=== PATIENT | male | born 1965 | race Caucasian/White ===

== ENCOUNTER 2018-08-24 02:14 | Emergency (ER) | payer OTHER ==
[~2018-08-24] VITALS: Ht 170.2 cm; Wt 102.1 kg
[~2018-08-24 02:14] MED LIST: NAPR-682 PO; ORPH100T PO
[2018-08-24] MEDS ORDERED: IV NORMAL SALINE 1000ML BAG 1,000 ML IV ONE (03:15)
[2018-08-24] MEDS ORDERED: KETOROLAC 15 MG/ML VIAL. IV ONE (03:30)
--- NOTE | 2018-08-24 03:50 | PHYS DOC ---
Past Medical History Past Medical History: Hypertension, Other Additional Past Medical Histor: SLEEP APNEA Past Surgical History: Other Additional Past Surgical Histo: WISDOM TEETH Alcohol Use: Occasionally Drug Use: None Adult General Chief Complaint Chief Complaint: FEVER HPI HPI Patient is a 52 year old male who presents with myalgias, arthralgias, fatigue and intermittent daily fever for 4 days. Patient reports fever 104 prior to ED arrival. Tylenol taken with improvement of symptoms. Patient was evaluated by his PCP on Monday and diagnosed with flulike illness. He was reevaluated 2 days ago at an urgent care and was diagnosed with an upper respiratory tract infe ction was placed on prednisone. Patient denies neck pain, stiffness, rash, sore throat, shortness of breath, abdominal pain, urinary frequency urgency dysuria, or insect bite. No other acute symptoms or complaints. Review of Systems Review of Systems Review symptoms as per history of present illness. All other systems were reviewed and found to be within normal limits, except as documented in this note. Current Medications Current Medications Current Medications Medications (Trade) Dose Ordered Sig/Noemi Start Time Stop Time Status Last Admin Dose Admin Ketorolac Tromethamine (Toradol 15mg Vial) 15 mg 1X ONCE 08/24/18 03:30 08/24/18 03:31 DC 08/24/18 03:53 15 MG Potassium Chloride (Klor-Con) 40 meq 1X ONCE 08/24/18 05:30 08/24/18 05:31 DC 08/24/18 05:34 40 MEQ Sodium Chloride 1,000 ml @ 1,000 mls/hr 1X ONCE 08/24/18 03:15 08/24/18 04:14 DC 08/24/18 03:54 1,000 MLS/HR Allergies Allergies Allergies Coded Allergies Type Severity Reaction Last Updated Verified aspirin Allergy Intermediate 02/03/16 Yes pentazocine Allergy Intermediate 02/03/16 Yes Physical Exam Physical Exam Constitutional: Well developed, well nourished, no acute distress, non-toxic appearance. [] HENT: Normocephalic, no sinus tenderness, bilateral external ears normal, oropharynx moist, nose normal. [] Eyes: PERRLA, EOMI, conjunctiva normal, no discharge. [] Neck: Normal range of motion, no tenderness, supple, no stridor. [] Cardiovascular:Heart rate regular rhythm, no murmur [] Lungs & Thorax: Bilateral breath sounds clear to auscultation [] Abdomen: Bowel sounds normal, soft, no tenderness. [] Skin: Warm, dry, no erythema, no rash. [] Back: No tenderness, no CVA tenderness. [] Extremities: No tenderness, no edema. [] Neurologic: Alert and oriented, normal motor function, normal sensory function, no focal deficits noted. [] Psychologic: Affect normal, judgement normal, mood normal. [] Current Patient Data Vital Signs Vital Signs Date Time Temp Pulse Resp B/P (MAP) Pulse Ox O2 Delivery O2 Flow Rate FiO2 08/24/18 04:57 80 117/63 (81) 94 Room Air 08/24/18 04:00 99.8 99.8 08/24/18 02:45 17 Lab Values Laboratory Tests Test 08/24/18 03:45 08/24/18 04:35 White Blood Count 7.3 x10^3/uL (4.0-11.0) Red Blood Count 5.06 x10^6/uL (4.30-5.70) Hemoglobin 14.4 g/dL (13.0-17.5) Hematocrit 42.8 % (39.0-53.0) Mean Corpuscular Volume 85 fL (79-100) Mean Corpuscular Hemoglobin 29 pg (25-35) Mean Corpuscular Hemoglobin Concent 34 g/dL (31-37) Red Cell Distribution Width 15.5 % (11.5-14.5) H Platelet Count 56 x10^3/uL (140-400) L Neutrophils (%) (Auto) 82 % (31-73) H Lymphocytes (%) (Auto) 13 % (24-48) L Monocytes (%) (Auto) 5 % (0-9) Eosinophils (%) (Auto) 0 % (0-3) Basophils (%) (Auto) 1 % (0-3) Neutrophils # (Auto) 6.0 x10^3uL (1.8-7.7) Lymphocytes # (Auto) 0.9 x10^3/uL (1.0-4.8) L Monocytes # (Auto) 0.4 x10^3/uL (0.0-1.1) Eosinophils # (Auto) 0.0 x10^3/uL (0.0-0.7) Basophils # (Auto) 0.0 x10^3/uL (0.0-0.2) Sodium Level 129 mmol/L (136-145) L Potassium Level 2.9 mmol/L (3.5-5.1) *L Chloride Level 92 mmol/L (98-107) L Carbon Dioxide Level 23 mmol/L (21-32) Anion Gap 14 (6-14) Blood Urea Nitrogen 23 mg/dL (8-26) Creatinine 1.7 mg/dL (0.7-1.3) H Estimated GFR (Cockcroft-Gault) 42.4 BUN/Creatinine Ratio 14 (6-20) Glucose Level 129 mg/dL (70-99) H Calcium Level 8.2 mg/dL (8.5-10.1) L Total Bilirubin 3.7 mg/dL (0.2-1.0) H Aspartate Amino Transferase (AST) 121 U/L (15-37) H Alanine Aminotransferase (ALT) 139 U/L (16-63) H Alkaline Phosphatase 245 U/L (46-116) H C-Reactive Protein, Quantitative 104.3 mg/L (0-3.3) H Total Protein 6.1 g/dL (6.4-8.2) L Albumin 3.1 g/dL (3.4-5.0) L Albumin/Globulin Ratio 1.0 (1.0-1.7) Heterophil Agglutinins Negative (NEGATIVE) Urine Collection Type Unknown Urine Color [place] Urine Clarity Cloudy Urine pH 6.0 Urine Specific [place] 1.020 Urine Protein 30 mg/dL (NEG-TRACE) Urine Glucose (UA) Negative mg/dL (NEG) Urine Ketones (Stick) Trace mg/dL (NEG) Urine Blood Negative (NEG) Urine Nitrite Negative (NEG) Urine Bilirubin Moderate (NEG) Urine Urobilinogen Dipstick 2.0 mg/dL (0.2 mg/dL) Urine Leukocyte Esterase Trace (NEG) Urine RBC 0 /HPF (0-2) Urine WBC 1-4 /HPF (0-4) Urine Squamous Epithelial Cells Occ /LPF Urine Transitional Epithelial Cells Occ /LPF Urine Amorphous Sediment Present /HPF Urine Bacteria 0 /HPF (0-FEW) Urine Hyaline Casts Few /HPF Urine Granular Casts Few /HPF Urine Mucus Slight /LPF Laboratory Tests 08/24/18 03:45 Laboratory Tests 08/24/18 03:45 EKG EKG [] Radiology/Procedures Radiology/Procedures [CT head: No acute findings per radiology report Chest x-ray: No acute findings per radiology report CT abdomen pelvis: No acute abnormalities per radiology report] Course & Med Decision Making Course & Med Decision Making Pertinent Labs and Imaging studies reviewed. (See chart for details) [Patient with multiple nonspecific symptoms and intermittent fever 5 days. Review of initial labs and imaging show elevation of LTs and bilirubin without evidence of discrete source of infection. Hepatitis panel ordered and will not bd run in lab for several hours.. Patient will be discharged home and results called to this morning. Instructions are to follow-up with PCP later today or Monday for reevaluation..] Dragon Disclaimer Dragon Disclaimer This electronic medical record was generated, in whole or in part, using a voice recognition dictation system. Departure Departure Impression: Primary Impression: Fever Additional Impressions: Myalgia Elevated bilirubin Hypokalemia Disposition: HOME, SELF-CARE Condition: STABLE Referrals: UNKNOWN PCP NAME (PCP) Patient Instructions: Fever, Adult, [id number], Hypokalemia-Brief Additional Instructions: Please go home and rest, increase fluids continue ibuprofen for treatment of fever and body aches. Take potassium daily for the next 3 days and follow-up with your PCP later today or Monday to review ED labs and studies and for reevaluation. Return to the ED if he develop new or worsening symptoms. Scripts Potassium Chloride (POTASSIUM CHLORIDE) 20 Meq Tablet.er 20 MEQ PO DAILY, #4 TAB.SR Prov: MICKEY MANCUSO DO 08/24/18 Problem Qualifiers MICKEY MANCUSO DO August 24, 2018 03:50
[2018-08-24 03:57] LABS: BASO % 1 % (0-3); EOS % 0 % (0-3); HEMATOCRIT 42.8 % (39.0-53.0); HEMOGLOBIN 14.4 g/dL (13.0-17.5); LYMPH # 0.9 x10^3/uL (1.0-4.8); LYMPH % 13 % (24-48); MEAN CORPUSCULAR HEMOGLOBIN 29 pg (25-35); MEAN CORPUSCULAR HGB CONC 34 g/dL (31-37); MEAN CORPUSCULAR VOLUME 85 fL (79-100); MONO # 0.4 x10^3/uL (0.0-1.1); MONO % 5 % (0-9); NEUT % 82 % (31-73); PLATELET COUNT 56 x10^3/uL (140-400); RED BLOOD COUNT 5.06 x10^6/uL (4.30-5.70); RED CELL DISTRIBUTION WIDTH 15.5 % (11.5-14.5); WHITE BLOOD COUNT 7.3 x10^3/uL (4.0-11.0)
--- NOTE | 2018-08-24 03:58 | RAD ---
RS Compliance Statement: One or more of the following individualized dose reduction techniques were utilized for this examination: 1. Automated exposure control 2. Adjustment of the mA and/or kV according to patient size 3. Use of iterative reconstruction technique CT HEAD WITHOUT CONTRAST History: Fever. Comparison: None. Procedure: Axial images are obtained of the head from the skull base through the vertex without IV contrast. Findings: The ventricles and sulci are normal for the patient's age. No mass-effect, midline shift, hemorrhage, extra-axial fluid collection, or obvious acute infarction is identified. Basilar cisterns are patent. Bone windows demonstrate no acute calvarial abnormality. The visualized paranasal sinuses are clear. Mastoid air cells are well aerated. IMPRESSION: No acute intracranial abnormality. Electronically signed by: Shan Linares MD (08/24/2018 3:55 AM) [facility]
--- NOTE | 2018-08-24 04:04 | RAD ---
CHEST AP ONLY Clinical Indication: Fever Comparison: None. Findings: The cardiomediastinal silhouette is normal. Lungs are clear. There is no pneumothorax. No pleural effusion is appreciated. No acute bone abnormality. IMPRESSION: No acute cardiopulmonary process. Electronically signed by: Shan Linares MD (08/24/2018 4:01 AM) [facility]
[2018-08-24 04:43] LABS: BILIRUBIN,URINE MODERATE (NEG); CLARITY,URINE CLOUDY; COLOR,URINE ORANGE; NITRITE,URINE NEGATIVE (NEG); PROTEIN,URINE 30 mg/dL (NEG-TRACE)
[2018-08-24 04:48] LABS: ALBUMIN 3.1 g/dL (3.4-5.0); C-REACTIVE PROTEIN 104.3 mg/L (0-3.3); CALCIUM 8.2 mg/dL (8.5-10.1); CREATININE 1.7 mg/dL (0.7-1.3); GFR 42.4; TOTAL BILIRUBIN 3.7 mg/dL (0.2-1.0); TOTAL PROTEIN 6.1 g/dL (6.4-8.2)
[2018-08-24 04:49] LABS: POTASSIUM 2.9 mmol/L (3.5-5.1)
[2018-08-24 04:54] LABS: BACTERIA,URINE 0 /HPF (0-FEW); RBC,URINE 0 /HPF (0-2); SQUAMOUS EPITHELIAL CELL,UR OCC /LPF
[2018-08-24 04:55] LABS: AMORPHOUS SEDIMENT,UR PRESENT /HPF; GRANULAR CASTS,URINE FEW /HPF; HYALINE CASTS, URINE FEW /HPF
[2018-08-24 05:22] LABS: MONONUCLEOSIS PATIENT NEGATIVE (NEGATIVE)
[2018-08-24] MEDS ORDERED: POTASSIUM CHLORIDE 20 MEQ TABLET.ER. PO ONE (05:30)
--- NOTE | 2018-08-24 05:43 | RAD ---
PQRS Compliance Statement: One or more of the following individualized dose reduction techniques were utilized for this examination: 1. Automated exposure control 2. Adjustment of the mA and/or kV according to patient size 3. Use of iterative reconstruction technique CT ABDOMEN PELVIS WO CONTRAST Clinical Indication: Abdominal pain, fever. Comparison: None. Technique: Helical CT imaging of the abdomen and pelvis is performed without IV or oral contrast. Findings: Evaluation of solid organs and bowel is limited without oral and IV contrast, decreasing sensitivity for detection of pathology. Mild atelectasis in the bilateral lower lobes. Small bulla are seen in the lung bases. Calcified granuloma left lower lobe. Cardiac size normal. Calcified granulomas in the liver and spleen. Minimal fatty infiltration of the liver. Gallbladder is contracted. Pancreas, adrenal glands, and abdominal aorta caliber are normal. There are multiple subcentimeter retroperitoneal lymph nodes. No renal or ureteral calculus. No hydronephrosis. Stomach unremarkable. No dilated small bowel. No colon wall thickening. The appendix is normal. No abdominal adenopathy or free fluid. Bilateral inguinal lymph nodes may be reactive. Urinary bladder is normal. Prostate and seminal vesicles are normal. No pelvic free fluid. Vacuum disc phenomenon L4/L5. Left osteitis pubis. IMPRESSION: 1. No acute abdominal or pelvic abnormality. 2. Minimal fatty infiltration of the liver. 3. Mild atelectasis in the bilateral lower lobes. Electronically signed by: Shan Linares MD (08/24/2018 5:40 AM) [facility]
[2018-08-24 06:02] VITALS: BP 123/56
[2018-08-24] MEDS ORDERED: POTA20TA82 PO (06:07)
== END 2018-08-24 06:15 | disposition home or self-care (01) ==
LOC: ER 02:14
DX: M79.10 Myalgia, unspecified site (principal); R53.83 Other fatigue; R50.9 Fever, unspecified; E80.7 Disorder of bilirubin metabolism, unspecified; E87.6 Hypokalemia; I10 Essential (primary) hypertension; J98.11 Atelectasis; Z88.6 Allergy status to analgesic agent
CPT/HCPCS: 36415; 70450; 71045; 74176; 80053; 81001; 85025; 86140; 86308; 86705; 86709; 86803; 87086; 87340; 96374; 99285; J1885; J7030

== ENCOUNTER 2018-08-25 18:42 | Inpatient (IN) | payer OTHER ==
[~2018-08-25] VITALS: Ht 172.7 cm; Wt 107.2 kg
[~2018-08-25 18:42] MED LIST changes: +POTA20TA82 PO
[2018-08-25] MEDS ORDERED: IV NORMAL SALINE 1000ML BAG 1,000 ML IV ONE ×4 (19:15→21:15)
[2018-08-25] MEDS ORDERED: IBUPROFEN 200 MG TABLET. PO ONE (19:45)
[2018-08-25 20:05] LABS: BASO % 0 % (0-3); EOS % 0 % (0-3); HEMATOCRIT 40.8 % (39.0-53.0); LYMPH # 0.1 x10^3/uL (1.0-4.8); LYMPH % 1 % (24-48); MEAN CORPUSCULAR HEMOGLOBIN 30 pg (25-35); MEAN CORPUSCULAR HGB CONC 34 g/dL (31-37); MEAN CORPUSCULAR VOLUME 86 fL (79-100); MONO # 0.1 x10^3/uL (0.0-1.1); MONO % 2 % (0-9); NEUT # 6.1 x10^3uL (1.8-7.7); NEUT % 97 % (31-73); RED BLOOD COUNT 4.74 x10^6/uL (4.30-5.70); RED CELL DISTRIBUTION WIDTH 15.7 % (11.5-14.5); WHITE BLOOD COUNT 6.2 x10^3/uL (4.0-11.0)
[2018-08-25 20:13] LABS: PROTHROMBIN TIME PATIENT 13.4 SEC (11.7-14.0)
[2018-08-25 20:22] LABS: PLATELET COUNT 17 x10^3/uL (140-400)
[2018-08-25 20:26] LABS: % BANDS 24 % (0-9); % LYMPHS 5 % (24-48); % METAS 3 % (0-0); % SEGS 68 % (35-66); PLT ESTIMATE DECREASED (ADEQUATE)
[2018-08-25 20:27] LABS: CALCIUM 7.6 mg/dL (8.5-10.1); CREATININE 3.9 mg/dL (0.7-1.3); GFR 16.3; POTASSIUM 3.7 mmol/L (3.5-5.1)
[2018-08-25 20:29] LABS: TOXIC GRANULATION SLIGHT; TOXIC VACUOLATION MOD
[2018-08-25 20:30] LABS: MONONUCLEOSIS PATIENT NEGATIVE (NEGATIVE)
[2018-08-25] MEDS ORDERED: cefTRIAXone IV Push 1 GM VIAL. IVP ONE (20:30)
[2018-08-25 20:31] LABS: ALBUMIN 2.5 g/dL (3.4-5.0); ALBUMIN/GLOBULIN RATIO 0.7 (1.0-1.7); MAGNESIUM 1.3 mg/dL (1.8-2.4); TOTAL BILIRUBIN 4.7 mg/dL (0.2-1.0)
[2018-08-25 20:55] LABS: INFLUENZA A PATIENT NEGATIVE (NEGATIVE); INFLUENZA B PATIENT NEGATIVE (NEGATIVE)
[2018-08-25] MEDS ORDERED: AZTREONAM IV Push 2 GM VIAL. IVP ONE (21:15)
[2018-08-25] MEDS ORDERED: ACETAMINOPHEN 325 MG TABLET. PO PRN (21:15)
[2018-08-25] MEDS ORDERED: ONDANSETRON PF 4 MG/2 ML VIAL. IV PRN (21:15)
[2018-08-25] MEDS ORDERED: MAGNESIUM SULFATE 2GM 50 ML IV ONE (21:15)
[2018-08-25] MEDS ORDERED: PIPERACILLIN/TAZOBACTAM 4.5 GM in IV NORMAL SALINE 100ML 100 ML IV ONE (21:15)
[2018-08-25] MEDS ORDERED: VANCOMYCIN 2 GM in IV NORMAL SALINE 500ML BAG 500 ML IV ONE (21:30)
[2018-08-25] MEDS ORDERED: MEROPENEM 500 MG in IV NORMAL SALINE 50ML 50 ML IV ONE (22:00)
--- NOTE | 2018-08-25 22:19 | PHYS DOC ---
Past Medical History Past Medical History: Hypertension, Other Additional Past Medical Histor: SLEEP APNEA, DDD, Hemochromatosis Past Surgical History: Other Additional Past Surgical Histo: WISDOM TEETH Additional Information: Nonsmoker Alcohol Use: Occasionally Drug Use: None Adult General Chief Complaint Chief Complaint: MULTIPLE COMPLAINTS HPI HPI Patient is a 52 year old male who presents with fever and diarrhea and confusion for the past 48 hours. In addition, the patient has had ongoing fever and cough for the past 2 weeks. Patient was prescribed prednisone at urgent care on Monday and diagnosed with a upper respiratory tract infection. Patient presented to [facility] emergency department on 08/24/18 for continued fever, myalgias, and arthralgias. Head and pelvis CT along with chest x-ray without acute process at that time. Patient was hypokalemic and given potassium supplementation which he subsequently vomited after leaving the emergency department. Patient's reports increased confusion today evidenced by inappropriate responses to many of her questions. Patient is in mild lower abdominal pain at this time. Review of systems is positive for shortness of breath, dry cough and oliguria with dark urine which the patient states has gotten worse over the last 24 hours. Patient admits to a tick bite 2-3 weeks ago. In addition, patient admits to a systemic rash s/p exposure to poison [place] that occurred 2 weeks ago for which patient was seen at [facility]. Patient also report recent treatment with Bactrim. Denies known sick contacts. Review of Systems Review of Systems Constitutional: Reports fever and chills on going for 2-3 weeks.] Eyes: Denies change in visual acuity, redness, or eye pain [] HENT: Mild sore throat and congestion.[] Respiratory: Endorses dry cough and shortness of breath [] Cardiovascular: Denies any chest pain or palpitations. GI: Endorses diarrhea for 1 week. 1 episode of non-bloody vomitus. : Denies dysuria or hematuria [] Musculoskeletal: Denies back pain or joint pain [] Integument: Denies any current rash or skin lesions [] Neurologic: Denies headache, focal weakness or sensory changes [] Complete systems were reviewed and found to be within normal limits, except as documented in this note. Current Medications Current Medications Current Medications Medications (Trade) Dose Ordered Sig/Noemi Start Time Stop Time Status Last Admin Dose Admin Ceftriaxone Sodium (Rocephin) 1 gm 1X ONCE 08/25/18 20:30 08/25/18 20:31 DC 08/25/18 20:36 1 GM Ibuprofen (Motrin) 600 mg 1X ONCE 08/25/18 19:45 08/25/18 19:49 DC 08/25/18 20:38 600 MG Sodium Chloride 1,000 ml @ 1,000 mls/hr 1X ONCE 08/25/18 21:00 08/25/18 21:59 DC 08/25/18 23:51 1,000 MLS/HR Allergies Allergies Allergies Coded Allergies Type Severity Reaction Last Updated Verified aspirin Allergy Intermediate 02/03/16 Yes pentazocine Allergy Intermediate 02/03/16 Yes Physical Exam Physical Exam Constitutional: 52 yo male appears uncomfortable and ill, HENT: Normocephalic, atraumatic, bilateral TMs normal, oropharynx moist, no oral exudates, nose normal. [] Eyes: EOMI, conjunctiva normal, no discharge. [] Neck: Full ROM, no meningeal signs Cardiovascular: Tachypnea. Heart rate regular rhythm, no murmur [] Lungs & Thorax: Bilateral breath sounds clear to auscultation [] Abdomen: Soft, no tenderness, no masses, no pulsatile masses. [] Skin: Warm, clammy. no erythema, no rash. [] Extremities: No tenderness, ROM intact, no edema. [] Neurologic: Alert and oriented X 3, normal motor function, normal sensory function, no focal deficits noted. [] Psychologic: Affect normal, judgement normal, mood normal. [] Current Patient Data Vital Signs Vital Signs Date Time Temp Pulse Resp B/P (MAP) Pulse Ox O2 Delivery O2 Flow Rate FiO2 08/25/18 19:01 100.3 84 28 123/56 (78) 94 Room Air 100.3 Lab Values Laboratory Tests Test 08/25/18 19:45 08/25/18 20:28 08/25/18 20:30 White Blood Count 6.2 x10^3/uL (4.0-11.0) Red Blood Count 4.74 x10^6/uL (4.30-5.70) Hemoglobin 14.0 g/dL (13.0-17.5) Hematocrit 40.8 % (39.0-53.0) Mean Corpuscular Volume 86 fL (79-100) Mean Corpuscular Hemoglobin 30 pg (25-35) Mean Corpuscular Hemoglobin Concent 34 g/dL (31-37) Red Cell Distribution Width 15.7 % (11.5-14.5) H Platelet Count 17 x10^3/uL (140-400) *L Neutrophils (%) (Auto) 97 % (31-73) H Lymphocytes (%) (Auto) 1 % (24-48) L Monocytes (%) (Auto) 2 % (0-9) Eosinophils (%) (Auto) 0 % (0-3) Basophils (%) (Auto) 0 % (0-3) Neutrophils # (Auto) 6.1 x10^3uL (1.8-7.7) Lymphocytes # (Auto) 0.1 x10^3/uL (1.0-4.8) L Monocytes # (Auto) 0.1 x10^3/uL (0.0-1.1) Eosinophils # (Auto) 0.0 x10^3/uL (0.0-0.7) Basophils # (Auto) 0.0 x10^3/uL (0.0-0.2) Segmented Neutrophils % 68 % (35-66) H Band Neutrophils % 24 % (0-9) H Lymphocytes % 5 % (24-48) L Metamyelocytes % 3 % (0-0) H Toxic Granulation Slight Toxic Vacuolation Mod Platelet Estimate Decreased (ADEQUATE) Erythrocyte Sedimentation Rate 11 (0-15) Prothrombin Time 13.4 SEC (11.7-14.0) Prothrombin Time INR 1.1 (0.8-1.1) PTT 38 SEC (24-38) Sodium Level 128 mmol/L (136-145) L Potassium Level 3.7 mmol/L (3.5-5.1) Chloride Level 91 mmol/L (98-107) L Carbon Dioxide Level 20 mmol/L (21-32) L Anion Gap 17 (6-14) H Blood Urea Nitrogen 45 mg/dL (8-26) H Creatinine 3.9 mg/dL (0.7-1.3) H Estimated GFR (Cockcroft-Gault) 16.3 BUN/Creatinine Ratio 12 (6-20) Glucose Level 94 mg/dL (70-99) Lactic Acid Level 5.3 mmol/L (0.4-2.0) *H Calcium Level 7.6 mg/dL (8.5-10.1) L Magnesium Level 1.3 mg/dL (1.8-2.4) L Total Bilirubin 4.7 mg/dL (0.2-1.0) H Aspartate Amino Transferase (AST) 233 U/L (15-37) H Alanine Aminotransferase (ALT) 127 U/L (16-63) H Alkaline Phosphatase 215 U/L (46-116) H Ammonia < 10 mcmol/L (11-34) L Lactate Dehydrogenase 1240 U/L (85-227) H Creatine Kinase 284 U/L (39-308) Creatine Kinase MB (Mass) 1.7 ng/mL (0.0-3.6) Creatine Kinase MB Relative Index 0.6 % (0-4) Troponin I Quantitative 0.111 ng/mL (0.000-0.055) C-Reactive Protein, Quantitative 242.9 mg/L (0-3.3) H Total Protein 6.0 g/dL (6.4-8.2) L Albumin 2.5 g/dL (3.4-5.0) L Albumin/Globulin Ratio 0.7 (1.0-1.7) L Lipase 425 U/L (73-393) H Ethyl Alcohol Level < 10 mg/dL (0-10) Heterophil Agglutinins Negative (NEGATIVE) Influenza Type A Antigen Negative (NEGATIVE) Influenza Type B Antigen Negative (NEGATIVE) Group A Streptococcus Rapid Negative (NEGATIVE) Laboratory Tests 08/25/18 19:45 Laboratory Tests 08/25/18 19:45 EKG EKG 08/25/2018 @19:22 showed sinus rhythm at 85bpm. No St elevations or other abnormalities. Radiology/Procedures Radiology/Procedures 2 view chest x ray ordered. (preliminary reading by ED physician shows bibasilar atelectasis. No consolidations or effusions appreciated.) Course & Med Decision Making Course & Med Decision Making Mr. Kirk is a 52 yo male who presents with 2 weeks of on going fever, confusion, and other intermittent flu-like symptoms. Patient appeared dehydrated and short of breath on presentation. Patient recently seen for same in early AM on 08/24/18. Previous workup reviewed. Labs demonstrated with bandemia, se sav thrombocytopenia, worsening renal function, elevated LFTs/bilirubin, and elevated LDH. Upon further questioning, patient admitted to tick bite 2-3 weeks ago and a systemic rash 2 weeks that was originally attributed to poison [place] exposure. SIRS criteria met. Lactic acid >4. No definitive source of infection but given worsening condition now with multiple organ systems affected. Empiric antibiotic given with Rocephin, Vanco, and Aztreonam. Patient met criteria for septic shock criteria. BP stable. Patient requiring ICU admission for further evaluation and treatment. Discussed with Dr. Laboy (hospitalist) who is in agreement with admission. Discussed case with Dr. Lujan (ID) who requests Daptomycin, Doxycycline, and Meropenem. Ehrlichia panel requested and ordered. Discussed case with Dr. Flaherty (hematology) who requested repeat labs and will look at peripheral smear. Discussed findings and plan with patient and family, who acknowledge understanding and agreement. Dragon Disclaimer Dragon Disclaimer This electronic medical record was generated, in whole or in part, using a voice recognition dictation system. Departure Departure Impression: Primary Impression: Septic shock Additional Impressions: Thrombocytopenia Hypomagnesemia Elevated LFTs Acute renal failure Disposition: 09 ADMITTED INPATIENT Admitting Physician: Jose Rice Condition: GUARDED Referrals: UNKNOWN PCP NAME (PCP) Date and Time of Reassessment Date: August 25, 2018 Time: 22:15 Fluid Challenge Is the fluid challenge complet: No Vital Signs Vital Signs: Vital Signs Date Time Temp Pulse Resp B/P (MAP) Pulse Ox O2 Delivery O2 Flow Rate FiO2 08/25/18 19:01 100.3 84 28 123/56 (78) 94 Room Air 100.3 Temperature Source: Axillary Respirations Respiratory Effort: Shortness of breath Respiratory Pattern: Hyperpnea Cardiovascular Pulse Rhythm: Regular Heart: Nml rate, reg. rhythm Lung Sounds Breath Sounds: Clear Capillary Refil Capillary Refill: Lt Hand > 3 seconds Peripheral Pulse Pulse Location: Radial Pulse Strength: Normal (2+) Pulse Assessment Method: Monitor Integumentary Skin: Warm Skin Moisture: Clammy Skin Turgor: Normal Skin Color: warm, dry, moist Fingernail Color: WNL Critical Care Time Critical care time was 45 minutes which includes time at bedside, spent in discussion of patient's care with specialists and/or family members, with interpretation of laboratory and/or radiological studies and is exclusive of procedures. Problem Qualifiers Additional Impressions: Acute renal failure Acute renal failure type: unspecified Qualified Codes: N17.9 - Acute ki dney failure, unspecified KAVYA CARPENTER DO August 25, 2018 22:19
[2018-08-25 22:31] LABS: BILIRUBIN,URINE MODERATE (NEG); CLARITY,URINE CLOUDY; COLOR,URINE AMBER; NITRITE,URINE NEGATIVE (NEG); PH,URINE 5.5; PROTEIN,URINE 100 mg/dL (NEG-TRACE)
[2018-08-25 22:36] LABS: BARBITURATES NEG (NEG); BENZODIAZEPINES NEG (NEG); CANNABINOIDS NEG (NEG); COCAINE NEG (NEG); METHADONE NEG (NEG); OPIATES NEG (NEG); PHENCYCLIDINE NEG (NEG)
[2018-08-25 22:38] LABS: AMPHETAMINE/METHAMPHETAMINE NEG (NEG)
[2018-08-25 22:39] LABS: AMORPHOUS SEDIMENT,UR PRESENT /HPF; BACTERIA,URINE 0 /HPF (0-FEW); RBC,URINE OCC /HPF (0-2); SQUAMOUS EPITHELIAL CELL,UR OCC /LPF; WBC,URINE OCC /HPF (0-4)
[2018-08-25 22:45] VITALS: BP 136/62
--- NOTE | 2018-08-25 22:45 | NUR ---
pt admitted to room 110 from ED at this time, accompanied by . pt has moments of confusion and mumbling sentences that don't make sense, which is new this admission. with help of , able to complete admission requirements without difficulty. VSS, on room air. 3rd liter of NS and IV Mag given upon admission to ICU, not given in ED. pt and oriented to room, call light, unit routines, diet, medications and plan of care; both voice understanding. since pt's new onset confusion, is opting to stay overnight. will pass on in report, will continue to closely monitor.
[2018-08-26] VITALS (23 sets, daily range): BP systolic 89–142; BP diastolic 46–72
[2018-08-26] MEDS ORDERED: FEXO180T81 PO (03:19)
[2018-08-26] MEDS ORDERED: PRED20TA PO (03:19)
[2018-08-26] MEDS ORDERED: HYDR12.58 PO (03:19)
[2018-08-26 03:40] LABS: BASO % 0 % (0-3); EOS % 0 % (0-3); HEMATOCRIT 39.3 % (39.0-53.0); HEMOGLOBIN 13.3 g/dL (13.0-17.5); LYMPH # 0.1 x10^3/uL (1.0-4.8); LYMPH % 2 % (24-48); MEAN CORPUSCULAR HEMOGLOBIN 29 pg (25-35); MEAN CORPUSCULAR HGB CONC 34 g/dL (31-37); MEAN CORPUSCULAR VOLUME 86 fL (79-100); MONO % 1 % (0-9); NEUT # 6.4 x10^3uL (1.8-7.7); NEUT % 98 % (31-73); RED BLOOD COUNT 4.57 x10^6/uL (4.30-5.70); RED CELL DISTRIBUTION WIDTH 15.9 % (11.5-14.5); WHITE BLOOD COUNT 6.5 x10^3/uL (4.0-11.0)
[2018-08-26 03:48] LABS: PLATELET COUNT 17 x10^3/uL (140-400)
[2018-08-26 03:49] LABS: PROTHROMBIN TIME PATIENT 14.2 SEC (11.7-14.0)
[2018-08-26 03:57] LABS: ALBUMIN 2.1 g/dL (3.4-5.0); ALBUMIN/GLOBULIN RATIO 0.7 (1.0-1.7); CALCIUM 6.8 mg/dL (8.5-10.1); CREATININE 4.7 mg/dL (0.7-1.3); DIRECT BILIRUBIN 4.2 mg/dL (0.0-0.2); GFR 13.1; POTASSIUM 3.5 mmol/L (3.5-5.1); TOTAL BILIRUBIN 4.7 mg/dL (0.2-1.0); TOTAL PROTEIN 5.3 g/dL (6.4-8.2)
--- NOTE | 2018-08-26 05:10 | PDOC2 ---
CONSULT Date of Consult Date of Consult DATE: 08/26/18 TIME: 04:37 Reason for Consult Reason for Consult: Thrombocytopenia/Renal failure and elevated LFT's Referring Physician Referring Physician: Dr. Lantigua Source Source: Caregiver, Chart review, Patient History of Present Illness Reason for Visit: 52 yo male with pmh sig of hemochromatosis, KIKI, and HTN presented to the hospital with fevers for about 1 week. He states taht about 1 week ago he was more tired and fatigue. On 's Day he had a fever of 101. Monday afternoon, he saw his primary and was tested for the flu that was negative, but did not have anyother blood drawn. He was instructed to take Ibuprofen alternating with Tylenol for the fever. He did that and Monday did not have a fever. On Monday he states that he had a severe headache and states in hindsight the entire few days prior it was apparent but seemed worse on . He went to Urgent care in [place] and was given prednisone 20mg X5 days at that time. He states that bloodwork was performed but does not know of any of the results. , he went to work with a mild headache and was tired and fatigued, but shortly after diner he went to bed. night, he was found to have a fever of 104 and took ibuprofen with it improving in an hour to 103. Monday he presented to the ED at [facility] and was evaluated. He had a cbc that showed a wbc of 7.3, hgb 14/4 and plt count of 56. His potassium was low at 2.9 and adminstered potassium. Also on labs his bilirubin was 3.7 with AST 121, ALT 139, ALK phos 245. Hepatitis b and c were tested and negative. [place] and Flue were tested and negative as well. CT Abd/pelvis without contrast was performed and there were no acute findings with minimal fatty liver and a contracted gallbladder. He was discharged and returned on Monday (08/25) a repeat cbc was performed that showed his wbc of 6.2, hgb 14 and plt count 17, coags were normal with elevated LFT's. His bili w as 4.7, AST 233, ALT 127, ALK phos 215 with lipase 425. He was started on broad spectrum abx and admitted. With the low plt count, I was called to evaluate. At the time I spoke with Dr. Lantigua and asked an LDH be ordered which was elevated at 1240 and I came into evaluate him. I asked Dr. Lantigua to repeat his cbc, cmp, coags, direct bilirubin as I was coming in. The patient also stated that on Monday, he had several loose stools and denies any blood in the stool. He states that about 3 weeks ago he developed a rash on his Left lower extremity that he thinks was poison Lexie. He states that the rash spread across his body and was given Bactrim for treatment. He denies any previous exposure to Bactrim and any other new medications except the prednisone, frequent ibuprofen and tylenol recently. For the hemochromatosis, he follows with Dr. Iverson at [facility] and has been undergoing phlebotomy. His last phlebotomy was in late June. Past Medical History Past Medical History KIKI Hemochromatosis HTN Cardiovascular: HTN Pulmonary: No pertinent hx GI: No pertinent hx Heme/Onc: Hemochromatosis Hepatobiliary: No pertinent hx Family History Family History Dad with hemochromatosis, of inoperable brain tumor Social History Social History Lives at home with and three sons. 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 He denies any etoh, drugs and smoking Current Medications Current Medications Current Medications Sodium Chloride 1,000 ml @ 1,000 mls/hr 1X ONCE IV Last administered on 08/25/18 20:38; Start 08/25/18 at 19:15; Stop 08/25/18 at 20:14; Status DC Ibuprofen (Motrin) 600 mg 1X ONCE PO Last administered on 08/25/18 20:38; Start 08/25/18 at 19:45; Stop 08/25/18 at 19:49; Status DC Sodium Chloride 1,000 ml @ 1,000 mls/hr 1X ONCE IV Last administered on 08/25/18 20:30; Start 08/25/18 at 20:30; Stop 08/25/18 at 21:29; Status DC Ceftriaxone Sodium (Rocephin) 1 gm 1X ONCE IVP Last administered on 08/25/18at 20:36; Start 08/25/18 at 20:30; Stop 08/25/18 at 20:31; Status DC Vancomycin HCl 2 gm/Sodium Chloride 500 ml @ 250 mls/hr 1X ONCE IV Last administered on 08/25/18at 23:10; Start 08/25/18 at 21:30; Stop 08/25/18 at 23:29; Status DC Sodium Chloride 1,000 ml @ 1,000 mls/hr 1X ONCE IV Last administered on 08/25/18at 23:51; Start 08/25/18 at 21:00; Stop 08/25/18 at 21:59; Status DC Piperacillin Sod/ Tazobactam Sod 4.5 gm/Sodium Chloride 100 ml @ 200 mls/hr 1X ONCE IV ; Start 08/25/18 at 21:15; Stop 08/25/18 at 21:44; Status DC Aztreonam (Azactam) 2 gm 1X ONCE IVP Last administered on 08/25/18at 21:15; Start 08/25/18 at 21:15; Stop 08/25/18 at 21:16; Status DC Magnesium Sulfate 50 ml @ 25 mls/hr 1X ONCE IV Last administered on 08/25/18at 23:51; Start 08/25/18 at 21:15; Stop 08/25/18 at 23:14; Status DC Ondansetron HCl (Zofran) 4 mg PRN Q8HRS PRN IV NAUSEA/VOMITING; Start 08/25/18 at 21:15; Stop 08/26/18 at 21:14 Acetaminophen (Tylenol) 650 mg PRN Q4HRS PRN PO FEVER; Start 08/25/18 at 21:15; Stop 08/26/18 at 21:14 Sodium Chloride 1,000 ml @ 125 mls/hr 1X ONCE IV Last administered on 08/25/18at 23:09; Start 08/25/18 at 21:15; Stop 08/26/18 at 05:14 Daptomycin 610 mg/ Sodium Chloride 50 ml @ 100 mls/hr QODAY IV ; Start 08/27/18 at 09:00 Meropenem 500 mg/ Sodium Chloride 50 ml @ 100 mls/hr 1X ONCE IV Last administered on 08/25/18at 22:12; Start 08/25/18 at 22:00; Stop 08/25/18 at 22:29; Status DC Doxycycline Hyclate 100 mg/ Dextrose 100 ml @ 50 mls/hr Q12HR IV ; Start 08/26/18 at 09:00 Active Scripts Active Potassium Chloride 20 Meq Tablet.er 20 Meq PO DAILY Orphenadrine Citrate 100 Mg Tablet.er 100 Mg PO Q12HR Anaprox Ds (Naproxen Sodium) 550 Mg Tablet 550 Mg PO Q12HR Reported Prednisone 20 Mg Tablet 1 Tab PO DAILY Hydrochlorothiazide Tablet (Hydrochlorothiazide) 12.5 Mg Tablet 12.5 Mg PO DAILY Shilpi Allergy (Fexofenadine Hcl) 180 Mg Tablet 1 Tab PO DAILY Allergies Allergies: Coded Allergies: aspirin (Verified Allergy, Intermediate, 02/03/16) pentazocine (Verified Allergy, Intermediate, 02/03/16) ROS General: YES: Chills, Fatigue, Malaise PSYCHOLOGICAL ROS: No: Anxiety, Behavioral Disorder, Concentration difficultie, Decreased libido, Depression, Disorientation, Hallucinations, Hostility, Irritablity, Memory difficulties, Mood Swings, Obsessive thoughts, Physical abuse, Sexual abuse, Sleep disturbances, Suicidal ideation, Other Eyes: No Blurry vision, No Decreased vision, No Double vision, No Dry eyes, No Excessive tearing, No Eye Pain, No Itchy Eyes, No Loss of vision, No Photophobia, No Scotomata, No Uses contacts, No Uses glasses, No Other HEENT: YES: Shannan ALLERGY AND IMMUNOLOGY: No: Hives, Insect Bite Sensitivity, Itchy/Watery Eyes, Nasal Congestion, Post Nasal Drip, Seasonal Allergies, Other Hematological and Lymphatic: YES: Brusing Respiratory: No: Cough, Hemoptysis, Orthopnea, Pleuritic Pain, Shortness of breath, SOB with excertion, Sputum Changes, Stridor, Tachypnea, Wheezing, Other Cardiovascular: No Chest Pain, No Palpitations, No Orthopnea, No Paroxysmal Noc. Dyspnea, No Edema, No Lt Headedness, No Other Gastrointestinal: Yes Diarrhea Genitourinary: No Dysuria, No Frequency, No Incontinence, No Hematuria, No Retention, No Discharge, No Urgency, No Pain, No Flank Pain, No Other, No , No , No , No , No , No , No Musculoskeletal: No Gait Disturbance, No Joint Pain, No Joint Stiffness, No Joint Swelling, No Muscle Pain, No Muscular Weakness, No Pain In:, No Swelling In:, No Other Neurological: No Behavorial Changes, No Bowel/Bladder ControlChng, No Confusion, No Dizziness, No Gait Disturbance, No Headaches, No Impaired Coord/balance, No Memory Loss, No Numbness/Tingling, No Seizures, No Speech Problems, No Tremors, No Visual Changes, No Weakness, No Other Skin: No Dry Skin, No Eczema, No Hair Changes, No Lumps, No Mole Changes, No Mottling, No Nail Changes, No Pruritus, No Rash, No Skin Lesion Changes, No Other, No Acne Physical Exam General: Alert, Oriented X3, Cooperative HEENT: PERRLA, Other (Mucos membranes are extremely dry, no obvious petechiae in mouth) Lungs: Clear to auscultation Heart: Regular rate, Normal S1, Normal S2 Abdomen: Normal bowel sounds, Soft, No tenderness Skin: Other (healing rash and excoriations on Left lower extremity. No obvious petechiae) Psych/Mental Status: Mental status NL Vitals VITALS Vital Signs Date Time Temp Pulse Resp B/P (MAP) Pulse Ox O2 Delivery O2 Flow Rate FiO2 08/26/18 04:00 99.0 85 27 114/67 (83) 93 Room Air 99.0 Labs Labs Laboratory Tests Test 08/25/18 19:45 08/25/18 20:28 08/25/18 22:22 08/26/18 00:15 White Blood Count 6.2 x10^3/uL (4.0-11.0) Red Blood Count 4.74 x10^6/uL (4.30-5.70) Hemoglobin 14.0 g/dL (13.0-17.5) Hematocrit 40.8 % (39.0-53.0) Mean Corpuscular Volume 86 fL (79-100) Mean Corpuscular Hemoglobin 30 pg (25-35) Mean Corpuscular Hemoglobin Concent 34 g/dL (31-37) Red Cell Distribution Width 15.7 % (11.5-14.5) Platelet Count 17 x10^3/uL (140-400) Neutrophils (%) (Auto) 97 % (31-73) Lymphocytes (%) (Auto) 1 % (24-48) Monocytes (%) (Auto) 2 % (0-9) Eosinophils (%) (Auto) 0 % (0-3) Basophils (%) (Auto) 0 % (0-3) Neutrophils # (Auto) 6.1 x10^3uL (1.8-7.7) Lymphocytes # (Auto) 0.1 x10^3/uL (1.0-4.8) Monocytes # (Auto) 0.1 x10^3/uL (0.0-1.1) Eosinophils # (Auto) 0.0 x10^3/uL (0.0-0.7) Basophils # (Auto) 0.0 x10^3/uL (0.0-0.2) Segmented Neutrophils % 68 % (35-66) Band Neutrophils % 24 % (0-9) Lymphocytes % 5 % (24-48) Metamyelocytes % 3 % (0-0) Toxic Granulation Slight Toxic Vacuolation Mod Platelet Estimate Decreased (ADEQUATE) Erythrocyte Sedimentation Rate 11 (0-15) Prothrombin Time 13.4 SEC (11.7-14.0) Prothromb Time International Ratio 1.1 (0.8-1.1) Activated Partial Thromboplast Time 38 SEC (24-38) Sodium Level 128 mmol/L (136-145) Potassium Level 3.7 mmol/L (3.5-5.1) Chloride Level 91 mmol/L (98-107) Carbon Dioxide Level 20 mmol/L (21-32) Anion Gap 17 (6-14) Blood Urea Nitrogen 45 mg/dL (8-26) Creatinine 3.9 mg/dL (0.7-1.3) Estimated GFR (Cockcroft-Gault) 16.3 BUN/Creatinine Ratio 12 (6-20) Glucose Level 94 mg/dL (70-99) Lactic Acid Level 5.3 mmol/L (0.4-2.0) 5.1 mmol/L (0.4-2.0) Calcium Level 7.6 mg/dL (8.5-10.1) Magnesium Level 1.3 mg/dL (1.8-2.4) Total Bilirubin 4.7 mg/dL (0.2-1.0) Aspartate Amino Transf (AST/SGOT) 233 U/L (15-37) Alanine Aminotransferase (ALT/SGPT) 127 U/L (16-63) Alkaline Phosphatase 215 U/L (46-116) Ammonia < 10 mcmol/L (11-34) Lactate Dehydrogenase 1240 U/L (85-227) Creatine Kinase 284 U/L (39-308) Creatine Kinase MB (Mass) 1.7 ng/mL (0.0-3.6) Creatine Kinase MB Relative Index 0.6 % (0-4) Troponin I Quantitative 0.111 ng/mL (0.000-0.055) 0.160 ng/mL (0.000-0.055) C-Reactive Protein, Quantitative 242.9 mg/L (0-3.3) Total Protein 6.0 g/dL (6.4-8.2) Albumin 2.5 g/dL (3.4-5.0) Albumin/Globulin Ratio 0.7 (1.0-1.7) Lipase 425 U/L (73-393) Ethyl Alcohol Level < 10 mg/dL (0-10) Heterophil Agglutinins Negative (NEGATIVE) Influenza Type A Antigen Negative (NEGATIVE) Influenza Type B Antigen Negative (NEGATIVE) Urine Collection Type Unknown Urine Color Patrizia Urine Clarity Cloudy Urine pH 5.5 Urine Specific [place] 1.020 Urine Protein 100 mg/dL (NEG-TRACE) Urine Glucose (UA) Negative mg/dL (NEG) Urine Ketones (Stick) Negative mg/dL (NEG) Urine Blood Small (NEG) Urine Nitrite Negative (NEG) Urine Bilirubin Moderate (NEG) Urine Urobilinogen Dipstick 1.0 mg/dL (0.2 mg/dL) Urine Leukocyte Esterase Negative (NEG) Urine RBC Occ /HPF (0-2) Urine WBC Occ /HPF (0-4) Urine Squamous Epithelial Cells Occ /LPF Urine Transitional Epithelial Cells Occ /LPF Urine Amorphous Sediment Present /HPF Urine Bacteria 0 /HPF (0-FEW) Urine Opiates Screen Neg (NEG) Urine Methadone Screen Neg (NEG) Urine Barbiturates Neg (NEG) Urine Phencyclidine Screen Neg (NEG) Urine Amphetamine/Methamphetamine Neg (NEG) Urine Benzodiazepines Screen Neg (NEG) Urine Cocaine Screen Neg (NEG) Urine Cannabinoids Screen Neg (NEG) Urine Ethyl Alcohol Neg (NEG) Test 08/26/18 03:15 White Blood Count 6.5 x10^3/uL (4.0-11.0) Red Blood Count 4.54 x10^6/uL (4.30-5.70) Hemoglobin 13.3 g/dL (13.0-17.5) Hematocrit 39.3 % (39.0-53.0) Mean Corpuscular Volume 86 fL (79-100) Mean Corpuscular Hemoglobin 29 pg (25-35) Mean Corpuscular Hemoglobin Concent 34 g/dL (31-37) Red Cell Distribution Width 15.9 % (11.5-14.5) Platelet Count 17 x10^3/uL (140-400) Neutrophils (%) (Auto) 98 % (31-73) Lymphocytes (%) (Auto) 2 % (24-48) Monocytes (%) (Auto) 1 % (0-9) Eosinophils (%) (Auto) 0 % (0-3) Basophils (%) (Auto) 0 % (0-3) Neutrophils # (Auto) 6.4 x10^3uL (1.8-7.7) Lymphocytes # (Auto) 0.1 x10^3/uL (1.0-4.8) Monocytes # (Auto) 0.0 x10^3/uL (0.0-1.1) Eosinophils # (Auto) 0.0 x10^3/uL (0.0-0.7) Basophils # (Auto) 0.0 x10^3/uL (0.0-0.2) Absolute Reticulocyte Count 0.030 x10^6/uL (0.020-0.120) Percent Reticulocyte Count 0.7 % (0.5-2.3) Immature Reticulocyte Fraction 0.35 (0.20-0.60) Prothrombin Time 14.2 SEC (11.7-14.0) Prothromb Time International Ratio 1.1 (0.8-1.1) Activated Partial Thromboplast Time 44 SEC (24-38) Fibrinogen 319 mg/dL (200-440) D-Dimer ([place]) 12.89 ug/mlFEU (0.00-0.50) Sodium Level 129 mmol/L (136-145) Potassium Level 3.5 mmol/L (3.5-5.1) Chloride Level 94 mmol/L (98-107) Carbon Dioxide Level 16 mmol/L (21-32) Anion Gap 19 (6-14) Blood Urea Nitrogen 53 mg/dL (8-26) Creatinine 4.7 mg/dL (0.7-1.3) Estimated GFR (Cockcroft-Gault) 13.1 BUN/Creatinine Ratio 11 (6-20) Glucose Level 80 mg/dL (70-99) Lactic Acid Level 4.9 mmol/L (0.4-2.0) Calcium Level 6.8 mg/dL (8.5-10.1) Total Bilirubin 4.7 mg/dL (0.2-1.0) Direct Bilirubin 4.2 mg/dL (0.0-0.2) Aspartate Amino Transf (AST/SGOT) 288 U/L (15-37) Alanine Aminotransferase (ALT/SGPT) 127 U/L (16-63) Alkaline Phosphatase 200 U/L (46-116) Troponin I Quantitative 0.165 ng/mL (0.000-0.055) Total Protein 5.3 g/dL (6.4-8.2) Albumin 2.1 g/dL (3.4-5.0) Albumin/Globulin Ratio 0.7 (1.0-1.7) Laboratory Tests Test 08/25/18 19:45 08/25/18 20:28 08/25/18 22:22 08/26/18 00:15 White Blood Count 6.2 x10^3/uL (4.0-11.0) Red Blood Count 4.74 x10^6/uL (4.30-5.70) Hemoglobin 14.0 g/dL (13.0-17.5) Hematocrit 40.8 % (39.0-53.0) Mean Corpuscular Volume 86 fL (79-100) Mean Corpuscular Hemoglobin 30 pg (25-35) Mean Corpuscular Hemoglobin Concent 34 g/dL (31-37) Red Cell Distribution Width 15.7 % (11.5-14.5) Platelet Count 17 x10^3/uL (140-400) Neutrophils (%) (Auto) 97 % (31-73) Lymphocytes (%) (Auto) 1 % (24-48) Monocytes (%) (Auto) 2 % (0-9) Eosinophils (%) (Auto) 0 % (0-3) Basophils (%) (Auto) 0 % (0-3) Neutrophils # (Auto) 6.1 x10^3uL (1.8-7.7) Lymphocytes # (Auto) 0.1 x10^3/uL (1.0-4.8) Monocytes # (Auto) 0.1 x10^3/uL (0.0-1.1) Eosinophils # (Auto) 0.0 x10^3/uL (0.0-0.7) Basophils # (Auto) 0.0 x10^3/uL (0.0-0.2) Segmented Neutrophils % 68 % (35-66) Band Neutrophils % 24 % (0-9) Lymphocytes % 5 % (24-48) Metamyelocytes % 3 % (0-0) Toxic Granulation Slight Toxic Vacuolation Mod Platelet Estimate Decreased (ADEQUATE) Erythrocyte Sedimentation Rate 11 (0-15) Prothrombin Time 13.4 SEC (11.7-14.0) Prothromb Time International Ratio 1.1 (0.8-1.1) Activated Partial Thromboplast Time 38 SEC (24-38) Sodium Level 128 mmol/L (136-145) Potassium Level 3.7 mmol/L (3.5-5.1) Chloride Level 91 mmol/L (98-107) Carbon Dioxide Level 20 mmol/L (21-32) Anion Gap 17 (6-14) Blood Urea Nitrogen 45 mg/dL (8-26) Creatinine 3.9 mg/dL (0.7-1.3) Estimated GFR (Cockcroft-Gault) 16.3 BUN/Creatinine Ratio 12 (6-20) Glucose Level 94 mg/dL (70-99) Lactic Acid Level 5.3 mmol/L (0.4-2.0) 5.1 mmol/L (0.4-2.0) Calcium Level 7.6 mg/dL (8.5-10.1) Magnesium Level 1.3 mg/dL (1.8-2.4) Total Bilirubin 4.7 mg/dL (0.2-1.0) Aspartate Amino Transf (AST/SGOT) 233 U/L (15-37) Alanine Aminotransferase (ALT/SGPT) 127 U/L (16-63) Alkaline Phosphatase 215 U/L (46-116) Ammonia < 10 mcmol/L (11-34) Lactate Dehydrogenase 1240 U/L (85-227) Creatine Kinase 284 U/L (39-308) Creatine Kinase MB (Mass) 1.7 ng/mL (0.0-3.6) Creatine Kinase MB Relative Index 0.6 % (0-4) Troponin I Quantitative 0.111 ng/mL (0.000-0.055) 0.160 ng/mL (0.000-0.055) C-Reactive Protein, Quantitative 242.9 mg/L (0-3.3) Total Protein 6.0 g/dL (6.4-8.2) Albumin 2.5 g/dL (3.4-5.0) Albumin/Globulin Ratio 0.7 (1.0-1.7) Lipase 425 U/L (73-393) Ethyl Alcohol Level < 10 mg/dL (0-10) Heterophil Agglutinins Negative (NEGATIVE) Influenza Type A Antigen Negative (NEGATIVE) Influenza Type B Antigen Negative (NEGATIVE) Urine Collection Type Unknown Urine Color Patrizia Urine Clarity Cloudy Urine pH 5.5 Urine Specific [place] 1.020 Urine Protein 100 mg/dL (NEG-TRACE) Urine Glucose (UA) Negative mg/dL (NEG) Urine Ketones (Stick) Negative mg/dL (NEG) Urine Blood Small (NEG) Urine Nitrite Negative (NEG) Urine Bilirubin Moderate (NEG) Urine Urobilinogen Dipstick 1.0 mg/dL (0.2 mg/dL) Urine Leukocyte Esterase Negative (NEG) Urine RBC Occ /HPF (0-2) Urine WBC Occ /HPF (0-4) Urine Squamous Epithelial Cells Occ /LPF Urine Transitional Epithelial Cells Occ /LPF Urine Amorphous Sediment Present /HPF Urine Bacteria 0 /HPF (0-FEW) Urine Opiates Screen Neg (NEG) Urine Methadone Screen Neg (NEG) Urine Barbiturates Neg (NEG) Urine Phencyclidine Screen Neg (NEG) Urine Amphetamine/Methamphetamine Neg (NEG) Urine Benzodiazepines Screen Neg (NEG) Urine Cocaine Screen Neg (NEG) Urine Cannabinoids Screen Neg (NEG) Urine Ethyl Alcohol Neg (NEG) Test 08/26/18 03:15 White Blood Count 6.5 x10^3/uL (4.0-11.0) Red Blood Count 4.54 x10^6/uL (4.30-5.70) Hemoglobin 13.3 g/dL (13.0-17.5) Hematocrit 39.3 % (39.0-53.0) Mean Corpuscular Volume 86 fL (79-100) Mean Corpuscular Hemoglobin 29 pg (25-35) Mean Corpuscular Hemoglobin Concent 34 g/dL (31-37) Red Cell Distribution Width 15.9 % (11.5-14.5) Platelet Count 17 x10^3/uL (140-400) Neutrophils (%) (Auto) 98 % (31-73) Lymphocytes (%) (Auto) 2 % (24-48) Monocytes (%) (Auto) 1 % (0-9) Eosinophils (%) (Auto) 0 % (0-3) Basophils (%) (Auto) 0 % (0-3) Neutrophils # (Auto) 6.4 x10^3uL (1.8-7.7) Lymphocytes # (Auto) 0.1 x10^3/uL (1.0-4.8) Monocytes # (Auto) 0.0 x10^3/uL (0.0-1.1) Eosinophils # (Auto) 0.0 x10^3/uL (0.0-0.7) Basophils # (Auto) 0.0 x10^3/uL (0.0-0.2) Absolute Reticulocyte Count 0.030 x10^6/uL (0.020-0.120) Percent Reticulocyte Count 0.7 % (0.5-2.3) Immature Reticulocyte Fraction 0.35 (0.20-0.60) Prothrombin Time 14.2 SEC (11.7-14.0) Prothromb Time International Ratio 1.1 (0.8-1.1) Activated Partial Thromboplast Time 44 SEC (24-38) Fibrinogen 319 mg/dL (200-440) D-Dimer ([place]) 12.89 ug/mlFEU (0.00-0.50) Sodium Level 129 mmol/L (136-145) Potassium Level 3.5 mmol/L (3.5-5.1) Chloride Level 94 mmol/L (98-107) Carbon Dioxide Level 16 mmol/L (21-32) Anion Gap 19 (6-14) Blood Urea Nitrogen 53 mg/dL (8-26) Creatinine 4.7 mg/dL (0.7-1.3) Estimated GFR (Cockcroft-Gault) 13.1 BUN/Creatinine Ratio 11 (6-20) Glucose Level 80 mg/dL (70-99) Lactic Acid Level 4.9 mmol/L (0.4-2.0) Calcium Level 6.8 mg/dL (8.5-10.1) Total Bilirubin 4.7 mg/dL (0.2-1.0) Direct Bilirubin 4.2 mg/dL (0.0-0.2) Aspartate Amino Transf (AST/SGOT) 288 U/L (15-37) Alanine Aminotransferase (ALT/SGPT) 127 U/L (16-63) Alkaline Phosphatase 200 U/L (46-116) Troponin I Quantitative 0.165 ng/mL (0.000-0.055) Total Protein 5.3 g/dL (6.4-8.2) Albumin 2.1 g/dL (3.4-5.0) Albumin/Globulin Ratio 0.7 (1.0-1.7) PERIPHERAL SMEAR 08/25 RBC:Normochromic normocytic, acanthocytes seen. No schistocytes. PLTS: decreased in number. Small clumps of 2-3 plts but overall decreased in number. WBC: Neutrophils with toxic granulation and vaculation. No obvious immature cells seen PERIPHERAL SMEAR 08/26 RBC: Caleb cells seen. Normal chromic normocytic, No schistocytes. PLTS: decreased in number. No obvious clumps. WBC: no immature forms Assessment/Plan Assessment/Plan 52 yo male presents with week long history of fever and found to have thrombocytopenia, ARF, elevated LFTs 1. Fever 2. Dehydration 3. Acute renal failure 4. Elevated LFTs 5. Thrombocytopenia Given the history and constellation of symptoms, TTP is in the differential of what is going on. I reviewed his peripheral smear, both from 08/25 and 08/26 and there is no real evidence of schistocytes on either of the smears. With the bilirubin being almost all direct, and his hgb remaining stable, I do not believe that this is ttp. I agree with broad spectrum abx and continued workup for an infectious source. This certainly could also be a viral illness, or tick borne illness given a ? tick bite 3 weeks ago. I have ordered a RUQ us to further evaluate his liver and focus on his gallbladder with the elevated transaminases and hyperbilirubinemia. His cbc and coags should continue to be monitored. He should be transfused plts if his plt count <10 or he develops active bleeding. MERT GALEAS MD August 26, 2018 05:10
--- NOTE | 2018-08-26 05:38 | RAD ---
PA and lateral chest. HISTORY: Fever PA and lateral views were taken of the chest. Lungs are free of infiltrates. Heart is normal in size. There is a possible nodule or nipple shadow on the right follow-up film with nipple marker could be of benefit. There is blunting of the posterior costophrenic angles possibly small effusions. Heart is normal in size without heart failure. IMPRESSION: 1. Possible small effusions. 2. Small nodule versus nipple shadow on the right. 3. No acute infiltrates. Electronically signed by: Leonidas Westfall MD (08/26/2018 5:36 AM) [id number]
--- NOTE | 2018-08-26 08:38 | PDOC1 ---
History and Physical Date of Admission Date of Admission DATE: 08/26/18 TIME: 08:37 Identification/Chief Complaint Chief Complaint seen in er last PM WITH WORSENING SYMPTOMS Patient presented to [facility] emergency department on 08/24/18 for continued fever, myalgias, and arthralgias. Head and pelvis CT along with chest x-ray without acute process at that time. Patient was hypokalemic and given potassium supplementation which he subsequently vomited after leaving the emergency department. Patient's reports increased confusion 08/25 evidenced by inappropriate responses to many of her questions. Patient is in mild lower abdominal pain at this time. Review of systems is positive for shortness of breath, dry cough and oliguria rash last week left leg . was prescribed prednisone at urgent care on Monday and diagnosed with a upper respiratory tract infection. noted rash after tick bite, was felt to be poison [place] by [place] doctors Past Medical History Past Medical History Past Medical History Past Medical History: Hypertension, Other Additional Past Medical Histor: SLEEP APNEA, DDD, Hemochromatosis Past Surgical History: Other Additional Past Surgical Histo: WISDOM TEETH Additional Information: Nonsmoker Alcohol Use: Occasionally Drug Use: None family hx obesity Cardiovascular: HTN Pulmonary: No pertinent hx GI: No pertinent hx Heme/Onc: Hemochromatosis Hepatobiliary: No pertinent hx Family History Family History: Hypertension Social History Smoke: No ALCOHOL: occassional Drugs: None, 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, 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) Current Problem List Problem List Problems Medical Problems: (1) Acute renal failure Status: Acute Current Medications Current Medications Current Medications Sodium Chloride 1,000 ml @ 1,000 mls/hr 1X ONCE IV Last administered on 08/25/18at 20:38; Start 08/25/18 at 19:15; Stop 08/25/18 at 20:14; Status DC Ibuprofen (Motrin) 600 mg 1X ONCE PO Last administered on 08/25/18 20:38; Start 08/25/18 at 19:45; Stop 08/25/18 at 19:49; Status DC Sodium Chloride 1,000 ml @ 1,000 mls/hr 1X ONCE IV Last administered on 08/25/18at 20:30; Start 08/25/18 at 20:30; Stop 08/25/18 at 21:29; Status DC Ceftriaxone Sodium (Rocephin) 1 gm 1X ONCE IVP Last administered on 08/25/18at 20:36; Start 08/25/18 at 20:30; Stop 08/25/18 at 20:31; Status DC Vancomycin HCl 2 gm/Sodium Chloride 500 ml @ 250 mls/hr 1X ONCE IV Last administered on 08/25/18at 23:10; Start 08/25/18 at 21:30; Stop 08/25/18 at 23:29; Status DC Sodium Chloride 1,000 ml @ 1,000 mls/hr 1X ONCE IV Last administered on 08/25/18at 23:51; Start 08/25/18 at 21:00; Stop 08/25/18 at 21:59; Status DC Piperacillin Sod/ Tazobactam Sod 4.5 gm/Sodium Chloride 100 ml @ 200 mls/hr 1X ONCE IV ; Start 08/25/18 at 21:15; Stop 08/25/18 at 21:44; Status DC Aztreonam (Azactam) 2 gm 1X ONCE IVP Last administered on 08/25/18at 21:15; Start 08/25/18 at 21:15; Stop 08/25/18 at 21:16; Status DC Magnesium Sulfate 50 ml @ 25 mls/hr 1X ONCE IV Last administered on 08/25/18at 23:51; Start 08/25/18 at 21:15; Stop 08/25/18 at 23:14; Status DC Ondansetron HCl (Zofran) 4 mg PRN Q8HRS PRN IV NAUSEA/VOMITING; Start 08/25/18 at 21:15; Stop 08/26/18 at 21:14 Acetaminophen (Tylenol) 650 mg PRN Q4HRS PRN PO FEVER; Start 08/25/18 at 21:15; Stop 08/26/18 at 21:14 Sodium Chloride 1,000 ml @ 125 mls/hr 1X ONCE IV Last administered on 08/25/18at 23:09; Start 08/25/18 at 21:15; Stop 08/26/18 at 05:14; Status DC Daptomycin 610 mg/ Sodium Chloride 50 ml @ 100 mls/hr QODAY IV ; Start 08/27/18 at 09:00 Meropenem 500 mg/ Sodium Chloride 50 ml @ 100 mls/hr 1X ONCE IV Last administered on 08/25/18at 22:12; Start 08/25/18 at 22:00; Stop 08/25/18 at 22:29; Status DC Doxycycline Hyclate 100 mg/ Dextrose 100 ml @ 50 mls/hr Q12HR IV ; Start 08/26/18 at 09:00 Meropenem 500 mg/ Sodium Chloride 50 ml @ 100 mls/hr DAILY IV ; Start 08/26/18 at 09:00 Active Scripts Active Potassium Chloride 20 Meq Tablet.er 20 Meq PO DAILY Orphenadrine Citrate 100 Mg Tablet.er 100 Mg PO Q12HR Anaprox Ds (Naproxen Sodium) 550 Mg Tablet 550 Mg PO Q12HR Reported Prednisone 20 Mg Tablet 1 Tab PO DAILY Hydrochlorothiazide Tablet (Hydrochlorothiazide) 12.5 Mg Tablet 12.5 Mg PO DAILY Shilpi Allergy (Fexofenadine Hcl) 180 Mg Tablet 1 Tab PO DAILY Allergies Allergies: Coded Allergies: aspirin (Verified Allergy, Intermediate, 02/03/16) pentazocine (Verified Allergy, Intermediate, 02/03/16) ROS Review of System Review of Systems Review of Systems Constitutional: Reports fever and chills on going for 2-3 weeks.] Eyes: Denies change in visual acuity, redness, or eye pain [] HENT: Mild sore throat and congestion.[] Respiratory: Endorses dry cough and shortness of breath [] Cardiovascular: Denies any chest pain or palpitations. GI: Endorses diarrhea for 1 week. 1 episode of non-bloody vomitus. : Denies dysuria or hematuria [] Musculoskeletal: Denies back pain or joint pain [] Integument: Denies any current rash or skin lesions [] Neurologic: Denies headache, focal weakness or sensory changes [] 14 pt systems were reviewed and found to be within normal limits, except as documented General: YES: Chills, Fatigue, Malaise HEENT: YES: Heacaches Skin: Yes Rash Physical Exam Physical Exam Physical Exam Physical Exam Constitutional: 52 yo male appears uncomfortable and ill, HENT: Normocephalic, atraumatic, bilateral TMs normal, oropharynx moist, no oral exudates, nose normal. [] Eyes: EOMI, conjunctiva normal, no discharge. [] Neck: Full ROM, no meningeal signs Cardiovascular: Tachypnea. Heart rate regular rhythm, no murmur [] Lungs & Thorax: Bilateral breath sounds clear to auscultation [] Abdomen: Soft, no tenderness, no masses, no pulsatile masses. [] Skin: Warm, clammy. no erythema, no rash. [] Extremities: No tenderness, ROM intact, no edema. [] Neurologic: Alert and oriented X 3, normal motor function, normal sensory function, no focal deficits noted. [] Psychologic: Affect normal, judgement normal, mood normal. [] General: mild distress Heart: RRR Abdomen: Soft Rectal Exam: not examined Neuro: Normal speech, Cranial nerves 3-12 NL Psych/Mental Status: Mood NL Vitals Vitals Vital Signs Date Time Temp Pulse Resp B/P (MAP) Pulse Ox O2 Delivery O2 Flow Rate FiO2 08/26/18 07:00 85 17 122/70 (87) 94 Room Air 08/26/18 04:00 99.0 99.0 Labs Labs Laboratory Tests Test 08/25/18 19:45 08/25/18 20:28 08/25/18 20:30 08/25/18 22:22 White Blood Count 6.2 x10^3/uL (4.0-11.0) Red Blood Count 4.74 x10^6/uL (4.30-5.70) Hemoglobin 14.0 g/dL (13.0-17.5) Hematocrit 40.8 % (39.0-53.0) Mean Corpuscular Volume 86 fL (79-100) Mean Corpuscular Hemoglobin 30 pg (25-35) Mean Corpuscular Hemoglobin Concent 34 g/dL (31-37) Red Cell Distribution Width 15.7 % (11.5-14.5) Platelet Count 17 x10^3/uL (140-400) Neutrophils (%) (Auto) 97 % (31-73) Lymphocytes (%) (Auto) 1 % (24-48) Monocytes (%) (Auto) 2 % (0-9) Eosinophils (%) (Auto) 0 % (0-3) Basophils (%) (Auto) 0 % (0-3) Neutrophils # (Auto) 6.1 x10^3uL (1.8-7.7) Lymphocytes # (Auto) 0.1 x10^3/uL (1.0-4.8) Monocytes # (Auto) 0.1 x10^3/uL (0.0-1.1) Eosinophils # (Auto) 0.0 x10^3/uL (0.0-0.7) Basophils # (Auto) 0.0 x10^3/uL (0.0-0.2) Segmented Neutrophils % 68 % (35-66) Band Neutrophils % 24 % (0-9) Lymphocytes % 5 % (24-48) Metamyelocytes % 3 % (0-0) Toxic Granulation Slight Toxic Vacuolation Mod Platelet Estimate Decreased (ADEQUATE) Erythrocyte Sedimentation Rate 11 (0-15) Prothrombin Time 13.4 SEC (11.7-14.0) Prothromb Time International Ratio 1.1 (0.8-1.1) Activated Partial Thromboplast Time 38 SEC (24-38) Sodium Level 128 mmol/L (136-145) Potassium Level 3.7 mmol/L (3.5-5.1) Chloride Level 91 mmol/L (98-107) Carbon Dioxide Level 20 mmol/L (21-32) Anion Gap 17 (6-14) Blood Urea Nitrogen 45 mg/dL (8-26) Creatinine 3.9 mg/dL (0.7-1.3) Estimated GFR (Cockcroft-Gault) 16.3 BUN/Creatinine Ratio 12 (6-20) Glucose Level 94 mg/dL (70-99) Lactic Acid Level 5.3 mmol/L (0.4-2.0) Calcium Level 7.6 mg/dL (8.5-10.1) Magnesium Level 1.3 mg/dL (1.8-2.4) Total Bilirubin 4.7 mg/dL (0.2-1.0) Aspartate Amino Transf (AST/SGOT) 233 U/L (15-37) Alanine Aminotransferase (ALT/SGPT) 127 U/L (16-63) Alkaline Phosphatase 215 U/L (46-116) Ammonia < 10 mcmol/L (11-34) Lactate Dehydrogenase 1240 U/L (85-227) Creatine Kinase 284 U/L (39-308) Creatine Kinase MB (Mass) 1.7 ng/mL (0.0-3.6) Creatine Kinase MB Relative Index 0.6 % (0-4) Troponin I Quantitative 0.111 ng/mL (0.000-0.055) C-Reactive Protein, Quantitative 242.9 mg/L (0-3.3) Total Protein 6.0 g/dL (6.4-8.2) Albumin 2.5 g/dL (3.4-5.0) Albumin/Globulin Ratio 0.7 (1.0-1.7) Lipase 425 U/L (73-393) Ethyl Alcohol Level < 10 mg/dL (0-10) Heterophil Agglutinins Negative (NEGATIVE) Influenza Type A Antigen Negative (NEGATIVE) Influenza Type B Antigen Negative (NEGATIVE) Group A Streptococcus Rapid Negative (NEGATIVE) Urine Collection Type Unknown Urine Color Patrizia Urine Clarity Cloudy Urine pH 5.5 Urine Specific Rio 1.020 Urine Protein 100 mg/dL (NEG-TRACE) Urine Glucose (UA) Negative mg/dL (NEG) Urine Ketones (Stick) Negative mg/dL (NEG) Urine Blood Small (NEG) Urine Nitrite Negative (NEG) Urine Bilirubin Moderate (NEG) Urine Urobilinogen Dipstick 1.0 mg/dL (0.2 mg/dL) Urine Leukocyte Esterase Negative (NEG) Urine RBC Occ /HPF (0-2) Urine WBC Occ /HPF (0-4) Urine Squamous Epithelial Cells Occ /LPF Urine Transitional Epithelial Cells Occ /LPF Urine Amorphous Sediment Present /HPF Urine Bacteria 0 /HPF (0-FEW) Urine Opiates Screen Neg (NEG) Urine Methadone Screen Neg (NEG) Urine Barbiturates Neg (NEG) Urine Phencyclidine Screen Neg (NEG) Urine Amphetamine/Methamphetamine Neg (NEG) Urine Benzodiazepines Screen Neg (NEG) Urine Cocaine Screen Neg (NEG) Urine Cannabinoids Screen Neg (NEG) Urine Ethyl Alcohol Neg (NEG) Test 08/26/18 00:15 08/26/18 03:15 Lactic Acid Level 5.1 mmol/L (0.4-2.0) 4.9 mmol/L (0.4-2.0) Troponin I Quantitative 0.160 ng/mL (0.000-0.055) 0.165 ng/mL (0.000-0.055) White Blood Count 6.5 x10^3/uL (4.0-11.0) Red Blood Count 4.54 x10^6/uL (4.30-5.70) Hemoglobin 13.3 g/dL (13.0-17.5) Hematocrit 39.3 % (39.0-53.0) Mean Corpuscular Volume 86 fL (79-100) Mean Corpuscular Hemoglobin 29 pg (25-35) Mean Corpuscular Hemoglobin Concent 34 g/dL (31-37) Red Cell Distribution Width 15.9 % (11.5-14.5) Platelet Count 17 x10^3/uL (140-400) Neutrophils (%) (Auto) 98 % (31-73) Lymphocytes (%) (Auto) 2 % (24-48) Monocytes (%) (Auto) 1 % (0-9) Eosinophils (%) (Auto) 0 % (0-3) Basophils (%) (Auto) 0 % (0-3) Neutrophils # (Auto) 6.4 x10^3uL (1.8-7.7) Lymphocytes # (Auto) 0.1 x10^3/uL (1.0-4.8) Monocytes # (Auto) 0.0 x10^3/uL (0.0-1.1) Eosinophils # (Auto) 0.0 x10^3/uL (0.0-0.7) Basophils # (Auto) 0.0 x10^3/uL (0.0-0.2) Absolute Reticulocyte Count 0.030 x10^6/uL (0.020-0.120) Percent Reticulocyte Count 0.7 % (0.5-2.3) Immature Reticulocyte Fraction 0.35 (0.20-0.60) Prothrombin Time 14.2 SEC (11.7-14.0) Prothromb Time International Ratio 1.1 (0.8-1.1) Activated Partial Thromboplast Time 44 SEC (24-38) Fibrinogen 319 mg/dL (200-440) D-Dimer ([place]) 12.89 ug/mlFEU (0.00-0.50) Sodium Level 129 mmol/L (136-145) Potassium Level 3.5 mmol/L (3.5-5.1) Chloride Level 94 mmol/L (98-107) Carbon Dioxide Level 16 mmol/L (21-32) Anion Gap 19 (6-14) Blood Urea Nitrogen 53 mg/dL (8-26) Creatinine 4.7 mg/dL (0.7-1.3) Estimated GFR (Cockcroft-Gault) 13.1 BUN/Creatinine Ratio 11 (6-20) Glucose Level 80 mg/dL (70-99) Calcium Level 6.8 mg/dL (8.5-10.1) Total Bilirubin 4.7 mg/dL (0.2-1.0) Direct Bilirubin 4.2 mg/dL (0.0-0.2) Aspartate Amino Transf (AST/SGOT) 288 U/L (15-37) Alanine Aminotransferase (ALT/SGPT) 127 U/L (16-63) Alkaline Phosphatase 200 U/L (46-116) Total Protein 5.3 g/dL (6.4-8.2) Albumin 2.1 g/dL (3.4-5.0) Albumin/Globulin Ratio 0.7 (1.0-1.7) Laboratory Tests Test 08/25/18 19:45 08/25/18 20:28 08/25/18 20:30 08/25/18 22:22 White Blood Count 6.2 x10^3/uL (4.0-11.0) Red Blood Count 4.74 x10^6/uL (4.30-5.70) Hemoglobin 14.0 g/dL (13.0-17.5) Hematocrit 40.8 % (39.0-53.0) Mean Corpuscular Volume 86 fL (79-100) Mean Corpuscular Hemoglobin 30 pg (25-35) Mean Corpuscular Hemoglobin Concent 34 g/dL (31-37) Red Cell Distribution Width 15.7 % (11.5-14.5) Platelet Count 17 x10^3/uL (140-400) Neutrophils (%) (Auto) 97 % (31-73) Lymphocytes (%) (Auto) 1 % (24-48) Monocytes (%) (Auto) 2 % (0-9) Eosinophils (%) (Auto) 0 % (0-3) Basophils (%) (Auto) 0 % (0-3) Neutrophils # (Auto) 6.1 x10^3uL (1.8-7.7) Lymphocytes # (Auto) 0.1 x10^3/uL (1.0-4.8) Monocytes # (Auto) 0.1 x10^3/uL (0.0-1.1) Eosinophils # (Auto) 0.0 x10^3/uL (0.0-0.7) Basophils # (Auto) 0.0 x10^3/uL (0.0-0.2) Segmented Neutrophils % 68 % (35-66) Band Neutrophils % 24 % (0-9) Lymphocytes % 5 % (24-48) Metamyelocytes % 3 % (0-0) Toxic Granulation Slight Toxic Vacuolation Mod Platelet Estimate Decreased (ADEQUATE) Erythrocyte Sedimentation Rate 11 (0-15) Prothrombin Time 13.4 SEC (11.7-14.0) Prothromb Time International Ratio 1.1 (0.8-1.1) Activated Partial Thromboplast Time 38 SEC (24-38) Sodium Level 128 mmol/L (136-145) Potassium Level 3.7 mmol/L (3.5-5.1) Chloride Level 91 mmol/L (98-107) Carbon Dioxide Level 20 mmol/L (21-32) Anion Gap 17 (6-14) Blood Urea Nitrogen 45 mg/dL (8-26) Creatinine 3.9 mg/dL (0.7-1.3) Estimated GFR (Cockcroft-Gault) 16.3 BUN/Creatinine Ratio 12 (6-20) Glucose Level 94 mg/dL (70-99) Lactic Acid Level 5.3 mmol/L (0.4-2.0) Calcium Level 7.6 mg/dL (8.5-10.1) Magnesium Level 1.3 mg/dL (1.8-2.4) Total Bilirubin 4.7 mg/dL (0.2-1.0) Aspartate Amino Transf (AST/SGOT) 233 U/L (15-37) Alanine Aminotransferase (ALT/SGPT) 127 U/L (16-63) Alkaline Phosphatase 215 U/L (46-116) Ammonia < 10 mcmol/L (11-34) Lactate Dehydrogenase 1240 U/L (85-227) Creatine Kinase 284 U/L (39-308) Creatine Kinase MB (Mass) 1.7 ng/mL (0.0-3.6) Creatine Kinase MB Relative Index 0.6 % (0-4) Troponin I Quantitative 0.111 ng/mL (0.000-0.055) C-Reactive Protein, Quantitative 242.9 mg/L (0-3.3) Total Protein 6.0 g/dL (6.4-8.2) Albumin 2.5 g/dL (3.4-5.0) Albumin/Globulin Ratio 0.7 (1.0-1.7) Lipase 425 U/L (73-393) Ethyl Alcohol Level < 10 mg/dL (0-10) Heterophil Agglutinins Negative (NEGATIVE) Influenza Type A Antigen Negative (NEGATIVE) Influenza Type B Antigen Negative (NEGATIVE) Group A Streptococcus Rapid Negative (NEGATIVE) Urine Collection Type Unknown Urine Color Patrizia Urine Clarity Cloudy Urine pH 5.5 Urine Specific [place] 1.020 Urine Protein 100 mg/dL (NEG-TRACE) Urine Glucose (UA) Negative mg/dL (NEG) Urine Ketones (Stick) Negative mg/dL (NEG) Urine Blood Small (NEG) Urine Nitrite Negative (NEG) Urine Bilirubin Moderate (NEG) Urine Urobilinogen Dipstick 1.0 mg/dL (0.2 mg/dL) Urine Leukocyte Esterase Negative (NEG) Urine RBC Occ /HPF (0-2) Urine WBC Occ /HPF (0-4) Urine Squamous Epithelial Cells Occ /LPF Urine Transitional Epithelial Cells Occ /LPF Urine Amorphous Sediment Present /HPF Urine Bacteria 0 /HPF (0-FEW) Urine Opiates Screen Neg (NEG) Urine Methadone Screen Neg (NEG) Urine Barbiturates Neg (NEG) Urine Phencyclidine Screen Neg (NEG) Urine Amphetamine/Methamphetamine Neg (NEG) Urine Benzodiazepines Screen Neg (NEG) Urine Cocaine Screen Neg (NEG) Urine Cannabinoids Screen Neg (NEG) Urine Ethyl Alcohol Neg (NEG) Test 08/26/18 00:15 08/26/18 03:15 Lactic Acid Level 5.1 mmol/L (0.4-2.0) 4.9 mmol/L (0.4-2.0) Troponin I Quantitative 0.160 ng/mL (0.000-0.055) 0.165 ng/mL (0.000-0.055) White Blood Count 6.5 x10^3/uL (4.0-11.0) Red Blood Count 4.54 x10^6/uL (4.30-5.70) Hemoglobin 13.3 g/dL (13.0-17.5) Hematocrit 39.3 % (39.0-53.0) Mean Corpuscular Volume 86 fL (79-100) Mean Corpuscular Hemoglobin 29 pg (25-35) Mean Corpuscular Hemoglobin Concent 34 g/dL (31-37) Red Cell Distribution Width 15.9 % (11.5-14.5) Platelet Count 17 x10^3/uL (140-400) Neutrophils (%) (Auto) 98 % (31-73) Lymphocytes (%) (Auto) 2 % (24-48) Monocytes (%) (Auto) 1 % (0-9) Eosinophils (%) (Auto) 0 % (0-3) Basophils (%) (Auto) 0 % (0-3) Neutrophils # (Auto) 6.4 x10^3uL (1.8-7.7) Lymphocytes # (Auto) 0.1 x10^3/uL (1.0-4.8) Monocytes # (Auto) 0.0 x10^3/uL (0.0-1.1) Eosinophils # (Auto) 0.0 x10^3/uL (0.0-0.7) Basophils # (Auto) 0.0 x10^3/uL (0.0-0.2) Absolute Reticulocyte Count 0.030 x10^6/uL (0.020-0.120) Percent Reticulocyte Count 0.7 % (0.5-2.3) Immature Reticulocyte Fraction 0.35 (0.20-0.60) Prothrombin Time 14.2 SEC (11.7-14.0) Prothromb Time International Ratio 1.1 (0.8-1.1) Activated Partial Thromboplast Time 44 SEC (24-38) Fibrinogen 319 mg/dL (200-440) D-Dimer ([place]) 12.89 ug/mlFEU (0.00-0.50) Sodium Level 129 mmol/L (136-145) Potassium Level 3.5 mmol/L (3.5-5.1) Chloride Level 94 mmol/L (98-107) Carbon Dioxide Level 16 mmol/L (21-32) Anion Gap 19 (6-14) Blood Urea Nitrogen 53 mg/dL (8-26) Creatinine 4.7 mg/dL (0.7-1.3) Estimated GFR (Cockcroft-Gault) 13.1 BUN/Creatinine Ratio 11 (6-20) Glucose Level 80 mg/dL (70-99) Calcium Level 6.8 mg/dL (8.5-10.1) Total Bilirubin 4.7 mg/dL (0.2-1.0) Direct Bilirubin 4.2 mg/dL (0.0-0.2) Aspartate Amino Transf (AST/SGOT) 288 U/L (15-37) Alanine Aminotransferase (ALT/SGPT) 127 U/L (16-63) Alkaline Phosphatase 200 U/L (46-116) Total Protein 5.3 g/dL (6.4-8.2) Albumin 2.1 g/dL (3.4-5.0) Albumin/Globulin Ratio 0.7 (1.0-1.7) Images Images STATUS: REG ER ORD. PHYSICIAN: MICKEY MANCUSO DO REASON: FEVER PROCEDURE: CT HEAD WO CONTRAST PQRS Compliance Statement: One or more of the following individualized dose reduction techniques were utilized for this examination: 1. Automated exposure control 2. Adjustment of the mA and/or kV according to patient size 3. Use of iterative reconstruction technique CT HEAD WITHOUT CONTRAST History: Fever. Comparison: None. Procedure: Axial images are obtained of the head from the skull base through the vertex without IV contrast. Findings: The ventricles and sulci are normal for the patient's age. No mass-effect, midline shift, hemorrhage, extra-axial fluid collection, or obvious acute infarction is identified. Basilar cisterns are patent. Bone windows demonstrate no acute calvarial abnormality. The visualized paranasal sinuses are clear. Mastoid air cells are well aerated. IMPRESSION: No acute intracranial abnormality. Electronically signed by: Sheba Linares MD (08/24/2018 3:55 AM) [facility] STATUS: REG ER ORD. PHYSICIAN: MICKEY MANCUSO DO REASON: abdominal pain, fever PROCEDURE: CT ABDOMEN PELVIS WO CONTRAST PQRS Compliance Statement: One or more of the following individualized dose reduction techniques were utilized for this examination: 1. Automated exposure control 2. Adjustment of the mA and/or kV according to patient size 3. Use of iterative reconstruction technique CT ABDOMEN PELVIS WO CONTRAST Clinical Indication: Abdominal pain, fever. Comparison: None. Technique: Helical CT imaging of the abdomen and pelvis is performed without IV or oral contrast. Findings: Evaluation of solid organs and bowel is limited without oral and IV contrast, decreasing sensitivity for detection of pathology. Mild atelectasis in the bilateral lower lobes. Small bulla are seen in the lung bases. Calcified granuloma left lower lobe. Cardiac size normal. Calcified granulomas in the liver and spleen. Minimal fatty infiltration of the liver. Gallbladder is contracted. Pancreas, adrenal glands, and abdominal aorta caliber are normal. There are multiple subcentimeter retroperitoneal lymph nodes. No renal or ureteral calculus. No hydronephrosis. Stomach unremarkable. No dilated small bowel. No colon wall thickening. The appendix is normal. No abdominal adenopathy or free fluid. Bilateral inguinal lymph nodes may be reactive. Urinary bladder is normal. Prostate and seminal vesicles are normal. No pelvic free fluid. Vacuum disc phenomenon L4/L5. Left osteitis pubis. IMPRESSION: 1. No acute abdominal or pelvic abnormality. 2. Minimal fatty infiltration of the liver. 3. Mild atelectasis in the bilateral lower lobes. Electronically signed by: Sheba Linares MD (08/24/2018 5:40 AM) [facility] DICTATED and SIGNED BY: SHEBA LINARES MD DATE: 08/24/18 0540 PA and lateral chest. HISTORY: Fever PA and lateral views were taken of the chest. Lungs are free of infiltrates. Heart is normal in size. There is a possible nodule or nipple shadow on the right follow-up film with nipple marker could be of benefit. There is blunting of the posterior costophrenic angles possibly small effusions. Heart is normal in size without heart failure. IMPRESSION: 1. Possible small effusions. 2. Small nodule versus nipple shadow on the right. 3. No acute infiltrates. Electronically signed by: Leonidas Westfall MD (08/26/2018 5:36 AM) [facility] [place] DICTATED and SIGNED BY: LEONIDAS WESTFALL MD DATE: 08/26/18 0575 VTE Prophylaxis Ordered VTE Prophylaxis Devices: No VTE Pharmacological Prophylaxi: No Assessment/Plan Assessment/Plan IMPRESSION: 1. 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 severe thrombocytopenia 3. severe sepsis 4. recent tick bite 5. Altered mental status, encephalopathy, acute 6. morbid obesity 7. No acute abdominal or pelvic abnormality.BY CT 8. Minimal fatty infiltration of the liver. 9. Mild atelectasis in the bilateral lower lobes. 10. Acute renal failure 11. Mild elevation troponin i, 12. transaminitis 13. diarrhea 14. lactic acidosis 15. hx mild hypertension plan blood cult iv antibiotics, emperic including doxycycline ID CONSULT nephrology consult neurology consult HEME CONSULT ICU BED PRN IV PRESSORS Ehrlichiosis antibody serology iv fluid support cardiology consult ECHO ANANDA today GI CONSULT ABD SONO TODAY Acute hepatitis panel stool enteric pathogens sepsis protocol lyme serology d/w in detail in room 105 min cc time consider the following reference Human Monocytic Ehrlichiosis (HME) is a rare infectious disease belonging to a group of diseases known as the Human Ehrlichioses. These diseases are caused by bacteria belonging to the "Ehrlichia" family. Several forms of Human Ehrlichioses have been identified, including Human Monocytic Ehrlichiosis, Sennetsu Fever, and Human Granulocytic Ehrlichiosis. Though caused by different strains of Ehrlichia bacteria, the disorders are characterized by similar symptoms. The symptoms of Human Monocytic Ehrlichiosis may include a sudden high fever, headache, muscle aches (myalgia), chills, and a general feeling of weakness and fatigue (malaise) within a few weeks after initial infection. In addition, in many cases, laboratory findings may indicate an abnormally low number of circulating blood platelets (thrombocytopenia), a decrease in white blood cells (leukopenia), and an abnormal increase in the level of certain liver enzymes (hepatic transaminases). In some individuals, symptoms may progress to include nausea, vomiting, diarrhea, weight loss, and/or confusion. If HME is left untreated, life-threatening symptoms, such as kidney failure and respiratory insufficiency, may develop in some cases. Human Monocytic Ehrlichiosis is caused by the bacteria Ehrlichia chaffeensis (or E. chaffeensis). E. chaffeensis is carried and transmitted by certain ticks (vectors), such as the Moro tick (Amblyomma americanum) and the Belgian dog tick (Dermacentor variabilis). Signs & Symptoms Human Monocytic Ehrlichiosis (HME) was the first form of Human Ehrlichial infection recognized in the [place]. The onset of symptoms usually occurs about three weeks after an individual has been bitten by a tick carrying the bacterium Ehrlichia chaffeensis. Symptoms may initially include fever, chills, headaches, muscle pain (myalgia), and a general feeling of weakness and fatigue (malaise). In some cases, a rash may appear on the skin. Symptoms may then progress to include nausea, vomiting, loss of appetite (anorexia), and/or weight loss. Some affected individuals may also experience coughing, diarrhea, sore throat (pharyngitis), and pain in the abdominal area. In most cases of HME, there is also an abnormal decrease in white blood cells (leukopenia), a low number of circulating blood platelets (thrombocytopenia), and/or an abnormal increase in the level of certain liver enzymes (hepatic transaminases). Some affected individuals may also experience inflammation of the liver (hepatitis). In some severe cases of Human Monocytic Ehrlichiosis, if appropriate treatment is not received, symptoms may include shortness of breath (dyspnea); abnormalities in the bloods ability to clot properly (coagulopathy), potentially resulting in gastrointestinal bleeding; and/or neurologic abnormalities due to involvement of the brain and the spinal cord (central nervous system [LYE BATH OPERATOR]). Affected individuals with LYE BATH OPERATOR involvement may develop abnormal tissue changes (lesions) in the brain, experience inflammation of the p rotective membranes covering the brain and spinal cord (meningitis), and/or have abnormalities in the fluid surrounding the brain and spinal cord (cerebrospinal fluid). Neurologic symptoms and findings may include confusion, abnormal sensitivity to light (photophobia), stiffness of the neck, episodes of uncontrolled electrical disturbances in the brain (seizures), and/or coma. Byron tional neurologic abnormalities may include exaggerated reflex responses (hyperreflexia), impaired coordination of voluntary movements (ataxia), and/or loss of some motor function in the facial area due to impairment of one or more of the 12 nerve pairs arising from the brain (cranial nerve palsy). In severe cases, if HME is left untreated, life-threatening complications may result, such as kidney (renal) and/or respiratory failure. Some affected individuals may have a milder form of Human Monocytic Ehrlic hiosis, experiencing only some of the symptoms typically associated with the disorder. Such symptoms may include muscle aches (myalgia), joint pain (arthralgia), headache, and/or loss of appetite (anorexia). In addition, it is believed that some individuals affected with HME may demonstrate no obvious symptoms (asymptomatic). Causes The Human Ehrlichioses, including Human Monocytic Ehrlichiosis (HME), are caused by bacteria belonging to the Ehrlichia family. They are considered gram- negative bacteria. Bacteria may be considered gram negative or gram positive, depending upon the results of Grams stain, a testing method in which bacteria are stained with various solutions to help identify and classify the bacteria. Such staining may be essential in identifying a specific bacterium responsible for an infectious disorder and determining appropriate, effective treatments. In most cases, it is believed that Human Ehrlichial infection results from tick bites. Certain types of ticks serve as vectors, carrying and then transmitting the Ehrlichia bacteria to humans. A vector is any organism that is infected with a particular disease agent (e.g., bacterium or virus), carries it, and later transmits it to another organism, which may then become infected by the disease agent in question. Human Monocytic Ehrlichiosis is caused by a bacterium named Ehrlichia chaffeensis (or E. chaffeensis). E. chaffeensis is transmitted by tick vectors, such as the Moro tick (Amblyomma americanum) and the Belgian dog tick (Dermacentor variabilis). The genetic composition of E. chaffeensis is closely related to that of two other types of Ehrlichia bacteria, i.e., Ehrlichia canis and Ehrlichia ewingii. Both of these Ehrlichial bacteria are known to cause Ehrlichiosis in dogs. In addition, the E. ewingii bacterium has been found to cause a newly recognized form of Human Ehrlichiosis. (For more information, please see the Related Disorders section below.) In Human Monocytic Ehrlichiosis, the Ehrlichial bacterium (E. chaffeensis) spreads through blood and lymphatic vessels. Lymph, a body fluid, carries cells that help fight infection. E. chaffeensis then invades certain cells (monocytes and macrophages) that play an essential role in the bodys immune system by engulfing and digesting microorganisms (phagocytosis), such as bacteria and other foreign materials. The invading Ehrlichial bacteria grow within membrane- bound cavities (vacuoles) in monocytes and macrophages in the blood and certain body tissues (e.g., bone marrow, lymph nodes, liver, spleen, kidneys, lungs, and the fluid that surrounds the brain and spinal cord [cerebrospinal fluid]). 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 At that time, a male who was approximately 49 years of age was bitten by a tick in [place]. He experienced the symptoms of Ehrlichial infection approximately two weeks after tick exposure. Studies were later conducted by the Centers for Disease Control (CDC) and state public health officials, demonstrating that many individuals in the [facility] who had originally been diagnosed with Rochelle Spotted Fever or a related disorder may have actually experienced Human Ehrlichial infection. In 1990, when a soldier stationed at an army base in [place] experienced similar symptoms, the bacterium responsible for the infection was isolated. The bacterium, named Ehrlichia chaffeensis after the army base where the soldier was stationed ([place], [place]), is the cause of Human Monocytic Ehrlichiosis (HME). From 1985 to 1996, 742 cases of HME were reported to the CDC. Most cases have occurred in the [place] and [facility] in the [facility], although some have been reported from other states, including [facility], and [place], as well as other continents, including [place] and [place]. However, because some individuals with HME may demonstrate no obvious symptoms (asymptomatic), it may be difficult to determine the true frequency of this form of Human Ehrlichiosis in the general population. HME infection most commonly occurs in rural areas in the months of August, [place], and October. In theory, this disease affects males and females in equal numbers. However, in observed cases, approximately 80 percent of affected individuals are male, while about 20 percent are female. Infection tends to occur when individuals participate in recreational or occupational activities that expose them to tick vectors. Researchers believe that the distinct geographic distributions of the Human Ehrlichioses may result from differences in the distribution of the various vectors (e.g., raw fish, Moro tick, Belgian dog tick, deer tick) carrying and transmitting the different Ehrlichia bacterial strains. EVGENY PARKER MD August 26, 2018 08:38
[2018-08-26] MEDS ORDERED: NOREPINEPHRIN 8MG/250ML PREMIX 250 ML IV PRN (09:15)
[2018-08-26] MEDS ORDERED: 0.9 % SODIUM CHLORIDE 10 ML DISP.SYRIN. IV PRN ×3 (09:15→12:00)
--- NOTE | 2018-08-26 10:34 | PDOC ---
Infectious Disease Note Vital Sign Vital Signs Vital Signs Date Time Temp Pulse Resp B/P (MAP) Pulse Ox O2 Delivery O2 Flow Rate FiO2 08/26/18 08:00 99.0 86 18 125/68 (87) 94 Room Air 99.0 Labs Lab Laboratory Tests Test 08/25/18 19:45 08/25/18 20:28 08/25/18 20:30 08/25/18 22:22 White Blood Count 6.2 x10^3/uL (4.0-11.0) Red Blood Count 4.74 x10^6/uL (4.30-5.70) Hemoglobin 14.0 g/dL (13.0-17.5) Hematocrit 40.8 % (39.0-53.0) Mean Corpuscular Volume 86 fL (79-100) Mean Corpuscular Hemoglobin 30 pg (25-35) Mean Corpuscular Hemoglobin Concent 34 g/dL (31-37) Red Cell Distribution Width 15.7 % (11.5-14.5) Platelet Count 17 x10^3/uL (140-400) Neutrophils (%) (Auto) 97 % (31-73) Lymphocytes (%) (Auto) 1 % (24-48) Monocytes (%) (Auto) 2 % (0-9) Eosinophils (%) (Auto) 0 % (0-3) Basophils (%) (Auto) 0 % (0-3) Neutrophils # (Auto) 6.1 x10^3uL (1.8-7.7) Lymphocytes # (Auto) 0.1 x10^3/uL (1.0-4.8) Monocytes # (Auto) 0.1 x10^3/uL (0.0-1.1) Eosinophils # (Auto) 0.0 x10^3/uL (0.0-0.7) Basophils # (Auto) 0.0 x10^3/uL (0.0-0.2) Segmented Neutrophils % 68 % (35-66) Band Neutrophils % 24 % (0-9) Lymphocytes % 5 % (24-48) Metamyelocytes % 3 % (0-0) Toxic Granulation Slight Toxic Vacuolation Mod Platelet Estimate Decreased (ADEQUATE) Erythrocyte Sedimentation Rate 11 (0-15) Prothrombin Time 13.4 SEC (11.7-14.0) Prothromb Time International Ratio 1.1 (0.8-1.1) Activated Partial Thromboplast Time 38 SEC (24-38) Sodium Level 128 mmol/L (136-145) Potassium Level 3.7 mmol/L (3.5-5.1) Chloride Level 91 mmol/L (98-107) Carbon Dioxide Level 20 mmol/L (21-32) Anion Gap 17 (6-14) Blood Urea Nitrogen 45 mg/dL (8-26) Creatinine 3.9 mg/dL (0.7-1.3) Estimated GFR (Cockcroft-Gault) 16.3 BUN/Creatinine Ratio 12 (6-20) Glucose Level 94 mg/dL (70-99) Lactic Acid Level 5.3 mmol/L (0.4-2.0) Calcium Level 7.6 mg/dL (8.5-10.1) Magnesium Level 1.3 mg/dL (1.8-2.4) Total Bilirubin 4.7 mg/dL (0.2-1.0) Aspartate Amino Transf (AST/SGOT) 233 U/L (15-37) Alanine Aminotransferase (ALT/SGPT) 127 U/L (16-63) Alkaline Phosphatase 215 U/L (46-116) Ammonia < 10 mcmol/L (11-34) Lactate Dehydrogenase 1240 U/L (85-227) Creatine Kinase 284 U/L (39-308) Creatine Kinase MB (Mass) 1.7 ng/mL (0.0-3.6) Creatine Kinase MB Relative Index 0.6 % (0-4) Troponin I Quantitative 0.111 ng/mL (0.000-0.055) C-Reactive Protein, Quantitative 242.9 mg/L (0-3.3) Total Protein 6.0 g/dL (6.4-8.2) Albumin 2.5 g/dL (3.4-5.0) Albumin/Globulin Ratio 0.7 (1.0-1.7) Lipase 425 U/L (73-393) Ethyl Alcohol Level < 10 mg/dL (0-10) Heterophil Agglutinins Negative (NEGATIVE) Influenza Type A Antigen Negative (NEGATIVE) Influenza Type B Antigen Negative (NEGATIVE) Group A Streptococcus Rapid Negative (NEGATIVE) Urine Collection Type Unknown Urine Color Patrizia Urine Clarity Cloudy Urine pH 5.5 Urine Specific [place] 1.020 Urine Protein 100 mg/dL (NEG-TRACE) Urine Glucose (UA) Negative mg/dL (NEG) Urine Ketones (Stick) Negative mg/dL (NEG) Urine Blood Small (NEG) Urine Nitrite Negative (NEG) Urine Bilirubin Moderate (NEG) Urine Urobilinogen Dipstick 1.0 mg/dL (0.2 mg/dL) Urine Leukocyte Esterase Negative (NEG) Urine RBC Occ /HPF (0-2) Urine WBC Occ /HPF (0-4) Urine Squamous Epithelial Cells Occ /LPF Urine Transitional Epithelial Cells Occ /LPF Urine Amorphous Sediment Present /HPF Urine Bacteria 0 /HPF (0-FEW) Urine Opiates Screen Neg (NEG) Urine Methadone Screen Neg (NEG) Urine Barbiturates Neg (NEG) Urine Phencyclidine Screen Neg (NEG) Urine Amphetamine/Methamphetamine Neg (NEG) Urine Benzodiazepines Screen Neg (NEG) Urine Cocaine Screen Neg (NEG) Urine Cannabinoids Screen Neg (NEG) Urine Ethyl Alcohol Neg (NEG) Test 08/26/18 00:15 08/26/18 03:15 08/26/18 09:45 Lactic Acid Level 5.1 mmol/L (0.4-2.0) 4.9 mmol/L (0.4-2.0) Troponin I Quantitative 0.160 ng/mL (0.000-0.055) 0.165 ng/mL (0.000-0.055) White Blood Count 6.5 x10^3/uL (4.0-11.0) Red Blood Count 4.54 x10^6/uL (4.30-5.70) Hemoglobin 13.3 g/dL (13.0-17.5) Hematocrit 39.3 % (39.0-53.0) Mean Corpuscular Volume 86 fL (79-100) Mean Corpuscular Hemoglobin 29 pg (25-35) Mean Corpuscular Hemoglobin Concent 34 g/dL (31-37) Red Cell Distribution Width 15.9 % (11.5-14.5) Platelet Count 17 x10^3/uL (140-400) Neutrophils (%) (Auto) 98 % (31-73) Lymphocytes (%) (Auto) 2 % (24-48) Monocytes (%) (Auto) 1 % (0-9) Eosinophils (%) (Auto) 0 % (0-3) Basophils (%) (Auto) 0 % (0-3) Neutrophils # (Auto) 6.4 x10^3uL (1.8-7.7) Lymphocytes # (Auto) 0.1 x10^3/uL (1.0-4.8) Monocytes # (Auto) 0.0 x10^3/uL (0.0-1.1) Eosinophils # (Auto) 0.0 x10^3/uL (0.0-0.7) Basophils # (Auto) 0.0 x10^3/uL (0.0-0.2) Absolute Reticulocyte Count 0.030 x10^6/uL (0.020-0.120) Percent Reticulocyte Count 0.7 % (0.5-2.3) Immature Reticulocyte Fraction 0.35 (0.20-0.60) Prothrombin Time 14.2 SEC (11.7-14.0) Prothromb Time International Ratio 1.1 (0.8-1.1) Activated Partial Thromboplast Time 44 SEC (24-38) Fibrinogen 319 mg/dL (200-440) D-Dimer ([place]) 12.89 ug/mlFEU (0.00-0.50) Sodium Level 129 mmol/L (136-145) Potassium Level 3.5 mmol/L (3.5-5.1) Chloride Level 94 mmol/L (98-107) Carbon Dioxide Level 16 mmol/L (21-32) Anion Gap 19 (6-14) Blood Urea Nitrogen 53 mg/dL (8-26) Creatinine 4.7 mg/dL (0.7-1.3) Estimated GFR (Cockcroft-Gault) 13.1 BUN/Creatinine Ratio 11 (6-20) Glucose Level 80 mg/dL (70-99) Calcium Level 6.8 mg/dL (8.5-10.1) Total Bilirubin 4.7 mg/dL (0.2-1.0) Direct Bilirubin 4.2 mg/dL (0.0-0.2) Aspartate Amino Transf (AST/SGOT) 288 U/L (15-37) Alanine Aminotransferase (ALT/SGPT) 127 U/L (16-63) Alkaline Phosphatase 200 U/L (46-116) Total Protein 5.3 g/dL (6.4-8.2) Albumin 2.1 g/dL (3.4-5.0) Albumin/Globulin Ratio 0.7 (1.0-1.7) Lipase 516 U/L (73-393) Ionized Calcium 0.85 mmol/L (1.13-1.32) Ammonia 13 mcmol/L (11-34) Objective Assessment Tick-born illness suspected Lactic acidosis Fever resolving Bandemia Acute hepatic injury RADHA (Recent Bactrim/ibuprofen) Thrombocytopenia Hemochromatosis, followed by [facility] Diarrhea, resolved Dermatitis RLE improving Plan Plan of Care Continue dapto and doxycycline. Restart meropenem, renal dosing. Ehrlichiae Ab pending F/u BC Monitor lab values and for abx toxicities Abd US pending Monitor I & Os Consult nephrology RMSF serologies D/w D/w nursing D/w Dr. Ernie Parker Thank you [phone] Patient seen, examined, ED discussed this pt with me last PM I had started pt on above regimen pt feels much better today I agree with above A/P coformulated with FOUNTAIN SUPERVISOR KISHA OLIVAS APRN August 26, 2018 10:34 JEFF PARKER MD August 26, 2018 14:33
[2018-08-26] MEDS: DOXYCYCLINE HYCLATE 100 MG in IV DEXTROSE 5% 100ML 100 ML IV SCH ×2 (10:57→21:03)
--- NOTE | 2018-08-26 11:07 | EKG ---
[facility] [address] [place] [address] Test Date: 2018-08-25 Test Time: 19:22:48 Pat Name: STACIE ALEGRIA Department: Room: 110 1 Gender: M Unarmed Security Officer: : 1965 Requested By: KAVYA CARPENTER Order Number: [id number] Reading MD: Gordon Meehan Measurements Intervals [place] Rate: 85 P: 34 MO: 126 QRS: 61 QRSD: 76 T: 37 QT: 338 QTc: 407 Interpretive Statements SINUS RHYTHM NORMAL ECG No previous ECG available for comparison Electronically Signed On 09-14-2018 12:43:47 CDT by Gordon Meehan
[2018-08-26 11:13] LABS: BASO % 0 % (0-3); EOS % 0 % (0-3); HEMATOCRIT 37.9 % (39.0-53.0); HEMOGLOBIN 12.7 g/dL (13.0-17.5); LYMPH # 0.2 x10^3/uL (1.0-4.8); LYMPH % 2 % (24-48); MEAN CORPUSCULAR HEMOGLOBIN 29 pg (25-35); MEAN CORPUSCULAR HGB CONC 33 g/dL (31-37); MEAN CORPUSCULAR VOLUME 86 fL (79-100); MONO % 1 % (0-9); NEUT # 7.2 x10^3uL (1.8-7.7); NEUT % 97 % (31-73); RED BLOOD COUNT 4.39 x10^6/uL (4.30-5.70); RED CELL DISTRIBUTION WIDTH 16.4 % (11.5-14.5); WHITE BLOOD COUNT 7.5 x10^3/uL (4.0-11.0)
--- NOTE | 2018-08-26 11:17 | RAD ---
Examination: Ultrasound abdomen complete HISTORY: History of elevated liver enzymes COMPARISON: None available FINDINGS: Visualized pancreas grossly appears unremarkable. The liver length measures 17.3 cm. The common bile duct could not be visualized. The gallbladder wall thickness measures 5.4 mm. The gallbladder appears contracted. No evidence of ultrasonographic evidence of Whitfield's sign. The right kidney measures 11.6 cm in length. Left kidney measures 12.1 cm in length. The pancreas is poorly visualized. The spleen measures 11.4 cm in length. Examination limited due to patient body habitus. There is increased echogenicity identified in the liver. IMPRESSION: 1. Hepatomegaly with hepatic steatosis. 2. No evidence of gallstones however the gallbladder wall appears mildly thickened probably due to contracted appearance of the gallbladder. 3. Mild splenomegaly. Electronically signed by: Peter Champion MD (08/26/2018 11:14 AM) [facility]
--- NOTE | 2018-08-26 11:18 | PDOC2 ---
CONSULT Date of Consult Date of Consult DATE: 08/26/18 TIME: 11:18 Reason for Consult Reason for Consult: Slightly elevated troponin level Referring Physician Referring Physician: Dr. Laboy Identification/Chief Complaint Chief Complaint Fever, muscle aches Source Source: Chart review, Patient History of Present Illness Reason for Visit: 52-year-old male presented with generalized fatigue, fever, chills, joint and muscle pains. He also complained of loss of appetite and feeling lethargic. According to his family he was intermittently confused as well. He apparently had a recent tick bite when he was at a [employer] [place] followed by development of rash. He denied any chest pain as such. He also denied any orthopnea/PND, palpitations or syncope. 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) Current Problem List Problem List Problems Medical Problems: (1) Acute renal failure Status: Acute Current Medications Current Medications Current Medications Sodium Chloride 1,000 ml @ 1,000 mls/hr 1X ONCE IV Last administered on 08/25/18at 20:38; Start 08/25/18 at 19:15; Stop 08/25/18 at 20:14; Status DC Ibuprofen (Motrin) 600 mg 1X ONCE PO Last administered on 08/25/18at 20:38; Start 08/25/18 at 19:45; Stop 08/25/18 at 19:49; Status DC Sodium Chloride 1,000 ml @ 1,000 mls/hr 1X ONCE IV Last administered on 08/25/18at 20:30; Start 08/25/18 at 20:30; Stop 08/25/18 at 21:29; Status DC Ceftriaxone Sodium (Rocephin) 1 gm 1X ONCE IVP Last administered on 08/25/18at 20:36; Start 08/25/18 at 20:30; Stop 08/25/18 at 20:31; Status DC Vancomycin HCl 2 gm/Sodium Chloride 500 ml @ 250 mls/hr 1X ONCE IV Last administered on 08/25/18at 23:10; Start 08/25/18 at 21:30; Stop 08/25/18 at 23:29; Status DC Sodium Chloride 1,000 ml @ 1,000 mls/hr 1X ONCE IV Last administered on 08/25/18at 23:51; Start 08/25/18 at 21:00; Stop 08/25/18 at 21:59; Status DC Piperacillin Sod/ Tazobactam Sod 4.5 gm/Sodium Chloride 100 ml @ 200 mls/hr 1X ONCE IV ; Start 08/25/18 at 21:15; Stop 08/25/18 at 21:44; Status DC Aztreonam (Azactam) 2 gm 1X ONCE IVP Last administered on 08/25/18at 21:15; Start 08/25/18 at 21:15; Stop 08/25/18 at 21:16; Status DC Magnesium Sulfate 50 ml @ 25 mls/hr 1X ONCE IV Last administered on 08/25/18at 23:51; Start 08/25/18 at 21:15; Stop 08/25/18 at 23:14; Status DC Ondansetron HCl (Zofran) 4 mg PRN Q8HRS PRN IV NAUSEA/VOMITING; Start 08/25/18 at 21:15; Stop 08/26/18 at 21:14 Acetaminophen (Tylenol) 650 mg PRN Q4HRS PRN PO FEVER; Start 08/25/18 at 21:15; Stop 08/26/18 at 21:14 Sodium Chloride 1,000 ml @ 125 mls/hr 1X ONCE IV Last administered on 08/25/18at 23:09; Start 08/25/18 at 21:15; Stop 08/26/18 at 05:14; Status DC Daptomycin 610 mg/ Sodium Chloride 50 ml @ 100 mls/hr QODAY IV ; Start 08/27/18 at 09:00 Meropenem 500 mg/ Sodium Chloride 50 ml @ 100 mls/hr 1X ONCE IV Last administered on 08/25/18at 22:12; Start 08/25/18 at 22:00; Stop 08/25/18 at 22:29; Status DC Doxycycline Hyclate 100 mg/ Dextrose 100 ml @ 50 mls/hr Q12HR IV Last administered on 08/26/18at 10:57; Start 08/26/18 at 09:00 Meropenem 500 mg/ Sodium Chloride 50 ml @ 100 mls/hr DAILY IV ; Start 08/26/18 at 09:00 Sodium Chloride (Normal Saline Flush) 10 ml QSHIFT PRN IV AFTER MEDS AND BLOOD DRAWS; Start 08/26/18 at 09:15 Norepinephrine Bitartrate 250 ml @ 0 mls/hr CONT PRN IV PER PROTOCOL; Start 08/26/18 at 09:15 Active Scripts Active Potassium Chloride 20 Meq Tablet.er 20 Meq PO DAILY Orphenadrine Citrate 100 Mg Tablet.er 100 Mg PO Q12HR Anaprox Ds (Naproxen Sodium) 550 Mg Tablet 550 Mg PO Q12HR Reported Prednisone 20 Mg Tablet 1 Tab PO DAILY Hydrochlorothiazide Tablet (Hydrochlorothiazide) 12.5 Mg Tablet 12.5 Mg PO DAILY Shilpi Allergy (Fexofenadine Hcl) 180 Mg Tablet 1 Tab PO DAILY Allergies Allergies: Coded Allergies: aspirin (Verified Allergy, Intermediate, 02/03/16) pentazocine (Verified Allergy, Intermediate, 02/03/16) ROS General: YES: Chills, Fatigue, Malaise, Appetite (loss of) PSYCHOLOGICAL ROS: YES: Disorientation; No: Hallucinations Eyes: No Loss of vision HEENT: No: Epistaxis Respiratory: No: Shortness of breath Cardiovascular: No Chest Pain, No Palpitations Gastrointestinal: No Vomiting, No Diarrhea Genitourinary: No Hematuria Neurological: No Seizures Skin: Yes Rash Physical Exam General: Alert, No acute distress HEENT: Atraumatic, PERRLA Lungs: Clear to auscultation Heart: Regular rate Abdomen: Soft Extremities: No edema Psych/Mental Status: Mood NL Vitals VITALS Vital Signs Date Time Temp Pulse Resp B/P (MAP) Pulse Ox O2 Delivery O2 Flow Rate FiO2 08/26/18 10:00 95 17 116/69 (85) 95 Room Air 08/26/18 08:00 99.0 99.0 Labs Labs Laboratory Tests Test 08/25/18 19:45 08/25/18 20:28 08/25/18 20:30 08/25/18 22:22 White Blood Count 6.2 x10^3/uL (4.0-11.0) Red Blood Count 4.74 x10^6/uL (4.30-5.70) Hemoglobin 14.0 g/dL (13.0-17.5) Hematocrit 40.8 % (39.0-53.0) Mean Corpuscular Volume 86 fL (79-100) Mean Corpuscular Hemoglobin 30 pg (25-35) Mean Corpuscular Hemoglobin Concent 34 g/dL (31-37) Red Cell Distribution Width 15.7 % (11.5-14.5) Platelet Count 17 x10^3/uL (140-400) Neutrophils (%) (Auto) 97 % (31-73) Lymphocytes (%) (Auto) 1 % (24-48) Monocytes (%) (Auto) 2 % (0-9) Eosinophils (%) (Auto) 0 % (0-3) Basophils (%) (Auto) 0 % (0-3) Neutrophils # (Auto) 6.1 x10^3uL (1.8-7.7) Lymphocytes # (Auto) 0.1 x10^3/uL (1.0-4.8) Monocytes # (Auto) 0.1 x10^3/uL (0.0-1.1) Eosinophils # (Auto) 0.0 x10^3/uL (0.0-0.7) Basophils # (Auto) 0.0 x10^3/uL (0.0-0.2) Segmented Neutrophils % 68 % (35-66) Band Neutrophils % 24 % (0-9) Lymphocytes % 5 % (24-48) Metamyelocytes % 3 % (0-0) Toxic Granulation Slight Toxic Vacuolation Mod Platelet Estimate Decreased (ADEQUATE) Erythrocyte Sedimentation Rate 11 (0-15) Prothrombin Time 13.4 SEC (11.7-14.0) Prothromb Time International Ratio 1.1 (0.8-1.1) Activated Partial Thromboplast Time 38 SEC (24-38) Sodium Level 128 mmol/L (136-145) Potassium Level 3.7 mmol/L (3.5-5.1) Chloride Level 91 mmol/L (98-107) Carbon Dioxide Level 20 mmol/L (21-32) Anion Gap 17 (6-14) Blood Urea Nitrogen 45 mg/dL (8-26) Creatinine 3.9 mg/dL (0.7-1.3) Estimated GFR (Cockcroft-Gault) 16.3 BUN/Creatinine Ratio 12 (6-20) Glucose Level 94 mg/dL (70-99) Lactic Acid Level 5.3 mmol/L (0.4-2.0) Calcium Level 7.6 mg/dL (8.5-10.1) Magnesium Level 1.3 mg/dL (1.8-2.4) Total Bilirubin 4.7 mg/dL (0.2-1.0) Aspartate Amino Transf (AST/SGOT) 233 U/L (15-37) Alanine Aminotransferase (ALT/SGPT) 127 U/L (16-63) Alkaline Phosphatase 215 U/L (46-116) Ammonia < 10 mcmol/L (11-34) Lactate Dehydrogenase 1240 U/L (85-227) Creatine Kinase 284 U/L (39-308) Creatine Kinase MB (Mass) 1.7 ng/mL (0.0-3.6) Creatine Kinase MB Relative Index 0.6 % (0-4) Troponin I Quantitative 0.111 ng/mL (0.000-0.055) C-Reactive Protein, Quantitative 242.9 mg/L (0-3.3) Total Protein 6.0 g/dL (6.4-8.2) Albumin 2.5 g/dL (3.4-5.0) Albumin/Globulin Ratio 0.7 (1.0-1.7) Lipase 425 U/L (73-393) Ethyl Alcohol Level < 10 mg/dL (0-10) Heterophil Agglutinins Negative (NEGATIVE) Influenza Type A Antigen Negative (NEGATIVE) Influenza Type B Antigen Negative (NEGATIVE) Group A Streptococcus Rapid Negative (NEGATIVE) Urine Collection Type Unknown Urine Color Patrizia Urine Clarity Cloudy Urine pH 5.5 Urine Specific [place] 1.020 Urine Protein 100 mg/dL (NEG-TRACE) Urine Glucose (UA) Negative mg/dL (NEG) Urine Ketones (Stick) Negative mg/dL (NEG) Urine Blood Small (NEG) Urine Nitrite Negative (NEG) Urine Bilirubin Moderate (NEG) Urine Urobilinogen Dipstick 1.0 mg/dL (0.2 mg/dL) Urine Leukocyte Esterase Negative (NEG) Urine RBC Occ /HPF (0-2) Urine WBC Occ /HPF (0-4) Urine Squamous Epithelial Cells Occ /LPF Urine Transitional Epithelial Cells Occ /LPF Urine Amorphous Sediment Present /HPF Urine Bacteria 0 /HPF (0-FEW) Urine Opiates Screen Neg (NEG) Urine Methadone Screen Neg (NEG) Urine Barbiturates Neg (NEG) Urine Phencyclidine Screen Neg (NEG) Urine Amphetamine/Methamphetamine Neg (NEG) Urine Benzodiazepines Screen Neg (NEG) Urine Cocaine Screen Neg (NEG) Urine Cannabinoids Screen Neg (NEG) Urine Ethyl Alcohol Neg (NEG) Test 08/26/18 00:15 08/26/18 03:15 08/26/18 09:45 Lactic Acid Level 5.1 mmol/L (0.4-2.0) 4.9 mmol/L (0.4-2.0) 4.5 mmol/L (0.4-2.0) Troponin I Quantitative 0.160 ng/mL (0.000-0.055) 0.165 ng/mL (0.000-0.055) White Blood Count 6.5 x10^3/uL (4.0-11.0) Red Blood Count 4.54 x10^6/uL (4.30-5.70) Hemoglobin 13.3 g/dL (13.0-17.5) Hematocrit 39.3 % (39.0-53.0) Mean Corpuscular Volume 86 fL (79-100) Mean Corpuscular Hemoglobin 29 pg (25-35) Mean Corpuscular Hemoglobin Concent 34 g/dL (31-37) Red Cell Distribution Width 15.9 % (11.5-14.5) Platelet Count 17 x10^3/uL (140-400) Neutrophils (%) (Auto) 98 % (31-73) Lymphocytes (%) (Auto) 2 % (24-48) Monocytes (%) (Auto) 1 % (0-9) Eosinophils (%) (Auto) 0 % (0-3) Basophils (%) (Auto) 0 % (0-3) Neutrophils # (Auto) 6.4 x10^3uL (1.8-7.7) Lymphocytes # (Auto) 0.1 x10^3/uL (1.0-4.8) Monocytes # (Auto) 0.0 x10^3/uL (0.0-1.1) Eosinophils # (Auto) 0.0 x10^3/uL (0.0-0.7) Basophils # (Auto) 0.0 x10^3/uL (0.0-0.2) Absolute Reticulocyte Count 0.030 x10^6/uL (0.020-0.120) Percent Reticulocyte Count 0.7 % (0.5-2.3) Immature Reticulocyte Fraction 0.35 (0.20-0.60) Prothrombin Time 14.2 SEC (11.7-14.0) Prothromb Time International Ratio 1.1 (0.8-1.1) Activated Partial Thromboplast Time 44 SEC (24-38) Fibrinogen 319 mg/dL (200-440) D-Dimer ([place]) 12.89 ug/mlFEU (0.00-0.50) Sodium Level 129 mmol/L (136-145) Potassium Level 3.5 mmol/L (3.5-5.1) Chloride Level 94 mmol/L (98-107) Carbon Dioxide Level 16 mmol/L (21-32) Anion Gap 19 (6-14) Blood Urea Nitrogen 53 mg/dL (8-26) Creatinine 4.7 mg/dL (0.7-1.3) Estimated GFR (Cockcroft-Gault) 13.1 BUN/Creatinine Ratio 11 (6-20) Glucose Level 80 mg/dL (70-99) Calcium Level 6.8 mg/dL (8.5-10.1) Total Bilirubin 4.7 mg/dL (0.2-1.0) Direct Bilirubin 4.2 mg/dL (0.0-0.2) Aspartate Amino Transf (AST/SGOT) 288 U/L (15-37) Alanine Aminotransferase (ALT/SGPT) 127 U/L (16-63) Alkaline Phosphatase 200 U/L (46-116) Total Protein 5.3 g/dL (6.4-8.2) Albumin 2.1 g/dL (3.4-5.0) Albumin/Globulin Ratio 0.7 (1.0-1.7) Lipase 516 U/L (73-393) Procalcitonin 19.50 ng/mL (0.00-0.10) Ionized Calcium 0.85 mmol/L (1.13-1.32) Ammonia 13 mcmol/L (11-34) Laboratory Tests Test 08/25/18 19:45 08/25/18 20:28 08/25/18 20:30 08/25/18 22:22 White Blood Count 6.2 x10^3/uL (4.0-11.0) Red Blood Count 4.74 x10^6/uL (4.30-5.70) Hemoglobin 14.0 g/dL (13.0-17.5) Hematocrit 40.8 % (39.0-53.0) Mean Corpuscular Volume 86 fL (79-100) Mean Corpuscular Hemoglobin 30 pg (25-35) Mean Corpuscular Hemoglobin Concent 34 g/dL (31-37) Red Cell Distribution Width 15.7 % (11.5-14.5) Platelet Count 17 x10^3/uL (140-400) Neutrophils (%) (Auto) 97 % (31-73) Lymphocytes (%) (Auto) 1 % (24-48) Monocytes (%) (Auto) 2 % (0-9) Eosinophils (%) (Auto) 0 % (0-3) Basophils (%) (Auto) 0 % (0-3) Neutrophils # (Auto) 6.1 x10^3uL (1.8-7.7) Lymphocytes # (Auto) 0.1 x10^3/uL (1.0-4.8) Monocytes # (Auto) 0.1 x10^3/uL (0.0-1.1) Eosinophils # (Auto) 0.0 x10^3/uL (0.0-0.7) Basophils # (Auto) 0.0 x10^3/uL (0.0-0.2) Segmented Neutrophils % 68 % (35-66) Band Neutrophils % 24 % (0-9) Lymphocytes % 5 % (24-48) Metamyelocytes % 3 % (0-0) Toxic Granulation Slight Toxic Vacuolation Mod Platelet Estimate Decreased (ADEQUATE) Erythrocyte Sedimentation Rate 11 (0-15) Prothrombin Time 13.4 SEC (11.7-14.0) Prothromb Time International Ratio 1.1 (0.8-1.1) Activated Partial Thromboplast Time 38 SEC (24-38) Sodium Level 128 mmol/L (136-145) Potassium Level 3.7 mmol/L (3.5-5.1) Chloride Level 91 mmol/L (98-107) Carbon Dioxide Level 20 mmol/L (21-32) Anion Gap 17 (6-14) Blood Urea Nitrogen 45 mg/dL (8-26) Creatinine 3.9 mg/dL (0.7-1.3) Estimated GFR (Cockcroft-Gault) 16.3 BUN/Creatinine Ratio 12 (6-20) Glucose Level 94 mg/dL (70-99) Lactic Acid Level 5.3 mmol/L (0.4-2.0) Calcium Level 7.6 mg/dL (8.5-10.1) Magnesium Level 1.3 mg/dL (1.8-2.4) Total Bilirubin 4.7 mg/dL (0.2-1.0) Aspartate Amino Transf (AST/SGOT) 233 U/L (15-37) Alanine Aminotransferase (ALT/SGPT) 127 U/L (16-63) Alkaline Phosphatase 215 U/L (46-116) Ammonia < 10 mcmol/L (11-34) Lactate Dehydrogenase 1240 U/L (85-227) Creatine Kinase 284 U/L (39-308) Creatine Kinase MB (Mass) 1.7 ng/mL (0.0-3.6) Creatine Kinase MB Relative Index 0.6 % (0-4) Troponin I Quantitative 0.111 ng/mL (0.000-0.055) C-Reactive Protein, Quantitative 242.9 mg/L (0-3.3) Total Protein 6.0 g/dL (6.4-8.2) Albumin 2.5 g/dL (3.4-5.0) Albumin/Globulin Ratio 0.7 (1.0-1.7) Lipase 425 U/L (73-393) Ethyl Alcohol Level < 10 mg/dL (0-10) Heterophil Agglutinins Negative (NEGATIVE) Influenza Type A Antigen Negative (NEGATIVE) Influenza Type B Antigen Negative (NEGATIVE) Group A Streptococcus Rapid Negative (NEGATIVE) Urine Collection Type Unknown Urine Color Patrizia Urine Clarity Cloudy Urine pH 5.5 Urine Specific [place] 1.020 Urine Protein 100 mg/dL (NEG-TRACE) Urine Glucose (UA) Negative mg/dL (NEG) Urine Ketones (Stick) Negative mg/dL (NEG) Urine Blood Small (NEG) Urine Nitrite Negative (NEG) Urine Bilirubin Moderate (NEG) Urine Urobilinogen Dipstick 1.0 mg/dL (0.2 mg/dL) Urine Leukocyte Esterase Negative (NEG) Urine RBC Occ /HPF (0-2) Urine WBC Occ /HPF (0-4) Urine Squamous Epithelial Cells Occ /LPF Urine Transitional Epithelial Cells Occ /LPF Urine Amorphous Sediment Present /HPF Urine Bacteria 0 /HPF (0-FEW) Urine Opiates Screen Neg (NEG) Urine Methadone Screen Neg (NEG) Urine Barbiturates Neg (NEG) Urine Phencyclidine Screen Neg (NEG) Urine Amphetamine/Methamphetamine Neg (NEG) Urine Benzodiazepines Screen Neg (NEG) Urine Cocaine Screen Neg (NEG) Urine Cannabinoids Screen Neg (NEG) Urine Ethyl Alcohol Neg (NEG) Test 08/26/18 00:15 08/26/18 03:15 08/26/18 09:45 Lactic Acid Level 5.1 mmol/L (0.4-2.0) 4.9 mmol/L (0.4-2.0) 4.5 mmol/L (0.4-2.0) Troponin I Quantitative 0.160 ng/mL (0.000-0.055) 0.165 ng/mL (0.000-0.055) White Blood Count 6.5 x10^3/uL (4.0-11.0) Red Blood Count 4.54 x10^6/uL (4.30-5.70) Hemoglobin 13.3 g/dL (13.0-17.5) Hematocrit 39.3 % (39.0-53.0) Mean Corpuscular Volume 86 fL (79-100) Mean Corpuscular Hemoglobin 29 pg (25-35) Mean Corpuscular Hemoglobin Concent 34 g/dL (31-37) Red Cell Distribution Width 15.9 % (11.5-14.5) Platelet Count 17 x10^3/uL (140-400) Neutrophils (%) (Auto) 98 % (31-73) Lymphocytes (%) (Auto) 2 % (24-48) Monocytes (%) (Auto) 1 % (0-9) Eosinophils (%) (Auto) 0 % (0-3) Basophils (%) (Auto) 0 % (0-3) Neutrophils # (Auto) 6.4 x10^3uL (1.8-7.7) Lymphocytes # (Auto) 0.1 x10^3/uL (1.0-4.8) Monocytes # (Auto) 0.0 x10^3/uL (0.0-1.1) Eosinophils # (Auto) 0.0 x10^3/uL (0.0-0.7) Basophils # (Auto) 0.0 x10^3/uL (0.0-0.2) Absolute Reticulocyte Count 0.030 x10^6/uL (0.020-0.120) Percent Reticulocyte Count 0.7 % (0.5-2.3) Immature Reticulocyte Fraction 0.35 (0.20-0.60) Prothrombin Time 14.2 SEC (11.7-14.0) Prothromb Time International Ratio 1.1 (0.8-1.1) Activated Partial Thromboplast Time 44 SEC (24-38) Fibrinogen 319 mg/dL (200-440) D-Dimer ([place]) 12.89 ug/mlFEU (0.00-0.50) Sodium Level 129 mmol/L (136-145) Potassium Level 3.5 mmol/L (3.5-5.1) Chloride Level 94 mmol/L (98-107) Carbon Dioxide Level 16 mmol/L (21-32) Anion Gap 19 (6-14) Blood Urea Nitrogen 53 mg/dL (8-26) Creatinine 4.7 mg/dL (0.7-1.3) Estimated GFR (Cockcroft-Gault) 13.1 BUN/Creatinine Ratio 11 (6-20) Glucose Level 80 mg/dL (70-99) Calcium Level 6.8 mg/dL (8.5-10.1) Total Bilirubin 4.7 mg/dL (0.2-1.0) Direct Bilirubin 4.2 mg/dL (0.0-0.2) Aspartate Amino Transf (AST/SGOT) 288 U/L (15-37) Alanine Aminotransferase (ALT/SGPT) 127 U/L (16-63) Alkaline Phosphatase 200 U/L (46-116) Total Protein 5.3 g/dL (6.4-8.2) Albumin 2.1 g/dL (3.4-5.0) Albumin/Globulin Ratio 0.7 (1.0-1.7) Lipase 516 U/L (73-393) Procalcitonin 19.50 ng/mL (0.00-0.10) Ionized Calcium 0.85 mmol/L (1.13-1.32) Ammonia 13 mcmol/L (11-34) Assessment/Plan Assessment/Plan 1. Tickborne illness. Continue current workup and treatment per ID team. 2. Acute renal and hepatic insufficiency probably related to #1. Nephrology and gastroenterology teams following. 3. Slightly elevated troponin level most probably demand ischemia. Check 2-D echo to assess LV function and rule out wall motion abnormalities. Ischemic workup could be considered as an outpatient. 4. Mental status changes most probably metabolic encephalopathy, presently improving. 5. Hemochromatosis Thank you for your consultation KRISSY HOPE MD August 26, 2018 11:18
[2018-08-26 11:23] LABS: PROTHROMBIN TIME PATIENT 14.3 SEC (11.7-14.0)
[2018-08-26 11:32] LABS: PLATELET COUNT 15 x10^3/uL (140-400)
[2018-08-26 11:45] LABS: ALBUMIN 2.2 g/dL (3.4-5.0); ALBUMIN/GLOBULIN RATIO 0.7 (1.0-1.7); CALCIUM 7.2 mg/dL (8.5-10.1); CREATININE 4.7 mg/dL (0.7-1.3); GFR 13.1; POTASSIUM 3.6 mmol/L (3.5-5.1); TOTAL BILIRUBIN 4.6 mg/dL (0.2-1.0); TOTAL PROTEIN 5.3 g/dL (6.4-8.2)
--- NOTE | 2018-08-26 11:46 | PDOC2 ---
GI CONSULT Reason For Consult: Abnormal LFT's HPI: HPI: 52 y/o male with one week history of febrile illness with general fatigue/achiness. H/o prior tick bite at [employer] camp. No real GI symptoms other than occasional N and V, but on evaluation here, elevated LFT's. H/o hemochromatosis, but no other liver history. Follows at with phlebotomies ~q 3 months. Extensive liver w/u there and historically no viral issues. H/o heartburn, more prominent past 6 weeks. No dysphagia. No prior EGD. Denies PUD, GB, pancreatic history. No tobacco use. Occasional alcohol, NSAID use. Typically w/o diarrhea or constipation. Denies overt GI bleeding. Wt/appetite usually OK. Negative screening colonoscopy 2 years ago. GIFH positive for hemochromatosis in father, otherwise unremarkable. 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) ROS: GEN: + fevers, chills, sweats HEENT: Denies blurred vision, sore throat CV: Denies chest pain RESP: Denies shortness of air, cough GI: Per HPI : Denies hematuria, dysuria ENDO: Denies weight changes NEURO: Denies confusion, dizziness MSK: Denies weakness, joint pain/swelling SKIN: Denies jaundice, pruritus Vitals: Vitals: Vital Signs Date Time Temp Pulse Resp B/P (MAP) Pulse Ox O2 Delivery O2 Flow Rate FiO2 08/26/18 11:00 87 21 116/72 (87) 93 Room Air 08/26/18 08:00 99.0 99.0 Labs: Labs: Laboratory Tests Test 08/25/18 19:45 08/25/18 20:28 08/25/18 20:30 08/25/18 22:22 White Blood Count 6.2 x10^3/uL (4.0-11.0) Red Blood Count 4.74 x10^6/uL (4.30-5.70) Hemoglobin 14.0 g/dL (13.0-17.5) Hematocrit 40.8 % (39.0-53.0) Mean Corpuscular Volume 86 fL (79-100) Mean Corpuscular Hemoglobin 30 pg (25-35) Mean Corpuscular Hemoglobin Concent 34 g/dL (31-37) Red Cell Distribution Width 15.7 % (11.5-14.5) Platelet Count 17 x10^3/uL (140-400) Neutrophils (%) (Auto) 97 % (31-73) Lymphocytes (%) (Auto) 1 % (24-48) Monocytes (%) (Auto) 2 % (0-9) Eosinophils (%) (Auto) 0 % (0-3) Basophils (%) (Auto) 0 % (0-3) Neutrophils # (Auto) 6.1 x10^3uL (1.8-7.7) Lymphocytes # (Auto) 0.1 x10^3/uL (1.0-4.8) Monocytes # (Auto) 0.1 x10^3/uL (0.0-1.1) Eosinophils # (Auto) 0.0 x10^3/uL (0.0-0.7) Basophils # (Auto) 0.0 x10^3/uL (0.0-0.2) Segmented Neutrophils % 68 % (35-66) Band Neutrophils % 24 % (0-9) Lymphocytes % 5 % (24-48) Metamyelocytes % 3 % (0-0) Toxic Granulation Slight Toxic Vacuolation Mod Platelet Estimate Decreased (ADEQUATE) Erythrocyte Sedimentation Rate 11 (0-15) Prothrombin Time 13.4 SEC (11.7-14.0) Prothromb Time International Ratio 1.1 (0.8-1.1) Activated Partial Thromboplast Time 38 SEC (24-38) Sodium Level 128 mmol/L (136-145) Potassium Level 3.7 mmol/L (3.5-5.1) Chloride Level 91 mmol/L (98-107) Carbon Dioxide Level 20 mmol/L (21-32) Anion Gap 17 (6-14) Blood Urea Nitrogen 45 mg/dL (8-26) Creatinine 3.9 mg/dL (0.7-1.3) Estimated GFR (Cockcroft-Gault) 16.3 BUN/Creatinine Ratio 12 (6-20) Glucose Level 94 mg/dL (70-99) Lactic Acid Level 5.3 mmol/L (0.4-2.0) Calcium Level 7.6 mg/dL (8.5-10.1) Magnesium Level 1.3 mg/dL (1.8-2.4) Total Bilirubin 4.7 mg/dL (0.2-1.0) Aspartate Amino Transf (AST/SGOT) 233 U/L (15-37) Alanine Aminotransferase (ALT/SGPT) 127 U/L (16-63) Alkaline Phosphatase 215 U/L (46-116) Ammonia < 10 mcmol/L (11-34) Lactate Dehydrogenase 1240 U/L (85-227) Creatine Kinase 284 U/L (39-308) Creatine Kinase MB (Mass) 1.7 ng/mL (0.0-3.6) Creatine Kinase MB Relative Index 0.6 % (0-4) Troponin I Quantitative 0.111 ng/mL (0.000-0.055) C-Reactive Protein, Quantitative 242.9 mg/L (0-3.3) Total Protein 6.0 g/dL (6.4-8.2) Albumin 2.5 g/dL (3.4-5.0) Albumin/Globulin Ratio 0.7 (1.0-1.7) Lipase 425 U/L (73-393) Ethyl Alcohol Level < 10 mg/dL (0-10) Heterophil Agglutinins Negative (NEGATIVE) Influenza Type A Antigen Negative (NEGATIVE) Influenza Type B Antigen Negative (NEGATIVE) Group A Streptococcus Rapid Negative (NEGATIVE) Urine Collection Type Unknown Urine Color Patrizia Urine Clarity Cloudy Urine pH 5.5 Urine Specific [place] 1.020 Urine Protein 100 mg/dL (NEG-TRACE) Urine Glucose (UA) Negative mg/dL (NEG) Urine Ketones (Stick) Negative mg/dL (NEG) Urine Blood Small (NEG) Urine Nitrite Negative (NEG) Urine Bilirubin Moderate (NEG) Urine Urobilinogen Dipstick 1.0 mg/dL (0.2 mg/dL) Urine Leukocyte Esterase Negative (NEG) Urine RBC Occ /HPF (0-2) Urine WBC Occ /HPF (0-4) Urine Squamous Epithelial Cells Occ /LPF Urine Transitional Epithelial Cells Occ /LPF Urine Amorphous Sediment Present /HPF Urine Bacteria 0 /HPF (0-FEW) Urine Opiates Screen Neg (NEG) Urine Methadone Screen Neg (NEG) Urine Barbiturates Neg (NEG) Urine Phencyclidine Screen Neg (NEG) Urine Amphetamine/Methamphetamine Neg (NEG) Urine Benzodiazepines Screen Neg (NEG) Urine Cocaine Screen Neg (NEG) Urine Cannabinoids Screen Neg (NEG) Urine Ethyl Alcohol Neg (NEG) Test 08/26/18 00:15 08/26/18 03:15 08/26/18 09:45 Lactic Acid Level 5.1 mmol/L (0.4-2.0) 4.9 mmol/L (0.4-2.0) 4.5 mmol/L (0.4-2.0) Troponin I Quantitative 0.160 ng/mL (0.000-0.055) 0.165 ng/mL (0.000-0.055) White Blood Count 6.5 x10^3/uL (4.0-11.0) Red Blood Count 4.54 x10^6/uL (4.30-5.70) Hemoglobin 13.3 g/dL (13.0-17.5) Hematocrit 39.3 % (39.0-53.0) Mean Corpuscular Volume 86 fL (79-100) Mean Corpuscular Hemoglobin 29 pg (25-35) Mean Corpuscular Hemoglobin Concent 34 g/dL (31-37) Red Cell Distribution Width 15.9 % (11.5-14.5) Platelet Count 17 x10^3/uL (140-400) Neutrophils (%) (Auto) 98 % (31-73) Lymphocytes (%) (Auto) 2 % (24-48) Monocytes (%) (Auto) 1 % (0-9) Eosinophils (%) (Auto) 0 % (0-3) Basophils (%) (Auto) 0 % (0-3) Neutrophils # (Auto) 6.4 x10^3uL (1.8-7.7) Lymphocytes # (Auto) 0.1 x10^3/uL (1.0-4.8) Monocytes # (Auto) 0.0 x10^3/uL (0.0-1.1) Eosinophils # (Auto) 0.0 x10^3/uL (0.0-0.7) Basophils # (Auto) 0.0 x10^3/uL (0.0-0.2) Absolute Reticulocyte Count 0.030 x10^6/uL (0.020-0.120) Percent Reticulocyte Count 0.7 % (0.5-2.3) Immature Reticulocyte Fraction 0.35 (0.20-0.60) Prothrombin Time 14.2 SEC (11.7-14.0) Prothromb Time International Ratio 1.1 (0.8-1.1) Activated Partial Thromboplast Time 44 SEC (24-38) Fibrinogen 319 mg/dL (200-440) D-Dimer ([place]) 12.89 ug/mlFEU (0.00-0.50) Sodium Level 129 mmol/L (136-145) Potassium Level 3.5 mmol/L (3.5-5.1) Chloride Level 94 mmol/L (98-107) Carbon Dioxide Level 16 mmol/L (21-32) Anion Gap 19 (6-14) Blood Urea Nitrogen 53 mg/dL (8-26) Creatinine 4.7 mg/dL (0.7-1.3) Estimated GFR (Cockcroft-Gault) 13.1 BUN/Creatinine Ratio 11 (6-20) Glucose Level 80 mg/dL (70-99) Calcium Level 6.8 mg/dL (8.5-10.1) Total Bilirubin 4.7 mg/dL (0.2-1.0) Direct Bilirubin 4.2 mg/dL (0.0-0.2) Aspartate Amino Transf (AST/SGOT) 288 U/L (15-37) Alanine Aminotransferase (ALT/SGPT) 127 U/L (16-63) Alkaline Phosphatase 200 U/L (46-116) Total Protein 5.3 g/dL (6.4-8.2) Albumin 2.1 g/dL (3.4-5.0) Albumin/Globulin Ratio 0.7 (1.0-1.7) Lipase 516 U/L (73-393) Procalcitonin 19.50 ng/mL (0.00-0.10) Ionized Calcium 0.85 mmol/L (1.13-1.32) Ammonia 13 mcmol/L (11-34) Allergies: Coded Allergies: aspirin (Verified Allergy, Intermediate, 02/03/16) pentazocine (Verified Allergy, Intermediate, 02/03/16) Medications: Current Medications Medications (Trade) Dose Ordered Sig/Noemi Route PRN Reason Start Time Stop Time Status Last Admin Dose Admin Sodium Chloride 1,000 ml @ 1,000 mls/hr 1X ONCE IV 08/25/18 19:15 08/25/18 20:14 DC 08/25/18 20:38 Ibuprofen (Motrin) 600 mg 1X ONCE PO 08/25/18 19:45 08/25/18 19:49 DC 08/25/18 20:38 Sodium Chloride 1,000 ml @ 1,000 mls/hr 1X ONCE IV 08/25/18 20:30 08/25/18 21:29 DC 08/25/18 20:30 Ceftriaxone Sodium (Rocephin) 1 gm 1X ONCE IVP 08/25/18 20:30 08/25/18 20:31 DC 08/25/18 20:36 Vancomycin HCl 2 gm/Sodium Chloride 500 ml @ 250 mls/hr 1X ONCE IV 08/25/18 21:30 08/25/18 23:29 DC 08/25/18 23:10 Sodium Chloride 1,000 ml @ 1,000 mls/hr 1X ONCE IV 08/25/18 21:00 08/25/18 21:59 DC 08/25/18 23:51 Aztreonam (Azactam) 2 gm 1X ONCE IVP 08/25/18 21:15 08/25/18 21:16 DC 08/25/18 21:15 Magnesium Sulfate 50 ml @ 25 mls/hr 1X ONCE IV 08/25/18 21:15 08/25/18 23:14 DC 08/25/18 23:51 Sodium Chloride 1,000 ml @ 125 mls/hr 1X ONCE IV 08/25/18 21:15 08/26/18 05:14 DC 08/25/18 23:09 Meropenem 500 mg/ Sodium Chloride 50 ml @ 100 mls/hr 1X ONCE IV 08/25/18 22:00 08/25/18 22:29 DC 08/25/18 22:12 Doxycycline Hyclate 100 mg/ Dextrose 100 ml @ 50 mls/hr Q12HR IV 08/26/18 09:00 08/26/18 10:57 Imaging: Imaging: Formal report of sono pending, but tech sheet mentions mild hepatosplenomegaly. PE: GEN: NAD HEENT: Atraumatic, PERRLA LUNGS: CTAB HEART: RRR, no murmurs ABD: NABS, S/ND/NT, no masses EXTREMITY: No edema SKIN: No rashes, Mild jaundice NEURO/PSYCH: A & O 3 A/P: A/P: IMP: Febrile illness with abnormal LFT's, thrombocytopenia, high d-dimer, but not too bad INR. Suspect tick-borne illness (Ehrlichia, rickettsial). LFT"s probably secondary to this. Hemochromatosis. Dyspeptic Up to date on CRC screening. REC: General support. ID workup. No platelet transfusions unless bleeding. Continue antibiotics per ID. Anti-secretory if not already on. Will follow. Thank you for allowing me to assist in the care of this patient. Please call if questions. KAVYA LEDESMA MD August 26, 2018 11:45
[2018-08-26] MEDS ORDERED: IV NORMAL SALINE 1000ML BAG 1,000 ML IV PRN ×2 (11:51)
[2018-08-26 11:52] LABS: D-DIMER 0.85 ug/mlFEU (0.00-0.50)
[2018-08-26] MEDS: FAMOTIDINE 20 MG TABLET. PO SCH (12:00)
[2018-08-26] MEDS ORDERED: DIALYSIS PATIENT. MC PRN ×2 (12:00)
--- NOTE | 2018-08-26 12:13 | CONS ---
DATE OF CONSULTATION: 08/26/2018 Delta Luong, nurse practitioner, dictating for Dr. Shayy Lujan. REFERRING PHYSICIAN: Dr. Lantigua. REASON FOR CONSULTATION: Septic shock. HISTORY OF PRESENT ILLNESS: This patient is a 52-year-old male with a past medical history of hemochromatosis who is pretty healthy otherwise and very active. About 3 weeks ago, he was at [facility] [employer] [place] and found a tick embedded on the back of his right thigh. He pulled it out and thought nothing of it. The next day, he was cleaning up a yard with a few other persons from [email or web address]. He recalls kneeling down on his left knee pulling wheat. A few days later, he developed an itchy red blistering rash on his left knee that improved with [id number] ivory rest. He then developed a different type of rash that was itchy, splotchy and red on the inner aspect of both arms. He was seen by his doctor and prescribed Bactrim for infection. 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 About a week later, on Friday 08/18, he went to a men's breakfast and a [employer] meeting. Afterwards, he felt unusually tired. Over the following 24 hours, he did not feel well. He developed fever, chills, joint pains and muscle aches. He alternated taking ibuprofen and Tylenol without relief. He was seen at urgent care center and prescribed prednisone for upper respiratory infection. Unfortunately, he felt worse. He lost his appetite and was not drinking much and was urinating less. His said he was sleeping more, moaned, seemed lethargic and confused, prompting the ER visit. On arrival to the ER, he had a temperature of 100.3, respiratory rate 28. Laboratory values returned abnormal with a WBC count 6.2, segs 68%, bands 24%, platelets 17,000. Lactic acid was 5.1. Sed rate 11. He had elevated LFTs and acute kidney injury. Cultures were ordered. He was dosed with vancomycin, ceftriaxone and aztreonam in the ER. Dr. Shayy Lujan was notified and adjusted his antibiotics to daptomycin, meropenem and doxycycline. The patient is currently in the Intensive Care Unit. He says he is feeling nearly 100% better and is hungry. He had some diarrhea earlier that has since subsided. He denies nausea, vomiting or abdominal pain. He denies headache, nasal/sinus congestion or sore throat. Denies cough, shortness of air or chest discomfort. He says the rash has since resolved. PAST MEDICAL HISTORY: Hemochromatosis. He is followed by Dr. Iverson at [facility] and is undergoing phlebotomy which was last done in 06/2018. Obstructive sleep apnea, hypertension. PAST SURGICAL HISTORY: [place] teeth extraction. FAMILY HISTORY: Positive for obesity, hypertension. SOCIAL HISTORY: The patient is and lives at home. He is a nonsmoker. He is employed as a dispatcher for [employer]. He is active in [employer]. ALLERGIES: ASPIRIN, PENTAZOCINE. MEDICATIONS: Daptomycin and doxycycline, one-time dose of meropenem, one-time dose of vancomycin, one-time dose of ceftriaxone, one-time dose of azithromycin, one-time dose of ibuprofen. Other medications are available and have been reviewed on the JUN. HOME MEDICATIONS: Include recent prescription Bactrim. REVIEW OF SYSTEMS: As per HPI, otherwise all other review of systems are negative. PHYSICAL EXAMINATION: VITAL SIGNS: Temperature is 99.0, blood pressure 125/68, heart rate 86, respiratory rate 18, pulse oximetry 94% on room air. BMI 35. GENERAL: The patient is slightly propped up in bed, alert, in no apparent distress. HEENT: Pupils equally round, reactive. Normal conjunctivae. Oral cavity: Pharynx pink, dry. NECK: Supple. LUNGS: Clear to auscultation. HEART: S1 and S2. ABDOMEN: Obese, soft, nontender with bowel sounds present. EXTREMITIES: No gross edema or cyanosis. SKIN: Warm without rash. Left knee has several scabs/scarring. NEUROLOGIC: Alert and oriented x 3. LABORATORY DATA: Today's WBC 6.5, hemoglobin 13.3, platelet count 17,000. Lactic acid 4.9, from 5.1. Troponin 0.165. CRP 242.9. Sed rate 11. Total bilirubin 4.7. AST 288, ALT 127. Lipase 516, from 425. Sodium 129, potassium 3.5, creatinine 4.7, BUN 53. glucose 80. Urine toxicology negative. D-dimer 12.89, fibrinogen 319. INR 1.1, PT 14.2, APTT 44. Urinalysis showed occasional wbc's, moderate bilirubin, no bacteria. Blood cultures pending. Hepatitis panel negative. Influenza screen negative. Group A strep rapid negative. Heterophil agglutinins negative. Abdominal ultrasound pending. Chest x-ray showed possible small effusions; small nodule versus nipple shadow on the right; no acute infiltrates. Abdominal/pelvis CT from 08/24 showed no acute abdominal or pelvic abnormality; minimal fatty infiltration of the liver; mild atelectasis in the bilateral lower lobes. Head CT from 08/24 showed no acute intracranial abnormality. IMPRESSION: 1. Tick-borne illness, suspected. with h/o tick bite 3 weeks ago at [place] 2. Lactic acidosis. 3. Fever. 4. Bandemia. 5. Acute hepatic injury. 6. Acute kidney injury. 7. Thrombocytopenia. 8. Hemochromatosis. 9. LLE dermatitis improving, ? poison [place],resolving with local treatment PLAN: Continue the daptomycin and doxycycline. Restart meropenem. renal dosing. Ehrlichia antibody,RMSF serologies has been ordered. We will follow up on blood culture results. Continue to monitor lab values and for antibiotic toxicities. Consult Nephrology for acute kidney injury. Pt has HDC placement. Awaiting HD. Monitor I's and O's. Discussed with the patient's at bedside and nursing. Thank you, Dr. Lantigua, for asking us to participate in this patient's care. Should you have further questions or concerns, please call. SHAYY LUJAN MD DR: DANIA/haleigh JOB#: [id number] / [id number] ISELA
[2018-08-26] MEDS ORDERED: LIDOCAINE WITH 8.4% SOD BICARB 3 ML DISP.SYRIN. INJ ONE (12:45)
[2018-08-26] MEDS ORDERED: HEPARIN for IV BOLUS 10,000 UNIT/10 ML VIAL. ONE (12:49)
[2018-08-26] MEDS ORDERED: LIDOCAINE WITH 8.4% SOD BICARB 3 ML DISP.SYRIN. ONE (12:49)
--- NOTE | 2018-08-26 13:39 | RAD ---
Procedures: Ultrasound guided non-tunneled central line placement. The procedure, risk and complications to include bleeding, infection, pneumothorax, air embolism and arrhythmia, were discussed at length with the patient and they understood and wished to proceed. All questions were answered. Consent form signed. The procedure was done portably in the ICU due to unstable patient status. The neck was prepped and draped using maximal sterile technique and a 1% Xylocaine was used for local anesthesia. Ultrasound-guided access: The right neck was prepped and draped in the usual manner and a 1% Xylocaine was used for local anesthesia. The neck was scanned by ultrasound in the jugular vein is patent and compressible. Under ultrasound guidance, a single wall puncture was made into the vein followed by wire placement with subsequent tract dilation. Ultrasound imaging revealed a patent vein. An ultrasound image was saved and sent to PACS. Next a 14 [place] by 15 centimeter length Schon XL temporary hemodialysis catheter was advanced. The lumens were flushed with 1000 U/cc Heparin. Fluoroscopic Spot Image of the Chest: Fluoroscopy not available at this time. Chest x-ray pending. Complication: none Contrast: none Sedation: none Conclusion: Successful right internal jugular non-tunneled portable central venous hemodialysis catheter placement.
--- NOTE | 2018-08-26 13:51 | RAD ---
EXAM: CHEST 1 VIEW History: Emergent dialysis catheter placement COMPARISON: 08/25/2018 TECHNIQUE: Single portable radiograph of the chest FINDINGS: Low lung volumes and technique accentuates heart size and pulmonary vascular. Right-sided internal jugular dialysis catheter is identified in place. No evidence of pneumothorax. The lungs are clear bilaterally. IMPRESSION: 1. Right-sided internal jugular dialysis catheter in place. No pneumothorax. Electronically signed by: Peter Champion MD (08/26/2018 1:48 PM) [facility]
[2018-08-26] MEDS: MEROPENEM 500 MG in IV NORMAL SALINE 50ML 50 ML IV SCH (13:52)
--- NOTE | 2018-08-26 15:22 | PDOC2 ---
NEUROLOGY CONSULT Date of Admission Date of Admission DATE: 08/26/18 TIME: 15:08 Reason for Consult Reason for Consult: IMPRESSION: Metabolic encephalopathy. Confusion. Fever. Cough. Septic shock. Lactic acidosis. Renal failure. Thrombocytopenia. Hepatomegaly. Tick bite, Hx. Diarrhea. Elevated lipase. HTN. KIKI. Hemochromatosis Obesity. RECOMMENDATIONS/PLAN: EEG. Treat medical diseases. Lab: see orders. OT/PT. HISTORY OF THE PRESENT ILLNESS: 52-y-old male patient with hemochromatosis, KIKI, and HTN presented to the hospital with fevers for about 1 week. He states he was more tired and fatigue. On Mother's Day he had a fever of 101. Next day, he saw his primary care physician and was tested for flu that was negative. He was instructed to take Ibuprofen alternating with Tylenol for the fever. He did that and Monday did not have a fever. On Monday he had a severe headache. He went to Urgent care in [place] and was given prednisone 20mg X 5 days at that time. He states that blood work was performed but does not know results. , he went to work with a mild headache and was tired and fatigued. night, he was found to have a fever of 104 and took ibuprofen. Monday he presented to the ED at [facility] and was evaluated. He stated that about 3 weeks ago he developed rash on his left lower extremity that he thought was poison Lexie. For the hemochromatosis, he follows with Dr. Iverson at [facility] and has been undergoing phlebotomy. His last phlebotomy was in late June of 2018. He h ad increased MS changes and confusion on 08/25, so Neurology was requested consultation on 08/26. Past Medical History KIKI Hemochromatosis HTN Cardiovascular: HTN Pulmonary: No pertinent hx GI: No pertinent hx Heme/Onc: Hemochromatosis Hepatobiliary: No pertinent hx Family History His father had with hemochromatosis, of inoperable brain tumor Social History Lives at home with and three sons. 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 He denies any etoh, drugs and smoking Allergies Coded Allergies: aspirin (Verified Allergy, Intermediate, 02/03/16) pentazocine (Verified Allergy, Intermediate, 02/03/16) MEDICATIONS: Refer to [facility] REVIEW OF SYSTEMS: Constitutional: Obese. Head: No traumatic brain or head injury. Skin: No edema, or rash. Ear: No infection. Eyes: No vision loss or color blindness. Nose: No bleeding or purulent discharges. Hearing: No hearing decrease. Neck: No injury. Cardiac: HTN. Pulmonary: No COPD. GI: No GI ulcer, GI bleeding. Urinary/genital: No dysuria, incontinence, urinary retention. Endocrinologic: No cousin face, craniofacial dysmorphism, polydactyly. Skeletomuscular: Generalized weakness. Neurological: see HP. Psychiatric: Denies drug use/abuse. Otherwise, not [id number] review of systems. PHYSICAL EXAMINATION: General appearance is in subacute distress. HEENT: Normocephalic and nontraumatic. Eyes, nose, ears, and throat are unremarkable. Neck is supple. No lymphadenopathy. No crepitus. Cardiovascular: S1, S2, regular rate and rhythm. Pulmonary: Clear to auscultation bilaterally. Abdomen: Bowel sounds are positive. Extremities: No rash, lesions, or edema. No restriction of range of motion NEUROLOGICAL EXAMINATION: Awake. Oriented to time, place and person. PERRL. EOMI. CN: no focal findings. Muscle tone: within normal. Muscle strength: 4+ DTR: 2- Plantar reflex: Flexor response bilaterally Gait: not examined in bed. Sensory exam: no abnormal findings. No cerebellar signs elicited. F-T-N test accurate. Current Medications Current Medications Current Medications Sodium Chloride 1,000 ml @ 1,000 mls/hr 1X ONCE IV Last administered on 08/25/18 20:38; Start 08/25/18 at 19:15; Stop 08/25/18 at 20:14; Status DC Ibuprofen (Motrin) 600 mg 1X ONCE PO Last administered on 08/25/18 20:38; Start 08/25/18 at 19:45; Stop 08/25/18 at 19:49; Status DC Sodium Chloride 1,000 ml @ 1,000 mls/hr 1X ONCE IV Last administered on 08/25/18 20:30; Start 08/25/18 at 20:30; Stop 08/25/18 at 21:29; Status DC Ceftriaxone Sodium (Rocephin) 1 gm 1X ONCE IVP Last administered on 08/25/18 20:36; Start 08/25/18 at 20:30; Stop 08/25/18 at 20:31; Status DC Vancomycin HCl 2 gm/Sodium Chloride 500 ml @ 250 mls/hr 1X ONCE IV Last administered on 08/25/18at 23:10; Start 08/25/18 at 21:30; Stop 08/25/18 at 23 :29; Status DC Sodium Chloride 1,000 ml @ 1,000 mls/hr 1X ONCE IV Last administered on 08/25/18at 23:51; Start 08/25/18 at 21:00; Stop 08/25/18 at 21:59; Status DC Piperacillin Sod/ Tazobactam Sod 4.5 gm/Sodium Chloride 100 ml @ 200 mls/hr 1X ONCE IV ; Start 08/25/18 at 21:15; Stop 08/25/18 at 21:44; Status DC Aztreonam (Azactam) 2 gm 1X ONCE IVP Last administered on 08/25/18at 21:15; Start 08/25/18 at 21:15; Stop 08/25/18 at 21:16; Status DC Magnesium Sulfate 50 ml @ 25 mls/hr 1X ONCE IV Last administered on 08/25/18at 23:51; Start 08/25/18 at 21:15; Stop 08/25/18 at 23:14; Status DC Ondansetron HCl (Zofran) 4 mg PRN Q8HRS PRN IV NAUSEA/VOMITING; Start 08/25/18 at 21:15; Stop 08/26/18 at 21:14 Acetaminophen (Tylenol) 650 mg PRN Q4HRS PRN PO FEVER; Start 08/25/18 at 21:15; Stop 08/26/18 at 21:14 Sodium Chloride 1,000 ml @ 125 mls/hr 1X ONCE IV Last administered on 08/08 11/26at 23:09; Start 08/25/18 at 21:15; Stop 08/26/18 at 05:14; Status DC Daptomycin 610 mg/ Sodium Chloride 50 ml @ 100 mls/hr QODAY IV ; Start 08/27/18 at 09:00 Meropenem 500 mg/ Sodium Chloride 50 ml @ 100 mls/hr 1X ONCE IV Last administered on 08/25/18at 22:12; Start 08/25/18 at 22:00; Stop 08/25/18 at 22:29; Status DC Doxycycline Hyclate 100 mg/ Dextrose 100 ml @ 50 mls/hr Q12HR IV Last administered on 08/26/18 10:57; Start 08/26/18 at 09:00 Meropenem 500 mg/ Sodium Chloride 50 ml @ 100 mls/hr DAILY IV Last administered on 08/26/18at 13:52; Start 08/26/18 at 09:00 Sodium Chloride (Normal Saline Flush) 10 ml QSHIFT PRN IV AFTER MEDS AND BLOOD DRAWS; Start 08/26/18 at 09:15 Norepinephrine Bitartrate 250 ml @ 0 mls/hr CONT PRN IV PER PROTOCOL; Start 08/26/18 at 09:15 Famotidine (Pepcid) 20 mg DAILY PO Last administered on 08/26/18at 12:00; Start 08/26/18 at 12:00 Sodium Chloride 1,000 ml @ 1,000 mls/hr Q1H PRN IV hypotension; Start 08/26/18 at 11:51; Stop 08/26/18 at 17:50 Sodium Chloride (Normal Saline Flush) 10 ml 1X PRN PRN IV AP catheter pack; Start 08/26/18 at 12:00; Stop 08/27/18 at 11:59 Sodium Chloride (Normal Saline Flush) 10 ml 1X PRN PRN IV ENVIRONMENTAL SERVICE AIDE catheter pack; Start 08/26/18 at 12:00; Stop 08/27/18 at 11:59 Sodium Chloride 1,000 ml @ 400 mls/hr Q2H30M PRN IV PATENCY; Start 08/26/18 at 11:51; Stop 08/26/18 at 23:50 Info (PHARMACY MONITORING -- do not chart) 1 each PRN DAILY PRN MC SEE COMMENTS; Start 08/26/18 at 12:00; Status UNV Info (PHARMACY MONITORING -- do not chart) 1 each PRN DAILY PRN MC SEE COMMENTS; Start 08/26/18 at 12:00 Lidocaine/Sodium Bicarbonate (Buffered Lidocaine 1%) 4 ml 1X ONCE INJ Last a dministered on 08/26/18at 12:45; Start 08/26/18 at 12:45; Stop 08/26/18 at 12:48; Status DC Heparin Sodium (Porcine) (Heparin Sodium) 2,500 unit 1X ONCE INT CAT Last administered on 08/26/18at 12:45; Start 08/26/18 at 12:45; Stop 08/26/18 at 12:48; Status DC Lidocaine/Sodium Bicarbonate (Buffered Lidocaine 1%) 3 ml STK-MED ONCE .ROUTE ; Start 08/26/18 at 12:49; Stop 08/26/18 at 12:50; Status DC Heparin Sodium (Porcine) (Heparin Sodium) 10,000 unit STK-MED ONCE .ROUTE ; Start 08/26/18 at 12:49; Stop 08/26/18 at 12:50; Status DC Active Scripts Active Potassium Chloride 20 Meq Tablet.er 20 Meq PO DAILY Orphenadrine Citrate 100 Mg Tablet.er 100 Mg PO Q12HR Anaprox Ds (Naproxen Sodium) 550 Mg Tablet 550 Mg PO Q12HR Reported Prednisone 20 Mg Tablet 1 Tab PO DAILY Hydrochlorothiazide Tablet (Hydrochlorothiazide) 12.5 Mg Tablet 12.5 Mg PO DAILY Shilpi Allergy (Fexofenadine Hcl) 180 Mg Tablet 1 Tab PO DAILY Allergies Allergies: Allergies Coded Allergies Type Severity Reaction Last Updated Verified aspirin Allergy Intermediate 02/03/16 Yes pentazocine Allergy Intermediate 02/03/16 Yes ROS Review of System The patient denies any associated fevers, chills, headache, ear pain, rhinorrhea, sore throat, stiff neck, productive cough, chest pain, shortness of breath, back or flank pain, abdominal pain, nausea, vomiting, diarrhea, constipation, dysuria, rash, numbness, weakness, tingling, incontinence, difficulty ambulating, or diaphoresis. Physical Exam Physical Exam General: Well developed, well nourished, no acute distress, well appearing HEENT: Pupils equally round and reactive to light, EOMI, no discharge, normal conjunctiva Neck: Supple, no nuchal rigidity, no JVD, trachea midline, no tenderness Cardiac: RRR, no murmurs, no gallops, no rubs Chest/Lungs: CTAB, no wheeze, no rhonchi, no crackles Abdomen: soft, non-distended, no guarding, no peritoneal signs, non-tender Back: No tenderness Extremities: no edema, pulses intact, non-tender,capillary refill <3 sec bilateral upper and lower extremities, Neuro: Alert and oriented x 4, no focal deficits, normal speech Vitals Vitals: Vital Signs Date Time Temp Pulse Resp B/P (MAP) Pulse Ox O2 Delivery O2 Flow Rate FiO2 08/26/18 14:00 93 25 113/48 (69) 96 Room Air 08/26/18 12:00 98.2 98.2 Labs Labs Laboratory Tests Test 08/25/18 19:45 08/25/18 20:28 08/25/18 20:30 08/25/18 22:22 White Blood Count 6.2 x10^3/uL (4.0-11.0) Red Blood Count 4.74 x10^6/uL (4.30-5.70) Hemoglobin 14.0 g/dL (13.0-17.5) Hematocrit 40.8 % (39.0-53.0) Mean Corpuscular Volume 86 fL (79-100) Mean Corpuscular Hemoglobin 30 pg (25-35) Mean Corpuscular Hemoglobin Concent 34 g/dL (31-37) Red Cell Distribution Width 15.7 % (11.5-14.5) Platelet Count 17 x10^3/uL (140-400) Neutrophils (%) (Auto) 97 % (31-73) Lymphocytes (%) (Auto) 1 % (24-48) Monocytes (%) (Auto) 2 % (0-9) Eosinophils (%) (Auto) 0 % (0-3) Basophils (%) (Auto) 0 % (0-3) Neutrophils # (Auto) 6.1 x10^3uL (1.8-7.7) Lymphocytes # (Auto) 0.1 x10^3/uL (1.0-4.8) Monocytes # (Auto) 0.1 x10^3/uL (0.0-1.1) Eosinophils # (Auto) 0.0 x10^3/uL (0.0-0.7) Basophils # (Auto) 0.0 x10^3/uL (0.0-0.2) Segmented Neutrophils % 68 % (35-66) Band Neutrophils % 24 % (0-9) Lymphocytes % 5 % (24-48) Metamyelocytes % 3 % (0-0) Toxic Granulation Slight Toxic Vacuolation Mod Platelet Estimate Decreased (ADEQUATE) Erythrocyte Sedimentation Rate 11 (0-15) Prothrombin Time 13.4 SEC (11.7-14.0) Prothromb Time International Ratio 1.1 (0.8-1.1) Activated Partial Thromboplast Time 38 SEC (24-38) Sodium Level 128 mmol/L (136-145) Potassium Level 3.7 mmol/L (3.5-5.1) Chloride Level 91 mmol/L (98-107) Carbon Dioxide Level 20 mmol/L (21-32) Anion Gap 17 (6-14) Blood Urea Nitrogen 45 mg/dL (8-26) Creatinine 3.9 mg/dL (0.7-1.3) Estimated GFR (Cockcroft-Gault) 16.3 BUN/Creatinine Ratio 12 (6-20) Glucose Level 94 mg/dL (70-99) Lactic Acid Level 5.3 mmol/L (0.4-2.0) Calcium Level 7.6 mg/dL (8.5-10.1) Magnesium Level 1.3 mg/dL (1.8-2.4) Total Bilirubin 4.7 mg/dL (0.2-1.0) Aspartate Amino Transf (AST/SGOT) 233 U/L (15-37) Alanine Aminotransferase (ALT/SGPT) 127 U/L (16-63) Alkaline Phosphatase 215 U/L (46-116) Ammonia < 10 mcmol/L (11-34) Lactate Dehydrogenase 1240 U/L (85-227) Creatine Kinase 284 U/L (39-308) Creatine Kinase MB (Mass) 1.7 ng/mL (0.0-3.6) Creatine Kinase MB Relative Index 0.6 % (0-4) Troponin I Quantitative 0.111 ng/mL (0.000-0.055) C-Reactive Protein, Quantitative 242.9 mg/L (0-3.3) Total Protein 6.0 g/dL (6.4-8.2) Albumin 2.5 g/dL (3.4-5.0) Albumin/Globulin Ratio 0.7 (1.0-1.7) Lipase 425 U/L (73-393) Ethyl Alcohol Level < 10 mg/dL (0-10) Heterophil Agglutinins Negative (NEGATIVE) Influenza Type A Antigen Negative (NEGATIVE) Influenza Type B Antigen Negative (NEGATIVE) Group A Streptococcus Rapid Negative (NEGATIVE) Urine Collection Type Unknown Urine Color Patrizia Urine Clarity Cloudy Urine pH 5.5 Urine Specific [place] 1.020 Urine Protein 100 mg/dL (NEG-TRACE) Urine Glucose (UA) Negative mg/dL (NEG) Urine Ketones (Stick) Negative mg/dL (NEG) Urine Blood Small (NEG) Urine Nitrite Negative (NEG) Urine Bilirubin Moderate (NEG) Urine Urobilinogen Dipstick 1.0 mg/dL (0.2 mg/dL) Urine Leukocyte Esterase Negative (NEG) Urine RBC Occ /HPF (0-2) Urine WBC Occ /HPF (0-4) Urine Squamous Epithelial Cells Occ /LPF Urine Transitional Epithelial Cells Occ /LPF Urine Amorphous Sediment Present /HPF Urine Bacteria 0 /HPF (0-FEW) Urine Opiates Screen Neg (NEG) Urine Methadone Screen Neg (NEG) Urine Barbiturates Neg (NEG) Urine Phencyclidine Screen Neg (NEG) Urine Amphetamine/Methamphetamine Neg (NEG) Urine Benzodiazepines Screen Neg (NEG) Urine Cocaine Screen Neg (NEG) Urine Cannabinoids Screen Neg (NEG) Urine Ethyl Alcohol Neg (NEG) Test 08/26/18 00:15 08/26/18 03:15 08/26/18 09:45 08/26/18 12:15 Lactic Acid Level 5.1 mmol/L (0.4-2.0) 4.9 mmol/L (0.4-2.0) 4.5 mmol/L (0.4-2.0) 5.0 mmol/L (0.4-2.0) Troponin I Quantitative 0.160 ng/mL (0.000-0.055) 0.165 ng/mL (0.000-0.055) White Blood Count 6.5 x10^3/uL (4.0-11.0) 7.5 x10^3/uL (4.0-11.0) Red Blood Count 4.54 x10^6/uL (4.30-5.70) 4.39 x10^6/uL (4.30-5.70) Hemoglobin 13.3 g/dL (13.0-17.5) 12.7 g/dL (13.0-17.5) Hematocrit 39.3 % (39.0-53.0) 37.9 % (39.0-53.0) Mean Corpuscular Volume 86 fL (79-100) 86 fL (79-100) Mean Corpuscular Hemoglobin 29 pg (25-35) 29 pg (25-35) Mean Corpuscular Hemoglobin Concent 34 g/dL (31-37) 33 g/dL (31-37) Red Cell Distribution Width 15.9 % (11.5-14.5) 16.4 % (11.5-14.5) Platelet Count 17 x10^3/uL (140-400) 15 x10^3/uL (140-400) Neutrophils (%) (Auto) 98 % (31-73) 97 % (31-73) Lymphocytes (%) (Auto) 2 % (24-48) 2 % (24-48) Monocytes (%) (Auto) 1 % (0-9) 1 % (0-9) Eosinophils (%) (Auto) 0 % (0-3) 0 % (0-3) Basophils (%) (Auto) 0 % (0-3) 0 % (0-3) Neutrophils # (Auto) 6.4 x10^3uL (1.8-7.7) 7.2 x10^3uL (1.8-7.7) Lymphocytes # (Auto) 0.1 x10^3/uL (1.0-4.8) 0.2 x10^3/uL (1.0-4.8) Monocytes # (Auto) 0.0 x10^3/uL (0.0-1.1) 0.0 x10^3/uL (0.0-1.1) Eosinophils # (Auto) 0.0 x10^3/uL (0.0-0.7) 0.0 x10^3/uL (0.0-0.7) Basophils # (Auto) 0.0 x10^3/uL (0.0-0.2) 0.0 x10^3/uL (0.0-0.2) Absolute Reticulocyte Count 0.030 x10^6/uL (0.020-0.120) Percent Reticulocyte Count 0.7 % (0.5-2.3) Immature Reticulocyte Fraction 0.35 (0.20-0.60) Haptoglobin 94 mg/dL (34-200) Prothrombin Time 14.2 SEC (11.7-14.0) 14.3 SEC (11.7-14.0) Prothromb Time International Ratio 1.1 (0.8-1.1) 1.1 (0.8-1.1) Activated Partial Thromboplast Time 44 SEC (24-38) 47 SEC (24-38) Fibrinogen 319 mg/dL (200-440) 340 mg/dL (200-440) D-Dimer ([place]) 12.89 ug/mlFEU (0.00-0.50) 0.85 ug/mlFEU (0.00-0.50) Sodium Level 129 mmol/L (136-145) 130 mmol/L (136-145) Potassium Level 3.5 mmol/L (3.5-5.1) 3.6 mmol/L (3.5-5.1) Chloride Level 94 mmol/L (98-107) 94 mmol/L (98-107) Carbon Dioxide Level 16 mmol/L (21-32) 16 mmol/L (21-32) Anion Gap 19 (6-14) 20 (6-14) Blood Urea Nitrogen 53 mg/dL (8-26) 54 mg/dL (8-26) Creatinine 4.7 mg/dL (0.7-1.3) 4.7 mg/dL (0.7-1.3) Estimated GFR (Cockcroft-Gault) 13.1 13.1 BUN/Creatinine Ratio 11 (6-20) 11 (6-20) Glucose Level 80 mg/dL (70-99) 77 mg/dL (70-99) Calcium Level 6.8 mg/dL (8.5-10.1) 7.2 mg/dL (8.5-10.1) Total Bilirubin 4.7 mg/dL (0.2-1.0) 4.6 mg/dL (0.2-1.0) Direct Bilirubin 4.2 mg/dL (0.0-0.2) Aspartate Amino Transf (AST/SGOT) 288 U/L (15-37) 313 U/L (15-37) Alanine Aminotransferase (ALT/SGPT) 127 U/L (16-63) 135 U/L (16-63) Alkaline Phosphatase 200 U/L (46-116) 197 U/L (46-116) Total Protein 5.3 g/dL (6.4-8.2) 5.3 g/dL (6.4-8.2) Albumin 2.1 g/dL (3.4-5.0) 2.2 g/dL (3.4-5.0) Albumin/Globulin Ratio 0.7 (1.0-1.7) 0.7 (1.0-1.7) Lipase 516 U/L (73-393) Procalcitonin 19.50 ng/mL (0.00-0.10) Hepatitis B Surface Antigen Nonreactive (Nonreactive) Hepatitis B Surface Antibody Reactive Ionized Calcium 0.85 mmol/L (1.13-1.32) Ammonia 13 mcmol/L (11-34) Laboratory Tests Test 08/25/18 19:45 08/25/18 20:28 08/25/18 20:30 08/25/18 22:22 White Blood Count 6.2 x10^3/uL (4.0-11.0) Red Blood Count 4.74 x10^6/uL (4.30-5.70) Hemoglobin 14.0 g/dL (13.0-17.5) Hematocrit 40.8 % (39.0-53.0) Mean Corpuscular Volume 86 fL (79-100) Mean Corpuscular Hemoglobin 30 pg (25-35) Mean Corpuscular Hemoglobin Concent 34 g/dL (31-37) Red Cell Distribution Width 15.7 % (11.5-14.5) Platelet Count 17 x10^3/uL (140-400) Neutrophils (%) (Auto) 97 % (31-73) Lymphocytes (%) (Auto) 1 % (24-48) Monocytes (%) (Auto) 2 % (0-9) Eosinophils (%) (Auto) 0 % (0-3) Basophils (%) (Auto) 0 % (0-3) Neutrophils # (Auto) 6.1 x10^3uL (1.8-7.7) Lymphocytes # (Auto) 0.1 x10^3/uL (1.0-4.8) Monocytes # (Auto) 0.1 x10^3/uL (0.0-1.1) Eosinophils # (Auto) 0.0 x10^3/uL (0.0-0.7) Basophils # (Auto) 0.0 x10^3/uL (0.0-0.2) Segmented Neutrophils % 68 % (35-66) Band Neutrophils % 24 % (0-9) Lymphocytes % 5 % (24-48) Metamyelocytes % 3 % (0-0) Toxic Granulation Slight Toxic Vacuolation Mod Platelet Estimate Decreased (ADEQUATE) Erythrocyte Sedimentation Rate 11 (0-15) Prothrombin Time 13.4 SEC (11.7-14.0) Prothromb Time International Ratio 1.1 (0.8-1.1) Activated Partial Thromboplast Time 38 SEC (24-38) Sodium Level 128 mmol/L (136-145) Potassium Level 3.7 mmol/L (3.5-5.1) Chloride Level 91 mmol/L (98-107) Carbon Dioxide Level 20 mmol/L (21-32) Anion Gap 17 (6-14) Blood Urea Nitrogen 45 mg/dL (8-26) Creatinine 3.9 mg/dL (0.7-1.3) Estimated GFR (Cockcroft-Gault) 16.3 BUN/Creatinine Ratio 12 (6-20) Glucose Level 94 mg/dL (70-99) Lactic Acid Level 5.3 mmol/L (0.4-2.0) Calcium Level 7.6 mg/dL (8.5-10.1) Magnesium Level 1.3 mg/dL (1.8-2.4) Total Bilirubin 4.7 mg/dL (0.2-1.0) Aspartate Amino Transf (AST/SGOT) 233 U/L (15-37) Alanine Aminotransferase (ALT/SGPT) 127 U/L (16-63) Alkaline Phosphatase 215 U/L (46-116) Ammonia < 10 mcmol/L (11-34) Lactate Dehydrogenase 1240 U/L (85-227) Creatine Kinase 284 U/L (39-308) Creatine Kinase MB (Mass) 1.7 ng/mL (0.0-3.6) Creatine Kinase MB Relative Index 0.6 % (0-4) Troponin I Quantitative 0.111 ng/mL (0.000-0.055) C-Reactive Protein, Quantitative 242.9 mg/L (0-3.3) Total Protein 6.0 g/dL (6.4-8.2) Albumin 2.5 g/dL (3.4-5.0) Albumin/Globulin Ratio 0.7 (1.0-1.7) Lipase 425 U/L (73-393) Ethyl Alcohol Level < 10 mg/dL (0-10) Heterophil Agglutinins Negative (NEGATIVE) Influenza Type A Antigen Negative (NEGATIVE) Influenza Type B Antigen Negative (NEGATIVE) Group A Streptococcus Rapid Negative (NEGATIVE) Urine Collection Type Unknown Urine Color Patrizia Urine Clarity Cloudy Urine pH 5.5 Urine Specific [place] 1.020 Urine Protein 100 mg/dL (NEG-TRACE) Urine Glucose (UA) Negative mg/dL (NEG) Urine Ketones (Stick) Negative mg/dL (NEG) Urine Blood Small (NEG) Urine Nitrite Negative (NEG) Urine Bilirubin Moderate (NEG) Urine Urobilinogen Dipstick 1.0 mg/dL (0.2 mg/dL) Urine Leukocyte Esterase Negative (NEG) Urine RBC Occ /HPF (0-2) Urine WBC Occ /HPF (0-4) Urine Squamous Epithelial Cells Occ /LPF Urine Transitional Epithelial Cells Occ /LPF Urine Amorphous Sediment Present /HPF Urine Bacteria 0 /HPF (0-FEW) Urine Opiates Screen Neg (NEG) Urine Methadone Screen Neg (NEG) Urine Barbiturates Neg (NEG) Urine Phencyclidine Screen Neg (NEG) Urine Amphetamine/Methamphetamine Neg (NEG) Urine Benzodiazepines Screen Neg (NEG) Urine Cocaine Screen Neg (NEG) Urine Cannabinoids Screen Neg (NEG) Urine Ethyl Alcohol Neg (NEG) Test 08/26/18 00:15 08/26/18 03:15 08/26/18 09:45 08/26/18 12:15 Lactic Acid Level 5.1 mmol/L (0.4-2.0) 4.9 mmol/L (0.4-2.0) 4.5 mmol/L (0.4-2.0) 5.0 mmol/L (0.4-2.0) Troponin I Quantitative 0.160 ng/mL (0.000-0.055) 0.165 ng/mL (0.000-0.055) White Blood Count 6.5 x10^3/uL (4.0-11.0) 7.5 x10^3/uL (4.0-11.0) Red Blood Count 4.54 x10^6/uL (4.30-5.70) 4.39 x10^6/uL (4.30-5.70) Hemoglobin 13.3 g/dL (13.0-17.5) 12.7 g/dL (13.0-17.5) Hematocrit 39.3 % (39.0-53.0) 37.9 % (39.0-53.0) Mean Corpuscular Volume 86 fL (79-100) 86 fL (79-100) Mean Corpuscular Hemoglobin 29 pg (25-35) 29 pg (25-35) Mean Corpuscular Hemoglobin Concent 34 g/dL (31-37) 33 g/dL (31-37) Red Cell Distribution Width 15.9 % (11.5-14.5) 16.4 % (11.5-14.5) Platelet Count 17 x10^3/uL (140-400) 15 x10^3/uL (140-400) Neutrophils (%) (Auto) 98 % (31-73) 97 % (31-73) Lymphocytes (%) (Auto) 2 % (24-48) 2 % (24-48) Monocytes (%) (Auto) 1 % (0-9) 1 % (0-9) Eosinophils (%) (Auto) 0 % (0-3) 0 % (0-3) Basophils (%) (Auto) 0 % (0-3) 0 % (0-3) Neutrophils # (Auto) 6.4 x10^3uL (1.8-7.7) 7.2 x10^3uL (1.8-7.7) Lymphocytes # (Auto) 0.1 x10^3/uL (1.0-4.8) 0.2 x10^3/uL (1.0-4.8) Monocytes # (Auto) 0.0 x10^3/uL (0.0-1.1) 0.0 x10^3/uL (0.0-1.1) Eosinophils # (Auto) 0.0 x10^3/uL (0.0-0.7) 0.0 x10^3/uL (0.0-0.7) Basophils # (Auto) 0.0 x10^3/uL (0.0-0.2) 0.0 x10^3/uL (0.0-0.2) Absolute Reticulocyte Count 0.030 x10^6/uL (0.020-0.120) Percent Reticulocyte Count 0.7 % (0.5-2.3) Immature Reticulocyte Fraction 0.35 (0.20-0.60) Haptoglobin 94 mg/dL (34-200) Prothrombin Time 14.2 SEC (11.7-14.0) 14.3 SEC (11.7-14.0) Prothromb Time International Ratio 1.1 (0.8-1.1) 1.1 (0.8-1.1) Activated Partial Thromboplast Time 44 SEC (24-38) 47 SEC (24-38) Fibrinogen 319 mg/dL (200-440) 340 mg/dL (200-440) D-Dimer ([place]) 12.89 ug/mlFEU (0.00-0.50) 0.85 ug/mlFEU (0.00-0.50) Sodium Level 129 mmol/L (136-145) 130 mmol/L (136-145) Potassium Level 3.5 mmol/L (3.5-5.1) 3.6 mmol/L (3.5-5.1) Chloride Level 94 mmol/L (98-107) 94 mmol/L (98-107) Carbon Dioxide Level 16 mmol/L (21-32) 16 mmol/L (21-32) Anion Gap 19 (6-14) 20 (6-14) Blood Urea Nitrogen 53 mg/dL (8-26) 54 mg/dL (8-26) Creatinine 4.7 mg/dL (0.7-1.3) 4.7 mg/dL (0.7-1.3) Estimated GFR (Cockcroft-Gault) 13.1 13.1 BUN/Creatinine Ratio 11 (6-20) 11 (6-20) Glucose Level 80 mg/dL (70-99) 77 mg/dL (70-99) Calcium Level 6.8 mg/dL (8.5-10.1) 7.2 mg/dL (8.5-10.1) Total Bilirubin 4.7 mg/dL (0.2-1.0) 4.6 mg/dL (0.2-1.0) Direct Bilirubin 4.2 mg/dL (0.0-0.2) Aspartate Amino Transf (AST/SGOT) 288 U/L (15-37) 313 U/L (15-37) Alanine Aminotransferase (ALT/SGPT) 127 U/L (16-63) 135 U/L (16-63) Alkaline Phosphatase 200 U/L (46-116) 197 U/L (46-116) Total Protein 5.3 g/dL (6.4-8.2) 5.3 g/dL (6.4-8.2) Albumin 2.1 g/dL (3.4-5.0) 2.2 g/dL (3.4-5.0) Albumin/Globulin Ratio 0.7 (1.0-1.7) 0.7 (1.0-1.7) Lipase 516 U/L (73-393) Procalcitonin 19.50 ng/mL (0.00-0.10) Hepatitis B Surface Antigen Nonreactive (Nonreactive) Hepatitis B Surface Antibody Reactive Ionized Calcium 0.85 mmol/L (1.13-1.32) Ammonia 13 mcmol/L (11-34) SOFIA ROBERSON MD August 26, 2018 15:22
[2018-08-26 19:13] LABS: ALBUMIN/GLOBULIN RATIO 0.7 (1.0-1.7); CALCIUM 6.6 mg/dL (8.5-10.1); CREATININE 5.8 mg/dL (0.7-1.3); GFR 10.3; POTASSIUM 3.7 mmol/L (3.5-5.1); TOTAL BILIRUBIN 5.2 mg/dL (0.2-1.0); TOTAL PROTEIN 4.9 g/dL (6.4-8.2)
[2018-08-26] MEDS: LACTOBACILLUS RHAMNOSUS GG 1 CAPSULE. PO SCH (21:03)
--- NOTE | 2018-08-26 23:53 | CONS ---
DATE OF CONSULTATION: REASON FOR CONSULTATION: Renal failure. HISTORY OF PRESENT ILLNESS: This is a 52-year-old gentleman with history of hypertension, obstructive sleep apnea and hemochromatosis. The patient stated that he had poison shelby, developed cellulitis. He was treated at [facility] with Bactrim, which he took for 10 days. His last Bactrim was 7 days prior to his admission. Over the last week, he has an increase in fatigue, lethargy, reduced appetite, poor oral intake. He had fever to as high as 101. He was seen by his primary physician and testing was negative for influenza. He was given Tylenol alternating with ibuprofen for fever. He subsequently developed severe headache. He was seen in urgent care in [place], was given prednisone 20 mg for 5 days. He subsequently developed fever to 104. Ultimately, [facility], was admitted with hypokalemia and increased hepatobiliary enzymes. CT abdomen and pelvis without contrast revealed no acute findings. Hepatitis B and C testing was unremarkable. He was discharged and then returned and subsequently admitted. Denies difficulty urination, nephrolithiasis, gross hematuria, renal disease or diabetes mellitus. No history of nephrolithiasis. PAST MEDICAL HISTORY: Hemochromatosis followed at [facility], treated with phlebotomy; hypertension; obstructive sleep apnea and obesity. ALLERGIES: ASPIRIN and ZOSYN. MEDICATIONS: As per med list and at home have included Bactrim, ibuprofen and "broad-spectrum antibiotic." FAMILY HISTORY: Noncontributory. SOCIAL HISTORY: He is , resides with his and 3 sons. 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 No alcohol use, drug use or tobacco use. REVIEW OF SYSTEMS: He has had headache. No nausea or vomiting. No chest pain, shortness of breath, PND, orthopnea or dyspnea on exertion. No abdominal pain, although he has had abdominal distention. Has had some nausea. No vomiting or diarrhea. Has had poor oral intake. No edema, seizures or malignancies. PHYSICAL EXAMINATION: GENERAL APPEARANCE: The patient awake, conversant. HEENT: Clear. NECK: No increased JVD. No thyromegaly, mass or adenopathy. LUNGS: Clear. CARDIAC: Without S3 or rub. ABDOMEN: Taut and nontender. EXTREMITIES: Without edema. NEUROLOGICAL: Nonfocal, localizing. PSYCHIATRIC: Good attention to detail, appropriate affect. LABORATORY DATA: Sodium 129, potassium 3.5, chloride 94, CO2 is 16, BUN is 53, creatinine 4.7 and GFR is 13. Lactic acid on presentation was 5.1 and now 4.9, total bilirubin 4.7, direct bilirubin 4.2, AST 288, ALT 127, alkaline phosphatase 200, total protein 5.3 and albumin 2.1. Hemoglobin 13.3, hematocrit 39%, white count 6.5 and platelets are 17. Urinalysis, specific gravity 1.020, 100 mg percent protein. INR 1.1 and PTT is 38. Alcohol less than 10. Urine drug screen negative. IMPRESSION: 1. Renal failure, acute, likely in part prerenal but also likely acute tubular necrosis. 2. Hyponatremia due to the above. 3. Metabolic acidosis with increased lactate production. 4. Increasing hepatopedal hepatobiliary enzymes. 5. Thrombocytopenia. 6. Febrile illness. DISCUSSIONS AND RECOMMENDATIONS: 1. As per Dr. Garcia's note with Hematology/Oncology, a peripheral smear does not reveal schistocytes. Thrombotic thrombocytopenic purpura is not felt to be the issue. With increased level of azotemia and acidosis, we will proceed with dialysis for solute clearance and fluid balance. 2. Abdominal ultrasound reveals right kidney 11.6 cm, left 12.1 cm. No hydronephrosis or hydroureter. There is hepatomegaly noted with hepatic steatosis. We will follow. KAVYA MCKEON MD DR: HAIR/haleigh JOB#: [id number] / [id number]
[2018-08-27] VITALS (24 sets, daily range): BP systolic 68–135; BP diastolic 43–82
[2018-08-27] MEDS ORDERED: ACETAMINOPHEN 325 MG TABLET. PO ONE (00:43)
[2018-08-27 05:30] LABS: BASO % 0 % (0-3); EOS % 0 % (0-3); HEMATOCRIT 38.6 % (39.0-53.0); HEMOGLOBIN 13.2 g/dL (13.0-17.5); LYMPH # 0.2 x10^3/uL (1.0-4.8); LYMPH % 1 % (24-48); MEAN CORPUSCULAR HEMOGLOBIN 29 pg (25-35); MEAN CORPUSCULAR HGB CONC 34 g/dL (31-37); MEAN CORPUSCULAR VOLUME 85 fL (79-100); MONO # 0.5 x10^3/uL (0.0-1.1); MONO % 5 % (0-9); NEUT # 10.4 x10^3uL (1.8-7.7); NEUT % 94 % (31-73); PLATELET COUNT 30 x10^3/uL (140-400); RED BLOOD COUNT 4.55 x10^6/uL (4.30-5.70); RED CELL DISTRIBUTION WIDTH 16.2 % (11.5-14.5); WHITE BLOOD COUNT 11.1 x10^3/uL (4.0-11.0)
[2018-08-27 05:47] LABS: ALBUMIN 1.7 g/dL (3.4-5.0); ALBUMIN/GLOBULIN RATIO 0.5 (1.0-1.7); CREATININE 5.5 mg/dL (0.7-1.3); GFR 10.9; TOTAL BILIRUBIN 5.3 mg/dL (0.2-1.0); TOTAL PROTEIN 4.9 g/dL (6.4-8.2)
[2018-08-27] MEDS: MEROPENEM 500 MG in IV NORMAL SALINE 50ML 50 ML IV SCH (08:13)
[2018-08-27] MEDS: DOXYCYCLINE HYCLATE 100 MG in IV DEXTROSE 5% 100ML 100 ML IV SCH ×2 (08:13→21:26)
[2018-08-27] MEDS: FAMOTIDINE 20 MG TABLET. PO SCH (08:14)
[2018-08-27] MEDS: LACTOBACILLUS RHAMNOSUS GG 1 CAPSULE. PO SCH ×2 (08:14→21:25)
--- NOTE | 2018-08-27 08:23 | CARD ---
MR#: [id number] Date of Study: 08/26/2018 Ordering Physician: EVGENY PARKER, Referring Physician: EVGENY PARKER Tech: Mary Lindo RDCS APPROVED REPORT EXAM: Two-dimensional and M-mode echocardiogram with Doppler and color Doppler. Other Information Quality : FairHR: 84bpm Rhythm : NSR INDICATION Elevated troponin level 2D DIMENSIONS Left Atrium(2D)3.9 (1.6-4.0cm)IVSd0.9 (0.7-1.1cm) Aortic Root(2D)2.7 (2.0-3.7cm)LVDd4.4 (3.9-5.9cm) LVOT Diameter2.2 (1.8-2.4cm)PWd0.9 (0.7-1.1cm) LA Phwnfm37 (18-58mL)LVDs3.3 (2.5-4.0cm) LVEF(%)50.0 (>50%) Aortic Valve AoV Peak Reynaldo.150.7cm/sAoV VTI27.7cm AO Peak GR.9.1mmHgLVOT Peak Reynaldo.115.6cm/s AO Mean GR.6mmHgAVA (VMAX)3.01cm2 SANTANA (VTI)3.00cm2 Mitral Valve MV E Xbqfqpsk88.3cm/sMV DECEL [id number] MV A Mooxsbql94.8cm/sE/A Ratio1.0 MV A Qddkyjia13fs TDI Lateral E' P. V14.00cm/sMedial E' P. V8.00cm/s E/Lateral E'4.9E/Medial E'8.7 Tricuspid Valve TR P. Duknnsis078jj/sRAP [id number] TR Peak Gr.93yjKdNASI77euEv Pulmonary Vein S1 Xboskyoy07.6cm/sD2 Oevtfjgz46.1cm/s LEFT VENTRICLE The left ventricle is normal size. There is normal left ventricular wall thickness. The left ventricu lar systolic function is normal. The ejection fraction is estimated at 55-60%. There is normal LV seg mental wall motion. No left ventricle thrombus noted on this study. There is no ventricular septal de fect visualized. There is no left ventricular aneurysm. There is no mass noted in the left ventricle. RIGHT VENTRICLE The right ventricle is normal size. There is normal right ventricular wall thickness. The right ventr icular systolic function is normal. ATRIA The left atrium size is normal. The right atrium size is normal. The interatrial septum is intact wit h no evidence for an atrial septal defect or patent foramen ovale as noted on 2-D or Doppler imaging. AORTIC VALVE The aortic valve is normal in structure and function. Doppler and Color Flow revealed no significant aortic regurgitation. There is no significant aortic valvular stenosis. There is no aortic valvular v egetation. MITRAL VALVE The mitral valve is normal in structure and function. There is no evidence of mitral valve prolapse. There is no mitral valve stenosis. Doppler and Color-flow revealed trace mitral regurgitation. TRICUSPID VALVE The tricuspid valve is normal in structure and function. Doppler and Color Flow revealed trace tricus pid regurgitation. There is no tricuspid valve prolapse or vegetation. There is no tricuspid valve st enosis. PULMONIC VALVE The pulmonary valve is normal in structure and function. Doppler and Color Flow revealed no pulmonic valvular regurgitation. There is no pulmonic valvular stenosis. GREAT VESSELS The aortic root is normal in size. The ascending aorta is normal in size. The IVC is normal in size a nd collapses >50% with inspiration. PERICARDIAL EFFUSION There is no pleural effusion. There is no evidence of significant pericardial effusion. Critical Notification Critical Value: No <Conclusion> The left ventricular systolic function is normal. The ejection fraction is estimated at 55-60%. There is normal LV segmental wall motion. Trace mitral regurgitation. Trace tricuspid regurgitation. There is no evidence of significant pericardial effusion. Signed by : Gordon Meehan, Electronically Approved : 08/27/2018 08:22:29
--- NOTE | 2018-08-27 08:24 | PDOC ---
Infectious Disease Note Subjective Subjective pt is awake, feeling much better says ROS ROS no headache, no n/v/d/sob/ Vital Sign Vital Signs Vital Signs Date Time Temp Pulse Resp B/P (MAP) Pulse Ox O2 Delivery O2 Flow Rate FiO2 08/27/18 06:00 98 42 117/62 (80) Nasal Cannula 3.0 08/27/18 04:00 97.9 93 97.9 Physical Exam PHYSICAL EXAM GENERAL: The patient is slightly propped up in bed, alert, in no apparent distress. HEENT: Pupils equally round, reactive. Normal conjunctivae. Oral cavity: Pharynx pink, dry. NECK: Supple. LUNGS: Clear to auscultation. HEART: S1 and S2. ABDOMEN: Obese, soft, nontender with bowel sounds present. EXTREMITIES: No gross edema or cyanosis. SKIN: Warm without rash. Left knee has several scabs/scarring. NEUROLOGIC: Alert and oriented x 3. Labs Lab Laboratory Tests Test 08/26/18 09:45 08/26/18 12:15 08/27/18 04:05 08/27/18 04:25 White Blood Count 7.5 x10^3/uL (4.0-11.0) 11.1 x10^3/uL (4.0-11.0) Red Blood Count 4.39 x10^6/uL (4.30-5.70) 4.55 x10^6/uL (4.30-5.70) Hemoglobin 12.7 g/dL (13.0-17.5) 13.2 g/dL (13.0-17.5) Hematocrit 37.9 % (39.0-53.0) 38.6 % (39.0-53.0) Mean Corpuscular Volume 86 fL (79-100) 85 fL (79-100) Mean Corpuscular Hemoglobin 29 pg (25-35) 29 pg (25-35) Mean Corpuscular Hemoglobin Concent 33 g/dL (31-37) 34 g/dL (31-37) Red Cell Distribution Width 16.4 % (11.5-14.5) 16.2 % (11.5-14.5) Platelet Count 15 x10^3/uL (140-400) 30 x10^3/uL (140-400) Neutrophils (%) (Auto) 97 % (31-73) 94 % (31-73) Lymphocytes (%) (Auto) 2 % (24-48) 1 % (24-48) Monocytes (%) (Auto) 1 % (0-9) 5 % (0-9) Eosinophils (%) (Auto) 0 % (0-3) 0 % (0-3) Basophils (%) (Auto) 0 % (0-3) 0 % (0-3) Neutrophils # (Auto) 7.2 x10^3uL (1.8-7.7) 10.4 x10^3uL (1.8-7.7) Lymphocytes # (Auto) 0.2 x10^3/uL (1.0-4.8) 0.2 x10^3/uL (1.0-4.8) Monocytes # (Auto) 0.0 x10^3/uL (0.0-1.1) 0.5 x10^3/uL (0.0-1.1) Eosinophils # (Auto) 0.0 x10^3/uL (0.0-0.7) 0.0 x10^3/uL (0.0-0.7) Basophils # (Auto) 0.0 x10^3/uL (0.0-0.2) 0.0 x10^3/uL (0.0-0.2) Prothrombin Time 14.3 SEC (11.7-14.0) Prothromb Time International Ratio 1.1 (0.8-1.1) Activated Partial Thromboplast Time 47 SEC (24-38) Fibrinogen 340 mg/dL (200-440) D-Dimer ([place]) 0.85 ug/mlFEU (0.00-0.50) Sodium Level 130 mmol/L (136-145) 129 mmol/L (136-145) 132 mmol/L (136-145) Potassium Level 3.6 mmol/L (3.5-5.1) 3.7 mmol/L (3.5-5.1) 4.0 mmol/L (3.5-5.1) Chloride Level 94 mmol/L (98-107) 94 mmol/L (98-107) 94 mmol/L (98-107) Carbon Dioxide Level 16 mmol/L (21-32) 13 mmol/L (21-32) 18 mmol/L (21-32) Anion Gap 20 (6-14) 22 (6-14) 20 (6-14) Blood Urea Nitrogen 54 mg/dL (8-26) 64 mg/dL (8-26) 59 mg/dL (8-26) Creatinine 4.7 mg/dL (0.7-1.3) 5.8 mg/dL (0.7-1.3) 5.5 mg/dL (0.7-1.3) Estimated GFR (Cockcroft-Gault) 13.1 10.3 10.9 BUN/Creatinine Ratio 11 (6-20) 11 (6-20) 11 (6-20) Glucose Level 77 mg/dL (70-99) 84 mg/dL (70-99) 93 mg/dL (70-99) Lactic Acid Level 4.5 mmol/L (0.4-2.0) 5.0 mmol/L (0.4-2.0) Calcium Level 7.2 mg/dL (8.5-10.1) 6.6 mg/dL (8.5-10.1) 7.0 mg/dL (8.5-10.1) Ionized Calcium 0.85 mmol/L (1.13-1.32) Total Bilirubin 4.6 mg/dL (0.2-1.0) 5.2 mg/dL (0.2-1.0) 5.3 mg/dL (0.2-1.0) Aspartate Amino Transf (AST/SGOT) 313 U/L (15-37) 381 U/L (15-37) 545 U/L (15-37) Alanine Aminotransferase (ALT/SGPT) 135 U/L (16-63) 140 U/L (16-63) 152 U/L (16-63) Alkaline Phosphatase 197 U/L (46-116) 219 U/L (46-116) 227 U/L (46-116) Ammonia 13 mcmol/L (11-34) Total Protein 5.3 g/dL (6.4-8.2) 4.9 g/dL (6.4-8.2) 4.9 g/dL (6.4-8.2) Albumin 2.2 g/dL (3.4-5.0) 2.0 g/dL (3.4-5.0) 1.7 g/dL (3.4-5.0) Albumin/Globulin Ratio 0.7 (1.0-1.7) 0.7 (1.0-1.7) 0.5 (1.0-1.7) Creatine Kinase 326 U/L (39-308) Thyroid Stimulating Hormone (TSH) 1.364 uIU/mL (0.358-3.74) Micro Microbiology 08/26/18 Blood Culture - Preliminary, Resulted NO GROWTH AFTER 1 DAY Objective Assessment 1. Tick-borne illness, suspected. with h/o tick bite 3 weeks ago at [place] 2. Lactic acidosis. 3. Fever. 4. Bandemia. 5. Acute hepatic injury. 6. Acute kidney injury. 7. Thrombocytopenia. 8. Hemochromatosis. 9. LLE dermatitis improving, ? poison shelby,resolving with local treatment Plan Plan of Care Continue dapto and doxycycline. Restart meropenem, renal dosing. Ehrlichiae Ab pending F/u BC Monitor lab values and for abx toxicities Abd US pending Monitor I & Os RMSF serologies D/w D/w nursing pt's mental status has improved significantly LP is option discussed but plt are very low, and MS is improving KELBY PARKER MD August 27, 2018 08:24
--- NOTE | 2018-08-27 08:27 | PDOC ---
PROGRESS NOTES Subjective Subjective HPI - f/u of Thrombocytopenia ROS - had fever Objective Objective Vital Signs Date Time Temp Pulse Resp B/P (MAP) Pulse Ox O2 Delivery O2 Flow Rate FiO2 08/27/18 06:00 98 42 117/62 (80) Nasal Cannula 3.0 08/27/18 04:00 97.9 93 97.9 Intake and Output 08/27/18 06:59 Intake Total 2580 ml Output Total 50 ml Balance 2530 ml Intake Oral 2330 ml IV Total 250 ml Output Urine Total 50 ml Physical Exam Heart: Regular rate General: Alert, No acute distress Neck: No JVD Assessment Assessment Problems Medical Problems: (1) Acute renal failure Status: Acute Assessment/Plan 52 yo male presents with week long history of fever and found to have thrombocytopenia, ARF, elevated LFTs 1. Septic shock - Fever - Tick borne illness suspected. I d/w Dr Lujan. 2. Dehydration 3. Acute renal failure 4. Elevated LFTs 5. Thrombocytopenia due to sepsis, no clinical evidence of TTP, no evidence of schistocytes, normal retic and haptoglobin and Hb. He should be transfused plts if his plt count <10 or he develops active bleeding. Plt better at 30 on 08/27/18. Monitor cbc. Comment Review of Relevant I have reviewed the following items gera (where applicable) has been applied. Labs Laboratory Tests Test 08/25/18 19:45 08/25/18 20:28 08/25/18 20:30 08/25/18 22:22 White Blood Count 6.2 x10^3/uL (4.0-11.0) Red Blood Count 4.74 x10^6/uL (4.30-5.70) Hemoglobin 14.0 g/dL (13.0-17.5) Hematocrit 40.8 % (39.0-53.0) Mean Corpuscular Volume 86 fL (79-100) Mean Corpuscular Hemoglobin 30 pg (25-35) Mean Corpuscular Hemoglobin Concent 34 g/dL (31-37) Red Cell Distribution Width 15.7 % (11.5-14.5) Platelet Count 17 x10^3/uL (140-400) Neutrophils (%) (Auto) 97 % (31-73) Lymphocytes (%) (Auto) 1 % (24-48) Monocytes (%) (Auto) 2 % (0-9) Eosinophils (%) (Auto) 0 % (0-3) Basophils (%) (Auto) 0 % (0-3) Neutrophils # (Auto) 6.1 x10^3uL (1.8-7.7) Lymphocytes # (Auto) 0.1 x10^3/uL (1.0-4.8) Monocytes # (Auto) 0.1 x10^3/uL (0.0-1.1) Eosinophils # (Auto) 0.0 x10^3/uL (0.0-0.7) Basophils # (Auto) 0.0 x10^3/uL (0.0-0.2) Segmented Neutrophils % 68 % (35-66) Band Neutrophils % 24 % (0-9) Lymphocytes % 5 % (24-48) Metamyelocytes % 3 % (0-0) Toxic Granulation Slight Toxic Vacuolation Mod Platelet Estimate Decreased (ADEQUATE) Erythrocyte Sedimentation Rate 11 (0-15) Prothrombin Time 13.4 SEC (11.7-14.0) Prothromb Time International Ratio 1.1 (0.8-1.1) Activated Partial Thromboplast Time 38 SEC (24-38) Sodium Level 128 mmol/L (136-145) Potassium Level 3.7 mmol/L (3.5-5.1) Chloride Level 91 mmol/L (98-107) Carbon Dioxide Level 20 mmol/L (21-32) Anion Gap 17 (6-14) Blood Urea Nitrogen 45 mg/dL (8-26) Creatinine 3.9 mg/dL (0.7-1.3) Estimated GFR (Cockcroft-Gault) 16.3 BUN/Creatinine Ratio 12 (6-20) Glucose Level 94 mg/dL (70-99) Lactic Acid Level 5.3 mmol/L (0.4-2.0) Calcium Level 7.6 mg/dL (8.5-10.1) Magnesium Level 1.3 mg/dL (1.8-2.4) Total Bilirubin 4.7 mg/dL (0.2-1.0) Aspartate Amino Transf (AST/SGOT) 233 U/L (15-37) Alanine Aminotransferase (ALT/SGPT) 127 U/L (16-63) Alkaline Phosphatase 215 U/L (46-116) Ammonia < 10 mcmol/L (11-34) Lactate Dehydrogenase 1240 U/L (85-227) Creatine Kinase 284 U/L (39-308) Creatine Kinase MB (Mass) 1.7 ng/mL (0.0-3.6) Creatine Kinase MB Relative Index 0.6 % (0-4) Troponin I Quantitative 0.111 ng/mL (0.000-0.055) C-Reactive Protein, Quantitative 242.9 mg/L (0-3.3) Total Protein 6.0 g/dL (6.4-8.2) Albumin 2.5 g/dL (3.4-5.0) Albumin/Globulin Ratio 0.7 (1.0-1.7) Lipase 425 U/L (73-393) Ethyl Alcohol Level < 10 mg/dL (0-10) Heterophil Agglutinins Negative (NEGATIVE) Influenza Type A Antigen Negative (NEGATIVE) Influenza Type B Antigen Negative (NEGATIVE) Group A Streptococcus Rapid Negative (NEGATIVE) Urine Collection Type Unknown Urine Color Patrizia Urine Clarity Cloudy Urine pH 5.5 Urine Specific [place] 1.020 Urine Protein 100 mg/dL (NEG-TRACE) Urine Glucose (UA) Negative mg/dL (NEG) Urine Ketones (Stick) Negative mg/dL (NEG) Urine Blood Small (NEG) Urine Nitrite Negative (NEG) Urine Bilirubin Moderate (NEG) Urine Urobilinogen Dipstick 1.0 mg/dL (0.2 mg/dL) Urine Leukocyte Esterase Negative (NEG) Urine RBC Occ /HPF (0-2) Urine WBC Occ /HPF (0-4) Urine Squamous Epithelial Cells Occ /LPF Urine Transitional Epithelial Cells Occ /LPF Urine Amorphous Sediment Present /HPF Urine Bacteria 0 /HPF (0-FEW) Urine Opiates Screen Neg (NEG) Urine Methadone Screen Neg (NEG) Urine Barbiturates Neg (NEG) Urine Phencyclidine Screen Neg (NEG) Urine Amphetamine/Methamphetamine Neg (NEG) Urine Benzodiazepines Screen Neg (NEG) Urine Cocaine Screen Neg (NEG) Urine Cannabinoids Screen Neg (NEG) Urine Ethyl Alcohol Neg (NEG) Test 08/26/18 00:15 08/26/18 03:15 08/26/18 09:45 08/26/18 12:15 Lactic Acid Level 5.1 mmol/L (0.4-2.0) 4.9 mmol/L (0.4-2.0) 4.5 mmol/L (0.4-2.0) 5.0 mmol/L (0.4-2.0) Troponin I Quantitative 0.160 ng/mL (0.000-0.055) 0.165 ng/mL (0.000-0.055) White Blood Count 6.5 x10^3/uL (4.0-11.0) 7.5 x10^3/uL (4.0-11.0) Red Blood Count 4.54 x10^6/uL (4.30-5.70) 4.39 x10^6/uL (4.30-5.70) Hemoglobin 13.3 g/dL (13.0-17.5) 12.7 g/dL (13.0-17.5) Hematocrit 39.3 % (39.0-53.0) 37.9 % (39.0-53.0) Mean Corpuscular Volume 86 fL (79-100) 86 fL (79-100) Mean Corpuscular Hemoglobin 29 pg (25-35) 29 pg (25-35) Mean Corpuscular Hemoglobin Concent 34 g/dL (31-37) 33 g/dL (31-37) Red Cell Distribution Width 15.9 % (11.5-14.5) 16.4 % (11.5-14.5) Platelet Count 17 x10^3/uL (140-400) 15 x10^3/uL (140-400) Neutrophils (%) (Auto) 98 % (31-73) 97 % (31-73) Lymphocytes (%) (Auto) 2 % (24-48) 2 % (24-48) Monocytes (%) (Auto) 1 % (0-9) 1 % (0-9) Eosinophils (%) (Auto) 0 % (0-3) 0 % (0-3) Basophils (%) (Auto) 0 % (0-3) 0 % (0-3) Neutrophils # (Auto) 6.4 x10^3uL (1.8-7.7) 7.2 x10^3uL (1.8-7.7) Lymphocytes # (Auto) 0.1 x10^3/uL (1.0-4.8) 0.2 x10^3/uL (1.0-4.8) Monocytes # (Auto) 0.0 x10^3/uL (0.0-1.1) 0.0 x10^3/uL (0.0-1.1) Eosinophils # (Auto) 0.0 x10^3/uL (0.0-0.7) 0.0 x10^3/uL (0.0-0.7) Basophils # (Auto) 0.0 x10^3/uL (0.0-0.2) 0.0 x10^3/uL (0.0-0.2) Absolute Reticulocyte Count 0.030 x10^6/uL (0.020-0.120) Percent Reticulocyte Count 0.7 % (0.5-2.3) Immature Reticulocyte Fraction 0.35 (0.20-0.60) Haptoglobin 94 mg/dL (34-200) Prothrombin Time 14.2 SEC (11.7-14.0) 14.3 SEC (11.7-14.0) Prothromb Time International Ratio 1.1 (0.8-1.1) 1.1 (0.8-1.1) Activated Partial Thromboplast Time 44 SEC (24-38) 47 SEC (24-38) Fibrinogen 319 mg/dL (200-440) 340 mg/dL (200-440) D-Dimer ([place]) 12.89 ug/mlFEU (0.00-0.50) 0.85 ug/mlFEU (0.00-0.50) Sodium Level 129 mmol/L (136-145) 130 mmol/L (136-145) 129 mmol/L (136-145) Potassium Level 3.5 mmol/L (3.5-5.1) 3.6 mmol/L (3.5-5.1) 3.7 mmol/L (3.5-5.1) Chloride Level 94 mmol/L (98-107) 94 mmol/L (98-107) 94 mmol/L (98-107) Carbon Dioxide Level 16 mmol/L (21-32) 16 mmol/L (21-32) 13 mmol/L (21-32) Anion Gap 19 (6-14) 20 (6-14) 22 (6-14) Blood Urea Nitrogen 53 mg/dL (8-26) 54 mg/dL (8-26) 64 mg/dL (8-26) Creatinine 4.7 mg/dL (0.7-1.3) 4.7 mg/dL (0.7-1.3) 5.8 mg/dL (0.7-1.3) Estimated GFR (Cockcroft-Gault) 13.1 13.1 10.3 BUN/Creatinine Ratio 11 (6-20) 11 (6-20) 11 (6-20) Glucose Level 80 mg/dL (70-99) 77 mg/dL (70-99) 84 mg/dL (70-99) Calcium Level 6.8 mg/dL (8.5-10.1) 7.2 mg/dL (8.5-10.1) 6.6 mg/dL (8.5-10.1) Total Bilirubin 4.7 mg/dL (0.2-1.0) 4.6 mg/dL (0.2-1.0) 5.2 mg/dL (0.2-1.0) Direct Bilirubin 4.2 mg/dL (0.0-0.2) Aspartate Amino Transf (AST/SGOT) 288 U/L (15-37) 313 U/L (15-37) 381 U/L (15-37) Alanine Aminotransferase (ALT/SGPT) 127 U/L (16-63) 135 U/L (16-63) 140 U/L (16-63) Alkaline Phosphatase 200 U/L (46-116) 197 U/L (46-116) 219 U/L (46-116) Total Protein 5.3 g/dL (6.4-8.2) 5.3 g/dL (6.4-8.2) 4.9 g/dL (6.4-8.2) Albumin 2.1 g/dL (3.4-5.0) 2.2 g/dL (3.4-5.0) 2.0 g/dL (3.4-5.0) Albumin/Globulin Ratio 0.7 (1.0-1.7) 0.7 (1.0-1.7) 0.7 (1.0-1.7) Lipase 516 U/L (73-393) Procalcitonin 19.50 ng/mL (0.00-0.10) Hepatitis B Surface Antigen Nonreactive (Nonreactive) Hepatitis B Surface Antibody Reactive Ionized Calcium 0.85 mmol/L (1.13-1.32) Ammonia 13 mcmol/L (11-34) Creatine Kinase 326 U/L (39-308) Thyroid Stimulating Hormone (TSH) 1.364 uIU/mL (0.358-3.74) Test 08/27/18 04:05 08/27/18 04:25 White Blood Count 11.1 x10^3/uL (4.0-11.0) Red Blood Count 4.55 x10^6/uL (4.30-5.70) Hemoglobin 13.2 g/dL (13.0-17.5) Hematocrit 38.6 % (39.0-53.0) Mean Corpuscular Volume 85 fL (79-100) Mean Corpuscular Hemoglobin 29 pg (25-35) Mean Corpuscular Hemoglobin Concent 34 g/dL (31-37) Red Cell Distribution Width 16.2 % (11.5-14.5) Platelet Count 30 x10^3/uL (140-400) Neutrophils (%) (Auto) 94 % (31-73) Lymphocytes (%) (Auto) 1 % (24-48) Monocytes (%) (Auto) 5 % (0-9) Eosinophils (%) (Auto) 0 % (0-3) Basophils (%) (Auto) 0 % (0-3) Neutrophils # (Auto) 10.4 x10^3uL (1.8-7.7) Lymphocytes # (Auto) 0.2 x10^3/uL (1.0-4.8) Monocytes # (Auto) 0.5 x10^3/uL (0.0-1.1) Eosinophils # (Auto) 0.0 x10^3/uL (0.0-0.7) Basophils # (Auto) 0.0 x10^3/uL (0.0-0.2) Sodium Level 132 mmol/L (136-145) Potassium Level 4.0 mmol/L (3.5-5.1) Chloride Level 94 mmol/L (98-107) Carbon Dioxide Level 18 mmol/L (21-32) Anion Gap 20 (6-14) Blood Urea Nitrogen 59 mg/dL (8-26) Creatinine 5.5 mg/dL (0.7-1.3) Estimated GFR (Cockcroft-Gault) 10.9 BUN/Creatinine Ratio 11 (6-20) Glucose Level 93 mg/dL (70-99) Calcium Level 7.0 mg/dL (8.5-10.1) Total Bilirubin 5.3 mg/dL (0.2-1.0) Aspartate Amino Transf (AST/SGOT) 545 U/L (15-37) Alanine Aminotransferase (ALT/SGPT) 152 U/L (16-63) Alkaline Phosphatase 227 U/L (46-116) Total Protein 4.9 g/dL (6.4-8.2) Albumin 1.7 g/dL (3.4-5.0) Albumin/Globulin Ratio 0.5 (1.0-1.7) Laboratory Tests Test 08/26/18 09:45 08/26/18 12:15 08/27/18 04:05 08/27/18 04:25 White Blood Count 7.5 x10^3/uL (4.0-11.0) 11.1 x10^3/uL (4.0-11.0) Red Blood Count 4.39 x10^6/uL (4.30-5.70) 4.55 x10^6/uL (4.30-5.70) Hemoglobin 12.7 g/dL (13.0-17.5) 13.2 g/dL (13.0-17.5) Hematocrit 37.9 % (39.0-53.0) 38.6 % (39.0-53.0) Mean Corpuscular Volume 86 fL (79-100) 85 fL (79-100) Mean Corpuscular Hemoglobin 29 pg (25-35) 29 pg (25-35) Mean Corpuscular Hemoglobin Concent 33 g/dL (31-37) 34 g/dL (31-37) Red Cell Distribution Width 16.4 % (11.5-14.5) 16.2 % (11.5-14.5) Platelet Count 15 x10^3/uL (140-400) 30 x10^3/uL (140-400) Neutrophils (%) (Auto) 97 % (31-73) 94 % (31-73) Lymphocytes (%) (Auto) 2 % (24-48) 1 % (24-48) Monocytes (%) (Auto) 1 % (0-9) 5 % (0-9) Eosinophils (%) (Auto) 0 % (0-3) 0 % (0-3) Basophils (%) (Auto) 0 % (0-3) 0 % (0-3) Neutrophils # (Auto) 7.2 x10^3uL (1.8-7.7) 10.4 x10^3uL (1.8-7.7) Lymphocytes # (Auto) 0.2 x10^3/uL (1.0-4.8) 0.2 x10^3/uL (1.0-4.8) Monocytes # (Auto) 0.0 x10^3/uL (0.0-1.1) 0.5 x10^3/uL (0.0-1.1) Eosinophils # (Auto) 0.0 x10^3/uL (0.0-0.7) 0.0 x10^3/uL (0.0-0.7) Basophils # (Auto) 0.0 x10^3/uL (0.0-0.2) 0.0 x10^3/uL (0.0-0.2) Prothrombin Time 14.3 SEC (11.7-14.0) Prothromb Time International Ratio 1.1 (0.8-1.1) Activated Partial Thromboplast Time 47 SEC (24-38) Fibrinogen 340 mg/dL (200-440) D-Dimer ([place]) 0.85 ug/mlFEU (0.00-0.50) Sodium Level 130 mmol/L (136-145) 129 mmol/L (136-145) 132 mmol/L (136-145) Potassium Level 3.6 mmol/L (3.5-5.1) 3.7 mmol/L (3.5-5.1) 4.0 mmol/L (3.5-5.1) Chloride Level 94 mmol/L (98-107) 94 mmol/L (98-107) 94 mmol/L (98-107) Carbon Dioxide Level 16 mmol/L (21-32) 13 mmol/L (21-32) 18 mmol/L (21-32) Anion Gap 20 (6-14) 22 (6-14) 20 (6-14) Blood Urea Nitrogen 54 mg/dL (8-26) 64 mg/dL (8-26) 59 mg/dL (8-26) Creatinine 4.7 mg/dL (0.7-1.3) 5.8 mg/dL (0.7-1.3) 5.5 mg/dL (0.7-1.3) Estimated GFR (Cockcroft-Gault) 13.1 10.3 10.9 BUN/Creatinine Ratio 11 (6-20) 11 (6-20) 11 (6-20) Glucose Level 77 mg/dL (70-99) 84 mg/dL (70-99) 93 mg/dL (70-99) Lactic Acid Level 4.5 mmol/L (0.4-2.0) 5.0 mmol/L (0.4-2.0) Calcium Level 7.2 mg/dL (8.5-10.1) 6.6 mg/dL (8.5-10.1) 7.0 mg/dL (8.5-10.1) Ionized Calcium 0.85 mmol/L (1.13-1.32) Total Bilirubin 4.6 mg/dL (0.2-1.0) 5.2 mg/dL (0.2-1.0) 5.3 mg/dL (0.2-1.0) Aspartate Amino Transf (AST/SGOT) 313 U/L (15-37) 381 U/L (15-37) 545 U/L (15-37) Alanine Aminotransferase (ALT/SGPT) 135 U/L (16-63) 140 U/L (16-63) 152 U/L (16-63) Alkaline Phosphatase 197 U/L (46-116) 219 U/L (46-116) 227 U/L (46-116) Ammonia 13 mcmol/L (11-34) Total Protein 5.3 g/dL (6.4-8.2) 4.9 g/dL (6.4-8.2) 4.9 g/dL (6.4-8.2) Albumin 2.2 g/dL (3.4-5.0) 2.0 g/dL (3.4-5.0) 1.7 g/dL (3.4-5.0) Albumin/Globulin Ratio 0.7 (1.0-1.7) 0.7 (1.0-1.7) 0.5 (1.0-1.7) Creatine Kinase 326 U/L (39-308) Thyroid Stimulating Hormone (TSH) 1.364 uIU/mL (0.358-3.74) Microbiology 08/26/18 Blood Culture - Preliminary, Resulted NO GROWTH AFTER 1 DAY Medications Current Medications Sodium Chloride 1,000 ml @ 1,000 mls/hr 1X ONCE IV Last administered on 08/25/18 20:38; Start 08/25/18 at 19:15; Stop 08/25/18 at 20:14; Status DC Ibuprofen (Motrin) 600 mg 1X ONCE PO Last administered on 08/25/18 20:38; Start 08/25/18 at 19:45; Stop 08/25/18 at 19:49; Status DC Sodium Chloride 1,000 ml @ 1,000 mls/hr 1X ONCE IV Last administered on 08/25/18at 20:30; Start 08/25/18 at 20:30; Stop 08/25/18 at 21:29; Status DC Ceftriaxone Sodium (Rocephin) 1 gm 1X ONCE IVP Last administered on 08/25/18at 20:36; Start 08/25/18 at 20:30; Stop 08/25/18 at 20:31; Status DC Vancomycin HCl 2 gm/Sodium Chloride 500 ml @ 250 mls/hr 1X ONCE IV Last administered on 08/25/18at 23:10; Start 08/25/18 at 21:30; Stop 08/25/18 at 23:29; Status DC Sodium Chloride 1,000 ml @ 1,000 mls/hr 1X ONCE IV Last administered on 08/25/18at 23:51; Start 08/25/18 at 21:00; Stop 08/25/18 at 21:59; Status DC Piperacillin Sod/ Tazobactam Sod 4.5 gm/Sodium Chloride 100 ml @ 200 mls/hr 1X ONCE IV ; Start 08/25/18 at 21:15; Stop 08/25/18 at 21:44; Status DC Aztreonam (Azactam) 2 gm 1X ONCE IVP Last administered on 08/25/18at 21:15; Start 08/25/18 at 21:15; Stop 08/25/18 at 21:16; Status DC Magnesium Sulfate 50 ml @ 25 mls/hr 1X ONCE IV Last administered on 08/25/18at 23:51; Start 08/25/18 at 21:15; Stop 08/25/18 at 23:14; Status DC Ondansetron HCl (Zofran) 4 mg PRN Q8HRS PRN IV NAUSEA/VOMITING; Start 08/25/18 at 21:15; Stop 08/26/18 at 21:14; Status DC Acetaminophen (Tylenol) 650 mg PRN Q4HRS PRN PO FEVER; Start 08/25/18 at 21:15; Stop 08/26/18 at 21:14; Status DC Sodium Chloride 1,000 ml @ 125 mls/hr 1X ONCE IV Last administered on 08/25/18at 23:09; Start 08/25/18 at 21:15; Stop 08/26/18 at 05:14; Status DC Daptomycin 610 mg/ Sodium Chloride 50 ml @ 100 mls/hr QODAY IV ; Start 08/27/18 at 09:00 Meropenem 500 mg/ Sodium Chloride 50 ml @ 100 mls/hr 1X ONCE IV Last administered on 08/25/18at 22:12; Start 08/25/18 at 22:00; Stop 08/25/18 at 22:29; Status DC Doxycycline Hyclate 100 mg/ Dextrose 100 ml @ 50 mls/hr Q12HR IV Last administered on 08/27/18at 08:13; Start 08/26/18 at 09:00 Meropenem 500 mg/ Sodium Chloride 50 ml @ 100 mls/hr DAILY IV Last administered on 08/27/18at 08:13; Start 08/26/18 at 09:00 Sodium Chloride (Normal Saline Flush) 10 ml QSHIFT PRN IV AFTER MEDS AND BLOOD DRAWS; Start 08/26/18 at 09:15 Norepinephrine Bitartrate 250 ml @ 0 mls/hr CONT PRN IV PER PROTOCOL; Start 08/26/18 at 09:15 Famotidine (Pepcid) 20 mg DAILY PO Last administered on 08/27/18at 08:14; Start 08/26/18 at 12:00 Sodium Chloride 1,000 ml @ 1,000 mls/hr Q1H PRN IV hypotension; Start 08/26/18 at 11:51; Stop 08/26/18 at 17:50; Status DC Sodium Chloride (Normal Saline Flush) 10 ml 1X PRN PRN IV AP catheter pack; Start 08/26/18 at 12:00; Stop 08/27/18 at 11:59 Sodium Chloride (Normal Saline Flush) 10 ml 1X PRN PRN IV [employer] catheter pack; Start 08/26/18 at 12:00; Stop 08/27/18 at 11:59 Sodium Chloride 1,000 ml @ 400 mls/hr Q2H30M PRN IV PATENCY; Start 08/26/18 at 11:51; Stop 08/26/18 at 23:50; Status DC Info (PHARMACY MONITORING -- do not chart) 1 each PRN DAILY PRN MC SEE COMMENTS; Start 08/26/18 at 12:00; Status UNV Info (PHARMACY MONITORING -- do not chart) 1 each PRN DAILY PRN MC SEE COMMENTS; Start 08/26/18 at 12:00 Lidocaine/Sodium Bicarbonate (Buffered Lidocaine 1%) 4 ml 1X ONCE INJ Last administered on 08/26/18at 12:45; Start 08/26/18 at 12:45; Stop 08/26/18 at 12:48; Status DC Heparin Sodium (Porcine) (Heparin Sodium) 2,500 unit 1X ONCE INT CAT Last administered on 08/26/18at 12:45; Start 08/26/18 at 12:45; Stop 08/26/18 at 12:48; Status DC Lidocaine/Sodium Bicarbonate (Buffered Lidocaine 1%) 3 ml STK-MED ONCE .ROUTE ; Start 08/26/18 at 12:49; Stop 08/26/18 at 12:50; Status DC Heparin Sodium (Porcine) (Heparin Sodium) 10,000 unit STK-MED ONCE .ROUTE ; Start 08/26/18 at 12:49; Stop 08/26/18 at 12:50; Status DC Lactobacillus Rhamnosus (Culturelle) 1 cap BID PO Last administered on 08/27/18at 08:14; Start 08/26/18 at 21:00 Acetaminophen (Tylenol) 325 mg STK-MED ONCE PO ; Start 08/27/18 at 00:43; Stop 08/27/18 at 00:44; Status DC Active Scripts Active Potassium Chloride 20 Meq Tablet.er 20 Meq PO DAILY Orphenadrine Citrate 100 Mg Tablet.er 100 Mg PO Q12HR Anaprox Ds (Naproxen Sodium) 550 Mg Tablet 550 Mg PO Q12HR Reported Prednisone 20 Mg Tablet 1 Tab PO DAILY Hydrochlorothiazide Tablet (Hydrochlorothiazide) 12.5 Mg Tablet 12.5 Mg PO DAILY Shilpi Allergy (Fexofenadine Hcl) 180 Mg Tablet 1 Tab PO DAILY Vitals/I & O Vital Sign - Last 24 Hours 08/26/18 08/26/18 08/26/18 08/26/18 09:00 10:00 11:00 12:00 Temp 98.2 98.2 Pulse 84 95 87 92 Resp 17 17 21 25 B/P (MAP) 131/70 (90) 116/69 (85) 116/72 (87) 131/70 (90) Pulse Ox 94 95 93 96 O2 Delivery Room Air Room Air Room Air Room Air 08/26/18 08/26/18 08/26/18 08/26/18 13:00 14:00 15:00 16:00 Pulse 90 93 100 Resp 23 25 25 B/P (MAP) 113/48 (69) 89/54 (66) Pulse Ox 96 96 96 O2 Delivery Room Air Room Air Room Air Nasal Cannula O2 Flow Rate 2.0 08/26/18 08/26/18 08/26/18 08/26/18 16:00 17:00 18:00 19:00 Temp 97.9 97.9 Pulse 101 110 112 116 Resp 27 28 30 42 B/P (MAP) 114/59 (77) 107/52 (70) 117/58 (77) 95/55 (68) Pulse Ox 98 97 99 96 O2 Delivery Room Air Room Air Room Air Nasal Cannula O2 Flow Rate 3.0 08/26/18 08/26/18 08/26/18 08/26/18 19:13 20:00 20:00 21:00 Temp 98.3 98.3 Pulse 107 111 Resp 36 37 B/P (MAP) 115/60 (78) 121/47 (71) Pulse Ox 96 93 95 O2 Delivery BiPAP/CPAP Nasal Cannula Nasal Cannula Nasal Cannula O2 Flow Rate 3.0 3.0 3.0 08/26/18 08/26/18 08/27/18 08/27/18 22:00 23:00 00:00 00:00 Temp 100.5 100.5 Pulse 110 102 110 Resp 39 34 47 B/P (MAP) 113/55 (74) 105/46 (65) 85/46 (59) Pulse Ox 95 91 94 O2 Delivery Room Air Room Air Bi-pap BiPAP/CPAP 08/27/18 08/27/18 08/27/18 08/27/18 01:00 02:00 03:00 04:00 Temp 103.4 100.7 97.9 103.4 100.7 97.9 Pulse 106 103 100 99 Resp 45 44 24 32 B/P (MAP) 112/50 (70) 93/43 (60) 121/62 (81) 109/68 (82) Pulse Ox 92 90 94 93 O2 Delivery Nasal Cannula Room Air Nasal Cannula Nasal Cannula O2 Flow Rate 3.0 3.0 3.0 08/27/18 08/27/18 08/27/18 04:00 05:00 06:00 Pulse 96 98 Resp 29 42 B/P (MAP) 108/53 (71) 117/62 (80) O2 Delivery Nasal Cannula Nasal Cannula Nasal Cannula O2 Flow Rate 3.0 3.0 3.0 Intake and Output 08/26/18 08/26/18 08/27/18 14:59 22:59 06:59 Intake Total 700 ml 300 ml 1580 ml Output Total 0 ml 50 ml Balance 700 ml 250 ml 1580 ml JAVON COSME MD August 27, 2018 08:27
[2018-08-27] MEDS ORDERED: DAPTOMYCIN IV SCH (09:00)
[2018-08-27] MEDS ORDERED: NORMAL SALINE IV SCH (09:00)
--- NOTE | 2018-08-27 09:47 | PDOC ---
PROGRESS NOTES History of Present Illness History of Present Illness VTE Prophylaxis Ordered VTE Prophylaxis Devices: No VTE Pharmacological Prophylaxi: No Assessment/Plan Assessment/Plan IMPRESSION: 1. 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 severe thrombocytopenia 3. severe sepsis 4. recent tick bite 5. Altered mental status, encephalopathy, acute 6. morbid obesity 7. No acute abdominal or pelvic abnormality.BY CT 8. Minimal fatty infiltration of the liver. 9. Mild atelectasis in the bilateral lower lobes. 10. Acute renal failure 11. Mild elevation troponin i, 12. transaminitis 13. diarrhea 14. lactic acidosis 15. hx mild hypertension plan blood cult iv antibiotics, emperic including doxycycline ID CONSULT nephrology consult neurology consult HEME CONSULT ICU BED PRN IV PRESSORS Ehrlichiosis antibody serology iv fluid support cardiology consult ECHO GI CONSULT ABD SONO TODAY Acute hepatitis panel stool enteric pathogens sepsis protocol lyme serology right internal jugular triple-lumen central venous catheter placed IJ 08/27 d/w in detail in room 38 min cc time Vitals Vitals Vital Signs Date Time Temp Pulse Resp B/P (MAP) Pulse Ox O2 Delivery O2 Flow Rate FiO2 08/27/18 06:00 98 42 117/62 (80) Nasal Cannula 3.0 08/27/18 04:00 97.9 93 97.9 Physical Exam Physical Exam GENERAL: The patient is slightly propped up in bed, alert, in no apparent distress. HEENT: Pupils equally round, reactive. Normal conjunctivae. Oral cavity: Pharynx pink, dry. NECK: Supple. LUNGS: Clear to auscultation. HEART: S1 and S2. ABDOMEN: Obese, soft, nontender with bowel sounds present. EXTREMITIES: No gross edema or cyanosis. SKIN: Warm without rash. Left knee has several scabs/scarring. NEUROLOGIC: Alert and oriented x 3. General: Alert, Oriented X3, Cooperative, No acute distress Heart: Regular rate, No murmurs Lungs: Clear Abdomen: Soft Extremities: No clubbing, No cyanosis, No edema Skin: No significant lesion, Other (healing rash and excoriations on Left lower extremity. No obvious petechiae) Labs LABS Procedure: Ultrasound-guided placement of right internal jugular central venous catheter08/27/2018 10:30 AM Clinical Indication: Need for central venous access. Patient critically ill in the intensive care unit. Multiple effusions. Discussion: The risks and benefits of the procedure were discussed the patient and/or their traffic representative. Informed consent was obtained. A timeout procedure was performed. All elements of maximal sterile barrier technique including the use of a cap, mask, sterile gown, sterile gloves, large sterile sheet, appropriate hand hygiene, and 2% chlorhexidine for cutaneous antisepsis (or acceptable alternative antiseptic per current guidelines) were followed for this procedure. The patient was prepped and draped in the usual sterile fashion. Ultrasound interrogation of the right neck revealed patency and compressibility of the right internal jugular vein. A 21-gauge micropuncture was then used to gain access to this vein under ultrasound guidance. A hard copy ultrasound image was recorded. A guidewire was advanced centrally. 5 Faro[place] sheath was placed. Over a wire following dilatation, a triple-lumen central venous catheter was advanced centrally. Catheter was found to flush and aspirate normally. Follow-up chest radiograph demonstrates tip at the cavoatrial junction. Catheter secured in place and a sterile dressing was applied. No immediate complications were identified. Impression: Successful ultrasound-guided placement of right internal jugular triple-lumen central venous catheter RIGHT VENTRICLE The right ventricle is normal size. There is normal right ventricular wall thickness. The right ventricular systolic function is normal. ATRIA The left atrium size is normal. The right atrium size is normal. The interatrial septum is intact with no evidence for an atrial septal defect or patent foramen ovale as noted on 2-D or Doppler imaging. AORTIC VALVE The aortic valve is normal in structure and function. Doppler and Color Flow revealed no significant aortic regurgitation. There is no significant aortic valvular stenosis. There is no aortic valvular vegetation. MITRAL VALVE The mitral valve is normal in structure and function. There is no evidence of mitral valve prolapse. There is no mitral valve stenosis. Doppler and Color-flow revealed trace mitral regurgitation. TRICUSPID VALVE The tricuspid valve is normal in structure and function. Doppler and Color Flow revealed trace tricuspid regurgitation. There is no tricuspid valve prolapse or vegetation. There is no tricuspid valve stenosis. PULMONIC VALVE The pulmonary valve is normal in structure and function. Doppler and Color Flow revealed no pulmonic valvular regurgitation. There is no pulmonic valvular stenosis. GREAT VESSELS The aortic root is normal in size. The ascending aorta is normal in size. The IVC is normal in size and collapses >50% with inspiration. PERICARDIAL EFFUSION There is no pleural effusion. There is no evidence of significant pericardial effusion. Critical Notification Critical Value: No <Conclusion> The left ventricular systolic function is normal. The ejection fraction is estimated at 55-60%. There is normal LV segmental wall motion. Trace mitral regurgitation. Trace tricuspid regurgitation. There is no evidence of significant pericardial effusion. Signed by : Gordon Meehan, Electronically Approved : 08/27/2018 08:22:29 Laboratory Tests Test 08/26/18 12:15 08/27/18 04:05 08/27/18 04:25 Sodium Level 129 mmol/L (136-145) 132 mmol/L (136-145) Potassium Level 3.7 mmol/L (3.5-5.1) 4.0 mmol/L (3.5-5.1) Chloride Level 94 mmol/L (98-107) 94 mmol/L (98-107) Carbon Dioxide Level 13 mmol/L (21-32) 18 mmol/L (21-32) Anion Gap 22 (6-14) 20 (6-14) Blood Urea Nitrogen 64 mg/dL (8-26) 59 mg/dL (8-26) Creatinine 5.8 mg/dL (0.7-1.3) 5.5 mg/dL (0.7-1.3) Estimated GFR (Cockcroft-Gault) 10.3 10.9 BUN/Creatinine Ratio 11 (6-20) 11 (6-20) Glucose Level 84 mg/dL (70-99) 93 mg/dL (70-99) Lactic Acid Level 5.0 mmol/L (0.4-2.0) Calcium Level 6.6 mg/dL (8.5-10.1) 7.0 mg/dL (8.5-10.1) Total Bilirubin 5.2 mg/dL (0.2-1.0) 5.3 mg/dL (0.2-1.0) Aspartate Amino Transf (AST/SGOT) 381 U/L (15-37) 545 U/L (15-37) Alanine Aminotransferase (ALT/SGPT) 140 U/L (16-63) 152 U/L (16-63) Alkaline Phosphatase 219 U/L (46-116) 227 U/L (46-116) Creatine Kinase 326 U/L (39-308) Total Protein 4.9 g/dL (6.4-8.2) 4.9 g/dL (6.4-8.2) Albumin 2.0 g/dL (3.4-5.0) 1.7 g/dL (3.4-5.0) Albumin/Globulin Ratio 0.7 (1.0-1.7) 0.5 (1.0-1.7) Thyroid Stimulating Hormone (TSH) 1.364 uIU/mL (0.358-3.74) White Blood Count 11.1 x10^3/uL (4.0-11.0) Red Blood Count 4.55 x10^6/uL (4.30-5.70) Hemoglobin 13.2 g/dL (13.0-17.5) Hematocrit 38.6 % (39.0-53.0) Mean Corpuscular Volume 85 fL (79-100) Mean Corpuscular Hemoglobin 29 pg (25-35) Mean Corpuscular Hemoglobin Concent 34 g/dL (31-37) Red Cell Distribution Width 16.2 % (11.5-14.5) Platelet Count 30 x10^3/uL (140-400) Neutrophils (%) (Auto) 94 % (31-73) Lymphocytes (%) (Auto) 1 % (24-48) Monocytes (%) (Auto) 5 % (0-9) Eosinophils (%) (Auto) 0 % (0-3) Basophils (%) (Auto) 0 % (0-3) Neutrophils # (Auto) 10.4 x10^3uL (1.8-7.7) Lymphocytes # (Auto) 0.2 x10^3/uL (1.0-4.8) Monocytes # (Auto) 0.5 x10^3/uL (0.0-1.1) Eosinophils # (Auto) 0.0 x10^3/uL (0.0-0.7) Basophils # (Auto) 0.0 x10^3/uL (0.0-0.2) Magnesium Level 1.9 mg/dL (1.8-2.4) Assessment and Plan Assessmemt and Plan Problems Medical Problems: (1) Acute renal failure Status: Acute Comment Review of Relevant I have reviewed the following items gera (where applicable) has been applied. Labs Laboratory Tests Test 08/25/18 19:45 08/25/18 20:28 08/25/18 20:30 08/25/18 22:22 White Blood Count 6.2 x10^3/uL (4.0-11.0) Red Blood Count 4.74 x10^6/uL (4.30-5.70) Hemoglobin 14.0 g/dL (13.0-17.5) Hematocrit 40.8 % (39.0-53.0) Mean Corpuscular Volume 86 fL (79-100) Mean Corpuscular Hemoglobin 30 pg (25-35) Mean Corpuscular Hemoglobin Concent 34 g/dL (31-37) Red Cell Distribution Width 15.7 % (11.5-14.5) Platelet Count 17 x10^3/uL (140-400) Neutrophils (%) (Auto) 97 % (31-73) Lymphocytes (%) (Auto) 1 % (24-48) Monocytes (%) (Auto) 2 % (0-9) Eosinophils (%) (Auto) 0 % (0-3) Basophils (%) (Auto) 0 % (0-3) Neutrophils # (Auto) 6.1 x10^3uL (1.8-7.7) Lymphocytes # (Auto) 0.1 x10^3/uL (1.0-4.8) Monocytes # (Auto) 0.1 x10^3/uL (0.0-1.1) Eosinophils # (Auto) 0.0 x10^3/uL (0.0-0.7) Basophils # (Auto) 0.0 x10^3/uL (0.0-0.2) Segmented Neutrophils % 68 % (35-66) Band Neutrophils % 24 % (0-9) Lymphocytes % 5 % (24-48) Metamyelocytes % 3 % (0-0) Toxic Granulation Slight Toxic Vacuolation Mod Platelet Estimate Decreased (ADEQUATE) Erythrocyte Sedimentation Rate 11 (0-15) Prothrombin Time 13.4 SEC (11.7-14.0) Prothromb Time International Ratio 1.1 (0.8-1.1) Activated Partial Thromboplast Time 38 SEC (24-38) Sodium Level 128 mmol/L (136-145) Potassium Level 3.7 mmol/L (3.5-5.1) Chloride Level 91 mmol/L (98-107) Carbon Dioxide Level 20 mmol/L (21-32) Anion Gap 17 (6-14) Blood Urea Nitrogen 45 mg/dL (8-26) Creatinine 3.9 mg/dL (0.7-1.3) Estimated GFR (Cockcroft-Gault) 16.3 BUN/Creatinine Ratio 12 (6-20) Glucose Level 94 mg/dL (70-99) Lactic Acid Level 5.3 mmol/L (0.4-2.0) Calcium Level 7.6 mg/dL (8.5-10.1) Magnesium Level 1.3 mg/dL (1.8-2.4) Total Bilirubin 4.7 mg/dL (0.2-1.0) Aspartate Amino Transf (AST/SGOT) 233 U/L (15-37) Alanine Aminotransferase (ALT/SGPT) 127 U/L (16-63) Alkaline Phosphatase 215 U/L (46-116) Ammonia < 10 mcmol/L (11-34) Lactate Dehydrogenase 1240 U/L (85-227) Creatine Kinase 284 U/L (39-308) Creatine Kinase MB (Mass) 1.7 ng/mL (0.0-3.6) Creatine Kinase MB Relative Index 0.6 % (0-4) Troponin I Quantitative 0.111 ng/mL (0.000-0.055) C-Reactive Protein, Quantitative 242.9 mg/L (0-3.3) Total Protein 6.0 g/dL (6.4-8.2) Albumin 2.5 g/dL (3.4-5.0) Albumin/Globulin Ratio 0.7 (1.0-1.7) Lipase 425 U/L (73-393) Ethyl Alcohol Level < 10 mg/dL (0-10) Heterophil Agglutinins Negative (NEGATIVE) Influenza Type A Antigen Negative (NEGATIVE) Influenza Type B Antigen Negative (NEGATIVE) Group A Streptococcus Rapid Negative (NEGATIVE) Urine Collection Type Unknown Urine Color Patrizia Urine Clarity Cloudy Urine pH 5.5 Urine Specific [place] 1.020 Urine Protein 100 mg/dL (NEG-TRACE) Urine Glucose (UA) Negative mg/dL (NEG) Urine Ketones (Stick) Negative mg/dL (NEG) Urine Blood Small (NEG) Urine Nitrite Negative (NEG) Urine Bilirubin Moderate (NEG) Urine Urobilinogen Dipstick 1.0 mg/dL (0.2 mg/dL) Urine Leukocyte Esterase Negative (NEG) Urine RBC Occ /HPF (0-2) Urine WBC Occ /HPF (0-4) Urine Squamous Epithelial Cells Occ /LPF Urine Transitional Epithelial Cells Occ /LPF Urine Amorphous Sediment Present /HPF Urine Bacteria 0 /HPF (0-FEW) Urine Opiates Screen Neg (NEG) Urine Methadone Screen Neg (NEG) Urine Barbiturates Neg (NEG) Urine Phencyclidine Screen Neg (NEG) Urine Amphetamine/Methamphetamine Neg (NEG) Urine Benzodiazepines Screen Neg (NEG) Urine Cocaine Screen Neg (NEG) Urine Cannabinoids Screen Neg (NEG) Urine Ethyl Alcohol Neg (NEG) Test 08/26/18 00:15 08/26/18 03:15 08/26/18 09:45 08/26/18 12:15 Lactic Acid Level 5.1 mmol/L (0.4-2.0) 4.9 mmol/L (0.4-2.0) 4.5 mmol/L (0.4-2.0) 5.0 mmol/L (0.4-2.0) Troponin I Quantitative 0.160 ng/mL (0.000-0.055) 0.165 ng/mL (0.000-0.055) White Blood Count 6.5 x10^3/uL (4.0-11.0) 7.5 x10^3/uL (4.0-11.0) Red Blood Count 4.54 x10^6/uL (4.30-5.70) 4.39 x10^6/uL (4.30-5.70) Hemoglobin 13.3 g/dL (13.0-17.5) 12.7 g/dL (13.0-17.5) Hematocrit 39.3 % (39.0-53.0) 37.9 % (39.0-53.0) Mean Corpuscular Volume 86 fL (79-100) 86 fL (79-100) Mean Corpuscular Hemoglobin 29 pg (25-35) 29 pg (25-35) Mean Corpuscular Hemoglobin Concent 34 g/dL (31-37) 33 g/dL (31-37) Red Cell Distribution Width 15.9 % (11.5-14.5) 16.4 % (11.5-14.5) Platelet Count 17 x10^3/uL (140-400) 15 x10^3/uL (140-400) Neutrophils (%) (Auto) 98 % (31-73) 97 % (31-73) Lymphocytes (%) (Auto) 2 % (24-48) 2 % (24-48) Monocytes (%) (Auto) 1 % (0-9) 1 % (0-9) Eosinophils (%) (Auto) 0 % (0-3) 0 % (0-3) Basophils (%) (Auto) 0 % (0-3) 0 % (0-3) Neutrophils # (Auto) 6.4 x10^3uL (1.8-7.7) 7.2 x10^3uL (1.8-7.7) Lymphocytes # (Auto) 0.1 x10^3/uL (1.0-4.8) 0.2 x10^3/uL (1.0-4.8) Monocytes # (Auto) 0.0 x10^3/uL (0.0-1.1) 0.0 x10^3/uL (0.0-1.1) Eosinophils # (Auto) 0.0 x10^3/uL (0.0-0.7) 0.0 x10^3/uL (0.0-0.7) Basophils # (Auto) 0.0 x10^3/uL (0.0-0.2) 0.0 x10^3/uL (0.0-0.2) Absolute Reticulocyte Count 0.030 x10^6/uL (0.020-0.120) Percent Reticulocyte Count 0.7 % (0.5-2.3) Immature Reticulocyte Fraction 0.35 (0.20-0.60) Haptoglobin 94 mg/dL (34-200) Prothrombin Time 14.2 SEC (11.7-14.0) 14.3 SEC (11.7-14.0) Prothromb Time International Ratio 1.1 (0.8-1.1) 1.1 (0.8-1.1) Activated Partial Thromboplast Time 44 SEC (24-38) 47 SEC (24-38) Fibrinogen 319 mg/dL (200-440) 340 mg/dL (200-440) D-Dimer ([place]) 12.89 ug/mlFEU (0.00-0.50) 0.85 ug/mlFEU (0.00-0.50) Sodium Level 129 mmol/L (136-145) 130 mmol/L (136-145) 129 mmol/L (136-145) Potassium Level 3.5 mmol/L (3.5-5.1) 3.6 mmol/L (3.5-5.1) 3.7 mmol/L (3.5-5.1) Chloride Level 94 mmol/L (98-107) 94 mmol/L (98-107) 94 mmol/L (98-107) Carbon Dioxide Level 16 mmol/L (21-32) 16 mmol/L (21-32) 13 mmol/L (21-32) Anion Gap 19 (6-14) 20 (6-14) 22 (6-14) Blood Urea Nitrogen 53 mg/dL (8-26) 54 mg/dL (8-26) 64 mg/dL (8-26) Creatinine 4.7 mg/dL (0.7-1.3) 4.7 mg/dL (0.7-1.3) 5.8 mg/dL (0.7-1.3) Estimated GFR (Cockcroft-Gault) 13.1 13.1 10.3 BUN/Creatinine Ratio 11 (6-20) 11 (6-20) 11 (6-20) Glucose Level 80 mg/dL (70-99) 77 mg/dL (70-99) 84 mg/dL (70-99) Calcium Level 6.8 mg/dL (8.5-10.1) 7.2 mg/dL (8.5-10.1) 6.6 mg/dL (8.5-10.1) Total Bilirubin 4.7 mg/dL (0.2-1.0) 4.6 mg/dL (0.2-1.0) 5.2 mg/dL (0.2-1.0) Direct Bilirubin 4.2 mg/dL (0.0-0.2) Aspartate Amino Transf (AST/SGOT) 288 U/L (15-37) 313 U/L (15-37) 381 U/L (15-37) Alanine Aminotransferase (ALT/SGPT) 127 U/L (16-63) 135 U/L (16-63) 140 U/L (16-63) Alkaline Phosphatase 200 U/L (46-116) 197 U/L (46-116) 219 U/L (46-116) Total Protein 5.3 g/dL (6.4-8.2) 5.3 g/dL (6.4-8.2) 4.9 g/dL (6.4-8.2) Albumin 2.1 g/dL (3.4-5.0) 2.2 g/dL (3.4-5.0) 2.0 g/dL (3.4-5.0) Albumin/Globulin Ratio 0.7 (1.0-1.7) 0.7 (1.0-1.7) 0.7 (1.0-1.7) Lipase 516 U/L (73-393) Procalcitonin 19.50 ng/mL (0.00-0.10) Hepatitis B Surface Antigen Nonreactive (Nonreactive) Hepatitis B Surface Antibody Reactive Ionized Calcium 0.85 mmol/L (1.13-1.32) Ammonia 13 mcmol/L (11-34) Creatine Kinase 326 U/L (39-308) Thyroid Stimulating Hormone (TSH) 1.364 uIU/mL (0.358-3.74) Test 08/27/18 04:05 08/27/18 04:25 White Blood Count 11.1 x10^3/uL (4.0-11.0) Red Blood Count 4.55 x10^6/uL (4.30-5.70) Hemoglobin 13.2 g/dL (13.0-17.5) Hematocrit 38.6 % (39.0-53.0) Mean Corpuscular Volume 85 fL (79-100) Mean Corpuscular Hemoglobin 29 pg (25-35) Mean Corpuscular Hemoglobin Concent 34 g/dL (31-37) Red Cell Distribution Width 16.2 % (11.5-14.5) Platelet Count 30 x10^3/uL (140-400) Neutrophils (%) (Auto) 94 % (31-73) Lymphocytes (%) (Auto) 1 % (24-48) Monocytes (%) (Auto) 5 % (0-9) Eosinophils (%) (Auto) 0 % (0-3) Basophils (%) (Auto) 0 % (0-3) Neutrophils # (Auto) 10.4 x10^3uL (1.8-7.7) Lymphocytes # (Auto) 0.2 x10^3/uL (1.0-4.8) Monocytes # (Auto) 0.5 x10^3/uL (0.0-1.1) Eosinophils # (Auto) 0.0 x10^3/uL (0.0-0.7) Basophils # (Auto) 0.0 x10^3/uL (0.0-0.2) Sodium Level 132 mmol/L (136-145) Potassium Level 4.0 mmol/L (3.5-5.1) Chloride Level 94 mmol/L (98-107) Carbon Dioxide Level 18 mmol/L (21-32) Anion Gap 20 (6-14) Blood Urea Nitrogen 59 mg/dL (8-26) Creatinine 5.5 mg/dL (0.7-1.3) Estimated GFR (Cockcroft-Gault) 10.9 BUN/Creatinine Ratio 11 (6-20) Glucose Level 93 mg/dL (70-99) Calcium Level 7.0 mg/dL (8.5-10.1) Magnesium Level 1.9 mg/dL (1.8-2.4) Total Bilirubin 5.3 mg/dL (0.2-1.0) Aspartate Amino Transf (AST/SGOT) 545 U/L (15-37) Alanine Aminotransferase (ALT/SGPT) 152 U/L (16-63) Alkaline Phosphatase 227 U/L (46-116) Total Protein 4.9 g/dL (6.4-8.2) Albumin 1.7 g/dL (3.4-5.0) Albumin/Globulin Ratio 0.5 (1.0-1.7) Laboratory Tests Test 08/26/18 12:15 08/27/18 04:05 08/27/18 04:25 Sodium Level 129 mmol/L (136-145) 132 mmol/L (136-145) Potassium Level 3.7 mmol/L (3.5-5.1) 4.0 mmol/L (3.5-5.1) Chloride Level 94 mmol/L (98-107) 94 mmol/L (98-107) Carbon Dioxide Level 13 mmol/L (21-32) 18 mmol/L (21-32) Anion Gap 22 (6-14) 20 (6-14) Blood Urea Nitrogen 64 mg/dL (8-26) 59 mg/dL (8-26) Creatinine 5.8 mg/dL (0.7-1.3) 5.5 mg/dL (0.7-1.3) Estimated GFR (Cockcroft-Gault) 10.3 10.9 BUN/Creatinine Ratio 11 (6-20) 11 (6-20) Glucose Level 84 mg/dL (70-99) 93 mg/dL (70-99) Lactic Acid Level 5.0 mmol/L (0.4-2.0) Calcium Level 6.6 mg/dL (8.5-10.1) 7.0 mg/dL (8.5-10.1) Total Bilirubin 5.2 mg/dL (0.2-1.0) 5.3 mg/dL (0.2-1.0) Aspartate Amino Transf (AST/SGOT) 381 U/L (15-37) 545 U/L (15-37) Alanine Aminotransferase (ALT/SGPT) 140 U/L (16-63) 152 U/L (16-63) Alkaline Phosphatase 219 U/L (46-116) 227 U/L (46-116) Creatine Kinase 326 U/L (39-308) Total Protein 4.9 g/dL (6.4-8.2) 4.9 g/dL (6.4-8.2) Albumin 2.0 g/dL (3.4-5.0) 1.7 g/dL (3.4-5.0) Albumin/Globulin Ratio 0.7 (1.0-1.7) 0.5 (1.0-1.7) Thyroid Stimulating Hormone (TSH) 1.364 uIU/mL (0.358-3.74) White Blood Count 11.1 x10^3/uL (4.0-11.0) Red Blood Count 4.55 x10^6/uL (4.30-5.70) Hemoglobin 13.2 g/dL (13.0-17.5) Hematocrit 38.6 % (39.0-53.0) Mean Corpuscular Volume 85 fL (79-100) Mean Corpuscular Hemoglobin 29 pg (25-35) Mean Corpuscular Hemoglobin Concent 34 g/dL (31-37) Red Cell Distribution Width 16.2 % (11.5-14.5) Platelet Count 30 x10^3/uL (140-400) Neutrophils (%) (Auto) 94 % (31-73) Lymphocytes (%) (Auto) 1 % (24-48) Monocytes (%) (Auto) 5 % (0-9) Eosinophils (%) (Auto) 0 % (0-3) Basophils (%) (Auto) 0 % (0-3) Neutrophils # (Auto) 10.4 x10^3uL (1.8-7.7) Lymphocytes # (Auto) 0.2 x10^3/uL (1.0-4.8) Monocytes # (Auto) 0.5 x10^3/uL (0.0-1.1) Eosinophils # (Auto) 0.0 x10^3/uL (0.0-0.7) Basophils # (Auto) 0.0 x10^3/uL (0.0-0.2) Magnesium Level 1.9 mg/dL (1.8-2.4) Microbiology 08/26/18 Blood Culture - Preliminary, Resulted NO GROWTH AFTER 1 DAY Medications Current Medications Sodium Chloride 1,000 ml @ 1,000 mls/hr 1X ONCE IV Last administered on 08/25/18 20:38; Start 08/25/18 at 19:15; Stop 08/25/18 at 20:14; Status DC Ibuprofen (Motrin) 600 mg 1X ONCE PO Last administered on 08/25/18 20:38; Start 08/25/18 at 19:45; Stop 08/25/18 at 19:49; Status DC Sodium Chloride 1,000 ml @ 1,000 mls/hr 1X ONCE IV Last administered on 08/25/18at 20:30; Start 08/25/18 at 20:30; Stop 08/25/18 at 21:29; Status DC Ceftriaxone Sodium (Rocephin) 1 gm 1X ONCE IVP Last administered on 08/25/18at 20:36; Start 08/25/18 at 20:30; Stop 08/25/18 at 20:31; Status DC Vancomycin HCl 2 gm/Sodium Chloride 500 ml @ 250 mls/hr 1X ONCE IV Last administered on 08/25/18at 23:10; Start 08/25/18 at 21:30; Stop 08/25/18 at 23:29; Status DC Sodium Chloride 1,000 ml @ 1,000 mls/hr 1X ONCE IV Last administered on 08/25/18at 23:51; Start 08/25/18 at 21:00; Stop 08/25/18 at 21:59; Status DC Piperacillin Sod/ Tazobactam Sod 4.5 gm/Sodium Chloride 100 ml @ 200 mls/hr 1X ONCE IV ; Start 08/25/18 at 21:15; Stop 08/25/18 at 21:44; Status DC Aztreonam (Azactam) 2 gm 1X ONCE IVP Last administered on 08/25/18at 21:15; S tart 08/25/18 at 21:15; Stop 08/25/18 at 21:16; Status DC Magnesium Sulfate 50 ml @ 25 mls/hr 1X ONCE IV Last administered on 08/25/18at 23:51; Start 08/25/18 at 21:15; Stop 08/25/18 at 23:14; Status DC Ondansetron HCl (Zofran) 4 mg PRN Q8HRS PRN IV NAUSEA/VOMITING; Start 08/25/18 at 21:15; Stop 08/26/18 at 21:14; Status DC Acetaminophen (Tylenol) 650 mg PRN Q4HRS PRN PO FEVER; Start 08/25/18 at 21:15; Stop 08/26/18 at 21:14; Status DC Sodium Chloride 1,000 ml @ 125 mls/hr 1X ONCE IV Last administered on 08/25/18at 23:09; Start 08/25/18 at 21:15; Stop 08/26/18 at 05:14; Status DC Daptomycin 610 mg/ Sodium Chloride 50 ml @ 100 mls/hr QODAY IV Last administered on 08/27/18at 08:59; Start 08/27/18 at 09:00 Meropenem 500 mg/ Sodium Chloride 50 ml @ 100 mls/hr 1X ONCE IV Last administered on 08/25/18at 22:12; Start 08/25/18 at 22:00; Stop 08/25/18 at 22:29; Status DC Doxycycline Hyclate 100 mg/ Dextrose 100 ml @ 50 mls/hr Q12HR IV Last administered on 08/27/18at 08:13; Start 08/26/18 at 09:00 Meropenem 500 mg/ Sodium Chloride 50 ml @ 100 mls/hr DAILY IV Last administered on 08/27/18at 08:13; Start 08/26/18 at 09:00 Sodium Chloride (Normal Saline Flush) 10 ml QSHIFT PRN IV AFTER MEDS AND BLOOD DRAWS; Start 08/26/18 at 09:15 Norepinephrine Bitartrate 250 ml @ 0 mls/hr CONT PRN IV PER PROTOCOL; Start 08/26/18 at 09:15 Famotidine (Pepcid) 20 mg DAILY PO Last administered on 08/27/18at 08:14; Start 08/26/18 at 12:00 Sodium Chloride 1,000 ml @ 1,000 mls/hr Q1H PRN IV hypotension; Start 08/26/18 at 11:51; Stop 08/26/18 at 17:50; Status DC Sodium Chloride (Normal Saline Flush) 10 ml 1X PRN PRN IV AP catheter pack; Start 08/26/18 at 12:00; Stop 08/27/18 at 11:59 Sodium Chloride (Normal Saline Flush) 10 ml 1X PRN PRN IV [employer] catheter pack; Start 08/26/18 at 12:00; Stop 08/27/18 at 11:59 Sodium Chloride 1,000 ml @ 400 mls/hr Q2H30M PRN IV PATENCY; Start 08/26/18 at 11:51; Stop 08/26/18 at 23:50; Status DC Info (PHARMACY MONITORING -- do not chart) 1 each PRN DAILY PRN MC SEE COMMENTS; Start 08/26/18 at 12:00; Status UNV Info (PHARMACY MONITORING -- do not chart) 1 each PRN DAILY PRN MC SEE COMMENTS; Start 08/26/18 at 12:00 Lidocaine/Sodium Bicarbonate (Buffered Lidocaine 1%) 4 ml 1X ONCE INJ Last administered on 08/26/18at 12:45; Start 08/26/18 at 12:45; Stop 08/26/18 at 12:48; Status DC Heparin Sodium (Porcine) (Heparin Sodium) 2,500 unit 1X ONCE INT CAT Last administered on 08/26/18at 12:45; Start 08/26/18 at 12:45; Stop 08/26/18 at 12:48; Status DC Lidocaine/Sodium Bicarbonate (Buffered Lidocaine 1%) 3 ml STK-MED ONCE .ROUTE ; Start 08/26/18 at 12:49; Stop 08/26/18 at 12:50; Status DC Heparin Sodium (Porcine) (Heparin Sodium) 10,000 unit STK-MED ONCE .ROUTE ; Start 08/26/18 at 12:49; Stop 08/26/18 at 12:50; Status DC Lactobacillus Rhamnosus (Culturelle) 1 cap BID PO Last administered on 08/27/18at 08:14; Start 08/26/18 at 21:00 Acetaminophen (Tylenol) 325 mg STK-MED ONCE PO ; Start 08/27/18 at 00:43; Stop 08/27/18 at 00:44; Status DC Active Scripts Active Potassium Chloride 20 Meq Tablet.er 20 Meq PO DAILY Orphenadrine Citrate 100 Mg Tablet.er 100 Mg PO Q12HR Anaprox Ds (Naproxen Sodium) 550 Mg Tablet 550 Mg PO Q12HR Reported Prednisone 20 Mg Tablet 1 Tab PO DAILY Hydrochlorothiazide Tablet (Hydrochlorothiazide) 12.5 Mg Tablet 12.5 Mg PO DAILY Shilpi Allergy (Fexofenadine Hcl) 180 Mg Tablet 1 Tab PO DAILY Vitals/I & O Vital Sign - Last 24 Hours 08/26/18 08/26/18 08/26/18 08/26/18 10:00 11:00 12:00 13:00 Temp 98.2 98.2 Pulse 95 87 92 90 Resp 23 B/P (MAP) 116/69 (85) 116/72 (87) 131/70 (90) Pulse Ox 95 93 96 96 O2 Delivery Room Air Room Air Room Air Room Air 08/26/18 08/26/18 08/26/18 08/26/18 14:00 15:00 16:00 16:00 Temp 97.9 97.9 Pulse 93 100 101 Resp 25 27 B/P (MAP) 113/48 (69) 89/54 (66) 114/59 (77) Pulse Ox 96 96 98 O2 Delivery Room Air Room Air Nasal Cannula Room Air O2 Flow Rate 2.0 08/26/18 08/26/18 08/26/18 08/26/18 17:00 18:00 19:00 19:13 Pulse 110 112 116 Resp 28 30 42 B/P (MAP) 107/52 (70) 117/58 (77) 95/55 (68) Pulse Ox 97 99 96 96 O2 Delivery Room Air Room Air Nasal Cannula BiPAP/CPAP O2 Flow Rate 3.0 08/26/18 08/26/18 08/26/18 08/26/18 20:00 20:00 21:00 22:00 Temp 98.3 98.3 Pulse 107 111 110 Resp 36 37 39 B/P (MAP) 115/60 (78) 121/47 (71) 113/55 (74) Pulse Ox 93 95 95 O2 Delivery Nasal Cannula Nasal Cannula Nasal Cannula Room Air O2 Flow Rate 3.0 3.0 3.0 08/26/18 08/27/18 08/27/18 08/27/18 23:00 00:00 00:00 01:00 Temp 100.5 103.4 100.5 103.4 Pulse 102 110 106 Resp 34 47 45 B/P (MAP) 105/46 (65) 85/46 (59) 112/50 (70) Pulse Ox 91 94 92 O2 Delivery Room Air Bi-pap BiPAP/CPAP Nasal Cannula O2 Flow Rate 3.0 08/27/18 08/27/18 08/27/18 08/27/18 02:00 03:00 04:00 04:00 Temp 100.7 97.9 100.7 97.9 Pulse 103 100 99 Resp 44 24 32 B/P (MAP) 93/43 (60) 121/62 (81) 109/68 (82) Pulse Ox 90 94 93 O2 Delivery Room Air Nasal Cannula Nasal Cannula Nasal Cannula O2 Flow Rate 3.0 3.0 3.0 08/27/18 08/27/18 05:00 06:00 Pulse 96 98 Resp 29 42 B/P (MAP) 108/53 (71) 117/62 (80) O2 Delivery Nasal Cannula Nasal Cannula O2 Flow Rate 3.0 3.0 Intake and Output 08/26/18 08/26/18 08/27/18 15:00 23:00 07:00 Intake Total 700 ml 300 ml 1580 ml Output Total 0 ml 50 ml Balance 700 ml 250 ml 1580 ml EVGENY PARKER MD August 27, 2018 09:47
[2018-08-27 09:48] LABS: BASE EXCESS ABG -10 mmol/L (-3-3); HCO3 ABG 14 mmol/L (21-28); PCO2 ABG 24 mmHg (35-46); PO2 ABG 71 mmHg (75-108); SAT O2 ABG 92 % (92-99)
[2018-08-27 09:49] LABS: FIO2 ABG 36
[2018-08-27 10:14] LABS: FECAL OB PT POSITIVE (NEG)
[2018-08-27] MEDS ORDERED: IV NORMAL SALINE 1000ML BAG 1,000 ML IV ONE (10:30)
--- NOTE | 2018-08-27 10:30 | RAD ---
Portable chest, 08/27/2018: HISTORY: Check central line placement Comparison is made to yesterday's study. A new right jugular central venous catheter has been inserted extending down to the level of the atriocaval junction. The right jugular dialysis type catheter is unchanged in position. The heart size and pulmonary vascularity are normal. No pulmonary infiltrate is seen. There is no evidence of pleural fluid or pneumothorax. IMPRESSION: 1. A right jugular central venous catheter has been inserted extending to the level of the atriocaval junction. 2. No other significant change since yesterday's exam. Electronically signed by: Jose Hudson MD (08/27/2018 10:27 AM) [facility]
--- NOTE | 2018-08-27 10:34 | RAD ---
Procedure: Ultrasound-guided placement of right internal jugular central venous catheter08/27/2018 10:30 AM Clinical Indication: Need for central venous access. Patient critically ill in the intensive care unit. Multiple effusions. Discussion: The risks and benefits of the procedure were discussed the patient and/or their manufacturer's service representative. Informed consent was obtained. A timeout procedure was performed. All elements of maximal sterile barrier technique including the use of a cap, mask, sterile gown, sterile gloves, large sterile sheet, appropriate hand hygiene, and 2% chlorhexidine for cutaneous antisepsis (or acceptable alternative antiseptic per current guidelines) were followed for this procedure. The patient was prepped and draped in the usual sterile fashion. Ultrasound interrogation of the right neck revealed patency and compressibility of the right internal jugular vein. A 21-gauge micropuncture was then used to gain access to this vein under ultrasound guidance. A hard copy ultrasound image was recorded. A guidewire was advanced centrally. 5 Amharic sheath was placed. Over a wire following dilatation, a triple-lumen central venous catheter was advanced centrally. Catheter was found to flush and aspirate normally. Follow-up chest radiograph demonstrates tip at the cavoatrial junction. Catheter secured in place and a sterile dressing was applied. No immediate complications were identified. Impression: Successful ultrasound-guided placement of right internal jugular triple-lumen central venous catheter
--- NOTE | 2018-08-27 10:44 | PDOC ---
SUBJECTIVE ROS Stable, Mildly confused as per RN No concerns voiced by Pt and Seen on HD OBJECTIVE Vital Signs Vital Signs Date Time Temp Pulse Resp B/P (MAP) Pulse Ox O2 Delivery O2 Flow Rate FiO2 08/27/18 06:00 98 42 117/62 (80) Nasal Cannula 3.0 08/27/18 04:00 97.9 93 97.9 I & 0 Intake and Output 08/27/18 06:59 Intake Total 2580 ml Output Total 50 ml Balance 2530 ml Intake Oral 2330 ml IV Total 250 ml Output Urine Total 50 ml PHYSICAL EXAM Physical Exam GENERAL: NAD HEENT: OM moist NECK: Supple. LUNGS: Clear to auscultation. HEART: S1 and S2. ABDOMEN: Obese, soft, nontender with bowel sounds present. EXTREMITIES: No gross edema or cyanosis. SKIN: Warm without rash. Left knee has several scabs/scarring. NEUROLOGIC: Alert and oriented x 3 - No rose DIAGNOSIS/ASSESSMENT Assessment & Plan RADHA - acute tubular necrosis Initiated on HD 08/26 due to Azotemia and Fluid Abdominal ultrasound Rt Kidney and UA unremarkable Strict I/O ( doesn't have Rose) - Bladder scan prn 2nd treatment today , seen on HD, tolerating well Continue as ordered Hyponatremia due to the above Stable Metabolic acidosis Improving , HD today Increased LFT's Thrombocytopenia. As per Hematology/Oncology, a peripheral smear does not reveal schistocy ernesto. Discussed with RN COMMENT/RELEVANT DATA Meds Current Medications Medications (Trade) Dose Ordered Sig/Noemi Start Time Stop Time Status Last Admin Dose Admin Acetaminophen (Tylenol) 325 mg STK-MED ONCE 08/27/18 00:43 08/27/18 00:44 DC Aztreonam (Azactam) 2 gm 1X ONCE 08/25/18 21:15 08/25/18 21:16 DC 08/25/18 21:15 2 GM Ceftriaxone Sodium (Rocephin) 1 gm 1X ONCE 08/25/18 20:30 08/25/18 20:31 DC 08/25/18 20:36 1 GM Daptomycin 610 mg/ Sodium Chloride 50 ml @ 100 mls/hr QODAY 08/27/18 09:00 08/27/18 08:59 100 MLS/HR Doxycycline Hyclate 100 mg/ Dextrose 100 ml @ 50 mls/hr Q12HR 08/26/18 09:00 08/27/18 08:13 50 MLS/HR Famotidine (Pepcid) 20 mg DAILY 08/26/18 12:00 08/27/18 08:14 20 MG Heparin Sodium (Porcine) (Heparin Sodium) 10,000 unit STK-MED ONCE 08/26/18 12:49 08/26/18 12:50 DC Ibuprofen (Motrin) 600 mg 1X ONCE 08/25/18 19:45 08/25/18 19:49 DC 08/25/18 20:38 600 MG Info (PHARMACY MONITORING -- do not chart) 1 each PRN DAILY PRN 08/26/18 12:00 Lactobacillus Rhamnosus (Culturelle) 1 cap BID 08/26/18 21:00 08/27/18 08:14 1 CAP Lidocaine/Sodium Bicarbonate (Buffered Lidocaine 1%) 3 ml STK-MED ONCE 08/26/18 12:49 08/26/18 12:50 DC Magnesium Sulfate 50 ml @ 25 mls/hr 1X ONCE 08/25/18 21:15 08/25/18 23:14 DC 08/25/18 23:51 25 MLS/HR Meropenem 500 mg/ Sodium Chloride 50 ml @ 100 mls/hr DAILY 08/26/18 09:00 08/27/18 08:13 100 MLS/HR Norepinephrine Bitartrate 250 ml @ 0 mls/hr CONT PRN 08/26/18 09:15 08/27/18 10:21 1.88 MLS/HR Ondansetron HCl (Zofran) 4 mg PRN Q8HRS PRN 08/25/18 21:15 08/26/18 21:14 DC Piperacillin Sod/ Tazobactam Sod 4.5 gm/Sodium Chloride 100 ml @ 200 mls/hr 1X ONCE 08/25/18 21:15 08/25/18 21:44 DC Sodium Chloride 1,000 ml @ 1,000 mls/hr 1X ONCE 08/27/18 10:30 08/27/18 11:29 Sodium Chloride (Normal Saline Flush) 10 ml 1X PRN PRN 08/26/18 12:00 08/27/18 11:59 Vancomycin HCl 2 gm/Sodium Chloride 500 ml @ 250 mls/hr 1X ONCE 08/25/18 21:30 08/25/18 23:29 DC 08/25/18 23:10 250 MLS/HR Lab Laboratory Tests Test 08/26/18 12:15 08/27/18 04:05 08/27/18 04:25 08/27/18 09:20 Sodium Level 129 mmol/L (136-145) 132 mmol/L (136-145) Potassium Level 3.7 mmol/L (3.5-5.1) 4.0 mmol/L (3.5-5.1) Chloride Level 94 mmol/L (98-107) 94 mmol/L (98-107) Carbon Dioxide Level 13 mmol/L (21-32) 18 mmol/L (21-32) Anion Gap 22 (6-14) 20 (6-14) Blood Urea Nitrogen 64 mg/dL (8-26) 59 mg/dL (8-26) Creatinine 5.8 mg/dL (0.7-1.3) 5.5 mg/dL (0.7-1.3) Estimated GFR (Cockcroft-Gault) 10.3 10.9 BUN/Creatinine Ratio 11 (6-20) 11 (6-20) Glucose Level 84 mg/dL (70-99) 93 mg/dL (70-99) Lactic Acid Level 5.0 mmol/L (0.4-2.0) Calcium Level 6.6 mg/dL (8.5-10.1) 7.0 mg/dL (8.5-10.1) Total Bilirubin 5.2 mg/dL (0.2-1.0) 5.3 mg/dL (0.2-1.0) Aspartate Amino Transf (AST/SGOT) 381 U/L (15-37) 545 U/L (15-37) Alanine Aminotransferase (ALT/SGPT) 140 U/L (16-63) 152 U/L (16-63) Alkaline Phosphatase 219 U/L (46-116) 227 U/L (46-116) Creatine Kinase 326 U/L (39-308) Total Protein 4.9 g/dL (6.4-8.2) 4.9 g/dL (6.4-8.2) Albumin 2.0 g/dL (3.4-5.0) 1.7 g/dL (3.4-5.0) Albumin/Globulin Ratio 0.7 (1.0-1.7) 0.5 (1.0-1.7) Thyroid Stimulating Hormone (TSH) 1.364 uIU/mL (0.358-3.74) White Blood Count 11.1 x10^3/uL (4.0-11.0) Red Blood Count 4.55 x10^6/uL (4.30-5.70) Hemoglobin 13.2 g/dL (13.0-17.5) Hematocrit 38.6 % (39.0-53.0) Mean Corpuscular Volume 85 fL (79-100) Mean Corpuscular Hemoglobin 29 pg (25-35) Mean Corpuscular Hemoglobin Concent 34 g/dL (31-37) Red Cell Distribution Width 16.2 % (11.5-14.5) Platelet Count 30 x10^3/uL (140-400) Neutrophils (%) (Auto) 94 % (31-73) Lymphocytes (%) (Auto) 1 % (24-48) Monocytes (%) (Auto) 5 % (0-9) Eosinophils (%) (Auto) 0 % (0-3) Basophils (%) (Auto) 0 % (0-3) Neutrophils # (Auto) 10.4 x10^3uL (1.8-7.7) Lymphocytes # (Auto) 0.2 x10^3/uL (1.0-4.8) Monocytes # (Auto) 0.5 x10^3/uL (0.0-1.1) Eosinophils # (Auto) 0.0 x10^3/uL (0.0-0.7) Basophils # (Auto) 0.0 x10^3/uL (0.0-0.2) Magnesium Level 1.9 mg/dL (1.8-2.4) Stool Occult Blood Positive (NEG) Test 08/27/18 09:22 O2 Saturation 92 % (92-99) Arterial Blood pH 7.37 (7.35-7.45) Arterial Blood pCO2 at Patient Temp 24 mmHg (35-46) Arterial Blood pO2 at Patient Temp 71 mmHg (75-108) Arterial Blood HCO3 14 mmol/L (21-28) Arterial Blood Base Excess -10 mmol/L (-3-3) FiO2 36 Results All relevant outside records, renal labs, imaging studies, telemetry/EKG's were reviewed. OG CHAVES MD August 27, 2018 10:44
[2018-08-27] MEDS ORDERED: IV NORMAL SALINE 1000ML BAG 1,000 ML IV PRN ×2 (11:28)
[2018-08-27] MEDS ORDERED: 0.9 % SODIUM CHLORIDE 10 ML DISP.SYRIN. IV PRN ×2 (11:30)
[2018-08-27] MEDS ORDERED: DIALYSIS PATIENT. MC PRN ×2 (11:30)
[2018-08-27] MEDS ORDERED: ALBUMIN HUMAN 25% 200 ML IV PRN (11:30)
--- NOTE | 2018-08-27 11:31 | PDOC ---
PULMONARY PROGRESS NOTES Vitals Vital Signs Date Time Temp Pulse Resp B/P (MAP) Pulse Ox O2 Delivery O2 Flow Rate FiO2 08/27/18 08:00 Nasal Cannula 3.0 08/27/18 06:00 98 42 117/62 (80) 08/27/18 04:00 97.9 93 97.9 Skin: Warm Labs Laboratory Tests Test 08/25/18 19:45 08/25/18 20:28 08/25/18 20:30 08/25/18 22:22 White Blood Count 6.2 x10^3/uL (4.0-11.0) Red Blood Count 4.74 x10^6/uL (4.30-5.70) Hemoglobin 14.0 g/dL (13.0-17.5) Hematocrit 40.8 % (39.0-53.0) Mean Corpuscular Volume 86 fL (79-100) Mean Corpuscular Hemoglobin 30 pg (25-35) Mean Corpuscular Hemoglobin Concent 34 g/dL (31-37) Red Cell Distribution Width 15.7 % (11.5-14.5) Platelet Count 17 x10^3/uL (140-400) Neutrophils (%) (Auto) 97 % (31-73) Lymphocytes (%) (Auto) 1 % (24-48) Monocytes (%) (Auto) 2 % (0-9) Eosinophils (%) (Auto) 0 % (0-3) Basophils (%) (Auto) 0 % (0-3) Neutrophils # (Auto) 6.1 x10^3uL (1.8-7.7) Lymphocytes # (Auto) 0.1 x10^3/uL (1.0-4.8) Monocytes # (Auto) 0.1 x10^3/uL (0.0-1.1) Eosinophils # (Auto) 0.0 x10^3/uL (0.0-0.7) Basophils # (Auto) 0.0 x10^3/uL (0.0-0.2) Segmented Neutrophils % 68 % (35-66) Band Neutrophils % 24 % (0-9) Lymphocytes % 5 % (24-48) Metamyelocytes % 3 % (0-0) Toxic Granulation Slight Toxic Vacuolation Mod Platelet Estimate Decreased (ADEQUATE) Erythrocyte Sedimentation Rate 11 (0-15) Prothrombin Time 13.4 SEC (11.7-14.0) Prothromb Time International Ratio 1.1 (0.8-1.1) Activated Partial Thromboplast Time 38 SEC (24-38) Sodium Level 128 mmol/L (136-145) Potassium Level 3.7 mmol/L (3.5-5.1) Chloride Level 91 mmol/L (98-107) Carbon Dioxide Level 20 mmol/L (21-32) Anion Gap 17 (6-14) Blood Urea Nitrogen 45 mg/dL (8-26) Creatinine 3.9 mg/dL (0.7-1.3) Estimated GFR (Cockcroft-Gault) 16.3 BUN/Creatinine Ratio 12 (6-20) Glucose Level 94 mg/dL (70-99) Lactic Acid Level 5.3 mmol/L (0.4-2.0) Calcium Level 7.6 mg/dL (8.5-10.1) Magnesium Level 1.3 mg/dL (1.8-2.4) Total Bilirubin 4.7 mg/dL (0.2-1.0) Aspartate Amino Transf (AST/SGOT) 233 U/L (15-37) Alanine Aminotransferase (ALT/SGPT) 127 U/L (16-63) Alkaline Phosphatase 215 U/L (46-116) Ammonia < 10 mcmol/L (11-34) Lactate Dehydrogenase 1240 U/L (85-227) Creatine Kinase 284 U/L (39-308) Creatine Kinase MB (Mass) 1.7 ng/mL (0.0-3.6) Creatine Kinase MB Relative Index 0.6 % (0-4) Troponin I Quantitative 0.111 ng/mL (0.000-0.055) C-Reactive Protein, Quantitative 242.9 mg/L (0-3.3) Total Protein 6.0 g/dL (6.4-8.2) Albumin 2.5 g/dL (3.4-5.0) Albumin/Globulin Ratio 0.7 (1.0-1.7) Lipase 425 U/L (73-393) Ethyl Alcohol Level < 10 mg/dL (0-10) Heterophil Agglutinins Negative (NEGATIVE) Influenza Type A Antigen Negative (NEGATIVE) Influenza Type B Antigen Negative (NEGATIVE) Group A Streptococcus Rapid Negative (NEGATIVE) Urine Collection Type Unknown Urine Color Patrizia Urine Clarity Cloudy Urine pH 5.5 Urine Specific [place] 1.020 Urine Protein 100 mg/dL (NEG-TRACE) Urine Glucose (UA) Negative mg/dL (NEG) Urine Ketones (Stick) Negative mg/dL (NEG) Urine Blood Small (NEG) Urine Nitrite Negative (NEG) Urine Bilirubin Moderate (NEG) Urine Urobilinogen Dipstick 1.0 mg/dL (0.2 mg/dL) Urine Leukocyte Esterase Negative (NEG) Urine RBC Occ /HPF (0-2) Urine WBC Occ /HPF (0-4) Urine Squamous Epithelial Cells Occ /LPF Urine Transitional Epithelial Cells Occ /LPF Urine Amorphous Sediment Present /HPF Urine Bacteria 0 /HPF (0-FEW) Urine Opiates Screen Neg (NEG) Urine Methadone Screen Neg (NEG) Urine Barbiturates Neg (NEG) Urine Phencyclidine Screen Neg (NEG) Urine Amphetamine/Methamphetamine Neg (NEG) Urine Benzodiazepines Screen Neg (NEG) Urine Cocaine Screen Neg (NEG) Urine Cannabinoids Screen Neg (NEG) Urine Ethyl Alcohol Neg (NEG) Test 08/26/18 00:15 08/26/18 03:15 08/26/18 09:45 08/26/18 12:15 Lactic Acid Level 5.1 mmol/L (0.4-2.0) 4.9 mmol/L (0.4-2.0) 4.5 mmol/L (0.4-2.0) 5.0 mmol/L (0.4-2.0) Troponin I Quantitative 0.160 ng/mL (0.000-0.055) 0.165 ng/mL (0.000-0.055) White Blood Count 6.5 x10^3/uL (4.0-11.0) 7.5 x10^3/uL (4.0-11.0) Red Blood Count 4.54 x10^6/uL (4.30-5.70) 4.39 x10^6/uL (4.30-5.70) Hemoglobin 13.3 g/dL (13.0-17.5) 12.7 g/dL (13.0-17.5) Hematocrit 39.3 % (39.0-53.0) 37.9 % (39.0-53.0) Mean Corpuscular Volume 86 fL (79-100) 86 fL (79-100) Mean Corpuscular Hemoglobin 29 pg (25-35) 29 pg (25-35) Mean Corpuscular Hemoglobin Concent 34 g/dL (31-37) 33 g/dL (31-37) Red Cell Distribution Width 15.9 % (11.5-14.5) 16.4 % (11.5-14.5) Platelet Count 17 x10^3/uL (140-400) 15 x10^3/uL (140-400) Neutrophils (%) (Auto) 98 % (31-73) 97 % (31-73) Lymphocytes (%) (Auto) 2 % (24-48) 2 % (24-48) Monocytes (%) (Auto) 1 % (0-9) 1 % (0-9) Eosinophils (%) (Auto) 0 % (0-3) 0 % (0-3) Basophils (%) (Auto) 0 % (0-3) 0 % (0-3) Neutrophils # (Auto) 6.4 x10^3uL (1.8-7.7) 7.2 x10^3uL (1.8-7.7) Lymphocytes # (Auto) 0.1 x10^3/uL (1.0-4.8) 0.2 x10^3/uL (1.0-4.8) Monocytes # (Auto) 0.0 x10^3/uL (0.0-1.1) 0.0 x10^3/uL (0.0-1.1) Eosinophils # (Auto) 0.0 x10^3/uL (0.0-0.7) 0.0 x10^3/uL (0.0-0.7) Basophils # (Auto) 0.0 x10^3/uL (0.0-0.2) 0.0 x10^3/uL (0.0-0.2) Absolute Reticulocyte Count 0.030 x10^6/uL (0.020-0.120) Percent Reticulocyte Count 0.7 % (0.5-2.3) Immature Reticulocyte Fraction 0.35 (0.20-0.60) Haptoglobin 94 mg/dL (34-200) Prothrombin Time 14.2 SEC (11.7-14.0) 14.3 SEC (11.7-14.0) Prothromb Time International Ratio 1.1 (0.8-1.1) 1.1 (0.8-1.1) Activated Partial Thromboplast Time 44 SEC (24-38) 47 SEC (24-38) Fibrinogen 319 mg/dL (200-440) 340 mg/dL (200-440) D-Dimer ([place]) 12.89 ug/mlFEU (0.00-0.50) 0.85 ug/mlFEU (0.00-0.50) Sodium Level 129 mmol/L (136-145) 130 mmol/L (136-145) 129 mmol/L (136-145) Potassium Level 3.5 mmol/L (3.5-5.1) 3.6 mmol/L (3.5-5.1) 3.7 mmol/L (3.5-5.1) Chloride Level 94 mmol/L (98-107) 94 mmol/L (98-107) 94 mmol/L (98-107) Carbon Dioxide Level 16 mmol/L (21-32) 16 mmol/L (21-32) 13 mmol/L (21-32) Anion Gap 19 (6-14) 20 (6-14) 22 (6-14) Blood Urea Nitrogen 53 mg/dL (8-26) 54 mg/dL (8-26) 64 mg/dL (8-26) Creatinine 4.7 mg/dL (0.7-1.3) 4.7 mg/dL (0.7-1.3) 5.8 mg/dL (0.7-1.3) Estimated GFR (Cockcroft-Gault) 13.1 13.1 10.3 BUN/Creatinine Ratio 11 (6-20) 11 (6-20) 11 (6-20) Glucose Level 80 mg/dL (70-99) 77 mg/dL (70-99) 84 mg/dL (70-99) Calcium Level 6.8 mg/dL (8.5-10.1) 7.2 mg/dL (8.5-10.1) 6.6 mg/dL (8.5-10.1) Total Bilirubin 4.7 mg/dL (0.2-1.0) 4.6 mg/dL (0.2-1.0) 5.2 mg/dL (0.2-1.0) Direct Bilirubin 4.2 mg/dL (0.0-0.2) Aspartate Amino Transf (AST/SGOT) 288 U/L (15-37) 313 U/L (15-37) 381 U/L (15-37) Alanine Aminotransferase (ALT/SGPT) 127 U/L (16-63) 135 U/L (16-63) 140 U/L (16-63) Alkaline Phosphatase 200 U/L (46-116) 197 U/L (46-116) 219 U/L (46-116) Total Protein 5.3 g/dL (6.4-8.2) 5.3 g/dL (6.4-8.2) 4.9 g/dL (6.4-8.2) Albumin 2.1 g/dL (3.4-5.0) 2.2 g/dL (3.4-5.0) 2.0 g/dL (3.4-5.0) Albumin/Globulin Ratio 0.7 (1.0-1.7) 0.7 (1.0-1.7) 0.7 (1.0-1.7) Lipase 516 U/L (73-393) Procalcitonin 19.50 ng/mL (0.00-0.10) Hepatitis A IgM Antibody Nonreactive (Nonreactive) Hepatitis B Surface Antigen Nonreactive (Nonreactive) Hepatitis B Surface Antibody Reactive Hepatitis B Core IgM Antibody Nonreactive (Nonreactive) Hepatitis C IgG Antibody Nonreactive (Nonreactive) Ionized Calcium 0.85 mmol/L (1.13-1.32) Ammonia 13 mcmol/L (11-34) Creatine Kinase 326 U/L (39-308) Thyroid Stimulating Hormone (TSH) 1.364 uIU/mL (0.358-3.74) Test 08/27/18 04:05 08/27/18 04:25 08/27/18 09:20 08/27/18 09:22 White Blood Count 11.1 x10^3/uL (4.0-11.0) Red Blood Count 4.55 x10^6/uL (4.30-5.70) Hemoglobin 13.2 g/dL (13.0-17.5) Hematocrit 38.6 % (39.0-53.0) Mean Corpuscular Volume 85 fL (79-100) Mean Corpuscular Hemoglobin 29 pg (25-35) Mean Corpuscular Hemoglobin Concent 34 g/dL (31-37) Red Cell Distribution Width 16.2 % (11.5-14.5) Platelet Count 30 x10^3/uL (140-400) Neutrophils (%) (Auto) 94 % (31-73) Lymphocytes (%) (Auto) 1 % (24-48) Monocytes (%) (Auto) 5 % (0-9) Eosinophils (%) (Auto) 0 % (0-3) Basophils (%) (Auto) 0 % (0-3) Neutrophils # (Auto) 10.4 x10^3uL (1.8-7.7) Lymphocytes # (Auto) 0.2 x10^3/uL (1.0-4.8) Monocytes # (Auto) 0.5 x10^3/uL (0.0-1.1) Eosinophils # (Auto) 0.0 x10^3/uL (0.0-0.7) Basophils # (Auto) 0.0 x10^3/uL (0.0-0.2) Sodium Level 132 mmol/L (136-145) Potassium Level 4.0 mmol/L (3.5-5.1) Chloride Level 94 mmol/L (98-107) Carbon Dioxide Level 18 mmol/L (21-32) Anion Gap 20 (6-14) Blood Urea Nitrogen 59 mg/dL (8-26) Creatinine 5.5 mg/dL (0.7-1.3) Estimated GFR (Cockcroft-Gault) 10.9 BUN/Creatinine Ratio 11 (6-20) Glucose Level 93 mg/dL (70-99) Calcium Level 7.0 mg/dL (8.5-10.1) Magnesium Level 1.9 mg/dL (1.8-2.4) Total Bilirubin 5.3 mg/dL (0.2-1.0) Aspartate Amino Transf (AST/SGOT) 545 U/L (15-37) Alanine Aminotransferase (ALT/SGPT) 152 U/L (16-63) Alkaline Phosphatase 227 U/L (46-116) Total Protein 4.9 g/dL (6.4-8.2) Albumin 1.7 g/dL (3.4-5.0) Albumin/Globulin Ratio 0.5 (1.0-1.7) Stool Occult Blood Positive (NEG) O2 Saturation 92 % (92-99) Arterial Blood pH 7.37 (7.35-7.45) Arterial Blood pCO2 at Patient Temp 24 mmHg (35-46) Arterial Blood pO2 at Patient Temp 71 mmHg (75-108) Arterial Blood HCO3 14 mmol/L (21-28) Arterial Blood Base Excess -10 mmol/L (-3-3) FiO2 36 Laboratory Tests Test 08/26/18 12:15 08/27/18 04:05 08/27/18 04:25 08/27/18 09:20 Sodium Level 129 mmol/L (136-145) 132 mmol/L (136-145) Potassium Level 3.7 mmol/L (3.5-5.1) 4.0 mmol/L (3.5-5.1) Chloride Level 94 mmol/L (98-107) 94 mmol/L (98-107) Carbon Dioxide Level 13 mmol/L (21-32) 18 mmol/L (21-32) Anion Gap 22 (6-14) 20 (6-14) Blood Urea Nitrogen 64 mg/dL (8-26) 59 mg/dL (8-26) Creatinine 5.8 mg/dL (0.7-1.3) 5.5 mg/dL (0.7-1.3) Estimated GFR (Cockcroft-Gault) 10.3 10.9 BUN/Creatinine Ratio 11 (6-20) 11 (6-20) Glucose Level 84 mg/dL (70-99) 93 mg/dL (70-99) Lactic Acid Level 5.0 mmol/L (0.4-2.0) Calcium Level 6.6 mg/dL (8.5-10.1) 7.0 mg/dL (8.5-10.1) Total Bilirubin 5.2 mg/dL (0.2-1.0) 5.3 mg/dL (0.2-1.0) Aspartate Amino Transf (AST/SGOT) 381 U/L (15-37) 545 U/L (15-37) Alanine Aminotransferase (ALT/SGPT) 140 U/L (16-63) 152 U/L (16-63) Alkaline Phosphatase 219 U/L (46-116) 227 U/L (46-116) Creatine Kinase 326 U/L (39-308) Total Protein 4.9 g/dL (6.4-8.2) 4.9 g/dL (6.4-8.2) Albumin 2.0 g/dL (3.4-5.0) 1.7 g/dL (3.4-5.0) Albumin/Globulin Ratio 0.7 (1.0-1.7) 0.5 (1.0-1.7) Thyroid Stimulating Hormone (TSH) 1.364 uIU/mL (0.358-3.74) White Blood Count 11.1 x10^3/uL (4.0-11.0) Red Blood Count 4.55 x10^6/uL (4.30-5.70) Hemoglobin 13.2 g/dL (13.0-17.5) Hematocrit 38.6 % (39.0-53.0) Mean Corpuscular Volume 85 fL (79-100) Mean Corpuscular Hemoglobin 29 pg (25-35) Mean Corpuscular Hemoglobin Concent 34 g/dL (31-37) Red Cell Distribution Width 16.2 % (11.5-14.5) Platelet Count 30 x10^3/uL (140-400) Neutrophils (%) (Auto) 94 % (31-73) Lymphocytes (%) (Auto) 1 % (24-48) Monocytes (%) (Auto) 5 % (0-9) Eosinophils (%) (Auto) 0 % (0-3) Basophils (%) (Auto) 0 % (0-3) Neutrophils # (Auto) 10.4 x10^3uL (1.8-7.7) Lymphocytes # (Auto) 0.2 x10^3/uL (1.0-4.8) Monocytes # (Auto) 0.5 x10^3/uL (0.0-1.1) Eosinophils # (Auto) 0.0 x10^3/uL (0.0-0.7) Basophils # (Auto) 0.0 x10^3/uL (0.0-0.2) Magnesium Level 1.9 mg/dL (1.8-2.4) Stool Occult Blood Positive (NEG) Test 08/27/18 09:22 O2 Saturation 92 % (92-99) Arterial Blood pH 7.37 (7.35-7.45) Arterial Blood pCO2 at Patient Temp 24 mmHg (35-46) Arterial Blood pO2 at Patient Temp 71 mmHg (75-108) Arterial Blood HCO3 14 mmol/L (21-28) Arterial Blood Base Excess -10 mmol/L (-3-3) FiO2 36 Medications Active Scripts Medications Dose Route/Sig Max Daily Dose Days Date Category Prednisone 20 Mg Tablet 1 Tab PO DAILY 08/26/18 Reported Hydrochlorothiazide Tablet (Hydrochlorothiazide) 12.5 Mg Tablet 12.5 Mg PO DAILY 08/26/18 Reported Shilpi Allergy (Fexofenadine Hcl) 180 Mg Tablet 1 Tab PO DAILY 08/26/18 Reported Potassium Chloride 20 Meq Tablet.er 20 Meq PO DAILY 08/24/18 Rx Orphenadrine Citrate 100 Mg Tablet.er 100 Mg PO Q12HR 02/03/16 Rx Anaprox Ds (Naproxen Sodium) 550 Mg Tablet 550 Mg PO Q12HR 02/03/16 Rx Impression . FULL NOTE DICTATED AGREE WITH CURRENT RX PRN BIPAP 02 SPOKE WITH ANISH DENNIS MD August 27, 2018 11:31
--- NOTE | 2018-08-27 12:55 | PDOC ---
G I PROGRESS NOTE Subjective Feeling better in general. Objective Staff report loose stool, but not really diarrhea. Physical Exam Lungs clear anteriorly. RRR Abdomen soft, protuberant, not tender. Review of Relevant I have reviewed the following items gera (where applicable) has been applied. Labs Laboratory Tests Test 08/25/18 19:45 08/25/18 20:28 08/25/18 20:30 08/25/18 22:22 White Blood Count 6.2 x10^3/uL (4.0-11.0) Red Blood Count 4.74 x10^6/uL (4.30-5.70) Hemoglobin 14.0 g/dL (13.0-17.5) Hematocrit 40.8 % (39.0-53.0) Mean Corpuscular Volume 86 fL (79-100) Mean Corpuscular Hemoglobin 30 pg (25-35) Mean Corpuscular Hemoglobin Concent 34 g/dL (31-37) Red Cell Distribution Width 15.7 % (11.5-14.5) Platelet Count 17 x10^3/uL (140-400) Neutrophils (%) (Auto) 97 % (31-73) Lymphocytes (%) (Auto) 1 % (24-48) Monocytes (%) (Auto) 2 % (0-9) Eosinophils (%) (Auto) 0 % (0-3) Basophils (%) (Auto) 0 % (0-3) Neutrophils # (Auto) 6.1 x10^3uL (1.8-7.7) Lymphocytes # (Auto) 0.1 x10^3/uL (1.0-4.8) Monocytes # (Auto) 0.1 x10^3/uL (0.0-1.1) Eosinophils # (Auto) 0.0 x10^3/uL (0.0-0.7) Basophils # (Auto) 0.0 x10^3/uL (0.0-0.2) Segmented Neutrophils % 68 % (35-66) Band Neutrophils % 24 % (0-9) Lymphocytes % 5 % (24-48) Metamyelocytes % 3 % (0-0) Toxic Granulation Slight Toxic Vacuolation Mod Platelet Estimate Decreased (ADEQUATE) Erythrocyte Sedimentation Rate 11 (0-15) Prothrombin Time 13.4 SEC (11.7-14.0) Prothromb Time International Ratio 1.1 (0.8-1.1) Activated Partial Thromboplast Time 38 SEC (24-38) Sodium Level 128 mmol/L (136-145) Potassium Level 3.7 mmol/L (3.5-5.1) Chloride Level 91 mmol/L (98-107) Carbon Dioxide Level 20 mmol/L (21-32) Anion Gap 17 (6-14) Blood Urea Nitrogen 45 mg/dL (8-26) Creatinine 3.9 mg/dL (0.7-1.3) Estimated GFR (Cockcroft-Gault) 16.3 BUN/Creatinine Ratio 12 (6-20) Glucose Level 94 mg/dL (70-99) Lactic Acid Level 5.3 mmol/L (0.4-2.0) Calcium Level 7.6 mg/dL (8.5-10.1) Magnesium Level 1.3 mg/dL (1.8-2.4) Total Bilirubin 4.7 mg/dL (0.2-1.0) Aspartate Amino Transf (AST/SGOT) 233 U/L (15-37) Alanine Aminotransferase (ALT/SGPT) 127 U/L (16-63) Alkaline Phosphatase 215 U/L (46-116) Ammonia < 10 mcmol/L (11-34) Lactate Dehydrogenase 1240 U/L (85-227) Creatine Kinase 284 U/L (39-308) Creatine Kinase MB (Mass) 1.7 ng/mL (0.0-3.6) Creatine Kinase MB Relative Index 0.6 % (0-4) Troponin I Quantitative 0.111 ng/mL (0.000-0.055) C-Reactive Protein, Quantitative 242.9 mg/L (0-3.3) Total Protein 6.0 g/dL (6.4-8.2) Albumin 2.5 g/dL (3.4-5.0) Albumin/Globulin Ratio 0.7 (1.0-1.7) Lipase 425 U/L (73-393) Ethyl Alcohol Level < 10 mg/dL (0-10) Heterophil Agglutinins Negative (NEGATIVE) Influenza Type A Antigen Negative (NEGATIVE) Influenza Type B Antigen Negative (NEGATIVE) Group A Streptococcus Rapid Negative (NEGATIVE) Urine Collection Type Unknown Urine Color Patrizia Urine Clarity Cloudy Urine pH 5.5 Urine Specific Wendel 1.020 Urine Protein 100 mg/dL (NEG-TRACE) Urine Glucose (UA) Negative mg/dL (NEG) Urine Ketones (Stick) Negative mg/dL (NEG) Urine Blood Small (NEG) Urine Nitrite Negative (NEG) Urine Bilirubin Moderate (NEG) Urine Urobilinogen Dipstick 1.0 mg/dL (0.2 mg/dL) Urine Leukocyte Esterase Negative (NEG) Urine RBC Occ /HPF (0-2) Urine WBC Occ /HPF (0-4) Urine Squamous Epithelial Cells Occ /LPF Urine Transitional Epithelial Cells Occ /LPF Urine Amorphous Sediment Present /HPF Urine Bacteria 0 /HPF (0-FEW) Urine Opiates Screen Neg (NEG) Urine Methadone Screen Neg (NEG) Urine Barbiturates Neg (NEG) Urine Phencyclidine Screen Neg (NEG) Urine Amphetamine/Methamphetamine Neg (NEG) Urine Benzodiazepines Screen Neg (NEG) Urine Cocaine Screen Neg (NEG) Urine Cannabinoids Screen Neg (NEG) Urine Ethyl Alcohol Neg (NEG) Test 08/26/18 00:15 08/26/18 03:15 08/26/18 09:45 08/26/18 12:15 Lactic Acid Level 5.1 mmol/L (0.4-2.0) 4.9 mmol/L (0.4-2.0) 4.5 mmol/L (0.4-2.0) 5.0 mmol/L (0.4-2.0) Troponin I Quantitative 0.160 ng/mL (0.000-0.055) 0.165 ng/mL (0.000-0.055) White Blood Count 6.5 x10^3/uL (4.0-11.0) 7.5 x10^3/uL (4.0-11.0) Red Blood Count 4.54 x10^6/uL (4.30-5.70) 4.39 x10^6/uL (4.30-5.70) Hemoglobin 13.3 g/dL (13.0-17.5) 12.7 g/dL (13.0-17.5) Hematocrit 39.3 % (39.0-53.0) 37.9 % (39.0-53.0) Mean Corpuscular Volume 86 fL (79-100) 86 fL (79-100) Mean Corpuscular Hemoglobin 29 pg (25-35) 29 pg (25-35) Mean Corpuscular Hemoglobin Concent 34 g/dL (31-37) 33 g/dL (31-37) Red Cell Distribution Width 15.9 % (11.5-14.5) 16.4 % (11.5-14.5) Platelet Count 17 x10^3/uL (140-400) 15 x10^3/uL (140-400) Neutrophils (%) (Auto) 98 % (31-73) 97 % (31-73) Lymphocytes (%) (Auto) 2 % (24-48) 2 % (24-48) Monocytes (%) (Auto) 1 % (0-9) 1 % (0-9) Eosinophils (%) (Auto) 0 % (0-3) 0 % (0-3) Basophils (%) (Auto) 0 % (0-3) 0 % (0-3) Neutrophils # (Auto) 6.4 x10^3uL (1.8-7.7) 7.2 x10^3uL (1.8-7.7) Lymphocytes # (Auto) 0.1 x10^3/uL (1.0-4.8) 0.2 x10^3/uL (1.0-4.8) Monocytes # (Auto) 0.0 x10^3/uL (0.0-1.1) 0.0 x10^3/uL (0.0-1.1) Eosinophils # (Auto) 0.0 x10^3/uL (0.0-0.7) 0.0 x10^3/uL (0.0-0.7) Basophils # (Auto) 0.0 x10^3/uL (0.0-0.2) 0.0 x10^3/uL (0.0-0.2) Absolute Reticulocyte Count 0.030 x10^6/uL (0.020-0.120) Percent Reticulocyte Count 0.7 % (0.5-2.3) Immature Reticulocyte Fraction 0.35 (0.20-0.60) Haptoglobin 94 mg/dL (34-200) Prothrombin Time 14.2 SEC (11.7-14.0) 14.3 SEC (11.7-14.0) Prothromb Time International Ratio 1.1 (0.8-1.1) 1.1 (0.8-1.1) Activated Partial Thromboplast Time 44 SEC (24-38) 47 SEC (24-38) Fibrinogen 319 mg/dL (200-440) 340 mg/dL (200-440) D-Dimer ([place]) 12.89 ug/mlFEU (0.00-0.50) 0.85 ug/mlFEU (0.00-0.50) Sodium Level 129 mmol/L (136-145) 130 mmol/L (136-145) 129 mmol/L (136-145) Potassium Level 3.5 mmol/L (3.5-5.1) 3.6 mmol/L (3.5-5.1) 3.7 mmol/L (3.5-5.1) Chloride Level 94 mmol/L (98-107) 94 mmol/L (98-107) 94 mmol/L (98-107) Carbon Dioxide Level 16 mmol/L (21-32) 16 mmol/L (21-32) 13 mmol/L (21-32) Anion Gap 19 (6-14) 20 (6-14) 22 (6-14) Blood Urea Nitrogen 53 mg/dL (8-26) 54 mg/dL (8-26) 64 mg/dL (8-26) Creatinine 4.7 mg/dL (0.7-1.3) 4.7 mg/dL (0.7-1.3) 5.8 mg/dL (0.7-1.3) Estimated GFR (Cockcroft-Gault) 13.1 13.1 10.3 BUN/Creatinine Ratio 11 (6-20) 11 (6-20) 11 (6-20) Glucose Level 80 mg/dL (70-99) 77 mg/dL (70-99) 84 mg/dL (70-99) Calcium Level 6.8 mg/dL (8.5-10.1) 7.2 mg/dL (8.5-10.1) 6.6 mg/dL (8.5-10.1) Total Bilirubin 4.7 mg/dL (0.2-1.0) 4.6 mg/dL (0.2-1.0) 5.2 mg/dL (0.2-1.0) Direct Bilirubin 4.2 mg/dL (0.0-0.2) Aspartate Amino Transf (AST/SGOT) 288 U/L (15-37) 313 U/L (15-37) 381 U/L (15-37) Alanine Aminotransferase (ALT/SGPT) 127 U/L (16-63) 135 U/L (16-63) 140 U/L (16-63) Alkaline Phosphatase 200 U/L (46-116) 197 U/L (46-116) 219 U/L (46-116) Total Protein 5.3 g/dL (6.4-8.2) 5.3 g/dL (6.4-8.2) 4.9 g/dL (6.4-8.2) Albumin 2.1 g/dL (3.4-5.0) 2.2 g/dL (3.4-5.0) 2.0 g/dL (3.4-5.0) Albumin/Globulin Ratio 0.7 (1.0-1.7) 0.7 (1.0-1.7) 0.7 (1.0-1.7) Lipase 516 U/L (73-393) Procalcitonin 19.50 ng/mL (0.00-0.10) Hepatitis A IgM Antibody Nonreactive (Nonreactive) Hepatitis B Surface Antigen Nonreactive (Nonreactive) Hepatitis B Surface Antibody Reactive Hepatitis B Core IgM Antibody Nonreactive (Nonreactive) Hepatitis C IgG Antibody Nonreactive (Nonreactive) Ionized Calcium 0.85 mmol/L (1.13-1.32) Ammonia 13 mcmol/L (11-34) Creatine Kinase 326 U/L (39-308) Thyroid Stimulating Hormone (TSH) 1.364 uIU/mL (0.358-3.74) Test 08/27/18 04:05 08/27/18 04:25 08/27/18 09:20 08/27/18 09:22 White Blood Count 11.1 x10^3/uL (4.0-11.0) Red Blood Count 4.55 x10^6/uL (4.30-5.70) Hemoglobin 13.2 g/dL (13.0-17.5) Hematocrit 38.6 % (39.0-53.0) Mean Corpuscular Volume 85 fL (79-100) Mean Corpuscular Hemoglobin 29 pg (25-35) Mean Corpuscular Hemoglobin Concent 34 g/dL (31-37) Red Cell Distribution Width 16.2 % (11.5-14.5) Platelet Count 30 x10^3/uL (140-400) Neutrophils (%) (Auto) 94 % (31-73) Lymphocytes (%) (Auto) 1 % (24-48) Monocytes (%) (Auto) 5 % (0-9) Eosinophils (%) (Auto) 0 % (0-3) Basophils (%) (Auto) 0 % (0-3) Neutrophils # (Auto) 10.4 x10^3uL (1.8-7.7) Lymphocytes # (Auto) 0.2 x10^3/uL (1.0-4.8) Monocytes # (Auto) 0.5 x10^3/uL (0.0-1.1) Eosinophils # (Auto) 0.0 x10^3/uL (0.0-0.7) Basophils # (Auto) 0.0 x10^3/uL (0.0-0.2) Sodium Level 132 mmol/L (136-145) Potassium Level 4.0 mmol/L (3.5-5.1) Chloride Level 94 mmol/L (98-107) Carbon Dioxide Level 18 mmol/L (21-32) Anion Gap 20 (6-14) Blood Urea Nitrogen 59 mg/dL (8-26) Creatinine 5.5 mg/dL (0.7-1.3) Estimated GFR (Cockcroft-Gault) 10.9 BUN/Creatinine Ratio 11 (6-20) Glucose Level 93 mg/dL (70-99) Calcium Level 7.0 mg/dL (8.5-10.1) Magnesium Level 1.9 mg/dL (1.8-2.4) Total Bilirubin 5.3 mg/dL (0.2-1.0) Aspartate Amino Transf (AST/SGOT) 545 U/L (15-37) Alanine Aminotransferase (ALT/SGPT) 152 U/L (16-63) Alkaline Phosphatase 227 U/L (46-116) Total Protein 4.9 g/dL (6.4-8.2) Albumin 1.7 g/dL (3.4-5.0) Albumin/Globulin Ratio 0.5 (1.0-1.7) Stool Occult Blood Positive (NEG) O2 Saturation 92 % (92-99) Arterial Blood pH 7.37 (7.35-7.45) Arterial Blood pCO2 at Patient Temp 24 mmHg (35-46) Arterial Blood pO2 at Patient Temp 71 mmHg (75-108) Arterial Blood HCO3 14 mmol/L (21-28) Arterial Blood Base Excess -10 mmol/L (-3-3) FiO2 36 Laboratory Tests Test 08/27/18 04:05 08/27/18 04:25 08/27/18 09:20 08/27/18 09:22 White Blood Count 11.1 x10^3/uL (4.0-11.0) Red Blood Count 4.55 x10^6/uL (4.30-5.70) Hemoglobin 13.2 g/dL (13.0-17.5) Hematocrit 38.6 % (39.0-53.0) Mean Corpuscular Volume 85 fL (79-100) Mean Corpuscular Hemoglobin 29 pg (25-35) Mean Corpuscular Hemoglobin Concent 34 g/dL (31-37) Red Cell Distribution Width 16.2 % (11.5-14.5) Platelet Count 30 x10^3/uL (140-400) Neutrophils (%) (Auto) 94 % (31-73) Lymphocytes (%) (Auto) 1 % (24-48) Monocytes (%) (Auto) 5 % (0-9) Eosinophils (%) (Auto) 0 % (0-3) Basophils (%) (Auto) 0 % (0-3) Neutrophils # (Auto) 10.4 x10^3uL (1.8-7.7) Lymphocytes # (Auto) 0.2 x10^3/uL (1.0-4.8) Monocytes # (Auto) 0.5 x10^3/uL (0.0-1.1) Eosinophils # (Auto) 0.0 x10^3/uL (0.0-0.7) Basophils # (Auto) 0.0 x10^3/uL (0.0-0.2) Sodium Level 132 mmol/L (136-145) Potassium Level 4.0 mmol/L (3.5-5.1) Chloride Level 94 mmol/L (98-107) Carbon Dioxide Level 18 mmol/L (21-32) Anion Gap 20 (6-14) Blood Urea Nitrogen 59 mg/dL (8-26) Creatinine 5.5 mg/dL (0.7-1.3) Estimated GFR (Cockcroft-Gault) 10.9 BUN/Creatinine Ratio 11 (6-20) Glucose Level 93 mg/dL (70-99) Calcium Level 7.0 mg/dL (8.5-10.1) Magnesium Level 1.9 mg/dL (1.8-2.4) Total Bilirubin 5.3 mg/dL (0.2-1.0) Aspartate Amino Transf (AST/SGOT) 545 U/L (15-37) Alanine Aminotransferase (ALT/SGPT) 152 U/L (16-63) Alkaline Phosphatase 227 U/L (46-116) Total Protein 4.9 g/dL (6.4-8.2) Albumin 1.7 g/dL (3.4-5.0) Albumin/Globulin Ratio 0.5 (1.0-1.7) Stool Occult Blood Positive (NEG) O2 Saturation 92 % (92-99) Arterial Blood pH 7.37 (7.35-7.45) Arterial Blood pCO2 at Patient Temp 24 mmHg (35-46) Arterial Blood pO2 at Patient Temp 71 mmHg (75-108) Arterial Blood HCO3 14 mmol/L (21-28) Arterial Blood Base Excess -10 mmol/L (-3-3) FiO2 36 Microbiology 08/26/18 Blood Culture - Preliminary, Resulted NO GROWTH AFTER 1 DAY Heme positive stool noted. Vitals/I & O Vital Sign - Last 24 Hours 08/26/18 08/26/18 08/26/18 08/26/18 13:00 14:00 15:00 16:00 Pulse 90 93 100 Resp 23 25 25 B/P (MAP) 113/48 (69) 89/54 (66) Pulse Ox 96 96 96 O2 Delivery Room Air Room Air Room Air Nasal Cannula O2 Flow Rate 2.0 08/26/18 08/26/18 08/26/18 08/26/18 16:00 17:00 18:00 19:00 Temp 97.9 97.9 Pulse 101 110 112 116 Resp 27 28 30 42 B/P (MAP) 114/59 (77) 107/52 (70) 117/58 (77) 95/55 (68) Pulse Ox 98 97 99 96 O2 Delivery Room Air Room Air Room Air Nasal Cannula O2 Flow Rate 3.0 08/26/18 08/26/18 08/26/18 08/26/18 19:13 20:00 20:00 21:00 Temp 98.3 98.3 Pulse 107 111 Resp 36 37 B/P (MAP) 115/60 (78) 121/47 (71) Pulse Ox 96 93 95 O2 Delivery BiPAP/CPAP Nasal Cannula Nasal Cannula Nasal Cannula O2 Flow Rate 3.0 3.0 3.0 08/26/18 08/26/18 08/27/18 08/27/18 22:00 23:00 00:00 00:00 Temp 100.5 100.5 Pulse 110 102 110 Resp 39 34 47 B/P (MAP) 113/55 (74) 105/46 (65) 85/46 (59) Pulse Ox 95 91 94 O2 Delivery Room Air Room Air Bi-pap BiPAP/CPAP 08/27/18 08/27/18 08/27/18 08/27/18 01:00 02:00 03:00 04:00 Temp 103.4 100.7 97.9 103.4 100.7 97.9 Pulse 106 103 100 99 Resp 45 44 24 32 B/P (MAP) 112/50 (70) 93/43 (60) 121/62 (81) 109/68 (82) Pulse Ox 92 90 94 93 O2 Delivery Nasal Cannula Room Air Nasal Cannula Nasal Cannula O2 Flow Rate 3.0 3.0 3.0 08/27/18 08/27/18 08/27/18 08/27/18 04:00 05:00 06:00 07:00 Pulse 96 98 Resp 29 42 42 B/P (MAP) 108/53 (71) 117/62 (80) O2 Delivery Nasal Cannula Nasal Cannula Nasal Cannula Nasal Cannula O2 Flow Rate 3.0 3.0 3.0 3.0 08/27/18 08/27/18 08/27/18 08/27/18 08:00 08:00 09:00 10:00 Temp 97.9 97.9 Pulse 92 92 94 Resp 36 36 33 B/P (MAP) 68/48 (55) 106/74 (85) O2 Delivery Nasal Cannula Nasal Cannula Nasal Cannula Nasal Cannula O2 Flow Rate 3.0 3.0 3.0 3.0 08/27/18 11:00 Pulse 88 Resp 36 B/P (MAP) 121/80 (94) O2 Delivery Nasal Cannula O2 Flow Rate 3.0 Intake and Output 08/26/18 08/26/18 08/27/18 14:59 22:59 06:59 Intake Total 700 ml 300 ml 1580 ml Output Total 0 ml 50 ml Balance 700 ml 250 ml 1580 ml Problem List Problems Medical Problems: (1) Acute renal failure Status: Acute Assessment Tick-borne illness suspected. Platelets better. LFT's about the same, but no worse. Significance of occult blood in stool unclear in this setting. Plan of Care Note Continue as now. Follow labs, etc. Await pending serologies. KAVYA LEDESMA MD August 27, 2018 12:55
--- NOTE | 2018-08-27 14:48 | NUR ---
SS following for discharge planning. SS reviewed pt chart. Pt is from home and is currently requiring oxygen. No discharge needs noted at this time. SS will continue to follow for discharge planning.
--- NOTE | 2018-08-27 15:43 | NUR ---
1530: bladder scanned patient. 125 mL in bladder.
--- NOTE | 2018-08-27 17:01 | PDOC ---
PROGRESS NOTES Assessment Assessment Metabolic encephalopathy. Confusion. Fever. Cough. Septic shock. Lactic acidosis. Renal failure on dialysis. Thrombocytopenia. Hepatomegaly. Tick bite, Hx. Diarrhea. Elevated lipase. HTN. KIKI. Hemochromatosis Obesity. RECOMMENDATIONS/PLAN: Treat medical diseases. Neuroimaging study if has focalized sensory or motor deficits. OT/PT. EEG on 08/27/18: Encephalopathy. No seizure activity. HISTORY OF THE PRESENT ILLNESS: 52-y-old male patient with hemochromatosis, KIKI, and HTN presented to the hospital with fevers for about 1 week. He states he was more tired and fatigue. On Mother's Day he had a fever of 101. Next day, he saw his primary care physician and was tested for flu that was negative. He was instructed to take Ibuprofen alternating with Tylenol for the fever. He did that and Monday did not have a fever. On Monday he had a severe headache. He went to Urgent care in [place] and was given prednisone 20mg X 5 days at that time. He states that blood work was performed but does not know results. , he went to work with a mild headache and was tired and fatigued. night, he was found to have a fever of 104 and took ibuprofen. [facility]. He stated that about 3 weeks ago he developed rash on his left lower extremity that he thought was poison Lexie. For the hemochromatosis, he follows with Dr. Iverson at [facility] and has been undergoing phlebotomy. His last phlebotomy was in late June of 2018. He had increased MS changes and confusion on 08/25, so Neurology was requested for consultation on 08/26. Past Medical History KIKI Hemochromatosis HTN Cardiovascular: HTN Pulmonary: No pertinent hx GI: No pertinent hx Heme/Onc: Hemochromatosis Hepatobiliary: No pertinent hx Family History His father had with hemochromatosis, of inoperable brain tumor Social History Lives at home with and three sons. 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 He denies any etoh, drugs and smoking Allergies Coded Allergies: aspirin (Verified Allergy, Intermediate, 02/03/16) pentazocine (Verified Allergy, Intermediate, 02/03/16) MEDICATIONS: Refer to [facility] REVIEW OF SYSTEMS: Constitutional: Obese. Head: No traumatic brain or head injury. Skin: No edema, or rash. Ear: No infection. Eyes: No vision loss or color blindness. Nose: No bleeding or purulent discharges. Hearing: No hearing decrease. Neck: No injury. Cardiac: HTN. Pulmonary: No COPD. GI: No GI ulcer, GI bleeding. Urinary/genital: No dysuria, incontinence, urinary retention. Endocrinologic: No cousin face, craniofacial dysmorphism, polydactyly. Skeletomuscular: Generalized weakness. Neurological: see HP. Psychiatric: Denies drug use/abuse. Otherwise, not [id number] review of systems. PHYSICAL EXAMINATION: General appearance is in subacute distress. HEENT: Normocephalic and nontraumatic. Eyes, nose, ears, and throat are unremarkable. Neck is supple. No lymphadenopathy. No crepitus. Cardiovascular: S1, S2, regular rate and rhythm. Pulmonary: Clear to auscultation bilaterally. Abdomen: Bowel sounds are positive. Extremities: No rash, lesions, or edema. No restriction of range of motion NEUROLOGICAL EXAMINATION: Drowsiness. Not fully oriented to time, place and person. PERRL. EOMI. CN: no focal findings. Muscle tone: within normal. Muscle strength: 4+ DTR: 2 UE, 1-2 at knee. Plantar reflex: Flexor response bilaterally Gait: not examined in bed. Sensory exam: no abnormal findings. No cerebellar signs elicited. F-T-N test not performed due to drowsiness.. Objective Objective Vital Signs Date Time Temp Pulse Resp B/P (MAP) Pulse Ox O2 Delivery O2 Flow Rate FiO2 08/27/18 15:00 106 20 135/82 (99) 98 Nasal Cannula 3.0 08/27/18 13:00 98.5 98.5 Intake and Output 08/27/18 07:00 Intake Total 2830 ml Output Total 100 ml Balance 2730 ml Intake Oral 2580 ml IV Total 250 ml Output Urine Total 100 ml Vitals Signs Vitals VS - Last 72 Hours, by Label Date Time Temp Pulse Resp B/P (MAP) Pulse Ox O2 Delivery O2 Flow Rate FiO2 08/27/18 15:00 106 20 135/82 (99) 98 Nasal Cannula 3.0 08/27/18 14:00 102 28 132/78 (96) 99 Nasal Cannula 3.0 08/27/18 13:00 98.5 96 36 123/64 (83) 96 Nasal Cannula 3.0 98.5 08/27/18 12:00 84 36 123/64 (83) Nasal Cannula 3.0 08/27/18 12:00 Nasal Cannula 3.0 08/27/18 11:00 88 36 121/80 (94) 96 Nasal Cannula 3.0 08/27/18 10:00 94 33 97 Nasal Cannula 3.0 08/27/18 09:00 92 36 106/74 (85) 91 Nasal Cannula 3.0 08/27/18 08:00 Nasal Cannula 3.0 08/27/18 08:00 97.9 92 36 68/48 (55) Nasal Cannula 3.0 97.9 08/27/18 07:00 42 Nasal Cannula 3.0 08/27/18 06:00 98 42 117/62 (80) Nasal Cannula 3.0 08/27/18 05:00 96 29 108/53 (71) Nasal Cannula 3.0 08/27/18 04:00 Nasal Cannula 3.0 08/27/18 04:00 97.9 99 32 109/68 (82) 93 Nasal Cannula 3.0 97.9 08/27/18 03:00 100 24 121/62 (81) 94 Nasal Cannula 3.0 08/27/18 02:00 100.7 103 44 93/43 (60) 90 Room Air 100.7 08/27/18 01:00 103.4 106 45 112/50 (70) 92 Nasal Cannula 3.0 103.4 08/27/18 00:00 100.5 110 47 85/46 (59) 94 BiPAP/CPAP 100.5 08/27/18 00:00 Bi-pap 08/26/18 23:00 102 34 105/46 (65) 91 Room Air 08/26/18 22:00 110 39 113/55 (74) 95 Room Air 08/26/18 21:00 111 37 121/47 (71) 95 Nasal Cannula 3.0 08/26/18 20:00 98.3 107 36 115/60 (78) 93 Nasal Cannula 3.0 98.3 08/26/18 20:00 Nasal Cannula 3.0 08/26/18 19:13 96 BiPAP/CPAP 08/26/18 19:00 116 42 95/55 (68) 96 Nasal Cannula 3.0 08/26/18 18:00 112 30 117/58 (77) 99 Room Air 08/26/18 17:00 110 28 107/52 (70) 97 Room Air 08/26/18 16:00 97.9 101 27 114/59 (77) 98 Room Air 97.9 08/26/18 16:00 Nasal Cannula 2.0 08/26/18 15:00 100 25 89/54 (66) 96 Room Air 08/26/18 14:00 93 25 113/48 (69) 96 Room Air 08/26/18 13:00 90 23 96 Room Air 08/26/18 12:00 98.2 92 25 131/70 (90) 96 Room Air 98.2 08/26/18 11:00 87 21 116/72 (87) 93 Room Air 08/26/18 10:00 95 17 116/69 (85) 95 Room Air 08/26/18 09:00 84 17 131/70 (90) 94 Room Air 08/26/18 08:00 99.0 86 18 125/68 (87) 94 Room Air 99.0 08/26/18 07:00 85 17 122/70 (87) 94 Room Air Laboratory Laboratory Laboratory Tests Test 08/27/18 04:05 08/27/18 04:25 08/27/18 09:20 08/27/18 09:22 White Blood Count 11.1 x10^3/uL (4.0-11.0) Red Blood Count 4.55 x10^6/uL (4.30-5.70) Hemoglobin 13.2 g/dL (13.0-17.5) Hematocrit 38.6 % (39.0-53.0) Mean Corpuscular Volume 85 fL (79-100) Mean Corpuscular Hemoglobin 29 pg (25-35) Mean Corpuscular Hemoglobin Concent 34 g/dL (31-37) Red Cell Distribution Width 16.2 % (11.5-14.5) Platelet Count 30 x10^3/uL (140-400) Neutrophils (%) (Auto) 94 % (31-73) Lymphocytes (%) (Auto) 1 % (24-48) Monocytes (%) (Auto) 5 % (0-9) Eosinophils (%) (Auto) 0 % (0-3) Basophils (%) (Auto) 0 % (0-3) Neutrophils # (Auto) 10.4 x10^3uL (1.8-7.7) Lymphocytes # (Auto) 0.2 x10^3/uL (1.0-4.8) Monocytes # (Auto) 0.5 x10^3/uL (0.0-1.1) Eosinophils # (Auto) 0.0 x10^3/uL (0.0-0.7) Basophils # (Auto) 0.0 x10^3/uL (0.0-0.2) Sodium Level 132 mmol/L (136-145) Potassium Level 4.0 mmol/L (3.5-5.1) Chloride Level 94 mmol/L (98-107) Carbon Dioxide Level 18 mmol/L (21-32) Anion Gap 20 (6-14) Blood Urea Nitrogen 59 mg/dL (8-26) Creatinine 5.5 mg/dL (0.7-1.3) Estimated GFR (Cockcroft-Gault) 10.9 BUN/Creatinine Ratio 11 (6-20) Glucose Level 93 mg/dL (70-99) Calcium Level 7.0 mg/dL (8.5-10.1) Magnesium Level 1.9 mg/dL (1.8-2.4) Total Bilirubin 5.3 mg/dL (0.2-1.0) Aspartate Amino Transf (AST/SGOT) 545 U/L (15-37) Alanine Aminotransferase (ALT/SGPT) 152 U/L (16-63) Alkaline Phosphatase 227 U/L (46-116) Total Protein 4.9 g/dL (6.4-8.2) Albumin 1.7 g/dL (3.4-5.0) Albumin/Globulin Ratio 0.5 (1.0-1.7) Stool Occult Blood Positive (NEG) O2 Saturation 92 % (92-99) Arterial Blood pH 7.37 (7.35-7.45) Arterial Blood pCO2 at Patient Temp 24 mmHg (35-46) Arterial Blood pO2 at Patient Temp 71 mmHg (75-108) Arterial Blood HCO3 14 mmol/L (21-28) Arterial Blood Base Excess -10 mmol/L (-3-3) FiO2 36 Microbiology 5/19/19 Blood Culture - Preliminary, Resulted NO GROWTH AFTER 1 DAY Medication Medications Current Medications Acetaminophen (Tylenol) 325 mg STK-MED ONCE PO ; Start 08/27/18 at 00:43; Stop 08/27/18 at 00:44; Status DC Albumin Human 200 ml @ 200 mls/hr 1X PRN PRN IV Hypotension; Start 08/27/18 at 11:30; Stop 08/27/18 at 17:29 Daptomycin 610 mg/ Sodium Chloride 50 ml @ 100 mls/hr QODAY IV Last administered on 08/27/18at 08:59; Start 08/27/18 at 09:00 Famotidine (Pepcid) 20 mg Q48H PO ; Start 08/29/18 at 09:00 Info (PHARMACY MONITORING -- do not chart) 1 each PRN DAILY PRN MC SEE COMMENTS; Start 08/27/18 at 11:30; Status UNV Info (PHARMACY MONITORING -- do not chart) 1 each PRN DAILY PRN MC SEE COMMENTS; Start 08/27/18 at 11:30; Status UNV Lactobacillus Rhamnosus (Culturelle) 1 cap BID PO Last administered on at 08:14; Start 08/26/18 at 21:00 Sodium Chloride 1,000 ml @ 400 mls/hr Q2H30M PRN IV PATENCY; Start 08/27/18 at 11:28; Stop 08/27/18 at 23:27 Sodium Chloride 1,000 ml @ 1,000 mls/hr 1X ONCE IV Last administered on 08/27/18at 11:05; Start 08/27/18 at 10:30; Stop 08/27/18 at 11:29; Status DC Sodium Chloride 1,000 ml @ 1,000 mls/hr Q1H PRN IV hypotension; Start 08/27/18 at 11:28; Stop 08/27/18 at 17:27 Sodium Chloride (Normal Saline Flush) 10 ml 1X PRN PRN IV AP catheter pack; Start 08/27/18 at 11:30; Stop 08/28/18 at 11:29 Sodium Chloride (Normal Saline Flush) 10 ml 1X PRN PRN IV STEEL PLATE CAULKER catheter pack; Start 08/27/18 at 11:30; Stop 08/28/18 at 11:29 Comment Review of Relevant I have reviewed the following items gera (where applicable) has been applied. SOFIA ROBERSON MD August 27, 2018 17:01
--- NOTE | 2018-08-27 21:10 | NUR ---
Patient's temp 102.0 F axillary and he continues to trigger + Severe Sepsis; Dr Criselda Lujan paged. Dr Lujan retuned page, notified of temp, no Tylenol order, + Sepsis, last Lactic, reviewed antibiotics, and discussed IVF. Orders received for Tylenol 650MG PO or Rectal Supp [id number], do not repeat Lactic, and discuss IVF with Nephrology. See orders.
[2018-08-27] MEDS ORDERED: ACETAMINOPHEN 325 MG TABLET. PO PRN (21:15)
--- NOTE | 2018-08-27 21:20 | NUR ---
Patient has not voided since 0700 this morning, bladder scan done and only showed ~100CC of urine in patient's bladder. Will notify Dr Cespedes.
--- NOTE | 2018-08-27 21:20 | NUR ---
Paged Dr Cespedes, returned page, notified of minimal PO intake and no UO since 0700 this am, bladder scan done which showed only ~100CC of urine in patient's bladder, and patient now off Levophed/revuewed BPs. Per Dr Cespedes no new orders at this time, ok to bolus with NS if needed (already ordered).
[2018-08-27] MEDS: ACETAMINOPHEN 650 MG SUPP.RECT. PR PRN (21:25)
[2018-08-28] VITALS (23 sets, daily range): BP systolic 86–156; BP diastolic 50–84
[2018-08-28 06:06] LABS: BASO % 0 % (0-3); EOS % 0 % (0-3); HEMATOCRIT 30.2 % (39.0-53.0); HEMOGLOBIN 10.5 g/dL (13.0-17.5); LYMPH # 0.9 x10^3/uL (1.0-4.8); LYMPH % 7 % (24-48); MEAN CORPUSCULAR HEMOGLOBIN 29 pg (25-35); MEAN CORPUSCULAR HGB CONC 35 g/dL (31-37); MEAN CORPUSCULAR VOLUME 84 fL (79-100); MONO # 2.7 x10^3/uL (0.0-1.1); MONO % 20 % (0-9); NEUT # 9.9 x10^3uL (1.8-7.7); NEUT % 73 % (31-73); PLATELET COUNT 47 x10^3/uL (140-400); RED BLOOD COUNT 3.59 x10^6/uL (4.30-5.70); RED CELL DISTRIBUTION WIDTH 16.1 % (11.5-14.5); WHITE BLOOD COUNT 13.7 x10^3/uL (4.0-11.0)
[2018-08-28 06:21] LABS: CALCIUM 6.6 mg/dL (8.5-10.1); CREATININE 5.3 mg/dL (0.7-1.3); GFR 11.4; POTASSIUM 3.6 mmol/L (3.5-5.1)
--- NOTE | 2018-08-28 07:50 | PDOC ---
Infectious Disease Note Subjective Subjective pt is awake, on bipap ROS ROS no n/v/d/ cont fever Vital Sign Vital Signs Vital Signs Date Time Temp Pulse Resp B/P (MAP) Pulse Ox O2 Delivery O2 Flow Rate FiO2 08/28/18 06:00 96 44 116/60 (78) 96 BiPAP/CPAP 08/28/18 04:00 99.1 99.1 08/27/18 23:00 5.0 Physical Exam PHYSICAL EXAM GENERAL: awake on bipap HEENT: Pupils equally round, reactive. Normal conjunctivae. Oral cavity: Pharynx pink, dry. NECK: Supple. LUNGS: Clear to auscultation. HEART: S1 and S2. ABDOMEN: Obese, soft, nontender with bowel sounds present. EXTREMITIES: No gross edema or cyanosis. SKIN: Warm without rash. Left knee has several scabs/scarring. NEUROLOGIC: Alert and oriented, fluctuating MS Labs Lab Laboratory Tests Test 08/27/18 09:20 08/27/18 09:22 08/28/18 05:45 Stool Occult Blood Positive (NEG) O2 Saturation 92 % (92-99) Arterial Blood pH 7.37 (7.35-7.45) Arterial Blood pCO2 at Patient Temp 24 mmHg (35-46) Arterial Blood pO2 at Patient Temp 71 mmHg (75-108) Arterial Blood HCO3 14 mmol/L (21-28) Arterial Blood Base Excess -10 mmol/L (-3-3) FiO2 36 White Blood Count 13.7 x10^3/uL (4.0-11.0) Red Blood Count 3.59 x10^6/uL (4.30-5.70) Hemoglobin 10.5 g/dL (13.0-17.5) Hematocrit 30.2 % (39.0-53.0) Mean Corpuscular Volume 84 fL (79-100) Mean Corpuscular Hemoglobin 29 pg (25-35) Mean Corpuscular Hemoglobin Concent 35 g/dL (31-37) Red Cell Distribution Width 16.1 % (11.5-14.5) Platelet Count 47 x10^3/uL (140-400) Neutrophils (%) (Auto) 73 % (31-73) Lymphocytes (%) (Auto) 7 % (24-48) Monocytes (%) (Auto) 20 % (0-9) Eosinophils (%) (Auto) 0 % (0-3) Basophils (%) (Auto) 0 % (0-3) Neutrophils # (Auto) 9.9 x10^3uL (1.8-7.7) Lymphocytes # (Auto) 0.9 x10^3/uL (1.0-4.8) Monocytes # (Auto) 2.7 x10^3/uL (0.0-1.1) Eosinophils # (Auto) 0.0 x10^3/uL (0.0-0.7) Basophils # (Auto) 0.0 x10^3/uL (0.0-0.2) Sodium Level 132 mmol/L (136-145) Potassium Level 3.6 mmol/L (3.5-5.1) Chloride Level 94 mmol/L (98-107) Carbon Dioxide Level 25 mmol/L (21-32) Anion Gap 13 (6-14) Blood Urea Nitrogen 65 mg/dL (8-26) Creatinine 5.3 mg/dL (0.7-1.3) Estimated GFR (Cockcroft-Gault) 11.4 Glucose Level 135 mg/dL (70-99) Calcium Level 6.6 mg/dL (8.5-10.1) Phosphorus Level 5.0 mg/dL (2.6-4.7) Magnesium Level 2.0 mg/dL (1.8-2.4) Micro Microbiology 08/26/18 Blood Culture - Preliminary, Resulted NO GROWTH AFTER 1 DAY Objective Assessment 1. Tick-borne illness, suspected. with h/o tick bite 3 weeks ago at [place] 2. Lactic acidosis. 3. Fever. 4. Bandemia. 5. Acute hepatic injury. 6. Acute kidney injury. 7. Thrombocytopenia. 8. Hemochromatosis. 9. LLE dermatitis improving, ? poison [place],resolving with local treatment Plan Plan of Care Continue dapto and doxycycline. meropenem, renal dosing. Ehrlichiae Ab pending F/u BC Monitor lab values and for abx toxicities Monitor I & Os RMSF serologies D/w D/w nursing LP is option discussed but plt are very low, though improving ct chest, abd and pelvis KELBY PARKER MD August 28, 2018 07:50
[2018-08-28] MEDS: DOXYCYCLINE HYCLATE 100 MG in IV DEXTROSE 5% 100ML 100 ML IV SCH ×2 (08:01→21:34)
[2018-08-28] MEDS: LACTOBACILLUS RHAMNOSUS GG 1 CAPSULE. PO SCH ×2 (08:01→21:00)
[2018-08-28] MEDS: MEROPENEM 500 MG in IV NORMAL SALINE 50ML 50 ML IV SCH (08:01)
--- NOTE | 2018-08-28 08:29 | NUR ---
Patient's ABD is distended, complaining of ABD pain. No pain medication ordered. CT scan scheduled for 0900. Dr. Laboy paged for orders. Awaiting call back.
[2018-08-28 08:35] LABS: BASE EXCESS ABG 1 mmol/L (-3-3); HCO3 ABG 25 mmol/L (21-28); PCO2 ABG 37 mmHg (35-46); PO2 ABG 84 mmHg (75-108); SAT O2 ABG 95 % (92-99)
[2018-08-28] MEDS ORDERED: fentaNYL PF VIAL 100 MCG/2 ML VIAL IV ONE (08:45)
[2018-08-28 08:50] LABS: ALBUMIN 1.5 g/dL (3.4-5.0); DIRECT BILIRUBIN 5.9 mg/dL (0.0-0.2); TOTAL BILIRUBIN 6.2 mg/dL (0.2-1.0); TOTAL PROTEIN 4.5 g/dL (6.4-8.2)
--- NOTE | 2018-08-28 08:50 | NUR ---
Dr. Laboy returned page. Orders given for 25 mcg Fentanyl IV x 1 for pain, consult general surgery, collect UA. IR team at bedside to check central line site due to oozing. Addendum: 08/28/18 at 0852 by DAVIDE VALADEZ RN Dr. Avendano's office consulted due to increasing ABD pain, tenderness, and firmness.
--- NOTE | 2018-08-28 09:04 | PDOC ---
PULMONARY PROGRESS NOTES Subjective PT MORE CONFUSED TODAY OFF BIPAP FOR NOW AT BEDSIDE PT DID NOT SLEEP LAST POOJA Vitals Vital Signs Date Time Temp Pulse Resp B/P (MAP) Pulse Ox O2 Delivery O2 Flow Rate FiO2 08/28/18 08:02 95 BiPAP/CPAP 08/28/18 06:00 96 44 116/60 (78) 08/28/18 04:00 99.1 99.1 08/27/18 23:00 5.0 Comments UNABLE TO ROS PT CONFUSED General: Alert, Confused, Lethargic Lungs: Crackles Cardiovascular: S1, S2 Abdomen: Soft Extremities: No Edema Skin: Warm Labs Laboratory Tests Test 08/26/18 09:45 08/26/18 12:15 08/27/18 04:05 08/27/18 04:25 White Blood Count 7.5 x10^3/uL (4.0-11.0) 11.1 x10^3/uL (4.0-11.0) Red Blood Count 4.39 x10^6/uL (4.30-5.70) 4.55 x10^6/uL (4.30-5.70) Hemoglobin 12.7 g/dL (13.0-17.5) 13.2 g/dL (13.0-17.5) Hematocrit 37.9 % (39.0-53.0) 38.6 % (39.0-53.0) Mean Corpuscular Volume 86 fL (79-100) 85 fL (79-100) Mean Corpuscular Hemoglobin 29 pg (25-35) 29 pg (25-35) Mean Corpuscular Hemoglobin Concent 33 g/dL (31-37) 34 g/dL (31-37) Red Cell Distribution Width 16.4 % (11.5-14.5) 16.2 % (11.5-14.5) Platelet Count 15 x10^3/uL (140-400) 30 x10^3/uL (140-400) Neutrophils (%) (Auto) 97 % (31-73) 94 % (31-73) Lymphocytes (%) (Auto) 2 % (24-48) 1 % (24-48) Monocytes (%) (Auto) 1 % (0-9) 5 % (0-9) Eosinophils (%) (Auto) 0 % (0-3) 0 % (0-3) Basophils (%) (Auto) 0 % (0-3) 0 % (0-3) Neutrophils # (Auto) 7.2 x10^3uL (1.8-7.7) 10.4 x10^3uL (1.8-7.7) Lymphocytes # (Auto) 0.2 x10^3/uL (1.0-4.8) 0.2 x10^3/uL (1.0-4.8) Monocytes # (Auto) 0.0 x10^3/uL (0.0-1.1) 0.5 x10^3/uL (0.0-1.1) Eosinophils # (Auto) 0.0 x10^3/uL (0.0-0.7) 0.0 x10^3/uL (0.0-0.7) Basophils # (Auto) 0.0 x10^3/uL (0.0-0.2) 0.0 x10^3/uL (0.0-0.2) Prothrombin Time 14.3 SEC (11.7-14.0) Prothromb Time International Ratio 1.1 (0.8-1.1) Activated Partial Thromboplast Time 47 SEC (24-38) Fibrinogen 340 mg/dL (200-440) D-Dimer ([place]) 0.85 ug/mlFEU (0.00-0.50) Sodium Level 130 mmol/L (136-145) 129 mmol/L (136-145) 132 mmol/L (136-145) Potassium Level 3.6 mmol/L (3.5-5.1) 3.7 mmol/L (3.5-5.1) 4.0 mmol/L (3.5-5.1) Chloride Level 94 mmol/L (98-107) 94 mmol/L (98-107) 94 mmol/L (98-107) Carbon Dioxide Level 16 mmol/L (21-32) 13 mmol/L (21-32) 18 mmol/L (21-32) Anion Gap 20 (6-14) 22 (6-14) 20 (6-14) Blood Urea Nitrogen 54 mg/dL (8-26) 64 mg/dL (8-26) 59 mg/dL (8-26) Creatinine 4.7 mg/dL (0.7-1.3) 5.8 mg/dL (0.7-1.3) 5.5 mg/dL (0.7-1.3) Estimated GFR (Cockcroft-Gault) 13.1 10.3 10.9 BUN/Creatinine Ratio 11 (6-20) 11 (6-20) 11 (6-20) Glucose Level 77 mg/dL (70-99) 84 mg/dL (70-99) 93 mg/dL (70-99) Lactic Acid Level 4.5 mmol/L (0.4-2.0) 5.0 mmol/L (0.4-2.0) Calcium Level 7.2 mg/dL (8.5-10.1) 6.6 mg/dL (8.5-10.1) 7.0 mg/dL (8.5-10.1) Ionized Calcium 0.85 mmol/L (1.13-1.32) Total Bilirubin 4.6 mg/dL (0.2-1.0) 5.2 mg/dL (0.2-1.0) 5.3 mg/dL (0.2-1.0) Aspartate Amino Transf (AST/SGOT) 313 U/L (15-37) 381 U/L (15-37) 545 U/L (15-37) Alanine Aminotransferase (ALT/SGPT) 135 U/L (16-63) 140 U/L (16-63) 152 U/L (16-63) Alkaline Phosphatase 197 U/L (46-116) 219 U/L (46-116) 227 U/L (46-116) Ammonia 13 mcmol/L (11-34) Total Protein 5.3 g/dL (6.4-8.2) 4.9 g/dL (6.4-8.2) 4.9 g/dL (6.4-8.2) Albumin 2.2 g/dL (3.4-5.0) 2.0 g/dL (3.4-5.0) 1.7 g/dL (3.4-5.0) Albumin/Globulin Ratio 0.7 (1.0-1.7) 0.7 (1.0-1.7) 0.5 (1.0-1.7) Creatine Kinase 326 U/L (39-308) Thyroid Stimulating Hormone (TSH) 1.364 uIU/mL (0.358-3.74) Lyme Disease IgG/IgM Antibodies <0.91 ISR (0.00-0.90) Magnesium Level 1.9 mg/dL (1.8-2.4) Test 08/27/18 09:20 08/27/18 09:22 08/28/18 05:45 Stool Occult Blood Positive (NEG) O2 Saturation 92 % (92-99) Arterial Blood pH 7.37 (7.35-7.45) Arterial Blood pCO2 at Patient Temp 24 mmHg (35-46) Arterial Blood pO2 at Patient Temp 71 mmHg (75-108) Arterial Blood HCO3 14 mmol/L (21-28) Arterial Blood Base Excess -10 mmol/L (-3-3) FiO2 36 White Blood Count 13.7 x10^3/uL (4.0-11.0) Red Blood Count 3.59 x10^6/uL (4.30-5.70) Hemoglobin 10.5 g/dL (13.0-17.5) Hematocrit 30.2 % (39.0-53.0) Mean Corpuscular Volume 84 fL (79-100) Mean Corpuscular Hemoglobin 29 pg (25-35) Mean Corpuscular Hemoglobin Concent 35 g/dL (31-37) Red Cell Distribution Width 16.1 % (11.5-14.5) Platelet Count 47 x10^3/uL (140-400) Neutrophils (%) (Auto) 73 % (31-73) Lymphocytes (%) (Auto) 7 % (24-48) Monocytes (%) (Auto) 20 % (0-9) Eosinophils (%) (Auto) 0 % (0-3) Basophils (%) (Auto) 0 % (0-3) Neutrophils # (Auto) 9.9 x10^3uL (1.8-7.7) Lymphocytes # (Auto) 0.9 x10^3/uL (1.0-4.8) Monocytes # (Auto) 2.7 x10^3/uL (0.0-1.1) Eosinophils # (Auto) 0.0 x10^3/uL (0.0-0.7) Basophils # (Auto) 0.0 x10^3/uL (0.0-0.2) Sodium Level 132 mmol/L (136-145) Potassium Level 3.6 mmol/L (3.5-5.1) Chloride Level 94 mmol/L (98-107) Carbon Dioxide Level 25 mmol/L (21-32) Anion Gap 13 (6-14) Blood Urea Nitrogen 65 mg/dL (8-26) Creatinine 5.3 mg/dL (0.7-1.3) Estimated GFR (Cockcroft-Gault) 11.4 Glucose Level 135 mg/dL (70-99) Calcium Level 6.6 mg/dL (8.5-10.1) Phosphorus Level 5.0 mg/dL (2.6-4.7) Magnesium Level 2.0 mg/dL (1.8-2.4) Total Bilirubin 6.2 mg/dL (0.2-1.0) Direct Bilirubin 5.9 mg/dL (0.0-0.2) Aspartate Amino Transf (AST/SGOT) 574 U/L (15-37) Alanine Aminotransferase (ALT/SGPT) 133 U/L (16-63) Alkaline Phosphatase 271 U/L (46-116) Total Protein 4.5 g/dL (6.4-8.2) Albumin 1.5 g/dL (3.4-5.0) Laboratory Tests Test 08/27/18 09:20 08/27/18 09:22 08/28/18 05:45 Stool Occult Blood Positive (NEG) O2 Saturation 92 % (92-99) Arterial Blood pH 7.37 (7.35-7.45) Arterial Blood pCO2 at Patient Temp 24 mmHg (35-46) Arterial Blood pO2 at Patient Temp 71 mmHg (75-108) Arterial Blood HCO3 14 mmol/L (21-28) Arterial Blood Base Excess -10 mmol/L (-3-3) FiO2 36 White Blood Count 13.7 x10^3/uL (4.0-11.0) Red Blood Count 3.59 x10^6/uL (4.30-5.70) Hemoglobin 10.5 g/dL (13.0-17.5) Hematocrit 30.2 % (39.0-53.0) Mean Corpuscular Volume 84 fL (79-100) Mean Corpuscular Hemoglobin 29 pg (25-35) Mean Corpuscular Hemoglobin Concent 35 g/dL (31-37) Red Cell Distribution Width 16.1 % (11.5-14.5) Platelet Count 47 x10^3/uL (140-400) Neutrophils (%) (Auto) 73 % (31-73) Lymphocytes (%) (Auto) 7 % (24-48) Monocytes (%) (Auto) 20 % (0-9) Eosinophils (%) (Auto) 0 % (0-3) Basophils (%) (Auto) 0 % (0-3) Neutrophils # (Auto) 9.9 x10^3uL (1.8-7.7) Lymphocytes # (Auto) 0.9 x10^3/uL (1.0-4.8) Monocytes # (Auto) 2.7 x10^3/uL (0.0-1.1) Eosinophils # (Auto) 0.0 x10^3/uL (0.0-0.7) Basophils # (Auto) 0.0 x10^3/uL (0.0-0.2) Sodium Level 132 mmol/L (136-145) Potassium Level 3.6 mmol/L (3.5-5.1) Chloride Level 94 mmol/L (98-107) Carbon Dioxide Level 25 mmol/L (21-32) Anion Gap 13 (6-14) Blood Urea Nitrogen 65 mg/dL (8-26) Creatinine 5.3 mg/dL (0.7-1.3) Estimated GFR (Cockcroft-Gault) 11.4 Glucose Level 135 mg/dL (70-99) Calcium Level 6.6 mg/dL (8.5-10.1) Phosphorus Level 5.0 mg/dL (2.6-4.7) Magnesium Level 2.0 mg/dL (1.8-2.4) Total Bilirubin 6.2 mg/dL (0.2-1.0) Direct Bilirubin 5.9 mg/dL (0.0-0.2) Aspartate Amino Transf (AST/SGOT) 574 U/L (15-37) Alanine Aminotransferase (ALT/SGPT) 133 U/L (16-63) Alkaline Phosphatase 271 U/L (46-116) Total Protein 4.5 g/dL (6.4-8.2) Albumin 1.5 g/dL (3.4-5.0) Medications Active Scripts Medications Dose Route/Sig Max Daily Dose Days Date Category Prednisone 20 Mg Tablet 1 Tab PO DAILY 08/26/18 Reported Hydrochlorothiazide Tablet (Hydrochlorothiazide) 12.5 Mg Tablet 12.5 Mg PO DAILY 08/26/18 Reported Shilpi Allergy (Fexofenadine Hcl) 180 Mg Tablet 1 Tab PO DAILY 08/26/18 Reported Potassium Chloride 20 Meq Tablet.er 20 Meq PO DAILY 08/24/18 Rx Orphenadrine Citrate 100 Mg Tablet.er 100 Mg PO Q12HR 02/03/16 Rx Anaprox Ds (Naproxen Sodium) 550 Mg Tablet 550 Mg PO Q12HR 02/03/16 Rx Impression . IMPRESSION: 1. Acute hypoxemic respiratory failure, multifactorial, suspect acute lung injury from recent infection. 2. Suspect tick-borne illness. 3. Fever. 4. Lactic acidosis. 5. Acute renal failure. 6. Acute hepatic injury. 7. Thrombocytopenia. 8. Hemochromatosis. 9. ACUTE TOXIC MET ENCEPH POA Plan . D/W AND DR PARKER POSSIBLE LP ONCE PLATELETS RISE HALDOL PRN D/W RN PRN BIPAP TUBE FEEDING IF NOT EATING ANTI BX PER ID ABG AND LABS NOTED SEROLOGY PENDING CCT 25 MIN ANISH DENNIS MD August 28, 2018 09:04
--- NOTE | 2018-08-28 09:18 | PDOC ---
PROGRESS NOTES History of Present Illness History of Present Illness VTE Prophylaxis Ordered VTE Prophylaxis Devices: No VTE Pharmacological Prophylaxi: No Assessment/Plan Assessment/Plan IMPRESSION: 1. 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 severe thrombocytopenia 3. severe sepsis 4. recent tick bite 5. Altered mental status, encephalopathy, acute 6. morbid obesity 7. No acute abdominal or pelvic abnormality.BY CT 8. Minimal fatty infiltration of the liver. 9. Mild atelectasis in the bilateral lower lobes. 10. Acute renal failure 11. Mild elevation troponin i, 12. transaminitis 13. diarrhea 14. lactic acidosis 15. hx mild hypertension 16 Moderate atelectasis/consolidation posteriorly in both lower lobes. 17.Gastric distention. 18. Mild nonspecific streaky inflammation in the lower retroperitoneum and pelvis. plan blood cult iv antibiotics, emperic including doxycycline ID CONSULT nephrology consult neurology consult HEME CONSULT ICU BED PRN IV PRESSORS Ehrlichiosis antibody serology iv fluid support cardiology consult ECHO GI CONSULT ABD SONO reviewed Acute hepatitis panel stool enteric pathogens sepsis protocol lyme serology right internal jugular triple-lumen central venous catheter placed IJ 08/27 ct abd/ chest/ pelvis today reviewed 43 min cc time Vitals Vitals Vital Signs Date Time Temp Pulse Resp B/P (MAP) Pulse Ox O2 Delivery O2 Flow Rate FiO2 08/28/18 08:02 95 BiPAP/CPAP 08/28/18 06:00 96 44 116/60 (78) 08/28/18 04:00 99.1 99.1 08/27/18 23:00 5.0 Physical Exam Physical Exam GENERAL: awake on bipap HEENT: Pupils equally round, reactive. Normal conjunctivae. Oral cavity: Pharynx pink, dry. NECK: Supple. LUNGS: Clear to auscultation. HEART: S1 and S2. ABDOMEN: Obese, soft, nontender with bowel sounds present. EXTREMITIES: No gross edema or cyanosis. SKIN: Warm without rash. Left knee has several scabs/scarring. NEUROLOGIC: Alert and oriented, fluctuating MS General: Alert, Oriented X3, Cooperative, No acute distress, mild distress Heart: Regular rate, No murmurs Lungs: Crackles Abdomen: Soft Extremities: No clubbing, No cyanosis, No edema Skin: No significant lesion, Other (healing rash and excoriations on Left lower extremity. No obvious petechiae) Labs LABS SPEC #: [id number] ADRIANNE: 08/26/18 STATUS: RES REQ #: [id number] RECD: 08/26/[address]: KAVYA CARPENTER DO SOURCE: BLOOD ENTR: 08/25/[address]: UNKNOWN PCP NAME [facility]: ORDERED: BCULT ----- Procedure Result BLOOD CULTURE Preliminary NO GROWTH AFTER 2 DAYS SPEC #: [id number] ADRIANNE: 08/25/18 STATUS: COMP REQ #: [id number] RECD: 08/25/[address]: KAVYA CARPENTER DO SOURCE: THROAT ENTR: 08/26/[address]: UNKNOWN PCP NAME [facility]: ORDERED: THROAT CULTURE Procedure Result THROAT CULTURE Final Final report THROAT CULT RESULT 1 Final Comment Routine respiratory lizz Performed at: DA - [facility] [address], [place], [place] [id number] Project Buyer: CANDIDA Ramírez MD, Phone: [phone] REASON: fever PROCEDURE: CT CHEST ABDOMEN PELVIS WO CT of the chest, abdomen and pelvis without contrast, 08/28/2018: HISTORY: Abdominal pain and fever Multidetector CT imaging was performed. No IV or oral contrast was administered as requested. The study is compromised by the lack of contrast enhancement, patient motion and artifacts arising from the patient's arms. Right jugular central venous catheters extend into the superior vena cava near the atrial caval junction. The thoracic aorta is of normal caliber. The heart size is normal. No mediastinal adenopathy is seen. There is moderate atelectasis/consolidation posteriorly in both lower lobes. There is a suggestion of a small amount of pleural fluid in the posterior gutters. No large pleural effusion is seen. The unopacified liver is unremarkable. The gallbladder is not visualized and is apparently contracted. The pancreas is unremarkable. The spleen is of normal size. The unopacified kidneys show no abnormality. The abdominal aorta is of normal caliber. Multiple small retroperitoneal lymph nodes are seen without evidence of pathologic enlargement. The stomach is distended with fluid and gas. Gas is present in large and small bowel in a nonspecific pattern. No free air is present in the abdomen or pelvis. There is mild streaky increased density in the lower retroperitoneal and paracolic fat in the pelvis compatible with nonspecific inflammation. No significant volume of free fluid is evident in the abdomen. Right inguinal ring is dilated and contains a small amount of fluid. No bowel herniation is evident. IMPRESSION: 1. Moderate atelectasis/consolidation posteriorly in both lower lobes. 2. Gastric distention. 3. Mild nonspecific streaky inflammation in the lower retroperitoneum and pelvis. PQRS Compliance Statement: One or more of the following individualized dose reduction techniques were utilized for this examination: 1. Automated exposure control 2. Adjustment of the mA and/or kV according to patient size 3. Use of iterative reconstruction technique Electronically signed by: Jose Hudson MD (08/28/2018 10:21 AM) [facility] Laboratory Tests Test 08/27/18 09:20 08/27/18 09:22 08/28/18 05:45 Stool Occult Blood Positive (NEG) O2 Saturation 92 % (92-99) Arterial Blood pH 7.37 (7.35-7.45) Arterial Blood pCO2 at Patient Temp 24 mmHg (35-46) Arterial Blood pO2 at Patient Temp 71 mmHg (75-108) Arterial Blood HCO3 14 mmol/L (21-28) Arterial Blood Base Excess -10 mmol/L (-3-3) FiO2 36 White Blood Count 13.7 x10^3/uL (4.0-11.0) Red Blood Count 3.59 x10^6/uL (4.30-5.70) Hemoglobin 10.5 g/dL (13.0-17.5) Hematocrit 30.2 % (39.0-53.0) Mean Corpuscular Volume 84 fL (79-100) Mean Corpuscular Hemoglobin 29 pg (25-35) Mean Corpuscular Hemoglobin Concent 35 g/dL (31-37) Red Cell Distribution Width 16.1 % (11.5-14.5) Platelet Count 47 x10^3/uL (140-400) Neutrophils (%) (Auto) 73 % (31-73) Lymphocytes (%) (Auto) 7 % (24-48) Monocytes (%) (Auto) 20 % (0-9) Eosinophils (%) (Auto) 0 % (0-3) Basophils (%) (Auto) 0 % (0-3) Neutrophils # (Auto) 9.9 x10^3uL (1.8-7.7) Lymphocytes # (Auto) 0.9 x10^3/uL (1.0-4.8) Monocytes # (Auto) 2.7 x10^3/uL (0.0-1.1) Eosinophils # (Auto) 0.0 x10^3/uL (0.0-0.7) Basophils # (Auto) 0.0 x10^3/uL (0.0-0.2) Sodium Level 132 mmol/L (136-145) Potassium Level 3.6 mmol/L (3.5-5.1) Chloride Level 94 mmol/L (98-107) Carbon Dioxide Level 25 mmol/L (21-32) Anion Gap 13 (6-14) Blood Urea Nitrogen 65 mg/dL (8-26) Creatinine 5.3 mg/dL (0.7-1.3) Estimated GFR (Cockcroft-Gault) 11.4 Glucose Level 135 mg/dL (70-99) Calcium Level 6.6 mg/dL (8.5-10.1) Phosphorus Level 5.0 mg/dL (2.6-4.7) Magnesium Level 2.0 mg/dL (1.8-2.4) Total Bilirubin 6.2 mg/dL (0.2-1.0) Direct Bilirubin 5.9 mg/dL (0.0-0.2) Aspartate Amino Transf (AST/SGOT) 574 U/L (15-37) Alanine Aminotransferase (ALT/SGPT) 133 U/L (16-63) Alkaline Phosphatase 271 U/L (46-116) Total Protein 4.5 g/dL (6.4-8.2) Albumin 1.5 g/dL (3.4-5.0) Assessment and Plan Assessmemt and Plan Problems Medical Problems: (1) Acute renal failure Status: Acute Comment Review of Relevant I have reviewed the following items gera (where applicable) has been applied. Labs Laboratory Tests Test 08/26/18 09:45 08/26/18 12:15 08/27/18 04:05 08/27/18 04:25 White Blood Count 7.5 x10^3/uL (4.0-11.0) 11.1 x10^3/uL (4.0-11.0) Red Blood Count 4.39 x10^6/uL (4.30-5.70) 4.55 x10^6/uL (4.30-5.70) Hemoglobin 12.7 g/dL (13.0-17.5) 13.2 g/dL (13.0-17.5) Hematocrit 37.9 % (39.0-53.0) 38.6 % (39.0-53.0) Mean Corpuscular Volume 86 fL (79-100) 85 fL (79-100) Mean Corpuscular Hemoglobin 29 pg (25-35) 29 pg (25-35) Mean Corpuscular Hemoglobin Concent 33 g/dL (31-37) 34 g/dL (31-37) Red Cell Distribution Width 16.4 % (11.5-14.5) 16.2 % (11.5-14.5) Platelet Count 15 x10^3/uL (140-400) 30 x10^3/uL (140-400) Neutrophils (%) (Auto) 97 % (31-73) 94 % (31-73) Lymphocytes (%) (Auto) 2 % (24-48) 1 % (24-48) Monocytes (%) (Auto) 1 % (0-9) 5 % (0-9) Eosinophils (%) (Auto) 0 % (0-3) 0 % (0-3) Basophils (%) (Auto) 0 % (0-3) 0 % (0-3) Neutrophils # (Auto) 7.2 x10^3uL (1.8-7.7) 10.4 x10^3uL (1.8-7.7) Lymphocytes # (Auto) 0.2 x10^3/uL (1.0-4.8) 0.2 x10^3/uL (1.0-4.8) Monocytes # (Auto) 0.0 x10^3/uL (0.0-1.1) 0.5 x10^3/uL (0.0-1.1) Eosinophils # (Auto) 0.0 x10^3/uL (0.0-0.7) 0.0 x10^3/uL (0.0-0.7) Basophils # (Auto) 0.0 x10^3/uL (0.0-0.2) 0.0 x10^3/uL (0.0-0.2) Prothrombin Time 14.3 SEC (11.7-14.0) Prothromb Time International Ratio 1.1 (0.8-1.1) Activated Partial Thromboplast Time 47 SEC (24-38) Fibrinogen 340 mg/dL (200-440) D-Dimer ([place]) 0.85 ug/mlFEU (0.00-0.50) Sodium Level 130 mmol/L (136-145) 129 mmol/L (136-145) 132 mmol/L (136-145) Potassium Level 3.6 mmol/L (3.5-5.1) 3.7 mmol/L (3.5-5.1) 4.0 mmol/L (3.5-5.1) Chloride Level 94 mmol/L (98-107) 94 mmol/L (98-107) 94 mmol/L (98-107) Carbon Dioxide Level 16 mmol/L (21-32) 13 mmol/L (21-32) 18 mmol/L (21-32) Anion Gap 20 (6-14) 22 (6-14) 20 (6-14) Blood Urea Nitrogen 54 mg/dL (8-26) 64 mg/dL (8-26) 59 mg/dL (8-26) Creatinine 4.7 mg/dL (0.7-1.3) 5.8 mg/dL (0.7-1.3) 5.5 mg/dL (0.7-1.3) Estimated GFR (Cockcroft-Gault) 13.1 10.3 10.9 BUN/Creatinine Ratio 11 (6-20) 11 (6-20) 11 (6-20) Glucose Level 77 mg/dL (70-99) 84 mg/dL (70-99) 93 mg/dL (70-99) Lactic Acid Level 4.5 mmol/L (0.4-2.0) 5.0 mmol/L (0.4-2.0) Calcium Level 7.2 mg/dL (8.5-10.1) 6.6 mg/dL (8.5-10.1) 7.0 mg/dL (8.5-10.1) Ionized Calcium 0.85 mmol/L (1.13-1.32) Total Bilirubin 4.6 mg/dL (0.2-1.0) 5.2 mg/dL (0.2-1.0) 5.3 mg/dL (0.2-1.0) Aspartate Amino Transf (AST/SGOT) 313 U/L (15-37) 381 U/L (15-37) 545 U/L (15-37) Alanine Aminotransferase (ALT/SGPT) 135 U/L (16-63) 140 U/L (16-63) 152 U/L (16-63) Alkaline Phosphatase 197 U/L (46-116) 219 U/L (46-116) 227 U/L (46-116) Ammonia 13 mcmol/L (11-34) Total Protein 5.3 g/dL (6.4-8.2) 4.9 g/dL (6.4-8.2) 4.9 g/dL (6.4-8.2) Albumin 2.2 g/dL (3.4-5.0) 2.0 g/dL (3.4-5.0) 1.7 g/dL (3.4-5.0) Albumin/Globulin Ratio 0.7 (1.0-1.7) 0.7 (1.0-1.7) 0.5 (1.0-1.7) Creatine Kinase 326 U/L (39-308) Thyroid Stimulating Hormone (TSH) 1.364 uIU/mL (0.358-3.74) Lyme Disease IgG/IgM Antibodies <0.91 ISR (0.00-0.90) Magnesium Level 1.9 mg/dL (1.8-2.4) Test 08/27/18 09:20 08/27/18 09:22 08/28/18 05:45 Stool Occult Blood Positive (NEG) O2 Saturation 92 % (92-99) Arterial Blood pH 7.37 (7.35-7.45) Arterial Blood pCO2 at Patient Temp 24 mmHg (35-46) Arterial Blood pO2 at Patient Temp 71 mmHg (75-108) Arterial Blood HCO3 14 mmol/L (21-28) Arterial Blood Base Excess -10 mmol/L (-3-3) FiO2 36 White Blood Count 13.7 x10^3/uL (4.0-11.0) Red Blood Count 3.59 x10^6/uL (4.30-5.70) Hemoglobin 10.5 g/dL (13.0-17.5) Hematocrit 30.2 % (39.0-53.0) Mean Corpuscular Volume 84 fL (79-100) Mean Corpuscular Hemoglobin 29 pg (25-35) Mean Corpuscular Hemoglobin Concent 35 g/dL (31-37) Red Cell Distribution Width 16.1 % (11.5-14.5) Platelet Count 47 x10^3/uL (140-400) Neutrophils (%) (Auto) 73 % (31-73) Lymphocytes (%) (Auto) 7 % (24-48) Monocytes (%) (Auto) 20 % (0-9) Eosinophils (%) (Auto) 0 % (0-3) Basophils (%) (Auto) 0 % (0-3) Neutrophils # (Auto) 9.9 x10^3uL (1.8-7.7) Lymphocytes # (Auto) 0.9 x10^3/uL (1.0-4.8) Monocytes # (Auto) 2.7 x10^3/uL (0.0-1.1) Eosinophils # (Auto) 0.0 x10^3/uL (0.0-0.7) Basophils # (Auto) 0.0 x10^3/uL (0.0-0.2) Sodium Level 132 mmol/L (136-145) Potassium Level 3.6 mmol/L (3.5-5.1) Chloride Level 94 mmol/L (98-107) Carbon Dioxide Level 25 mmol/L (21-32) Anion Gap 13 (6-14) Blood Urea Nitrogen 65 mg/dL (8-26) Creatinine 5.3 mg/dL (0.7-1.3) Estimated GFR (Cockcroft-Gault) 11.4 Glucose Level 135 mg/dL (70-99) Calcium Level 6.6 mg/dL (8.5-10.1) Phosphorus Level 5.0 mg/dL (2.6-4.7) Magnesium Level 2.0 mg/dL (1.8-2.4) Total Bilirubin 6.2 mg/dL (0.2-1.0) Direct Bilirubin 5.9 mg/dL (0.0-0.2) Aspartate Amino Transf (AST/SGOT) 574 U/L (15-37) Alanine Aminotransferase (ALT/SGPT) 133 U/L (16-63) Alkaline Phosphatase 271 U/L (46-116) Total Protein 4.5 g/dL (6.4-8.2) Albumin 1.5 g/dL (3.4-5.0) Laboratory Tests Test 08/27/18 09:20 08/27/18 09:22 08/28/18 05:45 Stool Occult Blood Positive (NEG) O2 Saturation 92 % (92-99) Arterial Blood pH 7.37 (7.35-7.45) Arterial Blood pCO2 at Patient Temp 24 mmHg (35-46) Arterial Blood pO2 at Patient Temp 71 mmHg (75-108) Arterial Blood HCO3 14 mmol/L (21-28) Arterial Blood Base Excess -10 mmol/L (-3-3) FiO2 36 White Blood Count 13.7 x10^3/uL (4.0-11.0) Red Blood Count 3.59 x10^6/uL (4.30-5.70) Hemoglobin 10.5 g/dL (13.0-17.5) Hematocrit 30.2 % (39.0-53.0) Mean Corpuscular Volume 84 fL (79-100) Mean Corpuscular Hemoglobin 29 pg (25-35) Mean Corpuscular Hemoglobin Concent 35 g/dL (31-37) Red Cell Distribution Width 16.1 % (11.5-14.5) Platelet Count 47 x10^3/uL (140-400) Neutrophils (%) (Auto) 73 % (31-73) Lymphocytes (%) (Auto) 7 % (24-48) Monocytes (%) (Auto) 20 % (0-9) Eosinophils (%) (Auto) 0 % (0-3) Basophils (%) (Auto) 0 % (0-3) Neutrophils # (Auto) 9.9 x10^3uL (1.8-7.7) Lymphocytes # (Auto) 0.9 x10^3/uL (1.0-4.8) Monocytes # (Auto) 2.7 x10^3/uL (0.0-1.1) Eosinophils # (Auto) 0.0 x10^3/uL (0.0-0.7) Basophils # (Auto) 0.0 x10^3/uL (0.0-0.2) Sodium Level 132 mmol/L (136-145) Potassium Level 3.6 mmol/L (3.5-5.1) Chloride Level 94 mmol/L (98-107) Carbon Dioxide Level 25 mmol/L (21-32) Anion Gap 13 (6-14) Blood Urea Nitrogen 65 mg/dL (8-26) Creatinine 5.3 mg/dL (0.7-1.3) Estimated GFR (Cockcroft-Gault) 11.4 Glucose Level 135 mg/dL (70-99) Calcium Level 6.6 mg/dL (8.5-10.1) Phosphorus Level 5.0 mg/dL (2.6-4.7) Magnesium Level 2.0 mg/dL (1.8-2.4) Total Bilirubin 6.2 mg/dL (0.2-1.0) Direct Bilirubin 5.9 mg/dL (0.0-0.2) Aspartate Amino Transf (AST/SGOT) 574 U/L (15-37) Alanine Aminotransferase (ALT/SGPT) 133 U/L (16-63) Alkaline Phosphatase 271 U/L (46-116) Total Protein 4.5 g/dL (6.4-8.2) Albumin 1.5 g/dL (3.4-5.0) Microbiology 08/26/18 Blood Culture - Preliminary, Resulted NO GROWTH AFTER 1 DAY Medications Current Medications Sodium Chloride 1,000 ml @ 1,000 mls/hr 1X ONCE IV Last administered on 08/25/18at 20:38; Start 08/25/18 at 19:15; Stop 08/25/18 at 20:14; Status DC Ibuprofen (Motrin) 600 mg 1X ONCE PO Last administered on 08/25/18at 20:38; Start 08/25/18 at 19:45; Stop 08/25/18 at 19:49; Status DC Sodium Chloride 1,000 ml @ 1,000 mls/hr 1X ONCE IV Last administered on 08/25/18at 20:30; Start 08/25/18 at 20:30; Stop 08/25/18 at 21:29; Status DC Ceftriaxone Sodium (Rocephin) 1 gm 1X ONCE IVP Last administered on 08/25/18at 20:36; Start 08/25/18 at 20:30; Stop 08/25/18 at 20:31; Status DC Vancomycin HCl 2 gm/Sodium Chloride 500 ml @ 250 mls/hr 1X ONCE IV Last administered on 08/25/18at 23:10; Start 08/25/18 at 21:30; Stop 08/25/18 at 23:29; Status DC Sodium Chloride 1,000 ml @ 1,000 mls/hr 1X ONCE IV Last administered on 08/25/18at 23:51; Start 08/25/18 at 21:00; Stop 08/25/18 at 21:59; Status DC Piperacillin Sod/ Tazobactam Sod 4.5 gm/Sodium Chloride 100 ml @ 200 mls/hr 1X ONCE IV ; Start 08/25/18 at 21:15; Stop 08/25/18 at 21:44; Status DC Aztreonam (Azactam) 2 gm 1X ONCE IVP Last administered on 08/25/18at 21:15; Start 08/25/18 at 21:15; Stop 08/25/18 at 21:16; Status DC Magnesium Sulfate 50 ml @ 25 mls/hr 1X ONCE IV Last administered on 08/25/18at 23:51; Start 08/25/18 at 21:15; Stop 08/25/18 at 23:14; Status DC Ondansetron HCl (Zofran) 4 mg PRN Q8HRS PRN IV NAUSEA/VOMITING; Start 08/25/18 at 21:15; Stop 08/26/18 at 21:14; Status DC Acetaminophen (Tylenol) 650 mg PRN Q4HRS PRN PO FEVER; Start 08/25/18 at 21:15; Stop 08/26/18 at 21:14; Status DC Sodium Chloride 1,000 ml @ 125 mls/hr 1X ONCE IV Last administered on 08/25/18at 23:09; Start 08/25/18 at 21:15; Stop 08/26/18 at 05:14; Status DC Daptomycin 610 mg/ Sodium Chloride 50 ml @ 100 mls/hr QODAY IV Last administer ed on 08/27/18at 08:59; Start 08/27/18 at 09:00 Meropenem 500 mg/ Sodium Chloride 50 ml @ 100 mls/hr 1X ONCE IV Last administered on 08/25/18at 22:12; Start 08/25/18 at 22:00; Stop 08/25/18 at 22:29; Status DC Doxycycline Hyclate 100 mg/ Dextrose 100 ml @ 50 mls/hr Q12HR IV Last administered on 08/28/18at 08:01; Start 08/26/18 at 09:00 Meropenem 500 mg/ Sodium Chloride 50 ml @ 100 mls/hr DAILY IV Last administered on 08/28/18at 08:01; Start 08/26/18 at 09:00 Sodium Chloride (Normal Saline Flush) 10 ml QSHIFT PRN IV AFTER MEDS AND BLOOD DRAWS; Start 08/26/18 at 09:15 Norepinephrine Bitartrate 250 ml @ 0 mls/hr CONT PRN IV PER PROTOCOL Last administered on 08/27/18at 10:21; Start 08/26/18 at 09:15 Famotidine (Pepcid) 20 mg DAILY PO Last administered on 08/27/18at 08:14; Start 08/26/18 at 12:00; Stop 08/27/18 at 14:36; Status DC Sodium Chloride 1,000 ml @ 1,000 mls/hr Q1H PRN IV hypotension; Start 08/26/18 at 11:51; Stop 08/26/18 at 17:50; Status DC Sodium Chloride (Normal Saline Flush) 10 ml 1X PRN PRN IV AP catheter pack; Start 08/26/18 at 12:00; Stop 08/27/18 at 11:59; Status DC Sodium Chloride (Normal Saline Flush) 10 ml 1X PRN PRN IV CUTTING TABLE 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; Start 08/26/18 at 12:00; Stop 08/27/18 at 11:59; Status DC Sodium Chloride 1,000 ml @ 400 mls/hr Q2H30M PRN IV PATENCY; Start 08/26/18 at 11:51; Stop 08/26/18 at 23:50; Status DC Info (PHARMACY MONITORING -- do not chart) 1 each PRN DAILY PRN MC SEE COMMENTS; Start 08/26/18 at 12:00; Status UNV Info (PHARMACY MONITORING -- do not chart) 1 each PRN DAILY PRN MC SEE COMMENTS; Start 08/26/18 at 12:00 Lidocaine/Sodium Bicarbonate (Buffered Lidocaine 1%) 4 ml 1X ONCE INJ Last administered on 08/26/18at 12:45; Start 08/26/18 at 12:45; Stop 08/26/18 at 12:48; Status DC Heparin Sodium (Porcine) (Heparin Sodium) 2,500 unit 1X ONCE INT CAT Last administered on 08/26/18at 12:45; Start 08/26/18 at 12:45; Stop 08/26/18 at 12:48; Status DC Lidocaine/Sodium Bicarbonate (Buffered Lidocaine 1%) 3 ml STK-MED ONCE .ROUTE ; Start 08/26/18 at 12:49; Stop 08/26/18 at 12:50; Status DC Heparin Sodium (Porcine) (Heparin Sodium) 10,000 unit STK-MED ONCE .ROUTE ; Start 08/26/18 at 12:49; Stop 08/26/18 at 12:50; Status DC Lactobacillus Rhamnosus (Culturelle) 1 cap BID PO Last administered on 08/28/18at 08:01; Start 08/26/18 at 21:00 Acetaminophen (Tylenol) 325 mg STK-MED ONCE PO ; Start 08/27/18 at 00:43; Stop 08/27/18 at 00:44; Status DC Sodium Chloride 1,000 ml @ 1,000 mls/hr 1X ONCE IV Last administered on 08/27/18at 11:05; Start 08/27/18 at 10:30; Stop 08/27/18 at 11:29; Status DC Sodium Chloride 1,000 ml @ 1,000 mls/hr Q1H PRN IV hypotension; Start 08/27/18 at 11:28; Stop 08/27/18 at 17:27; Status DC Albumin Human 200 ml @ 200 mls/hr 1X PRN PRN IV Hypotension; Start 08/27/18 at 11:30; Stop 08/27/18 at 17:29; Status DC Sodium Chloride (Normal Saline Flush) 10 ml 1X PRN PRN IV AP catheter pack; Start 08/27/18 at 11:30; Stop 08/28/18 at 11:29 Sodium Chloride (Normal Saline Flush) 10 ml 1X PRN PRN IV CUTTING TABLE 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; Start 08/27/18 at 11:30; Stop 08/28/18 at 11:29 Sodium Chloride 1,000 ml @ 400 mls/hr Q2H30M PRN IV PATENCY; Start 08/27/18 at 11:28; Stop 08/27/18 at 23:27; Status DC Info (PHARMACY MONITORING -- do not chart) 1 each PRN DAILY PRN MC SEE COMMENTS; Start 08/27/18 at 11:30; Status UNV Info (PHARMACY MONITORING -- do not chart) 1 each PRN DAILY PRN MC SEE COMMENTS; Start 08/27/18 at 11:30; Status UNV Famotidine (Pepcid) 20 mg Q48H PO ; Start 08/29/18 at 09:00 Acetaminophen (Tylenol) 650 mg PRN Q6HRS PRN PO pain/fever; Start 08/27/18 at 21:15 Acetaminophen (Tylenol Supp) 650 mg PRN Q6HRS PRN ID MILD PAIN / TEMP Last administered on 08/27/18at 21:25; Start 08/27/18 at 21:15 Fentanyl Citrate (Fentanyl 2ml Vial) 25 mcg 1X ONCE IV Last administered on 08/28/18at 08:54; Start 08/28/18 at 08:45; Stop 08/28/18 at 08:47; Status DC Active Scripts Active Potassium Chloride 20 Meq Tablet.er 20 Meq PO DAILY Orphenadrine Citrate 100 Mg Tablet.er 100 Mg PO Q12HR Anaprox Ds (Naproxen Sodium) 550 Mg Tablet 550 Mg PO Q12HR Reported Prednisone 20 Mg Tablet 1 Tab PO DAILY Hydrochlorothiazide Tablet (Hydrochlorothiazide) 12.5 Mg Tablet 12.5 Mg PO DAILY Shilpi Allergy (Fexofenadine Hcl) 180 Mg Tablet 1 Tab PO DAILY Vitals/I & O Vital Sign - Last 24 Hours 08/27/18 08/27/18 08/27/18 08/27/18 10:00 11:00 12:00 12:00 Pulse 94 88 84 Resp 33 36 36 B/P (MAP) 121/80 (94) 123/64 (83) Pulse Ox 97 96 O2 Delivery Nasal Cannula Nasal Cannula Nasal Cannula Nasal Cannula O2 Flow Rate 3.0 3.0 3.0 3.0 08/27/18 08/27/18 08/27/18 08/27/18 13:00 14:00 15:00 16:00 Temp 98.5 98.5 Pulse 96 102 106 Resp 36 28 20 B/P (MAP) 123/64 (83) 132/78 (96) 135/82 (99) Pulse Ox 96 99 98 O2 Delivery Nasal Cannula Nasal Cannula Nasal Cannula Nasal Cannula O2 Flow Rate 3.0 3.0 3.0 3.0 08/27/18 08/27/18 08/27/18 08/27/18 16:00 17:00 18:00 19:00 Temp 100.5 100.5 Pulse 110 112 74 110 Resp 26 32 20 32 B/P (MAP) 110/58 (75) 101/57 (72) 134/71 (92) 135/77 (96) Pulse Ox 96 O2 Delivery Nasal Cannula Nasal Cannula Nasal Cannula Nasal Cannula O2 Flow Rate 3.0 3.0 3.0 5.0 08/27/18 08/27/18 08/27/18 08/27/18 19:15 19:30 20:00 20:00 Temp 102.0 102.0 Pulse 110 110 110 Resp 36 36 40 B/P (MAP) 135/71 (92) 135/71 (92) 113/81 (92) Pulse Ox 93 O2 Delivery Nasal Cannula Nasal Cannula Nasal Cannula Nasal Cannula O2 Flow Rate 5.0 5.0 5.0 5.0 08/27/18 08/27/18 08/27/18 08/27/18 21:00 21:59 22:00 23:00 Temp 100.2 100.2 Pulse 108 118 100 Resp 40 48 30 B/P (MAP) 119/62 (81) 120/69 (86) 109/58 (75) Pulse Ox 92 97 97 94 O2 Delivery Nasal Cannula BiPAP/CPAP BiPAP/CPAP Nasal Cannula O2 Flow Rate 5.0 5.0 08/27/18 08/28/18 08/28/18 08/28/18 23:36 00:00 00:00 01:00 Temp 100.5 100.5 Pulse 104 96 Resp 31 30 B/P (MAP) 94/67 (76) 109/64 (79) Pulse Ox 97 97 98 O2 Delivery BiPAP/CPAP Bi-pap BiPAP/CPAP BiPAP/CPAP 08/28/18 08/28/18 08/28/18 08/28/18 02:00 03:00 04:00 04:00 Temp 99.1 99.1 Pulse 96 100 106 Resp 30 27 31 B/P (MAP) 126/70 (88) 156/78 (104) 116/73 (87) Pulse Ox 92 94 93 O2 Delivery BiPAP/CPAP BiPAP/CPAP BiPAP/CPAP Bi-pap 08/28/18 08/28/18 08/28/18 08/28/18 04:05 05:00 05:49 06:00 Pulse 108 96 Resp 44 44 B/P (MAP) 122/69 (86) 116/60 (78) Pulse Ox 92 96 92 96 O2 Delivery BiPAP/CPAP BiPAP/CPAP BiPAP/CPAP BiPAP/CPAP 08/28/18 08:02 Pulse Ox 95 O2 Delivery BiPAP/CPAP Intake and Output 08/27/18 08/27/18 08/28/18 14:59 22:59 06:59 Intake Total 2450 ml 200 ml 720 ml Output Total 50 ml 0 ml 100 ml Balance 2400 ml 200 ml 620 ml EVGENY PARKER MD August 28, 2018 09:18
--- NOTE | 2018-08-28 09:37 | PDOC ---
Subjective: Subjective: reports abdomen feels different but does not look distended. She says he c/o epigastric discomfort. Objective: Objective: Reviewed w/ RN - black stool yesterday, abdomen is more firm today and he c/o abd pain. ID ordered CT. Vital Signs: Vital Signs Date Time Temp Pulse Resp B/P (MAP) Pulse Ox O2 Delivery O2 Flow Rate FiO2 08/28/18 08:02 95 BiPAP/CPAP 08/28/18 06:00 96 44 116/60 (78) 08/28/18 04:00 99.1 99.1 08/27/18 23:00 5.0 Labs: Laboratory Tests Test 08/28/18 05:45 White Blood Count 13.7 x10^3/uL Red Blood Count 3.59 x10^6/uL Hemoglobin 10.5 g/dL Hematocrit 30.2 % Mean Corpuscular Volume 84 fL Mean Corpuscular Hemoglobin 29 pg Mean Corpuscular Hemoglobin Concent 35 g/dL Red Cell Distribution Width 16.1 % Platelet Count 47 x10^3/uL Neutrophils (%) (Auto) 73 % Lymphocytes (%) (Auto) 7 % Monocytes (%) (Auto) 20 % Eosinophils (%) (Auto) 0 % Basophils (%) (Auto) 0 % Neutrophils # (Auto) 9.9 x10^3uL Lymphocytes # (Auto) 0.9 x10^3/uL Monocytes # (Auto) 2.7 x10^3/uL Eosinophils # (Auto) 0.0 x10^3/uL Basophils # (Auto) 0.0 x10^3/uL Sodium Level 132 mmol/L Potassium Level 3.6 mmol/L Chloride Level 94 mmol/L Carbon Dioxide Level 25 mmol/L Anion Gap 13 Blood Urea Nitrogen 65 mg/dL Creatinine 5.3 mg/dL Estimated GFR (Cockcroft-Gault) 11.4 Glucose Level 135 mg/dL Calcium Level 6.6 mg/dL Phosphorus Level 5.0 mg/dL Magnesium Level 2.0 mg/dL Total Bilirubin 6.2 mg/dL Direct Bilirubin 5.9 mg/dL Aspartate Amino Transf (AST/SGOT) 574 U/L Alanine Aminotransferase (ALT/SGPT) 133 U/L Alkaline Phosphatase 271 U/L Total Protein 4.5 g/dL Albumin 1.5 g/dL Imaging: C/A/P CT 08/28 pending PE: GEN: uncomfortable, RIJ oozing LUNGS: BiPAP HEART: tachycardic ABD: quiet - difficult exam w/ BiPAP, round, does not seem tender, somewhat firm NEURO/PSYCH: awake, attempts a few words A/P: Suspected tick-borne illness Resp failure, RADHA, anemia, thrombocytopenia (better), elevated LFTs (worse), +fecal occult Abd pain, black stool - on H2 ankit @48hrs per pharmacy Hemochromatosis, hepatic steatosis, mild splenomegaly -- Await CT. ELVIA NOE August 28, 2018 09:37
--- NOTE | 2018-08-28 09:46 | EEG ---
DATE OF SERVICE: 08/27/2018 ELECTROENCEPHALOGRAM NUMBER: [id number]. OBJECTIVE: This is a 52-year-old male patient with history of prolonged mental status changes. EEG was requested to evaluate cerebral activity and help rule out subclinical seizures. METHODS: Twenty electrodes were applied according to the international 10-20 electrode placement system. EKG monitoring, hyperventilation, intermittent photic stimulation, monopolar and bipolar montages are routinely utilized. The record was obtained on a digital system with video monitoring. FINDINGS: 1. Background: The patient was recorded in the awake, drowsy, and sleep states. The overall background amplitude is 10-20 microvolts. A posterior dominant rhythm of 7-8 Hz is observed with superimposed slowing in the theta and delta frequencies, but mainly in the theta frequency throughout the entire recording. 2. Abnormalities: No specific epileptiform discharge or electrographic seizure is seen. Diffuse slowing mainly in the theta frequency throughout the entire recording. 3. Activation: Hyperventilation was not performed because the patient was unable to perform the technique. Intermittent photic stimulation was performed with photic driving. IMPRESSION: This electroencephalogram is an abnormal study for the awake, drowsy, and sleep states. The posterior dominant rhythm of 7-8 Hz is slow for age. There is superimposed slowing mainly in the theta frequency throughout the entire recording. No focal, lateralizing, specific epileptiform discharge, or electrographic seizure is seen. This pattern of electroencephalogram may suggest encephalopathy. SOFIA ROBERSON MD DR: ANA LILIA/haleigh JOB#: [id number] / [id number] ISELA
--- NOTE | 2018-08-28 09:48 | CONS ---
DATE OF CONSULTATION: 08/27/2018 ATTENDING PHYSICIAN: Dr. Laboy. REASON FOR CONSULTATION: The patient seen in pulmonary consultation at the request of Dr. Laboy for increasing oxygen needs. HISTORY OF PRESENT ILLNESS: The patient is a 52-year-old that presented after having a tick bite approximately 3 weeks ago. He developed initially a blistering rash on his left knee, improved with [id number]-zuz-[id number] medication. He then started to feel extremely tired on 08/18/2018. He developed fever, chills, joint pain and muscle aches. He was taken to the urgent care center and prescribed some prednisone for upper respiratory tract infection. He then progressively got worse and was having some trouble with urinating. He could not sleep. He was confused. He presented to the Emergency Room, had a fever of 100.3. He had a white count of 6.2. He has been seen by the Infectious Disease service. He was started on daptomycin and doxycycline. He was restarted on meropenem. 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 Over the last 24 hours, the patient has progressed requiring increasing oxygen needs. He himself is not that significantly short of breath. He has developed renal failure and is currently on hemodialysis. When he came in, his BUN was 45, creatinine 3.9. Lactic acid level was 5.3. His x-ray I personally reviewed reveals no significant infiltrates. PAST MEDICAL HISTORY: 1. Nonsmoker. 2. Hemochromatosis. 3. Obstructive sleep apnea. 4. Hypertension. PAST SURGICAL HISTORY: He has had some wisdom teeth extracted. FAMILY HISTORY: Positive for obesity, hypertension. No lung disorders. SOCIAL HISTORY: He is , lived at home, actively involved with the [employer]. 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 ASPIRIN: LISTED TO ASPIRIN AND PENTAZOCINE. MEDICATION: List was reviewed. Home medication list included Bactrim. Current medication list was reviewed. REVIEW OF SYSTEMS: CONSTITUTIONAL: Fever. EYES: No change in visual acuity. HEENT: No nasal congestion or sore throat. PULMONARY: As indicated above. CARDIOVASCULAR: No chest pain. No pressure. GASTROINTESTINAL: Some nausea and emesis at times. GENITOURINARY: No dysuria or frequency. MUSCULOSKELETAL: As indicated above, diffuse myalgias. NEUROLOGIC: He had some confusion. PHYSICAL EXAMINATION: GENERAL: The patient was doing better than 2-3 days ago. His states that his encephalopathy is improved. VITAL SIGNS: Temperature yesterday was 103.4. HEENT: Eyes, the sclerae were nonicteric. NECK: Jugular venous distention could not be assessed secondary to body habitus. CHEST: Full expansion. LUNGS: Coarse breath sounds, no wheezes. CARDIOVASCULAR: Regular rate and rhythm with S1, S2, no S3. ABDOMEN: Soft, nontender, nondistended. EXTREMITIES: No clubbing, cyanosis or edema. NEUROLOGIC: The patient was awake, alert, following commands. A detailed neuro exam was not performed. LABORATORY DATA: Lactic acid level came down. This morning, it was 5.0. Electrolytes have deranged. BUN and creatinine deranged. Calcium is low. Magnesium is 1.9. LFTs are rising. Procalcitonin level was elevated. Lipase is elevated. Albumin is low. Serology for hepatitis B is negative. Group A strep was negative. Influenza was negative. Cold agglutinins negative. Toxicology screen was likewise negative. UA was noted. Arterial blood gas; pH of 7.37, paCO2 of 24, paO2 of 71. IMPRESSION: 1. Acute hypoxemic respiratory failure, multifactorial, suspect acute lung injury from recent infection. 2. Suspect tick-borne illness. 3. Fever. 4. Lactic acidosis. 5. Acute renal failure. 6. Acute hepatic injury. 7. Thrombocytopenia. 8. Hemochromatosis. PLAN: 1. We will continue current oxygen supplementation. 2. P.r.n. BiPAP. 3. If the patient is intolerant to BiPAP, we will attempt utilizing home CPAP. 4. Continue empiric antibiotics per ID. 5. Follow Nephrology input. 6. Advance diet. 7. DVT and GI prophylaxis. Dr. Laboy, I do appreciate the privilege in sharing this patient's care. Total cumulative critical care time of 35 minutes. ANISH DENNIS MD DR: JULIETTE/haleigh JOB#: [id number] / [id number]
--- NOTE | 2018-08-28 09:51 | NUR ---
Spoke with Dr. Avendano via phone, he has seen patient's preliminary CT results. Orders given to insert NGT to [facility], he will be coming to ICU to see patient.
[2018-08-28] MEDS ORDERED: LIDOCAINE WITH 8.4% SOD BICARB 3 ML DISP.SYRIN. ONE (09:55)
[2018-08-28] MEDS ORDERED: BENZOCAINE ONE 20% MUCOSAL SPRAY. MM STA (10:16)
[2018-08-28] MEDS ORDERED: LIDOCAINE 2% JELLY 6ML IN APPLICATOR. MM STA (10:16)
--- NOTE | 2018-08-28 10:24 | RAD ---
CT of the chest, abdomen and pelvis without contrast, 08/28/2018: HISTORY: Abdominal pain and fever Multidetector CT imaging was performed. No IV or oral contrast was administered as requested. The study is compromised by the lack of contrast enhancement, patient motion and artifacts arising from the patient's arms. Right jugular central venous catheters extend into the superior vena cava near the atrial caval junction. The thoracic aorta is of normal caliber. The heart size is normal. No mediastinal adenopathy is seen. There is moderate atelectasis/consolidation posteriorly in both lower lobes. There is a suggestion of a small amount of pleural fluid in the posterior gutters. No large pleural effusion is seen. The unopacified liver is unremarkable. The gallbladder is not visualized and is apparently contracted. The pancreas is unremarkable. The spleen is of normal size. The unopacified kidneys show no abnormality. The abdominal aorta is of normal caliber. Multiple small retroperitoneal lymph nodes are seen without evidence of pathologic enlargement. The stomach is distended with fluid and gas. Gas is present in large and small bowel in a nonspecific pattern. No free air is present in the abdomen or pelvis. There is mild streaky increased density in the lower retroperitoneal and paracolic fat in the pelvis compatible with nonspecific inflammation. No significant volume of free fluid is evident in the abdomen. Right inguinal ring is dilated and contains a small amount of fluid. No bowel herniation is evident. IMPRESSION: 1. Moderate atelectasis/consolidation posteriorly in both lower lobes. 2. Gastric distention. 3. Mild nonspecific streaky inflammation in the lower retroperitoneum and pelvis. PQRS Compliance Statement: One or more of the following individualized dose reduction techniques were utilized for this examination: 1. Automated exposure control 2. Adjustment of the mA and/or kV according to patient size 3. Use of iterative reconstruction technique Electronically signed by: Jose Hudson MD (08/28/2018 10:21 AM) [facility]
[2018-08-28 10:27] LABS: FIO2 ABG 40
[2018-08-28] MEDS ORDERED: LIDOCAINE WITH 8.4% SOD BICARB 3 ML DISP.SYRIN. INJ ONE (10:30)
--- NOTE | 2018-08-28 10:36 | PDOC2 ---
CONSULT Date of Consult Date of Consult DATE: 08/28/18 TIME: 10:30 Reason for Consult Reason for Consult: abdominal pain, distention Referring Physician Referring Physician: Dr Laboy Identification/Chief Complaint Chief Complaint abdominal pain Source Source: Chart review History of Present Illness Reason for Visit: Zhang is a 52 yo gentleman admitted with fever, thrombocytopenia, acute renal failure, sepsis and mental status changes. Reportedly had a recent tick bite. We are asked to see him because of his abdominal complaints. 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) Current Problem List Problem List Problems Medical Problems: (1) Acute renal failure Status: Acute Current Medications Current Medications Current Medications Sodium Chloride 1,000 ml @ 1,000 mls/hr 1X ONCE IV Last administered on 08/25/18at 20:38; Start 08/25/18 at 19:15; Stop 08/25/18 at 20:14; Status DC Ibuprofen (Motrin) 600 mg 1X ONCE PO Last administered on 08/25/18at 20:38; Start 08/25/18 at 19:45; Stop 08/25/18 at 19:49; Status DC Sodium Chloride 1,000 ml @ 1,000 mls/hr 1X ONCE IV Last administered on 08/25/18at 20:30; Start 08/25/18 at 20:30; Stop 08/25/18 at 21:29; Status DC Ceftriaxone Sodium (Rocephin) 1 gm 1X ONCE IVP Last administered on 08/25/18at 20:36; Start 08/25/18 at 20:30; Stop 08/25/18 at 20:31; Status DC Vancomycin HCl 2 gm/Sodium Chloride 500 ml @ 250 mls/hr 1X ONCE IV Last administered on 08/25/18at 23:10; Start 08/25/18 at 21:30; Stop 08/25/18 at 23:29; Status DC Sodium Chloride 1,000 ml @ 1,000 mls/hr 1X ONCE IV Last administered on 08/25/18at 23:51; Start 08/25/18 at 21:00; Stop 08/25/18 at 21:59; Status DC Piperacillin Sod/ Tazobactam Sod 4.5 gm/Sodium Chloride 100 ml @ 200 mls/hr 1X ONCE IV ; Start 08/25/18 at 21:15; Stop 08/25/18 at 21:44; Status DC Aztreonam (Azactam) 2 gm 1X ONCE IVP Last administered on 08/25/18at 21:15; Start 08/25/18 at 21:15; Stop 08/25/18 at 21:16; Status DC Magnesium Sulfate 50 ml @ 25 mls/hr 1X ONCE IV Last administered on 08/25/18at 23:51; Start 08/25/18 at 21:15; Stop 08/25/18 at 23:14; Status DC Ondansetron HCl (Zofran) 4 mg PRN Q8HRS PRN IV NAUSEA/VOMITING; Start 08/25/18 at 21:15; Stop 08/26/18 at 21:14; Status DC Acetaminophen (Tylenol) 650 mg PRN Q4HRS PRN PO FEVER; Start 08/25/18 at 21:15; Stop 08/26/18 at 21:14; Status DC Sodium Chloride 1,000 ml @ 125 mls/hr 1X ONCE IV Last administered on 08/25/18at 23:09; Start 08/25/18 at 21:15; Stop 08/26/18 at 05:14; Status DC Daptomycin 610 mg/ Sodium Chloride 50 ml @ 100 mls/hr QODAY IV Last administered on 08/27/18at 08:59; Start 08/27/18 at 09:00 Meropenem 500 mg/ Sodium Chloride 50 ml @ 100 mls/hr 1X ONCE IV Last administered on 08/25/18at 22:12; Start 08/25/18 at 22:00; Stop 08/25/18 at 22:29; Status DC Doxycycline Hyclate 100 mg/ Dextrose 100 ml @ 50 mls/hr Q12HR IV Last administered on 08/28/18at 08:01; Start 08/26/18 at 09:00 Meropenem 500 mg/ Sodium Chloride 50 ml @ 100 mls/hr DAILY IV Last administered on 08/28/18at 08:01; Start 08/26/18 at 09:00 Sodium Chloride (Normal Saline Flush) 10 ml QSHIFT PRN IV AFTER MEDS AND BLOOD DRAWS; Start 08/26/18 at 09:15 Norepinephrine Bitartrate 250 ml @ 0 mls/hr CONT PRN IV PER PROTOCOL Last administered on 08/27/18at 10:21; Start 08/26/18 at 09:15 Famotidine (Pepcid) 20 mg DAILY PO Last administered on 08/27/18at 08:14; Start 08/26/18 at 12:00; Stop 08/27/18 at 14:36; Status DC Sodium Chloride 1,000 ml @ 1,000 mls/hr Q1H PRN IV hypotension; Start 08/26/18 at 11:51; Stop 08/26/18 at 17:50; Status DC Sodium Chloride (Normal Saline Flush) 10 ml 1X PRN PRN IV AP catheter pack; Start 08/26/18 at 12:00; Stop 08/27/18 at 11:59; Status DC Sodium Chloride (Normal Saline Flush) 10 ml 1X PRN PRN IV VALIDATION SCIENTIST catheter pack; Start 08/26/18 at 12:00; Stop 08/27/18 at 11:59; Status DC Sodium Chloride 1,000 ml @ 400 mls/hr Q2H30M PRN IV PATENCY; Start 08/26/18 at 11:51; Stop 08/26/18 at 23:50; Status DC Info (PHARMACY MONITORING -- do not chart) 1 each PRN DAILY PRN MC SEE COMMENTS; Start 08/26/18 at 12:00; Status UNV Info (PHARMACY MONITORING -- do not chart) 1 each PRN DAILY PRN MC SEE COMMENTS; Start 08/26/18 at 12:00 Lidocaine/Sodium Bicarbonate (Buffered Lidocaine 1%) 4 ml 1X ONCE INJ Last administered on 08/26/18at 12:45; Start 08/26/18 at 12:45; Stop 08/26/18 at 12:48; Status DC Heparin Sodium (Porcine) (Heparin Sodium) 2,500 unit 1X ONCE INT CAT Last administered on 08/26/18at 12:45; Start 08/26/18 at 12:45; Stop 08/26/18 at 12:48; Status DC Lidocaine/Sodium Bicarbonate (Buffered Lidocaine 1%) 3 ml STK-MED ONCE .ROUTE ; Start 08/26/18 at 12:49; Stop 08/26/18 at 12:50; Status DC Heparin Sodium (Porcine) (Heparin Sodium) 10,000 unit STK-MED ONCE .ROUTE ; Start 08/26/18 at 12:49; Stop 08/26/18 at 12:50; Status DC Lactobacillus Rhamnosus (Culturelle) 1 cap BID PO Last administered on 08/28/18at 08:01; Start 08/26/18 at 21:00 Acetaminophen (Tylenol) 325 mg STK-MED ONCE PO ; Start 08/27/18 at 00:43; Stop 08/27/18 at 00:44; Status DC Sodium Chloride 1,000 ml @ 1,000 mls/hr 1X ONCE IV Last administered on 08/09 0at 11:05; Start 08/27/18 at 10:30; Stop 08/27/18 at 11:29; Status DC Sodium Chloride 1,000 ml @ 1,000 mls/hr Q1H PRN IV hypotension; Start 08/27/18 at 11:28; Stop 08/27/18 at 17:27; Status DC Albumin Human 200 ml @ 200 mls/hr 1X PRN PRN IV Hypotension; Start 08/27/18 at 11:30; Stop 08/27/18 at 17:29; Status DC Sodium Chloride (Normal Saline Flush) 10 ml 1X PRN PRN IV AP catheter pack; Start 08/27/18 at 11:30; Stop 08/28/18 at 11:29 Sodium Chloride (Normal Saline Flush) 10 ml 1X PRN PRN IV VALIDATION SCIENTIST catheter pack; Start 08/27/18 at 11:30; Stop 08/28/18 at 11:29 Sodium Chloride 1,000 ml @ 400 mls/hr Q2H30M PRN IV PATENCY; Start 08/27/18 at 11:28; Stop 08/27/18 at 23:27; Status DC Info (PHARMACY MONITORING -- do not chart) 1 each PRN DAILY PRN MC SEE CO MMENTS; Start 08/27/18 at 11:30; Status UNV Info (PHARMACY MONITORING -- do not chart) 1 each PRN DAILY PRN MC SEE COMMENTS; Start 08/27/18 at 11:30; Status UNV Famotidine (Pepcid) 20 mg Q48H PO ; Start 08/29/18 at 09:00 Acetaminophen (Tylenol) 650 mg PRN Q6HRS PRN PO pain/fever; Start 08/27/18 at 21:15 Acetaminophen (Tylenol Supp) 650 mg PRN Q6HRS PRN AR MILD PAIN / TEMP Last administered on 08/27/18at 21:25; Start 08/27/18 at 21:15 Fentanyl Citrate (Fentanyl 2ml Vial) 25 mcg 1X ONCE IV Last administered on 08/28/18at 08:54; Start 08/28/18 at 08:45; Stop 08/28/18 at 08:47; Status DC Lidocaine/Sodium Bicarbonate (Buffered Lidocaine 1%) 3 ml STK-MED ONCE .ROUTE ; Start 08/28/18 at 09:55; Stop 08/28/18 at 09:56; Status DC Lidocaine HCl (Glydo (Lidocaine) Jelly) 1 meng 1X STAT MM ; Start 08/28/18 at 10:16; Stop 08/28/18 at 10:19; Status DC Benzocaine (Hurricaine One) 1 spray 1X STAT MM ; Start 08/28/18 at 10:16; Stop 08/28/18 at 10:19; Status DC Lidocaine/Sodium Bicarbonate (Buffered Lidocaine 1%) 3 ml 1X ONCE INJ ; Start 08/28/18 at 10:30; Stop 08/28/18 at 10:31 Active Scripts Active Potassium Chloride 20 Meq Tablet.er 20 Meq PO DAILY Orphenadrine Citrate 100 Mg Tablet.er 100 Mg PO Q12HR Anaprox Ds (Naproxen Sodium) 550 Mg Tablet 550 Mg PO Q12HR Reported Prednisone 20 Mg Tablet 1 Tab PO DAILY Hydrochlorothiazide Tablet (Hydrochlorothiazide) 12.5 Mg Tablet 12.5 Mg PO DAILY Shilpi Allergy (Fexofenadine Hcl) 180 Mg Tablet 1 Tab PO DAILY Allergies Allergies: Coded Allergies: aspirin (Verified Allergy, Intermediate, 02/03/16) pentazocine (Verified Allergy, Intermediate, 02/03/16) ROS Review of System unable to obtain 2/2 pts mental status Physical Exam HEENT: Atraumatic, Other (scleral icterus) Lungs: Other (BIPAP on ) Heart: Other (increased rate) Abdomen: Other (distended, tympanitic) Neuro: Other (anxious) Vitals VITALS Vital Signs Date Time Temp Pulse Resp B/P (MAP) Pulse Ox O2 Delivery O2 Flow Rate FiO2 08/28/18 08:02 95 BiPAP/CPAP 08/28/18 08:00 5.0 08/28/18 06:00 96 44 116/60 (78) 08/28/18 04:00 99.1 99.1 Labs Labs Laboratory Tests Test 08/26/18 12:15 08/27/18 04:05 08/27/18 04:25 08/27/18 09:20 Sodium Level 129 mmol/L (136-145) 132 mmol/L (136-145) Potassium Level 3.7 mmol/L (3.5-5.1) 4.0 mmol/L (3.5-5.1) Chloride Level 94 mmol/L (98-107) 94 mmol/L (98-107) Carbon Dioxide Level 13 mmol/L (21-32) 18 mmol/L (21-32) Anion Gap 22 (6-14) 20 (6-14) Blood Urea Nitrogen 64 mg/dL (8-26) 59 mg/dL (8-26) Creatinine 5.8 mg/dL (0.7-1.3) 5.5 mg/dL (0.7-1.3) Estimated GFR (Cockcroft-Gault) 10.3 10.9 BUN/Creatinine Ratio 11 (6-20) 11 (6-20) Glucose Level 84 mg/dL (70-99) 93 mg/dL (70-99) Lactic Acid Level 5.0 mmol/L (0.4-2.0) Calcium Level 6.6 mg/dL (8.5-10.1) 7.0 mg/dL (8.5-10.1) Total Bilirubin 5.2 mg/dL (0.2-1.0) 5.3 mg/dL (0.2-1.0) Aspartate Amino Transf (AST/SGOT) 381 U/L (15-37) 545 U/L (15-37) Alanine Aminotransferase (ALT/SGPT) 140 U/L (16-63) 152 U/L (16-63) Alkaline Phosphatase 219 U/L (46-116) 227 U/L (46-116) Creatine Kinase 326 U/L (39-308) Total Protein 4.9 g/dL (6.4-8.2) 4.9 g/dL (6.4-8.2) Albumin 2.0 g/dL (3.4-5.0) 1.7 g/dL (3.4-5.0) Albumin/Globulin Ratio 0.7 (1.0-1.7) 0.5 (1.0-1.7) Thyroid Stimulating Hormone (TSH) 1.364 uIU/mL (0.358-3.74) Lyme Disease IgG/IgM Antibodies <0.91 ISR (0.00-0.90) White Blood Count 11.1 x10^3/uL (4.0-11.0) Red Blood Count 4.55 x10^6/uL (4.30-5.70) Hemoglobin 13.2 g/dL (13.0-17.5) Hematocrit 38.6 % (39.0-53.0) Mean Corpuscular Volume 85 fL (79-100) Mean Corpuscular Hemoglobin 29 pg (25-35) Mean Corpuscular Hemoglobin Concent 34 g/dL (31-37) Red Cell Distribution Width 16.2 % (11.5-14.5) Platelet Count 30 x10^3/uL (140-400) Neutrophils (%) (Auto) 94 % (31-73) Lymphocytes (%) (Auto) 1 % (24-48) Monocytes (%) (Auto) 5 % (0-9) Eosinophils (%) (Auto) 0 % (0-3) Basophils (%) (Auto) 0 % (0-3) Neutrophils # (Auto) 10.4 x10^3uL (1.8-7.7) Lymphocytes # (Auto) 0.2 x10^3/uL (1.0-4.8) Monocytes # (Auto) 0.5 x10^3/uL (0.0-1.1) Eosinophils # (Auto) 0.0 x10^3/uL (0.0-0.7) Basophils # (Auto) 0.0 x10^3/uL (0.0-0.2) Magnesium Level 1.9 mg/dL (1.8-2.4) Stool Occult Blood Positive (NEG) Test 08/27/18 09:22 08/28/18 05:45 08/28/18 08:35 O2 Saturation 92 % (92-99) 95 % (92-99) Arterial Blood pH 7.37 (7.35-7.45) 7.44 (7.35-7.45) Arterial Blood pCO2 at Patient Temp 24 mmHg (35-46) 37 mmHg (35-46) Arterial Blood pO2 at Patient Temp 71 mmHg (75-108) 84 mmHg (75-108) Arterial Blood HCO3 14 mmol/L (21-28) 25 mmol/L (21-28) Arterial Blood Base Excess -10 mmol/L (-3-3) 1 mmol/L (-3-3) FiO2 36 40 White Blood Count 13.7 x10^3/uL (4.0-11.0) Red Blood Count 3.59 x10^6/uL (4.30-5.70) Hemoglobin 10.5 g/dL (13.0-17.5) Hematocrit 30.2 % (39.0-53.0) Mean Corpuscular Volume 84 fL (79-100) Mean Corpuscular Hemoglobin 29 pg (25-35) Mean Corpuscular Hemoglobin Concent 35 g/dL (31-37) Red Cell Distribution Width 16.1 % (11.5-14.5) Platelet Count 47 x10^3/uL (140-400) Neutrophils (%) (Auto) 73 % (31-73) Lymphocytes (%) (Auto) 7 % (24-48) Monocytes (%) (Auto) 20 % (0-9) Eosinophils (%) (Auto) 0 % (0-3) Basophils (%) (Auto) 0 % (0-3) Neutrophils # (Auto) 9.9 x10^3uL (1.8-7.7) Lymphocytes # (Auto) 0.9 x10^3/uL (1.0-4.8) Monocytes # (Auto) 2.7 x10^3/uL (0.0-1.1) Eosinophils # (Auto) 0.0 x10^3/uL (0.0-0.7) Basophils # (Auto) 0.0 x10^3/uL (0.0-0.2) Sodium Level 132 mmol/L (136-145) Potassium Level 3.6 mmol/L (3.5-5.1) Chloride Level 94 mmol/L (98-107) Carbon Dioxide Level 25 mmol/L (21-32) Anion Gap 13 (6-14) Blood Urea Nitrogen 65 mg/dL (8-26) Creatinine 5.3 mg/dL (0.7-1.3) Estimated GFR (Cockcroft-Gault) 11.4 Glucose Level 135 mg/dL (70-99) Calcium Level 6.6 mg/dL (8.5-10.1) Phosphorus Level 5.0 mg/dL (2.6-4.7) Magnesium Level 2.0 mg/dL (1.8-2.4) Total Bilirubin 6.2 mg/dL (0.2-1.0) Direct Bilirubin 5.9 mg/dL (0.0-0.2) Aspartate Amino Transf (AST/SGOT) 574 U/L (15-37) Alanine Aminotransferase (ALT/SGPT) 133 U/L (16-63) Alkaline Phosphatase 271 U/L (46-116) Total Protein 4.5 g/dL (6.4-8.2) Albumin 1.5 g/dL (3.4-5.0) Laboratory Tests Test 08/28/18 05:45 08/28/18 08:35 White Blood Count 13.7 x10^3/uL (4.0-11.0) Red Blood Count 3.59 x10^6/uL (4.30-5.70) Hemoglobin 10.5 g/dL (13.0-17.5) Hematocrit 30.2 % (39.0-53.0) Mean Corpuscular Volume 84 fL (79-100) Mean Corpuscular Hemoglobin 29 pg (25-35) Mean Corpuscular Hemoglobin Concent 35 g/dL (31-37) Red Cell Distribution Width 16.1 % (11.5-14.5) Platelet Count 47 x10^3/uL (140-400) Neutrophils (%) (Auto) 73 % (31-73) Lymphocytes (%) (Auto) 7 % (24-48) Monocytes (%) (Auto) 20 % (0-9) Eosinophils (%) (Auto) 0 % (0-3) Basophils (%) (Auto) 0 % (0-3) Neutrophils # (Auto) 9.9 x10^3uL (1.8-7.7) Lymphocytes # (Auto) 0.9 x10^3/uL (1.0-4.8) Monocytes # (Auto) 2.7 x10^3/uL (0.0-1.1) Eosinophils # (Auto) 0.0 x10^3/uL (0.0-0.7) Basophils # (Auto) 0.0 x10^3/uL (0.0-0.2) Sodium Level 132 mmol/L (136-145) Potassium Level 3.6 mmol/L (3.5-5.1) Chloride Level 94 mmol/L (98-107) Carbon Dioxide Level 25 mmol/L (21-32) Anion Gap 13 (6-14) Blood Urea Nitrogen 65 mg/dL (8-26) Creatinine 5.3 mg/dL (0.7-1.3) Estimated GFR (Cockcroft-Gault) 11.4 Glucose Level 135 mg/dL (70-99) Calcium Level 6.6 mg/dL (8.5-10.1) Phosphorus Level 5.0 mg/dL (2.6-4.7) Magnesium Level 2.0 mg/dL (1.8-2.4) Total Bilirubin 6.2 mg/dL (0.2-1.0) Direct Bilirubin 5.9 mg/dL (0.0-0.2) Aspartate Amino Transf (AST/SGOT) 574 U/L (15-37) Alanine Aminotransferase (ALT/SGPT) 133 U/L (16-63) Alkaline Phosphatase 271 U/L (46-116) Total Protein 4.5 g/dL (6.4-8.2) Albumin 1.5 g/dL (3.4-5.0) O2 Saturation 95 % (92-99) Arterial Blood pH 7.44 (7.35-7.45) Arterial Blood pCO2 at Patient Temp 37 mmHg (35-46) Arterial Blood pO2 at Patient Temp 84 mmHg (75-108) Arterial Blood HCO3 25 mmol/L (21-28) Arterial Blood Base Excess 1 mmol/L (-3-3) FiO2 [address] done earlier is reviewed Assessment/Plan Assessment/Plan sepsis thrombocytopenia ARF mental status changes hypoxia abdominal distention Needs an NG tube to decompress his stomach while on BIPAP no acute surgical recs will follow Thanks for consult TR AMBROSE MD August 28, 2018 10:36
--- NOTE | 2018-08-28 11:02 | PDOC ---
SUBJECTIVE ROS Abdominal pain, distention this am NG tube inserted OBJECTIVE Vital Signs Vital Signs Date Time Temp Pulse Resp B/P (MAP) Pulse Ox O2 Delivery O2 Flow Rate FiO2 08/28/18 08:02 95 BiPAP/CPAP 08/28/18 08:00 5.0 08/28/18 06:00 96 44 116/60 (78) 08/28/18 04:00 99.1 99.1 I & 0 Intake and Output 08/28/18 06:59 Intake Total 3370 ml Output Total 150 ml Balance 3220 ml Intake Oral 2050 ml IV Total 1320 ml Output Urine Total 150 ml # Bowel Movements 1 PHYSICAL EXAM Physical Exam GENERAL: NAD HEENT: OM moist NECK: Supple. LUNGS: Clear to auscultation. HEART: S1 and S2. ABDOMEN: Obese, soft, nontender with bowel sounds present. EXTREMITIES: No gross edema or cyanosis. SKIN: Warm without rash. Left knee has several scabs/scarring. NEUROLOGIC: Alert and oriented x 3 - No rose DIAGNOSIS/ASSESSMENT Assessment & Plan RADHA - acute tubular necrosis, Oligo-anuric Initiated on HD 08/26 due to Azotemia and Fluid Abdominal ultrasound Rt Kidney and UA unremarkable CT scan today- Unremarkable Kidneys , gastric distension Strict I/O ( doesn't have Rose) - Bladder scan prn - No significant uop 3 rd treatment today , seen on HD, tolerating well, UF 1-2 lts if tolerated Continue as ordered Hyponatremia due to the above Stable Metabolic acidosis Resolved , HD today Corrected Ca Normal Increased LFT's , Alb very low Anemia- Drop in Hgb Coffee ground residual from NG tube Abdominal Pain /Distension- GS consult Thrombocytopenia. As per Hematology/Oncology, a peripheral smear does not reveal schistocytes. Discussed with RN and at bedside COMMENT/RELEVANT DATA Meds Current Medications Medications (Trade) Dose Ordered Sig/Noemi Start Time Stop Time Status Last Admin Dose Admin Acetaminophen (Tylenol Supp) 650 mg PRN Q6HRS PRN 08/27/18 21:15 08/27/18 21:25 650 MG Acetaminophen (Tylenol) 650 mg PRN Q6HRS PRN 08/27/18 21:15 Albumin Human 200 ml @ 200 mls/hr 1X PRN PRN 08/27/18 11:30 08/27/18 17:29 DC Aztreonam (Azactam) 2 gm 1X ONCE 08/25/18 21:15 08/25/18 21:16 DC 08/25/18 21:15 2 GM Benzocaine (Hurricaine One) 1 spray 1X STAT 08/28/18 10:16 08/28/18 10:19 DC Ceftriaxone Sodium (Rocephin) 1 gm 1X ONCE 08/25/18 20:30 08/25/18 20:31 DC 08/25/18 20:36 1 GM Daptomycin 610 mg/ Sodium Chloride 50 ml @ 100 mls/hr QODAY 08/27/18 09:00 08/27/18 08:59 100 MLS/HR Doxycycline Hyclate 100 mg/ Dextrose 100 ml @ 50 mls/hr Q12HR 08/26/18 09:00 08/28/18 08:01 50 MLS/HR Famotidine (Pepcid) 20 mg Q48H 08/29/18 09:00 Fentanyl Citrate (Fentanyl 2ml Vial) 25 mcg 1X ONCE 08/28/18 08:45 08/28/18 08:47 DC 08/28/18 08:54 25 MCG Heparin Sodium (Porcine) (Heparin Sodium) 10,000 unit STK-MED ONCE 08/26/18 12:49 08/26/18 12:50 DC Ibuprofen (Motrin) 600 mg 1X ONCE 08/25/18 19:45 08/25/18 19:49 DC 08/25/18 20:38 600 MG Info (PHARMACY MONITORING -- do not chart) 1 each PRN DAILY PRN 08/27/18 11:30 UNV Lactobacillus Rhamnosus (Culturelle) 1 cap BID 08/26/18 21:00 08/28/18 08:01 1 CAP Lidocaine HCl (Glydo (Lidocaine) Jelly) 1 meng 1X STAT 08/28/18 10:16 08/28/18 10:19 DC Lidocaine/Sodium Bicarbonate (Buffered Lidocaine 1%) 3 ml 1X ONCE 08/28/18 10:30 08/28/18 10:31 DC Magnesium Sulfate 50 ml @ 25 mls/hr 1X ONCE 08/25/18 21:15 08/25/18 23:14 DC 08/25/18 23:51 25 MLS/HR Meropenem 500 mg/ Sodium Chloride 50 ml @ 100 mls/hr DAILY 08/26/18 09:00 08/28/18 08:01 100 MLS/HR Norepinephrine Bitartrate 250 ml @ 0 mls/hr CONT PRN 08/26/18 09:15 08/27/18 10:21 1.88 MLS/HR Ondansetron HCl (Zofran) 4 mg PRN Q8HRS PRN 08/25/18 21:15 08/26/18 21:14 DC Piperacillin Sod/ Tazobactam Sod 4.5 gm/Sodium Chloride 100 ml @ 200 mls/hr 1X ONCE 08/25/18 21:15 08/25/18 21:44 DC Sodium Chloride 1,000 ml @ 400 mls/hr Q2H30M PRN 08/27/18 11:28 08/27/18 23:27 DC Sodium Chloride (Normal Saline Flush) 10 ml 1X PRN PRN 08/27/18 11:30 08/28/18 11:29 Vancomycin HCl 2 gm/Sodium Chloride 500 ml @ 250 mls/hr 1X ONCE 08/25/18 21:30 08/25/18 23:29 DC 08/25/18 23:10 250 MLS/HR Lab Laboratory Tests Test 08/28/18 05:45 08/28/18 08:35 White Blood Count 13.7 x10^3/uL (4.0-11.0) Red Blood Count 3.59 x10^6/uL (4.30-5.70) Hemoglobin 10.5 g/dL (13.0-17.5) Hematocrit 30.2 % (39.0-53.0) Mean Corpuscular Volume 84 fL (79-100) Mean Corpuscular Hemoglobin 29 pg (25-35) Mean Corpuscular Hemoglobin Concent 35 g/dL (31-37) Red Cell Distribution Width 16.1 % (11.5-14.5) Platelet Count 47 x10^3/uL (140-400) Neutrophils (%) (Auto) 73 % (31-73) Lymphocytes (%) (Auto) 7 % (24-48) Monocytes (%) (Auto) 20 % (0-9) Eosinophils (%) (Auto) 0 % (0-3) Basophils (%) (Auto) 0 % (0-3) Neutrophils # (Auto) 9.9 x10^3uL (1.8-7.7) Lymphocytes # (Auto) 0.9 x10^3/uL (1.0-4.8) Monocytes # (Auto) 2.7 x10^3/uL (0.0-1.1) Eosinophils # (Auto) 0.0 x10^3/uL (0.0-0.7) Basophils # (Auto) 0.0 x10^3/uL (0.0-0.2) Sodium Level 132 mmol/L (136-145) Potassium Level 3.6 mmol/L (3.5-5.1) Chloride Level 94 mmol/L (98-107) Carbon Dioxide Level 25 mmol/L (21-32) Anion Gap 13 (6-14) Blood Urea Nitrogen 65 mg/dL (8-26) Creatinine 5.3 mg/dL (0.7-1.3) Estimated GFR (Cockcroft-Gault) 11.4 Glucose Level 135 mg/dL (70-99) Calcium Level 6.6 mg/dL (8.5-10.1) Phosphorus Level 5.0 mg/dL (2.6-4.7) Magnesium Level 2.0 mg/dL (1.8-2.4) Total Bilirubin 6.2 mg/dL (0.2-1.0) Direct Bilirubin 5.9 mg/dL (0.0-0.2) Aspartate Amino Transf (AST/SGOT) 574 U/L (15-37) Alanine Aminotransferase (ALT/SGPT) 133 U/L (16-63) Alkaline Phosphatase 271 U/L (46-116) Total Protein 4.5 g/dL (6.4-8.2) Albumin 1.5 g/dL (3.4-5.0) O2 Saturation 95 % (92-99) Arterial Blood pH 7.44 (7.35-7.45) Arterial Blood pCO2 at Patient Temp 37 mmHg (35-46) Arterial Blood pO2 at Patient Temp 84 mmHg (75-108) Arterial Blood HCO3 25 mmol/L (21-28) Arterial Blood Base Excess 1 mmol/L (-3-3) FiO2 40 Results All relevant outside records, renal labs, imaging studies, telemetry/EKG's were reviewed. OG CHAVES MD August 28, 2018 11:02
[2018-08-28] MEDS: HALOPERIDOL LACTATE 5 MG/ML VIAL. IVP PRN ×2 (12:04→17:13)
--- NOTE | 2018-08-28 12:10 | NUR ---
NGT inserted using hurricane spray and lidocaine jelly per Dr. Avendano's orders. Meds did not scan.
--- NOTE | 2018-08-28 13:45 | PDOC ---
PROGRESS NOTES Assessment Assessment Metabolic encephalopathy. Confusion. Fever. Cough. Septic shock. Lactic acidosis. Renal failure on dialysis. Thrombocytopenia. Hepatomegaly. Tick bite, Hx. Diarrhea. Elevated lipase. HTN. KIKI. Hemochromatosis Obesity. RECOMMENDATIONS/PLAN: Treat medical diseases. HCT. Discussed with his at bedside in ICU on 08/28/18. OT/PT. EEG on 08/27/18: Encephalopathy. No seizure activity. HISTORY OF THE PRESENT ILLNESS: 52-y-old male patient with hemochromatosis, KIKI, and HTN presented to the hospital with fevers for about 1 week. He states he was more tired and fatigue. On Mother's Day he had a fever of 101. Next day, he saw his primary care physician and was tested for flu that was negative. He was instructed to take Ibuprofen alternating with Tylenol for the fever. He did that and Monday did not have a fever. On Monday he had a severe headache. He went to Urgent care in [place] and was given prednisone 20mg X 5 days at that time. He states that blood work was performed but does not know results. , he went to work with a mild headache and was tired and fatigued. night, he was found to have a fever of 104 and took ibuprofen. Monday he presented to the ED at [facility] and was evaluated. He stated that about 3 weeks ago he developed rash on his left lower extremity that he thought was poison Lexie. For the hemochromatosis, he follows with Dr. Iverson at [facility] and has been undergoing phlebotomy. His last phlebotomy was in late June of 2018. He had increased MS changes and confusion on 08/25, so Neurology was requested for consultation on 08/26. Past Medical History KIKI Hemochromatosis HTN Cardiovascular: HTN Pulmonary: No pertinent hx GI: No pertinent hx Heme/Onc: Hemochromatosis Hepatobiliary: No pertinent hx Family History His father had with hemochromatosis, of inoperable brain tumor Social History Lives at home with and three sons. 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 He denies any etoh, drugs and smoking Allergies Coded Allergies: aspirin (Verified Allergy, Intermediate, 02/03/16) pentazocine (Verified Allergy, Intermediate, 02/03/16) MEDICATIONS: Refer to [facility] REVIEW OF SYSTEMS: Constitutional: Obese. Head: No traumatic brain or head injury. Skin: No edema, or rash. Ear: No infection. Eyes: No vision loss or color blindness. Nose: No bleeding or purulent discharges. Hearing: No hearing decrease. Neck: No injury. Cardiac: HTN. Pulmonary: No COPD. GI: No GI ulcer, GI bleeding. Urinary/genital: No dysuria, incontinence, urinary retention. Endocrinologic: No cousin face, craniofacial dysmorphism, polydactyly. Skeletomuscular: Generalized weakness. Neurological: see HP. Psychiatric: Denies drug use/abuse. Otherwise, not [id number] review of systems. PHYSICAL EXAMINATION: General appearance is in subacute distress. HEENT: Normocephalic and nontraumatic. Eyes, nose, ears, and throat are unremarkable. Neck is supple. No lymphadenopathy. No crepitus. Cardiovascular: S1, S2, regular rate and rhythm. Pulmonary: Clear to auscultation bilaterally. Abdomen: Bowel sounds are positive. Extremities: No rash, lesions, or edema. No restriction of range of motion NEUROLOGICAL EXAMINATION: Awake. Not fully oriented to time, but knew in the hospital and knew his . PERRL. EOMI. CN: no focal findings. Muscle tone: within normal. Muscle strength: 4+ DTR: 2 UE, 1-2 at knee. Plantar reflex: Flexor response bilaterally Gait: not examined in bed. Sensory exam: no abnormal findings. No cerebellar signs elicited. F-T-N test not performed due to drowsiness.. Objective Objective Vital Signs Date Time Temp Pulse Resp B/P (MAP) Pulse Ox O2 Delivery O2 Flow Rate FiO2 08/28/18 12:15 98 NonRebreather Mask 08/28/18 12:00 5.0 08/28/18 12:00 94 39 106/59 (75) 08/28/18 08:00 98.9 98.9 Intake and Output 08/28/18 07:00 Intake Total 3120 ml Output Total 100 ml Balance 3020 ml Intake Oral 1800 ml IV Total 1320 ml Output Urine Total 100 ml # Bowel Movements 1 Vitals Signs Vitals VS - Last 72 Hours, by Label Date Time Temp Pulse Resp B/P (MAP) Pulse Ox O2 Delivery O2 Flow Rate FiO2 08/28/18 12:15 98 NonRebreather Mask 08/28/18 12:00 Bi-pap 5.0 08/28/18 12:00 94 39 106/59 (75) 96 NonRebreather Mask 08/28/18 11:00 98 40 129/68 (88) 93 NonRebreather Mask 08/28/18 10:00 100 44 135/76 (95) 96 BiPAP/CPAP 08/28/18 09:00 93 BiPAP/CPAP 08/28/18 09:00 94 49 96 BiPAP/CPAP 08/28/18 08:45 BiPAP/CPAP 08/28/18 08:02 95 BiPAP/CPAP 08/28/18 08:00 98.9 92 42 104/50 (68) 96 BiPAP/CPAP 98.9 08/28/18 08:00 Bi-pap 5.0 08/28/18 07:00 94 49 103/68 (80) 96 BiPAP/CPAP 08/28/18 06:00 96 44 116/60 (78) 96 BiPAP/CPAP 08/28/18 05:49 92 BiPAP/CPAP 08/28/18 05:00 108 44 122/69 (86) 96 BiPAP/CPAP 08/28/18 04:05 92 BiPAP/CPAP 08/28/18 04:00 Bi-pap 08/28/18 04:00 99.1 106 31 116/73 (87) 93 BiPAP/CPAP 99.1 08/28/18 03:00 100 27 156/78 (104) 94 BiPAP/CPAP 08/28/18 02:00 96 30 126/70 (88) 92 BiPAP/CPAP 08/28/18 01:00 96 30 109/64 (79) 98 BiPAP/CPAP 08/28/18 00:00 100.5 104 31 94/67 (76) 97 BiPAP/CPAP 100.5 08/28/18 00:00 Bi-pap 08/27/18 23:36 97 BiPAP/CPAP 08/27/18 23:00 100 30 109/58 (75) 94 Nasal Cannula 5.0 08/27/18 22:00 100.2 118 48 120/69 (86) 97 BiPAP/CPAP 100.2 08/27/18 21:59 97 BiPAP/CPAP 08/27/18 21:00 108 40 119/62 (81) 92 Nasal Cannula 5.0 08/27/18 20:00 Nasal Cannula 5.0 08/27/18 20:00 110 40 113/81 (92) 93 Nasal Cannula 5.0 08/27/18 19:30 110 36 135/71 (92) Nasal Cannula 5.0 08/27/18 19:15 102.0 110 36 135/71 (92) Nasal Cannula 5.0 102.0 08/27/18 19:00 110 32 135/77 (96) Nasal Cannula 5.0 08/27/18 18:00 74 20 134/71 (92) Nasal Cannula 3.0 08/27/18 17:00 112 32 101/57 (72) Nasal Cannula 3.0 08/27/18 16:00 100.5 110 26 110/58 (75) 96 Nasal Cannula 3.0 100.5 08/27/18 16:00 Nasal Cannula 3.0 08/27/18 15:00 106 20 135/82 (99) 98 Nasal Cannula 3.0 08/27/18 14:00 102 28 132/78 (96) 99 Nasal Cannula 3.0 08/27/18 13:00 98.5 96 36 123/64 (83) 96 Nasal Cannula 3.0 98.5 08/27/18 12:00 84 36 123/64 (83) Nasal Cannula 3.0 08/27/18 12:00 Nasal Cannula 3.0 08/27/18 11:00 88 36 121/80 (94) 96 Nasal Cannula 3.0 08/27/18 10:00 94 33 97 Nasal Cannula 3.0 08/27/18 09:00 92 36 106/74 (85) 91 Nasal Cannula 3.0 08/27/18 08:00 Nasal Cannula 3.0 08/27/18 08:00 97.9 92 36 68/48 (55) Nasal Cannula 3.0 97.9 08/27/18 07:00 42 Nasal Cannula 3.0 Laboratory Laboratory Laboratory Tests Test 08/28/18 05:45 08/28/18 08:35 White Blood Count 13.7 x10^3/uL (4.0-11.0) Red Blood Count 3.59 x10^6/uL (4.30-5.70) Hemoglobin 10.5 g/dL (13.0-17.5) Hematocrit 30.2 % (39.0-53.0) Mean Corpuscular Volume 84 fL (79-100) Mean Corpuscular Hemoglobin 29 pg (25-35) Mean Corpuscular Hemoglobin Concent 35 g/dL (31-37) Red Cell Distribution Width 16.1 % (11.5-14.5) Platelet Count 47 x10^3/uL (140-400) Neutrophils (%) (Auto) 73 % (31-73) Lymphocytes (%) (Auto) 7 % (24-48) Monocytes (%) (Auto) 20 % (0-9) Eosinophils (%) (Auto) 0 % (0-3) Basophils (%) (Auto) 0 % (0-3) Neutrophils # (Auto) 9.9 x10^3uL (1.8-7.7) Lymphocytes # (Auto) 0.9 x10^3/uL (1.0-4.8) Monocytes # (Auto) 2.7 x10^3/uL (0.0-1.1) Eosinophils # (Auto) 0.0 x10^3/uL (0.0-0.7) Basophils # (Auto) 0.0 x10^3/uL (0.0-0.2) Sodium Level 132 mmol/L (136-145) Potassium Level 3.6 mmol/L (3.5-5.1) Chloride Level 94 mmol/L (98-107) Carbon Dioxide Level 25 mmol/L (21-32) Anion Gap 13 (6-14) Blood Urea Nitrogen 65 mg/dL (8-26) Creatinine 5.3 mg/dL (0.7-1.3) Estimated GFR (Cockcroft-Gault) 11.4 Glucose Level 135 mg/dL (70-99) Calcium Level 6.6 mg/dL (8.5-10.1) Phosphorus Level 5.0 mg/dL (2.6-4.7) Magnesium Level 2.0 mg/dL (1.8-2.4) Total Bilirubin 6.2 mg/dL (0.2-1.0) Direct Bilirubin 5.9 mg/dL (0.0-0.2) Aspartate Amino Transf (AST/SGOT) 574 U/L (15-37) Alanine Aminotransferase (ALT/SGPT) 133 U/L (16-63) Alkaline Phosphatase 271 U/L (46-116) Total Protein 4.5 g/dL (6.4-8.2) Albumin 1.5 g/dL (3.4-5.0) O2 Saturation 95 % (92-99) Arterial Blood pH 7.44 (7.35-7.45) Arterial Blood pCO2 at Patient Temp 37 mmHg (35-46) Arterial Blood pO2 at Patient Temp 84 mmHg (75-108) Arterial Blood HCO3 25 mmol/L (21-28) Arterial Blood Base Excess 1 mmol/L (-3-3) FiO2 40 Microbiology 08/26/18 Blood Culture - Preliminary, Resulted NO GROWTH AFTER 2 DAYS 08/25/18 Throat Culture - Final, Complete 08/25/18 - Final, Complete Medication Medications Current Medications Acetaminophen (Tylenol Supp) 650 mg PRN Q6HRS PRN IA MILD PAIN / TEMP Last administered on 08/27/18at 21:25; Start 08/27/18 at 21:15 Acetaminophen (Tylenol) 650 mg PRN Q6HRS PRN PO pain/fever; Start 08/27/18 at 21:15 Benzocaine (Hurricaine One) 1 spray 1X STAT MM Last administered on 08/28/18at 10:16; Start 08/28/18 at 10:16; Stop 08/28/18 at 10:19; Status DC Famotidine (Pepcid) 20 mg Q48H PO ; Start 08/29/18 at 09:00 Fentanyl Citrate (Fentanyl 2ml Vial) 25 mcg 1X ONCE IV Last administered on 08/28/18at 08:54; Start 08/28/18 at 08:45; Stop 08/28/18 at 08:47; Status DC Haloperidol Lactate (Haldol Inj) 5 mg PRN Q6HRS PRN IVP AGITATION Last administered on 08/28/18at 12:04; Start 08/28/18 at 12:00 Lidocaine HCl (Glydo (Lidocaine) Jelly) 1 meng 1X STAT MM Last administered on 08/28/18at 10:16; Start 08/28/18 at 10:16; Stop 08/28/18 at 10:19; Status DC Lidocaine/Sodium Bicarbonate (Buffered Lidocaine 1%) 3 ml 1X ONCE INJ ; Start 08/28/18 at 10:30; Stop 08/28/18 at 10:31; Status DC Lidocaine/Sodium Bicarbonate (Buffered Lidocaine 1%) 3 ml STK-MED ONCE .ROUTE ; Start 08/28/18 at 09:55; Stop 08/28/18 at 09:56; Status DC Comment Review of Relevant I have reviewed the following items gera (where applicable) has been applied. SOFIA ROBERSON MD August 28, 2018 13:45
[2018-08-28] MEDS ORDERED: ALBUMIN HUMAN 25% 200 ML IV PRN (14:00)
[2018-08-28] MEDS ORDERED: IV NORMAL SALINE 1000ML BAG 1,000 ML IV PRN ×2 (14:00)
--- NOTE | 2018-08-28 15:25 | NUR ---
Patient is continuing to complain of severe stomach pain. Discussed with Dr. Calle, he defers to Dr. Avendano due to concerns about patient's gut motility. Dr. Avendano paged, orders given for 50 mcg of Fentanyl IV PRN q4h for pain control.
[2018-08-28] MEDS ORDERED: DIALYSIS PATIENT. MC PRN ×2 (15:30)
[2018-08-28] MEDS: fentaNYL PF VIAL 100 MCG/2 ML VIAL IV PRN ×2 (15:35→21:44)
--- NOTE | 2018-08-28 17:03 | PDOC ---
PROGRESS NOTES Subjective Subjective HPI -f/u of thrombocytopenia ROS - no bleeding Objective Objective Vital Signs Date Time Temp Pulse Resp B/P (MAP) Pulse Ox O2 Delivery O2 Flow Rate FiO2 08/28/18 16:00 99.4 102 44 124/74 (91) 99 NonRebreather Mask 99.4 08/28/18 16:00 5.0 Intake and Output 08/28/18 06:59 Intake Total 3370 ml Output Total 150 ml Balance 3220 ml Intake Oral 2050 ml IV Total 1320 ml Output Urine Total 150 ml # Bowel Movements 1 Physical Exam Heart: Regular rate General: Alert Neck: No JVD Assessment Assessment Problems Medical Problems: (1) Acute renal failure Status: Acute Assessment/Plan 52 yo male presents with week long history of fever and found to have thrombocytopenia, ARF, elevated LFTs 1. Septic shock - Fever - Tick borne illness suspected. I d/w Dr Lujan. 2. Dehydration 3. Acute renal failure 4. Elevated LFTs 5. Thrombocytopenia due to sepsis, no clinical evidence of TTP, no evidence of schistocytes, normal retic and haptoglobin and Hb. He should be transfused plts if his plt count <10 or he develops active bleeding. Plt better at 30 on 08/27/18. Plt better at 47 on 08/28/18, Monitor cbc. Comment Review of Relevant I have reviewed the following items gera (where applicable) has been applied. Labs Laboratory Tests Test 08/27/18 04:05 08/27/18 04:25 08/27/18 09:20 08/27/18 09:22 White Blood Count 11.1 x10^3/uL (4.0-11.0) Red Blood Count 4.55 x10^6/uL (4.30-5.70) Hemoglobin 13.2 g/dL (13.0-17.5) Hematocrit 38.6 % (39.0-53.0) Mean Corpuscular Volume 85 fL (79-100) Mean Corpuscular Hemoglobin 29 pg (25-35) Mean Corpuscular Hemoglobin Concent 34 g/dL (31-37) Red Cell Distribution Width 16.2 % (11.5-14.5) Platelet Count 30 x10^3/uL (140-400) Neutrophils (%) (Auto) 94 % (31-73) Lymphocytes (%) (Auto) 1 % (24-48) Monocytes (%) (Auto) 5 % (0-9) Eosinophils (%) (Auto) 0 % (0-3) Basophils (%) (Auto) 0 % (0-3) Neutrophils # (Auto) 10.4 x10^3uL (1.8-7.7) Lymphocytes # (Auto) 0.2 x10^3/uL (1.0-4.8) Monocytes # (Auto) 0.5 x10^3/uL (0.0-1.1) Eosinophils # (Auto) 0.0 x10^3/uL (0.0-0.7) Basophils # (Auto) 0.0 x10^3/uL (0.0-0.2) Sodium Level 132 mmol/L (136-145) Potassium Level 4.0 mmol/L (3.5-5.1) Chloride Level 94 mmol/L (98-107) Carbon Dioxide Level 18 mmol/L (21-32) Anion Gap 20 (6-14) Blood Urea Nitrogen 59 mg/dL (8-26) Creatinine 5.5 mg/dL (0.7-1.3) Estimated GFR (Cockcroft-Gault) 10.9 BUN/Creatinine Ratio 11 (6-20) Glucose Level 93 mg/dL (70-99) Calcium Level 7.0 mg/dL (8.5-10.1) Magnesium Level 1.9 mg/dL (1.8-2.4) Total Bilirubin 5.3 mg/dL (0.2-1.0) Aspartate Amino Transf (AST/SGOT) 545 U/L (15-37) Alanine Aminotransferase (ALT/SGPT) 152 U/L (16-63) Alkaline Phosphatase 227 U/L (46-116) Total Protein 4.9 g/dL (6.4-8.2) Albumin 1.7 g/dL (3.4-5.0) Albumin/Globulin Ratio 0.5 (1.0-1.7) Stool Occult Blood Positive (NEG) O2 Saturation 92 % (92-99) Arterial Blood pH 7.37 (7.35-7.45) Arterial Blood pCO2 at Patient Temp 24 mmHg (35-46) Arterial Blood pO2 at Patient Temp 71 mmHg (75-108) Arterial Blood HCO3 14 mmol/L (21-28) Arterial Blood Base Excess -10 mmol/L (-3-3) FiO2 36 Test 08/28/18 05:45 08/28/18 08:35 White Blood Count 13.7 x10^3/uL (4.0-11.0) Red Blood Count 3.59 x10^6/uL (4.30-5.70) Hemoglobin 10.5 g/dL (13.0-17.5) Hematocrit 30.2 % (39.0-53.0) Mean Corpuscular Volume 84 fL (79-100) Mean Corpuscular Hemoglobin 29 pg (25-35) Mean Corpuscular Hemoglobin Concent 35 g/dL (31-37) Red Cell Distribution Width 16.1 % (11.5-14.5) Platelet Count 47 x10^3/uL (140-400) Neutrophils (%) (Auto) 73 % (31-73) Lymphocytes (%) (Auto) 7 % (24-48) Monocytes (%) (Auto) 20 % (0-9) Eosinophils (%) (Auto) 0 % (0-3) Basophils (%) (Auto) 0 % (0-3) Neutrophils # (Auto) 9.9 x10^3uL (1.8-7.7) Lymphocytes # (Auto) 0.9 x10^3/uL (1.0-4.8) Monocytes # (Auto) 2.7 x10^3/uL (0.0-1.1) Eosinophils # (Auto) 0.0 x10^3/uL (0.0-0.7) Basophils # (Auto) 0.0 x10^3/uL (0.0-0.2) Sodium Level 132 mmol/L (136-145) Potassium Level 3.6 mmol/L (3.5-5.1) Chloride Level 94 mmol/L (98-107) Carbon Dioxide Level 25 mmol/L (21-32) Anion Gap 13 (6-14) Blood Urea Nitrogen 65 mg/dL (8-26) Creatinine 5.3 mg/dL (0.7-1.3) Estimated GFR (Cockcroft-Gault) 11.4 Glucose Level 135 mg/dL (70-99) Calcium Level 6.6 mg/dL (8.5-10.1) Phosphorus Level 5.0 mg/dL (2.6-4.7) Magnesium Level 2.0 mg/dL (1.8-2.4) Total Bilirubin 6.2 mg/dL (0.2-1.0) Direct Bilirubin 5.9 mg/dL (0.0-0.2) Aspartate Amino Transf (AST/SGOT) 574 U/L (15-37) Alanine Aminotransferase (ALT/SGPT) 133 U/L (16-63) Alkaline Phosphatase 271 U/L (46-116) Total Protein 4.5 g/dL (6.4-8.2) Albumin 1.5 g/dL (3.4-5.0) O2 Saturation 95 % (92-99) Arterial Blood pH 7.44 (7.35-7.45) Arterial Blood pCO2 at Patient Temp 37 mmHg (35-46) Arterial Blood pO2 at Patient Temp 84 mmHg (75-108) Arterial Blood HCO3 25 mmol/L (21-28) Arterial Blood Base Excess 1 mmol/L (-3-3) FiO2 40 Laboratory Tests Test 08/28/18 05:45 08/28/18 08:35 White Blood Count 13.7 x10^3/uL (4.0-11.0) Red Blood Count 3.59 x10^6/uL (4.30-5.70) Hemoglobin 10.5 g/dL (13.0-17.5) Hematocrit 30.2 % (39.0-53.0) Mean Corpuscular Volume 84 fL (79-100) Mean Corpuscular Hemoglobin 29 pg (25-35) Mean Corpuscular Hemoglobin Concent 35 g/dL (31-37) Red Cell Distribution Width 16.1 % (11.5-14.5) Platelet Count 47 x10^3/uL (140-400) Neutrophils (%) (Auto) 73 % (31-73) Lymphocytes (%) (Auto) 7 % (24-48) Monocytes (%) (Auto) 20 % (0-9) Eosinophils (%) (Auto) 0 % (0-3) Basophils (%) (Auto) 0 % (0-3) Neutrophils # (Auto) 9.9 x10^3uL (1.8-7.7) Lymphocytes # (Auto) 0.9 x10^3/uL (1.0-4.8) Monocytes # (Auto) 2.7 x10^3/uL (0.0-1.1) Eosinophils # (Auto) 0.0 x10^3/uL (0.0-0.7) Basophils # (Auto) 0.0 x10^3/uL (0.0-0.2) Sodium Level 132 mmol/L (136-145) Potassium Level 3.6 mmol/L (3.5-5.1) Chloride Level 94 mmol/L (98-107) Carbon Dioxide Level 25 mmol/L (21-32) Anion Gap 13 (6-14) Blood Urea Nitrogen 65 mg/dL (8-26) Creatinine 5.3 mg/dL (0.7-1.3) Estimated GFR (Cockcroft-Gault) 11.4 Glucose Level 135 mg/dL (70-99) Calcium Level 6.6 mg/dL (8.5-10.1) Phosphorus Level 5.0 mg/dL (2.6-4.7) Magnesium Level 2.0 mg/dL (1.8-2.4) Total Bilirubin 6.2 mg/dL (0.2-1.0) Direct Bilirubin 5.9 mg/dL (0.0-0.2) Aspartate Amino Transf (AST/SGOT) 574 U/L (15-37) Alanine Aminotransferase (ALT/SGPT) 133 U/L (16-63) Alkaline Phosphatase 271 U/L (46-116) Total Protein 4.5 g/dL (6.4-8.2) Albumin 1.5 g/dL (3.4-5.0) O2 Saturation 95 % (92-99) Arterial Blood pH 7.44 (7.35-7.45) Arterial Blood pCO2 at Patient Temp 37 mmHg (35-46) Arterial Blood pO2 at Patient Temp 84 mmHg (75-108) Arterial Blood HCO3 25 mmol/L (21-28) Arterial Blood Base Excess 1 mmol/L (-3-3) FiO2 40 Microbiology 08/26/18 Blood Culture - Preliminary, Resulted NO GROWTH AFTER 2 DAYS 08/25/18 Throat Culture - Final, Complete 08/25/18 - Final, Complete Medications Current Medications Sodium Chloride 1,000 ml @ 1,000 mls/hr 1X ONCE IV Last administered on 08/25/18at 20:38; Start 08/25/18 at 19:15; Stop 08/25/18 at 20:14; Status DC Ibuprofen (Motrin) 600 mg 1X ONCE PO Last administered on 08/25/18at 20:38; Start 08/25/18 at 19:45; Stop 08/25/18 at 19:49; Status DC Sodium Chloride 1,000 ml @ 1,000 mls/hr 1X ONCE IV Last administered on 08/25/18at 20:30; Start 08/25/18 at 20:30; Stop 08/25/18 at 21:29; Status DC Ceftriaxone Sodium (Rocephin) 1 gm 1X ONCE IVP Last administered on 08/25/18at 20:36; Start 08/25/18 at 20:30; Stop 08/25/18 at 20:31; Status DC Vancomycin HCl 2 gm/Sodium Chloride 500 ml @ 250 mls/hr 1X ONCE IV Last administered on 08/25/18at 23:10; Start 08/25/18 at 21:30; Stop 08/25/18 at 23:29; Status DC Sodium Chloride 1,000 ml @ 1,000 mls/hr 1X ONCE IV Last administered on at 23:51; Start 08/25/18 at 21:00; Stop 08/25/18 at 21:59; Status DC Piperacillin Sod/ Tazobactam Sod 4.5 gm/Sodium Chloride 100 ml @ 200 mls/hr 1X ONCE IV ; Start 08/25/18 at 21:15; Stop 08/25/18 at 21:44; Status DC Aztreonam (Azactam) 2 gm 1X ONCE IVP Last administered on 08/25/18at 21:15; Start 08/25/18 at 21:15; Stop 08/25/18 at 21:16; Status DC Magnesium Sulfate 50 ml @ 25 mls/hr 1X ONCE IV Last administered on 08/25/18at 23:51; Start 08/25/18 at 21:15; Stop 08/25/18 at 23:14; Status DC Ondansetron HCl (Zofran) 4 mg PRN Q8HRS PRN IV NAUSEA/VOMITING; Start 08/25/18 at 21:15; Stop 08/26/18 at 21:14; Status DC Acetaminophen (Tylenol) 650 mg PRN Q4HRS PRN PO FEVER; Start 08/25/18 at 21:15; Stop 08/26/18 at 21:14; Status DC Sodium Chloride 1,000 ml @ 125 mls/hr 1X ONCE IV Last administered on 08/25/18at 23:09; Start 08/25/18 at 21:15; Stop 08/26/18 at 05:14; Status DC Daptomycin 610 mg/ Sodium Chloride 50 ml @ 100 mls/hr QODAY IV Last administered on 08/27/18at 08:59; Start 08/27/18 at 09:00; Stop 08/28/18 at 15:40; Status DC Meropenem 500 mg/ Sodium Chloride 50 ml @ 100 mls/hr 1X ONCE IV Last administered on 08/25/18at 22:12; Start 08/25/18 at 22:00; Stop 08/25/18 at 22:29; Status DC Doxycycline Hyclate 100 mg/ Dextrose 100 ml @ 50 mls/hr Q12HR IV Last administered on 08/28/18at 08:01; Start 08/26/18 at 09:00 Meropenem 500 mg/ Sodium Chloride 50 ml @ 100 mls/hr DAILY IV Last administered on 08/28/18at 08:01; Start 08/26/18 at 09:00 Sodium Chloride (Normal Saline Flush) 10 ml QSHIFT PRN IV AFTER MEDS AND BLOOD DRAWS; Start 08/26/18 at 09:15 Norepinephrine Bitartrate 250 ml @ 0 mls/hr CONT PRN IV PER PROTOCOL Last administered on 08/27/18at 10:21; Start 08/26/18 at 09:15 Famotidine (Pepcid) 20 mg DAILY PO Last administered on 08/27/18at 08:14; Start 08/26/18 at 12:00; Stop 08/27/18 at 14:36; Status DC Sodium Chloride 1,000 ml @ 1,000 mls/hr Q1H PRN IV hypotension; Start 08/26/18 at 11:51; Stop 08/26/18 at 17:50; Status DC Sodium Chloride (Normal Saline Flush) 10 ml 1X PRN PRN IV AP catheter pack; Start 08/26/18 at 12:00; Stop 08/27/18 at 11:59; Status DC Sodium Chloride (Normal Saline Flush) 10 ml 1X PRN PRN IV [employer] catheter pack; Start 08/26/18 at 12:00; Stop 08/27/18 at 11:59; Status DC Sodium Chloride 1,000 ml @ 400 mls/hr Q2H30M PRN IV PATENCY; Start 08/26/18 at 11:51; Stop 08/26/18 at 23:50; Status DC Info (PHARMACY MONITORING -- do not chart) 1 each PRN DAILY PRN MC SEE COMMENTS; Start 08/26/18 at 12:00; Status UNV Info (PHARMACY MONITORING -- do not chart) 1 each PRN DAILY PRN MC SEE COMMENTS; Start 08/26/18 at 12:00 Lidocaine/Sodium Bicarbonate (Buffered Lidocaine 1%) 4 ml 1X ONCE INJ Last administered on 08/26/18at 12:45; Start 08/26/18 at 12:45; Stop 08/26/18 at 12:48; Status DC Heparin Sodium (Porcine) (Heparin Sodium) 2,500 unit 1X ONCE INT CAT Last administered on 08/26/18at 12:45; Start 08/26/18 at 12:45; Stop 08/26/18 at 12:48; Status DC Lidocaine/Sodium Bicarbonate (Buffered Lidocaine 1%) 3 ml STK-MED ONCE .ROUTE ; Start 08/26/18 at 12:49; Stop 08/26/18 at 12:50; Status DC Heparin Sodium (Porcine) (Heparin Sodium) 10,000 unit STK-MED ONCE .ROUTE ; Start 08/26/18 at 12:49; Stop 08/26/18 at 12:50; Status DC Lactobacillus Rhamnosus (Culturelle) 1 cap BID PO Last administered on 08/28/18at 08:01; Start 08/26/18 at 21:00 Acetaminophen (Tylenol) 325 mg STK-MED ONCE PO ; Start 08/27/18 at 00:43; Stop 08/27/18 at 00:44; Status DC Sodium Chloride 1,000 ml @ 1,000 mls/hr 1X ONCE IV Last administered on 08/27/18at 11:05; Start 08/27/18 at 10:30; Stop 08/27/18 at 11:29; Status DC Sodium Chloride 1,000 ml @ 1,000 mls/hr Q1H PRN IV hypotension; Start 08/27/18 at 11:28; Stop 08/27/18 at 17:27; Status DC Albumin Human 200 ml @ 200 mls/hr 1X PRN PRN IV Hypotension; Start 08/27/18 at 11:30; Stop 08/27/18 at 17:29; Status DC Sodium Chloride (Normal Saline Flush) 10 ml 1X PRN PRN IV AP catheter pack; Start 08/27/18 at 11:30; Stop 08/28/18 at 11:29; Status DC Sodium Chloride (Normal Saline Flush) 10 ml 1X PRN PRN IV [employer] catheter pack; Start 08/27/18 at 11:30; Stop 08/28/18 at 11:29; Status DC Sodium Chloride 1,000 ml @ 400 mls/hr Q2H30M PRN IV PATENCY; Start 08/27/18 at 11:28; Stop 08/27/18 at 23:27; Status DC Info (PHARMACY MONITORING -- do not chart) 1 each PRN DAILY PRN MC SEE COMMENTS; Start 08/27/18 at 11:30; Status UNV Info (PHARMACY MONITORING -- do not chart) 1 each PRN DAILY PRN MC SEE COMMENTS; Start 08/27/18 at 11:30; Status UNV Famotidine (Pepcid) 20 mg Q48H PO ; Start 08/29/18 at 09:00 Acetaminophen (Tylenol) 650 mg PRN Q6HRS PRN PO pain/fever; Start 08/27/18 at 21:15 Acetaminophen (Tylenol Supp) 650 mg PRN Q6HRS PRN AK MILD PAIN / TEMP Last administered on 08/27/18at 21:25; Start 08/27/18 at 21:15 Fentanyl Citrate (Fentanyl 2ml Vial) 25 mcg 1X ONCE IV Last administered on 08/28/18at 08:54; Start 08/28/18 at 08:45; Stop 08/28/18 at 08:47; Status DC Lidocaine/Sodium Bicarbonate (Buffered Lidocaine 1%) 3 ml STK-MED ONCE .ROUTE ; Start 08/28/18 at 09:55; Stop 08/28/18 at 09:56; Status DC Lidocaine HCl (Glydo (Lidocaine) Jelly) 1 meng 1X STAT MM Last administered on 08/28/18at 10:16; Start 08/28/18 at 10:16; Stop 08/28/18 at 10:19; Status DC Benzocaine (Hurricaine One) 1 spray 1X STAT MM Last administered on 08/28/18at 10:16; Start 08/28/18 at 10:16; Stop 08/28/18 at 10:19; Status DC Lidocaine/Sodium Bicarbonate (Buffered Lidocaine 1%) 3 ml 1X ONCE INJ ; Start 08/28/18 at 10:30; Stop 08/28/18 at 10:31; Status DC Haloperidol Lactate (Haldol Inj) 5 mg PRN Q6HRS PRN IVP AGITATION Last administered on 08/28/18at 12:04; Start 08/28/18 at 12:00 Fentanyl Citrate (Fentanyl 2ml Vial) 50 mcg PRN Q4HRS PRN IV PAIN Last administered on 08/28/18at 15:35; Start 08/28/18 at 15:30 Sodium Chloride 1,000 ml @ 1,000 mls/hr Q1H PRN IV hypotension; Start 08/28/18 at 14:00; Stop 08/28/18 at 19:59 Albumin Human 200 ml @ 200 mls/hr 1X PRN PRN IV Hypotension Last administered on 08/28/18at 14:50; Start 08/28/18 at 14:00 Sodium Chloride 1,000 ml @ 400 mls/hr Q2H30M PRN IV PATENCY; Start 08/28/18 at 14:00; Stop 08/29/18 at 01:59 Info (PHARMACY MONITORING -- do not chart) 1 each PRN DAILY PRN MC SEE COMMENTS; Start 08/28/18 at 15:30; Status UNV Info (PHARMACY MONITORING -- do not chart) 1 each PRN DAILY PRN MC SEE COMMENTS; Start 08/28/18 at 15:30; Status UNV Daptomycin 610 mg/ Sodium Chloride 50 ml @ 100 mls/hr Q48H IV ; Start 08/30/18 at 16:00 Active Scripts Active Potassium Chloride 20 Meq Tablet.er 20 Meq PO DAILY Orphenadrine Citrate 100 Mg Tablet.er 100 Mg PO Q12HR Anaprox Ds (Naproxen Sodium) 550 Mg Tablet 550 Mg PO Q12HR Reported Prednisone 20 Mg Tablet 1 Tab PO DAILY Hydrochlorothiazide Tablet (Hydrochlorothiazide) 12.5 Mg Tablet 12.5 Mg PO DAILY Shilpi Allergy (Fexofenadine Hcl) 180 Mg Tablet 1 Tab PO DAILY Vitals/I & O Vital Sign - Last 24 Hours 08/27/18 08/27/18 08/27/18 08/27/18 18:00 19:00 19:15 19:30 Temp 102.0 102.0 Pulse 74 110 110 110 Resp 20 32 36 36 B/P (MAP) 134/71 (92) 135/77 (96) 135/71 (92) 135/71 (92) O2 Delivery Nasal Cannula Nasal Cannula Nasal Cannula Nasal Cannula O2 Flow Rate 3.0 5.0 5.0 5.0 08/27/18 08/27/18 08/27/18 08/27/18 20:00 20:00 21:00 21:59 Pulse 110 108 Resp 40 40 B/P (MAP) 113/81 (92) 119/62 (81) Pulse Ox 93 92 97 O2 Delivery Nasal Cannula Nasal Cannula Nasal Cannula BiPAP/CPAP O2 Flow Rate 5.0 5.0 5.0 08/27/18 08/27/18 08/27/18 08/28/18 22:00 23:00 23:36 00:00 Temp 100.2 100.2 Pulse 118 100 Resp 48 30 B/P (MAP) 120/69 (86) 109/58 (75) Pulse Ox 97 94 97 O2 Delivery BiPAP/CPAP Nasal Cannula BiPAP/CPAP Bi-pap O2 Flow Rate 5.0 08/28/18 08/28/18 08/28/18 08/28/18 00:00 01:00 02:00 03:00 Temp 100.5 100.5 Pulse 104 96 96 100 Resp 31 30 30 27 B/P (MAP) 94/67 (76) 109/64 (79) 126/70 (88) 156/78 (104) Pulse Ox 97 98 92 94 O2 Delivery BiPAP/CPAP BiPAP/CPAP BiPAP/CPAP BiPAP/CPAP 08/28/18 08/28/18 08/28/18 08/28/18 04:00 04:00 04:05 05:00 Temp 99.1 99.1 Pulse 106 108 Resp 31 44 B/P (MAP) 116/73 (87) 122/69 (86) Pulse Ox 93 92 96 O2 Delivery BiPAP/CPAP Bi-pap BiPAP/CPAP BiPAP/CPAP 08/28/18 08/28/18 08/28/18 08/28/18 05:49 06:00 07:00 08:00 Pulse 96 94 Resp 44 49 B/P (MAP) 116/60 (78) 103/68 (80) Pulse Ox 92 96 96 O2 Delivery BiPAP/CPAP BiPAP/CPAP BiPAP/CPAP Bi-pap O2 Flow Rate 5.0 08/28/18 08/28/18 08/28/18 08/28/18 08:00 08:02 08:45 09:00 Temp 98.9 98.9 Pulse 92 94 Resp 42 49 B/P (MAP) 104/50 (68) Pulse Ox 96 95 96 O2 Delivery BiPAP/CPAP BiPAP/CPAP BiPAP/CPAP BiPAP/CPAP 08/28/18 08/28/18 08/28/18 08/28/18 09:00 10:00 11:00 12:00 Pulse 100 98 94 Resp 44 40 39 B/P (MAP) 135/76 (95) 129/68 (88) 106/59 (75) Pulse Ox 93 96 93 96 O2 Delivery BiPAP/CPAP BiPAP/CPAP NonRebreather Mask NonRebreather Mask 08/28/18 08/28/18 08/28/18 08/28/18 12:00 12:15 13:00 14:00 Temp 97.9 97.9 Pulse 66 96 Resp 22 B/P (MAP) 104/54 (71) 86/58 (67) Pulse Ox 98 97 98 O2 Delivery Bi-pap NonRebreather Mask NonRebreather Mask NonRebreather Mask O2 Flow Rate 5.0 08/28/18 08/28/18 08/28/18 15:00 16:00 16:00 Temp 99.4 99.4 Pulse 92 102 Resp 48 44 B/P (MAP) 110/60 (77) 124/74 (91) Pulse Ox 99 99 O2 Delivery NonRebreather Mask Non-Rebreather NonRebreather Mask O2 Flow Rate 5.0 Intake and Output 08/27/18 08/27/18 08/28/18 14:59 22:59 06:59 Intake Total 2450 ml 200 ml 720 ml Output Total 50 ml 0 ml 100 ml Balance 2400 ml 200 ml 620 ml JAVON COSME MD August 28, 2018 17:03
--- NOTE | 2018-08-28 17:05 | NUR ---
Tried to do q2 hour turns with patient. When patient is on turned he wiggles back to his side.
[2018-08-29] VITALS (23 sets, daily range): BP systolic 100–139; BP diastolic 52–79
[2018-08-29 02:10] LABS: ROCK MTN SF IGG Negative (Negative); ROCKY MTN SF IGM 0.62 index (0.00-0.89)
[2018-08-29 04:02] LABS: BASO # 0.3 x10^3/uL (0.0-0.2); BASO % 2 % (0-3); EOS % 0 % (0-3); HEMOGLOBIN 8.2 g/dL (13.0-17.5); LYMPH # 2.6 x10^3/uL (1.0-4.8); LYMPH % 23 % (24-48); MEAN CORPUSCULAR HEMOGLOBIN 29 pg (25-35); MEAN CORPUSCULAR HGB CONC 34 g/dL (31-37); MEAN CORPUSCULAR VOLUME 84 fL (79-100); MONO # 1.3 x10^3/uL (0.0-1.1); MONO % 12 % (0-9); NEUT # 7.1 x10^3uL (1.8-7.7); NEUT % 63 % (31-73); PLATELET COUNT 58 x10^3/uL (140-400); RED BLOOD COUNT 2.86 x10^6/uL (4.30-5.70); RED CELL DISTRIBUTION WIDTH 15.9 % (11.5-14.5); WHITE BLOOD COUNT 11.3 x10^3/uL (4.0-11.0)
[2018-08-29 04:13] LABS: ALBUMIN 2.2 g/dL (3.4-5.0); ALBUMIN/GLOBULIN RATIO 0.8 (1.0-1.7); CALCIUM 7.1 mg/dL (8.5-10.1); CREATININE 5.2 mg/dL (0.7-1.3); GFR 11.7; POTASSIUM 3.5 mmol/L (3.5-5.1); TOTAL BILIRUBIN 6.5 mg/dL (0.2-1.0); TOTAL PROTEIN 5.1 g/dL (6.4-8.2)
--- NOTE | 2018-08-29 05:27 | PDOC ---
Infectious Disease Note Subjective Subjective pt is awake, on bipap ROS ROS no n/v/d/sob still confused Vital Sign Vital Signs Vital Signs Date Time Temp Pulse Resp B/P (MAP) Pulse Ox O2 Delivery O2 Flow Rate FiO2 08/29/18 04:00 Non-Rebreather 15.0 08/28/18 23:00 92 37 107/62 (77) 92 08/28/18 20:00 99.9 99.9 Physical Exam PHYSICAL EXAM GENERAL: awake on bipap HEENT: Pupils equally round, reactive. Normal conjunctivae. Oral cavity: Pharynx pink, dry. NECK: Supple. LUNGS: Clear to auscultation. HEART: S1 and S2. ABDOMEN: Obese, soft, nontender with bowel sounds present. EXTREMITIES: No gross edema or cyanosis. SKIN: Warm without rash. Left knee has several scabs/scarring. NEUROLOGIC: Alert and oriented, fluctuating MS Labs Lab Laboratory Tests Test 08/28/18 05:45 08/28/18 08:35 08/29/18 03:50 White Blood Count 13.7 x10^3/uL (4.0-11.0) 11.3 x10^3/uL (4.0-11.0) Red Blood Count 3.59 x10^6/uL (4.30-5.70) 2.86 x10^6/uL (4.30-5.70) Hemoglobin 10.5 g/dL (13.0-17.5) 8.2 g/dL (13.0-17.5) Hematocrit 30.2 % (39.0-53.0) 24.0 % (39.0-53.0) Mean Corpuscular Volume 84 fL (79-100) 84 fL (79-100) Mean Corpuscular Hemoglobin 29 pg (25-35) 29 pg (25-35) Mean Corpuscular Hemoglobin Concent 35 g/dL (31-37) 34 g/dL (31-37) Red Cell Distribution Width 16.1 % (11.5-14.5) 15.9 % (11.5-14.5) Platelet Count 47 x10^3/uL (140-400) 58 x10^3/uL (140-400) Neutrophils (%) (Auto) 73 % (31-73) 63 % (31-73) Lymphocytes (%) (Auto) 7 % (24-48) 23 % (24-48) Monocytes (%) (Auto) 20 % (0-9) 12 % (0-9) Eosinophils (%) (Auto) 0 % (0-3) 0 % (0-3) Basophils (%) (Auto) 0 % (0-3) 2 % (0-3) Neutrophils # (Auto) 9.9 x10^3uL (1.8-7.7) 7.1 x10^3uL (1.8-7.7) Lymphocytes # (Auto) 0.9 x10^3/uL (1.0-4.8) 2.6 x10^3/uL (1.0-4.8) Monocytes # (Auto) 2.7 x10^3/uL (0.0-1.1) 1.3 x10^3/uL (0.0-1.1) Eosinophils # (Auto) 0.0 x10^3/uL (0.0-0.7) 0.0 x10^3/uL (0.0-0.7) Basophils # (Auto) 0.0 x10^3/uL (0.0-0.2) 0.3 x10^3/uL (0.0-0.2) Sodium Level 132 mmol/L (136-145) 136 mmol/L (136-145) Potassium Level 3.6 mmol/L (3.5-5.1) 3.5 mmol/L (3.5-5.1) Chloride Level 94 mmol/L (98-107) 96 mmol/L (98-107) Carbon Dioxide Level 25 mmol/L (21-32) 32 mmol/L (21-32) Anion Gap 13 (6-14) 8 (6-14) Blood Urea Nitrogen 65 mg/dL (8-26) 55 mg/dL (8-26) Creatinine 5.3 mg/dL (0.7-1.3) 5.2 mg/dL (0.7-1.3) Estimated GFR (Cockcroft-Gault) 11.4 11.7 Glucose Level 135 mg/dL (70-99) 111 mg/dL (70-99) Calcium Level 6.6 mg/dL (8.5-10.1) 7.1 mg/dL (8.5-10.1) Phosphorus Level 5.0 mg/dL (2.6-4.7) Magnesium Level 2.0 mg/dL (1.8-2.4) Total Bilirubin 6.2 mg/dL (0.2-1.0) 6.5 mg/dL (0.2-1.0) Direct Bilirubin 5.9 mg/dL (0.0-0.2) Aspartate Amino Transf (AST/SGOT) 574 U/L (15-37) 459 U/L (15-37) Alanine Aminotransferase (ALT/SGPT) 133 U/L (16-63) 110 U/L (16-63) Alkaline Phosphatase 271 U/L (46-116) 289 U/L (46-116) Total Protein 4.5 g/dL (6.4-8.2) 5.1 g/dL (6.4-8.2) Albumin 1.5 g/dL (3.4-5.0) 2.2 g/dL (3.4-5.0) O2 Saturation 95 % (92-99) Arterial Blood pH 7.44 (7.35-7.45) Arterial Blood pCO2 at Patient Temp 37 mmHg (35-46) Arterial Blood pO2 at Patient Temp 84 mmHg (75-108) Arterial Blood HCO3 25 mmol/L (21-28) Arterial Blood Base Excess 1 mmol/L (-3-3) FiO2 40 BUN/Creatinine Ratio 11 (6-20) Albumin/Globulin Ratio 0.8 (1.0-1.7) Micro Microbiology 08/26/18 Blood Culture - Preliminary, Resulted NO GROWTH AFTER 1 DAY Objective Assessment 1. Tick-borne illness, suspected. with h/o tick bite 3 weeks ago at [place] 2. Lactic acidosis. 3. Fever. 4. Bandemia. 5. Acute hepatic injury. 6. Acute kidney injury. 7. Thrombocytopenia. 8. Hemochromatosis. 9. LLE dermatitis improving, ? poison [place],resolving with local treatment Plan Plan of Care Continue dapto and doxycycline. meropenem, renal dosing. Ehrlichiae Ab pending F/u BC Monitor lab values and for abx toxicities Monitor I & Os RMSF serologies D/w D/w nursing LP will order KELBY PARKER MD August 29, 2018 05:27
[2018-08-29] MEDS: LACTOBACILLUS RHAMNOSUS GG 1 CAPSULE. PO SCH ×2 (07:28→21:00)
--- NOTE | 2018-08-29 07:42 | RAD ---
Portable chest, 08/29/2018: HISTORY: Pneumonia Comparison is made to a study done from 08/27/2018. An NG tube has been inserted extending into the stomach. 2 right jugular venous catheters are unchanged in positions. The heart appears to be within normal limits in size. Mild perihilar infiltrates have developed with loss of vascular margination. Findings suggest parahilar-perivascular pulmonary edema. No pleural fluid is seen. IMPRESSION: Mild bilateral perihilar infiltrates have developed suggesting pulmonary edema. Electronically signed by: Jose Hudosn MD (08/29/2018 7:38 AM) [facility]
[2018-08-29] MEDS: HALOPERIDOL LACTATE 5 MG/ML VIAL. IVP PRN ×2 (07:45→20:31)
[2018-08-29] MEDS: DOXYCYCLINE HYCLATE 100 MG in IV DEXTROSE 5% 100ML 100 ML IV SCH ×2 (07:45→20:31)
--- NOTE | 2018-08-29 08:55 | PDOC ---
PROGRESS NOTES Subjective Subjective HPI - f/u of thrombocytopenia ROS - no fever Objective Objective Vital Signs Date Time Temp Pulse Resp B/P (MAP) Pulse Ox O2 Delivery O2 Flow Rate FiO2 08/29/18 08:00 Non-Rebreather 15.0 08/29/18 08:00 97.8 82 25 110/61 (77) 100 97.8 Intake and Output 08/29/18 06:59 Intake Total 400 ml Output Total 3900 ml Balance -3500 ml Intake Oral 0 ml IV Total 150 ml Other 250 ml Output Urine Total 0 ml Gastric Drainage Total 900 ml Other 3000 ml Physical Exam Heart: Regular rate, Normal S1, Normal S2 General: Alert, No acute distress Lungs: Clear to auscultation Assessment Assessment Problems Medical Problems: (1) Acute renal failure Status: Acute Assessment/Plan 52 yo male presents with week long history of fever and found to have thrombocytopenia, ARF, elevated LFTs 1. Septic shock - Fever - Tick borne illness suspected. I d/w Dr Lujan. Improving. 2. Dehydration 3. Acute renal failure 4. Elevated LFTs 5. Thrombocytopenia due to sepsis, no clinical evidence of TTP, no evidence of schistocytes, normal retic and haptoglobin and Hb. He should be transfused plts if his plt count <10 or he develops active bleeding. Plt better at 30 on 08/27/18. Plt better at 47 on 08/28/18, Plt better at 57 on 08/29/18 Monitor cbc. Comment Review of Relevant I have reviewed the following items gera (where applicable) has been applied. Labs Laboratory Tests Test 08/27/18 09:20 08/27/18 09:22 08/28/18 05:45 08/28/18 08:35 Stool Occult Blood Positive (NEG) O2 Saturation 92 % (92-99) 95 % (92-99) Arterial Blood pH 7.37 (7.35-7.45) 7.44 (7.35-7.45) Arterial Blood pCO2 at Patient Temp 24 mmHg (35-46) 37 mmHg (35-46) Arterial Blood pO2 at Patient Temp 71 mmHg (75-108) 84 mmHg (75-108) Arterial Blood HCO3 14 mmol/L (21-28) 25 mmol/L (21-28) Arterial Blood Base Excess -10 mmol/L (-3-3) 1 mmol/L (-3-3) FiO2 36 40 White Blood Count 13.7 x10^3/uL (4.0-11.0) Red Blood Count 3.59 x10^6/uL (4.30-5.70) Hemoglobin 10.5 g/dL (13.0-17.5) Hematocrit 30.2 % (39.0-53.0) Mean Corpuscular Volume 84 fL (79-100) Mean Corpuscular Hemoglobin 29 pg (25-35) Mean Corpuscular Hemoglobin Concent 35 g/dL (31-37) Red Cell Distribution Width 16.1 % (11.5-14.5) Platelet Count 47 x10^3/uL (140-400) Neutrophils (%) (Auto) 73 % (31-73) Lymphocytes (%) (Auto) 7 % (24-48) Monocytes (%) (Auto) 20 % (0-9) Eosinophils (%) (Auto) 0 % (0-3) Basophils (%) (Auto) 0 % (0-3) Neutrophils # (Auto) 9.9 x10^3uL (1.8-7.7) Lymphocytes # (Auto) 0.9 x10^3/uL (1.0-4.8) Monocytes # (Auto) 2.7 x10^3/uL (0.0-1.1) Eosinophils # (Auto) 0.0 x10^3/uL (0.0-0.7) Basophils # (Auto) 0.0 x10^3/uL (0.0-0.2) Sodium Level 132 mmol/L (136-145) Potassium Level 3.6 mmol/L (3.5-5.1) Chloride Level 94 mmol/L (98-107) Carbon Dioxide Level 25 mmol/L (21-32) Anion Gap 13 (6-14) Blood Urea Nitrogen 65 mg/dL (8-26) Creatinine 5.3 mg/dL (0.7-1.3) Estimated GFR (Cockcroft-Gault) 11.4 Glucose Level 135 mg/dL (70-99) Calcium Level 6.6 mg/dL (8.5-10.1) Phosphorus Level 5.0 mg/dL (2.6-4.7) Magnesium Level 2.0 mg/dL (1.8-2.4) Total Bilirubin 6.2 mg/dL (0.2-1.0) Direct Bilirubin 5.9 mg/dL (0.0-0.2) Aspartate Amino Transf (AST/SGOT) 574 U/L (15-37) Alanine Aminotransferase (ALT/SGPT) 133 U/L (16-63) Alkaline Phosphatase 271 U/L (46-116) Total Protein 4.5 g/dL (6.4-8.2) Albumin 1.5 g/dL (3.4-5.0) Test 08/29/18 03:50 White Blood Count 11.3 x10^3/uL (4.0-11.0) Red Blood Count 2.86 x10^6/uL (4.30-5.70) Hemoglobin 8.2 g/dL (13.0-17.5) Hematocrit 24.0 % (39.0-53.0) Mean Corpuscular Volume 84 fL (79-100) Mean Corpuscular Hemoglobin 29 pg (25-35) Mean Corpuscular Hemoglobin Concent 34 g/dL (31-37) Red Cell Distribution Width 15.9 % (11.5-14.5) Platelet Count 58 x10^3/uL (140-400) Neutrophils (%) (Auto) 63 % (31-73) Lymphocytes (%) (Auto) 23 % (24-48) Monocytes (%) (Auto) 12 % (0-9) Eosinophils (%) (Auto) 0 % (0-3) Basophils (%) (Auto) 2 % (0-3) Neutrophils # (Auto) 7.1 x10^3uL (1.8-7.7) Lymphocytes # (Auto) 2.6 x10^3/uL (1.0-4.8) Monocytes # (Auto) 1.3 x10^3/uL (0.0-1.1) Eosinophils # (Auto) 0.0 x10^3/uL (0.0-0.7) Basophils # (Auto) 0.3 x10^3/uL (0.0-0.2) Sodium Level 136 mmol/L (136-145) Potassium Level 3.5 mmol/L (3.5-5.1) Chloride Level 96 mmol/L (98-107) Carbon Dioxide Level 32 mmol/L (21-32) Anion Gap 8 (6-14) Blood Urea Nitrogen 55 mg/dL (8-26) Creatinine 5.2 mg/dL (0.7-1.3) Estimated GFR (Cockcroft-Gault) 11.7 BUN/Creatinine Ratio 11 (6-20) Glucose Level 111 mg/dL (70-99) Calcium Level 7.1 mg/dL (8.5-10.1) Total Bilirubin 6.5 mg/dL (0.2-1.0) Aspartate Amino Transf (AST/SGOT) 459 U/L (15-37) Alanine Aminotransferase (ALT/SGPT) 110 U/L (16-63) Alkaline Phosphatase 289 U/L (46-116) Total Protein 5.1 g/dL (6.4-8.2) Albumin 2.2 g/dL (3.4-5.0) Albumin/Globulin Ratio 0.8 (1.0-1.7) Laboratory Tests Test 08/29/18 03:50 White Blood Count 11.3 x10^3/uL (4.0-11.0) Red Blood Count 2.86 x10^6/uL (4.30-5.70) Hemoglobin 8.2 g/dL (13.0-17.5) Hematocrit 24.0 % (39.0-53.0) Mean Corpuscular Volume 84 fL (79-100) Mean Corpuscular Hemoglobin 29 pg (25-35) Mean Corpuscular Hemoglobin Concent 34 g/dL (31-37) Red Cell Distribution Width 15.9 % (11.5-14.5) Platelet Count 58 x10^3/uL (140-400) Neutrophils (%) (Auto) 63 % (31-73) Lymphocytes (%) (Auto) 23 % (24-48) Monocytes (%) (Auto) 12 % (0-9) Eosinophils (%) (Auto) 0 % (0-3) Basophils (%) (Auto) 2 % (0-3) Neutrophils # (Auto) 7.1 x10^3uL (1.8-7.7) Lymphocytes # (Auto) 2.6 x10^3/uL (1.0-4.8) Monocytes # (Auto) 1.3 x10^3/uL (0.0-1.1) Eosinophils # (Auto) 0.0 x10^3/uL (0.0-0.7) Basophils # (Auto) 0.3 x10^3/uL (0.0-0.2) Sodium Level 136 mmol/L (136-145) Potassium Level 3.5 mmol/L (3.5-5.1) Chloride Level 96 mmol/L (98-107) Carbon Dioxide Level 32 mmol/L (21-32) Anion Gap 8 (6-14) Blood Urea Nitrogen 55 mg/dL (8-26) Creatinine 5.2 mg/dL (0.7-1.3) Estimated GFR (Cockcroft-Gault) 11.7 BUN/Creatinine Ratio 11 (6-20) Glucose Level 111 mg/dL (70-99) Calcium Level 7.1 mg/dL (8.5-10.1) Total Bilirubin 6.5 mg/dL (0.2-1.0) Aspartate Amino Transf (AST/SGOT) 459 U/L (15-37) Alanine Aminotransferase (ALT/SGPT) 110 U/L (16-63) Alkaline Phosphatase 289 U/L (46-116) Total Protein 5.1 g/dL (6.4-8.2) Albumin 2.2 g/dL (3.4-5.0) Albumin/Globulin Ratio 0.8 (1.0-1.7) Microbiology 08/26/18 Blood Culture - Preliminary, Resulted NO GROWTH AFTER 2 DAYS 08/25/18 Throat Culture - Final, Complete 08/25/18 - Final, Complete Medications Current Medications Sodium Chloride 1,000 ml @ 1,000 mls/hr 1X ONCE IV Last administered on 08/25/18at 20:38; Start 08/25/18 at 19:15; Stop 08/25/18 at 20:14; Status DC Ibuprofen (Motrin) 600 mg 1X ONCE PO Last administered on 08/25/18at 20:38; Start 08/25/18 at 19:45; Stop 08/25/18 at 19:49; Status DC Sodium Chloride 1,000 ml @ 1,000 mls/hr 1X ONCE IV Last administered on 08/25/18at 20:30; Start 08/25/18 at 20:30; Stop 08/25/18 at 21:29; Status DC Ceftriaxone Sodium (Rocephin) 1 gm 1X ONCE IVP Last administered on 08/25/18at 20:36; Start 08/25/18 at 20:30; Stop 08/25/18 at 20:31; Status DC Vancomycin HCl 2 gm/Sodium Chloride 500 ml @ 250 mls/hr 1X ONCE IV Last administered on 08/25/18at 23:10; Start 08/25/18 at 21:30; Stop 08/25/18 at 23:29; Status DC Sodium Chloride 1,000 ml @ 1,000 mls/hr 1X ONCE IV Last administered on 08/25/18at 23:51; Start 08/25/18 at 21:00; Stop 08/25/18 at 21:59; Status DC Piperacillin Sod/ Tazobactam Sod 4.5 gm/Sodium Chloride 100 ml @ 200 mls/hr 1X ONCE IV ; Start 08/25/18 at 21:15; Stop 08/25/18 at 21:44; Status DC Aztreonam (Azactam) 2 gm 1X ONCE IVP Last administered on 08/25/18at 21:15; Start 08/25/18 at 21:15; Stop 08/25/18 at 21:16; Status DC Magnesium Sulfate 50 ml @ 25 mls/hr 1X ONCE IV Last administered on 08/25/18at 23:51; Start 08/25/18 at 21:15; Stop 08/25/18 at 23:14; Status DC Ondansetron HCl (Zofran) 4 mg PRN Q8HRS PRN IV NAUSEA/VOMITING; Start 08/25/18 at 21:15; Stop 08/26/18 at 21:14; Status DC Acetaminophen (Tylenol) 650 mg PRN Q4HRS PRN PO FEVER; Start 08/25/18 at 21:15; Stop 08/26/18 at 21:14; Status DC Sodium Chloride 1,000 ml @ 125 mls/hr 1X ONCE IV Last administered on 08/25/18at 23:09; Start 08/25/18 at 21:15; Stop 08/26/18 at 05:14; Status DC Daptomycin 610 mg/ Sodium Chloride 50 ml @ 100 mls/hr QODAY IV Last administered on 08/27/18at 08:59; Start 08/27/18 at 09:00; Stop 08/28/18 at 15:40; Status DC Meropenem 500 mg/ Sodium Chloride 50 ml @ 100 mls/hr 1X ONCE IV Last administered on 08/25/18at 22:12; Start 08/25/18 at 22:00; Stop 08/25/18 at 22:29; Status DC Doxycycline Hyclate 100 mg/ Dextrose 100 ml @ 50 mls/hr Q12HR IV Last administered on 08/29/18at 07:45; Start 08/26/18 at 09:00 Meropenem 500 mg/ Sodium Chloride 50 ml @ 100 mls/hr DAILY IV Last administered on 08/28/18at 08:01; Start 08/26/18 at 09:00 Sodium Chloride (Normal Saline Flush) 10 ml QSHIFT PRN IV AFTER MEDS AND BLOOD DRAWS; Start 08/26/18 at 09:15 Norepinephrine Bitartrate 250 ml @ 0 mls/hr CONT PRN IV PER PROTOCOL Last administered on 08/27/18at 10:21; Start 08/26/18 at 09:15 Famotidine (Pepcid) 20 mg DAILY PO Last administered on 08/27/18at 08:14; Start 08/26/18 at 12:00; Stop 08/27/18 at 14:36; Status DC Sodium Chloride 1,000 ml @ 1,000 mls/hr Q1H PRN IV hypotension; Start 08/26/18 at 11:51; Stop 08/26/18 at 17:50; Status DC Sodium Chloride (Normal Saline Flush) 10 ml 1X PRN PRN IV AP catheter pack; Start 08/26/18 at 12:00; Stop 08/27/18 at 11:59; Status DC Sodium Chloride (Normal Saline Flush) 10 ml 1X PRN PRN IV [employer] catheter pack; Start 08/26/18 at 12:00; Stop 08/27/18 at 11:59; Status DC Sodium Chloride 1,000 ml @ 400 mls/hr Q2H30M PRN IV PATENCY; Start 08/26/18 at 11:51; Stop 08/26/18 at 23:50; Status DC Info (PHARMACY MONITORING -- do not chart) 1 each PRN DAILY PRN MC SEE COMMENTS; Start 08/26/18 at 12:00; Status UNV Info (PHARMACY MONITORING -- do not chart) 1 each PRN DAILY PRN MC SEE COMMENTS; Start 08/26/18 at 12:00 Lidocaine/Sodium Bicarbonate (Buffered Lidocaine 1%) 4 ml 1X ONCE INJ Last administered on 08/26/18at 12:45; Start 08/26/18 at 12:45; Stop 08/26/18 at 12:48; Status DC Heparin Sodium (Porcine) (Heparin Sodium) 2,500 unit 1X ONCE INT CAT Last administered on 08/26/18at 12:45; Start 08/26/18 at 12:45; Stop 08/26/18 at 12:48; Status DC Lidocaine/Sodium Bicarbonate (Buffered Lidocaine 1%) 3 ml STK-MED ONCE .ROUTE ; Start 08/26/18 at 12:49; Stop 08/26/18 at 12:50; Status DC Heparin Sodium (Porcine) (Heparin Sodium) 10,000 unit STK-MED ONCE .ROUTE ; Start 08/26/18 at 12:49; Stop 08/26/18 at 12:50; Status DC Lactobacillus Rhamnosus (Culturelle) 1 cap BID PO Last administered on 08/28/18at 08:01; Start 08/26/18 at 21:00 Acetaminophen (Tylenol) 325 mg STK-MED ONCE PO ; Start 08/27/18 at 00:43; Stop 08/27/18 at 00:44; Status DC Sodium Chloride 1,000 ml @ 1,000 mls/hr 1X ONCE IV Last administered on 08/27/18at 11:05; Start 08/27/18 at 10:30; Stop 08/27/18 at 11:29; Status DC Sodium Chloride 1,000 ml @ 1,000 mls/hr Q1H PRN IV hypotension; Start 08/27/18 at 11:28; Stop 08/27/18 at 17:27; Status DC Albumin Human 200 ml @ 200 mls/hr 1X PRN PRN IV Hypotension; Start 08/27/18 at 11:30; Stop 08/27/18 at 17:29; Status DC Sodium Chloride (Normal Saline Flush) 10 ml 1X PRN PRN IV AP catheter pack; Start 08/27/18 at 11:30; Stop 08/28/18 at 11:29; Status DC Sodium Chloride (Normal Saline Flush) 10 ml 1X PRN PRN IV S[employer] DES[employer]ER catheter pack; Start 08/27/18 at 11:30; Stop 08/28/18 at 11:29; Status DC Sodium Chloride 1,000 ml @ 400 mls/hr Q2H30M PRN IV PATENCY; Start 08/27/18 at 11:28; Stop 08/27/18 at 23:27; Status DC Info (PHARMACY MONITORING -- do not chart) 1 each PRN DAILY PRN MC SEE COMMENTS; Start 08/27/18 at 11:30; Status UNV Info (PHARMACY MONITORING -- do not chart) 1 each PRN DAILY PRN MC SEE COMMENTS; Start 08/27/18 at 11:30; Status UNV Famotidine (Pepcid) 20 mg Q48H PO ; Start 08/29/18 at 09:00 Acetaminophen (Tylenol) 650 mg PRN Q6HRS PRN PO pain/fever; Start 08/27/18 at 21:15 Acetaminophen (Tylenol Supp) 650 mg PRN Q6HRS PRN MO MILD PAIN / TEMP Last administered on 08/27/18at 21:25; Start 08/27/18 at 21:15 Fentanyl Citrate (Fentanyl 2ml Vial) 25 mcg 1X ONCE IV Last administered on 08/28/18at 08:54; Start 08/28/18 at 08:45; Stop 08/28/18 at 08:47; Status DC Lidocaine/Sodium Bicarbonate (Buffered Lidocaine 1%) 3 ml STK-MED ONCE .ROUTE ; Start 08/28/18 at 09:55; Stop 08/28/18 at 09:56; Status DC Lidocaine HCl (Glydo (Lidocaine) Jelly) 1 meng 1X STAT MM Last administered on 08/28/18at 10:16; Start 08/28/18 at 10:16; Stop 08/28/18 at 10:19; Status DC Benzocaine (Hurricaine One) 1 spray 1X STAT MM Last administered on 08/28/18at 10:16; Start 08/28/18 at 10:16; Stop 08/28/18 at 10:19; Status DC Lidocaine/Sodium Bicarbonate (Buffered Lidocaine 1%) 3 ml 1X ONCE INJ ; Start 08/28/18 at 10:30; Stop 08/28/18 at 10:31; Status DC Haloperidol Lactate (Haldol Inj) 5 mg PRN Q6HRS PRN IVP AGITATION Last administered on 08/29/18at 07:45; Start 08/28/18 at 12:00 Fentanyl Citrate (Fentanyl 2ml Vial) 50 mcg PRN Q4HRS PRN IV PAIN Last administered on 08/28/18at 21:44; Start 08/28/18 at 15:30 Sodium Chloride 1,000 ml @ 1,000 mls/hr Q1H PRN IV hypotension; Start 08/28/18 at 14:00; Stop 08/28/18 at 19:59; Status DC Albumin Human 200 ml @ 200 mls/hr 1X PRN PRN IV Hypotension Last administered on 08/28/18at 14:50; Start 08/28/18 at 14:00 Sodium Chloride 1,000 ml @ 400 mls/hr Q2H30M PRN IV PATENCY; Start 08/28/18 at 14:00; Stop 08/29/18 at 01:59; Status DC Info (PHARMACY MONITORING -- do not chart) 1 each PRN DAILY PRN MC SEE COMMENTS ; Start 08/28/18 at 15:30; Status UNV Info (PHARMACY MONITORING -- do not chart) 1 each PRN DAILY PRN MC SEE COMMENTS; Start 08/28/18 at 15:30; Status UNV Daptomycin 610 mg/ Sodium Chloride 50 ml @ 100 mls/hr Q48H IV ; Start 08/30/18 at 16:00 Active Scripts Active Potassium Chloride 20 Meq Tablet.er 20 Meq PO DAILY Orphenadrine Citrate 100 Mg Tablet.er 100 Mg PO Q12HR Anaprox Ds (Naproxen Sodium) 550 Mg Tablet 550 Mg PO Q12HR Reported Prednisone 20 Mg Tablet 1 Tab PO DAILY Hydrochlorothiazide Tablet (Hydrochlorothiazide) 12.5 Mg Tablet 12.5 Mg PO DAILY Shilpi Allergy (Fexofenadine Hcl) 180 Mg Tablet 1 Tab PO DAILY Vitals/I & O Vital Sign - Last 24 Hours 08/28/18 08/28/18 08/28/18 08/28/18 09:00 09:00 10:00 11:00 Pulse 94 100 98 Resp 49 44 40 B/P (MAP) 135/76 (95) 129/68 (88) Pulse Ox 96 93 96 93 O2 Delivery BiPAP/CPAP BiPAP/CPAP BiPAP/CPAP NonRebreather Mask 08/28/18 08/28/18 08/28/18 08/28/18 12:00 12:00 12:15 13:00 Temp 97.9 97.9 Pulse 94 66 Resp 39 22 B/P (MAP) 106/59 (75) 104/54 (71) Pulse Ox 96 98 97 O2 Delivery NonRebreather Mask Bi-pap NonRebreather Mask NonRebreather Mask O2 Flow Rate 5.0 08/28/18 08/28/18 08/28/18 08/28/18 14:00 15:00 16:00 16:00 Temp 99.4 99.4 Pulse 96 92 102 Resp 48 44 B/P (MAP) 86/58 (67) 110/60 (77) 124/74 (91) Pulse Ox 98 99 99 O2 Delivery NonRebreather Mask NonRebreather Mask Non-Rebreather NonRebreather Mask O2 Flow Rate 5.0 08/28/18 08/28/18 08/28/18 08/28/18 17:00 18:00 19:00 20:00 Pulse 68 92 92 Resp 23 27 27 B/P (MAP) 122/67 (85) 120/84 (96) 134/78 (96) Pulse Ox 96 100 99 O2 Delivery NonRebreather Mask NonRebreather Mask NonRebreather Mask Non- Rebreather O2 Flow Rate 15.0 08/28/18 08/28/18 08/28/18 08/28/18 20:00 21:00 21:44 22:00 Temp 99.9 99.9 Pulse 90 98 94 Resp 27 37 12 38 B/P (MAP) 138/75 (96) 128/64 (85) 132/70 (90) Pulse Ox 99 99 100 94 O2 Delivery NonRebreather Mask NonRebreather Mask NonRebreather Mask NonRebreather Mask O2 Flow Rate 15.0 08/28/18 08/28/18 08/29/18 08/29/18 22:14 23:00 00:01 00:01 Temp 97.7 97.7 Pulse 92 88 Resp 23 37 34 B/P (MAP) 107/62 (77) 130/68 (88) Pulse Ox 92 92 100 O2 Delivery NonRebreather Mask NonRebreather Mask NonRebreather Mask Non- Rebreather O2 Flow Rate 15.0 15.0 15.0 08/29/18 08/29/18 08/29/18 08/29/18 01:00 02:00 03:00 04:00 Temp 98.5 98.5 Pulse 91 90 86 90 Resp 32 32 44 B/P (MAP) 113/54 (73) 122/59 (80) 111/58 (75) 124/61 (82) Pulse Ox 99 99 96 96 O2 Delivery NonRebreather Mask NonRebreather Mask NonRebreather Mask NonRebreather Mask O2 Flow Rate 15.0 15.0 15.0 15.0 08/29/18 08/29/18 08/29/18 08/29/18 04:00 05:00 06:00 07:00 Pulse 88 90 85 Resp 39 37 27 B/P (MAP) 104/52 (69) 119/64 (82) 117/59 (78) Pulse Ox 99 97 96 O2 Delivery Non-Rebreather NonRebreather Mask NonRebreather Mask NonRebreather Mask O2 Flow Rate 15.0 15.0 15.0 15.0 08/29/18 08/29/18 08:00 08:00 Temp 97.8 97.8 Pulse 82 Resp 25 B/P (MAP) 110/61 (77) Pulse Ox 100 O2 Delivery NonRebreather Mask Non-Rebreather O2 Flow Rate 15.0 15.0 Intake and Output 08/28/18 08/28/18 08/29/18 14:59 22:59 06:59 Intake Total 150 ml 250 ml Output Total 100 ml 3800 ml 0 ml Balance 50 ml -3800 ml 250 ml JAVON COSME MD August 29, 2018 08:55
--- NOTE | 2018-08-29 08:59 | PDOC ---
PULMONARY PROGRESS NOTES Subjective PT OFF BIPAP HAD LP EARLIER TODAY Vitals Vital Signs Date Time Temp Pulse Resp B/P (MAP) Pulse Ox O2 Delivery O2 Flow Rate FiO2 08/29/18 08:00 Non-Rebreather 15.0 08/29/18 08:00 97.8 82 25 110/61 (77) 100 97.8 General: Alert, Confused, Lethargic Lungs: Crackles Cardiovascular: S1, S2 Abdomen: Soft Extremities: No Edema Skin: Warm Labs Laboratory Tests Test 08/27/18 09:20 08/27/18 09:22 08/28/18 05:45 08/28/18 08:35 Stool Occult Blood Positive (NEG) O2 Saturation 92 % (92-99) 95 % (92-99) Arterial Blood pH 7.37 (7.35-7.45) 7.44 (7.35-7.45) Arterial Blood pCO2 at Patient Temp 24 mmHg (35-46) 37 mmHg (35-46) Arterial Blood pO2 at Patient Temp 71 mmHg (75-108) 84 mmHg (75-108) Arterial Blood HCO3 14 mmol/L (21-28) 25 mmol/L (21-28) Arterial Blood Base Excess -10 mmol/L (-3-3) 1 mmol/L (-3-3) FiO2 36 40 White Blood Count 13.7 x10^3/uL (4.0-11.0) Red Blood Count 3.59 x10^6/uL (4.30-5.70) Hemoglobin 10.5 g/dL (13.0-17.5) Hematocrit 30.2 % (39.0-53.0) Mean Corpuscular Volume 84 fL (79-100) Mean Corpuscular Hemoglobin 29 pg (25-35) Mean Corpuscular Hemoglobin Concent 35 g/dL (31-37) Red Cell Distribution Width 16.1 % (11.5-14.5) Platelet Count 47 x10^3/uL (140-400) Neutrophils (%) (Auto) 73 % (31-73) Lymphocytes (%) (Auto) 7 % (24-48) Monocytes (%) (Auto) 20 % (0-9) Eosinophils (%) (Auto) 0 % (0-3) Basophils (%) (Auto) 0 % (0-3) Neutrophils # (Auto) 9.9 x10^3uL (1.8-7.7) Lymphocytes # (Auto) 0.9 x10^3/uL (1.0-4.8) Monocytes # (Auto) 2.7 x10^3/uL (0.0-1.1) Eosinophils # (Auto) 0.0 x10^3/uL (0.0-0.7) Basophils # (Auto) 0.0 x10^3/uL (0.0-0.2) Sodium Level 132 mmol/L (136-145) Potassium Level 3.6 mmol/L (3.5-5.1) Chloride Level 94 mmol/L (98-107) Carbon Dioxide Level 25 mmol/L (21-32) Anion Gap 13 (6-14) Blood Urea Nitrogen 65 mg/dL (8-26) Creatinine 5.3 mg/dL (0.7-1.3) Estimated GFR (Cockcroft-Gault) 11.4 Glucose Level 135 mg/dL (70-99) Calcium Level 6.6 mg/dL (8.5-10.1) Phosphorus Level 5.0 mg/dL (2.6-4.7) Magnesium Level 2.0 mg/dL (1.8-2.4) Total Bilirubin 6.2 mg/dL (0.2-1.0) Direct Bilirubin 5.9 mg/dL (0.0-0.2) Aspartate Amino Transf (AST/SGOT) 574 U/L (15-37) Alanine Aminotransferase (ALT/SGPT) 133 U/L (16-63) Alkaline Phosphatase 271 U/L (46-116) Total Protein 4.5 g/dL (6.4-8.2) Albumin 1.5 g/dL (3.4-5.0) Test 08/29/18 03:50 White Blood Count 11.3 x10^3/uL (4.0-11.0) Red Blood Count 2.86 x10^6/uL (4.30-5.70) Hemoglobin 8.2 g/dL (13.0-17.5) Hematocrit 24.0 % (39.0-53.0) Mean Corpuscular Volume 84 fL (79-100) Mean Corpuscular Hemoglobin 29 pg (25-35) Mean Corpuscular Hemoglobin Concent 34 g/dL (31-37) Red Cell Distribution Width 15.9 % (11.5-14.5) Platelet Count 58 x10^3/uL (140-400) Neutrophils (%) (Auto) 63 % (31-73) Lymphocytes (%) (Auto) 23 % (24-48) Monocytes (%) (Auto) 12 % (0-9) Eosinophils (%) (Auto) 0 % (0-3) Basophils (%) (Auto) 2 % (0-3) Neutrophils # (Auto) 7.1 x10^3uL (1.8-7.7) Lymphocytes # (Auto) 2.6 x10^3/uL (1.0-4.8) Monocytes # (Auto) 1.3 x10^3/uL (0.0-1.1) Eosinophils # (Auto) 0.0 x10^3/uL (0.0-0.7) Basophils # (Auto) 0.3 x10^3/uL (0.0-0.2) Sodium Level 136 mmol/L (136-145) Potassium Level 3.5 mmol/L (3.5-5.1) Chloride Level 96 mmol/L (98-107) Carbon Dioxide Level 32 mmol/L (21-32) Anion Gap 8 (6-14) Blood Urea Nitrogen 55 mg/dL (8-26) Creatinine 5.2 mg/dL (0.7-1.3) Estimated GFR (Cockcroft-Gault) 11.7 BUN/Creatinine Ratio 11 (6-20) Glucose Level 111 mg/dL (70-99) Calcium Level 7.1 mg/dL (8.5-10.1) Total Bilirubin 6.5 mg/dL (0.2-1.0) Aspartate Amino Transf (AST/SGOT) 459 U/L (15-37) Alanine Aminotransferase (ALT/SGPT) 110 U/L (16-63) Alkaline Phosphatase 289 U/L (46-116) Total Protein 5.1 g/dL (6.4-8.2) Albumin 2.2 g/dL (3.4-5.0) Albumin/Globulin Ratio 0.8 (1.0-1.7) Laboratory Tests Test 08/29/18 03:50 White Blood Count 11.3 x10^3/uL (4.0-11.0) Red Blood Count 2.86 x10^6/uL (4.30-5.70) Hemoglobin 8.2 g/dL (13.0-17.5) Hematocrit 24.0 % (39.0-53.0) Mean Corpuscular Volume 84 fL (79-100) Mean Corpuscular Hemoglobin 29 pg (25-35) Mean Corpuscular Hemoglobin Concent 34 g/dL (31-37) Red Cell Distribution Width 15.9 % (11.5-14.5) Platelet Count 58 x10^3/uL (140-400) Neutrophils (%) (Auto) 63 % (31-73) Lymphocytes (%) (Auto) 23 % (24-48) Monocytes (%) (Auto) 12 % (0-9) Eosinophils (%) (Auto) 0 % (0-3) Basophils (%) (Auto) 2 % (0-3) Neutrophils # (Auto) 7.1 x10^3uL (1.8-7.7) Lymphocytes # (Auto) 2.6 x10^3/uL (1.0-4.8) Monocytes # (Auto) 1.3 x10^3/uL (0.0-1.1) Eosinophils # (Auto) 0.0 x10^3/uL (0.0-0.7) Basophils # (Auto) 0.3 x10^3/uL (0.0-0.2) Sodium Level 136 mmol/L (136-145) Potassium Level 3.5 mmol/L (3.5-5.1) Chloride Level 96 mmol/L (98-107) Carbon Dioxide Level 32 mmol/L (21-32) Anion Gap 8 (6-14) Blood Urea Nitrogen 55 mg/dL (8-26) Creatinine 5.2 mg/dL (0.7-1.3) Estimated GFR (Cockcroft-Gault) 11.7 BUN/Creatinine Ratio 11 (6-20) Glucose Level 111 mg/dL (70-99) Calcium Level 7.1 mg/dL (8.5-10.1) Total Bilirubin 6.5 mg/dL (0.2-1.0) Aspartate Amino Transf (AST/SGOT) 459 U/L (15-37) Alanine Aminotransferase (ALT/SGPT) 110 U/L (16-63) Alkaline Phosphatase 289 U/L (46-116) Total Protein 5.1 g/dL (6.4-8.2) Albumin 2.2 g/dL (3.4-5.0) Albumin/Globulin Ratio 0.8 (1.0-1.7) Medications Active Scripts Medications Dose Route/Sig Max Daily Dose Days Date Category Prednisone 20 Mg Tablet 1 Tab PO DAILY 08/26/18 Reported Hydrochlorothiazide Tablet (Hydrochlorothiazide) 12.5 Mg Tablet 12.5 Mg PO DAILY 08/26/18 Reported Shilpi Allergy (Fexofenadine Hcl) 180 Mg Tablet 1 Tab PO DAILY 08/26/18 Reported Potassium Chloride 20 Meq Tablet.er 20 Meq PO DAILY 08/24/18 Rx Orphenadrine Citrate 100 Mg Tablet.er 100 Mg PO Q12HR 02/03/16 Rx Anaprox Ds (Naproxen Sodium) 550 Mg Tablet 550 Mg PO Q12HR 02/03/16 Rx Impression . IMPRESSION: 1. Acute hypoxemic respiratory failure, multifactorial, suspect acute lung injury from recent infection. 2. Suspect tick-borne illness. 3. Fever. 4. Lactic acidosis. 5. Acute renal failure. 6. Acute hepatic injury. 7. Thrombocytopenia. 8. Hemochromatosis. 9. ACUTE TOXIC MET ENCEPH POA Plan . LP TODAY CONTINUE SUPPORT HALDOL PRN D/W RN PRN BIPAP TUBE FEEDING IF NOT EATING ANTI BX PER ID ABG AND LABS NOTED SEROLOGY PENDING CCT 25 MIN ANISH DENNIS MD August 29, 2018 08:59
[2018-08-29] MEDS ORDERED: FAMOTIDINE 20 MG TABLET. PO SCH (09:00)
--- NOTE | 2018-08-29 09:27 | RAD ---
EXAM: Head CT without contrast. HISTORY: Mental status changes. TECHNIQUE: Computed tomographic images of the head were obtained without contrast. *One or more of the following individualized dose reduction techniques were utilized for this examination: 1. Automated exposure control. 2. Adjustment of the mA and/or kV according to patient size. 3. Use of iterative reconstruction technique. COMPARISON: 08/24/2018. FINDINGS: The exam is limited due to motion. There is no convincing acute or subacute hemorrhage. There is no mass effect or midline shift. There is no hydrocephalus. There are areas of decreased attenuation within the cerebral white matter, nonspecific and likely related to chronic small vessel disease. There is ethmoid sinus mucosal thickening. The mastoid air cells are clear. There is no suspicious calvarial lesion. IMPRESSION: 1. Limited exam due to motion. There is no convincing acute intracranial finding. Note is made that MRI is more sensitive for acute infarction. 2. Decreased attenuation within the cerebral white matter, likely due to chronic small vessel disease. This appears to be advanced for patient age. Electronically signed by: Gilma Barahona MD (08/29/2018 9:24 AM) [id number]
--- NOTE | 2018-08-29 09:40 | PDOC ---
SUBJECTIVE ROS Mental status somewhat improved per RN No UOP, On non -rebreather OBJECTIVE Vital Signs Vital Signs Date Time Temp Pulse Resp B/P (MAP) Pulse Ox O2 Delivery O2 Flow Rate FiO2 08/29/18 08:00 Non-Rebreather 15.0 08/29/18 08:00 97.8 82 25 110/61 (77) 100 97.8 I & 0 Intake and Output 08/29/18 06:59 Intake Total 400 ml Output Total 3900 ml Balance -3500 ml Intake Oral 0 ml IV Total 150 ml Other 250 ml Output Urine Total 0 ml Gastric Drainage Total 900 ml Other 3000 ml PHYSICAL EXAM Physical Exam GENERAL: Sleeping, arousable HEENT: OM moist , Non re-breather NECK: Supple. LUNGS: Clear to auscultation. HEART: S1 and S2. ABDOMEN: Obese, soft, nontender with bowel sounds present. EXTREMITIES: No gross edema or cyanosis. SKIN: Warm without rash. Left knee has several scabs/scarring. NEUROLOGIC: Alert and oriented x 3 - No rose DIAGNOSIS/ASSESSMENT Assessment & Plan RADHA - acute tubular necrosis, anuric Abdominal ultrasound Rt Kidney and UA unremarkable CT scan- Unremarkable Kidneys , gastric distension Initiated on HD 08/26 due to Azotemia and Fluid - HD x3 Strict I/O ( doesn't have Rose) -anuric E-Lytes and acid base stable, Monitor Hyponatremia due to the above Normal Metabolic acidosis Resolved Corrected Ca Normal Increased LFT's , Alb low Anemia- drop on hgb Hem following Abdominal Pain /Distension- Has NGT , 1200 + Residual Thrombocytopenia. As per Hematology/Oncology, a peripheral smear does not reveal schistocytes. Discussed with RN and at bedside COMMENT/RELEVANT DATA Meds Current Medications Medications (Trade) Dose Ordered Sig/Noemi Start Time Stop Time Status Last Admin Dose Admin Acetaminophen (Tylenol Supp) 650 mg PRN Q6HRS PRN 08/27/18 21:15 08/27/18 21:25 650 MG Acetaminophen (Tylenol) 650 mg PRN Q6HRS PRN 08/27/18 21:15 Albumin Human 200 ml @ 200 mls/hr 1X PRN PRN 08/28/18 14:00 08/28/18 14:50 200 MLS/HR Aztreonam (Azactam) 2 gm 1X ONCE 08/25/18 21:15 08/25/18 21:16 DC 5/18/19 21:15 2 GM Benzocaine (Hurricaine One) 1 spray 1X STAT 08/28/18 10:16 08/28/18 10:19 DC 08/28/18 10:16 1 SPRAY Ceftriaxone Sodium (Rocephin) 1 gm 1X ONCE 08/25/18 20:30 08/25/18 20:31 DC 08/25/18 20:36 1 GM Daptomycin 610 mg/ Sodium Chloride 50 ml @ 100 mls/hr Q48H 08/30/18 16:00 Doxycycline Hyclate 100 mg/ Dextrose 100 ml @ 50 mls/hr Q12HR 08/26/18 09:00 08/29/18 07:45 50 MLS/HR Famotidine (Pepcid) 20 mg Q48H 08/29/18 09:00 Fentanyl Citrate (Fentanyl 2ml Vial) 50 mcg PRN Q4HRS PRN 08/28/18 15:30 08/28/18 21:44 50 MCG Haloperidol Lactate (Haldol Inj) 5 mg PRN Q6HRS PRN 08/28/18 12:00 08/29/18 07:45 5 MG Heparin Sodium (Porcine) (Heparin Sodium) 10,000 unit STK-MED ONCE 08/26/18 12:49 08/26/18 12:50 DC Ibuprofen (Motrin) 600 mg 1X ONCE 08/25/18 19:45 08/25/18 19:49 DC 08/25/18 20:38 600 MG Info (PHARMACY MONITORING -- do not chart) 1 each PRN DAILY PRN 08/28/18 15:30 UNV Lactobacillus Rhamnosus (Culturelle) 1 cap BID 08/26/18 21:00 08/28/18 08:01 1 CAP Lidocaine HCl (Glydo (Lidocaine) Jelly) 1 meng 1X STAT 08/28/18 10:16 08/28/18 10:19 DC 08/28/18 10:16 1 MENG Lidocaine/Sodium Bicarbonate (Buffered Lidocaine 1%) 3 ml 1X ONCE 08/28/18 10:30 08/28/18 10:31 DC Magnesium Sulfate 50 ml @ 25 mls/hr 1X ONCE 08/25/18 21:15 08/25/18 23:14 DC 08/25/18 23:51 25 MLS/HR Meropenem 500 mg/ Sodium Chloride 50 ml @ 100 mls/hr DAILY 08/26/18 09:00 08/28/18 08:01 100 MLS/HR Norepinephrine Bitartrate 250 ml @ 0 mls/hr CONT PRN 08/26/18 09:15 08/27/18 10:21 1.88 MLS/HR Ondansetron HCl (Zofran) 4 mg PRN Q8HRS PRN 08/25/18 21:15 08/26/18 21:14 DC Piperacillin Sod/ Tazobactam Sod 4.5 gm/Sodium Chloride 100 ml @ 200 mls/hr 1X ONCE 08/25/18 21:15 08/25/18 21:44 DC Sodium Chloride 1,000 ml @ 400 mls/hr Q2H30M PRN 08/28/18 14:00 08/29/18 01:59 DC Sodium Chloride (Normal Saline Flush) 10 ml 1X PRN PRN 08/27/18 11:30 08/28/18 11:29 DC Vancomycin HCl 2 gm/Sodium Chloride 500 ml @ 250 mls/hr 1X ONCE 08/25/18 21:30 08/25/18 23:29 DC 08/25/18 23:10 250 MLS/HR Lab Laboratory Tests Test 08/29/18 03:50 White Blood Count 11.3 x10^3/uL (4.0-11.0) Red Blood Count 2.86 x10^6/uL (4.30-5.70) Hemoglobin 8.2 g/dL (13.0-17.5) Hematocrit 24.0 % (39.0-53.0) Mean Corpuscular Volume 84 fL (79-100) Mean Corpuscular Hemoglobin 29 pg (25-35) Mean Corpuscular Hemoglobin Concent 34 g/dL (31-37) Red Cell Distribution Width 15.9 % (11.5-14.5) Platelet Count 58 x10^3/uL (140-400) Neutrophils (%) (Auto) 63 % (31-73) Lymphocytes (%) (Auto) 23 % (24-48) Monocytes (%) (Auto) 12 % (0-9) Eosinophils (%) (Auto) 0 % (0-3) Basophils (%) (Auto) 2 % (0-3) Neutrophils # (Auto) 7.1 x10^3uL (1.8-7.7) Lymphocytes # (Auto) 2.6 x10^3/uL (1.0-4.8) Monocytes # (Auto) 1.3 x10^3/uL (0.0-1.1) Eosinophils # (Auto) 0.0 x10^3/uL (0.0-0.7) Basophils # (Auto) 0.3 x10^3/uL (0.0-0.2) Sodium Level 136 mmol/L (136-145) Potassium Level 3.5 mmol/L (3.5-5.1) Chloride Level 96 mmol/L (98-107) Carbon Dioxide Level 32 mmol/L (21-32) Anion Gap 8 (6-14) Blood Urea Nitrogen 55 mg/dL (8-26) Creatinine 5.2 mg/dL (0.7-1.3) Estimated GFR (Cockcroft-Gault) 11.7 BUN/Creatinine Ratio 11 (6-20) Glucose Level 111 mg/dL (70-99) Calcium Level 7.1 mg/dL (8.5-10.1) Total Bilirubin 6.5 mg/dL (0.2-1.0) Aspartate Amino Transf (AST/SGOT) 459 U/L (15-37) Alanine Aminotransferase (ALT/SGPT) 110 U/L (16-63) Alkaline Phosphatase 289 U/L (46-116) Total Protein 5.1 g/dL (6.4-8.2) Albumin 2.2 g/dL (3.4-5.0) Albumin/Globulin Ratio 0.8 (1.0-1.7) Results All relevant outside records, renal labs, imaging studies, telemetry/EKG's were reviewed. OG CHAVES MD August 29, 2018 09:40
[2018-08-29] MEDS: MEROPENEM 500 MG in IV NORMAL SALINE 50ML 50 ML IV SCH (10:13)
--- NOTE | 2018-08-29 10:47 | NUR ---
Dr. Cespedes here to see patient. Notified her of no urine output overnight. She is aware, does not want any interventions at this time. She will hold dialysis today and re-evaluate tomorrow.
--- NOTE | 2018-08-29 11:32 | PDOC ---
Subjective: Subjective: A little better today. No flatus/stool. Objective: Objective: Reviewed w/ RN - 1500cc out from last night, ~400 so far today - all bilious/brown. Vital Signs: Vital Signs Date Time Temp Pulse Resp B/P (MAP) Pulse Ox O2 Delivery O2 Flow Rate FiO2 08/29/18 11:00 78 30 138/78 (98) 94 Venturi Mask 08/29/18 09:00 15.0 08/29/18 08:00 97.8 97.8 Labs: Laboratory Tests Test 08/29/18 03:50 White Blood Count 11.3 x10^3/uL Red Blood Count 2.86 x10^6/uL Hemoglobin 8.2 g/dL Hematocrit 24.0 % Mean Corpuscular Volume 84 fL Mean Corpuscular Hemoglobin 29 pg Mean Corpuscular Hemoglobin Concent 34 g/dL Red Cell Distribution Width 15.9 % Platelet Count 58 x10^3/uL Neutrophils (%) (Auto) 63 % Lymphocytes (%) (Auto) 23 % Monocytes (%) (Auto) 12 % Eosinophils (%) (Auto) 0 % Basophils (%) (Auto) 2 % Neutrophils # (Auto) 7.1 x10^3uL Lymphocytes # (Auto) 2.6 x10^3/uL Monocytes # (Auto) 1.3 x10^3/uL Eosinophils # (Auto) 0.0 x10^3/uL Basophils # (Auto) 0.3 x10^3/uL Sodium Level 136 mmol/L Potassium Level 3.5 mmol/L Chloride Level 96 mmol/L Carbon Dioxide Level 32 mmol/L Anion Gap 8 Blood Urea Nitrogen 55 mg/dL Creatinine 5.2 mg/dL Estimated GFR (Cockcroft-Gault) 11.7 BUN/Creatinine Ratio 11 Glucose Level 111 mg/dL Calcium Level 7.1 mg/dL Total Bilirubin 6.5 mg/dL Aspartate Amino Transf (AST/SGOT) 459 U/L Alanine Aminotransferase (ALT/SGPT) 110 U/L Alkaline Phosphatase 289 U/L Total Protein 5.1 g/dL Albumin 2.2 g/dL Albumin/Globulin Ratio 0.8 BLOOD CULTURE Preliminary NO GROWTH AFTER 3 DAYS Imaging: C/A/P CT IMPRESSION: 1. Moderate atelectasis/consolidation posteriorly in both lower lobes. 2. Gastric distention. 3. Mild nonspecific streaky inflammation in the lower retroperitoneum and pelvis. Head CT IMPRESSION: 1. Limited exam due to motion. There is no convincing acute intracranial finding. Note is made that MRI is more sensitive for acute infarction. 2. Decreased attenuation within the cerebral white matter, likely due to chronic small vessel disease. This appears to be advanced for patient age. CXR IMPRESSION: Mild bilateral perihilar infiltrates have developed suggesting pulmonary edema. PE: GEN: NAD LUNGS: CTAB HEART: RRR ABD: NABS, S/ND/NT NEURO/PSYCH: A & O 3 A/P: Suspected tick-borne illness Resp failure, RADHA, anemia (+fecal occult), thrombocytopenia, elevated LFTs Abd pain - better Gastric distention, hepatic steatosis, mild splenomegaly -- Change to IV acid-electric switch tester for now. ELVIA NOE August 29, 2018 11:32
--- NOTE | 2018-08-29 13:00 | PDOC ---
[facility] PROGRESS NOTE Chief Complaint Chief Complaint Mental status change and sepsis tick bite History of Present Illness History of Present Illness Patient seen and examined in ICU Discussed with the nurse and his He is currently on Ventimask Doesn't wake up and talk any On IV meropenem daptomycin and doxycycline We are dialyzing periodically He has 8 consultants on the case We certainly appreciate their help Vitals Vitals Vital Signs Date Time Temp Pulse Resp B/P (MAP) Pulse Ox O2 Delivery O2 Flow Rate FiO2 08/29/18 12:00 Non-Rebreather 15.0 08/29/18 12:00 98.0 53 30 117/72 (87) 93 98.0 Physical Exam Physical Exam GENERAL: Sleeping doesn't wake up HEENT: Pupils equally round, reactive. Normal conjunctivae. Oral cavity: Pharynx pink, dry. NECK: Supple. LUNGS: Clear to auscultation. HEART: S1 and S2. ABDOMEN: Obese, soft, nontender with bowel sounds present. EXTREMITIES: No gross edema or cyanosis. SKIN: Warm without rash. Left knee has several scabs/scarring. NEUROLOGIC: Alert and oriented, fluctuating MS General: Alert, No acute distress Heart: Regular rate, Normal S1, Normal S2 Lungs: Crackles Abdomen: Other (distended, tympanitic) Extremities: No clubbing, No cyanosis, No edema Skin: No significant lesion, Other (healing rash and excoriations on Left lower extremity. No obvious petechiae) Labs Labs: Laboratory Tests Test 08/29/18 03:50 White Blood Count 11.3 x10^3/uL (4.0-11.0) Red Blood Count 2.86 x10^6/uL (4.30-5.70) Hemoglobin 8.2 g/dL (13.0-17.5) Hematocrit 24.0 % (39.0-53.0) Mean Corpuscular Volume 84 fL (79-100) Mean Corpuscular Hemoglobin 29 pg (25-35) Mean Corpuscular Hemoglobin Concent 34 g/dL (31-37) Red Cell Distribution Width 15.9 % (11.5-14.5) Platelet Count 58 x10^3/uL (140-400) Neutrophils (%) (Auto) 63 % (31-73) Lymphocytes (%) (Auto) 23 % (24-48) Monocytes (%) (Auto) 12 % (0-9) Eosinophils (%) (Auto) 0 % (0-3) Basophils (%) (Auto) 2 % (0-3) Neutrophils # (Auto) 7.1 x10^3uL (1.8-7.7) Lymphocytes # (Auto) 2.6 x10^3/uL (1.0-4.8) Monocytes # (Auto) 1.3 x10^3/uL (0.0-1.1) Eosinophils # (Auto) 0.0 x10^3/uL (0.0-0.7) Basophils # (Auto) 0.3 x10^3/uL (0.0-0.2) Sodium Level 136 mmol/L (136-145) Potassium Level 3.5 mmol/L (3.5-5.1) Chloride Level 96 mmol/L (98-107) Carbon Dioxide Level 32 mmol/L (21-32) Anion Gap 8 (6-14) Blood Urea Nitrogen 55 mg/dL (8-26) Creatinine 5.2 mg/dL (0.7-1.3) Estimated GFR (Cockcroft-Gault) 11.7 BUN/Creatinine Ratio 11 (6-20) Glucose Level 111 mg/dL (70-99) Calcium Level 7.1 mg/dL (8.5-10.1) Total Bilirubin 6.5 mg/dL (0.2-1.0) Aspartate Amino Transf (AST/SGOT) 459 U/L (15-37) Alanine Aminotransferase (ALT/SGPT) 110 U/L (16-63) Alkaline Phosphatase 289 U/L (46-116) Total Protein 5.1 g/dL (6.4-8.2) Albumin 2.2 g/dL (3.4-5.0) Albumin/Globulin Ratio 0.8 (1.0-1.7) Review of Systems Review of Systems Unable to obtain patient will wake up Assessment and Plan Assessmemt and Plan Problems Medical Problems: (1) Acute renal failure Status: Acute 1. 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 severe thrombocytopenia 3. severe sepsis 4. recent tick bite 5. Altered mental status, encephalopathy, acute 6. morbid obesity 7. No acute abdominal or pelvic abnormality.BY CT 8. Minimal fatty infiltration of the liver. 9. Mild atelectasis in the bilateral lower lobes. 10. Acute renal failure 11. Mild elevation troponin i, 12. transaminitis 13. diarrhea 14. lactic acidosis 15. hx mild hypertension 16 Moderate atelectasis/consolidation posteriorly in both lower lobes. 17.Gastric distention. 18. Mild nonspecific streaky inflammation in the lower retroperitoneum and pelvis. plan blood cult iv antibiotics, emperic including doxycycline ID CONSULT nephrology consult neurology consult HEME CONSULT ICU BED PRN IV PRESSORS Ehrlichiosis antibody serology iv fluid support cardiology consult ECHO GI CONSULT ABD SONO reviewed Acute hepatitis panel stool enteric pathogens sepsis protocol lyme serology right internal jugular triple-lumen central venous catheter placed IJ 08/27 ct abd/ chest/ pelvis today reviewed Physical critically ill patient 33 min cc time Comment Review of Relevant I have reviewed the following items gera (where applicable) has been applied. Labs Laboratory Tests Test 08/28/18 05:45 08/28/18 08:35 08/29/18 03:50 White Blood Count 13.7 x10^3/uL (4.0-11.0) 11.3 x10^3/uL (4.0-11.0) Red Blood Count 3.59 x10^6/uL (4.30-5.70) 2.86 x10^6/uL (4.30-5.70) Hemoglobin 10.5 g/dL (13.0-17.5) 8.2 g/dL (13.0-17.5) Hematocrit 30.2 % (39.0-53.0) 24.0 % (39.0-53.0) Mean Corpuscular Volume 84 fL (79-100) 84 fL (79-100) Mean Corpuscular Hemoglobin 29 pg (25-35) 29 pg (25-35) Mean Corpuscular Hemoglobin Concent 35 g/dL (31-37) 34 g/dL (31-37) Red Cell Distribution Width 16.1 % (11.5-14.5) 15.9 % (11.5-14.5) Platelet Count 47 x10^3/uL (140-400) 58 x10^3/uL (140-400) Neutrophils (%) (Auto) 73 % (31-73) 63 % (31-73) Lymphocytes (%) (Auto) 7 % (24-48) 23 % (24-48) Monocytes (%) (Auto) 20 % (0-9) 12 % (0-9) Eosinophils (%) (Auto) 0 % (0-3) 0 % (0-3) Basophils (%) (Auto) 0 % (0-3) 2 % (0-3) Neutrophils # (Auto) 9.9 x10^3uL (1.8-7.7) 7.1 x10^3uL (1.8-7.7) Lymphocytes # (Auto) 0.9 x10^3/uL (1.0-4.8) 2.6 x10^3/uL (1.0-4.8) Monocytes # (Auto) 2.7 x10^3/uL (0.0-1.1) 1.3 x10^3/uL (0.0-1.1) Eosinophils # (Auto) 0.0 x10^3/uL (0.0-0.7) 0.0 x10^3/uL (0.0-0.7) Basophils # (Auto) 0.0 x10^3/uL (0.0-0.2) 0.3 x10^3/uL (0.0-0.2) Sodium Level 132 mmol/L (136-145) 136 mmol/L (136-145) Potassium Level 3.6 mmol/L (3.5-5.1) 3.5 mmol/L (3.5-5.1) Chloride Level 94 mmol/L (98-107) 96 mmol/L (98-107) Carbon Dioxide Level 25 mmol/L (21-32) 32 mmol/L (21-32) Anion Gap 13 (6-14) 8 (6-14) Blood Urea Nitrogen 65 mg/dL (8-26) 55 mg/dL (8-26) Creatinine 5.3 mg/dL (0.7-1.3) 5.2 mg/dL (0.7-1.3) Estimated GFR (Cockcroft-Gault) 11.4 11.7 Glucose Level 135 mg/dL (70-99) 111 mg/dL (70-99) Calcium Level 6.6 mg/dL (8.5-10.1) 7.1 mg/dL (8.5-10.1) Phosphorus Level 5.0 mg/dL (2.6-4.7) Magnesium Level 2.0 mg/dL (1.8-2.4) Total Bilirubin 6.2 mg/dL (0.2-1.0) 6.5 mg/dL (0.2-1.0) Direct Bilirubin 5.9 mg/dL (0.0-0.2) Aspartate Amino Transf (AST/SGOT) 574 U/L (15-37) 459 U/L (15-37) Alanine Aminotransferase (ALT/SGPT) 133 U/L (16-63) 110 U/L (16-63) Alkaline Phosphatase 271 U/L (46-116) 289 U/L (46-116) Total Protein 4.5 g/dL (6.4-8.2) 5.1 g/dL (6.4-8.2) Albumin 1.5 g/dL (3.4-5.0) 2.2 g/dL (3.4-5.0) O2 Saturation 95 % (92-99) Arterial Blood pH 7.44 (7.35-7.45) Arterial Blood pCO2 at Patient Temp 37 mmHg (35-46) Arterial Blood pO2 at Patient Temp 84 mmHg (75-108) Arterial Blood HCO3 25 mmol/L (21-28) Arterial Blood Base Excess 1 mmol/L (-3-3) FiO2 40 BUN/Creatinine Ratio 11 (6-20) Albumin/Globulin Ratio 0.8 (1.0-1.7) Laboratory Tests Test 08/29/18 03:50 White Blood Count 11.3 x10^3/uL (4.0-11.0) Red Blood Count 2.86 x10^6/uL (4.30-5.70) Hemoglobin 8.2 g/dL (13.0-17.5) Hematocrit 24.0 % (39.0-53.0) Mean Corpuscular Volume 84 fL (79-100) Mean Corpuscular Hemoglobin 29 pg (25-35) Mean Corpuscular Hemoglobin Concent 34 g/dL (31-37) Red Cell Distribution Width 15.9 % (11.5-14.5) Platelet Count 58 x10^3/uL (140-400) Neutrophils (%) (Auto) 63 % (31-73) Lymphocytes (%) (Auto) 23 % (24-48) Monocytes (%) (Auto) 12 % (0-9) Eosinophils (%) (Auto) 0 % (0-3) Basophils (%) (Auto) 2 % (0-3) Neutrophils # (Auto) 7.1 x10^3uL (1.8-7.7) Lymphocytes # (Auto) 2.6 x10^3/uL (1.0-4.8) Monocytes # (Auto) 1.3 x10^3/uL (0.0-1.1) Eosinophils # (Auto) 0.0 x10^3/uL (0.0-0.7) Basophils # (Auto) 0.3 x10^3/uL (0.0-0.2) Sodium Level 136 mmol/L (136-145) Potassium Level 3.5 mmol/L (3.5-5.1) Chloride Level 96 mmol/L (98-107) Carbon Dioxide Level 32 mmol/L (21-32) Anion Gap 8 (6-14) Blood Urea Nitrogen 55 mg/dL (8-26) Creatinine 5.2 mg/dL (0.7-1.3) Estimated GFR (Cockcroft-Gault) 11.7 BUN/Creatinine Ratio 11 (6-20) Glucose Level 111 mg/dL (70-99) Calcium Level 7.1 mg/dL (8.5-10.1) Total Bilirubin 6.5 mg/dL (0.2-1.0) Aspartate Amino Transf (AST/SGOT) 459 U/L (15-37) Alanine Aminotransferase (ALT/SGPT) 110 U/L (16-63) Alkaline Phosphatase 289 U/L (46-116) Total Protein 5.1 g/dL (6.4-8.2) Albumin 2.2 g/dL (3.4-5.0) Albumin/Globulin Ratio 0.8 (1.0-1.7) Microbiology 08/26/18 Blood Culture - Preliminary, Resulted NO GROWTH AFTER 3 DAYS 08/25/18 Throat Culture - Final, Complete 08/25/18 - Final, Complete Medications Current Medications Sodium Chloride 1,000 ml @ 1,000 mls/hr 1X ONCE IV Last administered on 08/25/18 20:38; Start 08/25/18 at 19:15; Stop 08/25/18 at 20:14; Status DC Ibuprofen (Motrin) 600 mg 1X ONCE PO Last administered on 08/25/18at 20:38; Start 08/25/18 at 19:45; Stop 08/25/18 at 19:49; Status DC Sodium Chloride 1,000 ml @ 1,000 mls/hr 1X ONCE IV Last administered on 08/25/18at 20:30; Start 08/25/18 at 20:30; Stop 08/25/18 at 21:29; Status DC Ceftriaxone Sodium (Rocephin) 1 gm 1X ONCE IVP Last administered on 08/25/18at 20:36; Start 08/25/18 at 20:30; Stop 08/25/18 at 20:31; Status DC Vancomycin HCl 2 gm/Sodium Chloride 500 ml @ 250 mls/hr 1X ONCE IV Last administered on 08/25/18at 23:10; Start 08/25/18 at 21:30; Stop 08/25/18 at 23:29; Status DC Sodium Chloride 1,000 ml @ 1,000 mls/hr 1X ONCE IV Last administered on 08/25/18at 23:51; Start 08/25/18 at 21:00; Stop 08/25/18 at 21:59; Status DC Piperacillin Sod/ Tazobactam Sod 4.5 gm/Sodium Chloride 100 ml @ 200 mls/hr 1X ONCE IV ; Start 08/25/18 at 21:15; Stop 08/25/18 at 21:44; Status DC Aztreonam (Azactam) 2 gm 1X ONCE IVP Last administered on 08/25/18at 21:15; Start 08/25/18 at 21:15; Stop 08/25/18 at 21:16; Status DC Magnesium Sulfate 50 ml @ 25 mls/hr 1X ONCE IV Last administered on 08/25/18at 23:51; Start 08/25/18 at 21:15; Stop 08/25/18 at 23:14; Status DC Ondansetron HCl (Zofran) 4 mg PRN Q8HRS PRN IV NAUSEA/VOMITING; Start 08/25/18 at 21:15; Stop 08/26/18 at 21:14; Status DC Acetaminophen (Tylenol) 650 mg PRN Q4HRS PRN PO FEVER; Start 08/25/18 at 21:15; Stop 08/26/18 at 21:14; Status DC Sodium Chloride 1,000 ml @ 125 mls/hr 1X ONCE IV Last administered on 08/25/18at 23:09; Start 08/25/18 at 21:15; Stop 08/26/18 at 05:14; Status DC Daptomycin 610 mg/ Sodium Chloride 50 ml @ 100 mls/hr QODAY IV Last administered on 08/27/18at 08:59; Start 08/27/18 at 09:00; Stop 08/28/18 at 15:40; Status DC Meropenem 500 mg/ Sodium Chloride 50 ml @ 100 mls/hr 1X ONCE IV Last adminis tered on 08/25/18at 22:12; Start 08/25/18 at 22:00; Stop 08/25/18 at 22:29; Status DC Doxycycline Hyclate 100 mg/ Dextrose 100 ml @ 50 mls/hr Q12HR IV Last administered on 08/29/18at 07:45; Start 08/26/18 at 09:00 Meropenem 500 mg/ Sodium Chloride 50 ml @ 100 mls/hr DAILY IV Last administered on 08/29/18at 10:13; Start 08/26/18 at 09:00 Sodium Chloride (Normal Saline Flush) 10 ml QSHIFT PRN IV AFTER MEDS AND BLOOD DRAWS; Start 08/26/18 at 09:15 Norepinephrine Bitartrate 250 ml @ 0 mls/hr CONT PRN IV PER PROTOCOL Last administered on 08/27/18at 10:21; Start 08/26/18 at 09:15 Famotidine (Pepcid) 20 mg DAILY PO Last administered on 08/27/18at 08:14; Start 08/26/18 at 12:00; Stop 08/27/18 at 14:36; Status DC Sodium Chloride 1,000 ml @ 1,000 mls/hr Q1H PRN IV hypotension; Start 08/26/18 at 11:51; Stop 08/26/18 at 17:50; Status DC Sodium Chloride (Normal Saline Flush) 10 ml 1X PRN PRN IV AP catheter pack; Start 08/26/18 at 12:00; Stop 08/27/18 at 11:59; Status DC Sodium Chloride (Normal Saline Flush) 10 ml 1X PRN PRN IV CASHIER GENERAL catheter pack; Start 08/26/18 at 12:00; Stop 08/27/18 at 11:59; Status DC Sodium Chloride 1,000 ml @ 400 mls/hr Q2H30M PRN IV PATENCY; Start 08/26/18 at 11:51; Stop 08/26/18 at 23:50; Status DC Info (PHARMACY MONITORING -- do not chart) 1 each PRN DAILY PRN MC SEE COMMENTS; Start 08/26/18 at 12:00; Status UNV Info (PHARMACY MONITORING -- do not chart) 1 each PRN DAILY PRN MC SEE COMMENTS; Start 08/26/18 at 12:00 Lidocaine/Sodium Bicarbonate (Buffered Lidocaine 1%) 4 ml 1X ONCE INJ Last administered on 08/26/18at 12:45; Start 08/26/18 at 12:45; Stop 08/26/18 at 12:48; Status DC Heparin Sodium (Porcine) (Heparin Sodium) 2,500 unit 1X ONCE INT CAT Last administered on 08/26/18at 12:45; Start 08/26/18 at 12:45; Stop 08/26/18 at 12:48; Status DC Lidocaine/Sodium Bicarbonate (Buffered Lidocaine 1%) 3 ml STK-MED ONCE .ROUTE ; Start 08/26/18 at 12:49; Stop 08/26/18 at 12:50; Status DC Heparin Sodium (Porcine) (Heparin Sodium) 10,000 unit STK-MED ONCE .ROUTE ; Start 08/26/18 at 12:49; Stop 08/26/18 at 12:50; Status DC Lactobacillus Rhamnosus (Culturelle) 1 cap BID PO Last administered on 08/28/18at 08:01; Start 08/26/18 at 21:00 Acetaminophen (Tylenol) 325 mg STK-MED ONCE PO ; Start 08/27/18 at 00:43; Stop 08/27/18 at 00:44; Status DC Sodium Chloride 1,000 ml @ 1,000 mls/hr 1X ONCE IV Last administered on 08/27/18at 11:05; Start 08/27/18 at 10:30; Stop 08/27/18 at 11:29; Status DC Sodium Chloride 1,000 ml @ 1,000 mls/hr Q1H PRN IV hypotension; Start 08/27/18 at 11:28; Stop 08/27/18 at 17:27; Status DC Albumin Human 200 ml @ 200 mls/hr 1X PRN PRN IV Hypotension; Start 08/27/18 at 11:30; Stop 08/27/18 at 17:29; Status DC Sodium Chloride (Normal Saline Flush) 10 ml 1X PRN PRN IV AP catheter pack; Start 08/27/18 at 11:30; Stop 08/28/18 at 11:29; Status DC Sodium Chloride (Normal Saline Flush) 10 ml 1X PRN PRN IV CASHIER GENERAL catheter pack; Start 08/27/18 at 11:30; Stop 08/28/18 at 11:29; Status DC Sodium Chloride 1,000 ml @ 400 mls/hr Q2H30M PRN IV PATENCY; Start 08/27/18 at 11:28; Stop 08/27/18 at 23:27; Status DC Info (PHARMACY MONITORING -- do not chart) 1 each PRN DAILY PRN MC SEE COMMENTS; Start 08/27/18 at 11:30; Status UNV Info (PHARMACY MONITORING -- do not chart) 1 each PRN DAILY PRN MC SEE COMMENTS; Start 08/27/18 at 11:30; Status UNV Famotidine (Pepcid) 20 mg Q48H PO ; Start 08/29/18 at 09:00; Stop 08/29/18 at 11:29; Status DC Acetaminophen (Tylenol) 650 mg PRN Q6HRS PRN PO pain/fever; Start 08/27/18 at 21:15 Acetaminophen (Tylenol Supp) 650 mg PRN Q6HRS PRN FL MILD PAIN / TEMP Last administered on 08/27/18at 21:25; Start 08/27/18 at 21:15 Fentanyl Citrate (Fentanyl 2ml Vial) 25 mcg 1X ONCE IV Last administered on 08/28/18at 08:54; Start 08/28/18 at 08:45; Stop 08/28/18 at 08:47; Status DC Lidocaine/Sodium Bicarbonate (Buffered Lidocaine 1%) 3 ml STK-MED ONCE .ROUTE ; Start 08/28/18 at 09:55; Stop 08/28/18 at 09:56; Status DC Lidocaine HCl (Glydo (Lidocaine) Jelly) 1 meng 1X STAT MM Last administered on 08/28/18at 10:16; Start 08/28/18 at 10:16; Stop 08/28/18 at 10:19; Status DC Benzocaine (Hurricaine One) 1 spray 1X STAT MM Last administered on 08/28/18at 10:16; Start 08/28/18 at 10:16; Stop 08/28/18 at 10:19; Status DC Lidocaine/Sodium Bicarbonate (Buffered Lidocaine 1%) 3 ml 1X ONCE INJ ; Start 08/28/18 at 10:30; Stop 08/28/18 at 10:31; Status DC Haloperidol Lactate (Haldol Inj) 5 mg PRN Q6HRS PRN IVP AGITATION Last administered on 08/29/18at 07:45; Start 08/28/18 at 12:00 Fentanyl Citrate (Fentanyl 2ml Vial) 50 mcg PRN Q4HRS PRN IV PAIN Last administered on 08/28/18at 21:44; Start 08/28/18 at 15:30 Sodium Chloride 1,000 ml @ 1,000 mls/hr Q1H PRN IV hypotension; Start 08/28/18 at 14:00; Stop 08/28/18 at 19:59; Status DC Albumin Human 200 ml @ 200 mls/hr 1X PRN PRN IV Hypotension Last administered on 08/28/18at 14:50; Start 08/28/18 at 14:00 Sodium Chloride 1,000 ml @ 400 mls/hr Q2H30M PRN IV PATENCY; Start 08/28/18 at 14:00; Stop 08/29/18 at 01:59; Status DC Info (PHARMACY MONITORING -- do not chart) 1 each PRN DAILY PRN MC SEE COMMENTS; Start 08/28/18 at 15:30; Status UNV Info (PHARMACY MONITORING -- do not chart) 1 each PRN DAILY PRN MC SEE COMMENTS; Start 08/28/18 at 15:30; Status UNV Daptomycin 610 mg/ Sodium Chloride 50 ml @ 100 mls/hr Q48H IV ; Start 08/30/18 at 16:00 Famotidine (Pepcid Vial) 20 mg QHS IVP ; Start 08/29/18 at 21:00 Active Scripts Active Potassium Chloride 20 Meq Tablet.er 20 Meq PO DAILY Orphenadrine Citrate 100 Mg Tablet.er 100 Mg PO Q12HR Anaprox Ds (Naproxen Sodium) 550 Mg Tablet 550 Mg PO Q12HR Reported Prednisone 20 Mg Tablet 1 Tab PO DAILY Hydrochlorothiazide Tablet (Hydrochlorothiazide) 12.5 Mg Tablet 12.5 Mg PO DAILY Shilpi Allergy (Fexofenadine Hcl) 180 Mg Tablet 1 Tab PO DAILY Vitals/I & O Vital Sign - Last 24 Hours 08/28/18 08/28/18 08/28/18 08/28/18 13:00 14:00 15:00 16:00 Temp 97.9 97.9 Pulse 66 96 92 Resp 22 48 B/P (MAP) 104/54 (71) 86/58 (67) 110/60 (77) Pulse Ox 97 98 99 O2 Delivery NonRebreather Mask NonRebreather Mask NonRebreather Mask Non- Rebreather O2 Flow Rate 5.0 08/28/18 08/28/18 08/28/18 08/28/18 16:00 17:00 18:00 19:00 Temp 99.4 99.4 Pulse 102 68 92 92 Resp 44 23 27 27 B/P (MAP) 124/74 (91) 122/67 (85) 120/84 (96) 134/78 (96) Pulse Ox 99 96 100 99 O2 Delivery NonRebreather Mask NonRebreather Mask NonRebreather Mask NonRebreather Mask 08/28/18 08/28/18 08/28/18 08/28/18 20:00 20:00 21:00 21:44 Temp 99.9 99.9 Pulse 90 98 Resp 27 37 12 B/P (MAP) 138/75 (96) 128/64 (85) Pulse Ox 99 99 100 O2 Delivery Non-Rebreather NonRebreather Mask NonRebreather Mask NonRebreather Mask O2 Flow Rate 15.0 15.0 08/28/18 08/28/18 08/28/18 08/29/18 22:00 22:14 23:00 00:01 Temp 97.7 97.7 Pulse 94 92 88 Resp 38 23 37 34 B/P (MAP) 132/70 (90) 107/62 (77) 130/68 (88) Pulse Ox 94 92 92 100 O2 Delivery NonRebreather Mask NonRebreather Mask NonRebreather Mask NonRebreather Mask O2 Flow Rate 15.0 15.0 08/29/18 08/29/18 08/29/1822/19 00:01 01:00 02:00 03:00 Pulse 91 90 86 Resp 32 32 B/P (MAP) 113/54 (73) 122/59 (80) 111/58 (75) Pulse Ox 99 99 96 O2 Delivery Non-Rebreather NonRebreather Mask NonRebreather Mask NonRebreather Mask O2 Flow Rate 15.0 15.0 15.0 15.0 08/29/18 08/29/18 08/29/18 08/29/18 04:00 04:00 05:00 06:00 Temp 98.5 98.5 Pulse 90 88 90 Resp 44 39 37 B/P (MAP) 124/61 (82) 104/52 (69) 119/64 (82) Pulse Ox 96 99 97 O2 Delivery NonRebreather Mask Non-Rebreather NonRebreather Mask NonRebreather Mask O2 Flow Rate 15.0 15.0 15.0 15.0 08/29/18 08/29/18 08/29/18 08/29/18 07:00 08:00 08:00 09:00 Temp 97.8 97.8 Pulse 85 82 79 Resp 27 25 32 B/P (MAP) 117/59 (78) 110/61 (77) 128/63 (84) Pulse Ox 96 100 100 O2 Delivery NonRebreather Mask NonRebreather Mask Non-Rebreather NonRebreather Mask O2 Flow Rate 15.0 15.0 15.0 15.0 08/29/18 08/29/18 08/29/18 08/29/18 10:00 11:00 12:00 12:00 Temp 98.0 98.0 Pulse 83 78 53 Resp 32 30 30 B/P (MAP) 139/64 (89) 138/78 (98) 117/72 (87) Pulse Ox 96 94 93 O2 Delivery Venturi Mask Venturi Mask Venturi Mask Non-Rebreather O2 Flow Rate 15.0 Intake and Output 08/28/18 08/28/18 08/29/18 15:00 23:00 07:00 Intake Total 150 ml 250 ml Output Total 100 ml 3800 ml 1000 ml Balance 50 ml -3800 ml -750 ml CASTLE,NIAL K III DO August 29, 2018 13:00
--- NOTE | 2018-08-29 13:28 | PDOC ---
Provider Note Provider Note The fluoro guided LP was performed with a 25g Ferguson needle without difficulty. 11 cc of yellow tinged CSF was removed and sent to the lab. The patient left the department in stable condition. MATT DIAZ MD August 29, 2018 13:28
--- NOTE | 2018-08-29 13:38 | PDOC ---
PROGRESS NOTES Assessment Assessment Metabolic encephalopathy. Confusion. Fever. Cough. Septic shock. Lactic acidosis. Renal failure on dialysis. Thrombocytopenia. Hepatomegaly. Tick bite 3 weeks ago.. Diarrhea. Elevated lipase. HTN. KIKI. Hemochromatosis Obesity. RECOMMENDATIONS/PLAN: Treat medical diseases. LP per ID. Discussed with his at bedside in ICU on 08/28/18. OT/PT. EEG on 08/27/18: Encephalopathy. No seizure activity. HCT on 08/28/18: negative. HISTORY OF THE PRESENT ILLNESS: 52-y-old male patient with hemochromatosis, KIKI, and HTN presented to the hospital with fevers for about 1 week. He states he was more tired and fatigue. On Mother's Day he had a fever of 101. Next day, he saw his primary care physician and was tested for flu that was negative. He was instructed to take Ibuprofen alternating with Tylenol for the fever. He did that and Monday did not have a fever. On Monday he had a severe headache. He went to Urgent care in [place] and was given prednisone 20mg X 5 days at that time. He states that blood work was performed but does not know results. , he went to work with a mild headache and was tired and fatigued. night, he was found to have a fever of 104 and took ibuprofen. Monday he presented to the ED at [facility] and was evaluated. He stated that about 3 weeks ago he developed rash on his left lower extremity that he thought was poison Lexie. For the hemochromatosis, he follows with Dr. Iverson at [facility] and has been undergoing phlebotomy. His last phlebotomy was in late June of 2018. He had increased MS changes and confusion on 08/25, so Neurology was requested for consultation on 08/26. Past Medical History KIKI Hemochromatosis HTN Cardiovascular: HTN Pulmonary: No pertinent hx GI: No pertinent hx Heme/Onc: Hemochromatosis Hepatobiliary: No pertinent hx Family History His father had with hemochromatosis, of inoperable brain tumor Social History Lives at home with and three sons. 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 He denies any etoh, drugs and smoking Allergies Coded Allergies: aspirin (Verified Allergy, Intermediate, 02/03/16) pentazocine (Verified Allergy, Intermediate, 02/03/16) MEDICATIONS: Refer to [facility] REVIEW OF SYSTEMS: Constitutional: Obese. Head: No traumatic brain or head injury. Skin: No edema, or rash. Ear: No infection. Eyes: No vision loss or color blindness. Nose: No bleeding or purulent discharges. Hearing: No hearing decrease. Neck: No injury. Cardiac: HTN. Pulmonary: No COPD. GI: No GI ulcer, GI bleeding. Urinary/genital: No dysuria, incontinence, urinary retention. Endocrinologic: No cousin face, craniofacial dysmorphism, polydactyly. Skeletomuscular: Generalized weakness. Neurological: see HP. Psychiatric: Denies drug use/abuse. Otherwise, not [id number] review of systems. PHYSICAL EXAMINATION: General appearance is in subacute distress. HEENT: Normocephalic and nontraumatic. Eyes, nose, ears, and throat are unremarkable. Neck is supple. No lymphadenopathy. No crepitus. Cardiovascular: S1, S2, regular rate and rhythm. Pulmonary: Clear to auscultation bilaterally. Abdomen: Bowel sounds are positive. Extremities: No rash, lesions, or edema. No restriction of range of motion NEUROLOGICAL EXAMINATION: Drowsiness. Not oriented to time, but knew in the hospital and knew his . PERRL. EOMI. CN: no focal findings. Muscle tone: within normal. Muscle strength: 4+ DTR: 2 UE, 1-2 at knee. Plantar reflex: Flexor response bilaterally Gait: not examined in bed. Sensory exam: no abnormal findings. No acute cerebellar signs elicited. F-T-N test not performed due to drowsiness.. Objective Objective Vital Signs Date Time Temp Pulse Resp B/P (MAP) Pulse Ox O2 Delivery O2 Flow Rate FiO2 08/29/18 12:00 Non-Rebreather 15.0 08/29/18 12:00 98.0 53 30 117/72 (87) 93 98.0 Intake and Output 08/29/18 07:00 Intake Total 400 ml Output Total 4900 ml Balance -4500 ml Intake Oral 0 ml IV Total 150 ml Other 250 ml Output Urine Total 0 ml Gastric Drainage Total 1900 ml Other 3000 ml Vitals Signs Vitals VS - Last 72 Hours, by Label Date Time Temp Pulse Resp B/P (MAP) Pulse Ox O2 Delivery O2 Flow Rate FiO2 08/29/18 12:00 Non-Rebreather 15.0 08/29/18 12:00 98.0 53 30 117/72 (87) 93 Venturi Mask 98.0 08/29/18 11:00 78 30 138/78 (98) 94 Venturi Mask 08/29/18 10:00 83 32 139/64 (89) 96 Venturi Mask 08/29/18 09:00 79 32 128/63 (84) 100 NonRebreather Mask 15.0 08/29/18 08:00 Non-Rebreather 15.0 08/29/18 08:00 97.8 82 25 110/61 (77) 100 NonRebreather Mask 15.0 97.8 08/29/18 07:00 85 27 117/59 (78) 96 NonRebreather Mask 15.0 08/29/18 06:00 90 37 119/64 (82) 97 NonRebreather Mask 15.0 08/29/18 05:00 88 39 104/52 (69) 99 NonRebreather Mask 15.0 08/29/18 04:00 Non-Rebreather 15.0 08/29/18 04:00 98.5 90 44 124/61 (82) 96 NonRebreather Mask 15.0 98.5 08/29/18 03:00 86 32 111/58 (75) 96 NonRebreather Mask 15.0 08/29/18 02:00 90 32 122/59 (80) 99 NonRebreather Mask 15.0 08/29/18 01:00 91 113/54 (73) 99 NonRebreather Mask 15.0 08/29/18 00:01 Non-Rebreather 15.0 08/29/18 00:01 97.7 88 34 130/68 (88) 100 NonRebreather Mask 15.0 97.7 08/28/18 23:00 92 37 107/62 (77) 92 NonRebreather Mask 08/28/18 22:14 23 92 NonRebreather Mask 15.0 08/28/18 22:00 94 38 132/70 (90) 94 NonRebreather Mask 08/28/18 21:44 12 100 NonRebreather Mask 15.0 08/28/18 21:00 98 37 128/64 (85) 99 NonRebreather Mask 08/28/18 20:00 99.9 90 27 138/75 (96) 99 NonRebreather Mask 99.9 08/28/18 20:00 Non-Rebreather 15.0 08/28/18 19:00 92 27 134/78 (96) 99 NonRebreather Mask 08/28/18 18:00 92 27 120/84 (96) 100 NonRebreather Mask 08/28/18 17:00 68 23 122/67 (85) 96 NonRebreather Mask 08/28/18 16:00 99.4 102 44 124/74 (91) 99 NonRebreather Mask 99.4 08/28/18 16:00 Non-Rebreather 5.0 08/28/18 15:00 92 48 110/60 (77) 99 NonRebreather Mask 08/28/18 14:00 96 86/58 (67) 98 NonRebreather Mask 08/28/18 13:00 97.9 66 22 104/54 (71) 97 NonRebreather Mask 97.9 08/28/18 12:15 98 NonRebreather Mask 08/28/18 12:00 Bi-pap 5.0 08/28/18 12:00 94 39 106/59 (75) 96 NonRebreather Mask 08/28/18 11:00 98 40 129/68 (88) 93 NonRebreather Mask 08/28/18 10:00 100 44 135/76 (95) 96 BiPAP/CPAP 08/28/18 09:00 93 BiPAP/CPAP 08/28/18 09:00 94 49 96 BiPAP/CPAP 08/28/18 08:45 BiPAP/CPAP 08/28/18 08:02 95 BiPAP/CPAP 08/28/18 08:00 98.9 92 42 104/50 (68) 96 BiPAP/CPAP 98.9 08/28/18 08:00 Bi-pap 5.0 08/28/18 07:00 94 49 103/68 (80) 96 BiPAP/CPAP Laboratory Laboratory Laboratory Tests Test 08/29/18 03:50 White Blood Count 11.3 x10^3/uL (4.0-11.0) Red Blood Count 2.86 x10^6/uL (4.30-5.70) Hemoglobin 8.2 g/dL (13.0-17.5) Hematocrit 24.0 % (39.0-53.0) Mean Corpuscular Volume 84 fL (79-100) Mean Corpuscular Hemoglobin 29 pg (25-35) Mean Corpuscular Hemoglobin Concent 34 g/dL (31-37) Red Cell Distribution Width 15.9 % (11.5-14.5) Platelet Count 58 x10^3/uL (140-400) Neutrophils (%) (Auto) 63 % (31-73) Lymphocytes (%) (Auto) 23 % (24-48) Monocytes (%) (Auto) 12 % (0-9) Eosinophils (%) (Auto) 0 % (0-3) Basophils (%) (Auto) 2 % (0-3) Neutrophils # (Auto) 7.1 x10^3uL (1.8-7.7) Lymphocytes # (Auto) 2.6 x10^3/uL (1.0-4.8) Monocytes # (Auto) 1.3 x10^3/uL (0.0-1.1) Eosinophils # (Auto) 0.0 x10^3/uL (0.0-0.7) Basophils # (Auto) 0.3 x10^3/uL (0.0-0.2) Sodium Level 136 mmol/L (136-145) Potassium Level 3.5 mmol/L (3.5-5.1) Chloride Level 96 mmol/L (98-107) Carbon Dioxide Level 32 mmol/L (21-32) Anion Gap 8 (6-14) Blood Urea Nitrogen 55 mg/dL (8-26) Creatinine 5.2 mg/dL (0.7-1.3) Estimated GFR (Cockcroft-Gault) 11.7 BUN/Creatinine Ratio 11 (6-20) Glucose Level 111 mg/dL (70-99) Calcium Level 7.1 mg/dL (8.5-10.1) Total Bilirubin 6.5 mg/dL (0.2-1.0) Aspartate Amino Transf (AST/SGOT) 459 U/L (15-37) Alanine Aminotransferase (ALT/SGPT) 110 U/L (16-63) Alkaline Phosphatase 289 U/L (46-116) Total Protein 5.1 g/dL (6.4-8.2) Albumin 2.2 g/dL (3.4-5.0) Albumin/Globulin Ratio 0.8 (1.0-1.7) Microbiology 08/26/18 Blood Culture - Preliminary, Resulted NO GROWTH AFTER 3 DAYS 08/25/18 Throat Culture - Final, Complete 08/25/18 - Final, Complete Medication Medications Current Medications Albumin Human 200 ml @ 200 mls/hr 1X PRN PRN IV Hypotension Last administered on 08/28/18at 14:50; Start 08/28/18 at 14:00 Daptomycin 610 mg/ Sodium Chloride 50 ml @ 100 mls/hr Q48H IV ; Start 08/30/18 at 16:00 Famotidine (Pepcid Vial) 20 mg QHS IVP ; Start 08/29/18 at 21:00 Famotidine (Pepcid) 20 mg Q48H PO ; Start 08/29/18 at 09:00; Stop 08/29/18 at 11:29; Status DC Fentanyl Citrate (Fentanyl 2ml Vial) 50 mcg PRN Q4HRS PRN IV PAIN Last administered on 08/28/18at 21:44; Start 08/28/18 at 15:30 Info (PHARMACY MONITORING -- do not chart) 1 each PRN DAILY PRN MC SEE COMMENTS; Start 08/28/18 at 15:30; Status UNV Info (PHARMACY MONITORING -- do not chart) 1 each PRN DAILY PRN MC SEE COMMENTS; Start 08/28/18 at 15:30; Status UNV Sodium Chloride 1,000 ml @ 400 mls/hr Q2H30M PRN IV PATENCY; Start 08/28/18 at 14:00; Stop 08/29/18 at 01:59; Status DC Sodium Chloride 1,000 ml @ 1,000 mls/hr Q1H PRN IV hypotension; Start 08/28/18 at 14:00; Stop 08/28/18 at 19:59; Status DC Comment Review of Relevant I have reviewed the following items gera (where applicable) has been applied. SOFIA ROBERSON MD August 29, 2018 13:38
--- NOTE | 2018-08-29 13:45 | PDOC ---
SURGICAL PROGRESS NOTE Subjective sleeping at bedside face shield O2 delivery Vital Signs Vital Signs Date Time Temp Pulse Resp B/P (MAP) Pulse Ox O2 Delivery O2 Flow Rate FiO2 08/29/18 12:00 Non-Rebreather 15.0 08/29/18 12:00 98.0 53 30 117/72 (87) 93 98.0 I&O Intake and Output 08/29/18 07:00 Intake Total 400 ml Output Total 4900 ml Balance -4500 ml Intake Oral 0 ml IV Total 150 ml Other 250 ml Output Urine Total 0 ml Gastric Drainage Total 1900 ml Other 3000 ml Abdomen: Other (mildly distended, tympanitic) Labs Laboratory Tests Test 08/28/18 05:45 08/28/18 08:35 08/29/18 03:50 White Blood Count 13.7 x10^3/uL (4.0-11.0) 11.3 x10^3/uL (4.0-11.0) Red Blood Count 3.59 x10^6/uL (4.30-5.70) 2.86 x10^6/uL (4.30-5.70) Hemoglobin 10.5 g/dL (13.0-17.5) 8.2 g/dL (13.0-17.5) Hematocrit 30.2 % (39.0-53.0) 24.0 % (39.0-53.0) Mean Corpuscular Volume 84 fL (79-100) 84 fL (79-100) Mean Corpuscular Hemoglobin 29 pg (25-35) 29 pg (25-35) Mean Corpuscular Hemoglobin Concent 35 g/dL (31-37) 34 g/dL (31-37) Red Cell Distribution Width 16.1 % (11.5-14.5) 15.9 % (11.5-14.5) Platelet Count 47 x10^3/uL (140-400) 58 x10^3/uL (140-400) Neutrophils (%) (Auto) 73 % (31-73) 63 % (31-73) Lymphocytes (%) (Auto) 7 % (24-48) 23 % (24-48) Monocytes (%) (Auto) 20 % (0-9) 12 % (0-9) Eosinophils (%) (Auto) 0 % (0-3) 0 % (0-3) Basophils (%) (Auto) 0 % (0-3) 2 % (0-3) Neutrophils # (Auto) 9.9 x10^3uL (1.8-7.7) 7.1 x10^3uL (1.8-7.7) Lymphocytes # (Auto) 0.9 x10^3/uL (1.0-4.8) 2.6 x10^3/uL (1.0-4.8) Monocytes # (Auto) 2.7 x10^3/uL (0.0-1.1) 1.3 x10^3/uL (0.0-1.1) Eosinophils # (Auto) 0.0 x10^3/uL (0.0-0.7) 0.0 x10^3/uL (0.0-0.7) Basophils # (Auto) 0.0 x10^3/uL (0.0-0.2) 0.3 x10^3/uL (0.0-0.2) Sodium Level 132 mmol/L (136-145) 136 mmol/L (136-145) Potassium Level 3.6 mmol/L (3.5-5.1) 3.5 mmol/L (3.5-5.1) Chloride Level 94 mmol/L (98-107) 96 mmol/L (98-107) Carbon Dioxide Level 25 mmol/L (21-32) 32 mmol/L (21-32) Anion Gap 13 (6-14) 8 (6-14) Blood Urea Nitrogen 65 mg/dL (8-26) 55 mg/dL (8-26) Creatinine 5.3 mg/dL (0.7-1.3) 5.2 mg/dL (0.7-1.3) Estimated GFR (Cockcroft-Gault) 11.4 11.7 Glucose Level 135 mg/dL (70-99) 111 mg/dL (70-99) Calcium Level 6.6 mg/dL (8.5-10.1) 7.1 mg/dL (8.5-10.1) Phosphorus Level 5.0 mg/dL (2.6-4.7) Magnesium Level 2.0 mg/dL (1.8-2.4) Total Bilirubin 6.2 mg/dL (0.2-1.0) 6.5 mg/dL (0.2-1.0) Direct Bilirubin 5.9 mg/dL (0.0-0.2) Aspartate Amino Transf (AST/SGOT) 574 U/L (15-37) 459 U/L (15-37) Alanine Aminotransferase (ALT/SGPT) 133 U/L (16-63) 110 U/L (16-63) Alkaline Phosphatase 271 U/L (46-116) 289 U/L (46-116) Total Protein 4.5 g/dL (6.4-8.2) 5.1 g/dL (6.4-8.2) Albumin 1.5 g/dL (3.4-5.0) 2.2 g/dL (3.4-5.0) O2 Saturation 95 % (92-99) Arterial Blood pH 7.44 (7.35-7.45) Arterial Blood pCO2 at Patient Temp 37 mmHg (35-46) Arterial Blood pO2 at Patient Temp 84 mmHg (75-108) Arterial Blood HCO3 25 mmol/L (21-28) Arterial Blood Base Excess 1 mmol/L (-3-3) FiO2 40 BUN/Creatinine Ratio 11 (6-20) Albumin/Globulin Ratio 0.8 (1.0-1.7) Laboratory Tests Test 08/29/18 03:50 White Blood Count 11.3 x10^3/uL (4.0-11.0) Red Blood Count 2.86 x10^6/uL (4.30-5.70) Hemoglobin 8.2 g/dL (13.0-17.5) Hematocrit 24.0 % (39.0-53.0) Mean Corpuscular Volume 84 fL (79-100) Mean Corpuscular Hemoglobin 29 pg (25-35) Mean Corpuscular Hemoglobin Concent 34 g/dL (31-37) Red Cell Distribution Width 15.9 % (11.5-14.5) Platelet Count 58 x10^3/uL (140-400) Neutrophils (%) (Auto) 63 % (31-73) Lymphocytes (%) (Auto) 23 % (24-48) Monocytes (%) (Auto) 12 % (0-9) Eosinophils (%) (Auto) 0 % (0-3) Basophils (%) (Auto) 2 % (0-3) Neutrophils # (Auto) 7.1 x10^3uL (1.8-7.7) Lymphocytes # (Auto) 2.6 x10^3/uL (1.0-4.8) Monocytes # (Auto) 1.3 x10^3/uL (0.0-1.1) Eosinophils # (Auto) 0.0 x10^3/uL (0.0-0.7) Basophils # (Auto) 0.3 x10^3/uL (0.0-0.2) Sodium Level 136 mmol/L (136-145) Potassium Level 3.5 mmol/L (3.5-5.1) Chloride Level 96 mmol/L (98-107) Carbon Dioxide Level 32 mmol/L (21-32) Anion Gap 8 (6-14) Blood Urea Nitrogen 55 mg/dL (8-26) Creatinine 5.2 mg/dL (0.7-1.3) Estimated GFR (Cockcroft-Gault) 11.7 BUN/Creatinine Ratio 11 (6-20) Glucose Level 111 mg/dL (70-99) Calcium Level 7.1 mg/dL (8.5-10.1) Total Bilirubin 6.5 mg/dL (0.2-1.0) Aspartate Amino Transf (AST/SGOT) 459 U/L (15-37) Alanine Aminotransferase (ALT/SGPT) 110 U/L (16-63) Alkaline Phosphatase 289 U/L (46-116) Total Protein 5.1 g/dL (6.4-8.2) Albumin 2.2 g/dL (3.4-5.0) Albumin/Globulin Ratio 0.8 (1.0-1.7) Problem List Problems Medical Problems: (1) Acute renal failure Status: Acute Assessment/Plan febrile illness no acute surgical recs d/w his TR AMBROSE MD August 29, 2018 13:45
[2018-08-29 14:06] LABS: CSF PROTEIN 160.2 mg/dL (15.0-45.0)
--- NOTE | 2018-08-29 14:09 | RAD ---
Fluoroscopically guided lumbar puncture, 08/29/2018: History: Altered mental status, tic bite Under local anesthesia, aseptic conditions and fluoroscopic guidance a lumbar puncture was performed at the L2-3 level utilizing a 25-gauge Maureen spinal needle. Yellow-tinged CSF was obtained. A total of 11 cc of CSF was removed and sent to the lab for appropriate studies. The spinal needle was then removed and hemostasis obtained. 0.6 minutes of fluoroscopy time was utilized. One fluoroscopic spot image was recorded. The patient tolerated the procedure well and was returned to the floor in stable condition.
--- NOTE | 2018-08-29 14:33 | NUR ---
SS following up with discharge planning. Pt oxygen needs increased. SS will continue to follow for discharge planning.
--- NOTE | 2018-08-29 15:50 | NUR ---
Dr. Criselda Lujan notified of patients preliminary CSF Results - CSF was light yellow, protein is 160.2, glucose 52. No new orders at this time, would like to "wait and see" for the rest of the results. He does not want the patient isolated at this time.
[2018-08-29 18:52] LABS: CSF CLARITY CLEAR; CSF COLOR YELLOW; CSF RBC COUNT 11 /cmm (Not Established); CSF WBC COUNT 112 /cmm (Not Established)
[2018-08-29 18:53] LABS: CSF PMN % 11 %
[2018-08-29] MEDS: FAMOTIDINE 20 MG/2 ML VIAL IVP SCH (20:31)
[2018-08-30] VITALS (20 sets, daily range): BP systolic 100–158; BP diastolic 55–86
[2018-08-30 05:41] LABS: BASO # 0.1 x10^3/uL (0.0-0.2); BASO % 1 % (0-3); EOS # 0.1 x10^3/uL (0.0-0.7); EOS % 1 % (0-3); HEMATOCRIT 24.7 % (39.0-53.0); HEMOGLOBIN 8.4 g/dL (13.0-17.5); LYMPH # 3.8 x10^3/uL (1.0-4.8); LYMPH % 29 % (24-48); MEAN CORPUSCULAR HEMOGLOBIN 29 pg (25-35); MEAN CORPUSCULAR HGB CONC 34 g/dL (31-37); MEAN CORPUSCULAR VOLUME 84 fL (79-100); MONO # 1.9 x10^3/uL (0.0-1.1); MONO % 14 % (0-9); NEUT # 7.1 x10^3uL (1.8-7.7); NEUT % 54 % (31-73); PLATELET COUNT 67 x10^3/uL (140-400); RED BLOOD COUNT 2.92 x10^6/uL (4.30-5.70); RED CELL DISTRIBUTION WIDTH 16.5 % (11.5-14.5)
[2018-08-30] MEDS: LACTOBACILLUS RHAMNOSUS GG 1 CAPSULE. PO SCH ×2 (07:44→21:00)
--- NOTE | 2018-08-30 08:15 | PDOC ---
Infectious Disease Note Subjective Subjective pt is awake, on bipap ROS ROS no n/v/d/ no fever Vital Sign Vital Signs Vital Signs Date Time Temp Pulse Resp B/P (MAP) Pulse Ox O2 Delivery O2 Flow Rate FiO2 08/30/18 07:00 98.0 72 31 145/69 (94) 95 Venturi Mask 98.0 08/30/18 04:00 15.0 Physical Exam PHYSICAL EXAM GENERAL: awake on bipap HEENT: Pupils equally round, reactive. Normal conjunctivae. Oral cavity: Pharynx pink, dry. NECK: Supple. LUNGS: Clear to auscultation. HEART: S1 and S2. ABDOMEN: Obese, soft, nontender with bowel sounds present. EXTREMITIES: No gross edema or cyanosis. SKIN: Warm without rash. Left knee has several scabs/scarring. NEUROLOGIC: Alert and oriented, fluctuating MS Labs Lab Laboratory Tests Test 08/29/18 13:30 08/30/18 05:30 CSF Tube Number 4 CSF Color Yellow CSF Clarity Clear CSF WBC 112 /cmm (Not Established) CSF RBC 11 /cmm (Not Established) CSF Mononuclear WBCs % 89 % CSF Polynuclear WBCs (%) 11 % CSF Glucose 52 mg/dL (37-70) CSF Total Protein 160.2 mg/dL (15.0-45.0) White Blood Count 13.0 x10^3/uL (4.0-11.0) Red Blood Count 2.92 x10^6/uL (4.30-5.70) Hemoglobin 8.4 g/dL (13.0-17.5) Hematocrit 24.7 % (39.0-53.0) Mean Corpuscular Volume 84 fL (79-100) Mean Corpuscular Hemoglobin 29 pg (25-35) Mean Corpuscular Hemoglobin Concent 34 g/dL (31-37) Red Cell Distribution Width 16.5 % (11.5-14.5) Platelet Count 67 x10^3/uL (140-400) Neutrophils (%) (Auto) 54 % (31-73) Lymphocytes (%) (Auto) 29 % (24-48) Monocytes (%) (Auto) 14 % (0-9) Eosinophils (%) (Auto) 1 % (0-3) Basophils (%) (Auto) 1 % (0-3) Neutrophils # (Auto) 7.1 x10^3uL (1.8-7.7) Lymphocytes # (Auto) 3.8 x10^3/uL (1.0-4.8) Monocytes # (Auto) 1.9 x10^3/uL (0.0-1.1) Eosinophils # (Auto) 0.1 x10^3/uL (0.0-0.7) Basophils # (Auto) 0.1 x10^3/uL (0.0-0.2) Micro Microbiology 08/26/18 Blood Culture - Preliminary, Resulted NO GROWTH AFTER 1 DAY CSF wbc 112 Objective Assessment 1. Tick-borne illness, suspected. with h/o tick bite 3 weeks ago at [place] 2. Lactic acidosis. 3. Fever. 4. Bandemia. 5. Acute hepatic injury. 6. Acute kidney injury. 7. Thrombocytopenia. 8. Hemochromatosis. 9. LLE dermatitis improving, ? poison [place],resolving with local treatment 10 Encephalitis Plan Plan of Care d/c dapto and cont doxycycline. d/c meropenem, add acyclovir Ehrlichiae Ab or pcr not available at this hospital RMSF neg, though need convalescent serology [place] pending HSV PCR pending,,, though csf finding not favoring D/w D/w nursing will get MRI KELBY PARKER MD August 30, 2018 08:15
[2018-08-30] MEDS: DOXYCYCLINE HYCLATE 100 MG in IV DEXTROSE 5% 100ML 100 ML IV SCH ×2 (08:24→21:40)
--- NOTE | 2018-08-30 08:37 | PDOC ---
PROGRESS NOTES Subjective Subjective HPI - f/u of Thrombocytopenia ROS - no fever Objective Objective Vital Signs Date Time Temp Pulse Resp B/P (MAP) Pulse Ox O2 Delivery O2 Flow Rate FiO2 08/30/18 08:16 73 37 132/62 (85) 95 Venturi Mask 08/30/18 07:56 15.0 08/30/18 07:00 98.0 98.0 Intake and Output 08/30/18 07:00 Intake Total 100 ml Output Total 1500 ml Balance -1400 ml Intake Oral 0 ml IV Total 100 ml Output Urine Total 0 ml Gastric Drainage Total 1500 ml Physical Exam Heart: Regular rate, Normal S1, Normal S2 General: Alert, No acute distress Lungs: Clear to auscultation Assessment Assessment Problems Medical Problems: (1) Acute renal failure Status: Acute Assessment/Plan 52 yo male presents with week long history of fever and found to have thrombocytopenia, ARF, elevated LFTs 1. Septic shock - Fever - Tick borne illness suspected. I d/w Dr Lujan. Improving. Per ID: d/c dapto and cont doxycycline. d/c meropenem, add acyclovir 2. Dehydration 3. Acute renal failure 4. Elevated LFTs 5. Thrombocytopenia due to sepsis, no clinical evidence of TTP, no evidence of schistocytes, normal retic and haptoglobin and Hb. He should be transfused plts if his plt count <10 or he develops active bleeding. Plt better at 30 on 08/27/18. Plt better at 47 on 08/28/18, Plt better at 58 on 08/29/18 Plt better at 67 on 08/30/18.Monitor cbc. Comment Review of Relevant I have reviewed the following items grea (where applicable) has been applied. Labs Laboratory Tests Test 08/29/18 03:50 08/29/18 13:30 08/30/18 05:30 White Blood Count 11.3 x10^3/uL (4.0-11.0) 13.0 x10^3/uL (4.0-11.0) Red Blood Count 2.86 x10^6/uL (4.30-5.70) 2.92 x10^6/uL (4.30-5.70) Hemoglobin 8.2 g/dL (13.0-17.5) 8.4 g/dL (13.0-17.5) Hematocrit 24.0 % (39.0-53.0) 24.7 % (39.0-53.0) Mean Corpuscular Volume 84 fL (79-100) 84 fL (79-100) Mean Corpuscular Hemoglobin 29 pg (25-35) 29 pg (25-35) Mean Corpuscular Hemoglobin Concent 34 g/dL (31-37) 34 g/dL (31-37) Red Cell Distribution Width 15.9 % (11.5-14.5) 16.5 % (11.5-14.5) Platelet Count 58 x10^3/uL (140-400) 67 x10^3/uL (140-400) Neutrophils (%) (Auto) 63 % (31-73) 54 % (31-73) Lymphocytes (%) (Auto) 23 % (24-48) 29 % (24-48) Monocytes (%) (Auto) 12 % (0-9) 14 % (0-9) Eosinophils (%) (Auto) 0 % (0-3) 1 % (0-3) Basophils (%) (Auto) 2 % (0-3) 1 % (0-3) Neutrophils # (Auto) 7.1 x10^3uL (1.8-7.7) 7.1 x10^3uL (1.8-7.7) Lymphocytes # (Auto) 2.6 x10^3/uL (1.0-4.8) 3.8 x10^3/uL (1.0-4.8) Monocytes # (Auto) 1.3 x10^3/uL (0.0-1.1) 1.9 x10^3/uL (0.0-1.1) Eosinophils # (Auto) 0.0 x10^3/uL (0.0-0.7) 0.1 x10^3/uL (0.0-0.7) Basophils # (Auto) 0.3 x10^3/uL (0.0-0.2) 0.1 x10^3/uL (0.0-0.2) Sodium Level 136 mmol/L (136-145) Potassium Level 3.5 mmol/L (3.5-5.1) Chloride Level 96 mmol/L (98-107) Carbon Dioxide Level 32 mmol/L (21-32) Anion Gap 8 (6-14) Blood Urea Nitrogen 55 mg/dL (8-26) Creatinine 5.2 mg/dL (0.7-1.3) Estimated GFR (Cockcroft-Gault) 11.7 BUN/Creatinine Ratio 11 (6-20) Glucose Level 111 mg/dL (70-99) Calcium Level 7.1 mg/dL (8.5-10.1) Total Bilirubin 6.5 mg/dL (0.2-1.0) Aspartate Amino Transf (AST/SGOT) 459 U/L (15-37) Alanine Aminotransferase (ALT/SGPT) 110 U/L (16-63) Alkaline Phosphatase 289 U/L (46-116) Total Protein 5.1 g/dL (6.4-8.2) Albumin 2.2 g/dL (3.4-5.0) Albumin/Globulin Ratio 0.8 (1.0-1.7) CSF Tube Number 4 CSF Color Yellow CSF Clarity Clear CSF WBC 112 /cmm (Not Established) CSF RBC 11 /cmm (Not Established) CSF Mononuclear WBCs % 89 % CSF Polynuclear WBCs (%) 11 % CSF Glucose 52 mg/dL (37-70) CSF Total Protein 160.2 mg/dL (15.0-45.0) Laboratory Tests Test 08/29/18 13:30 08/30/18 05:30 CSF Tube Number 4 CSF Color Yellow CSF Clarity Clear CSF WBC 112 /cmm (Not Established) CSF RBC 11 /cmm (Not Established) CSF Mononuclear WBCs % 89 % CSF Polynuclear WBCs (%) 11 % CSF Glucose 52 mg/dL (37-70) CSF Total Protein 160.2 mg/dL (15.0-45.0) White Blood Count 13.0 x10^3/uL (4.0-11.0) Red Blood Count 2.92 x10^6/uL (4.30-5.70) Hemoglobin 8.4 g/dL (13.0-17.5) Hematocrit 24.7 % (39.0-53.0) Mean Corpuscular Volume 84 fL (79-100) Mean Corpuscular Hemoglobin 29 pg (25-35) Mean Corpuscular Hemoglobin Concent 34 g/dL (31-37) Red Cell Distribution Width 16.5 % (11.5-14.5) Platelet Count 67 x10^3/uL (140-400) Neutrophils (%) (Auto) 54 % (31-73) Lymphocytes (%) (Auto) 29 % (24-48) Monocytes (%) (Auto) 14 % (0-9) Eosinophils (%) (Auto) 1 % (0-3) Basophils (%) (Auto) 1 % (0-3) Neutrophils # (Auto) 7.1 x10^3uL (1.8-7.7) Lymphocytes # (Auto) 3.8 x10^3/uL (1.0-4.8) Monocytes # (Auto) 1.9 x10^3/uL (0.0-1.1) Eosinophils # (Auto) 0.1 x10^3/uL (0.0-0.7) Basophils # (Auto) 0.1 x10^3/uL (0.0-0.2) Microbiology 08/26/18 Blood Culture - Preliminary, Resulted NO GROWTH AFTER 3 DAYS 08/29/18 CSF Gram Stain - Final, Complete 08/25/18 Throat Culture - Final, Complete 08/25/18 - Final, Complete Medications Current Medications Sodium Chloride 1,000 ml @ 1,000 mls/hr 1X ONCE IV Last administered on 08/25/18at 20:38; Start 08/25/18 at 19:15; Stop 08/25/18 at 20:14; Status DC Ibuprofen (Motrin) 600 mg 1X ONCE PO Last administered on 08/25/18at 20:38; Start 08/25/18 at 19:45; Stop 08/25/18 at 19:49; Status DC Sodium Chloride 1,000 ml @ 1,000 mls/hr 1X ONCE IV Last administered on 08/25/18at 20:30; Start 08/25/18 at 20:30; Stop 08/25/18 at 21:29; Status DC Ceftriaxone Sodium (Rocephin) 1 gm 1X ONCE IVP Last administered on 08/25/18at 20:36; Start 08/25/18 at 20:30; Stop 08/25/18 at 20:31; Status DC Vancomycin HCl 2 gm/Sodium Chloride 500 ml @ 250 mls/hr 1X ONCE IV Last administered on 08/25/18at 23:10; Start 08/25/18 at 21:30; Stop 08/25/18 at 23:29; Status DC Sodium Chloride 1,000 ml @ 1,000 mls/hr 1X ONCE IV Last administered on 08/25/18at 23:51; Start 08/25/18 at 21:00; Stop 08/25/18 at 21:59; Status DC Piperacillin Sod/ Tazobactam Sod 4.5 gm/Sodium Chloride 100 ml @ 200 mls/hr 1X ONCE IV ; Start 08/25/18 at 21:15; Stop 08/25/18 at 21:44; Status DC Aztreonam (Azactam) 2 gm 1X ONCE IVP Last administered on 08/25/18at 21:15; Start 08/25/18 at 21:15; Stop 08/25/18 at 21:16; Status DC Magnesium Sulfate 50 ml @ 25 mls/hr 1X ONCE IV Last administered on 08/25/18at 23:51; Start 08/25/18 at 21:15; Stop 08/25/18 at 23:14; Status DC Ondansetron HCl (Zofran) 4 mg PRN Q8HRS PRN IV NAUSEA/VOMITING; Start 08/25/18 at 21:15; Stop 08/26/18 at 21:14; Status DC Acetaminophen (Tylenol) 650 mg PRN Q4HRS PRN PO FEVER; Start 08/25/18 at 21:15; Stop 08/26/18 at 21:14; Status DC Sodium Chloride 1,000 ml @ 125 mls/hr 1X ONCE IV Last administered on 08/25/18at 23:09; Start 08/25/18 at 21:15; Stop 08/26/18 at 05:14; Status DC Daptomycin 610 mg/ Sodium Chloride 50 ml @ 100 mls/hr QODAY IV Last administered on 08/27/18at 08:59; Start 08/27/18 at 09:00; Stop 08/28/18 at 15:40; Status DC Meropenem 500 mg/ Sodium Chloride 50 ml @ 100 mls/hr 1X ONCE IV Last admi nistered on 08/25/18at 22:12; Start 08/25/18 at 22:00; Stop 08/25/18 at 22:29; Status DC Doxycycline Hyclate 100 mg/ Dextrose 100 ml @ 50 mls/hr Q12HR IV Last administered on 08/30/18at 08:24; Start 08/26/18 at 09:00 Meropenem 500 mg/ Sodium Chloride 50 ml @ 100 mls/hr DAILY IV Last administered on 08/29/18at 10:13; Start 08/26/18 at 09:00; Stop 08/30/18 at 08:17; Status DC Sodium Chloride (Normal Saline Flush) 10 ml QSHIFT PRN IV AFTER MEDS AND BLOOD DRAWS; Start 08/26/18 at 09:15 Norepinephrine Bitartrate 250 ml @ 0 mls/hr CONT PRN IV PER PROTOCOL Last administered on 08/27/18at 10:21; Start 08/26/18 at 09:15 Famotidine (Pepcid) 20 mg DAILY PO Last administered on 08/27/18at 08:14; Start 08/26/18 at 12:00; Stop 08/27/18 at 14:36; Status DC Sodium Chloride 1,000 ml @ 1,000 mls/hr Q1H PRN IV hypotension; Start 08/26/18 at 11:51; Stop 08/26/18 at 17:50; Status DC Sodium Chloride (Normal Saline Flush) 10 ml 1X PRN PRN IV AP catheter pack; Start 08/26/18 at 12:00; Stop 08/27/18 at 11:59; Status DC Sodium Chloride (Normal Saline Flush) 10 ml 1X PRN PRN IV 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; Start 08/26/18 at 12:00; Stop 08/27/18 at 11:59; Status DC Sodium Chloride 1,000 ml @ 400 mls/hr Q2H30M PRN IV PATENCY; Start 08/26/18 at 11:51; Stop 08/26/18 at 23:50; Status DC Info (PHARMACY MONITORING -- do not chart) 1 each PRN DAILY PRN MC SEE COMMENTS; Start 08/26/18 at 12:00; Status UNV Info (PHARMACY MONITORING -- do not chart) 1 each PRN DAILY PRN MC SEE COMMENTS; Start 08/26/18 at 12:00 Lidocaine/Sodium Bicarbonate (Buffered Lidocaine 1%) 4 ml 1X ONCE INJ Last administered on 08/26/18at 12:45; Start 08/26/18 at 12:45; Stop 08/26/18 at 12:48; Status DC Heparin Sodium (Porcine) (Heparin Sodium) 2,500 unit 1X ONCE INT CAT Last administered on 08/26/18at 12:45; Start 08/26/18 at 12:45; Stop 08/26/18 at 12:48; Status DC Lidocaine/Sodium Bicarbonate (Buffered Lidocaine 1%) 3 ml STK-MED ONCE .ROUTE ; Start 08/26/18 at 12:49; Stop 08/26/18 at 12:50; Status DC Heparin Sodium (Porcine) (Heparin Sodium) 10,000 unit STK-MED ONCE .ROUTE ; Start 08/26/18 at 12:49; Stop 08/26/18 at 12:50; Status DC Lactobacillus Rhamnosus (Culturelle) 1 cap BID PO Last administered on 08/28/18at 08:01; Start 08/26/18 at 21:00 Acetaminophen (Tylenol) 325 mg STK-MED ONCE PO ; Start 08/27/18 at 00:43; Stop 08/27/18 at 00:44; Status DC Sodium Chloride 1,000 ml @ 1,000 mls/hr 1X ONCE IV Last administered on 08/27/18at 11:05; Start 08/27/18 at 10:30; Stop 08/27/18 at 11:29; Status DC Sodium Chloride 1,000 ml @ 1,000 mls/hr Q1H PRN IV hypotension; Start 08/27/18 at 11:28; Stop 08/27/18 at 17:27; Status DC Albumin Human 200 ml @ 200 mls/hr 1X PRN PRN IV Hypotension; Start 08/27/18 at 11:30; Stop 08/27/18 at 17:29; Status DC Sodium Chloride (Normal Saline Flush) 10 ml 1X PRN PRN IV AP catheter pack; Start 08/27/18 at 11:30; Stop 08/28/18 at 11:29; Status DC Sodium Chloride (Normal Saline Flush) 10 ml 1X PRN PRN IV [employer]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; Start 08/27/18 at 11:30; Stop 08/28/18 at 11:29; Status DC Sodium Chloride 1,000 ml @ 400 mls/hr Q2H30M PRN IV PATENCY; Start 08/27/18 at 11:28; Stop 08/27/18 at 23:27; Status DC Info (PHARMACY MONITORING -- do not chart) 1 each PRN DAILY PRN MC SEE COMMENTS; Start 08/27/18 at 11:30; Status UNV Info (PHARMACY MONITORING -- do not chart) 1 each PRN DAILY PRN MC SEE C OMMENTS; Start 08/27/18 at 11:30; Status UNV Famotidine (Pepcid) 20 mg Q48H PO ; Start 08/29/18 at 09:00; Stop 08/29/18 at 11:29; Status DC Acetaminophen (Tylenol) 650 mg PRN Q6HRS PRN PO pain/fever; Start 08/27/18 at 21:15 Acetaminophen (Tylenol Supp) 650 mg PRN Q6HRS PRN AL MILD PAIN / TEMP Last administered on 08/27/18at 21:25; Start 08/27/18 at 21:15 Fentanyl Citrate (Fentanyl 2ml Vial) 25 mcg 1X ONCE IV Last administered on 08/28/18at 08:54; Start 08/28/18 at 08:45; Stop 08/28/18 at 08:47; Status DC Lidocaine/Sodium Bicarbonate (Buffered Lidocaine 1%) 3 ml STK-MED ONCE .ROUTE ; Start 08/28/18 at 09:55; Stop 08/28/18 at 09:56; Status DC Lidocaine HCl (Glydo (Lidocaine) Jelly) 1 meng 1X STAT MM Last administered on 08/28/18at 10:16; Start 08/28/18 at 10:16; Stop 08/28/18 at 10:19; Status DC Benzocaine (Hurricaine One) 1 spray 1X STAT MM Last administered on 08/28/18at 10:16; Start 08/28/18 at 10:16; Stop 08/28/18 at 10:19; Status DC Lidocaine/Sodium Bicarbonate (Buffered Lidocaine 1%) 3 ml 1X ONCE INJ ; Start 08/28/18 at 10:30; Stop 08/28/18 at 10:31; Status DC Haloperidol Lactate (Haldol Inj) 5 mg PRN Q6HRS PRN IVP AGITATION Last administered on 08/29/18at 20:31; Start 08/28/18 at 12:00 Fentanyl Citrate (Fentanyl 2ml Vial) 50 mcg PRN Q4HRS PRN IV PAIN Last administered on 08/28/18at 21:44; Start 08/28/18 at 15:30 Sodium Chloride 1,000 ml @ 1,000 mls/hr Q1H PRN IV hypotension; Start 08/28/18 at 14:00; Stop 08/28/18 at 19:59; Status DC Albumin Human 200 ml @ 200 mls/hr 1X PRN PRN IV Hypotension Last administered on 08/28/18at 14:50; Start 08/28/18 at 14:00 Sodium Chloride 1,000 ml @ 400 mls/hr Q2H30M PRN IV PATENCY; Start 08/28/18 at 14:00; Stop 08/29/18 at 01:59; Status DC Info (PHARMACY MONITORING -- do not chart) 1 each PRN DAILY PRN MC SEE COMMENTS; Start 08/28/18 at 15:30; Status UNV Info (PHARMACY MONITORING -- do not chart) 1 each PRN DAILY PRN MC SEE COMMENTS ; Start 08/28/18 at 15:30; Status UNV Daptomycin 610 mg/ Sodium Chloride 50 ml @ 100 mls/hr Q48H IV ; Start 08/30/18 at 16:00; Stop 08/30/18 at 16:00; Status DC Famotidine (Pepcid Vial) 20 mg QHS IVP Last administered on 08/29/18at 20:31; Start 08/29/18 at 21:00 Acyclovir Sodium 340 mg/Dextrose 106.8 ml @ 106.8 mls/ hr Q12HR IV ; Start 08/30/18 at 09:00 Active Scripts Active Potassium Chloride 20 Meq Tablet.er 20 Meq PO DAILY Orphenadrine Citrate 100 Mg Tablet.er 100 Mg PO Q12HR Anaprox Ds (Naproxen Sodium) 550 Mg Tablet 550 Mg PO Q12HR Reported Prednisone 20 Mg Tablet 1 Tab PO DAILY Hydrochlorothiazide Tablet (Hydrochlorothiazide) 12.5 Mg Tablet 12.5 Mg PO DAILY Shilpi Allergy (Fexofenadine Hcl) 180 Mg Tablet 1 Tab PO DAILY Vitals/I & O Vital Sign - Last 24 Hours 08/29/18 08/29/18 08/29/18 08/29/18 09:00 10:00 11:00 12:00 Temp 98.0 98.0 Pulse 79 83 78 53 Resp 32 32 30 30 B/P (MAP) 128/63 (84) 139/64 (89) 138/78 (98) 117/72 (87) Pulse Ox 100 96 94 93 O2 Delivery NonRebreather Mask Venturi Mask Venturi Mask Venturi Mask O2 Flow Rate 15.0 08/29/18 08/29/18 08/29/18 08/29/18 12:00 13:00 15:00 16:00 Pulse 78 78 76 Resp 32 28 30 B/P (MAP) 124/79 (94) 121/63 (82) 100/54 (69) Pulse Ox 93 92 92 O2 Delivery Non-Rebreather Venturi Mask Venturi Mask Venturi Mask O2 Flow Rate 15.0 08/29/18 08/29/18 08/29/18 08/29/18 16:00 17:00 18:00 19:00 Pulse 77 76 78 Resp 30 30 32 B/P (MAP) 121/57 (78) 111/62 (78) 118/62 (80) Pulse Ox 92 95 95 O2 Delivery Non-Rebreather Venturi Mask Venturi Mask Venturi Mask O2 Flow Rate 15.0 08/29/18 08/29/18 08/29/18 08/29/18 20:00 20:00 21:00 22:00 Temp 98.2 98.2 Pulse 76 78 75 Resp 22 31 30 B/P (MAP) 125/61 (82) 133/68 (89) 134/68 (90) Pulse Ox 96 96 95 O2 Delivery Venturi Mask Venturi Mask Venturi Mask Venturi Mask O2 Flow Rate 15.0 08/29/18 08/29/18 08/30/18 08/30/18 23:00 23:59 00:00 01:00 Temp 98.5 98.5 Pulse 77 77 75 Resp 22 30 40 B/P (MAP) 127/59 (81) 135/67 (89) 158/74 (102) Pulse Ox 96 97 95 O2 Delivery Venturi Mask Venturi Mask Venturi Mask Venturi Mask O2 Flow Rate 15.0 08/30/18 08/30/18 08/30/18 08/30/18 02:00 03:00 04:00 04:00 Temp 98.3 98.3 Pulse 72 73 73 Resp 26 24 26 B/P (MAP) 144/55 (84) 128/70 (89) 148/75 (99) Pulse Ox 95 96 95 O2 Delivery Venturi Mask Venturi Mask Venturi Mask Venturi Mask O2 Flow Rate 15.0 08/30/18 08/30/18 08/30/18 08/30/18 05:00 06:00 07:00 07:56 Temp 98.0 98.0 Pulse 73 73 72 Resp 33 33 31 B/P (MAP) 121/67 (85) 139/65 (89) 145/69 (94) Pulse Ox 96 94 95 O2 Delivery Venturi Mask Venturi Mask Venturi Mask Venturi Mask O2 Flow Rate 15.0 08/30/18 08:16 Pulse 73 Resp 37 B/P (MAP) 132/62 (85) Pulse Ox 95 O2 Delivery Venturi Mask Intake and Output 08/29/18 08/29/18 08/30/18 15:00 23:00 07:00 Intake Total 0 ml 0 ml 100 ml Output Total 500 ml 600 ml 400 ml Balance -500 ml -600 ml -300 ml JAVON COSME MD August 30, 2018 08:37
[2018-08-30 09:31] LABS: ALBUMIN 2.2 g/dL (3.4-5.0); CALCIUM 7.1 mg/dL (8.5-10.1); CREATININE 7.9 mg/dL (0.7-1.3); GFR 7.2; POTASSIUM 3.7 mmol/L (3.5-5.1)
--- NOTE | 2018-08-30 10:08 | PDOC ---
PULMONARY PROGRESS NOTES Subjective PT OFF BIPAP HAD LP EARLIER TODAY Vitals Vital Signs Date Time Temp Pulse Resp B/P (MAP) Pulse Ox O2 Delivery O2 Flow Rate FiO2 08/30/18 10:00 72 30 154/77 (102) 93 Venturi Mask 08/30/18 07:56 15.0 08/30/18 07:00 98.0 98.0 General: Alert, Confused, Lethargic Lungs: Crackles Cardiovascular: S1, S2 Abdomen: Soft Extremities: No Edema Skin: Warm Labs Laboratory Tests Test 08/29/18 03:50 08/29/18 13:30 08/30/18 05:30 White Blood Count 11.3 x10^3/uL (4.0-11.0) 13.0 x10^3/uL (4.0-11.0) Red Blood Count 2.86 x10^6/uL (4.30-5.70) 2.92 x10^6/uL (4.30-5.70) Hemoglobin 8.2 g/dL (13.0-17.5) 8.4 g/dL (13.0-17.5) Hematocrit 24.0 % (39.0-53.0) 24.7 % (39.0-53.0) Mean Corpuscular Volume 84 fL (79-100) 84 fL (79-100) Mean Corpuscular Hemoglobin 29 pg (25-35) 29 pg (25-35) Mean Corpuscular Hemoglobin Concent 34 g/dL (31-37) 34 g/dL (31-37) Red Cell Distribution Width 15.9 % (11.5-14.5) 16.5 % (11.5-14.5) Platelet Count 58 x10^3/uL (140-400) 67 x10^3/uL (140-400) Neutrophils (%) (Auto) 63 % (31-73) 54 % (31-73) Lymphocytes (%) (Auto) 23 % (24-48) 29 % (24-48) Monocytes (%) (Auto) 12 % (0-9) 14 % (0-9) Eosinophils (%) (Auto) 0 % (0-3) 1 % (0-3) Basophils (%) (Auto) 2 % (0-3) 1 % (0-3) Neutrophils # (Auto) 7.1 x10^3uL (1.8-7.7) 7.1 x10^3uL (1.8-7.7) Lymphocytes # (Auto) 2.6 x10^3/uL (1.0-4.8) 3.8 x10^3/uL (1.0-4.8) Monocytes # (Auto) 1.3 x10^3/uL (0.0-1.1) 1.9 x10^3/uL (0.0-1.1) Eosinophils # (Auto) 0.0 x10^3/uL (0.0-0.7) 0.1 x10^3/uL (0.0-0.7) Basophils # (Auto) 0.3 x10^3/uL (0.0-0.2) 0.1 x10^3/uL (0.0-0.2) Sodium Level 136 mmol/L (136-145) 140 mmol/L (136-145) Potassium Level 3.5 mmol/L (3.5-5.1) 3.7 mmol/L (3.5-5.1) Chloride Level 96 mmol/L (98-107) 95 mmol/L (98-107) Carbon Dioxide Level 32 mmol/L (21-32) 31 mmol/L (21-32) Anion Gap 8 (6-14) 14 (6-14) Blood Urea Nitrogen 55 mg/dL (8-26) 88 mg/dL (8-26) Creatinine 5.2 mg/dL (0.7-1.3) 7.9 mg/dL (0.7-1.3) Estimated GFR (Cockcroft-Gault) 11.7 7.2 BUN/Creatinine Ratio 11 (6-20) Glucose Level 111 mg/dL (70-99) 110 mg/dL (70-99) Calcium Level 7.1 mg/dL (8.5-10.1) 7.1 mg/dL (8.5-10.1) Total Bilirubin 6.5 mg/dL (0.2-1.0) Aspartate Amino Transf (AST/SGOT) 459 U/L (15-37) Alanine Aminotransferase (ALT/SGPT) 110 U/L (16-63) Alkaline Phosphatase 289 U/L (46-116) Total Protein 5.1 g/dL (6.4-8.2) Albumin 2.2 g/dL (3.4-5.0) 2.2 g/dL (3.4-5.0) Albumin/Globulin Ratio 0.8 (1.0-1.7) CSF Tube Number 4 CSF Color Yellow CSF Clarity Clear CSF WBC 112 /cmm (Not Established) CSF RBC 11 /cmm (Not Established) CSF Mononuclear WBCs % 89 % CSF Polynuclear WBCs (%) 11 % CSF Glucose 52 mg/dL (37-70) CSF Total Protein 160.2 mg/dL (15.0-45.0) Phosphorus Level 5.0 mg/dL (2.6-4.7) Laboratory Tests Test 08/29/18 13:30 08/30/18 05:30 CSF Tube Number 4 CSF Color Yellow CSF Clarity Clear CSF WBC 112 /cmm (Not Established) CSF RBC 11 /cmm (Not Established) CSF Mononuclear WBCs % 89 % CSF Polynuclear WBCs (%) 11 % CSF Glucose 52 mg/dL (37-70) CSF Total Protein 160.2 mg/dL (15.0-45.0) White Blood Count 13.0 x10^3/uL (4.0-11.0) Red Blood Count 2.92 x10^6/uL (4.30-5.70) Hemoglobin 8.4 g/dL (13.0-17.5) Hematocrit 24.7 % (39.0-53.0) Mean Corpuscular Volume 84 fL (79-100) Mean Corpuscular Hemoglobin 29 pg (25-35) Mean Corpuscular Hemoglobin Concent 34 g/dL (31-37) Red Cell Distribution Width 16.5 % (11.5-14.5) Platelet Count 67 x10^3/uL (140-400) Neutrophils (%) (Auto) 54 % (31-73) Lymphocytes (%) (Auto) 29 % (24-48) Monocytes (%) (Auto) 14 % (0-9) Eosinophils (%) (Auto) 1 % (0-3) Basophils (%) (Auto) 1 % (0-3) Neutrophils # (Auto) 7.1 x10^3uL (1.8-7.7) Lymphocytes # (Auto) 3.8 x10^3/uL (1.0-4.8) Monocytes # (Auto) 1.9 x10^3/uL (0.0-1.1) Eosinophils # (Auto) 0.1 x10^3/uL (0.0-0.7) Basophils # (Auto) 0.1 x10^3/uL (0.0-0.2) Sodium Level 140 mmol/L (136-145) Potassium Level 3.7 mmol/L (3.5-5.1) Chloride Level 95 mmol/L (98-107) Carbon Dioxide Level 31 mmol/L (21-32) Anion Gap 14 (6-14) Blood Urea Nitrogen 88 mg/dL (8-26) Creatinine 7.9 mg/dL (0.7-1.3) Estimated GFR (Cockcroft-Gault) 7.2 Glucose Level 110 mg/dL (70-99) Calcium Level 7.1 mg/dL (8.5-10.1) Phosphorus Level 5.0 mg/dL (2.6-4.7) Albumin 2.2 g/dL (3.4-5.0) Medications Active Scripts Medications Dose Route/Sig Max Daily Dose Days Date Category Prednisone 20 Mg Tablet 1 Tab PO DAILY 08/26/18 Reported Hydrochlorothiazide Tablet (Hydrochlorothiazide) 12.5 Mg Tablet 12.5 Mg PO DAILY 08/26/18 Reported Shilpi Allergy (Fexofenadine Hcl) 180 Mg Tablet 1 Tab PO DAILY 08/26/18 Reported Potassium Chloride 20 Meq Tablet.er 20 Meq PO DAILY 08/24/18 Rx Orphenadrine Citrate 100 Mg Tablet.er 100 Mg PO Q12HR 02/03/16 Rx Anaprox Ds (Naproxen Sodium) 550 Mg Tablet 550 Mg PO Q12HR 02/03/16 Rx Impression . IMPRESSION: 1. Acute hypoxemic respiratory failure, multifactorial, suspect acute lung injury from recent infection. 2. Suspect tick-borne illness. 3. Fever. 4. Lactic acidosis. 5. Acute renal failure. 6. Acute hepatic injury. 7. Thrombocytopenia. 8. Hemochromatosis. 9. ACUTE TOXIC MET ENCEPH POA 10 DYPHAGIA 11.ENCEPHALITIS POSSIBLE Plan . PER ID CHANGES ON COVERAGE START TUBE FEEDING PRN BIPAP CONTINUE SUPPORT HALDOL PRN D/W RN ABG AND LABS NOTED SEROLOGY PENDING CCT 25 MIN ANISH DENNIS MD August 30, 2018 10:08
--- NOTE | 2018-08-30 10:13 | PDOC ---
SUBJECTIVE ROS Awake, on Bipap, anuric OBJECTIVE Vital Signs Vital Signs Date Time Temp Pulse Resp B/P (MAP) Pulse Ox O2 Delivery O2 Flow Rate FiO2 08/30/18 09:19 94 Venturi Mask 08/30/18 09:07 69 32 132/62 (85) 08/30/18 07:56 15.0 08/30/18 07:00 98.0 98.0 I & 0 Intake and Output 08/30/18 07:00 Intake Total 100 ml Output Total 1500 ml Balance -1400 ml Intake Oral 0 ml IV Total 100 ml Output Urine Total 0 ml Gastric Drainage Total 1500 ml PHYSICAL EXAM Physical Exam GENERAL: awake on bipap HEENT:OM moist , On Bipap NECK: Supple. LUNGS: Clear to auscultation. HEART: S1 and S2. ABDOMEN: Obese, soft, nontender EXTREMITIES: No gross edema SKIN: Warm without rash. Left knee has several scabs/scarring. NEUROLOGIC: fluctuating MS No Waters DIAGNOSIS/ASSESSMENT Assessment & Plan RADHA - acute tubular necrosis, Abdominal ultrasound Rt Kidney and UA unremarkable CT scan- Unremarkable Kidneys Initiated on HD 08/26 due to Azotemia and Fluid - HD x3 Held HD yesterday, worsening renal function,Dialyis today Seen during the treatment ,Increased Duration to 4 hrs , Tolerating well Strict I/O ( doesn't have Waters) Bladder scan -anuric Hyponatremia due to the above Normal Metabolic acidosis Resolved Corrected Ca Normal Increased LFT's , Alb low Anemia- Hgb dropped, Now stable Hem following Abdominal Pain /Distension- Has NGT , 1200 + Residual Thrombocytopenia. As per Hematology/Oncology, a peripheral smear does not reveal schistocytes. Discussed with RN and at bedside COMMENT/RELEVANT DATA Meds Current Medications Medications (Trade) Dose Ordered Sig/Noemi Start Time Stop Time Status Last Admin Dose Admin Acetaminophen (Tylenol Supp) 650 mg PRN Q6HRS PRN 08/27/18 21:15 08/27/18 21:25 650 MG Acetaminophen (Tylenol) 650 mg PRN Q6HRS PRN 08/27/18 21:15 Acyclovir Sodium 340 mg/Dextrose 106.8 ml @ 106.8 mls/ hr Q12HR 08/30/18 09:00 Albumin Human 200 ml @ 200 mls/hr 1X PRN PRN 08/28/18 14:00 08/28/18 14:50 200 MLS/HR Aztreonam (Azactam) 2 gm 1X ONCE 08/25/18 21:15 08/25/18 21:16 DC 08/25/18 21:15 2 GM Benzocaine (Hurricaine One) 1 spray 1X STAT 08/28/18 10:16 08/28/18 10:19 DC 08/28/18 10:16 1 SPRAY Ceftriaxone Sodium (Rocephin) 1 gm 1X ONCE 08/25/18 20:30 08/25/18 20:31 DC 08/25/18 20:36 1 GM Daptomycin 610 mg/ Sodium Chloride 50 ml @ 100 mls/hr Q48H 08/30/18 16:00 08/30/18 16:00 DC Doxycycline Hyclate 100 mg/ Dextrose 100 ml @ 50 mls/hr Q12HR 08/26/18 09:00 08/30/18 08:24 50 MLS/HR Famotidine (Pepcid Vial) 20 mg QHS 08/29/18 21:00 08/29/18 20:31 20 MG Famotidine (Pepcid) 20 mg Q48H 08/29/18 09:00 08/29/18 11:29 DC Fentanyl Citrate (Fentanyl 2ml Vial) 50 mcg PRN Q4HRS PRN 08/28/18 15:30 08/28/18 21:44 50 MCG Haloperidol Lactate (Haldol Inj) 5 mg PRN Q6HRS PRN 08/28/18 12:00 08/29/18 20:31 5 MG Heparin Sodium (Porcine) (Heparin Sodium) 10,000 unit STK-MED ONCE 08/26/18 12:49 08/26/18 12:50 DC Ibuprofen (Motrin) 600 mg 1X ONCE 08/25/18 19:45 08/25/18 19:49 DC 08/25/18 20:38 600 MG Info (PHARMACY MONITORING -- do not chart) 1 each PRN DAILY PRN 08/28/18 15:30 UNV Lactobacillus Rhamnosus (Culturelle) 1 cap BID 08/26/18 21:00 08/28/18 08:01 1 CAP Lidocaine HCl (Glydo (Lidocaine) Jelly) 1 meng 1X STAT 08/28/18 10:16 08/28/18 10:19 DC 08/28/18 10:16 1 MENG Lidocaine/Sodium Bicarbonate (Buffered Lidocaine 1%) 3 ml 1X ONCE 08/28/18 10:30 08/28/18 10:31 DC Magnesium Sulfate 50 ml @ 25 mls/hr 1X ONCE 08/25/18 21:15 08/25/18 23:14 DC 08/25/18 23:51 25 MLS/HR Meropenem 500 mg/ Sodium Chloride 50 ml @ 100 mls/hr DAILY 08/26/18 09:00 08/30/18 08:17 DC 08/29/18 10:13 100 MLS/HR Norepinephrine Bitartrate 250 ml @ 0 mls/hr CONT PRN 08/26/18 09:15 08/27/18 10:21 1.88 MLS/HR Ondansetron HCl (Zofran) 4 mg PRN Q8HRS PRN 08/25/18 21:15 08/26/18 21:14 DC Piperacillin Sod/ Tazobactam Sod 4.5 gm/Sodium Chloride 100 ml @ 200 mls/hr 1X ONCE 08/25/18 21:15 08/25/18 21:44 DC Sodium Chloride 1,000 ml @ 400 mls/hr Q2H30M PRN 08/28/18 14:00 08/29/18 01:59 DC Sodium Chloride (Normal Saline Flush) 10 ml 1X PRN PRN 08/27/18 11:30 08/28/18 11:29 DC Vancomycin HCl 2 gm/Sodium Chloride 500 ml @ 250 mls/hr 1X ONCE 08/25/18 21:30 08/25/18 23:29 DC 08/25/18 23:10 250 MLS/HR Lab Laboratory Tests Test 08/29/18 13:30 08/30/18 05:30 CSF Tube Number 4 CSF Color Yellow CSF Clarity Clear CSF WBC 112 /cmm (Not Established) CSF RBC 11 /cmm (Not Established) CSF Mononuclear WBCs % 89 % CSF Polynuclear WBCs (%) 11 % CSF Glucose 52 mg/dL (37-70) CSF Total Protein 160.2 mg/dL (15.0-45.0) White Blood Count 13.0 x10^3/uL (4.0-11.0) Red Blood Count 2.92 x10^6/uL (4.30-5.70) Hemoglobin 8.4 g/dL (13.0-17.5) Hematocrit 24.7 % (39.0-53.0) Mean Corpuscular Volume 84 fL (79-100) Mean Corpuscular Hemoglobin 29 pg (25-35) Mean Corpuscular Hemoglobin Concent 34 g/dL (31-37) Red Cell Distribution Width 16.5 % (11.5-14.5) Platelet Count 67 x10^3/uL (140-400) Neutrophils (%) (Auto) 54 % (31-73) Lymphocytes (%) (Auto) 29 % (24-48) Monocytes (%) (Auto) 14 % (0-9) Eosinophils (%) (Auto) 1 % (0-3) Basophils (%) (Auto) 1 % (0-3) Neutrophils # (Auto) 7.1 x10^3uL (1.8-7.7) Lymphocytes # (Auto) 3.8 x10^3/uL (1.0-4.8) Monocytes # (Auto) 1.9 x10^3/uL (0.0-1.1) Eosinophils # (Auto) 0.1 x10^3/uL (0.0-0.7) Basophils # (Auto) 0.1 x10^3/uL (0.0-0.2) Sodium Level 140 mmol/L (136-145) Potassium Level 3.7 mmol/L (3.5-5.1) Chloride Level 95 mmol/L (98-107) Carbon Dioxide Level 31 mmol/L (21-32) Anion Gap 14 (6-14) Blood Urea Nitrogen 88 mg/dL (8-26) Creatinine 7.9 mg/dL (0.7-1.3) Estimated GFR (Cockcroft-Gault) 7.2 Glucose Level 110 mg/dL (70-99) Calcium Level 7.1 mg/dL (8.5-10.1) Phosphorus Level 5.0 mg/dL (2.6-4.7) Albumin 2.2 g/dL (3.4-5.0) Results All relevant outside records, renal labs, imaging studies, telemetry/EKG's were reviewed. Other CxR-- IMPRESSION: Mild bilateral perihilar infiltrates have developed suggesting pulmonary edema. OG CHAVES MD August 30, 2018 10:13
--- NOTE | 2018-08-30 10:26 | NUR ---
Doxycycline infused over 2 hours per order, unable to give acyclvir at this time as patient to have dialysis now. Will give after dialysis completed. Patient and verb. understanding POC. Continue cares and monitor.
[2018-08-30 10:28] LABS: CSF MON % 89 %
--- NOTE | 2018-08-30 10:48 | PDOC ---
SURGICAL PROGRESS NOTE Subjective says he feels better denies abdominal pain Vital Signs Vital Signs Date Time Temp Pulse Resp B/P (MAP) Pulse Ox O2 Delivery O2 Flow Rate FiO2 08/30/18 10:00 72 30 154/77 (102) 93 Venturi Mask 08/30/18 07:56 15.0 08/30/18 07:00 98.0 98.0 I&O Intake and Output 08/30/18 07:00 Intake Total 100 ml Output Total 1500 ml Balance -1400 ml Intake Oral 0 ml IV Total 100 ml Output Urine Total 0 ml Gastric Drainage Total 1500 ml General: Alert Abdomen: Soft, Other (slightly distended) Labs Laboratory Tests Test 08/29/18 03:50 08/29/18 13:30 08/30/18 05:30 White Blood Count 11.3 x10^3/uL (4.0-11.0) 13.0 x10^3/uL (4.0-11.0) Red Blood Count 2.86 x10^6/uL (4.30-5.70) 2.92 x10^6/uL (4.30-5.70) Hemoglobin 8.2 g/dL (13.0-17.5) 8.4 g/dL (13.0-17.5) Hematocrit 24.0 % (39.0-53.0) 24.7 % (39.0-53.0) Mean Corpuscular Volume 84 fL (79-100) 84 fL (79-100) Mean Corpuscular Hemoglobin 29 pg (25-35) 29 pg (25-35) Mean Corpuscular Hemoglobin Concent 34 g/dL (31-37) 34 g/dL (31-37) Red Cell Distribution Width 15.9 % (11.5-14.5) 16.5 % (11.5-14.5) Platelet Count 58 x10^3/uL (140-400) 67 x10^3/uL (140-400) Neutrophils (%) (Auto) 63 % (31-73) 54 % (31-73) Lymphocytes (%) (Auto) 23 % (24-48) 29 % (24-48) Monocytes (%) (Auto) 12 % (0-9) 14 % (0-9) Eosinophils (%) (Auto) 0 % (0-3) 1 % (0-3) Basophils (%) (Auto) 2 % (0-3) 1 % (0-3) Neutrophils # (Auto) 7.1 x10^3uL (1.8-7.7) 7.1 x10^3uL (1.8-7.7) Lymphocytes # (Auto) 2.6 x10^3/uL (1.0-4.8) 3.8 x10^3/uL (1.0-4.8) Monocytes # (Auto) 1.3 x10^3/uL (0.0-1.1) 1.9 x10^3/uL (0.0-1.1) Eosinophils # (Auto) 0.0 x10^3/uL (0.0-0.7) 0.1 x10^3/uL (0.0-0.7) Basophils # (Auto) 0.3 x10^3/uL (0.0-0.2) 0.1 x10^3/uL (0.0-0.2) Sodium Level 136 mmol/L (136-145) 140 mmol/L (136-145) Potassium Level 3.5 mmol/L (3.5-5.1) 3.7 mmol/L (3.5-5.1) Chloride Level 96 mmol/L (98-107) 95 mmol/L (98-107) Carbon Dioxide Level 32 mmol/L (21-32) 31 mmol/L (21-32) Anion Gap 8 (6-14) 14 (6-14) Blood Urea Nitrogen 55 mg/dL (8-26) 88 mg/dL (8-26) Creatinine 5.2 mg/dL (0.7-1.3) 7.9 mg/dL (0.7-1.3) Estimated GFR (Cockcroft-Gault) 11.7 7.2 BUN/Creatinine Ratio 11 (6-20) Glucose Level 111 mg/dL (70-99) 110 mg/dL (70-99) Calcium Level 7.1 mg/dL (8.5-10.1) 7.1 mg/dL (8.5-10.1) Total Bilirubin 6.5 mg/dL (0.2-1.0) Aspartate Amino Transf (AST/SGOT) 459 U/L (15-37) Alanine Aminotransferase (ALT/SGPT) 110 U/L (16-63) Alkaline Phosphatase 289 U/L (46-116) Total Protein 5.1 g/dL (6.4-8.2) Albumin 2.2 g/dL (3.4-5.0) 2.2 g/dL (3.4-5.0) Albumin/Globulin Ratio 0.8 (1.0-1.7) CSF Tube Number 4 CSF Color Yellow CSF Clarity Clear CSF WBC 112 /cmm (Not Established) CSF RBC 11 /cmm (Not Established) CSF Mononuclear WBCs % 89 % CSF Polynuclear WBCs (%) 11 % CSF Glucose 52 mg/dL (37-70) CSF Total Protein 160.2 mg/dL (15.0-45.0) Phosphorus Level 5.0 mg/dL (2.6-4.7) Laboratory Tests Test 08/29/18 13:30 08/30/18 05:30 CSF Tube Number 4 CSF Color Yellow CSF Clarity Clear CSF WBC 112 /cmm (Not Established) CSF RBC 11 /cmm (Not Established) CSF Mononuclear WBCs % 89 % CSF Polynuclear WBCs (%) 11 % CSF Glucose 52 mg/dL (37-70) CSF Total Protein 160.2 mg/dL (15.0-45.0) White Blood Count 13.0 x10^3/uL (4.0-11.0) Red Blood Count 2.92 x10^6/uL (4.30-5.70) Hemoglobin 8.4 g/dL (13.0-17.5) Hematocrit 24.7 % (39.0-53.0) Mean Corpuscular Volume 84 fL (79-100) Mean Corpuscular Hemoglobin 29 pg (25-35) Mean Corpuscular Hemoglobin Concent 34 g/dL (31-37) Red Cell Distribution Width 16.5 % (11.5-14.5) Platelet Count 67 x10^3/uL (140-400) Neutrophils (%) (Auto) 54 % (31-73) Lymphocytes (%) (Auto) 29 % (24-48) Monocytes (%) (Auto) 14 % (0-9) Eosinophils (%) (Auto) 1 % (0-3) Basophils (%) (Auto) 1 % (0-3) Neutrophils # (Auto) 7.1 x10^3uL (1.8-7.7) Lymphocytes # (Auto) 3.8 x10^3/uL (1.0-4.8) Monocytes # (Auto) 1.9 x10^3/uL (0.0-1.1) Eosinophils # (Auto) 0.1 x10^3/uL (0.0-0.7) Basophils # (Auto) 0.1 x10^3/uL (0.0-0.2) Sodium Level 140 mmol/L (136-145) Potassium Level 3.7 mmol/L (3.5-5.1) Chloride Level 95 mmol/L (98-107) Carbon Dioxide Level 31 mmol/L (21-32) Anion Gap 14 (6-14) Blood Urea Nitrogen 88 mg/dL (8-26) Creatinine 7.9 mg/dL (0.7-1.3) Estimated GFR (Cockcroft-Gault) 7.2 Glucose Level 110 mg/dL (70-99) Calcium Level 7.1 mg/dL (8.5-10.1) Phosphorus Level 5.0 mg/dL (2.6-4.7) Albumin 2.2 g/dL (3.4-5.0) Problem List Problems Medical Problems: (1) Acute renal failure Status: Acute Assessment/Plan sepsis renal failure respiratory compromise continue supportive care no acute surgical needs TR AMBROSE MD August 30, 2018 10:48
[2018-08-30] MEDS ORDERED: IV NORMAL SALINE 1000ML BAG 1,000 ML IV PRN ×2 (11:02)
[2018-08-30] MEDS ORDERED: DIALYSIS PATIENT. MC PRN ×2 (11:15)
--- NOTE | 2018-08-30 11:25 | PDOC ---
Subjective: Subjective: I saw him earlier this morning. No abd pain, no flatus. Objective: Objective: 2500mL charted from . Reviewed ID note - Ehrlichiae Ab/PCR not available here? Vital Signs: Vital Signs Date Time Temp Pulse Resp B/P (MAP) Pulse Ox O2 Delivery O2 Flow Rate FiO2 08/30/18 11:00 73 37 145/74 (97) 96 Venturi Mask 08/30/18 07:56 15.0 08/30/18 07:00 98.0 98.0 Labs: Laboratory Tests Test 08/29/18 13:30 08/30/18 05:30 CSF Tube Number 4 CSF Color Yellow CSF Clarity Clear CSF WBC 112 /cmm CSF RBC 11 /cmm CSF Mononuclear WBCs % 89 % CSF Polynuclear WBCs (%) 11 % CSF Glucose 52 mg/dL CSF Total Protein 160.2 mg/dL White Blood Count 13.0 x10^3/uL Red Blood Count 2.92 x10^6/uL Hemoglobin 8.4 g/dL Hematocrit 24.7 % Mean Corpuscular Volume 84 fL Mean Corpuscular Hemoglobin 29 pg Mean Corpuscular Hemoglobin Concent 34 g/dL Red Cell Distribution Width 16.5 % Platelet Count 67 x10^3/uL Neutrophils (%) (Auto) 54 % Lymphocytes (%) (Auto) 29 % Monocytes (%) (Auto) 14 % Eosinophils (%) (Auto) 1 % Basophils (%) (Auto) 1 % Neutrophils # (Auto) 7.1 x10^3uL Lymphocytes # (Auto) 3.8 x10^3/uL Monocytes # (Auto) 1.9 x10^3/uL Eosinophils # (Auto) 0.1 x10^3/uL Basophils # (Auto) 0.1 x10^3/uL Sodium Level 140 mmol/L Potassium Level 3.7 mmol/L Chloride Level 95 mmol/L Carbon Dioxide Level 31 mmol/L Anion Gap 14 Blood Urea Nitrogen 88 mg/dL Creatinine 7.9 mg/dL Estimated GFR (Cockcroft-Gault) 7.2 Glucose Level 110 mg/dL Calcium Level 7.1 mg/dL Phosphorus Level 5.0 mg/dL Albumin 2.2 g/dL BLOOD CULTURE Preliminary NO GROWTH AFTER 4 DAYS PE: GEN: NAD LUNGS: breathing mask HEART: RRR ABD: quiet, softer, non-tender NEURO/PSYCH: A & O 3 A/P: Suspected tick-borne illness Resp failure, RADHA, anemia, thrombocytopenia, elevated LFTs Gastric distention, hepatic steatosis, mild splenomegaly -- Recheck LFTs, continue NG. Other per Dr. Rizo. ELVIA NOE August 30, 2018 11:25
--- NOTE | 2018-08-30 12:00 | PDOC ---
[employer] PROGRESS NOTE Chief Complaint Chief Complaint Mental status change and sepsis tick bite History of Present Illness History of Present Illness Patient seen and examined in ICU He is currently on Ventimask Does not wake up and talk LP results reveal- Protein of 160.2 and Glucose of 52 On IV Doxycycline and Acyclovir HD periodically 8 consultants Discussed with Nephro, Nurse and Vitals Vitals Vital Signs Date Time Temp Pulse Resp B/P (MAP) Pulse Ox O2 Delivery O2 Flow Rate FiO2 08/30/18 11:00 73 37 145/74 (97) 96 Venturi Mask 08/30/18 07:56 15.0 08/30/18 07:00 98.0 98.0 Physical Exam Physical Exam GENERAL: awake on bipap HEENT: Pupils equally round, reactive. Normal conjunctivae. Oral cavity: Pharynx pink, dry. NECK: Supple. LUNGS: Clear to auscultation. HEART: S1 and S2. ABDOMEN: Obese, soft, nontender with bowel sounds present. EXTREMITIES: No gross edema or cyanosis. SKIN: Warm without rash. Left knee has several scabs/scarring. NEUROLOGIC: Alert and oriented, fluctuating MS General: Alert Heart: Regular rate, Normal S1, Normal S2 Lungs: Crackles Abdomen: Soft, Other (slightly distended) Extremities: No clubbing, No cyanosis, No edema Skin: No significant lesion, Other (healing rash and excoriations on Left lower extremity. No obvious petechiae) Labs Labs: Laboratory Tests Test 08/29/18 13:30 08/30/18 05:30 CSF Tube Number 4 CSF Color Yellow CSF Clarity Clear CSF WBC 112 /cmm (Not Established) CSF RBC 11 /cmm (Not Established) CSF Mononuclear WBCs % 89 % CSF Polynuclear WBCs (%) 11 % CSF Glucose 52 mg/dL (37-70) CSF Total Protein 160.2 mg/dL (15.0-45.0) White Blood Count 13.0 x10^3/uL (4.0-11.0) Red Blood Count 2.92 x10^6/uL (4.30-5.70) Hemoglobin 8.4 g/dL (13.0-17.5) Hematocrit 24.7 % (39.0-53.0) Mean Corpuscular Volume 84 fL (79-100) Mean Corpuscular Hemoglobin 29 pg (25-35) Mean Corpuscular Hemoglobin Concent 34 g/dL (31-37) Red Cell Distribution Width 16.5 % (11.5-14.5) Platelet Count 67 x10^3/uL (140-400) Neutrophils (%) (Auto) 54 % (31-73) Lymphocytes (%) (Auto) 29 % (24-48) Monocytes (%) (Auto) 14 % (0-9) Eosinophils (%) (Auto) 1 % (0-3) Basophils (%) (Auto) 1 % (0-3) Neutrophils # (Auto) 7.1 x10^3uL (1.8-7.7) Lymphocytes # (Auto) 3.8 x10^3/uL (1.0-4.8) Monocytes # (Auto) 1.9 x10^3/uL (0.0-1.1) Eosinophils # (Auto) 0.1 x10^3/uL (0.0-0.7) Basophils # (Auto) 0.1 x10^3/uL (0.0-0.2) Sodium Level 140 mmol/L (136-145) Potassium Level 3.7 mmol/L (3.5-5.1) Chloride Level 95 mmol/L (98-107) Carbon Dioxide Level 31 mmol/L (21-32) Anion Gap 14 (6-14) Blood Urea Nitrogen 88 mg/dL (8-26) Creatinine 7.9 mg/dL (0.7-1.3) Estimated GFR (Cockcroft-Gault) 7.2 Glucose Level 110 mg/dL (70-99) Calcium Level 7.1 mg/dL (8.5-10.1) Phosphorus Level 5.0 mg/dL (2.6-4.7) Albumin 2.2 g/dL (3.4-5.0) Review of Systems Review of Systems Unable to obtain Assessment and Plan Assessmemt and Plan Problems Medical Problems: (1) Acute renal failure Status: Acute Assessment: 1. 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 severe thrombocytopenia 3. severe sepsis 4. recent tick bite 5. Altered mental status, encephalopathy, acute 6. morbid obesity 7. No acute abdominal or pelvic abnormality.BY CT 8. Minimal fatty infiltration of the liver. 9. Mild atelectasis in the bilateral lower lobes. 10. Acute renal failure 11. Mild elevation troponin i, 12. transaminitis 13. diarrhea 14. lactic acidosis 15. hx mild hypertension 16 Moderate atelectasis/consolidation posteriorly in both lower lobes. 17.Gastric distention. 18. Mild nonspecific streaky inflammation in the lower retroperitoneum and pelvis. Plan: Start TPN IV antibiotics, emperic including Doxycycline IV antiviral- emperic including Acyclovir ICU BED PRN IV PRESSORS Ehrlichiosis antibody serology- Unobtainable here? IV fluid support Acute hepatitis panel stool enteric pathogens sepsis protocol right internal jugular triple-lumen central venous catheter placed IJ 08/27 ID consult Nephrology consult Neurology consult HEME consult Cardiology consult GI consult Appreciate subspecialists input Code status: Full CXR and LP results today reviewed Physical critically ill patient Total time 32 minutes Comment Review of Relevant I have reviewed the following items gera (where applicable) has been applied. Labs Laboratory Tests Test 08/29/18 03:50 08/29/18 13:30 08/30/18 05:30 White Blood Count 11.3 x10^3/uL (4.0-11.0) 13.0 x10^3/uL (4.0-11.0) Red Blood Count 2.86 x10^6/uL (4.30-5.70) 2.92 x10^6/uL (4.30-5.70) Hemoglobin 8.2 g/dL (13.0-17.5) 8.4 g/dL (13.0-17.5) Hematocrit 24.0 % (39.0-53.0) 24.7 % (39.0-53.0) Mean Corpuscular Volume 84 fL (79-100) 84 fL (79-100) Mean Corpuscular Hemoglobin 29 pg (25-35) 29 pg (25-35) Mean Corpuscular Hemoglobin Concent 34 g/dL (31-37) 34 g/dL (31-37) Red Cell Distribution Width 15.9 % (11.5-14.5) 16.5 % (11.5-14.5) Platelet Count 58 x10^3/uL (140-400) 67 x10^3/uL (140-400) Neutrophils (%) (Auto) 63 % (31-73) 54 % (31-73) Lymphocytes (%) (Auto) 23 % (24-48) 29 % (24-48) Monocytes (%) (Auto) 12 % (0-9) 14 % (0-9) Eosinophils (%) (Auto) 0 % (0-3) 1 % (0-3) Basophils (%) (Auto) 2 % (0-3) 1 % (0-3) Neutrophils # (Auto) 7.1 x10^3uL (1.8-7.7) 7.1 x10^3uL (1.8-7.7) Lymphocytes # (Auto) 2.6 x10^3/uL (1.0-4.8) 3.8 x10^3/uL (1.0-4.8) Monocytes # (Auto) 1.3 x10^3/uL (0.0-1.1) 1.9 x10^3/uL (0.0-1.1) Eosinophils # (Auto) 0.0 x10^3/uL (0.0-0.7) 0.1 x10^3/uL (0.0-0.7) Basophils # (Auto) 0.3 x10^3/uL (0.0-0.2) 0.1 x10^3/uL (0.0-0.2) Sodium Level 136 mmol/L (136-145) 140 mmol/L (136-145) Potassium Level 3.5 mmol/L (3.5-5.1) 3.7 mmol/L (3.5-5.1) Chloride Level 96 mmol/L (98-107) 95 mmol/L (98-107) Carbon Dioxide Level 32 mmol/L (21-32) 31 mmol/L (21-32) Anion Gap 8 (6-14) 14 (6-14) Blood Urea Nitrogen 55 mg/dL (8-26) 88 mg/dL (8-26) Creatinine 5.2 mg/dL (0.7-1.3) 7.9 mg/dL (0.7-1.3) Estimated GFR (Cockcroft-Gault) 11.7 7.2 BUN/Creatinine Ratio 11 (6-20) Glucose Level 111 mg/dL (70-99) 110 mg/dL (70-99) Calcium Level 7.1 mg/dL (8.5-10.1) 7.1 mg/dL (8.5-10.1) Total Bilirubin 6.5 mg/dL (0.2-1.0) Aspartate Amino Transf (AST/SGOT) 459 U/L (15-37) Alanine Aminotransferase (ALT/SGPT) 110 U/L (16-63) Alkaline Phosphatase 289 U/L (46-116) Total Protein 5.1 g/dL (6.4-8.2) Albumin 2.2 g/dL (3.4-5.0) 2.2 g/dL (3.4-5.0) Albumin/Globulin Ratio 0.8 (1.0-1.7) CSF Tube Number 4 CSF Color Yellow CSF Clarity Clear CSF WBC 112 /cmm (Not Established) CSF RBC 11 /cmm (Not Established) CSF Mononuclear WBCs % 89 % CSF Polynuclear WBCs (%) 11 % CSF Glucose 52 mg/dL (37-70) CSF Total Protein 160.2 mg/dL (15.0-45.0) Phosphorus Level 5.0 mg/dL (2.6-4.7) Laboratory Tests Test 08/29/18 13:30 08/30/18 05:30 CSF Tube Number 4 CSF Color Yellow CSF Clarity Clear CSF WBC 112 /cmm (Not Established) CSF RBC 11 /cmm (Not Established) CSF Mononuclear WBCs % 89 % CSF Polynuclear WBCs (%) 11 % CSF Glucose 52 mg/dL (37-70) CSF Total Protein 160.2 mg/dL (15.0-45.0) White Blood Count 13.0 x10^3/uL (4.0-11.0) Red Blood Count 2.92 x10^6/uL (4.30-5.70) Hemoglobin 8.4 g/dL (13.0-17.5) Hematocrit 24.7 % (39.0-53.0) Mean Corpuscular Volume 84 fL (79-100) Mean Corpuscular Hemoglobin 29 pg (25-35) Mean Corpuscular Hemoglobin Concent 34 g/dL (31-37) Red Cell Distribution Width 16.5 % (11.5-14.5) Platelet Count 67 x10^3/uL (140-400) Neutrophils (%) (Auto) 54 % (31-73) Lymphocytes (%) (Auto) 29 % (24-48) Monocytes (%) (Auto) 14 % (0-9) Eosinophils (%) (Auto) 1 % (0-3) Basophils (%) (Auto) 1 % (0-3) Neutrophils # (Auto) 7.1 x10^3uL (1.8-7.7) Lymphocytes # (Auto) 3.8 x10^3/uL (1.0-4.8) Monocytes # (Auto) 1.9 x10^3/uL (0.0-1.1) Eosinophils # (Auto) 0.1 x10^3/uL (0.0-0.7) Basophils # (Auto) 0.1 x10^3/uL (0.0-0.2) Sodium Level 140 mmol/L (136-145) Potassium Level 3.7 mmol/L (3.5-5.1) Chloride Level 95 mmol/L (98-107) Carbon Dioxide Level 31 mmol/L (21-32) Anion Gap 14 (6-14) Blood Urea Nitrogen 88 mg/dL (8-26) Creatinine 7.9 mg/dL (0.7-1.3) Estimated GFR (Cockcroft-Gault) 7.2 Glucose Level 110 mg/dL (70-99) Calcium Level 7.1 mg/dL (8.5-10.1) Phosphorus Level 5.0 mg/dL (2.6-4.7) Albumin 2.2 g/dL (3.4-5.0) Microbiology 08/26/18 Blood Culture - Preliminary, Resulted NO GROWTH AFTER 4 DAYS 08/29/18 CSF Gram Stain - Final, Complete 08/25/18 Throat Culture - Final, Complete 08/25/18 - Final, Complete Medications Current Medications Sodium Chloride 1,000 ml @ 1,000 mls/hr 1X ONCE IV Last administered on 08/25/18at 20:38; Start 08/25/18 at 19:15; Stop 08/25/18 at 20:14; Status DC Ibuprofen (Motrin) 600 mg 1X ONCE PO Last administered on 08/25/18at 20:38; Start 08/25/18 at 19:45; Stop 08/25/18 at 19:49; Status DC Sodium Chloride 1,000 ml @ 1,000 mls/hr 1X ONCE IV Last administered on 08/25/18at 20:30; Start 08/25/18 at 20:30; Stop 08/25/18 at 21:29; Status DC Ceftriaxone Sodium (Rocephin) 1 gm 1X ONCE IVP Last administered on 08/25/18at 20:36; Start 08/25/18 at 20:30; Stop 08/25/18 at 20:31; Status DC Vancomycin HCl 2 gm/Sodium Chloride 500 ml @ 250 mls/hr 1X ONCE IV Last administered on 08/25/18at 23:10; Start 08/25/18 at 21:30; Stop 08/25/18 at 23:29; Status DC Sodium Chloride 1,000 ml @ 1,000 mls/hr 1X ONCE IV Last administered on 08/25/18at 23:51; Start 08/25/18 at 21:00; Stop 08/25/18 at 21:59; Status DC Piperacillin Sod/ Tazobactam Sod 4.5 gm/Sodium Chloride 100 ml @ 200 mls/hr 1X ONCE IV ; Start 08/25/18 at 21:15; Stop 08/25/18 at 21:44; Status DC Aztreonam (Azactam) 2 gm 1X ONCE IVP Last administered on 08/25/18at 21:15; Start 08/25/18 at 21:15; Stop 08/25/18 at 21:16; Status DC Magnesium Sulfate 50 ml @ 25 mls/hr 1X ONCE IV Last administered on 08/25/18at 23:51; Start 08/25/18 at 21:15; Stop 08/25/18 at 23:14; Status DC Ondansetron HCl (Zofran) 4 mg PRN Q8HRS PRN IV NAUSEA/VOMITING; Start 08/25/18 at 21:15; Stop 08/26/18 at 21:14; Status DC Acetaminophen (Tylenol) 650 mg PRN Q4HRS PRN PO FEVER; Start 08/25/18 at 21:15; Stop 08/26/18 at 21:14; Status DC Sodium Chloride 1,000 ml @ 125 mls/hr 1X ONCE IV Last administered on at 23:09; Start 08/25/18 at 21:15; Stop 08/26/18 at 05:14; Status DC Daptomycin 610 mg/ Sodium Chloride 50 ml @ 100 mls/hr QODAY IV Last administered on 08/27/18at 08:59; Start 08/27/18 at 09:00; Stop 08/28/18 at 15:40; Status DC Meropenem 500 mg/ Sodium Chloride 50 ml @ 100 mls/hr 1X ONCE IV Last administered on 08/25/18at 22:12; Start 08/25/18 at 22:00; Stop 08/25/18 at 22:29; Status DC Doxycycline Hyclate 100 mg/ Dextrose 100 ml @ 50 mls/hr Q12HR IV Last administered on 08/30/18at 08:24; Start 08/26/18 at 09:00 Meropenem 500 mg/ Sodium Chloride 50 ml @ 100 mls/hr DAILY IV Last administered on 08/29/18at 10:13; Start 08/26/18 at 09:00; Stop 08/30/18 at 08:17; Status DC Sodium Chloride (Normal Saline Flush) 10 ml QSHIFT PRN IV AFTER MEDS AND BLOOD DRAWS; Start 08/26/18 at 09:15 Norepinephrine Bitartrate 250 ml @ 0 mls/hr CONT PRN IV PER PROTOCOL Last administered on 08/27/18at 10:21; Start 08/26/18 at 09:15 Famotidine (Pepcid) 20 mg DAILY PO Last administered on 08/27/18at 08:14; Start 08/26/18 at 12:00; Stop 08/27/18 at 14:36; Status DC Sodium Chloride 1,000 ml @ 1,000 mls/hr Q1H PRN IV hypotension; Start 08/26/18 at 11:51; Stop 08/26/18 at 17:50; Status DC Sodium Chloride (Normal Saline Flush) 10 ml 1X PRN PRN IV AP catheter pack; Start 08/26/18 at 12:00; Stop 08/27/18 at 11:59; Status DC Sodium Chloride (Normal Saline Flush) 10 ml 1X PRN PRN IV REFINERY PIPELINE 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; Start 08/26/18 at 12:00; Stop 08/27/18 at 11:59; Status DC Sodium Chloride 1,000 ml @ 400 mls/hr Q2H30M PRN IV PATENCY; Start 08/26/18 at 11:51; Stop 08/26/18 at 23:50; Status DC Info (PHARMACY MONITORING -- do not chart) 1 each PRN DAILY PRN MC SEE COMMENTS; Start 08/26/18 at 12:00; Status UNV Info (PHARMACY MONITORING -- do not chart) 1 each PRN DAILY PRN MC SEE COMMENTS ; Start 08/26/18 at 12:00 Lidocaine/Sodium Bicarbonate (Buffered Lidocaine 1%) 4 ml 1X ONCE INJ Last administered on 08/26/18at 12:45; Start 08/26/18 at 12:45; Stop 08/26/18 at 12:48; Status DC Heparin Sodium (Porcine) (Heparin Sodium) 2,500 unit 1X ONCE INT CAT Last administered on 08/26/18at 12:45; Start 08/26/18 at 12:45; Stop 08/26/18 at 12:48; Status DC Lidocaine/Sodium Bicarbonate (Buffered Lidocaine 1%) 3 ml STK-MED ONCE .ROUTE ; Start 08/26/18 at 12:49; Stop 08/26/18 at 12:50; Status DC Heparin Sodium (Porcine) (Heparin Sodium) 10,000 unit STK-MED ONCE .ROUTE ; Start 08/26/18 at 12:49; Stop 08/26/18 at 12:50; Status DC Lactobacillus Rhamnosus (Culturelle) 1 cap BID PO Last administered on 08/28/18at 08:01; Start 08/26/18 at 21:00 Acetaminophen (Tylenol) 325 mg STK-MED ONCE PO ; Start 08/27/18 at 00:43; Stop 08/27/18 at 00:44; Status DC Sodium Chloride 1,000 ml @ 1,000 mls/hr 1X ONCE IV Last administered on 08/27/18at 11:05; Start 08/27/18 at 10:30; Stop 08/27/18 at 11:29; Status DC Sodium Chloride 1,000 ml @ 1,000 mls/hr Q1H PRN IV hypotension; Start 08/27/18 at 11:28; Stop 08/27/18 at 17:27; Status DC Albumin Human 200 ml @ 200 mls/hr 1X PRN PRN IV Hypotension; Start 08/27/18 at 11:30; Stop 08/27/18 at 17:29; Status DC Sodium Chloride (Normal Saline Flush) 10 ml 1X PRN PRN IV AP catheter pack; Start 08/27/18 at 11:30; Stop 08/28/18 at 11:29; Status DC Sodium Chloride (Normal Saline Flush) 10 ml 1X PRN PRN IV REFINERY PIPELINE 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; Start 08/27/18 at 11:30; Stop 08/28/18 at 11:29; Status DC Sodium Chloride 1,000 ml @ 400 mls/hr Q2H30M PRN IV PATENCY; Start 08/27/18 at 11:28; Stop 08/27/18 at 23:27; Status DC Info (PHARMACY MONITORING -- do not chart) 1 each PRN DAILY PRN MC SEE COMMENTS; Start 08/27/18 at 11:30; Status UNV Info (PHARMACY MONITORING -- do not chart) 1 each PRN DAILY PRN MC SEE COMMENTS; Start 08/27/18 at 11:30; Status UNV Famotidine (Pepcid) 20 mg Q48H PO ; Start 08/29/18 at 09:00; Stop 08/29/18 at 11:29; Status DC Acetaminophen (Tylenol) 650 mg PRN Q6HRS PRN PO pain/fever; Start 08/27/18 at 21:15 Acetaminophen (Tylenol Supp) 650 mg PRN Q6HRS PRN FL MILD PAIN / TEMP Last administered on 08/27/18at 21:25; Start 08/27/18 at 21:15 Fentanyl Citrate (Fentanyl 2ml Vial) 25 mcg 1X ONCE IV Last administered on 08/28/18at 08:54; Start 08/28/18 at 08:45; Stop 08/28/18 at 08:47; Status DC Lidocaine/Sodium Bicarbonate (Buffered Lidocaine 1%) 3 ml STK-MED ONCE .ROUTE ; Start 08/28/18 at 09:55; Stop 08/28/18 at 09:56; Status DC Lidocaine HCl (Glydo (Lidocaine) Jelly) 1 meng 1X STAT MM Last administered on 08/28/18at 10:16; Start 08/28/18 at 10:16; Stop 08/28/18 at 10:19; Status DC Benzocaine (Hurricaine One) 1 spray 1X STAT MM Last administered on 08/28/18at 10:16; Start 08/28/18 at 10:16; Stop 08/28/18 at 10:19; Status DC Lidocaine/Sodium Bicarbonate (Buffered Lidocaine 1%) 3 ml 1X ONCE INJ ; Start 08/28/18 at 10:30; Stop 08/28/18 at 10:31; Status DC Haloperidol Lactate (Haldol Inj) 5 mg PRN Q6HRS PRN IVP AGITATION Last administered on 08/29/18at 20:31; Start 08/28/18 at 12:00 Fentanyl Citrate (Fentanyl 2ml Vial) 50 mcg PRN Q4HRS PRN IV PAIN Last administered on 08/28/18at 21:44; Start 08/28/18 at 15:30 Sodium Chloride 1,000 ml @ 1,000 mls/hr Q1H PRN IV hypotension; Start 08/28/18 at 14:00; Stop 08/28/18 at 19:59; Status DC Albumin Human 200 ml @ 200 mls/hr 1X PRN PRN IV Hypotension Last administered on 08/28/18at 14:50; Start 08/28/18 at 14:00 Sodium Chloride 1,000 ml @ 400 mls/hr Q2H30M PRN IV PATENCY; Start 08/28/18 at 14:00; Stop 08/29/18 at 01:59; Status DC Info (PHARMACY MONITORING -- do not chart) 1 each PRN DAILY PRN MC SEE COMMENTS; Start 08/28/18 at 15:30; Status UNV Info (PHARMACY MONITORING -- do not chart) 1 each PRN DAILY PRN MC SEE COMMENTS; Start 08/28/18 at 15:30; Status UNV Daptomycin 610 mg/ Sodium Chloride 50 ml @ 100 mls/hr Q48H IV ; Start 08/30/18 at 16:00; Stop 08/30/18 at 16:00; Status DC Famotidine (Pepcid Vial) 20 mg QHS IVP Last administered on 08/29/18at 20:31; Start 08/29/18 at 21:00 Acyclovir Sodium 340 mg/Dextrose 106.8 ml @ 106.8 mls/ hr Q12HR IV ; Start 08/30/18 at 09:00 Sodium Chloride 1,000 ml @ 1,000 mls/hr Q1H PRN IV hypotension; Start 08/30/18 at 11:02; Stop 08/30/18 at 17:01 Sodium Chloride 1,000 ml @ 400 mls/hr Q2H30M PRN IV PATENCY; Start 08/30/18 at 11:02; Stop 08/30/18 at 23:01 Info (PHARMACY MONITORING -- do not chart) 1 each PRN DAILY PRN MC SEE COMMENTS; Start 08/30/18 at 11:15; Status UNV Info (PHARMACY MONITORING -- do not chart) 1 each PRN DAILY PRN MC SEE COMMENTS; Start 08/30/18 at 11:15; Status UNV Active Scripts Active Potassium Chloride 20 Meq Tablet.er 20 Meq PO DAILY Orphenadrine Citrate 100 Mg Tablet.er 100 Mg PO Q12HR Anaprox Ds (Naproxen Sodium) 550 Mg Tablet 550 Mg PO Q12HR Reported Prednisone 20 Mg Tablet 1 Tab PO DAILY Hydrochlorothiazide Tablet (Hydrochlorothiazide) 12.5 Mg Tablet 12.5 Mg PO DAILY Shilpi Allergy (Fexofenadine Hcl) 180 Mg Tablet 1 Tab PO DAILY Vitals/I & O Vital Sign - Last 24 Hours 08/29/18 08/29/18 08/29/18 08/29/18 12:00 12:00 13:00 15:00 Temp 98.0 98.0 Pulse 53 78 78 Resp 30 32 28 B/P (MAP) 117/72 (87) 124/79 (94) 121/63 (82) Pulse Ox 93 93 92 O2 Delivery Venturi Mask Non-Rebreather Venturi Mask Venturi Mask O2 Flow Rate 15.0 08/29/18 08/29/18 08/29/18 08/29/18 16:00 16:00 17:00 18:00 Pulse 76 77 76 Resp 30 30 30 B/P (MAP) 100/54 (69) 121/57 (78) 111/62 (78) Pulse Ox 92 92 95 O2 Delivery Venturi Mask Non-Rebreather Venturi Mask Venturi Mask O2 Flow Rate 15.0 08/29/18 08/29/18 08/29/18 08/29/18 19:00 20:00 20:00 21:00 Temp 98.2 98.2 Pulse 78 76 78 Resp 32 22 31 B/P (MAP) 118/62 (80) 125/61 (82) 133/68 (89) Pulse Ox 95 96 96 O2 Delivery Venturi Mask Venturi Mask Venturi Mask Venturi Mask O2 Flow Rate 15.0 08/29/18 08/29/18 08/29/18 08/30/18 22:00 23:00 23:59 00:00 Temp 98.5 98.5 Pulse 75 77 77 Resp 30 22 30 B/P (MAP) 134/68 (90) 127/59 (81) 135/67 (89) Pulse Ox 95 96 97 O2 Delivery Venturi Mask Venturi Mask Venturi Mask Venturi Mask O2 Flow Rate 15.0 08/30/18 08/30/18 08/30/18 08/30/18 01:00 02:00 03:00 04:00 Temp 98.3 98.3 Pulse 75 72 73 73 Resp 40 26 24 26 B/P (MAP) 158/74 (102) 144/55 (84) 128/70 (89) 148/75 (99) Pulse Ox 95 95 96 95 O2 Delivery Venturi Mask Venturi Mask Venturi Mask Venturi Mask 08/30/18 08/30/18 08/30/18 08/30/18 04:00 05:00 06:00 07:00 Temp 98.0 98.0 Pulse 73 73 72 Resp 33 33 31 B/P (MAP) 121/67 (85) 139/65 (89) 145/69 (94) Pulse Ox 96 94 95 O2 Delivery Venturi Mask Venturi Mask Venturi Mask Venturi Mask O2 Flow Rate 15.0 08/30/18 08/30/18 08/30/18 08/30/18 07:56 08:16 09:07 09:19 Pulse 73 69 Resp 37 32 B/P (MAP) 132/62 (85) 132/62 (85) Pulse Ox 95 94 94 O2 Delivery Venturi Mask Venturi Mask Venturi Mask Venturi Mask O2 Flow Rate 15.0 08/30/18 08/30/18 10:00 11:00 Pulse 72 73 Resp 30 37 B/P (MAP) 154/77 (102) 145/74 (97) Pulse Ox 93 96 O2 Delivery Venturi Mask Venturi Mask Intake and Output 08/29/18 08/29/18 08/30/18 15:00 23:00 07:00 Intake Total 0 ml 0 ml 100 ml Output Total 500 ml 600 ml 400 ml Balance -500 ml -600 ml -300 ml CASTLE,NIAL K III DO August 30, 2018 12:00
[2018-08-30 12:04] LABS: ALBUMIN 2.2 g/dL (3.4-5.0); DIRECT BILIRUBIN 3.7 mg/dL (0.0-0.2); TOTAL BILIRUBIN 4.1 mg/dL (0.2-1.0); TOTAL PROTEIN 5.6 g/dL (6.4-8.2)
[2018-08-30] MEDS: TPN PER PHARMACY MC PRN (13:12)
--- NOTE | 2018-08-30 13:29 | NUR ---
Pharmacy TPN Dosing Note S: STACIE ALEGRIA is a 52 year old M Currently receiving Central Continuous TPN started 08/30/18 B:Pertinent PMH: NPO; gastric distention Height: 5 feet, 8 inches Weight: 104 kg Current diet: NPO LABS: Sodium: 140 Potassium: 3.7 Chloride: 95 Calcium: 7.1 Corrected Calcium: 8.54 Magnesium: 2 CO2: 31 SCr: 7.9 Glucose: 110 Albumin: 2.2 AST: 328 ALT: 93 TPN FORMULA: TPN TYPE: Central Continuous AMINO ACIDS: 60 gm DEXTROSE: 195 gm LIPIDS: 20 gm SODIUM CHLORIDE: 90 mEq POTASSIUM CHLORIDE: 50 mEq POTASSIUM PHOSPHATE: 3 mmol MAGNESIUM: 10 mEq CALCIUM: 10 mEq MULTIPLE VITAMIN: 10 ml TRACE ELEMENTS: 1 ml TPN PLAN: Initiate house formula TPN R: Begin TPN Will monitor electrolytes, glucose, and tolerance to TPN. Rhonda Ceballos RPH, 08/30/18 [id number]
--- NOTE | 2018-08-30 13:33 | PDOC ---
PROGRESS NOTES Assessment Assessment Metabolic encephalopathy. Confusion. Fever. Cough. Septic shock. Lactic acidosis. Renal failure on dialysis. Thrombocytopenia. Hepatomegaly. Tick bite 3 weeks ago.. Diarrhea. Elevated lipase. HTN. KIKI. Hemochromatosis Obesity. RECOMMENDATIONS/PLAN: Treat medical diseases. Brain MRI agreeable. Discussed with his at bedside in ICU on 08/28/18. OT/PT. EEG on 08/27/18: Encephalopathy. No seizure activity. HCT on 08/28/18: negative. CSF WBC 112, mono 89%, poly 11%, RBC 11, glucose 52, protein 160.2. Stool occult: positive. HISTORY OF THE PRESENT ILLNESS: 52-y-old male patient with hemochromatosis, KIKI, and HTN presented to the hospital with fevers for about 1 week. He states he was more tired and fatigue. On Mother's Day he had a fever of 101. Next day, he saw his primary care physician and was tested for flu that was negative. He was instructed to take Ibuprofen alternating with Tylenol for the fever. He did that and Monday did not have a fever. On Monday he had a severe headache. He went to Urgent [facility] in [place] and was given prednisone 20mg X 5 days at that time. He states that blood work was performed but does not know results. , he went to work with a mild headache and was tired and fatigued. night, he was found to have a fever of 104 and took ibuprofen. Monday he presented to the ED at [facility] and was evaluated. He stated that about 3 weeks ago he developed rash on his left lower extremity that he thought was poison Lexie. For the hemochromatosis, he follows with Dr. Iverson at [facility] and has been undergoing phlebotomy. His last phlebotomy was in late June of 2018. He had increased MS changes and confusion on 08/25, so Neurology was requested for consultation on 08/26. Past Medical History KIKI Hemochromatosis HTN Cardiovascular: HTN Pulmonary: No pertinent hx GI: No pertinent hx Heme/Onc: Hemochromatosis Hepatobiliary: No pertinent hx Family History His father had with hemochromatosis, of inoperable brain tumor Social History Lives at home with and three sons. 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 He denies any etoh, drugs and smoking Allergies Coded Allergies: aspirin (Verified Allergy, Intermediate, 02/03/16) pentazocine (Verified Allergy, Intermediate, 02/03/16) MEDICATIONS: Refer to MAR REVIEW OF SYSTEMS: Constitutional: Obese. Head: No traumatic brain or head injury. Skin: No edema, or rash. Ear: No infection. Eyes: No vision loss or color blindness. Nose: No bleeding or purulent discharges. Hearing: No hearing decrease. Neck: No injury. Cardiac: HTN. Pulmonary: No COPD. GI: No GI ulcer, GI bleeding. Urinary/genital: No dysuria, incontinence, urinary retention. Endocrinologic: No cousin face, craniofacial dysmorphism, polydactyly. Skeletomuscular: Generalized weakness. Neurological: see HP. Psychiatric: Denies drug use/abuse. Otherwise, not [id number] review of systems. PHYSICAL EXAMINATION: General appearance is in subacute distress. HEENT: Normocephalic and nontraumatic. Eyes, nose, ears, and throat are unremarkable. Neck is supple. No lymphadenopathy. No crepitus. Cardiovascular: S1, S2, regular rate and rhythm. Pulmonary: Clear to auscultation bilaterally. Abdomen: Bowel sounds are positive. Extremities: No rash, lesions, or edema. No restriction of range of motion NEUROLOGICAL EXAMINATION: Drowsiness. Not oriented to time, but knew in the hospital and knew his . PERRL. EOMI. CN: no focal findings. Muscle tone: within normal. Muscle strength: 4+ DTR: 2 UE, 1-2 at knee. Plantar reflex: Flexor response bilaterally Gait: not examined in bed. Sensory exam: no abnormal findings. No acute cerebellar signs elicited. F-T-N test not performed due to drowsiness.. Objective Objective Vital Signs Date Time Temp Pulse Resp B/P (MAP) Pulse Ox O2 Delivery O2 Flow Rate FiO2 08/30/18 13:00 72 35 151/82 (105) 97 Venturi Mask 08/30/18 12:34 98.4 98.4 08/30/18 07:56 15.0 Intake and Output 08/30/18 06:59 Intake Total 100 ml Output Total 2500 ml Balance -2400 ml Intake Oral 0 ml IV Total 100 ml Output Urine Total 0 ml Gastric Drainage Total 2500 ml Vitals Signs Vitals VS - Last 72 Hours, by Label Date Time Temp Pulse Resp B/P (MAP) Pulse Ox O2 Delivery O2 Flow Rate FiO2 08/30/18 13:00 72 35 151/82 (105) 97 Venturi Mask 08/30/18 12:34 98.4 68 32 153/82 (105) 97 Venturi Mask 98.4 08/30/18 12:00 Venturi Mask 08/30/18 11:00 73 37 145/74 (97) 96 Venturi Mask 08/30/18 10:00 72 30 154/77 (102) 93 Venturi Mask 08/30/18 09:19 94 Venturi Mask 08/30/18 09:07 69 32 132/62 (85) 94 Venturi Mask 08/30/18 08:16 73 37 132/62 (85) 95 Venturi Mask 08/30/18 07:56 Venturi Mask 15.0 08/30/18 07:00 98.0 72 31 145/69 (94) 95 Venturi Mask 98.0 08/30/18 06:00 73 33 139/65 (89) 94 Venturi Mask 08/30/18 05:00 73 33 121/67 (85) 96 Venturi Mask 08/30/18 04:00 Venturi Mask 15.0 08/30/18 04:00 98.3 73 26 148/75 (99) 95 Venturi Mask 98.3 08/30/18 03:00 73 24 128/70 (89) 96 Venturi Mask 08/30/18 02:00 72 26 144/55 (84) 95 Venturi Mask 08/30/18 01:00 75 40 158/74 (102) 95 Venturi Mask 08/30/18 00:00 98.5 77 30 135/67 (89) 97 Venturi Mask 98.5 08/29/18 23:59 Venturi Mask 15.0 08/29/18 23:00 77 22 127/59 (81) 96 Venturi Mask 08/29/18 22:00 75 30 134/68 (90) 95 Venturi Mask 08/29/18 21:00 78 31 133/68 (89) 96 Venturi Mask 08/29/18 20:00 98.2 76 22 125/61 (82) 96 Venturi Mask 98.2 08/29/18 20:00 Venturi Mask 15.0 08/29/18 19:00 78 32 118/62 (80) 95 Venturi Mask 08/29/18 18:00 76 30 111/62 (78) 95 Venturi Mask 08/29/18 17:00 77 30 121/57 (78) 92 Venturi Mask 08/29/18 16:00 Non-Rebreather 15.0 08/29/18 16:00 76 30 100/54 (69) 92 Venturi Mask 08/29/18 15:00 78 28 121/63 (82) 92 Venturi Mask 08/29/18 13:00 78 32 124/79 (94) 93 Venturi Mask 08/29/18 12:00 Non-Rebreather 15.0 08/29/18 12:00 98.0 53 30 117/72 (87) 93 Venturi Mask 98.0 08/29/18 11:00 78 30 138/78 (98) 94 Venturi Mask 08/29/18 10:00 83 32 139/64 (89) 96 Venturi Mask 08/29/18 09:00 79 32 128/63 (84) 100 NonRebreather Mask 15.0 08/29/18 08:00 Non-Rebreather 15.0 08/29/18 08:00 97.8 82 25 110/61 (77) 100 NonRebreather Mask 15.0 97.8 08/29/18 07:00 85 27 117/59 (78) 96 NonRebreather Mask 15.0 Laboratory Laboratory Laboratory Tests Test 08/29/18 13:30 08/30/18 05:30 08/30/18 05:35 CSF Tube Number 4 CSF Color Yellow CSF Clarity Clear CSF WBC 112 /cmm (Not Established) CSF RBC 11 /cmm (Not Established) CSF Mononuclear WBCs % 89 % CSF Polynuclear WBCs (%) 11 % CSF Glucose 52 mg/dL (37-70) CSF Total Protein 160.2 mg/dL (15.0-45.0) White Blood Count 13.0 x10^3/uL (4.0-11.0) Red Blood Count 2.92 x10^6/uL (4.30-5.70) Hemoglobin 8.4 g/dL (13.0-17.5) Hematocrit 24.7 % (39.0-53.0) Mean Corpuscular Volume 84 fL (79-100) Mean Corpuscular Hemoglobin 29 pg (25-35) Mean Corpuscular Hemoglobin Concent 34 g/dL (31-37) Red Cell Distribution Width 16.5 % (11.5-14.5) Platelet Count 67 x10^3/uL (140-400) Neutrophils (%) (Auto) 54 % (31-73) Lymphocytes (%) (Auto) 29 % (24-48) Monocytes (%) (Auto) 14 % (0-9) Eosinophils (%) (Auto) 1 % (0-3) Basophils (%) (Auto) 1 % (0-3) Neutrophils # (Auto) 7.1 x10^3uL (1.8-7.7) Lymphocytes # (Auto) 3.8 x10^3/uL (1.0-4.8) Monocytes # (Auto) 1.9 x10^3/uL (0.0-1.1) Eosinophils # (Auto) 0.1 x10^3/uL (0.0-0.7) Basophils # (Auto) 0.1 x10^3/uL (0.0-0.2) Sodium Level 140 mmol/L (136-145) Potassium Level 3.7 mmol/L (3.5-5.1) Chloride Level 95 mmol/L (98-107) Carbon Dioxide Level 31 mmol/L (21-32) Anion Gap 14 (6-14) Blood Urea Nitrogen 88 mg/dL (8-26) Creatinine 7.9 mg/dL (0.7-1.3) Estimated GFR (Cockcroft-Gault) 7.2 Glucose Level 110 mg/dL (70-99) Calcium Level 7.1 mg/dL (8.5-10.1) Phosphorus Level 5.0 mg/dL (2.6-4.7) Albumin 2.2 g/dL (3.4-5.0) 2.2 g/dL (3.4-5.0) Total Bilirubin 4.1 mg/dL (0.2-1.0) Direct Bilirubin 3.7 mg/dL (0.0-0.2) Aspartate Amino Transf (AST/SGOT) 328 U/L (15-37) Alanine Aminotransferase (ALT/SGPT) 93 U/L (16-63) Alkaline Phosphatase 309 U/L (46-116) Total Protein 5.6 g/dL (6.4-8.2) Microbiology 5/19/19 Blood Culture - Preliminary, Resulted NO GROWTH AFTER 4 DAYS 08/29/18 CSF Gram Stain - Final, Complete 08/25/18 Throat Culture - Final, Complete 08/25/18 - Final, Complete Medication Medications Current Medications Acyclovir Sodium 340 mg/Dextrose 106.8 ml @ 106.8 mls/ hr Q12HR IV ; Start 08/30/18 at 09:00 Daptomycin 610 mg/ Sodium Chloride 50 ml @ 100 mls/hr Q48H IV ; Start 08/30/18 at 16:00; Stop 08/30/18 at 16:00; Status DC Famotidine (Pepcid Vial) 20 mg QHS IVP Last administered on 08/29/18at 20:31; Start 08/29/18 at 21:00 Info (PHARMACY MONITORING -- do not chart) 1 each PRN DAILY PRN MC SEE COMMENTS; Start 08/30/18 at 11:15; Status UNV Info (PHARMACY MONITORING -- do not chart) 1 each PRN DAILY PRN MC SEE COMMENTS; Start 08/30/18 at 11:15; Status UNV Info (Tpn Per Pharmacy) 1 each PRN DAILY PRN MC SEE COMMENTS; Start 08/30/18 at 12:45 Sodium Chloride 1,000 ml @ 400 mls/hr Q2H30M PRN IV PATENCY; Start 08/30/18 at 11:02; Stop 08/30/18 at 23:01 Sodium Chloride 1,000 ml @ 1,000 mls/hr Q1H PRN IV hypotension; Start 08/30/18 at 11:02; Stop 08/30/18 at 17:01 Sodium Chloride 90 meq/Potassium Chloride 50 meq/ Potassium Phosphate 3 mmol/ Magnesium Sulfate 10 meq/Calcium Gluconate 10 meq/ Multivitamins 10 ml/Chromium/ Copper/Manganese/ Seleni/Zn 1 ml/ Total Parenteral Nutrition/Amino Acids/Dextrose/ Fat Emulsion Intravenous 1,512 ml @ 63 mls/hr TPN CONT IV ; Start 08/30/18 at 22:00; Stop 08/31/18 at 21:59 Comment Review of Relevant I have reviewed the following items gera (where applicable) has been applied. SOFIA ROBERSON MD August 30, 2018 13:33
[2018-08-30] MEDS: DEXTROSE 5% IV SCH ×2 (14:59→21:16)
[2018-08-30] MEDS: ACYCLOVIR SODIUM IV SCH ×2 (14:59→21:16)
[2018-08-30 15:13] LABS: EHRICHIA(HGE)AB IGG Negative (Neg:<1:64); EHRLICHIA(HME)AB Negative (Neg:<1:20)
--- NOTE | 2018-08-30 15:26 | NUR ---
SS following up with discharge planning. SS phoned and faxed referral to [facility], ; fax [phone].
[2018-08-30] MEDS ORDERED: DAPTOMYCIN IV SCH (16:00)
[2018-08-30] MEDS ORDERED: NORMAL SALINE IV SCH (16:00)
--- NOTE | 2018-08-30 16:05 | NUR ---
See orders. Patient's Helena here to visit patient and notified patient to transfer to room 654 medical unit. Report called to Nneka DOBBINS. See nursing communication. Patient remains lethargic and sleepy.
--- NOTE | 2018-08-30 17:20 | NUR ---
Patient transfer per bed with all belongings, chart and medications to room 654 with oxygen 40% per Venturi Mask.
[2018-08-30] MEDS: FAMOTIDINE 20 MG/2 ML VIAL IVP SCH (21:16)
[2018-08-30] MEDS ORDERED: TOTAL PARENTERAL NUTRITION IV SCH ×10 (22:00)
[2018-08-30] MEDS ORDERED: [UNRECOGNIZED DRUG - OTHER] IV SCH ×10 (22:00)
[2018-08-30] MEDS ORDERED: AMINO ACID IV SCH ×10 (22:00)
[2018-08-30] MEDS ORDERED: DEXTROSE 70% IV SCH ×10 (22:00)
[2018-08-31] VITALS (12 sets, daily range): BP systolic 103–179; BP diastolic 37–90
--- NOTE | 2018-08-31 05:45 | PDOC ---
Infectious Disease Note Subjective Subjective pt is awake, on bipap ROS ROS no n/v/d/ Vital Sign Vital Signs Vital Signs Date Time Temp Pulse Resp B/P (MAP) Pulse Ox O2 Delivery O2 Flow Rate FiO2 08/31/18 03:25 98.9 84 20 158/79 (105) 95 Venturi Mask 98.9 08/30/18 20:00 15.0 Physical Exam PHYSICAL EXAM GENERAL: awake on bipap HEENT: Pupils equally round, reactive. Normal conjunctivae. Oral cavity: Pharynx pink, dry. NECK: Supple. LUNGS: Clear to auscultation. HEART: S1 and S2. ABDOMEN: Obese, soft, nontender with bowel sounds present. EXTREMITIES: No gross edema or cyanosis. SKIN: Warm without rash. Left knee has several scabs/scarring. NEUROLOGIC: Alert and oriented, fluctuating MS Labs Micro Microbiology 08/26/18 Blood Culture - Preliminary, Resulted NO GROWTH AFTER 1 DAY CSF wbc 112 Objective Assessment 1. Tick-borne illness, suspected. with h/o tick bite 3 weeks ago at [place] 2. Lactic acidosis. 3. Fever. 4. Bandemia. 5. Acute hepatic injury. 6. Acute kidney injury. 7. Thrombocytopenia. 8. Hemochromatosis. 9. LLE dermatitis improving, ? poison shelby,resolving with local treatment 10 Encephalitis Plan Plan of Care d/c dapto and cont doxycycline. d/c meropenem, add acyclovir Ehrlichiae Ab or pcr not available at this hospital RMSF neg, though need convalescent serology [place] pending HSV PCR neg D/w D/w nursing MRI KELBY PARKER MD August 31, 2018 05:45
[2018-08-31 06:05] LABS: BASO # 0.1 x10^3/uL (0.0-0.2); BASO % 1 % (0-3); EOS # 0.2 x10^3/uL (0.0-0.7); EOS % 2 % (0-3); HEMATOCRIT 26.2 % (39.0-53.0); LYMPH # 2.9 x10^3/uL (1.0-4.8); LYMPH % 26 % (24-48); MEAN CORPUSCULAR HEMOGLOBIN 30 pg (25-35); MEAN CORPUSCULAR HGB CONC 35 g/dL (31-37); MEAN CORPUSCULAR VOLUME 85 fL (79-100); MONO # 2.3 x10^3/uL (0.0-1.1); MONO % 21 % (0-9); NEUT # 5.7 x10^3uL (1.8-7.7); NEUT % 51 % (31-73); PLATELET COUNT 73 x10^3/uL (140-400); RED BLOOD COUNT 3.07 x10^6/uL (4.30-5.70); RED CELL DISTRIBUTION WIDTH 16.8 % (11.5-14.5); WHITE BLOOD COUNT 11.3 x10^3/uL (4.0-11.0)
[2018-08-31 06:24] LABS: ALBUMIN 2.2 g/dL (3.4-5.0); CALCIUM 7.7 mg/dL (8.5-10.1); CREATININE 6.2 mg/dL (0.7-1.3); GFR 9.5; PHOSPHORUS 3.4 mg/dL (2.6-4.7); POTASSIUM 4.1 mmol/L (3.5-5.1)
[2018-08-31 06:25] LABS: ALBUMIN 2.2 g/dL (3.4-5.0); DIRECT BILIRUBIN 2.3 mg/dL (0.0-0.2); TOTAL BILIRUBIN 2.6 mg/dL (0.2-1.0); TOTAL PROTEIN 5.9 g/dL (6.4-8.2)
--- NOTE | 2018-08-31 07:37 | RAD ---
Single view of the chest. 08/31/2018 5:00 AM Indication: Renal failure Comparison: Chest radiograph August 29, 2018 Findings: There is an enteric tube extending below the diaphragm. 2 right-sided internal jugular central venous catheters are stable in expected position. No pneumothorax is identified. Central vascular congestion and interstitial edema as improved. Definitive effusion is not seen. Bony thorax is grossly unchanged. Heart size remains normal. IMPRESSION: 1. Stable support lines and tubes 2. Improved central vascular congestion and interstitial edema Electronically signed by: Robert Mello MD (08/31/2018 7:34 AM) [id number]
[2018-08-31] MEDS ORDERED: ONDANSETRON PF 4 MG/2 ML VIAL. IV PRN (08:00)
[2018-08-31] MEDS ORDERED: HALOPERIDOL 2 MG TABLET. PO PRN (08:00)
[2018-08-31] MEDS ORDERED: ATROPINE 0.5 MG/5 ML DISP.SYRINGE. ONE (08:06)
[2018-08-31] MEDS ORDERED: SODIUM BICARB ADULT 8.4% 50 MEQ/50 ML DISP.SYRIN. ONE (08:06)
[2018-08-31] MEDS ORDERED: EPINEPHrine SYRINGE 1 MG/10 ML SYRINGE ONE (08:06)
[2018-08-31] MEDS: LACTOBACILLUS RHAMNOSUS GG 1 CAPSULE. PO SCH ×2 (09:00→21:00)
[2018-08-31 09:19] LABS: HERPES SIMPLEX TYPE 1 Negative (Negative); HERPES SIMPLEX TYPE 2 Negative (Negative)
--- NOTE | 2018-08-31 09:57 | PDOC ---
Subjective: Subjective: Denies pain. Objective: Vital Signs: Vital Signs Date Time Temp Pulse Resp B/P (MAP) Pulse Ox O2 Delivery O2 Flow Rate FiO2 08/31/18 07:00 98.6 84 22 137/86 (103) 95 Venturi Mask 15.0 98.6 Labs: Laboratory Tests Test 08/31/18 05:00 White Blood Count 11.3 x10^3/uL Red Blood Count 3.07 x10^6/uL Hemoglobin 9.0 g/dL Hematocrit 26.2 % Mean Corpuscular Volume 85 fL Mean Corpuscular Hemoglobin 30 pg Mean Corpuscular Hemoglobin Concent 35 g/dL Red Cell Distribution Width 16.8 % Platelet Count 73 x10^3/uL Neutrophils (%) (Auto) 51 % Lymphocytes (%) (Auto) 26 % Monocytes (%) (Auto) 21 % Eosinophils (%) (Auto) 2 % Basophils (%) (Auto) 1 % Neutrophils # (Auto) 5.7 x10^3uL Lymphocytes # (Auto) 2.9 x10^3/uL Monocytes # (Auto) 2.3 x10^3/uL Eosinophils # (Auto) 0.2 x10^3/uL Basophils # (Auto) 0.1 x10^3/uL Sodium Level 138 mmol/L Potassium Level 4.1 mmol/L Chloride Level 101 mmol/L Carbon Dioxide Level 26 mmol/L Anion Gap 11 Blood Urea Nitrogen 52 mg/dL Creatinine 6.2 mg/dL Estimated GFR (Cockcroft-Gault) 9.5 Glucose Level 152 mg/dL Calcium Level 7.7 mg/dL Phosphorus Level 3.4 mg/dL Magnesium Level 3.0 mg/dL Total Bilirubin 2.6 mg/dL Direct Bilirubin 2.3 mg/dL Aspartate Amino Transf (AST/SGOT) 215 U/L Alanine Aminotransferase (ALT/SGPT) 74 U/L Alkaline Phosphatase 298 U/L Total Protein 5.9 g/dL Albumin 2.2 g/dL Triglycerides Level 474 mg/dL BLOOD CULTURE Final NO GROWTH AFTER 5 DAYS Imaging: Brain MRI 08/31 pending PE: GEN: NAD LUNGS: Venturi mask HEART: RRR ABD: S/ND/NT NEURO/PSYCH: mumbling, confused, taking off breathing mask A/P: Suspected tick-borne illness Resp failure, AMS, RADHA Anemia (stable), thrombocytopenia (better), elevated LFTs (better) Gastric distention (has NGT), hepatic steatosis, mild splenomegaly -- Mental status worse today. NG output less. ELVIA NOE August 31, 2018 09:57
--- NOTE | 2018-08-31 10:19 | PDOC ---
PROGRESS NOTES Chief Complaint Chief Complaint s/p septic shock - t.o ICU 08/30/18 tick bite LLE cellulitis, better RADHA with anuria - NEW HD - hopefully temporary, MEt encephalopathy in the background of septic shock Dysphagia in the background of septic shock-on TPN High gastric residuals-cannot do tube feeds Obesity BMI 34 normocytic anemia, leukocytosis History of Present Illness History of Present Illness transferred out of ICU 08/30/18 status post septic shock ID on board on Doxy, dapto, acyclovir Cannot due TFs as there is still high residuals via Dobbhoff-800 mL blackish drainage TPN running via right central line IJ WBC 11, no fevers, hemoglobin 9 Off BiPAP but needed this in ICU Significant other at bedside Lives with 5 members of the family at home [employer] Was exposed to ticks Creatinine 6, anuric, PLAN: avoid nephrotoxins On temporary dialysis per renal for now For MRI of the head, status post LP-ordered by ID/neuro Continue TPN, hold off any tube feeds Continue Dobbhoff Discussed with significant other and RN at bedside follow Labs cultures Vitals Vitals Vital Signs Date Time Temp Pulse Resp B/P (MAP) Pulse Ox O2 Delivery O2 Flow Rate FiO2 08/31/18 07:00 98.6 84 22 137/86 (103) 95 Venturi Mask 15.0 98.6 Physical Exam Physical Exam GENERAL: awake on bipap HEENT: Pupils equally round, reactive. Normal conjunctivae. Oral cavity: Pharynx pink, dry. NECK: Supple. LUNGS: Clear to auscultation. HEART: S1 and S2. ABDOMEN: Obese, soft, nontender with bowel sounds present. EXTREMITIES: No gross edema or cyanosis. SKIN: Warm without rash. Left knee has several scabs/scarring. NEUROLOGIC: Alert and oriented, fluctuating MS General: Alert Heart: Regular rate, Normal S1, Normal S2 Lungs: Crackles Abdomen: Soft, Other (slightly distended) Extremities: No clubbing, No cyanosis, No edema Skin: No significant lesion, Other (healing rash and excoriations on Left lower extremity. No obvious petechiae) Labs LABS Laboratory Tests Test 08/31/18 05:00 White Blood Count 11.3 x10^3/uL (4.0-11.0) Red Blood Count 3.07 x10^6/uL (4.30-5.70) Hemoglobin 9.0 g/dL (13.0-17.5) Hematocrit 26.2 % (39.0-53.0) Mean Corpuscular Volume 85 fL (79-100) Mean Corpuscular Hemoglobin 30 pg (25-35) Mean Corpuscular Hemoglobin Concent 35 g/dL (31-37) Red Cell Distribution Width 16.8 % (11.5-14.5) Platelet Count 73 x10^3/uL (140-400) Neutrophils (%) (Auto) 51 % (31-73) Lymphocytes (%) (Auto) 26 % (24-48) Monocytes (%) (Auto) 21 % (0-9) Eosinophils (%) (Auto) 2 % (0-3) Basophils (%) (Auto) 1 % (0-3) Neutrophils # (Auto) 5.7 x10^3uL (1.8-7.7) Lymphocytes # (Auto) 2.9 x10^3/uL (1.0-4.8) Monocytes # (Auto) 2.3 x10^3/uL (0.0-1.1) Eosinophils # (Auto) 0.2 x10^3/uL (0.0-0.7) Basophils # (Auto) 0.1 x10^3/uL (0.0-0.2) Sodium Level 138 mmol/L (136-145) Potassium Level 4.1 mmol/L (3.5-5.1) Chloride Level 101 mmol/L (98-107) Carbon Dioxide Level 26 mmol/L (21-32) Anion Gap 11 (6-14) Blood Urea Nitrogen 52 mg/dL (8-26) Creatinine 6.2 mg/dL (0.7-1.3) Estimated GFR (Cockcroft-Gault) 9.5 Glucose Level 152 mg/dL (70-99) Calcium Level 7.7 mg/dL (8.5-10.1) Phosphorus Level 3.4 mg/dL (2.6-4.7) Magnesium Level 3.0 mg/dL (1.8-2.4) Total Bilirubin 2.6 mg/dL (0.2-1.0) Direct Bilirubin 2.3 mg/dL (0.0-0.2) Aspartate Amino Transf (AST/SGOT) 215 U/L (15-37) Alanine Aminotransferase (ALT/SGPT) 74 U/L (16-63) Alkaline Phosphatase 298 U/L (46-116) Total Protein 5.9 g/dL (6.4-8.2) Albumin 2.2 g/dL (3.4-5.0) Triglycerides Level 474 mg/dL (0-150) Review of Systems Review of Systems Encephalopathic hence limited ROS Assessment and Plan Assessmemt and Plan Problems Medical Problems: (1) Acute renal failure Status: Acute Comment Review of Relevant I have reviewed the following items gera (where applicable) has been applied. Labs Laboratory Tests Test 08/29/18 13:30 08/30/18 05:30 08/30/18 05:35 08/31/18 05:00 CSF Tube Number 4 CSF Color Yellow CSF Clarity Clear CSF WBC 112 /cmm (Not Established) CSF RBC 11 /cmm (Not Established) CSF Mononuclear WBCs % 89 % CSF Polynuclear WBCs (%) 11 % CSF Glucose 52 mg/dL (37-70) CSF Total Protein 160.2 mg/dL (15.0-45.0) Herpes Simplex Virus I DNA (PCR) Negative (Negative) Herpes Simplex Virus II DNA (PCR) Negative (Negative) White Blood Count 13.0 x10^3/uL (4.0-11.0) 11.3 x10^3/uL (4.0-11.0) Red Blood Count 2.92 x10^6/uL (4.30-5.70) 3.07 x10^6/uL (4.30-5.70) Hemoglobin 8.4 g/dL (13.0-17.5) 9.0 g/dL (13.0-17.5) Hematocrit 24.7 % (39.0-53.0) 26.2 % (39.0-53.0) Mean Corpuscular Volume 84 fL (79-100) 85 fL (79-100) Mean Corpuscular Hemoglobin 29 pg (25-35) 30 pg (25-35) Mean Corpuscular Hemoglobin Concent 34 g/dL (31-37) 35 g/dL (31-37) Red Cell Distribution Width 16.5 % (11.5-14.5) 16.8 % (11.5-14.5) Platelet Count 67 x10^3/uL (140-400) 73 x10^3/uL (140-400) Neutrophils (%) (Auto) 54 % (31-73) 51 % (31-73) Lymphocytes (%) (Auto) 29 % (24-48) 26 % (24-48) Monocytes (%) (Auto) 14 % (0-9) 21 % (0-9) Eosinophils (%) (Auto) 1 % (0-3) 2 % (0-3) Basophils (%) (Auto) 1 % (0-3) 1 % (0-3) Neutrophils # (Auto) 7.1 x10^3uL (1.8-7.7) 5.7 x10^3uL (1.8-7.7) Lymphocytes # (Auto) 3.8 x10^3/uL (1.0-4.8) 2.9 x10^3/uL (1.0-4.8) Monocytes # (Auto) 1.9 x10^3/uL (0.0-1.1) 2.3 x10^3/uL (0.0-1.1) Eosinophils # (Auto) 0.1 x10^3/uL (0.0-0.7) 0.2 x10^3/uL (0.0-0.7) Basophils # (Auto) 0.1 x10^3/uL (0.0-0.2) 0.1 x10^3/uL (0.0-0.2) Sodium Level 140 mmol/L (136-145) 138 mmol/L (136-145) Potassium Level 3.7 mmol/L (3.5-5.1) 4.1 mmol/L (3.5-5.1) Chloride Level 95 mmol/L (98-107) 101 mmol/L (98-107) Carbon Dioxide Level 31 mmol/L (21-32) 26 mmol/L (21-32) Anion Gap 14 (6-14) 11 (6-14) Blood Urea Nitrogen 88 mg/dL (8-26) 52 mg/dL (8-26) Creatinine 7.9 mg/dL (0.7-1.3) 6.2 mg/dL (0.7-1.3) Estimated GFR (Cockcroft-Gault) 7.2 9.5 Glucose Level 110 mg/dL (70-99) 152 mg/dL (70-99) Calcium Level 7.1 mg/dL (8.5-10.1) 7.7 mg/dL (8.5-10.1) Phosphorus Level 5.0 mg/dL (2.6-4.7) 3.4 mg/dL (2.6-4.7) Albumin 2.2 g/dL (3.4-5.0) 2.2 g/dL (3.4-5.0) 2.2 g/dL (3.4-5.0) Total Bilirubin 4.1 mg/dL (0.2-1.0) 2.6 mg/dL (0.2-1.0) Direct Bilirubin 3.7 mg/dL (0.0-0.2) 2.3 mg/dL (0.0-0.2) Aspartate Amino Transf (AST/SGOT) 328 U/L (15-37) 215 U/L (15-37) Alanine Aminotransferase (ALT/SGPT) 93 U/L (16-63) 74 U/L (16-63) Alkaline Phosphatase 309 U/L (46-116) 298 U/L (46-116) Total Protein 5.6 g/dL (6.4-8.2) 5.9 g/dL (6.4-8.2) Magnesium Level 3.0 mg/dL (1.8-2.4) Triglycerides Level 474 mg/dL (0-150) Laboratory Tests Test 08/31/18 05:00 White Blood Count 11.3 x10^3/uL (4.0-11.0) Red Blood Count 3.07 x10^6/uL (4.30-5.70) Hemoglobin 9.0 g/dL (13.0-17.5) Hematocrit 26.2 % (39.0-53.0) Mean Corpuscular Volume 85 fL (79-100) Mean Corpuscular Hemoglobin 30 pg (25-35) Mean Corpuscular Hemoglobin Concent 35 g/dL (31-37) Red Cell Distribution Width 16.8 % (11.5-14.5) Platelet Count 73 x10^3/uL (140-400) Neutrophils (%) (Auto) 51 % (31-73) Lymphocytes (%) (Auto) 26 % (24-48) Monocytes (%) (Auto) 21 % (0-9) Eosinophils (%) (Auto) 2 % (0-3) Basophils (%) (Auto) 1 % (0-3) Neutrophils # (Auto) 5.7 x10^3uL (1.8-7.7) Lymphocytes # (Auto) 2.9 x10^3/uL (1.0-4.8) Monocytes # (Auto) 2.3 x10^3/uL (0.0-1.1) Eosinophils # (Auto) 0.2 x10^3/uL (0.0-0.7) Basophils # (Auto) 0.1 x10^3/uL (0.0-0.2) Sodium Level 138 mmol/L (136-145) Potassium Level 4.1 mmol/L (3.5-5.1) Chloride Level 101 mmol/L (98-107) Carbon Dioxide Level 26 mmol/L (21-32) Anion Gap 11 (6-14) Blood Urea Nitrogen 52 mg/dL (8-26) Creatinine 6.2 mg/dL (0.7-1.3) Estimated GFR (Cockcroft-Gault) 9.5 Glucose Level 152 mg/dL (70-99) Calcium Level 7.7 mg/dL (8.5-10.1) Phosphorus Level 3.4 mg/dL (2.6-4.7) Magnesium Level 3.0 mg/dL (1.8-2.4) Total Bilirubin 2.6 mg/dL (0.2-1.0) Direct Bilirubin 2.3 mg/dL (0.0-0.2) Aspartate Amino Transf (AST/SGOT) 215 U/L (15-37) Alanine Aminotransferase (ALT/SGPT) 74 U/L (16-63) Alkaline Phosphatase 298 U/L (46-116) Total Protein 5.9 g/dL (6.4-8.2) Albumin 2.2 g/dL (3.4-5.0) Triglycerides Level 474 mg/dL (0-150) Microbiology 08/26/18 Blood Culture - Final, Complete NO GROWTH AFTER 5 DAYS 08/29/18 CSF Gram Stain - Final, Complete 08/27/18 Stool Culture - Final, Resulted 08/27/18 Stool Culture Result 1 (LOTUS) - Final, Resulted 08/27/18 Campylobacter Antigen Assay - Preliminary, Resulted 08/27/18 Campylobactor Result 1 - Preliminary, Resulted 08/27/18 Shiga Toxin Test - Final, Resulted 08/25/18 Throat Culture - Final, Complete 08/25/18 - Final, Complete Medications Current Medications Sodium Chloride 1,000 ml @ 1,000 mls/hr 1X ONCE IV Last administered on 08/25/18at 20:38; Start 08/25/18 at 19:15; Stop 08/25/18 at 20:14; Status DC Ibuprofen (Motrin) 600 mg 1X ONCE PO Last administered on 08/25/18at 20:38; Start 08/25/18 at 19:45; Stop 08/25/18 at 19:49; Status DC Sodium Chloride 1,000 ml @ 1,000 mls/hr 1X ONCE IV Last administered on 08/25/18at 20:30; Start 08/25/18 at 20:30; Stop 08/25/18 at 21:29; Status DC Ceftriaxone Sodium (Rocephin) 1 gm 1X ONCE IVP Last administered on 08/25/18 20:36; Start 08/25/18 at 20:30; Stop 08/25/18 at 20:31; Status DC Vancomycin HCl 2 gm/Sodium Chloride 500 ml @ 250 mls/hr 1X ONCE IV Last administered on 08/25/18at 23:10; Start 08/25/18 at 21:30; Stop 08/25/18 at 23:29; Status DC Sodium Chloride 1,000 ml @ 1,000 mls/hr 1X ONCE IV Last administered on 08/08 11/26at 23:51; Start 08/25/18 at 21:00; Stop 08/25/18 at 21:59; Status DC Piperacillin Sod/ Tazobactam Sod 4.5 gm/Sodium Chloride 100 ml @ 200 mls/hr 1X ONCE IV ; Start 08/25/18 at 21:15; Stop 08/25/18 at 21:44; Status DC Aztreonam (Azactam) 2 gm 1X ONCE IVP Last administered on 08/25/18at 21:15; Start 08/25/18 at 21:15; Stop 08/25/18 at 21:16; Status DC Magnesium Sulfate 50 ml @ 25 mls/hr 1X ONCE IV Last administered on 08/25/18at 23:51; Start 08/25/18 at 21:15; Stop 08/25/18 at 23:14; Status DC Ondansetron HCl (Zofran) 4 mg PRN Q8HRS PRN IV NAUSEA/VOMITING; Start 08/25/18 at 21:15; Stop 08/26/18 at 21:14; Status DC Acetaminophen (Tylenol) 650 mg PRN Q4HRS PRN PO FEVER; Start 08/25/18 at 21:15; Stop 08/26/18 at 21:14; Status DC Sodium Chloride 1,000 ml @ 125 mls/hr 1X ONCE IV Last administered on 08/25/18at 23:09; Start 08/25/18 at 21:15; Stop 08/26/18 at 05:14; Status DC Daptomycin 610 mg/ Sodium Chloride 50 ml @ 100 mls/hr QODAY IV Last administered on 08/27/18at 08:59; Start 08/27/18 at 09:00; Stop 08/28/18 at 15:40; Status DC Meropenem 500 mg/ Sodium Chloride 50 ml @ 100 mls/hr 1X ONCE IV Last administered on 08/25/18at 22:12; Start 08/25/18 at 22:00; Stop 08/25/18 at 22:29; Status DC Doxycycline Hyclate 100 mg/ Dextrose 100 ml @ 50 mls/hr Q12HR IV Last administered on 08/30/18at 21:40; Start 08/26/18 at 09:00 Meropenem 500 mg/ Sodium Chloride 50 ml @ 100 mls/hr DAILY IV Last administered on 08/29/18at 10:13; Start 08/26/18 at 09:00; Stop 08/30/18 at 08:17; Status DC Sodium Chloride (Normal Saline Flush) 10 ml QSHIFT PRN IV AFTER MEDS AND BLOOD DRAWS; Start 08/26/18 at 09:15 Norepinephrine Bitartrate 250 ml @ 0 mls/hr CONT PRN IV PER PROTOCOL Last administered on 08/27/18at 10:21; Start 08/26/18 at 09:15; Stop 08/30/18 at 17:20; Status DC Famotidine (Pepcid) 20 mg DAILY PO Last administered on 08/27/18at 08:14; Start 08/26/18 at 12:00; Stop 08/27/18 at 14:36; Status DC Sodium Chloride 1,000 ml @ 1,000 mls/hr Q1H PRN IV hypotension; Start 08/26/18 at 11:51; Stop 08/26/18 at 17:50; Status DC Sodium Chloride (Normal Saline Flush) 10 ml 1X PRN PRN IV AP catheter pack; Start 08/26/18 at 12:00; Stop 08/27/18 at 11:59; Status DC Sodium Chloride (Normal Saline Flush) 10 ml 1X PRN PRN IV DESK[employer]IST catheter pack; Start 08/26/18 at 12:00; Stop 08/27/18 at 11:59; Status DC Sodium Chloride 1,000 ml @ 400 mls/hr Q2H30M PRN IV PATENCY; Start 08/26/18 at 11:51; Stop 08/26/18 at 23:50; Status DC Info (PHARMACY MONITORING -- do not chart) 1 each PRN DAILY PRN MC SEE COMMENTS; Start 08/26/18 at 12:00; Status UNV Info (PHARMACY MONITORING -- do not chart) 1 each PRN DAILY PRN MC SEE COMMENTS; Start 08/26/18 at 12:00 Lidocaine/Sodium Bicarbonate (Buffered Lidocaine 1%) 4 ml 1X ONCE INJ Last administered on 08/26/18at 12:45; Start 08/26/18 at 12:45; Stop 08/26/18 at 12:48; Status DC Heparin Sodium (Porcine) (Heparin Sodium) 2,500 unit 1X ONCE INT CAT Last administered on 08/26/18at 12:45; Start 08/26/18 at 12:45; Stop 08/26/18 at 12:48; Status DC Lidocaine/Sodium Bicarbonate (Buffered Lidocaine 1%) 3 ml STK-MED ONCE .ROUTE ; Start 08/26/18 at 12:49; Stop 08/26/18 at 12:50; Status DC Heparin Sodium (Porcine) (Heparin Sodium) 10,000 unit STK-MED ONCE .ROUTE ; Start 08/26/18 at 12:49; Stop 08/26/18 at 12:50; Status DC Lactobacillus Rhamnosus (Culturelle) 1 cap BID PO Last administered on 08/28/18at 08:01; Start 08/26/18 at 21:00 Acetaminophen (Tylenol) 325 mg STK-MED ONCE PO ; Start 08/27/18 at 00:43; Stop 08/27/18 at 00:44; Status DC Sodium Chloride 1,000 ml @ 1,000 mls/hr 1X ONCE IV Last administered on 08/27/18at 11:05; Start 08/27/18 at 10:30; Stop 08/27/18 at 11:29; Status DC Sodium Chloride 1,000 ml @ 1,000 mls/hr Q1H PRN IV hypotension; Start 08/27/18 at 11:28; Stop 08/27/18 at 17:27; Status DC Albumin Human 200 ml @ 200 mls/hr 1X PRN PRN IV Hypotension; Start 08/27/18 at 11:30; Stop 08/27/18 at 17:29; Status DC Sodium Chloride (Normal Saline Flush) 10 ml 1X PRN PRN IV AP catheter pack; Start 08/27/18 at 11:30; Stop 08/28/18 at 11:29; Status DC Sodium Chloride (Normal Saline Flush) 10 ml 1X PRN PRN IV DESK[employer] SUPPORT SPECIALIST catheter pack; Start 08/27/18 at 11:30; Stop 08/28/18 at 11:29; Status DC Sodium Chloride 1,000 ml @ 400 mls/hr Q2H30M PRN IV PATENCY; Start 08/27/18 at 11:28; Stop 08/27/18 at 23:27; Status DC Info (PHARMACY MONITORING -- do not chart) 1 each PRN DAILY PRN MC SEE COMMENTS; Start 08/27/18 at 11:30; Status UNV Info (PHARMACY MONITORING -- do not chart) 1 each PRN DAILY PRN MC SEE COMMENTS; Start 08/27/18 at 11:30; Status UNV Famotidine (Pepcid) 20 mg Q48H PO ; Start 08/29/18 at 09:00; Stop 08/29/18 at 11:29; Status DC Acetaminophen (Tylenol) 650 mg PRN Q6HRS PRN PO pain/fever; Start 08/27/18 at 21:15 Acetaminophen (Tylenol Supp) 650 mg PRN Q6HRS PRN MD MILD PAIN / TEMP Last administered on 08/27/18at 21:25; Start 08/27/18 at 21:15 Fentanyl Citrate (Fentanyl 2ml Vial) 25 mcg 1X ONCE IV Last administered on 08/28/18at 08:54; Start 08/28/18 at 08:45; Stop 08/28/18 at 08:47; Status DC Lidocaine/Sodium Bicarbonate (Buffered Lidocaine 1%) 3 ml STK-MED ONCE .ROUTE ; Start 08/28/18 at 09:55; Stop 08/28/18 at 09:56; Status DC Lidocaine HCl (Glydo (Lidocaine) Jelly) 1 meng 1X STAT MM Last administered on 08/28/18at 10:16; Start 08/28/18 at 10:16; Stop 08/28/18 at 10:19; Status DC Benzocaine (Hurricaine One) 1 spray 1X STAT MM Last administered on 08/28/18at 10:16; Start 08/28/18 at 10:16; Stop 08/28/18 at 10:19; Status DC Lidocaine/Sodium Bicarbonate (Buffered Lidocaine 1%) 3 ml 1X ONCE INJ ; Start 08/28/18 at 10:30; Stop 08/28/18 at 10:31; Status DC Haloperidol Lactate (Haldol Inj) 5 mg PRN Q6HRS PRN IVP AGITATION Last administered on 08/29/18at 20:31; Start 08/28/18 at 12:00 Fentanyl Citrate (Fentanyl 2ml Vial) 50 mcg PRN Q4HRS PRN IV PAIN Last administered on 08/28/18at 21:44; Start 08/28/18 at 15:30 Sodium Chloride 1,000 ml @ 1,000 mls/hr Q1H PRN IV hypotension; Start 08/28/18 at 14:00; Stop 08/28/18 at 19:59; Status DC Albumin Human 200 ml @ 200 mls/hr 1X PRN PRN IV Hypotension Last administered on 08/28/18at 14:50; Start 08/28/18 at 14:00 Sodium Chloride 1,000 ml @ 400 mls/hr Q2H30M PRN IV PATENCY; Start 08/28/18 at 14:00; Stop 08/29/18 at 01:59; Status DC Info (PHARMACY MONITORING -- do not chart) 1 each PRN DAILY PRN MC SEE COMMENTS; Start 08/28/18 at 15:30; Status UNV Info (PHARMACY MONITORING -- do not chart) 1 each PRN DAILY PRN MC SEE COMMENTS; Start 08/28/18 at 15:30; Status UNV Daptomycin 610 mg/ Sodium Chloride 50 ml @ 100 mls/hr Q48H IV ; Start 08/30/18 at 16:00; Stop 08/30/18 at 16:00; Status DC Famotidine (Pepcid Vial) 20 mg QHS IVP Last administered on 08/30/18at 21:16; Start 08/29/18 at 21:00 Acyclovir Sodium 340 mg/Dextrose 106.8 ml @ 106.8 mls/ hr Q12HR IV Last administered on 08/30/18at 21:16; Start 08/30/18 at 09:00 Sodium Chloride 1,000 ml @ 1,000 mls/hr Q1H PRN IV hypotension; Start 08/30/18 at 11:02; Stop 08/30/18 at 17:01; Status DC Sodium Chloride 1,000 ml @ 400 mls/hr Q2H30M PRN IV PATENCY; Start 08/30/18 at 11:02; Stop 08/30/18 at 23:01; Status DC Info (PHARMACY MONITORING -- do not chart) 1 each PRN DAILY PRN MC SEE COMMENTS; Start 08/30/18 at 11:15; Status UNV Info (PHARMACY MONITORING -- do not chart) 1 each PRN DAILY PRN MC SEE COMMENTS; Start 08/30/18 at 11:15; Status UNV Info (Tpn Per Pharmacy) 1 each PRN DAILY PRN MC SEE COMMENTS Last administered on 08/30/18at 13:12; Start 08/30/18 at 12:45 Sodium Chloride 90 meq/Potassium Chloride 50 meq/ Potassium Phosphate 3 mmol/ Magnesium Sulfate 10 meq/Calcium Gluconate 10 meq/ Multivitamins 10 ml/Chromium/ Copper/Manganese/ Seleni/Zn 1 ml/ Total Parenteral Nutrition/Amino Acids/Dextrose/ Fat Emulsion Intravenous 1,512 ml @ 63 mls/hr TPN CONT IV Last administered on 08/30/18at 21:40; Start 08/30/18 at 22:00; Stop 08/31/18 at 21:59 Ondansetron HCl (Zofran) 4 mg PRN Q6HRS PRN IV NAUSEA/VOMITING; Start 08/31/18 at 08:00 Haloperidol (Haldol) 2 mg PRN QID PRN PO AGITATION; Start 08/31/18 at 08:00 Active Scripts Active Potassium Chloride 20 Meq Tablet.er 20 Meq PO DAILY Orphenadrine Citrate 100 Mg Tablet.er 100 Mg PO Q12HR Anaprox Ds (Naproxen Sodium) 550 Mg Tablet 550 Mg PO Q12HR Reported Prednisone 20 Mg Tablet 1 Tab PO DAILY Hydrochlorothiazide Tablet (Hydrochlorothiazide) 12.5 Mg Tablet 12.5 Mg PO DAILY Shilpi Allergy (Fexofenadine Hcl) 180 Mg Tablet 1 Tab PO DAILY Vitals/I & O Vital Sign - Last 24 Hours 08/30/18 08/30/18 08/30/18 08/30/18 11:00 12:00 12:34 13:00 Temp 98.4 98.4 Pulse 73 68 72 Resp 37 32 35 B/P (MAP) 145/74 (97) 153/82 (105) 151/82 (105) Pulse Ox 96 97 97 O2 Delivery Venturi Mask Venturi Mask Venturi Mask Venturi Mask 08/30/18 08/30/18 08/30/18 08/30/18 14:00 15:00 16:00 16:00 Temp 97.7 97.7 Pulse 74 75 77 Resp 34 34 33 B/P (MAP) 135/86 (102) 140/71 (94) 134/77 (96) Pulse Ox 100 100 96 O2 Delivery Venturi Mask Venturi Mask Venturi Mask Venturi Mask O2 Flow Rate 15.0 08/30/18 08/30/18 08/30/18 08/30/18 17:27 19:50 20:00 23:52 Temp 98.1 97.8 98.2 98.1 97.8 98.2 Pulse 68 78 90 Resp 28 22 22 B/P (MAP) 137/80 (99) 139/79 (99) 100/73 (82) Pulse Ox 94 93 93 O2 Delivery Venturi Mask Venturi Mask Venturi Mask Venturi Mask O2 Flow Rate 15.0 08/31/18 08/31/18 03:25 07:00 Temp 98.9 98.6 98.9 98.6 Pulse 84 84 Resp 20 22 B/P (MAP) 158/79 (105) 137/86 (103) Pulse Ox 95 95 O2 Delivery Venturi Mask Venturi Mask O2 Flow Rate 15.0 Intake and Output 08/30/18 08/30/18 08/31/18 15:00 23:00 07:00 Intake Total 100 ml 213.6 ml 100 ml Output Total 800 ml 600 ml Balance 100 ml -586.4 ml -500 ml ERA AMES MD August 31, 2018 10:19
[2018-08-31] MEDS: DOXYCYCLINE HYCLATE 100 MG in IV DEXTROSE 5% 100ML 100 ML IV SCH ×2 (10:21→20:58)
--- NOTE | 2018-08-31 11:03 | PDOC ---
SUBJECTIVE ROS Transferred out of ICU states he is better, trying to remove his mask OBJECTIVE Vital Signs Vital Signs Date Time Temp Pulse Resp B/P (MAP) Pulse Ox O2 Delivery O2 Flow Rate FiO2 08/31/18 07:00 98.6 84 22 137/86 (103) 95 Venturi Mask 15.0 98.6 I & 0 Intake and Output 08/31/18 07:00 Intake Total 413.6 ml Output Total 1400 ml Balance -986.4 ml Intake Oral 0 ml IV Total 413.6 ml Gastric Drainage Total 1400 ml PHYSICAL EXAM Physical Exam GENERAL: awake on bipap HEENT:OM moist , On Bipap NECK: Supple. LUNGS: Clear to auscultation. HEART: S1 and S2. ABDOMEN: Obese, soft, nontender EXTREMITIES: No gross edema SKIN: Warm without rash. Left knee has several scabs/scarring. NEUROLOGIC: fluctuating MS No Waters DIAGNOSIS/ASSESSMENT Assessment & Plan RADHA - acute tubular necrosis, Abdominal ultrasound Rt Kidney and UA unremarkable CT scan- Unremarkable Kidneys Initiated on HD 08/26 due to Azotemia and Fluid - HD x3 Held HD yesterday, worsening renal function,Dialyis today Seen during the treatment ,Increased Duration to 4 hrs , Tolerating well Strict I/O ( doesn't have Waters) Bladder scan -anuric Hyponatremia due to the above Normal Metabolic acidosis Resolved Corrected Ca Normal Increased LFT's , Alb low Anemia- Hgb dropped, Now stable Hem following Abdominal Pain /Distension- Has NGT , 1200 + Residual Thrombocytopenia. As per Hematology/Oncology, a peripheral smear does not reveal schistocytes. Discussed with RN and at bedside DIAGNOSIS/ASSESSMENT Assessment & Plan RADHA - ATN, anuric Abdominal ultrasound Rt Kidney and UA unremarkable CT scan- Unremarkable Kidneys Initiated on HD 08/26 due to Azotemia and Fluid Strict I/O ( doesn't have Waters),Continue Bladder scan prn No indication for HD today No renal recovery, HD tomorrow Access- Temp Dialysis catheter Hyponatremia Resolved Metabolic acidosis Resolved Corrected Ca Normal Increased LFT's , Alb low Anemia- Hgb dropped, Now stable Hem following Abdominal Pain /Distension- Has NGT , Significant residual Thrombocytopenia. As per Hematology/Oncology, a peripheral smear does not reveal schistocytes. Improving Discussed with RN and at bedside COMMENT/RELEVANT DATA Meds Current Medications Medications (Trade) Dose Ordered Sig/Noemi Start Time Stop Time Status Last Admin Dose Admin Acetaminophen (Tylenol Supp) 650 mg PRN Q6HRS PRN 08/27/18 21:15 08/27/18 21:25 650 MG Acetaminophen (Tylenol) 650 mg PRN Q6HRS PRN 08/27/18 21:15 Acyclovir Sodium 340 mg/Dextrose 106.8 ml @ 106.8 mls/ hr Q12HR 08/30/18 09:00 08/30/18 21:16 106.8 MLS/HR Albumin Human 200 ml @ 200 mls/hr 1X PRN PRN 08/28/18 14:00 08/28/18 14:50 200 MLS/HR Aztreonam (Azactam) 2 gm 1X ONCE 08/25/18 21:15 08/25/18 21:16 DC 08/25/18 21:15 2 GM Benzocaine (Hurricaine One) 1 spray 1X STAT 08/28/18 10:16 08/28/18 10:19 DC 08/28/18 10:16 1 SPRAY Ceftriaxone Sodium (Rocephin) 1 gm 1X ONCE 08/25/18 20:30 08/25/18 20:31 DC 08/25/18 20:36 1 GM Daptomycin 610 mg/ Sodium Chloride 50 ml @ 100 mls/hr Q48H 08/30/18 16:00 08/30/18 16:00 DC Doxycycline Hyclate 100 mg/ Dextrose 100 ml @ 50 mls/hr Q12HR 08/26/18 09:00 08/31/18 10:21 50 MLS/HR Famotidine (Pepcid Vial) 20 mg QHS 08/29/18 21:00 08/30/18 21:16 20 MG Famotidine (Pepcid) 20 mg Q48H 08/29/18 09:00 08/29/18 11:29 DC Fentanyl Citrate (Fentanyl 2ml Vial) 50 mcg PRN Q4HRS PRN 08/28/18 15:30 08/28/18 21:44 50 MCG Haloperidol (Haldol) 2 mg PRN QID PRN 08/31/18 08:00 Haloperidol Lactate (Haldol Inj) 5 mg PRN Q6HRS PRN 08/28/18 12:00 08/29/18 20:31 5 MG Heparin Sodium (Porcine) (Heparin Sodium) 10,000 unit STK-MED ONCE 08/26/18 12:49 08/26/18 12:50 DC Ibuprofen (Motrin) 600 mg 1X ONCE 08/25/18 19:45 08/25/18 19:49 DC 08/25/18 20:38 600 MG Info (PHARMACY MONITORING -- do not chart) 1 each PRN DAILY PRN 08/30/18 11:15 UNV Info (Tpn Per Pharmacy) 1 each PRN DAILY PRN 08/30/18 12:45 08/30/18 13:12 1 EACH Lactobacillus Rhamnosus (Culturelle) 1 cap BID 08/26/18 21:00 08/28/18 08:01 1 CAP Lidocaine HCl (Glydo (Lidocaine) Jelly) 1 meng 1X STAT 08/28/18 10:16 08/28/18 10:19 DC 08/28/18 10:16 1 MENG Lidocaine/Sodium Bicarbonate (Buffered Lidocaine 1%) 3 ml 1X ONCE 08/28/18 10:30 08/28/18 10:31 DC Magnesium Sulfate 50 ml @ 25 mls/hr 1X ONCE 08/25/18 21:15 08/25/18 23:14 DC 08/25/18 23:51 25 MLS/HR Meropenem 500 mg/ Sodium Chloride 50 ml @ 100 mls/hr DAILY 08/26/18 09:00 08/30/18 08:17 DC 08/29/18 10:13 100 MLS/HR Norepinephrine Bitartrate 250 ml @ 0 mls/hr CONT PRN 08/26/18 09:15 08/30/18 17:20 DC 08/27/18 10:21 1.88 MLS/HR Ondansetron HCl (Zofran) 4 mg PRN Q6HRS PRN 08/31/18 08:00 Piperacillin Sod/ Tazobactam Sod 4.5 gm/Sodium Chloride 100 ml @ 200 mls/hr 1X ONCE 08/25/18 21:15 08/25/18 21:44 DC Sodium Chloride (Normal Saline Flush) 10 ml 1X PRN PRN 08/27/18 11:30 08/28/18 11:29 DC Sodium Chloride 90 meq/Potassium Chloride 50 meq/ Potassium Phosphate 3 mmol/ Magnesium Sulfate 10 meq/Calcium Gluconate 10 meq/ Multivitamins 10 ml/Chromium/ Copper/Manganese/ Seleni/Zn 1 ml/ Total Parenteral Nutrition/Amino Acids/Dextrose/ Fat Emulsion Intravenous 1,512 ml @ 63 mls/hr TPN CONT 08/30/18 22:00 08/31/18 21:59 08/30/18 21:40 63 MLS/HR Vancomycin HCl 2 gm/Sodium Chloride 500 ml @ 250 mls/hr 1X ONCE 08/25/18 21:30 08/25/18 23:29 DC 08/25/18 23:10 250 MLS/HR Lab Laboratory Tests Test 08/31/18 05:00 White Blood Count 11.3 x10^3/uL (4.0-11.0) Red Blood Count 3.07 x10^6/uL (4.30-5.70) Hemoglobin 9.0 g/dL (13.0-17.5) Hematocrit 26.2 % (39.0-53.0) Mean Corpuscular Volume 85 fL (79-100) Mean Corpuscular Hemoglobin 30 pg (25-35) Mean Corpuscular Hemoglobin Concent 35 g/dL (31-37) Red Cell Distribution Width 16.8 % (11.5-14.5) Platelet Count 73 x10^3/uL (140-400) Neutrophils (%) (Auto) 51 % (31-73) Lymphocytes (%) (Auto) 26 % (24-48) Monocytes (%) (Auto) 21 % (0-9) Eosinophils (%) (Auto) 2 % (0-3) Basophils (%) (Auto) 1 % (0-3) Neutrophils # (Auto) 5.7 x10^3uL (1.8-7.7) Lymphocytes # (Auto) 2.9 x10^3/uL (1.0-4.8) Monocytes # (Auto) 2.3 x10^3/uL (0.0-1.1) Eosinophils # (Auto) 0.2 x10^3/uL (0.0-0.7) Basophils # (Auto) 0.1 x10^3/uL (0.0-0.2) Sodium Level 138 mmol/L (136-145) Potassium Level 4.1 mmol/L (3.5-5.1) Chloride Level 101 mmol/L (98-107) Carbon Dioxide Level 26 mmol/L (21-32) Anion Gap 11 (6-14) Blood Urea Nitrogen 52 mg/dL (8-26) Creatinine 6.2 mg/dL (0.7-1.3) Estimated GFR (Cockcroft-Gault) 9.5 Glucose Level 152 mg/dL (70-99) Calcium Level 7.7 mg/dL (8.5-10.1) Phosphorus Level 3.4 mg/dL (2.6-4.7) Magnesium Level 3.0 mg/dL (1.8-2.4) Total Bilirubin 2.6 mg/dL (0.2-1.0) Direct Bilirubin 2.3 mg/dL (0.0-0.2) Aspartate Amino Transf (AST/SGOT) 215 U/L (15-37) Alanine Aminotransferase (ALT/SGPT) 74 U/L (16-63) Alkaline Phosphatase 298 U/L (46-116) Total Protein 5.9 g/dL (6.4-8.2) Albumin 2.2 g/dL (3.4-5.0) Triglycerides Level 474 mg/dL (0-150) Results All relevant outside records, renal labs, imaging studies, telemetry/EKG's were reviewed. OG CHAVES MD August 31, 2018 11:03
--- NOTE | 2018-08-31 11:08 | PDOC ---
PROGRESS NOTES Subjective Subjective HPI - f/u of Thrombocytopenia ROS - no fever Objective Objective Vital Signs Date Time Temp Pulse Resp B/P (MAP) Pulse Ox O2 Delivery O2 Flow Rate FiO2 08/31/18 08:00 Venturi Mask 15.0 08/31/18 07:00 98.6 84 22 137/86 (103) 95 98.6 Intake and Output 08/31/18 06:59 Intake Total 413.6 ml Output Total 1400 ml Balance -986.4 ml Intake Oral 0 ml IV Total 413.6 ml Gastric Drainage Total 1400 ml Physical Exam Heart: Normal S1, Normal S2 General: Alert, No acute distress Lungs: Clear to auscultation Assessment Assessment Problems Medical Problems: (1) Acute renal failure Status: Acute Assessment/Plan 52 yo male presents with week long history of fever and found to have thrombocytopenia, ARF, elevated LFTs 1. Septic shock - Fever - Tick borne illness suspected. I d/w Dr Lujan. Improving. Per ID: d/c dapto and cont doxycycline. d/c meropenem, add acyclovir 2. Dehydration 3. Acute renal failure 4. Elevated LFTs 5. Thrombocytopenia due to sepsis, no clinical evidence of TTP, no evidence of schistocytes, normal retic and haptoglobin and Hb. He should be transfused plts if his plt count <10 or he develops active bleeding. Plt better at 30 on 08/27/18. Plt better at 47 on 08/28/18, Plt better at 58 on 08/29/18 Plt better at 67 on 08/30/18. Plt better at 73 on 08/31/18 Monitor cbc. Comment Review of Relevant I have reviewed the following items gera (where applicable) has been applied. Labs Laboratory Tests Test 08/29/18 13:30 08/30/18 05:30 08/30/18 05:35 08/31/18 05:00 CSF Tube Number 4 CSF Color Yellow CSF Clarity Clear CSF WBC 112 /cmm (Not Established) CSF RBC 11 /cmm (Not Established) CSF Mononuclear WBCs % 89 % CSF Polynuclear WBCs (%) 11 % CSF Glucose 52 mg/dL (37-70) CSF Total Protein 160.2 mg/dL (15.0-45.0) Herpes Simplex Virus I DNA (PCR) Negative (Negative) Herpes Simplex Virus II DNA (PCR) Negative (Negative) White Blood Count 13.0 x10^3/uL (4.0-11.0) 11.3 x10^3/uL (4.0-11.0) Red Blood Count 2.92 x10^6/uL (4.30-5.70) 3.07 x10^6/uL (4.30-5.70) Hemoglobin 8.4 g/dL (13.0-17.5) 9.0 g/dL (13.0-17.5) Hematocrit 24.7 % (39.0-53.0) 26.2 % (39.0-53.0) Mean Corpuscular Volume 84 fL (79-100) 85 fL (79-100) Mean Corpuscular Hemoglobin 29 pg (25-35) 30 pg (25-35) Mean Corpuscular Hemoglobin Concent 34 g/dL (31-37) 35 g/dL (31-37) Red Cell Distribution Width 16.5 % (11.5-14.5) 16.8 % (11.5-14.5) Platelet Count 67 x10^3/uL (140-400) 73 x10^3/uL (140-400) Neutrophils (%) (Auto) 54 % (31-73) 51 % (31-73) Lymphocytes (%) (Auto) 29 % (24-48) 26 % (24-48) Monocytes (%) (Auto) 14 % (0-9) 21 % (0-9) Eosinophils (%) (Auto) 1 % (0-3) 2 % (0-3) Basophils (%) (Auto) 1 % (0-3) 1 % (0-3) Neutrophils # (Auto) 7.1 x10^3uL (1.8-7.7) 5.7 x10^3uL (1.8-7.7) Lymphocytes # (Auto) 3.8 x10^3/uL (1.0-4.8) 2.9 x10^3/uL (1.0-4.8) Monocytes # (Auto) 1.9 x10^3/uL (0.0-1.1) 2.3 x10^3/uL (0.0-1.1) Eosinophils # (Auto) 0.1 x10^3/uL (0.0-0.7) 0.2 x10^3/uL (0.0-0.7) Basophils # (Auto) 0.1 x10^3/uL (0.0-0.2) 0.1 x10^3/uL (0.0-0.2) Sodium Level 140 mmol/L (136-145) 138 mmol/L (136-145) Potassium Level 3.7 mmol/L (3.5-5.1) 4.1 mmol/L (3.5-5.1) Chloride Level 95 mmol/L (98-107) 101 mmol/L (98-107) Carbon Dioxide Level 31 mmol/L (21-32) 26 mmol/L (21-32) Anion Gap 14 (6-14) 11 (6-14) Blood Urea Nitrogen 88 mg/dL (8-26) 52 mg/dL (8-26) Creatinine 7.9 mg/dL (0.7-1.3) 6.2 mg/dL (0.7-1.3) Estimated GFR (Cockcroft-Gault) 7.2 9.5 Glucose Level 110 mg/dL (70-99) 152 mg/dL (70-99) Calcium Level 7.1 mg/dL (8.5-10.1) 7.7 mg/dL (8.5-10.1) Phosphorus Level 5.0 mg/dL (2.6-4.7) 3.4 mg/dL (2.6-4.7) Albumin 2.2 g/dL (3.4-5.0) 2.2 g/dL (3.4-5.0) 2.2 g/dL (3.4-5.0) Total Bilirubin 4.1 mg/dL (0.2-1.0) 2.6 mg/dL (0.2-1.0) Direct Bilirubin 3.7 mg/dL (0.0-0.2) 2.3 mg/dL (0.0-0.2) Aspartate Amino Transf (AST/SGOT) 328 U/L (15-37) 215 U/L (15-37) Alanine Aminotransferase (ALT/SGPT) 93 U/L (16-63) 74 U/L (16-63) Alkaline Phosphatase 309 U/L (46-116) 298 U/L (46-116) Total Protein 5.6 g/dL (6.4-8.2) 5.9 g/dL (6.4-8.2) Magnesium Level 3.0 mg/dL (1.8-2.4) Triglycerides Level 474 mg/dL (0-150) Laboratory Tests Test 08/31/18 05:00 White Blood Count 11.3 x10^3/uL (4.0-11.0) Red Blood Count 3.07 x10^6/uL (4.30-5.70) Hemoglobin 9.0 g/dL (13.0-17.5) Hematocrit 26.2 % (39.0-53.0) Mean Corpuscular Volume 85 fL (79-100) Mean Corpuscular Hemoglobin 30 pg (25-35) Mean Corpuscular Hemoglobin Concent 35 g/dL (31-37) Red Cell Distribution Width 16.8 % (11.5-14.5) Platelet Count 73 x10^3/uL (140-400) Neutrophils (%) (Auto) 51 % (31-73) Lymphocytes (%) (Auto) 26 % (24-48) Monocytes (%) (Auto) 21 % (0-9) Eosinophils (%) (Auto) 2 % (0-3) Basophils (%) (Auto) 1 % (0-3) Neutrophils # (Auto) 5.7 x10^3uL (1.8-7.7) Lymphocytes # (Auto) 2.9 x10^3/uL (1.0-4.8) Monocytes # (Auto) 2.3 x10^3/uL (0.0-1.1) Eosinophils # (Auto) 0.2 x10^3/uL (0.0-0.7) Basophils # (Auto) 0.1 x10^3/uL (0.0-0.2) Sodium Level 138 mmol/L (136-145) Potassium Level 4.1 mmol/L (3.5-5.1) Chloride Level 101 mmol/L (98-107) Carbon Dioxide Level 26 mmol/L (21-32) Anion Gap 11 (6-14) Blood Urea Nitrogen 52 mg/dL (8-26) Creatinine 6.2 mg/dL (0.7-1.3) Estimated GFR (Cockcroft-Gault) 9.5 Glucose Level 152 mg/dL (70-99) Calcium Level 7.7 mg/dL (8.5-10.1) Phosphorus Level 3.4 mg/dL (2.6-4.7) Magnesium Level 3.0 mg/dL (1.8-2.4) Total Bilirubin 2.6 mg/dL (0.2-1.0) Direct Bilirubin 2.3 mg/dL (0.0-0.2) Aspartate Amino Transf (AST/SGOT) 215 U/L (15-37) Alanine Aminotransferase (ALT/SGPT) 74 U/L (16-63) Alkaline Phosphatase 298 U/L (46-116) Total Protein 5.9 g/dL (6.4-8.2) Albumin 2.2 g/dL (3.4-5.0) Triglycerides Level 474 mg/dL (0-150) Microbiology 08/26/18 Blood Culture - Final, Complete NO GROWTH AFTER 5 DAYS 08/29/18 CSF Gram Stain - Final, Complete 08/27/18 Stool Culture - Final, Resulted 08/27/18 Stool Culture Result 1 (LOTUS) - Final, Resulted 08/27/18 Campylobacter Antigen Assay - Preliminary, Resulted 08/27/18 Campylobactor Result 1 - Preliminary, Resulted 08/27/18 Shiga Toxin Test - Final, Resulted 08/25/18 Throat Culture - Final, Complete 08/25/18 - Final, Complete Medications Current Medications Sodium Chloride 1,000 ml @ 1,000 mls/hr 1X ONCE IV Last administered on 08/25/18at 20:38; Start 08/25/18 at 19:15; Stop 08/25/18 at 20:14; Status DC Ibuprofen (Motrin) 600 mg 1X ONCE PO Last administered on 08/25/18 20:38; Start 08/25/18 at 19:45; Stop 08/25/18 at 19:49; Status DC Sodium Chloride 1,000 ml @ 1,000 mls/hr 1X ONCE IV Last administered on 08/25/18at 20:30; Start 08/25/18 at 20:30; Stop 08/25/18 at 21:29; Status DC Ceftriaxone Sodium (Rocephin) 1 gm 1X ONCE IVP Last administered on 08/25/18at 20:36; Start 08/25/18 at 20:30; Stop 08/25/18 at 20:31; Status DC Vancomycin HCl 2 gm/Sodium Chloride 500 ml @ 250 mls/hr 1X ONCE IV Last administered on 08/25/18at 23:10; Start 08/25/18 at 21:30; Stop 08/25/18 at 23:29; Status DC Sodium Chloride 1,000 ml @ 1,000 mls/hr 1X ONCE IV Last administered on 08/25/18at 23:51; Start 08/25/18 at 21:00; Stop 08/25/18 at 21:59; Status DC Piperacillin Sod/ Tazobactam Sod 4.5 gm/Sodium Chloride 100 ml @ 200 mls/hr 1X ONCE IV ; Start 08/25/18 at 21:15; Stop 08/25/18 at 21:44; Status DC Aztreonam (Azactam) 2 gm 1X ONCE IVP Last administered on 08/25/18at 21:15; Start 08/25/18 at 21:15; Stop 08/25/18 at 21:16; Status DC Magnesium Sulfate 50 ml @ 25 mls/hr 1X ONCE IV Last administered on 08/25/18at 23:51; Start 08/25/18 at 21:15; Stop 08/25/18 at 23:14; Status DC Ondansetron HCl (Zofran) 4 mg PRN Q8HRS PRN IV NAUSEA/VOMITING; Start 08/25/18 at 21:15; Stop 08/26/18 at 21:14; Status DC Acetaminophen (Tylenol) 650 mg PRN Q4HRS PRN PO FEVER; Start 08/25/18 at 21:15; Stop 08/26/18 at 21:14; Status DC Sodium Chloride 1,000 ml @ 125 mls/hr 1X ONCE IV Last administered on at 23:09; Start 08/25/18 at 21:15; Stop 08/26/18 at 05:14; Status DC Daptomycin 610 mg/ Sodium Chloride 50 ml @ 100 mls/hr QODAY IV Last administered on 08/27/18at 08:59; Start 08/27/18 at 09:00; Stop 08/28/18 at 15:40; Status DC Meropenem 500 mg/ Sodium Chloride 50 ml @ 100 mls/hr 1X ONCE IV Last administered on 08/25/18at 22:12; Start 08/25/18 at 22:00; Stop 08/25/18 at 22:29; Status DC Doxycycline Hyclate 100 mg/ Dextrose 100 ml @ 50 mls/hr Q12HR IV Last administered on 08/31/18at 10:21; Start 08/26/18 at 09:00 Meropenem 500 mg/ Sodium Chloride 50 ml @ 100 mls/hr DAILY IV Last administered on 08/29/18at 10:13; Start 08/26/18 at 09:00; Stop 08/30/18 at 08:17; Status DC Sodium Chloride (Normal Saline Flush) 10 ml QSHIFT PRN IV AFTER MEDS AND BLOOD DRAWS; Start 08/26/18 at 09:15 Norepinephrine Bitartrate 250 ml @ 0 mls/hr CONT PRN IV PER PROTOCOL Last administered on 08/27/18at 10:21; Start 08/26/18 at 09:15; Stop 08/30/18 at 17:20; Status DC Famotidine (Pepcid) 20 mg DAILY PO Last administered on 08/27/18at 08:14; Start 08/26/18 at 12:00; Stop 08/27/18 at 14:36; Status DC Sodium Chloride 1,000 ml @ 1,000 mls/hr Q1H PRN IV hypotension; Start 08/26/18 at 11:51; Stop 08/26/18 at 17:50; Status DC Sodium Chloride (Normal Saline Flush) 10 ml 1X PRN PRN IV AP catheter pack; Start 08/26/18 at 12:00; Stop 08/27/18 at 11:59; Status DC Sodium Chloride (Normal Saline Flush) 10 ml 1X PRN PRN IV [employer]PUT[employer] TRA[employer]ING [employer]IST catheter pack; Start 08/26/18 at 12:00; Stop 08/27/18 at 11:59; Status DC Sodium Chloride 1,000 ml @ 400 mls/hr Q2H30M PRN IV PATENCY; Start 08/26/18 at 11:51; Stop 08/26/18 at 23:50; Status DC Info (PHARMACY MONITORING -- do not chart) 1 each PRN DAILY PRN MC SEE COMMENTS; Start 08/26/18 at 12:00; Status UNV Info (PHARMACY MONITORING -- do not chart) 1 each PRN DAILY PRN MC SEE COMMENTS; Start 08/26/18 at 12:00 Lidocaine/Sodium Bicarbonate (Buffered Lidocaine 1%) 4 ml 1X ONCE INJ Last administered on 08/26/18at 12:45; Start 08/26/18 at 12:45; Stop 08/26/18 at 12:48; Status DC Heparin Sodium (Porcine) (Heparin Sodium) 2,500 unit 1X ONCE INT CAT Last administered on 08/26/18at 12:45; Start 08/26/18 at 12:45; Stop 08/26/18 at 1 2:48; Status DC Lidocaine/Sodium Bicarbonate (Buffered Lidocaine 1%) 3 ml STK-MED ONCE .ROUTE ; Start 08/26/18 at 12:49; Stop 08/26/18 at 12:50; Status DC Heparin Sodium (Porcine) (Heparin Sodium) 10,000 unit STK-MED ONCE .ROUTE ; Start 08/26/18 at 12:49; Stop 08/26/18 at 12:50; Status DC Lactobacillus Rhamnosus (Culturelle) 1 cap BID PO Last administered on 08/28/18at 08:01; Start 08/26/18 at 21:00 Acetaminophen (Tylenol) 325 mg STK-MED ONCE PO ; Start 08/27/18 at 00:43; Stop 08/27/18 at 00:44; Status DC Sodium Chloride 1,000 ml @ 1,000 mls/hr 1X ONCE IV Last administered on 08/27/18at 11:05; Start 08/27/18 at 10:30; Stop 08/27/18 at 11:29; Status DC Sodium Chloride 1,000 ml @ 1,000 mls/hr Q1H PRN IV hypotension; Start 08/27/18 at 11:28; Stop 08/27/18 at 17:27; Status DC Albumin Human 200 ml @ 200 mls/hr 1X PRN PRN IV Hypotension; Start 08/27/18 at 11:30; Stop 08/27/18 at 17:29; Status DC Sodium Chloride (Normal Saline Flush) 10 ml 1X PRN PRN IV AP catheter pack; Start 08/27/18 at 11:30; Stop 08/28/18 at 11:29; Status DC Sodium Chloride (Normal Saline Flush) 10 ml 1X PRN PRN IV COMPUTER TRAINING SPECIALIST catheter pack; Start 08/27/18 at 11:30; Stop 08/28/18 at 11:29; Status DC Sodium Chloride 1,000 ml @ 400 mls/hr Q2H30M PRN IV PATENCY; Start 08/27/18 at 11:28; Stop 08/27/18 at 23:27; Status DC Info (PHARMACY MONITORING -- do not chart) 1 each PRN DAILY PRN MC SEE COMMENTS; Start 08/27/18 at 11:30; Status UNV Info (PHARMACY MONITORING -- do not chart) 1 each PRN DAILY PRN MC SEE COMMENTS; Start 08/27/18 at 11:30; Status UNV Famotidine (Pepcid) 20 mg Q48H PO ; Start 08/29/18 at 09:00; Stop 08/29/18 at 11:29; Status DC Acetaminophen (Tylenol) 650 mg PRN Q6HRS PRN PO pain/fever; Start 08/27/18 at 21:15 Acetaminophen (Tylenol Supp) 650 mg PRN Q6HRS PRN TX MILD PAIN / TEMP Last administered on 08/27/18at 21:25; Start 08/27/18 at 21:15 Fentanyl Citrate (Fentanyl 2ml Vial) 25 mcg 1X ONCE IV Last administered on 08/28/18at 08:54; Start 08/28/18 at 08:45; Stop 08/28/18 at 08:47; Status DC Lidocaine/Sodium Bicarbonate (Buffered Lidocaine 1%) 3 ml STK-MED ONCE .ROUTE ; Start 08/28/18 at 09:55; Stop 08/28/18 at 09:56; Status DC Lidocaine HCl (Glydo (Lidocaine) Jelly) 1 meng 1X STAT MM Last administered on 08/28/18at 10:16; Start 08/28/18 at 10:16; Stop 08/28/18 at 10:19; Status DC Benzocaine (Hurricaine One) 1 spray 1X STAT MM Last administered on 08/28/18at 10:16; Start 08/28/18 at 10:16; Stop 08/28/18 at 10:19; Status DC Lidocaine/Sodium Bicarbonate (Buffered Lidocaine 1%) 3 ml 1X ONCE INJ ; Start 08/28/18 at 10:30; Stop 08/28/18 at 10:31; Status DC Haloperidol Lactate (Haldol Inj) 5 mg PRN Q6HRS PRN IVP AGITATION Last administered on 08/29/18at 20:31; Start 08/28/18 at 12:00 Fentanyl Citrate (Fentanyl 2ml Vial) 50 mcg PRN Q4HRS PRN IV PAIN Last administered on 08/28/18at 21:44; Start 08/28/18 at 15:30 Sodium Chloride 1,000 ml @ 1,000 mls/hr Q1H PRN IV hypotension; Start 08/28/18 at 14:00; Stop 08/28/18 at 19:59; Status DC Albumin Human 200 ml @ 200 mls/hr 1X PRN PRN IV Hypotension Last administered on 08/28/18at 14:50; Start 08/28/18 at 14:00 Sodium Chloride 1,000 ml @ 400 mls/hr Q2H30M PRN IV PATENCY; Start 08/28/18 at 14:00; Stop 08/29/18 at 01:59; Status DC Info (PHARMACY MONITORING -- do not chart) 1 each PRN DAILY PRN MC SEE COMMENTS; Start 08/28/18 at 15:30; Status UNV Info (PHARMACY MONITORING -- do not chart) 1 each PRN DAILY PRN MC SEE COMMENTS; Start 08/28/18 at 15:30; Status UNV Daptomycin 610 mg/ Sodium Chloride 50 ml @ 100 mls/hr Q48H IV ; Start 08/30/18 at 16:00; Stop 08/30/18 at 16:00; Status DC Famotidine (Pepcid Vial) 20 mg QHS IVP Last administered on 08/30/18at 21:16; Start 08/29/18 at 21:00 Acyclovir Sodium 340 mg/Dextrose 106.8 ml @ 106.8 mls/ hr Q12HR IV Last administered on 08/30/18at 21:16; Start 08/30/18 at 09:00 Sodium Chloride 1,000 ml @ 1,000 mls/hr Q1H PRN IV hypotension; Start 08/30/18 at 11:02; Stop 08/30/18 at 17:01; Status DC Sodium Chloride 1,000 ml @ 400 mls/hr Q2H30M PRN IV PATENCY; Start 08/30/18 at 11:02; Stop 08/30/18 at 23:01; Status DC Info (PHARMACY MONITORING -- do not chart) 1 each PRN DAILY PRN MC SEE COMMENTS; Start 08/30/18 at 11:15; Status UNV Info (PHARMACY MONITORING -- do not chart) 1 each PRN DAILY PRN MC SEE COMMENTS; Start 08/30/18 at 11:15; Status UNV Info (Tpn Per Pharmacy) 1 each PRN DAILY PRN MC SEE COMMENTS Last administered on 08/30/18at 13:12; Start 08/30/18 at 12:45 Sodium Chloride 90 meq/Potassium Chloride 50 meq/ Potassium Phosphate 3 mmol/ Magnesium Sulfate 10 meq/Calcium Gluconate 10 meq/ Multivitamins 10 ml/Chromium/ Copper/Manganese/ Seleni/Zn 1 ml/ Total Parenteral Nutrition/Amino Acids/Dextrose/ Fat Emulsion Intravenous 1,512 ml @ 63 mls/hr TPN CONT IV Last administered on 08/30/18at 21:40; Start 08/30/18 at 22:00; Stop 08/31/18 at 21:59 Ondansetron HCl (Zofran) 4 mg PRN Q6HRS PRN IV NAUSEA/VOMITING; Start 08/31/18 at 08:00 Haloperidol (Haldol) 2 mg PRN QID PRN PO AGITATION; Start 08/31/18 at 08:00 Active Scripts Active Potassium Chloride 20 Meq Tablet.er 20 Meq PO DAILY Orphenadrine Citrate 100 Mg Tablet.er 100 Mg PO Q12HR Anaprox Ds (Naproxen Sodium) 550 Mg Tablet 550 Mg PO Q12HR Reported Prednisone 20 Mg Tablet 1 Tab PO DAILY Hydrochlorothiazide Tablet (Hydrochlorothiazide) 12.5 Mg Tablet 12.5 Mg PO DAILY Shilpi Allergy (Fexofenadine Hcl) 180 Mg Tablet 1 Tab PO DAILY Vitals/I & O Vital Sign - Last 24 Hours 08/30/18 08/30/18 08/30/18 08/30/18 12:00 12:34 13:00 14:00 Temp 98.4 98.4 Pulse 68 72 74 Resp 32 35 34 B/P (MAP) 153/82 (105) 151/82 (105) 135/86 (102) Pulse Ox 97 97 100 O2 Delivery Venturi Mask Venturi Mask Venturi Mask Venturi Mask 08/30/18 08/30/18 08/30/18 08/30/18 15:00 16:00 16:00 17:27 Temp 97.7 98.1 97.7 98.1 Pulse 75 77 68 Resp 34 33 28 B/P (MAP) 140/71 (94) 134/77 (96) 137/80 (99) Pulse Ox 100 96 94 O2 Delivery Venturi Mask Venturi Mask Venturi Mask Venturi Mask O2 Flow Rate 15.0 08/30/18 08/30/18 08/30/18 08/31/18 19:50 20:00 23:52 03:25 Temp 97.8 98.2 98.9 97.8 98.2 98.9 Pulse 78 90 84 Resp 22 22 20 B/P (MAP) 139/79 (99) 100/73 (82) 158/79 (105) Pulse Ox 93 93 95 O2 Delivery Venturi Mask Venturi Mask Venturi Mask Venturi Mask O2 Flow Rate 15.0 08/31/18 08/31/18 07:00 08:00 Temp 98.6 98.6 Pulse 84 Resp 22 B/P (MAP) 137/86 (103) Pulse Ox 95 O2 Delivery Venturi Mask Venturi Mask O2 Flow Rate 15.0 15.0 Intake and Output 08/30/18 08/30/18 08/31/18 14:59 22:59 06:59 Intake Total 100 ml 213.6 ml 100 ml Output Total 800 ml 600 ml Balance 100 ml -586.4 ml -500 ml JAVON COSME MD August 31, 2018 11:08
--- NOTE | 2018-08-31 11:27 | PDOC ---
INDIGO REARDON [employer]KER 08/31/18 1127: SURGICAL PROGRESS NOTE Subjective denies abdominal pain family present Vital Signs Vital Signs Date Time Temp Pulse Resp B/P (MAP) Pulse Ox O2 Delivery O2 Flow Rate FiO2 08/31/18 08:00 Venturi Mask 15.0 08/31/18 07:00 98.6 84 22 137/86 (103) 95 98.6 I&O Intake and Output 08/31/18 07:00 Intake Total 413.6 ml Output Total 1400 ml Balance -986.4 ml Intake Oral 0 ml IV Total 413.6 ml Gastric Drainage Total 1400 ml General: Cooperative, No acute distress HEENT: Other (NG bilious) Labs Laboratory Tests Test 08/29/18 13:30 08/30/18 05:30 08/30/18 05:35 08/31/18 05:00 CSF Tube Number 4 CSF Color Yellow CSF Clarity Clear CSF WBC 112 /cmm (Not Established) CSF RBC 11 /cmm (Not Established) CSF Mononuclear WBCs % 89 % CSF Polynuclear WBCs (%) 11 % CSF Glucose 52 mg/dL (37-70) CSF Total Protein 160.2 mg/dL (15.0-45.0) Herpes Simplex Virus I DNA (PCR) Negative (Negative) Herpes Simplex Virus II DNA (PCR) Negative (Negative) White Blood Count 13.0 x10^3/uL (4.0-11.0) 11.3 x10^3/uL (4.0-11.0) Red Blood Count 2.92 x10^6/uL (4.30-5.70) 3.07 x10^6/uL (4.30-5.70) Hemoglobin 8.4 g/dL (13.0-17.5) 9.0 g/dL (13.0-17.5) Hematocrit 24.7 % (39.0-53.0) 26.2 % (39.0-53.0) Mean Corpuscular Volume 84 fL (79-100) 85 fL (79-100) Mean Corpuscular Hemoglobin 29 pg (25-35) 30 pg (25-35) Mean Corpuscular Hemoglobin Concent 34 g/dL (31-37) 35 g/dL (31-37) Red Cell Distribution Width 16.5 % (11.5-14.5) 16.8 % (11.5-14.5) Platelet Count 67 x10^3/uL (140-400) 73 x10^3/uL (140-400) Neutrophils (%) (Auto) 54 % (31-73) 51 % (31-73) Lymphocytes (%) (Auto) 29 % (24-48) 26 % (24-48) Monocytes (%) (Auto) 14 % (0-9) 21 % (0-9) Eosinophils (%) (Auto) 1 % (0-3) 2 % (0-3) Basophils (%) (Auto) 1 % (0-3) 1 % (0-3) Neutrophils # (Auto) 7.1 x10^3uL (1.8-7.7) 5.7 x10^3uL (1.8-7.7) Lymphocytes # (Auto) 3.8 x10^3/uL (1.0-4.8) 2.9 x10^3/uL (1.0-4.8) Monocytes # (Auto) 1.9 x10^3/uL (0.0-1.1) 2.3 x10^3/uL (0.0-1.1) Eosinophils # (Auto) 0.1 x10^3/uL (0.0-0.7) 0.2 x10^3/uL (0.0-0.7) Basophils # (Auto) 0.1 x10^3/uL (0.0-0.2) 0.1 x10^3/uL (0.0-0.2) Sodium Level 140 mmol/L (136-145) 138 mmol/L (136-145) Potassium Level 3.7 mmol/L (3.5-5.1) 4.1 mmol/L (3.5-5.1) Chloride Level 95 mmol/L (98-107) 101 mmol/L (98-107) Carbon Dioxide Level 31 mmol/L (21-32) 26 mmol/L (21-32) Anion Gap 14 (6-14) 11 (6-14) Blood Urea Nitrogen 88 mg/dL (8-26) 52 mg/dL (8-26) Creatinine 7.9 mg/dL (0.7-1.3) 6.2 mg/dL (0.7-1.3) Estimated GFR (Cockcroft-Gault) 7.2 9.5 Glucose Level 110 mg/dL (70-99) 152 mg/dL (70-99) Calcium Level 7.1 mg/dL (8.5-10.1) 7.7 mg/dL (8.5-10.1) Phosphorus Level 5.0 mg/dL (2.6-4.7) 3.4 mg/dL (2.6-4.7) Albumin 2.2 g/dL (3.4-5.0) 2.2 g/dL (3.4-5.0) 2.2 g/dL (3.4-5.0) Total Bilirubin 4.1 mg/dL (0.2-1.0) 2.6 mg/dL (0.2-1.0) Direct Bilirubin 3.7 mg/dL (0.0-0.2) 2.3 mg/dL (0.0-0.2) Aspartate Amino Transf (AST/SGOT) 328 U/L (15-37) 215 U/L (15-37) Alanine Aminotransferase (ALT/SGPT) 93 U/L (16-63) 74 U/L (16-63) Alkaline Phosphatase 309 U/L (46-116) 298 U/L (46-116) Total Protein 5.6 g/dL (6.4-8.2) 5.9 g/dL (6.4-8.2) Magnesium Level 3.0 mg/dL (1.8-2.4) Triglycerides Level 474 mg/dL (0-150) Laboratory Tests Test 08/31/18 05:00 White Blood Count 11.3 x10^3/uL (4.0-11.0) Red Blood Count 3.07 x10^6/uL (4.30-5.70) Hemoglobin 9.0 g/dL (13.0-17.5) Hematocrit 26.2 % (39.0-53.0) Mean Corpuscular Volume 85 fL (79-100) Mean Corpuscular Hemoglobin 30 pg (25-35) Mean Corpuscular Hemoglobin Concent 35 g/dL (31-37) Red Cell Distribution Width 16.8 % (11.5-14.5) Platelet Count 73 x10^3/uL (140-400) Neutrophils (%) (Auto) 51 % (31-73) Lymphocytes (%) (Auto) 26 % (24-48) Monocytes (%) (Auto) 21 % (0-9) Eosinophils (%) (Auto) 2 % (0-3) Basophils (%) (Auto) 1 % (0-3) Neutrophils # (Auto) 5.7 x10^3uL (1.8-7.7) Lymphocytes # (Auto) 2.9 x10^3/uL (1.0-4.8) Monocytes # (Auto) 2.3 x10^3/uL (0.0-1.1) Eosinophils # (Auto) 0.2 x10^3/uL (0.0-0.7) Basophils # (Auto) 0.1 x10^3/uL (0.0-0.2) Sodium Level 138 mmol/L (136-145) Potassium Level 4.1 mmol/L (3.5-5.1) Chloride Level 101 mmol/L (98-107) Carbon Dioxide Level 26 mmol/L (21-32) Anion Gap 11 (6-14) Blood Urea Nitrogen 52 mg/dL (8-26) Creatinine 6.2 mg/dL (0.7-1.3) Estimated GFR (Cockcroft-Gault) 9.5 Glucose Level 152 mg/dL (70-99) Calcium Level 7.7 mg/dL (8.5-10.1) Phosphorus Level 3.4 mg/dL (2.6-4.7) Magnesium Level 3.0 mg/dL (1.8-2.4) Total Bilirubin 2.6 mg/dL (0.2-1.0) Direct Bilirubin 2.3 mg/dL (0.0-0.2) Aspartate Amino Transf (AST/SGOT) 215 U/L (15-37) Alanine Aminotransferase (ALT/SGPT) 74 U/L (16-63) Alkaline Phosphatase 298 U/L (46-116) Total Protein 5.9 g/dL (6.4-8.2) Albumin 2.2 g/dL (3.4-5.0) Triglycerides Level 474 mg/dL (0-150) Problem List Problems Medical Problems: (1) Acute renal failure Status: Acute Assessment/Plan NG output starting to decrease continue NG TR AMBROSE V MD 08/31/18 1130: SURGICAL PROGRESS NOTE Assessment/Plan as above I am out of town til Monday Dr Lujan and Indigo Reardon to follow in my absence INDIGO REARDON APRN August 31, 2018 11:27 TR AMBROSE MD August 31, 2018 11:30
[2018-08-31] MEDS: ACYCLOVIR SODIUM IV SCH ×2 (12:11→20:58)
[2018-08-31] MEDS: DEXTROSE 5% IV SCH ×2 (12:11→20:58)
--- NOTE | 2018-08-31 12:12 | NUR ---
Patient underwent Brain MRI this morning. Doxycycline administered at 1021 after the procedure and subsequently Acyclovir was started. Patient's at the bedside, updated of patient's care.
--- NOTE | 2018-08-31 12:15 | PDOC ---
PULMONARY PROGRESS NOTES Subjective PT OFF BIPAP CONFUSED Vitals Vital Signs Date Time Temp Pulse Resp B/P (MAP) Pulse Ox O2 Delivery O2 Flow Rate FiO2 08/31/18 08:00 Venturi Mask 15.0 08/31/18 07:00 98.6 84 22 137/86 (103) 95 98.6 General: Alert, Confused, Lethargic Lungs: Crackles Cardiovascular: S1, S2 Abdomen: Soft Extremities: No Edema Skin: Warm Labs Laboratory Tests Test 08/29/18 13:30 08/30/18 05:30 08/30/18 05:35 08/31/18 05:00 CSF Tube Number 4 CSF Color Yellow CSF Clarity Clear CSF WBC 112 /cmm (Not Established) CSF RBC 11 /cmm (Not Established) CSF Mononuclear WBCs % 89 % CSF Polynuclear WBCs (%) 11 % CSF Glucose 52 mg/dL (37-70) CSF Total Protein 160.2 mg/dL (15.0-45.0) Herpes Simplex Virus I DNA (PCR) Negative (Negative) Herpes Simplex Virus II DNA (PCR) Negative (Negative) White Blood Count 13.0 x10^3/uL (4.0-11.0) 11.3 x10^3/uL (4.0-11.0) Red Blood Count 2.92 x10^6/uL (4.30-5.70) 3.07 x10^6/uL (4.30-5.70) Hemoglobin 8.4 g/dL (13.0-17.5) 9.0 g/dL (13.0-17.5) Hematocrit 24.7 % (39.0-53.0) 26.2 % (39.0-53.0) Mean Corpuscular Volume 84 fL (79-100) 85 fL (79-100) Mean Corpuscular Hemoglobin 29 pg (25-35) 30 pg (25-35) Mean Corpuscular Hemoglobin Concent 34 g/dL (31-37) 35 g/dL (31-37) Red Cell Distribution Width 16.5 % (11.5-14.5) 16.8 % (11.5-14.5) Platelet Count 67 x10^3/uL (140-400) 73 x10^3/uL (140-400) Neutrophils (%) (Auto) 54 % (31-73) 51 % (31-73) Lymphocytes (%) (Auto) 29 % (24-48) 26 % (24-48) Monocytes (%) (Auto) 14 % (0-9) 21 % (0-9) Eosinophils (%) (Auto) 1 % (0-3) 2 % (0-3) Basophils (%) (Auto) 1 % (0-3) 1 % (0-3) Neutrophils # (Auto) 7.1 x10^3uL (1.8-7.7) 5.7 x10^3uL (1.8-7.7) Lymphocytes # (Auto) 3.8 x10^3/uL (1.0-4.8) 2.9 x10^3/uL (1.0-4.8) Monocytes # (Auto) 1.9 x10^3/uL (0.0-1.1) 2.3 x10^3/uL (0.0-1.1) Eosinophils # (Auto) 0.1 x10^3/uL (0.0-0.7) 0.2 x10^3/uL (0.0-0.7) Basophils # (Auto) 0.1 x10^3/uL (0.0-0.2) 0.1 x10^3/uL (0.0-0.2) Sodium Level 140 mmol/L (136-145) 138 mmol/L (136-145) Potassium Level 3.7 mmol/L (3.5-5.1) 4.1 mmol/L (3.5-5.1) Chloride Level 95 mmol/L (98-107) 101 mmol/L (98-107) Carbon Dioxide Level 31 mmol/L (21-32) 26 mmol/L (21-32) Anion Gap 14 (6-14) 11 (6-14) Blood Urea Nitrogen 88 mg/dL (8-26) 52 mg/dL (8-26) Creatinine 7.9 mg/dL (0.7-1.3) 6.2 mg/dL (0.7-1.3) Estimated GFR (Cockcroft-Gault) 7.2 9.5 Glucose Level 110 mg/dL (70-99) 152 mg/dL (70-99) Calcium Level 7.1 mg/dL (8.5-10.1) 7.7 mg/dL (8.5-10.1) Phosphorus Level 5.0 mg/dL (2.6-4.7) 3.4 mg/dL (2.6-4.7) Albumin 2.2 g/dL (3.4-5.0) 2.2 g/dL (3.4-5.0) 2.2 g/dL (3.4-5.0) Total Bilirubin 4.1 mg/dL (0.2-1.0) 2.6 mg/dL (0.2-1.0) Direct Bilirubin 3.7 mg/dL (0.0-0.2) 2.3 mg/dL (0.0-0.2) Aspartate Amino Transf (AST/SGOT) 328 U/L (15-37) 215 U/L (15-37) Alanine Aminotransferase (ALT/SGPT) 93 U/L (16-63) 74 U/L (16-63) Alkaline Phosphatase 309 U/L (46-116) 298 U/L (46-116) Total Protein 5.6 g/dL (6.4-8.2) 5.9 g/dL (6.4-8.2) Magnesium Level 3.0 mg/dL (1.8-2.4) Triglycerides Level 474 mg/dL (0-150) Laboratory Tests Test 08/31/18 05:00 White Blood Count 11.3 x10^3/uL (4.0-11.0) Red Blood Count 3.07 x10^6/uL (4.30-5.70) Hemoglobin 9.0 g/dL (13.0-17.5) Hematocrit 26.2 % (39.0-53.0) Mean Corpuscular Volume 85 fL (79-100) Mean Corpuscular Hemoglobin 30 pg (25-35) Mean Corpuscular Hemoglobin Concent 35 g/dL (31-37) Red Cell Distribution Width 16.8 % (11.5-14.5) Platelet Count 73 x10^3/uL (140-400) Neutrophils (%) (Auto) 51 % (31-73) Lymphocytes (%) (Auto) 26 % (24-48) Monocytes (%) (Auto) 21 % (0-9) Eosinophils (%) (Auto) 2 % (0-3) Basophils (%) (Auto) 1 % (0-3) Neutrophils # (Auto) 5.7 x10^3uL (1.8-7.7) Lymphocytes # (Auto) 2.9 x10^3/uL (1.0-4.8) Monocytes # (Auto) 2.3 x10^3/uL (0.0-1.1) Eosinophils # (Auto) 0.2 x10^3/uL (0.0-0.7) Basophils # (Auto) 0.1 x10^3/uL (0.0-0.2) Sodium Level 138 mmol/L (136-145) Potassium Level 4.1 mmol/L (3.5-5.1) Chloride Level 101 mmol/L (98-107) Carbon Dioxide Level 26 mmol/L (21-32) Anion Gap 11 (6-14) Blood Urea Nitrogen 52 mg/dL (8-26) Creatinine 6.2 mg/dL (0.7-1.3) Estimated GFR (Cockcroft-Gault) 9.5 Glucose Level 152 mg/dL (70-99) Calcium Level 7.7 mg/dL (8.5-10.1) Phosphorus Level 3.4 mg/dL (2.6-4.7) Magnesium Level 3.0 mg/dL (1.8-2.4) Total Bilirubin 2.6 mg/dL (0.2-1.0) Direct Bilirubin 2.3 mg/dL (0.0-0.2) Aspartate Amino Transf (AST/SGOT) 215 U/L (15-37) Alanine Aminotransferase (ALT/SGPT) 74 U/L (16-63) Alkaline Phosphatase 298 U/L (46-116) Total Protein 5.9 g/dL (6.4-8.2) Albumin 2.2 g/dL (3.4-5.0) Triglycerides Level 474 mg/dL (0-150) Medications Active Scripts Medications Dose Route/Sig Max Daily Dose Days Date Category Prednisone 20 Mg Tablet 1 Tab PO DAILY 08/26/18 Reported Hydrochlorothiazide Tablet (Hydrochlorothiazide) 12.5 Mg Tablet 12.5 Mg PO DAILY 08/26/18 Reported Shilpi Allergy (Fexofenadine Hcl) 180 Mg Tablet 1 Tab PO DAILY 08/26/18 Reported Potassium Chloride 20 Meq Tablet.er 20 Meq PO DAILY 08/24/18 Rx Orphenadrine Citrate 100 Mg Tablet.er 100 Mg PO Q12HR 02/03/16 Rx Anaprox Ds (Naproxen Sodium) 550 Mg Tablet 550 Mg PO Q12HR 02/03/16 Rx Impression . IMPRESSION: 1. Acute hypoxemic respiratory failure, multifactorial, suspect acute lung injury from recent infection. 2. Suspect tick-borne illness. 3. Fever. 4. Lactic acidosis. 5. Acute renal failure. 6. Acute hepatic injury. 7. Thrombocytopenia. 8. Hemochromatosis. 9. ACUTE TOXIC MET ENCEPH POA 10 DYPHAGIA 11.ENCEPHALITIS POSSIBLE Plan . EHRLICHIA SEROLOGY PENDING SPOKE WITH LAB PER ID CHANGES ON COVERAGE NG ASPIRATE INCREASING PRN BIPAP CONTINUE SUPPORT HALDOL PRN D/W RN CCT 25 MIN ANISH DENNIS MD August 31, 2018 12:15
--- NOTE | 2018-08-31 12:16 | RAD ---
MRI of the brain without contrast 08/31/2018 Clinical History: Altered mental status. Mental status changes. Encephalopathy. Technique: Unenhanced T1-weighted sagittal and axial, T2-weighted axial and coronal and FLAIR, gradient echo and diffusion-weighted axial images of the brain were obtained. Findings: Comparison is made to the patient's CT scan of the head dated 08/29/2018. Images from the study are degraded patient motion. The ventricles and sulci are within normal limits in size and configuration. No definite area of significant area of abnormal signal intensity is seen involving the brain parenchyma. No extra-axial fluid collection is seen. There is no MRI evidence of acute ischemia/infarction. Mild mucosal thickening is seen scattered throughout the paranasal sinuses. There are small to moderate-sized bilateral mastoid effusions. Normal flow voids are seen within the major vascular structures surrounding the brain parenchyma. IMPRESSION: No acute parenchymal abnormality is seen. Electronically signed by: Jcarlos Thompson MD (08/31/2018 12:13 PM) [id number]
[2018-08-31 12:17] LABS: WEST NILE IGG CSF Positive (Negative); WEST NILE IGM CSF Negative (Negative)
[2018-08-31] MEDS ORDERED: HALOPERIDOL 2 MG/ML ORAL.CONC. PO PRN (12:43)
--- NOTE | 2018-08-31 13:13 | NUR ---
SW following. Discussed with RN and Dr. Lucio. Pt accepted medically at [facility]. Dr. Lucio agreeable to auth being started today, SW notified Michelle at [facility] to begin auth. CARISSA will continue to follow.
[2018-08-31] MEDS: TPN PER PHARMACY MC PRN ×2 (14:03→14:06)
--- NOTE | 2018-08-31 14:44 | PDOC ---
PROGRESS NOTES Assessment Assessment Metabolic encephalopathy. Confusion. Fever. Cough. Septic shock. Lactic acidosis. Renal failure on dialysis. Thrombocytopenia. Hepatomegaly. Tick bite 3 weeks ago.. Diarrhea. Elevated lipase. HTN. KIKI. Hemochromatosis Obesity. No evidence of acute CVA this time. RECOMMENDATIONS/PLAN: Treat medical diseases. Discussed with his at bedside on 08/31/18. OT/PT. EEG on 08/27/18: Encephalopathy. No seizure activity. HCT on 08/28/18: negative. CSF WBC 112, mono 89%, poly 11%, RBC 11, glucose 52, protein 160.2. Stool occult: positive. HISTORY OF THE PRESENT ILLNESS: 52-y-old male patient with hemochromatosis, KIKI, and HTN presented to the [facility] with fevers for about 1 week. He states he was more tired and fatigue. On Mother's Day he had a fever of 101. Next day, he saw his primary care physician and was tested for flu that was negative. He was instructed to take Ibuprofen alternating with Tylenol for the fever. He did that and Monday did not have a fever. On Monday he had a severe headache. He went to Urgent care in [place] and was given prednisone 20mg X 5 days at that time. He states that blood work was performed but does not know results. , he went to work with a mild headache and was tired and fatigued. night, he was found to have a fever of 104 and took ibuprofen. Monday he presented to the ED at [facility] and was evaluated. He stated that about 3 weeks ago he developed rash on his left lower extremity that he thought was poison Lexie. For the hemochromatosis, he follows with Dr. Iverson at [facility] and has been undergoing phlebotomy. His last phlebotomy was in late June of 2018. He had increased MS changes and confusion on 08/25, so Neurology was requested for consultation on 08/26. Past Medical History KIKI Hemochromatosis HTN Cardiovascular: HTN Pulmonary: No pertinent hx GI: No pertinent hx Heme/Onc: Hemochromatosis Hepatobiliary: No pertinent hx Family History His father had with hemochromatosis, of inoperable brain tumor Social History Lives at home with and three sons. 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 He denies any etoh, drugs and smoking Allergies Coded Allergies: aspirin (Verified Allergy, Intermediate, 02/03/16) pentazocine (Verified Allergy, Intermediate, 02/03/16) MEDICATIONS: Refer to [facility] REVIEW OF SYSTEMS: Constitutional: Obese. Head: No traumatic brain or head injury. Skin: No edema, or rash. Ear: No infection. Eyes: No vision loss or color blindness. Nose: No bleeding or purulent discharges. Hearing: No hearing decrease. Neck: No injury. Cardiac: HTN. Pulmonary: No COPD. GI: No GI ulcer, GI bleeding. Urinary/genital: No dysuria, incontinence, urinary retention. Endocrinologic: No cousin face, craniofacial dysmorphism, polydactyly. Skeletomuscular: Generalized weakness. Neurological: see HP. Psychiatric: Denies drug use/abuse. Otherwise, not [id number] review of systems. PHYSICAL EXAMINATION: General appearance is in subacute distress. HEENT: Normocephalic and nontraumatic. Eyes, nose, ears, and throat are unremarkable. Neck is supple. No lymphadenopathy. No crepitus. Cardiovascular: S1, S2, regular rate and rhythm. Pulmonary: Clear to auscultation bilaterally. Abdomen: Bowel sounds are positive. Extremities: No rash, lesions, or edema. No restriction of range of motion NEUROLOGICAL EXAMINATION: Drowsiness. Not oriented to time, but knew in the hospital and knew his . PERRL. EOMI. CN: no focal findings. Muscle tone: within normal. Muscle strength: 4+ DTR: 2 UE, 1-2 at knee. Plantar reflex: Flexor response bilaterally Gait: not examined in bed. Sensory exam: no abnormal findings. No acute cerebellar signs elicited. F-T-N test fine. Objective Objective Vital Signs Date Time Temp Pulse Resp B/P (MAP) Pulse Ox O2 Delivery O2 Flow Rate FiO2 08/31/18 12:16 98.2 81 20 159/88 (111) Venturi Mask 15.0 98.2 08/31/18 11:00 93 Intake and Output 08/31/18 07:00 Intake Total 413.6 ml Output Total 1400 ml Balance -986.4 ml Intake Oral 0 ml IV Total 413.6 ml Gastric Drainage Total 1400 ml Vitals Signs Vitals VS - Last 72 Hours, by Label Date Time Temp Pulse Resp B/P (MAP) Pulse Ox O2 Delivery O2 Flow Rate FiO2 08/31/18 12:16 98.2 81 20 159/88 (111) Venturi Mask 15.0 98.2 08/31/18 11:00 97.8 83 16 172/90 (117) 93 Nasal Cannula 15.0 97.8 08/31/18 08:00 Venturi Mask 15.0 08/31/18 07:00 98.6 84 22 137/86 (103) 95 Venturi Mask 15.0 98.6 08/31/18 03:25 98.9 84 20 158/79 (105) 95 Venturi Mask 98.9 08/30/18 23:52 98.2 90 22 100/73 (82) 93 Venturi Mask 98.2 08/30/18 20:00 Venturi Mask 15.0 08/30/18 19:50 97.8 78 22 139/79 (99) 93 Venturi Mask 97.8 08/30/18 17:27 98.1 68 28 137/80 (99) 94 Venturi Mask 98.1 08/30/18 16:00 Venturi Mask 15.0 08/30/18 16:00 77 33 134/77 (96) 96 Venturi Mask 08/30/18 15:00 97.7 75 34 140/71 (94) 100 Venturi Mask 97.7 08/30/18 14:00 74 34 135/86 (102) 100 Venturi Mask 08/30/18 13:00 72 35 151/82 (105) 97 Venturi Mask 08/30/18 12:34 98.4 68 32 153/82 (105) 97 Venturi Mask 98.4 08/30/18 12:00 Venturi Mask 08/30/18 11:00 73 37 145/74 (97) 96 Venturi Mask 08/30/18 10:00 72 30 154/77 (102) 93 Venturi Mask 08/30/18 09:19 94 Venturi Mask 08/30/18 09:07 69 32 132/62 (85) 94 Venturi Mask 08/30/18 08:16 73 37 132/62 (85) 95 Venturi Mask 08/30/18 07:56 Venturi Mask 15.0 08/30/18 07:00 98.0 72 31 145/69 (94) 95 Venturi Mask 98.0 Laboratory Laboratory Laboratory Tests Test 08/31/18 05:00 White Blood Count 11.3 x10^3/uL (4.0-11.0) Red Blood Count 3.07 x10^6/uL (4.30-5.70) Hemoglobin 9.0 g/dL (13.0-17.5) Hematocrit 26.2 % (39.0-53.0) Mean Corpuscular Volume 85 fL (79-100) Mean Corpuscular Hemoglobin 30 pg (25-35) Mean Corpuscular Hemoglobin Concent 35 g/dL (31-37) Red Cell Distribution Width 16.8 % (11.5-14.5) Platelet Count 73 x10^3/uL (140-400) Neutrophils (%) (Auto) 51 % (31-73) Lymphocytes (%) (Auto) 26 % (24-48) Monocytes (%) (Auto) 21 % (0-9) Eosinophils (%) (Auto) 2 % (0-3) Basophils (%) (Auto) 1 % (0-3) Neutrophils # (Auto) 5.7 x10^3uL (1.8-7.7) Lymphocytes # (Auto) 2.9 x10^3/uL (1.0-4.8) Monocytes # (Auto) 2.3 x10^3/uL (0.0-1.1) Eosinophils # (Auto) 0.2 x10^3/uL (0.0-0.7) Basophils # (Auto) 0.1 x10^3/uL (0.0-0.2) Sodium Level 138 mmol/L (136-145) Potassium Level 4.1 mmol/L (3.5-5.1) Chloride Level 101 mmol/L (98-107) Carbon Dioxide Level 26 mmol/L (21-32) Anion Gap 11 (6-14) Blood Urea Nitrogen 52 mg/dL (8-26) Creatinine 6.2 mg/dL (0.7-1.3) Estimated GFR (Cockcroft-Gault) 9.5 Glucose Level 152 mg/dL (70-99) Calcium Level 7.7 mg/dL (8.5-10.1) Phosphorus Level 3.4 mg/dL (2.6-4.7) Magnesium Level 3.0 mg/dL (1.8-2.4) Total Bilirubin 2.6 mg/dL (0.2-1.0) Direct Bilirubin 2.3 mg/dL (0.0-0.2) Aspartate Amino Transf (AST/SGOT) 215 U/L (15-37) Alanine Aminotransferase (ALT/SGPT) 74 U/L (16-63) Alkaline Phosphatase 298 U/L (46-116) Total Protein 5.9 g/dL (6.4-8.2) Albumin 2.2 g/dL (3.4-5.0) Triglycerides Level 474 mg/dL (0-150) Microbiology 08/26/18 Blood Culture - Final, Complete NO GROWTH AFTER 5 DAYS 08/29/18 CSF Gram Stain - Final, Complete 08/27/18 Stool Culture - Final, Resulted 08/27/18 Stool Culture Result 1 (LOTUS) - Final, Resulted 08/27/18 Campylobacter Antigen Assay - Preliminary, Resulted 08/27/18 Campylobactor Result 1 - Preliminary, Resulted 08/27/18 Shiga Toxin Test - Final, Resulted 08/25/18 Throat Culture - Final, Complete 08/25/18 - Final, Complete Medication Medications Current Medications Daptomycin 610 mg/ Sodium Chloride 50 ml @ 100 mls/hr Q48H IV ; Start 08/30/18 at 16:00; Stop 08/30/18 at 16:00; Status DC Haloperidol (Haldol) 2 mg PRN QID PRN PO AGITATION; Start 08/31/18 at 08:00; Stop 08/31/18 at 12:43; Status DC Haloperidol Lactate (HALDOL 2mg ORAL CONC) 2 mg PRN QID PRN PO AGITATION; Start 08/31/18 at 12:43 Ondansetron HCl (Zofran) 4 mg PRN Q6HRS PRN IV NAUSEA/VOMITING; Start 08/31/18 at 08:00 Sodium Chloride 90 meq/Potassium Chloride 50 meq/ Potassium Phosphate 3 mmol/ Magnesium Sulfate 10 meq/Calcium Gluconate 10 meq/ Multivitamins 10 ml/Chromium/ Copper/Manganese/ Seleni/Zn 1 ml/ Total Parenteral Nutrition/Amino Acids/Dextrose/ Fat Emulsion Intravenous 1,512 ml @ 63 mls/hr TPN CONT IV Last administered on 08/30/18at 21:40; Start 08/30/18 at 22:00; Stop 08/31/18 at 21:59 Sodium Chloride 90 meq/Potassium Chloride 50 meq/ Potassium Phosphate 5 mmol/ Magnesium Sulfate 3 meq/Calcium Gluconate 10 meq/ Multivitamins 10 ml/Chromium/ Copper/Manganese/ Seleni/Zn 1 ml/ Total Parenteral Nutrition/Amino Acids/Dextrose 1,512 ml @ 63 mls/hr TPN CONT IV ; Start 08/31/18 at 22:00; Stop 09/01/18 at 21:59 Comment Review of Relevant I have reviewed the following items gera (where applicable) has been applied. SOFIA ROBERSON MD August 31, 2018 14:44
[2018-08-31] MEDS: FAMOTIDINE 20 MG/2 ML VIAL IVP SCH (20:59)
[2018-08-31] MEDS ORDERED: TOTAL PARENTERAL NUTRITION IV SCH ×9 (22:00)
[2018-08-31] MEDS ORDERED: [UNRECOGNIZED DRUG - OTHER] IV SCH ×9 (22:00)
[2018-08-31] MEDS ORDERED: DEXTROSE 70% IV SCH ×9 (22:00)
[2018-08-31] MEDS ORDERED: AMINO ACID IV SCH ×9 (22:00)
--- NOTE | 2018-08-31 22:30 | NUR ---
Received shift report on pt and informed of pt being lethargic and sleepy. Pt also with elevated respirations noted on Venti-mask at 15L. Pt with O2 saturation 92%. Vitals within stable limits however temperature 100. Pt temp rechecked again during the noc and pt with temp decreased to 99.2 however pt with respirations that increased. in room during the time and states he was not breathing like that earlier. Assessed pt again and noted difficulty. Asked pt if he was having difficulty and pt nodded his head yes. Pt repositioned in bed and stat call to RT. Noted pt O2 saturations 62% however after elevating head of bed. O2 sats did increase to 82%. RT currently in room and changed pt to nonrebreather mask and only able to increase O2 to 82%, rapid response called and Physician notified of pt's current condition. Informed of pt needing to transfer to ICU, ABG and stat PCXR. Orders placed and implemented. Pt transferred down with ICU Charge and RT. Walked with down to ICU.
[2018-08-31 22:34] LABS: BASE EXCESS ABG -6 mmol/L (-3-3); HCO3 ABG 22 mmol/L (21-28); PCO2 ABG 55 mmHg (35-46); PO2 ABG 63 mmHg (75-108); SAT O2 ABG 85 % (92-99)
[2018-08-31] MEDS ORDERED: PROPOFOL 100 ML IV ONE (22:45)
--- NOTE | 2018-08-31 22:45 | NUR ---
Rapid Response Note: Rapid response called by patient's RN for increased respiratory response requiring increased O2 demand. Per RT patient was on venti mask but was not maintaining O2 sats so changed to 100% Non-rebreather but O2 sats continued to in mid 80's. DR Laboy notified at 2230 but patient' RN and order received to transfer patient to ICU. ABGs drawn but results are pending. Patient transferred to room 116 @ 2245, ABG resulted pH7.22, pCO2 55, pO2 63, HCO# 22, BE -6. DR Laboy on unit, notified of ABG results, orders received to intubate patient and notifiy Pulmonology of intubation. While waiting for WEATHERIZATION ADMINISTRATOR, patient's sats continued to be low 80's--respirations assisted with bag/valve/mask. Addendum: 09/01/18 at 0931 by LAURIE PEPPER RN Amended: Links added.
[2018-08-31] MEDS ORDERED: SUCCINYLCHOLINE 200 MG/10 ML VIAL. ONE (22:46)
[2018-08-31] MEDS ORDERED: ATROPINE 1 MG/10 ML DISP.SYRINGE. ONE (22:58)
--- NOTE | 2018-08-31 23:07 | PDOC ---
PROGRESS NOTES Chief Complaint Chief Complaint IMPRESSION s/p septic shock - t.o ICU 08/31/18 PM tick bite LLE cellulitis, better RADHA with anuria - NEW HD - MEt encephalopathy in the background of septic shock Dysphagia in the background of septic shock-on TPN High gastric residuals-cannot do tube feeds Obesity BMI 34 normocytic anemia, leukocytosis POSSIBLE ENCEPHALITIS CODED IN ICU 11 PM 57 MIN CC TIME History of Present Illness History of Present Illness transferred out of ICU 08/30/18 status post septic shock ID on board on Doxy, dapto, acyclovir Cannot due TFs as there is still high residuals via Dobbhoff-800 mL blackish drainage TPN running via right central line IJ WBC 11, no fevers, hemoglobin 9 Off BiPAP but needed this in ICU Significant other at bedside Lives with 5 members of the family at home [employer] Was exposed to ticks Creatinine 6, anuric, PLAN: avoid nephrotoxins On temporary dialysis per renal for now For MRI of the head, status post LP-ordered by ID/neuro Continue TPN, hold off any tube feeds Continue Dobbhoff Discussed with significant other and RN at bedside follow Labs cultures Tick borne illness suspected. I d/w Dr Luajn. Improving. Per ID: d/c dapto and cont doxycycline. d/c meropenem, add acyclovir Vitals Vitals Vital Signs Date Time Temp Pulse Resp B/P (MAP) Pulse Ox O2 Delivery O2 Flow Rate FiO2 08/31/18 19:06 100.0 90 22 179/89 (119) 92 Nasal Cannula 15.0 100.0 Physical Exam Physical Exam GENERAL: awake on bipap HEENT: Pupils equally round, reactive. Normal conjunctivae. Oral cavity: Pharynx pink, dry. NECK: Supple. LUNGS: Clear to auscultation. HEART: S1 and S2. ABDOMEN: Obese, soft, nontender with bowel sounds present. EXTREMITIES: No gross edema or cyanosis. SKIN: Warm without rash. Left knee has several scabs/scarring. NEUROLOGIC: Alert and oriented, fluctuating MS General: Cooperative, No acute distress, moderate distress Heart: Regular rate, Normal S1, Normal S2 Lungs: Crackles Abdomen: Soft, Other (slightly distended) Extremities: No clubbing, No cyanosis, No edema Skin: No significant lesion, Other (healing rash and excoriations on Left lower extremity. No obvious petechiae) Labs LABS SPEC #: [id number] ADRIANNE: 08/27/18 STATUS: RES REQ #: [id number] RECD: 08/27/[address] [facility] [address]: KAVYA CARPENTER DO SOURCE: STOOL ENTR: 08/25/[address] [facility] [address]: MERT GALEAS MD [facility]: KELBY LUJAN MD UNKNOWN PCP NAME ORDERED: STOOL CULT Procedure Result STOOL CULTURE Final Final report STOOL CULT RES 1 Final Comment No Salmonella or Shigella recovered. CAMPY Preliminary Preliminary report CAMPY RES 1 Preliminary Comment No Campylobacter species isolated. SHIGA TOXIN Final Negative Performed at: - [facility] [id number] [facility] [address], [place], [place] [id number] Circular Distributor: CANDIDA Ramírez MD, Phone: [phone] MRI of the brain without contrast 08/31/2018 Clinical History: Altered mental status. Mental status changes. Encephalopathy. Technique: Unenhanced T1-weighted sagittal and axial, T2-weighted axial and coronal and FLAIR, gradient echo and diffusion-weighted axial images of the brain were obtained. Findings: Comparison is made to the patient's CT scan of the head dated 08/29/2018. Images from the study are degraded patient motion. The ventricles and sulci are within normal limits in size and configuration. No definite area of significant area of abnormal signal intensity is seen involving the brain parenchyma. No extra-axial fluid collection is seen. There is no MRI evidence of acute ischemia/infarction. Mild mucosal thickening is seen scattered throughout the paranasal sinuses. There are small to moderate-sized bilateral mastoid effusions. Normal flow voids are seen within the major vascular structures surrounding the brain parenchyma. IMPRESSION: No acute parenchymal abnormality is seen. Electronically signed by: Jcarlos Thompson MD (08/31/2018 12:13 PM) [id number] MIGUEL A LAST MD,KRISSY ROBERSON,SOFIA DENNIS,ANISH LEDESMA,KAVYA Ceballos MD UNKNOWN PCP NAME ORDERED: AEROBIC CULT GS Procedure Result AEROBIC CULTURE Preliminary Preliminary report AEROBIC RES 1 Preliminary Comment No growth in 36 - 48 hours. Performed at: DA - [facility] [address], [place], [place] [id number] Circular Distributor: CANDIDA Ramírez MD, Phone: [phone] GRAM STAIN Final Final report GRAM STAIN RESULT 1 Final Comment No white blood cells seen. GRAM STAIN RESULT 2 Final No organisms seen Laboratory Tests Test 08/31/18 05:00 08/31/18 17:45 White Blood Count 11.3 x10^3/uL (4.0-11.0) Red Blood Count 3.07 x10^6/uL (4.30-5.70) Hemoglobin 9.0 g/dL (13.0-17.5) Hematocrit 26.2 % (39.0-53.0) Mean Corpuscular Volume 85 fL (79-100) Mean Corpuscular Hemoglobin 30 pg (25-35) Mean Corpuscular Hemoglobin Concent 35 g/dL (31-37) Red Cell Distribution Width 16.8 % (11.5-14.5) Platelet Count 73 x10^3/uL (140-400) Neutrophils (%) (Auto) 51 % (31-73) Lymphocytes (%) (Auto) 26 % (24-48) Monocytes (%) (Auto) 21 % (0-9) Eosinophils (%) (Auto) 2 % (0-3) Basophils (%) (Auto) 1 % (0-3) Neutrophils # (Auto) 5.7 x10^3uL (1.8-7.7) Lymphocytes # (Auto) 2.9 x10^3/uL (1.0-4.8) Monocytes # (Auto) 2.3 x10^3/uL (0.0-1.1) Eosinophils # (Auto) 0.2 x10^3/uL (0.0-0.7) Basophils # (Auto) 0.1 x10^3/uL (0.0-0.2) Sodium Level 138 mmol/L (136-145) Potassium Level 4.1 mmol/L (3.5-5.1) Chloride Level 101 mmol/L (98-107) Carbon Dioxide Level 26 mmol/L (21-32) Anion Gap 11 (6-14) Blood Urea Nitrogen 52 mg/dL (8-26) Creatinine 6.2 mg/dL (0.7-1.3) Estimated GFR (Cockcroft-Gault) 9.5 Glucose Level 152 mg/dL (70-99) Calcium Level 7.7 mg/dL (8.5-10.1) Phosphorus Level 3.4 mg/dL (2.6-4.7) Magnesium Level 3.0 mg/dL (1.8-2.4) Total Bilirubin 2.6 mg/dL (0.2-1.0) Direct Bilirubin 2.3 mg/dL (0.0-0.2) Aspartate Amino Transf (AST/SGOT) 215 U/L (15-37) Alanine Aminotransferase (ALT/SGPT) 74 U/L (16-63) Alkaline Phosphatase 298 U/L (46-116) Total Protein 5.9 g/dL (6.4-8.2) Albumin 2.2 g/dL (3.4-5.0) Triglycerides Level 474 mg/dL (0-150) Glucose (Fingerstick) 151 mg/dL (70-99) Assessment and Plan Assessmemt and Plan Problems Medical Problems: (1) Acute renal failure Status: Acute Past Medical History KIKI Hemochromatosis HTN Cardiovascular: HTN Pulmonary: No pertinent hx GI: No pertinent hx Heme/Onc: Hemochromatosis Hepatobiliary: No pertinent hx Family History His father had with hemochromatosis, of inoperable brain tumor Social History Lives at home with and three sons. 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 He denies any etoh, drugs and smoking Allergies Coded Allergies: aspirin (Verified Allergy, Intermediate, 02/03/16) pentazocine (Verified Allergy, Intermediate, 02/03/16) MEDICATIONS: Refer to MAR Comment Review of Relevant I have reviewed the following items gera (where applicable) has been applied. Labs Laboratory Tests Test 08/30/18 05:30 08/30/18 05:35 08/31/18 05:00 08/31/18 17:45 White Blood Count 13.0 x10^3/uL (4.0-11.0) 11.3 x10^3/uL (4.0-11.0) Red Blood Count 2.92 x10^6/uL (4.30-5.70) 3.07 x10^6/uL (4.30-5.70) Hemoglobin 8.4 g/dL (13.0-17.5) 9.0 g/dL (13.0-17.5) Hematocrit 24.7 % (39.0-53.0) 26.2 % (39.0-53.0) Mean Corpuscular Volume 84 fL (79-100) 85 fL (79-100) Mean Corpuscular Hemoglobin 29 pg (25-35) 30 pg (25-35) Mean Corpuscular Hemoglobin Concent 34 g/dL (31-37) 35 g/dL (31-37) Red Cell Distribution Width 16.5 % (11.5-14.5) 16.8 % (11.5-14.5) Platelet Count 67 x10^3/uL (140-400) 73 x10^3/uL (140-400) Neutrophils (%) (Auto) 54 % (31-73) 51 % (31-73) Lymphocytes (%) (Auto) 29 % (24-48) 26 % (24-48) Monocytes (%) (Auto) 14 % (0-9) 21 % (0-9) Eosinophils (%) (Auto) 1 % (0-3) 2 % (0-3) Basophils (%) (Auto) 1 % (0-3) 1 % (0-3) Neutrophils # (Auto) 7.1 x10^3uL (1.8-7.7) 5.7 x10^3uL (1.8-7.7) Lymphocytes # (Auto) 3.8 x10^3/uL (1.0-4.8) 2.9 x10^3/uL (1.0-4.8) Monocytes # (Auto) 1.9 x10^3/uL (0.0-1.1) 2.3 x10^3/uL (0.0-1.1) Eosinophils # (Auto) 0.1 x10^3/uL (0.0-0.7) 0.2 x10^3/uL (0.0-0.7) Basophils # (Auto) 0.1 x10^3/uL (0.0-0.2) 0.1 x10^3/uL (0.0-0.2) Sodium Level 140 mmol/L (136-145) 138 mmol/L (136-145) Potassium Level 3.7 mmol/L (3.5-5.1) 4.1 mmol/L (3.5-5.1) Chloride Level 95 mmol/L (98-107) 101 mmol/L (98-107) Carbon Dioxide Level 31 mmol/L (21-32) 26 mmol/L (21-32) Anion Gap 14 (6-14) 11 (6-14) Blood Urea Nitrogen 88 mg/dL (8-26) 52 mg/dL (8-26) Creatinine 7.9 mg/dL (0.7-1.3) 6.2 mg/dL (0.7-1.3) Estimated GFR (Cockcroft-Gault) 7.2 9.5 Glucose Level 110 mg/dL (70-99) 152 mg/dL (70-99) Calcium Level 7.1 mg/dL (8.5-10.1) 7.7 mg/dL (8.5-10.1) Phosphorus Level 5.0 mg/dL (2.6-4.7) 3.4 mg/dL (2.6-4.7) Albumin 2.2 g/dL (3.4-5.0) 2.2 g/dL (3.4-5.0) 2.2 g/dL (3.4-5.0) Total Bilirubin 4.1 mg/dL (0.2-1.0) 2.6 mg/dL (0.2-1.0) Direct Bilirubin 3.7 mg/dL (0.0-0.2) 2.3 mg/dL (0.0-0.2) Aspartate Amino Transf (AST/SGOT) 328 U/L (15-37) 215 U/L (15-37) Alanine Aminotransferase (ALT/SGPT) 93 U/L (16-63) 74 U/L (16-63) Alkaline Phosphatase 309 U/L (46-116) 298 U/L (46-116) Total Protein 5.6 g/dL (6.4-8.2) 5.9 g/dL (6.4-8.2) Magnesium Level 3.0 mg/dL (1.8-2.4) Triglycerides Level 474 mg/dL (0-150) Glucose (Fingerstick) 151 mg/dL (70-99) Laboratory Tests Test 08/31/18 05:00 08/31/18 17:45 White Blood Count 11.3 x10^3/uL (4.0-11.0) Red Blood Count 3.07 x10^6/uL (4.30-5.70) Hemoglobin 9.0 g/dL (13.0-17.5) Hematocrit 26.2 % (39.0-53.0) Mean Corpuscular Volume 85 fL (79-100) Mean Corpuscular Hemoglobin 30 pg (25-35) Mean Corpuscular Hemoglobin Concent 35 g/dL (31-37) Red Cell Distribution Width 16.8 % (11.5-14.5) Platelet Count 73 x10^3/uL (140-400) Neutrophils (%) (Auto) 51 % (31-73) Lymphocytes (%) (Auto) 26 % (24-48) Monocytes (%) (Auto) 21 % (0-9) Eosinophils (%) (Auto) 2 % (0-3) Basophils (%) (Auto) 1 % (0-3) Neutrophils # (Auto) 5.7 x10^3uL (1.8-7.7) Lymphocytes # (Auto) 2.9 x10^3/uL (1.0-4.8) Monocytes # (Auto) 2.3 x10^3/uL (0.0-1.1) Eosinophils # (Auto) 0.2 x10^3/uL (0.0-0.7) Basophils # (Auto) 0.1 x10^3/uL (0.0-0.2) Sodium Level 138 mmol/L (136-145) Potassium Level 4.1 mmol/L (3.5-5.1) Chloride Level 101 mmol/L (98-107) Carbon Dioxide Level 26 mmol/L (21-32) Anion Gap 11 (6-14) Blood Urea Nitrogen 52 mg/dL (8-26) Creatinine 6.2 mg/dL (0.7-1.3) Estimated GFR (Cockcroft-Gault) 9.5 Glucose Level 152 mg/dL (70-99) Calcium Level 7.7 mg/dL (8.5-10.1) Phosphorus Level 3.4 mg/dL (2.6-4.7) Magnesium Level 3.0 mg/dL (1.8-2.4) Total Bilirubin 2.6 mg/dL (0.2-1.0) Direct Bilirubin 2.3 mg/dL (0.0-0.2) Aspartate Amino Transf (AST/SGOT) 215 U/L (15-37) Alanine Aminotransferase (ALT/SGPT) 74 U/L (16-63) Alkaline Phosphatase 298 U/L (46-116) Total Protein 5.9 g/dL (6.4-8.2) Albumin 2.2 g/dL (3.4-5.0) Triglycerides Level 474 mg/dL (0-150) Glucose (Fingerstick) 151 mg/dL (70-99) Microbiology 08/26/18 Blood Culture - Final, Complete NO GROWTH AFTER 5 DAYS 08/29/18 CSF Gram Stain - Final, Complete 08/27/18 Stool Culture - Final, Resulted 08/27/18 Stool Culture Result 1 (LOTUS) - Final, Resulted 08/27/18 Campylobacter Antigen Assay - Preliminary, Resulted 08/27/18 Campylobactor Result 1 - Preliminary, Resulted 08/27/18 Shiga Toxin Test - Final, Resulted 08/25/18 Throat Culture - Final, Complete 08/25/18 - Final, Complete Medications Current Medications Sodium Chloride 1,000 ml @ 1,000 mls/hr 1X ONCE IV Last administered on 08/25/18at 20:38; Start 08/25/18 at 19:15; Stop 08/25/18 at 20:14; Status DC Ibuprofen (Motrin) 600 mg 1X ONCE PO Last administered on 08/25/18at 20:38; Start 08/25/18 at 19:45; Stop 08/25/18 at 19:49; Status DC Sodium Chloride 1,000 ml @ 1,000 mls/hr 1X ONCE IV Last administered on 08/25/18at 20:30; Start 08/25/18 at 20:30; Stop 08/25/18 at 21:29; Status DC Ceftriaxone Sodium (Rocephin) 1 gm 1X ONCE IVP Last administered on 08/25/18at 20:36; Start 08/25/18 at 20:30; Stop 08/25/18 at 20:31; Status DC Vancomycin HCl 2 gm/Sodium Chloride 500 ml @ 250 mls/hr 1X ONCE IV Last administered on 08/25/18at 23:10; Start 08/25/18 at 21:30; Stop 08/25/18 at 23:29; Status DC Sodium Chloride 1,000 ml @ 1,000 mls/hr 1X ONCE IV Last administered on 08/25/18at 23:51; Start 08/25/18 at 21:00; Stop 08/25/18 at 21:59; Status DC Piperacillin Sod/ Tazobactam Sod 4.5 gm/Sodium Chloride 100 ml @ 200 mls/hr 1X ONCE IV ; Start 08/25/18 at 21:15; Stop 08/25/18 at 21:44; Status DC Aztreonam (Azactam) 2 gm 1X ONCE IVP Last administered on 08/25/18at 21:15; Start 08/25/18 at 21:15; Stop 08/25/18 at 21:16; Status DC Magnesium Sulfate 50 ml @ 25 mls/hr 1X ONCE IV Last administered on 08/25/18at 23:51; Start 08/25/18 at 21:15; Stop 08/25/18 at 23:14; Status DC Ondansetron HCl (Zofran) 4 mg PRN Q8HRS PRN IV NAUSEA/VOMITING; Start 08/25/18 at 21:15; Stop 08/26/18 at 21:14; Status DC Acetaminophen (Tylenol) 650 mg PRN Q4HRS PRN PO FEVER; Start 08/25/18 at 21:15; Stop 08/26/18 at 21:14; Status DC Sodium Chloride 1,000 ml @ 125 mls/hr 1X ONCE IV Last administered on at 23:09; Start 08/25/18 at 21:15; Stop 08/26/18 at 05:14; Status DC Daptomycin 610 mg/ Sodium Chloride 50 ml @ 100 mls/hr QODAY IV Last administered on 08/27/18at 08:59; Start 08/27/18 at 09:00; Stop 08/28/18 at 15:40; Status DC Meropenem 500 mg/ Sodium Chloride 50 ml @ 100 mls/hr 1X ONCE IV Last administered on 08/25/18at 22:12; Start 08/25/18 at 22:00; Stop 08/25/18 at 22 :29; Status DC Doxycycline Hyclate 100 mg/ Dextrose 100 ml @ 50 mls/hr Q12HR IV Last administered on 08/31/18at 20:58; Start 08/26/18 at 09:00 Meropenem 500 mg/ Sodium Chloride 50 ml @ 100 mls/hr DAILY IV Last administered on 08/29/18at 10:13; Start 08/26/18 at 09:00; Stop 08/30/18 at 08:17; Status DC Sodium Chloride (Normal Saline Flush) 10 ml QSHIFT PRN IV AFTER MEDS AND BLOOD DRAWS; Start 08/26/18 at 09:15 Norepinephrine Bitartrate 250 ml @ 0 mls/hr CONT PRN IV PER PROTOCOL Last administered on 08/27/18at 10:21; Start 08/26/18 at 09:15; Stop 08/30/18 at 17:20; Status DC Famotidine (Pepcid) 20 mg DAILY PO Last administered on 08/27/18at 08:14; Start 08/26/18 at 12:00; Stop 08/27/18 at 14:36; Status DC Sodium Chloride 1,000 ml @ 1,000 mls/hr Q1H PRN IV hypotension; Start 08/26/18 at 11:51; Stop 08/26/18 at 17:50; Status DC Sodium Chloride (Normal Saline Flush) 10 ml 1X PRN PRN IV AP catheter pack; Start 08/26/18 at 12:00; Stop 08/27/18 at 11:59; Status DC Sodium Chloride (Normal Saline Flush) 10 ml 1X PRN PRN IV SQE catheter pack; Start 08/26/18 at 12:00; Stop 08/27/18 at 11:59; Status DC Sodium Chloride 1,000 ml @ 400 mls/hr Q2H30M PRN IV PATENCY; Start 08/26/18 at 11:51; Stop 08/26/18 at 23:50; Status DC Info (PHARMACY MONITORING -- do not chart) 1 each PRN DAILY PRN MC SEE COMMENTS; Start 08/26/18 at 12:00; Status UNV Info (PHARMACY MONITORING -- do not chart) 1 each PRN DAILY PRN MC SEE COMMENTS; Start 08/26/18 at 12:00 Lidocaine/Sodium Bicarbonate (Buffered Lidocaine 1%) 4 ml 1X ONCE INJ Last administered on 08/26/18at 12:45; Start 08/26/18 at 12:45; Stop 08/26/18 at 12:48; Status DC Heparin Sodium (Porcine) (Heparin Sodium) 2,500 unit 1X ONCE INT CAT Last administered on 08/26/18at 12:45; Start 08/26/18 at 12:45; Stop 08/26/18 at 12:48 ; Status DC Lidocaine/Sodium Bicarbonate (Buffered Lidocaine 1%) 3 ml STK-MED ONCE .ROUTE ; Start 08/26/18 at 12:49; Stop 08/26/18 at 12:50; Status DC Heparin Sodium (Porcine) (Heparin Sodium) 10,000 unit STK-MED ONCE .ROUTE ; Start 08/26/18 at 12:49; Stop 08/26/18 at 12:50; Status DC Lactobacillus Rhamnosus (Culturelle) 1 cap BID PO Last administered on 08/31/18at 21:00; Start 08/26/18 at 21:00 Acetaminophen (Tylenol) 325 mg STK-MED ONCE PO ; Start 08/27/18 at 00:43; Stop 08/27/18 at 00:44; Status DC Sodium Chloride 1,000 ml @ 1,000 mls/hr 1X ONCE IV Last administered on 08/27/18at 11:05; Start 08/27/18 at 10:30; Stop 08/27/18 at 11:29; Status DC Sodium Chloride 1,000 ml @ 1,000 mls/hr Q1H PRN IV hypotension; Start 08/27/18 at 11:28; Stop 08/27/18 at 17:27; Status DC Albumin Human 200 ml @ 200 mls/hr 1X PRN PRN IV Hypotension; Start 08/27/18 at 11:30; Stop 08/27/18 at 17:29; Status DC Sodium Chloride (Normal Saline Flush) 10 ml 1X PRN PRN IV AP catheter pack; Start 08/27/18 at 11:30; Stop 08/28/18 at 11:29; Status DC Sodium Chloride (Normal Saline Flush) 10 ml 1X PRN PRN IV SQE catheter pack; Start 08/27/18 at 11:30; Stop 08/28/18 at 11:29; Status DC Sodium Chloride 1,000 ml @ 400 mls/hr Q2H30M PRN IV PATENCY; Start 08/27/18 at 11:28; Stop 08/27/18 at 23:27; Status DC Info (PHARMACY MONITORING -- do not chart) 1 each PRN DAILY PRN MC SEE COMMENTS; Start 08/27/18 at 11:30; Status UNV Info (PHARMACY MONITORING -- do not chart) 1 each PRN DAILY PRN MC SEE COMMENTS; Start 08/27/18 at 11:30; Status UNV Famotidine (Pepcid) 20 mg Q48H PO ; Start 08/29/18 at 09:00; Stop 08/29/18 at 11:29; Status DC Acetaminophen (Tylenol) 650 mg PRN Q6HRS PRN PO pain/fever; Start 08/27/18 at 21:15 Acetaminophen (Tylenol Supp) 650 mg PRN Q6HRS PRN OH MILD PAIN / TEMP Last administered on 08/27/18at 21:25; Start 08/27/18 at 21:15 Fentanyl Citrate (Fentanyl 2ml Vial) 25 mcg 1X ONCE IV Last administered on 08/28/18at 08:54; Start 08/28/18 at 08:45; Stop 08/28/18 at 08:47; Status DC Lidocaine/Sodium Bicarbonate (Buffered Lidocaine 1%) 3 ml STK-MED ONCE .ROUTE ; Start 08/28/18 at 09:55; Stop 08/28/18 at 09:56; Status DC Lidocaine HCl (Glydo (Lidocaine) Jelly) 1 meng 1X STAT MM Last administered on 08/28/18at 10:16; Start 08/28/18 at 10:16; Stop 08/28/18 at 10:19; Status DC Benzocaine (Hurricaine One) 1 spray 1X STAT MM Last administered on 08/28/18at 10:16; Start 08/28/18 at 10:16; Stop 08/28/18 at 10:19; Status DC Lidocaine/Sodium Bicarbonate (Buffered Lidocaine 1%) 3 ml 1X ONCE INJ ; Start 08/28/18 at 10:30; Stop 08/28/18 at 10:31; Status DC Haloperidol Lactate (Haldol Inj) 5 mg PRN Q6HRS PRN IVP AGITATION Last administered on 08/29/18at 20:31; Start 08/28/18 at 12:00 Fentanyl Citrate (Fentanyl 2ml Vial) 50 mcg PRN Q4HRS PRN IV PAIN Last administered on 08/28/18at 21:44; Start 08/28/18 at 15:30 Sodium Chloride 1,000 ml @ 1,000 mls/hr Q1H PRN IV hypotension; Start 08/28/18 at 14:00; Stop 08/28/18 at 19:59; Status DC Albumin Human 200 ml @ 200 mls/hr 1X PRN PRN IV Hypotension Last administered on 08/28/18at 14:50; Start 08/28/18 at 14:00 Sodium Chloride 1,000 ml @ 400 mls/hr Q2H30M PRN IV PATENCY; Start 08/28/18 at 14:00; Stop 08/29/18 at 01:59; Status DC Info (PHARMACY MONITORING -- do not chart) 1 each PRN DAILY PRN MC SEE COMMENTS; Start 08/28/18 at 15:30; Status UNV Info (PHARMACY MONITORING -- do not chart) 1 each PRN DAILY PRN MC SEE COMMENTS; Start 08/28/18 at 15:30; Status UNV Daptomycin 610 mg/ Sodium Chloride 50 ml @ 100 mls/hr Q48H IV ; Start 08/30/18 at 16:00; Stop 08/30/18 at 16:00; Status DC Famotidine (Pepcid Vial) 20 mg QHS IVP Last administered on 08/31/18at 20:59; Start 08/29/18 at 21:00 Acyclovir Sodium 340 mg/Dextrose 106.8 ml @ 106.8 mls/ hr Q12HR IV Last administered on 08/31/18at 20:58; Start 08/30/18 at 09:00 Sodium Chloride 1,000 ml @ 1,000 mls/hr Q1H PRN IV hypotension; Start 08/30/18 at 11:02; Stop 08/30/18 at 17:01; Status DC Sodium Chloride 1,000 ml @ 400 mls/hr Q2H30M PRN IV PATENCY; Start 08/30/18 at 11:02; Stop 08/30/18 at 23:01; Status DC Info (PHARMACY MONITORING -- do not chart) 1 each PRN DAILY PRN MC SEE COMMENTS; Start 08/30/18 at 11:15; Status UNV Info (PHARMACY MONITORING -- do not chart) 1 each PRN DAILY PRN MC SEE COMMENTS; Start 08/30/18 at 11:15; Status UNV Info (Tpn Per Pharmacy) 1 each PRN DAILY PRN MC SEE COMMENTS Last administered on 08/31/18at 14:06; Start 08/30/18 at 12:45 Sodium Chloride 90 meq/Potassium Chloride 50 meq/ Potassium Phosphate 3 mmol/ Magnesium Sulfate 10 meq/Calcium Gluconate 10 meq/ Multivitamins 10 ml/Chromium/ Copper/Manganese/ Seleni/Zn 1 ml/ Total Parenteral Nutrition/Amino Acids/Dextrose/ Fat Emulsion Intravenous 1,512 ml @ 63 mls/hr TPN CONT IV Last administered on 08/30/18at 21:40; Start 08/30/18 at 22:00; Stop 08/31/18 at 21:59; Status DC Ondansetron HCl (Zofran) 4 mg PRN Q6HRS PRN IV NAUSEA/VOMITING; Start 08/31/18 at 08:00 Haloperidol (Haldol) 2 mg PRN QID PRN PO AGITATION; Start 08/31/18 at 08:00; Stop 08/31/18 at 12:43; Status DC Haloperidol Lactate (HALDOL 2mg ORAL CONC) 2 mg PRN QID PRN PO AGITATION; Start 08/31/18 at 12:43 Sodium Chloride 90 meq/Potassium Chloride 50 meq/ Potassium Phosphate 5 mmol/ Magnesium Sulfate 3 meq/Calcium Gluconate 10 meq/ Multivitamins 10 ml/Chromium/ Copper/Manganese/ Seleni/Zn 1 ml/ Total Parenteral Nutrition/Amino Acids/Dextrose 1,512 ml @ 63 mls/hr TPN CONT IV Last administered on 08/31/18at 20:59; Start 08/31/18 at 22:00; Stop 09/01/18 at 21:59 Propofol 100 ml @ As Directed STK-MED ONCE IV ; Start 08/31/18 at 22:45; Stop 08/31/18 at 22:46; Status DC Succinylcholine Chloride (Anectine) 200 mg STK-MED ONCE .ROUTE ; Start 08/31/18 at 22:46; Stop 08/31/18 at 22:47; Status DC Atropine Sulfate (ATROPINE 1mg SYRINGE) 1 mg STK-MED ONCE .ROUTE ; Start 08/31/18 at 22:58; Stop 08/31/18 at 22:59; Status DC Active Scripts Active Potassium Chloride 20 Meq Tablet.er 20 Meq PO DAILY Orphenadrine Citrate 100 Mg Tablet.er 100 Mg PO Q12HR Anaprox Ds (Naproxen Sodium) 550 Mg Tablet 550 Mg PO Q12HR Reported Prednisone 20 Mg Tablet 1 Tab PO DAILY Hydrochlorothiazide Tablet (Hydrochlorothiazide) 12.5 Mg Tablet 12.5 Mg PO DAILY Shilpi Allergy (Fexofenadine Hcl) 180 Mg Tablet 1 Tab PO DAILY Vitals/I & O Vital Sign - Last 24 Hours 08/30/18 08/31/18 08/31/18 08/31/18 23:52 03:25 07:00 08:00 Temp 98.2 98.9 98.6 98.2 98.9 98.6 Pulse 90 84 84 Resp 22 20 22 B/P (MAP) 100/73 (82) 158/79 (105) 137/86 (103) Pulse Ox 93 95 95 O2 Delivery Venturi Mask Venturi Mask Venturi Mask Venturi Mask O2 Flow Rate 15.0 15.0 08/31/18 08/31/18 08/31/18 08/31/18 11:00 12:16 15:00 15:00 Temp 97.8 98.2 97.9 98.2 97.8 98.2 97.9 98.2 Pulse 83 81 88 89 Resp 16 20 18 20 B/P (MAP) 172/90 (117) 159/88 (111) 117/70 (86) 149/59 (89) Pulse Ox 93 94 90 O2 Delivery Nasal Cannula Venturi Mask Room Air Room Air O2 Flow Rate 15.0 15.0 08/31/18 19:06 Temp 100.0 100.0 Pulse 90 Resp 22 B/P (MAP) 179/89 (119) Pulse Ox 92 O2 Delivery Nasal Cannula O2 Flow Rate 15.0 Intake and Output 08/30/18 08/30/18 08/31/18 15:00 23:00 07:00 Intake Total 100 ml 213.6 ml 100 ml Output Total 800 ml 600 ml Balance 100 ml -586.4 ml -500 ml EVGENY PARKER MD August 31, 2018 23:07
[2018-08-31 23:34] LABS: FIO2 ABG 100
[2018-09-01] VITALS (24 sets, daily range): BP systolic 95–165; BP diastolic 50–91
[2018-09-01] MEDS ORDERED: MIDAZOLAM 100mg/100ml NS BAG 100 ML IV PRN
--- NOTE | 2018-09-01 00:09 | RAD ---
AP chest. HISTORY: Post code AP view was taken of the chest. Endotracheal tube is in good position. NG tube extends into the stomach. There is a dialysis catheter on the right. There is a central line on the right. There is right perihilar pulmonary edema. There is no pneumothorax or pleural effusion. IMPRESSION: 1. Mild perihilar pulmonary edema. 2. Endotracheal tube in good position. 3. Other tubes and lines unchanged. Electronically signed by: Leonidas Westfall MD (09/01/2018 12:06 AM) [id number]
[2018-09-01] MEDS: PROPOFOL 100 ML IV PRN ×3 (00:15→22:02)
[2018-09-01 00:31] LABS: BASE EXCESS ABG -4 mmol/L (-3-3); HCO3 ABG 23 mmol/L (21-28); PCO2 ABG 47 mmHg (35-46); PO2 ABG 182 mmHg (75-108); SAT O2 ABG 98 % (92-99)
[2018-09-01 00:32] LABS: FIO2 ABG 100
--- NOTE | 2018-09-01 00:50 | NUR ---
While waiting to intubate patient, at 2258, patient's HR dropped to 44 BPM. Atropine 1MG IVP was given but before full dose was administered, rhythm changed to asystole and Code Blue called--see code blue sheet. Patient intubated at [address] Denis, ED MD with 7.5 ETT, 24 at the right lip with equal breath sounds bilat, nothing heard over the stomach, and CO2 +color change; Vent settings AC 18, TV 550, FiO2 100%, Peep5. Portable CXR completed and read at 0006--ETT placed in good position. Propofol started at 5MCG/KG/MIN for sedation, will titrate as needed for RASS score 2-4. Post intubation ABGs at 0010 Ph 7.3, pCO@ 47, pO2 182, HCO3 23, BE -4, Dr Jesus bloom. Dr Lee returned page, notified of transfer, intubation, ABGs, and Vent changes per RT increased TV 600 and decrease FiO2 80%. Orders received keep changed vent settings but titrate FiO2 to maintain O2 saturation of >/= 94%, obtain sputum for culture and gram stain, start Duoneb tx QID, give tx now, and repeat ABG's later this am. See order, ABGs, CXR results.
[2018-09-01] MEDS ORDERED: IPRATRPIUM/ALBUTEROL 0.5/2.5MG 3 ML NEBU. NEB ONE (01:00)
[2018-09-01] MEDS ORDERED: SUCCINYLCHOLINE 200 MG/10 ML VIAL. IV ONE (01:15)
--- NOTE | 2018-09-01 06:31 | PDOC ---
PULMONARY PROGRESS NOTES Subjective intubated around midnight, difficult intubation, mod secretion, on propofol, on tpn. Vitals Vital Signs Date Time Temp Pulse Resp B/P (MAP) Pulse Ox O2 Delivery O2 Flow Rate FiO2 09/01/18 04:30 96 Ventilator 08/31/18 20:00 15.0 08/31/18 19:06 100.0 90 22 179/89 (119) 100.0 Comments ros as mentioned as above discussed w rn, other sys otherwise neg on vent sedated HEENT: Other (nc at perrl nose clear orally intubated neck no lad no thyromegaly) Lungs: Crackles Cardiovascular: S1, S2 Abdomen: Soft, Non-tender, Other (no mass) Extremities: No Edema Skin: Warm Labs Laboratory Tests Test 08/31/18 05:00 08/31/18 17:45 08/31/18 22:30 09/01/18 00:10 White Blood Count 11.3 x10^3/uL (4.0-11.0) Red Blood Count 3.07 x10^6/uL (4.30-5.70) Hemoglobin 9.0 g/dL (13.0-17.5) Hematocrit 26.2 % (39.0-53.0) Mean Corpuscular Volume 85 fL (79-100) Mean Corpuscular Hemoglobin 30 pg (25-35) Mean Corpuscular Hemoglobin Concent 35 g/dL (31-37) Red Cell Distribution Width 16.8 % (11.5-14.5) Platelet Count 73 x10^3/uL (140-400) Neutrophils (%) (Auto) 51 % (31-73) Lymphocytes (%) (Auto) 26 % (24-48) Monocytes (%) (Auto) 21 % (0-9) Eosinophils (%) (Auto) 2 % (0-3) Basophils (%) (Auto) 1 % (0-3) Neutrophils # (Auto) 5.7 x10^3uL (1.8-7.7) Lymphocytes # (Auto) 2.9 x10^3/uL (1.0-4.8) Monocytes # (Auto) 2.3 x10^3/uL (0.0-1.1) Eosinophils # (Auto) 0.2 x10^3/uL (0.0-0.7) Basophils # (Auto) 0.1 x10^3/uL (0.0-0.2) Sodium Level 138 mmol/L (136-145) Potassium Level 4.1 mmol/L (3.5-5.1) Chloride Level 101 mmol/L (98-107) Carbon Dioxide Level 26 mmol/L (21-32) Anion Gap 11 (6-14) Blood Urea Nitrogen 52 mg/dL (8-26) Creatinine 6.2 mg/dL (0.7-1.3) Estimated GFR (Cockcroft-Gault) 9.5 Glucose Level 152 mg/dL (70-99) Calcium Level 7.7 mg/dL (8.5-10.1) Phosphorus Level 3.4 mg/dL (2.6-4.7) Magnesium Level 3.0 mg/dL (1.8-2.4) Total Bilirubin 2.6 mg/dL (0.2-1.0) Direct Bilirubin 2.3 mg/dL (0.0-0.2) Aspartate Amino Transf (AST/SGOT) 215 U/L (15-37) Alanine Aminotransferase (ALT/SGPT) 74 U/L (16-63) Alkaline Phosphatase 298 U/L (46-116) Total Protein 5.9 g/dL (6.4-8.2) Albumin 2.2 g/dL (3.4-5.0) Triglycerides Level 474 mg/dL (0-150) Glucose (Fingerstick) 151 mg/dL (70-99) O2 Saturation 85 % (92-99) 98 % (92-99) Arterial Blood pH 7.22 (7.35-7.45) 7.30 (7.35-7.45) Arterial Blood pCO2 at Patient Temp 55 mmHg (35-46) 47 mmHg (35-46) Arterial Blood pO2 at Patient Temp 63 mmHg (75-108) 182 mmHg (75-108) Arterial Blood HCO3 22 mmol/L (21-28) 23 mmol/L (21-28) Arterial Blood Base Excess -6 mmol/L (-3-3) -4 mmol/L (-3-3) FiO2 100 100 Laboratory Tests Test 08/31/18 17:45 08/31/18 22:30 09/01/18 00:10 Glucose (Fingerstick) 151 mg/dL (70-99) O2 Saturation 85 % (92-99) 98 % (92-99) Arterial Blood pH 7.22 (7.35-7.45) 7.30 (7.35-7.45) Arterial Blood pCO2 at Patient Temp 55 mmHg (35-46) 47 mmHg (35-46) Arterial Blood pO2 at Patient Temp 63 mmHg (75-108) 182 mmHg (75-108) Arterial Blood HCO3 22 mmol/L (21-28) 23 mmol/L (21-28) Arterial Blood Base Excess -6 mmol/L (-3-3) -4 mmol/L (-3-3) FiO2 100 100 Medications Active Scripts Medications Dose Route/Sig Max Daily Dose Days Date Category Prednisone 20 Mg Tablet 1 Tab PO DAILY 08/26/18 Reported Hydrochlorothiazide Tablet (Hydrochlorothiazide) 12.5 Mg Tablet 12.5 Mg PO DAILY 08/26/18 Reported Shilpi Allergy (Fexofenadine Hcl) 180 Mg Tablet 1 Tab PO DAILY 08/26/18 Reported Potassium Chloride 20 Meq Tablet.er 20 Meq PO DAILY 08/24/18 Rx Orphenadrine Citrate 100 Mg Tablet.er 100 Mg PO Q12HR 02/03/16 Rx Anaprox Ds (Naproxen Sodium) 550 Mg Tablet 550 Mg PO Q12HR 02/03/16 Rx Comments cxr reviewed, ett ok r perihilar infilt, bi lat atelectasis Impression . IMPRESSION: 1. Acute hypoxemic respiratory failure, multifactorial, suspect acute lung injury from recent infection. 2. Suspect tick-borne illness. 3. Fever. 4. Lactic acidosis. 5. Acute renal failure. 6. Acute hepatic injury. 7. Thrombocytopenia, improving. 8. Hemochromatosis. 9. ACUTE TOXIC MET ENCEPH POA 10 DYPHAGIA 11.ENCEPHALITIS Plan . cont vent support until more alert, setting reviewed, sputum cx difficult intubation, need upper airway test bf sbt when ready cont doxy, id add zosyn Ehrlichiae Ab neg RMSF neg, though need convalescent serology [place] pending HSV PCR neg HALDOL PRN D/W RN, critically ill, cc time 30 min MIGUEL A LAST MD September 01, 2018 06:31
[2018-09-01 06:54] LABS: BASO # 0.1 x10^3/uL (0.0-0.2); BASO % 1 % (0-3); EOS % 0 % (0-3); HEMOGLOBIN 8.3 g/dL (13.0-17.5); LYMPH # 3.7 x10^3/uL (1.0-4.8); LYMPH % 29 % (24-48); MEAN CORPUSCULAR HEMOGLOBIN 29 pg (25-35); MEAN CORPUSCULAR HGB CONC 33 g/dL (31-37); MEAN CORPUSCULAR VOLUME 86 fL (79-100); MONO # 2.6 x10^3/uL (0.0-1.1); MONO % 20 % (0-9); NEUT # 6.4 x10^3uL (1.8-7.7); NEUT % 50 % (31-73); PLATELET COUNT 101 x10^3/uL (140-400); RED BLOOD COUNT 2.91 x10^6/uL (4.30-5.70); WHITE BLOOD COUNT 12.8 x10^3/uL (4.0-11.0)
[2018-09-01] MEDS ORDERED: 0.9 % SODIUM CHLORIDE 10 ML DISP.SYRIN. IV PRN ×2 (07:00)
[2018-09-01] MEDS ORDERED: IV NORMAL SALINE 1000ML BAG 1,000 ML IV PRN ×2 (07:00)
--- NOTE | 2018-09-01 07:07 | RAD ---
AP portable chest 09/01/2018. Easing for exam: On ventilator. Respiratory failure. Comparison is made with a study of the previous day. An ETT and 2 right IJ central lines remain in place. An NG tube is also seen extending at least to the stomach. There is still suggestion of perihilar infiltrate on the right and there is probably mild atelectasis medially in the left lower lobe. No new consolidation or pleural fluid is seen. Heart size is normal. IMPRESSION: Stable radiographic appearance. Electronically signed by: Stew Juarez Jr., MD (09/01/2018 7:04 AM) [id number]
[2018-09-01 07:18] LABS: ALBUMIN 2.1 g/dL (3.4-5.0); ALBUMIN/GLOBULIN RATIO 0.6 (1.0-1.7); CALCIUM 7.6 mg/dL (8.5-10.1); CREATININE 9.1 mg/dL (0.7-1.3); GFR 6.1; MAGNESIUM 3.2 mg/dL (1.8-2.4); POTASSIUM 4.8 mmol/L (3.5-5.1); TOTAL BILIRUBIN 1.7 mg/dL (0.2-1.0); TOTAL PROTEIN 5.8 g/dL (6.4-8.2)
--- NOTE | 2018-09-01 08:44 | PDOC ---
INDIGO BELTRAN [employer] 09/01/18 0844: SURGICAL PROGRESS NOTE Subjective intubated last night Vital Signs Vital Signs Date Time Temp Pulse Resp B/P (MAP) Pulse Ox O2 Delivery O2 Flow Rate FiO2 09/01/18 08:00 98.6 79 17 165/91 (115) 97 Ventilator 98.6 08/31/18 23:04 15.0 I&O Intake and Output 09/01/18 07:00 Intake Total 702 ml Output Total 920 ml Balance -218 ml Intake Oral 0 ml IV Total 702 ml Output Urine Total 120 ml Gastric Drainage Total 800 ml General: No acute distress, Other (sedated ) HEENT: Other (NG bilious ) Lungs: Other (mech vent) Abdomen: Other (distended) Labs Laboratory Tests Test 08/31/18 05:00 08/31/18 17:45 08/31/18 22:30 09/01/18 00:10 White Blood Count 11.3 x10^3/uL (4.0-11.0) Red Blood Count 3.07 x10^6/uL (4.30-5.70) Hemoglobin 9.0 g/dL (13.0-17.5) Hematocrit 26.2 % (39.0-53.0) Mean Corpuscular Volume 85 fL (79-100) Mean Corpuscular Hemoglobin 30 pg (25-35) Mean Corpuscular Hemoglobin Concent 35 g/dL (31-37) Red Cell Distribution Width 16.8 % (11.5-14.5) Platelet Count 73 x10^3/uL (140-400) Neutrophils (%) (Auto) 51 % (31-73) Lymphocytes (%) (Auto) 26 % (24-48) Monocytes (%) (Auto) 21 % (0-9) Eosinophils (%) (Auto) 2 % (0-3) Basophils (%) (Auto) 1 % (0-3) Neutrophils # (Auto) 5.7 x10^3uL (1.8-7.7) Lymphocytes # (Auto) 2.9 x10^3/uL (1.0-4.8) Monocytes # (Auto) 2.3 x10^3/uL (0.0-1.1) Eosinophils # (Auto) 0.2 x10^3/uL (0.0-0.7) Basophils # (Auto) 0.1 x10^3/uL (0.0-0.2) Sodium Level 138 mmol/L (136-145) Potassium Level 4.1 mmol/L (3.5-5.1) Chloride Level 101 mmol/L (98-107) Carbon Dioxide Level 26 mmol/L (21-32) Anion Gap 11 (6-14) Blood Urea Nitrogen 52 mg/dL (8-26) Creatinine 6.2 mg/dL (0.7-1.3) Estimated GFR (Cockcroft-Gault) 9.5 Glucose Level 152 mg/dL (70-99) Calcium Level 7.7 mg/dL (8.5-10.1) Phosphorus Level 3.4 mg/dL (2.6-4.7) Magnesium Level 3.0 mg/dL (1.8-2.4) Total Bilirubin 2.6 mg/dL (0.2-1.0) Direct Bilirubin 2.3 mg/dL (0.0-0.2) Aspartate Amino Transf (AST/SGOT) 215 U/L (15-37) Alanine Aminotransferase (ALT/SGPT) 74 U/L (16-63) Alkaline Phosphatase 298 U/L (46-116) Total Protein 5.9 g/dL (6.4-8.2) Albumin 2.2 g/dL (3.4-5.0) Triglycerides Level 474 mg/dL (0-150) Glucose (Fingerstick) 151 mg/dL (70-99) O2 Saturation 85 % (92-99) 98 % (92-99) Arterial Blood pH 7.22 (7.35-7.45) 7.30 (7.35-7.45) Arterial Blood pCO2 at Patient Temp 55 mmHg (35-46) 47 mmHg (35-46) Arterial Blood pO2 at Patient Temp 63 mmHg (75-108) 182 mmHg (75-108) Arterial Blood HCO3 22 mmol/L (21-28) 23 mmol/L (21-28) Arterial Blood Base Excess -6 mmol/L (-3-3) -4 mmol/L (-3-3) FiO2 100 100 Test 09/01/18 06:30 White Blood Count 12.8 x10^3/uL (4.0-11.0) Red Blood Count 2.91 x10^6/uL (4.30-5.70) Hemoglobin 8.3 g/dL (13.0-17.5) Hematocrit 25.0 % (39.0-53.0) Mean Corpuscular Volume 86 fL (79-100) Mean Corpuscular Hemoglobin 29 pg (25-35) Mean Corpuscular Hemoglobin Concent 33 g/dL (31-37) Red Cell Distribution Width 17.0 % (11.5-14.5) Platelet Count 101 x10^3/uL (140-400) Neutrophils (%) (Auto) 50 % (31-73) Lymphocytes (%) (Auto) 29 % (24-48) Monocytes (%) (Auto) 20 % (0-9) Eosinophils (%) (Auto) 0 % (0-3) Basophils (%) (Auto) 1 % (0-3) Neutrophils # (Auto) 6.4 x10^3uL (1.8-7.7) Lymphocytes # (Auto) 3.7 x10^3/uL (1.0-4.8) Monocytes # (Auto) 2.6 x10^3/uL (0.0-1.1) Eosinophils # (Auto) 0.0 x10^3/uL (0.0-0.7) Basophils # (Auto) 0.1 x10^3/uL (0.0-0.2) Sodium Level 142 mmol/L (136-145) Potassium Level 4.8 mmol/L (3.5-5.1) Chloride Level 104 mmol/L (98-107) Carbon Dioxide Level 26 mmol/L (21-32) Anion Gap 12 (6-14) Blood Urea Nitrogen 81 mg/dL (8-26) Creatinine 9.1 mg/dL (0.7-1.3) Estimated GFR (Cockcroft-Gault) 6.1 BUN/Creatinine Ratio 9 (6-20) Glucose Level 140 mg/dL (70-99) Calcium Level 7.6 mg/dL (8.5-10.1) Phosphorus Level 3.0 mg/dL (2.6-4.7) Magnesium Level 3.2 mg/dL (1.8-2.4) Total Bilirubin 1.7 mg/dL (0.2-1.0) Aspartate Amino Transf (AST/SGOT) 121 U/L (15-37) Alanine Aminotransferase (ALT/SGPT) 57 U/L (16-63) Alkaline Phosphatase 230 U/L (46-116) Total Protein 5.8 g/dL (6.4-8.2) Albumin 2.1 g/dL (3.4-5.0) Albumin/Globulin Ratio 0.6 (1.0-1.7) Laboratory Tests Test 08/31/18 17:45 08/31/18 22:30 09/01/18 00:10 09/01/18 06:30 Glucose (Fingerstick) 151 mg/dL (70-99) O2 Saturation 85 % (92-99) 98 % (92-99) Arterial Blood pH 7.22 (7.35-7.45) 7.30 (7.35-7.45) Arterial Blood pCO2 at Patient Temp 55 mmHg (35-46) 47 mmHg (35-46) Arterial Blood pO2 at Patient Temp 63 mmHg (75-108) 182 mmHg (75-108) Arterial Blood HCO3 22 mmol/L (21-28) 23 mmol/L (21-28) Arterial Blood Base Excess -6 mmol/L (-3-3) -4 mmol/L (-3-3) FiO2 100 100 White Blood Count 12.8 x10^3/uL (4.0-11.0) Red Blood Count 2.91 x10^6/uL (4.30-5.70) Hemoglobin 8.3 g/dL (13.0-17.5) Hematocrit 25.0 % (39.0-53.0) Mean Corpuscular Volume 86 fL (79-100) Mean Corpuscular Hemoglobin 29 pg (25-35) Mean Corpuscular Hemoglobin Concent 33 g/dL (31-37) Red Cell Distribution Width 17.0 % (11.5-14.5) Platelet Count 101 x10^3/uL (140-400) Neutrophils (%) (Auto) 50 % (31-73) Lymphocytes (%) (Auto) 29 % (24-48) Monocytes (%) (Auto) 20 % (0-9) Eosinophils (%) (Auto) 0 % (0-3) Basophils (%) (Auto) 1 % (0-3) Neutrophils # (Auto) 6.4 x10^3uL (1.8-7.7) Lymphocytes # (Auto) 3.7 x10^3/uL (1.0-4.8) Monocytes # (Auto) 2.6 x10^3/uL (0.0-1.1) Eosinophils # (Auto) 0.0 x10^3/uL (0.0-0.7) Basophils # (Auto) 0.1 x10^3/uL (0.0-0.2) Sodium Level 142 mmol/L (136-145) Potassium Level 4.8 mmol/L (3.5-5.1) Chloride Level 104 mmol/L (98-107) Carbon Dioxide Level 26 mmol/L (21-32) Anion Gap 12 (6-14) Blood Urea Nitrogen 81 mg/dL (8-26) Creatinine 9.1 mg/dL (0.7-1.3) Estimated GFR (Cockcroft-Gault) 6.1 BUN/Creatinine Ratio 9 (6-20) Glucose Level 140 mg/dL (70-99) Calcium Level 7.6 mg/dL (8.5-10.1) Phosphorus Level 3.0 mg/dL (2.6-4.7) Magnesium Level 3.2 mg/dL (1.8-2.4) Total Bilirubin 1.7 mg/dL (0.2-1.0) Aspartate Amino Transf (AST/SGOT) 121 U/L (15-37) Alanine Aminotransferase (ALT/SGPT) 57 U/L (16-63) Alkaline Phosphatase 230 U/L (46-116) Total Protein 5.8 g/dL (6.4-8.2) Albumin 2.1 g/dL (3.4-5.0) Albumin/Globulin Ratio 0.6 (1.0-1.7) Problem List Problems Medical Problems: (1) Acute renal failure Status: Acute Assessment/Plan continue NG to suction JORGE A CHRISTIANSON MD 09/01/18 1809: SURGICAL PROGRESS NOTE Assessment/Plan Pt seen and examined. Agree with Ms. Beltran's note Pt intubated, non responsive abd soft, ND, NTTP, NGT with bilious output cont NGT INDIGO BELTRAN APRN September 01, 2018 08:44 JORGE A CHRISTIANSON MD September 01, 2018 18:09
[2018-09-01] MEDS: LACTOBACILLUS RHAMNOSUS GG 1 CAPSULE. PO SCH ×2 (09:00→21:00)
[2018-09-01] MEDS: CHLORHEXIDINE 0.12% 15 ML MOUTHWASH. MM SCH ×2 (09:00→21:12)
[2018-09-01] MEDS: IPRATRPIUM/ALBUTEROL 0.5/2.5MG 3 ML NEBU. NEB SCH ×4 (09:07→20:08)
[2018-09-01 09:20] LABS: BASE EXCESS ABG 0 mmol/L (-3-3); HCO3 ABG 23 mmol/L (21-28); PCO2 ABG 33 mmHg (35-46); PO2 ABG 81 mmHg (75-108); SAT O2 ABG 94 % (92-99)
[2018-09-01 09:23] LABS: FIO2 ABG 50
--- NOTE | 2018-09-01 10:45 | PDOC ---
[facility] PROGRESS NOTE Chief Complaint Chief Complaint Sepsis Severe encephalopathy Respiratory failure Probable tick-borne illness, suspected. with h/o tick bite 3 weeks ago at [facility] Lactic acidosis. Fever. Bandemia. Acute hepatic injur Acute kidney injury. Thrombocytopenia. Hemochromatosis. LLE dermatitis improving, ? poison shelby,resolving with local treatment Encephalitis History of Present Illness History of Present Illness Patient seen and examined in the ICU Discussed with family and nurses He is extremely ill Currently on dialysis I reviewed the notes and check labs Vitals Vitals Vital Signs Date Time Temp Pulse Resp B/P (MAP) Pulse Ox O2 Delivery O2 Flow Rate FiO2 09/01/18 09:07 97 Ventilator 09/01/18 08:00 98.6 79 17 165/91 (115) 98.6 08/31/18 23:04 15.0 Physical Exam Physical Exam GENERAL:on bipap basically unconscious HEENT: Pupils equally round, reactive. Normal conjunctivae. Oral cavity: Pharynx pink, dry. NECK: Supple. LUNGS: Clear to auscultation. HEART: S1 and S2. ABDOMEN: Obese, soft, nontender with bowel sounds present. EXTREMITIES: No gross edema or cyanosis. SKIN: Warm without rash. Left knee has several scabs/scarring. NEUROLOGIC: Unconscious this morning General: No acute distress, Other (sedated ) Heart: Regular rate, Normal S1, Normal S2 Lungs: Crackles Abdomen: Other (distended) Extremities: No clubbing, No cyanosis, No edema Skin: No significant lesion, Other (healing rash and excoriations on Left lower extremity. No obvious petechiae) Labs Labs: Laboratory Tests Test 08/31/18 17:45 08/31/18 22:30 09/01/18 00:10 09/01/18 06:30 Glucose (Fingerstick) 151 mg/dL (70-99) O2 Saturation 85 % (92-99) 98 % (92-99) Arterial Blood pH 7.22 (7.35-7.45) 7.30 (7.35-7.45) Arterial Blood pCO2 at Patient Temp 55 mmHg (35-46) 47 mmHg (35-46) Arterial Blood pO2 at Patient Temp 63 mmHg (75-108) 182 mmHg (75-108) Arterial Blood HCO3 22 mmol/L (21-28) 23 mmol/L (21-28) Arterial Blood Base Excess -6 mmol/L (-3-3) -4 mmol/L (-3-3) FiO2 100 100 White Blood Count 12.8 x10^3/uL (4.0-11.0) Red Blood Count 2.91 x10^6/uL (4.30-5.70) Hemoglobin 8.3 g/dL (13.0-17.5) Hematocrit 25.0 % (39.0-53.0) Mean Corpuscular Volume 86 fL (79-100) Mean Corpuscular Hemoglobin 29 pg (25-35) Mean Corpuscular Hemoglobin Concent 33 g/dL (31-37) Red Cell Distribution Width 17.0 % (11.5-14.5) Platelet Count 101 x10^3/uL (140-400) Neutrophils (%) (Auto) 50 % (31-73) Lymphocytes (%) (Auto) 29 % (24-48) Monocytes (%) (Auto) 20 % (0-9) Eosinophils (%) (Auto) 0 % (0-3) Basophils (%) (Auto) 1 % (0-3) Neutrophils # (Auto) 6.4 x10^3uL (1.8-7.7) Lymphocytes # (Auto) 3.7 x10^3/uL (1.0-4.8) Monocytes # (Auto) 2.6 x10^3/uL (0.0-1.1) Eosinophils # (Auto) 0.0 x10^3/uL (0.0-0.7) Basophils # (Auto) 0.1 x10^3/uL (0.0-0.2) Sodium Level 142 mmol/L (136-145) Potassium Level 4.8 mmol/L (3.5-5.1) Chloride Level 104 mmol/L (98-107) Carbon Dioxide Level 26 mmol/L (21-32) Anion Gap 12 (6-14) Blood Urea Nitrogen 81 mg/dL (8-26) Creatinine 9.1 mg/dL (0.7-1.3) Estimated GFR (Cockcroft-Gault) 6.1 BUN/Creatinine Ratio 9 (6-20) Glucose Level 140 mg/dL (70-99) Calcium Level 7.6 mg/dL (8.5-10.1) Phosphorus Level 3.0 mg/dL (2.6-4.7) Magnesium Level 3.2 mg/dL (1.8-2.4) Total Bilirubin 1.7 mg/dL (0.2-1.0) Aspartate Amino Transf (AST/SGOT) 121 U/L (15-37) Alanine Aminotransferase (ALT/SGPT) 57 U/L (16-63) Alkaline Phosphatase 230 U/L (46-116) Total Protein 5.8 g/dL (6.4-8.2) Albumin 2.1 g/dL (3.4-5.0) Albumin/Globulin Ratio 0.6 (1.0-1.7) Test 09/01/18 09:00 O2 Saturation 94 % (92-99) Arterial Blood pH 7.46 (7.35-7.45) Arterial Blood pCO2 at Patient Temp 33 mmHg (35-46) Arterial Blood pO2 at Patient Temp 81 mmHg (75-108) Arterial Blood HCO3 23 mmol/L (21-28) Arterial Blood Base Excess 0 mmol/L (-3-3) FiO2 50 Assessment and Plan Assessmemt and Plan Problems Medical Problems: (1) Acute renal failure Status: Acute Sepsis Severe encephalopathy Respiratory failure Probable tick-borne illness, suspected. with h/o tick bite 3 weeks ago at [facility] Lactic acidosis. Fever. Bandemia. Acute hepatic injur Acute kidney injury. Thrombocytopenia. Hemochromatosis. LLE dermatitis improving, ? poison shelby,resolving with local treatment Encephalitis PLAN: avoid nephrotoxins On temporary dialysis per renal for now For MRI of the head, status post LP-ordered by ID/neuro Continue TPN, hold off any tube feeds Continue Dobb[place] Discussed with significant other and RN at bedside follow Labs cultures Per ID: d/c dapto and cont doxycycline. d/c meropenem, add acyclovir This is a critically ill patient Total time 32 minutes Comment Review of Relevant I have reviewed the following items gera (where applicable) has been applied. Labs Laboratory Tests Test 08/31/18 05:00 08/31/18 17:45 08/31/18 22:30 09/01/18 00:10 White Blood Count 11.3 x10^3/uL (4.0-11.0) Red Blood Count 3.07 x10^6/uL (4.30-5.70) Hemoglobin 9.0 g/dL (13.0-17.5) Hematocrit 26.2 % (39.0-53.0) Mean Corpuscular Volume 85 fL (79-100) Mean Corpuscular Hemoglobin 30 pg (25-35) Mean Corpuscular Hemoglobin Concent 35 g/dL (31-37) Red Cell Distribution Width 16.8 % (11.5-14.5) Platelet Count 73 x10^3/uL (140-400) Neutrophils (%) (Auto) 51 % (31-73) Lymphocytes (%) (Auto) 26 % (24-48) Monocytes (%) (Auto) 21 % (0-9) Eosinophils (%) (Auto) 2 % (0-3) Basophils (%) (Auto) 1 % (0-3) Neutrophils # (Auto) 5.7 x10^3uL (1.8-7.7) Lymphocytes # (Auto) 2.9 x10^3/uL (1.0-4.8) Monocytes # (Auto) 2.3 x10^3/uL (0.0-1.1) Eosinophils # (Auto) 0.2 x10^3/uL (0.0-0.7) Basophils # (Auto) 0.1 x10^3/uL (0.0-0.2) Sodium Level 138 mmol/L (136-145) Potassium Level 4.1 mmol/L (3.5-5.1) Chloride Level 101 mmol/L (98-107) Carbon Dioxide Level 26 mmol/L (21-32) Anion Gap 11 (6-14) Blood Urea Nitrogen 52 mg/dL (8-26) Creatinine 6.2 mg/dL (0.7-1.3) Estimated GFR (Cockcroft-Gault) 9.5 Glucose Level 152 mg/dL (70-99) Calcium Level 7.7 mg/dL (8.5-10.1) Phosphorus Level 3.4 mg/dL (2.6-4.7) Magnesium Level 3.0 mg/dL (1.8-2.4) Total Bilirubin 2.6 mg/dL (0.2-1.0) Direct Bilirubin 2.3 mg/dL (0.0-0.2) Aspartate Amino Transf (AST/SGOT) 215 U/L (15-37) Alanine Aminotransferase (ALT/SGPT) 74 U/L (16-63) Alkaline Phosphatase 298 U/L (46-116) Total Protein 5.9 g/dL (6.4-8.2) Albumin 2.2 g/dL (3.4-5.0) Triglycerides Level 474 mg/dL (0-150) Glucose (Fingerstick) 151 mg/dL (70-99) O2 Saturation 85 % (92-99) 98 % (92-99) Arterial Blood pH 7.22 (7.35-7.45) 7.30 (7.35-7.45) Arterial Blood pCO2 at Patient Temp 55 mmHg (35-46) 47 mmHg (35-46) Arterial Blood pO2 at Patient Temp 63 mmHg (75-108) 182 mmHg (75-108) Arterial Blood HCO3 22 mmol/L (21-28) 23 mmol/L (21-28) Arterial Blood Base Excess -6 mmol/L (-3-3) -4 mmol/L (-3-3) FiO2 100 100 Test 09/01/18 06:30 09/01/18 09:00 White Blood Count 12.8 x10^3/uL (4.0-11.0) Red Blood Count 2.91 x10^6/uL (4.30-5.70) Hemoglobin 8.3 g/dL (13.0-17.5) Hematocrit 25.0 % (39.0-53.0) Mean Corpuscular Volume 86 fL (79-100) Mean Corpuscular Hemoglobin 29 pg (25-35) Mean Corpuscular Hemoglobin Concent 33 g/dL (31-37) Red Cell Distribution Width 17.0 % (11.5-14.5) Platelet Count 101 x10^3/uL (140-400) Neutrophils (%) (Auto) 50 % (31-73) Lymphocytes (%) (Auto) 29 % (24-48) Monocytes (%) (Auto) 20 % (0-9) Eosinophils (%) (Auto) 0 % (0-3) Basophils (%) (Auto) 1 % (0-3) Neutrophils # (Auto) 6.4 x10^3uL (1.8-7.7) Lymphocytes # (Auto) 3.7 x10^3/uL (1.0-4.8) Monocytes # (Auto) 2.6 x10^3/uL (0.0-1.1) Eosinophils # (Auto) 0.0 x10^3/uL (0.0-0.7) Basophils # (Auto) 0.1 x10^3/uL (0.0-0.2) Sodium Level 142 mmol/L (136-145) Potassium Level 4.8 mmol/L (3.5-5.1) Chloride Level 104 mmol/L (98-107) Carbon Dioxide Level 26 mmol/L (21-32) Anion Gap 12 (6-14) Blood Urea Nitrogen 81 mg/dL (8-26) Creatinine 9.1 mg/dL (0.7-1.3) Estimated GFR (Cockcroft-Gault) 6.1 BUN/Creatinine Ratio 9 (6-20) Glucose Level 140 mg/dL (70-99) Calcium Level 7.6 mg/dL (8.5-10.1) Phosphorus Level 3.0 mg/dL (2.6-4.7) Magnesium Level 3.2 mg/dL (1.8-2.4) Total Bilirubin 1.7 mg/dL (0.2-1.0) Aspartate Amino Transf (AST/SGOT) 121 U/L (15-37) Alanine Aminotransferase (ALT/SGPT) 57 U/L (16-63) Alkaline Phosphatase 230 U/L (46-116) Total Protein 5.8 g/dL (6.4-8.2) Albumin 2.1 g/dL (3.4-5.0) Albumin/Globulin Ratio 0.6 (1.0-1.7) O2 Saturation 94 % (92-99) Arterial Blood pH 7.46 (7.35-7.45) Arterial Blood pCO2 at Patient Temp 33 mmHg (35-46) Arterial Blood pO2 at Patient Temp 81 mmHg (75-108) Arterial Blood HCO3 23 mmol/L (21-28) Arterial Blood Base Excess 0 mmol/L (-3-3) FiO2 50 Laboratory Tests Test 08/31/18 17:45 08/31/18 22:30 09/01/18 00:10 09/01/18 06:30 Glucose (Fingerstick) 151 mg/dL (70-99) O2 Saturation 85 % (92-99) 98 % (92-99) Arterial Blood pH 7.22 (7.35-7.45) 7.30 (7.35-7.45) Arterial Blood pCO2 at Patient Temp 55 mmHg (35-46) 47 mmHg (35-46) Arterial Blood pO2 at Patient Temp 63 mmHg (75-108) 182 mmHg (75-108) Arterial Blood HCO3 22 mmol/L (21-28) 23 mmol/L (21-28) Arterial Blood Base Excess -6 mmol/L (-3-3) -4 mmol/L (-3-3) FiO2 100 100 White Blood Count 12.8 x10^3/uL (4.0-11.0) Red Blood Count 2.91 x10^6/uL (4.30-5.70) Hemoglobin 8.3 g/dL (13.0-17.5) Hematocrit 25.0 % (39.0-53.0) Mean Corpuscular Volume 86 fL (79-100) Mean Corpuscular Hemoglobin 29 pg (25-35) Mean Corpuscular Hemoglobin Concent 33 g/dL (31-37) Red Cell Distribution Width 17.0 % (11.5-14.5) Platelet Count 101 x10^3/uL (140-400) Neutrophils (%) (Auto) 50 % (31-73) Lymphocytes (%) (Auto) 29 % (24-48) Monocytes (%) (Auto) 20 % (0-9) Eosinophils (%) (Auto) 0 % (0-3) Basophils (%) (Auto) 1 % (0-3) Neutrophils # (Auto) 6.4 x10^3uL (1.8-7.7) Lymphocytes # (Auto) 3.7 x10^3/uL (1.0-4.8) Monocytes # (Auto) 2.6 x10^3/uL (0.0-1.1) Eosinophils # (Auto) 0.0 x10^3/uL (0.0-0.7) Basophils # (Auto) 0.1 x10^3/uL (0.0-0.2) Sodium Level 142 mmol/L (136-145) Potassium Level 4.8 mmol/L (3.5-5.1) Chloride Level 104 mmol/L (98-107) Carbon Dioxide Level 26 mmol/L (21-32) Anion Gap 12 (6-14) Blood Urea Nitrogen 81 mg/dL (8-26) Creatinine 9.1 mg/dL (0.7-1.3) Estimated GFR (Cockcroft-Gault) 6.1 BUN/Creatinine Ratio 9 (6-20) Glucose Level 140 mg/dL (70-99) Calcium Level 7.6 mg/dL (8.5-10.1) Phosphorus Level 3.0 mg/dL (2.6-4.7) Magnesium Level 3.2 mg/dL (1.8-2.4) Total Bilirubin 1.7 mg/dL (0.2-1.0) Aspartate Amino Transf (AST/SGOT) 121 U/L (15-37) Alanine Aminotransferase (ALT/SGPT) 57 U/L (16-63) Alkaline Phosphatase 230 U/L (46-116) Total Protein 5.8 g/dL (6.4-8.2) Albumin 2.1 g/dL (3.4-5.0) Albumin/Globulin Ratio 0.6 (1.0-1.7) Test 09/01/18 09:00 O2 Saturation 94 % (92-99) Arterial Blood pH 7.46 (7.35-7.45) Arterial Blood pCO2 at Patient Temp 33 mmHg (35-46) Arterial Blood pO2 at Patient Temp 81 mmHg (75-108) Arterial Blood HCO3 23 mmol/L (21-28) Arterial Blood Base Excess 0 mmol/L (-3-3) FiO2 50 Microbiology 08/26/18 Blood Culture - Final, Complete NO GROWTH AFTER 5 DAYS 08/29/18 CSF Gram Stain - Final, Complete 08/27/18 Stool Culture - Final, Resulted 08/27/18 Stool Culture Result 1 (LOTUS) - Final, Resulted 08/27/18 Campylobacter Antigen Assay - Preliminary, Resulted 08/27/18 Campylobactor Result 1 - Preliminary, Resulted 08/27/18 Shiga Toxin Test - Final, Resulted 08/25/18 Throat Culture - Final, Complete 08/25/18 - Final, Complete Medications Current Medications Sodium Chloride 1,000 ml @ 1,000 mls/hr 1X ONCE IV Last administered on 08/25/18at 20:38; Start 08/25/18 at 19:15; Stop 08/25/18 at 20:14; Status DC Ibuprofen (Motrin) 600 mg 1X ONCE PO Last administered on 08/25/18at 20:38; Start 08/25/18 at 19:45; Stop 08/25/18 at 19:49; Status DC Sodium Chloride 1,000 ml @ 1,000 mls/hr 1X ONCE IV Last administered on 08/25/18at 20:30; Start 08/25/18 at 20:30; Stop 08/25/18 at 21:29; Status DC Ceftriaxone Sodium (Rocephin) 1 gm 1X ONCE IVP Last administered on 08/25/18at 20:36; Start 08/25/18 at 20:30; Stop 08/25/18 at 20:31; Status DC Vancomycin HCl 2 gm/Sodium Chloride 500 ml @ 250 mls/hr 1X ONCE IV Last administered on 08/25/18 23:10; Start 08/25/18 at 21:30; Stop 08/25/18 at 2 3:29; Status DC Sodium Chloride 1,000 ml @ 1,000 mls/hr 1X ONCE IV Last administered on 08/25/18at 23:51; Start 08/25/18 at 21:00; Stop 08/25/18 at 21:59; Status DC Piperacillin Sod/ Tazobactam Sod 4.5 gm/Sodium Chloride 100 ml @ 200 mls/hr 1X ONCE IV ; Start 08/25/18 at 21:15; Stop 08/25/18 at 21:44; Status DC Aztreonam (Azactam) 2 gm 1X ONCE IVP Last administered on 08/25/18at 21:15; Start 08/25/18 at 21:15; Stop 08/25/18 at 21:16; Status DC Magnesium Sulfate 50 ml @ 25 mls/hr 1X ONCE IV Last administered on 08/25/18at 23:51; Start 08/25/18 at 21:15; Stop 08/25/18 at 23:14; Status DC Ondansetron HCl (Zofran) 4 mg PRN Q8HRS PRN IV NAUSEA/VOMITING; Start 08/25/18 at 21:15; Stop 08/26/18 at 21:14; Status DC Acetaminophen (Tylenol) 650 mg PRN Q4HRS PRN PO FEVER; Start 08/25/18 at 21:15; Stop 08/26/18 at 21:14; Status DC Sodium Chloride 1,000 ml @ 125 mls/hr 1X ONCE IV Last administered on 08/25/18at 23:09; Start 08/25/18 at 21:15; Stop 08/26/18 at 05:14; Status DC Daptomycin 610 mg/ Sodium Chloride 50 ml @ 100 mls/hr QODAY IV Last administered on 08/27/18at 08:59; Start 08/27/18 at 09:00; Stop 08/28/18 at 15:40; Status DC Meropenem 500 mg/ Sodium Chloride 50 ml @ 100 mls/hr 1X ONCE IV Last administered on 08/25/18at 22:12; Start 08/25/18 at 22:00; Stop 08/25/18 at 22:29; Status DC Doxycycline Hyclate 100 mg/ Dextrose 100 ml @ 50 mls/hr Q12HR IV Last administered on 08/31/18at 20:58; Start 08/26/18 at 09:00 Meropenem 500 mg/ Sodium Chloride 50 ml @ 100 mls/hr DAILY IV Last administered on 08/29/18at 10:13; Start 08/26/18 at 09:00; Stop 08/30/18 at 08:17; Status DC Sodium Chloride (Normal Saline Flush) 10 ml QSHIFT PRN IV AFTER MEDS AND BLOOD DRAWS; Start 08/26/18 at 09:15 Norepinephrine Bitartrate 250 ml @ 0 mls/hr CONT PRN IV PER PROTOCOL Last administered on 08/27/18at 10:21; Start 08/26/18 at 09:15; Stop 08/30/18 at 17:20; Status DC Famotidine (Pepcid) 20 mg DAILY PO Last administered on 08/27/18at 08:14; Start 08/26/18 at 12:00; Stop 08/27/18 at 14:36; Status DC Sodium Chloride 1,000 ml @ 1,000 mls/hr Q1H PRN IV hypotension; Start 08/26/18 at 11:51; Stop 08/26/18 at 17:50; Status DC Sodium Chloride (Normal Saline Flush) 10 ml 1X PRN PRN IV AP catheter pack; Start 08/26/18 at 12:00; Stop 08/27/18 at 11:59; Status DC Sodium Chloride (Normal Saline Flush) 10 ml 1X PRN PRN IV [employer] catheter pack; Start 08/26/18 at 12:00; Stop 08/27/18 at 11:59; Status DC Sodium Chloride 1,000 ml @ 400 mls/hr Q2H30M PRN IV PATENCY; Start 08/26/18 at 11:51; Stop 08/26/18 at 23:50; Status DC Info (PHARMACY MONITORING -- do not chart) 1 each PRN DAILY PRN MC SEE COMMENTS; Start 08/26/18 at 12:00; Status UNV Info (PHARMACY MONITORING -- do not chart) 1 each PRN DAILY PRN MC SEE COMMENTS; Start 08/26/18 at 12:00 Lidocaine/Sodium Bicarbonate (Buffered Lidocaine 1%) 4 ml 1X ONCE INJ Last administered on 08/26/18at 12:45; Start 08/26/18 at 12:45; Stop 08/26/18 at 12:48; Status DC Heparin Sodium (Porcine) (Heparin Sodium) 2,500 unit 1X ONCE INT CAT Last administered on 08/26/18at 12:45; Start 08/26/18 at 12:45; Stop 08/26/18 at 12:48; Status DC Lidocaine/Sodium Bicarbonate (Buffered Lidocaine 1%) 3 ml STK-MED ONCE .ROUTE ; Start 08/26/18 at 12:49; Stop 08/26/18 at 12:50; Status DC Heparin Sodium (Porcine) (Heparin Sodium) 10,000 unit STK-MED ONCE .ROUTE ; Start 08/26/18 at 12:49; Stop 08/26/18 at 12:50; Status DC Lactobacillus Rhamnosus (Culturelle) 1 cap BID PO Last administered on 08/28/18at 08:01; Start 08/26/18 at 21:00 Acetaminophen (Tylenol) 325 mg STK-MED ONCE PO ; Start 08/27/18 at 00:43; Stop 08/27/18 at 00:44; Status DC Sodium Chloride 1,000 ml @ 1,000 mls/hr 1X ONCE IV Last administered on 08/27/18at 11:05; Start 08/27/18 at 10:30; Stop 08/27/18 at 11:29; Status DC Sodium Chloride 1,000 ml @ 1,000 mls/hr Q1H PRN IV hypotension; Start 08/27/18 at 11:28; Stop 08/27/18 at 17:27; Status DC Albumin Human 200 ml @ 200 mls/hr 1X PRN PRN IV Hypotension; Start 08/27/18 at 11:30; Stop 08/27/18 at 17:29; Status DC Sodium Chloride (Normal Saline Flush) 10 ml 1X PRN PRN IV AP catheter pack; Start 08/27/18 at 11:30; Stop 08/28/18 at 11:29; Status DC Sodium Chloride (Normal Saline Flush) 10 ml 1X PRN PRN IV [employer] catheter pack; Start 08/27/18 at 11:30; Stop 08/28/18 at 11:29; Status DC Sodium Chloride 1,000 ml @ 400 mls/hr Q2H30M PRN IV PATENCY; Start 08/27/18 at 11:28; Stop 08/27/18 at 23:27; Status DC Info (PHARMACY MONITORING -- do not chart) 1 each PRN DAILY PRN MC SEE CO MMENTS; Start 08/27/18 at 11:30; Status UNV Info (PHARMACY MONITORING -- do not chart) 1 each PRN DAILY PRN MC SEE COMMENTS; Start 08/27/18 at 11:30; Status UNV Famotidine (Pepcid) 20 mg Q48H PO ; Start 08/29/18 at 09:00; Stop 08/29/18 at 11:29; Status DC Acetaminophen (Tylenol) 650 mg PRN Q6HRS PRN PO pain/fever; Start 08/27/18 at 21:15 Acetaminophen (Tylenol Supp) 650 mg PRN Q6HRS PRN [place] MILD PAIN / TEMP Last administered on 08/27/18at 21:25; Start 08/27/18 at 21:15 Fentanyl Citrate (Fentanyl 2ml Vial) 25 mcg 1X ONCE IV Last administered on 08/28/18at 08:54; Start 08/28/18 at 08:45; Stop 08/28/18 at 08:47; Status DC Lidocaine/Sodium Bicarbonate (Buffered Lidocaine 1%) 3 ml STK-MED ONCE .ROUTE ; Start 08/28/18 at 09:55; Stop 08/28/18 at 09:56; Status DC Lidocaine HCl (Glydo (Lidocaine) Jelly) 1 meng 1X STAT MM Last administered on 08/28/18at 10:16; Start 08/28/18 at 10:16; Stop 08/28/18 at 10:19; Status DC Benzocaine (Hurricaine One) 1 spray 1X STAT MM Last administered on 08/28/18at 10:16; Start 08/28/18 at 10:16; Stop 08/28/18 at 10:19; Status DC Lidocaine/Sodium Bicarbonate (Buffered Lidocaine 1%) 3 ml 1X ONCE INJ ; Start 08/28/18 at 10:30; Stop 08/28/18 at 10:31; Status DC Haloperidol Lactate (Haldol Inj) 5 mg PRN Q6HRS PRN IVP AGITATION Last administered on 08/29/18at 20:31; Start 08/28/18 at 12:00 Fentanyl Citrate (Fentanyl 2ml Vial) 50 mcg PRN Q4HRS PRN IV PAIN Last administered on 08/28/18at 21:44; Start 08/28/18 at 15:30 Sodium Chloride 1,000 ml @ 1,000 mls/hr Q1H PRN IV hypotension; Start 08/28/18 at 14:00; Stop 08/28/18 at 19:59; Status DC Albumin Human 200 ml @ 200 mls/hr 1X PRN PRN IV Hypotension Last administered on 08/28/18at 14:50; Start 08/28/18 at 14:00 Sodium Chloride 1,000 ml @ 400 mls/hr Q2H30M PRN IV PATENCY; Start 08/28/18 at 14:00; Stop 08/29/18 at 01:59; Status DC Info (PHARMACY MONITORING -- do not chart) 1 each PRN DAILY PRN MC SEE COMMENTS; Start 08/28/18 at 15:30; Status UNV Info (PHARMACY MONITORING -- do not chart) 1 each PRN DAILY PRN MC SEE COMMENTS; Start 08/28/18 at 15:30; Status UNV Daptomycin 610 mg/ Sodium Chloride 50 ml @ 100 mls/hr Q48H IV ; Start 08/30/18 at 16:00; Stop 08/30/18 at 16:00; Status DC Famotidine (Pepcid Vial) 20 mg QHS IVP Last administered on 08/31/18at 20:59; Start 08/29/18 at 21:00 Acyclovir Sodium 340 mg/Dextrose 106.8 ml @ 106.8 mls/ hr Q12HR IV Last administered on 08/31/18at 20:58; Start 08/30/18 at 09:00 Sodium Chloride 1,000 ml @ 1,000 mls/hr Q1H PRN IV hypotension; Start 08/30/18 at 11:02; Stop 08/30/18 at 17:01; Status DC Sodium Chloride 1,000 ml @ 400 mls/hr Q2H30M PRN IV PATENCY; Start 08/30/18 at 11:02; Stop 08/30/18 at 23:01; Status DC Info (PHARMACY MONITORING -- do not chart) 1 each PRN DAILY PRN MC SEE COMMENTS; Start 08/30/18 at 11:15; Status UNV Info (PHARMACY MONITORING -- do not chart) 1 each PRN DAILY PRN MC SEE COMMENTS; Start 08/30/18 at 11:15; Status UNV Info (Tpn Per Pharmacy) 1 each PRN DAILY PRN MC SEE COMMENTS Last administered on 08/31/18at 14:06; Start 08/30/18 at 12:45 Sodium Chloride 90 meq/Potassium Chloride 50 meq/ Potassium Phosphate 3 mmol/ Magnesium Sulfate 10 meq/Calcium Gluconate 10 meq/ Multivitamins 10 ml/Chromium/ Copper/Manganese/ Seleni/Zn 1 ml/ Total Parenteral Nutrition/Amino Acids/Dextrose/ Fat Emulsion Intravenous 1,512 ml @ 63 mls/hr TPN CONT IV Last administered on 08/30/18at 21:40; Start 08/30/18 at 22:00; Stop 08/31/18 at 21:59; Status DC Ondansetron HCl (Zofran) 4 mg PRN Q6HRS PRN IV NAUSEA/VOMITING; Start 08/31/18 at 08:00 Haloperidol (Haldol) 2 mg PRN QID PRN PO AGITATION; Start 08/31/18 at 08:00; Stop 08/31/18 at 12:43; Status DC Haloperidol Lactate (HALDOL 2mg ORAL CONC) 2 mg PRN QID PRN PO AGITATION; Start 08/31/18 at 12:43 Sodium Chloride 90 meq/Potassium Chloride 50 meq/ Potassium Phosphate 5 mmol/ Magnesium Sulfate 3 meq/Calcium Gluconate 10 meq/ Multivitamins 10 ml/Chromium/ Copper/Manganese/ Seleni/Zn 1 ml/ Total Parenteral Nutrition/Amino Acids/Dextrose 1,512 ml @ 63 mls/hr TPN CONT IV Last administered on 08/31/18at 20:59; Start 08/31/18 at 22:00; Stop 09/01/18 at 21:59 Propofol 100 ml @ As Directed STK-MED ONCE IV ; Start 08/31/18 at 22:45; Stop 08/31/18 at 22:46; Status DC Succinylcholine Chloride (Anectine) 200 mg STK-MED ONCE .ROUTE ; Start 08/31/18 at 22:46; Stop 08/31/18 at 22:47; Status DC Atropine Sulfate (ATROPINE 1mg SYRINGE) 1 mg STK-MED ONCE .ROUTE ; Start 08/31/18 at 22:58; Stop 08/31/18 at 22:59; Status DC Fentanyl Citrate 30 ml @ 0 mls/hr CONT PRN IV SEE PROTOCOL; Start 09/01/18 at 00:00 Propofol 100 ml @ 0 mls/hr CONT PRN IV SEE PROTOCOL Last administered on 09/01/18at 00:15; Start 09/01/18 at 00:00 Chlorhexidine Gluconate (Peridex) 15 ml BID MM ; Start 09/01/18 at 09:00 Midazolam HCl 100 ml @ 0 mls/hr CONT PRN IV SEE PROTOCOL; Start 09/01/18 at 00:00 Albuterol/ Ipratropium (Duoneb) 3 ml RTQID NEB Last administered on 09/01/18at 09:07; Start 09/01/18 at 08:00 Albuterol/ Ipratropium (Duoneb) 3 ml 1X ONCE NEB Last administered on 09/01/18at 01:10; Start 09/01/18 at 01:00; Stop 09/01/18 at 01:01; Status DC Succinylcholine Chloride (Anectine) 200 mg 1X ONCE IV Last administered on 08/31/18at 23:04; Start 09/01/18 at 01:15; Stop 09/01/18 at 01:16; Status DC Active Scripts Active Potassium Chloride 20 Meq Tablet.er 20 Meq PO DAILY Orphenadrine Citrate 100 Mg Tablet.er 100 Mg PO Q12HR Anaprox Ds (Naproxen Sodium) 550 Mg Tablet 550 Mg PO Q12HR Reported Prednisone 20 Mg Tablet 1 Tab PO DAILY Hydrochlorothiazide Tablet (Hydrochlorothiazide) 12.5 Mg Tablet 12.5 Mg PO DAILY Shilpi Allergy (Fexofenadine Hcl) 180 Mg Tablet 1 Tab PO DAILY Vitals/I & O Vital Sign - Last 24 Hours 08/31/18 08/31/18 08/31/18 08/31/18 11:00 12:16 15:00 15:00 Temp 97.8 98.2 97.9 98.2 97.8 98.2 97.9 98.2 Pulse 83 81 88 89 Resp 16 20 18 20 B/P (MAP) 172/90 (117) 159/88 (111) 117/70 (86) 149/59 (89) Pulse Ox 93 94 90 O2 Delivery Nasal Cannula Venturi Mask Room Air Room Air O2 Flow Rate 15.0 15.0 08/31/18 08/31/18 08/31/18 08/31/18 19:06 20:00 22:45 22:58 Temp 100.0 100.0 Pulse 90 98 44 Resp 22 B/P (MAP) 179/89 (119) 172/81 (111) Pulse Ox 92 80 82 O2 Delivery Nasal Cannula Venturi Mask Bag Valve Mask Bag Valve Mask O2 Flow Rate 15.0 15.0 15.0 15.0 08/31/18 08/31/18 08/31/18 08/31/18 22:59 23:04 23:15 23:15 Pulse 0 136 142 Resp 18 B/P (MAP) 107/37 (60) 119/57 (77) Pulse Ox 98 98 O2 Delivery Bag Valve Mask Bag Valve Mask Ventilator Ventilator O2 Flow Rate 15.0 15.0 08/31/18 08/31/18 08/31/18 08/31/18 23:30 23:30 23:45 23:59 Temp 98.4 98.4 Pulse 120 114 108 Resp 30 30 30 B/P (MAP) 103/77 (86) 129/78 (95) 132/61 (84) Pulse Ox 98 99 100 O2 Delivery Mechanical Ventilator Ventilator Ventilator Ventilator 09/01/18 09/01/18 09/01/18 09/01/18 00:26 00:30 01:00 01:10 Pulse 100 94 Resp 24 20 B/P (MAP) 113/69 (84) 137/65 (89) Pulse Ox 100 99 99 100 O2 Delivery Ventilator Ventilator Ventilator Ventilator 09/01/18 09/01/18 09/01/18 09/01/18 02:00 02:54 03:00 04:00 Temp 100.6 100.6 Pulse 98 89 99 Resp 18 18 18 B/P (MAP) 149/71 (97) 114/60 (78) 108/50 (69) Pulse Ox 97 98 98 99 O2 Delivery Ventilator Ventilator Ventilator Ventilator 09/01/18 09/01/18 09/01/18 09/01/18 04:00 04:30 05:00 06:00 Temp 100.5 100.5 Pulse 81 82 Resp 18 18 B/P (MAP) 116/52 (73) 138/57 (84) Pulse Ox 96 96 98 O2 Delivery Mechanical Ventilator Ventilator Ventilator Ventilator 09/01/18 09/01/18 09/01/18 07:00 08:00 09:07 Temp 98.6 98.6 Pulse 78 79 Resp 18 17 B/P (MAP) 128/64 (85) 165/91 (115) Pulse Ox 98 97 97 O2 Delivery Ventilator Ventilator Ventilator Intake and Output 08/31/18 08/31/18 09/01/18 15:00 23:00 07:00 Intake Total 100 ml 602 ml Output Total 200 ml 600 ml 120 ml Balance -200 ml -500 ml 482 ml MARIAM BOGGS III DO September 01, 2018 10:45
--- NOTE | 2018-09-01 10:49 | PDOC ---
Dialysis Progress Note Dialysis Note Dialysis Note Patient developed bradycardia overnight and was transferred to the ICU. He is now intubated sedated on the vent, TPN Seen on Hemodialysis, tolerating treatment Okay for now Vitals on Hemodialysis: 111/72 78 Sedated and intubated on the vent currently Neck: No JVD or JVP Chest: CTA [place] Heart: S1 S2 Abdomen - Soft NTND, no BS Extremities - No Edema ARF/ ATN : Dialysis as below F 180 NR 3.0 Hrs 3 K 2.5 Ca 140 Na 35 HC03 Qb 350 + Qd 500+ Heparin 0 Units Uf 1-2 Kgs or to dry weight as tolerated May give 25-50 gms of 25% Albumin if needed to maintain Hemodynamic stability Treatment plan reviewed and discussed with cone treater Vitals Vital Signs Vital Signs Date Time Temp Pulse Resp B/P (MAP) Pulse Ox O2 Delivery O2 Flow Rate FiO2 09/01/18 09:07 97 Ventilator 09/01/18 08:00 98.6 79 17 165/91 (115) 98.6 08/31/18 23:04 15.0 Labs Last Labs Laboratory Tests Test 08/31/18 05:00 08/31/18 17:45 08/31/18 22:30 09/01/18 00:10 White Blood Count 11.3 x10^3/uL (4.0-11.0) Red Blood Count 3.07 x10^6/uL (4.30-5.70) Hemoglobin 9.0 g/dL (13.0-17.5) Hematocrit 26.2 % (39.0-53.0) Mean Corpuscular Volume 85 fL (79-100) Mean Corpuscular Hemoglobin 30 pg (25-35) Mean Corpuscular Hemoglobin Concent 35 g/dL (31-37) Red Cell Distribution Width 16.8 % (11.5-14.5) Platelet Count 73 x10^3/uL (140-400) Neutrophils (%) (Auto) 51 % (31-73) Lymphocytes (%) (Auto) 26 % (24-48) Monocytes (%) (Auto) 21 % (0-9) Eosinophils (%) (Auto) 2 % (0-3) Basophils (%) (Auto) 1 % (0-3) Neutrophils # (Auto) 5.7 x10^3uL (1.8-7.7) Lymphocytes # (Auto) 2.9 x10^3/uL (1.0-4.8) Monocytes # (Auto) 2.3 x10^3/uL (0.0-1.1) Eosinophils # (Auto) 0.2 x10^3/uL (0.0-0.7) Basophils # (Auto) 0.1 x10^3/uL (0.0-0.2) Sodium Level 138 mmol/L (136-145) Potassium Level 4.1 mmol/L (3.5-5.1) Chloride Level 101 mmol/L (98-107) Carbon Dioxide Level 26 mmol/L (21-32) Anion Gap 11 (6-14) Blood Urea Nitrogen 52 mg/dL (8-26) Creatinine 6.2 mg/dL (0.7-1.3) Estimated GFR (Cockcroft-Gault) 9.5 Glucose Level 152 mg/dL (70-99) Calcium Level 7.7 mg/dL (8.5-10.1) Phosphorus Level 3.4 mg/dL (2.6-4.7) Magnesium Level 3.0 mg/dL (1.8-2.4) Total Bilirubin 2.6 mg/dL (0.2-1.0) Direct Bilirubin 2.3 mg/dL (0.0-0.2) Aspartate Amino Transf (AST/SGOT) 215 U/L (15-37) Alanine Aminotransferase (ALT/SGPT) 74 U/L (16-63) Alkaline Phosphatase 298 U/L (46-116) Total Protein 5.9 g/dL (6.4-8.2) Albumin 2.2 g/dL (3.4-5.0) Triglycerides Level 474 mg/dL (0-150) Glucose (Fingerstick) 151 mg/dL (70-99) O2 Saturation 85 % (92-99) 98 % (92-99) Arterial Blood pH 7.22 (7.35-7.45) 7.30 (7.35-7.45) Arterial Blood pCO2 at Patient Temp 55 mmHg (35-46) 47 mmHg (35-46) Arterial Blood pO2 at Patient Temp 63 mmHg (75-108) 182 mmHg (75-108) Arterial Blood HCO3 22 mmol/L (21-28) 23 mmol/L (21-28) Arterial Blood Base Excess -6 mmol/L (-3-3) -4 mmol/L (-3-3) FiO2 100 100 Test 09/01/18 06:30 09/01/18 09:00 White Blood Count 12.8 x10^3/uL (4.0-11.0) Red Blood Count 2.91 x10^6/uL (4.30-5.70) Hemoglobin 8.3 g/dL (13.0-17.5) Hematocrit 25.0 % (39.0-53.0) Mean Corpuscular Volume 86 fL (79-100) Mean Corpuscular Hemoglobin 29 pg (25-35) Mean Corpuscular Hemoglobin Concent 33 g/dL (31-37) Red Cell Distribution Width 17.0 % (11.5-14.5) Platelet Count 101 x10^3/uL (140-400) Neutrophils (%) (Auto) 50 % (31-73) Lymphocytes (%) (Auto) 29 % (24-48) Monocytes (%) (Auto) 20 % (0-9) Eosinophils (%) (Auto) 0 % (0-3) Basophils (%) (Auto) 1 % (0-3) Neutrophils # (Auto) 6.4 x10^3uL (1.8-7.7) Lymphocytes # (Auto) 3.7 x10^3/uL (1.0-4.8) Monocytes # (Auto) 2.6 x10^3/uL (0.0-1.1) Eosinophils # (Auto) 0.0 x10^3/uL (0.0-0.7) Basophils # (Auto) 0.1 x10^3/uL (0.0-0.2) Sodium Level 142 mmol/L (136-145) Potassium Level 4.8 mmol/L (3.5-5.1) Chloride Level 104 mmol/L (98-107) Carbon Dioxide Level 26 mmol/L (21-32) Anion Gap 12 (6-14) Blood Urea Nitrogen 81 mg/dL (8-26) Creatinine 9.1 mg/dL (0.7-1.3) Estimated GFR (Cockcroft-Gault) 6.1 BUN/Creatinine Ratio 9 (6-20) Glucose Level 140 mg/dL (70-99) Calcium Level 7.6 mg/dL (8.5-10.1) Phosphorus Level 3.0 mg/dL (2.6-4.7) Magnesium Level 3.2 mg/dL (1.8-2.4) Total Bilirubin 1.7 mg/dL (0.2-1.0) Aspartate Amino Transf (AST/SGOT) 121 U/L (15-37) Alanine Aminotransferase (ALT/SGPT) 57 U/L (16-63) Alkaline Phosphatase 230 U/L (46-116) Total Protein 5.8 g/dL (6.4-8.2) Albumin 2.1 g/dL (3.4-5.0) Albumin/Globulin Ratio 0.6 (1.0-1.7) O2 Saturation 94 % (92-99) Arterial Blood pH 7.46 (7.35-7.45) Arterial Blood pCO2 at Patient Temp 33 mmHg (35-46) Arterial Blood pO2 at Patient Temp 81 mmHg (75-108) Arterial Blood HCO3 23 mmol/L (21-28) Arterial Blood Base Excess 0 mmol/L (-3-3) FiO2 50 Laboratory Tests Test 08/31/18 17:45 08/31/18 22:30 09/01/18 00:10 09/01/18 06:30 Glucose (Fingerstick) 151 mg/dL (70-99) O2 Saturation 85 % (92-99) 98 % (92-99) Arterial Blood pH 7.22 (7.35-7.45) 7.30 (7.35-7.45) Arterial Blood pCO2 at Patient Temp 55 mmHg (35-46) 47 mmHg (35-46) Arterial Blood pO2 at Patient Temp 63 mmHg (75-108) 182 mmHg (75-108) Arterial Blood HCO3 22 mmol/L (21-28) 23 mmol/L (21-28) Arterial Blood Base Excess -6 mmol/L (-3-3) -4 mmol/L (-3-3) FiO2 100 100 White Blood Count 12.8 x10^3/uL (4.0-11.0) Red Blood Count 2.91 x10^6/uL (4.30-5.70) Hemoglobin 8.3 g/dL (13.0-17.5) Hematocrit 25.0 % (39.0-53.0) Mean Corpuscular Volume 86 fL (79-100) Mean Corpuscular Hemoglobin 29 pg (25-35) Mean Corpuscular Hemoglobin Concent 33 g/dL (31-37) Red Cell Distribution Width 17.0 % (11.5-14.5) Platelet Count 101 x10^3/uL (140-400) Neutrophils (%) (Auto) 50 % (31-73) Lymphocytes (%) (Auto) 29 % (24-48) Monocytes (%) (Auto) 20 % (0-9) Eosinophils (%) (Auto) 0 % (0-3) Basophils (%) (Auto) 1 % (0-3) Neutrophils # (Auto) 6.4 x10^3uL (1.8-7.7) Lymphocytes # (Auto) 3.7 x10^3/uL (1.0-4.8) Monocytes # (Auto) 2.6 x10^3/uL (0.0-1.1) Eosinophils # (Auto) 0.0 x10^3/uL (0.0-0.7) Basophils # (Auto) 0.1 x10^3/uL (0.0-0.2) Sodium Level 142 mmol/L (136-145) Potassium Level 4.8 mmol/L (3.5-5.1) Chloride Level 104 mmol/L (98-107) Carbon Dioxide Level 26 mmol/L (21-32) Anion Gap 12 (6-14) Blood Urea Nitrogen 81 mg/dL (8-26) Creatinine 9.1 mg/dL (0.7-1.3) Estimated GFR (Cockcroft-Gault) 6.1 BUN/Creatinine Ratio 9 (6-20) Glucose Level 140 mg/dL (70-99) Calcium Level 7.6 mg/dL (8.5-10.1) Phosphorus Level 3.0 mg/dL (2.6-4.7) Magnesium Level 3.2 mg/dL (1.8-2.4) Total Bilirubin 1.7 mg/dL (0.2-1.0) Aspartate Amino Transf (AST/SGOT) 121 U/L (15-37) Alanine Aminotransferase (ALT/SGPT) 57 U/L (16-63) Alkaline Phosphatase 230 U/L (46-116) Total Protein 5.8 g/dL (6.4-8.2) Albumin 2.1 g/dL (3.4-5.0) Albumin/Globulin Ratio 0.6 (1.0-1.7) Test 09/01/18 09:00 O2 Saturation 94 % (92-99) Arterial Blood pH 7.46 (7.35-7.45) Arterial Blood pCO2 at Patient Temp 33 mmHg (35-46) Arterial Blood pO2 at Patient Temp 81 mmHg (75-108) Arterial Blood HCO3 23 mmol/L (21-28) Arterial Blood Base Excess 0 mmol/L (-3-3) FiO2 50 Assessment Assessment Problems Medical Problems: (1) Acute renal failure Status: Acute Plan Plan of Care Problems Medical Problems: (1) Acute renal failure Status: Acute BRADY PARKER MD September 01, 2018 10:49
[2018-09-01] MEDS ORDERED: DIALYSIS PATIENT. MC PRN ×2 (11:00)
[2018-09-01] MEDS: DOXYCYCLINE HYCLATE 100 MG in IV DEXTROSE 5% 100ML 100 ML IV SCH ×2 (11:04→21:12)
[2018-09-01] MEDS: DEXTROSE 5% IV SCH (11:05)
[2018-09-01] MEDS: ACYCLOVIR SODIUM IV SCH (11:05)
[2018-09-01] MEDS: TPN PER PHARMACY MC PRN (11:08)
--- NOTE | 2018-09-01 11:13 | NUR ---
Pharmacy TPN Dosing Note S: STACIE ALEGRIA is a 52 year old M Currently receiving Central Continuous TPN started 08/30/18 B:Pertinent PMH: NPO; gastric distention Height: 5 feet, 8 inches Weight: 102.122322 kg Current diet: NPO LABS: Sodium: 142 Potassium: 4.8 Chloride: 104 Calcium: 7.7 Corrected Calcium: 9.14 Magnesium: 3.2 CO2: 26 SCr: 9.1 Glucose: 140 Albumin: 2.2 AST: 121 ALT: 57 TPN FORMULA: TPN TYPE: Central Continuous AMINO ACIDS: 100 gm DEXTROSE: 295 gm LIPIDS: 0 gm SODIUM CHLORIDE: 90 mEq SODIUM ACETATE: mEq SODIUM PHOSPHATE: mmol POTASSIUM CHLORIDE: 50 mEq POTASSIUM ACETATE: mEq POTASSIUM PHOSPHATE: 10 mmol MAGNESIUM: 0 mEq CALCIUM: 10 mEq INSULIN: units MULTIPLE VITAMIN: 10 ml TRACE ELEMENTS: 1 ml(s) TPN PLAN: remove magso4 from tpn, increase kphos to 10 mm R: Continue TPN AT 63ML/HR Will monitor electrolytes, glucose, and tolerance to TPN. BALBIR HUMPHREY [facility], 09/01/18 1116
--- NOTE | 2018-09-01 13:37 | PDOC ---
Infectious Disease Note Subjective Subjective events noted, intubated on vent now ROS ROS no n/v/d/ Vital Sign Vital Signs Vital Signs Date Time Temp Pulse Resp B/P (MAP) Pulse Ox O2 Delivery O2 Flow Rate FiO2 09/01/18 13:24 99 Ventilator 09/01/18 12:00 98.4 80 20 95/56 (69) 98.4 08/31/18 23:04 15.0 Physical Exam PHYSICAL EXAM GENERAL:sedated on vent HEENT: Pupils equally round, reactive. Normal conjunctivae. Oral cavity: Pharynx pink, dry. NECK: Supple. LUNGS: Clear to auscultation. HEART: S1 and S2. ABDOMEN: Obese, soft, nontender with bowel sounds present. EXTREMITIES: No gross edema or cyanosis. SKIN: Warm without rash. Left knee has several scabs/scarring. NEUROLOGIC: sedated on vent Labs Lab Laboratory Tests Test 08/31/18 17:45 08/31/18 22:30 09/01/18 00:10 09/01/18 06:30 Glucose (Fingerstick) 151 mg/dL (70-99) O2 Saturation 85 % (92-99) 98 % (92-99) Arterial Blood pH 7.22 (7.35-7.45) 7.30 (7.35-7.45) Arterial Blood pCO2 at Patient Temp 55 mmHg (35-46) 47 mmHg (35-46) Arterial Blood pO2 at Patient Temp 63 mmHg (75-108) 182 mmHg (75-108) Arterial Blood HCO3 22 mmol/L (21-28) 23 mmol/L (21-28) Arterial Blood Base Excess -6 mmol/L (-3-3) -4 mmol/L (-3-3) FiO2 100 100 White Blood Count 12.8 x10^3/uL (4.0-11.0) Red Blood Count 2.91 x10^6/uL (4.30-5.70) Hemoglobin 8.3 g/dL (13.0-17.5) Hematocrit 25.0 % (39.0-53.0) Mean Corpuscular Volume 86 fL (79-100) Mean Corpuscular Hemoglobin 29 pg (25-35) Mean Corpuscular Hemoglobin Concent 33 g/dL (31-37) Red Cell Distribution Width 17.0 % (11.5-14.5) Platelet Count 101 x10^3/uL (140-400) Neutrophils (%) (Auto) 50 % (31-73) Lymphocytes (%) (Auto) 29 % (24-48) Monocytes (%) (Auto) 20 % (0-9) Eosinophils (%) (Auto) 0 % (0-3) Basophils (%) (Auto) 1 % (0-3) Neutrophils # (Auto) 6.4 x10^3uL (1.8-7.7) Lymphocytes # (Auto) 3.7 x10^3/uL (1.0-4.8) Monocytes # (Auto) 2.6 x10^3/uL (0.0-1.1) Eosinophils # (Auto) 0.0 x10^3/uL (0.0-0.7) Basophils # (Auto) 0.1 x10^3/uL (0.0-0.2) Sodium Level 142 mmol/L (136-145) Potassium Level 4.8 mmol/L (3.5-5.1) Chloride Level 104 mmol/L (98-107) Carbon Dioxide Level 26 mmol/L (21-32) Anion Gap 12 (6-14) Blood Urea Nitrogen 81 mg/dL (8-26) Creatinine 9.1 mg/dL (0.7-1.3) Estimated GFR (Cockcroft-Gault) 6.1 BUN/Creatinine Ratio 9 (6-20) Glucose Level 140 mg/dL (70-99) Calcium Level 7.6 mg/dL (8.5-10.1) Phosphorus Level 3.0 mg/dL (2.6-4.7) Magnesium Level 3.2 mg/dL (1.8-2.4) Total Bilirubin 1.7 mg/dL (0.2-1.0) Aspartate Amino Transf (AST/SGOT) 121 U/L (15-37) Alanine Aminotransferase (ALT/SGPT) 57 U/L (16-63) Alkaline Phosphatase 230 U/L (46-116) Total Protein 5.8 g/dL (6.4-8.2) Albumin 2.1 g/dL (3.4-5.0) Albumin/Globulin Ratio 0.6 (1.0-1.7) Test 09/01/18 09:00 O2 Saturation 94 % (92-99) Arterial Blood pH 7.46 (7.35-7.45) Arterial Blood pCO2 at Patient Temp 33 mmHg (35-46) Arterial Blood pO2 at Patient Temp 81 mmHg (75-108) Arterial Blood HCO3 23 mmol/L (21-28) Arterial Blood Base Excess 0 mmol/L (-3-3) FiO2 50 Micro Microbiology 08/26/18 Blood Culture - Preliminary, Resulted NO GROWTH AFTER 1 DAY CSF wbc 112 Objective Assessment 1. Tick-borne illness, suspected. with h/o tick bite 3 weeks ago at [place] 2. Lactic acidosis. 3. Fever. 4. Bandemia. 5. Acute hepatic injury. 6. Acute kidney injury. 7. Thrombocytopenia. 8. Hemochromatosis. 9. LLE dermatitis improving, ? poison [place],resolving with local treatment 10 Encephalitis Plan Plan of Care cont doxy, add zosyn Ehrlichiae Ab neg RMSF neg, though need convalescent serology [place] pending HSV PCR neg D/w D/w nursing MRI neg KELBY PARKER MD September 01, 2018 13:37
[2018-09-01] MEDS: PIPERACILLIN/TAZOBACTAM 2.25 GM in IV NORMAL SALINE 50ML 50 ML IV SCH ×2 (15:01→20:03)
[2018-09-01] MEDS ORDERED: TOTAL PARENTERAL NUTRITION IV SCH ×8 (22:00)
[2018-09-01] MEDS ORDERED: AMINO ACID IV SCH ×8 (22:00)
[2018-09-01] MEDS ORDERED: [UNRECOGNIZED DRUG - OTHER] IV SCH ×8 (22:00)
[2018-09-01] MEDS ORDERED: DEXTROSE 70% IV SCH ×8 (22:00)
[2018-09-02] VITALS (25 sets, daily range): BP systolic 119–173; BP diastolic 54–83
[2018-09-02] MEDS: PIPERACILLIN/TAZOBACTAM 2.25 GM in IV NORMAL SALINE 50ML 50 ML IV SCH ×5 (00:09→18:08)
[2018-09-02] MEDS: ACETAMINOPHEN 650 MG SUPP.RECT. PR PRN (01:18)
--- NOTE | 2018-09-02 01:35 | NUR ---
Pt. temp 101.8 F--Tylenol suppository administered, and Dr. Jason Lujan paged. Dr. Lujan returned page, notified of fever/change in sepsis screen, reviewed ABX, discussed checking lactic acid, and also notified last blood cultures checked five days ago, but sputum was obtained 08/31. Orders received for blood cultures x2, and not to check lactic acid at this time. Will plan to draw 1 set of blood cultures from central line and second set peripherally, will also discuss with .
--- NOTE | 2018-09-02 02:56 | NUR ---
Midnight dose of Zosyn not administered due to delay of Doxycycline infusion. 1800 dose given at 2000 from day shift delay. Spoke with pharmacist, notifed next dose due at 0600 and discussed patient is on Hemodialysis QOD. Pharmacy advised to not to give midnight Zosyn now, but give next scheduled dose at 0600.
[2018-09-02] MEDS: PROPOFOL 100 ML IV PRN ×4 (04:49→22:10)
[2018-09-02 06:14] LABS: BASE EXCESS ABG -1 mmol/L (-3-3); HCO3 ABG 23 mmol/L (21-28); PCO2 ABG 32 mmHg (35-46); PO2 ABG 96 mmHg (75-108); SAT O2 ABG 96 % (92-99)
[2018-09-02 06:15] LABS: FIO2 ABG 40
[2018-09-02 06:21] LABS: ALBUMIN 2.2 g/dL (3.4-5.0); CALCIUM 7.8 mg/dL (8.5-10.1); CREATININE 8.3 mg/dL (0.7-1.3); GFR 6.8; PHOSPHORUS 3.1 mg/dL (2.6-4.7); POTASSIUM 4.7 mmol/L (3.5-5.1)
--- NOTE | 2018-09-02 07:22 | PDOC ---
PULMONARY PROGRESS NOTES Subjective intubated 08/31, difficult intubation, small ett secretion, on propofol, on tpn. Vitals Vital Signs Date Time Temp Pulse Resp B/P (MAP) Pulse Ox O2 Delivery O2 Flow Rate FiO2 09/02/18 06:00 82 21 119/54 (75) 100 Ventilator 09/02/18 04:00 101.0 101.0 Comments ros as mentioned as above discussed w rn, other sys otherwise neg on vent sedated HEENT: Other (nc at perrl nose clear orally intubated neck no lad no thyromegaly) Lungs: Crackles Cardiovascular: S1, S2 Abdomen: Soft, Non-tender, Other (no mass) Extremities: No Edema Skin: Warm Labs Laboratory Tests Test 08/31/18 17:45 08/31/18 22:30 09/01/18 00:10 09/01/18 06:30 Glucose (Fingerstick) 151 mg/dL (70-99) O2 Saturation 85 % (92-99) 98 % (92-99) Arterial Blood pH 7.22 (7.35-7.45) 7.30 (7.35-7.45) Arterial Blood pCO2 at Patient Temp 55 mmHg (35-46) 47 mmHg (35-46) Arterial Blood pO2 at Patient Temp 63 mmHg (75-108) 182 mmHg (75-108) Arterial Blood HCO3 22 mmol/L (21-28) 23 mmol/L (21-28) Arterial Blood Base Excess -6 mmol/L (-3-3) -4 mmol/L (-3-3) FiO2 100 100 White Blood Count 12.8 x10^3/uL (4.0-11.0) Red Blood Count 2.91 x10^6/uL (4.30-5.70) Hemoglobin 8.3 g/dL (13.0-17.5) Hematocrit 25.0 % (39.0-53.0) Mean Corpuscular Volume 86 fL (79-100) Mean Corpuscular Hemoglobin 29 pg (25-35) Mean Corpuscular Hemoglobin Concent 33 g/dL (31-37) Red Cell Distribution Width 17.0 % (11.5-14.5) Platelet Count 101 x10^3/uL (140-400) Neutrophils (%) (Auto) 50 % (31-73) Lymphocytes (%) (Auto) 29 % (24-48) Monocytes (%) (Auto) 20 % (0-9) Eosinophils (%) (Auto) 0 % (0-3) Basophils (%) (Auto) 1 % (0-3) Neutrophils # (Auto) 6.4 x10^3uL (1.8-7.7) Lymphocytes # (Auto) 3.7 x10^3/uL (1.0-4.8) Monocytes # (Auto) 2.6 x10^3/uL (0.0-1.1) Eosinophils # (Auto) 0.0 x10^3/uL (0.0-0.7) Basophils # (Auto) 0.1 x10^3/uL (0.0-0.2) Sodium Level 142 mmol/L (136-145) Potassium Level 4.8 mmol/L (3.5-5.1) Chloride Level 104 mmol/L (98-107) Carbon Dioxide Level 26 mmol/L (21-32) Anion Gap 12 (6-14) Blood Urea Nitrogen 81 mg/dL (8-26) Creatinine 9.1 mg/dL (0.7-1.3) Estimated GFR (Cockcroft-Gault) 6.1 BUN/Creatinine Ratio 9 (6-20) Glucose Level 140 mg/dL (70-99) Calcium Level 7.6 mg/dL (8.5-10.1) Phosphorus Level 3.0 mg/dL (2.6-4.7) Magnesium Level 3.2 mg/dL (1.8-2.4) Total Bilirubin 1.7 mg/dL (0.2-1.0) Aspartate Amino Transf (AST/SGOT) 121 U/L (15-37) Alanine Aminotransferase (ALT/SGPT) 57 U/L (16-63) Alkaline Phosphatase 230 U/L (46-116) Total Protein 5.8 g/dL (6.4-8.2) Albumin 2.1 g/dL (3.4-5.0) Albumin/Globulin Ratio 0.6 (1.0-1.7) Test 09/01/18 09:00 09/02/18 05:50 09/02/18 05:55 O2 Saturation 94 % (92-99) 96 % (92-99) Arterial Blood pH 7.46 (7.35-7.45) 7.46 (7.35-7.45) Arterial Blood pCO2 at Patient Temp 33 mmHg (35-46) 32 mmHg (35-46) Arterial Blood pO2 at Patient Temp 81 mmHg (75-108) 96 mmHg (75-108) Arterial Blood HCO3 23 mmol/L (21-28) 23 mmol/L (21-28) Arterial Blood Base Excess 0 mmol/L (-3-3) -1 mmol/L (-3-3) FiO2 50 40 Sodium Level 137 mmol/L (136-145) Potassium Level 4.7 mmol/L (3.5-5.1) Chloride Level 101 mmol/L (98-107) Carbon Dioxide Level 24 mmol/L (21-32) Anion Gap 12 (6-14) Blood Urea Nitrogen 68 mg/dL (8-26) Creatinine 8.3 mg/dL (0.7-1.3) Estimated GFR (Cockcroft-Gault) 6.8 Glucose Level 135 mg/dL (70-99) Calcium Level 7.8 mg/dL (8.5-10.1) Phosphorus Level 3.1 mg/dL (2.6-4.7) Magnesium Level 2.4 mg/dL (1.8-2.4) Albumin 2.2 g/dL (3.4-5.0) Laboratory Tests Test 09/01/18 09:00 09/02/18 05:50 09/02/18 05:55 O2 Saturation 94 % (92-99) 96 % (92-99) Arterial Blood pH 7.46 (7.35-7.45) 7.46 (7.35-7.45) Arterial Blood pCO2 at Patient Temp 33 mmHg (35-46) 32 mmHg (35-46) Arterial Blood pO2 at Patient Temp 81 mmHg (75-108) 96 mmHg (75-108) Arterial Blood HCO3 23 mmol/L (21-28) 23 mmol/L (21-28) Arterial Blood Base Excess 0 mmol/L (-3-3) -1 mmol/L (-3-3) FiO2 50 40 Sodium Level 137 mmol/L (136-145) Potassium Level 4.7 mmol/L (3.5-5.1) Chloride Level 101 mmol/L (98-107) Carbon Dioxide Level 24 mmol/L (21-32) Anion Gap 12 (6-14) Blood Urea Nitrogen 68 mg/dL (8-26) Creatinine 8.3 mg/dL (0.7-1.3) Estimated GFR (Cockcroft-Gault) 6.8 Glucose Level 135 mg/dL (70-99) Calcium Level 7.8 mg/dL (8.5-10.1) Phosphorus Level 3.1 mg/dL (2.6-4.7) Magnesium Level 2.4 mg/dL (1.8-2.4) Albumin 2.2 g/dL (3.4-5.0) Medications Active Scripts Medications Dose Route/Sig Max Daily Dose Days Date Category Prednisone 20 Mg Tablet 1 Tab PO DAILY 08/26/18 Reported Hydrochlorothiazide Tablet (Hydrochlorothiazide) 12.5 Mg Tablet 12.5 Mg PO DAILY 08/26/18 Reported Shilpi Allergy (Fexofenadine Hcl) 180 Mg Tablet 1 Tab PO DAILY 08/26/18 Reported Potassium Chloride 20 Meq Tablet.er 20 Meq PO DAILY 08/24/18 Rx Orphenadrine Citrate 100 Mg Tablet.er 100 Mg PO Q12HR 02/03/16 Rx Anaprox Ds (Naproxen Sodium) 550 Mg Tablet 550 Mg PO Q12HR 02/03/16 Rx Comments cxr reviewed, ett ok, b ll infilt atelectasis effusion Impression . IMPRESSION: 1. Acute hypoxemic respiratory failure, multifactorial, suspect acute lung injury from recent infection. 2. Suspect tick-borne illness. 3. Fever. 4. Lactic acidosis. 5. Acute renal failure. 6. Acute hepatic injury. 7. Thrombocytopenia, improving. 8. Hemochromatosis. 9. ACUTE TOXIC MET ENCEPH POA 10 DYSPHAGIA 11.ENCEPHALITIS Plan . cont vent support until more alert, setting reviewed, abg, cxr reviewed, fu sputum cx difficult intubation, need upper airway test bf sbt when ready cont doxy, id added zosyn Ehrlichiae Ab neg RMSF neg, though need convalescent serology [place] pending HSV PCR neg D/W RN, BERHANE,MIGUEL A OVALLES September 02, 2018 07:22
[2018-09-02] MEDS: CHLORHEXIDINE 0.12% 15 ML MOUTHWASH. MM SCH ×2 (08:09→20:31)
[2018-09-02] MEDS: IPRATRPIUM/ALBUTEROL 0.5/2.5MG 3 ML NEBU. NEB SCH ×4 (08:25→20:19)
--- NOTE | 2018-09-02 08:25 | PDOC ---
SURGICAL PROGRESS NOTE Subjective Pt intubated but does move some Vital Signs Vital Signs Date Time Temp Pulse Resp B/P (MAP) Pulse Ox O2 Delivery O2 Flow Rate FiO2 09/02/18 08:11 22 100 09/02/18 06:00 82 119/54 (75) Ventilator 09/02/18 04:00 101.0 101.0 I&O Intake and Output 09/02/18 07:00 Intake Total 2293 ml Output Total 537 ml Balance 1756 ml Intake Oral 0 ml IV Total 2293 ml Output Urine Total 37 ml Gastric Drainage Total 500 ml PATIENT HAS A WHITMAN: Yes (accurate i and O) General: No acute distress HEENT: Other (NGT with bilious output) Abdomen: Soft, No tenderness Labs Laboratory Tests Test 08/31/18 17:45 08/31/18 22:30 09/01/18 00:10 09/01/18 06:30 Glucose (Fingerstick) 151 mg/dL (70-99) O2 Saturation 85 % (92-99) 98 % (92-99) Arterial Blood pH 7.22 (7.35-7.45) 7.30 (7.35-7.45) Arterial Blood pCO2 at Patient Temp 55 mmHg (35-46) 47 mmHg (35-46) Arterial Blood pO2 at Patient Temp 63 mmHg (75-108) 182 mmHg (75-108) Arterial Blood HCO3 22 mmol/L (21-28) 23 mmol/L (21-28) Arterial Blood Base Excess -6 mmol/L (-3-3) -4 mmol/L (-3-3) FiO2 100 100 White Blood Count 12.8 x10^3/uL (4.0-11.0) Red Blood Count 2.91 x10^6/uL (4.30-5.70) Hemoglobin 8.3 g/dL (13.0-17.5) Hematocrit 25.0 % (39.0-53.0) Mean Corpuscular Volume 86 fL (79-100) Mean Corpuscular Hemoglobin 29 pg (25-35) Mean Corpuscular Hemoglobin Concent 33 g/dL (31-37) Red Cell Distribution Width 17.0 % (11.5-14.5) Platelet Count 101 x10^3/uL (140-400) Neutrophils (%) (Auto) 50 % (31-73) Lymphocytes (%) (Auto) 29 % (24-48) Monocytes (%) (Auto) 20 % (0-9) Eosinophils (%) (Auto) 0 % (0-3) Basophils (%) (Auto) 1 % (0-3) Neutrophils # (Auto) 6.4 x10^3uL (1.8-7.7) Lymphocytes # (Auto) 3.7 x10^3/uL (1.0-4.8) Monocytes # (Auto) 2.6 x10^3/uL (0.0-1.1) Eosinophils # (Auto) 0.0 x10^3/uL (0.0-0.7) Basophils # (Auto) 0.1 x10^3/uL (0.0-0.2) Sodium Level 142 mmol/L (136-145) Potassium Level 4.8 mmol/L (3.5-5.1) Chloride Level 104 mmol/L (98-107) Carbon Dioxide Level 26 mmol/L (21-32) Anion Gap 12 (6-14) Blood Urea Nitrogen 81 mg/dL (8-26) Creatinine 9.1 mg/dL (0.7-1.3) Estimated GFR (Cockcroft-Gault) 6.1 BUN/Creatinine Ratio 9 (6-20) Glucose Level 140 mg/dL (70-99) Calcium Level 7.6 mg/dL (8.5-10.1) Phosphorus Level 3.0 mg/dL (2.6-4.7) Magnesium Level 3.2 mg/dL (1.8-2.4) Total Bilirubin 1.7 mg/dL (0.2-1.0) Aspartate Amino Transf (AST/SGOT) 121 U/L (15-37) Alanine Aminotransferase (ALT/SGPT) 57 U/L (16-63) Alkaline Phosphatase 230 U/L (46-116) Total Protein 5.8 g/dL (6.4-8.2) Albumin 2.1 g/dL (3.4-5.0) Albumin/Globulin Ratio 0.6 (1.0-1.7) Test 09/01/18 09:00 09/02/18 05:50 09/02/18 05:55 O2 Saturation 94 % (92-99) 96 % (92-99) Arterial Blood pH 7.46 (7.35-7.45) 7.46 (7.35-7.45) Arterial Blood pCO2 at Patient Temp 33 mmHg (35-46) 32 mmHg (35-46) Arterial Blood pO2 at Patient Temp 81 mmHg (75-108) 96 mmHg (75-108) Arterial Blood HCO3 23 mmol/L (21-28) 23 mmol/L (21-28) Arterial Blood Base Excess 0 mmol/L (-3-3) -1 mmol/L (-3-3) FiO2 50 40 Sodium Level 137 mmol/L (136-145) Potassium Level 4.7 mmol/L (3.5-5.1) Chloride Level 101 mmol/L (98-107) Carbon Dioxide Level 24 mmol/L (21-32) Anion Gap 12 (6-14) Blood Urea Nitrogen 68 mg/dL (8-26) Creatinine 8.3 mg/dL (0.7-1.3) Estimated GFR (Cockcroft-Gault) 6.8 Glucose Level 135 mg/dL (70-99) Calcium Level 7.8 mg/dL (8.5-10.1) Phosphorus Level 3.1 mg/dL (2.6-4.7) Magnesium Level 2.4 mg/dL (1.8-2.4) Albumin 2.2 g/dL (3.4-5.0) Laboratory Tests Test 09/01/18 09:00 09/02/18 05:50 09/02/18 05:55 O2 Saturation 94 % (92-99) 96 % (92-99) Arterial Blood pH 7.46 (7.35-7.45) 7.46 (7.35-7.45) Arterial Blood pCO2 at Patient Temp 33 mmHg (35-46) 32 mmHg (35-46) Arterial Blood pO2 at Patient Temp 81 mmHg (75-108) 96 mmHg (75-108) Arterial Blood HCO3 23 mmol/L (21-28) 23 mmol/L (21-28) Arterial Blood Base Excess 0 mmol/L (-3-3) -1 mmol/L (-3-3) FiO2 50 40 Sodium Level 137 mmol/L (136-145) Potassium Level 4.7 mmol/L (3.5-5.1) Chloride Level 101 mmol/L (98-107) Carbon Dioxide Level 24 mmol/L (21-32) Anion Gap 12 (6-14) Blood Urea Nitrogen 68 mg/dL (8-26) Creatinine 8.3 mg/dL (0.7-1.3) Estimated GFR (Cockcroft-Gault) 6.8 Glucose Level 135 mg/dL (70-99) Calcium Level 7.8 mg/dL (8.5-10.1) Phosphorus Level 3.1 mg/dL (2.6-4.7) Magnesium Level 2.4 mg/dL (1.8-2.4) Albumin 2.2 g/dL (3.4-5.0) Problem List Problems Medical Problems: (1) Acute renal failure Status: Acute Assessment/Plan ileus cont ngt no surgical plans d/w pt's JORGE A CHRISTIANSON MD September 02, 2018 08:25
[2018-09-02] MEDS: LACTOBACILLUS RHAMNOSUS GG 1 CAPSULE. PO SCH ×2 (09:00→20:32)
--- NOTE | 2018-09-02 09:11 | RAD ---
PORTABLE CHEST 1V History: Intubated Comparison: September 01, 2018 Findings: Single view of the chest is submitted. There is endotracheal tube with tip about 3 cm from melissa, enteric catheter coursing into the stomach with tip not fully seen, right internal jugular dialysis catheter with tip near the cavoatrial atrial junction, and another right internal jugular venous catheter with tip in the inferior aspect of the superior vena cava. Pericardial cardiac silhouette is borderline enlarged although stable. There is residual interstitial opacity at lung bases bilaterally overall similar. There could be a very small right pleural effusion as seen previously. No pneumothorax is identified. Impression: 1. There are support catheters and tubes as stated. There may be very small right pleural effusion. There is residual interstitial opacity lung bases bilaterally. Electronically signed by: Kevin Walden MD (09/02/2018 9:08 AM) [id number]
[2018-09-02] MEDS: TPN PER PHARMACY MC PRN (10:23)
[2018-09-02] MEDS: DOXYCYCLINE HYCLATE 100 MG in IV DEXTROSE 5% 100ML 100 ML IV SCH ×2 (10:26→20:32)
--- NOTE | 2018-09-02 10:27 | NUR ---
Pharmacy TPN Dosing Note S: STACIE ALEGRIA is a 52 year old M Currently receiving Central Continuous TPN started 08/30/18 B:Pertinent PMH: NPO; gastric distention Height: 5 feet, 8 inches Weight: 100.413637 kg Current diet: NPO LABS: Sodium: 137 Potassium: 4.7 Chloride: 101 Calcium: 7.8 Corrected Calcium: 9.24 Magnesium: 2.4 CO2: 24 SCr: 8.3 Glucose: 135 Albumin: 2.2 AST: 121 ALT: 57 TPN FORMULA: TPN TYPE: Central Continuous AMINO ACIDS: 100 gm DEXTROSE: 295 gm LIPIDS: 0 gm SODIUM CHLORIDE: 110 mEq SODIUM ACETATE: mEq SODIUM PHOSPHATE: mmol POTASSIUM CHLORIDE: 50 mEq POTASSIUM ACETATE: mEq POTASSIUM PHOSPHATE: 10 mmol MAGNESIUM: 3 mEq CALCIUM: 10 mEq INSULIN: units MULTIPLE VITAMIN: 10 ml TRACE ELEMENTS: 1 ml(s) TPN PLAN: ADD magso4 3MEQ, INCREASE NACL TO 110 MEQ. R: Continue TPN AT 63ML/HR Will monitor electrolytes, glucose, and tolerance to TPN. BALBIR HUMPHREY [facility], 09/02/18 1020
--- NOTE | 2018-09-02 11:23 | PDOC ---
SUBJECTIVE ROS Follow-up for acute renal failure/ATN Patient remains intubated sedated on the vent currently. Unable to get review of systems OBJECTIVE Vital Signs Vital Signs Date Time Temp Pulse Resp B/P (MAP) Pulse Ox O2 Delivery O2 Flow Rate FiO2 09/02/18 11:00 85 22 146/80 (102) 100 Ventilator 09/02/18 08:00 98.8 98.8 I & 0 Intake and Output 09/02/18 07:00 Intake Total 2293 ml Output Total 537 ml Balance 1756 ml Intake Oral 0 ml IV Total 2293 ml Output Urine Total 37 ml Gastric Drainage Total 500 ml PHYSICAL EXAM Physical Exam GEN: Sedated and intubated on the vent,In no distress EYES: Sclera anicteric, Conjunctiva Normal EN: No EN Drainage, Mucous Membranes moist, orally intubated NECK: no JVD, no JVP, Supple, no palpable Thyromegaly CVS: S1S2, no Murmur, No Gallop, No Rub,+ Edema RESP: Rare Rales, occasional upper respiratory Rhonchi, no Acc. Muscle Use GI: BS rare, hypoactive, NO Bruit, Non Tender, Non Distended : No CVA tenderness, no Suprapubic Tenderness DIAGNOSIS/ASSESSMENT Assessment & Plan ARF/ ATN : Current fluid and E-lyte status does not necessitate emergent need for dialysis. Will re-evaluate for dialysis in the am and continue on Monday schedule. ANEMIA in the setting of renal failure (worse today); Aranap as ordered, Transfuse with next HD as needed if hemoglobin drops below 7 Nutrition: Continue TPN for now. SIRS/sepsis: Appears to be improving overall Ongoing ileus: Attempt at tube feeds at some point of time may be required. Azotemia: May need daily dialysis in the setting of ongoing TPN use Discussed Plan of Care with family ( ) at bedside COMMENT/RELEVANT DATA Meds Current Medications Medications (Trade) Dose Ordered Sig/Noemi Start Time Stop Time Status Last Admin Dose Admin Acetaminophen (Tylenol Supp) 650 mg PRN Q6HRS PRN 08/27/18 21:15 09/02/18 01:18 650 MG Acetaminophen (Tylenol) 650 mg PRN Q6HRS PRN 08/27/18 21:15 Acyclovir Sodium 340 mg/Dextrose 106.8 ml @ 106.8 mls/ hr Q12HR 08/30/18 09:00 09/01/18 13:37 DC 09/01/18 11:05 106.8 MLS/HR Albumin Human 200 ml @ 200 mls/hr 1X PRN PRN 08/28/18 14:00 08/28/18 14:50 200 MLS/HR Albuterol/ Ipratropium (Duoneb) 3 ml 1X ONCE 09/01/18 01:00 09/01/18 01:01 DC 09/01/18 01:10 3 ML Atropine Sulfate (ATROPINE 1mg SYRINGE) 1 mg STK-MED ONCE 08/31/18 22:58 08/31/18 22:59 DC Aztreonam (Azactam) 2 gm 1X ONCE 08/25/18 21:15 08/25/18 21:16 DC 08/25/18 21:15 2 GM Benzocaine (Hurricaine One) 1 spray 1X STAT 08/28/18 10:16 08/28/18 10:19 DC 08/28/18 10:16 1 SPRAY Ceftriaxone Sodium (Rocephin) 1 gm 1X ONCE 08/25/18 20:30 08/25/18 20:31 DC 08/25/18 20:36 1 GM Chlorhexidine Gluconate (Peridex) 15 ml BID 09/01/18 09:00 09/02/18 08:09 15 ML Daptomycin 610 mg/ Sodium Chloride 50 ml @ 100 mls/hr Q48H 08/30/18 16:00 08/30/18 16:00 DC Doxycycline Hyclate 100 mg/ Dextrose 100 ml @ 50 mls/hr Q12HR 08/26/18 09:00 09/02/18 10:26 50 MLS/HR Famotidine (Pepcid Vial) 20 mg Q48H 09/03/18 21:00 Famotidine (Pepcid) 20 mg Q48H 08/29/18 09:00 08/29/18 11:29 DC Fentanyl Citrate 30 ml @ 0 mls/hr CONT PRN 09/01/18 00:00 09/02/18 08:11 2.5 MLS/HR Fentanyl Citrate (Fentanyl 2ml Vial) 50 mcg PRN Q4HRS PRN 08/28/18 15:30 08/28/18 21:44 50 MCG Haloperidol (Haldol) 2 mg PRN QID PRN 08/31/18 08:00 08/31/18 12:43 DC Haloperidol Lactate (HALDOL 2mg ORAL CONC) 2 mg PRN QID PRN 08/31/18 12:43 Haloperidol Lactate (Haldol Inj) 5 mg PRN Q6HRS PRN 08/28/18 12:00 08/29/18 20:31 5 MG Heparin Sodium (Porcine) (Heparin Sodium) 10,000 unit STK-MED ONCE 08/26/18 12:49 08/26/18 12:50 DC Ibuprofen (Motrin) 600 mg 1X ONCE 08/25/18 19:45 08/25/18 19:49 DC 08/25/18 20:38 600 MG Info (PHARMACY MONITORING -- do not chart) 1 each PRN DAILY PRN 09/01/18 11:00 Info (Tpn Per Pharmacy) 1 each PRN DAILY PRN 08/30/18 12:45 09/02/18 10:23 1 EACH Lactobacillus Rhamnosus (Culturelle) 1 cap BID 08/26/18 21:00 08/28/18 08:01 1 CAP Lidocaine HCl (Glydo (Lidocaine) Jelly) 1 meng 1X STAT 08/28/18 10:16 08/28/18 10:19 DC 08/28/18 10:16 1 MENG Lidocaine/Sodium Bicarbonate (Buffered Lidocaine 1%) 3 ml 1X ONCE 08/28/18 10:30 08/28/18 10:31 DC Magnesium Sulfate 50 ml @ 25 mls/hr 1X ONCE 08/25/18 21:15 08/25/18 23:14 DC 08/25/18 23:51 25 MLS/HR Meropenem 500 mg/ Sodium Chloride 50 ml @ 100 mls/hr DAILY 08/26/18 09:00 08/30/18 08:17 DC 08/29/18 10:13 100 MLS/HR Midazolam HCl 100 ml @ 0 mls/hr CONT PRN 09/01/18 00:00 Norepinephrine Bitartrate 250 ml @ 0 mls/hr CONT PRN 08/26/18 09:15 08/30/18 17:20 DC 08/27/18 10:21 1.88 MLS/HR Ondansetron HCl (Zofran) 4 mg PRN Q6HRS PRN 08/31/18 08:00 Piperacillin Sod/ Tazobactam Sod 2.25 gm/Sodium Chloride 50 ml @ 100 mls/hr Q6HRS 09/01/18 14:00 09/02/18 06:01 100 MLS/HR Piperacillin Sod/ Tazobactam Sod 4.5 gm/Sodium Chloride 100 ml @ 200 mls/hr 1X ONCE 08/25/18 21:15 08/25/18 21:44 DC Propofol 100 ml @ 0 mls/hr CONT PRN 09/01/18 00:00 09/02/18 10:26 12.271 MLS/HR Sodium Chloride (Normal Saline Flush) 10 ml 1X PRN PRN 09/01/18 07:00 09/02/18 06:59 DC Sodium Chloride 90 meq/Potassium Chloride 50 meq/ Potassium Phosphate 10 mmol/ Calcium Gluconate 10 meq/ Multivitamins 10 ml/Chromium/ Copper/Manganese/ Seleni/Zn 1 ml/ Total Parenteral Nutrition/Amino Acids/Dextrose 1,512 ml @ 63 mls/hr TPN CONT 09/01/18 22:00 09/02/18 21:59 09/01/18 22:11 63 MLS/HR Sodium Chloride 90 meq/Potassium Chloride 50 meq/ Potassium Phosphate 3 mmol/ Magnesium Sulfate 10 meq/Calcium Gluconate 10 meq/ Multivitamins 10 ml/Chromium/ Copper/Manganese/ Seleni/Zn 1 ml/ Total Parenteral Nutrition/Amino Acids/Dextrose/ Fat Emulsion Intravenous 1,512 ml @ 63 mls/hr TPN CONT 08/30/18 22:00 08/31/18 21:59 DC 08/30/18 21:40 63 MLS/HR Sodium Chloride 90 meq/Potassium Chloride 50 meq/ Potassium Phosphate 5 mmol/ Magnesium Sulfate 3 meq/Calcium Gluconate 10 meq/ Multivitamins 10 ml/Chromium/ Copper/Manganese/ Seleni/Zn 1 ml/ Total Parenteral Nutrition/Amino Acids/Dextrose 1,512 ml @ 63 mls/hr TPN CONT 08/31/18 22:00 09/01/18 21:59 DC 08/31/18 20:59 63 MLS/HR Sodium Chloride 110 meq/Potassium Chloride 50 meq/ Potassium Phosphate 10 mmol/ Calcium Gluconate 10 meq/ Multivitamins 10 ml/Chromium/ Copper/Manganese/ Seleni/Zn 1 ml/ Magnesium Sulfate 3 meq/Total Parenteral Nutrition/Amino Acids/Dextrose 1,512 ml @ 63 mls/hr TPN CONT 09/02/18 22:00 09/03/18 21:59 Succinylcholine Chloride (Anectine) 200 mg 1X ONCE 09/01/18 01:15 09/01/18 01:16 DC 08/31/18 23:04 200 MG Vancomycin HCl 2 gm/Sodium Chloride 500 ml @ 250 mls/hr 1X ONCE 08/25/18 21:30 08/25/18 23:29 DC 08/25/18 23:10 250 MLS/HR Lab Laboratory Tests Test 09/02/18 05:50 09/02/18 05:55 Sodium Level 137 mmol/L (136-145) Potassium Level 4.7 mmol/L (3.5-5.1) Chloride Level 101 mmol/L (98-107) Carbon Dioxide Level 24 mmol/L (21-32) Anion Gap 12 (6-14) Blood Urea Nitrogen 68 mg/dL (8-26) Creatinine 8.3 mg/dL (0.7-1.3) Estimated GFR (Cockcroft-Gault) 6.8 Glucose Level 135 mg/dL (70-99) Calcium Level 7.8 mg/dL (8.5-10.1) Phosphorus Level 3.1 mg/dL (2.6-4.7) Magnesium Level 2.4 mg/dL (1.8-2.4) Albumin 2.2 g/dL (3.4-5.0) O2 Saturation 96 % (92-99) Arterial Blood pH 7.46 (7.35-7.45) Arterial Blood pCO2 at Patient Temp 32 mmHg (35-46) Arterial Blood pO2 at Patient Temp 96 mmHg (75-108) Arterial Blood HCO3 23 mmol/L (21-28) Arterial Blood Base Excess -1 mmol/L (-3-3) FiO2 40 Results All relevant outside records, renal labs, imaging studies, telemetry/EKG's were reviewed. BRADY PARKER MD September 02, 2018 11:23
--- NOTE | 2018-09-02 12:10 | PDOC ---
Infectious Disease Note Subjective Subjective intubated on vent ROS ROS no n/v/d/ fever+ Vital Sign Vital Signs Vital Signs Date Time Temp Pulse Resp B/P (MAP) Pulse Ox O2 Delivery O2 Flow Rate FiO2 09/02/18 11:00 85 22 146/80 (102) 100 Ventilator 09/02/18 08:00 98.8 98.8 Physical Exam PHYSICAL EXAM GENERAL:sedated on vent HEENT: Pupils equally round, reactive. Normal conjunctivae. Oral cavity: Pharynx pink, dry. NECK: Supple. LUNGS: Clear to auscultation. HEART: S1 and S2. ABDOMEN: Obese, soft, nontender with bowel sounds present. EXTREMITIES: No gross edema or cyanosis. SKIN: Warm without rash. Left knee has several scabs/scarring. NEUROLOGIC: sedated on vent Labs Lab Laboratory Tests Test 09/02/18 05:50 09/02/18 05:55 Sodium Level 137 mmol/L (136-145) Potassium Level 4.7 mmol/L (3.5-5.1) Chloride Level 101 mmol/L (98-107) Carbon Dioxide Level 24 mmol/L (21-32) Anion Gap 12 (6-14) Blood Urea Nitrogen 68 mg/dL (8-26) Creatinine 8.3 mg/dL (0.7-1.3) Estimated GFR (Cockcroft-Gault) 6.8 Glucose Level 135 mg/dL (70-99) Calcium Level 7.8 mg/dL (8.5-10.1) Phosphorus Level 3.1 mg/dL (2.6-4.7) Magnesium Level 2.4 mg/dL (1.8-2.4) Albumin 2.2 g/dL (3.4-5.0) O2 Saturation 96 % (92-99) Arterial Blood pH 7.46 (7.35-7.45) Arterial Blood pCO2 at Patient Temp 32 mmHg (35-46) Arterial Blood pO2 at Patient Temp 96 mmHg (75-108) Arterial Blood HCO3 23 mmol/L (21-28) Arterial Blood Base Excess -1 mmol/L (-3-3) FiO2 40 Micro Microbiology 08/26/18 Blood Culture - Preliminary, Resulted NO GROWTH AFTER 1 DAY CSF wbc 112 Objective Assessment 1. Tick-borne illness, possible, though h/o tick bite 3 weeks ago at [place] 2. Lactic acidosis. 3. Fever. 4. Bandemia. 5. Acute hepatic injury. 6. Acute kidney injury. 7. Thrombocytopenia. 8. Hemochromatosis. 9. LLE dermatitis improving, ? poison [place],resolving with local treatment 10 Encephalitis Plan Plan of Care cont doxy, josé antonion Ehrlichiae Ab neg RMSF neg, though need convalescent serology [place] IgG +, IgM neg, old exposure HSV PCR neg Arboviral panel not available Enteroviral pcr not available D/w D/w nursing MRI neg KELBY PARKER MD September 02, 2018 12:10
--- NOTE | 2018-09-02 12:59 | PDOC ---
[employer] PROGRESS NOTE Chief Complaint Chief Complaint Sepsis Encephalopathy Encephalitis of undetermined etiology Respiratory failure Probable tick-borne illness, suspected. with h/o tick bite 3 weeks ago at [place] Lactic acidosis. Fever. Bandemia. Acute hepatic injur Acute kidney injury. Thrombocytopenia. Hemochromatosis. LLE dermatitis improving, ? poison [place],resolving with local treatment History of Present Illness History of Present Illness Patient seen and examined in the ICU Discussed with family and nurses Reviewed MRI report with his and the nurse He is extremely ill Dr. baxter is not planning on any dialysis today but he did have yesterday I reviewed the notes and check labs Patient is on the vent assist control/ with 40% and 5 of PEEP Vitals Vitals Vital Signs Date Time Temp Pulse Resp B/P (MAP) Pulse Ox O2 Delivery O2 Flow Rate FiO2 09/02/18 12:17 100 Ventilator 09/02/18 12:00 99.1 76 18 145/66 (92) 99.1 Physical Exam Physical Exam GENERAL:sedated on vent HEENT: Pupils equally round, reactive. Normal conjunctivae. Oral cavity: Pharynx pink, dry. NECK: Supple. LUNGS: Clear to auscultation. HEART: S1 and S2. ABDOMEN: Obese, soft, nontender with bowel sounds present. EXTREMITIES: No gross edema or cyanosis. SKIN: Warm without rash. Left knee has several scabs/scarring. NEUROLOGIC: sedated on vent General: No acute distress Heart: Regular rate, Normal S1, Normal S2 Lungs: Crackles Abdomen: Soft, No tenderness Extremities: No clubbing, No cyanosis, No edema Skin: No significant lesion, Other (healing rash and excoriations on Left lower extremity. No obvious petechiae) Labs Labs: Laboratory Tests Test 09/02/18 05:50 09/02/18 05:55 Sodium Level 137 mmol/L (136-145) Potassium Level 4.7 mmol/L (3.5-5.1) Chloride Level 101 mmol/L (98-107) Carbon Dioxide Level 24 mmol/L (21-32) Anion Gap 12 (6-14) Blood Urea Nitrogen 68 mg/dL (8-26) Creatinine 8.3 mg/dL (0.7-1.3) Estimated GFR (Cockcroft-Gault) 6.8 Glucose Level 135 mg/dL (70-99) Calcium Level 7.8 mg/dL (8.5-10.1) Phosphorus Level 3.1 mg/dL (2.6-4.7) Magnesium Level 2.4 mg/dL (1.8-2.4) Albumin 2.2 g/dL (3.4-5.0) O2 Saturation 96 % (92-99) Arterial Blood pH 7.46 (7.35-7.45) Arterial Blood pCO2 at Patient Temp 32 mmHg (35-46) Arterial Blood pO2 at Patient Temp 96 mmHg (75-108) Arterial Blood HCO3 23 mmol/L (21-28) Arterial Blood Base Excess -1 mmol/L (-3-3) FiO2 40 Review of Systems Review of Systems Unable to obtain patient is intubated Assessment and Plan Assessmemt and Plan Problems Medical Problems: (1) Acute renal failure Status: Acute Sepsis Encephalopathy Encephalitis of undetermined etiology Respiratory failure Probable tick-borne illness, suspected. with h/o tick bite 3 weeks ago at [place] Lactic acidosis. Fever. Bandemia. Acute hepatic injur Acute kidney injury. Thrombocytopenia. Hemochromatosis. LLE dermatitis improving, ? poison [place],resolving with local treatment Plan Vent weaning TPN (hope to change to NG feeds if ileus resolves) DVT prophylaxis Pulm ID and nephrology are following cont doxy, zosyn Ehrlichiae Ab neg RMSF neg, though need convalescent serology [place] IgG +, IgM neg, old exposure HSV PCR neg Arboviral panel not available Enteroviral pcr not available This is a critically ill patient Prognosis guarded Total time 33 minutes Comment Review of Relevant I have reviewed the following items gera (where applicable) has been applied. Labs Laboratory Tests Test 08/31/18 17:45 08/31/18 22:30 09/01/18 00:10 09/01/18 06:30 Glucose (Fingerstick) 151 mg/dL (70-99) O2 Saturation 85 % (92-99) 98 % (92-99) Arterial Blood pH 7.22 (7.35-7.45) 7.30 (7.35-7.45) Arterial Blood pCO2 at Patient Temp 55 mmHg (35-46) 47 mmHg (35-46) Arterial Blood pO2 at Patient Temp 63 mmHg (75-108) 182 mmHg (75-108) Arterial Blood HCO3 22 mmol/L (21-28) 23 mmol/L (21-28) Arterial Blood Base Excess -6 mmol/L (-3-3) -4 mmol/L (-3-3) FiO2 100 100 White Blood Count 12.8 x10^3/uL (4.0-11.0) Red Blood Count 2.91 x10^6/uL (4.30-5.70) Hemoglobin 8.3 g/dL (13.0-17.5) Hematocrit 25.0 % (39.0-53.0) Mean Corpuscular Volume 86 fL (79-100) Mean Corpuscular Hemoglobin 29 pg (25-35) Mean Corpuscular Hemoglobin Concent 33 g/dL (31-37) Red Cell Distribution Width 17.0 % (11.5-14.5) Platelet Count 101 x10^3/uL (140-400) Neutrophils (%) (Auto) 50 % (31-73) Lymphocytes (%) (Auto) 29 % (24-48) Monocytes (%) (Auto) 20 % (0-9) Eosinophils (%) (Auto) 0 % (0-3) Basophils (%) (Auto) 1 % (0-3) Neutrophils # (Auto) 6.4 x10^3uL (1.8-7.7) Lymphocytes # (Auto) 3.7 x10^3/uL (1.0-4.8) Monocytes # (Auto) 2.6 x10^3/uL (0.0-1.1) Eosinophils # (Auto) 0.0 x10^3/uL (0.0-0.7) Basophils # (Auto) 0.1 x10^3/uL (0.0-0.2) Sodium Level 142 mmol/L (136-145) Potassium Level 4.8 mmol/L (3.5-5.1) Chloride Level 104 mmol/L (98-107) Carbon Dioxide Level 26 mmol/L (21-32) Anion Gap 12 (6-14) Blood Urea Nitrogen 81 mg/dL (8-26) Creatinine 9.1 mg/dL (0.7-1.3) Estimated GFR (Cockcroft-Gault) 6.1 BUN/Creatinine Ratio 9 (6-20) Glucose Level 140 mg/dL (70-99) Calcium Level 7.6 mg/dL (8.5-10.1) Phosphorus Level 3.0 mg/dL (2.6-4.7) Magnesium Level 3.2 mg/dL (1.8-2.4) Total Bilirubin 1.7 mg/dL (0.2-1.0) Aspartate Amino Transf (AST/SGOT) 121 U/L (15-37) Alanine Aminotransferase (ALT/SGPT) 57 U/L (16-63) Alkaline Phosphatase 230 U/L (46-116) Total Protein 5.8 g/dL (6.4-8.2) Albumin 2.1 g/dL (3.4-5.0) Albumin/Globulin Ratio 0.6 (1.0-1.7) Test 09/01/18 09:00 09/02/18 05:50 09/02/18 05:55 O2 Saturation 94 % (92-99) 96 % (92-99) Arterial Blood pH 7.46 (7.35-7.45) 7.46 (7.35-7.45) Arterial Blood pCO2 at Patient Temp 33 mmHg (35-46) 32 mmHg (35-46) Arterial Blood pO2 at Patient Temp 81 mmHg (75-108) 96 mmHg (75-108) Arterial Blood HCO3 23 mmol/L (21-28) 23 mmol/L (21-28) Arterial Blood Base Excess 0 mmol/L (-3-3) -1 mmol/L (-3-3) FiO2 50 40 Sodium Level 137 mmol/L (136-145) Potassium Level 4.7 mmol/L (3.5-5.1) Chloride Level 101 mmol/L (98-107) Carbon Dioxide Level 24 mmol/L (21-32) Anion Gap 12 (6-14) Blood Urea Nitrogen 68 mg/dL (8-26) Creatinine 8.3 mg/dL (0.7-1.3) Estimated GFR (Cockcroft-Gault) 6.8 Glucose Level 135 mg/dL (70-99) Calcium Level 7.8 mg/dL (8.5-10.1) Phosphorus Level 3.1 mg/dL (2.6-4.7) Magnesium Level 2.4 mg/dL (1.8-2.4) Albumin 2.2 g/dL (3.4-5.0) Laboratory Tests Test 09/02/18 05:50 09/02/18 05:55 Sodium Level 137 mmol/L (136-145) Potassium Level 4.7 mmol/L (3.5-5.1) Chloride Level 101 mmol/L (98-107) Carbon Dioxide Level 24 mmol/L (21-32) Anion Gap 12 (6-14) Blood Urea Nitrogen 68 mg/dL (8-26) Creatinine 8.3 mg/dL (0.7-1.3) Estimated GFR (Cockcroft-Gault) 6.8 Glucose Level 135 mg/dL (70-99) Calcium Level 7.8 mg/dL (8.5-10.1) Phosphorus Level 3.1 mg/dL (2.6-4.7) Magnesium Level 2.4 mg/dL (1.8-2.4) Albumin 2.2 g/dL (3.4-5.0) O2 Saturation 96 % (92-99) Arterial Blood pH 7.46 (7.35-7.45) Arterial Blood pCO2 at Patient Temp 32 mmHg (35-46) Arterial Blood pO2 at Patient Temp 96 mmHg (75-108) Arterial Blood HCO3 23 mmol/L (21-28) Arterial Blood Base Excess -1 mmol/L (-3-3) FiO2 40 Microbiology 08/26/18 Blood Culture - Final, Complete NO GROWTH AFTER 5 DAYS 08/29/18 CSF Gram Stain - Final, Complete 08/27/18 Stool Culture - Final, Complete 08/27/18 Stool Culture Result 1 (LOTUS) - Final, Complete 08/27/18 Campylobacter Antigen Assay - Final, Complete 08/27/18 Campylobactor Result 1 - Final, Complete 08/27/18 Shiga Toxin Test - Final, Complete Medications Current Medications Sodium Chloride 1,000 ml @ 1,000 mls/hr 1X ONCE IV Last administered on 08/25/18at 20:38; Start 08/25/18 at 19:15; Stop 08/25/18 at 20:14; Status DC Ibuprofen (Motrin) 600 mg 1X ONCE PO Last administered on 08/25/18at 20:38; Start 08/25/18 at 19:45; Stop 08/25/18 at 19:49; Status DC Sodium Chloride 1,000 ml @ 1,000 mls/hr 1X ONCE IV Last administered on 08/25/18at 20:30; Start 08/25/18 at 20:30; Stop 08/25/18 at 21:29; Status DC Ceftriaxone Sodium (Rocephin) 1 gm 1X ONCE IVP Last administered on 08/25/18at 20:36; Start 08/25/18 at 20:30; Stop 08/25/18 at 20:31; Status DC Vancomycin HCl 2 gm/Sodium Chloride 500 ml @ 250 mls/hr 1X ONCE IV Last administered on 08/25/18at 23:10; Start 08/25/18 at 21:30; Stop 08/25/18 at 2 3:29; Status DC Sodium Chloride 1,000 ml @ 1,000 mls/hr 1X ONCE IV Last administered on 08/25/18at 23:51; Start 08/25/18 at 21:00; Stop 08/25/18 at 21:59; Status DC Piperacillin Sod/ Tazobactam Sod 4.5 gm/Sodium Chloride 100 ml @ 200 mls/hr 1X ONCE IV ; Start 08/25/18 at 21:15; Stop 08/25/18 at 21:44; Status DC Aztreonam (Azactam) 2 gm 1X ONCE IVP Last administered on 08/25/18at 21:15; Start 08/25/18 at 21:15; Stop 08/25/18 at 21:16; Status DC Magnesium Sulfate 50 ml @ 25 mls/hr 1X ONCE IV Last administered on 08/25/18at 23:51; Start 08/25/18 at 21:15; Stop 08/25/18 at 23:14; Status DC Ondansetron HCl (Zofran) 4 mg PRN Q8HRS PRN IV NAUSEA/VOMITING; Start 08/25/18 at 21:15; Stop 08/26/18 at 21:14; Status DC Acetaminophen (Tylenol) 650 mg PRN Q4HRS PRN PO FEVER; Start 08/25/18 at 21:15; Stop 08/26/18 at 21:14; Status DC Sodium Chloride 1,000 ml @ 125 mls/hr 1X ONCE IV Last administered on 08/25/18at 23:09; Start 08/25/18 at 21:15; Stop 08/26/18 at 05:14; Status DC Daptomycin 610 mg/ Sodium Chloride 50 ml @ 100 mls/hr QODAY IV Last administered on 08/27/18at 08:59; Start 08/27/18 at 09:00; Stop 08/28/18 at 15:40; Status DC Meropenem 500 mg/ Sodium Chloride 50 ml @ 100 mls/hr 1X ONCE IV Last administered on 08/25/18at 22:12; Start 08/25/18 at 22:00; Stop 08/25/18 at 22:29; Status DC Doxycycline Hyclate 100 mg/ Dextrose 100 ml @ 50 mls/hr Q12HR IV Last administered on 09/02/18at 10:26; Start 08/26/18 at 09:00 Meropenem 500 mg/ Sodium Chloride 50 ml @ 100 mls/hr DAILY IV Last administered on 08/29/18at 10:13; Start 08/26/18 at 09:00; Stop 08/30/18 at 08:17; Status DC Sodium Chloride (Normal Saline Flush) 10 ml QSHIFT PRN IV AFTER MEDS AND BLOOD DRAWS; Start 08/26/18 at 09:15 Norepinephrine Bitartrate 250 ml @ 0 mls/hr CONT PRN IV PER PROTOCOL Last administered on 08/27/18at 10:21; Start 08/26/18 at 09:15; Stop 08/30/18 at 17:20; Status DC Famotidine (Pepcid) 20 mg DAILY PO Last administered on 08/27/18at 08:14; Start 08/26/18 at 12:00; Stop 08/27/18 at 14:36; Status DC Sodium Chloride 1,000 ml @ 1,000 mls/hr Q1H PRN IV hypotension; Start 08/26/18 at 11:51; Stop 08/26/18 at 17:50; Status DC Sodium Chloride (Normal Saline Flush) 10 ml 1X PRN PRN IV AP catheter pack; Start 08/26/18 at 12:00; Stop 08/27/18 at 11:59; Status DC Sodium Chloride (Normal Saline Flush) 10 ml 1X PRN PRN IV TUMBLERS SUPERVISOR catheter pack; Start 08/26/18 at 12:00; Stop 08/27/18 at 11:59; Status DC Sodium Chloride 1,000 ml @ 400 mls/hr Q2H30M PRN IV PATENCY; Start 08/26/18 at 11:51; Stop 08/26/18 at 23:50; Status DC Info (PHARMACY MONITORING -- do not chart) 1 each PRN DAILY PRN MC SEE COMMENTS; Start 08/26/18 at 12:00; Status UNV Info (PHARMACY MONITORING -- do not chart) 1 each PRN DAILY PRN MC SEE COMMENTS; Start 08/26/18 at 12:00; Stop 09/01/18 at 10:59; Status DC Lidocaine/Sodium Bicarbonate (Buffered Lidocaine 1%) 4 ml 1X ONCE INJ Last administered on 08/26/18at 12:45; Start 08/26/18 at 12:45; Stop 08/26/18 at 12:48; Status DC Heparin Sodium (Porcine) (Heparin Sodium) 2,500 unit 1X ONCE INT CAT Last administered on 08/26/18at 12:45; Start 08/26/18 at 12:45; Stop 08/26/18 at 12:48; Status DC Lidocaine/Sodium Bicarbonate (Buffered Lidocaine 1%) 3 ml STK-MED ONCE .ROUTE ; Start 08/26/18 at 12:49; Stop 08/26/18 at 12:50; Status DC Heparin Sodium (Porcine) (Heparin Sodium) 10,000 unit STK-MED ONCE .ROUTE ; Start 08/26/18 at 12:49; Stop 08/26/18 at 12:50; Status DC Lactobacillus Rhamnosus (Culturelle) 1 cap BID PO Last administered on 08/28/18at 08:01; Start 08/26/18 at 21:00 Acetaminophen (Tylenol) 325 mg STK-MED ONCE PO ; Start 08/27/18 at 00:43; Stop 08/27/18 at 00:44; Status DC Sodium Chloride 1,000 ml @ 1,000 mls/hr 1X ONCE IV Last administered on 08/27/18at 11:05; Start 08/27/18 at 10:30; Stop 08/27/18 at 11:29; Status DC Sodium Chloride 1,000 ml @ 1,000 mls/hr Q1H PRN IV hypotension; Start 08/27/18 at 11:28; Stop 08/27/18 at 17:27; Status DC Albumin Human 200 ml @ 200 mls/hr 1X PRN PRN IV Hypotension; Start 08/27/18 at 11:30; Stop 08/27/18 at 17:29; Status DC Sodium Chloride (Normal Saline Flush) 10 ml 1X PRN PRN IV AP catheter pack; Start 08/27/18 at 11:30; Stop 08/28/18 at 11:29; Status DC Sodium Chloride (Normal Saline Flush) 10 ml 1X PRN PRN IV TUMBLERS SUPERVISOR catheter pack; Start 08/27/18 at 11:30; Stop 08/28/18 at 11:29; Status DC Sodium Chloride 1,000 ml @ 400 mls/hr Q2H30M PRN IV PATENCY; Start 08/27/18 at 11:28; Stop 08/27/18 at 23:27; Status DC Info (PHARMACY MONITORING -- do not chart) 1 each PRN DAILY PRN MC SEE COMMENTS; Start 08/27/18 at 11:30; Status UNV Info (PHARMACY MONITORING -- do not chart) 1 each PRN DAILY PRN MC SEE COMMENTS; Start 08/27/18 at 11:30; Status UNV Famotidine (Pepcid) 20 mg Q48H PO ; Start 08/29/18 at 09:00; Stop 08/29/18 at 11:29; Status DC Acetaminophen (Tylenol) 650 mg PRN Q6HRS PRN PO pain/fever; Start 08/27/18 at 21:15 Acetaminophen (Tylenol Supp) 650 mg PRN Q6HRS PRN [place] MILD PAIN / TEMP Last administered on 09/02/18at 01:18; Start 08/27/18 at 21:15 Fentanyl Citrate (Fentanyl 2ml Vial) 25 mcg 1X ONCE IV Last administered on 08/28/18at 08:54; Start 08/28/18 at 08:45; Stop 08/28/18 at 08:47; Status DC Lidocaine/Sodium Bicarbonate (Buffered Lidocaine 1%) 3 ml STK-MED ONCE .ROUTE ; Start 08/28/18 at 09:55; Stop 08/28/18 at 09:56; Status DC Lidocaine HCl (Glydo (Lidocaine) Jelly) 1 meng 1X STAT MM Last administered on 08/28/18at 10:16; Start 08/28/18 at 10:16; Stop 08/28/18 at 10:19; Status DC Benzocaine (Hurricaine One) 1 spray 1X STAT MM Last administered on 08/28/18at 10:16; Start 08/28/18 at 10:16; Stop 08/28/18 at 10:19; Status DC Lidocaine/Sodium Bicarbonate (Buffered Lidocaine 1%) 3 ml 1X ONCE INJ ; Start 08/28/18 at 10:30; Stop 08/28/18 at 10:31; Status DC Haloperidol Lactate (Haldol Inj) 5 mg PRN Q6HRS PRN IVP AGITATION Last administered on 08/29/18at 20:31; Start 08/28/18 at 12:00 Fentanyl Citrate (Fentanyl 2ml Vial) 50 mcg PRN Q4HRS PRN IV PAIN Last administered on 08/28/18at 21:44; Start 08/28/18 at 15:30 Sodium Chloride 1,000 ml @ 1,000 mls/hr Q1H PRN IV hypotension; Start 08/28/18 at 14:00; Stop 08/28/18 at 19:59; Status DC Albumin Human 200 ml @ 200 mls/hr 1X PRN PRN IV Hypotension Last administered on 08/28/18at 14:50; Start 08/28/18 at 14:00 Sodium Chloride 1,000 ml @ 400 mls/hr Q2H30M PRN IV PATENCY; Start 08/28/18 at 14:00; Stop 08/29/18 at 01:59; Status DC Info (PHARMACY MONITORING -- do not chart) 1 each PRN DAILY PRN MC SEE COMMENTS; Start 08/28/18 at 15:30; Status UNV Info (PHARMACY MONITORING -- do not chart) 1 each PRN DAILY PRN MC SEE COMMENTS; Start 08/28/18 at 15:30; Status UNV Daptomycin 610 mg/ Sodium Chloride 50 ml @ 100 mls/hr Q48H IV ; Start 08/30/18 at 16:00; Stop 08/30/18 at 16:00; Status DC Famotidine (Pepcid Vial) 20 mg QHS IVP Last administered on 08/31/18at 20:59; Start 08/29/18 at 21:00; Stop 09/01/18 at 11:00; Status DC Acyclovir Sodium 340 mg/Dextrose 106.8 ml @ 106.8 mls/ hr Q12HR IV Last administered on 09/01/18at 11:05; Start 08/30/18 at 09:00; Stop 09/01/18 at 13:37; Status DC Sodium Chloride 1,000 ml @ 1,000 mls/hr Q1H PRN IV hypotension; Start 08/30/18 at 11:02; Stop 08/30/18 at 17:01; Status DC Sodium Chloride 1,000 ml @ 400 mls/hr Q2H30M PRN IV PATENCY; Start 08/30/18 at 11:02; Stop 08/30/18 at 23:01; Status DC Info (PHARMACY MONITORING -- do not chart) 1 each PRN DAILY PRN MC SEE COMMENTS; Start 08/30/18 at 11:15; Status UNV Info (PHARMACY MONITORING -- do not chart) 1 each PRN DAILY PRN MC SEE COMMENTS; Start 08/30/18 at 11:15; Status UNV Info (Tpn Per Pharmacy) 1 each PRN DAILY PRN MC SEE COMMENTS Last administered on 09/02/18at 10:23; Start 08/30/18 at 12:45 Sodium Chloride 90 meq/Potassium Chloride 50 meq/ Potassium Phosphate 3 mmol/ Magnesium Sulfate 10 meq/Calcium Gluconate 10 meq/ Multivitamins 10 ml/Chromium/ Copper/Manganese/ Seleni/Zn 1 ml/ Total Parenteral Nutrition/Amino Acids/Dextrose/ Fat Emulsion Intravenous 1,512 ml @ 63 mls/hr TPN CONT IV L ast administered on 08/30/18at 21:40; Start 08/30/18 at 22:00; Stop 08/31/18 at 21:59; Status DC Ondansetron HCl (Zofran) 4 mg PRN Q6HRS PRN IV NAUSEA/VOMITING; Start 08/31/18 at 08:00 Haloperidol (Haldol) 2 mg PRN QID PRN PO AGITATION; Start 08/31/18 at 08:00; Stop 08/31/18 at 12:43; Status DC Haloperidol Lactate (HALDOL 2mg ORAL CONC) 2 mg PRN QID PRN PO AGITATION; Start 08/31/18 at 12:43 Sodium Chloride 90 meq/Potassium Chloride 50 meq/ Potassium Phosphate 5 mmol/ Magnesium Sulfate 3 meq/Calcium Gluconate 10 meq/ Multivitamins 10 ml/Chromium/ Copper/Manganese/ Seleni/Zn 1 ml/ Total Parenteral Nutrition/Amino Acids/Dextrose 1,512 ml @ 63 mls/hr TPN CONT IV Last administered on 08/31/18at 20:59; Start 08/31/18 at 22:00; Stop 09/01/18 at 21:59; Status DC Propofol 100 ml @ As Directed STK-MED ONCE IV ; Start 08/31/18 at 22:45; Stop 08/31/18 at 22:46; Status DC Succinylcholine Chloride (Anectine) 200 mg STK-MED ONCE .ROUTE ; Start 08/31/18 at 22:46; Stop 08/31/18 at 22:47; Status DC Atropine Sulfate (ATROPINE 1mg SYRINGE) 1 mg STK-MED ONCE .ROUTE ; Start 08/31/18 at 22:58; Stop 08/31/18 at 22:59; Status DC Fentanyl Citrate 30 ml @ 0 mls/hr CONT PRN IV SEE PROTOCOL Last administered on 09/02/18at 08:11; Start 09/01/18 at 00:00 Propofol 100 ml @ 0 mls/hr CONT PRN IV SEE PROTOCOL Last administered on 09/02/18at 10:26; Start 09/01/18 at 00:00 Chlorhexidine Gluconate (Peridex) 15 ml BID MM Last administered on 09/02/18at 08:09; Start 09/01/18 at 09:00 Midazolam HCl 100 ml @ 0 mls/hr CONT PRN IV SEE PROTOCOL; Start 09/01/18 at 00:00 Albuterol/ Ipratropium (Duoneb) 3 ml RTQID NEB Last administered on 09/02/18at 12:17; Start 09/01/18 at 08:00 Albuterol/ Ipratropium (Duoneb) 3 ml 1X ONCE NEB Last administered on 09/01/18at 01:10; Start 09/01/18 at 01:00; Stop 09/01/18 at 01:01; Status DC Succinylcholine Chloride (Anectine) 200 mg 1X ONCE IV Last administered on 08/31/18at 23:04; Start 09/01/18 at 01:15; Stop 09/01/18 at 01:16; Status DC Sodium Chloride 1,000 ml @ 1,000 mls/hr Q1H PRN IV hypotension; Start 09/01/18 at 07:00; Stop 09/01/18 at 12:59; Status DC Sodium Chloride (Normal Saline Flush) 10 ml 1X PRN PRN IV AP catheter pack; Start 09/01/18 at 07:00; Stop 09/02/18 at 06:59; Status DC Sodium Chloride (Normal Saline Flush) 10 ml 1X PRN PRN IV TUMBLERS SUPERVISOR catheter pack; Start 09/01/18 at 07:00; Stop 09/02/18 at 06:59; Status DC Sodium Chloride 1,000 ml @ 400 mls/hr Q2H30M PRN IV PATENCY; Start 09/01/18 at 07:00; Stop 09/01/18 at 18:59; Status DC Info (PHARMACY MONITORING -- do not chart) 1 each PRN DAILY PRN MC SEE COMMENTS; Start 09/01/18 at 11:00 Info (PHARMACY MONITORING -- do not chart) 1 each PRN DAILY PRN MC SEE COMMENTS; Start 09/01/18 at 11:00 Famotidine (Pepcid Vial) 20 mg Q48H IVP ; Start 09/03/18 at 21:00 Sodium Chloride 90 meq/Potassium Chloride 50 meq/ Potassium Phosphate 10 mmol/ Calcium Gluconate 10 meq/ Multivitamins 10 ml/Chromium/ Copper/Manganese/ Seleni/Zn 1 ml/ Total Parenteral Nutrition/Amino Acids/Dextrose 1,512 ml @ 63 mls/hr TPN CONT IV Last administered on 09/01/18at 22:11; Start 09/01/18 at 22:00; Stop 09/02/18 at 21:59 Piperacillin Sod/ Tazobactam Sod 2.25 gm/Sodium Chloride 50 ml @ 100 mls/hr Q6HRS IV Last administered on 09/02/18at 12:40; Start 09/01/18 at 14:00 Sodium Chloride 110 meq/Potassium Chloride 50 meq/ Potassium Phosphate 10 mmol/ Calcium Gluconate 10 meq/ Multivitamins 10 ml/Chromium/ Copper/Manganese/ Seleni/Zn 1 ml/ Magnesium Sulfate 3 meq/Total Parenteral Nutrition/Amino Acids/Dextrose 1,512 ml @ 63 mls/hr TPN CONT IV ; Start 09/02/18 at 22:00; Stop 09/03/18 at 21:59 Active Scripts Active Potassium Chloride 20 Meq Tablet.er 20 Meq PO DAILY Orphenadrine Citrate 100 Mg Tablet.er 100 Mg PO Q12HR Anaprox Ds (Naproxen Sodium) 550 Mg Tablet 550 Mg PO Q12HR Reported Prednisone 20 Mg Tablet 1 Tab PO DAILY Hydrochlorothiazide Tablet (Hydrochlorothiazide) 12.5 Mg Tablet 12.5 Mg PO DAILY Shilpi Allergy (Fexofenadine Hcl) 180 Mg Tablet 1 Tab PO DAILY Vitals/I & O Vital Sign - Last 24 Hours 09/01/18 09/01/18 09/01/18 09/01/18 13:00 13:24 14:00 15:00 Temp 100.2 100.2 Pulse 82 85 88 Resp 20 22 24 B/P (MAP) 136/72 (93) 128/74 (92) 135/66 (89) Pulse Ox 99 99 97 96 O2 Delivery Ventilator Ventilator Ventilator Ventilator 09/01/18 09/01/18 09/01/18 09/01/18 16:00 16:00 16:23 17:00 Pulse 91 91 Resp 20 B/P (MAP) 125/62 (83) 155/71 (99) Pulse Ox 97 96 98 O2 Delivery Ventilator Mechanical Ventilator Ventilator Ventilator 09/01/18 09/01/18 09/01/18 09/01/18 18:00 19:00 20:00 20:00 Temp 99.2 99.2 Pulse 88 88 91 Resp 18 22 B/P (MAP) 143/68 (93) 145/68 (93) 158/75 (102) Pulse Ox 98 97 97 O2 Delivery Ventilator Ventilator Ventilator Mechanical Ventilator 09/01/18 09/01/18 09/01/18 09/01/18 20:08 21:00 21:15 22:00 Pulse 88 86 Resp 21 B/P (MAP) 140/69 (92) 145/68 (93) Pulse Ox 100 100 100 100 O2 Delivery Ventilator Ventilator Ventilator Ventilator 09/01/18 09/02/18 09/02/18 09/02/18 23:00 00:00 00:00 00:05 Pulse 90 87 Resp 21 B/P (MAP) 137/75 (95) 154/73 (100) Pulse Ox 100 100 100 O2 Delivery Ventilator Mechanical Ventilator Ventilator Ventilator 09/02/18 09/02/18 09/02/18 09/02/18 01:00 02:00 02:20 03:00 Temp 101.8 101.8 Pulse 89 89 90 Resp 23 22 B/P (MAP) 149/62 (91) 155/65 (95) 127/65 (85) Pulse Ox 100 100 100 100 O2 Delivery Ventilator Ventilator Ventilator Ventilator 09/02/18 09/02/18 09/02/1826/19 03:20 04:00 04:00 05:00 Temp 101.0 101.0 Pulse 89 87 Resp 22 18 B/P (MAP) 142/83 (102) 146/68 (94) Pulse Ox 100 100 100 O2 Delivery Ventilator Mechanical Ventilator Ventilator Ventilator 09/02/18 09/02/18 09/02/18 09/02/18 05:40 06:00 08:00 08:00 Temp 98.8 98.8 Pulse 82 85 Resp 21 22 B/P (MAP) 119/54 (75) 127/62 (83) Pulse Ox 100 100 100 O2 Delivery Ventilator Ventilator Mechanical Ventilator Ventilator 09/02/18 09/02/18 09/02/18 09/02/18 08:11 08:25 08:41 09:00 Pulse 95 Resp 22 23 25 B/P (MAP) 169/80 (109) Pulse Ox 100 99 100 100 O2 Delivery Ventilator Ventilator Ventilator 09/02/18 09/02/18 09/02/18 09/02/18 10:00 10:05 11:00 12:00 Pulse 89 85 Resp 22 22 B/P (MAP) 151/78 (102) 146/80 (102) Pulse Ox 100 99 100 O2 Delivery Ventilator Ventilator Ventilator Mechanical Ventilator 09/02/18 09/02/18 12:00 12:17 Temp 99.1 99.1 Pulse 76 Resp 18 B/P (MAP) 145/66 (92) Pulse Ox 100 100 O2 Delivery Ventilator Ventilator Intake and Output 09/01/18 09/01/18 09/02/18 15:00 23:00 07:00 Intake Total 1682 ml 611 ml Output Total 10 ml 15 ml 512 ml Balance -10 ml 1667 ml 99 ml JEREMÍAS BOGGSL K III DO September 02, 2018 12:59
[2018-09-02] MEDS ORDERED: DEXTROSE 70% IV SCH ×9 (22:00)
[2018-09-02] MEDS ORDERED: [UNRECOGNIZED DRUG - OTHER] IV SCH ×9 (22:00)
[2018-09-02] MEDS ORDERED: AMINO ACID IV SCH ×9 (22:00)
[2018-09-02] MEDS ORDERED: TOTAL PARENTERAL NUTRITION IV SCH ×9 (22:00)
[2018-09-03] VITALS (23 sets, daily range): BP systolic 118–156; BP diastolic 65–81
[2018-09-03] MEDS: PROPOFOL 100 ML IV PRN ×6 (02:59→22:59)
[2018-09-03] MEDS: PIPERACILLIN/TAZOBACTAM 2.25 GM in IV NORMAL SALINE 50ML 50 ML IV SCH ×6 (05:56→23:47)
[2018-09-03 06:31] LABS: BASO # 0.1 x10^3/uL (0.0-0.2); BASO % 1 % (0-3); EOS # 0.3 x10^3/uL (0.0-0.7); EOS % 3 % (0-3); HEMATOCRIT 22.6 % (39.0-53.0); HEMOGLOBIN 7.6 g/dL (13.0-17.5); LYMPH # 2.8 x10^3/uL (1.0-4.8); LYMPH % 35 % (24-48); MEAN CORPUSCULAR HEMOGLOBIN 29 pg (25-35); MEAN CORPUSCULAR HGB CONC 34 g/dL (31-37); MEAN CORPUSCULAR VOLUME 86 fL (79-100); MONO # 1.5 x10^3/uL (0.0-1.1); MONO % 20 % (0-9); NEUT # 3.3 x10^3uL (1.8-7.7); NEUT % 41 % (31-73); PLATELET COUNT 139 x10^3/uL (140-400); RED BLOOD COUNT 2.62 x10^6/uL (4.30-5.70); RED CELL DISTRIBUTION WIDTH 17.5 % (11.5-14.5); WHITE BLOOD COUNT 7.9 x10^3/uL (4.0-11.0)
[2018-09-03 06:33] LABS: ALBUMIN 2.1 g/dL (3.4-5.0); CALCIUM 7.8 mg/dL (8.5-10.1); CREATININE 10.7 mg/dL (0.7-1.3); GFR 5.1; PHOSPHORUS 5.8 mg/dL (2.6-4.7)
[2018-09-03 06:34] LABS: POTASSIUM 5.2 mmol/L (3.5-5.1)
[2018-09-03] MEDS: TPN PER PHARMACY MC PRN ×2 (07:41→10:53)
[2018-09-03] MEDS: IPRATRPIUM/ALBUTEROL 0.5/2.5MG 3 ML NEBU. NEB SCH ×4 (08:31→20:30)
[2018-09-03 08:43] LABS: BASE EXCESS ABG -8 mmol/L (-3-3); HCO3 ABG 17 mmol/L (21-28); PCO2 ABG 35 mmHg (35-46); PO2 ABG 125 mmHg (75-108); SAT O2 ABG 97 % (92-99)
[2018-09-03 08:44] LABS: FIO2 ABG 97
--- NOTE | 2018-09-03 08:54 | PDOC ---
SUBJECTIVE ROS Follow-up for acute renal failure/ATN [facility] remains intubated sedated on the vent currently. Unable to get much review of systems. Overnight get reviewed with nurse at bedside OBJECTIVE Vital Signs Vital Signs Date Time Temp Pulse Resp B/P (MAP) Pulse Ox O2 Delivery O2 Flow Rate FiO2 09/03/18 08:31 100 Ventilator 09/03/18 08:00 97.4 71 17 140/71 (94) 97.4 I & 0 Intake and Output 09/03/18 06:59 Intake Total 2514 ml Output Total 3340 ml Balance -826 ml IV Total 2514 ml Output Urine Total 90 ml Gastric Drainage Total 3250 ml Accuracy of I's and O's have been questioned PHYSICAL EXAM Physical Exam GEN: Sedated and intubated on the vent,In no distress EYES: Sclera anicteric, Conjunctiva Normal EN: No EN Drainage, Mucous Membranes moist, orally intubated NECK: no JVD, no JVP, Supple, no palpable Thyromegaly CVS: S1S2, no Murmur, No Gallop, No Rub,+ Edema RESP: Rare Rales, occasional upper respiratory Rhonchi, no Acc. Muscle Use GI: BS rare, hypoactive, NO Bruit, Non Tender, Non Distended : No CVA tenderness, no Suprapubic Tenderness DIAGNOSIS/ASSESSMENT Assessment & Plan ARF/ ATN : Currently oligo anuric: Dialysis as below F 180 NR 4.0 Hrs 2 K 2.5 Ca 140 Na 40 HC03 Qb 350 + Qd 500+ Heparin 0 Units Uf 2-3 Kgs or to dry weight as tolerated May give 25-50 gms of 25% Albumin if needed to maintain Hemodynamic stability Treatment plan reviewed and discussed with rehabilitation aide/scheduler ANEMIA in the setting of renal failure (worse today); Aranap as ordered, Transfuse with next HD as needed if hemoglobin drops below 7 Nutrition: Continue TPN for now. Reevaluate for enteral feeding once ileus improves/results SIRS/sepsis: Appears to be improving overall Ongoing ileus: Attempt at tube feeds at some point of time may be required. Azotemia: May need daily dialysis in the setting of ongoing TPN use Discussed Plan of Care with family ( ) at bedside COMMENT/RELEVANT DATA Meds Current Medications Medications (Trade) Dose Ordered Sig/Noemi Start Time Stop Time Status Last Admin Dose Admin Acetaminophen (Tylenol Supp) 650 mg PRN Q6HRS PRN 08/27/18 21:15 09/02/18 01:18 650 MG Acetaminophen (Tylenol) 650 mg PRN Q6HRS PRN 08/27/18 21:15 Acyclovir Sodium 340 mg/Dextrose 106.8 ml @ 106.8 mls/ hr Q12HR 08/30/18 09:00 09/01/18 13:37 DC 09/01/18 11:05 106.8 MLS/HR Albumin Human 200 ml @ 200 mls/hr 1X PRN PRN 08/28/18 14:00 08/28/18 14:50 200 MLS/HR Albuterol/ Ipratropium (Duoneb) 3 ml 1X ONCE 09/01/18 01:00 09/01/18 01:01 DC 09/01/18 01:10 3 ML Atropine Sulfate (ATROPINE 1mg SYRINGE) 1 mg STK-MED ONCE 08/31/18 22:58 08/31/18 22:59 DC Aztreonam (Azactam) 2 gm 1X ONCE 08/25/18 21:15 08/25/18 21:16 DC 08/25/18 21:15 2 GM Benzocaine (Hurricaine One) 1 spray 1X STAT 08/28/18 10:16 08/28/18 10:19 DC 08/28/18 10:16 1 SPRAY Ceftriaxone Sodium (Rocephin) 1 gm 1X ONCE 08/25/18 20:30 08/25/18 20:31 DC 08/25/18 20:36 1 GM Chlorhexidine Gluconate (Peridex) 15 ml BID 09/01/18 09:00 09/02/18 20:31 15 ML Daptomycin 610 mg/ Sodium Chloride 50 ml @ 100 mls/hr Q48H 08/30/18 16:00 08/30/18 16:00 DC Doxycycline Hyclate 100 mg/ Dextrose 100 ml @ 50 mls/hr Q12HR 08/26/18 09:00 09/02/18 20:32 50 MLS/HR Famotidine (Pepcid Vial) 20 mg Q48H 09/03/18 21:00 Famotidine (Pepcid) 20 mg Q48H 08/29/18 09:00 08/29/18 11:29 DC Fentanyl Citrate 30 ml @ 0 mls/hr CONT PRN 09/01/18 00:00 09/03/18 06:05 2.5 MLS/HR Fentanyl Citrate (Fentanyl 2ml Vial) 50 mcg PRN Q4HRS PRN 08/28/18 15:30 08/28/18 21:44 50 MCG Haloperidol (Haldol) 2 mg PRN QID PRN 08/31/18 08:00 08/31/18 12:43 DC Haloperidol Lactate (HALDOL 2mg ORAL CONC) 2 mg PRN QID PRN 08/31/18 12:43 Haloperidol Lactate (Haldol Inj) 5 mg PRN Q6HRS PRN 08/28/18 12:00 08/29/18 20:31 5 MG Heparin Sodium (Porcine) (Heparin Sodium) 10,000 unit STK-MED ONCE 08/26/18 12:49 08/26/18 12:50 DC Ibuprofen (Motrin) 600 mg 1X ONCE 08/25/18 19:45 08/25/18 19:49 DC 08/25/18 20:38 600 MG Info (PHARMACY MONITORING -- do not chart) 1 each PRN DAILY PRN 09/01/18 11:00 Info (Tpn Per Pharmacy) 1 each PRN DAILY PRN 08/30/18 12:45 09/03/18 07:41 1 EACH Lactobacillus Rhamnosus (Culturelle) 1 cap BID 08/26/18 21:00 08/28/18 08:01 1 CAP Lidocaine HCl (Glydo (Lidocaine) Jelly) 1 meng 1X STAT 08/28/18 10:16 08/28/18 10:19 DC 08/28/18 10:16 1 MENG Lidocaine/Sodium Bicarbonate (Buffered Lidocaine 1%) 3 ml 1X ONCE 08/28/18 10:30 08/28/18 10:31 DC Magnesium Sulfate 50 ml @ 25 mls/hr 1X ONCE 08/25/18 21:15 08/25/18 23:14 DC 08/25/18 23:51 25 MLS/HR Meropenem 500 mg/ Sodium Chloride 50 ml @ 100 mls/hr DAILY 08/26/18 09:00 08/30/18 08:17 DC 08/29/18 10:13 100 MLS/HR Midazolam HCl 100 ml @ 0 mls/hr CONT PRN 09/01/18 00:00 Norepinephrine Bitartrate 250 ml @ 0 mls/hr CONT PRN 08/26/18 09:15 08/30/18 17:20 DC 08/27/18 10:21 1.88 MLS/HR Ondansetron HCl (Zofran) 4 mg PRN Q6HRS PRN 08/31/18 08:00 Piperacillin Sod/ Tazobactam Sod 2.25 gm/Sodium Chloride 50 ml @ 100 mls/hr Q6HRS 09/01/18 14:00 09/03/18 05:56 100 MLS/HR Piperacillin Sod/ Tazobactam Sod 4.5 gm/Sodium Chloride 100 ml @ 200 mls/hr 1X ONCE 08/25/18 21:15 08/25/18 21:44 DC Propofol 100 ml @ 0 mls/hr CONT PRN 09/01/18 00:00 09/03/18 06:06 24.542 MLS/HR Sodium Chloride (Normal Saline Flush) 10 ml 1X PRN PRN 09/01/18 07:00 09/02/18 06:59 DC Sodium Chloride 90 meq/Potassium Chloride 50 meq/ Potassium Phosphate 10 mmol/ Calcium Gluconate 10 meq/ Multivitamins 10 ml/Chromium/ Copper/Manganese/ Seleni/Zn 1 ml/ Total Parenteral Nutrition/Amino Acids/Dextrose 1,512 ml @ 63 mls/hr TPN CONT 09/01/18 22:00 09/02/18 21:59 DC 09/01/18 22:11 63 MLS/HR Sodium Chloride 90 meq/Potassium Chloride 50 meq/ Potassium Phosphate 3 mmol/ Magnesium Sulfate 10 meq/Calcium Gluconate 10 meq/ Multivitamins 10 ml/Chromium/ Copper/Manganese/ Seleni/Zn 1 ml/ Total Parenteral Nutrition/Amino Acids/Dextrose/ Fat Emulsion Intravenous 1,512 ml @ 63 mls/hr TPN CONT 08/30/18 22:00 08/31/18 21:59 DC 08/30/18 21:40 63 MLS/HR Sodium Chloride 90 meq/Potassium Chloride 50 meq/ Potassium Phosphate 5 mmol/ Magnesium Sulfate 3 meq/Calcium Gluconate 10 meq/ Multivitamins 10 ml/Chromium/ Copper/Manganese/ Seleni/Zn 1 ml/ Total Parenteral Nutrition/Amino Acids/Dextrose 1,512 ml @ 63 mls/hr TPN CONT 08/31/18 22:00 09/01/18 21:59 DC 08/31/18 20:59 63 MLS/HR Sodium Chloride 110 meq/Potassium Chloride 50 meq/ Potassium Phosphate 10 mmol/ Calcium Gluconate 10 meq/ Multivitamins 10 ml/Chromium/ Copper/Manganese/ Seleni/Zn 1 ml/ Magnesium Sulfate 3 meq/Total Parenteral Nutrition/Amino Acids/Dextrose 1,512 ml @ 63 mls/hr TPN CONT 09/02/18 22:00 09/03/18 21:59 09/02/18 22:13 63 MLS/HR Succinylcholine Chloride (Anectine) 200 mg 1X ONCE 09/01/18 01:15 09/01/18 01:16 DC 08/31/18 23:04 200 MG Vancomycin HCl 2 gm/Sodium Chloride 500 ml @ 250 mls/hr 1X ONCE 08/25/18 21:30 08/25/18 23:29 DC 08/25/18 23:10 250 MLS/HR Lab Laboratory Tests Test 09/03/18 05:45 09/03/18 08:30 White Blood Count 7.9 x10^3/uL (4.0-11.0) Red Blood Count 2.62 x10^6/uL (4.30-5.70) Hemoglobin 7.6 g/dL (13.0-17.5) Hematocrit 22.6 % (39.0-53.0) Mean Corpuscular Volume 86 fL (79-100) Mean Corpuscular Hemoglobin 29 pg (25-35) Mean Corpuscular Hemoglobin Concent 34 g/dL (31-37) Red Cell Distribution Width 17.5 % (11.5-14.5) Platelet Count 139 x10^3/uL (140-400) Neutrophils (%) (Auto) 41 % (31-73) Lymphocytes (%) (Auto) 35 % (24-48) Monocytes (%) (Auto) 20 % (0-9) Eosinophils (%) (Auto) 3 % (0-3) Basophils (%) (Auto) 1 % (0-3) Neutrophils # (Auto) 3.3 x10^3uL (1.8-7.7) Lymphocytes # (Auto) 2.8 x10^3/uL (1.0-4.8) Monocytes # (Auto) 1.5 x10^3/uL (0.0-1.1) Eosinophils # (Auto) 0.3 x10^3/uL (0.0-0.7) Basophils # (Auto) 0.1 x10^3/uL (0.0-0.2) Sodium Level 135 mmol/L (136-145) Potassium Level 5.2 mmol/L (3.5-5.1) Chloride Level 100 mmol/L (98-107) Carbon Dioxide Level 20 mmol/L (21-32) Anion Gap 15 (6-14) Blood Urea Nitrogen 98 mg/dL (8-26) Creatinine 10.7 mg/dL (0.7-1.3) Estimated GFR (Cockcroft-Gault) 5.1 Glucose Level 179 mg/dL (70-99) Calcium Level 7.8 mg/dL (8.5-10.1) Phosphorus Level 5.8 mg/dL (2.6-4.7) Albumin 2.1 g/dL (3.4-5.0) O2 Saturation 97 % (92-99) Arterial Blood pH 7.31 (7.35-7.45) Arterial Blood pCO2 at Patient Temp 35 mmHg (35-46) Arterial Blood pO2 at Patient Temp 125 mmHg (75-108) Arterial Blood HCO3 17 mmol/L (21-28) Arterial Blood Base Excess -8 mmol/L (-3-3) FiO2 97 Results All relevant outside records, renal labs, imaging studies, telemetry/EKG's were reviewed. BRADY PARKER MD September 03, 2018 08:54
[2018-09-03] MEDS: LACTOBACILLUS RHAMNOSUS GG 1 CAPSULE. PO SCH ×2 (09:00→22:12)
[2018-09-03] MEDS: CHLORHEXIDINE 0.12% 15 ML MOUTHWASH. MM SCH ×2 (09:00→22:12)
[2018-09-03] MEDS: DOXYCYCLINE HYCLATE 100 MG in IV DEXTROSE 5% 100ML 100 ML IV SCH ×2 (09:27→22:11)
--- NOTE | 2018-09-03 09:42 | PDOC ---
Infectious Disease Note Subjective: Subjective intubated on vent awaiting dialysis again today D/W RN ROS: ROS unable to obtain Vital Signs: Vital Signs Vital Signs Date Time Temp Pulse Resp B/P (MAP) Pulse Ox O2 Delivery O2 Flow Rate FiO2 09/03/18 09:17 100 Ventilator 09/03/18 09:00 70 18 149/81 (103) 09/03/18 08:00 97.4 97.4 Physical Exam: PHYSICAL EXAM GENERAL:sedated on vent HEENT: Pupils equally round, reactive. No conjunctivae petechia. ETT + NECK: Supple. LUNGS: Clear to auscultation. HEART: S1 and S2. ABDOMEN: Obese, soft, nontender with bowel sounds present. EXTREMITIES: trace edema,no cyanosis. SKIN: Warm without rash. Left knee has several scabs/scarring.healing NEUROLOGIC: sedated on vent Medications: Inpatient Meds: Current Medications Medications (Trade) Dose Ordered Sig/Noemi Start Time Stop Time Status Last Admin Dose Admin Acetaminophen (Tylenol Supp) 650 mg PRN Q6HRS PRN 08/27/18 21:15 09/02/18 01:18 650 MG Acetaminophen (Tylenol) 650 mg PRN Q6HRS PRN 08/27/18 21:15 Acyclovir Sodium 340 mg/Dextrose 106.8 ml @ 106.8 mls/ hr Q12HR 08/30/18 09:00 09/01/18 13:37 DC 09/01/18 11:05 106.8 MLS/HR Albumin Human 200 ml @ 200 mls/hr 1X PRN PRN 08/28/18 14:00 08/28/18 14:50 200 MLS/HR Albuterol/ Ipratropium (Duoneb) 3 ml 1X ONCE 09/01/18 01:00 09/01/18 01:01 DC 09/01/18 01:10 3 ML Atropine Sulfate (ATROPINE 1mg SYRINGE) 1 mg STK-MED ONCE 08/31/18 22:58 08/31/18 22:59 DC Aztreonam (Azactam) 2 gm 1X ONCE 08/25/18 21:15 08/25/18 21:16 DC 08/25/18 21:15 2 GM Benzocaine (Hurricaine One) 1 spray 1X STAT 08/28/18 10:16 08/28/18 10:19 DC 08/28/18 10:16 1 SPRAY Ceftriaxone Sodium (Rocephin) 1 gm 1X ONCE 08/25/18 20:30 08/25/18 20:31 DC 08/25/18 20:36 1 GM Chlorhexidine Gluconate (Peridex) 15 ml BID 09/01/18 09:00 09/03/18 09:00 15 ML Daptomycin 610 mg/ Sodium Chloride 50 ml @ 100 mls/hr Q48H 08/30/18 16:00 08/30/18 16:00 DC Darbepoetin Phil (Aranesp) 100 mcg WEEKLYHS 09/03/18 21:00 Doxycycline Hyclate 100 mg/ Dextrose 100 ml @ 50 mls/hr Q12HR 08/26/18 09:00 09/03/18 09:27 50 MLS/HR Famotidine (Pepcid Vial) 20 mg Q48H 09/03/18 21:00 Famotidine (Pepcid) 20 mg Q48H 08/29/18 09:00 08/29/18 11:29 DC Fentanyl Citrate 30 ml @ 0 mls/hr CONT PRN 09/01/18 00:00 09/03/18 06:05 2.5 MLS/HR Fentanyl Citrate (Fentanyl 2ml Vial) 50 mcg PRN Q4HRS PRN 08/28/18 15:30 08/28/18 21:44 50 MCG Haloperidol (Haldol) 2 mg PRN QID PRN 08/31/18 08:00 08/31/18 12:43 DC Haloperidol Lactate (HALDOL 2mg ORAL CONC) 2 mg PRN QID PRN 08/31/18 12:43 Haloperidol Lactate (Haldol Inj) 5 mg PRN Q6HRS PRN 08/28/18 12:00 08/29/18 20:31 5 MG Heparin Sodium (Porcine) (Heparin Sodium) 10,000 unit STK-MED ONCE 08/26/18 12:49 08/26/18 12:50 DC Ibuprofen (Motrin) 600 mg 1X ONCE 08/25/18 19:45 08/25/18 19:49 DC 08/25/18 20:38 600 MG Info (PHARMACY MONITORING -- do not chart) 1 each PRN DAILY PRN 09/01/18 11:00 Info (Tpn Per Pharmacy) 1 each PRN DAILY PRN 08/30/18 12:45 09/03/18 07:41 1 EACH Lactobacillus Rhamnosus (Culturelle) 1 cap BID 08/26/18 21:00 08/28/18 08:01 1 CAP Lidocaine HCl (Glydo (Lidocaine) Jelly) 1 meng 1X STAT 08/28/18 10:16 08/28/18 10:19 DC 08/28/18 10:16 1 MENG Lidocaine/Sodium Bicarbonate (Buffered Lidocaine 1%) 3 ml 1X ONCE 08/28/18 10:30 08/28/18 10:31 DC Magnesium Sulfate 50 ml @ 25 mls/hr 1X ONCE 08/25/18 21:15 08/25/18 23:14 DC 08/25/18 23:51 25 MLS/HR Meropenem 500 mg/ Sodium Chloride 50 ml @ 100 mls/hr DAILY 08/26/18 09:00 08/30/18 08:17 DC 08/29/18 10:13 100 MLS/HR Midazolam HCl 100 ml @ 0 mls/hr CONT PRN 09/01/18 00:00 Norepinephrine Bitartrate 250 ml @ 0 mls/hr CONT PRN 08/26/18 09:15 08/30/18 17:20 DC 08/27/18 10:21 1.88 MLS/HR Ondansetron HCl (Zofran) 4 mg PRN Q6HRS PRN 08/31/18 08:00 Piperacillin Sod/ Tazobactam Sod 2.25 gm/Sodium Chloride 50 ml @ 100 mls/hr Q6HRS 09/01/18 14:00 09/03/18 05:56 100 MLS/HR Piperacillin Sod/ Tazobactam Sod 4.5 gm/Sodium Chloride 100 ml @ 200 mls/hr 1X ONCE 08/25/18 21:15 08/25/18 21:44 DC Propofol 100 ml @ 0 mls/hr CONT PRN 09/01/18 00:00 09/03/18 06:06 24.542 MLS/HR Sodium Chloride (Normal Saline Flush) 10 ml 1X PRN PRN 09/01/18 07:00 09/02/18 06:59 DC Sodium Chloride 90 meq/Potassium Chloride 50 meq/ Potassium Phosphate 10 mmol/ Calcium Gluconate 10 meq/ Multivitamins 10 ml/Chromium/ Copper/Manganese/ Seleni/Zn 1 ml/ Total Parenteral Nutrition/Amino Acids/Dextrose 1,512 ml @ 63 mls/hr TPN CONT 09/01/18 22:00 09/02/18 21:59 DC 09/01/18 22:11 63 MLS/HR Sodium Chloride 90 meq/Potassium Chloride 50 meq/ Potassium Phosphate 3 mmol/ Magnesium Sulfate 10 meq/Calcium Gluconate 10 meq/ Multivitamins 10 ml/Chromium/ Copper/Manganese/ Seleni/Zn 1 ml/ Total Parenteral Nutrition/Amino Acids/Dextrose/ Fat Emulsion Intravenous 1,512 ml @ 63 mls/hr TPN CONT 08/30/18 22:00 08/31/18 21:59 DC 08/30/18 21:40 63 MLS/HR Sodium Chloride 90 meq/Potassium Chloride 50 meq/ Potassium Phosphate 5 mmol/ Magnesium Sulfate 3 meq/Calcium Gluconate 10 meq/ Multivitamins 10 ml/Chromium/ Copper/Manganese/ Seleni/Zn 1 ml/ Total Parenteral Nutrition/Amino Acids/Dextrose 1,512 ml @ 63 mls/hr TPN CONT 08/31/18 22:00 09/01/18 21:59 DC 08/31/18 20:59 63 MLS/HR Sodium Chloride 110 meq/Potassium Chloride 50 meq/ Potassium Phosphate 10 mmol/ Calcium Gluconate 10 meq/ Multivitamins 10 ml/Chromium/ Copper/Manganese/ Seleni/Zn 1 ml/ Magnesium Sulfate 3 meq/Total Parenteral Nutrition/Amino Acids/Dextrose 1,512 ml @ 63 mls/hr TPN CONT 09/02/18 22:00 09/03/18 21:59 09/02/18 22:13 63 MLS/HR Succinylcholine Chloride (Anectine) 200 mg 1X ONCE 09/01/18 01:15 09/01/18 01:16 DC 08/31/18 23:04 200 MG Vancomycin HCl 2 gm/Sodium Chloride 500 ml @ 250 mls/hr 1X ONCE 08/25/18 21:30 08/25/18 23:29 DC 08/25/18 23:10 250 MLS/HR Labs: Lab Laboratory Tests Test 09/03/18 05:45 09/03/18 08:30 White Blood Count 7.9 x10^3/uL (4.0-11.0) Red Blood Count 2.62 x10^6/uL (4.30-5.70) Hemoglobin 7.6 g/dL (13.0-17.5) Hematocrit 22.6 % (39.0-53.0) Mean Corpuscular Volume 86 fL (79-100) Mean Corpuscular Hemoglobin 29 pg (25-35) Mean Corpuscular Hemoglobin Concent 34 g/dL (31-37) Red Cell Distribution Width 17.5 % (11.5-14.5) Platelet Count 139 x10^3/uL (140-400) Neutrophils (%) (Auto) 41 % (31-73) Lymphocytes (%) (Auto) 35 % (24-48) Monocytes (%) (Auto) 20 % (0-9) Eosinophils (%) (Auto) 3 % (0-3) Basophils (%) (Auto) 1 % (0-3) Neutrophils # (Auto) 3.3 x10^3uL (1.8-7.7) Lymphocytes # (Auto) 2.8 x10^3/uL (1.0-4.8) Monocytes # (Auto) 1.5 x10^3/uL (0.0-1.1) Eosinophils # (Auto) 0.3 x10^3/uL (0.0-0.7) Basophils # (Auto) 0.1 x10^3/uL (0.0-0.2) Sodium Level 135 mmol/L (136-145) Potassium Level 5.2 mmol/L (3.5-5.1) Chloride Level 100 mmol/L (98-107) Carbon Dioxide Level 20 mmol/L (21-32) Anion Gap 15 (6-14) Blood Urea Nitrogen 98 mg/dL (8-26) Creatinine 10.7 mg/dL (0.7-1.3) Estimated GFR (Cockcroft-Gault) 5.1 Glucose Level 179 mg/dL (70-99) Calcium Level 7.8 mg/dL (8.5-10.1) Phosphorus Level 5.8 mg/dL (2.6-4.7) Albumin 2.1 g/dL (3.4-5.0) O2 Saturation 97 % (92-99) Arterial Blood pH 7.31 (7.35-7.45) Arterial Blood pCO2 at Patient Temp 35 mmHg (35-46) Arterial Blood pO2 at Patient Temp 125 mmHg (75-108) Arterial Blood HCO3 17 mmol/L (21-28) Arterial Blood Base Excess -8 mmol/L (-3-3) FiO2 97 Objective: Assessment: Tick-born illness suspected w/u negative for ehrlichia ,RMSF Lactic acidosis Fever resolving Bandemia resolved leucocytosis improving Acute hepatic injury RADHA (Recent Bactrim/ibuprofen) Thrombocytopenia resolved Hemochromatosis, followed by [facility] Diarrhea, resolved Dermatitis RLE improved encephalopathy waxing and waning etiology unclear MRI neg CSF pleocytosis ,cultures and serologies negative Plan: Plan of Care cont connie, bryson Ehrlichiae Ab neg RMSF neg, though need convalescent serology [place] IgG +, IgM neg, old exposure HSV PCR neg Arboviral panel not available Enteroviral pcr not available D/w D/w nursing JEFF PARKER MD September 03, 2018 09:42
--- NOTE | 2018-09-03 09:44 | PDOC ---
PROGRESS NOTES Chief Complaint Chief Complaint Sepsis Encephalopathy Encephalitis of undetermined etiology Respiratory failure Probable tick-borne illness, suspected. with h/o tick bite 3 weeks ago at [place] Lactic acidosis. Fever. Bandemia. Acute hepatic injury Acute kidney injury. Thrombocytopenia. Hemochromatosis. LLE dermatitis improving, ? poison [place],resolving with local treatment History of Present Illness History of Present Illness Mr Kirk is a 52-year-old male with a past medical history of hemochromatosis who is pretty healthy otherwise and very active. About 3 weeks ago, he was at [facility] [employer] mobile and found a tick embedded on the back of his right thigh. He pulled it out and thought nothing of it. The next day, he was cleaning up a yard with a few other persons from [employer]. He recalls kneeling down on his left knee pulling wheat. A few days later, he developed an itchy red blistering rash on his left knee that improved with [id number] ivory rest. He then developed a different type of rash that was itchy, splotchy and red on the inner aspect of both arms. He was seen by his doctor and prescribed Bactrim for infection. 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 About a week later, on Friday 08/18, he went to a men's breakfast and a [employer] meeting. Afterwards, he felt unusually tired. Over the following 24 hours, he did not feel well. He developed fever, chills, joint pains and muscle aches. He alternated taking ibuprofen and Tylenol without relief. He was seen at urgent care center and prescribed prednisone for upper respiratory infection. Unfortunately, he felt worse. He lost his appetite and was not drinking much and was urinating less. His said he was sleeping more, moaned, seemed lethargic and confused, prompting the ER visit. On arrival to the ER, he had a temperature of 100.3, respiratory rate 28. Laboratory values returned abnormal with a WBC count 6.2, segs 68%, bands 24%, platelets 17,000. Lactic acid was 5.1. Sed rate 11. He had elevated LFTs and acute kidney injury. Cultures were ordered. He was dosed with vancomycin, ceftriaxone and aztreonam in the ER. ID adjusted his antibiotics to daptomycin, meropenem and doxycycline. He was feeling improved, then on 08/28/2018 continued to worsen, was started on dialysis, required increasing O2 and was placed on BIPAP and ultimately intubated on 08/31/2018. Serology for HIV, HSV, [place] spotted fever and Ehrlichia all thus negative. Had LP on 08/29/18 with increased protein. Patient seen and examined in the ICU. is bedside. She notes no recent travel, last time he was out of the country was [facility] in 2003. 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 He struggled with infidelity over the last year and over the weekend had HIV testing consent per . Patient is on the vent assist control/ with 40% and 5 of PEEP He is extremely ill Vitals Vitals Vital Signs Date Time Temp Pulse Resp B/P (MAP) Pulse Ox O2 Delivery O2 Flow Rate FiO2 09/03/18 09:17 100 Ventilator 09/03/18 09:00 70 18 149/81 (103) 09/03/18 08:00 97.4 97.4 Physical Exam Physical Exam GENERAL:sedated on vent HEENT: Pupils equally round, reactive. Normal conjunctivae. Oral cavity: Pharynx pink, dry. NECK: Supple. LUNGS: Clear to auscultation. HEART: S1 and S2. ABDOMEN: Obese, soft, nontender with bowel sounds present. EXTREMITIES: No gross edema or cyanosis. SKIN: Warm without rash. Left knee has several scabs/scarring. NEUROLOGIC: sedated on vent General: No acute distress Heart: Regular rate, Normal S1, Normal S2 Lungs: Crackles Abdomen: Soft, No tenderness Extremities: No clubbing, No cyanosis, No edema Skin: No significant lesion, Other (healing rash and excoriations on Left lower extremity. No obvious petechiae) Labs LABS Laboratory Tests Test 09/03/18 05:45 09/03/18 08:30 White Blood Count 7.9 x10^3/uL (4.0-11.0) Red Blood Count 2.62 x10^6/uL (4.30-5.70) Hemoglobin 7.6 g/dL (13.0-17.5) Hematocrit 22.6 % (39.0-53.0) Mean Corpuscular Volume 86 fL (79-100) Mean Corpuscular Hemoglobin 29 pg (25-35) Mean Corpuscular Hemoglobin Concent 34 g/dL (31-37) Red Cell Distribution Width 17.5 % (11.5-14.5) Platelet Count 139 x10^3/uL (140-400) Neutrophils (%) (Auto) 41 % (31-73) Lymphocytes (%) (Auto) 35 % (24-48) Monocytes (%) (Auto) 20 % (0-9) Eosinophils (%) (Auto) 3 % (0-3) Basophils (%) (Auto) 1 % (0-3) Neutrophils # (Auto) 3.3 x10^3uL (1.8-7.7) Lymphocytes # (Auto) 2.8 x10^3/uL (1.0-4.8) Monocytes # (Auto) 1.5 x10^3/uL (0.0-1.1) Eosinophils # (Auto) 0.3 x10^3/uL (0.0-0.7) Basophils # (Auto) 0.1 x10^3/uL (0.0-0.2) Sodium Level 135 mmol/L (136-145) Potassium Level 5.2 mmol/L (3.5-5.1) Chloride Level 100 mmol/L (98-107) Carbon Dioxide Level 20 mmol/L (21-32) Anion Gap 15 (6-14) Blood Urea Nitrogen 98 mg/dL (8-26) Creatinine 10.7 mg/dL (0.7-1.3) Estimated GFR (Cockcroft-Gault) 5.1 Glucose Level 179 mg/dL (70-99) Calcium Level 7.8 mg/dL (8.5-10.1) Phosphorus Level 5.8 mg/dL (2.6-4.7) Albumin 2.1 g/dL (3.4-5.0) O2 Saturation 97 % (92-99) Arterial Blood pH 7.31 (7.35-7.45) Arterial Blood pCO2 at Patient Temp 35 mmHg (35-46) Arterial Blood pO2 at Patient Temp 125 mmHg (75-108) Arterial Blood HCO3 17 mmol/L (21-28) Arterial Blood Base Excess -8 mmol/L (-3-3) FiO2 97 Assessment and Plan Assessmemt and Plan Problems Medical Problems: (1) Acute renal failure Status: Acute Comment Review of Relevant I have reviewed the following items gera (where applicable) has been applied. Labs Laboratory Tests Test 09/02/18 05:50 09/02/18 05:55 09/03/18 05:45 09/03/18 08:30 Sodium Level 137 mmol/L (136-145) 135 mmol/L (136-145) Potassium Level 4.7 mmol/L (3.5-5.1) 5.2 mmol/L (3.5-5.1) Chloride Level 101 mmol/L (98-107) 100 mmol/L (98-107) Carbon Dioxide Level 24 mmol/L (21-32) 20 mmol/L (21-32) Anion Gap 12 (6-14) 15 (6-14) Blood Urea Nitrogen 68 mg/dL (8-26) 98 mg/dL (8-26) Creatinine 8.3 mg/dL (0.7-1.3) 10.7 mg/dL (0.7-1.3) Estimated GFR (Cockcroft-Gault) 6.8 5.1 Glucose Level 135 mg/dL (70-99) 179 mg/dL (70-99) Calcium Level 7.8 mg/dL (8.5-10.1) 7.8 mg/dL (8.5-10.1) Phosphorus Level 3.1 mg/dL (2.6-4.7) 5.8 mg/dL (2.6-4.7) Magnesium Level 2.4 mg/dL (1.8-2.4) Albumin 2.2 g/dL (3.4-5.0) 2.1 g/dL (3.4-5.0) O2 Saturation 96 % (92-99) 97 % (92-99) Arterial Blood pH 7.46 (7.35-7.45) 7.31 (7.35-7.45) Arterial Blood pCO2 at Patient Temp 32 mmHg (35-46) 35 mmHg (35-46) Arterial Blood pO2 at Patient Temp 96 mmHg (75-108) 125 mmHg (75-108) Arterial Blood HCO3 23 mmol/L (21-28) 17 mmol/L (21-28) Arterial Blood Base Excess -1 mmol/L (-3-3) -8 mmol/L (-3-3) FiO2 40 97 White Blood Count 7.9 x10^3/uL (4.0-11.0) Red Blood Count 2.62 x10^6/uL (4.30-5.70) Hemoglobin 7.6 g/dL (13.0-17.5) Hematocrit 22.6 % (39.0-53.0) Mean Corpuscular Volume 86 fL (79-100) Mean Corpuscular Hemoglobin 29 pg (25-35) Mean Corpuscular Hemoglobin Concent 34 g/dL (31-37) Red Cell Distribution Width 17.5 % (11.5-14.5) Platelet Count 139 x10^3/uL (140-400) Neutrophils (%) (Auto) 41 % (31-73) Lymphocytes (%) (Auto) 35 % (24-48) Monocytes (%) (Auto) 20 % (0-9) Eosinophils (%) (Auto) 3 % (0-3) Basophils (%) (Auto) 1 % (0-3) Neutrophils # (Auto) 3.3 x10^3uL (1.8-7.7) Lymphocytes # (Auto) 2.8 x10^3/uL (1.0-4.8) Monocytes # (Auto) 1.5 x10^3/uL (0.0-1.1) Eosinophils # (Auto) 0.3 x10^3/uL (0.0-0.7) Basophils # (Auto) 0.1 x10^3/uL (0.0-0.2) Laboratory Tests Test 09/03/18 05:45 09/03/18 08:30 White Blood Count 7.9 x10^3/uL (4.0-11.0) Red Blood Count 2.62 x10^6/uL (4.30-5.70) Hemoglobin 7.6 g/dL (13.0-17.5) Hematocrit 22.6 % (39.0-53.0) Mean Corpuscular Volume 86 fL (79-100) Mean Corpuscular Hemoglobin 29 pg (25-35) Mean Corpuscular Hemoglobin Concent 34 g/dL (31-37) Red Cell Distribution Width 17.5 % (11.5-14.5) Platelet Count 139 x10^3/uL (140-400) Neutrophils (%) (Auto) 41 % (31-73) Lymphocytes (%) (Auto) 35 % (24-48) Monocytes (%) (Auto) 20 % (0-9) Eosinophils (%) (Auto) 3 % (0-3) Basophils (%) (Auto) 1 % (0-3) Neutrophils # (Auto) 3.3 x10^3uL (1.8-7.7) Lymphocytes # (Auto) 2.8 x10^3/uL (1.0-4.8) Monocytes # (Auto) 1.5 x10^3/uL (0.0-1.1) Eosinophils # (Auto) 0.3 x10^3/uL (0.0-0.7) Basophils # (Auto) 0.1 x10^3/uL (0.0-0.2) Sodium Level 135 mmol/L (136-145) Potassium Level 5.2 mmol/L (3.5-5.1) Chloride Level 100 mmol/L (98-107) Carbon Dioxide Level 20 mmol/L (21-32) Anion Gap 15 (6-14) Blood Urea Nitrogen 98 mg/dL (8-26) Creatinine 10.7 mg/dL (0.7-1.3) Estimated GFR (Cockcroft-Gault) 5.1 Glucose Level 179 mg/dL (70-99) Calcium Level 7.8 mg/dL (8.5-10.1) Phosphorus Level 5.8 mg/dL (2.6-4.7) Albumin 2.1 g/dL (3.4-5.0) O2 Saturation 97 % (92-99) Arterial Blood pH 7.31 (7.35-7.45) Arterial Blood pCO2 at Patient Temp 35 mmHg (35-46) Arterial Blood pO2 at Patient Temp 125 mmHg (75-108) Arterial Blood HCO3 17 mmol/L (21-28) Arterial Blood Base Excess -8 mmol/L (-3-3) FiO2 97 Microbiology 09/02/18 Blood Culture - Preliminary, Resulted NO GROWTH AFTER 1 DAY 08/29/18 CSF Gram Stain - Final, Complete 08/27/18 Stool Culture - Final, Complete 08/27/18 Stool Culture Result 1 (LOTUS) - Final, Complete 08/27/18 Campylobacter Antigen Assay - Final, Complete 08/27/18 Campylobactor Result 1 - Final, Complete 08/27/18 Shiga Toxin Test - Final, Complete Medications Current Medications Sodium Chloride 1,000 ml @ 1,000 mls/hr 1X ONCE IV Last administered on 08/25/18 20:38; Start 08/25/18 at 19:15; Stop 08/25/18 at 20:14; Status DC Ibuprofen (Motrin) 600 mg 1X ONCE PO Last administered on 08/25/18at 20:38; Start 08/25/18 at 19:45; Stop 08/25/18 at 19:49; Status DC Sodium Chloride 1,000 ml @ 1,000 mls/hr 1X ONCE IV Last administered on 08/25/18at 20:30; Start 08/25/18 at 20:30; Stop 08/25/18 at 21:29; Status DC Ceftriaxone Sodium (Rocephin) 1 gm 1X ONCE IVP Last administered on 08/25/18at 20:36; Start 08/25/18 at 20:30; Stop 08/25/18 at 20:31; Status DC Vancomycin HCl 2 gm/Sodium Chloride 500 ml @ 250 mls/hr 1X ONCE IV Last administered on 08/25/18at 23:10; Start 08/25/18 at 21:30; Stop 08/25/18 at 23:29; Status DC Sodium Chloride 1,000 ml @ 1,000 mls/hr 1X ONCE IV Last administered on 08/25/18at 23:51; Start 08/25/18 at 21:00; Stop 08/25/18 at 21:59; Status DC Piperacillin Sod/ Tazobactam Sod 4.5 gm/Sodium Chloride 100 ml @ 200 mls/hr 1X ONCE IV ; Start 08/25/18 at 21:15; Stop 08/25/18 at 21:44; Status DC Aztreonam (Azactam) 2 gm 1X ONCE IVP Last administered on 08/25/18at 21:15; Start 08/25/18 at 21:15; Stop 08/25/18 at 21:16; Status DC Magnesium Sulfate 50 ml @ 25 mls/hr 1X ONCE IV Last administered on 08/25/18at 23:51; Start 08/25/18 at 21:15; Stop 08/25/18 at 23:14; Status DC Ondansetron HCl (Zofran) 4 mg PRN Q8HRS PRN IV NAUSEA/VOMITING; Start 08/25/18 at 21:15; Stop 08/26/18 at 21:14; Status DC Acetaminophen (Tylenol) 650 mg PRN Q4HRS PRN PO FEVER; Start 08/25/18 at 21:15; Stop 08/26/18 at 21:14; Status DC Sodium Chloride 1,000 ml @ 125 mls/hr 1X ONCE IV Last administered on 08/25/18at 23:09; Start 08/25/18 at 21:15; Stop 08/26/18 at 05:14; Status DC Daptomycin 610 mg/ Sodium Chloride 50 ml @ 100 mls/hr QODAY IV Last administered on 08/27/18at 08:59; Start 08/27/18 at 09:00; Stop 08/28/18 at 15:40; Status DC Meropenem 500 mg/ Sodium Chloride 50 ml @ 100 mls/hr 1X ONCE IV Last administered on 08/25/18at 22:12; Start 08/25/18 at 22:00; Stop 08/25/18 at 22:29; Status DC Doxycycline Hyclate 100 mg/ Dextrose 100 ml @ 50 mls/hr Q12HR IV Last administered on 09/03/18at 09:27; Start 08/26/18 at 09:00 Meropenem 500 mg/ Sodium Chloride 50 ml @ 100 mls/hr DAILY IV Last administered on 08/29/18at 10:13; Start 08/26/18 at 09:00; Stop 08/30/18 at 08:17; Status DC Sodium Chloride (Normal Saline Flush) 10 ml QSHIFT PRN IV AFTER MEDS AND BLOOD DRAWS; Start 08/26/18 at 09:15 Norepinephrine Bitartrate 250 ml @ 0 mls/hr CONT PRN IV PER PROTOCOL Last administered on 08/27/18at 10:21; Start 08/26/18 at 09:15; Stop 08/30/18 at 17:20; Status DC Famotidine (Pepcid) 20 mg DAILY PO Last administered on 08/27/18at 08:14; Start 08/26/18 at 12:00; Stop 08/27/18 at 14:36; Status DC Sodium Chloride 1,000 ml @ 1,000 mls/hr Q1H PRN IV hypotension; Start 08/26/18 at 11:51; Stop 08/26/18 at 17:50; Status DC Sodium Chloride (Normal Saline Flush) 10 ml 1X PRN PRN IV AP catheter pack; Start 08/26/18 at 12:00; Stop 08/27/18 at 11:59; Status DC Sodium Chloride (Normal Saline Flush) 10 ml 1X PRN PRN IV SHRIMP HEADER catheter pack; Start 08/26/18 at 12:00; Stop 08/27/18 at 11:59; Status DC Sodium Chloride 1,000 ml @ 400 mls/hr Q2H30M PRN IV PATENCY; Start 08/26/18 at 11:51; Stop 08/26/18 at 23:50; Status DC Info (PHARMACY MONITORING -- do not chart) 1 each PRN DAILY PRN MC SEE COMMENTS; Start 08/26/18 at 12:00; Status UNV Info (PHARMACY MONITORING -- do not chart) 1 each PRN DAILY PRN MC SEE COMMENTS; Start 08/26/18 at 12:00; Stop 09/01/18 at 10:59; Status DC Lidocaine/Sodium Bicarbonate (Buffered Lidocaine 1%) 4 ml 1X ONCE INJ Last administered on 08/26/18at 12:45; Start 08/26/18 at 12:45; Stop 08/26/18 at 12:48; Status DC Heparin Sodium (Porcine) (Heparin Sodium) 2,500 unit 1X ONCE INT CAT Last administered on 08/26/18at 12:45; Start 08/26/18 at 12:45; Stop 08/26/18 at 12:48; Status DC Lidocaine/Sodium Bicarbonate (Buffered Lidocaine 1%) 3 ml STK-MED ONCE .ROUTE ; Start 08/26/18 at 12:49; Stop 08/26/18 at 12:50; Status DC Heparin Sodium (Porcine) (Heparin Sodium) 10,000 unit STK-MED ONCE .ROUTE ; Start 08/26/18 at 12:49; Stop 08/26/18 at 12:50; Status DC Lactobacillus Rhamnosus (Culturelle) 1 cap BID PO Last administered on 08/28/18at 08:01; Start 08/26/18 at 21:00 Acetaminophen (Tylenol) 325 mg STK-MED ONCE PO ; Start 08/27/18 at 00:43; Stop 08/27/18 at 00:44; Status DC Sodium Chloride 1,000 ml @ 1,000 mls/hr 1X ONCE IV Last administered on 08/27/18at 11:05; Start 08/27/18 at 10:30; Stop 08/27/18 at 11:29; Status DC Sodium Chloride 1,000 ml @ 1,000 mls/hr Q1H PRN IV hypotension; Start 08/27/18 at 11:28; Stop 08/27/18 at 17:27; Status DC Albumin Human 200 ml @ 200 mls/hr 1X PRN PRN IV Hypotension; Start 08/27/18 at 11:30; Stop 08/27/18 at 17:29; Status DC Sodium Chloride (Normal Saline Flush) 10 ml 1X PRN PRN IV AP catheter pack; Start 08/27/18 at 11:30; Stop 08/28/18 at 11:29; Status DC Sodium Chloride (Normal Saline Flush) 10 ml 1X PRN PRN IV SHRIMP HEADER catheter pack; Start 08/27/18 at 11:30; Stop 08/28/18 at 11:29; Status DC Sodium Chloride 1,000 ml @ 400 mls/hr Q2H30M PRN IV PATENCY; Start 08/27/18 at 11:28; Stop 08/27/18 at 23:27; Status DC Info (PHARMACY MONITORING -- do not chart) 1 each PRN DAILY PRN MC SEE COMMENTS; Start 08/27/18 at 11:30; Status UNV Info (PHARMACY MONITORING -- do not chart) 1 each PRN DAILY PRN MC SEE COMMENTS; Start 08/27/18 at 11:30; Status UNV Famotidine (Pepcid) 20 mg Q48H PO ; Start 08/29/18 at 09:00; Stop 08/29/18 at 11:29; Status DC Acetaminophen (Tylenol) 650 mg PRN Q6HRS PRN PO pain/fever; Start 08/27/18 at 21:15 Acetaminophen (Tylenol Supp) 650 mg PRN Q6HRS PRN NM MILD PAIN / TEMP Last administered on 09/02/18at 01:18; Start 08/27/18 at 21:15 Fentanyl Citrate (Fentanyl 2ml Vial) 25 mcg 1X ONCE IV Last administered on 08/28/18at 08:54; Start 08/28/18 at 08:45; Stop 08/28/18 at 08:47; Status DC Lidocaine/Sodium Bicarbonate (Buffered Lidocaine 1%) 3 ml STK-MED ONCE .ROUTE ; Start 08/28/18 at 09:55; Stop 08/28/18 at 09:56; Status DC Lidocaine HCl (Glydo (Lidocaine) Jelly) 1 meng 1X STAT MM Last administered on 08/28/18at 10:16; Start 08/28/18 at 10:16; Stop 08/28/18 at 10:19; Status DC Benzocaine (Hurricaine One) 1 spray 1X STAT MM Last administered on 08/28/18at 10:16; Start 08/28/18 at 10:16; Stop 08/28/18 at 10:19; Status DC Lidocaine/Sodium Bicarbonate (Buffered Lidocaine 1%) 3 ml 1X ONCE INJ ; Start 08/28/18 at 10:30; Stop 08/28/18 at 10:31; Status DC Haloperidol Lactate (Haldol Inj) 5 mg PRN Q6HRS PRN IVP AGITATION Last administered on 08/29/18at 20:31; Start 08/28/18 at 12:00 Fentanyl Citrate (Fentanyl 2ml Vial) 50 mcg PRN Q4HRS PRN IV PAIN Last administered on 08/28/18at 21:44; Start 08/28/18 at 15:30 Sodium Chloride 1,000 ml @ 1,000 mls/hr Q1H PRN IV hypotension; Start 08/28/18 at 14:00; Stop 08/28/18 at 19:59; Status DC Albumin Human 200 ml @ 200 mls/hr 1X PRN PRN IV Hypotension Last administered on 08/28/18at 14:50; Start 08/28/18 at 14:00 Sodium Chloride 1,000 ml @ 400 mls/hr Q2H30M PRN IV PATENCY; Start 08/28/18 at 14:00; Stop 08/29/18 at 01:59; Status DC Info (PHARMACY MONITORING -- do not chart) 1 each PRN DAILY PRN MC SEE COMMENTS; Start 08/28/18 at 15:30; Status UNV Info (PHARMACY MONITORING -- do not chart) 1 each PRN DAILY PRN MC SEE COMMENTS; Start 08/28/18 at 15:30; Status UNV Daptomycin 610 mg/ Sodium Chloride 50 ml @ 100 mls/hr Q48H IV ; Start 08/30/18 at 16:00; Stop 08/30/18 at 16:00; Status DC Famotidine (Pepcid Vial) 20 mg QHS IVP Last administered on 08/31/18at 20:59; Start 08/29/18 at 21:00; Stop 09/01/18 at 11:00; Status DC Acyclovir Sodium 340 mg/Dextrose 106.8 ml @ 106.8 mls/ hr Q12HR IV Last administered on 09/01/18at 11:05; Start 08/30/18 at 09:00; Stop 09/01/18 at 13:37; Status DC Sodium Chloride 1,000 ml @ 1,000 mls/hr Q1H PRN IV hypotension; Start 08/30/18 at 11:02; Stop 08/30/18 at 17:01; Status DC Sodium Chloride 1,000 ml @ 400 mls/hr Q2H30M PRN IV PATENCY; Start 08/30/18 at 11:02; Stop 08/30/18 at 23:01; Status DC Info (PHARMACY MONITORING -- do not chart) 1 each PRN DAILY PRN MC SEE COMMENTS; Start 08/30/18 at 11:15; Status UNV Info (PHARMACY MONITORING -- do not chart) 1 each PRN DAILY PRN MC SEE COMMENTS; Start 08/30/18 at 11:15; Status UNV Info (Tpn Per Pharmacy) 1 each PRN DAILY PRN MC SEE COMMENTS Last administered on 09/03/18at 07:41; Start 08/30/18 at 12:45 Sodium Chloride 90 meq/Potassium Chloride 50 meq/ Potassium Phosphate 3 mmol/ Magnesium Sulfate 10 meq/Calcium Gluconate 10 meq/ Multivitamins 10 ml/Chromium/ Copper/Manganese/ Seleni/Zn 1 ml/ Total Parenteral Nutrition/Amino Acids/Dextrose/ Fat Emulsion Intravenous 1,512 ml @ 63 mls/hr TPN CONT IV Last administered on 08/30/18at 21:40; Start 08/30/18 at 22:00; Stop 08/31/18 at 21:59; Status DC Ondansetron HCl (Zofran) 4 mg PRN Q6HRS PRN IV NAUSEA/VOMITING; Start 08/31/18 at 08:00 Haloperidol (Haldol) 2 mg PRN QID PRN PO AGITATION; Start 08/31/18 at 08:00; Stop 08/31/18 at 12:43; Status DC Haloperidol Lactate (HALDOL 2mg ORAL CONC) 2 mg PRN QID PRN PO AGITATION; Start 08/31/18 at 12:43 Sodium Chloride 90 meq/Potassium Chloride 50 meq/ Potassium Phosphate 5 mmol/ Magnesium Sulfate 3 meq/Calcium Gluconate 10 meq/ Multivitamins 10 ml/Chromium/ Copper/Manganese/ Seleni/Zn 1 ml/ Total Parenteral Nutrition/Amino Acids/Dextrose 1,512 ml @ 63 mls/hr TPN CONT IV Last administered on 08/31/18at 20:59; Start 08/31/18 at 22:00; Stop 09/01/18 at 21:59; Status DC Propofol 100 ml @ As Directed STK-MED ONCE IV ; Start 08/31/18 at 22:45; Stop 08/31/18 at 22:46; Status DC Succinylcholine Chloride (Anectine) 200 mg STK-MED ONCE .ROUTE ; Start 08/31/18 at 22:46; Stop 08/31/18 at 22:47; Status DC Atropine Sulfate (ATROPINE 1mg SYRINGE) 1 mg STK-MED ONCE .ROUTE ; Start 08/31/18 at 22:58; Stop 08/31/18 at 22:59; Status DC Fentanyl Citrate 30 ml @ 0 mls/hr CONT PRN IV SEE PROTOCOL Last administered on 09/03/18at 06:05; Start 09/01/18 at 00:00 Propofol 100 ml @ 0 mls/hr CONT PRN IV SEE PROTOCOL Last administered on 09/03/18at 06:06; Start 09/01/18 at 00:00 Chlorhexidine Gluconate (Peridex) 15 ml BID MM Last administered on 09/03/18at 09:00; Start 09/01/18 at 09:00 Midazolam HCl 100 ml @ 0 mls/hr CONT PRN IV SEE PROTOCOL; Start 09/01/18 at 00:00 Albuterol/ Ipratropium (Duoneb) 3 ml RTQID NEB Last administered on 09/03/18at 08:31; Start 09/01/18 at 08:00 Albuterol/ Ipratropium (Duoneb) 3 ml 1X ONCE NEB Last administered on 09/01/18at 01:10; Start 09/01/18 at 01:00; Stop 09/01/18 at 01:01; Status DC Succinylcholine Chloride (Anectine) 200 mg 1X ONCE IV Last administered on 08/31/18at 23:04; Start 09/01/18 at 01:15; Stop 09/01/18 at 01:16; Status DC Sodium Chloride 1,000 ml @ 1,000 mls/hr Q1H PRN IV hypotension; Start 09/01/18 at 07:00; Stop 09/01/18 at 12:59; Status DC Sodium Chloride (Normal Saline Flush) 10 ml 1X PRN PRN IV AP catheter pack; Start 09/01/18 at 07:00; Stop 09/02/18 at 06:59; Status DC Sodium Chloride (Normal Saline Flush) 10 ml 1X PRN PRN IV SHRIMP HEADER catheter pack; Start 09/01/18 at 07:00; Stop 09/02/18 at 06:59; Status DC Sodium Chloride 1,000 ml @ 400 mls/hr Q2H30M PRN IV PATENCY; Start 09/01/18 at 07:00; Stop 09/01/18 at 18:59; Status DC Info (PHARMACY MONITORING -- do not chart) 1 each PRN DAILY PRN MC SEE COMMENTS; Start 09/01/18 at 11:00; Status Cancel Info (PHARMACY MONITORING -- do not chart) 1 each PRN DAILY PRN MC SEE COMMENTS; Start 09/01/18 at 11:00 Famotidine (Pepcid Vial) 20 mg Q48H IVP ; Start 09/03/18 at 21:00 Sodium Chloride 90 meq/Potassium Chloride 50 meq/ Potassium Phosphate 10 mmol/ Calcium Gluconate 10 meq/ Multivitamins 10 ml/Chromium/ Copper/Manganese/ Seleni/Zn 1 ml/ Total Parenteral Nutrition/Amino Acids/Dextrose 1,512 ml @ 63 mls/hr TPN CONT IV Last administered on 09/01/18at 22:11; Start 09/01/18 at 22:00; Stop 09/02/18 at 21:59; Status DC Piperacillin Sod/ Tazobactam Sod 2.25 gm/Sodium Chloride 50 ml @ 100 mls/hr Q6HRS IV Last administered on 09/03/18at 05:56; Start 09/01/18 at 14:00 Sodium Chloride 110 meq/Potassium Chloride 50 meq/ Potassium Phosphate 10 mmol/ Calcium Gluconate 10 meq/ Multivitamins 10 ml/Chromium/ Copper/Manganese/ Seleni/Zn 1 ml/ Magnesium Sulfate 3 meq/Total Parenteral Nutrition/Amino Acids/Dextrose 1,512 ml @ 63 mls/hr TPN CONT IV Last administered on 09/02/18at 22:13; Start 09/02/18 at 22:00; Stop 09/03/18 at 21:59 Darbepoetin Phil (Aranesp) 100 mcg [id number] SQ ; Start 09/03/18 at 21:00 Active Scripts Active Potassium Chloride 20 Meq Tablet.er 20 Meq PO DAILY Orphenadrine Citrate 100 Mg Tablet.er 100 Mg PO Q12HR Anaprox Ds (Naproxen Sodium) 550 Mg Tablet 550 Mg PO Q12HR Reported Prednisone 20 Mg Tablet 1 Tab PO DAILY Hydrochlorothiazide Tablet (Hydrochlorothiazide) 12.5 Mg Tablet 12.5 Mg PO DAILY Shilpi Allergy (Fexofenadine Hcl) 180 Mg Tablet 1 Tab PO DAILY Vitals/I & O Vital Sign - Last 24 Hours 09/02/18 09/02/18 09/02/18 09/02/18 10:00 10:05 11:00 12:00 Pulse 89 85 Resp 22 22 B/P (MAP) 151/78 (102) 146/80 (102) Pulse Ox 100 99 100 O2 Delivery Ventilator Ventilator Ventilator Mechanical Ventilator 09/02/18 09/02/18 09/02/18 09/02/18 12:00 12:17 13:00 14:00 Temp 99.1 99.1 Pulse 76 78 Resp 18 18 B/P (MAP) 145/66 (92) 149/70 (96) Pulse Ox 100 100 100 100 O2 Delivery Ventilator Ventilator Ventilator Ventilator 09/02/18 09/02/18 09/02/18 09/02/18 14:00 15:00 16:00 16:00 Pulse 76 87 78 Resp 18 18 18 B/P (MAP) 155/72 (99) 173/73 (106) 144/63 (90) Pulse Ox 100 100 100 O2 Delivery Ventilator Ventilator Ventilator Mechanical Ventilator 09/02/18 09/02/18 09/02/18 09/02/18 16:07 17:00 17:51 18:00 Temp 98.6 98.6 Pulse 76 74 Resp 18 20 B/P (MAP) 147/62 (90) 160/72 (101) Pulse Ox 100 100 100 100 O2 Delivery Ventilator Ventilator Ventilator Ventilator 09/02/18 09/02/18 09/02/18 09/02/18 19:00 20:00 20:00 20:15 Temp 99.2 99.2 Pulse 76 78 Resp 18 20 18 B/P (MAP) 164/72 (102) 162/69 (100) Pulse Ox 100 100 100 O2 Delivery Ventilator Mechanical Ventilator Ventilator Ventilator 09/02/18 09/02/18 09/02/18 09/02/18 20:20 21:00 22:00 23:00 Pulse 80 80 77 Resp 18 18 18 B/P (MAP) 162/79 (106) 159/76 (103) 160/69 (99) Pulse Ox 100 100 100 100 O2 Delivery Ventilator Ventilator Ventilator Ventilator 09/02/18 09/02/18 09/02/18 09/03/18 23:40 23:59 23:59 01:00 Temp 98.8 98.8 Pulse 77 75 Resp 18 18 B/P (MAP) 145/65 (91) 146/72 (96) Pulse Ox 100 100 100 O2 Delivery Ventilator Mechanical Ventilator Ventilator Ventilator 09/03/18 09/03/18 09/03/18 09/03/18 02:00 02:09 03:00 04:00 Temp 98.2 98.2 Pulse 74 74 72 Resp 18 18 18 B/P (MAP) 141/74 (96) 140/73 (95) 149/74 (99) Pulse Ox 100 100 100 100 O2 Delivery Ventilator Ventilator Ventilator Ventilator 09/03/18 09/03/18 09/03/18 09/03/18 04:00 04:26 05:00 05:55 Pulse 69 Resp 18 B/P (MAP) 140/70 (93) Pulse Ox 100 100 100 O2 Delivery Mechanical Ventilator Ventilator Ventilator Ventilator 09/03/18 09/03/18 09/03/18 09/03/18 06:00 06:05 06:35 07:00 Pulse 70 70 Resp 18 18 18 18 B/P (MAP) 141/71 (94) 141/72 (95) Pulse Ox 100 100 100 100 O2 Delivery Ventilator Ventilator Ventilator Ventilator 09/03/18 09/03/18 09/03/18 09/03/18 08:00 08:00 08:31 09:00 Temp 97.4 97.4 Pulse 71 70 Resp 17 18 B/P (MAP) 140/71 (94) 149/81 (103) Pulse Ox 100 100 100 O2 Delivery Mechanical Ventilator Ventilator Ventilator Ventilator 09/03/18 09:17 Pulse Ox 100 O2 Delivery Ventilator Intake and Output 09/02/18 09/02/18 09/03/18 15:00 23:00 07:00 Intake Total 1690 ml 824 ml Output Total 2001 ml 773 ml 310 ml Balance -2001 ml 917 ml 514 ml VIJAY BLEVINS MD September 03, 2018 09:44
[2018-09-03] MEDS ORDERED: ALBUMIN HUMAN 25% 200 ML IV PRN (10:00)
[2018-09-03] MEDS ORDERED: IV NORMAL SALINE 1000ML BAG 1,000 ML IV PRN (10:00)
[2018-09-03] MEDS ORDERED: 0.9 % SODIUM CHLORIDE 10 ML DISP.SYRIN. IV PRN ×2 (10:00)
--- NOTE | 2018-09-03 10:54 | NUR ---
Pharmacy TPN Dosing Note S: STACIE ALEGRIA is a 52 year old M Currently receiving Central Continuous TPN started 08/30/18 B:Pertinent PMH: NPO; gastric distention Height: 5 feet, 8 inches Weight: 102.435311 kg Current diet: NPO LABS: Sodium: 135 Potassium: 5.2 Chloride: 100 Calcium: 7.8 Corrected Calcium: 9.32 Magnesium: 2.4 CO2: 20 SCr: 10.7 Glucose: 179 Albumin: 2.1 AST: 121 ALT: 57 TPN FORMULA: TPN TYPE: Central Continuous AMINO ACIDS: 100 gm DEXTROSE: 295 gm LIPIDS: 0 gm SODIUM CHLORIDE: 130 mEq SODIUM ACETATE: mEq SODIUM PHOSPHATE: mmol POTASSIUM CHLORIDE: 50 mEq POTASSIUM ACETATE: 20 mEq POTASSIUM PHOSPHATE: 0 mmol MAGNESIUM: 3 mEq CALCIUM: 10 mEq INSULIN: units MULTIPLE VITAMIN: 10 ml TRACE ELEMENTS: 1 ml(s) TPN PLAN: remove kphos from tpn, change kcl to kacetate and decrease to 20 meq (from 50 meq), increase nacl to 130 meq R: Continue TPN AT 63ML/HR Will monitor electrolytes, glucose, and tolerance to TPN. BALBIR HUMPHREY [facility], 09/03/18 [id number]
--- NOTE | 2018-09-03 11:18 | PDOC ---
G I PROGRESS NOTE Subjective Sedated on ventilator. Objective Lung parameters reportedly improving. NG output falling. Physical Exam Lungs clear anteriorly. RRR Abdomen soft. Bowel sounds present. NG output bilious. Review of Relevant I have reviewed the following items gera (where applicable) has been applied. Labs Laboratory Tests Test 09/02/18 05:50 09/02/18 05:55 09/03/18 05:45 09/03/18 08:30 Sodium Level 137 mmol/L (136-145) 135 mmol/L (136-145) Potassium Level 4.7 mmol/L (3.5-5.1) 5.2 mmol/L (3.5-5.1) Chloride Level 101 mmol/L (98-107) 100 mmol/L (98-107) Carbon Dioxide Level 24 mmol/L (21-32) 20 mmol/L (21-32) Anion Gap 12 (6-14) 15 (6-14) Blood Urea Nitrogen 68 mg/dL (8-26) 98 mg/dL (8-26) Creatinine 8.3 mg/dL (0.7-1.3) 10.7 mg/dL (0.7-1.3) Estimated GFR (Cockcroft-Gault) 6.8 5.1 Glucose Level 135 mg/dL (70-99) 179 mg/dL (70-99) Calcium Level 7.8 mg/dL (8.5-10.1) 7.8 mg/dL (8.5-10.1) Phosphorus Level 3.1 mg/dL (2.6-4.7) 5.8 mg/dL (2.6-4.7) Magnesium Level 2.4 mg/dL (1.8-2.4) Albumin 2.2 g/dL (3.4-5.0) 2.1 g/dL (3.4-5.0) O2 Saturation 96 % (92-99) 97 % (92-99) Arterial Blood pH 7.46 (7.35-7.45) 7.31 (7.35-7.45) Arterial Blood pCO2 at Patient Temp 32 mmHg (35-46) 35 mmHg (35-46) Arterial Blood pO2 at Patient Temp 96 mmHg (75-108) 125 mmHg (75-108) Arterial Blood HCO3 23 mmol/L (21-28) 17 mmol/L (21-28) Arterial Blood Base Excess -1 mmol/L (-3-3) -8 mmol/L (-3-3) FiO2 40 97 White Blood Count 7.9 x10^3/uL (4.0-11.0) Red Blood Count 2.62 x10^6/uL (4.30-5.70) Hemoglobin 7.6 g/dL (13.0-17.5) Hematocrit 22.6 % (39.0-53.0) Mean Corpuscular Volume 86 fL (79-100) Mean Corpuscular Hemoglobin 29 pg (25-35) Mean Corpuscular Hemoglobin Concent 34 g/dL (31-37) Red Cell Distribution Width 17.5 % (11.5-14.5) Platelet Count 139 x10^3/uL (140-400) Neutrophils (%) (Auto) 41 % (31-73) Lymphocytes (%) (Auto) 35 % (24-48) Monocytes (%) (Auto) 20 % (0-9) Eosinophils (%) (Auto) 3 % (0-3) Basophils (%) (Auto) 1 % (0-3) Neutrophils # (Auto) 3.3 x10^3uL (1.8-7.7) Lymphocytes # (Auto) 2.8 x10^3/uL (1.0-4.8) Monocytes # (Auto) 1.5 x10^3/uL (0.0-1.1) Eosinophils # (Auto) 0.3 x10^3/uL (0.0-0.7) Basophils # (Auto) 0.1 x10^3/uL (0.0-0.2) Laboratory Tests Test 09/03/18 05:45 09/03/18 08:30 White Blood Count 7.9 x10^3/uL (4.0-11.0) Red Blood Count 2.62 x10^6/uL (4.30-5.70) Hemoglobin 7.6 g/dL (13.0-17.5) Hematocrit 22.6 % (39.0-53.0) Mean Corpuscular Volume 86 fL (79-100) Mean Corpuscular Hemoglobin 29 pg (25-35) Mean Corpuscular Hemoglobin Concent 34 g/dL (31-37) Red Cell Distribution Width 17.5 % (11.5-14.5) Platelet Count 139 x10^3/uL (140-400) Neutrophils (%) (Auto) 41 % (31-73) Lymphocytes (%) (Auto) 35 % (24-48) Monocytes (%) (Auto) 20 % (0-9) Eosinophils (%) (Auto) 3 % (0-3) Basophils (%) (Auto) 1 % (0-3) Neutrophils # (Auto) 3.3 x10^3uL (1.8-7.7) Lymphocytes # (Auto) 2.8 x10^3/uL (1.0-4.8) Monocytes # (Auto) 1.5 x10^3/uL (0.0-1.1) Eosinophils # (Auto) 0.3 x10^3/uL (0.0-0.7) Basophils # (Auto) 0.1 x10^3/uL (0.0-0.2) Sodium Level 135 mmol/L (136-145) Potassium Level 5.2 mmol/L (3.5-5.1) Chloride Level 100 mmol/L (98-107) Carbon Dioxide Level 20 mmol/L (21-32) Anion Gap 15 (6-14) Blood Urea Nitrogen 98 mg/dL (8-26) Creatinine 10.7 mg/dL (0.7-1.3) Estimated GFR (Cockcroft-Gault) 5.1 Glucose Level 179 mg/dL (70-99) Calcium Level 7.8 mg/dL (8.5-10.1) Phosphorus Level 5.8 mg/dL (2.6-4.7) Albumin 2.1 g/dL (3.4-5.0) O2 Saturation 97 % (92-99) Arterial Blood pH 7.31 (7.35-7.45) Arterial Blood pCO2 at Patient Temp 35 mmHg (35-46) Arterial Blood pO2 at Patient Temp 125 mmHg (75-108) Arterial Blood HCO3 17 mmol/L (21-28) Arterial Blood Base Excess -8 mmol/L (-3-3) FiO2 97 Microbiology 09/02/18 Blood Culture - Preliminary, Resulted NO GROWTH AFTER 1 DAY 08/29/18 CSF Gram Stain - Final, Complete 08/27/18 Stool Culture - Final, Complete 08/27/18 Stool Culture Result 1 (LOTUS) - Final, Complete 08/27/18 Campylobacter Antigen Assay - Final, Complete 08/27/18 Campylobactor Result 1 - Final, Complete 08/27/18 Shiga Toxin Test - Final, Complete Platelets, LFT's have been improving. Renal function continues to be an issue. Vitals/I & O Vital Sign - Last 24 Hours 09/02/18 09/02/18 09/02/18 09/02/18 12:00 12:00 12:17 13:00 Temp 99.1 99.1 Pulse 76 78 Resp 18 18 B/P (MAP) 145/66 (92) 149/70 (96) Pulse Ox 100 100 100 O2 Delivery Mechanical Ventilator Ventilator Ventilator Ventilator 09/02/18 09/02/18 09/02/18 09/02/18 14:00 14:00 15:00 16:00 Pulse 76 87 78 Resp 18 18 18 B/P (MAP) 155/72 (99) 173/73 (106) 144/63 (90) Pulse Ox 100 100 100 100 O2 Delivery Ventilator Ventilator Ventilator Ventilator 09/02/18 09/02/18 09/02/18 09/02/18 16:00 16:07 17:00 17:51 Temp 98.6 98.6 Pulse 76 Resp 18 B/P (MAP) 147/62 (90) Pulse Ox 100 100 100 O2 Delivery Mechanical Ventilator Ventilator Ventilator Ventilator 09/02/18 09/02/18 09/02/18 09/02/18 18:00 19:00 20:00 20:00 Temp 99.2 99.2 Pulse 74 76 78 Resp 20 18 20 B/P (MAP) 160/72 (101) 164/72 (102) 162/69 (100) Pulse Ox 100 100 100 O2 Delivery Ventilator Ventilator Mechanical Ventilator Ventilator 09/02/18 09/02/18 09/02/18 09/02/18 20:15 20:20 21:00 22:00 Pulse 80 80 Resp 18 18 18 B/P (MAP) 162/79 (106) 159/76 (103) Pulse Ox 100 100 100 100 O2 Delivery Ventilator Ventilator Ventilator Ventilator 09/02/18 09/02/18 09/02/18 09/02/18 23:00 23:40 23:59 23:59 Temp 98.8 98.8 Pulse 77 77 Resp 18 18 B/P (MAP) 160/69 (99) 145/65 (91) Pulse Ox 100 100 100 O2 Delivery Ventilator Ventilator Mechanical Ventilator Ventilator 09/03/18 09/03/18 09/03/18 09/03/18 01:00 02:00 02:09 03:00 Pulse 75 74 74 Resp 18 18 18 B/P (MAP) 146/72 (96) 141/74 (96) 140/73 (95) Pulse Ox 100 100 100 100 O2 Delivery Ventilator Ventilator Ventilator Ventilator 09/03/18 09/03/18 09/03/18 09/03/18 04:00 04:00 04:26 05:00 Temp 98.2 98.2 Pulse 72 69 Resp 18 18 B/P (MAP) 149/74 (99) 140/70 (93) Pulse Ox 100 100 100 O2 Delivery Ventilator Mechanical Ventilator Ventilator Ventilator 09/03/18 09/03/18 09/03/18 09/03/18 05:55 06:00 06:05 06:35 Pulse 70 Resp 18 18 18 B/P (MAP) 141/71 (94) Pulse Ox 100 100 100 100 O2 Delivery Ventilator Ventilator Ventilator Ventilator 09/03/18 09/03/18 09/03/18 09/03/18 07:00 08:00 08:00 08:31 Temp 97.4 97.4 Pulse 70 71 Resp 18 17 B/P (MAP) 141/72 (95) 140/71 (94) Pulse Ox 100 100 100 O2 Delivery Ventilator Mechanical Ventilator Ventilator Ventilator 09/03/18 09/03/18 09/03/18 09:00 09:17 10:00 Pulse 70 71 Resp 18 19 B/P (MAP) 149/81 (103) 156/81 (106) Pulse Ox 100 100 100 O2 Delivery Ventilator Ventilator Ventilator Intake and Output 09/02/18 09/02/18 09/03/18 15:00 23:00 07:00 Intake Total 1690 ml 824 ml Output Total 2002 ml 773 ml 310 ml Balance -2001 ml 917 ml 514 ml Problem List Problems Medical Problems: (1) Acute renal failure Status: Acute Assessment MOSF, some parts better. Renal failure continues. Triggering event less clear, though history has favored tick-borne illness. Plan of Care: Continue current Tx, Mgmt Plan of Care Note Will try clamping NG for several hours. If nil residual, could try tube feeding. KAVYA LEDESMA MD September 03, 2018 11:18
--- NOTE | 2018-09-03 11:30 | PDOC ---
SURGICAL PROGRESS NOTE Subjective minimal NG output Vital Signs Vital Signs Date Time Temp Pulse Resp B/P (MAP) Pulse Ox O2 Delivery O2 Flow Rate FiO2 09/03/18 10:00 71 19 156/81 (106) 100 Ventilator 09/03/18 08:00 97.4 97.4 I&O Intake and Output 09/03/18 06:59 Intake Total 2514 ml Output Total 3340 ml Balance -826 ml IV Total 2514 ml Output Urine Total 90 ml Gastric Drainage Total 3250 ml General: Other (vent) Abdomen: Soft, Other (less distended ) Labs Laboratory Tests Test 09/02/18 05:50 09/02/18 05:55 09/03/18 05:45 09/03/18 08:30 Sodium Level 137 mmol/L (136-145) 135 mmol/L (136-145) Potassium Level 4.7 mmol/L (3.5-5.1) 5.2 mmol/L (3.5-5.1) Chloride Level 101 mmol/L (98-107) 100 mmol/L (98-107) Carbon Dioxide Level 24 mmol/L (21-32) 20 mmol/L (21-32) Anion Gap 12 (6-14) 15 (6-14) Blood Urea Nitrogen 68 mg/dL (8-26) 98 mg/dL (8-26) Creatinine 8.3 mg/dL (0.7-1.3) 10.7 mg/dL (0.7-1.3) Estimated GFR (Cockcroft-Gault) 6.8 5.1 Glucose Level 135 mg/dL (70-99) 179 mg/dL (70-99) Calcium Level 7.8 mg/dL (8.5-10.1) 7.8 mg/dL (8.5-10.1) Phosphorus Level 3.1 mg/dL (2.6-4.7) 5.8 mg/dL (2.6-4.7) Magnesium Level 2.4 mg/dL (1.8-2.4) Albumin 2.2 g/dL (3.4-5.0) 2.1 g/dL (3.4-5.0) O2 Saturation 96 % (92-99) 97 % (92-99) Arterial Blood pH 7.46 (7.35-7.45) 7.31 (7.35-7.45) Arterial Blood pCO2 at Patient Temp 32 mmHg (35-46) 35 mmHg (35-46) Arterial Blood pO2 at Patient Temp 96 mmHg (75-108) 125 mmHg (75-108) Arterial Blood HCO3 23 mmol/L (21-28) 17 mmol/L (21-28) Arterial Blood Base Excess -1 mmol/L (-3-3) -8 mmol/L (-3-3) FiO2 40 97 White Blood Count 7.9 x10^3/uL (4.0-11.0) Red Blood Count 2.62 x10^6/uL (4.30-5.70) Hemoglobin 7.6 g/dL (13.0-17.5) Hematocrit 22.6 % (39.0-53.0) Mean Corpuscular Volume 86 fL (79-100) Mean Corpuscular Hemoglobin 29 pg (25-35) Mean Corpuscular Hemoglobin Concent 34 g/dL (31-37) Red Cell Distribution Width 17.5 % (11.5-14.5) Platelet Count 139 x10^3/uL (140-400) Neutrophils (%) (Auto) 41 % (31-73) Lymphocytes (%) (Auto) 35 % (24-48) Monocytes (%) (Auto) 20 % (0-9) Eosinophils (%) (Auto) 3 % (0-3) Basophils (%) (Auto) 1 % (0-3) Neutrophils # (Auto) 3.3 x10^3uL (1.8-7.7) Lymphocytes # (Auto) 2.8 x10^3/uL (1.0-4.8) Monocytes # (Auto) 1.5 x10^3/uL (0.0-1.1) Eosinophils # (Auto) 0.3 x10^3/uL (0.0-0.7) Basophils # (Auto) 0.1 x10^3/uL (0.0-0.2) Laboratory Tests Test 09/03/18 05:45 09/03/18 08:30 White Blood Count 7.9 x10^3/uL (4.0-11.0) Red Blood Count 2.62 x10^6/uL (4.30-5.70) Hemoglobin 7.6 g/dL (13.0-17.5) Hematocrit 22.6 % (39.0-53.0) Mean Corpuscular Volume 86 fL (79-100) Mean Corpuscular Hemoglobin 29 pg (25-35) Mean Corpuscular Hemoglobin Concent 34 g/dL (31-37) Red Cell Distribution Width 17.5 % (11.5-14.5) Platelet Count 139 x10^3/uL (140-400) Neutrophils (%) (Auto) 41 % (31-73) Lymphocytes (%) (Auto) 35 % (24-48) Monocytes (%) (Auto) 20 % (0-9) Eosinophils (%) (Auto) 3 % (0-3) Basophils (%) (Auto) 1 % (0-3) Neutrophils # (Auto) 3.3 x10^3uL (1.8-7.7) Lymphocytes # (Auto) 2.8 x10^3/uL (1.0-4.8) Monocytes # (Auto) 1.5 x10^3/uL (0.0-1.1) Eosinophils # (Auto) 0.3 x10^3/uL (0.0-0.7) Basophils # (Auto) 0.1 x10^3/uL (0.0-0.2) Sodium Level 135 mmol/L (136-145) Potassium Level 5.2 mmol/L (3.5-5.1) Chloride Level 100 mmol/L (98-107) Carbon Dioxide Level 20 mmol/L (21-32) Anion Gap 15 (6-14) Blood Urea Nitrogen 98 mg/dL (8-26) Creatinine 10.7 mg/dL (0.7-1.3) Estimated GFR (Cockcroft-Gault) 5.1 Glucose Level 179 mg/dL (70-99) Calcium Level 7.8 mg/dL (8.5-10.1) Phosphorus Level 5.8 mg/dL (2.6-4.7) Albumin 2.1 g/dL (3.4-5.0) O2 Saturation 97 % (92-99) Arterial Blood pH 7.31 (7.35-7.45) Arterial Blood pCO2 at Patient Temp 35 mmHg (35-46) Arterial Blood pO2 at Patient Temp 125 mmHg (75-108) Arterial Blood HCO3 17 mmol/L (21-28) Arterial Blood Base Excess -8 mmol/L (-3-3) FiO2 97 Problem List Problems Medical Problems: (1) Acute renal failure Status: Acute Assessment/Plan d/w nurse, gi attempting clamping trial will follow INDIGO BELTRAN APRN September 03, 2018 11:30
--- NOTE | 2018-09-03 15:02 | PDOC ---
PULMONARY PROGRESS NOTES Subjective intubated 08/31, NOW ON AC MODE SEDATED Vitals Vital Signs Date Time Temp Pulse Resp B/P (MAP) Pulse Ox O2 Delivery O2 Flow Rate FiO2 09/03/18 14:21 100 Ventilator 09/03/18 14:00 72 19 148/66 (93) 09/03/18 12:00 98.2 98.2 Lungs: Crackles Cardiovascular: S1, S2 Abdomen: Soft, Non-tender, Other (no mass) Extremities: No Edema Skin: Warm Labs Laboratory Tests Test 09/02/18 05:50 09/02/18 05:55 09/03/18 05:45 09/03/18 08:30 Sodium Level 137 mmol/L (136-145) 135 mmol/L (136-145) Potassium Level 4.7 mmol/L (3.5-5.1) 5.2 mmol/L (3.5-5.1) Chloride Level 101 mmol/L (98-107) 100 mmol/L (98-107) Carbon Dioxide Level 24 mmol/L (21-32) 20 mmol/L (21-32) Anion Gap 12 (6-14) 15 (6-14) Blood Urea Nitrogen 68 mg/dL (8-26) 98 mg/dL (8-26) Creatinine 8.3 mg/dL (0.7-1.3) 10.7 mg/dL (0.7-1.3) Estimated GFR (Cockcroft-Gault) 6.8 5.1 Glucose Level 135 mg/dL (70-99) 179 mg/dL (70-99) Calcium Level 7.8 mg/dL (8.5-10.1) 7.8 mg/dL (8.5-10.1) Phosphorus Level 3.1 mg/dL (2.6-4.7) 5.8 mg/dL (2.6-4.7) Magnesium Level 2.4 mg/dL (1.8-2.4) Albumin 2.2 g/dL (3.4-5.0) 2.1 g/dL (3.4-5.0) O2 Saturation 96 % (92-99) 97 % (92-99) Arterial Blood pH 7.46 (7.35-7.45) 7.31 (7.35-7.45) Arterial Blood pCO2 at Patient Temp 32 mmHg (35-46) 35 mmHg (35-46) Arterial Blood pO2 at Patient Temp 96 mmHg (75-108) 125 mmHg (75-108) Arterial Blood HCO3 23 mmol/L (21-28) 17 mmol/L (21-28) Arterial Blood Base Excess -1 mmol/L (-3-3) -8 mmol/L (-3-3) FiO2 40 97 White Blood Count 7.9 x10^3/uL (4.0-11.0) Red Blood Count 2.62 x10^6/uL (4.30-5.70) Hemoglobin 7.6 g/dL (13.0-17.5) Hematocrit 22.6 % (39.0-53.0) Mean Corpuscular Volume 86 fL (79-100) Mean Corpuscular Hemoglobin 29 pg (25-35) Mean Corpuscular Hemoglobin Concent 34 g/dL (31-37) Red Cell Distribution Width 17.5 % (11.5-14.5) Platelet Count 139 x10^3/uL (140-400) Neutrophils (%) (Auto) 41 % (31-73) Lymphocytes (%) (Auto) 35 % (24-48) Monocytes (%) (Auto) 20 % (0-9) Eosinophils (%) (Auto) 3 % (0-3) Basophils (%) (Auto) 1 % (0-3) Neutrophils # (Auto) 3.3 x10^3uL (1.8-7.7) Lymphocytes # (Auto) 2.8 x10^3/uL (1.0-4.8) Monocytes # (Auto) 1.5 x10^3/uL (0.0-1.1) Eosinophils # (Auto) 0.3 x10^3/uL (0.0-0.7) Basophils # (Auto) 0.1 x10^3/uL (0.0-0.2) Treponema pallidum Antibody Nonreactive (Nonreactive) Laboratory Tests Test 09/03/18 05:45 09/03/18 08:30 White Blood Count 7.9 x10^3/uL (4.0-11.0) Red Blood Count 2.62 x10^6/uL (4.30-5.70) Hemoglobin 7.6 g/dL (13.0-17.5) Hematocrit 22.6 % (39.0-53.0) Mean Corpuscular Volume 86 fL (79-100) Mean Corpuscular Hemoglobin 29 pg (25-35) Mean Corpuscular Hemoglobin Concent 34 g/dL (31-37) Red Cell Distribution Width 17.5 % (11.5-14.5) Platelet Count 139 x10^3/uL (140-400) Neutrophils (%) (Auto) 41 % (31-73) Lymphocytes (%) (Auto) 35 % (24-48) Monocytes (%) (Auto) 20 % (0-9) Eosinophils (%) (Auto) 3 % (0-3) Basophils (%) (Auto) 1 % (0-3) Neutrophils # (Auto) 3.3 x10^3uL (1.8-7.7) Lymphocytes # (Auto) 2.8 x10^3/uL (1.0-4.8) Monocytes # (Auto) 1.5 x10^3/uL (0.0-1.1) Eosinophils # (Auto) 0.3 x10^3/uL (0.0-0.7) Basophils # (Auto) 0.1 x10^3/uL (0.0-0.2) Sodium Level 135 mmol/L (136-145) Potassium Level 5.2 mmol/L (3.5-5.1) Chloride Level 100 mmol/L (98-107) Carbon Dioxide Level 20 mmol/L (21-32) Anion Gap 15 (6-14) Blood Urea Nitrogen 98 mg/dL (8-26) Creatinine 10.7 mg/dL (0.7-1.3) Estimated GFR (Cockcroft-Gault) 5.1 Glucose Level 179 mg/dL (70-99) Calcium Level 7.8 mg/dL (8.5-10.1) Phosphorus Level 5.8 mg/dL (2.6-4.7) Albumin 2.1 g/dL (3.4-5.0) Treponema pallidum Antibody Nonreactive (Nonreactive) O2 Saturation 97 % (92-99) Arterial Blood pH 7.31 (7.35-7.45) Arterial Blood pCO2 at Patient Temp 35 mmHg (35-46) Arterial Blood pO2 at Patient Temp 125 mmHg (75-108) Arterial Blood HCO3 17 mmol/L (21-28) Arterial Blood Base Excess -8 mmol/L (-3-3) FiO2 97 Medications Active Scripts Medications Dose Route/Sig Max Daily Dose Days Date Category Prednisone 20 Mg Tablet 1 Tab PO DAILY 08/26/18 Reported Hydrochlorothiazide Tablet (Hydrochlorothiazide) 12.5 Mg Tablet 12.5 Mg PO DAILY 08/26/18 Reported Shilpi Allergy (Fexofenadine Hcl) 180 Mg Tablet 1 Tab PO DAILY 08/26/18 Reported Potassium Chloride 20 Meq Tablet.er 20 Meq PO DAILY 08/24/18 Rx Orphenadrine Citrate 100 Mg Tablet.er 100 Mg PO Q12HR 02/03/16 Rx Anaprox Ds (Naproxen Sodium) 550 Mg Tablet 550 Mg PO Q12HR 02/03/16 Rx Comments CXR REVIEWED Impression . IMPRESSION: 1. Acute hypoxemic respiratory failure, multifactorial, suspect acute lung injury from recent infection. 2. Suspect tick-borne illness. SO FAR ALL CULTURES AND SEROLGY NEGATIVE 3. Fever. 4. Lactic acidosis. 5. Acute renal failure. 6. Acute hepatic injury. 7. Thrombocytopenia, improving. 8. Hemochromatosis. 9. ACUTE TOXIC MET ENCEPH POA 10 DYSPHAGIA 11.ENCEPHALITIS ID NOTE RESULTS Ehrlichiae Ab neg RMSF neg, though need convalescent serology [place] IgG +, IgM neg, old exposure HSV PCR neg Plan . AC MODE FOR SUPPORT ANTIBX PER ID NUTRION PER TPN PT WITH ILEUS fu sputum cx difficult intubation, need upper airway test bf sbt when ready cont doxy, id added bryson D/W RN, NOT READY FOR WEAN ANISH DENNIS MD September 03, 2018 15:02
[2018-09-03] MEDS ORDERED: DIALYSIS PATIENT. MC PRN (18:15)
[2018-09-03] MEDS ORDERED: DEXTROSE 70% IV SCH ×8 (22:00)
[2018-09-03] MEDS ORDERED: [UNRECOGNIZED DRUG - OTHER] IV SCH ×8 (22:00)
[2018-09-03] MEDS ORDERED: AMINO ACID IV SCH ×8 (22:00)
[2018-09-03] MEDS ORDERED: TOTAL PARENTERAL NUTRITION IV SCH ×8 (22:00)
[2018-09-03] MEDS: DARBEPOETIN ALFA 100 MCG/0.5 ML DISP.SYRIN. SQ SCH (22:11)
[2018-09-03] MEDS: FAMOTIDINE 20 MG/2 ML VIAL IVP SCH (22:11)
[2018-09-04] VITALS (22 sets, daily range): BP systolic 125–155; BP diastolic 65–81
[2018-09-04] MEDS: PROPOFOL 100 ML IV PRN ×5 (03:21→20:09)
[2018-09-04 05:31] LABS: CALCIUM 7.6 mg/dL (8.5-10.1); CREATININE 6.4 mg/dL (0.7-1.3); GFR 9.2; PHOSPHORUS 4.2 mg/dL (2.6-4.7)
[2018-09-04 05:35] LABS: POTASSIUM 4.7 mmol/L (3.5-5.1)
[2018-09-04] MEDS: PIPERACILLIN/TAZOBACTAM 2.25 GM in IV NORMAL SALINE 50ML 50 ML IV SCH ×3 (06:43→20:09)
--- NOTE | 2018-09-04 07:43 | PDOC ---
Infectious Disease Note Subjective: Subjective intubated on vent t 100.6 D/W RN ROS: ROS unable to obtain Vital Signs: Vital Signs Vital Signs Date Time Temp Pulse Resp B/P (MAP) Pulse Ox O2 Delivery O2 Flow Rate FiO2 09/04/18 06:08 100 15.0 09/04/18 06:00 88 16 140/67 (91) Ventilator 09/04/18 04:00 100.4 100.4 Physical Exam: PHYSICAL EXAM GENERAL:sedated on vent HEENT: Pupils equally round, reactive. No conjunctivae petechia. ETT + NECK: Supple.HDC and Rt IJ in place LUNGS: dec bs at bases HEART: S1 and S2. ABDOMEN: Obese, soft, nontender with bowel sounds present. rose in place ,minimal urine output EXTREMITIES:no edema,no cyanosis. SKIN: Warm without rash. Left knee has several scabs/scarring.healing NEUROLOGIC: sedated on vent Medications: Inpatient Meds: Current Medications Medications (Trade) Dose Ordered Sig/Noemi Start Time Stop Time Status Last Admin Dose Admin Acetaminophen (Tylenol Supp) 650 mg PRN Q6HRS PRN 08/27/18 21:15 09/02/18 01:18 650 MG Acetaminophen (Tylenol) 650 mg PRN Q6HRS PRN 08/27/18 21:15 Acyclovir Sodium 340 mg/Dextrose 106.8 ml @ 106.8 mls/ hr Q12HR 08/30/18 09:00 09/01/18 13:37 DC 09/01/18 11:05 106.8 MLS/HR Albumin Human 200 ml @ 200 mls/hr 1X PRN PRN 09/03/18 10:00 09/03/18 21:00 DC Albuterol/ Ipratropium (Duoneb) 3 ml 1X ONCE 09/01/18 01:00 09/01/18 01:01 DC 09/01/18 01:10 3 ML Atropine Sulfate (ATROPINE 1mg SYRINGE) 1 mg STK-MED ONCE 08/31/18 22:58 08/31/18 22:59 DC Aztreonam (Azactam) 2 gm 1X ONCE 08/25/18 21:15 08/25/18 21:16 DC 08/25/18 21:15 2 GM Benzocaine (Hurricaine One) 1 spray 1X STAT 08/28/18 10:16 08/28/18 10:19 DC 08/28/18 10:16 1 SPRAY Ceftriaxone Sodium (Rocephin) 1 gm 1X ONCE 08/25/18 20:30 08/25/18 20:31 DC 08/25/18 20:36 1 GM Chlorhexidine Gluconate (Peridex) 15 ml BID 09/01/18 09:00 09/03/18 22:12 15 ML Daptomycin 610 mg/ Sodium Chloride 50 ml @ 100 mls/hr Q48H 08/30/18 16:00 08/30/18 16:00 DC Darbepoetin Phil (Aranesp) 100 mcg WEEKLYHS 09/03/18 21:00 09/03/18 22:11 100 MCG Doxycycline Hyclate 100 mg/ Dextrose 100 ml @ 50 mls/hr Q12HR 08/26/18 09:00 09/03/18 22:11 50 MLS/HR Famotidine (Pepcid Vial) 20 mg Q48H 09/03/18 21:00 09/03/18 22:11 20 MG Famotidine (Pepcid) 20 mg Q48H 08/29/18 09:00 08/29/18 11:29 DC Fentanyl Citrate 30 ml @ 0 mls/hr CONT PRN 09/01/18 00:00 09/04/18 05:38 2.5 MLS/HR Fentanyl Citrate (Fentanyl 2ml Vial) 50 mcg PRN Q4HRS PRN 08/28/18 15:30 08/28/18 21:44 50 MCG Haloperidol (Haldol) 2 mg PRN QID PRN 08/31/18 08:00 08/31/18 12:43 DC Haloperidol Lactate (HALDOL 2mg ORAL CONC) 2 mg PRN QID PRN 08/31/18 12:43 Haloperidol Lactate (Haldol Inj) 5 mg PRN Q6HRS PRN 08/28/18 12:00 08/29/18 20:31 5 MG Heparin Sodium (Porcine) (Heparin Sodium) 10,000 unit STK-MED ONCE 08/26/18 12:49 08/26/18 12:50 DC Ibuprofen (Motrin) 600 mg 1X ONCE 08/25/18 19:45 08/25/18 19:49 DC 08/25/18 20:38 600 MG Info (PHARMACY MONITORING -- do not chart) 1 each PRN DAILY PRN 09/03/18 18:15 UNV Info (Tpn Per Pharmacy) 1 each PRN DAILY PRN 08/30/18 12:45 09/03/18 10:53 1 EACH Lactobacillus Rhamnosus (Culturelle) 1 cap BID 08/26/18 21:00 09/03/18 22:12 1 CAP Lidocaine HCl (Glydo (Lidocaine) Jelly) 1 meng 1X STAT 08/28/18 10:16 08/28/18 10:19 DC 08/28/18 10:16 1 MENG Lidocaine/Sodium Bicarbonate (Buffered Lidocaine 1%) 3 ml 1X ONCE 08/28/18 10:30 08/28/18 10:31 DC Magnesium Sulfate 50 ml @ 25 mls/hr 1X ONCE 08/25/18 21:15 08/25/18 23:14 DC 08/25/18 23:51 25 MLS/HR Meropenem 500 mg/ Sodium Chloride 50 ml @ 100 mls/hr DAILY 08/26/18 09:00 08/30/18 08:17 DC 08/29/18 10:13 100 MLS/HR Midazolam HCl 100 ml @ 0 mls/hr CONT PRN 09/01/18 00:00 Norepinephrine Bitartrate 250 ml @ 0 mls/hr CONT PRN 08/26/18 09:15 08/30/18 17:20 DC 08/27/18 10:21 1.88 MLS/HR Ondansetron HCl (Zofran) 4 mg PRN Q6HRS PRN 08/31/18 08:00 Piperacillin Sod/ Tazobactam Sod 2.25 gm/Sodium Chloride 50 ml @ 100 mls/hr Q6HRS 09/01/18 14:00 09/04/18 06:43 100 MLS/HR Piperacillin Sod/ Tazobactam Sod 4.5 gm/Sodium Chloride 100 ml @ 200 mls/hr 1X ONCE 08/25/18 21:15 08/25/18 21:44 DC Propofol 100 ml @ 0 mls/hr CONT PRN 09/01/18 00:00 09/04/18 03:21 23.315 MLS/HR Sodium Chloride 1,000 ml @ 400 mls/hr Q2H30M PRN 09/03/18 10:00 09/03/18 21:59 DC Sodium Chloride (Normal Saline Flush) 10 ml 1X PRN PRN 09/03/18 10:00 09/03/18 21:00 DC Sodium Chloride 90 meq/Potassium Chloride 50 meq/ Potassium Phosphate 10 mmol/ Calcium Gluconate 10 meq/ Multivitamins 10 ml/Chromium/ Copper/Manganese/ Seleni/Zn 1 ml/ Total Parenteral Nutrition/Amino Acids/Dextrose 1,512 ml @ 63 mls/hr TPN CONT 09/01/18 22:00 09/02/18 21:59 DC 09/01/18 22:11 63 MLS/HR Sodium Chloride 90 meq/Potassium Chloride 50 meq/ Potassium Phosphate 3 mmol/ Magnesium Sulfate 10 meq/Calcium Gluconate 10 meq/ Multivitamins 10 ml/Chromium/ Copper/Manganese/ Seleni/Zn 1 ml/ Total Parenteral Nutrition/Amino Acids/Dextrose/ Fat Emulsion Intravenous 1,512 ml @ 63 mls/hr TPN CONT 08/30/18 22:00 08/31/18 21:59 DC 08/30/18 21:40 63 MLS/HR Sodium Chloride 90 meq/Potassium Chloride 50 meq/ Potassium Phosphate 5 mmol/ Magnesium Sulfate 3 meq/Calcium Gluconate 10 meq/ Multivitamins 10 ml/Chromium/ Copper/Manganese/ Seleni/Zn 1 ml/ Total Parenteral Nutrition/Amino Acids/Dextrose 1,512 ml @ 63 mls/hr TPN CONT 08/31/18 22:00 09/01/18 21:59 DC 08/31/18 20:59 63 MLS/HR Sodium Chloride 110 meq/Potassium Chloride 50 meq/ Potassium Phosphate 10 mmol/ Calcium Gluconate 10 meq/ Multivitamins 10 ml/Chromium/ Copper/Manganese/ Seleni/Zn 1 ml/ Magnesium Sulfate 3 meq/Total Parenteral Nutrition/Amino Acids/Dextrose 1,512 ml @ 63 mls/hr TPN CONT 09/02/18 22:00 09/03/18 21:59 DC 09/02/18 22:13 63 MLS/HR Sodium Chloride 130 meq/Potassium Acetate 20 meq/ Calcium Gluconate 10 meq/ Multivitamins 10 ml/Chromium/ Copper/Manganese/ Seleni/Zn 1 ml/ Magnesium Sulfate 3 meq/Total Parenteral Nutrition/Amino Acids/Dextrose 1,512 ml @ 63 mls/hr TPN CONT 09/03/18 22:00 09/04/18 21:59 09/03/18 22:12 63 MLS/HR Succinylcholine Chloride (Anectine) 200 mg 1X ONCE 09/01/18 01:15 09/01/18 01:16 DC 08/31/18 23:04 200 MG Vancomycin HCl 2 gm/Sodium Chloride 500 ml @ 250 mls/hr 1X ONCE 08/25/18 21:30 08/25/18 23:29 DC 08/25/18 23:10 250 MLS/HR Labs: Lab Laboratory Tests Test 09/03/18 08:30 09/04/18 05:00 O2 Saturation 97 % (92-99) Arterial Blood pH 7.31 (7.35-7.45) Arterial Blood pCO2 at Patient Temp 35 mmHg (35-46) Arterial Blood pO2 at Patient Temp 125 mmHg (75-108) Arterial Blood HCO3 17 mmol/L (21-28) Arterial Blood Base Excess -8 mmol/L (-3-3) FiO2 97 Sodium Level 135 mmol/L (136-145) Potassium Level 4.7 mmol/L (3.5-5.1) Chloride Level 98 mmol/L (98-107) Carbon Dioxide Level 25 mmol/L (21-32) Anion Gap 12 (6-14) Blood Urea Nitrogen 55 mg/dL (8-26) Creatinine 6.4 mg/dL (0.7-1.3) Estimated GFR (Cockcroft-Gault) 9.2 Glucose Level 148 mg/dL (70-99) Calcium Level 7.6 mg/dL (8.5-10.1) Phosphorus Level 4.2 mg/dL (2.6-4.7) Albumin 2.0 g/dL (3.4-5.0) Objective: Assessment: Tick-born illness suspected w/u negative for ehrlichia ,RMSF Ehrlichiae Ab neg RMSF neg, though need convalescent serology [place] IgG +, IgM neg, old exposure HSV PCR neg Arboviral panel not available Enteroviral pcr not available Lactic acidosis Fever intermitent , Bandemia resolved leucocytosis improving Acute hepatic injury RADHA (Recent Bactrim/ibuprofen) Thrombocytopenia resolved Hemochromatosis, followed by [facility] Diarrhea, resolved Dermatitis RLE improved encephalopathy waxing and waning etiology unclear MRI neg CSF pleocytosis ,cultures and serologies negative Plan: Plan of Care low grade fevers r/o RAFI DC doxy,add levaquin cont zosyn repeat bc from line ua urine c/s dc RT IJ if possible trach c/s D/w D/w nursing JEFF PARKER MD September 04, 2018 07:43
[2018-09-04] MEDS ORDERED: IV NORMAL SALINE 1000ML BAG 1,000 ML IV PRN ×2 (08:23)
[2018-09-04] MEDS ORDERED: ALBUMIN HUMAN 25% 200 ML IV PRN (08:30)
[2018-09-04] MEDS ORDERED: DIALYSIS PATIENT. MC PRN ×2 (08:30)
[2018-09-04] MEDS: CHLORHEXIDINE 0.12% 15 ML MOUTHWASH. MM SCH (08:46)
[2018-09-04] MEDS: LACTOBACILLUS RHAMNOSUS GG 1 CAPSULE. PO SCH (08:46)
--- NOTE | 2018-09-04 08:56 | PDOC ---
PROGRESS NOTES Subjective Subjective HPI - f/u of Thrombocytopenia ROS - no bleeding Objective Objective Vital Signs Date Time Temp Pulse Resp B/P (MAP) Pulse Ox O2 Delivery O2 Flow Rate FiO2 09/04/18 08:00 Mechanical Ventilator 09/04/18 08:00 102.0 88 18 141/69 (93) 97 102.0 09/04/18 06:08 15.0 Intake and Output 09/04/18 07:00 Intake Total 2703 ml Output Total 75 ml Balance 2628 ml IV Total 2503 ml Tube Feeding 200 ml Output Urine Total 75 ml Gastric Drainage Total 0 ml Physical Exam Heart: Normal S1, Normal S2 General: No acute distress Lungs: Clear to auscultation Assessment Assessment Problems Medical Problems: (1) Acute renal failure Status: Acute Assessment/Plan 52 yo male presents with week long history of fever and found to have thrombocytopenia, ARF, elevated LFTs 1. Septic shock - Fever - Tick borne illness suspected. I d/w Dr Lujan. Improving. Per ID: d/c dapto and cont doxycycline. d/c meropenem, add acyclovir 2. Dehydration 3. Acute renal failure 4. Elevated LFTs 5. Thrombocytopenia due to sepsis, no clinical evidence of TTP, no evidence of schistocytes, normal retic and haptoglobin and Hb. He should be transfused plts if his plt count <10 or he develops active bleeding. Plt better at 30 on 08/27/18. Plt better at 47 on 08/28/18, Plt better at 58 on 08/29/18 Plt better at 67 on 08/30/18. Plt better at 73 on 08/31/18 Plt better at 139 on 09/04/18, Monitor cbc. 6. Resp failure, on vent, management per pulm. Comment Review of Relevant I have reviewed the following items gera (where applicable) has been applied. Labs Laboratory Tests Test 09/03/18 05:45 09/03/18 08:30 09/04/18 05:00 White Blood Count 7.9 x10^3/uL (4.0-11.0) Red Blood Count 2.62 x10^6/uL (4.30-5.70) Hemoglobin 7.6 g/dL (13.0-17.5) Hematocrit 22.6 % (39.0-53.0) Mean Corpuscular Volume 86 fL (79-100) Mean Corpuscular Hemoglobin 29 pg (25-35) Mean Corpuscular Hemoglobin Concent 34 g/dL (31-37) Red Cell Distribution Width 17.5 % (11.5-14.5) Platelet Count 139 x10^3/uL (140-400) Neutrophils (%) (Auto) 41 % (31-73) Lymphocytes (%) (Auto) 35 % (24-48) Monocytes (%) (Auto) 20 % (0-9) Eosinophils (%) (Auto) 3 % (0-3) Basophils (%) (Auto) 1 % (0-3) Neutrophils # (Auto) 3.3 x10^3uL (1.8-7.7) Lymphocytes # (Auto) 2.8 x10^3/uL (1.0-4.8) Monocytes # (Auto) 1.5 x10^3/uL (0.0-1.1) Eosinophils # (Auto) 0.3 x10^3/uL (0.0-0.7) Basophils # (Auto) 0.1 x10^3/uL (0.0-0.2) Sodium Level 135 mmol/L (136-145) 135 mmol/L (136-145) Potassium Level 5.2 mmol/L (3.5-5.1) 4.7 mmol/L (3.5-5.1) Chloride Level 100 mmol/L (98-107) 98 mmol/L (98-107) Carbon Dioxide Level 20 mmol/L (21-32) 25 mmol/L (21-32) Anion Gap 15 (6-14) 12 (6-14) Blood Urea Nitrogen 98 mg/dL (8-26) 55 mg/dL (8-26) Creatinine 10.7 mg/dL (0.7-1.3) 6.4 mg/dL (0.7-1.3) Estimated GFR (Cockcroft-Gault) 5.1 9.2 Glucose Level 179 mg/dL (70-99) 148 mg/dL (70-99) Calcium Level 7.8 mg/dL (8.5-10.1) 7.6 mg/dL (8.5-10.1) Phosphorus Level 5.8 mg/dL (2.6-4.7) 4.2 mg/dL (2.6-4.7) Albumin 2.1 g/dL (3.4-5.0) 2.0 g/dL (3.4-5.0) Treponema pallidum Antibody Nonreactive (Nonreactive) O2 Saturation 97 % (92-99) Arterial Blood pH 7.31 (7.35-7.45) Arterial Blood pCO2 at Patient Temp 35 mmHg (35-46) Arterial Blood pO2 at Patient Temp 125 mmHg (75-108) Arterial Blood HCO3 17 mmol/L (21-28) Arterial Blood Base Excess -8 mmol/L (-3-3) FiO2 97 Laboratory Tests Test 09/04/18 05:00 Sodium Level 135 mmol/L (136-145) Potassium Level 4.7 mmol/L (3.5-5.1) Chloride Level 98 mmol/L (98-107) Carbon Dioxide Level 25 mmol/L (21-32) Anion Gap 12 (6-14) Blood Urea Nitrogen 55 mg/dL (8-26) Creatinine 6.4 mg/dL (0.7-1.3) Estimated GFR (Cockcroft-Gault) 9.2 Glucose Level 148 mg/dL (70-99) Calcium Level 7.6 mg/dL (8.5-10.1) Phosphorus Level 4.2 mg/dL (2.6-4.7) Albumin 2.0 g/dL (3.4-5.0) Microbiology 09/02/18 Blood Culture - Preliminary, Resulted NO GROWTH AFTER 2 DAYS 08/29/18 CSF Gram Stain - Final, Complete 08/27/18 Stool Culture - Final, Complete 08/27/18 Stool Culture Result 1 (LOTUS) - Final, Complete 08/27/18 Campylobacter Antigen Assay - Final, Complete 08/27/18 Campylobactor Result 1 - Final, Complete 08/27/18 Shiga Toxin Test - Final, Complete Medications Current Medications Sodium Chloride 1,000 ml @ 1,000 mls/hr 1X ONCE IV Last administered on 08/25/18at 20:38; Start 08/25/18 at 19:15; Stop 08/25/18 at 20:14; Status DC Ibuprofen (Motrin) 600 mg 1X ONCE PO Last administered on 08/25/18at 20:38; Start 08/25/18 at 19:45; Stop 08/25/18 at 19:49; Status DC Sodium Chloride 1,000 ml @ 1,000 mls/hr 1X ONCE IV Last administered on 08/25/18at 20:30; Start 08/25/18 at 20:30; Stop 08/25/18 at 21:29; Status DC Ceftriaxone Sodium (Rocephin) 1 gm 1X ONCE IVP Last administered on 08/25/18at 20:36; Start 08/25/18 at 20:30; Stop 08/25/18 at 20:31; Status DC Vancomycin HCl 2 gm/Sodium Chloride 500 ml @ 250 mls/hr 1X ONCE IV Last administered on 08/25/18at 23:10; Start 08/25/18 at 21:30; Stop 08/25/18 at 23:29; Status DC Sodium Chloride 1,000 ml @ 1,000 mls/hr 1X ONCE IV Last administered on 08/25/18at 23:51; Start 08/25/18 at 21:00; Stop 08/25/18 at 21:59; Status DC Piperacillin Sod/ Tazobactam Sod 4.5 gm/Sodium Chloride 100 ml @ 200 mls/hr 1X ONCE IV ; Start 08/25/18 at 21:15; Stop 08/25/18 at 21:44; Status DC Aztreonam (Azactam) 2 gm 1X ONCE IVP Last administered on 08/25/18at 21:15; Start 08/25/18 at 21:15; Stop 08/25/18 at 21:16; Status DC Magnesium Sulfate 50 ml @ 25 mls/hr 1X ONCE IV Last administered on 08/25/18at 23:51; Start 08/25/18 at 21:15; Stop 08/25/18 at 23:14; Status DC Ondansetron HCl (Zofran) 4 mg PRN Q8HRS PRN IV NAUSEA/VOMITING; Start 08/25/18 at 21:15; Stop 08/26/18 at 21:14; Status DC Acetaminophen (Tylenol) 650 mg PRN Q4HRS PRN PO FEVER; Start 08/25/18 at 21:15; Stop 08/26/18 at 21:14; Status DC Sodium Chloride 1,000 ml @ 125 mls/hr 1X ONCE IV Last administered on 08/25/18at 23:09; Start 08/25/18 at 21:15; Stop 08/26/18 at 05:14; Status DC Daptomycin 610 mg/ Sodium Chloride 50 ml @ 100 mls/hr QODAY IV Last administered on 08/27/18at 08:59; Start 08/27/18 at 09:00; Stop 08/28/18 at 15:40; Status DC Meropenem 500 mg/ Sodium Chloride 50 ml @ 100 mls/hr 1X ONCE IV Last administered on 08/25/18at 22:12; Start 08/25/18 at 22:00; Stop 08/25/18 at 22:29; Status DC Doxycycline Hyclate 100 mg/ Dextrose 100 ml @ 50 mls/hr Q12HR IV Last administered on 09/03/18at 22:11; Start 08/26/18 at 09:00; Stop 09/04/18 at 08:11; Status DC Meropenem 500 mg/ Sodium Chloride 50 ml @ 100 mls/hr DAILY IV Last administered on 08/29/18at 10:13; Start 08/26/18 at 09:00; Stop 08/30/18 at 08:17; Status DC Sodium Chloride (Normal Saline Flush) 10 ml QSHIFT PRN IV AFTER MEDS AND BLOOD DRAWS; Start 08/26/18 at 09:15 Norepinephrine Bitartrate 250 ml @ 0 mls/hr CONT PRN IV PER PROTOCOL Last administered on 08/27/18at 10:21; Start 08/26/18 at 09:15; Stop 08/30/18 at 17:20; Status DC Famotidine (Pepcid) 20 mg DAILY PO Last administered on 08/27/18at 08:14; Start 08/26/18 at 12:00; Stop 08/27/18 at 14:36; Status DC Sodium Chloride 1,000 ml @ 1,000 mls/hr Q1H PRN IV hypotension; Start 08/26/18 at 11:51; Stop 08/26/18 at 17:50; Status DC Sodium Chloride (Normal Saline Flush) 10 ml 1X PRN PRN IV AP catheter pack; Start 08/26/18 at 12:00; Stop 08/27/18 at 11:59; Status DC Sodium Chloride (Normal Saline Flush) 10 ml 1X PRN PRN IV SENIOR LINUX ADMINISTRATOR catheter pack; Start 08/26/18 at 12:00; Stop 08/27/18 at 11:59; Status DC Sodium Chloride 1,000 ml @ 400 mls/hr Q2H30M PRN IV PATENCY; Start 08/26/18 at 11:51; Stop 08/26/18 at 23:50; Status DC Info (PHARMACY MONITORING -- do not chart) 1 each PRN DAILY PRN MC SEE COMMENTS; Start 08/26/18 at 12:00; Status UNV Info (PHARMACY MONITORING -- do not chart) 1 each PRN DAILY PRN MC SEE COMMENTS; Start 08/26/18 at 12:00; Stop 09/01/18 at 10:59; Status DC Lidocaine/Sodium Bicarbonate (Buffered Lidocaine 1%) 4 ml 1X ONCE INJ Last administered on 08/26/18at 12:45; Start 08/26/18 at 12:45; Stop 08/26/18 at 12:48; Status DC Heparin Sodium (Porcine) (Heparin Sodium) 2,500 unit 1X ONCE INT CAT Last administered on 08/26/18at 12:45; Start 08/26/18 at 12:45; Stop 08/26/18 at 12:48; Status DC Lidocaine/Sodium Bicarbonate (Buffered Lidocaine 1%) 3 ml STK-MED ONCE .ROUTE ; Start 08/26/18 at 12:49; Stop 08/26/18 at 12:50; Status DC Heparin Sodium (Porcine) (Heparin Sodium) 10,000 unit STK-MED ONCE .ROUTE ; Start 08/26/18 at 12:49; Stop 08/26/18 at 12:50; Status DC Lactobacillus Rhamnosus (Culturelle) 1 cap BID PO Last administered on 09/04/18at 08:46; Start 08/26/18 at 21:00 Acetaminophen (Tylenol) 325 mg STK-MED ONCE PO ; Start 08/27/18 at 00:43; Stop 08/27/18 at 00:44; Status DC Sodium Chloride 1,000 ml @ 1,000 mls/hr 1X ONCE IV Last administered on 08/27/18at 11:05; Start 08/27/18 at 10:30; Stop 08/27/18 at 11:29; Status DC Sodium Chloride 1,000 ml @ 1,000 mls/hr Q1H PRN IV hypotension; Start 08/27/18 at 11:28; Stop 08/27/18 at 17:27; Status DC Albumin Human 200 ml @ 200 mls/hr 1X PRN PRN IV Hypotension; Start 08/27/18 at 11:30; Stop 08/27/18 at 17:29; Status DC Sodium Chloride (Normal Saline Flush) 10 ml 1X PRN PRN IV AP catheter pack; Start 08/27/18 at 11:30; Stop 08/28/18 at 11:29; Status DC Sodium Chloride (Normal Saline Flush) 10 ml 1X PRN PRN IV SENIOR LINUX ADMINISTRATOR catheter pack; Start 08/27/18 at 11:30; Stop 08/28/18 at 11:29; Status DC Sodium Chloride 1,000 ml @ 400 mls/hr Q2H30M PRN IV PATENCY; Start 08/27/18 at 11:28; Stop 08/27/18 at 23:27; Status DC Info (PHARMACY MONITORING -- do not chart) 1 each PRN DAILY PRN MC SEE COMMENTS; Start 08/27/18 at 11:30; Status UNV Info (PHARMACY MONITORING -- do not chart) 1 each PRN DAILY PRN MC SEE C OMMENTS; Start 08/27/18 at 11:30; Status UNV Famotidine (Pepcid) 20 mg Q48H PO ; Start 08/29/18 at 09:00; Stop 08/29/18 at 11:29; Status DC Acetaminophen (Tylenol) 650 mg PRN Q6HRS PRN PO pain/fever; Start 08/27/18 at 21:15 Acetaminophen (Tylenol Supp) 650 mg PRN Q6HRS PRN [place] MILD PAIN / TEMP Last administered on 09/02/18at 01:18; Start 08/27/18 at 21:15 Fentanyl Citrate (Fentanyl 2ml Vial) 25 mcg 1X ONCE IV Last administered on 08/28/18at 08:54; Start 08/28/18 at 08:45; Stop 08/28/18 at 08:47; Status DC Lidocaine/Sodium Bicarbonate (Buffered Lidocaine 1%) 3 ml STK-MED ONCE .ROUTE ; Start 08/28/18 at 09:55; Stop 08/28/18 at 09:56; Status DC Lidocaine HCl (Glydo (Lidocaine) Jelly) 1 meng 1X STAT MM Last administered on 08/28/18at 10:16; Start 08/28/18 at 10:16; Stop 08/28/18 at 10:19; Status DC Benzocaine (Hurricaine One) 1 spray 1X STAT MM Last administered on 08/28/18at 10:16; Start 08/28/18 at 10:16; Stop 08/28/18 at 10:19; Status DC Lidocaine/Sodium Bicarbonate (Buffered Lidocaine 1%) 3 ml 1X ONCE INJ ; Start 08/28/18 at 10:30; Stop 08/28/18 at 10:31; Status DC Haloperidol Lactate (Haldol Inj) 5 mg PRN Q6HRS PRN IVP AGITATION Last administered on 08/29/18at 20:31; Start 08/28/18 at 12:00 Fentanyl Citrate (Fentanyl 2ml Vial) 50 mcg PRN Q4HRS PRN IV PAIN Last administered on 08/28/18at 21:44; Start 08/28/18 at 15:30 Sodium Chloride 1,000 ml @ 1,000 mls/hr Q1H PRN IV hypotension; Start 08/28/18 at 14:00; Stop 08/28/18 at 19:59; Status DC Albumin Human 200 ml @ 200 mls/hr 1X PRN PRN IV Hypotension Last administered on 08/28/18at 14:50; Start 08/28/18 at 14:00; Stop 09/03/18 at 18:17; Status DC Sodium Chloride 1,000 ml @ 400 mls/hr Q2H30M PRN IV PATENCY; Start 08/28/18 at 14:00; Stop 08/29/18 at 01:59; Status DC Info (PHARMACY MONITORING -- do not chart) 1 each PRN DAILY PRN MC SEE COMMENTS; Start 08/28/18 at 15:30; Status UNV Info (PHARMACY MONITORING -- do not chart) 1 each PRN DAILY PRN MC SEE COMMENTS; Start 08/28/18 at 15:30; Status UNV Daptomycin 610 mg/ Sodium Chloride 50 ml @ 100 mls/hr Q48H IV ; Start 08/30/18 at 16:00; Stop 08/30/18 at 16:00; Status DC Famotidine (Pepcid Vial) 20 mg QHS IVP Last administered on 08/31/18at 20:59; Start 08/29/18 at 21:00; Stop 09/01/18 at 11:00; Status DC Acyclovir Sodium 340 mg/Dextrose 106.8 ml @ 106.8 mls/ hr Q12HR IV Last administered on 09/01/18at 11:05; Start 08/30/18 at 09:00; Stop 09/01/18 at 13:37; Status DC Sodium Chloride 1,000 ml @ 1,000 mls/hr Q1H PRN IV hypotension; Start 08/30/18 at 11:02; Stop 08/30/18 at 17:01; Status DC Sodium Chloride 1,000 ml @ 400 mls/hr Q2H30M PRN IV PATENCY; Start 08/30/18 at 11:02; Stop 08/30/18 at 23:01; Status DC Info (PHARMACY MONITORING -- do not chart) 1 each PRN DAILY PRN MC SEE COMMENTS; Start 08/30/18 at 11:15; Status UNV Info (PHARMACY MONITORING -- do not chart) 1 each PRN DAILY PRN MC SEE COMMENTS; Start 08/30/18 at 11:15; Status UNV Info (Tpn Per Pharmacy) 1 each PRN DAILY PRN MC SEE COMMENTS Last administered on 09/03/18at 10:53; Start 08/30/18 at 12:45 Sodium Chloride 90 meq/Potassium Chloride 50 meq/ Potassium Phosphate 3 mmol/ Magnesium Sulfate 10 meq/Calcium Gluconate 10 meq/ Multivitamins 10 ml/Chromium/ Copper/Manganese/ Seleni/Zn 1 ml/ Total Parenteral Nutrition/Amino Acids/Dextrose/ Fat Emulsion Intravenous 1,512 ml @ 63 mls/hr TPN CONT IV Last administered on 08/30/18at 21:40; Start 08/30/18 at 22:00; Stop 08/31/18 at 21:59; Status DC Ondansetron HCl (Zofran) 4 mg PRN Q6HRS PRN IV NAUSEA/VOMITING; Start 08/31/18 at 08:00 Haloperidol (Haldol) 2 mg PRN QID PRN PO AGITATION; Start 08/31/18 at 08:00; Stop 08/31/18 at 12:43; Status DC Haloperidol Lactate (HALDOL 2mg ORAL CONC) 2 mg PRN QID PRN PO AGITATION; Start 08/31/18 at 12:43 Sodium Chloride 90 meq/Potassium Chloride 50 meq/ Potassium Phosphate 5 mmol/ Magnesium Sulfate 3 meq/Calcium Gluconate 10 meq/ Multivitamins 10 ml/Chromium/ Copper/Manganese/ Seleni/Zn 1 ml/ Total Parenteral Nutrition/Amino Acids/D extrose 1,512 ml @ 63 mls/hr TPN CONT IV Last administered on 08/31/18at 20:59; Start 08/31/18 at 22:00; Stop 09/01/18 at 21:59; Status DC Propofol 100 ml @ As Directed STK-MED ONCE IV ; Start 08/31/18 at 22:45; Stop 08/31/18 at 22:46; Status DC Succinylcholine Chloride (Anectine) 200 mg STK-MED ONCE .ROUTE ; Start 08/31/18 at 22:46; Stop 08/31/18 at 22:47; Status DC Atropine Sulfate (ATROPINE 1mg SYRINGE) 1 mg STK-MED ONCE .ROUTE ; Start 08/31/18 at 22:58; Stop 08/31/18 at 22:59; Status DC Fentanyl Citrate 30 ml @ 0 mls/hr CONT PRN IV SEE PROTOCOL Last administered on 09/04/18at 05:38; Start 09/01/18 at 00:00 Propofol 100 ml @ 0 mls/hr CONT PRN IV SEE PROTOCOL Last administered on 09/04/18at 08:08; Start 09/01/18 at 00:00 Chlorhexidine Gluconate (Peridex) 15 ml BID MM Last administered on 09/04/18at 08:46; Start 09/01/18 at 09:00 Midazolam HCl 100 ml @ 0 mls/hr CONT PRN IV SEE PROTOCOL; Start 09/01/18 at 00:00 Albuterol/ Ipratropium (Duoneb) 3 ml RTQID NEB Last administered on 09/03/18at 20:30; Start 09/01/18 at 08:00 Albuterol/ Ipratropium (Duoneb) 3 ml 1X ONCE NEB Last administered on 09/01/18at 01:10; Start 09/01/18 at 01:00; Stop 09/01/18 at 01:01; Status DC Succinylcholine Chloride (Anectine) 200 mg 1X ONCE IV Last administered on 08/31/18at 23:04; Start 09/01/18 at 01:15; Stop 09/01/18 at 01:16; Status DC Sodium Chloride 1,000 ml @ 1,000 mls/hr Q1H PRN IV hypotension; Start 09/01/18 at 07:00; Stop 09/01/18 at 12:59; Status DC Sodium Chloride (Normal Saline Flush) 10 ml 1X PRN PRN IV AP catheter pack; Start 09/01/18 at 07:00; Stop 09/02/18 at 06:59; Status DC Sodium Chloride (Normal Saline Flush) 10 ml 1X PRN PRN IV SENIOR LINUX ADMINISTRATOR catheter pack; Start 09/01/18 at 07:00; Stop 09/02/18 at 06:59; Status DC Sodium Chloride 1,000 ml @ 400 mls/hr Q2H30M PRN IV PATENCY; Start 09/01/18 at 07:00; Stop 09/01/18 at 18:59; Status DC Info (PHARMACY MONITORING -- do not chart) 1 each PRN DAILY PRN MC SEE COMMENTS; Start 09/01/18 at 11:00; Status Cancel Info (PHARMACY MONITORING -- do not chart) 1 each PRN DAILY PRN MC SEE COMMENTS; Start 09/01/18 at 11:00; Status Cancel Famotidine (Pepcid Vial) 20 mg Q48H IVP Last administered on 09/03/18at 22:11; Start 09/03/18 at 21:00 Sodium Chloride 90 meq/Potassium Chloride 50 meq/ Potassium Phosphate 10 mmol/ Calcium Gluconate 10 meq/ Multivitamins 10 ml/Chromium/ Copper/Manganese/ Seleni/Zn 1 ml/ Total Parenteral Nutrition/Amino Acids/Dextrose 1,512 ml @ 63 mls/hr TPN CONT IV Last administered on 09/01/18at 22:11; Start 09/01/18 at 22:00; Stop 09/02/18 at 21:59; Status DC Piperacillin Sod/ Tazobactam Sod 2.25 gm/Sodium Chloride 50 ml @ 100 mls/hr Q6HRS IV Last administered on 09/04/18at 06:43; Start 09/01/18 at 14:00 Sodium Chloride 110 meq/Potassium Chloride 50 meq/ Potassium Phosphate 10 mmol/ Calcium Gluconate 10 meq/ Multivitamins 10 ml/Chromium/ Copper/Manganese/ Seleni/Zn 1 ml/ Magnesium Sulfate 3 meq/Total Parenteral Nutrition/Amino Aci ds/Dextrose 1,512 ml @ 63 mls/hr TPN CONT IV Last administered on 09/02/18at 22:13; Start 09/02/18 at 22:00; Stop 09/03/18 at 21:59; Status DC Darbepoetin Phil (Aranesp) 100 mcg [id number] SQ Last administered on 09/03/18at 22:11; Start 09/03/18 at 21:00 Sodium Chloride 130 meq/Potassium Acetate 20 meq/ Calcium Gluconate 10 meq/ Multivitamins 10 ml/Chromium/ Copper/Manganese/ Seleni/Zn 1 ml/ Magnesium Sulfate 3 meq/Total Parenteral Nutrition/Amino Acids/Dextrose 1,512 ml @ 63 mls/hr TPN CONT IV Last administered on 09/03/18at 22:12; Start 09/03/18 at 22:00; Stop 09/04/18 at 21:59 Albumin Human 200 ml @ 200 mls/hr 1X PRN PRN IV Hypotension; Start 09/03/18 at 10:00; Stop 09/03/18 at 21:00; Status DC Sodium Chloride (Normal Saline Flush) 10 ml 1X PRN PRN IV AP catheter pack; Start 09/03/18 at 10:00; Stop 09/03/18 at 21:00; Status DC Sodium Chloride (Normal Saline Flush) 10 ml 1X PRN PRN IV SENIOR LINUX ADMINISTRATOR catheter pack; Start 09/03/18 at 10:00; Stop 09/03/18 at 21:00; Status DC Sodium Chloride 1,000 ml @ 400 mls/hr Q2H30M PRN IV PATENCY; Start 09/03/18 at 10:00; Stop 09/03/18 at 21:59; Status DC Info (PHARMACY MONITORING -- do not chart) 1 each PRN DAILY PRN MC SEE COMMENTS; Start 09/03/18 at 18:15; Status UNV Atropine Sulfate (ATROPINE 0.5mg SYRINGE) 0.5 mg STK-MED ONCE .ROUTE ; Start 08/31/18 at 08:06; Stop 09/04/18 at 08:07; Status DC Epinephrine HCl (EPINEPHrine SYRINGE) 3 mg STK-MED ONCE .ROUTE ; Start 08/31/18 at 08:06; Stop 09/04/18 at 08:07; Status DC Sodium Bicarbonate (Sodium Bicarb Adult 8.4% Syr) 100 meq STK-MED ONCE .ROUTE ; Start 08/31/18 at 08:06; Stop 09/04/18 at 08:07; Status DC Levofloxacin/ Dextrose 150 ml @ 100 mls/hr QODAY IV Last administered on 09/04/18at 08:46; Start 09/04/18 at 09:00 Sodium Chloride 1,000 ml @ 1,000 mls/hr Q1H PRN IV hypotension; Start 09/04/18 at 08:23; Stop 09/04/18 at 14:22 Albumin Human 200 ml @ 200 mls/hr 1X PRN PRN IV Hypotension; Start 09/04/18 at 08:30; Stop 09/04/18 at 14:29 Sodium Chloride 1,000 ml @ 400 mls/hr Q2H30M PRN IV PATENCY; Start 09/04/18 at 08:23; Stop 09/04/18 at 20:22 Info (PHARMACY MONITORING -- do not chart) 1 each PRN DAILY PRN MC SEE COMMENTS; Start 09/04/18 at 08:30 Info (PHARMACY MONITORING -- do not chart) 1 each PRN DAILY PRN MC SEE COMMENTS; Start 09/04/18 at 08:30; Status UNV Active Scripts Active Potassium Chloride 20 Meq Tablet.er 20 Meq PO DAILY Orphenadrine Citrate 100 Mg Tablet.er 100 Mg PO Q12HR Anaprox Ds (Naproxen Sodium) 550 Mg Tablet 550 Mg PO Q12HR Reported Prednisone 20 Mg Tablet 1 Tab PO DAILY Hydrochlorothiazide Tablet (Hydrochlorothiazide) 12.5 Mg Tablet 12.5 Mg PO DAILY Shilpi Allergy (Fexofenadine Hcl) 180 Mg Tablet 1 Tab PO DAILY Vitals/I & O Vital Sign - Last 24 Hours 09/03/18 09/03/18 09/03/18 09/03/18 09:00 09:17 10:00 11:00 Pulse 70 71 73 Resp 18 19 20 B/P (MAP) 149/81 (103) 156/81 (106) 151/77 (101) Pulse Ox 100 100 100 100 O2 Delivery Ventilator Ventilator Ventilator Ventilator 09/03/18 09/03/18 09/03/18 09/03/18 12:00 12:00 13:00 13:33 Temp 98.2 98.2 Pulse 71 71 Resp 18 19 B/P (MAP) 146/71 (96) 145/68 (93) Pulse Ox 100 100 100 O2 Delivery Ventilator Mechanical Ventilator Ventilator Ventilator 09/03/18 09/03/18 09/03/18 09/03/18 14:00 14:21 15:00 16:00 Temp 99.2 99.2 Pulse 72 72 74 Resp 19 20 20 B/P (MAP) 148/66 (93) 144/65 (91) 146/65 (92) Pulse Ox 100 100 100 100 O2 Delivery Ventilator Ventilator Ventilator Ventilator 09/03/18 09/03/18 09/03/18 09/03/18 16:00 16:22 17:00 17:40 Pulse 81 Resp 22 B/P (MAP) 139/74 (95) Pulse Ox 100 100 100 O2 Delivery Mechanical Ventilator Ventilator Ventilator O2 Flow Rate 15.0 09/03/18 09/03/18 09/03/18 09/03/18 17:53 18:00 19:00 20:00 Temp 99.0 99.0 Pulse 79 80 80 Resp 19 19 18 B/P (MAP) 134/73 (93) 131/72 (91) 130/68 (88) Pulse Ox 100 100 100 100 O2 Delivery Ventilator Ventilator Ventilator Ventilator 09/03/18 09/03/18 09/03/18 09/03/18 20:00 20:30 21:00 22:00 Pulse 84 86 Resp 18 19 B/P (MAP) 118/66 (83) 131/74 (93) Pulse Ox 100 100 100 O2 Delivery Mechanical Ventilator Ventilator Ventilator Ventilator 09/03/18 09/03/18 09/04/18 09/04/18 22:14 23:00 00:00 00:00 Temp 99.2 99.2 Pulse 82 84 Resp 18 17 B/P (MAP) 145/69 (94) 145/69 (94) Pulse Ox 100 100 100 O2 Delivery Ventilator Ventilator Mechanical Ventilator Ventilator 09/04/18 09/04/18 09/04/18 09/04/18 00:15 01:00 02:00 02:05 Pulse 84 86 Resp 14 14 B/P (MAP) 148/67 (94) 155/70 (98) Pulse Ox 100 99 97 100 O2 Delivery Ventilator Ventilator Ventilator Ventilator 09/04/18 09/04/18 09/04/18 09/04/18 03:00 04:00 04:00 04:20 Temp 100.4 100.4 Pulse 88 92 Resp 18 19 B/P (MAP) 154/72 (99) 148/67 (94) Pulse Ox 96 97 100 O2 Delivery Ventilator Mechanical Ventilator Ventilator Ventilator 09/04/18 09/04/18 09/04/18 09/04/18 05:00 05:38 06:00 06:08 Pulse 88 88 Resp 16 16 B/P (MAP) 135/65 (88) 140/67 (91) Pulse Ox 98 100 99 100 O2 Delivery Ventilator Ventilator Ventilator O2 Flow Rate 15.0 09/04/18 09/04/18 08:00 08:00 Temp 102.0 102.0 Pulse 88 Resp 18 B/P (MAP) 141/69 (93) Pulse Ox 97 O2 Delivery Ventilator Mechanical Ventilator Intake and Output 09/03/18 09/03/18 09/04/18 15:00 23:00 07:00 Intake Total 1333 ml 1370 ml Output Total 35 ml 30 ml 10 ml Balance -35 ml 1303 ml 1360 ml JAVON COSME MD September 04, 2018 08:55
[2018-09-04] MEDS: IPRATRPIUM/ALBUTEROL 0.5/2.5MG 3 ML NEBU. NEB SCH ×4 (09:00→21:22)
[2018-09-04 09:12] LABS: BASE EXCESS ABG -1 mmol/L (-3-3); HCO3 ABG 23 mmol/L (21-28); PCO2 ABG 33 mmHg (35-46); PO2 ABG 96 mmHg (75-108); SAT O2 ABG 96 % (92-99)
--- NOTE | 2018-09-04 09:29 | PDOC ---
PROGRESS NOTES Chief Complaint Chief Complaint Sepsis Encephalopathy Encephalitis of undetermined etiology Respiratory failure Probable tick-borne illness, suspected. with h/o tick bite 3 weeks ago at [facility] Lactic acidosis. Fever. Bandemia. Acute hepatic injury Acute kidney injury. Thrombocytopenia. Hemochromatosis. LLE dermatitis improving, ? poison shelby,resolving with local treatment History of Present Illness History of Present Illness Mr Kirk is a 52-year-old male with a past medical history of hemochromatosis who is pretty healthy otherwise and very active. About 3 weeks ago, he was at [facility] [place] and found a tick embedded on the back of his right thigh. He pulled it out and thought nothing of it. The next day, he was cleaning up a yard with a few other persons from [place]. He recalls kneeling down on his left knee pulling wheat. A few days later, he developed an itchy red blistering rash on his left knee that improved with [id number] ivory rest. He then developed a different type of rash that was itchy, splotchy and red on the inner aspect of both arms. He was seen by his doctor and prescribed Bactrim for infection. 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 About a week later, on Friday 08/18, he went to a men's breakfast and a [facility] meeting. Afterwards, he felt unusually tired. Over the following 24 hours, he did not feel well. He developed fever, chills, joint pains and muscle aches. He alternated taking ibuprofen and Tylenol without relief. He was seen at urgent care center and prescribed prednisone for upper respiratory infection. Unfortunately, he felt worse. He lost his appetite and was not drinking much and was urinating less. His said he was sleeping more, moaned, seemed lethargic and confused, prompting the ER visit. On arrival to the ER, he had a temperature of 100.3, respiratory rate 28. Laboratory values returned abnormal with a WBC count 6.2, segs 68%, bands 24%, platelets 17,000. Lactic acid was 5.1. Sed rate 11. He had elevated LFTs and acute kidney injury. Cultures were ordered. He was dosed with vancomycin, ceftriaxone and aztreonam in the ER. ID adjusted his antibiotics to daptomycin, meropenem and doxycycline. He was feeling improved, then on 08/28/2018 continued to worsen, was started on dialysis, required increasing O2 and was placed on BIPAP and ultimately intubated on 08/31/2018. Serology for HIV, HSV, Olivarez spotted fever and Ehrlichia all thus negative. Had LP on 08/29/18 with increased protein. His spouse notes no recent travel, last time he was out of the country was [facility] in 2003. 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 He struggled with infidelity over the last year and over the weekend had HIV testing consent per , this was negative as well as syphilis testing. Patient seen and examined in the ICU. is not bedside today. Patient is on t he vent assist control/ with 40% and 5 of PEEP. On dialysis today. He is extremely ill, Hb <8 today. Type and screen, will only transfuse per hematology and nephrology CC 38 minutes today Vitals Vitals Vital Signs Date Time Temp Pulse Resp B/P (MAP) Pulse Ox O2 Delivery O2 Flow Rate FiO2 09/04/18 09:00 87 16 145/70 (95) 98 Ventilator 09/04/18 08:00 102.0 102.0 09/04/18 06:08 15.0 Physical Exam Physical Exam GENERAL:sedated on vent HEENT: Pupils equally round, reactive. No conjunctivae petechia. ETT + NECK: Supple.HDC and Rt IJ in place LUNGS: dec bs at bases HEART: S1 and S2. ABDOMEN: Obese, soft, nontender with bowel sounds present. rose in place ,minimal urine output EXTREMITIES:no edema,no cyanosis. SKIN: Warm without rash. Left knee has several scabs/scarring.healing NEUROLOGIC: sedated on vent General: No acute distress Heart: Normal S1, Normal S2 Lungs: Crackles Abdomen: Soft, Other (less distended ) Extremities: No clubbing, No cyanosis, No edema Skin: No significant lesion, Other (healing rash and excoriations on Left lower extremity. No obvious petechiae) Labs LABS Laboratory Tests Test 09/04/18 05:00 Sodium Level 135 mmol/L (136-145) Potassium Level 4.7 mmol/L (3.5-5.1) Chloride Level 98 mmol/L (98-107) Carbon Dioxide Level 25 mmol/L (21-32) Anion Gap 12 (6-14) Blood Urea Nitrogen 55 mg/dL (8-26) Creatinine 6.4 mg/dL (0.7-1.3) Estimated GFR (Cockcroft-Gault) 9.2 Glucose Level 148 mg/dL (70-99) Calcium Level 7.6 mg/dL (8.5-10.1) Phosphorus Level 4.2 mg/dL (2.6-4.7) Albumin 2.0 g/dL (3.4-5.0) Assessment and Plan Assessmemt and Plan Problems Medical Problems: (1) Acute renal failure Status: Acute Comment Review of Relevant I have reviewed the following items gera (where applicable) has been applied. Labs Laboratory Tests Test 09/03/18 05:45 09/03/18 08:30 09/04/18 05:00 White Blood Count 7.9 x10^3/uL (4.0-11.0) Red Blood Count 2.62 x10^6/uL (4.30-5.70) Hemoglobin 7.6 g/dL (13.0-17.5) Hematocrit 22.6 % (39.0-53.0) Mean Corpuscular Volume 86 fL (79-100) Mean Corpuscular Hemoglobin 29 pg (25-35) Mean Corpuscular Hemoglobin Concent 34 g/dL (31-37) Red Cell Distribution Width 17.5 % (11.5-14.5) Platelet Count 139 x10^3/uL (140-400) Neutrophils (%) (Auto) 41 % (31-73) Lymphocytes (%) (Auto) 35 % (24-48) Monocytes (%) (Auto) 20 % (0-9) Eosinophils (%) (Auto) 3 % (0-3) Basophils (%) (Auto) 1 % (0-3) Neutrophils # (Auto) 3.3 x10^3uL (1.8-7.7) Lymphocytes # (Auto) 2.8 x10^3/uL (1.0-4.8) Monocytes # (Auto) 1.5 x10^3/uL (0.0-1.1) Eosinophils # (Auto) 0.3 x10^3/uL (0.0-0.7) Basophils # (Auto) 0.1 x10^3/uL (0.0-0.2) Sodium Level 135 mmol/L (136-145) 135 mmol/L (136-145) Potassium Level 5.2 mmol/L (3.5-5.1) 4.7 mmol/L (3.5-5.1) Chloride Level 100 mmol/L (98-107) 98 mmol/L (98-107) Carbon Dioxide Level 20 mmol/L (21-32) 25 mmol/L (21-32) Anion Gap 15 (6-14) 12 (6-14) Blood Urea Nitrogen 98 mg/dL (8-26) 55 mg/dL (8-26) Creatinine 10.7 mg/dL (0.7-1.3) 6.4 mg/dL (0.7-1.3) Estimated GFR (Cockcroft-Gault) 5.1 9.2 Glucose Level 179 mg/dL (70-99) 148 mg/dL (70-99) Calcium Level 7.8 mg/dL (8.5-10.1) 7.6 mg/dL (8.5-10.1) Phosphorus Level 5.8 mg/dL (2.6-4.7) 4.2 mg/dL (2.6-4.7) Albumin 2.1 g/dL (3.4-5.0) 2.0 g/dL (3.4-5.0) Treponema pallidum Antibody Nonreactive (Nonreactive) O2 Saturation 97 % (92-99) Arterial Blood pH 7.31 (7.35-7.45) Arterial Blood pCO2 at Patient Temp 35 mmHg (35-46) Arterial Blood pO2 at Patient Temp 125 mmHg (75-108) Arterial Blood HCO3 17 mmol/L (21-28) Arterial Blood Base Excess -8 mmol/L (-3-3) FiO2 97 Laboratory Tests Test 09/04/18 05:00 Sodium Level 135 mmol/L (136-145) Potassium Level 4.7 mmol/L (3.5-5.1) Chloride Level 98 mmol/L (98-107) Carbon Dioxide Level 25 mmol/L (21-32) Anion Gap 12 (6-14) Blood Urea Nitrogen 55 mg/dL (8-26) Creatinine 6.4 mg/dL (0.7-1.3) Estimated GFR (Cockcroft-Gault) 9.2 Glucose Level 148 mg/dL (70-99) Calcium Level 7.6 mg/dL (8.5-10.1) Phosphorus Level 4.2 mg/dL (2.6-4.7) Albumin 2.0 g/dL (3.4-5.0) Microbiology 09/02/18 Blood Culture - Preliminary, Resulted NO GROWTH AFTER 2 DAYS 08/29/18 CSF Gram Stain - Final, Complete 08/27/18 Stool Culture - Final, Complete 08/27/18 Stool Culture Result 1 (LOTUS) - Final, Complete 08/27/18 Campylobacter Antigen Assay - Final, Complete 08/27/18 Campylobactor Result 1 - Final, Complete 08/27/18 Shiga Toxin Test - Final, Complete Medications Current Medications Sodium Chloride 1,000 ml @ 1,000 mls/hr 1X ONCE IV Last administered on 08/25/18at 20:38; Start 08/25/18 at 19:15; Stop 08/25/18 at 20:14; Status DC Ibuprofen (Motrin) 600 mg 1X ONCE PO Last administered on 08/25/18at 20:38; Start 08/25/18 at 19:45; Stop 08/25/18 at 19:49; Status DC Sodium Chloride 1,000 ml @ 1,000 mls/hr 1X ONCE IV Last administered on 08/25/18at 20:30; Start 08/25/18 at 20:30; Stop 08/25/18 at 21:29; Status DC Ceftriaxone Sodium (Rocephin) 1 gm 1X ONCE IVP Last administered on 08/25/18at 20:36; Start 08/25/18 at 20:30; Stop 08/25/18 at 20:31; Status DC Vancomycin HCl 2 gm/Sodium Chloride 500 ml @ 250 mls/hr 1X ONCE IV Last administered on 08/25/18at 23:10; Start 08/25/18 at 21:30; Stop 08/25/18 at 23:29; Status DC Sodium Chloride 1,000 ml @ 1,000 mls/hr 1X ONCE IV Last administered on 08/25/18at 23:51; Start 08/25/18 at 21:00; Stop 08/25/18 at 21:59; Status DC Piperacillin Sod/ Tazobactam Sod 4.5 gm/Sodium Chloride 100 ml @ 200 mls/hr 1X ONCE IV ; Start 08/25/18 at 21:15; Stop 08/25/18 at 21:44; Status DC Aztreonam (Azactam) 2 gm 1X ONCE IVP Last administered on 08/25/18at 21:15; Start 08/25/18 at 21:15; Stop 08/25/18 at 21:16; Status DC Magnesium Sulfate 50 ml @ 25 mls/hr 1X ONCE IV Last administered on 08/25/18at 23:51; Start 08/25/18 at 21:15; Stop 08/25/18 at 23:14; Status DC Ondansetron HCl (Zofran) 4 mg PRN Q8HRS PRN IV NAUSEA/VOMITING; Start 08/25/18 at 21:15; Stop 08/26/18 at 21:14; Status DC Acetaminophen (Tylenol) 650 mg PRN Q4HRS PRN PO FEVER; Start 08/25/18 at 21:15; Stop 08/26/18 at 21:14; Status DC Sodium Chloride 1,000 ml @ 125 mls/hr 1X ONCE IV Last administered on 08/25/18at 23:09; Start 08/25/18 at 21:15; Stop 08/26/18 at 05:14; Status DC Daptomycin 610 mg/ Sodium Chloride 50 ml @ 100 mls/hr QODAY IV Last administered on 08/27/18at 08:59; Start 08/27/18 at 09:00; Stop 08/28/18 at 15:40; Status DC Meropenem 500 mg/ Sodium Chloride 50 ml @ 100 mls/hr 1X ONCE IV Last admini stered on 08/25/18at 22:12; Start 08/25/18 at 22:00; Stop 08/25/18 at 22:29; Status DC Doxycycline Hyclate 100 mg/ Dextrose 100 ml @ 50 mls/hr Q12HR IV Last administered on 09/03/18at 22:11; Start 08/26/18 at 09:00; Stop 09/04/18 at 08:11; Status DC Meropenem 500 mg/ Sodium Chloride 50 ml @ 100 mls/hr DAILY IV Last administered on 08/29/18at 10:13; Start 08/26/18 at 09:00; Stop 08/30/18 at 08:17; Status DC Sodium Chloride (Normal Saline Flush) 10 ml QSHIFT PRN IV AFTER MEDS AND BLOOD DRAWS; Start 08/26/18 at 09:15 Norepinephrine Bitartrate 250 ml @ 0 mls/hr CONT PRN IV PER PROTOCOL Last administered on 08/27/18at 10:21; Start 08/26/18 at 09:15; Stop 08/30/18 at 17:20; Status DC Famotidine (Pepcid) 20 mg DAILY PO Last administered on 08/27/18at 08:14; Start 08/26/18 at 12:00; Stop 08/27/18 at 14:36; Status DC Sodium Chloride 1,000 ml @ 1,000 mls/hr Q1H PRN IV hypotension; Start 08/26/18 at 11:51; Stop 08/26/18 at 17:50; Status DC Sodium Chloride (Normal Saline Flush) 10 ml 1X PRN PRN IV AP catheter pack; Start 08/26/18 at 12:00; Stop 08/27/18 at 11:59; Status DC Sodium Chloride (Normal Saline Flush) 10 ml 1X PRN PRN IV MAINTENANCE OF WAY CLERK catheter pack; Start 08/26/18 at 12:00; Stop 08/27/18 at 11:59; Status DC Sodium Chloride 1,000 ml @ 400 mls/hr Q2H30M PRN IV PATENCY; Start 08/26/18 at 11:51; Stop 08/26/18 at 23:50; Status DC Info (PHARMACY MONITORING -- do not chart) 1 each PRN DAILY PRN MC SEE COMMENTS; Start 08/26/18 at 12:00; Status UNV Info (PHARMACY MONITORING -- do not chart) 1 each PRN DAILY PRN MC SEE COMMENTS; Start 08/26/18 at 12:00; Stop 09/01/18 at 10:59; Status DC Lidocaine/Sodium Bicarbonate (Buffered Lidocaine 1%) 4 ml 1X ONCE INJ Last administered on 08/26/18at 12:45; Start 08/26/18 at 12:45; Stop 08/26/18 at 12:48; Status DC Heparin Sodium (Porcine) (Heparin Sodium) 2,500 unit 1X ONCE INT CAT Last administered on 08/26/18at 12:45; Start 08/26/18 at 12:45; Stop 08/26/18 at 12:48; Status DC Lidocaine/Sodium Bicarbonate (Buffered Lidocaine 1%) 3 ml STK-MED ONCE .ROUTE ; Start 08/26/18 at 12:49; Stop 08/26/18 at 12:50; Status DC Heparin Sodium (Porcine) (Heparin Sodium) 10,000 unit STK-MED ONCE .ROUTE ; Start 08/26/18 at 12:49; Stop 08/26/18 at 12:50; Status DC Lactobacillus Rhamnosus (Culturelle) 1 cap BID PO Last administered on 09/04/18a t 08:46; Start 08/26/18 at 21:00 Acetaminophen (Tylenol) 325 mg STK-MED ONCE PO ; Start 08/27/18 at 00:43; Stop 08/27/18 at 00:44; Status DC Sodium Chloride 1,000 ml @ 1,000 mls/hr 1X ONCE IV Last administered on 08/27/18at 11:05; Start 08/27/18 at 10:30; Stop 08/27/18 at 11:29; Status DC Sodium Chloride 1,000 ml @ 1,000 mls/hr Q1H PRN IV hypotension; Start 08/27/18 at 11:28; Stop 08/27/18 at 17:27; Status DC Albumin Human 200 ml @ 200 mls/hr 1X PRN PRN IV Hypotension; Start 08/27/18 at 11:30; Stop 08/27/18 at 17:29; Status DC Sodium Chloride (Normal Saline Flush) 10 ml 1X PRN PRN IV AP catheter pack; Start 08/27/18 at 11:30; Stop 08/28/18 at 11:29; Status DC Sodium Chloride (Normal Saline Flush) 10 ml 1X PRN PRN IV MAINTENANCE OF WAY CLERK catheter pack; Start 08/27/18 at 11:30; Stop 08/28/18 at 11:29; Status DC Sodium Chloride 1,000 ml @ 400 mls/hr Q2H30M PRN IV PATENCY; Start 08/27/18 at 11:28; Stop 08/27/18 at 23:27; Status DC Info (PHARMACY MONITORING -- do not chart) 1 each PRN DAILY PRN MC SEE COMMENTS; Start 08/27/18 at 11:30; Status UNV Info (PHARMACY MONITORING -- do not chart) 1 each PRN DAILY PRN MC SEE COMMENTS; Start 08/27/18 at 11:30; Status UNV Famotidine (Pepcid) 20 mg Q48H PO ; Start 08/29/18 at 09:00; Stop 08/29/18 at 11:29; Status DC Acetaminophen (Tylenol) 650 mg PRN Q6HRS PRN PO pain/fever; Start 08/27/18 at 21:15 Acetaminophen (Tylenol Supp) 650 mg PRN Q6HRS PRN IA MILD PAIN / TEMP Last administered on 09/02/18at 01:18; Start 08/27/18 at 21:15 Fentanyl Citrate (Fentanyl 2ml Vial) 25 mcg 1X ONCE IV Last administered on 08/28/18at 08:54; Start 08/28/18 at 08:45; Stop 08/28/18 at 08:47; Status DC Lidocaine/Sodium Bicarbonate (Buffered Lidocaine 1%) 3 ml STK-MED ONCE .ROUTE ; Start 08/28/18 at 09:55; Stop 08/28/18 at 09:56; Status DC Lidocaine HCl (Glydo (Lidocaine) Jelly) 1 meng 1X STAT MM Last administered on 08/28/18at 10:16; Start 08/28/18 at 10:16; Stop 08/28/18 at 10:19; Status DC Benzocaine (Hurricaine One) 1 spray 1X STAT MM Last administered on 08/28/18at 10:16; Start 08/28/18 at 10:16; Stop 08/28/18 at 10:19; Status DC Lidocaine/Sodium Bicarbonate (Buffered Lidocaine 1%) 3 ml 1X ONCE INJ ; Start 08/28/18 at 10:30; Stop 08/28/18 at 10:31; Status DC Haloperidol Lactate (Haldol Inj) 5 mg PRN Q6HRS PRN IVP AGITATION Last administered on 08/29/18at 20:31; Start 08/28/18 at 12:00 Fentanyl Citrate (Fentanyl 2ml Vial) 50 mcg PRN Q4HRS PRN IV PAIN Last administered on 08/28/18at 21:44; Start 08/28/18 at 15:30 Sodium Chloride 1,000 ml @ 1,000 mls/hr Q1H PRN IV hypotension; Start 08/28/18 at 14:00; Stop 08/28/18 at 19:59; Status DC Albumin Human 200 ml @ 200 mls/hr 1X PRN PRN IV Hypotension Last administered on 08/28/18at 14:50; Start 08/28/18 at 14:00; Stop 09/03/18 at 18:17; Status DC Sodium Chloride 1,000 ml @ 400 mls/hr Q2H30M PRN IV PATENCY; Start 08/28/18 at 14:00; Stop 08/29/18 at 01:59; Status DC Info (PHARMACY MONITORING -- do not chart) 1 each PRN DAILY PRN MC SEE COMMENTS; Start 08/28/18 at 15:30; Status UNV Info (PHARMACY MONITORING -- do not chart) 1 each PRN DAILY PRN MC SEE COMMENTS; Start 08/28/18 at 15:30; Status UNV Daptomycin 610 mg/ Sodium Chloride 50 ml @ 100 mls/hr Q48H IV ; Start 08/30/18 at 16:00; Stop 08/30/18 at 16:00; Status DC Famotidine (Pepcid Vial) 20 mg QHS IVP Last administered on 08/31/18at 20:59; Start 08/29/18 at 21:00; Stop 09/01/18 at 11:00; Status DC Acyclovir Sodium 340 mg/Dextrose 106.8 ml @ 106.8 mls/ hr Q12HR IV Last administered on 09/01/18at 11:05; Start 08/30/18 at 09:00; Stop 09/01/18 at 13:37; Status DC Sodium Chloride 1,000 ml @ 1,000 mls/hr Q1H PRN IV hypotension; Start 08/30/18 at 11:02; Stop 08/30/18 at 17:01; Status DC Sodium Chloride 1,000 ml @ 400 mls/hr Q2H30M PRN IV PATENCY; Start 08/30/18 at 11:02; Stop 08/30/18 at 23:01; Status DC Info (PHARMACY MONITORING -- do not chart) 1 each PRN DAILY PRN MC SEE COMMENTS; Start 08/30/18 at 11:15; Status UNV Info (PHARMACY MONITORING -- do not chart) 1 each PRN DAILY PRN MC SEE COMMENTS; Start 08/30/18 at 11:15; Status UNV Info (Tpn Per Pharmacy) 1 each PRN DAILY PRN MC SEE COMMENTS Last administered on 09/03/18at 10:53; Start 08/30/18 at 12:45 Sodium Chloride 90 meq/Potassium Chloride 50 meq/ Potassium Phosphate 3 mmol/ Magnesium Sulfate 10 meq/Calcium Gluconate 10 meq/ Multivitamins 10 ml/Chromium/ Copper/Manganese/ Seleni/Zn 1 ml/ Total Parenteral Nutrition/Amino Acids/Dextrose/ Fat Emulsion Intravenous 1,512 ml @ 63 mls/hr TPN CONT IV Last administered on 08/30/18at 21:40; Start 08/30/18 at 22:00; Stop 08/31/18 at 21:59; Status DC Ondansetron HCl (Zofran) 4 mg PRN Q6HRS PRN IV NAUSEA/VOMITING; Start 08/31/18 at 08:00 Haloperidol (Haldol) 2 mg PRN QID PRN PO AGITATION; Start 08/31/18 at 08:00; Stop 08/31/18 at 12:43; Status DC Haloperidol Lactate (HALDOL 2mg ORAL CONC) 2 mg PRN QID PRN PO AGITATION; Start 08/31/18 at 12:43 Sodium Chloride 90 meq/Potassium Chloride 50 meq/ Potassium Phosphate 5 mmol/ Magnesium Sulfate 3 meq/Calcium Gluconate 10 meq/ Multivitamins 10 ml/Chromium/ Copper/Manganese/ Seleni/Zn 1 ml/ Total Parenteral Nutrition/Amino Acids/Dextrose 1,512 ml @ 63 mls/hr TPN CONT IV Last administered on 08/31/18at 20:59; Start 08/31/18 at 22:00; Stop 09/01/18 at 21:59; Status DC Propofol 100 ml @ As Directed STK-MED ONCE IV ; Start 08/31/18 at 22:45; Stop 08/31/18 at 22:46; Status DC Succinylcholine Chloride (Anectine) 200 mg STK-MED ONCE .ROUTE ; Start 08/31/18 at 22:46; Stop 08/31/18 at 22:47; Status DC Atropine Sulfate (ATROPINE 1mg SYRINGE) 1 mg STK-MED ONCE .ROUTE ; Start 08/31/18 at 22:58; Stop 08/31/18 at 22:59; Status DC Fentanyl Citrate 30 ml @ 0 mls/hr CONT PRN IV SEE PROTOCOL Last administered on 09/04/18at 05:38; Start 09/01/18 at 00:00 Propofol 100 ml @ 0 mls/hr CONT PRN IV SEE PROTOCOL Last administered on 09/04/18at 08:08; Start 09/01/18 at 00:00 Chlorhexidine Gluconate (Peridex) 15 ml BID MM Last administered on 09/04/18at 08:46; Start 09/01/18 at 09:00 Midazolam HCl 100 ml @ 0 mls/hr CONT PRN IV SEE PROTOCOL; Start 09/01/18 at 00:00 Albuterol/ Ipratropium (Duoneb) 3 ml RTQID NEB Last administered on 09/04/18at 09:00; Start 09/01/18 at 08:00 Albuterol/ Ipratropium (Duoneb) 3 ml 1X ONCE NEB Last administered on 09/01/18at 01:10; Start 09/01/18 at 01:00; Stop 09/01/18 at 01:01; Status DC Succinylcholine Chloride (Anectine) 200 mg 1X ONCE IV Last administered on 08/31/18at 23:04; Start 09/01/18 at 01:15; Stop 09/01/18 at 01:16; Status DC Sodium Chloride 1,000 ml @ 1,000 mls/hr Q1H PRN IV hypotension; Start 09/01/18 at 07:00; Stop 09/01/18 at 12:59; Status DC Sodium Chloride (Normal Saline Flush) 10 ml 1X PRN PRN IV AP catheter pack; Start 09/01/18 at 07:00; Stop 09/02/18 at 06:59; Status DC Sodium Chloride (Normal Saline Flush) 10 ml 1X PRN PRN IV MAINTENANCE OF WAY CLERK catheter pack; Start 09/01/18 at 07:00; Stop 09/02/18 at 06:59; Status DC Sodium Chloride 1,000 ml @ 400 mls/hr Q2H30M PRN IV PATENCY; Start 09/01/18 at 07:00; Stop 09/01/18 at 18:59; Status DC Info (PHARMACY MONITORING -- do not chart) 1 each PRN DAILY PRN MC SEE COM MENTS; Start 09/01/18 at 11:00; Status Cancel Info (PHARMACY MONITORING -- do not chart) 1 each PRN DAILY PRN MC SEE COMMENTS; Start 09/01/18 at 11:00; Status Cancel Famotidine (Pepcid Vial) 20 mg Q48H IVP Last administered on 09/03/18at 22:11; Start 09/03/18 at 21:00 Sodium Chloride 90 meq/Potassium Chloride 50 meq/ Potassium Phosphate 10 mmol/ Calcium Gluconate 10 meq/ Multivitamins 10 ml/Chromium/ Copper/Manganese/ Seleni/Zn 1 ml/ Total Parenteral Nutrition/Amino Acids/Dextrose 1,512 ml @ 63 mls/hr TPN CONT IV Last administered on 09/01/18at 22:11; Start 09/01/18 at 22:00; Stop 09/02/18 at 21:59; Status DC Piperacillin Sod/ Tazobactam Sod 2.25 gm/Sodium Chloride 50 ml @ 100 mls/hr Q6HRS IV Last administered on 09/04/18at 06:43; Start 09/01/18 at 14:00 Sodium Chloride 110 meq/Potassium Chloride 50 meq/ Potassium Phosphate 10 mmol/ Calcium Gluconate 10 meq/ Multivitamins 10 ml/Chromium/ Copper/Manganese/ Seleni/Zn 1 ml/ Magnesium Sulfate 3 meq/Total Parenteral Nutrition/Amino Acids/Dextrose 1,512 ml @ 63 mls/hr TPN CONT IV Last administered on 09/02/18at 22:13; Start 09/02/18 at 22:00; Stop 09/03/18 at 21:59; Status DC Darbepoetin Phil (Aranesp) 100 mcg [id number] SQ Last administered on 09/03/18at 22:11; Start 09/03/18 at 21:00 Sodium Chloride 130 meq/Potassium Acetate 20 meq/ Calcium Gluconate 10 meq/ Multivitamins 10 ml/Chromium/ Copper/Manganese/ Seleni/Zn 1 ml/ Magnesium Sulfate 3 meq/Total Parenteral Nutrition/Amino Acids/Dextrose 1,512 ml @ 63 mls/hr TPN CONT IV Last administered on 09/03/18at 22:12; Start 09/03/18 at 22:00; Stop 09/04/18 at 21:59 Albumin Human 200 ml @ 200 mls/hr 1X PRN PRN IV Hypotension; Start 09/03/18 at 10:00; Stop 09/03/18 at 21:00; Status DC Sodium Chloride (Normal Saline Flush) 10 ml 1X PRN PRN IV AP catheter pack; Start 09/03/18 at 10:00; Stop 09/03/18 at 21:00; Status DC Sodium Chloride (Normal Saline Flush) 10 ml 1X PRN PRN IV MAINTENANCE OF WAY CLERK catheter pack; Start 09/03/18 at 10:00; Stop 09/03/18 at 21:00; Status DC Sodium Chloride 1,000 ml @ 400 mls/hr Q2H30M PRN IV PATENCY; Start 09/03/18 at 10:00; Stop 09/03/18 at 21:59; Status DC Info (PHARMACY MONITORING -- do not chart) 1 each PRN DAILY PRN MC SEE COMMENTS; Start 09/03/18 at 18:15; Status UNV Atropine Sulfate (ATROPINE 0.5mg SYRINGE) 0.5 mg STK-MED ONCE .ROUTE ; Start 08/31/18 at 08:06; Stop 09/04/18 at 08:07; Status DC Epinephrine HCl (EPINEPHrine SYRINGE) 3 mg STK-MED ONCE .ROUTE ; Start 08/31/18 at 08:06; Stop 09/04/18 at 08:07; Status DC Sodium Bicarbonate (Sodium Bicarb Adult 8.4% Syr) 100 meq STK-MED ONCE .ROUTE ; Start 08/31/18 at 08:06; Stop 09/04/18 at 08:07; Status DC Levofloxacin/ Dextrose 150 ml @ 100 mls/hr QODAY IV Last administered on 09/04/18at 08:46; Start 09/04/18 at 09:00 Sodium Chloride 1,000 ml @ 1,000 mls/hr Q1H PRN IV hypotension; Start 09/04/18 at 08:23; Stop 09/04/18 at 14:22 Albumin Human 200 ml @ 200 mls/hr 1X PRN PRN IV Hypotension; Start 09/04/18 at 08:30; Stop 09/04/18 at 14:29 Sodium Chloride 1,000 ml @ 400 mls/hr Q2H30M PRN IV PATENCY; Start 09/04/18 at 08:23; Stop 09/04/18 at 20:22 Info (PHARMACY MONITORING -- do not chart) 1 each PRN DAILY PRN MC SEE COMMENTS; Start 09/04/18 at 08:30 Info (PHARMACY MONITORING -- do not chart) 1 each PRN DAILY PRN MC SEE COMMENTS; Start 09/04/18 at 08:30; Status UNV Active Scripts Active Potassium Chloride 20 Meq Tablet.er 20 Meq PO DAILY Orphenadrine Citrate 100 Mg Tablet.er 100 Mg PO Q12HR Anaprox Ds (Naproxen Sodium) 550 Mg Tablet 550 Mg PO Q12HR Reported Prednisone 20 Mg Tablet 1 Tab PO DAILY Hydrochlorothiazide Tablet (Hydrochlorothiazide) 12.5 Mg Tablet 12.5 Mg PO DAILY Shilpi Allergy (Fexofenadine Hcl) 180 Mg Tablet 1 Tab PO DAILY Vitals/I & O Vital Sign - Last 24 Hours 09/03/18 09/03/18 09/03/18 09/03/18 10:00 11:00 12:00 12:00 Temp 98.2 98.2 Pulse 71 73 71 Resp 19 20 18 B/P (MAP) 156/81 (106) 151/77 (101) 146/71 (96) Pulse Ox 100 100 100 O2 Delivery Ventilator Ventilator Ventilator Mechanical Ventilator 09/03/18 09/03/18 09/03/18 09/03/18 13:00 13:33 14:00 14:21 Pulse 71 72 Resp 19 19 B/P (MAP) 145/68 (93) 148/66 (93) Pulse Ox 100 100 100 100 O2 Delivery Ventilator Ventilator Ventilator Ventilator 09/03/18 09/03/18 09/03/18 09/03/18 15:00 16:00 16:00 16:22 Temp 99.2 99.2 Pulse 72 74 Resp 20 20 B/P (MAP) 144/65 (91) 146/65 (92) Pulse Ox 100 100 100 O2 Delivery Ventilator Ventilator Mechanical Ventilator Ventilator 09/03/18 09/03/18 09/03/18 09/03/18 17:00 17:40 17:53 18:00 Pulse 81 79 Resp 22 19 B/P (MAP) 139/74 (95) 134/73 (93) Pulse Ox 100 100 100 100 O2 Delivery Ventilator Ventilator Ventilator O2 Flow Rate 15.0 09/03/18 09/03/18 09/03/18 09/03/18 19:00 20:00 20:00 20:30 Temp 99.0 99.0 Pulse 80 80 Resp 19 18 B/P (MAP) 131/72 (91) 130/68 (88) Pulse Ox 100 100 100 O2 Delivery Ventilator Ventilator Mechanical Ventilator Ventilator 09/03/18 09/03/18 09/03/18 09/03/18 21:00 22:00 22:14 23:00 Pulse 84 86 82 Resp 18 19 18 B/P (MAP) 118/66 (83) 131/74 (93) 145/69 (94) Pulse Ox 100 100 100 100 O2 Delivery Ventilator Ventilator Ventilator Ventilator 09/04/18 09/04/18 09/04/18 09/04/18 00:00 00:00 00:15 01:00 Temp 99.2 99.2 Pulse 84 84 Resp 17 14 B/P (MAP) 145/69 (94) 148/67 (94) Pulse Ox 100 100 99 O2 Delivery Mechanical Ventilator Ventilator Ventilator Ventilator 09/04/18 09/04/18 09/04/18 09/04/18 02:00 02:05 03:00 04:00 Pulse 86 88 Resp 14 18 B/P (MAP) 155/70 (98) 154/72 (99) Pulse Ox 97 100 96 O2 Delivery Ventilator Ventilator Ventilator Mechanical Ventilator 09/04/18 09/04/18 09/04/18 09/04/18 04:00 04:20 05:00 05:38 Temp 100.4 100.4 Pulse 92 88 Resp 19 16 B/P (MAP) 148/67 (94) 135/65 (88) Pulse Ox 97 100 98 100 O2 Delivery Ventilator Ventilator Ventilator Ventilator 09/04/18 09/04/18 09/04/18 09/04/18 06:00 06:08 08:00 08:00 Temp 102.0 102.0 Pulse 88 88 Resp 16 18 B/P (MAP) 140/67 (91) 141/69 (93) Pulse Ox 99 100 97 O2 Delivery Ventilator Ventilator Mechanical Ventilator O2 Flow Rate 15.0 09/04/18 09:00 Pulse 87 Resp 16 B/P (MAP) 145/70 (95) Pulse Ox 98 O2 Delivery Ventilator Intake and Output 09/03/18 09/03/18 09/04/18 14:59 22:59 06:59 Intake Total 1333 ml 1370 ml Output Total 35 ml 25 ml 15 ml Balance -35 ml 1308 ml 1355 ml VIJAY BLEVINS MD September 04, 2018 09:29
--- NOTE | 2018-09-04 09:59 | PDOC ---
Objective: Objective: D/w RN - tolerating tube feeds, has a fever and checking cultures. Remains on TPN. Vital Signs: Vital Signs Date Time Temp Pulse Resp B/P (MAP) Pulse Ox O2 Delivery O2 Flow Rate FiO2 09/04/18 09:00 87 16 145/70 (95) 98 Ventilator 09/04/18 08:00 102.0 102.0 09/04/18 06:08 15.0 Labs: Laboratory Tests Test 09/04/18 05:00 Sodium Level 135 mmol/L Potassium Level 4.7 mmol/L Chloride Level 98 mmol/L Carbon Dioxide Level 25 mmol/L Anion Gap 12 Blood Urea Nitrogen 55 mg/dL Creatinine 6.4 mg/dL Estimated GFR (Cockcroft-Gault) 9.2 Glucose Level 148 mg/dL Calcium Level 7.6 mg/dL Phosphorus Level 4.2 mg/dL Albumin 2.0 g/dL PE: GEN: intubated HEENT: NG tube w/ tube feeds LUNGS: vent HEART: RRR ABD: quiet BS, soft, non-distended NEURO/PSYCH: sedate A/P: Suspected tick-borne illness/MOSF -- Tolerating tube feeds. Other per Dr. Rizo. ELVIA NOE September 04, 2018 09:59
--- NOTE | 2018-09-04 10:26 | PDOC ---
PROGRESS NOTES Assessment Problems Medical Problems: (1) Acute renal failure Status: Acute Intubated and returned to ICU over the weekend Metabolic encephalopathy. 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 Discussed with his Objective Vital Signs Date Time Temp Pulse Resp B/P (MAP) Pulse Ox O2 Delivery O2 Flow Rate FiO2 09/04/18 09:00 87 16 145/70 (95) 98 Ventilator 09/04/18 08:00 102.0 102.0 09/04/18 06:08 15.0 Intake and Output 09/04/18 07:00 Intake Total 2703 ml Output Total 75 ml Balance 2628 ml IV Total 2503 ml Tube Feeding 200 ml Output Urine Total 75 ml Gastric Drainage Total 0 ml PHYSICAL EXAM Intubated, sedated in ICU PERRL. EOMI. CN: no focal findings. Muscle tone: normal. Muscle strength: Moves legs spontaneously DTR: 1+ Plantar reflex: silent Gait: not examined in bed. Sensory exam: no abnormal findings. No cerebellar signs elicited. Review of Relevant I have reviewed the following items gera (where applicable) has been applied. Labs Laboratory Tests Test 09/03/18 05:45 09/03/18 08:30 09/04/18 05:00 White Blood Count 7.9 x10^3/uL (4.0-11.0) Red Blood Count 2.62 x10^6/uL (4.30-5.70) Hemoglobin 7.6 g/dL (13.0-17.5) Hematocrit 22.6 % (39.0-53.0) Mean Corpuscular Volume 86 fL (79-100) Mean Corpuscular Hemoglobin 29 pg (25-35) Mean Corpuscular Hemoglobin Concent 34 g/dL (31-37) Red Cell Distribution Width 17.5 % (11.5-14.5) Platelet Count 139 x10^3/uL (140-400) Neutrophils (%) (Auto) 41 % (31-73) Lymphocytes (%) (Auto) 35 % (24-48) Monocytes (%) (Auto) 20 % (0-9) Eosinophils (%) (Auto) 3 % (0-3) Basophils (%) (Auto) 1 % (0-3) Neutrophils # (Auto) 3.3 x10^3uL (1.8-7.7) Lymphocytes # (Auto) 2.8 x10^3/uL (1.0-4.8) Monocytes # (Auto) 1.5 x10^3/uL (0.0-1.1) Eosinophils # (Auto) 0.3 x10^3/uL (0.0-0.7) Basophils # (Auto) 0.1 x10^3/uL (0.0-0.2) Sodium Level 135 mmol/L (136-145) 135 mmol/L (136-145) Potassium Level 5.2 mmol/L (3.5-5.1) 4.7 mmol/L (3.5-5.1) Chloride Level 100 mmol/L (98-107) 98 mmol/L (98-107) Carbon Dioxide Level 20 mmol/L (21-32) 25 mmol/L (21-32) Anion Gap 15 (6-14) 12 (6-14) Blood Urea Nitrogen 98 mg/dL (8-26) 55 mg/dL (8-26) Creatinine 10.7 mg/dL (0.7-1.3) 6.4 mg/dL (0.7-1.3) Estimated GFR (Cockcroft-Gault) 5.1 9.2 Glucose Level 179 mg/dL (70-99) 148 mg/dL (70-99) Calcium Level 7.8 mg/dL (8.5-10.1) 7.6 mg/dL (8.5-10.1) Phosphorus Level 5.8 mg/dL (2.6-4.7) 4.2 mg/dL (2.6-4.7) Albumin 2.1 g/dL (3.4-5.0) 2.0 g/dL (3.4-5.0) Treponema pallidum Antibody Nonreactive (Nonreactive) O2 Saturation 97 % (92-99) Arterial Blood pH 7.31 (7.35-7.45) Arterial Blood pCO2 at Patient Temp 35 mmHg (35-46) Arterial Blood pO2 at Patient Temp 125 mmHg (75-108) Arterial Blood HCO3 17 mmol/L (21-28) Arterial Blood Base Excess -8 mmol/L (-3-3) FiO2 97 Laboratory Tests Test 09/04/18 05:00 Sodium Level 135 mmol/L (136-145) Potassium Level 4.7 mmol/L (3.5-5.1) Chloride Level 98 mmol/L (98-107) Carbon Dioxide Level 25 mmol/L (21-32) Anion Gap 12 (6-14) Blood Urea Nitrogen 55 mg/dL (8-26) Creatinine 6.4 mg/dL (0.7-1.3) Estimated GFR (Cockcroft-Gault) 9.2 Glucose Level 148 mg/dL (70-99) Calcium Level 7.6 mg/dL (8.5-10.1) Phosphorus Level 4.2 mg/dL (2.6-4.7) Albumin 2.0 g/dL (3.4-5.0) Microbiology 09/02/18 Blood Culture - Preliminary, Resulted NO GROWTH AFTER 2 DAYS 08/29/18 CSF Gram Stain - Final, Complete 08/27/18 Stool Culture - Final, Complete 08/27/18 Stool Culture Result 1 (LOTUS) - Final, Complete 08/27/18 Campylobacter Antigen Assay - Final, Complete 08/27/18 Campylobactor Result 1 - Final, Complete 08/27/18 Shiga Toxin Test - Final, Complete Medications Current Medications Sodium Chloride 1,000 ml @ 1,000 mls/hr 1X ONCE IV Last administered on 08/25/18at 20:38; Start 08/25/18 at 19:15; Stop 08/25/18 at 20:14; Status DC Ibuprofen (Motrin) 600 mg 1X ONCE PO Last administered on 08/25/18at 20:38; Start 08/25/18 at 19:45; Stop 08/25/18 at 19:49; Status DC Sodium Chloride 1,000 ml @ 1,000 mls/hr 1X ONCE IV Last administered on 08/25/18at 20:30; Start 08/25/18 at 20:30; Stop 08/25/18 at 21:29; Status DC Ceftriaxone Sodium (Rocephin) 1 gm 1X ONCE IVP Last administered on 08/25/18at 20:36; Start 08/25/18 at 20:30; Stop 08/25/18 at 20:31; Status DC Vancomycin HCl 2 gm/Sodium Chloride 500 ml @ 250 mls/hr 1X ONCE IV Last administered on 08/25/18at 23:10; Start 08/25/18 at 21:30; Stop 08/25/18 at 23:29; Status DC Sodium Chloride 1,000 ml @ 1,000 mls/hr 1X ONCE IV Last administered on 08/25/18at 23:51; Start 08/25/18 at 21:00; Stop 08/25/18 at 21:59; Status DC Piperacillin Sod/ Tazobactam Sod 4.5 gm/Sodium Chloride 100 ml @ 200 mls/hr 1X ONCE IV ; Start 08/25/18 at 21:15; Stop 08/25/18 at 21:44; Status DC Aztreonam (Azactam) 2 gm 1X ONCE IVP Last administered on 08/25/18at 21:15; Start 08/25/18 at 21:15; Stop 08/25/18 at 21:16; Status DC Magnesium Sulfate 50 ml @ 25 mls/hr 1X ONCE IV Last administered on 08/25/18at 23:51; Start 08/25/18 at 21:15; Stop 08/25/18 at 23:14; Status DC Ondansetron HCl (Zofran) 4 mg PRN Q8HRS PRN IV NAUSEA/VOMITING; Start 08/25/18 at 21:15; Stop 08/26/18 at 21:14; Status DC Acetaminophen (Tylenol) 650 mg PRN Q4HRS PRN PO FEVER; Start 08/25/18 at 21:15; Stop 08/26/18 at 21:14; Status DC Sodium Chloride 1,000 ml @ 125 mls/hr 1X ONCE IV Last administered on 08/08 11/26at 23:09; Start 08/25/18 at 21:15; Stop 08/26/18 at 05:14; Status DC Daptomycin 610 mg/ Sodium Chloride 50 ml @ 100 mls/hr QODAY IV Last administered on 08/27/18at 08:59; Start 08/27/18 at 09:00; Stop 08/28/18 at 15:40; Status DC Meropenem 500 mg/ Sodium Chloride 50 ml @ 100 mls/hr 1X ONCE IV Last administered on 08/25/18at 22:12; Start 08/25/18 at 22:00; Stop 08/25/18 at 22:29; Status DC Doxycycline Hyclate 100 mg/ Dextrose 100 ml @ 50 mls/hr Q12HR IV Last administered on 09/03/18at 22:11; Start 08/26/18 at 09:00; Stop 09/04/18 at 08:11; Status DC Meropenem 500 mg/ Sodium Chloride 50 ml @ 100 mls/hr DAILY IV Last admi nistered on 08/29/18at 10:13; Start 08/26/18 at 09:00; Stop 08/30/18 at 08:17; Status DC Sodium Chloride (Normal Saline Flush) 10 ml QSHIFT PRN IV AFTER MEDS AND BLOOD DRAWS; Start 08/26/18 at 09:15 Norepinephrine Bitartrate 250 ml @ 0 mls/hr CONT PRN IV PER PROTOCOL Last administered on 08/27/18at 10:21; Start 08/26/18 at 09:15; Stop 08/30/18 at 17:20; Status DC Famotidine (Pepcid) 20 mg DAILY PO Last administered on 08/27/18at 08:14; Start 08/26/18 at 12:00; Stop 08/27/18 at 14:36; Status DC Sodium Chloride 1,000 ml @ 1,000 mls/hr Q1H PRN IV hypotension; Start 08/26/18 at 11:51; Stop 08/26/18 at 17:50; Status DC Sodium Chloride (Normal Saline Flush) 10 ml 1X PRN PRN IV AP catheter pack; Start 08/26/18 at 12:00; Stop 08/27/18 at 11:59; Status DC Sodium Chloride (Normal Saline Flush) 10 ml 1X PRN PRN IV ANIMAL STUNNER catheter pack; Start 08/26/18 at 12:00; Stop 08/27/18 at 11:59; Status DC Sodium Chloride 1,000 ml @ 400 mls/hr Q2H30M PRN IV PATENCY; Start 08/26/18 at 11:51; Stop 08/26/18 at 23:50; Status DC Info (PHARMACY MONITORING -- do not chart) 1 each PRN DAILY PRN MC SEE COMMENTS; Start 08/26/18 at 12:00; Status UNV Info (PHARMACY MONITORING -- do not chart) 1 each PRN DAILY PRN MC SEE COMMENTS; Start 08/26/18 at 12:00; Stop 09/01/18 at 10:59; Status DC Lidocaine/Sodium Bicarbonate (Buffered Lidocaine 1%) 4 ml 1X ONCE INJ Last administered on 08/26/18at 12:45; Start 08/26/18 at 12:45; Stop 08/26/18 at 12:48; Status DC Heparin Sodium (Porcine) (Heparin Sodium) 2,500 unit 1X ONCE INT CAT Last administered on 08/26/18at 12:45; Start 08/26/18 at 12:45; Stop 08/26/18 at 12:48; Status DC Lidocaine/Sodium Bicarbonate (Buffered Lidocaine 1%) 3 ml STK-MED ONCE .ROUTE ; Start 08/26/18 at 12:49; Stop 08/26/18 at 12:50; Status DC Heparin Sodium (Porcine) (Heparin Sodium) 10,000 unit STK-MED ONCE .ROUTE ; Start 08/26/18 at 12:49; Stop 08/26/18 at 12:50; Status DC Lactobacillus Rhamnosus (Culturelle) 1 cap BID PO Last administered on 09/04/18at 08:46; Start 08/26/18 at 21:00 Acetaminophen (Tylenol) 325 mg STK-MED ONCE PO ; Start 08/27/18 at 00:43; Stop 08/27/18 at 00:44; Status DC Sodium Chloride 1,000 ml @ 1,000 mls/hr 1X ONCE IV Last administered on 08/27/18at 11:05; Start 08/27/18 at 10:30; Stop 08/27/18 at 11:29; Status DC Sodium Chloride 1,000 ml @ 1,000 mls/hr Q1H PRN IV hypotension; Start 08/27/18 at 11:28; Stop 08/27/18 at 17:27; Status DC Albumin Human 200 ml @ 200 mls/hr 1X PRN PRN IV Hypotension; Start 08/27/18 at 11:30; Stop 08/27/18 at 17:29; Status DC Sodium Chloride (Normal Saline Flush) 10 ml 1X PRN PRN IV AP catheter pack; Start 08/27/18 at 11:30; Stop 08/28/18 at 11:29; Status DC Sodium Chloride (Normal Saline Flush) 10 ml 1X PRN PRN IV ANIMAL STUNNER catheter pack; Start 08/27/18 at 11:30; Stop 08/28/18 at 11:29; Status DC Sodium Chloride 1,000 ml @ 400 mls/hr Q2H30M PRN IV PATENCY; Start 08/27/18 at 11:28; Stop 08/27/18 at 23:27; Status DC Info (PHARMACY MONITORING -- do not chart) 1 each PRN DAILY PRN MC SEE COMMENTS; Start 08/27/18 at 11:30; Status UNV Info (PHARMACY MONITORING -- do not chart) 1 each PRN DAILY PRN MC SEE COMMENTS; Start 08/27/18 at 11:30; Status UNV Famotidine (Pepcid) 20 mg Q48H PO ; Start 08/29/18 at 09:00; Stop 08/29/18 at 11:29; Status DC Acetaminophen (Tylenol) 650 mg PRN Q6HRS PRN PO pain/fever; Start 08/27/18 at 21:15 Acetaminophen (Tylenol Supp) 650 mg PRN Q6HRS PRN GA MILD PAIN / TEMP Last administered on 09/02/18at 01:18; Start 08/27/18 at 21:15 Fentanyl Citrate (Fentanyl 2ml Vial) 25 mcg 1X ONCE IV Last administered on 08/28/18at 08:54; Start 08/28/18 at 08:45; Stop 08/28/18 at 08:47; Status DC Lidocaine/Sodium Bicarbonate (Buffered Lidocaine 1%) 3 ml STK-MED ONCE .ROUTE ; Start 08/28/18 at 09:55; Stop 08/28/18 at 09:56; Status DC Lidocaine HCl (Glydo (Lidocaine) Jelly) 1 meng 1X STAT MM Last administered on 08/28/18at 10:16; Start 08/28/18 at 10:16; Stop 08/28/18 at 10:19; Status DC Benzocaine (Hurricaine One) 1 spray 1X STAT MM Last administered on 08/28/18at 10:16; Start 08/28/18 at 10:16; Stop 08/28/18 at 10:19; Status DC Lidocaine/Sodium Bicarbonate (Buffered Lidocaine 1%) 3 ml 1X ONCE INJ ; Start 08/28/18 at 10:30; Stop 08/28/18 at 10:31; Status DC Haloperidol Lactate (Haldol Inj) 5 mg PRN Q6HRS PRN IVP AGITATION Last administered on 08/29/18at 20:31; Start 08/28/18 at 12:00 Fentanyl Citrate (Fentanyl 2ml Vial) 50 mcg PRN Q4HRS PRN IV PAIN Last administered on 08/28/18at 21:44; Start 08/28/18 at 15:30 Sodium Chloride 1,000 ml @ 1,000 mls/hr Q1H PRN IV hypotension; Start 08/28/18 at 14:00; Stop 08/28/18 at 19:59; Status DC Albumin Human 200 ml @ 200 mls/hr 1X PRN PRN IV Hypotension Last administered on 08/28/18at 14:50; Start 08/28/18 at 14:00; Stop 09/03/18 at 18:17; Status DC Sodium Chloride 1,000 ml @ 400 mls/hr Q2H30M PRN IV PATENCY; Start 08/28/18 at 14:00; Stop 08/29/18 at 01:59; Status DC Info (PHARMACY MONITORING -- do not chart) 1 each PRN DAILY PRN MC SEE COMMENTS; Start 08/28/18 at 15:30; Status UNV Info (PHARMACY MONITORING -- do not chart) 1 each PRN DAILY PRN MC SEE COMMENTS; Start 08/28/18 at 15:30; Status UNV Daptomycin 610 mg/ Sodium Chloride 50 ml @ 100 mls/hr Q48H IV ; Start 08/30/18 at 16:00; Stop 08/30/18 at 16:00; Status DC Famotidine (Pepcid Vial) 20 mg QHS IVP Last administered on 08/31/18at 20:59; Start 08/29/18 at 21:00; Stop 09/01/18 at 11:00; Status DC Acyclovir Sodium 340 mg/Dextrose 106.8 ml @ 106.8 mls/ hr Q12HR IV Last administered on 09/01/18at 11:05; Start 08/30/18 at 09:00; Stop 09/01/18 at 13:37; Status DC Sodium Chloride 1,000 ml @ 1,000 mls/hr Q1H PRN IV hypotension; Start 08/30/18 at 11:02; Stop 08/30/18 at 17:01; Status DC Sodium Chloride 1,000 ml @ 400 mls/hr Q2H30M PRN IV PATENCY; Start 08/30/18 at 11:02; Stop 08/30/18 at 23:01; Status DC Info (PHARMACY MONITORING -- do not chart) 1 each PRN DAILY PRN MC SEE COMMENTS; Start 08/30/18 at 11:15; Status UNV Info (PHARMACY MONITORING -- do not chart) 1 each PRN DAILY PRN MC SEE COMMENTS; Start 08/30/18 at 11:15; Status UNV Info (Tpn Per Pharmacy) 1 each PRN DAILY PRN MC SEE COMMENTS Last administered on 09/03/18at 10:53; Start 08/30/18 at 12:45 Sodium Chloride 90 meq/Potassium Chloride 50 meq/ Potassium Phosphate 3 mmol/ Magnesium Sulfate 10 meq/Calcium Gluconate 10 meq/ Multivitamins 10 ml/Chromium/ Copper/Manganese/ Seleni/Zn 1 ml/ Total Parenteral Nutrition/Amino Acids/Dextrose/ Fat Emulsion Intravenous 1,512 ml @ 63 mls/hr TPN CONT IV Last administered on 08/30/18at 21:40; Start 08/30/18 at 22:00; Stop 08/31/18 at 21:59; Status DC Ondansetron HCl (Zofran) 4 mg PRN Q6HRS PRN IV NAUSEA/VOMITING; Start 08/31/18 at 08:00 Haloperidol (Haldol) 2 mg PRN QID PRN PO AGITATION; Start 08/31/18 at 08:00; Stop 08/31/18 at 12:43; Status DC Haloperidol Lactate (HALDOL 2mg ORAL CONC) 2 mg PRN QID PRN PO AGITATION; Start 08/31/18 at 12:43 Sodium Chloride 90 meq/Potassium Chloride 50 meq/ Potassium Phosphate 5 mmol/ Magnesium Sulfate 3 meq/Calcium Gluconate 10 meq/ Multivitamins 10 ml/Chromium/ Copper/Manganese/ Seleni/Zn 1 ml/ Total Parenteral Nutrition/Amino Acids/Dextrose 1,512 ml @ 63 mls/hr TPN CONT IV Last administered on 08/31/18at 20:59; Start 08/31/18 at 22:00; Stop 09/01/18 at 21:59; Status DC Propofol 100 ml @ As Directed STK-MED ONCE IV ; Start 08/31/18 at 22:45; Stop 08/31/18 at 22:46; Status DC Succinylcholine Chloride (Anectine) 200 mg STK-MED ONCE .ROUTE ; Start 08/31/18 at 22:46; Stop 08/31/18 at 22:47; Status DC Atropine Sulfate (ATROPINE 1mg SYRINGE) 1 mg STK-MED ONCE .ROUTE ; Start 08/31/18 at 22:58; Stop 08/31/18 at 22:59; Status DC Fentanyl Citrate 30 ml @ 0 mls/hr CONT PRN IV SEE PROTOCOL Last administered on 09/04/18at 05:38; Start 09/01/18 at 00:00 Propofol 100 ml @ 0 mls/hr CONT PRN IV SEE PROTOCOL Last administered on 09/04/18at 08:08; Start 09/01/18 at 00:00 Chlorhexidine Gluconate (Peridex) 15 ml BID MM Last administered on 09/04/18at 08:46; Start 09/01/18 at 09:00 Midazolam HCl 100 ml @ 0 mls/hr CONT PRN IV SEE PROTOCOL; Start 09/01/18 at 00:00 Albuterol/ Ipratropium (Duoneb) 3 ml RTQID NEB Last administered on 09/04/18at 09:00; Start 09/01/18 at 08:00 Albuterol/ Ipratropium (Duoneb) 3 ml 1X ONCE NEB Last administered on 09/01/18at 01:10; Start 09/01/18 at 01:00; Stop 09/01/18 at 01:01; Status DC Succinylcholine Chloride (Anectine) 200 mg 1X ONCE IV Last administered on 08/31/18at 23:04; Start 09/01/18 at 01:15; Stop 09/01/18 at 01:16; Status DC Sodium Chloride 1,000 ml @ 1,000 mls/hr Q1H PRN IV hypotension; Start 09/01/18 at 07:00; Stop 09/01/18 at 12:59; Status DC Sodium Chloride (Normal Saline Flush) 10 ml 1X PRN PRN IV AP catheter pack; Start 09/01/18 at 07:00; Stop 09/02/18 at 06:59; Status DC Sodium Chloride (Normal Saline Flush) 10 ml 1X PRN PRN IV ANIMAL STUNNER catheter pack; Start 09/01/18 at 07:00; Stop 09/02/18 at 06:59; Status DC Sodium Chloride 1,000 ml @ 400 mls/hr Q2H30M PRN IV PATENCY; Start 09/01/18 at 07:00; Stop 09/01/18 at 18:59; Status DC Info (PHARMACY MONITORING -- do not chart) 1 each PRN DAILY PRN MC SEE COMMENTS; Start 09/01/18 at 11:00; Status Cancel Info (PHARMACY MONITORING -- do not chart) 1 each PRN DAILY PRN MC SEE COMMENTS; Start 09/01/18 at 11:00; Status Cancel Famotidine (Pepcid Vial) 20 mg Q48H IVP Last administered on 09/03/18at 22:11; Start 09/03/18 at 21:00 Sodium Chloride 90 meq/Potassium Chloride 50 meq/ Potassium Phosphate 10 mmol/ Calcium Gluconate 10 meq/ Multivitamins 10 ml/Chromium/ Copper/Manganese/ Seleni/Zn 1 ml/ Total Parenteral Nutrition/Amino Acids/Dextrose 1,512 ml @ 63 mls/hr TPN CONT IV Last administered on 09/01/18at 22:11; Start 09/01/18 at 22:00; Stop 09/02/18 at 21:59; Status DC Piperacillin Sod/ Tazobactam Sod 2.25 gm/Sodium Chloride 50 ml @ 100 mls/hr Q6HRS IV Last administered on 09/04/18at 06:43; Start 09/01/18 at 14:00 Sodium Chloride 110 meq/Potassium Chloride 50 meq/ Potassium Phosphate 10 mmol/ Calcium Gluconate 10 meq/ Multivitamins 10 ml/Chromium/ Copper/Manganese/ Seleni/Zn 1 ml/ Magnesium Sulfate 3 meq/Total Parenteral Nutrition/Amino Acids/Dextrose 1,512 ml @ 63 mls/hr TPN CONT IV Last administered on 09/02/18at 22:13; Start 09/02/18 at 22:00; Stop 09/03/18 at 21:59; Status DC Darbepoetin Phil (Aranesp) 100 mcg [id number] SQ Last administered on 09/03/18at 22:11; Start 09/03/18 at 21:00 Sodium Chloride 130 meq/Potassium Acetate 20 meq/ Calcium Gluconate 10 meq/ Multivitamins 10 ml/Chromium/ Copper/Manganese/ Seleni/Zn 1 ml/ Magnesium Sulfate 3 meq/Total Parenteral Nutrition/Amino Acids/Dextrose 1,512 ml @ 63 mls/hr TPN CONT IV Last administered on 09/03/18at 22:12; Start 09/03/18 at 22:00; Stop 09/04/18 at 21:59 Albumin Human 200 ml @ 200 mls/hr 1X PRN PRN IV Hypotension; Start 09/03/18 at 10:00; Stop 09/03/18 at 21:00; Status DC Sodium Chloride (Normal Saline Flush) 10 ml 1X PRN PRN IV AP catheter pack; Start 09/03/18 at 10:00; Stop 09/03/18 at 21:00; Status DC Sodium Chloride (Normal Saline Flush) 10 ml 1X PRN PRN IV ANIMAL STUNNER catheter pack; Start 09/03/18 at 10:00; Stop 09/03/18 at 21:00; Status DC Sodium Chloride 1,000 ml @ 400 mls/hr Q2H30M PRN IV PATENCY; Start 09/03/18 at 10:00; Stop 09/03/18 at 21:59; Status DC Info (PHARMACY MONITORING -- do not chart) 1 each PRN DAILY PRN MC SEE COMMENTS; Start 09/03/18 at 18:15; Status UNV Atropine Sulfate (ATROPINE 0.5mg SYRINGE) 0.5 mg STK-MED ONCE .ROUTE ; Start 08/31/18 at 08:06; Stop 09/04/18 at 08:07; Status DC Epinephrine HCl (EPINEPHrine SYRINGE) 3 mg STK-MED ONCE .ROUTE ; Start 08/31/18 at 08:06; Stop 09/04/18 at 08:07; Status DC Sodium Bicarbonate (Sodium Bicarb Adult 8.4% Syr) 100 meq STK-MED ONCE .ROUTE ; Start 08/31/18 at 08:06; Stop 09/04/18 at 08:07; Status DC Levofloxacin/ Dextrose 150 ml @ 100 mls/hr QODAY IV Last administered on 09/04/18at 08:46; Start 09/04/18 at 09:00 Sodium Chloride 1,000 ml @ 1,000 mls/hr Q1H PRN IV hypotension; Start 09/04/18 at 08:23; Stop 09/04/18 at 14:22 Albumin Human 200 ml @ 200 mls/hr 1X PRN PRN IV Hypotension; Start 09/04/18 at 08:30; Stop 09/04/18 at 14:29 Sodium Chloride 1,000 ml @ 400 mls/hr Q2H30M PRN IV PATENCY; Start 09/04/18 at 08:23; Stop 09/04/18 at 20:22 Info (PHARMACY MONITORING -- do not chart) 1 each PRN DAILY PRN MC SEE COMMENTS; Start 09/04/18 at 08:30 Info (PHARMACY MONITORING -- do not chart) 1 each PRN DAILY PRN MC SEE COMMENTS; Start 09/04/18 at 08:30; Status UNV Active Scripts Active Potassium Chloride 20 Meq Tablet.er 20 Meq PO DAILY Orphenadrine Citrate 100 Mg Tablet.er 100 Mg PO Q12HR Anaprox Ds (Naproxen Sodium) 550 Mg Tablet 550 Mg PO Q12HR Reported Prednisone 20 Mg Tablet 1 Tab PO DAILY Hydrochlorothiazide Tablet (Hydrochlorothiazide) 12.5 Mg Tablet 12.5 Mg PO DAILY Shilpi Allergy (Fexofenadine Hcl) 180 Mg Tablet 1 Tab PO DAILY Vitals/I & O Vital Sign - Last 24 Hours 09/03/18 09/03/18 09/03/18 09/03/18 11:00 12:00 12:00 13:00 Temp 98.2 98.2 Pulse 73 71 71 Resp 20 18 19 B/P (MAP) 151/77 (101) 146/71 (96) 145/68 (93) Pulse Ox 100 100 100 O2 Delivery Ventilator Ventilator Mechanical Ventilator Ventilator 09/03/18 09/03/18 09/03/18 09/03/18 13:33 14:00 14:21 15:00 Pulse 72 72 Resp 19 20 B/P (MAP) 148/66 (93) 144/65 (91) Pulse Ox 100 100 100 100 O2 Delivery Ventilator Ventilator Ventilator Ventilator 09/03/18 09/03/18 09/03/18 09/03/18 16:00 16:00 16:22 17:00 Temp 99.2 99.2 Pulse 74 81 Resp 20 22 B/P (MAP) 146/65 (92) 139/74 (95) Pulse Ox 100 100 100 O2 Delivery Ventilator Mechanical Ventilator Ventilator Ventilator 09/03/18 09/03/18 09/03/18 09/03/18 17:40 17:53 18:00 19:00 Temp 99.0 99.0 Pulse 79 80 Resp 19 19 B/P (MAP) 134/73 (93) 131/72 (91) Pulse Ox 100 100 100 100 O2 Delivery Ventilator Ventilator Ventilator O2 Flow Rate 15.0 09/03/18 09/03/18 09/03/18 09/03/18 20:00 20:00 20:30 21:00 Pulse 80 84 Resp 18 18 B/P (MAP) 130/68 (88) 118/66 (83) Pulse Ox 100 100 100 O2 Delivery Ventilator Mechanical Ventilator Ventilator Ventilator 09/03/18 09/03/18 09/03/18 09/04/18 22:00 22:14 23:00 00:00 Pulse 86 82 Resp 19 18 B/P (MAP) 131/74 (93) 145/69 (94) Pulse Ox 100 100 100 O2 Delivery Ventilator Ventilator Ventilator Mechanical Ventilator 09/04/18 09/04/18 09/04/18 09/04/18 00:00 00:15 01:00 02:00 Temp 99.2 99.2 Pulse 84 84 86 Resp 17 14 14 B/P (MAP) 145/69 (94) 148/67 (94) 155/70 (98) Pulse Ox 100 100 99 97 O2 Delivery Ventilator Ventilator Ventilator Ventilator 09/04/18 09/04/18 09/04/18 09/04/18 02:05 03:00 04:00 04:00 Temp 100.4 100.4 Pulse 88 92 Resp 18 19 B/P (MAP) 154/72 (99) 148/67 (94) Pulse Ox 100 96 97 O2 Delivery Ventilator Ventilator Mechanical Ventilator Ventilator 09/04/18 09/04/18 09/04/18 09/04/18 04:20 05:00 05:38 06:00 Pulse 88 88 Resp 16 16 B/P (MAP) 135/65 (88) 140/67 (91) Pulse Ox 100 98 100 99 O2 Delivery Ventilator Ventilator Ventilator Ventilator 09/04/18 09/04/18 09/04/18 09/04/18 06:08 08:00 08:00 09:00 Temp 102.0 102.0 Pulse 88 87 Resp 18 16 B/P (MAP) 141/69 (93) 145/70 (95) Pulse Ox 100 97 98 O2 Delivery Ventilator Mechanical Ventilator Ventilator O2 Flow Rate 15.0 Intake and Output 09/03/18 09/03/18 09/04/18 15:00 23:00 07:00 Intake Total 1333 ml 1370 ml Output Total 35 ml 30 ml 10 ml Balance -35 ml 1303 ml 1360 ml Images MRI of the brain without contrast 08/31/2018 Clinical History: Altered mental status. Mental status changes. Encephalopathy. Technique: Unenhanced T1-weighted sagittal and axial, T2-weighted axial and coronal and FLAIR, gradient echo and diffusion-weighted axial images of the brain were obtained. Findings: Comparison is made to the patient's CT scan of the head dated 08/29/2018. Images from the study are degraded patient motion. The ventricles and sulci are within normal limits in size and configuration. No definite area of significant area of abnormal signal intensity is seen involving the brain parenchyma. No extra-axial fluid collection is seen. There is no MRI evidence of acute ischemia/infarction. Mild mucosal thickening is seen scattered throughout the paranasal sinuses. There are small to moderate-sized bilateral mastoid effusions. Normal flow voids are seen within the major vascular structures surrounding the brain parenchyma. IMPRESSION: No acute parenchymal abnormality is seen. EEG on 08/27/18: Encephalopathy. No seizure activity. HCT on 08/28/18: negative. CSF WBC 112, mono 89%, poly 11%, RBC 11, glucose 52, protein 160.2. MARBIN GARCIA MD September 04, 2018 10:26
--- NOTE | 2018-09-04 10:54 | PDOC ---
Renal-Progress Notes Subjective Notes Notes UNRESPONSIVE ON THE VENT History of Present Illness Hx of present illness NO ACUTE CHANGES, PROLONGED ILLNESS Vitals Vitals Vital Signs Date Time Temp Pulse Resp B/P (MAP) Pulse Ox O2 Delivery O2 Flow Rate FiO2 09/04/18 10:00 84 16 133/68 (89) 98 Ventilator 09/04/18 08:00 102.0 102.0 09/04/18 06:08 15.0 Weight Weight [ ] I.O. Intake and Output Intake and Output 09/04/18 07:00 Intake Total 2703 ml Output Total 75 ml Balance 2628 ml IV Total 2503 ml Tube Feeding 200 ml Output Urine Total 75 ml Gastric Drainage Total 0 ml Labs Labs Laboratory Tests Test 09/04/18 05:00 Sodium Level 135 mmol/L (136-145) Potassium Level 4.7 mmol/L (3.5-5.1) Chloride Level 98 mmol/L (98-107) Carbon Dioxide Level 25 mmol/L (21-32) Anion Gap 12 (6-14) Blood Urea Nitrogen 55 mg/dL (8-26) Creatinine 6.4 mg/dL (0.7-1.3) Estimated GFR (Cockcroft-Gault) 9.2 Glucose Level 148 mg/dL (70-99) Calcium Level 7.6 mg/dL (8.5-10.1) Phosphorus Level 4.2 mg/dL (2.6-4.7) Albumin 2.0 g/dL (3.4-5.0) Micro Micro Microbiology 09/02/18 Blood Culture - Preliminary, Resulted NO GROWTH AFTER 2 DAYS 08/29/18 CSF Gram Stain - Final, Complete 08/27/18 Stool Culture - Final, Complete 08/27/18 Stool Culture Result 1 (LOTUS) - Final, Complete 08/27/18 Campylobacter Antigen Assay - Final, Complete 08/27/18 Campylobactor Result 1 - Final, Complete 08/27/18 Shiga Toxin Test - Final, Complete Physical Exam Skin: warm, dry, moist Respiratory: decreased breath sounds Heart: S1S2 Abdomen: soft, other (HYPOACTIVE) Genitourinary: bladder flat, rose catheter Extremities: pulses present Neurology: other (SEDATED) Assessment Assessment IMP RADHA-ATN SEPSIS THROMBOCYTOPENIA-IMPROVING ACUTE RESP FAILURE LACTIC ACIDOSIS LEUCOCYTOSIS PLAN HD TODAY UF TOLERATED VENT SUPPORT TPN TO CONTINUE ANTIBIOTICS WILL FOLLOW UPDATED AT BEDSIDE MIRNA BLUNT MD September 04, 2018 10:54
--- NOTE | 2018-09-04 11:19 | PDOC ---
SURGICAL PROGRESS NOTE Subjective TF now at 20cc/hr minimal residuals Vital Signs Vital Signs Date Time Temp Pulse Resp B/P (MAP) Pulse Ox O2 Delivery O2 Flow Rate FiO2 09/04/18 11:00 86 17 125/68 (87) 96 Ventilator 09/04/18 08:00 102.0 102.0 09/04/18 06:08 15.0 I&O Intake and Output 09/04/18 07:00 Intake Total 2703 ml Output Total 75 ml Balance 2628 ml IV Total 2503 ml Tube Feeding 200 ml Output Urine Total 75 ml Gastric Drainage Total 0 ml General: Other (vent support) Abdomen: Soft, Other (TF infusing) Labs Laboratory Tests Test 09/03/18 05:45 09/03/18 08:30 09/04/18 05:00 White Blood Count 7.9 x10^3/uL (4.0-11.0) Red Blood Count 2.62 x10^6/uL (4.30-5.70) Hemoglobin 7.6 g/dL (13.0-17.5) Hematocrit 22.6 % (39.0-53.0) Mean Corpuscular Volume 86 fL (79-100) Mean Corpuscular Hemoglobin 29 pg (25-35) Mean Corpuscular Hemoglobin Concent 34 g/dL (31-37) Red Cell Distribution Width 17.5 % (11.5-14.5) Platelet Count 139 x10^3/uL (140-400) Neutrophils (%) (Auto) 41 % (31-73) Lymphocytes (%) (Auto) 35 % (24-48) Monocytes (%) (Auto) 20 % (0-9) Eosinophils (%) (Auto) 3 % (0-3) Basophils (%) (Auto) 1 % (0-3) Neutrophils # (Auto) 3.3 x10^3uL (1.8-7.7) Lymphocytes # (Auto) 2.8 x10^3/uL (1.0-4.8) Monocytes # (Auto) 1.5 x10^3/uL (0.0-1.1) Eosinophils # (Auto) 0.3 x10^3/uL (0.0-0.7) Basophils # (Auto) 0.1 x10^3/uL (0.0-0.2) Sodium Level 135 mmol/L (136-145) 135 mmol/L (136-145) Potassium Level 5.2 mmol/L (3.5-5.1) 4.7 mmol/L (3.5-5.1) Chloride Level 100 mmol/L (98-107) 98 mmol/L (98-107) Carbon Dioxide Level 20 mmol/L (21-32) 25 mmol/L (21-32) Anion Gap 15 (6-14) 12 (6-14) Blood Urea Nitrogen 98 mg/dL (8-26) 55 mg/dL (8-26) Creatinine 10.7 mg/dL (0.7-1.3) 6.4 mg/dL (0.7-1.3) Estimated GFR (Cockcroft-Gault) 5.1 9.2 Glucose Level 179 mg/dL (70-99) 148 mg/dL (70-99) Calcium Level 7.8 mg/dL (8.5-10.1) 7.6 mg/dL (8.5-10.1) Phosphorus Level 5.8 mg/dL (2.6-4.7) 4.2 mg/dL (2.6-4.7) Albumin 2.1 g/dL (3.4-5.0) 2.0 g/dL (3.4-5.0) Treponema pallidum Antibody Nonreactive (Nonreactive) O2 Saturation 97 % (92-99) Arterial Blood pH 7.31 (7.35-7.45) Arterial Blood pCO2 at Patient Temp 35 mmHg (35-46) Arterial Blood pO2 at Patient Temp 125 mmHg (75-108) Arterial Blood HCO3 17 mmol/L (21-28) Arterial Blood Base Excess -8 mmol/L (-3-3) FiO2 97 Laboratory Tests Test 09/04/18 05:00 Sodium Level 135 mmol/L (136-145) Potassium Level 4.7 mmol/L (3.5-5.1) Chloride Level 98 mmol/L (98-107) Carbon Dioxide Level 25 mmol/L (21-32) Anion Gap 12 (6-14) Blood Urea Nitrogen 55 mg/dL (8-26) Creatinine 6.4 mg/dL (0.7-1.3) Estimated GFR (Cockcroft-Gault) 9.2 Glucose Level 148 mg/dL (70-99) Calcium Level 7.6 mg/dL (8.5-10.1) Phosphorus Level 4.2 mg/dL (2.6-4.7) Albumin 2.0 g/dL (3.4-5.0) Problem List Problems Medical Problems: (1) Acute renal failure Status: Acute Assessment/Plan now with TF infusing no surgical plans gi following available as needed INDIGO BELTRAN APRN September 04, 2018 11:19
--- NOTE | 2018-09-04 11:22 | PDOC ---
PULMONARY PROGRESS NOTES Subjective intubated 08/31, ON AC MODE SEDATED HIGH GRADE FEVER Vitals Vital Signs Date Time Temp Pulse Resp B/P (MAP) Pulse Ox O2 Delivery O2 Flow Rate FiO2 09/04/18 10:00 84 16 133/68 (89) 98 Ventilator 09/04/18 08:00 102.0 102.0 09/04/18 06:08 15.0 Lungs: Crackles Cardiovascular: S1, S2 Abdomen: Soft, Non-tender, Other (no mass) Extremities: No Edema Skin: Warm Labs Laboratory Tests Test 09/03/18 05:45 09/03/18 08:30 09/04/18 05:00 White Blood Count 7.9 x10^3/uL (4.0-11.0) Red Blood Count 2.62 x10^6/uL (4.30-5.70) Hemoglobin 7.6 g/dL (13.0-17.5) Hematocrit 22.6 % (39.0-53.0) Mean Corpuscular Volume 86 fL (79-100) Mean Corpuscular Hemoglobin 29 pg (25-35) Mean Corpuscular Hemoglobin Concent 34 g/dL (31-37) Red Cell Distribution Width 17.5 % (11.5-14.5) Platelet Count 139 x10^3/uL (140-400) Neutrophils (%) (Auto) 41 % (31-73) Lymphocytes (%) (Auto) 35 % (24-48) Monocytes (%) (Auto) 20 % (0-9) Eosinophils (%) (Auto) 3 % (0-3) Basophils (%) (Auto) 1 % (0-3) Neutrophils # (Auto) 3.3 x10^3uL (1.8-7.7) Lymphocytes # (Auto) 2.8 x10^3/uL (1.0-4.8) Monocytes # (Auto) 1.5 x10^3/uL (0.0-1.1) Eosinophils # (Auto) 0.3 x10^3/uL (0.0-0.7) Basophils # (Auto) 0.1 x10^3/uL (0.0-0.2) Sodium Level 135 mmol/L (136-145) 135 mmol/L (136-145) Potassium Level 5.2 mmol/L (3.5-5.1) 4.7 mmol/L (3.5-5.1) Chloride Level 100 mmol/L (98-107) 98 mmol/L (98-107) Carbon Dioxide Level 20 mmol/L (21-32) 25 mmol/L (21-32) Anion Gap 15 (6-14) 12 (6-14) Blood Urea Nitrogen 98 mg/dL (8-26) 55 mg/dL (8-26) Creatinine 10.7 mg/dL (0.7-1.3) 6.4 mg/dL (0.7-1.3) Estimated GFR (Cockcroft-Gault) 5.1 9.2 Glucose Level 179 mg/dL (70-99) 148 mg/dL (70-99) Calcium Level 7.8 mg/dL (8.5-10.1) 7.6 mg/dL (8.5-10.1) Phosphorus Level 5.8 mg/dL (2.6-4.7) 4.2 mg/dL (2.6-4.7) Albumin 2.1 g/dL (3.4-5.0) 2.0 g/dL (3.4-5.0) Treponema pallidum Antibody Nonreactive (Nonreactive) O2 Saturation 97 % (92-99) Arterial Blood pH 7.31 (7.35-7.45) Arterial Blood pCO2 at Patient Temp 35 mmHg (35-46) Arterial Blood pO2 at Patient Temp 125 mmHg (75-108) Arterial Blood HCO3 17 mmol/L (21-28) Arterial Blood Base Excess -8 mmol/L (-3-3) FiO2 97 Laboratory Tests Test 09/04/18 05:00 Sodium Level 135 mmol/L (136-145) Potassium Level 4.7 mmol/L (3.5-5.1) Chloride Level 98 mmol/L (98-107) Carbon Dioxide Level 25 mmol/L (21-32) Anion Gap 12 (6-14) Blood Urea Nitrogen 55 mg/dL (8-26) Creatinine 6.4 mg/dL (0.7-1.3) Estimated GFR (Cockcroft-Gault) 9.2 Glucose Level 148 mg/dL (70-99) Calcium Level 7.6 mg/dL (8.5-10.1) Phosphorus Level 4.2 mg/dL (2.6-4.7) Albumin 2.0 g/dL (3.4-5.0) Medications Active Scripts Medications Dose Route/Sig Max Daily Dose Days Date Category Prednisone 20 Mg Tablet 1 Tab PO DAILY 08/26/18 Reported Hydrochlorothiazide Tablet (Hydrochlorothiazide) 12.5 Mg Tablet 12.5 Mg PO DAILY 08/26/18 Reported Shilpi Allergy (Fexofenadine Hcl) 180 Mg Tablet 1 Tab PO DAILY 08/26/18 Reported Potassium Chloride 20 Meq Tablet.er 20 Meq PO DAILY 08/24/18 Rx Orphenadrine Citrate 100 Mg Tablet.er 100 Mg PO Q12HR 02/03/16 Rx Anaprox Ds (Naproxen Sodium) 550 Mg Tablet 550 Mg PO Q12HR 02/03/16 Rx Comments CXR REVIEWED 09/02 Impression . IMPRESSION: 1. Acute hypoxemic respiratory failure, multifactorial due to encephalopathy from suspected DIGITAL IMAGER infection/ acute lung injury from recent infection. 2. Tick-born illness suspected w/u negative for ehrlichia ,RMSF Ehrlichiae Ab neg RMSF neg, though need convalescent serology ,[place] IgG +, IgM neg, old exposure, HSV PCR neg, Arboviral panel not available, Enteroviral pcr not available 3. Fever. 4. Lactic acidosis. 5. Acute renal failure. 6. Acute hepatic injury. 7. Thrombocytopenia, improving. 8. Hemochromatosis. 9. ACUTE TOXIC MET ENCEPH POA 10 DYSPHAGIA 11.ENCEPHALITIS Plan . AC MODE FOR SUPPORT ABG ADEQUATE BICARB PRN ANTIBX PER ID NUTRION PER TPN PT WITH ILEUS fu sputum cx difficult intubation, need upper airway test bf sbt when ready D/W RN, NOT READY FOR WEAN until encephalopathy resolves f/u cxr d/w family cct 30 min DYANA BERRY MD September 04, 2018 11:22
--- NOTE | 2018-09-04 14:37 | NUR ---
PICC PRE INSERTION NOTE Allergies and reactions ASPIRIN, PENTAZOCINE INR 1.1 BUN 55 Cr 6.4 Platelets 139 Blood culture done YES blood culture results NO GROWTH Order Verified YES Consent signed YES Previous PICC placement NO Past Medical/Surgical history and current diagnosis reviewed YES Patient Medical /Surgical History Related to PICC line placement HIStory of acute/chronic renal failure Infectious Disease consult PAST CENTRAL LINE Special considerations for PICC line placement None PICC placement indication Caustic medication class drug usage, jail antibiotic usage, Multiple/ Frequent blood draws, Total Parenteral Nutrition (TPN) name of PICC Nurse BRENNON ROCHA RN Addendum: 09/04/18 at 1548 by BRENNON ROCHA RN Amended: Links added.
--- NOTE | 2018-09-04 15:29 | NUR ---
PICC INSERTION NOTE Procedure: Following complete explanation of the PICC procedure including the indications, risks, and potential complications, informed consent was obtained. The possibility for infection was discussed along with signs, symptoms, and prevention. All the questions were answered. Written and verbal patient education was provided. Hand hygiene performed. Standardized central line checklist was utilized. The patient was placed in the supine position, the arm was prepped with chlorhexidine and patient draped with maximum sterile barrier. 3 mL 1% lidocaine was infiltrated into the skin to provide local anesthesia. A thorough assessment of RIGHT upper extremity completed. Using real-time ultrasound guidance and standardized micro puncture set, the BASILIC vein was punctured and a peel away sheath was placed using the modified Seldinger technique. A tip location device was used to ensure adequate catheter placement. The catheter was secured using a securement device and an antimicrobial patch was applied directly on the insertion site followed by a transparent dressing. All ports withdraw blood and flush without resistance. Patient tolerated the procedure without apparent complication(s). TRIPLE Lumen Power PICC placement successful and uncomplicated. Placement verified by EKG tip confirmation system and/or chest x-ray. Tip located in the CAJ/SVC Complications: NONE CATHETER TRIMED AT 47CM WITH 2CM VISABLE AT INSERTION SITE
--- NOTE | 2018-09-04 15:40 | NUR ---
SS following up with discharge planning. SS phoned and faxed clinical updates to [facility], ; fax [phone]. Pt is accepted and does have insurance authorization. SS will continue to follow for discharge planning.
[2018-09-04 20:09] LABS: FIO2 ABG 35
[2018-09-05] VITALS (24 sets, daily range): BP systolic 133–171; BP diastolic 49–96
[2018-09-05] MEDS: PROPOFOL 100 ML IV PRN ×4 (00:30→12:24)
[2018-09-05] MEDS: PIPERACILLIN/TAZOBACTAM 2.25 GM in IV NORMAL SALINE 50ML 50 ML IV SCH ×4 (00:31→18:04)
[2018-09-05] MEDS: CHLORHEXIDINE 0.12% 15 ML MOUTHWASH. MM SCH ×3 (00:31→22:28)
[2018-09-05] MEDS: LACTOBACILLUS RHAMNOSUS GG 1 CAPSULE. PO SCH ×3 (00:31→22:28)
[2018-09-05 04:14] LABS: HEMATOCRIT 22.8 % (39.0-53.0); HEMOGLOBIN 7.8 g/dL (13.0-17.5); RED BLOOD COUNT 2.65 x10^6/uL (4.30-5.70); RED CELL DISTRIBUTION WIDTH 17.8 % (11.5-14.5); WHITE BLOOD COUNT 7.9 x10^3/uL (4.0-11.0)
[2018-09-05 04:29] LABS: ALBUMIN 2.1 g/dL (3.4-5.0); CALCIUM 7.8 mg/dL (8.5-10.1); CREATININE 6.4 mg/dL (0.7-1.3); GFR 9.2; PHOSPHORUS 5.2 mg/dL (2.6-4.7); POTASSIUM 5.1 mmol/L (3.5-5.1)
--- NOTE | 2018-09-05 07:47 | RAD ---
Portable chest, 09/05/2018: HISTORY: Patient on ventilator Comparison is made to a study from 09/02/2018. The ET tube tip lies well above the melissa. An NG tube extends into the stomach. A right jugular dialysis catheter extends into the inferior aspect of the superior vena cava. A right PICC has been inserted extending into the right atrium. The heart is at the upper limits of normal in size. The vascular margins are less well-defined. There are basilar opacities, left greater than right, suggesting a combination of pleural fluid and underlying atelectasis/infiltrate. The left hemidiaphragm is now obscured. There is no evidence of pneumothorax. IMPRESSION: 1. The ET tube, right jugular dialysis type catheter and NG tube remain in place in satisfactory positions. 2. A new right PICC extends into the right atrium. 3. Mild vascular congestion. 4. Worsening basilar opacities, greatest on the left, compatible with pleural fluid and underlying atelectasis/infiltrate. Electronically signed by: Jose Hudson MD (09/05/2018 7:44 AM) [facility]
--- NOTE | 2018-09-05 07:58 | PDOC ---
Infectious Disease Note Subjective: Subjective intubated ,sedated T max 101 afebrile this am RT IJ removed Midline in LUE D/W RN ROS: ROS unable to obtain as intubated Vital Signs: Vital Signs Vital Signs Date Time Temp Pulse Resp B/P (MAP) Pulse Ox O2 Delivery O2 Flow Rate FiO2 09/05/18 06:00 82 18 144/75 (98) 99 Ventilator 09/05/18 04:21 15.0 09/05/18 04:00 99.0 99.0 Physical Exam: PHYSICAL EXAM GENERAL:sedated on vent HEENT: Pupils equally round, reactive. No conjunctivae petechia. ETT + NECK: Supple.HDC ,looks ok LUNGS: dec bs at bases HEART: S1 and S2. ABDOMEN: Obese, soft, nontender with bowel sounds present. rose in place ,minimal urine output EXTREMITIES:no edema,no cyanosis. SKIN: Warm without rash. Left knee has several scabs/scarring.healing NEUROLOGIC: sedated on vent LUE midline looks ok Medications: Inpatient Meds: Current Medications Medications (Trade) Dose Ordered Sig/Noemi Start Time Stop Time Status Last Admin Dose Admin Acetaminophen (Tylenol Supp) 650 mg PRN Q6HRS PRN 08/27/18 21:15 09/02/18 01:18 650 MG Acetaminophen (Tylenol) 650 mg PRN Q6HRS PRN 08/27/18 21:15 Acyclovir Sodium 340 mg/Dextrose 106.8 ml @ 106.8 mls/ hr Q12HR 08/30/18 09:00 09/01/18 13:37 DC 09/01/18 11:05 106.8 MLS/HR Albumin Human 200 ml @ 200 mls/hr 1X PRN PRN 09/04/18 08:30 09/04/18 14:29 DC Albuterol/ Ipratropium (Duoneb) 3 ml 1X ONCE 09/01/18 01:00 09/01/18 01:01 DC 09/01/18 01:10 3 ML Atropine Sulfate (ATROPINE 0.5mg SYRINGE) 0.5 mg STK-MED ONCE 08/31/18 08:06 09/04/18 08:07 DC Atropine Sulfate (ATROPINE 1mg SYRINGE) 1 mg STK-MED ONCE 08/31/18 22:58 08/31/18 22:59 DC Aztreonam (Azactam) 2 gm 1X ONCE 08/25/18 21:15 08/25/18 21:16 DC 08/25/18 21:15 2 GM Benzocaine (Hurricaine One) 1 spray 1X STAT 08/28/18 10:16 08/28/18 10:19 DC 08/28/18 10:16 1 SPRAY Ceftriaxone Sodium (Rocephin) 1 gm 1X ONCE 08/25/18 20:30 08/25/18 20:31 DC 08/25/18 20:36 1 GM Chlorhexidine Gluconate (Peridex) 15 ml BID 09/01/18 09:00 09/05/18 00:31 15 ML Daptomycin 610 mg/ Sodium Chloride 50 ml @ 100 mls/hr Q48H 08/30/18 16:00 08/30/18 16:00 DC Darbepoetin Phil (Aranesp) 100 mcg WEEKLYHS 09/03/18 21:00 09/03/18 22:11 100 MCG Doxycycline Hyclate 100 mg/ Dextrose 100 ml @ 50 mls/hr Q12HR 08/26/18 09:00 09/04/18 08:11 DC 09/03/18 22:11 50 MLS/HR Epinephrine HCl (EPINEPHrine SYRINGE) 3 mg STK-MED ONCE 08/31/18 08:06 09/04/18 08:07 DC Famotidine (Pepcid Vial) 20 mg Q48H 09/03/18 21:00 09/03/18 22:11 20 MG Famotidine (Pepcid) 20 mg Q48H 08/29/18 09:00 08/29/18 11:29 DC Fentanyl Citrate 30 ml @ 0 mls/hr CONT PRN 09/01/18 00:00 09/05/18 04:21 1.25 MLS/HR Fentanyl Citrate (Fentanyl 2ml Vial) 50 mcg PRN Q4HRS PRN 08/28/18 15:30 09/05/18 02:11 DC 08/28/18 21:44 50 MCG Haloperidol (Haldol) 2 mg PRN QID PRN 08/31/18 08:00 08/31/18 12:43 DC Haloperidol Lactate (HALDOL 2mg ORAL CONC) 2 mg PRN QID PRN 08/31/18 12:43 Haloperidol Lactate (Haldol Inj) 5 mg PRN Q6HRS PRN 08/28/18 12:00 08/29/18 20:31 5 MG Heparin Sodium (Porcine) (Heparin Sodium) 10,000 unit STK-MED ONCE 08/26/18 12:49 08/26/18 12:50 DC Ibuprofen (Motrin) 600 mg 1X ONCE 08/25/18 19:45 08/25/18 19:49 DC 08/25/18 20:38 600 MG Info (PHARMACY MONITORING -- do not chart) 1 each PRN DAILY PRN 09/04/18 08:30 UNV Info (Tpn Per Pharmacy) 1 each PRN DAILY PRN 08/30/18 12:45 09/04/18 12:50 DC 09/03/18 10:53 1 EACH Lactobacillus Rhamnosus (Culturelle) 1 cap BID 08/26/18 21:00 09/05/18 00:31 1 CAP Levofloxacin/ Dextrose 150 ml @ 100 mls/hr QODAY 09/04/18 09:00 09/04/18 08:46 100 MLS/HR Lidocaine HCl (Glydo (Lidocaine) Jelly) 1 meng 1X STAT 08/28/18 10:16 08/28/18 10:19 DC 08/28/18 10:16 1 MENG Lidocaine/Sodium Bicarbonate (Buffered Lidocaine 1%) 3 ml 1X ONCE 08/28/18 10:30 08/28/18 10:31 DC Magnesium Sulfate 50 ml @ 25 mls/hr 1X ONCE 08/25/18 21:15 08/25/18 23:14 DC 08/25/18 23:51 25 MLS/HR Meropenem 500 mg/ Sodium Chloride 50 ml @ 100 mls/hr DAILY 08/26/18 09:00 08/30/18 08:17 DC 08/29/18 10:13 100 MLS/HR Midazolam HCl 100 ml @ 0 mls/hr CONT PRN 09/01/18 00:00 Norepinephrine Bitartrate 250 ml @ 0 mls/hr CONT PRN 08/26/18 09:15 08/30/18 17:20 DC 08/27/18 10:21 1.88 MLS/HR Ondansetron HCl (Zofran) 4 mg PRN Q6HRS PRN 08/31/18 08:00 Piperacillin Sod/ Tazobactam Sod 2.25 gm/Sodium Chloride 50 ml @ 100 mls/hr Q6HRS 09/01/18 14:00 09/05/18 05:58 100 MLS/HR Piperacillin Sod/ Tazobactam Sod 4.5 gm/Sodium Chloride 100 ml @ 200 mls/hr 1X ONCE 08/25/18 21:15 08/25/18 21:44 DC Propofol 100 ml @ 0 mls/hr CONT PRN 09/01/18 00:00 09/05/18 04:18 23.315 MLS/HR Sodium Bicarbonate (Sodium Bicarb Adult 8.4% Syr) 100 meq STK-MED ONCE 08/31/18 08:06 09/04/18 08:07 DC Sodium Chloride 1,000 ml @ 400 mls/hr Q2H30M PRN 09/04/18 08:23 09/04/18 20:22 DC Sodium Chloride (Normal Saline Flush) 10 ml 1X PRN PRN 09/03/18 10:00 09/03/18 21:00 DC Sodium Chloride 90 meq/Potassium Chloride 50 meq/ Potassium Phosphate 10 mmol/ Calcium Gluconate 10 meq/ Multivitamins 10 ml/Chromium/ Copper/Manganese/ Seleni/Zn 1 ml/ Total Parenteral Nutrition/Amino Acids/Dextrose 1,512 ml @ 63 mls/hr TPN CONT 09/01/18 22:00 09/02/18 21:59 DC 09/01/18 22:11 63 MLS/HR Sodium Chloride 90 meq/Potassium Chloride 50 meq/ Potassium Phosphate 3 mmol/ Magnesium Sulfate 10 meq/Calcium Gluconate 10 meq/ Multivitamins 10 ml/Chromium/ Copper/Manganese/ Seleni/Zn 1 ml/ Total Parenteral Nutrition/Amino Acids/Dextrose/ Fat Emulsion Intravenous 1,512 ml @ 63 mls/hr TPN CONT 08/30/18 22:00 08/31/18 21:59 DC 08/30/18 21:40 63 MLS/HR Sodium Chloride 90 meq/Potassium Chloride 50 meq/ Potassium Phosphate 5 mmol/ Magnesium Sulfate 3 meq/Calcium Gluconate 10 meq/ Multivitamins 10 ml/Chromium/ Copper/Manganese/ Seleni/Zn 1 ml/ Total Parenteral Nutrition/Amino Acids/Dextrose 1,512 ml @ 63 mls/hr TPN CONT 08/31/18 22:00 09/01/18 21:59 DC 08/31/18 20:59 63 MLS/HR Sodium Chloride 110 meq/Potassium Chloride 50 meq/ Potassium Phosphate 10 mmol/ Calcium Gluconate 10 meq/ Multivitamins 10 ml/Chromium/ Copper/Manganese/ Seleni/Zn 1 ml/ Magnesium Sulfate 3 meq/Total Parenteral Nutrition/Amino Acids/Dextrose 1,512 ml @ 63 mls/hr TPN CONT 09/02/18 22:00 09/03/18 21:59 DC 09/02/18 22:13 63 MLS/HR Sodium Chloride 130 meq/Potassium Acetate 20 meq/ Calcium Gluconate 10 meq/ Multivitamins 10 ml/Chromium/ Copper/Manganese/ Seleni/Zn 1 ml/ Magnesium Sulfate 3 meq/Total Parenteral Nutrition/Amino Acids/Dextrose 1,512 ml @ 63 mls/hr TPN CONT 09/03/18 22:00 09/04/18 21:59 DC 09/03/18 22:12 63 MLS/HR Succinylcholine Chloride (Anectine) 200 mg 1X ONCE 09/01/18 01:15 09/01/18 01:16 DC 08/31/18 23:04 200 MG Vancomycin HCl 2 gm/Sodium Chloride 500 ml @ 250 mls/hr 1X ONCE 08/25/18 21:30 08/25/18 23:29 DC 08/25/18 23:10 250 MLS/HR Labs: Lab Laboratory Tests Test 09/04/18 08:55 09/05/18 03:45 O2 Saturation 96 % (92-99) Arterial Blood pH 7.45 (7.35-7.45) Arterial Blood pCO2 at Patient Temp 33 mmHg (35-46) Arterial Blood pO2 at Patient Temp 96 mmHg (75-108) Arterial Blood HCO3 23 mmol/L (21-28) Arterial Blood Base Excess -1 mmol/L (-3-3) FiO2 35 White Blood Count 7.9 x10^3/uL (4.0-11.0) Red Blood Count 2.65 x10^6/uL (4.30-5.70) Hemoglobin 7.8 g/dL (13.0-17.5) Hematocrit 22.8 % (39.0-53.0) Mean Corpuscular Volume 86 fL (79-100) Mean Corpuscular Hemoglobin 29 pg (25-35) Mean Corpuscular Hemoglobin Concent 34 g/dL (31-37) Red Cell Distribution Width 17.8 % (11.5-14.5) Platelet Count 182 x10^3/uL (140-400) Sodium Level 136 mmol/L (136-145) Potassium Level 5.1 mmol/L (3.5-5.1) Chloride Level 99 mmol/L (98-107) Carbon Dioxide Level 24 mmol/L (21-32) Anion Gap 13 (6-14) Blood Urea Nitrogen 56 mg/dL (8-26) Creatinine 6.4 mg/dL (0.7-1.3) Estimated GFR (Cockcroft-Gault) 9.2 Glucose Level 122 mg/dL (70-99) Calcium Level 7.8 mg/dL (8.5-10.1) Phosphorus Level 5.2 mg/dL (2.6-4.7) Albumin 2.1 g/dL (3.4-5.0) Objective: Assessment: Tick-born illness suspected w/u negative for ehrlichia RMSF neg, though need convalescent serology [place] IgG +, IgM neg, old exposure HSV PCR neg Arboviral panel not available Enteroviral pcr not available Lactic acidosis Bandemia resolved leucocytosis resolved Acute hepatic injury requiring HD RADHA (Recent Bactrim/ibuprofen) Thrombocytopenia resolved Hemochromatosis, followed by [facility] Diarrhea, resolved Dermatitis RLE improved encephalopathy waxing and waning etiology unclear MRI neg CSF pleocytosis ,cultures and serologies negative FOB positive Febrile again Concern for RAFI vs noninfectious etiologies Rt IJ removed 09/04 Plan: Plan of Care cont levaquin , zosyn add linezolid f/u repeat cults and labs in am sputum cults D/w D/w nursing JEFF PARKER MD September 05, 2018 07:58
--- NOTE | 2018-09-05 08:10 | PDOC ---
PROGRESS NOTES Chief Complaint Chief Complaint Sepsis Encephalopathy Encephalitis of undetermined etiology Respiratory failure Probable tick-borne illness, suspected. with h/o tick bite 3 weeks ago at [place] Lactic acidosis. Fever. Bandemia. Acute hepatic injury Acute kidney injury. Thrombocytopenia. Hemochromatosis. LLE dermatitis improving, ? poison [place],resolving with local treatment History of Present Illness History of Present Illness Mr Kirk is a 52-year-old male with a past medical history of hemochromatosis who is pretty healthy otherwise and very active. About 3 weeks ago, he was at [employer] [facility] [employer] [place] and found a tick embedded on the back of his right thigh. He pulled it out and thought nothing of it. The next day, he was cleaning up a yard with a few other persons from [employer]. He recalls kneeling down on his left knee pulling wheat. A few days later, he developed an itchy red blistering rash on his left knee that improved with [id number] ivory rest. He then developed a different type of rash that was itchy, splotchy and red on the inner aspect of both arms. He was seen by his doctor and prescribed Bactrim for infection. 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 About a week later, on Friday 08/18, he went to a men's breakfast and a [employer] meeting. Afterwards, he felt unusually tired. Over the following 24 hours, he did not feel well. He developed fever, chills, joint pains and muscle aches. He alternated taking ibuprofen and Tylenol without relief. He was seen at urgent care center and prescribed prednisone for upper respiratory infection. Unfortunately, he felt worse. He lost his appetite and was not drinking much and was urinating less. His said he was sleeping more, moaned, seemed lethargic and confused, prompting the ER visit. On arrival to the ER, he had a temperature of 100.3, respiratory rate 28. Laboratory values returned abnormal with a WBC count 6.2, segs 68%, bands 24%, platelets 17,000. Lactic acid was 5.1. Sed rate 11. He had elevated LFTs and acute kidney injury. Cultures were ordered. He was dosed with vancomycin, ceftriaxone and aztreonam in the ER. ID adjusted his antibiotics to daptomycin, meropenem and doxycycline. He was feeling improved, then on 08/28/2018 continued to worsen, was started on dialysis, required increasing O2 and was placed on BIPAP and ultimately intubated on 08/31/2018. Serology for HIV, HSV, [place] Common spotted fever and Ehrlichia all thus negative. Had LP on 08/29/18 with increased protein. His spouse notes no recent travel, last time he was out of the country was [facility] in 2003. 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 He struggled with infidelity over the last year and over the weekend had HIV testing consent per , this was negative as well as syphilis testing. Patient seen and examined in the ICU. is bedside today. Patient is on the v ent assist / with 40% and 5 of PEEP. He is extremely ill, Hb <8 today. DIC panel pending. Type and screen, will only transfuse per hematology and nephrology. Still with fevers despite broadened coverage with ID yesterday. Have d/w ID to broaden coverage further. He remains guardedly critically ill CC 38 minutes today Vitals Vitals Vital Signs Date Time Temp Pulse Resp B/P (MAP) Pulse Ox O2 Delivery O2 Flow Rate FiO2 09/05/18 06:00 82 18 144/75 (98) 99 Ventilator 09/05/18 04:51 15.0 09/05/18 04:00 99.0 99.0 Physical Exam Physical Exam GENERAL:sedated on vent HEENT: Pupils equally round, reactive. No conjunctivae petechia. ETT + NECK: Supple.HDC and Rt IJ in place LUNGS: dec bs at bases HEART: S1 and S2. ABDOMEN: Obese, soft, nontender with bowel sounds present. rose in place ,minimal urine output EXTREMITIES:no edema,no cyanosis. SKIN: Warm without rash. Left knee has several scabs/scarring.healing NEUROLOGIC: sedated on vent General: Other (vent support) Heart: Normal S1, Normal S2 Lungs: Crackles Abdomen: Soft, Other (TF infusing) Extremities: No clubbing, No cyanosis, No edema Skin: No significant lesion, Other (healing rash and excoriations on Left lower extremity. No obvious petechiae) Labs LABS Laboratory Tests Test 09/04/18 08:55 09/05/18 03:45 O2 Saturation 96 % (92-99) Arterial Blood pH 7.45 (7.35-7.45) Arterial Blood pCO2 at Patient Temp 33 mmHg (35-46) Arterial Blood pO2 at Patient Temp 96 mmHg (75-108) Arterial Blood HCO3 23 mmol/L (21-28) Arterial Blood Base Excess -1 mmol/L (-3-3) FiO2 35 White Blood Count 7.9 x10^3/uL (4.0-11.0) Red Blood Count 2.65 x10^6/uL (4.30-5.70) Hemoglobin 7.8 g/dL (13.0-17.5) Hematocrit 22.8 % (39.0-53.0) Mean Corpuscular Volume 86 fL (79-100) Mean Corpuscular Hemoglobin 29 pg (25-35) Mean Corpuscular Hemoglobin Concent 34 g/dL (31-37) Red Cell Distribution Width 17.8 % (11.5-14.5) Platelet Count 182 x10^3/uL (140-400) Sodium Level 136 mmol/L (136-145) Potassium Level 5.1 mmol/L (3.5-5.1) Chloride Level 99 mmol/L (98-107) Carbon Dioxide Level 24 mmol/L (21-32) Anion Gap 13 (6-14) Blood Urea Nitrogen 56 mg/dL (8-26) Creatinine 6.4 mg/dL (0.7-1.3) Estimated GFR (Cockcroft-Gault) 9.2 Glucose Level 122 mg/dL (70-99) Calcium Level 7.8 mg/dL (8.5-10.1) Phosphorus Level 5.2 mg/dL (2.6-4.7) Albumin 2.1 g/dL (3.4-5.0) Assessment and Plan Assessmemt and Plan Problems Medical Problems: (1) Acute renal failure Status: Acute Comment Review of Relevant I have reviewed the following items gera (where applicable) has been applied. Labs Laboratory Tests Test 09/03/18 08:30 09/04/18 05:00 09/04/18 08:55 09/05/18 03:45 O2 Saturation 97 % (92-99) 96 % (92-99) Arterial Blood pH 7.31 (7.35-7.45) 7.45 (7.35-7.45) Arterial Blood pCO2 at Patient Temp 35 mmHg (35-46) 33 mmHg (35-46) Arterial Blood pO2 at Patient Temp 125 mmHg (75-108) 96 mmHg (75-108) Arterial Blood HCO3 17 mmol/L (21-28) 23 mmol/L (21-28) Arterial Blood Base Excess -8 mmol/L (-3-3) -1 mmol/L (-3-3) FiO2 97 35 Sodium Level 135 mmol/L (136-145) 136 mmol/L (136-145) Potassium Level 4.7 mmol/L (3.5-5.1) 5.1 mmol/L (3.5-5.1) Chloride Level 98 mmol/L (98-107) 99 mmol/L (98-107) Carbon Dioxide Level 25 mmol/L (21-32) 24 mmol/L (21-32) Anion Gap 12 (6-14) 13 (6-14) Blood Urea Nitrogen 55 mg/dL (8-26) 56 mg/dL (8-26) Creatinine 6.4 mg/dL (0.7-1.3) 6.4 mg/dL (0.7-1.3) Estimated GFR (Cockcroft-Gault) 9.2 9.2 Glucose Level 148 mg/dL (70-99) 122 mg/dL (70-99) Calcium Level 7.6 mg/dL (8.5-10.1) 7.8 mg/dL (8.5-10.1) Phosphorus Level 4.2 mg/dL (2.6-4.7) 5.2 mg/dL (2.6-4.7) Albumin 2.0 g/dL (3.4-5.0) 2.1 g/dL (3.4-5.0) White Blood Count 7.9 x10^3/uL (4.0-11.0) Red Blood Count 2.65 x10^6/uL (4.30-5.70) Hemoglobin 7.8 g/dL (13.0-17.5) Hematocrit 22.8 % (39.0-53.0) Mean Corpuscular Volume 86 fL (79-100) Mean Corpuscular Hemoglobin 29 pg (25-35) Mean Corpuscular Hemoglobin Concent 34 g/dL (31-37) Red Cell Distribution Width 17.8 % (11.5-14.5) Platelet Count 182 x10^3/uL (140-400) Laboratory Tests Test 09/04/18 08:55 09/05/18 03:45 O2 Saturation 96 % (92-99) Arterial Blood pH 7.45 (7.35-7.45) Arterial Blood pCO2 at Patient Temp 33 mmHg (35-46) Arterial Blood pO2 at Patient Temp 96 mmHg (75-108) Arterial Blood HCO3 23 mmol/L (21-28) Arterial Blood Base Excess -1 mmol/L (-3-3) FiO2 35 White Blood Count 7.9 x10^3/uL (4.0-11.0) Red Blood Count 2.65 x10^6/uL (4.30-5.70) Hemoglobin 7.8 g/dL (13.0-17.5) Hematocrit 22.8 % (39.0-53.0) Mean Corpuscular Volume 86 fL (79-100) Mean Corpuscular Hemoglobin 29 pg (25-35) Mean Corpuscular Hemoglobin Concent 34 g/dL (31-37) Red Cell Distribution Width 17.8 % (11.5-14.5) Platelet Count 182 x10^3/uL (140-400) Sodium Level 136 mmol/L (136-145) Potassium Level 5.1 mmol/L (3.5-5.1) Chloride Level 99 mmol/L (98-107) Carbon Dioxide Level 24 mmol/L (21-32) Anion Gap 13 (6-14) Blood Urea Nitrogen 56 mg/dL (8-26) Creatinine 6.4 mg/dL (0.7-1.3) Estimated GFR (Cockcroft-Gault) 9.2 Glucose Level 122 mg/dL (70-99) Calcium Level 7.8 mg/dL (8.5-10.1) Phosphorus Level 5.2 mg/dL (2.6-4.7) Albumin 2.1 g/dL (3.4-5.0) Microbiology 09/02/18 Blood Culture - Preliminary, Resulted NO GROWTH AFTER 3 DAYS 08/29/18 CSF Gram Stain - Final, Complete 08/27/18 Stool Culture - Final, Complete 08/27/18 Stool Culture Result 1 (LOTUS) - Final, Complete 08/27/18 Campylobacter Antigen Assay - Final, Complete 08/27/18 Campylobactor Result 1 - Final, Complete 08/27/18 Shiga Toxin Test - Final, Complete 09/01/18 - Final, Resulted 09/01/18 - Final, Resulted 09/01/18 - Final, Resulted 09/01/18 Gram Stain Evaluation - Final, Resulted 09/01/18 Sputum Culture, Resulted Pending Medications Current Medications Sodium Chloride 1,000 ml @ 1,000 mls/hr 1X ONCE IV Last administered on 08/25/18at 20:38; Start 08/25/18 at 19:15; Stop 08/25/18 at 20:14; Status DC Ibuprofen (Motrin) 600 mg 1X ONCE PO Last administered on 08/25/18at 20:38; Start 08/25/18 at 19:45; Stop 08/25/18 at 19:49; Status DC Sodium Chloride 1,000 ml @ 1,000 mls/hr 1X ONCE IV Last administered on 08/25/18at 20:30; Start 08/25/18 at 20:30; Stop 08/25/18 at 21:29; Status DC Ceftriaxone Sodium (Rocephin) 1 gm 1X ONCE IVP Last administered on 08/25/18at 20:36; Start 08/25/18 at 20:30; Stop 08/25/18 at 20:31; Status DC Vancomycin HCl 2 gm/Sodium Chloride 500 ml @ 250 mls/hr 1X ONCE IV Last administered on 08/25/18at 23:10; Start 08/25/18 at 21:30; Stop 08/25/18 at 23:29; Status DC Sodium Chloride 1,000 ml @ 1,000 mls/hr 1X ONCE IV Last administered on 08/25/18at 23:51; Start 08/25/18 at 21:00; Stop 08/25/18 at 21:59; Status DC Piperacillin Sod/ Tazobactam Sod 4.5 gm/Sodium Chloride 100 ml @ 200 mls/hr 1X ONCE IV ; Start 08/25/18 at 21:15; Stop 08/25/18 at 21:44; Status DC Aztreonam (Azactam) 2 gm 1X ONCE IVP Last administered on 08/25/18at 21:15; S tart 08/25/18 at 21:15; Stop 08/25/18 at 21:16; Status DC Magnesium Sulfate 50 ml @ 25 mls/hr 1X ONCE IV Last administered on 08/25/18at 23:51; Start 08/25/18 at 21:15; Stop 08/25/18 at 23:14; Status DC Ondansetron HCl (Zofran) 4 mg PRN Q8HRS PRN IV NAUSEA/VOMITING; Start 08/25/18 at 21:15; Stop 08/26/18 at 21:14; Status DC Acetaminophen (Tylenol) 650 mg PRN Q4HRS PRN PO FEVER; Start 08/25/18 at 21:15; Stop 08/26/18 at 21:14; Status DC Sodium Chloride 1,000 ml @ 125 mls/hr 1X ONCE IV Last administered on 08/25/18at 23:09; Start 08/25/18 at 21:15; Stop 08/26/18 at 05:14; Status DC Daptomycin 610 mg/ Sodium Chloride 50 ml @ 100 mls/hr QODAY IV Last administered on 08/27/18at 08:59; Start 08/27/18 at 09:00; Stop 08/28/18 at 15:40; Status DC Meropenem 500 mg/ Sodium Chloride 50 ml @ 100 mls/hr 1X ONCE IV Last administered on 08/25/18at 22:12; Start 08/25/18 at 22:00; Stop 08/25/18 at 22:29; Status DC Doxycycline Hyclate 100 mg/ Dextrose 100 ml @ 50 mls/hr Q12HR IV Last administered on 09/03/18at 22:11; Start 08/26/18 at 09:00; Stop 09/04/18 at 08:11; Status DC Meropenem 500 mg/ Sodium Chloride 50 ml @ 100 mls/hr DAILY IV Last administered on 08/29/18at 10:13; Start 08/26/18 at 09:00; Stop 08/30/18 at 08:17; Status DC Sodium Chloride (Normal Saline Flush) 10 ml QSHIFT PRN IV AFTER MEDS AND BLOOD DRAWS; Start 08/26/18 at 09:15 Norepinephrine Bitartrate 250 ml @ 0 mls/hr CONT PRN IV PER PROTOCOL Last administered on 08/27/18at 10:21; Start 08/26/18 at 09:15; Stop 08/30/18 at 17:20; Status DC Famotidine (Pepcid) 20 mg DAILY PO Last administered on 08/27/18at 08:14; Start 08/26/18 at 12:00; Stop 08/27/18 at 14:36; Status DC Sodium Chloride 1,000 ml @ 1,000 mls/hr Q1H PRN IV hypotension; Start 08/26/18 at 11:51; Stop 08/26/18 at 17:50; Status DC Sodium Chloride (Normal Saline Flush) 10 ml 1X PRN PRN IV AP catheter pack; Start 08/26/18 at 12:00; Stop 08/27/18 at 11:59; Status DC Sodium Chloride (Normal Saline Flush) 10 ml 1X PRN PRN IV [employer] catheter pack; Start 08/26/18 at 12:00; Stop 08/27/18 at 11:59; Status DC Sodium Chloride 1,000 ml @ 400 mls/hr Q2H30M PRN IV PATENCY; Start 08/26/18 at 11:51; Stop 08/26/18 at 23:50; Status DC Info (PHARMACY MONITORING -- do not chart) 1 each PRN DAILY PRN MC SEE COMMENTS; Start 08/26/18 at 12:00; Status UNV Info (PHARMACY MONITORING -- do not chart) 1 each PRN DAILY PRN MC SEE COMMENTS; Start 08/26/18 at 12:00; Stop 09/01/18 at 10:59; Status DC Lidocaine/Sodium Bicarbonate (Buffered Lidocaine 1%) 4 ml 1X ONCE INJ Last administered on 08/26/18at 12:45; Start 08/26/18 at 12:45; Stop 08/26/18 at 12:48; Status DC Heparin Sodium (Porcine) (Heparin Sodium) 2,500 unit 1X ONCE INT CAT Last administered on 08/26/18at 12:45; Start 08/26/18 at 12:45; Stop 08/26/18 at 12:48; Status DC Lidocaine/Sodium Bicarbonate (Buffered Lidocaine 1%) 3 ml STK-MED ONCE .ROUTE ; Start 08/26/18 at 12:49; Stop 08/26/18 at 12:50; Status DC Heparin Sodium (Porcine) (Heparin Sodium) 10,000 unit STK-MED ONCE .ROUTE ; Start 08/26/18 at 12:49; Stop 08/26/18 at 12:50; Status DC Lactobacillus Rhamnosus (Culturelle) 1 cap BID PO Last administered on 09/05/18at 00:31; Start 08/26/18 at 21:00 Acetaminophen (Tylenol) 325 mg STK-MED ONCE PO ; Start 08/27/18 at 00:43; Stop 08/27/18 at 00:44; Status DC Sodium Chloride 1,000 ml @ 1,000 mls/hr 1X ONCE IV Last administered on 08/27/18at 11:05; Start 08/27/18 at 10:30; Stop 08/27/18 at 11:29; Status DC Sodium Chloride 1,000 ml @ 1,000 mls/hr Q1H PRN IV hypotension; Start 08/27/18 at 11:28; Stop 08/27/18 at 17:27; Status DC Albumin Human 200 ml @ 200 mls/hr 1X PRN PRN IV Hypotension; Start 08/27/18 at 11:30; Stop 08/27/18 at 17:29; Status DC Sodium Chloride (Normal Saline Flush) 10 ml 1X PRN PRN IV AP catheter pack; Start 08/27/18 at 11:30; Stop 08/28/18 at 11:29; Status DC Sodium Chloride (Normal Saline Flush) 10 ml 1X PRN PRN IV [employer] catheter pack; Start 08/27/18 at 11:30; Stop 08/28/18 at 11:29; Status DC Sodium Chloride 1,000 ml @ 400 mls/hr Q2H30M PRN IV PATENCY; Start 08/27/18 at 11:28; Stop 08/27/18 at 23:27; Status DC Info (PHARMACY MONITORING -- do not chart) 1 each PRN DAILY PRN MC SEE COMMENTS; Start 08/27/18 at 11:30; Status UNV Info (PHARMACY MONITORING -- do not chart) 1 each PRN DAILY PRN MC SEE COMMENTS; Start 08/27/18 at 11:30; Status UNV Famotidine (Pepcid) 20 mg Q48H PO ; Start 08/29/18 at 09:00; Stop 08/29/18 at 11:29; Status DC Acetaminophen (Tylenol) 650 mg PRN Q6HRS PRN PO pain/fever; Start 08/27/18 at 21:15 Acetaminophen (Tylenol Supp) 650 mg PRN Q6HRS PRN NM MILD PAIN / TEMP Last administered on 09/02/18at 01:18; Start 08/27/18 at 21:15 Fentanyl Citrate (Fentanyl 2ml Vial) 25 mcg 1X ONCE IV Last administered on 08/28/18at 08:54; Start 08/28/18 at 08:45; Stop 08/28/18 at 08:47; Status DC Lidocaine/Sodium Bicarbonate (Buffered Lidocaine 1%) 3 ml STK-MED ONCE .ROUTE ; Start 08/28/18 at 09:55; Stop 08/28/18 at 09:56; Status DC Lidocaine HCl (Glydo (Lidocaine) Jelly) 1 meng 1X STAT MM Last administered on 08/28/18at 10:16; Start 08/28/18 at 10:16; Stop 08/28/18 at 10:19; Status DC Benzocaine (Hurricaine One) 1 spray 1X STAT MM Last administered on 08/28/18at 10:16; Start 08/28/18 at 10:16; Stop 08/28/18 at 10:19; Status DC Lidocaine/Sodium Bicarbonate (Buffered Lidocaine 1%) 3 ml 1X ONCE INJ ; Start 08/28/18 at 10:30; Stop 08/28/18 at 10:31; Status DC Haloperidol Lactate (Haldol Inj) 5 mg PRN Q6HRS PRN IVP AGITATION Last administered on 08/29/18at 20:31; Start 08/28/18 at 12:00 Fentanyl Citrate (Fentanyl 2ml Vial) 50 mcg PRN Q4HRS PRN IV PAIN Last administered on 08/28/18at 21:44; Start 08/28/18 at 15:30; Stop 09/05/18 at 02:11; Status DC Sodium Chloride 1,000 ml @ 1,000 mls/hr Q1H PRN IV hypotension; Start 08/28/18 at 14:00; Stop 08/28/18 at 19:59; Status DC Albumin Human 200 ml @ 200 mls/hr 1X PRN PRN IV Hypotension Last administered on 08/28/18at 14:50; Start 08/28/18 at 14:00; Stop 09/03/18 at 18:17; Status DC Sodium Chloride 1,000 ml @ 400 mls/hr Q2H30M PRN IV PATENCY; Start 08/28/18 at 14:00; Stop 08/29/18 at 01:59; Status DC Info (PHARMACY MONITORING -- do not chart) 1 each PRN DAILY PRN MC SEE COMMENTS ; Start 08/28/18 at 15:30; Status UNV Info (PHARMACY MONITORING -- do not chart) 1 each PRN DAILY PRN MC SEE COMMENTS; Start 08/28/18 at 15:30; Status UNV Daptomycin 610 mg/ Sodium Chloride 50 ml @ 100 mls/hr Q48H IV ; Start 08/30/18 at 16:00; Stop 08/30/18 at 16:00; Status DC Famotidine (Pepcid Vial) 20 mg QHS IVP Last administered on 08/31/18at 20:59; Start 08/29/18 at 21:00; Stop 09/01/18 at 11:00; Status DC Acyclovir Sodium 340 mg/Dextrose 106.8 ml @ 106.8 mls/ hr Q12HR IV Last administered on 09/01/18at 11:05; Start 08/30/18 at 09:00; Stop 09/01/18 at 13:37; Status DC Sodium Chloride 1,000 ml @ 1,000 mls/hr Q1H PRN IV hypotension; Start 08/30/18 at 11:02; Stop 08/30/18 at 17:01; Status DC Sodium Chloride 1,000 ml @ 400 mls/hr Q2H30M PRN IV PATENCY; Start 08/30/18 at 11:02; Stop 08/30/18 at 23:01; Status DC Info (PHARMACY MONITORING -- do not chart) 1 each PRN DAILY PRN MC SEE COMMENTS; Start 08/30/18 at 11:15; Status UNV Info (PHARMACY MONITORING -- do not chart) 1 each PRN DAILY PRN MC SEE COMMENTS; Start 08/30/18 at 11:15; Status UNV Info (Tpn Per Pharmacy) 1 each PRN DAILY PRN MC SEE COMMENTS Last administered on 09/03/18at 10:53; Start 08/30/18 at 12:45; Stop 09/04/18 at 12:50; Status DC Sodium Chloride 90 meq/Potassium Chloride 50 meq/ Potassium Phosphate 3 mmol/ Magnesium Sulfate 10 meq/Calcium Gluconate 10 meq/ Multivitamins 10 ml/Chromium/ Copper/Manganese/ Seleni/Zn 1 ml/ Total Parenteral Nutrition/Amino Acids/Dextrose/ Fat Emulsion Intravenous 1,512 ml @ 63 mls/hr TPN CONT IV Last administered on 08/30/18at 21:40; Start 08/30/18 at 22:00; Stop 08/31/18 at 21:59; Status DC Ondansetron HCl (Zofran) 4 mg PRN Q6HRS PRN IV NAUSEA/VOMITING; Start 08/31/18 at 08:00 Haloperidol (Haldol) 2 mg PRN QID PRN PO AGITATION; Start 08/31/18 at 08:00; Stop 08/31/18 at 12:43; Status DC Haloperidol Lactate (HALDOL 2mg ORAL CONC) 2 mg PRN QID PRN PO AGITATION; Start 08/31/18 at 12:43 Sodium Chloride 90 meq/Potassium Chloride 50 meq/ Potassium Phosphate 5 mmol/ Magnesium Sulfate 3 meq/Calcium Gluconate 10 meq/ Multivitamins 10 ml/Chromium/ Copper/Manganese/ Seleni/Zn 1 ml/ Total Parenteral Nutrition/Amino Acids/Dextrose 1,512 ml @ 63 mls/hr TPN CONT IV Last administered on 08/31/18at 20:59; Start 08/31/18 at 22:00; Stop 09/01/18 at 21:59; Status DC Propofol 100 ml @ As Directed STK-MED ONCE IV ; Start 08/31/18 at 22:45; Stop 08/31/18 at 22:46; Status DC Succinylcholine Chloride (Anectine) 200 mg STK-MED ONCE .ROUTE ; Start 08/31/18 at 22:46; Stop 08/31/18 at 22:47; Status DC Atropine Sulfate (ATROPINE 1mg SYRINGE) 1 mg STK-MED ONCE .ROUTE ; Start 08/31/18 at 22:58; Stop 08/31/18 at 22:59; Status DC Fentanyl Citrate 30 ml @ 0 mls/hr CONT PRN IV SEE PROTOCOL Last administered on 09/05/18at 04:21; Start 09/01/18 at 00:00 Propofol 100 ml @ 0 mls/hr CONT PRN IV SEE PROTOCOL Last administered on 09/05/18at 04:18; Start 09/01/18 at 00:00 Chlorhexidine Gluconate (Peridex) 15 ml BID MM Last administered on 09/05/18at 00:31; Start 09/01/18 at 09:00 Midazolam HCl 100 ml @ 0 mls/hr CONT PRN IV SEE PROTOCOL; Start 09/01/18 at 00:00 Albuterol/ Ipratropium (Duoneb) 3 ml RTQID NEB Last administered on 09/04/18at 21:22; Start 09/01/18 at 08:00 Albuterol/ Ipratropium (Duoneb) 3 ml 1X ONCE NEB Last administered on 09/01/18at 01:10; Start 09/01/18 at 01:00; Stop 09/01/18 at 01:01; Status DC Succinylcholine Chloride (Anectine) 200 mg 1X ONCE IV Last administered on 08/31/18at 23:04; Start 09/01/18 at 01:15; Stop 09/01/18 at 01:16; Status DC Sodium Chloride 1,000 ml @ 1,000 mls/hr Q1H PRN IV hypotension; Start 09/01/18 at 07:00; Stop 09/01/18 at 12:59; Status DC Sodium Chloride (Normal Saline Flush) 10 ml 1X PRN PRN IV AP catheter pack; Start 09/01/18 at 07:00; Stop 09/02/18 at 06:59; Status DC Sodium Chloride (Normal Saline Flush) 10 ml 1X PRN PRN IV [employer] catheter pack; Start 09/01/18 at 07:00; Stop 09/02/18 at 06:59; Status DC Sodium Chloride 1,000 ml @ 400 mls/hr Q2H30M PRN IV PATENCY; Start 09/01/18 at 07:00; Stop 09/01/18 at 18:59; Status DC Info (PHARMACY MONITORING -- do not chart) 1 each PRN DAILY PRN MC SEE COMMENTS; Start 09/01/18 at 11:00; Status Cancel Info (PHARMACY MONITORING -- do not chart) 1 each PRN DAILY PRN MC SEE COMMENTS; Start 09/01/18 at 11:00; Status Cancel Famotidine (Pepcid Vial) 20 mg Q48H IVP Last administered on 09/03/18at 22:11; Start 09/03/18 at 21:00 Sodium Chloride 90 meq/Potassium Chloride 50 meq/ Potassium Phosphate 10 mmol/ Calcium Gluconate 10 meq/ Multivitamins 10 ml/Chromium/ Copper/Manganese/ Seleni/Zn 1 ml/ Total Parenteral Nutrition/Amino Acids/Dextrose 1,512 ml @ 63 mls/hr TPN CONT IV Last administered on 09/01/18at 22:11; Start 09/01/18 at 22:00; Stop 09/02/18 at 21:59; Status DC Piperacillin Sod/ Tazobactam Sod 2.25 gm/Sodium Chloride 50 ml @ 100 mls/hr Q6HRS IV Last administered on 09/05/18at 05:58; Start 09/01/18 at 14:00 Sodium Chloride 110 meq/Potassium Chloride 50 meq/ Potassium Phosphate 10 mmol/ Calcium Gluconate 10 meq/ Multivitamins 10 ml/Chromium/ Copper/Manganese/ Seleni/Zn 1 ml/ Magnesium Sulfate 3 meq/Total Parenteral Nutrition/Amino Acids/Dextrose 1,512 ml @ 63 mls/hr TPN CONT IV Last administered on 09/02/18at 22:13; Start 09/02/18 at 22:00; Stop 09/03/18 at 21:59; Status DC Darbepoetin Phil (Aranesp) 100 mcg [id number] SQ Last administered on 09/03/18at 22:11; Start 09/03/18 at 21:00 Sodium Chloride 130 meq/Potassium Acetate 20 meq/ Calcium Gluconate 10 meq/ Multivitamins 10 ml/Chromium/ Copper/Manganese/ Seleni/Zn 1 ml/ Magnesium Sulfate 3 meq/Total Parenteral Nutrition/Amino Acids/Dextrose 1,512 ml @ 63 mls/hr TPN CONT IV Last administered on 09/03/18at 22:12; Start 09/03/18 at 22:00; Stop 09/04/18 at 21:59; Status DC Albumin Human 200 ml @ 200 mls/hr 1X PRN PRN IV Hypotension; Start 09/03/18 at 10:00; Stop 09/03/18 at 21:00; Status DC Sodium Chloride (Normal Saline Flush) 10 ml 1X PRN PRN IV AP catheter pack; Start 09/03/18 at 10:00; Stop 09/03/18 at 21:00; Status DC Sodium Chloride (Normal Saline Flush) 10 ml 1X PRN PRN IV [employer] catheter pack; Start 09/03/18 at 10:00; Stop 09/03/18 at 21:00; Status DC Sodium Chloride 1,000 ml @ 400 mls/hr Q2H30M PRN IV PATENCY; Start 09/03/18 at 10:00; Stop 09/03/18 at 21:59; Status DC Info (PHARMACY MONITORING -- do not chart) 1 each PRN DAILY PRN MC SEE COMMENTS; Start 09/03/18 at 18:15; Status UNV Atropine Sulfate (ATROPINE 0.5mg SYRINGE) 0.5 mg STK-MED ONCE .ROUTE ; Start 08/31/18 at 08:06; Stop 09/04/18 at 08:07; Status DC Epinephrine HCl (EPINEPHrine SYRINGE) 3 mg STK-MED ONCE .ROUTE ; Start 08/31/18 at 08:06; Stop 09/04/18 at 08:07; Status DC Sodium Bicarbonate (Sodium Bicarb Adult 8.4% Syr) 100 meq STK-MED ONCE .ROUTE ; Start 08/31/18 at 08:06; Stop 09/04/18 at 08:07; Status DC Levofloxacin/ Dextrose 150 ml @ 100 mls/hr QODAY IV Last administered on 09/04/18at 08:46; Start 09/04/18 at 09:00 Sodium Chloride 1,000 ml @ 1,000 mls/hr Q1H PRN IV hypotension; Start 09/04/18 at 08:23; Stop 09/04/18 at 14:24; Status DC Albumin Human 200 ml @ 200 mls/hr 1X PRN PRN IV Hypotension; Start 09/04/18 at 08:30; Stop 09/04/18 at 14:29; Status DC Sodium Chloride 1,000 ml @ 400 mls/hr Q2H30M PRN IV PATENCY; Start 09/04/18 at 08:23; Stop 09/04/18 at 20:22; Status DC Info (PHARMACY MONITORING -- do not chart) 1 each PRN DAILY PRN MC SEE COMMENTS; Start 09/04/18 at 08:30 Info (PHARMACY MONITORING -- do not chart) 1 each PRN DAILY PRN MC SEE COMMENTS; Start 09/04/18 at 08:30; Status UNV Active Scripts Active Potassium Chloride 20 Meq Tablet.er 20 Meq PO DAILY Orphenadrine Citrate 100 Mg Tablet.er 100 Mg PO Q12HR Anaprox Ds (Naproxen Sodium) 550 Mg Tablet 550 Mg PO Q12HR Reported Prednisone 20 Mg Tablet 1 Tab PO DAILY Hydrochlorothiazide Tablet (Hydrochlorothiazide) 12.5 Mg Tablet 12.5 Mg PO DAILY Shilpi Allergy (Fexofenadine Hcl) 180 Mg Tablet 1 Tab PO DAILY Vitals/I & O Vital Sign - Last 24 Hours 09/04/18 09/04/18 09/04/18 09/04/18 09:00 09:10 10:00 11:00 Pulse 87 84 86 Resp 16 16 17 B/P (MAP) 145/70 (95) 133/68 (89) 125/68 (87) Pulse Ox 98 97 98 96 O2 Delivery Ventilator Ventilator Ventilator Ventilator 09/04/18 09/04/18 09/04/18 09/04/18 11:50 12:00 12:00 13:00 Temp 99.8 99.8 Pulse 84 84 Resp 16 18 B/P (MAP) 128/67 (87) 142/66 (91) Pulse Ox 97 98 O2 Delivery Ventilator Mechanical Ventilator Ventilator Ventilator 09/04/18 09/04/18 09/04/18 09/04/18 14:00 15:00 15:15 16:00 Pulse 90 92 Resp 20 19 B/P (MAP) 132/65 (87) 144/69 (94) Pulse Ox 96 O2 Delivery Ventilator Ventilator Ventilator Mechanical Ventilator 09/04/18 09/04/18 09/04/18 09/04/18 16:00 17:00 17:13 18:00 Temp 100.0 100.0 Pulse 86 85 86 Resp 18 20 20 B/P (MAP) 141/67 (91) 140/81 (100) 142/73 (96) Pulse Ox 97 O2 Delivery Ventilator Ventilator Ventilator Ventilator 09/04/18 09/04/18 09/04/18 09/04/18 19:20 20:00 20:00 21:00 Temp 101.2 101.2 Pulse 94 92 Resp 22 25 B/P (MAP) 149/70 (96) 140/76 (97) Pulse Ox 97 98 96 O2 Delivery Ventilator Ventilator Mechanical Ventilator Ventilator 09/04/18 09/04/18 09/04/18 09/05/18 21:22 22:00 23:00 00:01 Pulse 96 90 Resp 17 18 B/P (MAP) 143/71 (95) 139/79 (99) Pulse Ox 97 97 97 O2 Delivery Ventilator Ventilator Ventilator Mechanical Ventilator 09/05/18 09/05/18 09/05/18 09/05/18 00:01 00:21 01:00 02:00 Temp 99.9 99.9 Pulse 87 84 87 Resp 18 18 18 B/P (MAP) 158/76 (103) 140/69 (92) 155/79 (104) Pulse Ox 97 100 97 97 O2 Delivery Ventilator Ventilator Ventilator Ventilator 09/05/18 09/05/18 09/05/18 09/05/18 03:00 03:30 04:00 04:00 Temp 99.0 99.0 Pulse 86 85 Resp 18 18 B/P (MAP) 138/74 (95) 153/81 (105) Pulse Ox 96 97 98 O2 Delivery Ventilator Ventilator Ventilator Mechanical Ventilator 09/05/18 09/05/18 09/05/18 09/05/18 04:21 04:51 05:00 06:00 Pulse 81 82 Resp 18 18 18 18 B/P (MAP) 150/82 (104) 144/75 (98) Pulse Ox 97 99 97 99 O2 Delivery Ventilator Ventilator O2 Flow Rate 15.0 15.0 Intake and Output 09/04/18 09/04/18 09/05/18 15:00 23:00 07:00 Intake Total 200 ml 300 ml 930.8 ml Output Total 5 ml 14 ml 5 ml Balance 195 ml 286 ml 925.8 ml VIJAY BLEVINS MD September 05, 2018 08:10
[2018-09-05] MEDS: IPRATRPIUM/ALBUTEROL 0.5/2.5MG 3 ML NEBU. NEB SCH ×4 (08:14→20:12)
[2018-09-05] MEDS ORDERED: IV NORMAL SALINE 1000ML BAG 1,000 ML IV PRN ×2 (08:51)
[2018-09-05] MEDS ORDERED: DIALYSIS PATIENT. MC PRN ×2 (09:00)
[2018-09-05] MEDS ORDERED: 0.9 % SODIUM CHLORIDE 10 ML DISP.SYRIN. IV PRN ×2 (09:00)
[2018-09-05 09:40] LABS: BASE EXCESS ABG -3 mmol/L (-3-3); HCO3 ABG 22 mmol/L (21-28); PCO2 ABG 36 mmHg (35-46); PO2 ABG 99 mmHg (75-108); SAT O2 ABG 96 % (92-99)
[2018-09-05 09:44] LABS: FIO2 ABG 35
--- NOTE | 2018-09-05 09:57 | PDOC ---
PROGRESS NOTES Assessment Problems Medical Problems: (1) Acute renal failure Status: Acute Intubated and returned to ICU over the weekend Metabolic encephalopathy. 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 Hold on repeating lumbar puncture, especially since he was mostly lucid before requiring intubation Discussed with his Objective Vital Signs Date Time Temp Pulse Resp B/P (MAP) Pulse Ox O2 Delivery O2 Flow Rate FiO2 09/05/18 08:14 98 Ventilator 09/05/18 06:00 82 18 144/75 (98) 09/05/18 04:51 15.0 09/05/18 04:00 99.0 99.0 Intake and Output 09/05/18 06:59 Intake Total 1430.8 ml Output Total 24 ml Balance 1406.8 ml IV Total 630.8 ml Tube Feeding 800 ml Output Urine Total 24 ml Gastric Drainage Total 0 ml PHYSICAL EXAM Intubated, sedated in ICU PERRL. EOMI. CN: no focal findings. Muscle tone: normal. Muscle strength: Moves legs spontaneously DTR: 1+ Plantar reflex: silent Gait: not examined in bed. Sensory exam: no abnormal findings. No cerebellar signs elicited. Review of Relevant I have reviewed the following items gera (where applicable) has been applied. Labs Laboratory Tests Test 09/04/18 05:00 09/04/18 08:55 09/05/18 03:45 09/05/18 09:35 Sodium Level 135 mmol/L (136-145) 136 mmol/L (136-145) Potassium Level 4.7 mmol/L (3.5-5.1) 5.1 mmol/L (3.5-5.1) Chloride Level 98 mmol/L (98-107) 99 mmol/L (98-107) Carbon Dioxide Level 25 mmol/L (21-32) 24 mmol/L (21-32) Anion Gap 12 (6-14) 13 (6-14) Blood Urea Nitrogen 55 mg/dL (8-26) 56 mg/dL (8-26) Creatinine 6.4 mg/dL (0.7-1.3) 6.4 mg/dL (0.7-1.3) Estimated GFR (Cockcroft-Gault) 9.2 9.2 Glucose Level 148 mg/dL (70-99) 122 mg/dL (70-99) Calcium Level 7.6 mg/dL (8.5-10.1) 7.8 mg/dL (8.5-10.1) Phosphorus Level 4.2 mg/dL (2.6-4.7) 5.2 mg/dL (2.6-4.7) Albumin 2.0 g/dL (3.4-5.0) 2.1 g/dL (3.4-5.0) O2 Saturation 96 % (92-99) 96 % (92-99) Arterial Blood pH 7.45 (7.35-7.45) 7.40 (7.35-7.45) Arterial Blood pCO2 at Patient Temp 33 mmHg (35-46) 36 mmHg (35-46) Arterial Blood pO2 at Patient Temp 96 mmHg (75-108) 99 mmHg (75-108) Arterial Blood HCO3 23 mmol/L (21-28) 22 mmol/L (21-28) Arterial Blood Base Excess -1 mmol/L (-3-3) -3 mmol/L (-3-3) FiO2 35 35 White Blood Count 7.9 x10^3/uL (4.0-11.0) Red Blood Count 2.65 x10^6/uL (4.30-5.70) Hemoglobin 7.8 g/dL (13.0-17.5) Hematocrit 22.8 % (39.0-53.0) Mean Corpuscular Volume 86 fL (79-100) Mean Corpuscular Hemoglobin 29 pg (25-35) Mean Corpuscular Hemoglobin Concent 34 g/dL (31-37) Red Cell Distribution Width 17.8 % (11.5-14.5) Platelet Count 182 x10^3/uL (140-400) Laboratory Tests Test 09/05/18 03:45 09/05/18 09:35 White Blood Count 7.9 x10^3/uL (4.0-11.0) Red Blood Count 2.65 x10^6/uL (4.30-5.70) Hemoglobin 7.8 g/dL (13.0-17.5) Hematocrit 22.8 % (39.0-53.0) Mean Corpuscular Volume 86 fL (79-100) Mean Corpuscular Hemoglobin 29 pg (25-35) Mean Corpuscular Hemoglobin Concent 34 g/dL (31-37) Red Cell Distribution Width 17.8 % (11.5-14.5) Platelet Count 182 x10^3/uL (140-400) Sodium Level 136 mmol/L (136-145) Potassium Level 5.1 mmol/L (3.5-5.1) Chloride Level 99 mmol/L (98-107) Carbon Dioxide Level 24 mmol/L (21-32) Anion Gap 13 (6-14) Blood Urea Nitrogen 56 mg/dL (8-26) Creatinine 6.4 mg/dL (0.7-1.3) Estimated GFR (Cockcroft-Gault) 9.2 Glucose Level 122 mg/dL (70-99) Calcium Level 7.8 mg/dL (8.5-10.1) Phosphorus Level 5.2 mg/dL (2.6-4.7) Albumin 2.1 g/dL (3.4-5.0) O2 Saturation 96 % (92-99) Arterial Blood pH 7.40 (7.35-7.45) Arterial Blood pCO2 at Patient Temp 36 mmHg (35-46) Arterial Blood pO2 at Patient Temp 99 mmHg (75-108) Arterial Blood HCO3 22 mmol/L (21-28) Arterial Blood Base Excess -3 mmol/L (-3-3) FiO2 35 Microbiology 09/04/18 Blood Culture - Preliminary, Resulted NO GROWTH AFTER 1 DAY 08/29/18 CSF Gram Stain - Final, Complete 08/27/18 Stool Culture - Final, Complete 08/27/18 Stool Culture Result 1 (LOTUS) - Final, Complete 08/27/18 Campylobacter Antigen Assay - Final, Complete 08/27/18 Campylobactor Result 1 - Final, Complete 08/27/18 Shiga Toxin Test - Final, Complete 09/01/18 - Final, Resulted 09/01/18 - Final, Resulted 09/01/18 - Final, Resulted 09/01/18 Gram Stain Evaluation - Final, Resulted 09/01/18 Sputum Culture, Resulted Pending Medications Current Medications Sodium Chloride 1,000 ml @ 1,000 mls/hr 1X ONCE IV Last administered on 08/25/18 20:38; Start 08/25/18 at 19:15; Stop 08/25/18 at 20:14; Status DC Ibuprofen (Motrin) 600 mg 1X ONCE PO Last administered on 08/25/18 20:38; Start 08/25/18 at 19:45; Stop 08/25/18 at 19:49; Status DC Sodium Chloride 1,000 ml @ 1,000 mls/hr 1X ONCE IV Last administered on 08/25/18 20:30; Start 08/25/18 at 20:30; Stop 08/25/18 at 21:29; Status DC Ceftriaxone Sodium (Rocephin) 1 gm 1X ONCE IVP Last administered on 08/25/18 20:36; Start 08/25/18 at 20:30; Stop 08/25/18 at 20:31; Status DC Vancomycin HCl 2 gm/Sodium Chloride 500 ml @ 250 mls/hr 1X ONCE IV Last admi nistered on 08/25/18 23:10; Start 08/25/18 at 21:30; Stop 08/25/18 at 23:29; Status DC Sodium Chloride 1,000 ml @ 1,000 mls/hr 1X ONCE IV Last administered on 08/25/18 23:51; Start 08/25/18 at 21:00; Stop 08/25/18 at 21:59; Status DC Piperacillin Sod/ Tazobactam Sod 4.5 gm/Sodium Chloride 100 ml @ 200 mls/hr 1X ONCE IV ; Start 08/25/18 at 21:15; Stop 08/25/18 at 21:44; Status DC Aztreonam (Azactam) 2 gm 1X ONCE IVP Last administered on 08/25/18 21:15; Start 08/25/18 at 21:15; Stop 08/25/18 at 21:16; Status DC Magnesium Sulfate 50 ml @ 25 mls/hr 1X ONCE IV Last administered on 08/25/18 23:51; Start 08/25/18 at 21:15; Stop 08/25/18 at 23:14; Status DC Ondansetron HCl (Zofran) 4 mg PRN Q8HRS PRN IV NAUSEA/VOMITING; Start 08/25/18 at 21:15; Stop 08/26/18 at 21:14; Status DC Acetaminophen (Tylenol) 650 mg PRN Q4HRS PRN PO FEVER; Start 08/25/18 at 21:15; Stop 08/26/18 at 21:14; Status DC Sodium Chloride 1,000 ml @ 125 mls/hr 1X ONCE IV Last administered on 08/25/18at 23:09; Start 08/25/18 at 21:15; Stop 08/26/18 at 05:14; Status DC Daptomycin 610 mg/ Sodium Chloride 50 ml @ 100 mls/hr QODAY IV Last administered on 08/27/18at 08:59; Start 08/27/18 at 09:00; Stop 08/28/18 at 15:40; Status DC Meropenem 500 mg/ Sodium Chloride 50 ml @ 100 mls/hr 1X ONCE IV Last administered on 08/25/18at 22:12; Start 08/25/18 at 22:00; Stop 08/25/18 at 22:29; Status DC Doxycycline Hyclate 100 mg/ Dextrose 100 ml @ 50 mls/hr Q12HR IV Last administered on 09/03/18at 22:11; Start 08/26/18 at 09:00; Stop 09/04/18 at 08:11; Status DC Meropenem 500 mg/ Sodium Chloride 50 ml @ 100 mls/hr DAILY IV Last administered on 08/29/18at 10:13; Start 08/26/18 at 09:00; Stop 08/30/18 at 08:17; Status DC Sodium Chloride (Normal Saline Flush) 10 ml QSHIFT PRN IV AFTER MEDS AND BLOOD DRAWS; Start 08/26/18 at 09:15 Norepinephrine Bitartrate 250 ml @ 0 mls/hr CONT PRN IV PER PROTOCOL Last administered on 08/27/18at 10:21; Start 08/26/18 at 09:15; Stop 08/30/18 at 17:20; Status DC Famotidine (Pepcid) 20 mg DAILY PO Last administered on 08/27/18at 08:14; Start 08/26/18 at 12:00; Stop 08/27/18 at 14:36; Status DC Sodium Chloride 1,000 ml @ 1,000 mls/hr Q1H PRN IV hypotension; Start 08/26/18 at 11:51; Stop 08/26/18 at 17:50; Status DC Sodium Chloride (Normal Saline Flush) 10 ml 1X PRN PRN IV AP catheter pack; Start 08/26/18 at 12:00; Stop 08/27/18 at 11:59; Status DC Sodium Chloride (Normal Saline Flush) 10 ml 1X PRN PRN IV DESIGN QUALITY ENGINEER catheter pack; Start 08/26/18 at 12:00; Stop 08/27/18 at 11:59; Status DC Sodium Chloride 1,000 ml @ 400 mls/hr Q2H30M PRN IV PATENCY; Start 08/26/18 at 11:51; Stop 08/26/18 at 23:50; Status DC Info (PHARMACY MONITORING -- do not chart) 1 each PRN DAILY PRN MC SEE COMMENTS; Start 08/26/18 at 12:00; Status UNV Info (PHARMACY MONITORING -- do not chart) 1 each PRN DAILY PRN MC SEE COMMENTS; Start 08/26/18 at 12:00; Stop 09/01/18 at 10:59; Status DC Lidocaine/Sodium Bicarbonate (Buffered Lidocaine 1%) 4 ml 1X ONCE INJ Last administered on 08/26/18at 12:45; Start 08/26/18 at 12:45; Stop 08/26/18 at 12: 48; Status DC Heparin Sodium (Porcine) (Heparin Sodium) 2,500 unit 1X ONCE INT CAT Last administered on 08/26/18at 12:45; Start 08/26/18 at 12:45; Stop 08/26/18 at 12:48; Status DC Lidocaine/Sodium Bicarbonate (Buffered Lidocaine 1%) 3 ml STK-MED ONCE .ROUTE ; Start 08/26/18 at 12:49; Stop 08/26/18 at 12:50; Status DC Heparin Sodium (Porcine) (Heparin Sodium) 10,000 unit STK-MED ONCE .ROUTE ; Start 08/26/18 at 12:49; Stop 08/26/18 at 12:50; Status DC Lactobacillus Rhamnosus (Culturelle) 1 cap BID PO Last administered on 09/05/18at 08:13; Start 08/26/18 at 21:00 Acetaminophen (Tylenol) 325 mg STK-MED ONCE PO ; Start 08/27/18 at 00:43; Stop 08/27/18 at 00:44; Status DC Sodium Chloride 1,000 ml @ 1,000 mls/hr 1X ONCE IV Last administered on 08/27/18at 11:05; Start 08/27/18 at 10:30; Stop 08/27/18 at 11:29; Status DC Sodium Chloride 1,000 ml @ 1,000 mls/hr Q1H PRN IV hypotension; Start 08/27/18 at 11:28; Stop 08/27/18 at 17:27; Status DC Albumin Human 200 ml @ 200 mls/hr 1X PRN PRN IV Hypotension; Start 08/27/18 at 11:30; Stop 08/27/18 at 17:29; Status DC Sodium Chloride (Normal Saline Flush) 10 ml 1X PRN PRN IV AP catheter pack; Start 08/27/18 at 11:30; Stop 08/28/18 at 11:29; Status DC Sodium Chloride (Normal Saline Flush) 10 ml 1X PRN PRN IV DESIGN QUALITY ENGINEER catheter pack; Start 08/27/18 at 11:30; Stop 08/28/18 at 11:29; Status DC Sodium Chloride 1,000 ml @ 400 mls/hr Q2H30M PRN IV PATENCY; Start 08/27/18 at 11:28; Stop 08/27/18 at 23:27; Status DC Info (PHARMACY MONITORING -- do not chart) 1 each PRN DAILY PRN MC SEE COMMENTS; Start 08/27/18 at 11:30; Status UNV Info (PHARMACY MONITORING -- do not chart) 1 each PRN DAILY PRN MC SEE COMMENTS; Start 08/27/18 at 11:30; Status UNV Famotidine (Pepcid) 20 mg Q48H PO ; Start 08/29/18 at 09:00; Stop 08/29/18 at 11:29; Status DC Acetaminophen (Tylenol) 650 mg PRN Q6HRS PRN PO pain/fever; Start 08/27/18 at 21:15 Acetaminophen (Tylenol Supp) 650 mg PRN Q6HRS PRN UT MILD PAIN / TEMP Last administered on 09/02/18at 01:18; Start 08/27/18 at 21:15 Fentanyl Citrate (Fentanyl 2ml Vial) 25 mcg 1X ONCE IV Last administered on 08/28/18at 08:54; Start 08/28/18 at 08:45; Stop 08/28/18 at 08:47; Status DC Lidocaine/Sodium Bicarbonate (Buffered Lidocaine 1%) 3 ml STK-MED ONCE .ROUTE ; Start 08/28/18 at 09:55; Stop 08/28/18 at 09:56; Status DC Lidocaine HCl (Glydo (Lidocaine) Jelly) 1 meng 1X STAT MM Last administered on 08/28/18at 10:16; Start 08/28/18 at 10:16; Stop 08/28/18 at 10:19; Status DC Benzocaine (Hurricaine One) 1 spray 1X STAT MM Last administered on 08/28/18at 10:16; Start 08/28/18 at 10:16; Stop 08/28/18 at 10:19; Status DC Lidocaine/Sodium Bicarbonate (Buffered Lidocaine 1%) 3 ml 1X ONCE INJ ; Start 08/28/18 at 10:30; Stop 08/28/18 at 10:31; Status DC Haloperidol Lactate (Haldol Inj) 5 mg PRN Q6HRS PRN IVP AGITATION Last administered on 08/29/18at 20:31; Start 08/28/18 at 12:00 Fentanyl Citrate (Fentanyl 2ml Vial) 50 mcg PRN Q4HRS PRN IV PAIN Last administered on 08/28/18at 21:44; Start 08/28/18 at 15:30; Stop 09/05/18 at 02:11; Status DC Sodium Chloride 1,000 ml @ 1,000 mls/hr Q1H PRN IV hypotension; Start 08/28/18 at 14:00; Stop 08/28/18 at 19:59; Status DC Albumin Human 200 ml @ 200 mls/hr 1X PRN PRN IV Hypotension Last administered on 08/28/18at 14:50; Start 08/28/18 at 14:00; Stop 09/03/18 at 18:17; Status DC Sodium Chloride 1,000 ml @ 400 mls/hr Q2H30M PRN IV PATENCY; Start 08/28/18 at 14:00; Stop 08/29/18 at 01:59; Status DC Info (PHARMACY MONITORING -- do not chart) 1 each PRN DAILY PRN MC SEE COMMENTS; Start 08/28/18 at 15:30; Status UNV Info (PHARMACY MONITORING -- do not chart) 1 each PRN DAILY PRN MC SEE COMMENTS; Start 08/28/18 at 15:30; Status UNV Daptomycin 610 mg/ Sodium Chloride 50 ml @ 100 mls/hr Q48H IV ; Start 08/30/18 at 16:00; Stop 08/30/18 at 16:00; Status DC Famotidine (Pepcid Vial) 20 mg QHS IVP Last administered on 08/31/18at 20:59; Start 08/29/18 at 21:00; Stop 09/01/18 at 11:00; Status DC Acyclovir Sodium 340 mg/Dextrose 106.8 ml @ 106.8 mls/ hr Q12HR IV Last administered on 09/01/18at 11:05; Start 08/30/18 at 09:00; Stop 09/01/18 at 13:37; Status DC Sodium Chloride 1,000 ml @ 1,000 mls/hr Q1H PRN IV hypotension; Start 08/30/18 at 11:02; Stop 08/30/18 at 17:01; Status DC Sodium Chloride 1,000 ml @ 400 mls/hr Q2H30M PRN IV PATENCY; Start 08/30/18 at 11:02; Stop 08/30/18 at 23:01; Status DC Info (PHARMACY MONITORING -- do not chart) 1 each PRN DAILY PRN MC SEE COMMENTS; Start 08/30/18 at 11:15; Status UNV Info (PHARMACY MONITORING -- do not chart) 1 each PRN DAILY PRN MC SEE COMMENTS; Start 08/30/18 at 11:15; Status UNV Info (Tpn Per Pharmacy) 1 each PRN DAILY PRN MC SEE COMMENTS Last administered on 09/03/18at 10:53; Start 08/30/18 at 12:45; Stop 09/04/18 at 12:50; Status DC Sodium Chloride 90 meq/Potassium Chloride 50 meq/ Potassium Phosphate 3 mmol/ Magnesium Sulfate 10 meq/Calcium Gluconate 10 meq/ Multivitamins 10 ml/Chromium/ Copper/Manganese/ Seleni/Zn 1 ml/ Total Parenteral Nutrition/Amino Acids/Dextrose/ Fat Emulsion Intravenous 1,512 ml @ 63 mls/hr TPN CONT IV Last administered on 08/30/18at 21:40; Start 08/30/18 at 22:00; Stop 08/31/18 at 21:59; Status DC Ondansetron HCl (Zofran) 4 mg PRN Q6HRS PRN IV NAUSEA/VOMITING; Start 08/31/18 at 08:00 Haloperidol (Haldol) 2 mg PRN QID PRN PO AGITATION; Start 08/31/18 at 08:00; Stop 08/31/18 at 12:43; Status DC Haloperidol Lactate (HALDOL 2mg ORAL CONC) 2 mg PRN QID PRN PO AGITATION; Start 08/31/18 at 12:43 Sodium Chloride 90 meq/Potassium Chloride 50 meq/ Potassium Phosphate 5 mmol/ Magnesium Sulfate 3 meq/Calcium Gluconate 10 meq/ Multivitamins 10 ml/Chromium/ Copper/Manganese/ Seleni/Zn 1 ml/ Total Parenteral Nutrition/Amino Acids/Dextrose 1,512 ml @ 63 mls/hr TPN CONT IV Last administered on 08/31/18at 20:59; Start 08/31/18 at 22:00; Stop 09/01/18 at 21:59; Status DC Propofol 100 ml @ As Directed STK-MED ONCE IV ; Start 08/31/18 at 22:45; Stop 08/31/18 at 22:46; Status DC Succinylcholine Chloride (Anectine) 200 mg STK-MED ONCE .ROUTE ; Start 08/31/18 at 22:46; Stop 08/31/18 at 22:47; Status DC Atropine Sulfate (ATROPINE 1mg SYRINGE) 1 mg STK-MED ONCE .ROUTE ; Start 08/31/18 at 22:58; Stop 08/31/18 at 22:59; Status DC Fentanyl Citrate 30 ml @ 0 mls/hr CONT PRN IV SEE PROTOCOL Last administered on 09/05/18at 04:21; Start 09/01/18 at 00:00 Propofol 100 ml @ 0 mls/hr CONT PRN IV SEE PROTOCOL Last administered on 09/05/18at 08:13; Start 09/01/18 at 00:00 Chlorhexidine Gluconate (Peridex) 15 ml BID MM Last administered on 09/05/18at 08:13; Start 09/01/18 at 09:00 Midazolam HCl 100 ml @ 0 mls/hr CONT PRN IV SEE PROTOCOL; Start 09/01/18 at 00:00 Albuterol/ Ipratropium (Duoneb) 3 ml RTQID NEB Last administered on 09/05/18at 08:14; Start 09/01/18 at 08:00 Albuterol/ Ipratropium (Duoneb) 3 ml 1X ONCE NEB Last administered on 09/01/18at 01:10; Start 09/01/18 at 01:00; Stop 09/01/18 at 01:01; Status DC Succinylcholine Chloride (Anectine) 200 mg 1X ONCE IV Last administered on 08/31/18at 23:04; Start 09/01/18 at 01:15; Stop 09/01/18 at 01:16; Status DC Sodium Chloride 1,000 ml @ 1,000 mls/hr Q1H PRN IV hypotension; Start 09/01/18 at 07:00; Stop 09/01/18 at 12:59; Status DC Sodium Chloride (Normal Saline Flush) 10 ml 1X PRN PRN IV AP catheter pack; Start 09/01/18 at 07:00; Stop 09/02/18 at 06:59; Status DC Sodium Chloride (Normal Saline Flush) 10 ml 1X PRN PRN IV DESIGN QUALITY ENGINEER catheter pack; Start 09/01/18 at 07:00; Stop 09/02/18 at 06:59; Status DC Sodium Chloride 1,000 ml @ 400 mls/hr Q2H30M PRN IV PATENCY; Start 09/01/18 at 07:00; Stop 09/01/18 at 18:59; Status DC Info (PHARMACY MONITORING -- do not chart) 1 each PRN DAILY PRN MC SEE COMMENTS; Start 09/01/18 at 11:00; Status Cancel Info (PHARMACY MONITORING -- do not chart) 1 each PRN DAILY PRN MC SEE COMMENTS; Start 09/01/18 at 11:00; Status Cancel Famotidine (Pepcid Vial) 20 mg Q48H IVP Last administered on 09/03/18at 22:11; Start 09/03/18 at 21:00 Sodium Chloride 90 meq/Potassium Chloride 50 meq/ Potassium Phosphate 10 mmol/ Calcium Gluconate 10 meq/ Multivitamins 10 ml/Chromium/ Copper/Manganese/ Seleni/Zn 1 ml/ Total Parenteral Nutrition/Amino Acids/Dextrose 1,512 ml @ 63 mls/hr TPN CONT IV Last administered on 09/01/18at 22:11; Start 09/01/18 at 22:00; Stop 09/02/18 at 21:59; Status DC Piperacillin Sod/ Tazobactam Sod 2.25 gm/Sodium Chloride 50 ml @ 100 mls/hr Q6HRS IV Last administered on 09/05/18at 05:58; Start 09/01/18 at 14:00 Sodium Chloride 110 meq/Potassium Chloride 50 meq/ Potassium Phosphate 10 mmol/ Calcium Gluconate 10 meq/ Multivitamins 10 ml/Chromium/ Copper/Manganese/ Seleni/Zn 1 ml/ Magnesium Sulfate 3 meq/Total Parenteral Nutrition/Amino Acids/Dextrose 1,512 ml @ 63 mls/hr TPN CONT IV Last administered on 09/02/18at 22:13; Start 09/02/18 at 22:00; Stop 09/03/18 at 21:59; Status DC Darbepoetin Phil (Aranesp) 100 mcg [id number] SQ Last administered on 09/03/18at 22:11; Start 09/03/18 at 21:00 Sodium Chloride 130 meq/Potassium Acetate 20 meq/ Calcium Gluconate 10 meq/ Multivitamins 10 ml/Chromium/ Copper/Manganese/ Seleni/Zn 1 ml/ Magnesium Sulfate 3 meq/Total Parenteral Nutrition/Amino Acids/Dextrose 1,512 ml @ 63 mls/hr TPN CONT IV Last administered on 09/03/18at 22:12; Start 09/03/18 at 22 :00; Stop 09/04/18 at 21:59; Status DC Albumin Human 200 ml @ 200 mls/hr 1X PRN PRN IV Hypotension; Start 09/03/18 at 10:00; Stop 09/03/18 at 21:00; Status DC Sodium Chloride (Normal Saline Flush) 10 ml 1X PRN PRN IV AP catheter pack; Start 09/03/18 at 10:00; Stop 09/03/18 at 21:00; Status DC Sodium Chloride (Normal Saline Flush) 10 ml 1X PRN PRN IV DESIGN QUALITY ENGINEER catheter pack; Start 09/03/18 at 10:00; Stop 09/03/18 at 21:00; Status DC Sodium Chloride 1,000 ml @ 400 mls/hr Q2H30M PRN IV PATENCY; Start 09/03/18 at 10:00; Stop 09/03/18 at 21:59; Status DC Info (PHARMACY MONITORING -- do not chart) 1 each PRN DAILY PRN MC SEE COMMENTS; Start 09/03/18 at 18:15; Status UNV Atropine Sulfate (ATROPINE 0.5mg SYRINGE) 0.5 mg STK-MED ONCE .ROUTE ; Start 08/31/18 at 08:06; Stop 09/04/18 at 08:07; Status DC Epinephrine HCl (EPINEPHrine SYRINGE) 3 mg STK-MED ONCE .ROUTE ; Start 08/31/18 at 08:06; Stop 09/04/18 at 08:07; Status DC Sodium Bicarbonate (Sodium Bicarb Adult 8.4% Syr) 100 meq STK-MED ONCE .ROUTE ; Start 08/31/18 at 08:06; Stop 09/04/18 at 08:07; Status DC Levofloxacin/ Dextrose 150 ml @ 100 mls/hr QODAY IV Last administered on 08/09 11/26at 08:46; Start 09/04/18 at 09:00 Sodium Chloride 1,000 ml @ 1,000 mls/hr Q1H PRN IV hypotension; Start 09/04/18 at 08:23; Stop 09/04/18 at 14:24; Status DC Albumin Human 200 ml @ 200 mls/hr 1X PRN PRN IV Hypotension; Start 09/04/18 at 08:30; Stop 09/04/18 at 14:29; Status DC Sodium Chloride 1,000 ml @ 400 mls/hr Q2H30M PRN IV PATENCY; Start 09/04/18 at 08:23; Stop 09/04/18 at 20:22; Status DC Info (PHARMACY MONITORING -- do not chart) 1 each PRN DAILY PRN MC SEE COMMENTS; Start 09/04/18 at 08:30; Stop 09/05/18 at 08:55; Status DC Info (PHARMACY MONITORING -- do not chart) 1 each PRN DAILY PRN MC SEE COMMENTS; Start 09/04/18 at 08:30; Status UNV Linezolid/Dextrose 300 ml @ 300 mls/hr Q12HR IV Last administered on 09/05/18at 09:12; Start 09/05/18 at 09:30 Sodium Chloride 1,000 ml @ 1,000 mls/hr Q1H PRN IV hypotension; Start 09/05/18 at 08:51; Stop 09/05/18 at 14:50 Sodium Chloride (Normal Saline Flush) 10 ml 1X PRN PRN IV AP catheter pack; Start 09/05/18 at 09:00; Stop 09/06/18 at 08:59 Sodium Chloride (Normal Saline Flush) 10 ml 1X PRN PRN IV DESIGN QUALITY ENGINEER catheter pack; Start 09/05/18 at 09:00; Stop 09/06/18 at 08:59 Sodium Chloride 1,000 ml @ 400 mls/hr Q2H30M PRN IV PATENCY; Start 09/05/18 at 08:51; Stop 09/05/18 at 20:50 Info (PHARMACY MONITORING -- do not chart) 1 each PRN DAILY PRN MC SEE COMMENTS; Start 09/05/18 at 09:00; Stop 09/05/18 at 09:00; Status DC Info (PHARMACY MONITORING -- do not chart) 1 each PRN DAILY PRN MC SEE COMMENTS; Start 09/05/18 at 09:00 Active Scripts Active Potassium Chloride 20 Meq Tablet.er 20 Meq PO DAILY Orphenadrine Citrate 100 Mg Tablet.er 100 Mg PO Q12HR Anaprox Ds (Naproxen Sodium) 550 Mg Tablet 550 Mg PO Q12HR Reported Prednisone 20 Mg Tablet 1 Tab PO DAILY Hydrochlorothiazide Tablet (Hydrochlorothiazide) 12.5 Mg Tablet 12.5 Mg PO DAILY Shilpi Allergy (Fexofenadine Hcl) 180 Mg Tablet 1 Tab PO DAILY Vitals/I & O Vital Sign - Last 24 Hours 09/04/18 09/04/18 09/04/18 09/04/18 10:00 11:00 11:50 12:00 Pulse 84 86 Resp 16 17 B/P (MAP) 133/68 (89) 125/68 (87) Pulse Ox 98 96 97 O2 Delivery Ventilator Ventilator Ventilator Mechanical Ventilator 09/04/18 09/04/18 09/04/18 09/04/18 12:00 13:00 14:00 15:00 Temp 99.8 99.8 Pulse 84 84 90 92 Resp 16 18 20 19 B/P (MAP) 128/67 (87) 142/66 (91) 132/65 (87) 144/69 (94) Pulse Ox 98 O2 Delivery Ventilator Ventilator Ventilator Ventilator 09/04/18 09/04/18 09/04/18 09/04/18 15:15 16:00 16:00 17:00 Temp 100.0 100.0 Pulse 86 85 Resp 18 20 B/P (MAP) 141/67 (91) 140/81 (100) Pulse Ox 96 O2 Delivery Ventilator Mechanical Ventilator Ventilator Ventilator 09/04/18 09/04/18 09/04/18 09/04/18 17:13 18:00 19:20 20:00 Pulse 86 94 Resp 20 22 B/P (MAP) 142/73 (96) 149/70 (96) Pulse Ox 97 97 98 O2 Delivery Ventilator Ventilator Ventilator Ventilator 09/04/18 09/04/18 09/04/18 09/04/18 20:00 21:00 21:22 22:00 Temp 101.2 101.2 Pulse 92 96 Resp 25 17 B/P (MAP) 140/76 (97) 143/71 (95) Pulse Ox 96 97 97 O2 Delivery Mechanical Ventilator Ventilator Ventilator Ventilator 09/04/18 09/05/18 09/05/18 09/05/18 23:00 00:01 00:01 00:21 Pulse 90 87 Resp 18 18 B/P (MAP) 139/79 (99) 158/76 (103) Pulse Ox 97 97 100 O2 Delivery Ventilator Mechanical Ventilator Ventilator Ventilator 09/05/18 09/05/18 09/05/18 09/05/18 01:00 02:00 03:00 03:30 Temp 99.9 99.9 Pulse 84 87 86 Resp 18 18 18 B/P (MAP) 140/69 (92) 155/79 (104) 138/74 (95) Pulse Ox 97 97 96 97 O2 Delivery Ventilator Ventilator Ventilator Ventilator 09/05/18 09/05/18 09/05/18 09/05/18 04:00 04:00 04:21 04:51 Temp 99.0 99.0 Pulse 85 Resp 18 18 18 B/P (MAP) 153/81 (105) Pulse Ox 98 97 99 O2 Delivery Ventilator Mechanical Ventilator O2 Flow Rate 15.0 15.0 09/05/18 09/05/18 09/05/18 09/05/18 05:00 06:00 08:00 08:14 Pulse 81 82 Resp 18 18 B/P (MAP) 150/82 (104) 144/75 (98) Pulse Ox 97 99 98 O2 Delivery Ventilator Ventilator Mechanical Ventilator Ventilator Intake and Output 09/04/18 09/04/18 09/05/18 14:59 22:59 06:59 Intake Total 200 ml 300 ml 930.8 ml Output Total 5 ml 9 ml 10 ml Balance 195 ml 291 ml 920.8 ml MARBIN GARCIA MD September 05, 2018 09:57
--- NOTE | 2018-09-05 09:59 | PDOC ---
Objective: Objective: Reviewed w/ RN - tolerating tube feeds, had a dark stool. On Pepcid Q 48 hrs. Vital Signs: Vital Signs Date Time Temp Pulse Resp B/P (MAP) Pulse Ox O2 Delivery O2 Flow Rate FiO2 09/05/18 08:14 98 Ventilator 09/05/18 06:00 82 18 144/75 (98) 09/05/18 04:51 15.0 09/05/18 04:00 99.0 99.0 Labs: Laboratory Tests Test 09/05/18 03:45 09/05/18 09:35 White Blood Count 7.9 x10^3/uL Red Blood Count 2.65 x10^6/uL Hemoglobin 7.8 g/dL Hematocrit 22.8 % Mean Corpuscular Volume 86 fL Mean Corpuscular Hemoglobin 29 pg Mean Corpuscular Hemoglobin Concent 34 g/dL Red Cell Distribution Width 17.8 % Platelet Count 182 x10^3/uL Sodium Level 136 mmol/L Potassium Level 5.1 mmol/L Chloride Level 99 mmol/L Carbon Dioxide Level 24 mmol/L Anion Gap 13 Blood Urea Nitrogen 56 mg/dL Creatinine 6.4 mg/dL Estimated GFR (Cockcroft-Gault) 9.2 Glucose Level 122 mg/dL Calcium Level 7.8 mg/dL Phosphorus Level 5.2 mg/dL Albumin 2.1 g/dL O2 Saturation 96 % Arterial Blood pH 7.40 Arterial Blood pCO2 at Patient Temp 36 mmHg Arterial Blood pO2 at Patient Temp 99 mmHg Arterial Blood HCO3 22 mmol/L Arterial Blood Base Excess -3 mmol/L FiO2 35 ORDERED: SPUTUM CULTURE GRAM STAIN WHITE BLOOD CELLS Final Few GRAM STAIN EPITHELIAL CELLS Final Few GRAM STAIN RESULT 1 Final No organisms seen GRAM STAIN EVALUATION Final Comment This specimen is of good quality and is acceptable for routine bacterial culture. Performed at: DA - [facility] [address], [place], [place] [id number] Joint Setter: CANDIDA Ramírez MD, Phone: [phone] SPUTUM CULTURE- PENDING BLOOD CULTURE Preliminary NO GROWTH AFTER 3 DAYS BLOOD CULTURE Preliminary NO GROWTH AFTER 1 DAY Imaging: CXR 09/05 IMPRESSION: 1. The ET tube, right jugular dialysis type catheter and NG tube remain in place in satisfactory positions. 2. A new right PICC extends into the right atrium. 3. Mild vascular congestion. 4. Worsening basilar opacities, greatest on the left, compatible with pleural fluid and underlying atelectasis/infiltrate. PE: GEN: intubated LUNGS: vent HEART: RRR ABD: occasional gurgle, soft NEURO/PSYCH: sedated A/P: Suspected tick-borne illness Fever, RADHA, anemia -- Continue support. ELVIA NOE September 05, 2018 09:59
[2018-09-05 10:45] LABS: D-DIMER 3.59 ug/mlFEU (0.00-0.50)
--- NOTE | 2018-09-05 10:49 | PDOC ---
Renal-Progress Notes Subjective Notes Notes INTUBATED History of Present Illness Hx of present illness STABLE Vitals Vitals Vital Signs Date Time Temp Pulse Resp B/P (MAP) Pulse Ox O2 Delivery O2 Flow Rate FiO2 09/05/18 10:00 100 Ventilator 09/05/18 06:00 82 18 144/75 (98) 09/05/18 04:51 15.0 09/05/18 04:00 99.0 99.0 Weight Weight [ ] I.O. Intake and Output Intake and Output 09/05/18 07:00 Intake Total 1430.8 ml Output Total 29 ml Balance 1401.8 ml IV Total 630.8 ml Tube Feeding 800 ml Output Urine Total 29 ml Gastric Drainage Total 0 ml Labs Labs Laboratory Tests Test 09/05/18 03:45 09/05/18 08:25 09/05/18 09:35 White Blood Count 7.9 x10^3/uL (4.0-11.0) Red Blood Count 2.65 x10^6/uL (4.30-5.70) Hemoglobin 7.8 g/dL (13.0-17.5) Hematocrit 22.8 % (39.0-53.0) Mean Corpuscular Volume 86 fL (79-100) Mean Corpuscular Hemoglobin 29 pg (25-35) Mean Corpuscular Hemoglobin Concent 34 g/dL (31-37) Red Cell Distribution Width 17.8 % (11.5-14.5) Platelet Count 182 x10^3/uL (140-400) 175 x10^3/uL (140-400) Sodium Level 136 mmol/L (136-145) Potassium Level 5.1 mmol/L (3.5-5.1) Chloride Level 99 mmol/L (98-107) Carbon Dioxide Level 24 mmol/L (21-32) Anion Gap 13 (6-14) Blood Urea Nitrogen 56 mg/dL (8-26) Creatinine 6.4 mg/dL (0.7-1.3) Estimated GFR (Cockcroft-Gault) 9.2 Glucose Level 122 mg/dL (70-99) Calcium Level 7.8 mg/dL (8.5-10.1) Phosphorus Level 5.2 mg/dL (2.6-4.7) Albumin 2.1 g/dL (3.4-5.0) Prothrombin Time 14.0 SEC (11.7-14.0) Prothromb Time International Ratio 1.1 (0.8-1.1) Activated Partial Thromboplast Time 29 SEC (24-38) Fibrinogen 495 mg/dL (200-440) D-Dimer ([place]) 3.59 ug/mlFEU (0.00-0.50) O2 Saturation 96 % (92-99) Arterial Blood pH 7.40 (7.35-7.45) Arterial Blood pCO2 at Patient Temp 36 mmHg (35-46) Arterial Blood pO2 at Patient Temp 99 mmHg (75-108) Arterial Blood HCO3 22 mmol/L (21-28) Arterial Blood Base Excess -3 mmol/L (-3-3) FiO2 35 Micro Micro Microbiology 09/04/18 Blood Culture - Preliminary, Resulted NO GROWTH AFTER 1 DAY 08/29/18 CSF Gram Stain - Final, Complete 08/27/18 Stool Culture - Final, Complete 08/27/18 Stool Culture Result 1 (LOTUS) - Final, Complete 08/27/18 Campylobacter Antigen Assay - Final, Complete 08/27/18 Campylobactor Result 1 - Final, Complete 08/27/18 Shiga Toxin Test - Final, Complete 09/01/18 - Final, Resulted 09/01/18 - Final, Resulted 09/01/18 - Final, Resulted 09/01/18 Gram Stain Evaluation - Final, Resulted 09/01/18 Sputum Culture - Preliminary, Resulted 09/01/18 Sputum Result 1 - Final, Resulted Physical Exam Skin: warm, dry, moist Respiratory: decreased breath sounds Heart: S1S2 Abdomen: soft, other (HYPOACTIVE) Genitourinary: bladder flat, rose catheter Extremities: pulses present Neurology: other (SEDATED) Assessment Assessment IMP RADHA-ATN SEPSIS THROMBOCYTOPENIA-IMPROVING ACUTE RESP FAILURE LACTIC ACIDOSIS LEUCOCYTOSIS PLAN VENT SUPPORT CONT TF ANTIBIOTICS WILL FOLLOW D/W MIRNA MAI MD September 05, 2018 10:49
--- NOTE | 2018-09-05 11:04 | PDOC ---
PULMONARY PROGRESS NOTES Subjective intubated 08/31, ON AC MODE SEDATED LOW GRADE FEVER Vitals Vital Signs Date Time Temp Pulse Resp B/P (MAP) Pulse Ox O2 Delivery O2 Flow Rate FiO2 09/05/18 10:00 82 18 149/85 (106) 99 Ventilator 09/05/18 08:00 98.5 98.5 09/05/18 04:51 15.0 Lungs: Clear Cardiovascular: S1, S2 Abdomen: Soft, Non-tender, Other (no mass) Extremities: No Edema Skin: Warm Labs Laboratory Tests Test 09/04/18 05:00 09/04/18 08:55 09/05/18 03:45 09/05/18 08:25 Sodium Level 135 mmol/L (136-145) 136 mmol/L (136-145) Potassium Level 4.7 mmol/L (3.5-5.1) 5.1 mmol/L (3.5-5.1) Chloride Level 98 mmol/L (98-107) 99 mmol/L (98-107) Carbon Dioxide Level 25 mmol/L (21-32) 24 mmol/L (21-32) Anion Gap 12 (6-14) 13 (6-14) Blood Urea Nitrogen 55 mg/dL (8-26) 56 mg/dL (8-26) Creatinine 6.4 mg/dL (0.7-1.3) 6.4 mg/dL (0.7-1.3) Estimated GFR (Cockcroft-Gault) 9.2 9.2 Glucose Level 148 mg/dL (70-99) 122 mg/dL (70-99) Calcium Level 7.6 mg/dL (8.5-10.1) 7.8 mg/dL (8.5-10.1) Phosphorus Level 4.2 mg/dL (2.6-4.7) 5.2 mg/dL (2.6-4.7) Albumin 2.0 g/dL (3.4-5.0) 2.1 g/dL (3.4-5.0) O2 Saturation 96 % (92-99) Arterial Blood pH 7.45 (7.35-7.45) Arterial Blood pCO2 at Patient Temp 33 mmHg (35-46) Arterial Blood pO2 at Patient Temp 96 mmHg (75-108) Arterial Blood HCO3 23 mmol/L (21-28) Arterial Blood Base Excess -1 mmol/L (-3-3) FiO2 35 White Blood Count 7.9 x10^3/uL (4.0-11.0) Red Blood Count 2.65 x10^6/uL (4.30-5.70) Hemoglobin 7.8 g/dL (13.0-17.5) Hematocrit 22.8 % (39.0-53.0) Mean Corpuscular Volume 86 fL (79-100) Mean Corpuscular Hemoglobin 29 pg (25-35) Mean Corpuscular Hemoglobin Concent 34 g/dL (31-37) Red Cell Distribution Width 17.8 % (11.5-14.5) Platelet Count 182 x10^3/uL (140-400) 175 x10^3/uL (140-400) Prothrombin Time 14.0 SEC (11.7-14.0) Prothromb Time International Ratio 1.1 (0.8-1.1) Activated Partial Thromboplast Time 29 SEC (24-38) Fibrinogen 495 mg/dL (200-440) D-Dimer (Verona) 3.59 ug/mlFEU (0.00-0.50) Test 09/05/18 09:35 O2 Saturation 96 % (92-99) Arterial Blood pH 7.40 (7.35-7.45) Arterial Blood pCO2 at Patient Temp 36 mmHg (35-46) Arterial Blood pO2 at Patient Temp 99 mmHg (75-108) Arterial Blood HCO3 22 mmol/L (21-28) Arterial Blood Base Excess -3 mmol/L (-3-3) FiO2 35 Laboratory Tests Test 09/05/18 03:45 09/05/18 08:25 09/05/18 09:35 White Blood Count 7.9 x10^3/uL (4.0-11.0) Red Blood Count 2.65 x10^6/uL (4.30-5.70) Hemoglobin 7.8 g/dL (13.0-17.5) Hematocrit 22.8 % (39.0-53.0) Mean Corpuscular Volume 86 fL (79-100) Mean Corpuscular Hemoglobin 29 pg (25-35) Mean Corpuscular Hemoglobin Concent 34 g/dL (31-37) Red Cell Distribution Width 17.8 % (11.5-14.5) Platelet Count 182 x10^3/uL (140-400) 175 x10^3/uL (140-400) Sodium Level 136 mmol/L (136-145) Potassium Level 5.1 mmol/L (3.5-5.1) Chloride Level 99 mmol/L (98-107) Carbon Dioxide Level 24 mmol/L (21-32) Anion Gap 13 (6-14) Blood Urea Nitrogen 56 mg/dL (8-26) Creatinine 6.4 mg/dL (0.7-1.3) Estimated GFR (Cockcroft-Gault) 9.2 Glucose Level 122 mg/dL (70-99) Calcium Level 7.8 mg/dL (8.5-10.1) Phosphorus Level 5.2 mg/dL (2.6-4.7) Albumin 2.1 g/dL (3.4-5.0) Prothrombin Time 14.0 SEC (11.7-14.0) Prothromb Time International Ratio 1.1 (0.8-1.1) Activated Partial Thromboplast Time 29 SEC (24-38) Fibrinogen 495 mg/dL (200-440) D-Dimer (Verona) 3.59 ug/mlFEU (0.00-0.50) O2 Saturation 96 % (92-99) Arterial Blood pH 7.40 (7.35-7.45) Arterial Blood pCO2 at Patient Temp 36 mmHg (35-46) Arterial Blood pO2 at Patient Temp 99 mmHg (75-108) Arterial Blood HCO3 22 mmol/L (21-28) Arterial Blood Base Excess -3 mmol/L (-3-3) FiO2 35 Medications Active Scripts Medications Dose Route/Sig Max Daily Dose Days Date Category Prednisone 20 Mg Tablet 1 Tab PO DAILY 08/26/18 Reported Hydrochlorothiazide Tablet (Hydrochlorothiazide) 12.5 Mg Tablet 12.5 Mg PO DAILY 08/26/18 Reported Shilpi Allergy (Fexofenadine Hcl) 180 Mg Tablet 1 Tab PO DAILY 08/26/18 Reported Potassium Chloride 20 Meq Tablet.er 20 Meq PO DAILY 08/24/18 Rx Orphenadrine Citrate 100 Mg Tablet.er 100 Mg PO Q12HR 02/03/16 Rx Anaprox Ds (Naproxen Sodium) 550 Mg Tablet 550 Mg PO Q12HR 02/03/16 Rx Comments CXR REVIEWED 09/05 SMALL EFFUSION LEFT Impression . IMPRESSION: 1. Acute hypoxemic respiratory failure, multifactorial due to encephalopathy from suspected FILLING CARRIER infection/ acute lung injury from recent infection. 2. Tick-born illness suspected w/u negative for ehrlichia ,RMSF Ehrlichiae Ab neg RMSF neg, though need convalescent serology ,[place] IgG +, IgM neg, old exposure, HSV PCR neg, Arboviral panel not available, Enteroviral pcr not available 3. Fever. 4. Lactic acidosis. 5. Acute renal failure. 6. Acute hepatic injury. 7. Thrombocytopenia, improving. 8. Hemochromatosis. 9. ACUTE TOXIC MET ENCEPH POA 10 DYSPHAGIA 11.ENCEPHALITIS Plan . AC MODE FOR SUPPORT ABG ADEQUATE WEAN OFF SEDATION AND CONSIDER CPAP TRIAL IF AWAKE ANTIBX PER ID NUTRION PER TPN PT WITH ILEUS fu sputum cx difficult intubation, need upper airway test bf sbt when ready D/W RN, NOT READY FOR WEAN until encephalopathy resolves f/u cxr d/w family DYANA BERRY MD September 05, 2018 11:04
[2018-09-05] MEDS: HALOPERIDOL LACTATE 5 MG/ML VIAL. IVP PRN (22:28)
[2018-09-05] MEDS: FAMOTIDINE 20 MG/2 ML VIAL IVP SCH (22:28)
[2018-09-06] VITALS (23 sets, daily range): BP systolic 125–182; BP diastolic 65–98
[2018-09-06] MEDS: PIPERACILLIN/TAZOBACTAM 2.25 GM in IV NORMAL SALINE 50ML 50 ML IV SCH ×4 (00:11→17:49)
[2018-09-06] MEDS: PROPOFOL 100 ML IV PRN ×2 (03:04→08:14)
[2018-09-06] MEDS: HALOPERIDOL LACTATE 5 MG/ML VIAL. IVP PRN (05:53)
[2018-09-06 06:37] LABS: ALBUMIN 2.1 g/dL (3.4-5.0); CALCIUM 7.3 mg/dL (8.5-10.1); CREATININE 8.9 mg/dL (0.7-1.3); GFR 6.3; MAGNESIUM 2.3 mg/dL (1.8-2.4)
[2018-09-06 06:42] LABS: PHOSPHORUS 9.1 mg/dL (2.6-4.7)
[2018-09-06 06:43] LABS: POTASSIUM 5.7 mmol/L (3.5-5.1)
[2018-09-06] MEDS: IPRATRPIUM/ALBUTEROL 0.5/2.5MG 3 ML NEBU. NEB SCH ×4 (07:27→20:18)
--- NOTE | 2018-09-06 07:47 | PDOC ---
Infectious Disease Note Subjective: Subjective intubated ,sedated fever pattern improving Pt is been weaned off sedation D/W RN ROS: ROS Negative except for above. Vital Signs: Vital Signs Vital Signs Date Time Temp Pulse Resp B/P (MAP) Pulse Ox O2 Delivery O2 Flow Rate FiO2 09/06/18 07:27 99 Ventilator 09/06/18 07:00 89 18 182/86 (118) 09/06/18 04:00 99.3 99.3 Physical Exam: PHYSICAL EXAM GENERAL:sedated on vent HEENT: Pupils equally round, reactive. No conjunctivae petechia. ETT + NECK: Supple.HDC ,looks ok LUNGS: dec bs at bases HEART: S1 and S2. ABDOMEN: Obese, soft, nontender with bowel sounds present. rose in place ,minimal urine output EXTREMITIES:no edema,no cyanosis. SKIN: Warm without rash. Left knee has several scabs/scarring.healing NEUROLOGIC: sedated on vent,responds to tactile stimuli LUE midline looks ok Medications: Inpatient Meds: Current Medications Medications (Trade) Dose Ordered Sig/Noemi Start Time Stop Time Status Last Admin Dose Admin Acetaminophen (Tylenol Supp) 650 mg PRN Q6HRS PRN 08/27/18 21:15 09/02/18 01:18 650 MG Acetaminophen (Tylenol) 650 mg PRN Q6HRS PRN 08/27/18 21:15 Acyclovir Sodium 340 mg/Dextrose 106.8 ml @ 106.8 mls/ hr Q12HR 08/30/18 09:00 09/01/18 13:37 DC 09/01/18 11:05 106.8 MLS/HR Albumin Human 200 ml @ 200 mls/hr 1X PRN PRN 09/04/18 08:30 09/04/18 14:29 DC Albuterol/ Ipratropium (Duoneb) 3 ml 1X ONCE 09/01/18 01:00 09/01/18 01:01 DC 09/01/18 01:10 3 ML Atropine Sulfate (ATROPINE 0.5mg SYRINGE) 0.5 mg STK-MED ONCE 08/31/18 08:06 09/04/18 08:07 DC Atropine Sulfate (ATROPINE 1mg SYRINGE) 1 mg STK-MED ONCE 08/31/18 22:58 08/31/18 22:59 DC Aztreonam (Azactam) 2 gm 1X ONCE 08/25/18 21:15 08/25/18 21:16 DC 08/25/18 21:15 2 GM Benzocaine (Hurricaine One) 1 spray 1X STAT 08/28/18 10:16 08/28/18 10:19 DC 08/28/18 10:16 1 SPRAY Ceftriaxone Sodium (Rocephin) 1 gm 1X ONCE 08/25/18 20:30 08/25/18 20:31 DC 08/25/18 20:36 1 GM Chlorhexidine Gluconate (Peridex) 15 ml BID 09/01/18 09:00 09/05/18 22:28 15 ML Daptomycin 610 mg/ Sodium Chloride 50 ml @ 100 mls/hr Q48H 08/30/18 16:00 08/30/18 16:00 DC Darbepoetin Phil (Aranesp) 100 mcg WEEKLYHS 09/03/18 21:00 09/03/18 22:11 100 MCG Doxycycline Hyclate 100 mg/ Dextrose 100 ml @ 50 mls/hr Q12HR 08/26/18 09:00 09/04/18 08:11 DC 09/03/18 22:11 50 MLS/HR Epinephrine HCl (EPINEPHrine SYRINGE) 3 mg STK-MED ONCE 08/31/18 08:06 09/04/18 08:07 DC Famotidine (Pepcid Vial) 20 mg Q48H 09/03/18 21:00 09/05/18 22:28 20 MG Famotidine (Pepcid) 20 mg Q48H 08/29/18 09:00 08/29/18 11:29 DC Fentanyl Citrate 30 ml @ 0 mls/hr CONT PRN 09/01/18 00:00 09/05/18 18:10 2 MLS/HR Fentanyl Citrate (Fentanyl 2ml Vial) 50 mcg PRN Q4HRS PRN 08/28/18 15:30 09/05/18 02:11 DC 08/28/18 21:44 50 MCG Haloperidol (Haldol) 2 mg PRN QID PRN 08/31/18 08:00 08/31/18 12:43 DC Haloperidol Lactate (HALDOL 2mg ORAL CONC) 2 mg PRN QID PRN 08/31/18 12:43 Haloperidol Lactate (Haldol Inj) 5 mg PRN Q6HRS PRN 08/28/18 12:00 09/06/18 05:53 5 MG Heparin Sodium (Porcine) (Heparin Sodium) 10,000 unit STK-MED ONCE 08/26/18 12:49 08/26/18 12:50 DC Ibuprofen (Motrin) 600 mg 1X ONCE 08/25/18 19:45 08/25/18 19:49 DC 08/25/18 20:38 600 MG Info (PHARMACY MONITORING -- do not chart) 1 each PRN DAILY PRN 09/05/18 09:00 Info (Tpn Per Pharmacy) 1 each PRN DAILY PRN 08/30/18 12:45 09/04/18 12:50 DC 09/03/18 10:53 1 EACH Lactobacillus Rhamnosus (Culturelle) 1 cap BID 08/26/18 21:00 09/05/18 22:28 1 CAP Levofloxacin/ Dextrose 150 ml @ 100 mls/hr QODAY 09/04/18 09:00 09/04/18 08:46 100 MLS/HR Lidocaine HCl (Glydo (Lidocaine) Jelly) 1 kimberlee 1X STAT 08/28/18 10:16 08/28/18 10:19 DC 08/28/18 10:16 1 KIMBERLEE Lidocaine/Sodium Bicarbonate (Buffered Lidocaine 1%) 3 ml 1X ONCE 08/28/18 10:30 08/28/18 10:31 DC Linezolid/Dextrose 300 ml @ 300 mls/hr Q12HR 09/05/18 09:30 09/05/18 22:27 300 MLS/HR Magnesium Sulfate 50 ml @ 25 mls/hr 1X ONCE 08/25/18 21:15 08/25/18 23:14 DC 08/25/18 23:51 25 MLS/HR Meropenem 500 mg/ Sodium Chloride 50 ml @ 100 mls/hr DAILY 08/26/18 09:00 08/30/18 08:17 DC 08/29/18 10:13 100 MLS/HR Midazolam HCl 100 ml @ 0 mls/hr CONT PRN 09/01/18 00:00 Norepinephrine Bitartrate 250 ml @ 0 mls/hr CONT PRN 08/26/18 09:15 08/30/18 17:20 DC 08/27/18 10:21 1.88 MLS/HR Ondansetron HCl (Zofran) 4 mg PRN Q6HRS PRN 08/31/18 08:00 Piperacillin Sod/ Tazobactam Sod 2.25 gm/Sodium Chloride 50 ml @ 100 mls/hr Q6HRS 09/01/18 14:00 09/06/18 05:47 100 MLS/HR Piperacillin Sod/ Tazobactam Sod 4.5 gm/Sodium Chloride 100 ml @ 200 mls/hr 1X ONCE 08/25/18 21:15 08/25/18 21:44 DC Propofol 100 ml @ 0 mls/hr CONT PRN 09/01/18 00:00 09/06/18 03:04 12.271 MLS/HR Sodium Bicarbonate (Sodium Bicarb Adult 8.4% Syr) 100 meq STK-MED ONCE 08/31/18 08:06 09/04/18 08:07 DC Sodium Chloride 1,000 ml @ 400 mls/hr Q2H30M PRN 09/05/18 08:51 09/05/18 20:50 DC Sodium Chloride (Normal Saline Flush) 10 ml 1X PRN PRN 09/05/18 09:00 09/06/18 08:59 Sodium Chloride 90 meq/Potassium Chloride 50 meq/ Potassium Phosphate 10 mmol/ Calcium Gluconate 10 meq/ Multivitamins 10 ml/Chromium/ Copper/Manganese/ Seleni/Zn 1 ml/ Total Parenteral Nutrition/Amino Acids/Dextrose 1,512 ml @ 63 mls/hr TPN CONT 09/01/18 22:00 09/02/18 21:59 DC 09/01/18 22:11 63 MLS/HR Sodium Chloride 90 meq/Potassium Chloride 50 meq/ Potassium Phosphate 3 mmol/ Magnesium Sulfate 10 meq/Calcium Gluconate 10 meq/ Multivitamins 10 ml/Chromium/ Copper/Manganese/ Seleni/Zn 1 ml/ Total Parenteral Nutrition/Amino Acids/Dextrose/ Fat Emulsion Intravenous 1,512 ml @ 63 mls/hr TPN CONT 08/30/18 22:00 08/31/18 21:59 DC 08/30/18 21:40 63 MLS/HR Sodium Chloride 90 meq/Potassium Chloride 50 meq/ Potassium Phosphate 5 mmol/ Magnesium Sulfate 3 meq/Calcium Gluconate 10 meq/ Multivitamins 10 ml/Chromium/ Copper/Manganese/ Seleni/Zn 1 ml/ Total Parenteral Nutrition/Amino Acids/Dextrose 1,512 ml @ 63 mls/hr TPN CONT 08/31/18 22:00 09/01/18 21:59 DC 08/31/18 20:59 63 MLS/HR Sodium Chloride 110 meq/Potassium Chloride 50 meq/ Potassium Phosphate 10 mmol/ Calcium Gluconate 10 meq/ Multivitamins 10 ml/Chromium/ Copper/Manganese/ Seleni/Zn 1 ml/ Magnesium Sulfate 3 meq/Total Parenteral Nutrition/Amino Acids/Dextrose 1,512 ml @ 63 mls/hr TPN CONT 09/02/18 22:00 09/03/18 21:59 DC 09/02/18 22:13 63 MLS/HR Sodium Chloride 130 meq/Potassium Acetate 20 meq/ Calcium Gluconate 10 meq/ Multivitamins 10 ml/Chromium/ Copper/Manganese/ Seleni/Zn 1 ml/ Magnesium Sulfate 3 meq/Total Parenteral Nutrition/Amino Acids/Dextrose 1,512 ml @ 63 mls/hr TPN CONT 09/03/18 22:00 09/04/18 21:59 DC 09/03/18 22:12 63 MLS/HR Succinylcholine Chloride (Anectine) 200 mg 1X ONCE 09/01/18 01:15 09/01/18 01:16 DC 08/31/18 23:04 200 MG Vancomycin HCl 2 gm/Sodium Chloride 500 ml @ 250 mls/hr 1X ONCE 08/25/18 21:30 08/25/18 23:29 DC 08/25/18 23:10 250 MLS/HR Labs: Lab Laboratory Tests Test 09/05/18 08:25 09/05/18 09:35 09/06/18 05:40 Platelet Count 175 x10^3/uL (140-400) Prothrombin Time 14.0 SEC (11.7-14.0) Prothromb Time International Ratio 1.1 (0.8-1.1) Activated Partial Thromboplast Time 29 SEC (24-38) Fibrinogen 495 mg/dL (200-440) D-Dimer ([place]) 3.59 ug/mlFEU (0.00-0.50) O2 Saturation 96 % (92-99) Arterial Blood pH 7.40 (7.35-7.45) Arterial Blood pCO2 at Patient Temp 36 mmHg (35-46) Arterial Blood pO2 at Patient Temp 99 mmHg (75-108) Arterial Blood HCO3 22 mmol/L (21-28) Arterial Blood Base Excess -3 mmol/L (-3-3) FiO2 35 Sodium Level 135 mmol/L (136-145) Potassium Level 5.7 mmol/L (3.5-5.1) Chloride Level 96 mmol/L (98-107) Carbon Dioxide Level 21 mmol/L (21-32) Anion Gap 18 (6-14) Blood Urea Nitrogen 90 mg/dL (8-26) Creatinine 8.9 mg/dL (0.7-1.3) Estimated GFR (Cockcroft-Gault) 6.3 Glucose Level 115 mg/dL (70-99) Calcium Level 7.3 mg/dL (8.5-10.1) Phosphorus Level 9.1 mg/dL (2.6-4.7) Magnesium Level 2.3 mg/dL (1.8-2.4) Albumin 2.1 g/dL (3.4-5.0) Micro BC negative RUN DATE: 09/06/18 PAGE 1 RUN TIME: 717 [facility] [address] [place] [address] Dino Aguirre M.D., Guest Relation Officer PATIENT: RD ALEGRIAREY Criselda ACCT: [id number] LOC: 1 [place] ICU U: [id number] AGE/SX: 52/M ROOM: 111 RE08/25/[address]: EVGENY PARKER MD : 1965 BED: 1 DIS: STATUS: ADM IN TLOC: SPEC #: [id number] ADRIANNE: 09/01/18 STATUS: MARTIN REQ #: [id number] RECD: 09/01/[address] [facility] [address]: MIGUEL A LAST MD SOURCE: SPUTUM ENTR: 09/01/[address]: MERT GALEAS MD [facility]: KELBY PARKER MD,EVGENY MCKEON,KAVYA AMBROSE,TR HOPE,KRISSY ROBERSON,SOFIA DENNIS,ANISH LEDESMA,KAVYA Ceballos MD UNKNOWN PCP NAME ORDERED: SPUTUM CULTURE Procedure Result GRAM STAIN WHITE BLOOD CELLS Final Few GRAM STAIN EPITHELIAL CELLS Final Few GRAM STAIN RESULT 1 Final No organisms seen GRAM STAIN EVALUATION Final Comment This specimen is of good quality and is acceptable for routine bacterial culture. Performed at: [address] [id number] Financial Wellness Coach: CANDIDA Ramírez MD, Phone: [phone] SPUTUM CULTURE- Final Preliminary report SPUTUM CULT RES 1 Final Comment Routine respiratory lizz Performed at: [address] [id number] Financial Wellness Coach: CANDIDA Ramírez MD, Phone: [phone] Objective: Assessment: Tick-born illness suspected w/u negative for ehrlichia RMSF neg, though need convalescent serology [place] IgG +, IgM neg, old exposure HSV PCR neg Arboviral panel not available Enteroviral pcr not available Lactic acidosis Bandemia resolved leucocytosis resolved Acute hepatic injury requiring HD RADHA (Recent Bactrim/ibuprofen) Thrombocytopenia resolved Hemochromatosis, followed by [facility] Diarrhea, resolved Dermatitis RLE improved encephalopathy waxing and waning etiology unclear MRI neg CSF pleocytosis ,cultures and serologies negative FOB positive Febrile again Concern for RAFI vs noninfectious etiologies Rt IJ removed 09/04 Plan: Plan of Care cont levaquin , zosyn,linezolid f/u repeat cults and labs in am cont supportive care D/w D/w nursing JEFF PARKER MD September 06, 2018 07:47
--- NOTE | 2018-09-06 08:04 | RAD ---
Portable chest, 09/06/2018: HISTORY: Patient on ventilator Comparison is made to yesterday's study. The ET tube tip lies well above the melissa. An NG tube extends into the stomach. The right jugular dialysis type catheter extends into the inferior aspect of the superior vena cava. The right PICC appears to extend into the right atrium although its tip is not clearly visualized. The heart is mildly enlarged and unchanged. The pulmonary vascularity appears congested with loss of vascular margination There are ongoing basilar opacities, left greater than right, suggesting pleural fluid and underlying atelectasis/infiltrate. Similar findings were present on yesterday's study. No new abnormality is detected. IMPRESSION: No significant change since yesterday's exam. Electronically signed by: Jose Hudson MD (09/06/2018 8:01 AM) [facility]
[2018-09-06] MEDS: CHLORHEXIDINE 0.12% 15 ML MOUTHWASH. MM SCH ×2 (08:12→22:46)
[2018-09-06] MEDS: LACTOBACILLUS RHAMNOSUS GG 1 CAPSULE. PO SCH ×2 (08:12→22:46)
--- NOTE | 2018-09-06 08:37 | NUR ---
Patient was not dialyized yesterday as planned, pricer RN unsure of reason. Miriam with dialysis called day shift RN yesterday to let me know that patient was on dialysis schedule, RN did not receive any further notification that patient would not be dialyized as planned. Attempted to reach dialysis department, no response. Dr. Fishman's office paged. Valeriy from dialysis returned page, he will be here today to see patient. Addendum: 09/06/18 at 0916 by DAVIDE VALADEZ RN Spoke with Dr. Fishman. He cancelled dialysis yesterday, but this information was not communicated to the RN or the ICU Charge. Patient will be dialized today, spoke with Miriam in dialysis to confirm. RM discussed plan for dialysis today with at bedside.
--- NOTE | 2018-09-06 08:57 | PDOC ---
PROGRESS NOTES Subjective Subjective HPI - f/u of Thrombocytopenia ROS - no fever Objective Objective Vital Signs Date Time Temp Pulse Resp B/P (MAP) Pulse Ox O2 Delivery O2 Flow Rate FiO2 09/06/18 07:27 99 Ventilator 09/06/18 07:00 89 18 182/86 (118) 09/06/18 04:00 99.3 99.3 09/05/18 04:51 15.0 Intake and Output 09/06/18 07:00 Intake Total 2445.2 ml Output Total 38 ml Balance 2407.2 ml IV Total 752.2 ml Tube Feeding 1593 ml Other 100 ml Output Urine Total 38 ml Gastric Drainage Total 0 ml Physical Exam Heart: Normal S1, Normal S2 Lungs: Clear to auscultation Assessment Assessment Problems Medical Problems: (1) Acute renal failure Status: Acute Assessment/Plan 52 yo male presents with week long history of fever and found to have thrombocytopenia, ARF, elevated LFTs 1. Septic shock - Fever - Tick borne illness suspected. I d/w Dr Lujan. Improving. Per ID: d/c dapto and cont doxycycline. d/c meropenem, add acyclovir 2. Dehydration 3. Acute renal failure 4. Elevated LFTs 5. Thrombocytopenia due to sepsis, no clinical evidence of TTP, no evidence of schistocytes, normal retic and haptoglobin and Hb. He should be transfused plts if his plt count <10 or he develops active bleeding. Plt better at 30 on 08/27/18. Plt better at 47 on 08/28/18, Plt better at 58 on 08/29/18 Plt better at 67 on 08/30/18. Plt better at 73 on 08/31/18 Plt better at 139 on 09/04/18, Plt normal at 175, Monitor cbc. 6. Resp failure, on vent, management per pulm. Comment Review of Relevant I have reviewed the following items gera (where applicable) has been applied. Labs Laboratory Tests Test 09/05/18 03:45 09/05/18 08:25 09/05/18 09:35 09/06/18 05:40 White Blood Count 7.9 x10^3/uL (4.0-11.0) Red Blood Count 2.65 x10^6/uL (4.30-5.70) Hemoglobin 7.8 g/dL (13.0-17.5) Hematocrit 22.8 % (39.0-53.0) Mean Corpuscular Volume 86 fL (79-100) Mean Corpuscular Hemoglobin 29 pg (25-35) Mean Corpuscular Hemoglobin Concent 34 g/dL (31-37) Red Cell Distribution Width 17.8 % (11.5-14.5) Platelet Count 182 x10^3/uL (140-400) 175 x10^3/uL (140-400) Sodium Level 136 mmol/L (136-145) 135 mmol/L (136-145) Potassium Level 5.1 mmol/L (3.5-5.1) 5.7 mmol/L (3.5-5.1) Chloride Level 99 mmol/L (98-107) 96 mmol/L (98-107) Carbon Dioxide Level 24 mmol/L (21-32) 21 mmol/L (21-32) Anion Gap 13 (6-14) 18 (6-14) Blood Urea Nitrogen 56 mg/dL (8-26) 90 mg/dL (8-26) Creatinine 6.4 mg/dL (0.7-1.3) 8.9 mg/dL (0.7-1.3) Estimated GFR (Cockcroft-Gault) 9.2 6.3 Glucose Level 122 mg/dL (70-99) 115 mg/dL (70-99) Calcium Level 7.8 mg/dL (8.5-10.1) 7.3 mg/dL (8.5-10.1) Phosphorus Level 5.2 mg/dL (2.6-4.7) 9.1 mg/dL (2.6-4.7) Albumin 2.1 g/dL (3.4-5.0) 2.1 g/dL (3.4-5.0) Prothrombin Time 14.0 SEC (11.7-14.0) Prothromb Time International Ratio 1.1 (0.8-1.1) Activated Partial Thromboplast Time 29 SEC (24-38) Fibrinogen 495 mg/dL (200-440) D-Dimer ([place]) 3.59 ug/mlFEU (0.00-0.50) O2 Saturation 96 % (92-99) Arterial Blood pH 7.40 (7.35-7.45) Arterial Blood pCO2 at Patient Temp 36 mmHg (35-46) Arterial Blood pO2 at Patient Temp 99 mmHg (75-108) Arterial Blood HCO3 22 mmol/L (21-28) Arterial Blood Base Excess -3 mmol/L (-3-3) FiO2 35 Magnesium Level 2.3 mg/dL (1.8-2.4) Laboratory Tests Test 09/05/18 09:35 09/06/18 05:40 O2 Saturation 96 % (92-99) Arterial Blood pH 7.40 (7.35-7.45) Arterial Blood pCO2 at Patient Temp 36 mmHg (35-46) Arterial Blood pO2 at Patient Temp 99 mmHg (75-108) Arterial Blood HCO3 22 mmol/L (21-28) Arterial Blood Base Excess -3 mmol/L (-3-3) FiO2 35 Sodium Level 135 mmol/L (136-145) Potassium Level 5.7 mmol/L (3.5-5.1) Chloride Level 96 mmol/L (98-107) Carbon Dioxide Level 21 mmol/L (21-32) Anion Gap 18 (6-14) Blood Urea Nitrogen 90 mg/dL (8-26) Creatinine 8.9 mg/dL (0.7-1.3) Estimated GFR (Cockcroft-Gault) 6.3 Glucose Level 115 mg/dL (70-99) Calcium Level 7.3 mg/dL (8.5-10.1) Phosphorus Level 9.1 mg/dL (2.6-4.7) Magnesium Level 2.3 mg/dL (1.8-2.4) Albumin 2.1 g/dL (3.4-5.0) Microbiology 09/04/18 Blood Culture - Preliminary, Resulted NO GROWTH AFTER 2 DAYS 08/29/18 CSF Gram Stain - Final, Complete 08/27/18 Stool Culture - Final, Complete 08/27/18 Stool Culture Result 1 (LOTUS) - Final, Complete 08/27/18 Campylobacter Antigen Assay - Final, Complete 08/27/18 Campylobactor Result 1 - Final, Complete 08/27/18 Shiga Toxin Test - Final, Complete 09/01/18 - Final, Complete 09/01/18 - Final, Complete 09/01/18 - Final, Complete 09/01/18 Gram Stain Evaluation - Final, Complete 09/01/18 Sputum Culture - Final, Complete 09/01/18 Sputum Result 1 - Final, Complete Medications Current Medications Sodium Chloride 1,000 ml @ 1,000 mls/hr 1X ONCE IV Last administered on 08/25/18 20:38; Start 08/25/18 at 19:15; Stop 08/25/18 at 20:14; Status DC Ibuprofen (Motrin) 600 mg 1X ONCE PO Last administered on 08/25/18 20:38; Start 08/25/18 at 19:45; Stop 08/25/18 at 19:49; Status DC Sodium Chloride 1,000 ml @ 1,000 mls/hr 1X ONCE IV Last administered on 08/25/18 20:30; Start 08/25/18 at 20:30; Stop 08/25/18 at 21:29; Status DC Ceftriaxone Sodium (Rocephin) 1 gm 1X ONCE IVP Last administered on 08/25/18at 20:36; Start 08/25/18 at 20:30; Stop 08/25/18 at 20:31; Status DC Vancomycin HCl 2 gm/Sodium Chloride 500 ml @ 250 mls/hr 1X ONCE IV Last administered on 08/25/18at 23:10; Start 08/25/18 at 21:30; Stop 08/25/18 at 23:29; Status DC Sodium Chloride 1,000 ml @ 1,000 mls/hr 1X ONCE IV Last administered on 08/25/18at 23:51; Start 08/25/18 at 21:00; Stop 08/25/18 at 21:59; Status DC Piperacillin Sod/ Tazobactam Sod 4.5 gm/Sodium Chloride 100 ml @ 200 mls/hr 1X ONCE IV ; Start 08/25/18 at 21:15; Stop 08/25/18 at 21:44; Status DC Aztreonam (Azactam) 2 gm 1X ONCE IVP Last administered on 08/25/18at 21:15; Start 08/25/18 at 21:15; Stop 08/25/18 at 21:16; Status DC Magnesium Sulfate 50 ml @ 25 mls/hr 1X ONCE IV Last administered on 08/25/18at 23:51; Start 08/25/18 at 21:15; Stop 08/25/18 at 23:14; Status DC Ondansetron HCl (Zofran) 4 mg PRN Q8HRS PRN IV NAUSEA/VOMITING; Start 08/25/18 at 21:15; Stop 08/26/18 at 21:14; Status DC Acetaminophen (Tylenol) 650 mg PRN Q4HRS PRN PO FEVER; Start 08/25/18 at 21:15; Stop 08/26/18 at 21:14; Status DC Sodium Chloride 1,000 ml @ 125 mls/hr 1X ONCE IV Last administered on 08/25/18at 23:09; Start 08/25/18 at 21:15; Stop 08/26/18 at 05:14; Status DC Daptomycin 610 mg/ Sodium Chloride 50 ml @ 100 mls/hr QODAY IV Last administered on 08/27/18at 08:59; Start 08/27/18 at 09:00; Stop 08/28/18 at 15:40; Status DC Meropenem 500 mg/ Sodium Chloride 50 ml @ 100 mls/hr 1X ONCE IV Last administered on 08/25/18at 22:12; Start 08/25/18 at 22:00; Stop 08/25/18 at 22:29; Status DC Doxycycline Hyclate 100 mg/ Dextrose 100 ml @ 50 mls/hr Q12HR IV Last administered on 09/03/18at 22:11; Start 08/26/18 at 09:00; Stop 09/04/18 at 08:11; Status DC Meropenem 500 mg/ Sodium Chloride 50 ml @ 100 mls/hr DAILY IV Last administered on 08/29/18at 10:13; Start 08/26/18 at 09:00; Stop 08/30/18 at 08:17; Status DC Sodium Chloride (Normal Saline Flush) 10 ml QSHIFT PRN IV AFTER MEDS AND BLOOD DRAWS; Start 08/26/18 at 09:15 Norepinephrine Bitartrate 250 ml @ 0 mls/hr CONT PRN IV PER PROTOCOL Last administered on 08/27/18at 10:21; Start 08/26/18 at 09:15; Stop 08/30/18 at 17:20; Status DC Famotidine (Pepcid) 20 mg DAILY PO Last administered on 08/27/18at 08:14; Start 08/26/18 at 12:00; Stop 08/27/18 at 14:36; Status DC Sodium Chloride 1,000 ml @ 1,000 mls/hr Q1H PRN IV hypotension; Start 08/26/18 at 11:51; Stop 08/26/18 at 17:50; Status DC Sodium Chloride (Normal Saline Flush) 10 ml 1X PRN PRN IV AP catheter pack; Start 08/26/18 at 12:00; Stop 08/27/18 at 11:59; Status DC Sodium Chloride (Normal Saline Flush) 10 ml 1X PRN PRN IV AUTOMATIC BUFFING WHEEL FORMER catheter pack; Start 08/26/18 at 12:00; Stop 08/27/18 at 11:59; Status DC Sodium Chloride 1,000 ml @ 400 mls/hr Q2H30M PRN IV PATENCY; Start 08/26/18 at 11:51; Stop 08/26/18 at 23:50; Status DC Info (PHARMACY MONITORING -- do not chart) 1 each PRN DAILY PRN MC SEE COMMENTS; Start 08/26/18 at 12:00; Status UNV Info (PHARMACY MONITORING -- do not chart) 1 each PRN DAILY PRN MC SEE COMMENTS; Start 08/26/18 at 12:00; Stop 09/01/18 at 10:59; Status DC Lidocaine/Sodium Bicarbonate (Buffered Lidocaine 1%) 4 ml 1X ONCE INJ Last administered on 08/26/18at 12:45; Start 08/26/18 at 12:45; Stop 08/26/18 at 12:48; Status DC Heparin Sodium (Porcine) (Heparin Sodium) 2,500 unit 1X ONCE INT CAT Last administered on 08/26/18at 12:45; Start 08/26/18 at 12:45; Stop 08/26/18 at 12:48; Status DC Lidocaine/Sodium Bicarbonate (Buffered Lidocaine 1%) 3 ml STK-MED ONCE .ROUTE ; Start 08/26/18 at 12:49; Stop 08/26/18 at 12:50; Status DC Heparin Sodium (Porcine) (Heparin Sodium) 10,000 unit STK-MED ONCE .ROUTE ; Start 08/26/18 at 12:49; Stop 08/26/18 at 12:50; Status DC Lactobacillus Rhamnosus (Culturelle) 1 cap BID PO Last administered on 09/06/18at 08:12; Start 08/26/18 at 21:00 Acetaminophen (Tylenol) 325 mg STK-MED ONCE PO ; Start 08/27/18 at 00:43; Stop 08/27/18 at 00:44; Status DC Sodium Chloride 1,000 ml @ 1,000 mls/hr 1X ONCE IV Last administered on 08/27/18at 11:05; Start 08/27/18 at 10:30; Stop 08/27/18 at 11:29; Status DC Sodium Chloride 1,000 ml @ 1,000 mls/hr Q1H PRN IV hypotension; Start 08/27/18 at 11:28; Stop 08/27/18 at 17:27; Status DC Albumin Human 200 ml @ 200 mls/hr 1X PRN PRN IV Hypotension; Start 08/27/18 at 11:30; Stop 08/27/18 at 17:29; Status DC Sodium Chloride (Normal Saline Flush) 10 ml 1X PRN PRN IV AP catheter pack; Start 08/27/18 at 11:30; Stop 08/28/18 at 11:29; Status DC Sodium Chloride (Normal Saline Flush) 10 ml 1X PRN PRN IV AUTOMATIC BUFFING WHEEL FORMER catheter pack; Start 08/27/18 at 11:30; Stop 08/28/18 at 11:29; Status DC Sodium Chloride 1,000 ml @ 400 mls/hr Q2H30M PRN IV PATENCY; Start 08/27/18 at 11:28; Stop 08/27/18 at 23:27; Status DC Info (PHARMACY MONITORING -- do not chart) 1 each PRN DAILY PRN MC SEE COMMENTS; Start 08/27/18 at 11:30; Status UNV Info (PHARMACY MONITORING -- do not chart) 1 each PRN DAILY PRN MC SEE COMMENTS; Start 08/27/18 at 11:30; Status UNV Famotidine (Pepcid) 20 mg Q48H PO ; Start 08/29/18 at 09:00; Stop 08/29/18 at 11:29; Status DC Acetaminophen (Tylenol) 650 mg PRN Q6HRS PRN PO pain/fever; Start 08/27/18 at 21:15 Acetaminophen (Tylenol Supp) 650 mg PRN Q6HRS PRN GA MILD PAIN / TEMP Last administered on 09/02/18at 01:18; Start 08/27/18 at 21:15 Fentanyl Citrate (Fentanyl 2ml Vial) 25 mcg 1X ONCE IV Last administered on 08/28/18at 08:54; Start 08/28/18 at 08:45; Stop 08/28/18 at 08:47; Status DC Lidocaine/Sodium Bicarbonate (Buffered Lidocaine 1%) 3 ml STK-MED ONCE .ROUTE ; Start 08/28/18 at 09:55; Stop 08/28/18 at 09:56; Status DC Lidocaine HCl (Glydo (Lidocaine) Jelly) 1 meng 1X STAT MM Last administered on 08/28/18at 10:16; Start 08/28/18 at 10:16; Stop 08/28/18 at 10:19; Status DC Benzocaine (Hurricaine One) 1 spray 1X STAT MM Last administered on 08/28/18at 10:16; Start 08/28/18 at 10:16; Stop 08/28/18 at 10:19; Status DC Lidocaine/Sodium Bicarbonate (Buffered Lidocaine 1%) 3 ml 1X ONCE INJ ; Start 08/28/18 at 10:30; Stop 08/28/18 at 10:31; Status DC Haloperidol Lactate (Haldol Inj) 5 mg PRN Q6HRS PRN IVP AGITATION Last administered on 09/06/18at 05:53; Start 08/28/18 at 12:00 Fentanyl Citrate (Fentanyl 2ml Vial) 50 mcg PRN Q4HRS PRN IV PAIN Last administered on 08/28/18at 21:44; Start 08/28/18 at 15:30; Stop 09/05/18 at 02:11; Status DC Sodium Chloride 1,000 ml @ 1,000 mls/hr Q1H PRN IV hypotension; Start 08/28/18 at 14:00; Stop 08/28/18 at 19:59; Status DC Albumin Human 200 ml @ 200 mls/hr 1X PRN PRN IV Hypotension Last administered on 08/28/18at 14:50; Start 08/28/18 at 14:00; Stop 09/03/18 at 18:17; Status DC Sodium Chloride 1,000 ml @ 400 mls/hr Q2H30M PRN IV PATENCY; Start 08/28/18 at 14:00; Stop 08/29/18 at 01:59; Status DC Info (PHARMACY MONITORING -- do not chart) 1 each PRN DAILY PRN MC SEE COMMENTS; Start 08/28/18 at 15:30; Status UNV Info (PHARMACY MONITORING -- do not chart) 1 each PRN DAILY PRN MC SEE COMMENTS; Start 08/28/18 at 15:30; Status UNV Daptomycin 610 mg/ Sodium Chloride 50 ml @ 100 mls/hr Q48H IV ; Start 08/30/18 at 16:00; Stop 08/30/18 at 16:00; Status DC Famotidine (Pepcid Vial) 20 mg QHS IVP Last administered on 08/31/18at 20:59; Start 08/29/18 at 21:00; Stop 09/01/18 at 11:00; Status DC Acyclovir Sodium 340 mg/Dextrose 106.8 ml @ 106.8 mls/ hr Q12HR IV Last administered on 09/01/18at 11:05; Start 08/30/18 at 09:00; Stop 09/01/18 at 13:37; Status DC Sodium Chloride 1,000 ml @ 1,000 mls/hr Q1H PRN IV hypotension; Start 08/30/18 at 11:02; Stop 08/30/18 at 17:01; Status DC Sodium Chloride 1,000 ml @ 400 mls/hr Q2H30M PRN IV PATENCY; Start 08/30/18 at 11:02; Stop 08/30/18 at 23:01; Status DC Info (PHARMACY MONITORING -- do not chart) 1 each PRN DAILY PRN MC SEE COMMENTS; Start 08/30/18 at 11:15; Status UNV Info (PHARMACY MONITORING -- do not chart) 1 each PRN DAILY PRN MC SEE COMMENTS; Start 08/30/18 at 11:15; Status UNV Info (Tpn Per Pharmacy) 1 each PRN DAILY PRN MC SEE COMMENTS Last administered on 09/03/18at 10:53; Start 08/30/18 at 12:45; Stop 09/04/18 at 12:50; Status DC Sodium Chloride 90 meq/Potassium Chloride 50 meq/ Potassium Phosphate 3 mmol/ Magnesium Sulfate 10 meq/Calcium Gluconate 10 meq/ Multivitamins 10 ml/Chromium/ Copper/Manganese/ Seleni/Zn 1 ml/ Total Parenteral Nutrition/Amino Acids/Dextrose/ Fat Emulsion Intravenous 1,512 ml @ 63 mls/hr TPN CONT IV Last administered on 08/30/18at 21:40; Start 08/30/18 at 22:00; Stop 08/31/18 at 21:59; Status DC Ondansetron HCl (Zofran) 4 mg PRN Q6HRS PRN IV NAUSEA/VOMITING; Start 08/31/18 at 08:00 Haloperidol (Haldol) 2 mg PRN QID PRN PO AGITATION; Start 08/31/18 at 08:00; Stop 08/31/18 at 12:43; Status DC Haloperidol Lactate (HALDOL 2mg ORAL CONC) 2 mg PRN QID PRN PO AGITATION; Start 08/31/18 at 12:43 Sodium Chloride 90 meq/Potassium Chloride 50 meq/ Potassium Phosphate 5 mmol/ Magnesium Sulfate 3 meq/Calcium Gluconate 10 meq/ Multivitamins 10 ml/Chromium/ Copper/Manganese/ Seleni/Zn 1 ml/ Total Parenteral Nutrition/Amino Acids/Dextrose 1,512 ml @ 63 mls/hr TPN CONT IV Last administered on 08/31/18at 20:59; Start 08/31/18 at 22:00; Stop 09/01/18 at 21:59; Status DC Propofol 100 ml @ As Directed STK-MED ONCE IV ; Start 08/31/18 at 22:45; Stop 08/31/18 at 22:46; Status DC Succinylcholine Chloride (Anectine) 200 mg STK-MED ONCE .ROUTE ; Start 08/31/18 at 22:46; Stop 08/31/18 at 22:47; Status DC Atropine Sulfate (ATROPINE 1mg SYRINGE) 1 mg STK-MED ONCE .ROUTE ; Start 08/31/18 at 22:58; Stop 08/31/18 at 22:59; Status DC Fentanyl Citrate 30 ml @ 0 mls/hr CONT PRN IV SEE PROTOCOL Last administered on 09/05/18at 18:10; Start 09/01/18 at 00:00 Propofol 100 ml @ 0 mls/hr CONT PRN IV SEE PROTOCOL Last administered on 09/06/18at 08:14; Start 09/01/18 at 00:00 Chlorhexidine Gluconate (Peridex) 15 ml BID MM Last administered on 09/06/18at 08:12; Start 09/01/18 at 09:00 Midazolam HCl 100 ml @ 0 mls/hr CONT PRN IV SEE PROTOCOL; Start 09/01/18 at 00:00 Albuterol/ Ipratropium (Duoneb) 3 ml RTQID NEB Last administered on 09/06/18at 07:27; Start 09/01/18 at 08:00 Albuterol/ Ipratropium (Duoneb) 3 ml 1X ONCE NEB Last administered on 09/01/18at 01:10; Start 09/01/18 at 01:00; Stop 09/01/18 at 01:01; Status DC Succinylcholine Chloride (Anectine) 200 mg 1X ONCE IV Last administered on 08/31/18at 23:04; Start 09/01/18 at 01:15; Stop 09/01/18 at 01:16; Status DC Sodium Chloride 1,000 ml @ 1,000 mls/hr Q1H PRN IV hypotension; Start 09/01/18 at 07:00; Stop 09/01/18 at 12:59; Status DC Sodium Chloride (Normal Saline Flush) 10 ml 1X PRN PRN IV AP catheter pack; Start 09/01/18 at 07:00; Stop 09/02/18 at 06:59; Status DC Sodium Chloride (Normal Saline Flush) 10 ml 1X PRN PRN IV AUTOMATIC BUFFING WHEEL FORMER catheter pack; Start 09/01/18 at 07:00; Stop 09/02/18 at 06:59; Status DC Sodium Chloride 1,000 ml @ 400 mls/hr Q2H30M PRN IV PATENCY; Start 09/01/18 at 07:00; Stop 09/01/18 at 18:59; Status DC Info (PHARMACY MONITORING -- do not chart) 1 each PRN DAILY PRN MC SEE COMMENTS; Start 09/01/18 at 11:00; Status Cancel Info (PHARMACY MONITORING -- do not chart) 1 each PRN DAILY PRN MC SEE COMMENTS; Start 09/01/18 at 11:00; Status Cancel Famotidine (Pepcid Vial) 20 mg Q48H IVP Last administered on 09/05/18at 22:28; Start 09/03/18 at 21:00 Sodium Chloride 90 meq/Potassium Chloride 50 meq/ Potassium Phosphate 10 mmol/ Calcium Gluconate 10 meq/ Multivitamins 10 ml/Chromium/ Copper/Manganese/ Seleni/Zn 1 ml/ Total Parenteral Nutrition/Amino Acids/Dextrose 1,512 ml @ 63 mls/hr TPN CONT IV Last administered on 09/01/18at 22:11; Start 09/01/18 at 22:00; Stop 09/02/18 at 21:59; Status DC Piperacillin Sod/ Tazobactam Sod 2.25 gm/Sodium Chloride 50 ml @ 100 mls/hr Q6HRS IV Last administered on 09/06/18at 05:47; Start 09/01/18 at 14:00 Sodium Chloride 110 meq/Potassium Chloride 50 meq/ Potassium Phosphate 10 mmol/ Calcium Gluconate 10 meq/ Multivitamins 10 ml/Chromium/ Copper/Manganese/ Seleni/Zn 1 ml/ Magnesium Sulfate 3 meq/Total Parenteral Nutrition/Amino Acids/Dextrose 1,512 ml @ 63 mls/hr TPN CONT IV Last administered on 09/02/18at 22:13; Start 09/02/18 at 22:00; Stop 09/03/18 at 21:59; Status DC Darbepoetin Phil (Aranesp) 100 mcg [id number] SQ Last administered on 09/03/18at 22:11; Start 09/03/18 at 21:00 Sodium Chloride 130 meq/Potassium Acetate 20 meq/ Calcium Gluconate 10 meq/ Multivitamins 10 ml/Chromium/ Copper/Manganese/ Seleni/Zn 1 ml/ Magnesium Sulfate 3 meq/Total Parenteral Nutrition/Amino Acids/Dextrose 1,512 ml @ 63 mls/hr TPN CONT IV Last administered on 09/03/18at 22:12; Start 09/03/18 at 22:00; Stop 09/04/18 at 21:59; Status DC Albumin Human 200 ml @ 200 mls/hr 1X PRN PRN IV Hypotension; Start 09/03/18 at 10:00; Stop 09/03/18 at 21:00; Status DC Sodium Chloride (Normal Saline Flush) 10 ml 1X PRN PRN IV AP catheter pack; Start 09/03/18 at 10:00; Stop 09/03/18 at 21:00; Status DC Sodium Chloride (Normal Saline Flush) 10 ml 1X PRN PRN IV AUTOMATIC BUFFING WHEEL FORMER catheter pack; St art 09/03/18 at 10:00; Stop 09/03/18 at 21:00; Status DC Sodium Chloride 1,000 ml @ 400 mls/hr Q2H30M PRN IV PATENCY; Start 09/03/18 at 10:00; Stop 09/03/18 at 21:59; Status DC Info (PHARMACY MONITORING -- do not chart) 1 each PRN DAILY PRN MC SEE SOFIA NTS; Start 09/03/18 at 18:15; Status UNV Atropine Sulfate (ATROPINE 0.5mg SYRINGE) 0.5 mg STK-MED ONCE .ROUTE ; Start 08/31/18 at 08:06; Stop 09/04/18 at 08:07; Status DC Epinephrine HCl (EPINEPHrine SYRINGE) 3 mg STK-MED ONCE .ROUTE ; Start 08/31/18 at 08:06; Stop 09/04/18 at 08:07; Status DC Sodium Bicarbonate (Sodium Bicarb Adult 8.4% Syr) 100 meq STK-MED ONCE .ROUTE ; Start 08/31/18 at 08:06; Stop 09/04/18 at 08:07; Status DC Levofloxacin/ Dextrose 150 ml @ 100 mls/hr QODAY IV Last administered on 09/04/18at 08:46; Start 09/04/18 at 09:00 Sodium Chloride 1,000 ml @ 1,000 mls/hr Q1H PRN IV hypotension; Start 09/04/18 at 08:23; Stop 09/04/18 at 14:24; Status DC Albumin Human 200 ml @ 200 mls/hr 1X PRN PRN IV Hypotension; Start 09/04/18 at 08:30; Stop 09/04/18 at 14:29; Status DC Sodium Chloride 1,000 ml @ 400 mls/hr Q2H30M PRN IV PATENCY; Start 09/04/18 at 08:23; Stop 09/04/18 at 20:22; Status DC Info (PHARMACY MONITORING -- do not chart) 1 each PRN DAILY PRN MC SEE COMMENTS; Start 09/04/18 at 08:30; Stop 09/05/18 at 08:55; Status DC Info (PHARMACY MONITORING -- do not chart) 1 each PRN DAILY PRN MC SEE COMMENTS; Start 09/04/18 at 08:30; Status UNV Linezolid/Dextrose 300 ml @ 300 mls/hr Q12HR IV Last administered on 09/06/18at 08:13; Start 09/05/18 at 09:30 Sodium Chloride 1,000 ml @ 1,000 mls/hr Q1H PRN IV hypotension; Start 09/05/18 at 08:51; Stop 09/05/18 at 14:50; Status DC Sodium Chloride (Normal Saline Flush) 10 ml 1X PRN PRN IV AP catheter pack; Start 09/05/18 at 09:00; Stop 09/06/18 at 08:59 Sodium Chloride (Normal Saline Flush) 10 ml 1X PRN PRN IV AUTOMATIC BUFFING WHEEL FORMER catheter pack; Start 09/05/18 at 09:00; Stop 09/06/18 at 08:59 Sodium Chloride 1,000 ml @ 400 mls/hr Q2H30M PRN IV PATENCY; Start 09/05/18 at 08:51; Stop 09/05/18 at 20:50; Status DC Info (PHARMACY MONITORING -- do not chart) 1 each PRN DAILY PRN MC SEE COMMENTS; Start 09/05/18 at 09:00; Stop 09/05/18 at 09:00; Status DC Info (PHARMACY MONITORING -- do not chart) 1 each PRN DAILY PRN MC SEE COMMENTS; Start 09/05/18 at 09:00 Active Scripts Active Potassium Chloride 20 Meq Tablet.er 20 Meq PO DAILY Orphenadrine Citrate 100 Mg Tablet.er 100 Mg PO Q12HR Anaprox Ds (Naproxen Sodium) 550 Mg Tablet 550 Mg PO Q12HR Reported Prednisone 20 Mg Tablet 1 Tab PO DAILY Hydrochlorothiazide Tablet (Hydrochlorothiazide) 12.5 Mg Tablet 12.5 Mg PO DAILY Shilpi Allergy (Fexofenadine Hcl) 180 Mg Tablet 1 Tab PO DAILY Vitals/I & O Vital Sign - Last 24 Hours 09/05/18 09/05/18 09/05/18 09/05/18 09:00 10:00 10:00 11:00 Pulse 78 82 88 Resp 18 18 18 B/P (MAP) 147/86 (106) 149/85 (106) 150/49 (82) Pulse Ox 100 100 99 99 O2 Delivery Ventilator Ventilator Ventilator Ventilator 09/05/18 09/05/18 09/05/18 09/05/18 11:58 12:00 12:00 13:00 Temp 98.3 98.3 Pulse 78 80 Resp 17 18 B/P (MAP) 140/77 (98) 149/80 (103) Pulse Ox 98 98 100 O2 Delivery Ventilator Mechanical Ventilator Ventilator Ventilator 09/05/18 09/05/18 09/05/18 09/05/18 14:00 15:00 15:20 16:00 Pulse 88 78 84 Resp 17 17 17 B/P (MAP) 145/75 (98) 154/81 (105) 133/68 (89) Pulse Ox 99 99 98 99 O2 Delivery Ventilator Ventilator Ventilator Ventilator 09/05/18 09/05/18 09/05/18 09/05/18 16:00 17:00 17:51 18:00 Temp 99.0 99.0 Pulse 82 90 Resp 18 25 B/P (MAP) 148/68 (94) 159/72 (101) Pulse Ox 99 98 98 O2 Delivery Mechanical Ventilator Ventilator Ventilator Ventilator 09/05/18 09/05/18 09/05/18 09/05/18 18:10 18:34 19:00 20:00 Temp 99.2 99.2 Pulse 82 82 Resp 18 18 22 21 B/P (MAP) 140/69 (92) 161/79 (106) Pulse Ox 99 99 O2 Delivery Ventilator Ventilator 09/05/18 09/05/18 09/05/18 09/05/18 20:00 20:12 21:00 22:00 Pulse 82 82 Resp 26 22 B/P (MAP) 162/83 (109) 171/96 (121) Pulse Ox 98 98 99 O2 Delivery Mechanical Ventilator Ventilator Ventilator Ventilator 09/05/18 09/05/18 09/06/18 09/06/18 23:00 23:35 00:01 00:01 Temp 99.3 99.3 Pulse 82 97 Resp 22 22 B/P (MAP) 155/74 (101) 158/97 (117) Pulse Ox 99 98 99 O2 Delivery Ventilator Ventilator Mechanical Ventilator Ventilator 09/06/18 09/06/18 09/06/18 09/06/18 01:00 02:00 03:00 03:39 Pulse 82 82 84 Resp 22 22 20 B/P (MAP) 141/66 (91) 125/65 (85) 156/82 (106) Pulse Ox 99 100 99 99 O2 Delivery Ventilator Ventilator Ventilator Ventilator 09/06/18 09/06/18 09/06/18 09/06/18 04:00 04:00 05:00 05:55 Temp 99.3 99.3 Pulse 87 88 Resp 24 24 B/P (MAP) 164/74 (104) 150/74 (99) Pulse Ox 99 99 99 O2 Delivery Ventilator Mechanical Ventilator Ventilator Ventilator 09/06/18 09/06/18 09/06/18 06:00 07:00 07:27 Pulse 88 89 Resp 18 18 B/P (MAP) 161/74 (103) 182/86 (118) Pulse Ox 99 99 99 O2 Delivery Ventilator Ventilator Ventilator Intake and Output 09/05/18 09/05/18 09/06/18 15:00 23:00 07:00 Intake Total 300 ml 1167 ml 978.2 ml Output Total 0 ml 18 ml 20 ml Balance 300 ml 1149 ml 958.2 ml JAVON COSME MD September 06, 2018 08:57
[2018-09-06 09:03] LABS: BASE EXCESS ABG -6 mmol/L (-3-3); HCO3 ABG 18 mmol/L (21-28); PCO2 ABG 30 mmHg (35-46); PO2 ABG 110 mmHg (75-108); SAT O2 ABG 97 % (92-99)
--- NOTE | 2018-09-06 09:38 | PDOC ---
Objective: Objective: Tmax 99.2. No GI concerns per RN - weaning off sedation - responds to pain on feet but not hands. Vital Signs: Vital Signs Date Time Temp Pulse Resp B/P (MAP) Pulse Ox O2 Delivery O2 Flow Rate FiO2 09/06/18 07:27 99 Ventilator 09/06/18 07:00 89 18 182/86 (118) 09/06/18 04:00 99.3 99.3 Labs: Laboratory Tests Test 09/06/18 05:40 Sodium Level 135 mmol/L Potassium Level 5.7 mmol/L Chloride Level 96 mmol/L Carbon Dioxide Level 21 mmol/L Anion Gap 18 Blood Urea Nitrogen 90 mg/dL Creatinine 8.9 mg/dL Estimated GFR (Cockcroft-Gault) 6.3 Glucose Level 115 mg/dL Calcium Level 7.3 mg/dL Phosphorus Level 9.1 mg/dL Magnesium Level 2.3 mg/dL Albumin 2.1 g/dL BLOOD CULTURE Preliminary NO GROWTH AFTER 2 DAYS PE: GEN: intubated LUNGS: vent HEART: RRR ABD: quiet, soft, non-distended NEURO/PSYCH: opens eyes briefly, mildly sedated A/P: ?tick-borne illness RADHA, anemia -- Continue same per GI. ELVIA NOE September 06, 2018 09:38
[2018-09-06 09:41] LABS: FIO2 ABG 40
--- NOTE | 2018-09-06 10:50 | NUR ---
Dr. Kebede here to see patient. Discussed POC with and RN at bedside. Propofol gtt is off, patient does not respond to commands or make purposeful movements. Dr. Kebede would like him off of propofol and fentanyl gtts, orders given for 25 mcg Fentanyl IV q2h PRN and Precedex gtt if needed. Will continue to assess neurological status.
[2018-09-06] MEDS ORDERED: ATROPINE 0.5 MG/5 ML DISP.SYRINGE. IV PRN (11:00)
[2018-09-06] MEDS ORDERED: DEXMEDETOMIDINE 200 MCG in IV NORMAL SALINE 50ML 48 ML IV PRN (11:00)
[2018-09-06] MEDS ORDERED: IV NORMAL SALINE 500ML BAG 500 ML IV PRN (11:00)
--- NOTE | 2018-09-06 11:04 | PDOC ---
PULMONARY PROGRESS NOTES Subjective intubated 08/31, ON AC MODE OFF SEDATION, NOT RESPONSIVE LOW GRADE FEVER Vitals Vital Signs Date Time Temp Pulse Resp B/P (MAP) Pulse Ox O2 Delivery O2 Flow Rate FiO2 09/06/18 10:39 18 09/06/18 10:05 98 Ventilator 09/06/18 07:00 89 182/86 (118) 09/06/18 04:00 99.3 99.3 Lungs: Clear Cardiovascular: S1, S2 Abdomen: Soft, Non-tender, Other (no mass) Extremities: Other (1+edema) Skin: Warm Labs Laboratory Tests Test 09/05/18 03:45 09/05/18 08:25 09/05/18 09:35 09/06/18 05:40 White Blood Count 7.9 x10^3/uL (4.0-11.0) Red Blood Count 2.65 x10^6/uL (4.30-5.70) Hemoglobin 7.8 g/dL (13.0-17.5) Hematocrit 22.8 % (39.0-53.0) Mean Corpuscular Volume 86 fL (79-100) Mean Corpuscular Hemoglobin 29 pg (25-35) Mean Corpuscular Hemoglobin Concent 34 g/dL (31-37) Red Cell Distribution Width 17.8 % (11.5-14.5) Platelet Count 182 x10^3/uL (140-400) 175 x10^3/uL (140-400) Sodium Level 136 mmol/L (136-145) 135 mmol/L (136-145) Potassium Level 5.1 mmol/L (3.5-5.1) 5.7 mmol/L (3.5-5.1) Chloride Level 99 mmol/L (98-107) 96 mmol/L (98-107) Carbon Dioxide Level 24 mmol/L (21-32) 21 mmol/L (21-32) Anion Gap 13 (6-14) 18 (6-14) Blood Urea Nitrogen 56 mg/dL (8-26) 90 mg/dL (8-26) Creatinine 6.4 mg/dL (0.7-1.3) 8.9 mg/dL (0.7-1.3) Estimated GFR (Cockcroft-Gault) 9.2 6.3 Glucose Level 122 mg/dL (70-99) 115 mg/dL (70-99) Calcium Level 7.8 mg/dL (8.5-10.1) 7.3 mg/dL (8.5-10.1) Phosphorus Level 5.2 mg/dL (2.6-4.7) 9.1 mg/dL (2.6-4.7) Albumin 2.1 g/dL (3.4-5.0) 2.1 g/dL (3.4-5.0) Prothrombin Time 14.0 SEC (11.7-14.0) Prothromb Time International Ratio 1.1 (0.8-1.1) Activated Partial Thromboplast Time 29 SEC (24-38) Fibrinogen 495 mg/dL (200-440) D-Dimer ([place]) 3.59 ug/mlFEU (0.00-0.50) O2 Saturation 96 % (92-99) Arterial Blood pH 7.40 (7.35-7.45) Arterial Blood pCO2 at Patient Temp 36 mmHg (35-46) Arterial Blood pO2 at Patient Temp 99 mmHg (75-108) Arterial Blood HCO3 22 mmol/L (21-28) Arterial Blood Base Excess -3 mmol/L (-3-3) FiO2 35 Magnesium Level 2.3 mg/dL (1.8-2.4) Test 09/06/18 08:00 O2 Saturation 97 % (92-99) Arterial Blood pH 7.39 (7.35-7.45) Arterial Blood pCO2 at Patient Temp 30 mmHg (35-46) Arterial Blood pO2 at Patient Temp 110 mmHg (75-108) Arterial Blood HCO3 18 mmol/L (21-28) Arterial Blood Base Excess -6 mmol/L (-3-3) FiO2 40 Laboratory Tests Test 09/06/18 05:40 09/06/18 08:00 Sodium Level 135 mmol/L (136-145) Potassium Level 5.7 mmol/L (3.5-5.1) Chloride Level 96 mmol/L (98-107) Carbon Dioxide Level 21 mmol/L (21-32) Anion Gap 18 (6-14) Blood Urea Nitrogen 90 mg/dL (8-26) Creatinine 8.9 mg/dL (0.7-1.3) Estimated GFR (Cockcroft-Gault) 6.3 Glucose Level 115 mg/dL (70-99) Calcium Level 7.3 mg/dL (8.5-10.1) Phosphorus Level 9.1 mg/dL (2.6-4.7) Magnesium Level 2.3 mg/dL (1.8-2.4) Albumin 2.1 g/dL (3.4-5.0) O2 Saturation 97 % (92-99) Arterial Blood pH 7.39 (7.35-7.45) Arterial Blood pCO2 at Patient Temp 30 mmHg (35-46) Arterial Blood pO2 at Patient Temp 110 mmHg (75-108) Arterial Blood HCO3 18 mmol/L (21-28) Arterial Blood Base Excess -6 mmol/L (-3-3) FiO2 40 Medications Active Scripts Medications Dose Route/Sig Max Daily Dose Days Date Category Prednisone 20 Mg Tablet 1 Tab PO DAILY 08/26/18 Reported Hydrochlorothiazide Tablet (Hydrochlorothiazide) 12.5 Mg Tablet 12.5 Mg PO DAILY 08/26/18 Reported Shilpi Allergy (Fexofenadine Hcl) 180 Mg Tablet 1 Tab PO DAILY 08/26/18 Reported Potassium Chloride 20 Meq Tablet.er 20 Meq PO DAILY 08/24/18 Rx Orphenadrine Citrate 100 Mg Tablet.er 100 Mg PO Q12HR 02/03/16 Rx Anaprox Ds (Naproxen Sodium) 550 Mg Tablet 550 Mg PO Q12HR 02/03/16 Rx Comments CXR REVIEWED 09/06 SMALL/ ATELECTASIS/ EFFUSION LEFT Impression . IMPRESSION: 1. Acute hypoxemic respiratory failure, multifactorial due to encephalopathy from suspected PAPER TUBE GRADER infection/ acute lung injury from recent infection. 2. Tick-born illness suspected w/u negative for ehrlichia ,RMSF Ehrlichiae Ab neg RMSF neg, though need convalescent serology ,[place] IgG +, IgM neg, old exposure, HSV PCR neg, Arboviral panel not available, Enteroviral pcr not available 3. Fever. 4. Lactic acidosis. 5. Acute renal failure. 6. Acute hepatic injury. 7. Thrombocytopenia, improving. 8. Hemochromatosis. 9. ACUTE TOXIC MET ENCEPH POA 10 DYSPHAGIA 11.ENCEPHALITIS Plan . AC MODE FOR SUPPORT ABG ADEQUATE WEAN OFF FENTANYL AND CONSIDER CPAP TRIAL IF AWAKE ANTIBX PER ID NUTRION PER TPN PT WITH ILEUS fu sputum cx difficult intubation, need upper airway test bf sbt when ready D/W RN, NOT READY FOR WEAN until encephalopathy resolves f/u cxr d/w family DYANA BERRY MD September 06, 2018 11:04
--- NOTE | 2018-09-06 11:17 | PDOC ---
Renal-Progress Notes Subjective Notes Notes INTUBATED History of Present Illness Hx of present illness STABLE Vitals Vitals Vital Signs Date Time Temp Pulse Resp B/P (MAP) Pulse Ox O2 Delivery O2 Flow Rate FiO2 09/06/18 10:39 18 09/06/18 10:05 98 Ventilator 09/06/18 07:00 89 182/86 (118) 09/06/18 04:00 99.3 99.3 Weight Weight [ ] I.O. Intake and Output Intake and Output 09/06/18 06:59 Intake Total 2445.2 ml Output Total 38 ml Balance 2407.2 ml IV Total 752.2 ml Tube Feeding 1593 ml Other 100 ml Output Urine Total 38 ml Gastric Drainage Total 0 ml Labs Labs Laboratory Tests Test 09/06/18 05:40 09/06/18 08:00 Sodium Level 135 mmol/L (136-145) Potassium Level 5.7 mmol/L (3.5-5.1) Chloride Level 96 mmol/L (98-107) Carbon Dioxide Level 21 mmol/L (21-32) Anion Gap 18 (6-14) Blood Urea Nitrogen 90 mg/dL (8-26) Creatinine 8.9 mg/dL (0.7-1.3) Estimated GFR (Cockcroft-Gault) 6.3 Glucose Level 115 mg/dL (70-99) Calcium Level 7.3 mg/dL (8.5-10.1) Phosphorus Level 9.1 mg/dL (2.6-4.7) Magnesium Level 2.3 mg/dL (1.8-2.4) Albumin 2.1 g/dL (3.4-5.0) O2 Saturation 97 % (92-99) Arterial Blood pH 7.39 (7.35-7.45) Arterial Blood pCO2 at Patient Temp 30 mmHg (35-46) Arterial Blood pO2 at Patient Temp 110 mmHg (75-108) Arterial Blood HCO3 18 mmol/L (21-28) Arterial Blood Base Excess -6 mmol/L (-3-3) FiO2 40 Micro Micro Microbiology 09/04/18 Blood Culture - Preliminary, Resulted NO GROWTH AFTER 2 DAYS 08/29/18 CSF Gram Stain - Final, Complete 08/27/18 Stool Culture - Final, Complete 08/27/18 Stool Culture Result 1 (LOTUS) - Final, Complete 5/20/19 Campylobacter Antigen Assay - Final, Complete 08/27/18 Campylobactor Result 1 - Final, Complete 08/27/18 Shiga Toxin Test - Final, Complete 09/01/18 - Final, Complete 09/01/18 - Final, Complete 09/01/18 - Final, Complete 09/01/18 Gram Stain Evaluation - Final, Complete 09/01/18 Sputum Culture - Final, Complete 09/01/18 Sputum Result 1 - Final, Complete Physical Exam Skin: warm, dry, moist Respiratory: decreased breath sounds Heart: S1S2 Abdomen: soft, other (HYPOACTIVE) Genitourinary: bladder flat, rose catheter Extremities: pulses present Neurology: other (SEDATED) Assessment Assessment IMP RADHA-ATN HYPERKALEMIA SEPSIS THROMBOCYTOPENIA-IMPROVING ACUTE RESP FAILURE LACTIC ACIDOSIS LEUCOCYTOSIS PLAN HD TODAY UF TO DW VENT SUPPORT CONT TF ANTIBIOTICS WILL FOLLOW UPDATED MIRNA BLUNT MD September 06, 2018 11:17
[2018-09-06] MEDS ORDERED: IV NORMAL SALINE 1000ML BAG 1,000 ML IV PRN ×2 (11:52)
[2018-09-06] MEDS ORDERED: diphenhydrAMINE 50 MG/ML VIAL IV PRN ×2 (12:00)
[2018-09-06] MEDS ORDERED: DIALYSIS PATIENT. MC PRN (12:00)
--- NOTE | 2018-09-06 14:43 | PDOC ---
PROGRESS NOTES Assessment Problems Medical Problems: (1) Acute renal failure Status: Acute Metabolic encephalopathy. 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 Hold on repeating lumbar puncture, especially since he was mostly lucid before requiring intubation Subjective none Objective Vital Signs Date Time Temp Pulse Resp B/P (MAP) Pulse Ox O2 Delivery O2 Flow Rate FiO2 09/06/18 14:21 98 Ventilator 09/06/18 14:00 93 20 147/86 (106) 09/06/18 13:00 98.5 98.5 Intake and Output 09/06/18 07:00 Intake Total 2445.2 ml Output Total 38 ml Balance 2407.2 ml IV Total 752.2 ml Tube Feeding 1593 ml Other 100 ml Output Urine Total 38 ml Gastric Drainage Total 0 ml PHYSICAL EXAM Intubated, in ICU Follows commands, eyes open PERRL. EOMI. CN: no focal findings. Muscle tone: normal. Muscle strength: Moves legs spontaneously DTR: 1+ Plantar reflex: silent Gait: not examined in bed. Sensory exam: no abnormal findings. No cerebellar signs elicited. Review of Relevant I have reviewed the following items gera (where applicable) has been applied. Labs Laboratory Tests Test 09/05/18 03:45 09/05/18 08:25 09/05/18 09:35 09/06/18 05:40 White Blood Count 7.9 x10^3/uL (4.0-11.0) Red Blood Count 2.65 x10^6/uL (4.30-5.70) Hemoglobin 7.8 g/dL (13.0-17.5) Hematocrit 22.8 % (39.0-53.0) Mean Corpuscular Volume 86 fL (79-100) Mean Corpuscular Hemoglobin 29 pg (25-35) Mean Corpuscular Hemoglobin Concent 34 g/dL (31-37) Red Cell Distribution Width 17.8 % (11.5-14.5) Platelet Count 182 x10^3/uL (140-400) 175 x10^3/uL (140-400) Sodium Level 136 mmol/L (136-145) 135 mmol/L (136-145) Potassium Level 5.1 mmol/L (3.5-5.1) 5.7 mmol/L (3.5-5.1) Chloride Level 99 mmol/L (98-107) 96 mmol/L (98-107) Carbon Dioxide Level 24 mmol/L (21-32) 21 mmol/L (21-32) Anion Gap 13 (6-14) 18 (6-14) Blood Urea Nitrogen 56 mg/dL (8-26) 90 mg/dL (8-26) Creatinine 6.4 mg/dL (0.7-1.3) 8.9 mg/dL (0.7-1.3) Estimated GFR (Cockcroft-Gault) 9.2 6.3 Glucose Level 122 mg/dL (70-99) 115 mg/dL (70-99) Calcium Level 7.8 mg/dL (8.5-10.1) 7.3 mg/dL (8.5-10.1) Phosphorus Level 5.2 mg/dL (2.6-4.7) 9.1 mg/dL (2.6-4.7) Albumin 2.1 g/dL (3.4-5.0) 2.1 g/dL (3.4-5.0) Prothrombin Time 14.0 SEC (11.7-14.0) Prothromb Time International Ratio 1.1 (0.8-1.1) Activated Partial Thromboplast Time 29 SEC (24-38) Fibrinogen 495 mg/dL (200-440) D-Dimer ([place]) 3.59 ug/mlFEU (0.00-0.50) O2 Saturation 96 % (92-99) Arterial Blood pH 7.40 (7.35-7.45) Arterial Blood pCO2 at Patient Temp 36 mmHg (35-46) Arterial Blood pO2 at Patient Temp 99 mmHg (75-108) Arterial Blood HCO3 22 mmol/L (21-28) Arterial Blood Base Excess -3 mmol/L (-3-3) FiO2 35 Magnesium Level 2.3 mg/dL (1.8-2.4) Test 09/06/18 08:00 O2 Saturation 97 % (92-99) Arterial Blood pH 7.39 (7.35-7.45) Arterial Blood pCO2 at Patient Temp 30 mmHg (35-46) Arterial Blood pO2 at Patient Temp 110 mmHg (75-108) Arterial Blood HCO3 18 mmol/L (21-28) Arterial Blood Base Excess -6 mmol/L (-3-3) FiO2 40 Laboratory Tests Test 09/06/18 05:40 09/06/18 08:00 Sodium Level 135 mmol/L (136-145) Potassium Level 5.7 mmol/L (3.5-5.1) Chloride Level 96 mmol/L (98-107) Carbon Dioxide Level 21 mmol/L (21-32) Anion Gap 18 (6-14) Blood Urea Nitrogen 90 mg/dL (8-26) Creatinine 8.9 mg/dL (0.7-1.3) Estimated GFR (Cockcroft-Gault) 6.3 Glucose Level 115 mg/dL (70-99) Calcium Level 7.3 mg/dL (8.5-10.1) Phosphorus Level 9.1 mg/dL (2.6-4.7) Magnesium Level 2.3 mg/dL (1.8-2.4) Albumin 2.1 g/dL (3.4-5.0) O2 Saturation 97 % (92-99) Arterial Blood pH 7.39 (7.35-7.45) Arterial Blood pCO2 at Patient Temp 30 mmHg (35-46) Arterial Blood pO2 at Patient Temp 110 mmHg (75-108) Arterial Blood HCO3 18 mmol/L (21-28) Arterial Blood Base Excess -6 mmol/L (-3-3) FiO2 40 Microbiology 09/04/18 Blood Culture - Preliminary, Resulted NO GROWTH AFTER 2 DAYS 08/29/18 CSF Gram Stain - Final, Complete 08/27/18 Stool Culture - Final, Complete 08/27/18 Stool Culture Result 1 (LOTUS) - Final, Complete 08/27/18 Campylobacter Antigen Assay - Final, Complete 08/27/18 Campylobactor Result 1 - Final, Complete 08/27/18 Shiga Toxin Test - Final, Complete 09/01/18 - Final, Complete 09/01/18 - Final, Complete 09/01/18 - Final, Complete 09/01/18 Gram Stain Evaluation - Final, Complete 09/01/18 Sputum Culture - Final, Complete 09/01/18 Sputum Result 1 - Final, Complete 09/04/18 Urine Culture - Final, Complete 09/04/18 Urine Culture Result 1 (LOTUS) - Final, Complete Medications Current Medications Sodium Chloride 1,000 ml @ 1,000 mls/hr 1X ONCE IV Last administered on 08/25/18 20:38; Start 08/25/18 at 19:15; Stop 08/25/18 at 20:14; Status DC Ibuprofen (Motrin) 600 mg 1X ONCE PO Last administered on 08/25/18 20:38; Start 08/25/18 at 19:45; Stop 08/25/18 at 19:49; Status DC Sodium Chloride 1,000 ml @ 1,000 mls/hr 1X ONCE IV Last administered on 08/25/18 20:30; Start 08/25/18 at 20:30; Stop 08/25/18 at 21:29; Status DC Ceftriaxone Sodium (Rocephin) 1 gm 1X ONCE IVP Last administered on 08/25/18at 20:36; Start 08/25/18 at 20:30; Stop 08/25/18 at 20:31; Status DC Vancomycin HCl 2 gm/Sodium Chloride 500 ml @ 250 mls/hr 1X ONCE IV Last administered on 08/25/18 23:10; Start 08/25/18 at 21:30; Stop 08/25/18 at 23:29; Status DC Sodium Chloride 1,000 ml @ 1,000 mls/hr 1X ONCE IV Last administered on 08/08 23:51; Start 08/25/18 at 21:00; Stop 08/25/18 at 21:59; Status DC Piperacillin Sod/ Tazobactam Sod 4.5 gm/Sodium Chloride 100 ml @ 200 mls/hr 1X ONCE IV ; Start 08/25/18 at 21:15; Stop 08/25/18 at 21:44; Status DC Aztreonam (Azactam) 2 gm 1X ONCE IVP Last administered on 08/25/18 21:15; Start 08/25/18 at 21:15; Stop 08/25/18 at 21:16; Status DC Magnesium Sulfate 50 ml @ 25 mls/hr 1X ONCE IV Last administered on 08/25/18 23:51; Start 08/25/18 at 21:15; Stop 08/25/18 at 23:14; Status DC Ondansetron HCl (Zofran) 4 mg PRN Q8HRS PRN IV NAUSEA/VOMITING; Start 08/25/18 at 21:15; Stop 08/26/18 at 21:14; Status DC Acetaminophen (Tylenol) 650 mg PRN Q4HRS PRN PO FEVER; Start 08/25/18 at 21:15; Stop 08/26/18 at 21:14; Status DC Sodium Chloride 1,000 ml @ 125 mls/hr 1X ONCE IV Last administered on 08/25/18at 23:09; Start 08/25/18 at 21:15; Stop 08/26/18 at 05:14; Status DC Daptomycin 610 mg/ Sodium Chloride 50 ml @ 100 mls/hr QODAY IV Last administered on 08/27/18at 08:59; Start 08/27/18 at 09:00; Stop 08/28/18 at 15:40; Status DC Meropenem 500 mg/ Sodium Chloride 50 ml @ 100 mls/hr 1X ONCE IV Last administered on 08/25/18at 22:12; Start 08/25/18 at 22:00; Stop 08/25/18 at 22:29; Status DC Doxycycline Hyclate 100 mg/ Dextrose 100 ml @ 50 mls/hr Q12HR IV Last administered on 09/03/18at 22:11; Start 08/26/18 at 09:00; Stop 09/04/18 at 08:11; Status DC Meropenem 500 mg/ Sodium Chloride 50 ml @ 100 mls/hr DAILY IV Last administered on 08/29/18at 10:13; Start 08/26/18 at 09:00; Stop 08/30/18 at 08:17; Status DC Sodium Chloride (Normal Saline Flush) 10 ml QSHIFT PRN IV AFTER MEDS AND BLOOD DRAWS; Start 08/26/18 at 09:15 Norepinephrine Bitartrate 250 ml @ 0 mls/hr CONT PRN IV PER PROTOCOL Last administered on 08/27/18at 10:21; Start 08/26/18 at 09:15; Stop 08/30/18 at 17:20; Status DC Famotidine (Pepcid) 20 mg DAILY PO Last administered on 08/27/18at 08:14; Start 08/26/18 at 12:00; Stop 08/27/18 at 14:36; Status DC Sodium Chloride 1,000 ml @ 1,000 mls/hr Q1H PRN IV hypotension; Start 08/26/18 at 11:51; Stop 08/26/18 at 17:50; Status DC Sodium Chloride (Normal Saline Flush) 10 ml 1X PRN PRN IV AP catheter pack; Start 08/26/18 at 12:00; Stop 08/27/18 at 11:59; Status DC Sodium Chloride (Normal Saline Flush) 10 ml 1X PRN PRN IV [employer] catheter pack; Start 08/26/18 at 12:00; Stop 08/27/18 at 11:59; Status DC Sodium Chloride 1,000 ml @ 400 mls/hr Q2H30M PRN IV PATENCY; Start 08/26/18 at 11:51; Stop 08/26/18 at 23:50; Status DC Info (PHARMACY MONITORING -- do not chart) 1 each PRN DAILY PRN MC SEE COMMENTS; Start 08/26/18 at 12:00; Status UNV Info (PHARMACY MONITORING -- do not chart) 1 each PRN DAILY PRN MC SEE COMMENTS ; Start 08/26/18 at 12:00; Stop 09/01/18 at 10:59; Status DC Lidocaine/Sodium Bicarbonate (Buffered Lidocaine 1%) 4 ml 1X ONCE INJ Last administered on 08/26/18at 12:45; Start 08/26/18 at 12:45; Stop 08/26/18 at 12:48; Status DC Heparin Sodium (Porcine) (Heparin Sodium) 2,500 unit 1X ONCE INT CAT Last administered on 08/26/18at 12:45; Start 08/26/18 at 12:45; Stop 08/26/18 at 1 2:48; Status DC Lidocaine/Sodium Bicarbonate (Buffered Lidocaine 1%) 3 ml STK-MED ONCE .ROUTE ; Start 08/26/18 at 12:49; Stop 08/26/18 at 12:50; Status DC Heparin Sodium (Porcine) (Heparin Sodium) 10,000 unit STK-MED ONCE .ROUTE ; Start 08/26/18 at 12:49; Stop 08/26/18 at 12:50; Status DC Lactobacillus Rhamnosus (Culturelle) 1 cap BID PO Last administered on 09/06/18at 08:12; Start 08/26/18 at 21:00 Acetaminophen (Tylenol) 325 mg STK-MED ONCE PO ; Start 08/27/18 at 00:43; Stop 08/27/18 at 00:44; Status DC Sodium Chloride 1,000 ml @ 1,000 mls/hr 1X ONCE IV Last administered on 08/27/18at 11:05; Start 08/27/18 at 10:30; Stop 08/27/18 at 11:29; Status DC Sodium Chloride 1,000 ml @ 1,000 mls/hr Q1H PRN IV hypotension; Start 08/27/18 at 11:28; Stop 08/27/18 at 17:27; Status DC Albumin Human 200 ml @ 200 mls/hr 1X PRN PRN IV Hypotension; Start 08/27/18 at 11:30; Stop 08/27/18 at 17:29; Status DC Sodium Chloride (Normal Saline Flush) 10 ml 1X PRN PRN IV AP catheter pack; Start 08/27/18 at 11:30; Stop 08/28/18 at 11:29; Status DC Sodium Chloride (Normal Saline Flush) 10 ml 1X PRN PRN IV W[employer] catheter pack; Start 08/27/18 at 11:30; Stop 08/28/18 at 11:29; Status DC Sodium Chloride 1,000 ml @ 400 mls/hr Q2H30M PRN IV PATENCY; Start 08/27/18 at 11:28; Stop 08/27/18 at 23:27; Status DC Info (PHARMACY MONITORING -- do not chart) 1 each PRN DAILY PRN MC SEE COMMENTS; Start 08/27/18 at 11:30; Status UNV Info (PHARMACY MONITORING -- do not chart) 1 each PRN DAILY PRN MC SEE COMMENTS; Start 08/27/18 at 11:30; Status UNV Famotidine (Pepcid) 20 mg Q48H PO ; Start 08/29/18 at 09:00; Stop 08/29/18 at 11:29; Status DC Acetaminophen (Tylenol) 650 mg PRN Q6HRS PRN PO pain/fever; Start 08/27/18 at 21:15 Acetaminophen (Tylenol Supp) 650 mg PRN Q6HRS PRN DC MILD PAIN / TEMP Last administered on 09/02/18at 01:18; Start 08/27/18 at 21:15 Fentanyl Citrate (Fentanyl 2ml Vial) 25 mcg 1X ONCE IV Last administered on 08/28/18at 08:54; Start 08/28/18 at 08:45; Stop 08/28/18 at 08:47; Status DC Lidocaine/Sodium Bicarbonate (Buffered Lidocaine 1%) 3 ml STK-MED ONCE .ROUTE ; Start 08/28/18 at 09:55; Stop 08/28/18 at 09:56; Status DC Lidocaine HCl (Glydo (Lidocaine) Jelly) 1 meng 1X STAT MM Last administered on 08/28/18at 10:16; Start 08/28/18 at 10:16; Stop 08/28/18 at 10:19; Status DC Benzocaine (Hurricaine One) 1 spray 1X STAT MM Last administered on 08/28/18at 10:16; Start 08/28/18 at 10:16; Stop 08/28/18 at 10:19; Status DC Lidocaine/Sodium Bicarbonate (Buffered Lidocaine 1%) 3 ml 1X ONCE INJ ; Start 08/28/18 at 10:30; Stop 08/28/18 at 10:31; Status DC Haloperidol Lactate (Haldol Inj) 5 mg PRN Q6HRS PRN IVP AGITATION Last administered on 09/06/18at 05:53; Start 08/28/18 at 12:00 Fentanyl Citrate (Fentanyl 2ml Vial) 50 mcg PRN Q4HRS PRN IV PAIN Last administered on 08/28/18at 21:44; Start 08/28/18 at 15:30; Stop 09/05/18 at 02:11; Status DC Sodium Chloride 1,000 ml @ 1,000 mls/hr Q1H PRN IV hypotension; Start 08/28/18 at 14:00; Stop 08/28/18 at 19:59; Status DC Albumin Human 200 ml @ 200 mls/hr 1X PRN PRN IV Hypotension Last administered on 08/28/18at 14:50; Start 08/28/18 at 14:00; Stop 09/03/18 at 18:17; Status DC Sodium Chloride 1,000 ml @ 400 mls/hr Q2H30M PRN IV PATENCY; Start 08/28/18 at 14:00; Stop 08/29/18 at 01:59; Status DC Info (PHARMACY MONITORING -- do not chart) 1 each PRN DAILY PRN MC SEE COMMENTS; Start 08/28/18 at 15:30; Status UNV Info (PHARMACY MONITORING -- do not chart) 1 each PRN DAILY PRN MC SEE COMMENTS; Start 08/28/18 at 15:30; Status UNV Daptomycin 610 mg/ Sodium Chloride 50 ml @ 100 mls/hr Q48H IV ; Start 08/30/18 at 16:00; Stop 08/30/18 at 16:00; Status DC Famotidine (Pepcid Vial) 20 mg QHS IVP Last administered on 08/31/18at 20:59; Start 08/29/18 at 21:00; Stop 09/01/18 at 11:00; Status DC Acyclovir Sodium 340 mg/Dextrose 106.8 ml @ 106.8 mls/ hr Q12HR IV Last administered on 09/01/18at 11:05; Start 08/30/18 at 09:00; Stop 09/01/18 at 13:37; Status DC Sodium Chloride 1,000 ml @ 1,000 mls/hr Q1H PRN IV hypotension; Start 08/30/18 at 11:02; Stop 08/30/18 at 17:01; Status DC Sodium Chloride 1,000 ml @ 400 mls/hr Q2H30M PRN IV PATENCY; Start 08/30/18 at 11:02; Stop 08/30/18 at 23:01; Status DC Info (PHARMACY MONITORING -- do not chart) 1 each PRN DAILY PRN MC SEE COMMENTS; Start 08/30/18 at 11:15; Status UNV Info (PHARMACY MONITORING -- do not chart) 1 each PRN DAILY PRN MC SEE COMMENTS; Start 08/30/18 at 11:15; Status UNV Info (Tpn Per Pharmacy) 1 each PRN DAILY PRN MC SEE COMMENTS Last administered on 09/03/18at 10:53; Start 08/30/18 at 12:45; Stop 09/04/18 at 12:50; Status DC Sodium Chloride 90 meq/Potassium Chloride 50 meq/ Potassium Phosphate 3 mmol/ Magnesium Sulfate 10 meq/Calcium Gluconate 10 meq/ Multivitamins 10 ml/Chromium/ Copper/Manganese/ Seleni/Zn 1 ml/ Total Parenteral Nutrition/Amino Acids/Dextrose/ Fat Emulsion Intravenous 1,512 ml @ 63 mls/hr TPN CONT IV Last administered on 08/30/18at 21:40; Start 08/30/18 at 22:00; Stop 08/31/18 at 21:59; Status DC Ondansetron HCl (Zofran) 4 mg PRN Q6HRS PRN IV NAUSEA/VOMITING; Start 08/31/18 at 08:00 Haloperidol (Haldol) 2 mg PRN QID PRN PO AGITATION; Start 08/31/18 at 08:00; Stop 08/31/18 at 12:43; Status DC Haloperidol Lactate (HALDOL 2mg ORAL CONC) 2 mg PRN QID PRN PO AGITATION; Start 08/31/18 at 12:43 Sodium Chloride 90 meq/Potassium Chloride 50 meq/ Potassium Phosphate 5 mmol/ Magnesium Sulfate 3 meq/Calcium Gluconate 10 meq/ Multivitamins 10 ml/Chromium/ Copper/Manganese/ Seleni/Zn 1 ml/ Total Parenteral Nutrition/Amino Acids/Dextrose 1,512 ml @ 63 mls/hr TPN CONT IV Last administered on 08/31/18at 20:59; Start 08/31/18 at 22:00; Stop 09/01/18 at 21:59; Status DC Propofol 100 ml @ As Directed STK-MED ONCE IV ; Start 08/31/18 at 22:45; Stop 08/31/18 at 22:46; Status DC Succinylcholine Chloride (Anectine) 200 mg STK-MED ONCE .ROUTE ; Start 08/31/18 at 22:46; Stop 08/31/18 at 22:47; Status DC Atropine Sulfate (ATROPINE 1mg SYRINGE) 1 mg STK-MED ONCE .ROUTE ; Start 08/31/18 at 22:58; Stop 08/31/18 at 22:59; Status DC Fentanyl Citrate 30 ml @ 0 mls/hr CONT PRN IV SEE PROTOCOL Last administered on 09/06/18at 10:39; Start 09/01/18 at 00:00; Stop 09/06/18 at 10:59; Status DC Propofol 100 ml @ 0 mls/hr CONT PRN IV SEE PROTOCOL Last administered on 09/06/18at 08:14; Start 09/01/18 at 00:00; Stop 09/06/18 at 10:59; Status DC Chlorhexidine Gluconate (Peridex) 15 ml BID MM Last administered on 09/06/18at 08:12; Start 09/01/18 at 09:00 Midazolam HCl 100 ml @ 0 mls/hr CONT PRN IV SEE PROTOCOL; Start 09/01/18 at 00:00 Albuterol/ Ipratropium (Duoneb) 3 ml RTQID NEB Last administered on 09/06/18at 11:31; Start 09/01/18 at 08:00 Albuterol/ Ipratropium (Duoneb) 3 ml 1X ONCE NEB Last administered on 09/01/18at 01:10; Start 09/01/18 at 01:00; Stop 09/01/18 at 01:01; Status DC Succinylcholine Chloride (Anectine) 200 mg 1X ONCE IV Last administered on 08/31/18at 23:04; Start 09/01/18 at 01:15; Stop 09/01/18 at 01:16; Status DC Sodium Chloride 1,000 ml @ 1,000 mls/hr Q1H PRN IV hypotension; Start 09/01/18 at 07:00; Stop 09/01/18 at 12:59; Status DC Sodium Chloride (Normal Saline Flush) 10 ml 1X PRN PRN IV AP catheter pack; Start 09/01/18 at 07:00; Stop 09/02/18 at 06:59; Status DC Sodium Chloride (Normal Saline Flush) 10 ml 1X PRN PRN IV [employer] catheter pack; Start 09/01/18 at 07:00; Stop 09/02/18 at 06:59; Status DC Sodium Chloride 1,000 ml @ 400 mls/hr Q2H30M PRN IV PATENCY; Start 09/01/18 at 07:00; Stop 09/01/18 at 18:59; Status DC Info (PHARMACY MONITORING -- do not chart) 1 each PRN DAILY PRN MC SEE COMMENTS; Start 09/01/18 at 11:00; Status Cancel Info (PHARMACY MONITORING -- do not chart) 1 each PRN DAILY PRN MC SEE COMM ENTS; Start 09/01/18 at 11:00; Status Cancel Famotidine (Pepcid Vial) 20 mg Q48H IVP Last administered on 09/05/18at 22:28; Start 09/03/18 at 21:00 Sodium Chloride 90 meq/Potassium Chloride 50 meq/ Potassium Phosphate 10 mmol/ Calcium Gluconate 10 meq/ Multivitamins 10 ml/Chromium/ Copper/Manganese/ Seleni/Zn 1 ml/ Total Parenteral Nutrition/Amino Acids/Dextrose 1,512 ml @ 63 mls/hr TPN CONT IV Last administered on 09/01/18at 22:11; Start 09/01/18 at 22:00; Stop 09/02/18 at 21:59; Status DC Piperacillin Sod/ Tazobactam Sod 2.25 gm/Sodium Chloride 50 ml @ 100 mls/hr Q6HRS IV Last administered on 09/06/18at 12:09; Start 09/01/18 at 14:00 Sodium Chloride 110 meq/Potassium Chloride 50 meq/ Potassium Phosphate 10 mmol/ Calcium Gluconate 10 meq/ Multivitamins 10 ml/Chromium/ Copper/Manganese/ Seleni/Zn 1 ml/ Magnesium Sulfate 3 meq/Total Parenteral Nutrition/Amino Acids/Dextrose 1,512 ml @ 63 mls/hr TPN CONT IV Last administered on 09/02/18at 22:13; Start 09/02/18 at 22:00; Stop 09/03/18 at 21:59; Status DC Darbepoetin Phil (Aranesp) 100 mcg [id number] SQ Last administered on 09/03/18at 22:11; Start 09/03/18 at 21:00 Sodium Chloride 130 meq/Potassium Acetate 20 meq/ Calcium Gluconate 10 meq/ Multivitamins 10 ml/Chromium/ Copper/Manganese/ Seleni/Zn 1 ml/ Magnesium Sulfate 3 meq/Total Parenteral Nutrition/Amino Acids/Dextrose 1,512 ml @ 63 mls/hr TPN CONT IV Last administered on 09/03/18at 22:12; Start 09/03/18 at 22:00; Stop 09/04/18 at 21:59; Status DC Albumin Human 200 ml @ 200 mls/hr 1X PRN PRN IV Hypotension; Start 09/03/18 at 10:00; Stop 09/03/18 at 21:00; Status DC Sodium Chloride (Normal Saline Flush) 10 ml 1X PRN PRN IV AP catheter pack; Start 09/03/18 at 10:00; Stop 09/03/18 at 21:00; Status DC Sodium Chloride (Normal Saline Flush) 10 ml 1X PRN PRN IV [employer] catheter pack; Start 09/03/18 at 10:00; Stop 09/03/18 at 21:00; Status DC Sodium Chloride 1,000 ml @ 400 mls/hr Q2H30M PRN IV PATENCY; Start 09/03/18 at 10:00; Stop 09/03/18 at 21:59; Status DC Info (PHARMACY MONITORING -- do not chart) 1 each PRN DAILY PRN MC SEE COMMENTS; Start 09/03/18 at 18:15; Status UNV Atropine Sulfate (ATROPINE 0.5mg SYRINGE) 0.5 mg STK-MED ONCE .ROUTE ; Start 08/31/18 at 08:06; Stop 09/04/18 at 08:07; Status DC Epinephrine HCl (EPINEPHrine SYRINGE) 3 mg STK-MED ONCE .ROUTE ; Start 08/31/18 at 08:06; Stop 09/04/18 at 08:07; Status DC Sodium Bicarbonate (Sodium Bicarb Adult 8.4% Syr) 100 meq STK-MED ONCE .ROUTE ; Start 08/31/18 at 08:06; Stop 09/04/18 at 08:07; Status DC Levofloxacin/ Dextrose 150 ml @ 100 mls/hr QODAY IV Last administered on 09/06/18at 10:28; Start 09/04/18 at 09:00 Sodium Chloride 1,000 ml @ 1,000 mls/hr Q1H PRN IV hypotension; Start 09/04/18 at 08:23; Stop 09/04/18 at 14:24; Status DC Albumin Human 200 ml @ 200 mls/hr 1X PRN PRN IV Hypotension; Start 09/04/18 at 08:30; Stop 09/04/18 at 14:29; Status DC Sodium Chloride 1,000 ml @ 400 mls/hr Q2H30M PRN IV PATENCY; Start 09/04/18 at 08:23; Stop 09/04/18 at 20:22; Status DC Info (PHARMACY MONITORING -- do not chart) 1 each PRN DAILY PRN MC SEE COMMENTS; Start 09/04/18 at 08:30; Stop 09/05/18 at 08:55; Status DC Info (PHARMACY MONITORING -- do not chart) 1 each PRN DAILY PRN MC SEE COMMENTS; Start 09/04/18 at 08:30; Status UNV Linezolid/Dextrose 300 ml @ 300 mls/hr Q12HR IV Last administered on 09/06/18at 08:13; Start 09/05/18 at 09:30 Sodium Chloride 1,000 ml @ 1,000 mls/hr Q1H PRN IV hypotension; Start 09/05/18 at 08:51; Stop 09/05/18 at 14:50; Status DC Sodium Chloride (Normal Saline Flush) 10 ml 1X PRN PRN IV AP catheter pack; Start 09/05/18 at 09:00; Stop 09/06/18 at 08:59; Status DC Sodium Chloride (Normal Saline Flush) 10 ml 1X PRN PRN IV [employer] catheter pack; Start 09/05/18 at 09:00; Stop 09/06/18 at 08:59; Status DC Sodium Chloride 1,000 ml @ 400 mls/hr Q2H30M PRN IV PATENCY; Start 09/05/18 at 08:51; Stop 09/05/18 at 20:50; Status DC Info (PHARMACY MONITORING -- do not chart) 1 each PRN DAILY PRN MC SEE C OMMENTS; Start 09/05/18 at 09:00; Stop 09/05/18 at 09:00; Status DC Info (PHARMACY MONITORING -- do not chart) 1 each PRN DAILY PRN MC SEE COMMENTS; Start 09/05/18 at 09:00 Fentanyl Citrate (Fentanyl 2ml Vial) 25 mcg PRN Q2HR PRN IV MODERATE PAIN; Start 09/06/18 at 11:00 Dexmedetomidine HCl 200 mcg/ Sodium Chloride 50 ml @ 0 mls/hr CONT PRN IV PER PROTOCOL; Start 09/06/18 at 11:00 Sodium Chloride 500 ml @ 500 mls/hr 1X PRN PRN IV SEE COMMENTS; Start 09/06/18 at 11:00 Atropine Sulfate (ATROPINE 0.5mg SYRINGE) 0.5 mg PRN Q5MIN PRN IV SEE COMMENTS; Start 09/06/18 at 11:00 Sodium Chloride 1,000 ml @ 1,000 mls/hr Q1H PRN IV hypotension; Start 09/06/18 at 11:52; Stop 09/06/18 at 17:51 Diphenhydramine HCl (Benadryl) 25 mg 1X PRN PRN IV ITCHING; Start 09/06/18 at 12:00; Stop 09/07/18 at 11:59 Diphenhydramine HCl (Benadryl) 25 mg 1X PRN PRN IV ITCHING; Start 09/06/18 at 12:00; Stop 09/07/18 at 11:59 Sodium Chloride 1,000 ml @ 400 mls/hr Q2H30M PRN IV PATENCY; Start 09/06/18 at 11:52; Stop 09/06/18 at 23:51 Info (PHARMACY MONITORING -- do not chart) 1 each PRN DAILY PRN MC SEE COMMENTS; Start 09/06/18 at 12:00; Stop 09/06/18 at 12:00; Status DC Active Scripts Active Potassium Chloride 20 Meq Tablet.er 20 Meq PO DAILY Orphenadrine Citrate 100 Mg Tablet.er 100 Mg PO Q12HR Anaprox Ds (Naproxen Sodium) 550 Mg Tablet 550 Mg PO Q12HR Reported Prednisone 20 Mg Tablet 1 Tab PO DAILY Hydrochlorothiazide Tablet (Hydrochlorothiazide) 12.5 Mg Tablet 12.5 Mg PO DAILY Shilpi Allergy (Fexofenadine Hcl) 180 Mg Tablet 1 Tab PO DAILY Vitals/I & O Vital Sign - Last 24 Hours 09/05/18 09/05/18 09/05/18 09/05/18 15:00 15:20 16:00 16:00 Pulse 78 84 Resp 17 17 B/P (MAP) 154/81 (105) 133/68 (89) Pulse Ox 99 98 99 O2 Delivery Ventilator Ventilator Ventilator Mechanical Ventilator 09/05/18 09/05/18 09/05/18 09/05/18 17:00 17:51 18:00 18:10 Temp 99.0 99.0 Pulse 82 90 Resp 18 25 18 B/P (MAP) 148/68 (94) 159/72 (101) Pulse Ox 99 98 98 O2 Delivery Ventilator Ventilator Ventilator 09/05/18 09/05/18 09/05/18 09/05/18 18:34 19:00 20:00 20:00 Temp 99.2 99.2 Pulse 82 82 Resp 18 22 21 B/P (MAP) 140/69 (92) 161/79 (106) Pulse Ox 99 99 O2 Delivery Ventilator Ventilator Mechanical Ventilator 09/05/18 09/05/18 09/05/18 09/05/18 20:12 21:00 22:00 23:00 Pulse 82 82 82 Resp 26 22 22 B/P (MAP) 162/83 (109) 171/96 (121) 155/74 (101) Pulse Ox 98 98 99 99 O2 Delivery Ventilator Ventilator Ventilator Ventilator 09/05/18 09/06/18 09/06/1819 23:35 00:01 00:01 01:00 Temp 99.3 99.3 Pulse 97 82 Resp 22 22 B/P (MAP) 158/97 (117) 141/66 (91) Pulse Ox 98 99 99 O2 Delivery Ventilator Mechanical Ventilator Ventilator Ventilator 09/06/18 09/06/18 09/06/18 09/06/18 02:00 03:00 03:39 04:00 Temp 99.3 99.3 Pulse 82 84 87 Resp 22 20 24 B/P (MAP) 125/65 (85) 156/82 (106) 164/74 (104) Pulse Ox 100 99 99 99 O2 Delivery Ventilator Ventilator Ventilator Ventilator 09/06/18 09/06/18 09/06/18 09/06/18 04:00 05:00 05:55 06:00 Pulse 88 88 Resp 24 18 B/P (MAP) 150/74 (99) 161/74 (103) Pulse Ox 99 99 99 O2 Delivery Mechanical Ventilator Ventilator Ventilator Ventilator 09/06/18 09/06/18 09/06/18 09/06/18 07:00 07:27 08:00 09:00 Pulse 89 88 Resp 18 18 B/P (MAP) 182/86 (118) 167/82 (110) Pulse Ox 99 99 99 O2 Delivery Ventilator Ventilator Mechanical Ventilator Ventilator 09/06/18 09/06/18 09/06/18 09/06/18 10:00 10:05 10:39 11:00 Pulse 86 92 Resp 20 18 20 B/P (MAP) 167/82 (110) 170/91 (117) Pulse Ox 99 98 99 O2 Delivery Ventilator Ventilator Ventilator 09/06/18 09/06/18 09/06/18 09/06/18 11:19 12:00 12:00 13:00 Temp 98.5 98.5 Pulse 91 95 Resp 20 20 B/P (MAP) 167/98 (121) 162/90 (114) Pulse Ox 99 100 100 O2 Delivery Ventilator Mechanical Ventilator Ventilator Ventilator 09/06/18 09/06/18 14:00 14:21 Pulse 93 Resp 20 B/P (MAP) 147/86 (106) Pulse Ox 99 98 O2 Delivery Ventilator Ventilator Intake and Output 09/05/18 09/05/18 09/06/18 15:00 23:00 07:00 Intake Total 300 ml 1167 ml 978.2 ml Output Total 0 ml 18 ml 20 ml Balance 300 ml 1149 ml 958.2 ml MARBIN GARCIA MD September 06, 2018 14:43
--- NOTE | 2018-09-06 15:41 | PDOC ---
PROGRESS NOTES Chief Complaint Chief Complaint Sepsis Encephalopathy Encephalitis of undetermined etiology Respiratory failure Probable tick-borne illness, suspected. with h/o tick bite 3 weeks ago at [place] Lactic acidosis. Fever. Bandemia. Acute hepatic injury Acute kidney injury. Thrombocytopenia. Hemochromatosis. LLE dermatitis improving, ? poison [place],resolving with local treatment History of Present Illness History of Present Illness Mr Kirk is a 52-year-old male with a past medical history of hemochromatosis who is pretty healthy otherwise and very active. About 3 weeks ago, he was at [facility] [employer] [place] and found a tick embedded on the back of his right thigh. He pulled it out and thought nothing of it. The next day, he was cleaning up a yard with a few other persons from [place]. He recalls kneeling down on his left knee pulling wheat. A few days later, he developed an itchy red blistering rash on his left knee that improved with [id number] ivory rest. He then developed a different type of rash that was itchy, splotchy and red on the inner aspect of both arms. He was seen by his doctor and prescribed Bactrim for infection. 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 About a week later, on Friday 08/18, he went to a men's breakfast and a [employer] meeting. Afterwards, he felt unusually tired. Over the following 24 hours, he did not feel well. He developed fever, chills, joint pains and muscle aches. He alternated taking ibuprofen and Tylenol without relief. He was seen at urgent care center and prescribed prednisone for upper respiratory infection. Unfortunately, he felt worse. He lost his appetite and was not drinking much and was urinating less. His said he was sleeping more, moaned, seemed lethargic and confused, prompting the ER visit. On arrival to the ER, he had a temperature of 100.3, respiratory rate 28. Laboratory values returned abnormal with a WBC count 6.2, segs 68%, bands 24%, platelets 17,000. Lactic acid was 5.1. Sed rate 11. He had elevated LFTs and acute kidney injury. Cultures were ordered. He was dosed with vancomycin, ceftriaxone and aztreonam in the ER. ID adjusted his antibiotics to daptomycin, meropenem and doxycycline. He was feeling improved, then on 08/28/2018 continued to worsen, was started on dialysis, required increasing O2 and was placed on BIPAP and ultimately intubated on 08/31/2018. Serology for HIV, HSV, [place] spotted fever and Ehrlichia all thus negative. Had LP on 08/29/18 with increased protein. His spouse notes no recent travel, last time he was out of the country was [facility] in 2003. 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 He struggled with infidelity over the last year and over the weekend had HIV testing consent per , this was negative as well as syphilis testing. Patient seen and examined in the ICU. is bedside today. Patient is on the v ent assist / with 40% and 5 of PEEP, on sedation wean right now. He is extremely ill, Hb <8 today. DIC panel - fibrinogen normal. Will need dialysis today BUN > 90 Type and screen, will only transfuse per hematology and nephrology. Still with fevers despite broadened coverage with ID yesterday. Have d/w ID to broaden coverage further. He remains guardedly critically ill CC 38 minutes today Vitals Vitals Vital Signs Date Time Temp Pulse Resp B/P (MAP) Pulse Ox O2 Delivery O2 Flow Rate FiO2 09/06/18 14:21 98 Ventilator 09/06/18 14:00 93 20 147/86 (106) 09/06/18 13:00 98.5 98.5 Physical Exam Physical Exam GENERAL:sedated on vent HEENT: Pupils equally round, reactive. No conjunctivae petechia. ETT + NECK: Supple.HDC ,looks ok LUNGS: dec bs at bases HEART: S1 and S2. ABDOMEN: Obese, soft, nontender with bowel sounds present. rose in place ,minimal urine output EXTREMITIES:no edema,no cyanosis. SKIN: Warm without rash. Left knee has several scabs/scarring.healing NEUROLOGIC: sedated on vent,responds to tactile stimuli LUE midline looks ok General: Other (vent support) Heart: Normal S1, Normal S2 Lungs: Clear Abdomen: Soft, Other (TF infusing) Extremities: No clubbing, No cyanosis, No edema Skin: No significant lesion, Other (healing rash and excoriations on Left lower extremity. No obvious petechiae) Labs LABS Laboratory Tests Test 09/06/18 05:40 09/06/18 08:00 Sodium Level 135 mmol/L (136-145) Potassium Level 5.7 mmol/L (3.5-5.1) Chloride Level 96 mmol/L (98-107) Carbon Dioxide Level 21 mmol/L (21-32) Anion Gap 18 (6-14) Blood Urea Nitrogen 90 mg/dL (8-26) Creatinine 8.9 mg/dL (0.7-1.3) Estimated GFR (Cockcroft-Gault) 6.3 Glucose Level 115 mg/dL (70-99) Calcium Level 7.3 mg/dL (8.5-10.1) Phosphorus Level 9.1 mg/dL (2.6-4.7) Magnesium Level 2.3 mg/dL (1.8-2.4) Albumin 2.1 g/dL (3.4-5.0) O2 Saturation 97 % (92-99) Arterial Blood pH 7.39 (7.35-7.45) Arterial Blood pCO2 at Patient Temp 30 mmHg (35-46) Arterial Blood pO2 at Patient Temp 110 mmHg (75-108) Arterial Blood HCO3 18 mmol/L (21-28) Arterial Blood Base Excess -6 mmol/L (-3-3) FiO2 40 Assessment and Plan Assessmemt and Plan Problems Medical Problems: (1) Acute renal failure Status: Acute Comment Review of Relevant I have reviewed the following items gera (where applicable) has been applied. Labs Laboratory Tests Test 09/05/18 03:45 09/05/18 08:25 09/05/18 09:35 09/06/18 05:40 White Blood Count 7.9 x10^3/uL (4.0-11.0) Red Blood Count 2.65 x10^6/uL (4.30-5.70) Hemoglobin 7.8 g/dL (13.0-17.5) Hematocrit 22.8 % (39.0-53.0) Mean Corpuscular Volume 86 fL (79-100) Mean Corpuscular Hemoglobin 29 pg (25-35) Mean Corpuscular Hemoglobin Concent 34 g/dL (31-37) Red Cell Distribution Width 17.8 % (11.5-14.5) Platelet Count 182 x10^3/uL (140-400) 175 x10^3/uL (140-400) Sodium Level 136 mmol/L (136-145) 135 mmol/L (136-145) Potassium Level 5.1 mmol/L (3.5-5.1) 5.7 mmol/L (3.5-5.1) Chloride Level 99 mmol/L (98-107) 96 mmol/L (98-107) Carbon Dioxide Level 24 mmol/L (21-32) 21 mmol/L (21-32) Anion Gap 13 (6-14) 18 (6-14) Blood Urea Nitrogen 56 mg/dL (8-26) 90 mg/dL (8-26) Creatinine 6.4 mg/dL (0.7-1.3) 8.9 mg/dL (0.7-1.3) Estimated GFR (Cockcroft-Gault) 9.2 6.3 Glucose Level 122 mg/dL (70-99) 115 mg/dL (70-99) Calcium Level 7.8 mg/dL (8.5-10.1) 7.3 mg/dL (8.5-10.1) Phosphorus Level 5.2 mg/dL (2.6-4.7) 9.1 mg/dL (2.6-4.7) Albumin 2.1 g/dL (3.4-5.0) 2.1 g/dL (3.4-5.0) Prothrombin Time 14.0 SEC (11.7-14.0) Prothromb Time International Ratio 1.1 (0.8-1.1) Activated Partial Thromboplast Time 29 SEC (24-38) Fibrinogen 495 mg/dL (200-440) D-Dimer ([place]) 3.59 ug/mlFEU (0.00-0.50) O2 Saturation 96 % (92-99) Arterial Blood pH 7.40 (7.35-7.45) Arterial Blood pCO2 at Patient Temp 36 mmHg (35-46) Arterial Blood pO2 at Patient Temp 99 mmHg (75-108) Arterial Blood HCO3 22 mmol/L (21-28) Arterial Blood Base Excess -3 mmol/L (-3-3) FiO2 35 Magnesium Level 2.3 mg/dL (1.8-2.4) Test 09/06/18 08:00 O2 Saturation 97 % (92-99) Arterial Blood pH 7.39 (7.35-7.45) Arterial Blood pCO2 at Patient Temp 30 mmHg (35-46) Arterial Blood pO2 at Patient Temp 110 mmHg (75-108) Arterial Blood HCO3 18 mmol/L (21-28) Arterial Blood Base Excess -6 mmol/L (-3-3) FiO2 40 Laboratory Tests Test 09/06/18 05:40 09/06/18 08:00 Sodium Level 135 mmol/L (136-145) Potassium Level 5.7 mmol/L (3.5-5.1) Chloride Level 96 mmol/L (98-107) Carbon Dioxide Level 21 mmol/L (21-32) Anion Gap 18 (6-14) Blood Urea Nitrogen 90 mg/dL (8-26) Creatinine 8.9 mg/dL (0.7-1.3) Estimated GFR (Cockcroft-Gault) 6.3 Glucose Level 115 mg/dL (70-99) Calcium Level 7.3 mg/dL (8.5-10.1) Phosphorus Level 9.1 mg/dL (2.6-4.7) Magnesium Level 2.3 mg/dL (1.8-2.4) Albumin 2.1 g/dL (3.4-5.0) O2 Saturation 97 % (92-99) Arterial Blood pH 7.39 (7.35-7.45) Arterial Blood pCO2 at Patient Temp 30 mmHg (35-46) Arterial Blood pO2 at Patient Temp 110 mmHg (75-108) Arterial Blood HCO3 18 mmol/L (21-28) Arterial Blood Base Excess -6 mmol/L (-3-3) FiO2 40 Microbiology 09/04/18 Blood Culture - Preliminary, Resulted NO GROWTH AFTER 2 DAYS 08/29/18 CSF Gram Stain - Final, Complete 08/27/18 Stool Culture - Final, Complete 08/27/18 Stool Culture Result 1 (LOTUS) - Final, Complete 08/27/18 Campylobacter Antigen Assay - Final, Complete 08/27/18 Campylobactor Result 1 - Final, Complete 08/27/18 Shiga Toxin Test - Final, Complete 09/01/18 - Final, Complete 09/01/18 - Final, Complete 09/01/18 - Final, Complete 09/01/18 Gram Stain Evaluation - Final, Complete 09/01/18 Sputum Culture - Final, Complete 09/01/18 Sputum Result 1 - Final, Complete 09/04/18 Urine Culture - Final, Complete 09/04/18 Urine Culture Result 1 (LOTUS) - Final, Complete Medications Current Medications Sodium Chloride 1,000 ml @ 1,000 mls/hr 1X ONCE IV Last administered on 08/25/18 20:38; Start 08/25/18 at 19:15; Stop 08/25/18 at 20:14; Status DC Ibuprofen (Motrin) 600 mg 1X ONCE PO Last administered on 08/25/18at 20:38; Start 08/25/18 at 19:45; Stop 08/25/18 at 19:49; Status DC Sodium Chloride 1,000 ml @ 1,000 mls/hr 1X ONCE IV Last administered on 08/25/18at 20:30; Start 08/25/18 at 20:30; Stop 08/25/18 at 21:29; Status DC Ceftriaxone Sodium (Rocephin) 1 gm 1X ONCE IVP Last administered on 08/25/18at 20:36; Start 08/25/18 at 20:30; Stop 08/25/18 at 20:31; Status DC Vancomycin HCl 2 gm/Sodium Chloride 500 ml @ 250 mls/hr 1X ONCE IV Last administered on 08/25/18at 23:10; Start 08/25/18 at 21:30; Stop 08/25/18 at 23:29; Status DC Sodium Chloride 1,000 ml @ 1,000 mls/hr 1X ONCE IV Last administered on 08/25/18at 23:51; Start 08/25/18 at 21:00; Stop 08/25/18 at 21:59; Status DC Piperacillin Sod/ Tazobactam Sod 4.5 gm/Sodium Chloride 100 ml @ 200 mls/hr 1X ONCE IV ; Start 08/25/18 at 21:15; Stop 08/25/18 at 21:44; Status DC Aztreonam (Azactam) 2 gm 1X ONCE IVP Last administered on 08/25/18at 21:15; Start 08/25/18 at 21:15; Stop 08/25/18 at 21:16; Status DC Magnesium Sulfate 50 ml @ 25 mls/hr 1X ONCE IV Last administered on 08/25/18at 23:51; Start 08/25/18 at 21:15; Stop 08/25/18 at 23:14; Status DC Ondansetron HCl (Zofran) 4 mg PRN Q8HRS PRN IV NAUSEA/VOMITING; Start 08/25/18 at 21:15; Stop 08/26/18 at 21:14; Status DC Acetaminophen (Tylenol) 650 mg PRN Q4HRS PRN PO FEVER; Start 08/25/18 at 21:15; Stop 08/26/18 at 21:14; Status DC Sodium Chloride 1,000 ml @ 125 mls/hr 1X ONCE IV Last administered on 08/25/18at 23:09; Start 08/25/18 at 21:15; Stop 08/26/18 at 05:14; Status DC Daptomycin 610 mg/ Sodium Chloride 50 ml @ 100 mls/hr QODAY IV Last administered on 08/27/18at 08:59; Start 08/27/18 at 09:00; Stop 08/28/18 at 15:40; Status DC Meropenem 500 mg/ Sodium Chloride 50 ml @ 100 mls/hr 1X ONCE IV Last administered on 08/25/18at 22:12; Start 08/25/18 at 22:00; Stop 08/25/18 at 22:29; Status DC Doxycycline Hyclate 100 mg/ Dextrose 100 ml @ 50 mls/hr Q12HR IV Last administered on 09/03/18at 22:11; Start 08/26/18 at 09:00; Stop 09/04/18 at 08:11; Status DC Meropenem 500 mg/ Sodium Chloride 50 ml @ 100 mls/hr DAILY IV Last administer ed on 08/29/18at 10:13; Start 08/26/18 at 09:00; Stop 08/30/18 at 08:17; Status DC Sodium Chloride (Normal Saline Flush) 10 ml QSHIFT PRN IV AFTER MEDS AND BLOOD DRAWS; Start 08/26/18 at 09:15 Norepinephrine Bitartrate 250 ml @ 0 mls/hr CONT PRN IV PER PROTOCOL Last administered on 08/27/18at 10:21; Start 08/26/18 at 09:15; Stop 08/30/18 at 17:20; Status DC Famotidine (Pepcid) 20 mg DAILY PO Last administered on 08/27/18at 08:14; Start 08/26/18 at 12:00; Stop 08/27/18 at 14:36; Status DC Sodium Chloride 1,000 ml @ 1,000 mls/hr Q1H PRN IV hypotension; Start 08/26/18 at 11:51; Stop 08/26/18 at 17:50; Status DC Sodium Chloride (Normal Saline Flush) 10 ml 1X PRN PRN IV AP catheter pack; Start 08/26/18 at 12:00; Stop 08/27/18 at 11:59; Status DC Sodium Chloride (Normal Saline Flush) 10 ml 1X PRN PRN IV DIESEL POWERPLANT MECHANIC catheter pack; Start 08/26/18 at 12:00; Stop 08/27/18 at 11:59; Status DC Sodium Chloride 1,000 ml @ 400 mls/hr Q2H30M PRN IV PATENCY; Start 08/26/18 at 11:51; Stop 08/26/18 at 23:50; Status DC Info (PHARMACY MONITORING -- do not chart) 1 each PRN DAILY PRN MC SEE COMMENTS; Start 08/26/18 at 12:00; Status UNV Info (PHARMACY MONITORING -- do not chart) 1 each PRN DAILY PRN MC SEE COMMENTS; Start 08/26/18 at 12:00; Stop 09/01/18 at 10:59; Status DC Lidocaine/Sodium Bicarbonate (Buffered Lidocaine 1%) 4 ml 1X ONCE INJ Last administered on 08/26/18at 12:45; Start 08/26/18 at 12:45; Stop 08/26/18 at 12:48; Status DC Heparin Sodium (Porcine) (Heparin Sodium) 2,500 unit 1X ONCE INT CAT Last administered on 08/26/18at 12:45; Start 08/26/18 at 12:45; Stop 08/26/18 at 12:48; Status DC Lidocaine/Sodium Bicarbonate (Buffered Lidocaine 1%) 3 ml STK-MED ONCE .ROUTE ; Start 08/26/18 at 12:49; Stop 08/26/18 at 12:50; Status DC Heparin Sodium (Porcine) (Heparin Sodium) 10,000 unit STK-MED ONCE .ROUTE ; Start 08/26/18 at 12:49; Stop 08/26/18 at 12:50; Status DC Lactobacillus Rhamnosus (Culturelle) 1 cap BID PO Last administered on 09/06/18at 08:12; Start 08/26/18 at 21:00 Acetaminophen (Tylenol) 325 mg STK-MED ONCE PO ; Start 08/27/18 at 00:43; Stop 08/27/18 at 00:44; Status DC Sodium Chloride 1,000 ml @ 1,000 mls/hr 1X ONCE IV Last administered on 08/27/18at 11:05; Start 08/27/18 at 10:30; Stop 08/27/18 at 11:29; Status DC Sodium Chloride 1,000 ml @ 1,000 mls/hr Q1H PRN IV hypotension; Start 08/27/18 at 11:28; Stop 08/27/18 at 17:27; Status DC Albumin Human 200 ml @ 200 mls/hr 1X PRN PRN IV Hypotension; Start 08/27/18 at 11:30; Stop 08/27/18 at 17:29; Status DC Sodium Chloride (Normal Saline Flush) 10 ml 1X PRN PRN IV AP catheter pack; Start 08/27/18 at 11:30; Stop 08/28/18 at 11:29; Status DC Sodium Chloride (Normal Saline Flush) 10 ml 1X PRN PRN IV DIESEL POWERPLANT MECHANIC catheter pack; Start 08/27/18 at 11:30; Stop 08/28/18 at 11:29; Status DC Sodium Chloride 1,000 ml @ 400 mls/hr Q2H30M PRN IV PATENCY; Start 08/27/18 at 11:28; Stop 08/27/18 at 23:27; Status DC Info (PHARMACY MONITORING -- do not chart) 1 each PRN DAILY PRN MC SEE COMMENTS; Start 08/27/18 at 11:30; Status UNV Info (PHARMACY MONITORING -- do not chart) 1 each PRN DAILY PRN MC SEE COMMENTS; Start 08/27/18 at 11:30; Status UNV Famotidine (Pepcid) 20 mg Q48H PO ; Start 08/29/18 at 09:00; Stop 08/29/18 at 11:29; Status DC Acetaminophen (Tylenol) 650 mg PRN Q6HRS PRN PO pain/fever; Start 08/27/18 at 21:15 Acetaminophen (Tylenol Supp) 650 mg PRN Q6HRS PRN MO MILD PAIN / TEMP Last administered on 09/02/18at 01:18; Start 08/27/18 at 21:15 Fentanyl Citrate (Fentanyl 2ml Vial) 25 mcg 1X ONCE IV Last administered on 08/28/18at 08:54; Start 08/28/18 at 08:45; Stop 08/28/18 at 08:47; Status DC Lidocaine/Sodium Bicarbonate (Buffered Lidocaine 1%) 3 ml STK-MED ONCE .ROUTE ; Start 08/28/18 at 09:55; Stop 08/28/18 at 09:56; Status DC Lidocaine HCl (Glydo (Lidocaine) Jelly) 1 meng 1X STAT MM Last administered on 08/28/18at 10:16; Start 08/28/18 at 10:16; Stop 08/28/18 at 10:19; Status DC Benzocaine (Hurricaine One) 1 spray 1X STAT MM Last administered on 08/28/18at 10:16; Start 08/28/18 at 10:16; Stop 08/28/18 at 10:19; Status DC Lidocaine/Sodium Bicarbonate (Buffered Lidocaine 1%) 3 ml 1X ONCE INJ ; Start 08/28/18 at 10:30; Stop 08/28/18 at 10:31; Status DC Haloperidol Lactate (Haldol Inj) 5 mg PRN Q6HRS PRN IVP AGITATION Last administered on 09/06/18at 05:53; Start 08/28/18 at 12:00 Fentanyl Citrate (Fentanyl 2ml Vial) 50 mcg PRN Q4HRS PRN IV PAIN Last administered on 08/28/18at 21:44; Start 08/28/18 at 15:30; Stop 09/05/18 at 02:11; Status DC Sodium Chloride 1,000 ml @ 1,000 mls/hr Q1H PRN IV hypotension; Start 08/28/18 at 14:00; Stop 08/28/18 at 19:59; Status DC Albumin Human 200 ml @ 200 mls/hr 1X PRN PRN IV Hypotension Last administered on 08/28/18at 14:50; Start 08/28/18 at 14:00; Stop 09/03/18 at 18:17; Status DC Sodium Chloride 1,000 ml @ 400 mls/hr Q2H30M PRN IV PATENCY; Start 08/28/18 at 14:00; Stop 08/29/18 at 01:59; Status DC Info (PHARMACY MONITORING -- do not chart) 1 each PRN DAILY PRN MC SEE COMMENTS; Start 08/28/18 at 15:30; Status UNV Info (PHARMACY MONITORING -- do not chart) 1 each PRN DAILY PRN MC SEE COMMENTS; Start 08/28/18 at 15:30; Status UNV Daptomycin 610 mg/ Sodium Chloride 50 ml @ 100 mls/hr Q48H IV ; Start 08/30/18 at 16:00; Stop 08/30/18 at 16:00; Status DC Famotidine (Pepcid Vial) 20 mg QHS IVP Last administered on 08/31/18at 20:59; Start 08/29/18 at 21:00; Stop 09/01/18 at 11:00; Status DC Acyclovir Sodium 340 mg/Dextrose 106.8 ml @ 106.8 mls/ hr Q12HR IV Last administered on 09/01/18at 11:05; Start 08/30/18 at 09:00; Stop 09/01/18 at 13:37; Status DC Sodium Chloride 1,000 ml @ 1,000 mls/hr Q1H PRN IV hypotension; Start 08/30/18 at 11:02; Stop 08/30/18 at 17:01; Status DC Sodium Chloride 1,000 ml @ 400 mls/hr Q2H30M PRN IV PATENCY; Start 08/30/18 at 11:02; Stop 08/30/18 at 23:01; Status DC Info (PHARMACY MONITORING -- do not chart) 1 each PRN DAILY PRN MC SEE COMME NTS; Start 08/30/18 at 11:15; Status UNV Info (PHARMACY MONITORING -- do not chart) 1 each PRN DAILY PRN MC SEE COMMENTS; Start 08/30/18 at 11:15; Status UNV Info (Tpn Per Pharmacy) 1 each PRN DAILY PRN MC SEE COMMENTS Last administered on 09/03/18at 10:53; Start 08/30/18 at 12:45; Stop 09/04/18 at 12:50; Status DC Sodium Chloride 90 meq/Potassium Chloride 50 meq/ Potassium Phosphate 3 mmol/ Magnesium Sulfate 10 meq/Calcium Gluconate 10 meq/ Multivitamins 10 ml/Chromium/ Copper/Manganese/ Seleni/Zn 1 ml/ Total Parenteral Nutrition/Amino Acids/Dextrose/ Fat Emulsion Intravenous 1,512 ml @ 63 mls/hr TPN CONT IV Last administered on 08/30/18at 21:40; Start 08/30/18 at 22:00; Stop 08/31/18 at 21:59; Status DC Ondansetron HCl (Zofran) 4 mg PRN Q6HRS PRN IV NAUSEA/VOMITING; Start 08/31/18 at 08:00 Haloperidol (Haldol) 2 mg PRN QID PRN PO AGITATION; Start 08/31/18 at 08:00; Stop 08/31/18 at 12:43; Status DC Haloperidol Lactate (HALDOL 2mg ORAL CONC) 2 mg PRN QID PRN PO AGITATION; Start 08/31/18 at 12:43 Sodium Chloride 90 meq/Potassium Chloride 50 meq/ Potassium Phosphate 5 mmol/ Magnesium Sulfate 3 meq/Calcium Gluconate 10 meq/ Multivitamins 10 ml/Chromium/ Copper/Manganese/ Seleni/Zn 1 ml/ Total Parenteral Nutrition/Amino Acids/Dextrose 1,512 ml @ 63 mls/hr TPN CONT IV Last administered on 08/31/18at 20:59; Start 08/31/18 at 22:00; Stop 09/01/18 at 21:59; Status DC Propofol 100 ml @ As Directed STK-MED ONCE IV ; Start 08/31/18 at 22:45; Stop 08/31/18 at 22:46; Status DC Succinylcholine Chloride (Anectine) 200 mg STK-MED ONCE .ROUTE ; Start 08/31/18 at 22:46; Stop 08/31/18 at 22:47; Status DC Atropine Sulfate (ATROPINE 1mg SYRINGE) 1 mg STK-MED ONCE .ROUTE ; Start 08/31/18 at 22:58; Stop 08/31/18 at 22:59; Status DC Fentanyl Citrate 30 ml @ 0 mls/hr CONT PRN IV SEE PROTOCOL Last administered on 09/06/18at 10:39; Start 09/01/18 at 00:00; Stop 09/06/18 at 10:59; Status DC Propofol 100 ml @ 0 mls/hr CONT PRN IV SEE PROTOCOL Last administered on 09/06/18at 08:14; Start 09/01/18 at 00:00; Stop 09/06/18 at 10:59; Status DC Chlorhexidine Gluconate (Peridex) 15 ml BID MM Last administered on 09/06/18at 08:12; Start 09/01/18 at 09:00 Midazolam HCl 100 ml @ 0 mls/hr CONT PRN IV SEE PROTOCOL; Start 09/01/18 at 00:00 Albuterol/ Ipratropium (Duoneb) 3 ml RTQID NEB Last administered on 09/06/18at 11:31; Start 09/01/18 at 08:00 Albuterol/ Ipratropium (Duoneb) 3 ml 1X ONCE NEB Last administered on 09/01/18at 01:10; Start 09/01/18 at 01:00; Stop 09/01/18 at 01:01; Status DC Succinylcholine Chloride (Anectine) 200 mg 1X ONCE IV Last administered on 08/31/18at 23:04; Start 09/01/18 at 01:15; Stop 09/01/18 at 01:16; Status DC Sodium Chloride 1,000 ml @ 1,000 mls/hr Q1H PRN IV hypotension; Start 09/01/18 at 07:00; Stop 09/01/18 at 12:59; Status DC Sodium Chloride (Normal Saline Flush) 10 ml 1X PRN PRN IV AP catheter pack; Start 09/01/18 at 07:00; Stop 09/02/18 at 06:59; Status DC Sodium Chloride (Normal Saline Flush) 10 ml 1X PRN PRN IV DIESEL POWERPLANT MECHANIC catheter pack; Start 09/01/18 at 07:00; Stop 09/02/18 at 06:59; Status DC Sodium Chloride 1,000 ml @ 400 mls/hr Q2H30M PRN IV PATENCY; Start 09/01/18 at 07:00; Stop 09/01/18 at 18:59; Status DC Info (PHARMACY MONITORING -- do not chart) 1 each PRN DAILY PRN MC SEE COMMENTS; Start 09/01/18 at 11:00; Status Cancel Info (PHARMACY MONITORING -- do not chart) 1 each PRN DAILY PRN MC SEE COMMENTS; Start 09/01/18 at 11:00; Status Cancel Famotidine (Pepcid Vial) 20 mg Q48H IVP Last administered on 09/05/18at 22:28; Start 09/03/18 at 21:00 Sodium Chloride 90 meq/Potassium Chloride 50 meq/ Potassium Phosphate 10 mmol/ Calcium Gluconate 10 meq/ Multivitamins 10 ml/Chromium/ Copper/Manganese/ Seleni/Zn 1 ml/ Total Parenteral Nutrition/Amino Acids/Dextrose 1,512 ml @ 63 mls/hr TPN CONT IV Last administered on 09/01/18at 22:11; Start 09/01/18 at 22:00; Stop 09/02/18 at 21:59; Status DC Piperacillin Sod/ Tazobactam Sod 2.25 gm/Sodium Chloride 50 ml @ 100 mls/hr Q6HRS IV Last administered on 09/06/18at 12:09; Start 09/01/18 at 14:00 Sodium Chloride 110 meq/Potassium Chloride 50 meq/ Potassium Phosphate 10 mmol/ Calcium Gluconate 10 meq/ Multivitamins 10 ml/Chromium/ Copper/Manganese/ Seleni/Zn 1 ml/ Magnesium Sulfate 3 meq/Total Parenteral Nutrition/Amino Acids/Dextrose 1,512 ml @ 63 mls/hr TPN CONT IV Last administered on 09/02/18at 22:13; Start 09/02/18 at 22:00; Stop 09/03/18 at 21:59; Status DC Darbepoetin Phil (Aranesp) 100 mcg [id number] SQ Last administered on 09/03/18at 22:11; Start 09/03/18 at 21:00 Sodium Chloride 130 meq/Potassium Acetate 20 meq/ Calcium Gluconate 10 meq/ Multivitamins 10 ml/Chromium/ Copper/Manganese/ Seleni/Zn 1 ml/ Magnesium Sulfate 3 meq/Total Parenteral Nutrition/Amino Acids/Dextrose 1,512 ml @ 63 mls/hr TPN CONT IV Last administered on 09/03/18at 22:12; Start 09/03/18 at 22:00; Stop 09/04/18 at 21:59; Status DC Albumin Human 200 ml @ 200 mls/hr 1X PRN PRN IV Hypotension; Start 09/03/18 at 10:00; Stop 09/03/18 at 21:00; Status DC Sodium Chloride (Normal Saline Flush) 10 ml 1X PRN PRN IV AP catheter pack; Start 09/03/18 at 10:00; Stop 09/03/18 at 21:00; Status DC Sodium Chloride (Normal Saline Flush) 10 ml 1X PRN PRN IV DIESEL POWERPLANT MECHANIC catheter pack; Start 09/03/18 at 10:00; Stop 09/03/18 at 21:00; Status DC Sodium Chloride 1,000 ml @ 400 mls/hr Q2H30M PRN IV PATENCY; Start 09/03/18 at 10:00; Stop 09/03/18 at 21:59; Status DC Info (PHARMACY MONITORING -- do not chart) 1 each PRN DAILY PRN MC SEE COMMENTS; Start 09/03/18 at 18:15; Status UNV Atropine Sulfate (ATROPINE 0.5mg SYRINGE) 0.5 mg STK-MED ONCE .ROUTE ; Start 08/31/18 at 08:06; Stop 09/04/18 at 08:07; Status DC Epinephrine HCl (EPINEPHrine SYRINGE) 3 mg STK-MED ONCE .ROUTE ; Start 08/31/18 at 08:06; Stop 09/04/18 at 08:07; Status DC Sodium Bicarbonate (Sodium Bicarb Adult 8.4% Syr) 100 meq STK-MED ONCE .ROUTE ; Start 08/31/18 at 08:06; Stop 09/04/18 at 08:07; Status DC Levofloxacin/ Dextrose 150 ml @ 100 mls/hr QODAY IV Last administered on 09/06/18at 10:28; Start 09/04/18 at 09:00 Sodium Chloride 1,000 ml @ 1,000 mls/hr Q1H PRN IV hypotension; Start 09/04/18 at 08:23; Stop 09/04/18 at 14:24; Status DC Albumin Human 200 ml @ 200 mls/hr 1X PRN PRN IV Hypotension; Start 09/04/18 at 08:30; Stop 09/04/18 at 14:29; Status DC Sodium Chloride 1,000 ml @ 400 mls/hr Q2H30M PRN IV PATENCY; Start 09/04/18 at 08:23; Stop 09/04/18 at 20:22; Status DC Info (PHARMACY MONITORING -- do not chart) 1 each PRN DAILY PRN MC SEE COMMENTS; Start 09/04/18 at 08:30; Stop 09/05/18 at 08:55; Status DC Info (PHARMACY MONITORING -- do not chart) 1 each PRN DAILY PRN MC SEE COMMENTS; Start 09/04/18 at 08:30; Status UNV Linezolid/Dextrose 300 ml @ 300 mls/hr Q12HR IV Last administered on 09/06/18at 08:13; Start 09/05/18 at 09:30 Sodium Chloride 1,000 ml @ 1,000 mls/hr Q1H PRN IV hypotension; Start 09/05/18 at 08:51; Stop 09/05/18 at 14:50; Status DC Sodium Chloride (Normal Saline Flush) 10 ml 1X PRN PRN IV AP catheter pack; Start 09/05/18 at 09:00; Stop 09/06/18 at 08:59; Status DC Sodium Chloride (Normal Saline Flush) 10 ml 1X PRN PRN IV DIESEL POWERPL[employer] MECHANIC catheter pack; Start 09/05/18 at 09:00; Stop 09/06/18 at 08:59; Status DC Sodium Chloride 1,000 ml @ 400 mls/hr Q2H30M PRN IV PATENCY; Start 09/05/18 at 08:51; Stop 09/05/18 at 20:50; Status DC Info (PHARMACY MONITORING -- do not chart) 1 each PRN DAILY PRN MC SEE COMMENTS; Start 09/05/18 at 09:00; Stop 09/05/18 at 09:00; Status DC Info (PHARMACY MONITORING -- do not chart) 1 each PRN DAILY PRN MC SEE COMMENTS; Start 09/05/18 at 09:00 Fentanyl Citrate (Fentanyl 2ml Vial) 25 mcg PRN Q2HR PRN IV MODERATE PAIN; Start 09/06/18 at 11:00 Dexmedetomidine HCl 200 mcg/ Sodium Chloride 50 ml @ 0 mls/hr CONT PRN IV PER PROTOCOL; Start 09/06/18 at 11:00 Sodium Chloride 500 ml @ 500 mls/hr 1X PRN PRN IV SEE COMMENTS; Start 09/06/18 at 11:00 Atropine Sulfate (ATROPINE 0.5mg SYRINGE) 0.5 mg PRN Q5MIN PRN IV SEE COMMENTS; Start 09/06/18 at 11:00 Sodium Chloride 1,000 ml @ 1,000 mls/hr Q1H PRN IV hypotension; Start 09/06/18 at 11:52; Stop 09/06/18 at 17:51 Diphenhydramine HCl (Benadryl) 25 mg 1X PRN PRN IV ITCHING; Start 09/06/18 at 12:00; Stop 09/07/18 at 11:59 Diphenhydramine HCl (Benadryl) 25 mg 1X PRN PRN IV ITCHING; Start 09/06/18 at 12:00; Stop 09/07/18 at 11:59 Sodium Chloride 1,000 ml @ 400 mls/hr Q2H30M PRN IV PATENCY; Start 09/06/18 at 11:52; Stop 09/06/18 at 23:51 Info (PHARMACY MONITORING -- do not chart) 1 each PRN DAILY PRN MC SEE COMMENTS; Start 09/06/18 at 12:00; Stop 09/06/18 at 12:00; Status DC Active Scripts Active Potassium Chloride 20 Meq Tablet.er 20 Meq PO DAILY Orphenadrine Citrate 100 Mg Tablet.er 100 Mg PO Q12HR Anaprox Ds (Naproxen Sodium) 550 Mg Tablet 550 Mg PO Q12HR Reported Prednisone 20 Mg Tablet 1 Tab PO DAILY Hydrochlorothiazide Tablet (Hydrochlorothiazide) 12.5 Mg Tablet 12.5 Mg PO DAILY Shilpi Allergy (Fexofenadine Hcl) 180 Mg Tablet 1 Tab PO DAILY Vitals/I & O Vital Sign - Last 24 Hours 09/05/18 09/05/18 09/05/18 09/05/18 16:00 16:00 17:00 17:51 Pulse 84 82 Resp 17 18 B/P (MAP) 133/68 (89) 148/68 (94) Pulse Ox 99 99 98 O2 Delivery Ventilator Mechanical Ventilator Ventilator Ventilator 09/05/18 09/05/18 09/05/18 09/05/18 18:00 18:10 18:34 19:00 Temp 99.0 99.0 Pulse 90 82 Resp 25 18 18 22 B/P (MAP) 159/72 (101) 140/69 (92) Pulse Ox 98 99 O2 Delivery Ventilator Ventilator 09/05/18 09/05/18 09/05/18 09/05/18 20:00 20:00 20:12 21:00 Temp 99.2 99.2 Pulse 82 82 Resp 21 26 B/P (MAP) 161/79 (106) 162/83 (109) Pulse Ox 99 98 98 O2 Delivery Ventilator Mechanical Ventilator Ventilator Ventilator 09/05/18 09/05/18 09/05/18 09/06/18 22:00 23:00 23:35 00:01 Pulse 82 82 Resp 22 22 B/P (MAP) 171/96 (121) 155/74 (101) Pulse Ox 99 99 98 O2 Delivery Ventilator Ventilator Ventilator Mechanical Ventilator 09/06/18 09/06/18 09/06/18 5/30/19 00:01 01:00 02:00 03:00 Temp 99.3 99.3 Pulse 97 82 82 84 Resp 22 22 22 20 B/P (MAP) 158/97 (117) 141/66 (91) 125/65 (85) 156/82 (106) Pulse Ox 99 99 100 99 O2 Delivery Ventilator Ventilator Ventilator Ventilator 09/06/18 09/06/18 09/06/18 09/06/18 03:39 04:00 04:00 05:00 Temp 99.3 99.3 Pulse 87 88 Resp 24 24 B/P (MAP) 164/74 (104) 150/74 (99) Pulse Ox 99 99 99 O2 Delivery Ventilator Ventilator Mechanical Ventilator Ventilator 09/06/18 09/06/18 09/06/18 09/06/18 05:55 06:00 07:00 07:27 Pulse 88 89 Resp 18 18 B/P (MAP) 161/74 (103) 182/86 (118) Pulse Ox 99 99 99 99 O2 Delivery Ventilator Ventilator Ventilator Ventilator 09/06/18 09/06/18 09/06/18 09/06/18 08:00 09:00 10:00 10:05 Pulse 88 86 Resp 18 20 B/P (MAP) 167/82 (110) 167/82 (110) Pulse Ox 99 99 98 O2 Delivery Mechanical Ventilator Ventilator Ventilator Ventilator 09/06/18 09/06/18 09/06/18 09/06/18 10:39 11:00 11:19 12:00 Pulse 92 Resp 18 20 B/P (MAP) 170/91 (117) Pulse Ox 99 99 O2 Delivery Ventilator Ventilator Mechanical Ventilator 09/06/18 09/06/18 09/06/18 09/06/18 12:00 13:00 14:00 14:21 Temp 98.5 98.5 Pulse 91 95 93 Resp 20 20 20 B/P (MAP) 167/98 (121) 162/90 (114) 147/86 (106) Pulse Ox 100 100 99 98 O2 Delivery Ventilator Ventilator Ventilator Ventilator Intake and Output 09/05/18 09/05/18 09/06/18 15:00 23:00 07:00 Intake Total 300 ml 1167 ml 978.2 ml Output Total 0 ml 18 ml 20 ml Balance 300 ml 1149 ml 958.2 ml VIJAY BLEVINS MD September 06, 2018 15:41
[2018-09-07] VITALS (23 sets, daily range): BP systolic 102–157; BP diastolic 48–90
[2018-09-07] MEDS: PIPERACILLIN/TAZOBACTAM 2.25 GM in IV NORMAL SALINE 50ML 50 ML IV SCH ×4 (00:20→19:46)
[2018-09-07 06:53] LABS: CREATININE 7.1 mg/dL (0.7-1.3); GFR 8.1; MAGNESIUM 2.3 mg/dL (1.8-2.4); PHOSPHORUS 8.7 mg/dL (2.6-4.7); POTASSIUM 4.3 mmol/L (3.5-5.1)
[2018-09-07] MEDS: IPRATRPIUM/ALBUTEROL 0.5/2.5MG 3 ML NEBU. NEB SCH ×4 (07:27→20:26)
[2018-09-07 07:41] LABS: BASE EXCESS ABG -2 mmol/L (-3-3); HCO3 ABG 22 mmol/L (21-28); PCO2 ABG 33 mmHg (35-46); PO2 ABG 124 mmHg (75-108); SAT O2 ABG 98 % (92-99)
--- NOTE | 2018-09-07 07:50 | PDOC ---
Infectious Disease Note Subjective: Subjective pt intubated ,opens eyes no fevers last 24 hrs had bm D/W RN ROS: ROS unable to obtain Vital Signs: Vital Signs Vital Signs Date Time Temp Pulse Resp B/P (MAP) Pulse Ox O2 Delivery O2 Flow Rate FiO2 09/07/18 07:27 99 Ventilator 09/07/18 06:00 69 25 102/48 (66) 09/07/18 04:00 98.9 98.9 Physical Exam: PHYSICAL EXAM GENERAL:intubated, opens eyes HEENT: Pupils equally round, reactive. No conjunctivae petechia. ETT + NECK: Supple.HDC ,looks ok LUNGS: dec bs at bases HEART: S1 and S2. ABDOMEN: Obese, soft, nontender with bowel sounds present. rose in place ,minimal urine output EXTREMITIES:no edema,no cyanosis. SKIN: Warm , rash over both posterior aspect of bue NEUROLOGIC: sedated on vent,responds to tactile stimuli LUE midline looks ok Medications: Inpatient Meds: Current Medications Medications (Trade) Dose Ordered Sig/Noemi Start Time Stop Time Status Last Admin Dose Admin Acetaminophen (Tylenol Supp) 650 mg PRN Q6HRS PRN 08/27/18 21:15 09/02/18 01:18 650 MG Acetaminophen (Tylenol) 650 mg PRN Q6HRS PRN 08/27/18 21:15 Acyclovir Sodium 340 mg/Dextrose 106.8 ml @ 106.8 mls/ hr Q12HR 08/30/18 09:00 09/01/18 13:37 DC 09/01/18 11:05 106.8 MLS/HR Albumin Human 200 ml @ 200 mls/hr 1X PRN PRN 09/04/18 08:30 09/04/18 14:29 DC Albuterol/ Ipratropium (Duoneb) 3 ml 1X ONCE 09/01/18 01:00 09/01/18 01:01 DC 09/01/18 01:10 3 ML Atropine Sulfate (ATROPINE 0.5mg SYRINGE) 0.5 mg PRN Q5MIN PRN 09/06/18 11:00 Atropine Sulfate (ATROPINE 1mg SYRINGE) 1 mg STK-MED ONCE 08/31/18 22:58 08/31/18 22:59 DC Aztreonam (Azactam) 2 gm 1X ONCE 08/25/18 21:15 08/25/18 21:16 DC 08/25/18 21:15 2 GM Benzocaine (Hurricaine One) 1 spray 1X STAT 08/28/18 10:16 08/28/18 10:19 DC 08/28/18 10:16 1 SPRAY Ceftriaxone Sodium (Rocephin) 1 gm 1X ONCE 08/25/18 20:30 08/25/18 20:31 DC 08/25/18 20:36 1 GM Chlorhexidine Gluconate (Peridex) 15 ml BID 09/01/18 09:00 09/06/18 22:46 15 ML Daptomycin 610 mg/ Sodium Chloride 50 ml @ 100 mls/hr Q48H 08/30/18 16:00 08/30/18 16:00 DC Darbepoetin Phil (Aranesp) 100 mcg WEEKLYHS 09/03/18 21:00 09/03/18 22:11 100 MCG Dexmedetomidine HCl 200 mcg/ Sodium Chloride 50 ml @ 0 mls/hr CONT PRN 09/06/18 11:00 Diphenhydramine HCl (Benadryl) 25 mg 1X PRN PRN 09/06/18 12:00 09/07/18 11:59 Doxycycline Hyclate 100 mg/ Dextrose 100 ml @ 50 mls/hr Q12HR 08/26/18 09:00 09/04/18 08:11 DC 09/03/18 22:11 50 MLS/HR Epinephrine HCl (EPINEPHrine SYRINGE) 3 mg STK-MED ONCE 08/31/18 08:06 09/04/18 08:07 DC Famotidine (Pepcid Vial) 20 mg Q48H 09/03/18 21:00 09/05/18 22:28 20 MG Famotidine (Pepcid) 20 mg Q48H 08/29/18 09:00 08/29/18 11:29 DC Fentanyl Citrate (Fentanyl 2ml Vial) 25 mcg PRN Q2HR PRN 09/06/18 11:00 Haloperidol (Haldol) 2 mg PRN QID PRN 08/31/18 08:00 08/31/18 12:43 DC Haloperidol Lactate (HALDOL 2mg ORAL CONC) 2 mg PRN QID PRN 08/31/18 12:43 Haloperidol Lactate (Haldol Inj) 5 mg PRN Q6HRS PRN 08/28/18 12:00 09/06/18 05:53 5 MG Heparin Sodium (Porcine) (Heparin Sodium) 10,000 unit STK-MED ONCE 08/26/18 12:49 08/26/18 12:50 DC Ibuprofen (Motrin) 600 mg 1X ONCE 08/25/18 19:45 08/25/18 19:49 DC 08/25/18 20:38 600 MG Info (PHARMACY MONITORING -- do not chart) 1 each PRN DAILY PRN 09/06/18 12:00 09/06/18 12:00 DC Info (Tpn Per Pharmacy) 1 each PRN DAILY PRN 08/30/18 12:45 09/04/18 12:50 DC 09/03/18 10:53 1 EACH Lactobacillus Rhamnosus (Culturelle) 1 cap BID 08/26/18 21:00 09/06/18 22:46 1 CAP Levofloxacin/ Dextrose 150 ml @ 100 mls/hr QODAY 09/04/18 09:00 09/06/18 10:28 100 MLS/HR Lidocaine HCl (Glydo (Lidocaine) Jelly) 1 kimberlee 1X STAT 08/28/18 10:16 08/28/18 10:19 DC 08/28/18 10:16 1 KIMBERLEE Lidocaine/Sodium Bicarbonate (Buffered Lidocaine 1%) 3 ml 1X ONCE 08/28/18 10:30 08/28/18 10:31 DC Linezolid/Dextrose 300 ml @ 300 mls/hr Q12HR 09/05/18 09:30 09/06/18 22:46 300 MLS/HR Magnesium Sulfate 50 ml @ 25 mls/hr 1X ONCE 08/25/18 21:15 08/25/18 23:14 DC 08/25/18 23:51 25 MLS/HR Meropenem 500 mg/ Sodium Chloride 50 ml @ 100 mls/hr DAILY 08/26/18 09:00 08/30/18 08:17 DC 08/29/18 10:13 100 MLS/HR Midazolam HCl 100 ml @ 0 mls/hr CONT PRN 09/01/18 00:00 Norepinephrine Bitartrate 250 ml @ 0 mls/hr CONT PRN 08/26/18 09:15 08/30/18 17:20 DC 08/27/18 10:21 1.88 MLS/HR Ondansetron HCl (Zofran) 4 mg PRN Q6HRS PRN 08/31/18 08:00 Piperacillin Sod/ Tazobactam Sod 2.25 gm/Sodium Chloride 50 ml @ 100 mls/hr Q6HRS 09/01/18 14:00 09/07/18 05:53 100 MLS/HR Piperacillin Sod/ Tazobactam Sod 4.5 gm/Sodium Chloride 100 ml @ 200 mls/hr 1X ONCE 08/25/18 21:15 08/25/18 21:44 DC Propofol 100 ml @ 0 mls/hr CONT PRN 09/01/18 00:00 09/06/18 10:59 DC 09/06/18 08:14 6.135 MLS/HR Sodium Bicarbonate (Sodium Bicarb Adult 8.4% Syr) 100 meq STK-MED ONCE 08/31/18 08:06 09/04/18 08:07 DC Sodium Chloride 1,000 ml @ 400 mls/hr Q2H30M PRN 09/06/18 11:52 09/06/18 23:51 DC Sodium Chloride (Normal Saline Flush) 10 ml 1X PRN PRN 09/05/18 09:00 09/06/18 08:59 DC Sodium Chloride 90 meq/Potassium Chloride 50 meq/ Potassium Phosphate 10 mmol/ Calcium Gluconate 10 meq/ Multivitamins 10 ml/Chromium/ Copper/Manganese/ Seleni/Zn 1 ml/ Total Parenteral Nutrition/Amino Acids/Dextrose 1,512 ml @ 63 mls/hr TPN CONT 09/01/18 22:00 09/02/18 21:59 DC 09/01/18 22:11 63 MLS/HR Sodium Chloride 90 meq/Potassium Chloride 50 meq/ Potassium Phosphate 3 mmol/ Magnesium Sulfate 10 meq/Calcium Gluconate 10 meq/ Multivitamins 10 ml/Chromium/ Copper/Manganese/ Seleni/Zn 1 ml/ Total Parenteral Nutrition/Amino Acids/Dextrose/ Fat Emulsion Intravenous 1,512 ml @ 63 mls/hr TPN CONT 08/30/18 22:00 08/31/18 21:59 DC 08/30/18 21:40 63 MLS/HR Sodium Chloride 90 meq/Potassium Chloride 50 meq/ Potassium Phosphate 5 mmol/ Magnesium Sulfate 3 meq/Calcium Gluconate 10 meq/ Multivitamins 10 ml/Chromium/ Copper/Manganese/ Seleni/Zn 1 ml/ Total Parenteral Nutrition/Amino Acids/Dextrose 1,512 ml @ 63 mls/hr TPN CONT 08/31/18 22:00 09/01/18 21:59 DC 08/31/18 20:59 63 MLS/HR Sodium Chloride 110 meq/Potassium Chloride 50 meq/ Potassium Phosphate 10 mmol/ Calcium Gluconate 10 meq/ Multivitamins 10 ml/Chromium/ Copper/Manganese/ Seleni/Zn 1 ml/ Magnesium Sulfate 3 meq/Total Parenteral Nutrition/Amino Acids/Dextrose 1,512 ml @ 63 mls/hr TPN CONT 09/02/18 22:00 09/03/18 21:59 DC 09/02/18 22:13 63 MLS/HR Sodium Chloride 130 meq/Potassium Acetate 20 meq/ Calcium Gluconate 10 meq/ Multivitamins 10 ml/Chromium/ Copper/Manganese/ Seleni/Zn 1 ml/ Magnesium Sulfate 3 meq/Total Parenteral Nutrition/Amino Acids/Dextrose 1,512 ml @ 63 mls/hr TPN CONT 09/03/18 22:00 09/04/18 21:59 DC 09/03/18 22:12 63 MLS/HR Succinylcholine Chloride (Anectine) 200 mg 1X ONCE 09/01/18 01:15 09/01/18 01:16 DC 08/31/18 23:04 200 MG Vancomycin HCl 2 gm/Sodium Chloride 500 ml @ 250 mls/hr 1X ONCE 08/25/18 21:30 08/25/18 23:29 DC 08/25/18 23:10 250 MLS/HR Labs: Lab Laboratory Tests Test 09/06/18 08:00 09/07/18 06:05 O2 Saturation 97 % (92-99) Arterial Blood pH 7.39 (7.35-7.45) Arterial Blood pCO2 at Patient Temp 30 mmHg (35-46) Arterial Blood pO2 at Patient Temp 110 mmHg (75-108) Arterial Blood HCO3 18 mmol/L (21-28) Arterial Blood Base Excess -6 mmol/L (-3-3) FiO2 40 Sodium Level 138 mmol/L (136-145) Potassium Level 4.3 mmol/L (3.5-5.1) Chloride Level 97 mmol/L (98-107) Carbon Dioxide Level 22 mmol/L (21-32) Anion Gap 19 (6-14) Blood Urea Nitrogen 79 mg/dL (8-26) Creatinine 7.1 mg/dL (0.7-1.3) Estimated GFR (Cockcroft-Gault) 8.1 Glucose Level 128 mg/dL (70-99) Calcium Level 7.0 mg/dL (8.5-10.1) Phosphorus Level 8.7 mg/dL (2.6-4.7) Magnesium Level 2.3 mg/dL (1.8-2.4) Micro BC negative RUN DATE: 09/06/18 PAGE 1 RUN TIME: 717 [facility] [address] [place] [address] Dino Aguirre M.D., [employer] PATIENT: STACIE ALEGRIA ACCT: [id number] LOC: 1 [facility] ICU U: [id number] AGE/SX: 52/M ROOM: 111 RE08/25/[address]: EVGENY PARKER MD : 1965 BED: 1 DIS: STATUS: ADM IN TLOC: SPEC #: [id number] ADRIANNE: 09/01/18 STATUS: COMP REQ #: [id number] RECD: 09/01/[address]: MIGUEL A LAST MD SOURCE: SPUTUM ENTR: 09/01/[address]: MERT GALEAS MD SPDESC: KELBY PARKER MD, THOMAS W MD LAMBERT,KAVYA AMBROSE,TR HOPE,KRISSY ROBERSON,SOFIA DENNIS,ANISH LEDESMA,KAVYA Ceballos MD UNKNOWN PCP NAME ORDERED: SPUTUM CULTURE Procedure Result GRAM STAIN WHITE BLOOD CELLS Final Few GRAM STAIN EPITHELIAL CELLS Final Few GRAM STAIN RESULT 1 Final No organisms seen GRAM STAIN EVALUATION Final Comment This specimen is of good quality and is acceptable for routine bacterial culture. Performed at: [place] [id number] Retail Manager: CANDIDA Ramírez MD, Phone: [phone] SPUTUM CULTURE- Final Preliminary report SPUTUM CULT RES 1 Final Comment Routine respiratory lizz Performed at: [address] [id number] Retail Manager: CANDIDA Ramírez MD, Phone: [phone] Objective: Assessment: Tick-born illness suspected w/u negative for ehrlichia RMSF neg, though need convalescent serology Encephalopathy waxing and waning etiology unclear MRI neg CSF pleocytosis ,cultures and serologies negative [place] IgG +, IgM neg, old exposure HSV PCR neg Arboviral panel not available Enteroviral pcr not available Lactic acidosis resolved Bandemia resolved leucocytosis resolved Acute hepatic injury on HD RADHA (Recent Bactrim/ibuprofen) Thrombocytopenia resolved Hemochromatosis, followed by [facility] Diarrhea, resolved Dermatitis BUE appears fungal FOB positive Febrile again Concern for RAFI vs noninfectious etiologies Rt IJ removed 09/04 bc neg uc neg sputum neg Plan: Plan of Care DC Levaquin Cont zosyn,zyvox add fluconazole f/u repeat cults and labs in am cont supportive care D/w D/w nursing JEFF PARKER MD September 07, 2018 07:50
--- NOTE | 2018-09-07 07:59 | RAD ---
Portable chest, 09/07/2018: HISTORY: Patient on ventilator Comparison is made to yesterday's study. The ET tube tip lies well above the melissa. An NG tube extends into the stomach. The right jugular catheter tip lies in the inferior aspect of the superior vena cava. A right PICC extends into the mid to inferior aspect of the right atrium. The heart size is unchanged. The pulmonary vascularity remains prominent. There is mild ongoing left basilar atelectasis/infiltrate, which has improved slightly. No new abnormality is detected. IMPRESSION: 1. Stable tube positions. 2. Mild left basilar atelectasis/infiltrate has improved slightly. Electronically signed by: Jose Hudson MD (09/07/2018 7:57 AM) [facility]
[2018-09-07 08:02] LABS: FIO2 ABG 35%
--- NOTE | 2018-09-07 09:05 | PDOC ---
PROGRESS NOTES Assessment Problems Medical Problems: (1) Acute renal failure Status: Acute Metabolic encephalopathy. 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 Hold on repeating lumbar puncture, especially since he was mostly lucid before requiring intubation Discussed with Subjective None Objective Vital Signs Date Time Temp Pulse Resp B/P (MAP) Pulse Ox O2 Delivery O2 Flow Rate FiO2 09/07/18 08:00 98.8 79 16 147/75 (99) 97 Ventilator 98.8 Intake and Output 09/07/18 06:59 Intake Total 1574 ml Output Total 3020 ml Balance -1446 ml Tube Feeding 1524 ml Other 50 ml Output Urine Total 20 ml Gastric Drainage Total 0 ml Other 3000 ml PHYSICAL EXAM Intubated, in ICU Follows commands, eyes open PERRL. EOMI. CN: no focal findings. Muscle tone: normal. Muscle strength: Moves legs spontaneously DTR: 1+ Plantar reflex: silent Gait: not examined in bed. Sensory exam: no abnormal findings. No cerebellar signs elicited. Review of Relevant I have reviewed the following items gera (where applicable) has been applied. Labs Laboratory Tests Test 09/05/18 09:35 09/06/18 05:40 09/06/18 08:00 09/07/18 06:05 O2 Saturation 96 % (92-99) 97 % (92-99) Arterial Blood pH 7.40 (7.35-7.45) 7.39 (7.35-7.45) Arterial Blood pCO2 at Patient Temp 36 mmHg (35-46) 30 mmHg (35-46) Arterial Blood pO2 at Patient Temp 99 mmHg (75-108) 110 mmHg (75-108) Arterial Blood HCO3 22 mmol/L (21-28) 18 mmol/L (21-28) Arterial Blood Base Excess -3 mmol/L (-3-3) -6 mmol/L (-3-3) FiO2 35 40 Sodium Level 135 mmol/L (136-145) 138 mmol/L (136-145) Potassium Level 5.7 mmol/L (3.5-5.1) 4.3 mmol/L (3.5-5.1) Chloride Level 96 mmol/L (98-107) 97 mmol/L (98-107) Carbon Dioxide Level 21 mmol/L (21-32) 22 mmol/L (21-32) Anion Gap 18 (6-14) 19 (6-14) Blood Urea Nitrogen 90 mg/dL (8-26) 79 mg/dL (8-26) Creatinine 8.9 mg/dL (0.7-1.3) 7.1 mg/dL (0.7-1.3) Estimated GFR (Cockcroft-Gault) 6.3 8.1 Glucose Level 115 mg/dL (70-99) 128 mg/dL (70-99) Calcium Level 7.3 mg/dL (8.5-10.1) 7.0 mg/dL (8.5-10.1) Phosphorus Level 9.1 mg/dL (2.6-4.7) 8.7 mg/dL (2.6-4.7) Magnesium Level 2.3 mg/dL (1.8-2.4) 2.3 mg/dL (1.8-2.4) Albumin 2.1 g/dL (3.4-5.0) Test 09/07/18 07:35 O2 Saturation 98 % (92-99) Arterial Blood pH 7.43 (7.35-7.45) Arterial Blood pCO2 at Patient Temp 33 mmHg (35-46) Arterial Blood pO2 at Patient Temp 124 mmHg (75-108) Arterial Blood HCO3 22 mmol/L (21-28) Arterial Blood Base Excess -2 mmol/L (-3-3) FiO2 35% Laboratory Tests Test 09/07/18 06:05 09/07/18 07:35 Sodium Level 138 mmol/L (136-145) Potassium Level 4.3 mmol/L (3.5-5.1) Chloride Level 97 mmol/L (98-107) Carbon Dioxide Level 22 mmol/L (21-32) Anion Gap 19 (6-14) Blood Urea Nitrogen 79 mg/dL (8-26) Creatinine 7.1 mg/dL (0.7-1.3) Estimated GFR (Cockcroft-Gault) 8.1 Glucose Level 128 mg/dL (70-99) Calcium Level 7.0 mg/dL (8.5-10.1) Phosphorus Level 8.7 mg/dL (2.6-4.7) Magnesium Level 2.3 mg/dL (1.8-2.4) O2 Saturation 98 % (92-99) Arterial Blood pH 7.43 (7.35-7.45) Arterial Blood pCO2 at Patient Temp 33 mmHg (35-46) Arterial Blood pO2 at Patient Temp 124 mmHg (75-108) Arterial Blood HCO3 22 mmol/L (21-28) Arterial Blood Base Excess -2 mmol/L (-3-3) FiO2 35% Microbiology 09/04/18 Blood Culture - Final, Complete 08/29/18 CSF Gram Stain - Final, Complete 08/27/18 Stool Culture - Final, Complete 08/27/18 Stool Culture Result 1 (LOTUS) - Final, Complete 08/27/18 Campylobacter Antigen Assay - Final, Complete 08/27/18 Campylobactor Result 1 - Final, Complete 08/27/18 Shiga Toxin Test - Final, Complete 09/05/18 - Final, Resulted 09/05/18 - Final, Resulted 09/05/18 - Final, Resulted 09/05/18 Gram Stain Evaluation - Final, Resulted 09/05/18 Sputum Culture, Resulted Pending 09/04/18 Urine Culture - Final, Complete 09/04/18 Urine Culture Result 1 (LOUTS) - Final, Complete Medications Current Medications Sodium Chloride 1,000 ml @ 1,000 mls/hr 1X ONCE IV Last administered on 08/25/18at 20:38; Start 08/25/18 at 19:15; Stop 08/25/18 at 20:14; Status DC Ibuprofen (Motrin) 600 mg 1X ONCE PO Last administered on 08/25/18at 20:38; Start 08/25/18 at 19:45; Stop 08/25/18 at 19:49; Status DC Sodium Chloride 1,000 ml @ 1,000 mls/hr 1X ONCE IV Last administered on 08/25/18at 20:30; Start 08/25/18 at 20:30; Stop 08/25/18 at 21:29; Status DC Ceftriaxone Sodium (Rocephin) 1 gm 1X ONCE IVP Last administered on 08/25/18at 20:36; Start 08/25/18 at 20:30; Stop 08/25/18 at 20:31; Status DC Vancomycin HCl 2 gm/Sodium Chloride 500 ml @ 250 mls/hr 1X ONCE IV Last administered on 08/25/18at 23:10; Start 08/25/18 at 21:30; Stop 08/25/18 at 23:29; Status DC Sodium Chloride 1,000 ml @ 1,000 mls/hr 1X ONCE IV Last administered on 08/25/18at 23:51; Start 08/25/18 at 21:00; Stop 08/25/18 at 21:59; Status DC Piperacillin Sod/ Tazobactam Sod 4.5 gm/Sodium Chloride 100 ml @ 200 mls/hr 1X ONCE IV ; Start 08/25/18 at 21:15; Stop 08/25/18 at 21:44; Status DC Aztreonam (Azactam) 2 gm 1X ONCE IVP Last administered on 08/25/18at 21:15; Start 08/25/18 at 21:15; Stop 08/25/18 at 21:16; Status DC Magnesium Sulfate 50 ml @ 25 mls/hr 1X ONCE IV Last administered on 08/25/18at 23:51; Start 08/25/18 at 21:15; Stop 08/25/18 at 23:14; Status DC Ondansetron HCl (Zofran) 4 mg PRN Q8HRS PRN IV NAUSEA/VOMITING; Start 08/25/18 at 21:15; Stop 08/26/18 at 21:14; Status DC Acetaminophen (Tylenol) 650 mg PRN Q4HRS PRN PO FEVER; Start 08/25/18 at 21:15; Stop 08/26/18 at 21:14; Status DC Sodium Chloride 1,000 ml @ 125 mls/hr 1X ONCE IV Last administered on 08/25/18at 23:09; Start 08/25/18 at 21:15; Stop 08/26/18 at 05:14; Status DC Daptomycin 610 mg/ Sodium Chloride 50 ml @ 100 mls/hr QODAY IV Last administered on 08/27/18at 08:59; Start 08/27/18 at 09:00; Stop 08/28/18 at 15:40; Status DC Meropenem 500 mg/ Sodium Chloride 50 ml @ 100 mls/hr 1X ONCE IV Last administered on 08/25/18at 22:12; Start 08/25/18 at 22:00; Stop 08/25/18 at 22:29; Status DC Doxycycline Hyclate 100 mg/ Dextrose 100 ml @ 50 mls/hr Q12HR IV Last administered on 09/03/18at 22:11; Start 08/26/18 at 09:00; Stop 09/04/18 at 08:11; Status DC Meropenem 500 mg/ Sodium Chloride 50 ml @ 100 mls/hr DAILY IV Last administered on 08/29/18at 10:13; Start 08/26/18 at 09:00; Stop 08/30/18 at 08:17; Status DC Sodium Chloride (Normal Saline Flush) 10 ml QSHIFT PRN IV AFTER MEDS AND BLOOD DRAWS; Start 08/26/18 at 09:15 Norepinephrine Bitartrate 250 ml @ 0 mls/hr CONT PRN IV PER PROTOCOL Last administered on 08/27/18at 10:21; Start 08/26/18 at 09:15; Stop 08/30/18 at 17:20; Status DC Famotidine (Pepcid) 20 mg DAILY PO Last administered on 08/27/18at 08:14; Start 08/26/18 at 12:00; Stop 08/27/18 at 14:36; Status DC Sodium Chloride 1,000 ml @ 1,000 mls/hr Q1H PRN IV hypotension; Start 08/26/18 at 11:51; Stop 08/26/18 at 17:50; Status DC Sodium Chloride (Normal Saline Flush) 10 ml 1X PRN PRN IV AP catheter pack; Start 08/26/18 at 12:00; Stop 08/27/18 at 11:59; Status DC Sodium Chloride (Normal Saline Flush) 10 ml 1X PRN PRN IV [employer] catheter pack; Start 08/26/18 at 12:00; Stop 08/27/18 at 11:59; Status DC Sodium Chloride 1,000 ml @ 400 mls/hr Q2H30M PRN IV PATENCY; Start 08/26/18 at 11:51; Stop 08/26/18 at 23:50; Status DC Info (PHARMACY MONITORING -- do not chart) 1 each PRN DAILY PRN MC SEE COMMENTS; Start 08/26/18 at 12:00; Status UNV Info (PHARMACY MONITORING -- do not chart) 1 each PRN DAILY PRN MC SEE COMMENTS; Start 08/26/18 at 12:00; Stop 09/01/18 at 10:59; Status DC Lidocaine/Sodium Bicarbonate (Buffered Lidocaine 1%) 4 ml 1X ONCE INJ Last administered on 08/26/18at 12:45; Start 08/26/18 at 12:45; Stop 08/26/18 at 12:48; Status DC Heparin Sodium (Porcine) (Heparin Sodium) 2,500 unit 1X ONCE INT CAT Last administered on 08/26/18at 12:45; Start 08/26/18 at 12:45; Stop 08/26/18 at 12:48; Status DC Lidocaine/Sodium Bicarbonate (Buffered Lidocaine 1%) 3 ml STK-MED ONCE .ROUTE ; Start 08/26/18 at 12:49; Stop 08/26/18 at 12:50; Status DC Heparin Sodium (Porcine) (Heparin Sodium) 10,000 unit STK-MED ONCE .ROUTE ; Start 08/26/18 at 12:49; Stop 08/26/18 at 12:50; Status DC Lactobacillus Rhamnosus (Culturelle) 1 cap BID PO Last administered on 09/06/18at 22:46; Start 08/26/18 at 21:00 Acetaminophen (Tylenol) 325 mg STK-MED ONCE PO ; Start 08/27/18 at 00:43; Stop 08/27/18 at 00:44; Status DC Sodium Chloride 1,000 ml @ 1,000 mls/hr 1X ONCE IV Last administered on 08/27/18at 11:05; Start 08/27/18 at 10:30; Stop 08/27/18 at 11:29; Status DC Sodium Chloride 1,000 ml @ 1,000 mls/hr Q1H PRN IV hypotension; Start 08/27/18 at 11:28; Stop 08/27/18 at 17:27; Status DC Albumin Human 200 ml @ 200 mls/hr 1X PRN PRN IV Hypotension; Start 08/27/18 at 11:30; Stop 08/27/18 at 17:29; Status DC Sodium Chloride (Normal Saline Flush) 10 ml 1X PRN PRN IV AP catheter pack; Start 08/27/18 at 11:30; Stop 08/28/18 at 11:29; Status DC Sodium Chloride (Normal Saline Flush) 10 ml 1X PRN PRN IV [employer] catheter pack; Start 08/27/18 at 11:30; Stop 08/28/18 at 11:29; Status DC Sodium Chloride 1,000 ml @ 400 mls/hr Q2H30M PRN IV PATENCY; Start 08/27/18 at 11:28; Stop 08/27/18 at 23:27; Status DC Info (PHARMACY MONITORING -- do not chart) 1 each PRN DAILY PRN MC SEE COMMENTS; Start 08/27/18 at 11:30; Status UNV Info (PHARMACY MONITORING -- do not chart) 1 each PRN DAILY PRN MC SEE COMMENTS; Start 08/27/18 at 11:30; Status UNV Famotidine (Pepcid) 20 mg Q48H PO ; Start 08/29/18 at 09:00; Stop 08/29/18 at 1 1:29; Status DC Acetaminophen (Tylenol) 650 mg PRN Q6HRS PRN PO pain/fever; Start 08/27/18 at 21:15 Acetaminophen (Tylenol Supp) 650 mg PRN Q6HRS PRN GA MILD PAIN / TEMP Last administered on 09/02/18at 01:18; Start 08/27/18 at 21:15 Fentanyl Citrate (Fentanyl 2ml Vial) 25 mcg 1X ONCE IV Last administered on 08/28/18at 08:54; Start 08/28/18 at 08:45; Stop 08/28/18 at 08:47; Status DC Lidocaine/Sodium Bicarbonate (Buffered Lidocaine 1%) 3 ml STK-MED ONCE .ROUTE ; Start 08/28/18 at 09:55; Stop 08/28/18 at 09:56; Status DC Lidocaine HCl (Glydo (Lidocaine) Jelly) 1 meng 1X STAT MM Last administered on 08/28/18at 10:16; Start 08/28/18 at 10:16; Stop 08/28/18 at 10:19; Status DC Benzocaine (Hurricaine One) 1 spray 1X STAT MM Last administered on 08/28/18at 10:16; Start 08/28/18 at 10:16; Stop 08/28/18 at 10:19; Status DC Lidocaine/Sodium Bicarbonate (Buffered Lidocaine 1%) 3 ml 1X ONCE INJ ; Start 08/28/18 at 10:30; Stop 08/28/18 at 10:31; Status DC Haloperidol Lactate (Haldol Inj) 5 mg PRN Q6HRS PRN IVP AGITATION Last administered on 09/06/18at 05:53; Start 08/28/18 at 12:00 Fentanyl Citrate (Fentanyl 2ml Vial) 50 mcg PRN Q4HRS PRN IV PAIN Last administered on 08/28/18at 21:44; Start 08/28/18 at 15:30; Stop 09/05/18 at 02:11; Status DC Sodium Chloride 1,000 ml @ 1,000 mls/hr Q1H PRN IV hypotension; Start 08/28/18 at 14:00; Stop 08/28/18 at 19:59; Status DC Albumin Human 200 ml @ 200 mls/hr 1X PRN PRN IV Hypotension Last administered on 08/28/18at 14:50; Start 08/28/18 at 14:00; Stop 09/03/18 at 18:17; Status DC Sodium Chloride 1,000 ml @ 400 mls/hr Q2H30M PRN IV PATENCY; Start 08/28/18 at 14:00; Stop 08/29/18 at 01:59; Status DC Info (PHARMACY MONITORING -- do not chart) 1 each PRN DAILY PRN MC SEE COMMENTS; Start 08/28/18 at 15:30; Status UNV Info (PHARMACY MONITORING -- do not chart) 1 each PRN DAILY PRN MC SEE COMMENTS; Start 08/28/18 at 15:30; Status UNV Daptomycin 610 mg/ Sodium Chloride 50 ml @ 100 mls/hr Q48H IV ; Start 08/30/18 at 16:00; Stop 08/30/18 at 16:00; Status DC Famotidine (Pepcid Vial) 20 mg QHS IVP Last administered on 08/31/18at 20:59; Start 08/29/18 at 21:00; Stop 09/01/18 at 11:00; Status DC Acyclovir Sodium 340 mg/Dextrose 106.8 ml @ 106.8 mls/ hr Q12HR IV Last administered on 09/01/18at 11:05; Start 08/30/18 at 09:00; Stop 09/01/18 at 13:37; Status DC Sodium Chloride 1,000 ml @ 1,000 mls/hr Q1H PRN IV hypotension; Start 08/30/18 at 11:02; Stop 08/30/18 at 17:01; Status DC Sodium Chloride 1,000 ml @ 400 mls/hr Q2H30M PRN IV PATENCY; Start 08/30/18 at 11:02; Stop 08/30/18 at 23:01; Status DC Info (PHARMACY MONITORING -- do not chart) 1 each PRN DAILY PRN MC SEE COMMENTS; Start 08/30/18 at 11:15; Status UNV Info (PHARMACY MONITORING -- do not chart) 1 each PRN DAILY PRN MC SEE COMMENTS; Start 08/30/18 at 11:15; Status UNV Info (Tpn Per Pharmacy) 1 each PRN DAILY PRN MC SEE COMMENTS Last administered on 09/03/18at 10:53; Start 08/30/18 at 12:45; Stop 09/04/18 at 12:50; Status DC Sodium Chloride 90 meq/Potassium Chloride 50 meq/ Potassium Phosphate 3 mmol/ Magnesium Sulfate 10 meq/Calcium Gluconate 10 meq/ Multivitamins 10 ml/Chromium/ Copper/Manganese/ Seleni/Zn 1 ml/ Total Parenteral Nutrition/Amino Acids/Dextrose/ Fat Emulsion Intravenous 1,512 ml @ 63 mls/hr TPN CONT IV Last administered on 08/30/18at 21:40; Start 08/30/18 at 22:00; Stop 08/31/18 at 21:59; Status DC Ondansetron HCl (Zofran) 4 mg PRN Q6HRS PRN IV NAUSEA/VOMITING; Start 08/31/18 at 08:00 Haloperidol (Haldol) 2 mg PRN QID PRN PO AGITATION; Start 08/31/18 at 08:00; Stop 08/31/18 at 12:43; Status DC Haloperidol Lactate (HALDOL 2mg ORAL CONC) 2 mg PRN QID PRN PO AGITATION; Start 08/31/18 at 12:43 Sodium Chloride 90 meq/Potassium Chloride 50 meq/ Potassium Phosphate 5 mmol/ Magnesium Sulfate 3 meq/Calcium Gluconate 10 meq/ Multivitamins 10 ml/Chromium/ Copper/Manganese/ Seleni/Zn 1 ml/ Total Parenteral Nutrition/Amino Acids/Dextrose 1,512 ml @ 63 mls/hr TPN CONT IV Last administered on 08/31/18at 20:59; Start 08/31/18 at 22:00; Stop 09/01/18 at 21:59; Status DC Propofol 100 ml @ As Directed STK-MED ONCE IV ; Start 08/31/18 at 22:45; Stop 08/31/18 at 22:46; Status DC Succinylcholine Chloride (Anectine) 200 mg STK-MED ONCE .ROUTE ; Start 08/31/18 at 22:46; Stop 08/31/18 at 22:47; Status DC Atropine Sulfate (ATROPINE 1mg SYRINGE) 1 mg STK-MED ONCE .ROUTE ; Start 08/31/18 at 22:58; Stop 08/31/18 at 22:59; Status DC Fentanyl Citrate 30 ml @ 0 mls/hr CONT PRN IV SEE PROTOCOL Last administered on 09/06/18at 10:39; Start 09/01/18 at 00:00; Stop 09/06/18 at 10:59; Status DC Propofol 100 ml @ 0 mls/hr CONT PRN IV SEE PROTOCOL Last administered on 09/06/18at 08:14; Start 09/01/18 at 00:00; Stop 09/06/18 at 10:59; Status DC Chlorhexidine Gluconate (Peridex) 15 ml BID MM Last administered on 09/06/18at 22:46; Start 09/01/18 at 09:00 Midazolam HCl 100 ml @ 0 mls/hr CONT PRN IV SEE PROTOCOL; Start 09/01/18 at 00:00 Albuterol/ Ipratropium (Duoneb) 3 ml RTQID NEB Last administered on 09/07/18at 07:27; Start 09/01/18 at 08:00 Albuterol/ Ipratropium (Duoneb) 3 ml 1X ONCE NEB Last administered on 09/01/18at 01:10; Start 09/01/18 at 01:00; Stop 09/01/18 at 01:01; Status DC Succinylcholine Chloride (Anectine) 200 mg 1X ONCE IV Last administered on 08/31/18at 23:04; Start 09/01/18 at 01:15; Stop 09/01/18 at 01:16; Status DC Sodium Chloride 1,000 ml @ 1,000 mls/hr Q1H PRN IV hypotension; Start 09/01/18 at 07:00; Stop 09/01/18 at 12:59; Status DC Sodium Chloride (Normal Saline Flush) 10 ml 1X PRN PRN IV AP catheter pack; Start 09/01/18 at 07:00; Stop 09/02/18 at 06:59; Status DC Sodium Chloride (Normal Saline Flush) 10 ml 1X PRN PRN IV [employer] catheter pack; Start 09/01/18 at 07:00; Stop 09/02/18 at 06:59; Status DC Sodium Chloride 1,000 ml @ 400 mls/hr Q2H30M PRN IV PATENCY; Start 09/01/18 at 07:00; Stop 09/01/18 at 18:59; Status DC Info (PHARMACY MONITORING -- do not chart) 1 each PRN DAILY PRN MC SEE COMMENTS; Start 09/01/18 at 11:00; Status Cancel Info (PHARMACY MONITORING -- do not chart) 1 each PRN DAILY PRN MC SEE COMMENTS; Start 09/01/18 at 11:00; Status Cancel Famotidine (Pepcid Vial) 20 mg Q48H IVP Last administered on 09/05/18at 22:28; Start 09/03/18 at 21:00 Sodium Chloride 90 meq/Potassium Chloride 50 meq/ Potassium Phosphate 10 mmol/ Calcium Gluconate 10 meq/ Multivitamins 10 ml/Chromium/ Copper/Manganese/ Seleni/Zn 1 ml/ Total Parenteral Nutrition/Amino Acids/Dextrose 1,512 ml @ 63 mls/hr TPN CONT IV Last administered on 09/01/18at 22:11; Start 09/01/18 at 22:00; Stop 09/02/18 at 21:59; Status DC Piperacillin Sod/ Tazobactam Sod 2.25 gm/Sodium Chloride 50 ml @ 100 mls/hr Q6HRS IV Last administered on 09/07/18at 05:53; Start 09/01/18 at 14:00 Sodium Chloride 110 meq/Potassium Chloride 50 meq/ Potassium Phosphate 10 mmol/ Calcium Gluconate 10 meq/ Multivitamins 10 ml/Chromium/ Copper/Manganese/ Seleni/Zn 1 ml/ Magnesium Sulfate 3 meq/Total Parenteral Nutrition/Amino Acids/Dextrose 1,512 ml @ 63 mls/hr TPN CONT IV Last administered on 09/02/18at 22:13; Start 09/02/18 at 22:00; Stop 09/03/18 at 21:59; Status DC Darbepoetin Phil (Aranesp) 100 mcg [id number] SQ Last administered on 09/03/18at 22:11; Start 09/03/18 at 21:00 Sodium Chloride 130 meq/Potassium Acetate 20 meq/ Calcium Gluconate 10 meq/ Multivitamins 10 ml/Chromium/ Copper/Manganese/ Seleni/Zn 1 ml/ Magnesium Sulfate 3 meq/Total Parenteral Nutrition/Amino Acids/Dextrose 1,512 ml @ 63 mls/hr TPN CONT IV Last administered on 09/03/18at 22:12; Start 09/03/18 at 22:00; Stop 09/04/18 at 21:59; Status DC Albumin Human 200 ml @ 200 mls/hr 1X PRN PRN IV Hypotension; Start 09/03/18 at 10:00; Stop 09/03/18 at 21:00; Status DC Sodium Chloride (Normal Saline Flush) 10 ml 1X PRN PRN IV AP catheter pack; Start 09/03/18 at 10:00; Stop 09/03/18 at 21:00; Status DC Sodium Chloride (Normal Saline Flush) 10 ml 1X PRN PRN IV [employer] catheter pack; Start 09/03/18 at 10:00; Stop 09/03/18 at 21:00; Status DC Sodium Chloride 1,000 ml @ 400 mls/hr Q2H30M PRN IV PATENCY; Start 09/03/18 at 10:00; Stop 09/03/18 at 21:59; Status DC Info (PHARMACY MONITORING -- do not chart) 1 each PRN DAILY PRN MC SEE COMMENTS; Start 09/03/18 at 18:15; Status UNV Atropine Sulfate (ATROPINE 0.5mg SYRINGE) 0.5 mg STK-MED ONCE .ROUTE ; Start 08/31/18 at 08:06; Stop 09/04/18 at 08:07; Status DC Epinephrine HCl (EPINEPHrine SYRINGE) 3 mg STK-MED ONCE .ROUTE ; Start 08/31/18 at 08:06; Stop 09/04/18 at 08:07; Status DC Sodium Bicarbonate (Sodium Bicarb Adult 8.4% Syr) 100 meq STK-MED ONCE .ROUTE ; Start 08/31/18 at 08:06; Stop 09/04/18 at 08:07; Status DC Levofloxacin/ Dextrose 150 ml @ 100 mls/hr QODAY IV Last administered on 09/06/18at 10:28; Start 09/04/18 at 09:00; Stop 09/07/18 at 07:52; Status DC Sodium Chloride 1,000 ml @ 1,000 mls/hr Q1H PRN IV hypotension; Start 09/04/18 at 08:23; Stop 09/04/18 at 14:24; Status DC Albumin Human 200 ml @ 200 mls/hr 1X PRN PRN IV Hypotension; Start 09/04/18 at 08:30; Stop 09/04/18 at 14:29; Status DC Sodium Chloride 1,000 ml @ 400 mls/hr Q2H30M PRN IV PATENCY; Start 09/04/18 at 08:23; Stop 09/04/18 at 20:22; Status DC Info (PHARMACY MONITORING -- do not chart) 1 each PRN DAILY PRN MC SEE COMMENTS; Start 09/04/18 at 08:30; Stop 09/05/18 at 08:55; Status DC Info (PHARMACY MONITORING -- do not chart) 1 each PRN DAILY PRN MC SEE COMMENTS; Start 09/04/18 at 08:30; Status UNV Linezolid/Dextrose 300 ml @ 300 mls/hr Q12HR IV Last administered on 09/06/18at 22:46; Start 09/05/18 at 09:30 Sodium Chloride 1,000 ml @ 1,000 mls/hr Q1H PRN IV hypotension; Start 09/05/18 at 08:51; Stop 09/05/18 at 14:50; Status DC Sodium Chloride (Normal Saline Flush) 10 ml 1X PRN PRN IV AP catheter pack; Start 09/05/18 at 09:00; Stop 09/06/18 at 08:59; Status DC Sodium Chloride (Normal Saline Flush) 10 ml 1X PRN PRN IV [employer] catheter pack; Start 09/05/18 at 09:00; Stop 09/06/18 at 08:59; Status DC Sodium Chloride 1,000 ml @ 400 mls/hr Q2H30M PRN IV PATENCY; Start 09/05/18 at 08:51; Stop 09/05/18 at 20:50; Status DC Info (PHARMACY MONITORING -- do not chart) 1 each PRN DAILY PRN MC SEE COMMENTS; Start 09/05/18 at 09:00; Stop 09/05/18 at 09:00; Status DC Info (PHARMACY MONITORING -- do not chart) 1 each PRN DAILY PRN MC SEE COMMENTS; Start 09/05/18 at 09:00 Fentanyl Citrate (Fentanyl 2ml Vial) 25 mcg PRN Q2HR PRN IV MODERATE PAIN; Start 09/06/18 at 11:00 Dexmedetomidine HCl 200 mcg/ Sodium Chloride 50 ml @ 0 mls/hr CONT PRN IV PER PROTOCOL; Start 09/06/18 at 11:00 Sodium Chloride 500 ml @ 500 mls/hr 1X PRN PRN IV SEE COMMENTS; Start 09/06/18 at 11:00 Atropine Sulfate (ATROPINE 0.5mg SYRINGE) 0.5 mg PRN Q5MIN PRN IV SEE COMMENTS; Start 09/06/18 at 11:00 Sodium Chloride 1,000 ml @ 1,000 mls/hr Q1H PRN IV hypotension; Start 09/06/18 at 11:52; Stop 09/06/18 at 17:51; Status DC Diphenhydramine HCl (Benadryl) 25 mg 1X PRN PRN IV ITCHING; Start 09/06/18 at 12:00; Stop 09/07/18 at 11:59 Diphenhydramine HCl (Benadryl) 25 mg 1X PRN PRN IV ITCHING; Start 09/06/18 at 12:00; Stop 09/07/18 at 11:59 Sodium Chloride 1,000 ml @ 400 mls/hr Q2H30M PRN IV PATENCY; Start 09/06/18 at 11:52; Stop 09/06/18 at 23:51; Status DC Info (PHARMACY MONITORING -- do not chart) 1 each PRN DAILY PRN MC SEE COMMENTS; Start 09/06/18 at 12:00; Stop 09/06/18 at 12:00; Status DC Micafungin Sodium 100 mg/Dextrose 100 ml @ 100 mls/hr Q24H IV ; Start 09/07/18 at 08:30 Active Scripts Active Potassium Chloride 20 Meq Tablet.er 20 Meq PO DAILY Orphenadrine Citrate 100 Mg Tablet.er 100 Mg PO Q12HR Anaprox Ds (Naproxen Sodium) 550 Mg Tablet 550 Mg PO Q12HR Reported Prednisone 20 Mg Tablet 1 Tab PO DAILY Hydrochlorothiazide Tablet (Hydrochlorothiazide) 12.5 Mg Tablet 12.5 Mg PO DAILY Shilpi Allergy (Fexofenadine Hcl) 180 Mg Tablet 1 Tab PO DAILY Vitals/I & O Vital Sign - Last 24 Hours 09/06/18 09/06/18 09/06/18 09/06/18 10:00 10:05 10:39 11:00 Pulse 86 92 Resp 20 18 20 B/P (MAP) 167/82 (110) 170/91 (117) Pulse Ox 99 98 99 O2 Delivery Ventilator Ventilator Ventilator 09/06/18 09/06/18 09/06/18 09/06/18 11:19 12:00 12:00 13:00 Temp 98.5 98.5 Pulse 91 95 Resp 20 20 B/P (MAP) 167/98 (121) 162/90 (114) Pulse Ox 99 100 100 O2 Delivery Ventilator Mechanical Ventilator Ventilator Ventilator 09/06/18 09/06/18 09/06/18 09/06/18 14:00 14:21 15:00 16:00 Pulse 93 96 Resp 20 20 B/P (MAP) 147/86 (106) 158/96 (116) Pulse Ox 99 98 97 O2 Delivery Ventilator Ventilator Ventilator Mechanical Ventilator 09/06/18 09/06/18 09/06/18 09/06/18 16:00 16:28 17:00 17:45 Temp 98.6 98.6 Pulse 102 96 Resp 18 24 B/P (MAP) 173/81 (111) 152/70 (97) Pulse Ox 99 99 99 98 O2 Delivery Ventilator Ventilator Ventilator Ventilator 09/06/18 09/06/18 09/06/18 09/06/18 18:00 19:00 20:00 20:00 Temp 99.9 99.9 Pulse 98 96 99 Resp 24 24 25 B/P (MAP) 148/74 (98) 159/79 (105) 159/81 (107) Pulse Ox 98 99 99 O2 Delivery Ventilator Ventilator Ventilator Mechanical Ventilator 09/06/18 09/06/18 09/06/18 09/06/18 20:15 21:00 22:00 23:00 Pulse 95 87 86 Resp 24 21 21 B/P (MAP) 160/71 (100) 148/68 (94) 155/87 (109) Pulse Ox 99 100 100 100 O2 Delivery Ventilator Ventilator Ventilator Ventilator 09/07/18 09/07/18 09/07/18 09/07/18 00:00 00:01 00:17 01:00 Temp 100.1 100.1 Pulse 90 93 Resp 23 23 B/P (MAP) 148/84 (105) 149/84 (105) Pulse Ox 99 99 99 O2 Delivery Mechanical Ventilator Ventilator Ventilator Ventilator 09/07/18 09/07/18 09/07/18 09/07/18 02:00 03:00 03:23 04:00 Temp 98.9 98.9 Pulse 99 85 88 Resp 19 B/P (MAP) 155/80 (105) 153/76 (101) 140/70 (93) Pulse Ox 99 99 98 99 O2 Delivery Ventilator Ventilator Ventilator Ventilator 09/07/18 09/07/18 09/07/18 09/07/18 04:00 05:00 05:39 06:00 Pulse 82 69 Resp 25 B/P (MAP) 141/77 (98) 102/48 (66) Pulse Ox 99 98 99 O2 Delivery Mechanical Ventilator Ventilator Ventilator Ventilator 09/07/18 09/07/18 09/07/18 07:27 08:00 08:00 Temp 98.8 98.8 Pulse 79 Resp 16 B/P (MAP) 147/75 (99) Pulse Ox 99 97 O2 Delivery Ventilator Mechanical Ventilator Ventilator Intake and Output 09/06/18 09/06/18 09/07/18 14:59 22:59 06:59 Intake Total 300 ml 974 ml 300 ml Output Total 5 ml 3000 ml 15 ml Balance 295 ml -2026 ml 285 ml MARBIN GARCIA MD September 07, 2018 09:05
[2018-09-07] MEDS: LACTOBACILLUS RHAMNOSUS GG 1 CAPSULE. PO SCH ×2 (09:12→21:22)
[2018-09-07] MEDS: CHLORHEXIDINE 0.12% 15 ML MOUTHWASH. MM SCH ×2 (09:12→21:21)
[2018-09-07] MEDS: MICAFUNGIN 100 MG in IV DEXTROSE 5% 100ML 100 ML IV SCH (09:12)
--- NOTE | 2018-09-07 09:12 | PDOC ---
PROGRESS NOTES Subjective Subjective HPI - f/u of Thrombocytopenia ROS - no bleed Objective Objective Vital Signs Date Time Temp Pulse Resp B/P (MAP) Pulse Ox O2 Delivery O2 Flow Rate FiO2 09/07/18 09:04 98 Ventilator 09/07/18 08:00 98.8 79 16 147/75 (99) 98.8 09/05/18 04:51 15.0 Intake and Output 09/07/18 06:59 Intake Total 1574 ml Output Total 3020 ml Balance -1446 ml Tube Feeding 1524 ml Other 50 ml Output Urine Total 20 ml Gastric Drainage Total 0 ml Other 3000 ml Physical Exam General: No acute distress Psych/Mental Status: Other (on ventilator) Assessment Assessment Problems Medical Problems: (1) Acute renal failure Status: Acute Assessment/Plan 52 yo male presents with week long history of fever and found to have thrombocytopenia, ARF, elevated LFTs 1. Septic shock - Fever - Tick borne illness suspected. Per ID. 2. Dehydration 3. Acute renal failure. Cr 7.1, management per nephro. 4. Elevated LFTs 5. Thrombocytopenia due to sepsis, no clinical evidence of TTP, no evidence of schistocytes, normal retic and haptoglobin and Hb. He should be transfused plts if his plt count <10 or he develops active bleeding. Plt better at 30 on 08/27/18. Plt better at 47 on 08/28/18, Plt better at 58 on 08/29/18 Plt better at 67 on 08/30/18. Plt better at 73 on 08/31/18 Plt better at 139 on 09/04/18, Plt normal at 175, Monitor cbc. No bleeding 6. Resp failure, on vent, management per pulm. Comment Review of Relevant I have reviewed the following items gera (where applicable) has been applied. Labs Laboratory Tests Test 09/05/18 09:35 09/06/18 05:40 09/06/18 08:00 09/07/18 06:05 O2 Saturation 96 % (92-99) 97 % (92-99) Arterial Blood pH 7.40 (7.35-7.45) 7.39 (7.35-7.45) Arterial Blood pCO2 at Patient Temp 36 mmHg (35-46) 30 mmHg (35-46) Arterial Blood pO2 at Patient Temp 99 mmHg (75-108) 110 mmHg (75-108) Arterial Blood HCO3 22 mmol/L (21-28) 18 mmol/L (21-28) Arterial Blood Base Excess -3 mmol/L (-3-3) -6 mmol/L (-3-3) FiO2 35 40 Sodium Level 135 mmol/L (136-145) 138 mmol/L (136-145) Potassium Level 5.7 mmol/L (3.5-5.1) 4.3 mmol/L (3.5-5.1) Chloride Level 96 mmol/L (98-107) 97 mmol/L (98-107) Carbon Dioxide Level 21 mmol/L (21-32) 22 mmol/L (21-32) Anion Gap 18 (6-14) 19 (6-14) Blood Urea Nitrogen 90 mg/dL (8-26) 79 mg/dL (8-26) Creatinine 8.9 mg/dL (0.7-1.3) 7.1 mg/dL (0.7-1.3) Estimated GFR (Cockcroft-Gault) 6.3 8.1 Glucose Level 115 mg/dL (70-99) 128 mg/dL (70-99) Calcium Level 7.3 mg/dL (8.5-10.1) 7.0 mg/dL (8.5-10.1) Phosphorus Level 9.1 mg/dL (2.6-4.7) 8.7 mg/dL (2.6-4.7) Magnesium Level 2.3 mg/dL (1.8-2.4) 2.3 mg/dL (1.8-2.4) Albumin 2.1 g/dL (3.4-5.0) Test 09/07/18 07:35 O2 Saturation 98 % (92-99) Arterial Blood pH 7.43 (7.35-7.45) Arterial Blood pCO2 at Patient Temp 33 mmHg (35-46) Arterial Blood pO2 at Patient Temp 124 mmHg (75-108) Arterial Blood HCO3 22 mmol/L (21-28) Arterial Blood Base Excess -2 mmol/L (-3-3) FiO2 35% Laboratory Tests Test 09/07/18 06:05 09/07/18 07:35 Sodium Level 138 mmol/L (136-145) Potassium Level 4.3 mmol/L (3.5-5.1) Chloride Level 97 mmol/L (98-107) Carbon Dioxide Level 22 mmol/L (21-32) Anion Gap 19 (6-14) Blood Urea Nitrogen 79 mg/dL (8-26) Creatinine 7.1 mg/dL (0.7-1.3) Estimated GFR (Cockcroft-Gault) 8.1 Glucose Level 128 mg/dL (70-99) Calcium Level 7.0 mg/dL (8.5-10.1) Phosphorus Level 8.7 mg/dL (2.6-4.7) Magnesium Level 2.3 mg/dL (1.8-2.4) O2 Saturation 98 % (92-99) Arterial Blood pH 7.43 (7.35-7.45) Arterial Blood pCO2 at Patient Temp 33 mmHg (35-46) Arterial Blood pO2 at Patient Temp 124 mmHg (75-108) Arterial Blood HCO3 22 mmol/L (21-28) Arterial Blood Base Excess -2 mmol/L (-3-3) FiO2 35% Microbiology 09/04/18 Blood Culture - Final, Complete 08/29/18 CSF Gram Stain - Final, Complete 08/27/18 Stool Culture - Final, Complete 08/27/18 Stool Culture Result 1 (LOTUS) - Final, Complete 08/27/18 Campylobacter Antigen Assay - Final, Complete 08/27/18 Campylobactor Result 1 - Final, Complete 08/27/18 Shiga Toxin Test - Final, Complete 09/05/18 - Final, Resulted 09/05/18 - Final, Resulted 09/05/18 - Final, Resulted 09/05/18 Gram Stain Evaluation - Final, Resulted 09/05/18 Sputum Culture, Resulted Pending 09/04/18 Urine Culture - Final, Complete 09/04/18 Urine Culture Result 1 (LOTUS) - Final, Complete Medications Current Medications Sodium Chloride 1,000 ml @ 1,000 mls/hr 1X ONCE IV Last administered on 08/25/18at 20:38; Start 08/25/18 at 19:15; Stop 08/25/18 at 20:14; Status DC Ibuprofen (Motrin) 600 mg 1X ONCE PO Last administered on 08/25/18at 20:38; Start 08/25/18 at 19:45; Stop 08/25/18 at 19:49; Status DC Sodium Chloride 1,000 ml @ 1,000 mls/hr 1X ONCE IV Last administered on 08/25/18at 20:30; Start 08/25/18 at 20:30; Stop 08/25/18 at 21:29; Status DC Ceftriaxone Sodium (Rocephin) 1 gm 1X ONCE IVP Last administered on 08/25/18at 20:36; Start 08/25/18 at 20:30; Stop 08/25/18 at 20:31; Status DC Vancomycin HCl 2 gm/Sodium Chloride 500 ml @ 250 mls/hr 1X ONCE IV Last administered on 08/25/18at 23:10; Start 08/25/18 at 21:30; Stop 08/25/18 at 23:29; Status DC Sodium Chloride 1,000 ml @ 1,000 mls/hr 1X ONCE IV Last administered on 08/25/18at 23:51; Start 08/25/18 at 21:00; Stop 08/25/18 at 21:59; Status DC Piperacillin Sod/ Tazobactam Sod 4.5 gm/Sodium Chloride 100 ml @ 200 mls/hr 1X ONCE IV ; Start 08/25/18 at 21:15; Stop 08/25/18 at 21:44; Status DC Aztreonam (Azactam) 2 gm 1X ONCE IVP Last administered on 08/25/18at 21:15; Start 08/25/18 at 21:15; Stop 08/25/18 at 21:16; Status DC Magnesium Sulfate 50 ml @ 25 mls/hr 1X ONCE IV Last administered on 08/25/18at 23:51; Start 08/25/18 at 21:15; Stop 08/25/18 at 23:14; Status DC Ondansetron HCl (Zofran) 4 mg PRN Q8HRS PRN IV NAUSEA/VOMITING; Start 08/25/18 at 21:15; Stop 08/26/18 at 21:14; Status DC Acetaminophen (Tylenol) 650 mg PRN Q4HRS PRN PO FEVER; Start 08/25/18 at 21:15; Stop 08/26/18 at 21:14; Status DC Sodium Chloride 1,000 ml @ 125 mls/hr 1X ONCE IV Last administered on 08/25/18at 23:09; Start 08/25/18 at 21:15; Stop 08/26/18 at 05:14; Status DC Daptomycin 610 mg/ Sodium Chloride 50 ml @ 100 mls/hr QODAY IV Last administered on 08/27/18at 08:59; Start 08/27/18 at 09:00; Stop 08/28/18 at 15:40; Status DC Meropenem 500 mg/ Sodium Chloride 50 ml @ 100 mls/hr 1X ONCE IV Last administered on 08/25/18at 22:12; Start 08/25/18 at 22:00; Stop 08/25/18 at 22:29; Status DC Doxycycline Hyclate 100 mg/ Dextrose 100 ml @ 50 mls/hr Q12HR IV Last administered on 09/03/18at 22:11; Start 08/26/18 at 09:00; Stop 09/04/18 at 08:11; Status DC Meropenem 500 mg/ Sodium Chloride 50 ml @ 100 mls/hr DAILY IV Last administered on 08/29/18at 10:13; Start 08/26/18 at 09:00; Stop 08/30/18 at 08:17; Status DC Sodium Chloride (Normal Saline Flush) 10 ml QSHIFT PRN IV AFTER MEDS AND BLOOD DRAWS; Start 08/26/18 at 09:15 Norepinephrine Bitartrate 250 ml @ 0 mls/hr CONT PRN IV PER PROTOCOL Last administered on 08/27/18at 10:21; Start 08/26/18 at 09:15; Stop 08/30/18 at 17:20; Status DC Famotidine (Pepcid) 20 mg DAILY PO Last administered on 08/27/18at 08:14; Start 08/26/18 at 12:00; Stop 08/27/18 at 14:36; Status DC Sodium Chloride 1,000 ml @ 1,000 mls/hr Q1H PRN IV hypotension; Start 08/26/18 at 11:51; Stop 08/26/18 at 17:50; Status DC Sodium Chloride (Normal Saline Flush) 10 ml 1X PRN PRN IV AP catheter pack; Start 08/26/18 at 12:00; Stop 08/27/18 at 11:59; Status DC Sodium Chloride (Normal Saline Flush) 10 ml 1X PRN PRN IV CONTRACT PROJECT MANAGER catheter pack; Start 08/26/18 at 12:00; Stop 08/27/18 at 11:59; Status DC Sodium Chloride 1,000 ml @ 400 mls/hr Q2H30M PRN IV PATENCY; Start 08/26/18 at 11:51; Stop 08/26/18 at 23:50; Status DC Info (PHARMACY MONITORING -- do not chart) 1 each PRN DAILY PRN MC SEE COMMENTS; Start 08/26/18 at 12:00; Status UNV Info (PHARMACY MONITORING -- do not chart) 1 each PRN DAILY PRN MC SEE COMMENTS; Start 08/26/18 at 12:00; Stop 09/01/18 at 10:59; Status DC Lidocaine/Sodium Bicarbonate (Buffered Lidocaine 1%) 4 ml 1X ONCE INJ Last administered on 08/26/18at 12:45; Start 08/26/18 at 12:45; Stop 08/26/18 at 12:48; Status DC Heparin Sodium (Porcine) (Heparin Sodium) 2,500 unit 1X ONCE INT CAT Last administered on 08/26/18at 12:45; Start 08/26/18 at 12:45; Stop 08/26/18 at 12:48; Status DC Lidocaine/Sodium Bicarbonate (Buffered Lidocaine 1%) 3 ml STK-MED ONCE .ROUTE ; Start 08/26/18 at 12:49; Stop 08/26/18 at 12:50; Status DC Heparin Sodium (Porcine) (Heparin Sodium) 10,000 unit STK-MED ONCE .ROUTE ; Start 08/26/18 at 12:49; Stop 08/26/18 at 12:50; Status DC Lactobacillus Rhamnosus (Culturelle) 1 cap BID PO Last administered on 09/06/18at 22:46; Start 08/26/18 at 21:00 Acetaminophen (Tylenol) 325 mg STK-MED ONCE PO ; Start 08/27/18 at 00:43; Stop 08/27/18 at 00:44; Status DC Sodium Chloride 1,000 ml @ 1,000 mls/hr 1X ONCE IV Last administered on 08/27/18at 11:05; Start 08/27/18 at 10:30; Stop 08/27/18 at 11:29; Status DC Sodium Chloride 1,000 ml @ 1,000 mls/hr Q1H PRN IV hypotension; Start 08/27/18 at 11:28; Stop 08/27/18 at 17:27; Status DC Albumin Human 200 ml @ 200 mls/hr 1X PRN PRN IV Hypotension; Start 08/27/18 at 11:30; Stop 08/27/18 at 17:29; Status DC Sodium Chloride (Normal Saline Flush) 10 ml 1X PRN PRN IV AP catheter pack; Start 08/27/18 at 11:30; Stop 08/28/18 at 11:29; Status DC Sodium Chloride (Normal Saline Flush) 10 ml 1X PRN PRN IV CONTRACT PROJECT MANAGER catheter pack; Start 08/27/18 at 11:30; Stop 08/28/18 at 11:29; Status DC Sodium Chloride 1,000 ml @ 400 mls/hr Q2H30M PRN IV PATENCY; Start 08/27/18 at 11:28; Stop 08/27/18 at 23:27; Status DC Info (PHARMACY MONITORING -- do not chart) 1 each PRN DAILY PRN MC SEE COMMENTS; Start 08/27/18 at 11:30; Status UNV Info (PHARMACY MONITORING -- do not chart) 1 each PRN DAILY PRN MC SEE COMMENTS; Start 08/27/18 at 11:30; Status UNV Famotidine (Pepcid) 20 mg Q48H PO ; Start 08/29/18 at 09:00; Stop 08/29/18 at 11:29; Status DC Acetaminophen (Tylenol) 650 mg PRN Q6HRS PRN PO pain/fever; Start 08/27/18 at 21:15 Acetaminophen (Tylenol Supp) 650 mg PRN Q6HRS PRN MO MILD PAIN / TEMP Last administered on 09/02/18at 01:18; Start 08/27/18 at 21:15 Fentanyl Citrate (Fentanyl 2ml Vial) 25 mcg 1X ONCE IV Last administered on 08/28/18at 08:54; Start 08/28/18 at 08:45; Stop 08/28/18 at 08:47; Status DC Lidocaine/Sodium Bicarbonate (Buffered Lidocaine 1%) 3 ml STK-MED ONCE .ROUTE ; Start 08/28/18 at 09:55; Stop 08/28/18 at 09:56; Status DC Lidocaine HCl (Glydo (Lidocaine) Jelly) 1 meng 1X STAT MM Last administered on 08/28/18at 10:16; Start 08/28/18 at 10:16; Stop 08/28/18 at 10:19; Status DC Benzocaine (Hurricaine One) 1 spray 1X STAT MM Last administered on 08/28/18at 10:16; Start 08/28/18 at 10:16; Stop 08/28/18 at 10:19; Status DC Lidocaine/Sodium Bicarbonate (Buffered Lidocaine 1%) 3 ml 1X ONCE INJ ; Start 08/28/18 at 10:30; Stop 08/28/18 at 10:31; Status DC Haloperidol Lactate (Haldol Inj) 5 mg PRN Q6HRS PRN IVP AGITATION Last administered on 09/06/18at 05:53; Start 08/28/18 at 12:00 Fentanyl Citrate (Fentanyl 2ml Vial) 50 mcg PRN Q4HRS PRN IV PAIN Last administered on 08/28/18at 21:44; Start 08/28/18 at 15:30; Stop 09/05/18 at 02:11; Status DC Sodium Chloride 1,000 ml @ 1,000 mls/hr Q1H PRN IV hypotension; Start 08/28/18 at 14:00; Stop 08/28/18 at 19:59; Status DC Albumin Human 200 ml @ 200 mls/hr 1X PRN PRN IV Hypotension Last administered on 08/28/18at 14:50; Start 08/28/18 at 14:00; Stop 09/03/18 at 18:17; Status DC Sodium Chloride 1,000 ml @ 400 mls/hr Q2H30M PRN IV PATENCY; Start 08/28/18 at 14:00; Stop 08/29/18 at 01:59; Status DC Info (PHARMACY MONITORING -- do not chart) 1 each PRN DAILY PRN MC SEE C OMMENTS; Start 08/28/18 at 15:30; Status UNV Info (PHARMACY MONITORING -- do not chart) 1 each PRN DAILY PRN MC SEE COMMENTS; Start 08/28/18 at 15:30; Status UNV Daptomycin 610 mg/ Sodium Chloride 50 ml @ 100 mls/hr Q48H IV ; Start 08/30/18 at 16:00; Stop 08/30/18 at 16:00; Status DC Famotidine (Pepcid Vial) 20 mg QHS IVP Last administered on 08/31/18at 20:59; Start 08/29/18 at 21:00; Stop 09/01/18 at 11:00; Status DC Acyclovir Sodium 340 mg/Dextrose 106.8 ml @ 106.8 mls/ hr Q12HR IV Last administered on 09/01/18at 11:05; Start 08/30/18 at 09:00; Stop 09/01/18 at 13:37; Status DC Sodium Chloride 1,000 ml @ 1,000 mls/hr Q1H PRN IV hypotension; Start 08/30/18 at 11:02; Stop 08/30/18 at 17:01; Status DC Sodium Chloride 1,000 ml @ 400 mls/hr Q2H30M PRN IV PATENCY; Start 08/30/18 at 11:02; Stop 08/30/18 at 23:01; Status DC Info (PHARMACY MONITORING -- do not chart) 1 each PRN DAILY PRN MC SEE COMMENTS; Start 08/30/18 at 11:15; Status UNV Info (PHARMACY MONITORING -- do not chart) 1 each PRN DAILY PRN MC SEE COMMENTS; Start 08/30/18 at 11:15; Status UNV Info (Tpn Per Pharmacy) 1 each PRN DAILY PRN MC SEE COMMENTS Last administered on 09/03/18at 10:53; Start 08/30/18 at 12:45; Stop 09/04/18 at 12:50; Status DC Sodium Chloride 90 meq/Potassium Chloride 50 meq/ Potassium Phosphate 3 mmol/ Magnesium Sulfate 10 meq/Calcium Gluconate 10 meq/ Multivitamins 10 ml/Chromium/ Copper/Manganese/ Seleni/Zn 1 ml/ Total Parenteral Nutrition/Amino Acids/Dextrose/ Fat Emulsion Intravenous 1,512 ml @ 63 mls/hr TPN CONT IV Last administered on 08/30/18at 21:40; Start 08/30/18 at 22:00; Stop 08/31/18 at 21:59; Status DC Ondansetron HCl (Zofran) 4 mg PRN Q6HRS PRN IV NAUSEA/VOMITING; Start 08/31/18 at 08:00 Haloperidol (Haldol) 2 mg PRN QID PRN PO AGITATION; Start 08/31/18 at 08:00; Stop 08/31/18 at 12:43; Status DC Haloperidol Lactate (HALDOL 2mg ORAL CONC) 2 mg PRN QID PRN PO AGITATION; S tart 08/31/18 at 12:43 Sodium Chloride 90 meq/Potassium Chloride 50 meq/ Potassium Phosphate 5 mmol/ Magnesium Sulfate 3 meq/Calcium Gluconate 10 meq/ Multivitamins 10 ml/Chromium/ Copper/Manganese/ Seleni/Zn 1 ml/ Total Parenteral Nutrition/Amino Acids/Dex trose 1,512 ml @ 63 mls/hr TPN CONT IV Last administered on 08/31/18at 20:59; Start 08/31/18 at 22:00; Stop 09/01/18 at 21:59; Status DC Propofol 100 ml @ As Directed STK-MED ONCE IV ; Start 08/31/18 at 22:45; Stop 08/31/18 at 22:46; Status DC Succinylcholine Chloride (Anectine) 200 mg STK-MED ONCE .ROUTE ; Start 08/31/18 at 22:46; Stop 08/31/18 at 22:47; Status DC Atropine Sulfate (ATROPINE 1mg SYRINGE) 1 mg STK-MED ONCE .ROUTE ; Start 08/31/18 at 22:58; Stop 08/31/18 at 22:59; Status DC Fentanyl Citrate 30 ml @ 0 mls/hr CONT PRN IV SEE PROTOCOL Last administered on 09/06/18at 10:39; Start 09/01/18 at 00:00; Stop 09/06/18 at 10:59; Status DC Propofol 100 ml @ 0 mls/hr CONT PRN IV SEE PROTOCOL Last administered on 09/06/18at 08:14; Start 09/01/18 at 00:00; Stop 09/06/18 at 10:59; Status DC Chlorhexidine Gluconate (Peridex) 15 ml BID MM Last administered on 09/06/18at 22:46; Start 09/01/18 at 09:00 Midazolam HCl 100 ml @ 0 mls/hr CONT PRN IV SEE PROTOCOL; Start 09/01/18 at 00:00 Albuterol/ Ipratropium (Duoneb) 3 ml RTQID NEB Last administered on 09/07/18at 07:27; Start 09/01/18 at 08:00 Albuterol/ Ipratropium (Duoneb) 3 ml 1X ONCE NEB Last administered on 09/01/18at 01:10; Start 09/01/18 at 01:00; Stop 09/01/18 at 01:01; Status DC Succinylcholine Chloride (Anectine) 200 mg 1X ONCE IV Last administered on 08/31/18at 23:04; Start 09/01/18 at 01:15; Stop 09/01/18 at 01:16; Status DC Sodium Chloride 1,000 ml @ 1,000 mls/hr Q1H PRN IV hypotension; Start 09/01/18 at 07:00; Stop 09/01/18 at 12:59; Status DC Sodium Chloride (Normal Saline Flush) 10 ml 1X PRN PRN IV AP catheter pack; Start 09/01/18 at 07:00; Stop 09/02/18 at 06:59; Status DC Sodium Chloride (Normal Saline Flush) 10 ml 1X PRN PRN IV CONTRACT PROJECT MANAGER catheter pack; Start 09/01/18 at 07:00; Stop 09/02/18 at 06:59; Status DC Sodium Chloride 1,000 ml @ 400 mls/hr Q2H30M PRN IV PATENCY; Start 09/01/18 at 07:00; Stop 09/01/18 at 18:59; Status DC Info (PHARMACY MONITORING -- do not chart) 1 each PRN DAILY PRN MC SEE COMMENTS; Start 09/01/18 at 11:00; Status Cancel Info (PHARMACY MONITORING -- do not chart) 1 each PRN DAILY PRN MC SEE COMMENTS; Start 09/01/18 at 11:00; Status Cancel Famotidine (Pepcid Vial) 20 mg Q48H IVP Last administered on 09/05/18at 22:28; Start 09/03/18 at 21:00 Sodium Chloride 90 meq/Potassium Chloride 50 meq/ Potassium Phosphate 10 mmol/ Calcium Gluconate 10 meq/ Multivitamins 10 ml/Chromium/ Copper/Manganese/ Seleni/Zn 1 ml/ Total Parenteral Nutrition/Amino Acids/Dextrose 1,512 ml @ 63 mls/hr TPN CONT IV Last administered on 09/01/18at 22:11; Start 09/01/18 at 22:00; Stop 09/02/18 at 21:59; Status DC Piperacillin Sod/ Tazobactam Sod 2.25 gm/Sodium Chloride 50 ml @ 100 mls/hr Q6HRS IV Last administered on 09/07/18at 05:53; Start 09/01/18 at 14:00 Sodium Chloride 110 meq/Potassium Chloride 50 meq/ Potassium Phosphate 10 mmol/ Calcium Gluconate 10 meq/ Multivitamins 10 ml/Chromium/ Copper/Manganese/ Seleni /Zn 1 ml/ Magnesium Sulfate 3 meq/Total Parenteral Nutrition/Amino Acids/Dextrose 1,512 ml @ 63 mls/hr TPN CONT IV Last administered on 09/02/18at 22:13; Start 09/02/18 at 22:00; Stop 09/03/18 at 21:59; Status DC Darbepoetin Phil (Aranesp) 100 mcg [id number] SQ Last administered on 09/03/18at 22:11; Start 09/03/18 at 21:00 Sodium Chloride 130 meq/Potassium Acetate 20 meq/ Calcium Gluconate 10 meq/ Multivitamins 10 ml/Chromium/ Copper/Manganese/ Seleni/Zn 1 ml/ Magnesium Sulfate 3 meq/Total Parenteral Nutrition/Amino Acids/Dextrose 1,512 ml @ 63 mls/hr TPN CONT IV Last administered on 09/03/18at 22:12; Start 09/03/18 at 22:00; Stop 09/04/18 at 21:59; Status DC Albumin Human 200 ml @ 200 mls/hr 1X PRN PRN IV Hypotension; Start 09/03/18 at 10:00; Stop 09/03/18 at 21:00; Status DC Sodium Chloride (Normal Saline Flush) 10 ml 1X PRN PRN IV AP catheter pack; Start 09/03/18 at 10:00; Stop 09/03/18 at 21:00; Status DC Sodium Chloride (Normal Saline Flush) 10 ml 1X PRN PRN IV CONTRACT PROJECT MANAGER catheter pack; Start 09/03/18 at 10:00; Stop 09/03/18 at 21:00; Status DC Sodium Chloride 1,000 ml @ 400 mls/hr Q2H30M PRN IV PATENCY; Start 09/03/18 at 10:00; Stop 09/03/18 at 21:59; Status DC Info (PHARMACY MONITORING -- do not chart) 1 each PRN DAILY PRN MC SEE COMMENTS; Start 09/03/18 at 18:15; Status UNV Atropine Sulfate (ATROPINE 0.5mg SYRINGE) 0.5 mg STK-MED ONCE .ROUTE ; Start 08/31/18 at 08:06; Stop 09/04/18 at 08:07; Status DC Epinephrine HCl (EPINEPHrine SYRINGE) 3 mg STK-MED ONCE .ROUTE ; Start 08/31/18 at 08:06; Stop 09/04/18 at 08:07; Status DC Sodium Bicarbonate (Sodium Bicarb Adult 8.4% Syr) 100 meq STK-MED ONCE .ROUTE ; Start 08/31/18 at 08:06; Stop 09/04/18 at 08:07; Status DC Levofloxacin/ Dextrose 150 ml @ 100 mls/hr QODAY IV Last administered on 09/06/18at 10:28; Start 09/04/18 at 09:00; Stop 09/07/18 at 07:52; Status DC Sodium Chloride 1,000 ml @ 1,000 mls/hr Q1H PRN IV hypotension; Start 09/04/18 at 08:23; Stop 09/04/18 at 14:24; Status DC Albumin Human 200 ml @ 200 mls/hr 1X PRN PRN IV Hypotension; Start 09/04/18 at 08:30; Stop 09/04/18 at 14:29; Status DC Sodium Chloride 1,000 ml @ 400 mls/hr Q2H30M PRN IV PATENCY; Start 09/04/18 at 08:23; Stop 09/04/18 at 20:22; Status DC Info (PHARMACY MONITORING -- do not chart) 1 each PRN DAILY PRN MC SEE COMM ENTS; Start 09/04/18 at 08:30; Stop 09/05/18 at 08:55; Status DC Info (PHARMACY MONITORING -- do not chart) 1 each PRN DAILY PRN MC SEE COMMENTS; Start 09/04/18 at 08:30; Status UNV Linezolid/Dextrose 300 ml @ 300 mls/hr Q12HR IV Last administered on 09/06/18at 22:46; Start 09/05/18 at 09:30 Sodium Chloride 1,000 ml @ 1,000 mls/hr Q1H PRN IV hypotension; Start 09/05/18 at 08:51; Stop 09/05/18 at 14:50; Status DC Sodium Chloride (Normal Saline Flush) 10 ml 1X PRN PRN IV AP catheter pack; Start 09/05/18 at 09:00; Stop 09/06/18 at 08:59; Status DC Sodium Chloride (Normal Saline Flush) 10 ml 1X PRN PRN IV CONTRACT PROJECT MANAGER catheter pack; Start 09/05/18 at 09:00; Stop 09/06/18 at 08:59; Status DC Sodium Chloride 1,000 ml @ 400 mls/hr Q2H30M PRN IV PATENCY; Start 09/05/18 at 08:51; Stop 09/05/18 at 20:50; Status DC Info (PHARMACY MONITORING -- do not chart) 1 each PRN DAILY PRN MC SEE JANIYA TS; Start 09/05/18 at 09:00; Stop 09/05/18 at 09:00; Status DC Info (PHARMACY MONITORING -- do not chart) 1 each PRN DAILY PRN MC SEE COMMENTS; Start 09/05/18 at 09:00 Fentanyl Citrate (Fentanyl 2ml Vial) 25 mcg PRN Q2HR PRN IV MODERATE PAIN; Start 09/06/18 at 11:00 Dexmedetomidine HCl 200 mcg/ Sodium Chloride 50 ml @ 0 mls/hr CONT PRN IV PER PROTOCOL; Start 09/06/18 at 11:00 Sodium Chloride 500 ml @ 500 mls/hr 1X PRN PRN IV SEE COMMENTS; Start 09/06/18 at 11:00 Atropine Sulfate (ATROPINE 0.5mg SYRINGE) 0.5 mg PRN Q5MIN PRN IV SEE COMMENTS; Start 09/06/18 at 11:00 Sodium Chloride 1,000 ml @ 1,000 mls/hr Q1H PRN IV hypotension; Start 09/06/18 at 11:52; Stop 09/06/18 at 17:51; Status DC Diphenhydramine HCl (Benadryl) 25 mg 1X PRN PRN IV ITCHING; Start 09/06/18 at 12:00; Stop 09/07/18 at 11:59 Diphenhydramine HCl (Benadryl) 25 mg 1X PRN PRN IV ITCHING; Start 09/06/18 at 12:00; Stop 09/07/18 at 11:59 Sodium Chloride 1,000 ml @ 400 mls/hr Q2H30M PRN IV PATENCY; Start 09/06/18 at 11:52; Stop 09/06/18 at 23:51; Status DC Info (PHARMACY MONITORING -- do not chart) 1 each PRN DAILY PRN MC SEE COMMENTS; Start 09/06/18 at 12:00; Stop 09/06/18 at 12:00; Status DC Micafungin Sodium 100 mg/Dextrose 100 ml @ 100 mls/hr Q24H IV ; Start 09/07/18 at 08:30 Active Scripts Active Potassium Chloride 20 Meq Tablet.er 20 Meq PO DAILY Orphenadrine Citrate 100 Mg Tablet.er 100 Mg PO Q12HR Anaprox Ds (Naproxen Sodium) 550 Mg Tablet 550 Mg PO Q12HR Reported Prednisone 20 Mg Tablet 1 Tab PO DAILY Hydrochlorothiazide Tablet (Hydrochlorothiazide) 12.5 Mg Tablet 12.5 Mg PO DAILY Shilpi Allergy (Fexofenadine Hcl) 180 Mg Tablet 1 Tab PO DAILY Vitals/I & O Vital Sign - Last 24 Hours 09/06/18 09/06/18 09/06/18 09/06/18 10:00 10:05 10:39 11:00 Pulse 86 92 Resp 20 18 20 B/P (MAP) 167/82 (110) 170/91 (117) Pulse Ox 99 98 99 O2 Delivery Ventilator Ventilator Ventilator 09/06/18 09/06/18 09/06/18 09/06/18 11:19 12:00 12:00 13:00 Temp 98.5 98.5 Pulse 91 95 Resp 20 20 B/P (MAP) 167/98 (121) 162/90 (114) Pulse Ox 99 100 100 O2 Delivery Ventilator Mechanical Ventilator Ventilator Ventilator 09/06/18 09/06/18 09/06/18 09/06/18 14:00 14:21 15:00 16:00 Pulse 93 96 Resp 20 20 B/P (MAP) 147/86 (106) 158/96 (116) Pulse Ox 99 98 97 O2 Delivery Ventilator Ventilator Ventilator Mechanical Ventilator 09/06/18 09/06/18 09/06/18 09/06/18 16:00 16:28 17:00 17:45 Temp 98.6 98.6 Pulse 102 96 Resp 18 24 B/P (MAP) 173/81 (111) 152/70 (97) Pulse Ox 99 99 99 98 O2 Delivery Ventilator Ventilator Ventilator Ventilator 09/06/18 09/06/18 09/06/18 09/06/18 18:00 19:00 20:00 20:00 Temp 99.9 99.9 Pulse 98 96 99 Resp 24 24 25 B/P (MAP) 148/74 (98) 159/79 (105) 159/81 (107) Pulse Ox 98 99 99 O2 Delivery Ventilator Ventilator Ventilator Mechanical Ventilator 09/06/18 09/06/18 09/06/18 09/06/18 20:15 21:00 22:00 23:00 Pulse 95 87 86 Resp 24 21 21 B/P (MAP) 160/71 (100) 148/68 (94) 155/87 (109) Pulse Ox 99 100 100 100 O2 Delivery Ventilator Ventilator Ventilator Ventilator 09/07/18 09/07/18 09/07/18 09/07/18 00:00 00:01 00:17 01:00 Temp 100.1 100.1 Pulse 90 93 Resp 23 23 B/P (MAP) 148/84 (105) 149/84 (105) Pulse Ox 99 99 99 O2 Delivery Mechanical Ventilator Ventilator Ventilator Ventilator 09/07/18 09/07/18 09/07/18 09/07/18 02:00 03:00 03:23 04:00 Temp 98.9 98.9 Pulse 99 85 88 Resp 19 B/P (MAP) 155/80 (105) 153/76 (101) 140/70 (93) Pulse Ox 99 99 98 99 O2 Delivery Ventilator Ventilator Ventilator Ventilator 09/07/18 09/07/18 09/07/18 09/07/18 04:00 05:00 05:39 06:00 Pulse 82 69 Resp 30 25 B/P (MAP) 141/77 (98) 102/48 (66) Pulse Ox 99 98 99 O2 Delivery Mechanical Ventilator Ventilator Ventilator Ventilator 09/07/18 09/07/18 09/07/18 09/07/18 07:27 08:00 08:00 09:04 Temp 98.8 98.8 Pulse 79 Resp 16 B/P (MAP) 147/75 (99) Pulse Ox 99 97 98 O2 Delivery Ventilator Mechanical Ventilator Ventilator Ventilator Intake and Output 09/06/18 09/06/18 09/07/18 14:59 22:59 06:59 Intake Total 300 ml 974 ml 300 ml Output Total 5 ml 3000 ml 15 ml Balance 295 ml -2026 ml 285 ml JAVON COSME MD September 07, 2018 09:12
--- NOTE | 2018-09-07 09:51 | PDOC ---
PROGRESS NOTES Chief Complaint Chief Complaint Sepsis Encephalopathy Encephalitis of undetermined etiology Respiratory failure Probable tick-borne illness, suspected. with h/o tick bite 3 weeks ago at [place] Lactic acidosis. Fever. Bandemia. Acute hepatic injury Acute kidney injury. Thrombocytopenia. Hemochromatosis. LLE dermatitis improving, ? poison [place],resolving with local treatment History of Present Illness History of Present Illness Mr Kirk is a 52-year-old male with a past medical history of hemochromatosis who is pretty healthy otherwise and very active. About 3 weeks ago, he was at [facility] [employer] and found a tick embedded on the back of his right thigh. He pulled it out and thought nothing of it. The next day, he was cleaning up a yard with a few other persons from [employer]. He recalls kneeling down on his left knee pulling wheat. A few days later, he developed an itchy red blistering rash on his left knee that improved with [id number] ivory rest. He then developed a different type of rash that was itchy, splotchy and red on the inner aspect of both arms. He was seen by his doctor and prescribed Bactrim for infection. 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 About a week later, on Friday 08/18, he went to a men's breakfast and a Hired meeting. Afterwards, he felt unusually tired. Over the following 24 hours, he did not feel well. He developed fever, chills, joint pains and muscle aches. He alternated taking ibuprofen and Tylenol without relief. He was seen at urgent care center and prescribed prednisone for upper respiratory infection. Unfortunately, he felt worse. He lost his appetite and was not drinking much and was urinating less. His said he was sleeping more, moaned, seemed lethargic and confused, prompting the ER visit. On arrival to the ER, he had a temperature of 100.3, respiratory rate 28. Laboratory values returned abnormal with a WBC count 6.2, segs 68%, bands 24%, platelets 17,000. Lactic acid was 5.1. Sed rate 11. He had elevated LFTs and acute kidney injury. Cultures were ordered. He was dosed with vancomycin, ceftriaxone and aztreonam in the ER. ID adjusted his antibiotics to daptomycin, meropenem and doxycycline. He was feeling improved, then on 08/28/2018 continued to worsen, was started on dialysis, required increasing O2 and was placed on BIPAP and ultimately intubated on 08/31/2018. Serology for HIV, HSV, [place] spotted fever and Ehrlichia all thus negative. Had LP on 08/29/18 with increased protein. His spouse notes no recent travel, last time he was out of the country was [facility] in 2003. 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 He struggled with infidelity over the last year and over the weekend had HIV testing consent per , this was negative as well as syphilis testing. Patient seen and examined in the ICU. is bedside today. Patient is on the v ent assist / with 40% and 5 of PEEP, on sedation wean right now. He is extremely ill. Will possibly need dialysis again today BUN still elevated. Fungal cultures positive in blood Type and screen, will only transfuse per hematology and nephrology. Still with fevers despite broadened coverage with ID yesterday. Have d/w ID to broaden coverage further. He remains guardedly critically ill. Needs lines exchanged CC 38 minutes today Vitals Vitals Vital Signs Date Time Temp Pulse Resp B/P (MAP) Pulse Ox O2 Delivery O2 Flow Rate FiO2 09/07/18 09:04 98 Ventilator 09/07/18 08:00 98.8 79 16 147/75 (99) 98.8 Physical Exam Physical Exam GENERAL:intubated, opens eyes HEENT: Pupils equally round, reactive. No conjunctivae petechia. ETT + NECK: Supple.HDC ,looks ok LUNGS: dec bs at bases HEART: S1 and S2. ABDOMEN: Obese, soft, nontender with bowel sounds present. rose in place ,minimal urine output EXTREMITIES:no edema,no cyanosis. SKIN: Warm , rash over both posterior aspect of bue NEUROLOGIC: sedated on vent,responds to tactile stimuli LUE midline looks ok General: No acute distress Heart: Normal S1, Normal S2 Lungs: Clear Abdomen: Soft, Other (TF infusing) Extremities: No clubbing, No cyanosis, No edema Skin: No significant lesion, Other (healing rash and excoriations on Left lower extremity. No obvious petechiae) Labs LABS Laboratory Tests Test 09/07/18 06:05 09/07/18 07:35 Sodium Level 138 mmol/L (136-145) Potassium Level 4.3 mmol/L (3.5-5.1) Chloride Level 97 mmol/L (98-107) Carbon Dioxide Level 22 mmol/L (21-32) Anion Gap 19 (6-14) Blood Urea Nitrogen 79 mg/dL (8-26) Creatinine 7.1 mg/dL (0.7-1.3) Estimated GFR (Cockcroft-Gault) 8.1 Glucose Level 128 mg/dL (70-99) Calcium Level 7.0 mg/dL (8.5-10.1) Phosphorus Level 8.7 mg/dL (2.6-4.7) Magnesium Level 2.3 mg/dL (1.8-2.4) O2 Saturation 98 % (92-99) Arterial Blood pH 7.43 (7.35-7.45) Arterial Blood pCO2 at Patient Temp 33 mmHg (35-46) Arterial Blood pO2 at Patient Temp 124 mmHg (75-108) Arterial Blood HCO3 22 mmol/L (21-28) Arterial Blood Base Excess -2 mmol/L (-3-3) FiO2 35% Assessment and Plan Assessmemt and Plan Problems Medical Problems: (1) Acute renal failure Status: Acute Comment Review of Relevant I have reviewed the following items gera (where applicable) has been applied. Labs Laboratory Tests Test 09/06/18 05:40 09/06/18 08:00 09/07/18 06:05 09/07/18 07:35 Sodium Level 135 mmol/L (136-145) 138 mmol/L (136-145) Potassium Level 5.7 mmol/L (3.5-5.1) 4.3 mmol/L (3.5-5.1) Chloride Level 96 mmol/L (98-107) 97 mmol/L (98-107) Carbon Dioxide Level 21 mmol/L (21-32) 22 mmol/L (21-32) Anion Gap 18 (6-14) 19 (6-14) Blood Urea Nitrogen 90 mg/dL (8-26) 79 mg/dL (8-26) Creatinine 8.9 mg/dL (0.7-1.3) 7.1 mg/dL (0.7-1.3) Estimated GFR (Cockcroft-Gault) 6.3 8.1 Glucose Level 115 mg/dL (70-99) 128 mg/dL (70-99) Calcium Level 7.3 mg/dL (8.5-10.1) 7.0 mg/dL (8.5-10.1) Phosphorus Level 9.1 mg/dL (2.6-4.7) 8.7 mg/dL (2.6-4.7) Magnesium Level 2.3 mg/dL (1.8-2.4) 2.3 mg/dL (1.8-2.4) Albumin 2.1 g/dL (3.4-5.0) O2 Saturation 97 % (92-99) 98 % (92-99) Arterial Blood pH 7.39 (7.35-7.45) 7.43 (7.35-7.45) Arterial Blood pCO2 at Patient Temp 30 mmHg (35-46) 33 mmHg (35-46) Arterial Blood pO2 at Patient Temp 110 mmHg (75-108) 124 mmHg (75-108) Arterial Blood HCO3 18 mmol/L (21-28) 22 mmol/L (21-28) Arterial Blood Base Excess -6 mmol/L (-3-3) -2 mmol/L (-3-3) FiO2 40 35% Laboratory Tests Test 09/07/18 06:05 09/07/18 07:35 Sodium Level 138 mmol/L (136-145) Potassium Level 4.3 mmol/L (3.5-5.1) Chloride Level 97 mmol/L (98-107) Carbon Dioxide Level 22 mmol/L (21-32) Anion Gap 19 (6-14) Blood Urea Nitrogen 79 mg/dL (8-26) Creatinine 7.1 mg/dL (0.7-1.3) Estimated GFR (Cockcroft-Gault) 8.1 Glucose Level 128 mg/dL (70-99) Calcium Level 7.0 mg/dL (8.5-10.1) Phosphorus Level 8.7 mg/dL (2.6-4.7) Magnesium Level 2.3 mg/dL (1.8-2.4) O2 Saturation 98 % (92-99) Arterial Blood pH 7.43 (7.35-7.45) Arterial Blood pCO2 at Patient Temp 33 mmHg (35-46) Arterial Blood pO2 at Patient Temp 124 mmHg (75-108) Arterial Blood HCO3 22 mmol/L (21-28) Arterial Blood Base Excess -2 mmol/L (-3-3) FiO2 35% Microbiology 09/04/18 Blood Culture - Final, Complete 08/29/18 CSF Gram Stain - Final, Complete 08/27/18 Stool Culture - Final, Complete 08/27/18 Stool Culture Result 1 (LOTUS) - Final, Complete 08/27/18 Campylobacter Antigen Assay - Final, Complete 08/27/18 Campylobactor Result 1 - Final, Complete 08/27/18 Shiga Toxin Test - Final, Complete 09/05/18 - Final, Resulted 09/05/18 - Final, Resulted 09/05/18 - Final, Resulted 09/05/18 Gram Stain Evaluation - Final, Resulted 09/05/18 Sputum Culture, Resulted Pending 09/04/18 Urine Culture - Final, Complete 09/04/18 Urine Culture Result 1 (LOTUS) - Final, Complete Medications Current Medications Sodium Chloride 1,000 ml @ 1,000 mls/hr 1X ONCE IV Last administered on 08/25/18at 20:38; Start 08/25/18 at 19:15; Stop 08/25/18 at 20:14; Status DC Ibuprofen (Motrin) 600 mg 1X ONCE PO Last administered on 08/25/18 20:38; Start 08/25/18 at 19:45; Stop 08/25/18 at 19:49; Status DC Sodium Chloride 1,000 ml @ 1,000 mls/hr 1X ONCE IV Last administered on 08/25/18at 20:30; Start 08/25/18 at 20:30; Stop 08/25/18 at 21:29; Status DC Ceftriaxone Sodium (Rocephin) 1 gm 1X ONCE IVP Last administered on 08/25/18at 20:36; Start 08/25/18 at 20:30; Stop 08/25/18 at 20:31; Status DC Vancomycin HCl 2 gm/Sodium Chloride 500 ml @ 250 mls/hr 1X ONCE IV Last administered on 08/25/18at 23:10; Start 08/25/18 at 21:30; Stop 08/25/18 at 23:29; Status DC Sodium Chloride 1,000 ml @ 1,000 mls/hr 1X ONCE IV Last administered on 08/25/18at 23:51; Start 08/25/18 at 21:00; Stop 08/25/18 at 21:59; Status DC Piperacillin Sod/ Tazobactam Sod 4.5 gm/Sodium Chloride 100 ml @ 200 mls/hr 1X ONCE IV ; Start 08/25/18 at 21:15; Stop 08/25/18 at 21:44; Status DC Aztreonam (Azactam) 2 gm 1X ONCE IVP Last administered on 08/25/18at 21:15; Start 08/25/18 at 21:15; Stop 08/25/18 at 21:16; Status DC Magnesium Sulfate 50 ml @ 25 mls/hr 1X ONCE IV Last administered on 08/25/18at 23:51; Start 08/25/18 at 21:15; Stop 08/25/18 at 23:14; Status DC Ondansetron HCl (Zofran) 4 mg PRN Q8HRS PRN IV NAUSEA/VOMITING; Start 08/25/18 at 21:15; Stop 08/26/18 at 21:14; Status DC Acetaminophen (Tylenol) 650 mg PRN Q4HRS PRN PO FEVER; Start 08/25/18 at 21:15; Stop 08/26/18 at 21:14; Status DC Sodium Chloride 1,000 ml @ 125 mls/hr 1X ONCE IV Last administered on 08/25/18at 23:09; Start 08/25/18 at 21:15; Stop 08/26/18 at 05:14; Status DC Daptomycin 610 mg/ Sodium Chloride 50 ml @ 100 mls/hr QODAY IV Last administered on 08/27/18at 08:59; Start 08/27/18 at 09:00; Stop 08/28/18 at 15:40; Status DC Meropenem 500 mg/ Sodium Chloride 50 ml @ 100 mls/hr 1X ONCE IV Last administered on 08/25/18at 22:12; Start 08/25/18 at 22:00; Stop 08/25/18 at 22:29; Status DC Doxycycline Hyclate 100 mg/ Dextrose 100 ml @ 50 mls/hr Q12HR IV Last administered on 09/03/18at 22:11; Start 08/26/18 at 09:00; Stop 09/04/18 at 08:11; Status DC Meropenem 500 mg/ Sodium Chloride 50 ml @ 100 mls/hr DAILY IV Last administered on 08/29/18at 10:13; Start 08/26/18 at 09:00; Stop 08/30/18 at 08:17; Status DC Sodium Chloride (Normal Saline Flush) 10 ml QSHIFT PRN IV AFTER MEDS AND BLOOD DRAWS; Start 08/26/18 at 09:15 Norepinephrine Bitartrate 250 ml @ 0 mls/hr CONT PRN IV PER PROTOCOL Last administered on 08/27/18at 10:21; Start 08/26/18 at 09:15; Stop 08/30/18 at 17:20; Status DC Famotidine (Pepcid) 20 mg DAILY PO Last administered on 08/27/18at 08:14; Start 08/26/18 at 12:00; Stop 08/27/18 at 14:36; Status DC Sodium Chloride 1,000 ml @ 1,000 mls/hr Q1H PRN IV hypotension; Start 08/26/18 at 11:51; Stop 08/26/18 at 17:50; Status DC Sodium Chloride (Normal Saline Flush) 10 ml 1X PRN PRN IV AP catheter pack; Start 08/26/18 at 12:00; Stop 08/27/18 at 11:59; Status DC Sodium Chloride (Normal Saline Flush) 10 ml 1X PRN PRN IV KNITTED [employer] EX[employer] catheter pack; Start 08/26/18 at 12:00; Stop 08/27/18 at 11:59; Status DC Sodium Chloride 1,000 ml @ 400 mls/hr Q2H30M PRN IV PATENCY; Start 08/26/18 at 11:51; Stop 08/26/18 at 23:50; Status DC Info (PHARMACY MONITORING -- do not chart) 1 each PRN DAILY PRN MC SEE COMMENTS; Start 08/26/18 at 12:00; Status UNV Info (PHARMACY MONITORING -- do not chart) 1 each PRN DAILY PRN MC SEE COMMENTS; Start 08/26/18 at 12:00; Stop 09/01/18 at 10:59; Status DC Lidocaine/Sodium Bicarbonate (Buffered Lidocaine 1%) 4 ml 1X ONCE INJ Last administered on 08/26/18at 12:45; Start 08/26/18 at 12:45; Stop 08/26/18 at 12:48; Status DC Heparin Sodium (Porcine) (Heparin Sodium) 2,500 unit 1X ONCE INT CAT Last administered on 08/26/18at 12:45; Start 08/26/18 at 12:45; Stop 08/26/18 at 12:48; Status DC Lidocaine/Sodium Bicarbonate (Buffered Lidocaine 1%) 3 ml STK-MED ONCE .ROUTE ; Start 08/26/18 at 12:49; Stop 08/26/18 at 12:50; Status DC Heparin Sodium (Porcine) (Heparin Sodium) 10,000 unit STK-MED ONCE .ROUTE ; Start 08/26/18 at 12:49; Stop 08/26/18 at 12:50; Status DC Lactobacillus Rhamnosus (Culturelle) 1 cap BID PO Last administered on 09/07/18at 09:12; Start 08/26/18 at 21:00 Acetaminophen (Tylenol) 325 mg STK-MED ONCE PO ; Start 08/27/18 at 00:43; Stop 08/27/18 at 00:44; Status DC Sodium Chloride 1,000 ml @ 1,000 mls/hr 1X ONCE IV Last administered on 08/27/18at 11:05; Start 08/27/18 at 10:30; Stop 08/27/18 at 11:29; Status DC Sodium Chloride 1,000 ml @ 1,000 mls/hr Q1H PRN IV hypotension; Start 08/27/18 at 11:28; Stop 08/27/18 at 17:27; Status DC Albumin Human 200 ml @ 200 mls/hr 1X PRN PRN IV Hypotension; Start 08/27/18 at 11:30; Stop 08/27/18 at 17:29; Status DC Sodium Chloride (Normal Saline Flush) 10 ml 1X PRN PRN IV AP catheter pack; Start 08/27/18 at 11:30; Stop 08/28/18 at 11:29; Status DC Sodium Chloride (Normal Saline Flush) 10 ml 1X PRN PRN IV K[employer]ITTED [employer] catheter pack; Start 08/27/18 at 11:30; Stop 08/28/18 at 11:29; Status DC Sodium Chloride 1,000 ml @ 400 mls/hr Q2H30M PRN IV PATENCY; Start 08/27/18 at 11:28; Stop 08/27/18 at 23:27; Status DC Info (PHARMACY MONITORING -- do not chart) 1 each PRN DAILY PRN MC SEE COMMENTS; Start 08/27/18 at 11:30; Status UNV Info (PHARMACY MONITORING -- do not chart) 1 each PRN DAILY PRN MC SEE COMMENTS; Start 08/27/18 at 11:30; Status UNV Famotidine (Pepcid) 20 mg Q48H PO ; Start 08/29/18 at 09:00; Stop 08/29/18 at 11:29; Status DC Acetaminophen (Tylenol) 650 mg PRN Q6HRS PRN PO pain/fever; Start 08/27/18 at 21:15 Acetaminophen (Tylenol Supp) 650 mg PRN Q6HRS PRN RI MILD PAIN / TEMP Last administered on 09/02/18at 01:18; Start 08/27/18 at 21:15 Fentanyl Citrate (Fentanyl 2ml Vial) 25 mcg 1X ONCE IV Last administered on 08/28/18at 08:54; Start 08/28/18 at 08:45; Stop 08/28/18 at 08:47; Status DC Lidocaine/Sodium Bicarbonate (Buffered Lidocaine 1%) 3 ml STK-MED ONCE .ROUTE ; Start 08/28/18 at 09:55; Stop 08/28/18 at 09:56; Status DC Lidocaine HCl (Glydo (Lidocaine) Jelly) 1 meng 1X STAT MM Last administered on 08/28/18at 10:16; Start 08/28/18 at 10:16; Stop 08/28/18 at 10:19; Status DC Benzocaine (Hurricaine One) 1 spray 1X STAT MM Last administered on 08/28/18at 10:16; Start 08/28/18 at 10:16; Stop 08/28/18 at 10:19; Status DC Lidocaine/Sodium Bicarbonate (Buffered Lidocaine 1%) 3 ml 1X ONCE INJ ; Start 08/28/18 at 10:30; Stop 08/28/18 at 10:31; Status DC Haloperidol Lactate (Haldol Inj) 5 mg PRN Q6HRS PRN IVP AGITATION Last administered on 09/06/18at 05:53; Start 08/28/18 at 12:00 Fentanyl Citrate (Fentanyl 2ml Vial) 50 mcg PRN Q4HRS PRN IV PAIN Last administered on 08/28/18at 21:44; Start 08/28/18 at 15:30; Stop 09/05/18 at 02:11; Status DC Sodium Chloride 1,000 ml @ 1,000 mls/hr Q1H PRN IV hypotension; Start 08/28/18 at 14:00; Stop 08/28/18 at 19:59; Status DC Albumin Human 200 ml @ 200 mls/hr 1X PRN PRN IV Hypotension Last administered on 08/28/18at 14:50; Start 08/28/18 at 14:00; Stop 09/03/18 at 18:17; Status DC Sodium Chloride 1,000 ml @ 400 mls/hr Q2H30M PRN IV PATENCY; Start 08/28/18 at 14:00; Stop 08/29/18 at 01:59; Status DC Info (PHARMACY MONITORING -- do not chart) 1 each PRN DAILY PRN MC SEE COMMENTS; Start 08/28/18 at 15:30; Status UNV Info (PHARMACY MONITORING -- do not chart) 1 each PRN DAILY PRN MC SEE COMMENTS; Start 08/28/18 at 15:30; Status UNV Daptomycin 610 mg/ Sodium Chloride 50 ml @ 100 mls/hr Q48H IV ; Start 08/30/18 at 16:00; Stop 08/30/18 at 16:00; Status DC Famotidine (Pepcid Vial) 20 mg QHS IVP Last administered on 08/31/18at 20:59; Start 08/29/18 at 21:00; Stop 09/01/18 at 11:00; Status DC Acyclovir Sodium 340 mg/Dextrose 106.8 ml @ 106.8 mls/ hr Q12HR IV Last administered on 09/01/18at 11:05; Start 08/30/18 at 09:00; Stop 09/01/18 at 13:37; Status DC Sodium Chloride 1,000 ml @ 1,000 mls/hr Q1H PRN IV hypotension; Start 08/30/18 at 11:02; Stop 08/30/18 at 17:01; Status DC Sodium Chloride 1,000 ml @ 400 mls/hr Q2H30M PRN IV PATENCY; Start 08/30/18 at 11:02; Stop 08/30/18 at 23:01; Status DC Info (PHARMACY MONITORING -- do not chart) 1 each PRN DAILY PRN MC SEE COMMENTS; Start 08/30/18 at 11:15; Status UNV Info (PHARMACY MONITORING -- do not chart) 1 each PRN DAILY PRN MC SEE COMMENTS; Start 08/30/18 at 11:15; Status UNV Info (Tpn Per Pharmacy) 1 each PRN DAILY PRN MC SEE COMMENTS Last administered on 09/03/18at 10:53; Start 08/30/18 at 12:45; Stop 09/04/18 at 12:50; Status DC Sodium Chloride 90 meq/Potassium Chloride 50 meq/ Potassium Phosphate 3 mmol/ Magnesium Sulfate 10 meq/Calcium Gluconate 10 meq/ Multivitamins 10 ml/Chromium/ Copper/Manganese/ Seleni/Zn 1 ml/ Total Parenteral Nutrition/Amino Acids/Dextrose/ Fat Emulsion Intravenous 1,512 ml @ 63 mls/hr TPN CONT IV Last administered on 08/30/18at 21:40; Start 08/30/18 at 22:00; Stop 08/31/18 at 21:59; Status DC Ondansetron HCl (Zofran) 4 mg PRN Q6HRS PRN IV NAUSEA/VOMITING; Start 08/31/18 at 08:00 Haloperidol (Haldol) 2 mg PRN QID PRN PO AGITATION; Start 08/31/18 at 08:00; Stop 08/31/18 at 12:43; Status DC Haloperidol Lactate (HALDOL 2mg ORAL CONC) 2 mg PRN QID PRN PO AGITATION; Start 08/31/18 at 12:43 Sodium Chloride 90 meq/Potassium Chloride 50 meq/ Potassium Phosphate 5 mmol/ Magnesium Sulfate 3 meq/Calcium Gluconate 10 meq/ Multivitamins 10 ml/Chromium/ Copper/Manganese/ Seleni/Zn 1 ml/ Total Parenteral Nutrition/Amino Acids/Dextrose 1,512 ml @ 63 mls/hr TPN CONT IV Last administered on 08/31/18at 20:59; Start 08/31/18 at 22:00; Stop 09/01/18 at 21:59; Status DC Propofol 100 ml @ As Directed STK-MED ONCE IV ; Start 08/31/18 at 22:45; Stop 08/31/18 at 22:46; Status DC Succinylcholine Chloride (Anectine) 200 mg STK-MED ONCE .ROUTE ; Start 08/31/18 at 22:46; Stop 08/31/18 at 22:47; Status DC Atropine Sulfate (ATROPINE 1mg SYRINGE) 1 mg STK-MED ONCE .ROUTE ; Start 08/31/18 at 22:58; Stop 08/31/18 at 22:59; Status DC Fentanyl Citrate 30 ml @ 0 mls/hr CONT PRN IV SEE PROTOCOL Last administered on 09/06/18at 10:39; Start 09/01/18 at 00:00; Stop 09/06/18 at 10:59; Status DC Propofol 100 ml @ 0 mls/hr CONT PRN IV SEE PROTOCOL Last administered on 09/06/18at 08:14; Start 09/01/18 at 00:00; Stop 09/06/18 at 10:59; Status DC Chlorhexidine Gluconate (Peridex) 15 ml BID MM Last administered on 09/07/18at 09:12; Start 09/01/18 at 09:00 Midazolam HCl 100 ml @ 0 mls/hr CONT PRN IV SEE PROTOCOL; Start 09/01/18 at 00:00 Albuterol/ Ipratropium (Duoneb) 3 ml RTQID NEB Last administered on 09/07/18at 07:27; Start 09/01/18 at 08:00 Albuterol/ Ipratropium (Duoneb) 3 ml 1X ONCE NEB Last administered on 09/01/18at 01:10; Start 09/01/18 at 01:00; Stop 09/01/18 at 01:01; Status DC Succinylcholine Chloride (Anectine) 200 mg 1X ONCE IV Last administered on 08/31/18at 23:04; Start 09/01/18 at 01:15; Stop 09/01/18 at 01:16; Status DC Sodium Chloride 1,000 ml @ 1,000 mls/hr Q1H PRN IV hypotension; Start 09/01/18 at 07:00; Stop 09/01/18 at 12:59; Status DC Sodium Chloride (Normal Saline Flush) 10 ml 1X PRN PRN IV AP catheter pack; Start 09/01/18 at 07:00; Stop 09/02/18 at 06:59; Status DC Sodium Chloride (Normal Saline Flush) 10 ml 1X PRN PRN IV K[employer]ED [employer] catheter pack; Start 09/01/18 at 07:00; Stop 09/02/18 at 06:59; Status DC Sodium Chloride 1,000 ml @ 400 mls/hr Q2H30M PRN IV PATENCY; Start 09/01/18 at 07:00; Stop 09/01/18 at 18:59; Status DC Info (PHARMACY MONITORING -- do not chart) 1 each PRN DAILY PRN MC SEE COMMENTS; Start 09/01/18 at 11:00; Status Cancel Info (PHARMACY MONITORING -- do not chart) 1 each PRN DAILY PRN MC SEE COMMENTS; Start 09/01/18 at 11:00; Status Cancel Famotidine (Pepcid Vial) 20 mg Q48H IVP Last administered on 09/05/18at 22:28; Start 09/03/18 at 21:00 Sodium Chloride 90 meq/Potassium Chloride 50 meq/ Potassium Phosphate 10 mmol/ Calcium Gluconate 10 meq/ Multivitamins 10 ml/Chromium/ Copper/Manganese/ Seleni/Zn 1 ml/ Total Parenteral Nutrition/Amino Acids/Dextrose 1,512 ml @ 63 mls/hr TPN CONT IV Last administered on 09/01/18at 22:11; Start 09/01/18 at 22:00; Stop 09/02/18 at 21:59; Status DC Piperacillin Sod/ Tazobactam Sod 2.25 gm/Sodium Chloride 50 ml @ 100 mls/hr Q6HRS IV Last administered on 09/07/18at 05:53; Start 09/01/18 at 14:00 Sodium Chloride 110 meq/Potassium Chloride 50 meq/ Potassium Phosphate 10 mmol/ Calcium Gluconate 10 meq/ Multivitamins 10 ml/Chromium/ Copper/Manganese/ Seleni/Zn 1 ml/ Magnesium Sulfate 3 meq/Total Parenteral Nutrition/Amino Acids/Dextrose 1,512 ml @ 63 mls/hr TPN CONT IV Last administered on 09/02/18at 22:13; Start 09/02/18 at 22:00; Stop 09/03/18 at 21:59; Status DC Darbepoetin Phil (Aranesp) 100 mcg WEEKLYHS SQ Last administered on 09/03/18at 22:11; Start 09/03/18 at 21:00 Sodium Chloride 130 meq/Potassium Acetate 20 meq/ Calcium Gluconate 10 meq/ Multivitamins 10 ml/Chromium/ Copper/Manganese/ Seleni/Zn 1 ml/ Magnesium Sulfate 3 meq/Total Parenteral Nutrition/Amino Acids/Dextrose 1,512 ml @ 63 mls/hr TPN CONT IV Last administered on 09/03/18at 22:12; Start 09/03/18 at 22:00; Stop 09/04/18 at 21:59; Status DC Albumin Human 200 ml @ 200 mls/hr 1X PRN PRN IV Hypotension; Start 09/03/18 at 10:00; Stop 09/03/18 at 21:00; Status DC Sodium Chloride (Normal Saline Flush) 10 ml 1X PRN PRN IV AP catheter pack; St art 09/03/18 at 10:00; Stop 09/03/18 at 21:00; Status DC Sodium Chloride (Normal Saline Flush) 10 ml 1X PRN PRN IV K[employer]ITT[employer] catheter pack; Start 09/03/18 at 10:00; Stop 09/03/18 at 21:00; Status DC Sodium Chloride 1,000 ml @ 400 mls/hr Q2H30M PRN IV PATENCY; Start 09/03/18 at 10:00; Stop 09/03/18 at 21:59; Status DC Info (PHARMACY MONITORING -- do not chart) 1 each PRN DAILY PRN MC SEE COMMENTS; Start 09/03/18 at 18:15; Status UNV Atropine Sulfate (ATROPINE 0.5mg SYRINGE) 0.5 mg STK-MED ONCE .ROUTE ; Start 08/31/18 at 08:06; Stop 09/04/18 at 08:07; Status DC Epinephrine HCl (EPINEPHrine SYRINGE) 3 mg STK-MED ONCE .ROUTE ; Start 08/31/18 at 08:06; Stop 09/04/18 at 08:07; Status DC Sodium Bicarbonate (Sodium Bicarb Adult 8.4% Syr) 100 meq STK-MED ONCE .ROUTE ; Start 08/31/18 at 08:06; Stop 09/04/18 at 08:07; Status DC Levofloxacin/ Dextrose 150 ml @ 100 mls/hr QODAY IV Last administered on 09/06/18at 10:28; Start 09/04/18 at 09:00; Stop 09/07/18 at 07:52; Status DC Sodium Chloride 1,000 ml @ 1,000 mls/hr Q1H PRN IV hypotension; Start 09/04/18 at 08:23; Stop 09/04/18 at 14:24; Status DC Albumin Human 200 ml @ 200 mls/hr 1X PRN PRN IV Hypotension; Start 09/04/18 at 08:30; Stop 09/04/18 at 14:29; Status DC Sodium Chloride 1,000 ml @ 400 mls/hr Q2H30M PRN IV PATENCY; Start 09/04/18 at 08:23; Stop 09/04/18 at 20:22; Status DC Info (PHARMACY MONITORING -- do not chart) 1 each PRN DAILY PRN MC SEE COMMENTS; Start 09/04/18 at 08:30; Stop 09/05/18 at 08:55; Status DC Info (PHARMACY MONITORING -- do not chart) 1 each PRN DAILY PRN MC SEE COMMENTS; Start 09/04/18 at 08:30; Status UNV Linezolid/Dextrose 300 ml @ 300 mls/hr Q12HR IV Last administered on 09/07/18at 09:12; Start 09/05/18 at 09:30 Sodium Chloride 1,000 ml @ 1,000 mls/hr Q1H PRN IV hypotension; Start 09/05/18 at 08:51; Stop 09/05/18 at 14:50; Status DC Sodium Chloride (Normal Saline Flush) 10 ml 1X PRN PRN IV AP catheter pack; Start 09/05/18 at 09:00; Stop 09/06/18 at 08:59; Status DC Sodium Chloride (Normal Saline Flush) 10 ml 1X PRN PRN IV [employer] catheter pack; Start 09/05/18 at 09:00; Stop 09/06/18 at 08:59; Status DC Sodium Chloride 1,000 ml @ 400 mls/hr Q2H30M PRN IV PATENCY; Start 09/05/18 at 08:51; Stop 09/05/18 at 20:50; Status DC Info (PHARMACY MONITORING -- do not chart) 1 each PRN DAILY PRN MC SEE COMMENTS; Start 09/05/18 at 09:00; Stop 09/05/18 at 09:00; Status DC Info (PHARMACY MONITORING -- do not chart) 1 each PRN DAILY PRN MC SEE COMMENTS; Start 09/05/18 at 09:00 Fentanyl Citrate (Fentanyl 2ml Vial) 25 mcg PRN Q2HR PRN IV MODERATE PAIN; Start 09/06/18 at 11:00 Dexmedetomidine HCl 200 mcg/ Sodium Chloride 50 ml @ 0 mls/hr CONT PRN IV PER PROTOCOL; Start 09/06/18 at 11:00 Sodium Chloride 500 ml @ 500 mls/hr 1X PRN PRN IV SEE COMMENTS; Start 09/06/18 at 11:00 Atropine Sulfate (ATROPINE 0.5mg SYRINGE) 0.5 mg PRN Q5MIN PRN IV SEE COMMENTS; Start 09/06/18 at 11:00 Sodium Chloride 1,000 ml @ 1,000 mls/hr Q1H PRN IV hypotension; Start 09/06/18 at 11:52; Stop 09/06/18 at 17:51; Status DC Diphenhydramine HCl (Benadryl) 25 mg 1X PRN PRN IV ITCHING; Start 09/06/18 at 12:00; Stop 09/07/18 at 11:59 Diphenhydramine HCl (Benadryl) 25 mg 1X PRN PRN IV ITCHING; Start 09/06/18 at 12:00; Stop 09/07/18 at 11:59 Sodium Chloride 1,000 ml @ 400 mls/hr Q2H30M PRN IV PATENCY; Start 09/06/18 at 11:52; Stop 09/06/18 at 23:51; Status DC Info (PHARMACY MONITORING -- do not chart) 1 each PRN DAILY PRN MC SEE COMMENTS; Start 09/06/18 at 12:00; Stop 09/06/18 at 12:00; Status DC Micafungin Sodium 100 mg/Dextrose 100 ml @ 100 mls/hr Q24H IV Last admin istered on 09/07/18at 09:12; Start 09/07/18 at 08:30 Active Scripts Active Potassium Chloride 20 Meq Tablet.er 20 Meq PO DAILY Orphenadrine Citrate 100 Mg Tablet.er 100 Mg PO Q12HR Anaprox Ds (Naproxen Sodium) 550 Mg Tablet 550 Mg PO Q12HR Reported Prednisone 20 Mg Tablet 1 Tab PO DAILY Hydrochlorothiazide Tablet (Hydrochlorothiazide) 12.5 Mg Tablet 12.5 Mg PO DAILY Shilpi Allergy (Fexofenadine Hcl) 180 Mg Tablet 1 Tab PO DAILY Vitals/I & O Vital Sign - Last 24 Hours 09/06/18 09/06/18 09/06/18 09/06/18 10:00 10:05 10:39 11:00 Pulse 86 92 Resp 20 18 20 B/P (MAP) 167/82 (110) 170/91 (117) Pulse Ox 99 98 99 O2 Delivery Ventilator Ventilator Ventilator 09/06/18 09/06/18 09/06/18 09/06/18 11:19 12:00 12:00 13:00 Temp 98.5 98.5 Pulse 91 95 Resp 20 20 B/P (MAP) 167/98 (121) 162/90 (114) Pulse Ox 99 100 100 O2 Delivery Ventilator Mechanical Ventilator Ventilator Ventilator 09/06/18 09/06/18 09/06/18 09/06/18 14:00 14:21 15:00 16:00 Pulse 93 96 Resp 20 20 B/P (MAP) 147/86 (106) 158/96 (116) Pulse Ox 99 98 97 O2 Delivery Ventilator Ventilator Ventilator Mechanical Ventilator 09/06/18 09/06/18 09/06/18 09/06/18 16:00 16:28 17:00 17:45 Temp 98.6 98.6 Pulse 102 96 Resp 18 24 B/P (MAP) 173/81 (111) 152/70 (97) Pulse Ox 99 99 99 98 O2 Delivery Ventilator Ventilator Ventilator Ventilator 09/06/18 09/06/18 09/06/18 09/06/18 18:00 19:00 20:00 20:00 Temp 99.9 99.9 Pulse 98 96 99 Resp 24 24 25 B/P (MAP) 148/74 (98) 159/79 (105) 159/81 (107) Pulse Ox 98 99 99 O2 Delivery Ventilator Ventilator Ventilator Mechanical Ventilator 09/06/18 09/06/18 09/06/18 09/06/18 20:15 21:00 22:00 23:00 Pulse 95 87 86 Resp 24 21 21 B/P (MAP) 160/71 (100) 148/68 (94) 155/87 (109) Pulse Ox 99 100 100 100 O2 Delivery Ventilator Ventilator Ventilator Ventilator 09/07/18 09/07/18 09/07/18 09/07/18 00:00 00:01 00:17 01:00 Temp 100.1 100.1 Pulse 90 93 Resp 23 23 B/P (MAP) 148/84 (105) 149/84 (105) Pulse Ox 99 99 99 O2 Delivery Mechanical Ventilator Ventilator Ventilator Ventilator 09/07/18 09/07/18 09/07/18 09/07/18 02:00 03:00 03:23 04:00 Temp 98.9 98.9 Pulse 99 85 88 Resp 24 22 19 B/P (MAP) 155/80 (105) 153/76 (101) 140/70 (93) Pulse Ox 99 99 98 99 O2 Delivery Ventilator Ventilator Ventilator Ventilator 09/07/18 09/07/18 09/07/18 09/07/18 04:00 05:00 05:39 06:00 Pulse 82 69 Resp 30 25 B/P (MAP) 141/77 (98) 102/48 (66) Pulse Ox 99 98 99 O2 Delivery Mechanical Ventilator Ventilator Ventilator Ventilator 09/07/18 09/07/18 09/07/18 09/07/18 07:27 08:00 08:00 09:04 Temp 98.8 98.8 Pulse 79 Resp 16 B/P (MAP) 147/75 (99) Pulse Ox 99 97 98 O2 Delivery Ventilator Mechanical Ventilator Ventilator Ventilator Intake and Output 09/06/18 09/06/18 09/07/18 15:00 23:00 07:00 Intake Total 400 ml 974 ml 300 ml Output Total 0 ml 3000 ml 15 ml Balance 400 ml -2026 ml 285 ml VIJAY BLEVINS MD September 07, 2018 09:51
--- NOTE | 2018-09-07 10:00 | NUR ---
2 copious loose dark green stools this AM. Rectal tube placed without incidence. Draining well.
--- NOTE | 2018-09-07 10:14 | PDOC ---
PULMONARY PROGRESS NOTES Subjective intubated 08/31, ON AC MODE OFF SEDATION, MORE RESPONSIVE Vitals Vital Signs Date Time Temp Pulse Resp B/P (MAP) Pulse Ox O2 Delivery O2 Flow Rate FiO2 09/07/18 09:04 98 Ventilator 09/07/18 08:00 98.8 79 16 147/75 (99) 98.8 Lungs: Clear Cardiovascular: S1, S2 Abdomen: Soft, Non-tender, Other (no mass) Extremities: Other (1+edema) Skin: Warm Labs Laboratory Tests Test 09/06/18 05:40 09/06/18 08:00 09/07/18 06:05 09/07/18 07:35 Sodium Level 135 mmol/L (136-145) 138 mmol/L (136-145) Potassium Level 5.7 mmol/L (3.5-5.1) 4.3 mmol/L (3.5-5.1) Chloride Level 96 mmol/L (98-107) 97 mmol/L (98-107) Carbon Dioxide Level 21 mmol/L (21-32) 22 mmol/L (21-32) Anion Gap 18 (6-14) 19 (6-14) Blood Urea Nitrogen 90 mg/dL (8-26) 79 mg/dL (8-26) Creatinine 8.9 mg/dL (0.7-1.3) 7.1 mg/dL (0.7-1.3) Estimated GFR (Cockcroft-Gault) 6.3 8.1 Glucose Level 115 mg/dL (70-99) 128 mg/dL (70-99) Calcium Level 7.3 mg/dL (8.5-10.1) 7.0 mg/dL (8.5-10.1) Phosphorus Level 9.1 mg/dL (2.6-4.7) 8.7 mg/dL (2.6-4.7) Magnesium Level 2.3 mg/dL (1.8-2.4) 2.3 mg/dL (1.8-2.4) Albumin 2.1 g/dL (3.4-5.0) O2 Saturation 97 % (92-99) 98 % (92-99) Arterial Blood pH 7.39 (7.35-7.45) 7.43 (7.35-7.45) Arterial Blood pCO2 at Patient Temp 30 mmHg (35-46) 33 mmHg (35-46) Arterial Blood pO2 at Patient Temp 110 mmHg (75-108) 124 mmHg (75-108) Arterial Blood HCO3 18 mmol/L (21-28) 22 mmol/L (21-28) Arterial Blood Base Excess -6 mmol/L (-3-3) -2 mmol/L (-3-3) FiO2 40 35% Laboratory Tests Test 09/07/18 06:05 09/07/18 07:35 Sodium Level 138 mmol/L (136-145) Potassium Level 4.3 mmol/L (3.5-5.1) Chloride Level 97 mmol/L (98-107) Carbon Dioxide Level 22 mmol/L (21-32) Anion Gap 19 (6-14) Blood Urea Nitrogen 79 mg/dL (8-26) Creatinine 7.1 mg/dL (0.7-1.3) Estimated GFR (Cockcroft-Gault) 8.1 Glucose Level 128 mg/dL (70-99) Calcium Level 7.0 mg/dL (8.5-10.1) Phosphorus Level 8.7 mg/dL (2.6-4.7) Magnesium Level 2.3 mg/dL (1.8-2.4) O2 Saturation 98 % (92-99) Arterial Blood pH 7.43 (7.35-7.45) Arterial Blood pCO2 at Patient Temp 33 mmHg (35-46) Arterial Blood pO2 at Patient Temp 124 mmHg (75-108) Arterial Blood HCO3 22 mmol/L (21-28) Arterial Blood Base Excess -2 mmol/L (-3-3) FiO2 35% Medications Active Scripts Medications Dose Route/Sig Max Daily Dose Days Date Category Prednisone 20 Mg Tablet 1 Tab PO DAILY 08/26/18 Reported Hydrochlorothiazide Tablet (Hydrochlorothiazide) 12.5 Mg Tablet 12.5 Mg PO DAILY 08/26/18 Reported Shilpi Allergy (Fexofenadine Hcl) 180 Mg Tablet 1 Tab PO DAILY 08/26/18 Reported Potassium Chloride 20 Meq Tablet.er 20 Meq PO DAILY 08/24/18 Rx Orphenadrine Citrate 100 Mg Tablet.er 100 Mg PO Q12HR 02/03/16 Rx Anaprox Ds (Naproxen Sodium) 550 Mg Tablet 550 Mg PO Q12HR 02/03/16 Rx Comments CXR REVIEWED 09/07 SMALL/ ATELECTASIS/ EFFUSION LEFT/ IMPROVED Impression . IMPRESSION: 1. 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 2. 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 Fever. 4. Lactic acidosis. 5. Acute renal failure. 6. Acute hepatic injury. 7. Thrombocytopenia, improving. 8. Hemochromatosis. 9. ACUTE TOXIC MET ENCEPH POA 10 DYSPHAGIA 11.ENCEPHALITIS 12. FUNGEMIA Plan . AC MODE FOR SUPPORT ABG ADEQUATE OFF FENTANYL / MORE AWAKE, WEAK CONSIDER CPAP TRIAL TODAY POSSIBLE EXTUBATION OVER WEEKEND ANTIBX PER ID NUTRION PER PCP fu sputum cx , yeast, likely contaminant difficult intubation, need upper airway test bf sbt when ready D/W RN, ANIT-FUNGAL PER ID LINES WILL BE DC'D TODAY f/u cxr DYANA BERRY MD September 07, 2018 10:14
[2018-09-07 11:17] LABS: FRANCISELLA TULARENSIS ABDY Negative (Negative)
--- NOTE | 2018-09-07 11:27 | PDOC ---
Subjective: Subjective: tells me her son had an outpt EGD here this morning. Objective: Objective: Reviewed w/ RN - greenish diarrhea, now has rectal tube. Vital Signs: Vital Signs Date Time Temp Pulse Resp B/P (MAP) Pulse Ox O2 Delivery O2 Flow Rate FiO2 09/07/18 10:41 99 Ventilator 09/07/18 08:00 98.8 79 16 147/75 (99) 98.8 Labs: Laboratory Tests Test 09/07/18 06:05 09/07/18 07:35 Sodium Level 138 mmol/L Potassium Level 4.3 mmol/L Chloride Level 97 mmol/L Carbon Dioxide Level 22 mmol/L Anion Gap 19 Blood Urea Nitrogen 79 mg/dL Creatinine 7.1 mg/dL Estimated GFR (Cockcroft-Gault) 8.1 Glucose Level 128 mg/dL Calcium Level 7.0 mg/dL Phosphorus Level 8.7 mg/dL Magnesium Level 2.3 mg/dL O2 Saturation 98 % Arterial Blood pH 7.43 Arterial Blood pCO2 at Patient Temp 33 mmHg Arterial Blood pO2 at Patient Temp 124 mmHg Arterial Blood HCO3 22 mmol/L Arterial Blood Base Excess -2 mmol/L FiO2 35% URINE CULTURE Final Final report URINE CULTURE RES 1 Final No growth ORDERED: SPUTUM CULTURE GRAM STAIN WHITE BLOOD CELLS Final PMO GRAM STAIN EPITHELIAL CELLS Final Few GRAM STAIN RESULT 1 Final No organisms seen GRAM STAIN EVALUATION Final Comment This specimen is of good quality and is acceptable for routine bacterial culture. Performed at: - [facility] [address], [place], [place] [id number] Student Counsellor: CANDIDA Ramírez MD, Phone: [phone] SPUTUM CULTURE-LC PENDING BLOOD CULTURE Final YEAST IN 1 OF 2 BOTTLES OF A SINGLE SET DRAWN ON 09/04/18. CALLED TO KASIA VALDES IN ICU 09/07/18 AT 0815 BY Felton MEZA. CULTURE HAS BEEN SENT TO [facility] FOR FURTHER IDENTIFICATION. Imaging: CXR 09/07 IMPRESSION: 1. Stable tube positions. 2. Mild left basilar atelectasis/infiltrate has improved slightly. PE: GEN: intubated LUNGS: vent HEART: RRR ABD: soft, tube feeds running, rectal tube (empty currently) NEURO/PSYCH: drowsy A/P: MOSF Diarrhea -- Now w/ rectal tube. Plans to DC lines w/ fungemia. ELVIA NOE September 07, 2018 11:27
--- NOTE | 2018-09-07 11:27 | PDOC ---
Renal-Progress Notes Subjective Notes Notes NOTHING NEW History of Present Illness Hx of present illness STABLE Vitals Vitals Vital Signs Date Time Temp Pulse Resp B/P (MAP) Pulse Ox O2 Delivery O2 Flow Rate FiO2 09/07/18 10:41 99 Ventilator 09/07/18 08:00 98.8 79 16 147/75 (99) 98.8 Weight Weight [ ] I.O. Intake and Output Intake and Output 09/07/18 07:00 Intake Total 1674 ml Output Total 3015 ml Balance -1341 ml IV Total 100 ml Tube Feeding 1524 ml Other 50 ml Output Urine Total 15 ml Gastric Drainage Total 0 ml Other 3000 ml Labs Labs Laboratory Tests Test 09/07/18 06:05 09/07/18 07:35 Sodium Level 138 mmol/L (136-145) Potassium Level 4.3 mmol/L (3.5-5.1) Chloride Level 97 mmol/L (98-107) Carbon Dioxide Level 22 mmol/L (21-32) Anion Gap 19 (6-14) Blood Urea Nitrogen 79 mg/dL (8-26) Creatinine 7.1 mg/dL (0.7-1.3) Estimated GFR (Cockcroft-Gault) 8.1 Glucose Level 128 mg/dL (70-99) Calcium Level 7.0 mg/dL (8.5-10.1) Phosphorus Level 8.7 mg/dL (2.6-4.7) Magnesium Level 2.3 mg/dL (1.8-2.4) O2 Saturation 98 % (92-99) Arterial Blood pH 7.43 (7.35-7.45) Arterial Blood pCO2 at Patient Temp 33 mmHg (35-46) Arterial Blood pO2 at Patient Temp 124 mmHg (75-108) Arterial Blood HCO3 22 mmol/L (21-28) Arterial Blood Base Excess -2 mmol/L (-3-3) FiO2 35% Micro Micro Microbiology 09/04/18 Blood Culture - Final, Complete 08/29/18 CSF Gram Stain - Final, Complete 08/27/18 Stool Culture - Final, Complete 08/27/18 Stool Culture Result 1 (LOTUS) - Final, Complete 08/27/18 Campylobacter Antigen Assay - Final, Complete 08/27/18 Campylobactor Result 1 - Final, Complete 08/27/18 Shiga Toxin Test - Final, Complete 09/05/18 - Final, Resulted 09/05/18 - Final, Resulted 09/05/18 - Final, Resulted 09/05/18 Gram Stain Evaluation - Final, Resulted 09/05/18 Sputum Culture, Resulted Pending 09/04/18 Urine Culture - Final, Complete 09/04/18 Urine Culture Result 1 (LOTUS) - Final, Complete Physical Exam Skin: warm, dry, moist Respiratory: decreased breath sounds Heart: S1S2 Abdomen: soft, other (HYPOACTIVE) Genitourinary: bladder flat, rose catheter Extremities: pulses present Neurology: other (SEDATED) Assessment Assessment IMP RADHA-ATN HYPERKALEMIA SEPSIS THROMBOCYTOPENIA-IMPROVING ACUTE RESP FAILURE LACTIC ACIDOSIS LEUCOCYTOSIS NEW FUNGEMIA PLAN HD TODAY UF TO DW VENT SUPPORT CONT TF ANTIBIOTICS WILL FOLLOW D/C DIALYSIS CATHETER AFTER HD TODAY WILL NEED NEW LINE ON MONDAY MIRNA BLUNT MD September 07, 2018 11:27
[2018-09-07] MEDS ORDERED: IV NORMAL SALINE 1000ML BAG 1,000 ML IV PRN ×2 (16:29)
[2018-09-07] MEDS ORDERED: diphenhydrAMINE 50 MG/ML VIAL IV PRN ×2 (16:30)
[2018-09-07] MEDS ORDERED: DIALYSIS PATIENT. MC PRN (16:30)
[2018-09-07] MEDS: FAMOTIDINE 20 MG/2 ML VIAL IVP SCH (21:21)
[2018-09-08] VITALS (25 sets, daily range): BP systolic 106–169; BP diastolic 3–92
[2018-09-08] MEDS: PIPERACILLIN/TAZOBACTAM 2.25 GM in IV NORMAL SALINE 50ML 50 ML IV SCH ×5 (00:07→23:54)
[2018-09-08] MEDS: fentaNYL PF VIAL 100 MCG/2 ML VIAL IV PRN ×2 (00:07→04:34)
[2018-09-08 06:28] LABS: RED BLOOD COUNT 2.25 x10^6/uL (4.30-5.70); RED CELL DISTRIBUTION WIDTH 19.1 % (11.5-14.5); WHITE BLOOD COUNT 6.5 x10^3/uL (4.0-11.0)
[2018-09-08 06:50] LABS: ALBUMIN/GLOBULIN RATIO 0.5 (1.0-1.7); CALCIUM 7.1 mg/dL (8.5-10.1); CREATININE 5.9 mg/dL (0.7-1.3); GFR 10.1; POTASSIUM 4.3 mmol/L (3.5-5.1); TOTAL BILIRUBIN 0.9 mg/dL (0.2-1.0); TOTAL PROTEIN 6.4 g/dL (6.4-8.2)
[2018-09-08 06:58] LABS: HEMATOCRIT 19.3 % (39.0-53.0); HEMOGLOBIN 6.5 g/dL (13.0-17.5)
[2018-09-08] MEDS: IPRATRPIUM/ALBUTEROL 0.5/2.5MG 3 ML NEBU. NEB SCH ×4 (08:15→20:28)
--- NOTE | 2018-09-08 08:30 | PDOC ---
PROGRESS NOTES Chief Complaint Chief Complaint Sepsis Encephalopathy Encephalitis of undetermined etiology Respiratory failure Probable tick-borne illness, suspected. with h/o tick bite 3 weeks ago at [place] Lactic acidosis. Fever. Bandemia. Acute hepatic injury Acute kidney injury. Thrombocytopenia. Hemochromatosis. LLE dermatitis improving, ? poison [place],resolving with local treatment History of Present Illness History of Present Illness Mr Kirk is a 52-year-old male with a past medical history of hemochromatosis who is pretty healthy otherwise and very active. About 3 weeks ago, he was at [facility] [place] and found a tick embedded on the back of his right thigh. He pulled it out and thought nothing of it. The next day, he was cleaning up a yard with a few other persons from [employer]. He recalls kneeling down on his left knee pulling wheat. A few days later, he developed an itchy red blistering rash on his left knee that improved with [id number] ivory rest. He then developed a different type of rash that was itchy, splotchy and red on the inner aspect of both arms. He was seen by his doctor and prescribed Bactrim for infection. 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 About a week later, on Friday 08/18, he went to a men's breakfast and a [employer] meeting. Afterwards, he felt unusually tired. Over the following 24 hours, he did not feel well. He developed fever, chills, joint pains and muscle aches. He alternated taking ibuprofen and Tylenol without relief. He was seen at urgent care center and prescribed prednisone for upper respiratory infection. Unfortunately, he felt worse. He lost his appetite and was not drinking much and was urinating less. His said he was sleeping more, moaned, seemed lethargic and confused, prompting the ER visit. On arrival to the ER, he had a temperature of 100.3, respiratory rate 28. Laboratory values returned abnormal with a WBC count 6.2, segs 68%, bands 24%, platelets 17,000. Lactic acid was 5.1. Sed rate 11. He had elevated LFTs and acute kidney injury. Cultures were ordered. He was dosed with vancomycin, ceftriaxone and aztreonam in the ER. ID adjusted his antibiotics to daptomycin, meropenem and doxycycline. He was feeling improved, then on 08/28/2018 continued to worsen, was started on dialysis, required increasing O2 and was placed on BIPAP and ultimately intubated on 08/31/2018. Serology for HIV, HSV, [place] spotted fever and Ehrlichia all thus negative. Had LP on 08/29/18 with increased protein. His spouse notes no recent travel, last time he was out of the country was [facility] in 2003. 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 He struggled with infidelity over the last year and over the weekend had HIV testing consent per , this was negative as well as syphilis testing. Patient seen and examined in the ICU. is bedside today. Patient is on the v ent assist / with 35% FiO2 and 5 of PEEP, on sedation wean right now, breathing very comfortably. He is extremely ill. Fungal cultures positive in blood. HD cath and CVC pulled yesterday awaiting negative cultures prior to reinsertion. Plan for dialysis again on Monday unless labs indicate he need it earlier Type and screen, will only transfuse per hematology and nephrology. Now without fevers after broadened coverage with ID yesterday including micafungin. Have d/w ID to broaden coverage further. He remains guardedly critically ill. May be able to extubate CC 38 minutes today Vitals Vitals Vital Signs Date Time Temp Pulse Resp B/P (MAP) Pulse Ox O2 Delivery O2 Flow Rate FiO2 09/08/18 06:06 71 18 136/69 (91) 100 Ventilator 09/08/18 05:29 15.0 09/08/18 04:00 98.1 98.1 Physical Exam Physical Exam GENERAL:intubated, opens eyes HEENT: Pupils equally round, reactive. No conjunctivae petechia. ETT + NECK: Supple.HDC ,looks ok LUNGS: dec bs at bases HEART: S1 and S2. ABDOMEN: Obese, soft, nontender with bowel sounds present. rose in place ,minimal urine output EXTREMITIES:no edema,no cyanosis. SKIN: Warm , rash over both posterior aspect of bue NEUROLOGIC: sedated on vent,responds to tactile stimuli LUE midline looks ok General: No acute distress Heart: Normal S1, Normal S2 Lungs: Clear Abdomen: Soft, Other (TF infusing) Extremities: No clubbing, No cyanosis, No edema Skin: No significant lesion, Other (healing rash and excoriations on Left lower extremity. No obvious petechiae) Labs LABS Laboratory Tests Test 09/08/18 06:15 White Blood Count 6.5 x10^3/uL (4.0-11.0) Red Blood Count 2.25 x10^6/uL (4.30-5.70) Hemoglobin 6.5 g/dL (13.0-17.5) Hematocrit 19.3 % (39.0-53.0) Mean Corpuscular Volume 86 fL (79-100) Mean Corpuscular Hemoglobin 29 pg (25-35) Mean Corpuscular Hemoglobin Concent 34 g/dL (31-37) Red Cell Distribution Width 19.1 % (11.5-14.5) Platelet Count 287 x10^3/uL (140-400) Sodium Level 137 mmol/L (136-145) Potassium Level 4.3 mmol/L (3.5-5.1) Chloride Level 97 mmol/L (98-107) Carbon Dioxide Level 24 mmol/L (21-32) Anion Gap 16 (6-14) Blood Urea Nitrogen 64 mg/dL (8-26) Creatinine 5.9 mg/dL (0.7-1.3) Estimated GFR (Cockcroft-Gault) 10.1 BUN/Creatinine Ratio 11 (6-20) Glucose Level 116 mg/dL (70-99) Calcium Level 7.1 mg/dL (8.5-10.1) Total Bilirubin 0.9 mg/dL (0.2-1.0) Aspartate Amino Transf (AST/SGOT) 42 U/L (15-37) Alanine Aminotransferase (ALT/SGPT) 30 U/L (16-63) Alkaline Phosphatase 121 U/L (46-116) Total Protein 6.4 g/dL (6.4-8.2) Albumin 2.0 g/dL (3.4-5.0) Albumin/Globulin Ratio 0.5 (1.0-1.7) Assessment and Plan Assessmemt and Plan Problems Medical Problems: (1) Acute renal failure Status: Acute Comment Review of Relevant I have reviewed the following items gera (where applicable) has been applied. Labs Laboratory Tests Test 09/07/18 06:05 09/07/18 07:35 09/08/18 06:15 Sodium Level 138 mmol/L (136-145) 137 mmol/L (136-145) Potassium Level 4.3 mmol/L (3.5-5.1) 4.3 mmol/L (3.5-5.1) Chloride Level 97 mmol/L (98-107) 97 mmol/L (98-107) Carbon Dioxide Level 22 mmol/L (21-32) 24 mmol/L (21-32) Anion Gap 19 (6-14) 16 (6-14) Blood Urea Nitrogen 79 mg/dL (8-26) 64 mg/dL (8-26) Creatinine 7.1 mg/dL (0.7-1.3) 5.9 mg/dL (0.7-1.3) Estimated GFR (Cockcroft-Gault) 8.1 10.1 Glucose Level 128 mg/dL (70-99) 116 mg/dL (70-99) Calcium Level 7.0 mg/dL (8.5-10.1) 7.1 mg/dL (8.5-10.1) Phosphorus Level 8.7 mg/dL (2.6-4.7) Magnesium Level 2.3 mg/dL (1.8-2.4) O2 Saturation 98 % (92-99) Arterial Blood pH 7.43 (7.35-7.45) Arterial Blood pCO2 at Patient Temp 33 mmHg (35-46) Arterial Blood pO2 at Patient Temp 124 mmHg (75-108) Arterial Blood HCO3 22 mmol/L (21-28) Arterial Blood Base Excess -2 mmol/L (-3-3) FiO2 35% White Blood Count 6.5 x10^3/uL (4.0-11.0) Red Blood Count 2.25 x10^6/uL (4.30-5.70) Hemoglobin 6.5 g/dL (13.0-17.5) Hematocrit 19.3 % (39.0-53.0) Mean Corpuscular Volume 86 fL (79-100) Mean Corpuscular Hemoglobin 29 pg (25-35) Mean Corpuscular Hemoglobin Concent 34 g/dL (31-37) Red Cell Distribution Width 19.1 % (11.5-14.5) Platelet Count 287 x10^3/uL (140-400) BUN/Creatinine Ratio 11 (6-20) Total Bilirubin 0.9 mg/dL (0.2-1.0) Aspartate Amino Transf (AST/SGOT) 42 U/L (15-37) Alanine Aminotransferase (ALT/SGPT) 30 U/L (16-63) Alkaline Phosphatase 121 U/L (46-116) Total Protein 6.4 g/dL (6.4-8.2) Albumin 2.0 g/dL (3.4-5.0) Albumin/Globulin Ratio 0.5 (1.0-1.7) Laboratory Tests Test 09/08/18 06:15 White Blood Count 6.5 x10^3/uL (4.0-11.0) Red Blood Count 2.25 x10^6/uL (4.30-5.70) Hemoglobin 6.5 g/dL (13.0-17.5) Hematocrit 19.3 % (39.0-53.0) Mean Corpuscular Volume 86 fL (79-100) Mean Corpuscular Hemoglobin 29 pg (25-35) Mean Corpuscular Hemoglobin Concent 34 g/dL (31-37) Red Cell Distribution Width 19.1 % (11.5-14.5) Platelet Count 287 x10^3/uL (140-400) Sodium Level 137 mmol/L (136-145) Potassium Level 4.3 mmol/L (3.5-5.1) Chloride Level 97 mmol/L (98-107) Carbon Dioxide Level 24 mmol/L (21-32) Anion Gap 16 (6-14) Blood Urea Nitrogen 64 mg/dL (8-26) Creatinine 5.9 mg/dL (0.7-1.3) Estimated GFR (Cockcroft-Gault) 10.1 BUN/Creatinine Ratio 11 (6-20) Glucose Level 116 mg/dL (70-99) Calcium Level 7.1 mg/dL (8.5-10.1) Total Bilirubin 0.9 mg/dL (0.2-1.0) Aspartate Amino Transf (AST/SGOT) 42 U/L (15-37) Alanine Aminotransferase (ALT/SGPT) 30 U/L (16-63) Alkaline Phosphatase 121 U/L (46-116) Total Protein 6.4 g/dL (6.4-8.2) Albumin 2.0 g/dL (3.4-5.0) Albumin/Globulin Ratio 0.5 (1.0-1.7) Microbiology 09/04/18 Blood Culture - Final, Complete 08/29/18 CSF Gram Stain - Final, Complete 08/27/18 Stool Culture - Final, Complete 08/27/18 Stool Culture Result 1 (LOTUS) - Final, Complete 08/27/18 Campylobacter Antigen Assay - Final, Complete 08/27/18 Campylobactor Result 1 - Final, Complete 08/27/18 Shiga Toxin Test - Final, Complete 09/05/18 - Final, Resulted 09/05/18 - Final, Resulted 09/05/18 - Final, Resulted 09/05/18 Gram Stain Evaluation - Final, Resulted 09/05/18 Sputum Culture - Preliminary, Resulted 09/05/18 Sputum Result 1 - Final, Resulted 09/04/18 Urine Culture - Final, Complete 09/04/18 Urine Culture Result 1 (LOTUS) - Final, Complete Medications Current Medications Sodium Chloride 1,000 ml @ 1,000 mls/hr 1X ONCE IV Last administered on 08/25/18at 20:38; Start 08/25/18 at 19:15; Stop 08/25/18 at 20:14; Status DC Ibuprofen (Motrin) 600 mg 1X ONCE PO Last administered on 08/25/18at 20:38; Start 08/25/18 at 19:45; Stop 08/25/18 at 19:49; Status DC Sodium Chloride 1,000 ml @ 1,000 mls/hr 1X ONCE IV Last administered on 08/25/18at 20:30; Start 08/25/18 at 20:30; Stop 08/25/18 at 21:29; Status DC Ceftriaxone Sodium (Rocephin) 1 gm 1X ONCE IVP Last administered on 08/25/18at 20:36; Start 08/25/18 at 20:30; Stop 08/25/18 at 20:31; Status DC Vancomycin HCl 2 gm/Sodium Chloride 500 ml @ 250 mls/hr 1X ONCE IV Last administered on 08/25/18at 23:10; Start 08/25/18 at 21:30; Stop 08/25/18 at 23:29; Status DC Sodium Chloride 1,000 ml @ 1,000 mls/hr 1X ONCE IV Last administered on 08/25/18 23:51; Start 08/25/18 at 21:00; Stop 08/25/18 at 21:59; Status DC Piperacillin Sod/ Tazobactam Sod 4.5 gm/Sodium Chloride 100 ml @ 200 mls/hr 1X ONCE IV ; Start 08/25/18 at 21:15; Stop 08/25/18 at 21:44; Status DC Aztreonam (Azactam) 2 gm 1X ONCE IVP Last administered on 08/25/18at 21:15; Start 08/25/18 at 21:15; Stop 08/25/18 at 21:16; Status DC Magnesium Sulfate 50 ml @ 25 mls/hr 1X ONCE IV Last administered on 08/25/18 23:51; Start 08/25/18 at 21:15; Stop 08/25/18 at 23:14; Status DC Ondansetron HCl (Zofran) 4 mg PRN Q8HRS PRN IV NAUSEA/VOMITING; Start 08/25/18 at 21:15; Stop 08/26/18 at 21:14; Status DC Acetaminophen (Tylenol) 650 mg PRN Q4HRS PRN PO FEVER; Start 08/25/18 at 21:15; Stop 08/26/18 at 21:14; Status DC Sodium Chloride 1,000 ml @ 125 mls/hr 1X ONCE IV Last administered on 08/25/18at 23:09; Start 08/25/18 at 21:15; Stop 08/26/18 at 05:14; Status DC Daptomycin 610 mg/ Sodium Chloride 50 ml @ 100 mls/hr QODAY IV Last administered on 08/27/18at 08:59; Start 08/27/18 at 09:00; Stop 08/28/18 at 15:40; Status DC Meropenem 500 mg/ Sodium Chloride 50 ml @ 100 mls/hr 1X ONCE IV Last admin istered on 08/25/18at 22:12; Start 08/25/18 at 22:00; Stop 08/25/18 at 22:29; Status DC Doxycycline Hyclate 100 mg/ Dextrose 100 ml @ 50 mls/hr Q12HR IV Last administered on 09/03/18at 22:11; Start 08/26/18 at 09:00; Stop 09/04/18 at 08:11; Status DC Meropenem 500 mg/ Sodium Chloride 50 ml @ 100 mls/hr DAILY IV Last administered on 08/29/18at 10:13; Start 08/26/18 at 09:00; Stop 08/30/18 at 08:17; Status DC Sodium Chloride (Normal Saline Flush) 10 ml QSHIFT PRN IV AFTER MEDS AND BLOOD DRAWS; Start 08/26/18 at 09:15 Norepinephrine Bitartrate 250 ml @ 0 mls/hr CONT PRN IV PER PROTOCOL Last administered on 08/27/18at 10:21; Start 08/26/18 at 09:15; Stop 08/30/18 at 17:20; Status DC Famotidine (Pepcid) 20 mg DAILY PO Last administered on 08/27/18at 08:14; Start 08/26/18 at 12:00; Stop 08/27/18 at 14:36; Status DC Sodium Chloride 1,000 ml @ 1,000 mls/hr Q1H PRN IV hypotension; Start 08/26/18 at 11:51; Stop 08/26/18 at 17:50; Status DC Sodium Chloride (Normal Saline Flush) 10 ml 1X PRN PRN IV AP catheter pack; Start 08/26/18 at 12:00; Stop 08/27/18 at 11:59; Status DC Sodium Chloride (Normal Saline Flush) 10 ml 1X PRN PRN IV BILLING ASSOCIATE catheter pack; Start 08/26/18 at 12:00; Stop 08/27/18 at 11:59; Status DC Sodium Chloride 1,000 ml @ 400 mls/hr Q2H30M PRN IV PATENCY; Start 08/26/18 at 11:51; Stop 08/26/18 at 23:50; Status DC Info (PHARMACY MONITORING -- do not chart) 1 each PRN DAILY PRN MC SEE COMMENTS; Start 08/26/18 at 12:00; Status UNV Info (PHARMACY MONITORING -- do not chart) 1 each PRN DAILY PRN MC SEE COMMENTS; Start 08/26/18 at 12:00; Stop 09/01/18 at 10:59; Status DC Lidocaine/Sodium Bicarbonate (Buffered Lidocaine 1%) 4 ml 1X ONCE INJ Last administered on 08/26/18at 12:45; Start 08/26/18 at 12:45; Stop 08/26/18 at 12:48; Status DC Heparin Sodium (Porcine) (Heparin Sodium) 2,500 unit 1X ONCE INT CAT Last administered on 08/26/18at 12:45; Start 08/26/18 at 12:45; Stop 08/26/18 at 12:48; Status DC Lidocaine/Sodium Bicarbonate (Buffered Lidocaine 1%) 3 ml STK-MED ONCE .ROUTE ; Start 08/26/18 at 12:49; Stop 08/26/18 at 12:50; Status DC Heparin Sodium (Porcine) (Heparin Sodium) 10,000 unit STK-MED ONCE .ROUTE ; Start 08/26/18 at 12:49; Stop 08/26/18 at 12:50; Status DC Lactobacillus Rhamnosus (Culturelle) 1 cap BID PO Last administered on 09/07/18 at 21:22; Start 08/26/18 at 21:00 Acetaminophen (Tylenol) 325 mg STK-MED ONCE PO ; Start 08/27/18 at 00:43; Stop 08/27/18 at 00:44; Status DC Sodium Chloride 1,000 ml @ 1,000 mls/hr 1X ONCE IV Last administered on 08/27/18at 11:05; Start 08/27/18 at 10:30; Stop 08/27/18 at 11:29; Status DC Sodium Chloride 1,000 ml @ 1,000 mls/hr Q1H PRN IV hypotension; Start 08/27/18 at 11:28; Stop 08/27/18 at 17:27; Status DC Albumin Human 200 ml @ 200 mls/hr 1X PRN PRN IV Hypotension; Start 08/27/18 at 11:30; Stop 08/27/18 at 17:29; Status DC Sodium Chloride (Normal Saline Flush) 10 ml 1X PRN PRN IV AP catheter pack; Start 08/27/18 at 11:30; Stop 08/28/18 at 11:29; Status DC Sodium Chloride (Normal Saline Flush) 10 ml 1X PRN PRN IV BILLING ASSOCIATE catheter pack; Start 08/27/18 at 11:30; Stop 08/28/18 at 11:29; Status DC Sodium Chloride 1,000 ml @ 400 mls/hr Q2H30M PRN IV PATENCY; Start 08/27/18 at 11:28; Stop 08/27/18 at 23:27; Status DC Info (PHARMACY MONITORING -- do not chart) 1 each PRN DAILY PRN MC SEE COMMENTS; Start 08/27/18 at 11:30; Status UNV Info (PHARMACY MONITORING -- do not chart) 1 each PRN DAILY PRN MC SEE COMMENTS; Start 08/27/18 at 11:30; Status UNV Famotidine (Pepcid) 20 mg Q48H PO ; Start 08/29/18 at 09:00; Stop 08/29/18 at 11:29; Status DC Acetaminophen (Tylenol) 650 mg PRN Q6HRS PRN PO pain/fever; Start 08/27/18 at 21:15 Acetaminophen (Tylenol Supp) 650 mg PRN Q6HRS PRN TX MILD PAIN / TEMP Last administered on 09/02/18at 01:18; Start 08/27/18 at 21:15 Fentanyl Citrate (Fentanyl 2ml Vial) 25 mcg 1X ONCE IV Last administered on 08/28/18at 08:54; Start 08/28/18 at 08:45; Stop 08/28/18 at 08:47; Status DC Lidocaine/Sodium Bicarbonate (Buffered Lidocaine 1%) 3 ml STK-MED ONCE .ROUTE ; Start 08/28/18 at 09:55; Stop 08/28/18 at 09:56; Status DC Lidocaine HCl (Glydo (Lidocaine) Jelly) 1 meng 1X STAT MM Last administered on 08/28/18at 10:16; Start 08/28/18 at 10:16; Stop 08/28/18 at 10:19; Status DC Benzocaine (Hurricaine One) 1 spray 1X STAT MM Last administered on 08/28/18at 10:16; Start 08/28/18 at 10:16; Stop 08/28/18 at 10:19; Status DC Lidocaine/Sodium Bicarbonate (Buffered Lidocaine 1%) 3 ml 1X ONCE INJ ; Start 08/28/18 at 10:30; Stop 08/28/18 at 10:31; Status DC Haloperidol Lactate (Haldol Inj) 5 mg PRN Q6HRS PRN IVP AGITATION Last administered on 09/06/18at 05:53; Start 08/28/18 at 12:00 Fentanyl Citrate (Fentanyl 2ml Vial) 50 mcg PRN Q4HRS PRN IV PAIN Last administ ered on 08/28/18at 21:44; Start 08/28/18 at 15:30; Stop 09/05/18 at 02:11; Status DC Sodium Chloride 1,000 ml @ 1,000 mls/hr Q1H PRN IV hypotension; Start 08/28/18 at 14:00; Stop 08/28/18 at 19:59; Status DC Albumin Human 200 ml @ 200 mls/hr 1X PRN PRN IV Hypotension Last administered on 08/28/18at 14:50; Start 08/28/18 at 14:00; Stop 09/03/18 at 18:17; Status DC Sodium Chloride 1,000 ml @ 400 mls/hr Q2H30M PRN IV PATENCY; Start 08/28/18 at 14:00; Stop 08/29/18 at 01:59; Status DC Info (PHARMACY MONITORING -- do not chart) 1 each PRN DAILY PRN MC SEE COMMENTS; Start 08/28/18 at 15:30; Status UNV Info (PHARMACY MONITORING -- do not chart) 1 each PRN DAILY PRN MC SEE COMMENTS; Start 08/28/18 at 15:30; Status UNV Daptomycin 610 mg/ Sodium Chloride 50 ml @ 100 mls/hr Q48H IV ; Start 08/30/18 at 16:00; Stop 08/30/18 at 16:00; Status DC Famotidine (Pepcid Vial) 20 mg QHS IVP Last administered on 08/31/18at 20:59; Start 08/29/18 at 21:00; Stop 09/01/18 at 11:00; Status DC Acyclovir Sodium 340 mg/Dextrose 106.8 ml @ 106.8 mls/ hr Q12HR IV Last administered on 09/01/18at 11:05; Start 08/30/18 at 09:00; Stop 09/01/18 at 13:37; Status DC Sodium Chloride 1,000 ml @ 1,000 mls/hr Q1H PRN IV hypotension; Start 08/30/18 at 11:02; Stop 08/30/18 at 17:01; Status DC Sodium Chloride 1,000 ml @ 400 mls/hr Q2H30M PRN IV PATENCY; Start 08/30/18 at 11:02; Stop 08/30/18 at 23:01; Status DC Info (PHARMACY MONITORING -- do not chart) 1 each PRN DAILY PRN MC SEE COMMENTS; Start 08/30/18 at 11:15; Status UNV Info (PHARMACY MONITORING -- do not chart) 1 each PRN DAILY PRN MC SEE COMMENTS; Start 08/30/18 at 11:15; Status UNV Info (Tpn Per Pharmacy) 1 each PRN DAILY PRN MC SEE COMMENTS Last administered on 09/03/18at 10:53; Start 08/30/18 at 12:45; Stop 09/04/18 at 12:50; Status DC Sodium Chloride 90 meq/Potassium Chloride 50 meq/ Potassium Phosphate 3 mmol/ Magnesium Sulfate 10 meq/Calcium Gluconate 10 meq/ Multivitamins 10 ml/Chromium/ Copper/Manganese/ Seleni/Zn 1 ml/ Total Parenteral Nutrition/Amino Acids/Dextrose/ Fat Emulsion Intravenous 1,512 ml @ 63 mls/hr TPN CONT IV Last administered on 08/30/18at 21:40; Start 08/30/18 at 22:00; Stop 08/31/18 at 21:59; Status DC Ondansetron HCl (Zofran) 4 mg PRN Q6HRS PRN IV NAUSEA/VOMITING; Start 08/31/18 at 08:00 Haloperidol (Haldol) 2 mg PRN QID PRN PO AGITATION; Start 08/31/18 at 08:00; Stop 08/31/18 at 12:43; Status DC Haloperidol Lactate (HALDOL 2mg ORAL CONC) 2 mg PRN QID PRN PO AGITATION; Start 08/31/18 at 12:43 Sodium Chloride 90 meq/Potassium Chloride 50 meq/ Potassium Phosphate 5 mmol/ Magnesium Sulfate 3 meq/Calcium Gluconate 10 meq/ Multivitamins 10 ml/Chromium/ Copper/Manganese/ Seleni/Zn 1 ml/ Total Parenteral Nutrition/Amino Acids/Dextrose 1,512 ml @ 63 mls/hr TPN CONT IV Last administered on 08/31/18at 20:59; Start 08/31/18 at 22:00; Stop 09/01/18 at 21:59; Status DC Propofol 100 ml @ As Directed STK-MED ONCE IV ; Start 08/31/18 at 22:45; Stop 08/31/18 at 22:46; Status DC Succinylcholine Chloride (Anectine) 200 mg STK-MED ONCE .ROUTE ; Start 08/31/18 at 22:46; Stop 08/31/18 at 22:47; Status DC Atropine Sulfate (ATROPINE 1mg SYRINGE) 1 mg STK-MED ONCE .ROUTE ; Start 08/31/18 at 22:58; Stop 08/31/18 at 22:59; Status DC Fentanyl Citrate 30 ml @ 0 mls/hr CONT PRN IV SEE PROTOCOL Last administered on 09/06/18at 10:39; Start 09/01/18 at 00:00; Stop 09/06/18 at 10:59; Status DC Propofol 100 ml @ 0 mls/hr CONT PRN IV SEE PROTOCOL Last administered on 09/06/18at 08:14; Start 09/01/18 at 00:00; Stop 09/06/18 at 10:59; Status DC Chlorhexidine Gluconate (Peridex) 15 ml BID MM Last administered on 09/07/18at 21:21; Start 09/01/18 at 09:00; Stop 09/08/18 at 08:04; Status DC Midazolam HCl 100 ml @ 0 mls/hr CONT PRN IV SEE PROTOCOL; Start 09/01/18 at 00:00 Albuterol/ Ipratropium (Duoneb) 3 ml RTQID NEB Last administered on 09/07/18at 20:26; Start 09/01/18 at 08:00 Albuterol/ Ipratropium (Duoneb) 3 ml 1X ONCE NEB Last administered on 09/01/18 at 01:10; Start 09/01/18 at 01:00; Stop 09/01/18 at 01:01; Status DC Succinylcholine Chloride (Anectine) 200 mg 1X ONCE IV Last administered on 08/31/18at 23:04; Start 09/01/18 at 01:15; Stop 09/01/18 at 01:16; Status DC Sodium Chloride 1,000 ml @ 1,000 mls/hr Q1H PRN IV hypotension; Start 09/01/18 at 07:00; Stop 09/01/18 at 12:59; Status DC Sodium Chloride (Normal Saline Flush) 10 ml 1X PRN PRN IV AP catheter pack; Start 09/01/18 at 07:00; Stop 09/02/18 at 06:59; Status DC Sodium Chloride (Normal Saline Flush) 10 ml 1X PRN PRN IV BILLING ASSOCIATE catheter pack; Start 09/01/18 at 07:00; Stop 09/02/18 at 06:59; Status DC Sodium Chloride 1,000 ml @ 400 mls/hr Q2H30M PRN IV PATENCY; Start 09/01/18 at 07:00; Stop 09/01/18 at 18:59; Status DC Info (PHARMACY MONITORING -- do not chart) 1 each PRN DAILY PRN MC SEE COMMENTS; Start 09/01/18 at 11:00; Status Cancel Info (PHARMACY MONITORING -- do not chart) 1 each PRN DAILY PRN MC SEE COMMENTS; Start 09/01/18 at 11:00; Status Cancel Famotidine (Pepcid Vial) 20 mg Q48H IVP Last administered on 09/07/18at 21:21; Start 09/03/18 at 21:00 Sodium Chloride 90 meq/Potassium Chloride 50 meq/ Potassium Phosphate 10 mmol/ Calcium Gluconate 10 meq/ Multivitamins 10 ml/Chromium/ Copper/Manganese/ Seleni/Zn 1 ml/ Total Parenteral Nutrition/Amino Acids/Dextrose 1,512 ml @ 63 mls/hr TPN CONT IV Last administered on 09/01/18at 22:11; Start 09/01/18 at 22:00; Stop 09/02/18 at 21:59; Status DC Piperacillin Sod/ Tazobactam Sod 2.25 gm/Sodium Chloride 50 ml @ 100 mls/hr Q6HRS IV Last administered on 09/08/18at 06:06; Start 09/01/18 at 14:00 Sodium Chloride 110 meq/Potassium Chloride 50 meq/ Potassium Phosphate 10 mmol/ Calcium Gluconate 10 meq/ Multivitamins 10 ml/Chromium/ Copper/Manganese/ Seleni/Zn 1 ml/ Magnesium Sulfate 3 meq/Total Parenteral Nutrition/Amino Acids/Dextrose 1,512 ml @ 63 mls/hr TPN CONT IV Last administered on 09/02/18at 22:13; Start 09/02/18 at 22:00; Stop 09/03/18 at 21:59; Status DC Darbepoetin Phil (Aranesp) 100 mcg [id number] SQ Last administered on 09/03/18at 22:11; Start 09/03/18 at 21:00 Sodium Chloride 130 meq/Potassium Acetate 20 meq/ Calcium Gluconate 10 meq/ Multivitamins 10 ml/Chromium/ Copper/Manganese/ Seleni/Zn 1 ml/ Magnesium Sulfate 3 meq/Total Parenteral Nutrition/Amino Acids/Dextrose 1,512 ml @ 63 mls/hr TPN CONT IV Last administered on 09/03/18at 22:12; Start 09/03/18 at 22:00; Stop 09/04/18 at 21:59; Status DC Albumin Human 200 ml @ 200 mls/hr 1X PRN PRN IV Hypotension; Start 09/03/18 at 10:00; Stop 09/03/18 at 21:00; Status DC Sodium Chloride (Normal Saline Flush) 10 ml 1X PRN PRN IV AP catheter pack; Start 09/03/18 at 10:00; Stop 09/03/18 at 21:00; Status DC Sodium Chloride (Normal Saline Flush) 10 ml 1X PRN PRN IV BILLING 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 catheter pack; Start 09/03/18 at 10:00; Stop 09/03/18 at 21:00; Status DC Sodium Chloride 1,000 ml @ 400 mls/hr Q2H30M PRN IV PATENCY; Start 09/03/18 at 10:00; Stop 09/03/18 at 21:59; Status DC Info (PHARMACY MONITORING -- do not chart) 1 each PRN DAILY PRN MC SEE COMMENTS; Start 09/03/18 at 18:15; Status UNV Atropine Sulfate (ATROPINE 0.5mg SYRINGE) 0.5 mg STK-MED ONCE .ROUTE ; Start 08/31/18 at 08:06; Stop 09/04/18 at 08:07; Status DC Epinephrine HCl (EPINEPHrine SYRINGE) 3 mg STK-MED ONCE .ROUTE ; Start 08/31/18 at 08:06; Stop 09/04/18 at 08:07; Status DC Sodium Bicarbonate (Sodium Bicarb Adult 8.4% Syr) 100 meq STK-MED ONCE .ROUTE ; Start 08/31/18 at 08:06; Stop 09/04/18 at 08:07; Status DC Levofloxacin/ Dextrose 150 ml @ 100 mls/hr QODAY IV Last administered on 09/06/18at 10:28; Start 09/04/18 at 09:00; Stop 09/07/18 at 07:52; Status DC Sodium Chloride 1,000 ml @ 1,000 mls/hr Q1H PRN IV hypotension; Start 09/04/18 at 08:23; Stop 09/04/18 at 14:24; Status DC Albumin Human 200 ml @ 200 mls/hr 1X PRN PRN IV Hypotension; Start 09/04/18 at 08:30; Stop 09/04/18 at 14:29; Status DC Sodium Chloride 1,000 ml @ 400 mls/hr Q2H30M PRN IV PATENCY; Start 09/04/18 at 08:23; Stop 09/04/18 at 20:22; Status DC Info (PHARMACY MONITORING -- do not chart) 1 each PRN DAILY PRN MC SEE COMMENTS; Start 09/04/18 at 08:30; Stop 09/05/18 at 08:55; Status DC Info (PHARMACY MONITORING -- do not chart) 1 each PRN DAILY PRN MC SEE COMMENTS; Start 09/04/18 at 08:30; Status UNV Linezolid/Dextrose 300 ml @ 300 mls/hr Q12HR IV Last administered on 09/07/18at 21:22; Start 09/05/18 at 09:30 Sodium Chloride 1,000 ml @ 1,000 mls/hr Q1H PRN IV hypotension; Start 09/05/18 at 08:51; Stop 09/05/18 at 14:50; Status DC Sodium Chloride (Normal Saline Flush) 10 ml 1X PRN PRN IV AP catheter pack; Start 09/05/18 at 09:00; Stop 09/06/18 at 08:59; Status DC Sodium Chloride (Normal Saline Flush) 10 ml 1X PRN PRN IV BILLING 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 catheter pack; Start 09/05/18 at 09:00; Stop 09/06/18 at 08:59; Status DC Sodium Chloride 1,000 ml @ 400 mls/hr Q2H30M PRN IV PATENCY; Start 09/05/18 at 08:51; Stop 09/05/18 at 20:50; Status DC Info (PHARMACY MONITORING -- do not chart) 1 each PRN DAILY PRN MC SEE COMMENTS; Start 09/05/18 at 09:00; Stop 09/05/18 at 09:00; Status DC Info (PHARMACY MONITORING -- do not chart) 1 each PRN DAILY PRN MC SEE COMMENTS; Start 09/05/18 at 09:00; Status Cancel Fentanyl Citrate (Fentanyl 2ml Vial) 25 mcg PRN Q2HR PRN IV MODERATE PAIN Last administered on 09/08/18at 04:34; Start 09/06/18 at 11:00 Dexmedetomidine HCl 200 mcg/ Sodium Chloride 50 ml @ 0 mls/hr CONT PRN IV PER PROTOCOL; Start 09/06/18 at 11:00; Stop 09/08/18 at 08:03; Status DC Sodium Chloride 500 ml @ 500 mls/hr 1X PRN PRN IV SEE COMMENTS; Start 09/06/18 at 11:00 Atropine Sulfate (ATROPINE 0.5mg SYRINGE) 0.5 mg PRN Q5MIN PRN IV SEE COMMENTS; Start 09/06/18 at 11:00 Sodium Chloride 1,000 ml @ 1,000 mls/hr Q1H PRN IV hypotension; Start 09/06/18 at 11:52; Stop 09/06/18 at 17:51; Status DC Diphenhydramine HCl (Benadryl) 25 mg 1X PRN PRN IV ITCHING; Start 09/06/18 at 12:00; Stop 09/07/18 at 11:59; Status DC Diphenhydramine HCl (Benadryl) 25 mg 1X PRN PRN IV ITCHING; Start 09/06/18 at 12:00; Stop 09/07/18 at 11:59; Status DC Sodium Chloride 1,000 ml @ 400 mls/hr Q2H30M PRN IV PATENCY; Start 09/06/18 at 11:52; Stop 09/06/18 at 23:51; Status DC Info (PHARMACY MONITORING -- do not chart) 1 each PRN DAILY PRN MC SEE COMMENTS; Start 09/06/18 at 12:00; Stop 09/06/18 at 12:00; Status DC Micafungin Sodium 100 mg/Dextrose 100 ml @ 100 mls/hr Q24H IV Last administered on 09/07/18at 09:12; Start 09/07/18 at 08:30 Sodium Chloride 1,000 ml @ 1,000 mls/hr Q1H PRN IV hypotension; Start 09/07/18 at 16:29; Stop 09/07/18 at 22:28; Status DC Diphenhydramine HCl (Benadryl) 25 mg 1X PRN PRN IV ITCHING; Start 09/07/18 at 16:30; Stop 09/08/18 at 16:29 Diphenhydramine HCl (Benadryl) 25 mg 1X PRN PRN IV ITCHING; Start 09/07/18 at 16:30; Stop 09/08/18 at 16:29 Sodium Chloride 1,000 ml @ 400 mls/hr Q2H30M PRN IV PATENCY; Start 09/07/18 at 16:29; Stop 09/08/18 at 04:28; Status DC Info (PHARMACY MONITORING -- do not chart) 1 each PRN DAILY PRN MC SEE COMME NTS; Start 09/07/18 at 16:30 Active Scripts Active Potassium Chloride 20 Meq Tablet.er 20 Meq PO DAILY Orphenadrine Citrate 100 Mg Tablet.er 100 Mg PO Q12HR Anaprox Ds (Naproxen Sodium) 550 Mg Tablet 550 Mg PO Q12HR Reported Prednisone 20 Mg Tablet 1 Tab PO DAILY Hydrochlorothiazide Tablet (Hydrochlorothiazide) 12.5 Mg Tablet 12.5 Mg PO DAILY Shilpi Allergy (Fexofenadine Hcl) 180 Mg Tablet 1 Tab PO DAILY Vitals/I & O Vital Sign - Last 24 Hours 09/07/18 09/07/18 09/07/18 09/07/18 09:00 09:04 10:00 10:41 Pulse 82 88 Resp 16 22 B/P (MAP) 134/71 (92) 123/66 (85) Pulse Ox 97 98 98 99 O2 Delivery Ventilator Ventilator Ventilator Ventilator 09/07/18 09/07/18 09/07/18 09/07/18 11:00 11:53 12:00 12:25 Pulse 80 80 Resp 20 16 B/P (MAP) 135/69 (91) 144/74 (97) Pulse Ox 97 99 98 O2 Delivery Ventilator Ventilator Ventilator Mechanical Ventilator 09/07/18 09/07/18 09/07/18 09/07/18 13:00 14:00 14:57 15:00 Temp 98.8 98.8 Pulse 80 78 78 Resp 18 20 22 B/P (MAP) 142/76 (98) 131/62 (85) 131/65 (87) Pulse Ox 97 96 99 97 O2 Delivery Ventilator Ventilator Ventilator Ventilator 09/07/18 09/07/18 09/07/18 09/07/18 16:00 16:21 17:00 17:01 Pulse 82 74 Resp 20 16 B/P (MAP) 127/69 (88) 145/76 (99) Pulse Ox 98 98 97 O2 Delivery Ventilator Mechanical Ventilator Ventilator Ventilator 09/07/18 09/07/18 09/07/18 09/07/18 18:00 19:00 20:00 20:00 Temp 99.2 98.6 99.2 98.6 Pulse 66 65 73 Resp 22 20 20 B/P (MAP) 157/90 (112) 122/64 (83) 142/73 (96) Pulse Ox 97 98 98 O2 Delivery Ventilator Ventilator Ventilator Mechanical Ventilator 09/07/18 09/07/18 09/07/18 09/07/18 20:23 21:00 22:00 23:35 Pulse 87 98 Resp 20 20 B/P (MAP) 129/67 (87) 135/65 (88) Pulse Ox 99 98 100 99 O2 Delivery Ventilator Ventilator Ventilator Ventilator 09/07/18 09/07/18 09/08/18 09/08/18 23:59 23:59 00:07 01:00 Pulse 71 78 Resp 20 16 20 B/P (MAP) 135/86 (102) 145/60 (88) Pulse Ox 98 100 100 O2 Delivery Mechanical Ventilator Ventilator Ventilator O2 Flow Rate 15.0 09/08/18 09/08/18 09/08/18 09/08/18 01:36 02:00 02:15 03:09 Pulse 78 76 Resp 20 18 17 B/P (MAP) 169/60 (96) 147/72 (97) Pulse Ox 99 100 99 O2 Delivery Ventilator Ventilator Ventilator 09/08/18 09/08/18 09/08/18 09/08/18 03:42 04:00 04:00 04:34 Temp 98.1 98.1 Pulse 80 Resp 17 16 B/P (MAP) 142/75 (97) Pulse Ox 99 99 99 O2 Delivery Ventilator Mechanical Ventilator Ventilator O2 Flow Rate 15.0 09/08/18 09/08/18 09/08/18 09/08/18 05:00 05:29 05:44 06:06 Pulse 77 71 Resp 17 18 B/P (MAP) 106/60 (75) 136/69 (91) Pulse Ox 100 100 99 100 O2 Delivery Ventilator Ventilator Ventilator O2 Flow Rate 15.0 Intake and Output 09/07/18 09/07/18 09/08/18 15:00 23:00 07:00 Intake Total 350 ml 1656 ml 1730 ml Output Total 10 ml 800 ml Balance 340 ml 856 ml 1730 ml RIFFEVIJAY Bingham MD Sep 08, 2018 08:30
--- NOTE | 2018-09-08 08:42 | RAD ---
EXAM: CHEST 1 VIEW History: On ventilation COMPARISON: 09/07/2018 TECHNIQUE: Single portable radiograph of the chest FINDINGS: ET tube is identified in the trachea just above the clavicles. The feeding tube is unchanged. Interval removal of central line. Minimal prominent bilateral interstitial lung markings likely minimal congestive changes. Impression: 1. Minimal congestive changes. Electronically signed by: Peter Champion MD (09/08/2018 8:40 AM) [facility]
[2018-09-08 09:08] LABS: BASE EXCESS ABG 0 mmol/L (-3-3); HCO3 ABG 24 mmol/L (21-28); PCO2 ABG 35 mmHg (35-46); PO2 ABG 117 mmHg (75-108); SAT O2 ABG 97 % (92-99)
[2018-09-08 09:12] LABS: BASO % 1 % (0-3); EOS # 0.1 x10^3/uL (0.0-0.7); EOS % 2 % (0-3); LYMPH % 32 % (24-48); MEAN CORPUSCULAR HEMOGLOBIN 29 pg (25-35); MEAN CORPUSCULAR HGB CONC 34 g/dL (31-37); MEAN CORPUSCULAR VOLUME 86 fL (79-100); MONO % 15 % (0-9); NEUT # 3.3 x10^3uL (1.8-7.7); NEUT % 51 % (31-73); PLATELET COUNT 288 x10^3/uL (140-400); RED BLOOD COUNT 2.26 x10^6/uL (4.30-5.70); RED CELL DISTRIBUTION WIDTH 18.4 % (11.5-14.5); WHITE BLOOD COUNT 6.5 x10^3/uL (4.0-11.0)
--- NOTE | 2018-09-08 09:17 | PDOC ---
Infectious Disease Note Subjective Subjective Orally intubated, FiO2 35% Tube feedings 35 ml/hr + diarrhea No fevers last 24 hours ROS ROS unobtainable Vital Sign Vital Signs Vital Signs Date Time Temp Pulse Resp B/P (MAP) Pulse Ox O2 Delivery O2 Flow Rate FiO2 09/08/18 08:15 100 Ventilator 09/08/18 06:06 71 18 136/69 (91) 09/08/18 05:29 15.0 09/08/18 04:00 98.1 98.1 Physical Exam PHYSICAL EXAM GENERAL: Awake, orally intubated, mitts HEENT: Pupils equal, ETT, OGT NECK: Supple. LUNGS: Clear anteriorly HEART: S1 and S2. regular ABDOMEN: + distention, soft, no guarding, bowel sounds present. Rectal tube in place : Waters in place EXTREMITIES: no edema,no cyanosis. SKIN: Warm NEUROLOGIC: Awake, tracks PIV Labs Lab Laboratory Tests Test 09/08/18 06:15 White Blood Count 6.5 x10^3/uL (4.0-11.0) Red Blood Count 2.25 x10^6/uL (4.30-5.70) Hemoglobin 6.5 g/dL (13.0-17.5) Hematocrit 19.3 % (39.0-53.0) Mean Corpuscular Volume 86 fL (79-100) Mean Corpuscular Hemoglobin 29 pg (25-35) Mean Corpuscular Hemoglobin Concent 34 g/dL (31-37) Red Cell Distribution Width 19.1 % (11.5-14.5) Platelet Count 287 x10^3/uL (140-400) Sodium Level 137 mmol/L (136-145) Potassium Level 4.3 mmol/L (3.5-5.1) Chloride Level 97 mmol/L (98-107) Carbon Dioxide Level 24 mmol/L (21-32) Anion Gap 16 (6-14) Blood Urea Nitrogen 64 mg/dL (8-26) Creatinine 5.9 mg/dL (0.7-1.3) Estimated GFR (Cockcroft-Gault) 10.1 BUN/Creatinine Ratio 11 (6-20) Glucose Level 116 mg/dL (70-99) Calcium Level 7.1 mg/dL (8.5-10.1) Total Bilirubin 0.9 mg/dL (0.2-1.0) Aspartate Amino Transf (AST/SGOT) 42 U/L (15-37) Alanine Aminotransferase (ALT/SGPT) 30 U/L (16-63) Alkaline Phosphatase 121 U/L (46-116) Total Protein 6.4 g/dL (6.4-8.2) Albumin 2.0 g/dL (3.4-5.0) Albumin/Globulin Ratio 0.5 (1.0-1.7) Micro 09/04. BLOOD CULTURE Final YEAST IN 1 OF 2 BOTTLES OF A SINGLE SET DRAWN ON 09/04/18. CALLED TO KASIA VALDES IN ICU 09/07/18 AT 0815 BY Felton MEZA. CULTURE HAS BEEN SENT TO [facility] FOR FURTHER IDENTIFICATION. Objective Assessment Fungemia from 09/04. ID/LOTUS pending -Lines have been removed Recurrent fever, 09/04, better Diarrhea, C. 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 MRI neg -CSF pleocytosis, cultures and serologies negative -[place] IgG +, IgM neg, old exposure -HSV PCR neg - Arboviral panel not available -Enteroviral pcr not available RADHA (Recent Bactrim/ibuprofen), on HD Anemia Hemochromatosis, followed by [facility] Plan Plan of Care Zyvox, Zosyn and micafungin Repeat BC 09/08 in process Monitor labs/temp Supportive care HD catheter replacement on Monday D/w D/w nursing Critically ill Extubated and responding to questions and follows simple commands Attending Co-Sign Attending Co-Sign The patient was seen and interviewed as well as examined at the bedside. The chart was reviewed. The case was discussed. Agree with the plan of care. KISHA OLIVAS APRN Sep 08, 2018 09:17 LICO GRACE MD Sep 08, 2018 15:00
[2018-09-08] MEDS: MICAFUNGIN 100 MG in IV DEXTROSE 5% 100ML 100 ML IV SCH (09:33)
[2018-09-08] MEDS: LACTOBACILLUS RHAMNOSUS GG 1 CAPSULE. PO SCH (09:34)
[2018-09-08 10:16] LABS: HEMOGLOBIN 6.5 g/dL (13.0-17.5)
[2018-09-08 10:17] LABS: HEMATOCRIT 19.4 % (39.0-53.0)
[2018-09-08 10:56] LABS: FIO2 ABG 35
[2018-09-08 11:07] LABS: BASE EXCESS ABG 0 mmol/L (-3-3); HCO3 ABG 24 mmol/L (21-28); PCO2 ABG 36 mmHg (35-46); PO2 ABG 120 mmHg (75-108); SAT O2 ABG 97 % (92-99)
--- NOTE | 2018-09-08 11:26 | PDOC ---
PULMONARY PROGRESS NOTES Subjective intubated 08/31, FULLY RESPONSIVE Vitals Vital Signs Date Time Temp Pulse Resp B/P (MAP) Pulse Ox O2 Delivery O2 Flow Rate FiO2 09/08/18 10:00 84 18 124/66 (85) 99 Ventilator 09/08/18 08:00 98.6 98.6 09/08/18 05:29 15.0 General: Alert, No acute distress Lungs: Clear Cardiovascular: S1, S2 Abdomen: Soft, Non-tender, Other (no mass) Extremities: Other (1+edema) Skin: Warm Labs Laboratory Tests Test 09/07/18 06:05 09/07/18 07:35 09/08/18 06:15 09/08/18 07:25 Sodium Level 138 mmol/L (136-145) 137 mmol/L (136-145) Potassium Level 4.3 mmol/L (3.5-5.1) 4.3 mmol/L (3.5-5.1) Chloride Level 97 mmol/L (98-107) 97 mmol/L (98-107) Carbon Dioxide Level 22 mmol/L (21-32) 24 mmol/L (21-32) Anion Gap 19 (6-14) 16 (6-14) Blood Urea Nitrogen 79 mg/dL (8-26) 64 mg/dL (8-26) Creatinine 7.1 mg/dL (0.7-1.3) 5.9 mg/dL (0.7-1.3) Estimated GFR (Cockcroft-Gault) 8.1 10.1 Glucose Level 128 mg/dL (70-99) 116 mg/dL (70-99) Calcium Level 7.0 mg/dL (8.5-10.1) 7.1 mg/dL (8.5-10.1) Phosphorus Level 8.7 mg/dL (2.6-4.7) Magnesium Level 2.3 mg/dL (1.8-2.4) O2 Saturation 98 % (92-99) 97 % (92-99) Arterial Blood pH 7.43 (7.35-7.45) 7.45 (7.35-7.45) Arterial Blood pCO2 at Patient Temp 33 mmHg (35-46) 35 mmHg (35-46) Arterial Blood pO2 at Patient Temp 124 mmHg (75-108) 117 mmHg (75-108) Arterial Blood HCO3 22 mmol/L (21-28) 24 mmol/L (21-28) Arterial Blood Base Excess -2 mmol/L (-3-3) 0 mmol/L (-3-3) FiO2 35% 35 White Blood Count 6.5 x10^3/uL (4.0-11.0) Red Blood Count 2.25 x10^6/uL (4.30-5.70) Hemoglobin 6.5 g/dL (13.0-17.5) Hematocrit 19.3 % (39.0-53.0) Mean Corpuscular Volume 86 fL (79-100) Mean Corpuscular Hemoglobin 29 pg (25-35) Mean Corpuscular Hemoglobin Concent 34 g/dL (31-37) Red Cell Distribution Width 19.1 % (11.5-14.5) Platelet Count 287 x10^3/uL (140-400) Neutrophils (%) (Auto) 51 % (31-73) Lymphocytes (%) (Auto) 32 % (24-48) Monocytes (%) (Auto) 15 % (0-9) Eosinophils (%) (Auto) 2 % (0-3) Basophils (%) (Auto) 1 % (0-3) Neutrophils # (Auto) 3.3 x10^3uL (1.8-7.7) Lymphocytes # (Auto) 2.0 x10^3/uL (1.0-4.8) Monocytes # (Auto) 1.0 x10^3/uL (0.0-1.1) Eosinophils # (Auto) 0.1 x10^3/uL (0.0-0.7) Basophils # (Auto) 0.0 x10^3/uL (0.0-0.2) BUN/Creatinine Ratio 11 (6-20) Total Bilirubin 0.9 mg/dL (0.2-1.0) Aspartate Amino Transf (AST/SGOT) 42 U/L (15-37) Alanine Aminotransferase (ALT/SGPT) 30 U/L (16-63) Alkaline Phosphatase 121 U/L (46-116) Total Protein 6.4 g/dL (6.4-8.2) Albumin 2.0 g/dL (3.4-5.0) Albumin/Globulin Ratio 0.5 (1.0-1.7) Laboratory Tests Test 09/08/18 06:15 09/08/18 07:25 White Blood Count 6.5 x10^3/uL (4.0-11.0) Red Blood Count 2.25 x10^6/uL (4.30-5.70) Hemoglobin 6.5 g/dL (13.0-17.5) Hematocrit 19.3 % (39.0-53.0) Mean Corpuscular Volume 86 fL (79-100) Mean Corpuscular Hemoglobin 29 pg (25-35) Mean Corpuscular Hemoglobin Concent 34 g/dL (31-37) Red Cell Distribution Width 19.1 % (11.5-14.5) Platelet Count 287 x10^3/uL (140-400) Neutrophils (%) (Auto) 51 % (31-73) Lymphocytes (%) (Auto) 32 % (24-48) Monocytes (%) (Auto) 15 % (0-9) Eosinophils (%) (Auto) 2 % (0-3) Basophils (%) (Auto) 1 % (0-3) Neutrophils # (Auto) 3.3 x10^3uL (1.8-7.7) Lymphocytes # (Auto) 2.0 x10^3/uL (1.0-4.8) Monocytes # (Auto) 1.0 x10^3/uL (0.0-1.1) Eosinophils # (Auto) 0.1 x10^3/uL (0.0-0.7) Basophils # (Auto) 0.0 x10^3/uL (0.0-0.2) Sodium Level 137 mmol/L (136-145) Potassium Level 4.3 mmol/L (3.5-5.1) Chloride Level 97 mmol/L (98-107) Carbon Dioxide Level 24 mmol/L (21-32) Anion Gap 16 (6-14) Blood Urea Nitrogen 64 mg/dL (8-26) Creatinine 5.9 mg/dL (0.7-1.3) Estimated GFR (Cockcroft-Gault) 10.1 BUN/Creatinine Ratio 11 (6-20) Glucose Level 116 mg/dL (70-99) Calcium Level 7.1 mg/dL (8.5-10.1) Total Bilirubin 0.9 mg/dL (0.2-1.0) Aspartate Amino Transf (AST/SGOT) 42 U/L (15-37) Alanine Aminotransferase (ALT/SGPT) 30 U/L (16-63) Alkaline Phosphatase 121 U/L (46-116) Total Protein 6.4 g/dL (6.4-8.2) Albumin 2.0 g/dL (3.4-5.0) Albumin/Globulin Ratio 0.5 (1.0-1.7) O2 Saturation 97 % (92-99) Arterial Blood pH 7.45 (7.35-7.45) Arterial Blood pCO2 at Patient Temp 35 mmHg (35-46) Arterial Blood pO2 at Patient Temp 117 mmHg (75-108) Arterial Blood HCO3 24 mmol/L (21-28) Arterial Blood Base Excess 0 mmol/L (-3-3) FiO2 35 Medications Active Scripts Medications Dose Route/Sig Max Daily Dose Days Date Category Prednisone 20 Mg Tablet 1 Tab PO DAILY 08/26/18 Reported Hydrochlorothiazide Tablet (Hydrochlorothiazide) 12.5 Mg Tablet 12.5 Mg PO DAILY 08/26/18 Reported Shilpi Allergy (Fexofenadine Hcl) 180 Mg Tablet 1 Tab PO DAILY 08/26/18 Reported Potassium Chloride 20 Meq Tablet.er 20 Meq PO DAILY 08/24/18 Rx Orphenadrine Citrate 100 Mg Tablet.er 100 Mg PO Q12HR 02/03/16 Rx Anaprox Ds (Naproxen Sodium) 550 Mg Tablet 550 Mg PO Q12HR 02/03/16 Rx Comments CXR REVIEWED 09/07 SMALL/ ATELECTASIS/ EFFUSION LEFT/ IMPROVED Impression . IMPRESSION: 1. 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 2. 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 Fever. RESOLVED 4. Lactic acidosis. 5. Acute renal failure. 6. Acute hepatic injury. 7. Thrombocytopenia, improving. 8. Hemochromatosis. 9. ACUTE TOXIC MET ENCEPH POA 10 DYSPHAGIA 11.ENCEPHALITIS 12. FUNGEMIA 13. ANEMIA Plan . DOING MUCH BETTER ABG ON CPAP TRILA EXCELLENT WILL PROCEED WITH EXTUBATION CONSIDER TX PER HEMATOLOGY ANTIBX PER ID NUTRION PER PCP fu sputum cx , yeast, likely contaminant D/W RN, ANIT-FUNGAL PER ID LINES DC'D D/W DYANA BERRY MD Sep 08, 2018 11:26
[2018-09-08 13:14] LABS: FIO2 ABG 40
--- NOTE | 2018-09-08 14:39 | PDOC ---
SUBJECTIVE ROS Extubated + diarrhea OBJECTIVE Vital Signs Vital Signs Date Time Temp Pulse Resp B/P (MAP) Pulse Ox O2 Delivery O2 Flow Rate FiO2 09/08/18 12:45 96 Nasal Cannula 4.0 09/08/18 10:00 84 18 124/66 (85) 09/08/18 08:00 98.6 98.6 I & 0 Intake and Output 09/08/18 06:59 Intake Total 3736 ml Output Total 810 ml Balance 2926 ml IV Total 450 ml Tube Feeding 2986 ml Blood Product IV Normal Saline Flush 300 ml Output Urine Total 10 ml Stool Total 800 ml # Voids 49 # Bowel Movements 2 PHYSICAL EXAM Physical Exam GENERAL: Awake, On o2, NAD HEENT: On O2 by NC NECK: Supple. LUNGS: Clear anteriorly HEART: S1 and S2. regular ABDOMEN: soft, Rectal tube in place : Waters in place EXTREMITIES: no edema SKIN: Warm NEUROLOGIC: Awake, DIAGNOSIS/ASSESSMENT Assessment & Plan RADHA/ATN- Requiring HD No renal recovery Last HD 09/07 , Currently labs stable, No emergent indication for HD today Dialysis cath removed, Eval renal function daily, will need new HD cath on Monday Fungemia from 09/04. ID following Diarrhea, C. 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 -w/u negative for ehrlichia -RMSF neg, Encephalopathy waxing and waning etiology unclear MRI neg Anemia Hemochromatosis, followed by [facility] COMMENT/RELEVANT DATA Meds Current Medications Medications (Trade) Dose Ordered Sig/Noemi Start Time Stop Time Status Last Admin Dose Admin Acetaminophen (Tylenol Supp) 650 mg PRN Q6HRS PRN 08/27/18 21:15 09/02/18 01:18 650 MG Acetaminophen (Tylenol) 650 mg PRN Q6HRS PRN 08/27/18 21:15 Acyclovir Sodium 340 mg/Dextrose 106.8 ml @ 106.8 mls/ hr Q12HR 08/30/18 09:00 09/01/18 13:37 DC 09/01/18 11:05 106.8 MLS/HR Albumin Human 200 ml @ 200 mls/hr 1X PRN PRN 09/04/18 08:30 09/04/18 14:29 DC Albuterol/ Ipratropium (Duoneb) 3 ml 1X ONCE 09/01/18 01:00 09/01/18 01:01 DC 09/01/18 01:10 3 ML Atropine Sulfate (ATROPINE 0.5mg SYRINGE) 0.5 mg PRN Q5MIN PRN 09/06/18 11:00 Atropine Sulfate (ATROPINE 1mg SYRINGE) 1 mg STK-MED ONCE 08/31/18 22:58 08/31/18 22:59 DC Aztreonam (Azactam) 2 gm 1X ONCE 08/25/18 21:15 08/25/18 21:16 DC 08/25/18 21:15 2 GM Benzocaine (Hurricaine One) 1 spray 1X STAT 08/28/18 10:16 08/28/18 10:19 DC 08/28/18 10:16 1 SPRAY Ceftriaxone Sodium (Rocephin) 1 gm 1X ONCE 08/25/18 20:30 08/25/18 20:31 DC 08/25/18 20:36 1 GM Chlorhexidine Gluconate (Peridex) 15 ml BID 09/01/18 09:00 09/08/18 08:04 DC 09/07/18 21:21 15 ML Daptomycin 610 mg/ Sodium Chloride 50 ml @ 100 mls/hr Q48H 08/30/18 16:00 08/30/18 16:00 DC Darbepoetin Phil (Aranesp) 100 mcg WEEKLYHS 09/03/18 21:00 09/03/18 22:11 100 MCG Dexmedetomidine HCl 200 mcg/ Sodium Chloride 50 ml @ 0 mls/hr CONT PRN 09/06/18 11:00 09/08/18 08:03 DC Diphenhydramine HCl (Benadryl) 25 mg 1X PRN PRN 09/07/18 16:30 09/08/18 16:29 Doxycycline Hyclate 100 mg/ Dextrose 100 ml @ 50 mls/hr Q12HR 08/26/18 09:00 09/04/18 08:11 DC 09/03/18 22:11 50 MLS/HR Epinephrine HCl (EPINEPHrine SYRINGE) 3 mg STK-MED ONCE 08/31/18 08:06 09/04/18 08:07 DC Famotidine (Pepcid Vial) 20 mg Q48H 09/03/18 21:00 09/07/18 21:21 20 MG Famotidine (Pepcid) 20 mg Q48H 08/29/18 09:00 08/29/18 11:29 DC Fentanyl Citrate (Fentanyl 2ml Vial) 25 mcg PRN Q2HR PRN 09/06/18 11:00 09/08/18 04:34 25 MCG Haloperidol (Haldol) 2 mg PRN QID PRN 08/31/18 08:00 08/31/18 12:43 DC Haloperidol Lactate (HALDOL 2mg ORAL CONC) 2 mg PRN QID PRN 08/31/18 12:43 Haloperidol Lactate (Haldol Inj) 5 mg PRN Q6HRS PRN 08/28/18 12:00 09/06/18 05:53 5 MG Heparin Sodium (Porcine) (Heparin Sodium) 10,000 unit STK-MED ONCE 08/26/18 12:49 08/26/18 12:50 DC Ibuprofen (Motrin) 600 mg 1X ONCE 08/25/18 19:45 08/25/18 19:49 DC 08/25/18 20:38 600 MG Info (PHARMACY MONITORING -- do not chart) 1 each PRN DAILY PRN 09/07/18 16:30 Info (Tpn Per Pharmacy) 1 each PRN DAILY PRN 08/30/18 12:45 09/04/18 12:50 DC 09/03/18 10:53 1 EACH Lactobacillus Rhamnosus (Culturelle) 1 cap BID 08/26/18 21:00 09/08/18 10:55 DC 09/08/18 09:34 1 CAP Levofloxacin/ Dextrose 150 ml @ 100 mls/hr QODAY 09/04/18 09:00 09/07/18 07:52 DC 09/06/18 10:28 100 MLS/HR Lidocaine HCl (Glydo (Lidocaine) Jelly) 1 meng 1X STAT 08/28/18 10:16 08/28/18 10:19 DC 08/28/18 10:16 1 MENG Lidocaine/Sodium Bicarbonate (Buffered Lidocaine 1%) 3 ml 1X ONCE 08/28/18 10:30 08/28/18 10:31 DC Linezolid/Dextrose 300 ml @ 300 mls/hr Q12HR 09/05/18 09:30 09/08/18 09:34 300 MLS/HR Magnesium Sulfate 50 ml @ 25 mls/hr 1X ONCE 08/25/18 21:15 08/25/18 23:14 DC 08/25/18 23:51 25 MLS/HR Meropenem 500 mg/ Sodium Chloride 50 ml @ 100 mls/hr DAILY 08/26/18 09:00 08/30/18 08:17 DC 08/29/18 10:13 100 MLS/HR Micafungin Sodium 100 mg/Dextrose 100 ml @ 100 mls/hr Q24H 09/07/18 08:30 09/08/18 09:33 100 MLS/HR Midazolam HCl 100 ml @ 0 mls/hr CONT PRN 09/01/18 00:00 09/08/18 11:30 DC Norepinephrine Bitartrate 250 ml @ 0 mls/hr CONT PRN 08/26/18 09:15 08/30/18 17:20 DC 08/27/18 10:21 1.88 MLS/HR Ondansetron HCl (Zofran) 4 mg PRN Q6HRS PRN 08/31/18 08:00 Piperacillin Sod/ Tazobactam Sod 2.25 gm/Sodium Chloride 50 ml @ 100 mls/hr Q6HRS 09/01/18 14:00 09/08/18 13:33 100 MLS/HR Piperacillin Sod/ Tazobactam Sod 4.5 gm/Sodium Chloride 100 ml @ 200 mls/hr 1X ONCE 08/25/18 21:15 08/25/18 21:44 DC Propofol 100 ml @ 0 mls/hr CONT PRN 09/01/18 00:00 09/06/18 10:59 DC 09/06/18 08:14 6.135 MLS/HR Sodium Bicarbonate (Sodium Bicarb Adult 8.4% Syr) 100 meq STK-MED ONCE 08/31/18 08:06 09/04/18 08:07 DC Sodium Chloride 1,000 ml @ 400 mls/hr Q2H30M PRN 09/07/18 16:29 09/08/18 04:28 DC Sodium Chloride (Normal Saline Flush) 10 ml 1X PRN PRN 09/05/18 09:00 09/06/18 08:59 DC Sodium Chloride 90 meq/Potassium Chloride 50 meq/ Potassium Phosphate 10 mmol/ Calcium Gluconate 10 meq/ Multivitamins 10 ml/Chromium/ Copper/Manganese/ Seleni/Zn 1 ml/ Total Parenteral Nutrition/Amino Acids/Dextrose 1,512 ml @ 63 mls/hr TPN CONT 09/01/18 22:00 09/02/18 21:59 DC 09/01/18 22:11 63 MLS/HR Sodium Chloride 90 meq/Potassium Chloride 50 meq/ Potassium Phosphate 3 mmol/ Magnesium Sulfate 10 meq/Calcium Gluconate 10 meq/ Multivitamins 10 ml/Chromium/ Copper/Manganese/ Seleni/Zn 1 ml/ Total Parenteral Nutrition/Amino Acids/Dextrose/ Fat Emulsion Intravenous 1,512 ml @ 63 mls/hr TPN CONT 08/30/18 22:00 08/31/18 21:59 DC 08/30/18 21:40 63 MLS/HR Sodium Chloride 90 meq/Potassium Chloride 50 meq/ Potassium Phosphate 5 mmol/ Magnesium Sulfate 3 meq/Calcium Gluconate 10 meq/ Multivitamins 10 ml/Chromium/ Copper/Manganese/ Seleni/Zn 1 ml/ Total Parenteral Nutrition/Amino Acids/Dextrose 1,512 ml @ 63 mls/hr TPN CONT 08/31/18 22:00 09/01/18 21:59 DC 08/31/18 20:59 63 MLS/HR Sodium Chloride 110 meq/Potassium Chloride 50 meq/ Potassium Phosphate 10 mmol/ Calcium Gluconate 10 meq/ Multivitamins 10 ml/Chromium/ Copper/Manganese/ Seleni/Zn 1 ml/ Magnesium Sulfate 3 meq/Total Parenteral Nutrition/Amino Acids/Dextrose 1,512 ml @ 63 mls/hr TPN CONT 09/02/18 22:00 09/03/18 21:59 DC 09/02/18 22:13 63 MLS/HR Sodium Chloride 130 meq/Potassium Acetate 20 meq/ Calcium Gluconate 10 meq/ Multivitamins 10 ml/Chromium/ Copper/Manganese/ Seleni/Zn 1 ml/ Magnesium Sulfate 3 meq/Total Parenteral Nutrition/Amino Acids/Dextrose 1,512 ml @ 63 mls/hr TPN CONT 09/03/18 22:00 09/04/18 21:59 DC 09/03/18 22:12 63 MLS/HR Succinylcholine Chloride (Anectine) 200 mg 1X ONCE 09/01/18 01:15 09/01/18 01:16 DC 08/31/18 23:04 200 MG Vancomycin HCl 2 gm/Sodium Chloride 500 ml @ 250 mls/hr 1X ONCE 08/25/18 21:30 08/25/18 23:29 DC 08/25/18 23:10 250 MLS/HR Lab Laboratory Tests Test 09/08/18 06:15 09/08/18 07:25 09/08/18 10:54 White Blood Count 6.5 x10^3/uL (4.0-11.0) Red Blood Count 2.25 x10^6/uL (4.30-5.70) Hemoglobin 6.5 g/dL (13.0-17.5) Hematocrit 19.3 % (39.0-53.0) Mean Corpuscular Volume 86 fL (79-100) Mean Corpuscular Hemoglobin 29 pg (25-35) Mean Corpuscular Hemoglobin Concent 34 g/dL (31-37) Red Cell Distribution Width 19.1 % (11.5-14.5) Platelet Count 287 x10^3/uL (140-400) Neutrophils (%) (Auto) 51 % (31-73) Lymphocytes (%) (Auto) 32 % (24-48) Monocytes (%) (Auto) 15 % (0-9) Eosinophils (%) (Auto) 2 % (0-3) Basophils (%) (Auto) 1 % (0-3) Neutrophils # (Auto) 3.3 x10^3uL (1.8-7.7) Lymphocytes # (Auto) 2.0 x10^3/uL (1.0-4.8) Monocytes # (Auto) 1.0 x10^3/uL (0.0-1.1) Eosinophils # (Auto) 0.1 x10^3/uL (0.0-0.7) Basophils # (Auto) 0.0 x10^3/uL (0.0-0.2) Sodium Level 137 mmol/L (136-145) Potassium Level 4.3 mmol/L (3.5-5.1) Chloride Level 97 mmol/L (98-107) Carbon Dioxide Level 24 mmol/L (21-32) Anion Gap 16 (6-14) Blood Urea Nitrogen 64 mg/dL (8-26) Creatinine 5.9 mg/dL (0.7-1.3) Estimated GFR (Cockcroft-Gault) 10.1 BUN/Creatinine Ratio 11 (6-20) Glucose Level 116 mg/dL (70-99) Calcium Level 7.1 mg/dL (8.5-10.1) Total Bilirubin 0.9 mg/dL (0.2-1.0) Aspartate Amino Transf (AST/SGOT) 42 U/L (15-37) Alanine Aminotransferase (ALT/SGPT) 30 U/L (16-63) Alkaline Phosphatase 121 U/L (46-116) Total Protein 6.4 g/dL (6.4-8.2) Albumin 2.0 g/dL (3.4-5.0) Albumin/Globulin Ratio 0.5 (1.0-1.7) O2 Saturation 97 % (92-99) 97 % (92-99) Arterial Blood pH 7.45 (7.35-7.45) 7.44 (7.35-7.45) Arterial Blood pCO2 at Patient Temp 35 mmHg (35-46) 36 mmHg (35-46) Arterial Blood pO2 at Patient Temp 117 mmHg (75-108) 120 mmHg (75-108) Arterial Blood HCO3 24 mmol/L (21-28) 24 mmol/L (21-28) Arterial Blood Base Excess 0 mmol/L (-3-3) 0 mmol/L (-3-3) FiO2 35 40 Results All relevant outside records, renal labs, imaging studies, telemetry/EKG's were reviewed. Other CxR-- 1. Minimal congestive changes. OG CHAVES MD Sep 08, 2018 14:39
--- NOTE | 2018-09-08 16:03 | PDOC ---
PROGRESS NOTES Subjective Subjective HPI - f/u of Thrombocytopenia ROS - extubated 09/08/18, no bleed Objective Objective Vital Signs Date Time Temp Pulse Resp B/P (MAP) Pulse Ox O2 Delivery O2 Flow Rate FiO2 09/08/18 12:45 96 Nasal Cannula 4.0 09/08/18 10:00 84 18 124/66 (85) 09/08/18 08:00 98.6 98.6 Intake and Output 09/08/18 07:00 Intake Total 3786 ml Output Total 810 ml Balance 2976 ml IV Total 500 ml Tube Feeding 2986 ml Blood Product IV Normal Saline Flush 300 ml Output Urine Total 10 ml Stool Total 800 ml # Voids 49 # Bowel Movements 2 Physical Exam Heart: Normal S1, Normal S2 General: Alert, No acute distress Lungs: Clear to auscultation Assessment Assessment Problems Medical Problems: (1) Acute renal failure Status: Acute Assessment/Plan 52 yo male presents with week long history of fever and found to have thrombocytopenia, ARF, elevated LFTs 1. Septic shock - Fever - Tick borne illness suspected. Per ID. 2. Dehydration 3. Acute renal failure. Cr 7.1, management per nephro. 4. Elevated LFTs 5. Thrombocytopenia due to sepsis, no clinical evidence of TTP, no evidence of schistocytes, normal retic and haptoglobin and Hb. He should be transfused plts if his plt count <10 or he develops active bleeding. Plt better at 30 on 08/27/18. Plt better at 47 on 08/28/18, Plt better at 58 on 08/29/18 Plt better at 67 on 08/30/18. Plt better at 73 on 08/31/18 Plt better at 139 on 09/04/18, Plt normal at 175, Monitor cbc. Plt normal at 287 on 09/08/18 No bleeding 6. Anemia, worse. I d/w Dr Meadows who deferred PRBC due to concerns about risk for fluid overload. I agree. I agree to transfuse with next hemodialysis as he is not symptomatic. 6. Resp failure, on vent, management per pulm. Comment Review of Relevant I have reviewed the following items gera (where applicable) has been applied. Labs Laboratory Tests Test 09/07/18 06:05 09/07/18 07:35 09/08/18 06:15 09/08/18 07:25 Sodium Level 138 mmol/L (136-145) 137 mmol/L (136-145) Potassium Level 4.3 mmol/L (3.5-5.1) 4.3 mmol/L (3.5-5.1) Chloride Level 97 mmol/L (98-107) 97 mmol/L (98-107) Carbon Dioxide Level 22 mmol/L (21-32) 24 mmol/L (21-32) Anion Gap 19 (6-14) 16 (6-14) Blood Urea Nitrogen 79 mg/dL (8-26) 64 mg/dL (8-26) Creatinine 7.1 mg/dL (0.7-1.3) 5.9 mg/dL (0.7-1.3) Estimated GFR (Cockcroft-Gault) 8.1 10.1 Glucose Level 128 mg/dL (70-99) 116 mg/dL (70-99) Calcium Level 7.0 mg/dL (8.5-10.1) 7.1 mg/dL (8.5-10.1) Phosphorus Level 8.7 mg/dL (2.6-4.7) Magnesium Level 2.3 mg/dL (1.8-2.4) O2 Saturation 98 % (92-99) 97 % (92-99) Arterial Blood pH 7.43 (7.35-7.45) 7.45 (7.35-7.45) Arterial Blood pCO2 at Patient Temp 33 mmHg (35-46) 35 mmHg (35-46) Arterial Blood pO2 at Patient Temp 124 mmHg (75-108) 117 mmHg (75-108) Arterial Blood HCO3 22 mmol/L (21-28) 24 mmol/L (21-28) Arterial Blood Base Excess -2 mmol/L (-3-3) 0 mmol/L (-3-3) FiO2 35% 35 White Blood Count 6.5 x10^3/uL (4.0-11.0) Red Blood Count 2.25 x10^6/uL (4.30-5.70) Hemoglobin 6.5 g/dL (13.0-17.5) Hematocrit 19.3 % (39.0-53.0) Mean Corpuscular Volume 86 fL (79-100) Mean Corpuscular Hemoglobin 29 pg (25-35) Mean Corpuscular Hemoglobin Concent 34 g/dL (31-37) Red Cell Distribution Width 19.1 % (11.5-14.5) Platelet Count 287 x10^3/uL (140-400) Neutrophils (%) (Auto) 51 % (31-73) Lymphocytes (%) (Auto) 32 % (24-48) Monocytes (%) (Auto) 15 % (0-9) Eosinophils (%) (Auto) 2 % (0-3) Basophils (%) (Auto) 1 % (0-3) Neutrophils # (Auto) 3.3 x10^3uL (1.8-7.7) Lymphocytes # (Auto) 2.0 x10^3/uL (1.0-4.8) Monocytes # (Auto) 1.0 x10^3/uL (0.0-1.1) Eosinophils # (Auto) 0.1 x10^3/uL (0.0-0.7) Basophils # (Auto) 0.0 x10^3/uL (0.0-0.2) BUN/Creatinine Ratio 11 (6-20) Total Bilirubin 0.9 mg/dL (0.2-1.0) Aspartate Amino Transf (AST/SGOT) 42 U/L (15-37) Alanine Aminotransferase (ALT/SGPT) 30 U/L (16-63) Alkaline Phosphatase 121 U/L (46-116) Total Protein 6.4 g/dL (6.4-8.2) Albumin 2.0 g/dL (3.4-5.0) Albumin/Globulin Ratio 0.5 (1.0-1.7) Test 09/08/18 10:54 O2 Saturation 97 % (92-99) Arterial Blood pH 7.44 (7.35-7.45) Arterial Blood pCO2 at Patient Temp 36 mmHg (35-46) Arterial Blood pO2 at Patient Temp 120 mmHg (75-108) Arterial Blood HCO3 24 mmol/L (21-28) Arterial Blood Base Excess 0 mmol/L (-3-3) FiO2 40 Laboratory Tests Test 09/08/18 06:15 09/08/18 07:25 09/08/18 10:54 White Blood Count 6.5 x10^3/uL (4.0-11.0) Red Blood Count 2.25 x10^6/uL (4.30-5.70) Hemoglobin 6.5 g/dL (13.0-17.5) Hematocrit 19.3 % (39.0-53.0) Mean Corpuscular Volume 86 fL (79-100) Mean Corpuscular Hemoglobin 29 pg (25-35) Mean Corpuscular Hemoglobin Concent 34 g/dL (31-37) Red Cell Distribution Width 19.1 % (11.5-14.5) Platelet Count 287 x10^3/uL (140-400) Neutrophils (%) (Auto) 51 % (31-73) Lymphocytes (%) (Auto) 32 % (24-48) Monocytes (%) (Auto) 15 % (0-9) Eosinophils (%) (Auto) 2 % (0-3) Basophils (%) (Auto) 1 % (0-3) Neutrophils # (Auto) 3.3 x10^3uL (1.8-7.7) Lymphocytes # (Auto) 2.0 x10^3/uL (1.0-4.8) Monocytes # (Auto) 1.0 x10^3/uL (0.0-1.1) Eosinophils # (Auto) 0.1 x10^3/uL (0.0-0.7) Basophils # (Auto) 0.0 x10^3/uL (0.0-0.2) Sodium Level 137 mmol/L (136-145) Potassium Level 4.3 mmol/L (3.5-5.1) Chloride Level 97 mmol/L (98-107) Carbon Dioxide Level 24 mmol/L (21-32) Anion Gap 16 (6-14) Blood Urea Nitrogen 64 mg/dL (8-26) Creatinine 5.9 mg/dL (0.7-1.3) Estimated GFR (Cockcroft-Gault) 10.1 BUN/Creatinine Ratio 11 (6-20) Glucose Level 116 mg/dL (70-99) Calcium Level 7.1 mg/dL (8.5-10.1) Total Bilirubin 0.9 mg/dL (0.2-1.0) Aspartate Amino Transf (AST/SGOT) 42 U/L (15-37) Alanine Aminotransferase (ALT/SGPT) 30 U/L (16-63) Alkaline Phosphatase 121 U/L (46-116) Total Protein 6.4 g/dL (6.4-8.2) Albumin 2.0 g/dL (3.4-5.0) Albumin/Globulin Ratio 0.5 (1.0-1.7) O2 Saturation 97 % (92-99) 97 % (92-99) Arterial Blood pH 7.45 (7.35-7.45) 7.44 (7.35-7.45) Arterial Blood pCO2 at Patient Temp 35 mmHg (35-46) 36 mmHg (35-46) Arterial Blood pO2 at Patient Temp 117 mmHg (75-108) 120 mmHg (75-108) Arterial Blood HCO3 24 mmol/L (21-28) 24 mmol/L (21-28) Arterial Blood Base Excess 0 mmol/L (-3-3) 0 mmol/L (-3-3) FiO2 35 40 Microbiology 09/04/18 Blood Culture - Final, Complete 08/29/18 CSF Gram Stain - Final, Complete 08/27/18 Stool Culture - Final, Complete 08/27/18 Stool Culture Result 1 (LOTUS) - Final, Complete 08/27/18 Campylobacter Antigen Assay - Final, Complete 08/27/18 Campylobactor Result 1 - Final, Complete 08/27/18 Shiga Toxin Test - Final, Complete 09/05/18 - Final, Complete 09/05/18 - Final, Complete 09/05/18 - Final, Complete 09/05/18 Gram Stain Evaluation - Final, Complete 09/05/18 Sputum Culture - Final, Complete 09/05/18 Sputum Result 1 - Final, Complete 09/04/18 Urine Culture - Final, Complete 09/04/18 Urine Culture Result 1 (LOTUS) - Final, Complete Medications Current Medications Sodium Chloride 1,000 ml @ 1,000 mls/hr 1X ONCE IV Last administered on 08/25/18 20:38; Start 08/25/18 at 19:15; Stop 08/25/18 at 20:14; Status DC Ibuprofen (Motrin) 600 mg 1X ONCE PO Last administered on 08/25/18at 20:38; Start 08/25/18 at 19:45; Stop 08/25/18 at 19:49; Status DC Sodium Chloride 1,000 ml @ 1,000 mls/hr 1X ONCE IV Last administered on 08/25/18at 20:30; Start 08/25/18 at 20:30; Stop 08/25/18 at 21:29; Status DC Ceftriaxone Sodium (Rocephin) 1 gm 1X ONCE IVP Last administered on 08/25/18at 20:36; Start 08/25/18 at 20:30; Stop 08/25/18 at 20:31; Status DC Vancomycin HCl 2 gm/Sodium Chloride 500 ml @ 250 mls/hr 1X ONCE IV Last administered on 08/25/18at 23:10; Start 08/25/18 at 21:30; Stop 08/25/18 at 23:29; Status DC Sodium Chloride 1,000 ml @ 1,000 mls/hr 1X ONCE IV Last administered on 08/25/18at 23:51; Start 08/25/18 at 21:00; Stop 08/25/18 at 21:59; Status DC Piperacillin Sod/ Tazobactam Sod 4.5 gm/Sodium Chloride 100 ml @ 200 mls/hr 1X ONCE IV ; Start 08/25/18 at 21:15; Stop 08/25/18 at 21:44; Status DC Aztreonam (Azactam) 2 gm 1X ONCE IVP Last administered on 08/25/18at 21:15; Start 08/25/18 at 21:15; Stop 08/25/18 at 21:16; Status DC Magnesium Sulfate 50 ml @ 25 mls/hr 1X ONCE IV Last administered on 08/25/18at 23:51; Start 08/25/18 at 21:15; Stop 08/25/18 at 23:14; Status DC Ondansetron HCl (Zofran) 4 mg PRN Q8HRS PRN IV NAUSEA/VOMITING; Start 08/25/18 at 21:15; Stop 08/26/18 at 21:14; Status DC Acetaminophen (Tylenol) 650 mg PRN Q4HRS PRN PO FEVER; Start 08/25/18 at 21:15; Stop 08/26/18 at 21:14; Status DC Sodium Chloride 1,000 ml @ 125 mls/hr 1X ONCE IV Last administered on 08/25/18at 23:09; Start 08/25/18 at 21:15; Stop 08/26/18 at 05:14; Status DC Daptomycin 610 mg/ Sodium Chloride 50 ml @ 100 mls/hr QODAY IV Last administered on 08/27/18at 08:59; Start 08/27/18 at 09:00; Stop 08/28/18 at 15:40; Status DC Meropenem 500 mg/ Sodium Chloride 50 ml @ 100 mls/hr 1X ONCE IV Last administered on 08/25/18at 22:12; Start 08/25/18 at 22:00; Stop 08/25/18 at 22:29; Status DC Doxycycline Hyclate 100 mg/ Dextrose 100 ml @ 50 mls/hr Q12HR IV Last administered on 09/03/18at 22:11; Start 08/26/18 at 09:00; Stop 09/04/18 at 08:11; Status DC Meropenem 500 mg/ Sodium Chloride 50 ml @ 100 mls/hr DAILY IV Last administered on 08/29/18at 10:13; Start 08/26/18 at 09:00; Stop 08/30/18 at 08:17; Status DC Sodium Chloride (Normal Saline Flush) 10 ml QSHIFT PRN IV AFTER MEDS AND BLOOD DRAWS; Start 08/26/18 at 09:15 Norepinephrine Bitartrate 250 ml @ 0 mls/hr CONT PRN IV PER PROTOCOL Last administered on 08/27/18at 10:21; Start 08/26/18 at 09:15; Stop 08/30/18 at 17:20; Status DC Famotidine (Pepcid) 20 mg DAILY PO Last administered on 08/27/18at 08:14; Start 08/26/18 at 12:00; Stop 08/27/18 at 14:36; Status DC Sodium Chloride 1,000 ml @ 1,000 mls/hr Q1H PRN IV hypotension; Start 08/26/18 at 11:51; Stop 08/26/18 at 17:50; Status DC Sodium Chloride (Normal Saline Flush) 10 ml 1X PRN PRN IV AP catheter pack; Start 08/26/18 at 12:00; Stop 08/27/18 at 11:59; Status DC Sodium Chloride (Normal Saline Flush) 10 ml 1X PRN PRN IV BOILER ERECTOR catheter pack; Start 08/26/18 at 12:00; Stop 08/27/18 at 11:59; Status DC Sodium Chloride 1,000 ml @ 400 mls/hr Q2H30M PRN IV PATENCY; Start 08/26/18 at 11:51; Stop 08/26/18 at 23:50; Status DC Info (PHARMACY MONITORING -- do not chart) 1 each PRN DAILY PRN MC SEE COMMENTS; Start 08/26/18 at 12:00; Status UNV Info (PHARMACY MONITORING -- do not chart) 1 each PRN DAILY PRN MC SEE COMMENTS; Start 08/26/18 at 12:00; Stop 09/01/18 at 10:59; Status DC Lidocaine/Sodium Bicarbonate (Buffered Lidocaine 1%) 4 ml 1X ONCE INJ Last administered on 08/26/18at 12:45; Start 08/26/18 at 12:45; Stop 08/26/18 at 12:48; Status DC Heparin Sodium (Porcine) (Heparin Sodium) 2,500 unit 1X ONCE INT CAT Last administered on 08/26/18at 12:45; Start 08/26/18 at 12:45; Stop 08/26/18 at 12:48; Status DC Lidocaine/Sodium Bicarbonate (Buffered Lidocaine 1%) 3 ml STK-MED ONCE .ROUTE ; Start 08/26/18 at 12:49; Stop 08/26/18 at 12:50; Status DC Heparin Sodium (Porcine) (Heparin Sodium) 10,000 unit STK-MED ONCE .ROUTE ; Start 08/26/18 at 12:49; Stop 08/26/18 at 12:50; Status DC Lactobacillus Rhamnosus (Culturelle) 1 cap BID PO Last administered on 09/08/18at 09:34; Start 08/26/18 at 21:00; Stop 09/08/18 at 10:55; Status DC Acetaminophen (Tylenol) 325 mg STK-MED ONCE PO ; Start 08/27/18 at 00:43; Stop 08/27/18 at 00:44; Status DC Sodium Chloride 1,000 ml @ 1,000 mls/hr 1X ONCE IV Last administered on 08/27/18at 11:05; Start 08/27/18 at 10:30; Stop 08/27/18 at 11:29; Status DC Sodium Chloride 1,000 ml @ 1,000 mls/hr Q1H PRN IV hypotension; Start 08/27/18 at 11:28; Stop 08/27/18 at 17:27; Status DC Albumin Human 200 ml @ 200 mls/hr 1X PRN PRN IV Hypotension; Start 08/27/18 at 11:30; Stop 08/27/18 at 17:29; Status DC Sodium Chloride (Normal Saline Flush) 10 ml 1X PRN PRN IV AP catheter pack; Start 08/27/18 at 11:30; Stop 08/28/18 at 11:29; Status DC Sodium Chloride (Normal Saline Flush) 10 ml 1X PRN PRN IV BOILER ERECTOR catheter pack; Start 08/27/18 at 11:30; Stop 08/28/18 at 11:29; Status DC Sodium Chloride 1,000 ml @ 400 mls/hr Q2H30M PRN IV PATENCY; Start 08/27/18 at 11:28; Stop 08/27/18 at 23:27; Status DC Info (PHARMACY MONITORING -- do not chart) 1 each PRN DAILY PRN MC SEE JANIYA TS; Start 08/27/18 at 11:30; Status UNV Info (PHARMACY MONITORING -- do not chart) 1 each PRN DAILY PRN MC SEE COMMENTS; Start 08/27/18 at 11:30; Status UNV Famotidine (Pepcid) 20 mg Q48H PO ; Start 08/29/18 at 09:00; Stop 08/29/18 at 11:29; Status DC Acetaminophen (Tylenol) 650 mg PRN Q6HRS PRN PO mild pain/fever; Start 08/27/18 at 21:15 Acetaminophen (Tylenol Supp) 650 mg PRN Q6HRS PRN IA MILD PAIN / TEMP Last administered on 09/02/18at 01:18; Start 08/27/18 at 21:15 Fentanyl Citrate (Fentanyl 2ml Vial) 25 mcg 1X ONCE IV Last administered on 08/28/18at 08:54; Start 08/28/18 at 08:45; Stop 08/28/18 at 08:47; Status DC Lidocaine/Sodium Bicarbonate (Buffered Lidocaine 1%) 3 ml STK-MED ONCE .ROUTE ; Start 08/28/18 at 09:55; Stop 08/28/18 at 09:56; Status DC Lidocaine HCl (Glydo (Lidocaine) Jelly) 1 meng 1X STAT MM Last administered on 08/28/18at 10:16; Start 08/28/18 at 10:16; Stop 08/28/18 at 10:19; Status DC Benzocaine (Hurricaine One) 1 spray 1X STAT MM Last administered on 08/28/18at 10:16; Start 08/28/18 at 10:16; Stop 08/28/18 at 10:19; Status DC Lidocaine/Sodium Bicarbonate (Buffered Lidocaine 1%) 3 ml 1X ONCE INJ ; Start 08/28/18 at 10:30; Stop 08/28/18 at 10:31; Status DC Haloperidol Lactate (Haldol Inj) 5 mg PRN Q6HRS PRN IVP AGITATION Last administered on 09/06/18at 05:53; Start 08/28/18 at 12:00 Fentanyl Citrate (Fentanyl 2ml Vial) 50 mcg PRN Q4HRS PRN IV PAIN Last administered on 08/28/18at 21:44; Start 08/28/18 at 15:30; Stop 09/05/18 at 02:11; Status DC Sodium Chloride 1,000 ml @ 1,000 mls/hr Q1H PRN IV hypotension; Start 08/28/18 at 14:00; Stop 08/28/18 at 19:59; Status DC Albumin Human 200 ml @ 200 mls/hr 1X PRN PRN IV Hypotension Last administered on 08/28/18at 14:50; Start 08/28/18 at 14:00; Stop 09/03/18 at 18:17; Status DC Sodium Chloride 1,000 ml @ 400 mls/hr Q2H30M PRN IV PATENCY; Start 08/28/18 at 14:00; Stop 08/29/18 at 01:59; Status DC Info (PHARMACY MONITORING -- do not chart) 1 each PRN DAILY PRN MC SEE COMMENTS; Start 08/28/18 at 15:30; Status UNV Info (PHARMACY MONITORING -- do not chart) 1 each PRN DAILY PRN MC SEE COMMENTS; Start 08/28/18 at 15:30; Status UNV Daptomycin 610 mg/ Sodium Chloride 50 ml @ 100 mls/hr Q48H IV ; Start 08/30/18 at 16:00; Stop 08/30/18 at 16:00; Status DC Famotidine (Pepcid Vial) 20 mg QHS IVP Last administered on 08/31/18at 20:59; Start 08/29/18 at 21:00; Stop 09/01/18 at 11:00; Status DC Acyclovir Sodium 340 mg/Dextrose 106.8 ml @ 106.8 mls/ hr Q12HR IV Last administered on 09/01/18at 11:05; Start 08/30/18 at 09:00; Stop 09/01/18 at 13:37; Status DC Sodium Chloride 1,000 ml @ 1,000 mls/hr Q1H PRN IV hypotension; Start 08/30/18 at 11:02; Stop 08/30/18 at 17:01; Status DC Sodium Chloride 1,000 ml @ 400 mls/hr Q2H30M PRN IV PATENCY; Start 08/30/18 at 11:02; Stop 08/30/18 at 23:01; Status DC Info (PHARMACY MONITORING -- do not chart) 1 each PRN DAILY PRN MC SEE COMMENTS; Start 08/30/18 at 11:15; Status UNV Info (PHARMACY MONITORING -- do not chart) 1 each PRN DAILY PRN MC SEE COMMENTS; Start 08/30/18 at 11:15; Status UNV Info (Tpn Per Pharmacy) 1 each PRN DAILY PRN MC SEE COMMENTS Last administered on 09/03/18at 10:53; Start 08/30/18 at 12:45; Stop 09/04/18 at 12:50; Status DC Sodium Chloride 90 meq/Potassium Chloride 50 meq/ Potassium Phosphate 3 mmol/ Magnesium Sulfate 10 meq/Calcium Gluconate 10 meq/ Multivitamins 10 ml/Chromium/ Copper/Manganese/ Seleni/Zn 1 ml/ Total Parenteral Nutrition/Amino Acids /Dextrose/ Fat Emulsion Intravenous 1,512 ml @ 63 mls/hr TPN CONT IV Last administered on 08/30/18at 21:40; Start 08/30/18 at 22:00; Stop 08/31/18 at 21:59; Status DC Ondansetron HCl (Zofran) 4 mg PRN Q6HRS PRN IV NAUSEA/VOMITING; Start 08/31/18 at 08:00 Haloperidol (Haldol) 2 mg PRN QID PRN PO AGITATION; Start 08/31/18 at 08:00; Stop 08/31/18 at 12:43; Status DC Haloperidol Lactate (HALDOL 2mg ORAL CONC) 2 mg PRN QID PRN PO AGITATION; Start 08/31/18 at 12:43 Sodium Chloride 90 meq/Potassium Chloride 50 meq/ Potassium Phosphate 5 mmol/ Magnesium Sulfate 3 meq/Calcium Gluconate 10 meq/ Multivitamins 10 ml/Chromium/ Copper/Manganese/ Seleni/Zn 1 ml/ Total Parenteral Nutrition/Amino Acids/Dextrose 1,512 ml @ 63 mls/hr TPN CONT IV Last administered on 08/31/18at 20:59; Start 08/31/18 at 22:00; Stop 09/01/18 at 21:59; Status DC Propofol 100 ml @ As Directed STK-MED ONCE IV ; Start 08/31/18 at 22:45; Stop 08/31/18 at 22:46; Status DC Succinylcholine Chloride (Anectine) 200 mg STK-MED ONCE .ROUTE ; Start 08/31/18 at 22:46; Stop 08/31/18 at 22:47; Status DC Atropine Sulfate (ATROPINE 1mg SYRINGE) 1 mg STK-MED ONCE .ROUTE ; Start 08/31/18 at 22:58; Stop 08/31/18 at 22:59; Status DC Fentanyl Citrate 30 ml @ 0 mls/hr CONT PRN IV SEE PROTOCOL Last administered on 09/06/18at 10:39; Start 09/01/18 at 00:00; Stop 09/06/18 at 10:59; Status DC Propofol 100 ml @ 0 mls/hr CONT PRN IV SEE PROTOCOL Last administered on 09/06/18at 08:14; Start 09/01/18 at 00:00; Stop 09/06/18 at 10:59; Status DC Chlorhexidine Gluconate (Peridex) 15 ml BID MM Last administered on 09/07/18at 21:21; Start 09/01/18 at 09:00; Stop 09/08/18 at 08:04; Status DC Midazolam HCl 100 ml @ 0 mls/hr CONT PRN IV SEE PROTOCOL; Start 09/01/18 at 00:00; Stop 09/08/18 at 11:30; Status DC Albuterol/ Ipratropium (Duoneb) 3 ml RTQID NEB Last administered on 09/08/18at 12:41; Start 09/01/18 at 08:00 Albuterol/ Ipratropium (Duoneb) 3 ml 1X ONCE NEB Last administered on 09/01/18at 01:10; Start 09/01/18 at 01:00; Stop 09/01/18 at 01:01; Status DC Succinylcholine Chloride (Anectine) 200 mg 1X ONCE IV Last administered on 08/31/18at 23:04; Start 09/01/18 at 01:15; Stop 09/01/18 at 01:16; Status DC Sodium Chloride 1,000 ml @ 1,000 mls/hr Q1H PRN IV hypotension; Start 09/01/18 at 07:00; Stop 09/01/18 at 12:59; Status DC Sodium Chloride (Normal Saline Flush) 10 ml 1X PRN PRN IV AP catheter pack; Start 09/01/18 at 07:00; Stop 09/02/18 at 06:59; Status DC Sodium Chloride (Normal Saline Flush) 10 ml 1X PRN PRN IV BOILER ERECTOR catheter pack; Start 09/01/18 at 07:00; Stop 09/02/18 at 06:59; Status DC Sodium Chloride 1,000 ml @ 400 mls/hr Q2H30M PRN IV PATENCY; Start 09/01/18 at 07:00; Stop 09/01/18 at 18:59; Status DC Info (PHARMACY MONITORING -- do not chart) 1 each PRN DAILY PRN MC SEE COMMENTS; Start 09/01/18 at 11:00; Status Cancel Info (PHARMACY MONITORING -- do not chart) 1 each PRN DAILY PRN MC SEE COMMENTS; Start 09/01/18 at 11:00; Status Cancel Famotidine (Pepcid Vial) 20 mg Q48H IVP Last administered on 09/07/18at 21:21; Start 09/03/18 at 21:00 Sodium Chloride 90 meq/Potassium Chloride 50 meq/ Potassium Phosphate 10 mmol/ Calcium Gluconate 10 meq/ Multivitamins 10 ml/Chromium/ Copper/Manganese/ Seleni/Zn 1 ml/ Total Parenteral Nutrition/Amino Acids/Dextrose 1,512 ml @ 63 mls/hr TPN CONT IV Last administered on 09/01/18at 22:11; Start 09/01/18 at 22:00; Stop 09/02/18 at 21:59; Status DC Piperacillin Sod/ Tazobactam Sod 2.25 gm/Sodium Chloride 50 ml @ 100 mls/hr Q6HRS IV Last administered on 09/08/18at 13:33; Start 09/01/18 at 14:00 Sodium Chloride 110 meq/Potassium Chloride 50 meq/ Potassium Phosphate 10 mmol/ Calcium Gluconate 10 meq/ Multivitamins 10 ml/Chromium/ Copper/Manganese/ S mirna/Zn 1 ml/ Magnesium Sulfate 3 meq/Total Parenteral Nutrition/Amino Acids/Dextrose 1,512 ml @ 63 mls/hr TPN CONT IV Last administered on 09/02/18at 22:13; Start 09/02/18 at 22:00; Stop 09/03/18 at 21:59; Status DC Darbepoetin Phil (Aranesp) 100 mcg [id number] SQ Last administered on 09/03/18at 22:11; Start 09/03/18 at 21:00 Sodium Chloride 130 meq/Potassium Acetate 20 meq/ Calcium Gluconate 10 meq/ Multivitamins 10 ml/Chromium/ Copper/Manganese/ Seleni/Zn 1 ml/ Magnesium Sulfate 3 meq/Total Parenteral Nutrition/Amino Acids/Dextrose 1,512 ml @ 63 mls/hr TPN CONT IV Last administered on 09/03/18at 22:12; Start 09/03/18 at 22:00; Stop 09/04/18 at 21:59; Status DC Albumin Human 200 ml @ 200 mls/hr 1X PRN PRN IV Hypotension; Start 09/03/18 at 10:00; Stop 09/03/18 at 21:00; Status DC Sodium Chloride (Normal Saline Flush) 10 ml 1X PRN PRN IV AP catheter pack; Start 09/03/18 at 10:00; Stop 09/03/18 at 21:00; Status DC Sodium Chloride (Normal Saline Flush) 10 ml 1X PRN PRN IV BOILER ERECTOR catheter pack; Start 09/03/18 at 10:00; Stop 09/03/18 at 21:00; Status DC Sodium Chloride 1,000 ml @ 400 mls/hr Q2H30M PRN IV PATENCY; Start 09/03/18 at 10:00; Stop 09/03/18 at 21:59; Status DC Info (PHARMACY MONITORING -- do not chart) 1 each PRN DAILY PRN MC SEE COMMENTS; Start 09/03/18 at 18:15; Status UNV Atropine Sulfate (ATROPINE 0.5mg SYRINGE) 0.5 mg STK-MED ONCE .ROUTE ; Start 08/31/18 at 08:06; Stop 09/04/18 at 08:07; Status DC Epinephrine HCl (EPINEPHrine SYRINGE) 3 mg STK-MED ONCE .ROUTE ; Start 08/31/18 at 08:06; Stop 09/04/18 at 08:07; Status DC Sodium Bicarbonate (Sodium Bicarb Adult 8.4% Syr) 100 meq STK-MED ONCE .ROUTE ; Start 08/31/18 at 08:06; Stop 09/04/18 at 08:07; Status DC Levofloxacin/ Dextrose 150 ml @ 100 mls/hr QODAY IV Last administered on 09/06/18at 10:28; Start 09/04/18 at 09:00; Stop 09/07/18 at 07:52; Status DC Sodium Chloride 1,000 ml @ 1,000 mls/hr Q1H PRN IV hypotension; Start 09/04/18 at 08:23; Stop 09/04/18 at 14:24; Status DC Albumin Human 200 ml @ 200 mls/hr 1X PRN PRN IV Hypotension; Start 09/04/18 at 08:30; Stop 09/04/18 at 14:29; Status DC Sodium Chloride 1,000 ml @ 400 mls/hr Q2H30M PRN IV PATENCY; Start 09/04/18 at 08:23; Stop 09/04/18 at 20:22; Status DC Info (PHARMACY MONITORING -- do not chart) 1 each PRN DAILY PRN MC SEE COMMENTS; Start 09/04/18 at 08:30; Stop 09/05/18 at 08:55; Status DC Info (PHARMACY MONITORING -- do not chart) 1 each PRN DAILY PRN MC SEE COMMENTS; Start 09/04/18 at 08:30; Status UNV Linezolid/Dextrose 300 ml @ 300 mls/hr Q12HR IV Last administered on 09/08/18at 09:34; Start 09/05/18 at 09:30 Sodium Chloride 1,000 ml @ 1,000 mls/hr Q1H PRN IV hypotension; Start 09/05/18 at 08:51; Stop 09/05/18 at 14:50; Status DC Sodium Chloride (Normal Saline Flush) 10 ml 1X PRN PRN IV AP catheter pack; Start 09/05/18 at 09:00; Stop 09/06/18 at 08:59; Status DC Sodium Chloride (Normal Saline Flush) 10 ml 1X PRN PRN IV BOILER ERECTOR catheter pack; Start 09/05/18 at 09:00; Stop 09/06/18 at 08:59; Status DC Sodium Chloride 1,000 ml @ 400 mls/hr Q2H30M PRN IV PATENCY; Start 09/05/18 at 08:51; Stop 09/05/18 at 20:50; Status DC Info (PHARMACY MONITORING -- do not chart) 1 each PRN DAILY PRN MC SEE CO MMENTS; Start 09/05/18 at 09:00; Stop 09/05/18 at 09:00; Status DC Info (PHARMACY MONITORING -- do not chart) 1 each PRN DAILY PRN MC SEE COMMENTS; Start 09/05/18 at 09:00; Status Cancel Fentanyl Citrate (Fentanyl 2ml Vial) 25 mcg PRN Q2HR PRN IV MODERATE PAIN Last administered on 09/08/18at 04:34; Start 09/06/18 at 11:00 Dexmedetomidine HCl 200 mcg/ Sodium Chloride 50 ml @ 0 mls/hr CONT PRN IV PER PROTOCOL; Start 09/06/18 at 11:00; Stop 09/08/18 at 08:03; Status DC Sodium Chloride 500 ml @ 500 mls/hr 1X PRN PRN IV SEE COMMENTS; Start 09/06/18 at 11:00 Atropine Sulfate (ATROPINE 0.5mg SYRINGE) 0.5 mg PRN Q5MIN PRN IV SEE COMMENTS; Start 09/06/18 at 11:00 Sodium Chloride 1,000 ml @ 1,000 mls/hr Q1H PRN IV hypotension; Start 09/06/18 at 11:52; Stop 09/06/18 at 17:51; Status DC Diphenhydramine HCl (Benadryl) 25 mg 1X PRN PRN IV ITCHING; Start 09/06/18 at 12:00; Stop 09/07/18 at 11:59; Status DC Diphenhydramine HCl (Benadryl) 25 mg 1X PRN PRN IV ITCHING; Start 09/06/18 at 12:00; Stop 09/07/18 at 11:59; Status DC Sodium Chloride 1,000 ml @ 400 mls/hr Q2H30M PRN IV PATENCY; Start 09/06/18 at 11:52; Stop 09/06/18 at 23:51; Status DC Info (PHARMACY MONITORING -- do not chart) 1 each PRN DAILY PRN MC SEE COMMENTS; Start 09/06/18 at 12:00; Stop 09/06/18 at 12:00; Status DC Micafungin Sodium 100 mg/Dextrose 100 ml @ 100 mls/hr Q24H IV Last administered on 09/08/18at 09:33; Start 09/07/18 at 08:30 Sodium Chloride 1,000 ml @ 1,000 mls/hr Q1H PRN IV hypotension; Start 09/07/18 at 16:29; Stop 09/07/18 at 22:28; Status DC Diphenhydramine HCl (Benadryl) 25 mg 1X PRN PRN IV ITCHING; Start 09/07/18 at 16:30; Stop 09/08/18 at 16:29 Diphenhydramine HCl (Benadryl) 25 mg 1X PRN PRN IV ITCHING; Start 09/07/18 at 16:30; Stop 09/08/18 at 16:29 Sodium Chloride 1,000 ml @ 400 mls/hr Q2H30M PRN IV PATENCY; Start 09/07/18 at 16:29; Stop 09/08/18 at 04:28; Status DC Info (PHARMACY MONITORING -- do not chart) 1 each PRN DAILY PRN MC SEE COMMENTS; Start 09/07/18 at 16:30 Active Scripts Active Potassium Chloride 20 Meq Tablet.er 20 Meq PO DAILY Orphenadrine Citrate 100 Mg Tablet.er 100 Mg PO Q12HR Anaprox Ds (Naproxen Sodium) 550 Mg Tablet 550 Mg PO Q12HR Reported Prednisone 20 Mg Tablet 1 Tab PO DAILY Hydrochlorothiazide Tablet (Hydrochlorothiazide) 12.5 Mg Tablet 12.5 Mg PO DAILY Shilpi Allergy (Fexofenadine Hcl) 180 Mg Tablet 1 Tab PO DAILY Vitals/I & O Vital Sign - Last 24 Hours 09/07/18 09/07/18 09/07/18 09/07/18 16:21 17:00 17:01 18:00 Temp 99.2 99.2 Pulse 74 66 Resp 16 22 B/P (MAP) 145/76 (99) 157/90 (112) Pulse Ox 98 97 97 O2 Delivery Mechanical Ventilator Ventilator Ventilator Ventilator 09/07/18 09/07/18 09/07/18 09/07/18 19:00 20:00 20:00 20:23 Temp 98.6 98.6 Pulse 65 73 Resp 20 20 B/P (MAP) 122/64 (83) 142/73 (96) Pulse Ox 98 98 99 O2 Delivery Ventilator Ventilator Mechanical Ventilator Ventilator 09/07/18 09/07/18 09/07/18 09/07/18 21:00 22:00 23:35 23:59 Pulse 87 98 Resp 20 20 B/P (MAP) 129/67 (87) 135/65 (88) Pulse Ox 98 100 99 O2 Delivery Ventilator Ventilator Ventilator Mechanical Ventilator 09/07/18 09/08/18 09/08/18 09/08/18 23:59 00:07 01:00 01:36 Pulse 71 78 Resp 20 16 20 B/P (MAP) 135/86 (102) 145/60 (88) Pulse Ox 98 100 100 99 O2 Delivery Ventilator Ventilator Ventilator O2 Flow Rate 15.0 09/08/18 09/08/18 09/08/18 09/08/18 02:00 02:15 03:09 03:42 Pulse 78 76 Resp 20 18 17 B/P (MAP) 169/60 (96) 147/72 (97) Pulse Ox 100 99 99 O2 Delivery Ventilator Ventilator Ventilator 09/08/18 09/08/18 09/08/18 09/08/18 04:00 04:00 04:34 05:00 Temp 98.1 98.1 Pulse 80 77 Resp 17 16 17 B/P (MAP) 142/75 (97) 106/60 (75) Pulse Ox 99 99 100 O2 Delivery Mechanical Ventilator Ventilator Ventilator O2 Flow Rate 15.0 09/08/18 09/08/18 09/08/18 09/08/18 05:29 05:44 06:06 07:00 Pulse 71 76 Resp 18 18 B/P (MAP) 136/69 (91) 140/72 (94) Pulse Ox 100 99 100 100 O2 Delivery Ventilator Ventilator Ventilator O2 Flow Rate 15.0 09/08/18 09/08/18 09/08/18 09/08/18 08:00 08:00 08:15 09:00 Temp 98.6 98.6 Pulse 72 85 Resp 20 20 B/P (MAP) 134/69 (90) 140/74 (96) Pulse Ox 100 100 100 O2 Delivery Mechanical Ventilator Ventilator Ventilator Ventilator 09/08/18 09/08/18 10:00 12:45 Pulse 84 Resp 18 B/P (MAP) 124/66 (85) Pulse Ox 99 96 O2 Delivery Ventilator Nasal Cannula O2 Flow Rate 4.0 Intake and Output 09/07/18 09/07/18 09/08/18 15:00 23:00 07:00 Intake Total 350 ml 1656 ml 1780 ml Output Total 10 ml 800 ml Balance 340 ml 856 ml 1780 ml JAVON COSME MD Sep 08, 2018 16:02
[2018-09-09] VITALS (22 sets, daily range): BP systolic 128–143; BP diastolic 69–79
[2018-09-09 05:37] LABS: BASO # 0.1 x10^3/uL (0.0-0.2); BASO % 1 % (0-3); EOS # 0.1 x10^3/uL (0.0-0.7); EOS % 1 % (0-3); HEMOGLOBIN 7.1 g/dL (13.0-17.5); LYMPH # 2.5 x10^3/uL (1.0-4.8); LYMPH % 26 % (24-48); MEAN CORPUSCULAR HEMOGLOBIN 30 pg (25-35); MEAN CORPUSCULAR HGB CONC 35 g/dL (31-37); MEAN CORPUSCULAR VOLUME 86 fL (79-100); MONO # 1.3 x10^3/uL (0.0-1.1); MONO % 14 % (0-9); NEUT # 5.5 x10^3uL (1.8-7.7); NEUT % 58 % (31-73); PLATELET COUNT 345 x10^3/uL (140-400); RED BLOOD COUNT 2.39 x10^6/uL (4.30-5.70); RED CELL DISTRIBUTION WIDTH 18.7 % (11.5-14.5); WHITE BLOOD COUNT 9.4 x10^3/uL (4.0-11.0)
[2018-09-09 05:49] LABS: ALBUMIN/GLOBULIN RATIO 0.5 (1.0-1.7); CALCIUM 6.8 mg/dL (8.5-10.1); CREATININE 8.2 mg/dL (0.7-1.3); GFR 6.9; POTASSIUM 4.4 mmol/L (3.5-5.1); TOTAL BILIRUBIN 0.8 mg/dL (0.2-1.0); TOTAL PROTEIN 6.4 g/dL (6.4-8.2)
[2018-09-09] MEDS: PIPERACILLIN/TAZOBACTAM 2.25 GM in IV NORMAL SALINE 50ML 50 ML IV SCH ×3 (06:16→18:24)
[2018-09-09 06:45] LABS: HEMATOCRIT 20.6 % (39.0-53.0)
--- NOTE | 2018-09-09 07:44 | PDOC ---
PROGRESS NOTES Chief Complaint Chief Complaint Sepsis Encephalopathy Encephalitis of undetermined etiology Respiratory failure Probable tick-borne illness, suspected. with h/o tick bite 3 weeks ago at [place] Lactic acidosis. Fever. Bandemia. Acute hepatic injury Acute kidney injury. Thrombocytopenia. Hemochromatosis. LLE dermatitis improving, ? poison shel[place],resolving with local treatment History of Present Illness History of Present Illness Mr Kirk is a 52-year-old male with a past medical history of hemochromatosis who is pretty healthy otherwise and very active. About 3 weeks ago, he was at [facility] [employer] [place] and found a tick embedded on the back of his right thigh. He pulled it out and thought nothing of it. The next day, he was cleaning up a yard with a few other persons from [place]. He recalls kneeling down on his left knee pulling wheat. A few days later, he developed an itchy red blistering rash on his left knee that improved with iozt-feh-oifctup ivory rest. He then developed a different type of rash that was itchy, splotchy and red on the inner aspect of both arms. He was seen by his doctor and prescribed Bactrim for infection. 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 About a week later, on Friday 08/18, he went to a men's breakfast and a [employer] meeting. Afterwards, he felt unusually tired. Over the following 24 hours, he did not feel well. He developed fever, chills, joint pains and muscle aches. He alternated taking ibuprofen and Tylenol without relief. He was seen at urgent care center and prescribed prednisone for upper respiratory infection. Unfortunately, he felt worse. He lost his appetite and was not drinking much and was urinating less. His said he was sleeping more, moaned, seemed lethargic and confused, prompting the ER visit. On arrival to the ER, he had a temperature of 100.3, respiratory rate 28. Laboratory values returned abnormal with a WBC count 6.2, segs 68%, bands 24%, platelets 17,000. Lactic acid was 5.1. Sed rate 11. He had elevated LFTs and acute kidney injury. Cultures were ordered. He was dosed with vancomycin, ceftriaxone and aztreonam in the ER. ID adjusted his antibiotics to daptomycin, meropenem and doxycycline. He was feeling improved, then on 08/28/2018 continued to worsen, was started on dialysis, required increasing O2 and was placed on BIPAP and ultimately intubated on 08/31/2018. Serology for HIV, HSV, [place] spotted fever and Ehrlichia all thus negative. Had LP on 08/29/18 with increased protein. His spouse notes no recent travel, last time he was out of the country was [facility] in 2003. 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 He struggled with infidelity over the last year and over the weekend had HIV testing consent per , this was negative as well as syphilis testing. 09/08: Extubated without event, able to get up to chair. Still on tube feeds and confused. Patient seen and examined in the ICU. is bedside today. He is extremely ill. Fungal cultures positive in blood. HD cath and CVC pulled 09/07/18 awaiting negative cultures prior to reinsertion. Plan for dialysis again on Monday unless labs indicate he need it earlier. Hb 7.1 today. Type and screen, will only transfuse per hematology and nephrology. Now without fevers after broadened coverage with ID including micafungin. Have d/w ID to broaden coverage further. He remains guardedly critically ill. DOWELER to evaluated today Vitals Vitals Vital Signs Date Time Temp Pulse Resp B/P (MAP) Pulse Ox O2 Delivery O2 Flow Rate FiO2 09/09/18 06:00 78 16 132/75 (94) 99 Nasal Cannula 4.0 09/09/18 04:04 98.3 98.3 Physical Exam Physical Exam GENERAL: Awake, orally intubated, mitts HEENT: Pupils equal, ETT, OGT NECK: Supple. LUNGS: Clear anteriorly HEART: S1 and S2. regular ABDOMEN: + distention, soft, no guarding, bowel sounds present. Rectal tube in place : Waters in place EXTREMITIES: no edema,no cyanosis. SKIN: Warm NEUROLOGIC: Awake, tracks PIV General: Alert, No acute distress Heart: Normal S1, Normal S2 Lungs: Clear Abdomen: Soft, Other (TF infusing) Extremities: No clubbing, No cyanosis, No edema Skin: No significant lesion, Other (healing rash and excoriations on Left lower extremity. No obvious petechiae) Labs LABS Laboratory Tests Test 09/08/18 10:54 09/09/18 04:40 O2 Saturation 97 % (92-99) Arterial Blood pH 7.44 (7.35-7.45) Arterial Blood pCO2 at Patient Temp 36 mmHg (35-46) Arterial Blood pO2 at Patient Temp 120 mmHg (75-108) Arterial Blood HCO3 24 mmol/L (21-28) Arterial Blood Base Excess 0 mmol/L (-3-3) FiO2 40 White Blood Count 9.4 x10^3/uL (4.0-11.0) Red Blood Count 2.39 x10^6/uL (4.30-5.70) Hemoglobin 7.1 g/dL (13.0-17.5) Hematocrit 20.6 % (39.0-53.0) Mean Corpuscular Volume 86 fL (79-100) Mean Corpuscular Hemoglobin 30 pg (25-35) Mean Corpuscular Hemoglobin Concent 35 g/dL (31-37) Red Cell Distribution Width 18.7 % (11.5-14.5) Platelet Count 345 x10^3/uL (140-400) Neutrophils (%) (Auto) 58 % (31-73) Lymphocytes (%) (Auto) 26 % (24-48) Monocytes (%) (Auto) 14 % (0-9) Eosinophils (%) (Auto) 1 % (0-3) Basophils (%) (Auto) 1 % (0-3) Neutrophils # (Auto) 5.5 x10^3uL (1.8-7.7) Lymphocytes # (Auto) 2.5 x10^3/uL (1.0-4.8) Monocytes # (Auto) 1.3 x10^3/uL (0.0-1.1) Eosinophils # (Auto) 0.1 x10^3/uL (0.0-0.7) Basophils # (Auto) 0.1 x10^3/uL (0.0-0.2) Sodium Level 136 mmol/L (136-145) Potassium Level 4.4 mmol/L (3.5-5.1) Chloride Level 95 mmol/L (98-107) Carbon Dioxide Level 22 mmol/L (21-32) Anion Gap 19 (6-14) Blood Urea Nitrogen 92 mg/dL (8-26) Creatinine 8.2 mg/dL (0.7-1.3) Estimated GFR (Cockcroft-Gault) 6.9 BUN/Creatinine Ratio 11 (6-20) Glucose Level 115 mg/dL (70-99) Calcium Level 6.8 mg/dL (8.5-10.1) Total Bilirubin 0.8 mg/dL (0.2-1.0) Aspartate Amino Transf (AST/SGOT) 40 U/L (15-37) Alanine Aminotransferase (ALT/SGPT) 32 U/L (16-63) Alkaline Phosphatase 116 U/L (46-116) Total Protein 6.4 g/dL (6.4-8.2) Albumin 2.0 g/dL (3.4-5.0) Albumin/Globulin Ratio 0.5 (1.0-1.7) Assessment and Plan Assessmemt and Plan Problems Medical Problems: (1) Acute renal failure Status: Acute Comment Review of Relevant I have reviewed the following items gera (where applicable) has been applied. Labs Laboratory Tests Test 09/08/18 06:15 09/08/18 07:25 09/08/18 10:54 09/09/18 04:40 White Blood Count 6.5 x10^3/uL (4.0-11.0) 9.4 x10^3/uL (4.0-11.0) Red Blood Count 2.25 x10^6/uL (4.30-5.70) 2.39 x10^6/uL (4.30-5.70) Hemoglobin 6.5 g/dL (13.0-17.5) 7.1 g/dL (13.0-17.5) Hematocrit 19.3 % (39.0-53.0) 20.6 % (39.0-53.0) Mean Corpuscular Volume 86 fL (79-100) 86 fL (79-100) Mean Corpuscular Hemoglobin 29 pg (25-35) 30 pg (25-35) Mean Corpuscular Hemoglobin Concent 34 g/dL (31-37) 35 g/dL (31-37) Red Cell Distribution Width 19.1 % (11.5-14.5) 18.7 % (11.5-14.5) Platelet Count 287 x10^3/uL (140-400) 345 x10^3/uL (140-400) Neutrophils (%) (Auto) 51 % (31-73) 58 % (31-73) Lymphocytes (%) (Auto) 32 % (24-48) 26 % (24-48) Monocytes (%) (Auto) 15 % (0-9) 14 % (0-9) Eosinophils (%) (Auto) 2 % (0-3) 1 % (0-3) Basophils (%) (Auto) 1 % (0-3) 1 % (0-3) Neutrophils # (Auto) 3.3 x10^3uL (1.8-7.7) 5.5 x10^3uL (1.8-7.7) Lymphocytes # (Auto) 2.0 x10^3/uL (1.0-4.8) 2.5 x10^3/uL (1.0-4.8) Monocytes # (Auto) 1.0 x10^3/uL (0.0-1.1) 1.3 x10^3/uL (0.0-1.1) Eosinophils # (Auto) 0.1 x10^3/uL (0.0-0.7) 0.1 x10^3/uL (0.0-0.7) Basophils # (Auto) 0.0 x10^3/uL (0.0-0.2) 0.1 x10^3/uL (0.0-0.2) Sodium Level 137 mmol/L (136-145) 136 mmol/L (136-145) Potassium Level 4.3 mmol/L (3.5-5.1) 4.4 mmol/L (3.5-5.1) Chloride Level 97 mmol/L (98-107) 95 mmol/L (98-107) Carbon Dioxide Level 24 mmol/L (21-32) 22 mmol/L (21-32) Anion Gap 16 (6-14) 19 (6-14) Blood Urea Nitrogen 64 mg/dL (8-26) 92 mg/dL (8-26) Creatinine 5.9 mg/dL (0.7-1.3) 8.2 mg/dL (0.7-1.3) Estimated GFR (Cockcroft-Gault) 10.1 6.9 BUN/Creatinine Ratio 11 (6-20) 11 (6-20) Glucose Level 116 mg/dL (70-99) 115 mg/dL (70-99) Calcium Level 7.1 mg/dL (8.5-10.1) 6.8 mg/dL (8.5-10.1) Total Bilirubin 0.9 mg/dL (0.2-1.0) 0.8 mg/dL (0.2-1.0) Aspartate Amino Transf (AST/SGOT) 42 U/L (15-37) 40 U/L (15-37) Alanine Aminotransferase (ALT/SGPT) 30 U/L (16-63) 32 U/L (16-63) Alkaline Phosphatase 121 U/L (46-116) 116 U/L (46-116) Total Protein 6.4 g/dL (6.4-8.2) 6.4 g/dL (6.4-8.2) Albumin 2.0 g/dL (3.4-5.0) 2.0 g/dL (3.4-5.0) Albumin/Globulin Ratio 0.5 (1.0-1.7) 0.5 (1.0-1.7) O2 Saturation 97 % (92-99) 97 % (92-99) Arterial Blood pH 7.45 (7.35-7.45) 7.44 (7.35-7.45) Arterial Blood pCO2 at Patient Temp 35 mmHg (35-46) 36 mmHg (35-46) Arterial Blood pO2 at Patient Temp 117 mmHg (75-108) 120 mmHg (75-108) Arterial Blood HCO3 24 mmol/L (21-28) 24 mmol/L (21-28) Arterial Blood Base Excess 0 mmol/L (-3-3) 0 mmol/L (-3-3) FiO2 35 40 Laboratory Tests Test 09/08/18 10:54 09/09/18 04:40 O2 Saturation 97 % (92-99) Arterial Blood pH 7.44 (7.35-7.45) Arterial Blood pCO2 at Patient Temp 36 mmHg (35-46) Arterial Blood pO2 at Patient Temp 120 mmHg (75-108) Arterial Blood HCO3 24 mmol/L (21-28) Arterial Blood Base Excess 0 mmol/L (-3-3) FiO2 40 White Blood Count 9.4 x10^3/uL (4.0-11.0) Red Blood Count 2.39 x10^6/uL (4.30-5.70) Hemoglobin 7.1 g/dL (13.0-17.5) Hematocrit 20.6 % (39.0-53.0) Mean Corpuscular Volume 86 fL (79-100) Mean Corpuscular Hemoglobin 30 pg (25-35) Mean Corpuscular Hemoglobin Concent 35 g/dL (31-37) Red Cell Distribution Width 18.7 % (11.5-14.5) Platelet Count 345 x10^3/uL (140-400) Neutrophils (%) (Auto) 58 % (31-73) Lymphocytes (%) (Auto) 26 % (24-48) Monocytes (%) (Auto) 14 % (0-9) Eosinophils (%) (Auto) 1 % (0-3) Basophils (%) (Auto) 1 % (0-3) Neutrophils # (Auto) 5.5 x10^3uL (1.8-7.7) Lymphocytes # (Auto) 2.5 x10^3/uL (1.0-4.8) Monocytes # (Auto) 1.3 x10^3/uL (0.0-1.1) Eosinophils # (Auto) 0.1 x10^3/uL (0.0-0.7) Basophils # (Auto) 0.1 x10^3/uL (0.0-0.2) Sodium Level 136 mmol/L (136-145) Potassium Level 4.4 mmol/L (3.5-5.1) Chloride Level 95 mmol/L (98-107) Carbon Dioxide Level 22 mmol/L (21-32) Anion Gap 19 (6-14) Blood Urea Nitrogen 92 mg/dL (8-26) Creatinine 8.2 mg/dL (0.7-1.3) Estimated GFR (Cockcroft-Gault) 6.9 BUN/Creatinine Ratio 11 (6-20) Glucose Level 115 mg/dL (70-99) Calcium Level 6.8 mg/dL (8.5-10.1) Total Bilirubin 0.8 mg/dL (0.2-1.0) Aspartate Amino Transf (AST/SGOT) 40 U/L (15-37) Alanine Aminotransferase (ALT/SGPT) 32 U/L (16-63) Alkaline Phosphatase 116 U/L (46-116) Total Protein 6.4 g/dL (6.4-8.2) Albumin 2.0 g/dL (3.4-5.0) Albumin/Globulin Ratio 0.5 (1.0-1.7) Microbiology 09/08/18 Blood Culture - Preliminary, Resulted NO GROWTH AFTER 1 DAY 08/29/18 CSF Gram Stain - Final, Complete 08/27/18 Stool Culture - Final, Complete 08/27/18 Stool Culture Result 1 (LOTUS) - Final, Complete 08/27/18 Campylobacter Antigen Assay - Final, Complete 08/27/18 Campylobactor Result 1 - Final, Complete 08/27/18 Shiga Toxin Test - Final, Complete 09/05/18 - Final, Complete 09/05/18 - Final, Complete 09/05/18 - Final, Complete 09/05/18 Gram Stain Evaluation - Final, Complete 09/05/18 Sputum Culture - Final, Complete 09/05/18 Sputum Result 1 - Final, Complete 09/04/18 Urine Culture - Final, Complete 09/04/18 Urine Culture Result 1 (LOTUS) - Final, Complete Medications Current Medications Sodium Chloride 1,000 ml @ 1,000 mls/hr 1X ONCE IV Last administered on 08/25/18at 20:38; Start 08/25/18 at 19:15; Stop 08/25/18 at 20:14; Status DC Ibuprofen (Motrin) 600 mg 1X ONCE PO Last administered on 08/25/18at 20:38; Start 08/25/18 at 19:45; Stop 08/25/18 at 19:49; Status DC Sodium Chloride 1,000 ml @ 1,000 mls/hr 1X ONCE IV Last administered on 08/25/18at 20:30; Start 08/25/18 at 20:30; Stop 08/25/18 at 21:29; Status DC Ceftriaxone Sodium (Rocephin) 1 gm 1X ONCE IVP Last administered on 08/25/18at 20:36; Start 08/25/18 at 20:30; Stop 08/25/18 at 20:31; Status DC Vancomycin HCl 2 gm/Sodium Chloride 500 ml @ 250 mls/hr 1X ONCE IV Last administered on 08/25/18at 23:10; Start 08/25/18 at 21:30; Stop 08/25/18 at 23:29; Status DC Sodium Chloride 1,000 ml @ 1,000 mls/hr 1X ONCE IV Last administered on 08/25/18at 23:51; Start 08/25/18 at 21:00; Stop 08/25/18 at 21:59; Status DC Piperacillin Sod/ Tazobactam Sod 4.5 gm/Sodium Chloride 100 ml @ 200 mls/hr 1X ONCE IV ; Start 08/25/18 at 21:15; Stop 08/25/18 at 21:44; Status DC Aztreonam (Azactam) 2 gm 1X ONCE IVP Last administered on 08/25/18at 21:15; Start 08/25/18 at 21:15; Stop 08/25/18 at 21:16; Status DC Magnesium Sulfate 50 ml @ 25 mls/hr 1X ONCE IV Last administered on 08/25/18at 23:51; Start 08/25/18 at 21:15; Stop 08/25/18 at 23:14; Status DC Ondansetron HCl (Zofran) 4 mg PRN Q8HRS PRN IV NAUSEA/VOMITING; Start 08/25/18 at 21:15; Stop 08/26/18 at 21:14; Status DC Acetaminophen (Tylenol) 650 mg PRN Q4HRS PRN PO FEVER; Start 08/25/18 at 21:15; Stop 08/26/18 at 21:14; Status DC Sodium Chloride 1,000 ml @ 125 mls/hr 1X ONCE IV Last administered on at 23:09; Start 08/25/18 at 21:15; Stop 08/26/18 at 05:14; Status DC Daptomycin 610 mg/ Sodium Chloride 50 ml @ 100 mls/hr QODAY IV Last administered on 08/27/18at 08:59; Start 08/27/18 at 09:00; Stop 08/28/18 at 15:40; Status DC Meropenem 500 mg/ Sodium Chloride 50 ml @ 100 mls/hr 1X ONCE IV Last administered on 08/25/18at 22:12; Start 08/25/18 at 22:00; Stop 08/25/18 at 22:29; Status DC Doxycycline Hyclate 100 mg/ Dextrose 100 ml @ 50 mls/hr Q12HR IV Last administered on 09/03/18at 22:11; Start 08/26/18 at 09:00; Stop 09/04/18 at 08:11; Status DC Meropenem 500 mg/ Sodium Chloride 50 ml @ 100 mls/hr DAILY IV Last ad ministered on 08/29/18at 10:13; Start 08/26/18 at 09:00; Stop 08/30/18 at 08:17; Status DC Sodium Chloride (Normal Saline Flush) 10 ml QSHIFT PRN IV AFTER MEDS AND BLOOD DRAWS; Start 08/26/18 at 09:15 Norepinephrine Bitartrate 250 ml @ 0 mls/hr CONT PRN IV PER PROTOCOL Last administered on 08/27/18at 10:21; Start 08/26/18 at 09:15; Stop 08/30/18 at 17:20; Status DC Famotidine (Pepcid) 20 mg DAILY PO Last administered on 08/27/18at 08:14; Start 08/26/18 at 12:00; Stop 08/27/18 at 14:36; Status DC Sodium Chloride 1,000 ml @ 1,000 mls/hr Q1H PRN IV hypotension; Start 08/26/18 at 11:51; Stop 08/26/18 at 17:50; Status DC Sodium Chloride (Normal Saline Flush) 10 ml 1X PRN PRN IV AP catheter pack; Start 08/26/18 at 12:00; Stop 08/27/18 at 11:59; Status DC Sodium Chloride (Normal Saline Flush) 10 ml 1X PRN PRN IV SPORTS MEDIA catheter pack; Start 08/26/18 at 12:00; Stop 08/27/18 at 11:59; Status DC Sodium Chloride 1,000 ml @ 400 mls/hr Q2H30M PRN IV PATENCY; Start 08/26/18 at 11:51; Stop 08/26/18 at 23:50; Status DC Info (PHARMACY MONITORING -- do not chart) 1 each PRN DAILY PRN MC SEE COMMENTS; Start 08/26/18 at 12:00; Status UNV Info (PHARMACY MONITORING -- do not chart) 1 each PRN DAILY PRN MC SEE COMMENTS; Start 08/26/18 at 12:00; Stop 09/01/18 at 10:59; Status DC Lidocaine/Sodium Bicarbonate (Buffered Lidocaine 1%) 4 ml 1X ONCE INJ Last administered on 08/26/18at 12:45; Start 08/26/18 at 12:45; Stop 08/26/18 at 12:48; Status DC Heparin Sodium (Porcine) (Heparin Sodium) 2,500 unit 1X ONCE INT CAT Last admi nistered on 08/26/18at 12:45; Start 08/26/18 at 12:45; Stop 08/26/18 at 12:48; Status DC Lidocaine/Sodium Bicarbonate (Buffered Lidocaine 1%) 3 ml STK-MED ONCE .ROUTE ; Start 08/26/18 at 12:49; Stop 08/26/18 at 12:50; Status DC Heparin Sodium (Porcine) (Heparin Sodium) 10,000 unit STK-MED ONCE .ROUTE ; Start 08/26/18 at 12:49; Stop 08/26/18 at 12:50; Status DC Lactobacillus Rhamnosus (Culturelle) 1 cap BID PO Last administered on 09/08/18at 09:34; Start 08/26/18 at 21:00; Stop 09/08/18 at 10:55; Status DC Acetaminophen (Tylenol) 325 mg STK-MED ONCE PO ; Start 08/27/18 at 00:43; Stop 08/27/18 at 00:44; Status DC Sodium Chloride 1,000 ml @ 1,000 mls/hr 1X ONCE IV Last administered on 08/27/18at 11:05; Start 08/27/18 at 10:30; Stop 08/27/18 at 11:29; Status DC Sodium Chloride 1,000 ml @ 1,000 mls/hr Q1H PRN IV hypotension; Start 08/27/18 at 11:28; Stop 08/27/18 at 17:27; Status DC Albumin Human 200 ml @ 200 mls/hr 1X PRN PRN IV Hypotension; Start 08/27/18 at 11:30; Stop 08/27/18 at 17:29; Status DC Sodium Chloride (Normal Saline Flush) 10 ml 1X PRN PRN IV AP catheter pack; Start 08/27/18 at 11:30; Stop 08/28/18 at 11:29; Status DC Sodium Chloride (Normal Saline Flush) 10 ml 1X PRN PRN IV SPORTS MEDIA catheter pack; Start 08/27/18 at 11:30; Stop 08/28/18 at 11:29; Status DC Sodium Chloride 1,000 ml @ 400 mls/hr Q2H30M PRN IV PATENCY; Start 08/27/18 at 11:28; Stop 08/27/18 at 23:27; Status DC Info (PHARMACY MONITORING -- do not chart) 1 each PRN DAILY PRN MC SEE COMMENTS; Start 08/27/18 at 11:30; Status UNV Info (PHARMACY MONITORING -- do not chart) 1 each PRN DAILY PRN MC SEE COMMENTS; Start 08/27/18 at 11:30; Status UNV Famotidine (Pepcid) 20 mg Q48H PO ; Start 08/29/18 at 09:00; Stop 08/29/18 at 11:29; Status DC Acetaminophen (Tylenol) 650 mg PRN Q6HRS PRN PO mild pain/fever; Start 08/27/18 at 21:15 Acetaminophen (Tylenol Supp) 650 mg PRN Q6HRS PRN MI MILD PAIN / TEMP Last adm inistered on 09/02/18at 01:18; Start 08/27/18 at 21:15 Fentanyl Citrate (Fentanyl 2ml Vial) 25 mcg 1X ONCE IV Last administered on 08/28/18at 08:54; Start 08/28/18 at 08:45; Stop 08/28/18 at 08:47; Status DC Lidocaine/Sodium Bicarbonate (Buffered Lidocaine 1%) 3 ml STK-MED ONCE .ROUTE ; Start 08/28/18 at 09:55; Stop 08/28/18 at 09:56; Status DC Lidocaine HCl (Glydo (Lidocaine) Jelly) 1 meng 1X STAT MM Last administered on 08/28/18at 10:16; Start 08/28/18 at 10:16; Stop 08/28/18 at 10:19; Status DC Benzocaine (Hurricaine One) 1 spray 1X STAT MM Last administered on 08/28/18at 10:16; Start 08/28/18 at 10:16; Stop 08/28/18 at 10:19; Status DC Lidocaine/Sodium Bicarbonate (Buffered Lidocaine 1%) 3 ml 1X ONCE INJ ; Start 08/28/18 at 10:30; Stop 08/28/18 at 10:31; Status DC Haloperidol Lactate (Haldol Inj) 5 mg PRN Q6HRS PRN IVP AGITATION Last administered on 09/06/18at 05:53; Start 08/28/18 at 12:00 Fentanyl Citrate (Fentanyl 2ml Vial) 50 mcg PRN Q4HRS PRN IV PAIN Last administered on 08/28/18at 21:44; Start 08/28/18 at 15:30; Stop 09/05/18 at 02:11; Status DC Sodium Chloride 1,000 ml @ 1,000 mls/hr Q1H PRN IV hypotension; Start 08/28/18 at 14:00; Stop 08/28/18 at 19:59; Status DC Albumin Human 200 ml @ 200 mls/hr 1X PRN PRN IV Hypotension Last administered on 08/28/18at 14:50; Start 08/28/18 at 14:00; Stop 09/03/18 at 18:17; Status DC Sodium Chloride 1,000 ml @ 400 mls/hr Q2H30M PRN IV PATENCY; Start 08/28/18 at 14:00; Stop 08/29/18 at 01:59; Status DC Info (PHARMACY MONITORING -- do not chart) 1 each PRN DAILY PRN MC SEE COMMENTS; Start 08/28/18 at 15:30; Status UNV Info (PHARMACY MONITORING -- do not chart) 1 each PRN DAILY PRN MC SEE COMMENTS; Start 08/28/18 at 15:30; Status UNV Daptomycin 610 mg/ Sodium Chloride 50 ml @ 100 mls/hr Q48H IV ; Start 08/30/18 at 16:00; Stop 08/30/18 at 16:00; Status DC Famotidine (Pepcid Vial) 20 mg QHS IVP Last administered on 08/31/18at 20:59; Start 08/29/18 at 21:00; Stop 09/01/18 at 11:00; Status DC Acyclovir Sodium 340 mg/Dextrose 106.8 ml @ 106.8 mls/ hr Q12HR IV Last administered on 09/01/18at 11:05; Start 08/30/18 at 09:00; Stop 09/01/18 at 13:37; Status DC Sodium Chloride 1,000 ml @ 1,000 mls/hr Q1H PRN IV hypotension; Start 08/30/18 at 11:02; Stop 08/30/18 at 17:01; Status DC Sodium Chloride 1,000 ml @ 400 mls/hr Q2H30M PRN IV PATENCY; Start 08/30/18 at 11:02; Stop 08/30/18 at 23:01; Status DC Info (PHARMACY MONITORING -- do not chart) 1 each PRN DAILY PRN MC SEE COMMENTS; Start 08/30/18 at 11:15; Status UNV Info (PHARMACY MONITORING -- do not chart) 1 each PRN DAILY PRN MC SEE COMMENTS; Start 08/30/18 at 11:15; Status UNV Info (Tpn Per Pharmacy) 1 each PRN DAILY PRN MC SEE COMMENTS Last administered on 09/03/18at 10:53; Start 08/30/18 at 12:45; Stop 09/04/18 at 12:50; Status DC Sodium Chloride 90 meq/Potassium Chloride 50 meq/ Potassium Phosphate 3 mmol/ Magnesium Sulfate 10 meq/Calcium Gluconate 10 meq/ Multivitamins 10 ml/Chromium/ Copper/Manganese/ Seleni/Zn 1 ml/ Total Parenteral Nutrition/Amino Acids/Dextrose/ Fat Emulsion Intravenous 1,512 ml @ 63 mls/hr TPN CONT IV Last administered on 08/30/18at 21:40; Start 08/30/18 at 22:00; Stop 08/31/18 at 21:59; Status DC Ondansetron HCl (Zofran) 4 mg PRN Q6HRS PRN IV NAUSEA/VOMITING; Start 08/31/18 at 08:00 Haloperidol (Haldol) 2 mg PRN QID PRN PO AGITATION; Start 08/31/18 at 08:00; Stop 08/31/18 at 12:43; Status DC Haloperidol Lactate (HALDOL 2mg ORAL CONC) 2 mg PRN QID PRN PO AGITATION; Start 08/31/18 at 12:43 Sodium Chloride 90 meq/Potassium Chloride 50 meq/ Potassium Phosphate 5 mmol/ Magnesium Sulfate 3 meq/Calcium Gluconate 10 meq/ Multivitamins 10 ml/Chromium/ Copper/Manganese/ Seleni/Zn 1 ml/ Total Parenteral Nutrition/Amino Acids/Dextrose 1,512 ml @ 63 mls/hr TPN CONT IV Last administered on 08/31/18at 20:59; Start 08/31/18 at 22:00; Stop 09/01/18 at 21:59; Status DC Propofol 100 ml @ As Directed STK-MED ONCE IV ; Start 08/31/18 at 22:45; Stop 08/31/18 at 22:46; Status DC Succinylcholine Chloride (Anectine) 200 mg STK-MED ONCE .ROUTE ; Start 08/31/18 at 22:46; Stop 08/31/18 at 22:47; Status DC Atropine Sulfate (ATROPINE 1mg SYRINGE) 1 mg STK-MED ONCE .ROUTE ; Start 08/31/18 at 22:58; Stop 08/31/18 at 22:59; Status DC Fentanyl Citrate 30 ml @ 0 mls/hr CONT PRN IV SEE PROTOCOL Last administered on 09/06/18at 10:39; Start 09/01/18 at 00:00; Stop 09/06/18 at 10:59; Status DC Propofol 100 ml @ 0 mls/hr CONT PRN IV SEE PROTOCOL Last administered on 09/06/18at 08:14; Start 09/01/18 at 00:00; Stop 09/06/18 at 10:59; Status DC Chlorhexidine Gluconate (Peridex) 15 ml BID MM Last administered on 09/07/18at 21:21; Start 09/01/18 at 09:00; Stop 09/08/18 at 08:04; Status DC Midazolam HCl 100 ml @ 0 mls/hr CONT PRN IV SEE PROTOCOL; Start 09/01/18 at 00:00; Stop 09/08/18 at 11:30; Status DC Albuterol/ Ipratropium (Duoneb) 3 ml RTQID NEB Last administered on 09/08/18at 20:28; Start 09/01/18 at 08:00 Albuterol/ Ipratropium (Duoneb) 3 ml 1X ONCE NEB Last administered on at 01:10; Start 09/01/18 at 01:00; Stop 09/01/18 at 01:01; Status DC Succinylcholine Chloride (Anectine) 200 mg 1X ONCE IV Last administered on 08/31/18at 23:04; Start 09/01/18 at 01:15; Stop 09/01/18 at 01:16; Status DC Sodium Chloride 1,000 ml @ 1,000 mls/hr Q1H PRN IV hypotension; Start 09/01/18 at 07:00; Stop 09/01/18 at 12:59; Status DC Sodium Chloride (Normal Saline Flush) 10 ml 1X PRN PRN IV AP catheter pack; Start 09/01/18 at 07:00; Stop 09/02/18 at 06:59; Status DC Sodium Chloride (Normal Saline Flush) 10 ml 1X PRN PRN IV [employer] catheter pack; Start 09/01/18 at 07:00; Stop 09/02/18 at 06:59; Status DC Sodium Chloride 1,000 ml @ 400 mls/hr Q2H30M PRN IV PATENCY; Start 09/01/18 at 07:00; Stop 09/01/18 at 18:59; Status DC Info (PHARMACY MONITORING -- do not chart) 1 each PRN DAILY PRN MC SEE COMMENTS; Start 09/01/18 at 11:00; Status Cancel Info (PHARMACY MONITORING -- do not chart) 1 each PRN DAILY PRN MC SEE COMMENTS; Start 09/01/18 at 11:00; Status Cancel Famotidine (Pepcid Vial) 20 mg Q48H IVP Last administered on 09/07/18at 21:21; Start 09/03/18 at 21:00 Sodium Chloride 90 meq/Potassium Chloride 50 meq/ Potassium Phosphate 10 mmol/ Calcium Gluconate 10 meq/ Multivitamins 10 ml/Chromium/ Copper/Manganese/ Seleni/Zn 1 ml/ Total Parenteral Nutrition/Amino Acids/Dextrose 1,512 ml @ 63 mls/hr TPN CONT IV Last administered on 09/01/18at 22:11; Start 09/01/18 at 22 :00; Stop 09/02/18 at 21:59; Status DC Piperacillin Sod/ Tazobactam Sod 2.25 gm/Sodium Chloride 50 ml @ 100 mls/hr Q6HRS IV Last administered on 09/09/18at 06:16; Start 09/01/18 at 14:00 Sodium Chloride 110 meq/Potassium Chloride 50 meq/ Potassium Phosphate 10 mmol/ Calcium Gluconate 10 meq/ Multivitamins 10 ml/Chromium/ Copper/Manganese/ Seleni/Zn 1 ml/ Magnesium Sulfate 3 meq/Total Parenteral Nutrition/Amino Acids/Dextrose 1,512 ml @ 63 mls/hr TPN CONT IV Last administered on 09/02/18at 22:13; Start 09/02/18 at 22:00; Stop 09/03/18 at 21:59; Status DC Darbepoetin Phil (Aranesp) 100 mcg [id number] SQ Last administered on 09/03/18at 22:11; Start 09/03/18 at 21:00 Sodium Chloride 130 meq/Potassium Acetate 20 meq/ Calcium Gluconate 10 meq/ Multivitamins 10 ml/Chromium/ Copper/Manganese/ Seleni/Zn 1 ml/ Magnesium Sulfate 3 meq/Total Parenteral Nutrition/Amino Acids/Dextrose 1,512 ml @ 63 mls/hr TPN CONT IV Last administered on 09/03/18at 22:12; Start 09/03/18 at 22:00; Stop 09/04/18 at 21:59; Status DC Albumin Human 200 ml @ 200 mls/hr 1X PRN PRN IV Hypotension; Start 09/03/18 at 10:00; Stop 09/03/18 at 21:00; Status DC Sodium Chloride (Normal Saline Flush) 10 ml 1X PRN PRN IV AP catheter pack; Start 09/03/18 at 10:00; Stop 09/03/18 at 21:00; Status DC Sodium Chloride (Normal Saline Flush) 10 ml 1X PRN PRN IV SPORTS MEDIA catheter pack; Start 09/03/18 at 10:00; Stop 09/03/18 at 21:00; Status DC Sodium Chloride 1,000 ml @ 400 mls/hr Q2H30M PRN IV PATENCY; Start 09/03/18 at 10:00; Stop 09/03/18 at 21:59; Status DC Info (PHARMACY MONITORING -- do not chart) 1 each PRN DAILY PRN MC SEE COMMENTS; Start 09/03/18 at 18:15; Status UNV Atropine Sulfate (ATROPINE 0.5mg SYRINGE) 0.5 mg STK-MED ONCE .ROUTE ; Start 08/31/18 at 08:06; Stop 09/04/18 at 08:07; Status DC Epinephrine HCl (EPINEPHrine SYRINGE) 3 mg STK-MED ONCE .ROUTE ; Start 08/31/18 at 08:06; Stop 09/04/18 at 08:07; Status DC Sodium Bicarbonate (Sodium Bicarb Adult 8.4% Syr) 100 meq STK-MED ONCE .ROUTE ; Start 08/31/18 at 08:06; Stop 09/04/18 at 08:07; Status DC Levofloxacin/ Dextrose 150 ml @ 100 mls/hr QODAY IV Last administered on 09/06/18at 10:28; Start 09/04/18 at 09:00; Stop 09/07/18 at 07:52; Status DC Sodium Chloride 1,000 ml @ 1,000 mls/hr Q1H PRN IV hypotension; Start 09/04/18 at 08:23; Stop 09/04/18 at 14:24; Status DC Albumin Human 200 ml @ 200 mls/hr 1X PRN PRN IV Hypotension; Start 09/04/18 at 08:30; Stop 09/04/18 at 14:29; Status DC Sodium Chloride 1,000 ml @ 400 mls/hr Q2H30M PRN IV PATENCY; Start 09/04/18 at 08:23; Stop 09/04/18 at 20:22; Status DC Info (PHARMACY MONITORING -- do not chart) 1 each PRN DAILY PRN MC SEE COMMENTS; Start 09/04/18 at 08:30; Stop 09/05/18 at 08:55; Status DC Info (PHARMACY MONITORING -- do not chart) 1 each PRN DAILY PRN MC SEE COMMENTS; Start 09/04/18 at 08:30; Status UNV Linezolid/Dextrose 300 ml @ 300 mls/hr Q12HR IV Last administered on 09/08/18at 21:31; Start 09/05/18 at 09:30 Sodium Chloride 1,000 ml @ 1,000 mls/hr Q1H PRN IV hypotension; Start 09/05/18 at 08:51; Stop 09/05/18 at 14:50; Status DC Sodium Chloride (Normal Saline Flush) 10 ml 1X PRN PRN IV AP catheter pack; Start 09/05/18 at 09:00; Stop 09/06/18 at 08:59; Status DC Sodium Chloride (Normal Saline Flush) 10 ml 1X PRN PRN IV SP[employer]TS [employer]IA catheter pack; Start 09/05/18 at 09:00; Stop 09/06/18 at 08:59; Status DC Sodium Chloride 1,000 ml @ 400 mls/hr Q2H30M PRN IV PATENCY; Start 09/05/18 at 08:51; Stop 09/05/18 at 20:50; Status DC Info (PHARMACY MONITORING -- do not chart) 1 each PRN DAILY PRN MC SEE COMMENTS; Start 09/05/18 at 09:00; Stop 09/05/18 at 09:00; Status DC Info (PHARMACY MONITORING -- do not chart) 1 each PRN DAILY PRN MC SEE COMMENTS; Start 09/05/18 at 09:00; Status Cancel Fentanyl Citrate (Fentanyl 2ml Vial) 25 mcg PRN Q2HR PRN IV MODERATE PAIN Last administered on 09/08/18at 04:34; Start 09/06/18 at 11:00 Dexmedetomidine HCl 200 mcg/ Sodium Chloride 50 ml @ 0 mls/hr CONT PRN IV PER PROTOCOL; Start 09/06/18 at 11:00; Stop 09/08/18 at 08:03; Status DC Sodium Chloride 500 ml @ 500 mls/hr 1X PRN PRN IV SEE COMMENTS; Start 09/06/18 at 11:00 Atropine Sulfate (ATROPINE 0.5mg SYRINGE) 0.5 mg PRN Q5MIN PRN IV SEE COMMENTS; Start 09/06/18 at 11:00 Sodium Chloride 1,000 ml @ 1,000 mls/hr Q1H PRN IV hypotension; Start 09/06/18 at 11:52; Stop 09/06/18 at 17:51; Status DC Diphenhydramine HCl (Benadryl) 25 mg 1X PRN PRN IV ITCHING; Start 09/06/18 at 12:00; Stop 09/07/18 at 11:59; Status DC Diphenhydramine HCl (Benadryl) 25 mg 1X PRN PRN IV ITCHING; Start 09/06/18 at 12:00; Stop 09/07/18 at 11:59; Status DC Sodium Chloride 1,000 ml @ 400 mls/hr Q2H30M PRN IV PATENCY; Start 09/06/18 at 11:52; Stop 09/06/18 at 23:51; Status DC Info (PHARMACY MONITORING -- do not chart) 1 each PRN DAILY PRN MC SEE COMMENTS; Start 09/06/18 at 12:00; Stop 09/06/18 at 12:00; Status DC Micafungin Sodium 100 mg/Dextrose 100 ml @ 100 mls/hr Q24H IV Last administered on 09/08/18at 09:33; Start 09/07/18 at 08:30 Sodium Chloride 1,000 ml @ 1,000 mls/hr Q1H PRN IV hypotension; Start 09/07/18 at 16:29; Stop 09/07/18 at 22:28; Status DC Diphenhydramine HCl (Benadryl) 25 mg 1X PRN PRN IV ITCHING; Start 09/07/18 at 16:30; Stop 09/08/18 at 16:29; Status DC Diphenhydramine HCl (Benadryl) 25 mg 1X PRN PRN IV ITCHING; Start 09/07/18 at 16:30; Stop 09/08/18 at 16:29; Status DC Sodium Chloride 1,000 ml @ 400 mls/hr Q2H30M PRN IV PATENCY; Start 09/07/18 at 16:29; Stop 09/08/18 at 04:28; Status DC Info (PHARMACY MONITORING -- do not chart) 1 each PRN DAILY PRN MC SEE COMMENTS; Start 09/07/18 at 16:30 Active Scripts Active Potassium Chloride 20 Meq Tablet.er 20 Meq PO DAILY Orphenadrine Citrate 100 Mg Tablet.er 100 Mg PO Q12HR Anaprox Ds (Naproxen Sodium) 550 Mg Tablet 550 Mg PO Q12HR Reported Prednisone 20 Mg Tablet 1 Tab PO DAILY Hydrochlorothiazide Tablet (Hydrochlorothiazide) 12.5 Mg Tablet 12.5 Mg PO DAILY Shilpi Allergy (Fexofenadine Hcl) 180 Mg Tablet 1 Tab PO DAILY Vitals/I & O Vital Sign - Last 24 Hours 09/08/18 09/08/18 09/08/18 09/08/18 08:00 08:00 08:15 09:00 Temp 98.6 98.6 Pulse 72 85 Resp 20 20 B/P (MAP) 134/69 (90) 140/74 (96) Pulse Ox 100 100 100 O2 Delivery Mechanical Ventilator Ventilator Ventilator Ventilator 09/08/18 09/08/18 09/08/18 09/08/18 10:00 10:50 11:00 12:00 Pulse 84 84 Resp 18 24 B/P (MAP) 124/66 (85) 145/68 (93) Pulse Ox 99 97 99 O2 Delivery Ventilator CPAP TRIAL C-pp trial Nasal Cannula O2 Flow Rate 4.0 09/08/18 09/08/18 09/08/18 09/08/18 12:00 12:45 13:00 14:00 Temp 98.7 98.7 Pulse 86 88 82 Resp 26 24 24 B/P (MAP) 123/67 (85) 126/66 (86) 123/73 (90) Pulse Ox 96 96 97 98 O2 Delivery Nasal Cannula Nasal Cannula Nasal Cannula Nasal Cannula O2 Flow Rate 4.0 4.0 4.0 4.0 09/08/18 09/08/18 09/08/18 09/08/18 15:00 16:00 16:00 16:24 Temp 98.3 98.3 Pulse 82 80 Resp 20 20 B/P (MAP) 142/84 (103) 130/74 (92) Pulse Ox 99 98 96 O2 Delivery Nasal Cannula Nasal Cannula Nasal Cannula Nasal Cannula O2 Flow Rate 4.0 4.0 4.0 4.0 09/08/18 09/08/18 09/08/18 09/08/18 17:00 18:00 19:00 20:00 Pulse 80 83 81 81 Resp 22 20 20 20 B/P (MAP) 133/3 (46) 142/75 (97) 143/92 (109) 148/79 (102) Pulse Ox 99 98 98 98 O2 Delivery Nasal Cannula Nasal Cannula Nasal Cannula Nasal Cannula O2 Flow Rate 4.0 4.0 4.0 4.0 09/08/18 09/08/18 09/08/18 09/08/18 20:00 20:28 21:00 22:00 Pulse 79 78 Resp 20 20 B/P (MAP) 132/79 (96) 140/77 (98) Pulse Ox 96 98 98 O2 Delivery Mechanical Ventilator Nasal Cannula Nasal Cannula Nasal Cannula O2 Flow Rate 4.0 4.0 4.0 09/08/18 09/08/18 09/09/18 09/09/18 23:00 23:59 00:26 01:00 Pulse 84 80 85 Resp 20 16 16 B/P (MAP) 146/77 (100) 142/77 (98) 140/77 (98) Pulse Ox 99 99 97 O2 Delivery Nasal Cannula Nasal Cannula Mechanical Ventilator Nasal Cannula O2 Flow Rate 4.0 4.0 4.0 09/09/18 09/09/18 09/09/18 09/09/18 02:00 03:00 04:00 04:04 Temp 98.3 98.3 Pulse 85 78 86 Resp 16 16 16 B/P (MAP) 132/77 (95) 133/71 (91) 135/70 (91) Pulse Ox 97 97 99 O2 Delivery Nasal Cannula Nasal Cannula Mechanical Ventilator Nasal Cannula O2 Flow Rate 4.0 4.0 4.0 09/09/18 09/09/18 05:00 06:00 Pulse 84 78 Resp 20 16 B/P (MAP) 135/75 (95) 132/75 (94) Pulse Ox 99 99 O2 Delivery Nasal Cannula Nasal Cannula O2 Flow Rate 4.0 4.0 Intake and Output 09/08/18 09/08/18 09/09/18 14:59 22:59 06:59 Intake Total 800 ml 1198 ml 300 ml Output Total 20 ml 16 ml 40 ml Balance 780 ml 1182 ml 260 ml VIJAY BLEVINS MD Sep 09, 2018 07:44
[2018-09-09] MEDS: IPRATRPIUM/ALBUTEROL 0.5/2.5MG 3 ML NEBU. NEB SCH ×4 (08:10→20:04)
--- NOTE | 2018-09-09 08:23 | RAD ---
EXAM: CHEST 1 VIEW History: On ventilation COMPARISON: 09/08/2018 TECHNIQUE: Single portable radiograph of the chest Findings/impression: Interval removal of ET tube. The feeding tube is unchanged. Trace left pleural effusion with minimal prominent appearing interstitial lung markings likely minimal congestive changes unchanged.
--- NOTE | 2018-09-09 08:42 | PDOC ---
SUBJECTIVE ROS Stable OBJECTIVE Vital Signs Vital Signs Date Time Temp Pulse Resp B/P (MAP) Pulse Ox O2 Delivery O2 Flow Rate FiO2 09/09/18 08:10 98 Nasal Cannula 4.0 09/09/18 06:00 78 16 132/75 (94) 09/09/18 04:04 98.3 98.3 I & 0 Intake and Output 09/09/18 06:59 Intake Total 2298 ml Output Total 76 ml Balance 2222 ml IV Total 500 ml Tube Feeding 1593 ml Other 205 ml Output Urine Total 76 ml PHYSICAL EXAM Physical Exam GENERAL: Awake, On o2, HEENT: On O2 by NC NECK: Supple. LUNGS: Clear anteriorly HEART: S1 and S2. regular ABDOMEN: soft, Rectal tube in place : Waters in place EXTREMITIES: no edema SKIN: Warm NEUROLOGIC: Awake, DIAGNOSIS/ASSESSMENT Assessment & Plan RADHA/ATN- Requiring HD No renal recovery Last HD 09/07 , Currently labs stable, No emergent indication for HD today Dialysis cath removed, will need to be replaced in am E-lytes currently stable, BUN/Cr elevated, UOP inadequate , HD tomorrow Fungemia from 09/04. ID following Diarrhea, C. 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 -w/u negative for ehrlichia -RMSF neg, Encephalopathy waxing and waning etiology unclear MRI neg Anemia Hemochromatosis, followed by [facility] COMMENT/RELEVANT DATA Meds Current Medications Medications (Trade) Dose Ordered Sig/Noemi Start Time Stop Time Status Last Admin Dose Admin Acetaminophen (Tylenol Supp) 650 mg PRN Q6HRS PRN 08/27/18 21:15 09/02/18 01:18 650 MG Acetaminophen (Tylenol) 650 mg PRN Q6HRS PRN 08/27/18 21:15 Acyclovir Sodium 340 mg/Dextrose 106.8 ml @ 106.8 mls/ hr Q12HR 08/30/18 09:00 09/01/18 13:37 DC 09/01/18 11:05 106.8 MLS/HR Albumin Human 200 ml @ 200 mls/hr 1X PRN PRN 09/04/18 08:30 09/04/18 14:29 DC Albuterol/ Ipratropium (Duoneb) 3 ml 1X ONCE 09/01/18 01:00 09/01/18 01:01 DC 09/01/18 01:10 3 ML Atropine Sulfate (ATROPINE 0.5mg SYRINGE) 0.5 mg PRN Q5MIN PRN 09/06/18 11:00 Atropine Sulfate (ATROPINE 1mg SYRINGE) 1 mg STK-MED ONCE 08/31/18 22:58 08/31/18 22:59 DC Aztreonam (Azactam) 2 gm 1X ONCE 08/25/18 21:15 08/25/18 21:16 DC 08/25/18 21:15 2 GM Benzocaine (Hurricaine One) 1 spray 1X STAT 08/28/18 10:16 08/28/18 10:19 DC 08/28/18 10:16 1 SPRAY Ceftriaxone Sodium (Rocephin) 1 gm 1X ONCE 08/25/18 20:30 08/25/18 20:31 DC 08/25/18 20:36 1 GM Chlorhexidine Gluconate (Peridex) 15 ml BID 09/01/18 09:00 09/08/18 08:04 DC 09/07/18 21:21 15 ML Daptomycin 610 mg/ Sodium Chloride 50 ml @ 100 mls/hr Q48H 08/30/18 16:00 08/30/18 16:00 DC Darbepoetin Phil (Aranesp) 100 mcg WEEKLYHS 09/03/18 21:00 09/03/18 22:11 100 MCG Dexmedetomidine HCl 200 mcg/ Sodium Chloride 50 ml @ 0 mls/hr CONT PRN 09/06/18 11:00 09/08/18 08:03 DC Diphenhydramine HCl (Benadryl) 25 mg 1X PRN PRN 09/07/18 16:30 09/08/18 16:29 DC Doxycycline Hyclate 100 mg/ Dextrose 100 ml @ 50 mls/hr Q12HR 08/26/18 09:00 09/04/18 08:11 DC 09/03/18 22:11 50 MLS/HR Epinephrine HCl (EPINEPHrine SYRINGE) 3 mg STK-MED ONCE 08/31/18 08:06 09/04/18 08:07 DC Famotidine (Pepcid Vial) 20 mg Q48H 09/03/18 21:00 09/07/18 21:21 20 MG Famotidine (Pepcid) 20 mg Q48H 08/29/18 09:00 08/29/18 11:29 DC Fentanyl Citrate (Fentanyl 2ml Vial) 25 mcg PRN Q2HR PRN 09/06/18 11:00 09/08/18 04:34 25 MCG Haloperidol (Haldol) 2 mg PRN QID PRN 08/31/18 08:00 08/31/18 12:43 DC Haloperidol Lactate (HALDOL 2mg ORAL CONC) 2 mg PRN QID PRN 08/31/18 12:43 Haloperidol Lactate (Haldol Inj) 5 mg PRN Q6HRS PRN 08/28/18 12:00 09/06/18 05:53 5 MG Heparin Sodium (Porcine) (Heparin Sodium) 10,000 unit STK-MED ONCE 08/26/18 12:49 08/26/18 12:50 DC Ibuprofen (Motrin) 600 mg 1X ONCE 08/25/18 19:45 08/25/18 19:49 DC 08/25/18 20:38 600 MG Info (PHARMACY MONITORING -- do not chart) 1 each PRN DAILY PRN 09/07/18 16:30 Info (Tpn Per Pharmacy) 1 each PRN DAILY PRN 08/30/18 12:45 09/04/18 12:50 DC 09/03/18 10:53 1 EACH Lactobacillus Rhamnosus (Culturelle) 1 cap BID 08/26/18 21:00 09/08/18 10:55 DC 09/08/18 09:34 1 CAP Levofloxacin/ Dextrose 150 ml @ 100 mls/hr QODAY 09/04/18 09:00 09/07/18 07:52 DC 09/06/18 10:28 100 MLS/HR Lidocaine HCl (Glydo (Lidocaine) Jelly) 1 meng 1X STAT 08/28/18 10:16 08/28/18 10:19 DC 08/28/18 10:16 1 MENG Lidocaine/Sodium Bicarbonate (Buffered Lidocaine 1%) 3 ml 1X ONCE 08/28/18 10:30 08/28/18 10:31 DC Linezolid/Dextrose 300 ml @ 300 mls/hr Q12HR 09/05/18 09:30 09/08/18 21:31 300 MLS/HR Magnesium Sulfate 50 ml @ 25 mls/hr 1X ONCE 08/25/18 21:15 08/25/18 23:14 DC 08/25/18 23:51 25 MLS/HR Meropenem 500 mg/ Sodium Chloride 50 ml @ 100 mls/hr DAILY 08/26/18 09:00 08/30/18 08:17 DC 08/29/18 10:13 100 MLS/HR Micafungin Sodium 100 mg/Dextrose 100 ml @ 100 mls/hr Q24H 09/07/18 08:30 09/08/18 09:33 100 MLS/HR Midazolam HCl 100 ml @ 0 mls/hr CONT PRN 09/01/18 00:00 09/08/18 11:30 DC Norepinephrine Bitartrate 250 ml @ 0 mls/hr CONT PRN 08/26/18 09:15 08/30/18 17:20 DC 08/27/18 10:21 1.88 MLS/HR Ondansetron HCl (Zofran) 4 mg PRN Q6HRS PRN 08/31/18 08:00 Piperacillin Sod/ Tazobactam Sod 2.25 gm/Sodium Chloride 50 ml @ 100 mls/hr Q6HRS 09/01/18 14:00 09/09/18 06:16 100 MLS/HR Piperacillin Sod/ Tazobactam Sod 4.5 gm/Sodium Chloride 100 ml @ 200 mls/hr 1X ONCE 08/25/18 21:15 08/25/18 21:44 DC Propofol 100 ml @ 0 mls/hr CONT PRN 09/01/18 00:00 09/06/18 10:59 DC 09/06/18 08:14 6.135 MLS/HR Sodium Bicarbonate (Sodium Bicarb Adult 8.4% Syr) 100 meq STK-MED ONCE 08/31/18 08:06 09/04/18 08:07 DC Sodium Chloride 1,000 ml @ 400 mls/hr Q2H30M PRN 09/07/18 16:29 09/08/18 04:28 DC Sodium Chloride (Normal Saline Flush) 10 ml 1X PRN PRN 09/05/18 09:00 09/06/18 08:59 DC Sodium Chloride 90 meq/Potassium Chloride 50 meq/ Potassium Phosphate 10 mmol/ Calcium Gluconate 10 meq/ Multivitamins 10 ml/Chromium/ Copper/Manganese/ Seleni/Zn 1 ml/ Total Parenteral Nutrition/Amino Acids/Dextrose 1,512 ml @ 63 mls/hr TPN CONT 09/01/18 22:00 09/02/18 21:59 DC 09/01/18 22:11 63 MLS/HR Sodium Chloride 90 meq/Potassium Chloride 50 meq/ Potassium Phosphate 3 mmol/ Magnesium Sulfate 10 meq/Calcium Gluconate 10 meq/ Multivitamins 10 ml/Chromium/ Copper/Manganese/ Seleni/Zn 1 ml/ Total Parenteral Nutrition/Amino Acids/Dextrose/ Fat Emulsion Intravenous 1,512 ml @ 63 mls/hr TPN CONT 08/30/18 22:00 08/31/18 21:59 DC 08/30/18 21:40 63 MLS/HR Sodium Chloride 90 meq/Potassium Chloride 50 meq/ Potassium Phosphate 5 mmol/ Magnesium Sulfate 3 meq/Calcium Gluconate 10 meq/ Multivitamins 10 ml/Chromium/ Copper/Manganese/ Seleni/Zn 1 ml/ Total Parenteral Nutrition/Amino Acids/Dextrose 1,512 ml @ 63 mls/hr TPN CONT 08/31/18 22:00 09/01/18 21:59 DC 08/31/18 20:59 63 MLS/HR Sodium Chloride 110 meq/Potassium Chloride 50 meq/ Potassium Phosphate 10 mmol/ Calcium Gluconate 10 meq/ Multivitamins 10 ml/Chromium/ Copper/Manganese/ Seleni/Zn 1 ml/ Magnesium Sulfate 3 meq/Total Parenteral Nutrition/Amino Acids/Dextrose 1,512 ml @ 63 mls/hr TPN CONT 09/02/18 22:00 09/03/18 21:59 DC 09/02/18 22:13 63 MLS/HR Sodium Chloride 130 meq/Potassium Acetate 20 meq/ Calcium Gluconate 10 meq/ Multivitamins 10 ml/Chromium/ Copper/Manganese/ Seleni/Zn 1 ml/ Magnesium Sulfate 3 meq/Total Parenteral Nutrition/Amino Acids/Dextrose 1,512 ml @ 63 mls/hr TPN CONT 09/03/18 22:00 09/04/18 21:59 DC 09/03/18 22:12 63 MLS/HR Succinylcholine Chloride (Anectine) 200 mg 1X ONCE 09/01/18 01:15 09/01/18 01:16 DC 08/31/18 23:04 200 MG Vancomycin HCl 2 gm/Sodium Chloride 500 ml @ 250 mls/hr 1X ONCE 08/25/18 21:30 08/25/18 23:29 DC 08/25/18 23:10 250 MLS/HR Lab Laboratory Tests Test 09/08/18 10:54 09/09/18 04:40 O2 Saturation 97 % (92-99) Arterial Blood pH 7.44 (7.35-7.45) Arterial Blood pCO2 at Patient Temp 36 mmHg (35-46) Arterial Blood pO2 at Patient Temp 120 mmHg (75-108) Arterial Blood HCO3 24 mmol/L (21-28) Arterial Blood Base Excess 0 mmol/L (-3-3) FiO2 40 White Blood Count 9.4 x10^3/uL (4.0-11.0) Red Blood Count 2.39 x10^6/uL (4.30-5.70) Hemoglobin 7.1 g/dL (13.0-17.5) Hematocrit 20.6 % (39.0-53.0) Mean Corpuscular Volume 86 fL (79-100) Mean Corpuscular Hemoglobin 30 pg (25-35) Mean Corpuscular Hemoglobin Concent 35 g/dL (31-37) Red Cell Distribution Width 18.7 % (11.5-14.5) Platelet Count 345 x10^3/uL (140-400) Neutrophils (%) (Auto) 58 % (31-73) Lymphocytes (%) (Auto) 26 % (24-48) Monocytes (%) (Auto) 14 % (0-9) Eosinophils (%) (Auto) 1 % (0-3) Basophils (%) (Auto) 1 % (0-3) Neutrophils # (Auto) 5.5 x10^3uL (1.8-7.7) Lymphocytes # (Auto) 2.5 x10^3/uL (1.0-4.8) Monocytes # (Auto) 1.3 x10^3/uL (0.0-1.1) Eosinophils # (Auto) 0.1 x10^3/uL (0.0-0.7) Basophils # (Auto) 0.1 x10^3/uL (0.0-0.2) Sodium Level 136 mmol/L (136-145) Potassium Level 4.4 mmol/L (3.5-5.1) Chloride Level 95 mmol/L (98-107) Carbon Dioxide Level 22 mmol/L (21-32) Anion Gap 19 (6-14) Blood Urea Nitrogen 92 mg/dL (8-26) Creatinine 8.2 mg/dL (0.7-1.3) Estimated GFR (Cockcroft-Gault) 6.9 BUN/Creatinine Ratio 11 (6-20) Glucose Level 115 mg/dL (70-99) Calcium Level 6.8 mg/dL (8.5-10.1) Total Bilirubin 0.8 mg/dL (0.2-1.0) Aspartate Amino Transf (AST/SGOT) 40 U/L (15-37) Alanine Aminotransferase (ALT/SGPT) 32 U/L (16-63) Alkaline Phosphatase 116 U/L (46-116) Total Protein 6.4 g/dL (6.4-8.2) Albumin 2.0 g/dL (3.4-5.0) Albumin/Globulin Ratio 0.5 (1.0-1.7) Results All relevant outside records, renal labs, imaging studies, telemetry/EKG's were reviewed. OG CHAVES MD Sep 09, 2018 08:42
[2018-09-09] MEDS: MICAFUNGIN 100 MG in IV DEXTROSE 5% 100ML 100 ML IV SCH (08:56)
--- NOTE | 2018-09-09 09:16 | PDOC ---
Infectious Disease Note Subjective Subjective No fevers last 48 hours s/p extubation yesterday, now on 3L O2 Tube feedings up to 65 ml/hr via NGT Ongoing diarrhea Denies work of breathing, pain, nausea ROS ROS per HPI Vital Sign Vital Signs Vital Signs Date Time Temp Pulse Resp B/P (MAP) Pulse Ox O2 Delivery O2 Flow Rate FiO2 09/09/18 08:10 98 Nasal Cannula 4.0 09/09/18 06:00 78 16 132/75 (94) 09/09/18 04:04 98.3 98.3 Physical Exam PHYSICAL EXAM GENERAL: Awake, calm, NAD HEENT: Pupils equal, NGT, oral cavity dry NECK: Supple. LUNGS: Clear anteriorly HEART: S1 and S2. regular ABDOMEN: + distention, soft, nontender, BS active, rectal tube in place : Waters in place EXTREMITIES: No gross edema, no cyanosis. SKIN: Warm, rash UEs fading NEUROLOGIC: Awake, nods appropriately to questions and follows commands PIV Labs Lab Laboratory Tests Test 09/08/18 10:54 09/09/18 04:40 O2 Saturation 97 % (92-99) Arterial Blood pH 7.44 (7.35-7.45) Arterial Blood pCO2 at Patient Temp 36 mmHg (35-46) Arterial Blood pO2 at Patient Temp 120 mmHg (75-108) Arterial Blood HCO3 24 mmol/L (21-28) Arterial Blood Base Excess 0 mmol/L (-3-3) FiO2 40 White Blood Count 9.4 x10^3/uL (4.0-11.0) Red Blood Count 2.39 x10^6/uL (4.30-5.70) Hemoglobin 7.1 g/dL (13.0-17.5) Hematocrit 20.6 % (39.0-53.0) Mean Corpuscular Volume 86 fL (79-100) Mean Corpuscular Hemoglobin 30 pg (25-35) Mean Corpuscular Hemoglobin Concent 35 g/dL (31-37) Red Cell Distribution Width 18.7 % (11.5-14.5) Platelet Count 345 x10^3/uL (140-400) Neutrophils (%) (Auto) 58 % (31-73) Lymphocytes (%) (Auto) 26 % (24-48) Monocytes (%) (Auto) 14 % (0-9) Eosinophils (%) (Auto) 1 % (0-3) Basophils (%) (Auto) 1 % (0-3) Neutrophils # (Auto) 5.5 x10^3uL (1.8-7.7) Lymphocytes # (Auto) 2.5 x10^3/uL (1.0-4.8) Monocytes # (Auto) 1.3 x10^3/uL (0.0-1.1) Eosinophils # (Auto) 0.1 x10^3/uL (0.0-0.7) Basophils # (Auto) 0.1 x10^3/uL (0.0-0.2) Sodium Level 136 mmol/L (136-145) Potassium Level 4.4 mmol/L (3.5-5.1) Chloride Level 95 mmol/L (98-107) Carbon Dioxide Level 22 mmol/L (21-32) Anion Gap 19 (6-14) Blood Urea Nitrogen 92 mg/dL (8-26) Creatinine 8.2 mg/dL (0.7-1.3) Estimated GFR (Cockcroft-Gault) 6.9 BUN/Creatinine Ratio 11 (6-20) Glucose Level 115 mg/dL (70-99) Calcium Level 6.8 mg/dL (8.5-10.1) Total Bilirubin 0.8 mg/dL (0.2-1.0) Aspartate Amino Transf (AST/SGOT) 40 U/L (15-37) Alanine Aminotransferase (ALT/SGPT) 32 U/L (16-63) Alkaline Phosphatase 116 U/L (46-116) Total Protein 6.4 g/dL (6.4-8.2) Albumin 2.0 g/dL (3.4-5.0) Albumin/Globulin Ratio 0.5 (1.0-1.7) CXR, 09/09 Findings/impression: Interval removal of ET tube. The feeding tube is unchanged. Trace left pleural effusion with minimal prominent appearing interstitial lung markings likely minimal congestive changes unchanged. Micro 09/04. BLOOD CULTURE Final YEAST IN 1 OF 2 BOTTLES OF A SINGLE SET DRAWN ON 09/04/18. CALLED TO [facility] VALDES IN ICU 09/07/18 AT 0815 BY Felton MEZA. CULTURE HAS BEEN SENT TO [facility] FOR FURTHER IDENTIFICATION. 09/08. BLOOD CULTURE Preliminary NO GROWTH AFTER 1 DAY Objective Assessment Fungemia from 09/04. ID/LOTUS pending; repeat BC 09/08 neg so far -Lines have been removed Recurrent fever, 09/04, better Diarrhea, C. 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 MRI neg -CSF pleocytosis, cultures and serologies negative -[place] IgG +, IgM neg, old exposure -HSV PCR neg -Arboviral panel not available -Enteroviral pcr not available RADHA (Recent Bactrim/ibuprofen), on HD Anemia Hemochromatosis, followed by [facility] Plan of Care Zyvox (09/05) Zosyn (09/01) and micafungin Repeat BC 09/08 neg so far Monitor labs/temp Supportive care D/w Dr. Cespedes, temp HD catheter placement on Monday D/w D/w nursing Critically ill Wean abx soon Attending Co-Sign Attending Co-Sign The patient was seen and interviewed as well as examined at the bedside. The chart was reviewed. The case was discussed. Agree with the plan of care. KISHA OLIVAS APRN Sep 09, 2018 09:16 LICO GRACE MD Sep 09, 2018 15:07
--- NOTE | 2018-09-09 11:42 | PDOC ---
PULMONARY PROGRESS NOTES Subjective intubated 08/31, EXTUBATED 09/08 FULLY RESPONSIVE Vitals Vital Signs Date Time Temp Pulse Resp B/P (MAP) Pulse Ox O2 Delivery O2 Flow Rate FiO2 09/09/18 08:10 98 Nasal Cannula 4.0 09/09/18 06:00 78 16 132/75 (94) 09/09/18 04:04 98.3 98.3 General: Alert, No acute distress Lungs: Clear Cardiovascular: S1, S2 Abdomen: Soft, Non-tender, Other (no mass) Extremities: Other (1+edema) Skin: Warm Labs Laboratory Tests Test 09/07/18 18:05 09/08/18 06:15 09/08/18 07:25 09/08/18 10:54 Clostridium difficile Toxin B Gene Negative (Negative) White Blood Count 6.5 x10^3/uL (4.0-11.0) Red Blood Count 2.25 x10^6/uL (4.30-5.70) Hemoglobin 6.5 g/dL (13.0-17.5) Hematocrit 19.3 % (39.0-53.0) Mean Corpuscular Volume 86 fL (79-100) Mean Corpuscular Hemoglobin 29 pg (25-35) Mean Corpuscular Hemoglobin Concent 34 g/dL (31-37) Red Cell Distribution Width 19.1 % (11.5-14.5) Platelet Count 287 x10^3/uL (140-400) Neutrophils (%) (Auto) 51 % (31-73) Lymphocytes (%) (Auto) 32 % (24-48) Monocytes (%) (Auto) 15 % (0-9) Eosinophils (%) (Auto) 2 % (0-3) Basophils (%) (Auto) 1 % (0-3) Neutrophils # (Auto) 3.3 x10^3uL (1.8-7.7) Lymphocytes # (Auto) 2.0 x10^3/uL (1.0-4.8) Monocytes # (Auto) 1.0 x10^3/uL (0.0-1.1) Eosinophils # (Auto) 0.1 x10^3/uL (0.0-0.7) Basophils # (Auto) 0.0 x10^3/uL (0.0-0.2) Sodium Level 137 mmol/L (136-145) Potassium Level 4.3 mmol/L (3.5-5.1) Chloride Level 97 mmol/L (98-107) Carbon Dioxide Level 24 mmol/L (21-32) Anion Gap 16 (6-14) Blood Urea Nitrogen 64 mg/dL (8-26) Creatinine 5.9 mg/dL (0.7-1.3) Estimated GFR (Cockcroft-Gault) 10.1 BUN/Creatinine Ratio 11 (6-20) Glucose Level 116 mg/dL (70-99) Calcium Level 7.1 mg/dL (8.5-10.1) Total Bilirubin 0.9 mg/dL (0.2-1.0) Aspartate Amino Transf (AST/SGOT) 42 U/L (15-37) Alanine Aminotransferase (ALT/SGPT) 30 U/L (16-63) Alkaline Phosphatase 121 U/L (46-116) Total Protein 6.4 g/dL (6.4-8.2) Albumin 2.0 g/dL (3.4-5.0) Albumin/Globulin Ratio 0.5 (1.0-1.7) O2 Saturation 97 % (92-99) 97 % (92-99) Arterial Blood pH 7.45 (7.35-7.45) 7.44 (7.35-7.45) Arterial Blood pCO2 at Patient Temp 35 mmHg (35-46) 36 mmHg (35-46) Arterial Blood pO2 at Patient Temp 117 mmHg (75-108) 120 mmHg (75-108) Arterial Blood HCO3 24 mmol/L (21-28) 24 mmol/L (21-28) Arterial Blood Base Excess 0 mmol/L (-3-3) 0 mmol/L (-3-3) FiO2 35 40 Test 09/09/18 04:40 White Blood Count 9.4 x10^3/uL (4.0-11.0) Red Blood Count 2.39 x10^6/uL (4.30-5.70) Hemoglobin 7.1 g/dL (13.0-17.5) Hematocrit 20.6 % (39.0-53.0) Mean Corpuscular Volume 86 fL (79-100) Mean Corpuscular Hemoglobin 30 pg (25-35) Mean Corpuscular Hemoglobin Concent 35 g/dL (31-37) Red Cell Distribution Width 18.7 % (11.5-14.5) Platelet Count 345 x10^3/uL (140-400) Neutrophils (%) (Auto) 58 % (31-73) Lymphocytes (%) (Auto) 26 % (24-48) Monocytes (%) (Auto) 14 % (0-9) Eosinophils (%) (Auto) 1 % (0-3) Basophils (%) (Auto) 1 % (0-3) Neutrophils # (Auto) 5.5 x10^3uL (1.8-7.7) Lymphocytes # (Auto) 2.5 x10^3/uL (1.0-4.8) Monocytes # (Auto) 1.3 x10^3/uL (0.0-1.1) Eosinophils # (Auto) 0.1 x10^3/uL (0.0-0.7) Basophils # (Auto) 0.1 x10^3/uL (0.0-0.2) Sodium Level 136 mmol/L (136-145) Potassium Level 4.4 mmol/L (3.5-5.1) Chloride Level 95 mmol/L (98-107) Carbon Dioxide Level 22 mmol/L (21-32) Anion Gap 19 (6-14) Blood Urea Nitrogen 92 mg/dL (8-26) Creatinine 8.2 mg/dL (0.7-1.3) Estimated GFR (Cockcroft-Gault) 6.9 BUN/Creatinine Ratio 11 (6-20) Glucose Level 115 mg/dL (70-99) Calcium Level 6.8 mg/dL (8.5-10.1) Total Bilirubin 0.8 mg/dL (0.2-1.0) Aspartate Amino Transf (AST/SGOT) 40 U/L (15-37) Alanine Aminotransferase (ALT/SGPT) 32 U/L (16-63) Alkaline Phosphatase 116 U/L (46-116) Total Protein 6.4 g/dL (6.4-8.2) Albumin 2.0 g/dL (3.4-5.0) Albumin/Globulin Ratio 0.5 (1.0-1.7) Laboratory Tests Test 09/09/18 04:40 White Blood Count 9.4 x10^3/uL (4.0-11.0) Red Blood Count 2.39 x10^6/uL (4.30-5.70) Hemoglobin 7.1 g/dL (13.0-17.5) Hematocrit 20.6 % (39.0-53.0) Mean Corpuscular Volume 86 fL (79-100) Mean Corpuscular Hemoglobin 30 pg (25-35) Mean Corpuscular Hemoglobin Concent 35 g/dL (31-37) Red Cell Distribution Width 18.7 % (11.5-14.5) Platelet Count 345 x10^3/uL (140-400) Neutrophils (%) (Auto) 58 % (31-73) Lymphocytes (%) (Auto) 26 % (24-48) Monocytes (%) (Auto) 14 % (0-9) Eosinophils (%) (Auto) 1 % (0-3) Basophils (%) (Auto) 1 % (0-3) Neutrophils # (Auto) 5.5 x10^3uL (1.8-7.7) Lymphocytes # (Auto) 2.5 x10^3/uL (1.0-4.8) Monocytes # (Auto) 1.3 x10^3/uL (0.0-1.1) Eosinophils # (Auto) 0.1 x10^3/uL (0.0-0.7) Basophils # (Auto) 0.1 x10^3/uL (0.0-0.2) Sodium Level 136 mmol/L (136-145) Potassium Level 4.4 mmol/L (3.5-5.1) Chloride Level 95 mmol/L (98-107) Carbon Dioxide Level 22 mmol/L (21-32) Anion Gap 19 (6-14) Blood Urea Nitrogen 92 mg/dL (8-26) Creatinine 8.2 mg/dL (0.7-1.3) Estimated GFR (Cockcroft-Gault) 6.9 BUN/Creatinine Ratio 11 (6-20) Glucose Level 115 mg/dL (70-99) Calcium Level 6.8 mg/dL (8.5-10.1) Total Bilirubin 0.8 mg/dL (0.2-1.0) Aspartate Amino Transf (AST/SGOT) 40 U/L (15-37) Alanine Aminotransferase (ALT/SGPT) 32 U/L (16-63) Alkaline Phosphatase 116 U/L (46-116) Total Protein 6.4 g/dL (6.4-8.2) Albumin 2.0 g/dL (3.4-5.0) Albumin/Globulin Ratio 0.5 (1.0-1.7) Medications Active Scripts Medications Dose Route/Sig Max Daily Dose Days Date Category Prednisone 20 Mg Tablet 1 Tab PO DAILY 08/26/18 Reported Hydrochlorothiazide Tablet (Hydrochlorothiazide) 12.5 Mg Tablet 12.5 Mg PO DAILY 08/26/18 Reported Shilpi Allergy (Fexofenadine Hcl) 180 Mg Tablet 1 Tab PO DAILY 08/26/18 Reported Potassium Chloride 20 Meq Tablet.er 20 Meq PO DAILY 08/24/18 Rx Orphenadrine Citrate 100 Mg Tablet.er 100 Mg PO Q12HR 02/03/16 Rx Anaprox Ds (Naproxen Sodium) 550 Mg Tablet 550 Mg PO Q12HR 02/03/16 Rx Comments CXR REVIEWED 09/09 SMALL/ ATELECTASIS/ EFFUSION LEFT/ IMPROVED Impression . IMPRESSION: 1. Acute hypoxemic respiratory failure, multifactorial due to encephalopathy from suspected [employer] infection/ acute lung injury from recent infection. EXTUBATED 09/08 2. 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 Fever. RESOLVED 4. Lactic acidosis. 5. Acute renal failure. 6. Acute hepatic injury. 7. Thrombocytopenia, improving. 8. Hemochromatosis. 9. ACUTE TOXIC MET ENCEPH POA 10 DYSPHAGIA 11.ENCEPHALITIS 12. FUNGEMIA 13. ANEMIA Plan . DOING MUCH BETTER EXTUBATED 09/08 SPEECH EVAL NEXT WEEK CONSIDER TX PER HEMATOLOGY ANTIBX PER ID NUTRION PER PCP HD fu sputum cx , yeast, likely contaminant D/W RN, ANIT-FUNGAL PER ID LINES DC'D D/W DYANA BERRY MD Sep 09, 2018 11:42
--- NOTE | 2018-09-09 13:07 | PDOC ---
PROGRESS NOTES Subjective Subjective HPI - f/u of Thrombocytopenia ROS - no fever Objective Objective Vital Signs Date Time Temp Pulse Resp B/P (MAP) Pulse Ox O2 Delivery O2 Flow Rate FiO2 09/09/18 12:00 96 16 135/69 (91) 99 Nasal Cannula 3.0 09/09/18 04:04 98.3 98.3 Intake and Output 09/09/18 07:00 Intake Total 2248 ml Output Total 76 ml Balance 2172 ml IV Total 450 ml Tube Feeding 1593 ml Other 205 ml Output Urine Total 76 ml Physical Exam Heart: Normal S1, Normal S2 General: Alert, No acute distress Lungs: Clear to auscultation Assessment Assessment Problems Medical Problems: (1) Acute renal failure Status: Acute Assessment/Plan 52 yo male presents with week long history of fever and found to have thrombocytopenia, ARF, elevated LFTs 1. Septic shock - Fever - Tick borne illness suspected. Per ID. 2. Dehydration 3. Acute renal failure. Cr 7.1, management per nephro. 4. Elevated LFTs 5. Thrombocytopenia due to sepsis, no clinical evidence of TTP, no evidence of schistocytes, normal retic and haptoglobin and Hb. He should be transfused plts if his plt count <10 or he develops active bleeding. Plt better at 30 on 08/27/18. Plt better at 47 on 08/28/18, Plt better at 58 on 08/29/18 Plt better at 67 on 08/30/18. Plt better at 73 on 08/31/18 Plt better at 139 on 09/04/18, Plt normal at 175, Monitor cbc. Plt normal at 345 on 09/09/18 No bleeding 6. Anemia, worse. I d/w Dr Meadows who deferred PRBC due to concerns about risk for fluid overload. I agree. I agree to transfuse with next hemodialysis as he is not symptomatic. Hb better at 7.1 on 09/09/18 6. Resp failure, on vent, management per pulm. Comment Review of Relevant I have reviewed the following items gera (where applicable) has been applied. Labs Laboratory Tests Test 09/07/18 18:05 09/08/18 06:15 09/08/18 07:25 09/08/18 10:54 Clostridium difficile Toxin B Gene Negative (Negative) White Blood Count 6.5 x10^3/uL (4.0-11.0) Red Blood Count 2.25 x10^6/uL (4.30-5.70) Hemoglobin 6.5 g/dL (13.0-17.5) Hematocrit 19.3 % (39.0-53.0) Mean Corpuscular Volume 86 fL (79-100) Mean Corpuscular Hemoglobin 29 pg (25-35) Mean Corpuscular Hemoglobin Concent 34 g/dL (31-37) Red Cell Distribution Width 19.1 % (11.5-14.5) Platelet Count 287 x10^3/uL (140-400) Neutrophils (%) (Auto) 51 % (31-73) Lymphocytes (%) (Auto) 32 % (24-48) Monocytes (%) (Auto) 15 % (0-9) Eosinophils (%) (Auto) 2 % (0-3) Basophils (%) (Auto) 1 % (0-3) Neutrophils # (Auto) 3.3 x10^3uL (1.8-7.7) Lymphocytes # (Auto) 2.0 x10^3/uL (1.0-4.8) Monocytes # (Auto) 1.0 x10^3/uL (0.0-1.1) Eosinophils # (Auto) 0.1 x10^3/uL (0.0-0.7) Basophils # (Auto) 0.0 x10^3/uL (0.0-0.2) Sodium Level 137 mmol/L (136-145) Potassium Level 4.3 mmol/L (3.5-5.1) Chloride Level 97 mmol/L (98-107) Carbon Dioxide Level 24 mmol/L (21-32) Anion Gap 16 (6-14) Blood Urea Nitrogen 64 mg/dL (8-26) Creatinine 5.9 mg/dL (0.7-1.3) Estimated GFR (Cockcroft-Gault) 10.1 BUN/Creatinine Ratio 11 (6-20) Glucose Level 116 mg/dL (70-99) Calcium Level 7.1 mg/dL (8.5-10.1) Total Bilirubin 0.9 mg/dL (0.2-1.0) Aspartate Amino Transf (AST/SGOT) 42 U/L (15-37) Alanine Aminotransferase (ALT/SGPT) 30 U/L (16-63) Alkaline Phosphatase 121 U/L (46-116) Total Protein 6.4 g/dL (6.4-8.2) Albumin 2.0 g/dL (3.4-5.0) Albumin/Globulin Ratio 0.5 (1.0-1.7) O2 Saturation 97 % (92-99) 97 % (92-99) Arterial Blood pH 7.45 (7.35-7.45) 7.44 (7.35-7.45) Arterial Blood pCO2 at Patient Temp 35 mmHg (35-46) 36 mmHg (35-46) Arterial Blood pO2 at Patient Temp 117 mmHg (75-108) 120 mmHg (75-108) Arterial Blood HCO3 24 mmol/L (21-28) 24 mmol/L (21-28) Arterial Blood Base Excess 0 mmol/L (-3-3) 0 mmol/L (-3-3) FiO2 35 40 Test 09/09/18 04:40 White Blood Count 9.4 x10^3/uL (4.0-11.0) Red Blood Count 2.39 x10^6/uL (4.30-5.70) Hemoglobin 7.1 g/dL (13.0-17.5) Hematocrit 20.6 % (39.0-53.0) Mean Corpuscular Volume 86 fL (79-100) Mean Corpuscular Hemoglobin 30 pg (25-35) Mean Corpuscular Hemoglobin Concent 35 g/dL (31-37) Red Cell Distribution Width 18.7 % (11.5-14.5) Platelet Count 345 x10^3/uL (140-400) Neutrophils (%) (Auto) 58 % (31-73) Lymphocytes (%) (Auto) 26 % (24-48) Monocytes (%) (Auto) 14 % (0-9) Eosinophils (%) (Auto) 1 % (0-3) Basophils (%) (Auto) 1 % (0-3) Neutrophils # (Auto) 5.5 x10^3uL (1.8-7.7) Lymphocytes # (Auto) 2.5 x10^3/uL (1.0-4.8) Monocytes # (Auto) 1.3 x10^3/uL (0.0-1.1) Eosinophils # (Auto) 0.1 x10^3/uL (0.0-0.7) Basophils # (Auto) 0.1 x10^3/uL (0.0-0.2) Sodium Level 136 mmol/L (136-145) Potassium Level 4.4 mmol/L (3.5-5.1) Chloride Level 95 mmol/L (98-107) Carbon Dioxide Level 22 mmol/L (21-32) Anion Gap 19 (6-14) Blood Urea Nitrogen 92 mg/dL (8-26) Creatinine 8.2 mg/dL (0.7-1.3) Estimated GFR (Cockcroft-Gault) 6.9 BUN/Creatinine Ratio 11 (6-20) Glucose Level 115 mg/dL (70-99) Calcium Level 6.8 mg/dL (8.5-10.1) Total Bilirubin 0.8 mg/dL (0.2-1.0) Aspartate Amino Transf (AST/SGOT) 40 U/L (15-37) Alanine Aminotransferase (ALT/SGPT) 32 U/L (16-63) Alkaline Phosphatase 116 U/L (46-116) Total Protein 6.4 g/dL (6.4-8.2) Albumin 2.0 g/dL (3.4-5.0) Albumin/Globulin Ratio 0.5 (1.0-1.7) Laboratory Tests Test 09/09/18 04:40 White Blood Count 9.4 x10^3/uL (4.0-11.0) Red Blood Count 2.39 x10^6/uL (4.30-5.70) Hemoglobin 7.1 g/dL (13.0-17.5) Hematocrit 20.6 % (39.0-53.0) Mean Corpuscular Volume 86 fL (79-100) Mean Corpuscular Hemoglobin 30 pg (25-35) Mean Corpuscular Hemoglobin Concent 35 g/dL (31-37) Red Cell Distribution Width 18.7 % (11.5-14.5) Platelet Count 345 x10^3/uL (140-400) Neutrophils (%) (Auto) 58 % (31-73) Lymphocytes (%) (Auto) 26 % (24-48) Monocytes (%) (Auto) 14 % (0-9) Eosinophils (%) (Auto) 1 % (0-3) Basophils (%) (Auto) 1 % (0-3) Neutrophils # (Auto) 5.5 x10^3uL (1.8-7.7) Lymphocytes # (Auto) 2.5 x10^3/uL (1.0-4.8) Monocytes # (Auto) 1.3 x10^3/uL (0.0-1.1) Eosinophils # (Auto) 0.1 x10^3/uL (0.0-0.7) Basophils # (Auto) 0.1 x10^3/uL (0.0-0.2) Sodium Level 136 mmol/L (136-145) Potassium Level 4.4 mmol/L (3.5-5.1) Chloride Level 95 mmol/L (98-107) Carbon Dioxide Level 22 mmol/L (21-32) Anion Gap 19 (6-14) Blood Urea Nitrogen 92 mg/dL (8-26) Creatinine 8.2 mg/dL (0.7-1.3) Estimated GFR (Cockcroft-Gault) 6.9 BUN/Creatinine Ratio 11 (6-20) Glucose Level 115 mg/dL (70-99) Calcium Level 6.8 mg/dL (8.5-10.1) Total Bilirubin 0.8 mg/dL (0.2-1.0) Aspartate Amino Transf (AST/SGOT) 40 U/L (15-37) Alanine Aminotransferase (ALT/SGPT) 32 U/L (16-63) Alkaline Phosphatase 116 U/L (46-116) Total Protein 6.4 g/dL (6.4-8.2) Albumin 2.0 g/dL (3.4-5.0) Albumin/Globulin Ratio 0.5 (1.0-1.7) Microbiology 09/08/18 Blood Culture - Preliminary, Resulted NO GROWTH AFTER 1 DAY 08/29/18 CSF Gram Stain - Final, Complete 08/27/18 Stool Culture - Final, Complete 08/27/18 Stool Culture Result 1 (LOTUS) - Final, Complete 08/27/18 Campylobacter Antigen Assay - Final, Complete 08/27/18 Campylobactor Result 1 - Final, Complete 08/27/18 Shiga Toxin Test - Final, Complete 09/05/18 - Final, Complete 09/05/18 - Final, Complete 09/05/18 - Final, Complete 09/05/18 Gram Stain Evaluation - Final, Complete 09/05/18 Sputum Culture - Final, Complete 09/05/18 Sputum Result 1 - Final, Complete 09/04/18 Urine Culture - Final, Complete 09/04/18 Urine Culture Result 1 (LOTUS) - Final, Complete Medications Current Medications Sodium Chloride 1,000 ml @ 1,000 mls/hr 1X ONCE IV Last administered on 08/25/18at 20:38; Start 08/25/18 at 19:15; Stop 08/25/18 at 20:14; Status DC Ibuprofen (Motrin) 600 mg 1X ONCE PO Last administered on 08/25/18at 20:38; Start 08/25/18 at 19:45; Stop 08/25/18 at 19:49; Status DC Sodium Chloride 1,000 ml @ 1,000 mls/hr 1X ONCE IV Last administered on 08/25/18at 20:30; Start 08/25/18 at 20:30; Stop 08/25/18 at 21:29; Status DC Ceftriaxone Sodium (Rocephin) 1 gm 1X ONCE IVP Last administered on 08/25/18at 20:36; Start 08/25/18 at 20:30; Stop 08/25/18 at 20:31; Status DC Vancomycin HCl 2 gm/Sodium Chloride 500 ml @ 250 mls/hr 1X ONCE IV Last administered on 08/25/18at 23:10; Start 08/25/18 at 21:30; Stop 08/25/18 at 23:29; Status DC Sodium Chloride 1,000 ml @ 1,000 mls/hr 1X ONCE IV Last administered on 08/25/18at 23:51; Start 08/25/18 at 21:00; Stop 08/25/18 at 21:59; Status DC Piperacillin Sod/ Tazobactam Sod 4.5 gm/Sodium Chloride 100 ml @ 200 mls/hr 1X ONCE IV ; Start 08/25/18 at 21:15; Stop 08/25/18 at 21:44; Status DC Aztreonam (Azactam) 2 gm 1X ONCE IVP Last administered on 08/25/18at 21:15; Start 08/25/18 at 21:15; Stop 08/25/18 at 21:16; Status DC Magnesium Sulfate 50 ml @ 25 mls/hr 1X ONCE IV Last administered on 08/25/18at 23:51; Start 08/25/18 at 21:15; Stop 08/25/18 at 23:14; Status DC Ondansetron HCl (Zofran) 4 mg PRN Q8HRS PRN IV NAUSEA/VOMITING; Start 08/25/18 at 21:15; Stop 08/26/18 at 21:14; Status DC Acetaminophen (Tylenol) 650 mg PRN Q4HRS PRN PO FEVER; Start 08/25/18 at 21:15; Stop 08/26/18 at 21:14; Status DC Sodium Chloride 1,000 ml @ 125 mls/hr 1X ONCE IV Last administered on 08/25/18at 23:09; Start 08/25/18 at 21:15; Stop 08/26/18 at 05:14; Status DC Daptomycin 610 mg/ Sodium Chloride 50 ml @ 100 mls/hr QODAY IV Last administer ed on 08/27/18at 08:59; Start 08/27/18 at 09:00; Stop 08/28/18 at 15:40; Status DC Meropenem 500 mg/ Sodium Chloride 50 ml @ 100 mls/hr 1X ONCE IV Last administered on 08/25/18at 22:12; Start 08/25/18 at 22:00; Stop 08/25/18 at 22:29; Status DC Doxycycline Hyclate 100 mg/ Dextrose 100 ml @ 50 mls/hr Q12HR IV Last administered on 09/03/18at 22:11; Start 08/26/18 at 09:00; Stop 09/04/18 at 08:11; Status DC Meropenem 500 mg/ Sodium Chloride 50 ml @ 100 mls/hr DAILY IV Last administered on 08/29/18at 10:13; Start 08/26/18 at 09:00; Stop 08/30/18 at 08:17; Status DC Sodium Chloride (Normal Saline Flush) 10 ml QSHIFT PRN IV AFTER MEDS AND BLOOD DRAWS; Start 08/26/18 at 09:15 Norepinephrine Bitartrate 250 ml @ 0 mls/hr CONT PRN IV PER PROTOCOL Last administered on 08/27/18at 10:21; Start 08/26/18 at 09:15; Stop 08/30/18 at 17:20; Status DC Famotidine (Pepcid) 20 mg DAILY PO Last administered on 08/27/18at 08:14; Start 08/26/18 at 12:00; Stop 08/27/18 at 14:36; Status DC Sodium Chloride 1,000 ml @ 1,000 mls/hr Q1H PRN IV hypotension; Start 08/26/18 at 11:51; Stop 08/26/18 at 17:50; Status DC Sodium Chloride (Normal Saline Flush) 10 ml 1X PRN PRN IV AP catheter pack; Start 08/26/18 at 12:00; Stop 08/27/18 at 11:59; Status DC Sodium Chloride (Normal Saline Flush) 10 ml 1X PRN PRN IV [employer] catheter pack; Start 08/26/18 at 12:00; Stop 08/27/18 at 11:59; Status DC Sodium Chloride 1,000 ml @ 400 mls/hr Q2H30M PRN IV PATENCY; Start 08/26/18 at 11:51; Stop 08/26/18 at 23:50; Status DC Info (PHARMACY MONITORING -- do not chart) 1 each PRN DAILY PRN MC SEE COMMENTS; Start 08/26/18 at 12:00; Status UNV Info (PHARMACY MONITORING -- do not chart) 1 each PRN DAILY PRN MC SEE COMMENTS; Start 08/26/18 at 12:00; Stop 09/01/18 at 10:59; Status DC Lidocaine/Sodium Bicarbonate (Buffered Lidocaine 1%) 4 ml 1X ONCE INJ Last administered on 08/26/18at 12:45; Start 08/26/18 at 12:45; Stop 08/26/18 at 12:48; Status DC Heparin Sodium (Porcine) (Heparin Sodium) 2,500 unit 1X ONCE INT CAT Last administered on 08/26/18at 12:45; Start 08/26/18 at 12:45; Stop 08/26/18 at 12:48; Status DC Lidocaine/Sodium Bicarbonate (Buffered Lidocaine 1%) 3 ml STK-MED ONCE .ROUTE ; Start 08/26/18 at 12:49; Stop 08/26/18 at 12:50; Status DC Heparin Sodium (Porcine) (Heparin Sodium) 10,000 unit STK-MED ONCE .ROUTE ; Start 08/26/18 at 12:49; Stop 08/26/18 at 12:50; Status DC Lactobacillus Rhamnosus (Culturelle) 1 cap BID PO Last administered on 09/08/18at 09:34; Start 08/26/18 at 21:00; Stop 09/08/18 at 10:55; Status DC Acetaminophen (Tylenol) 325 mg STK-MED ONCE PO ; Start 08/27/18 at 00:43; Stop 08/27/18 at 00:44; Status DC Sodium Chloride 1,000 ml @ 1,000 mls/hr 1X ONCE IV Last administered on 08/27/18at 11:05; Start 08/27/18 at 10:30; Stop 08/27/18 at 11:29; Status DC Sodium Chloride 1,000 ml @ 1,000 mls/hr Q1H PRN IV hypotension; Start 08/27/18 at 11:28; Stop 08/27/18 at 17:27; Status DC Albumin Human 200 ml @ 200 mls/hr 1X PRN PRN IV Hypotension; Start 08/27/18 at 11:30; Stop 08/27/18 at 17:29; Status DC Sodium Chloride (Normal Saline Flush) 10 ml 1X PRN PRN IV AP catheter pack; Start 08/27/18 at 11:30; Stop 08/28/18 at 11:29; Status DC Sodium Chloride (Normal Saline Flush) 10 ml 1X PRN PRN IV [employer] catheter pack; Start 08/27/18 at 11:30; Stop 08/28/18 at 11:29; Status DC Sodium Chloride 1,000 ml @ 400 mls/hr Q2H30M PRN IV PATENCY; Start 08/27/18 at 11:28; Stop 08/27/18 at 23:27; Status DC Info (PHARMACY MONITORING -- do not chart) 1 each PRN DAILY PRN MC SEE COMMENTS; Start 08/27/18 at 11:30; Status UNV Info (PHARMACY MONITORING -- do not chart) 1 each PRN DAILY PRN MC SEE COMMENTS; Start 08/27/18 at 11:30; Status UNV Famotidine (Pepcid) 20 mg Q48H PO ; Start 08/29/18 at 09:00; Stop 08/29/18 at 11:29; Status DC Acetaminophen (Tylenol) 650 mg PRN Q6HRS PRN PO mild pain/fever; Start 08/27/18 at 21:15 Acetaminophen (Tylenol Supp) 650 mg PRN Q6HRS PRN [place] MILD PAIN / TEMP Last administered on 09/02/18at 01:18; Start 08/27/18 at 21:15 Fentanyl Citrate (Fentanyl 2ml Vial) 25 mcg 1X ONCE IV Last administered on 08/28/18at 08:54; Start 08/28/18 at 08:45; Stop 08/28/18 at 08:47; Status DC Lidocaine/Sodium Bicarbonate (Buffered Lidocaine 1%) 3 ml STK-MED ONCE .ROUTE ; Start 08/28/18 at 09:55; Stop 08/28/18 at 09:56; Status DC Lidocaine HCl (Glydo (Lidocaine) Jelly) 1 meng 1X STAT MM Last administered on 08/28/18at 10:16; Start 08/28/18 at 10:16; Stop 08/28/18 at 10:19; Status DC Benzocaine (Hurricaine One) 1 spray 1X STAT MM Last administered on 08/28/18at 10:16; Start 08/28/18 at 10:16; Stop 08/28/18 at 10:19; Status DC Lidocaine/Sodium Bicarbonate (Buffered Lidocaine 1%) 3 ml 1X ONCE INJ ; Start 08/28/18 at 10:30; Stop 08/28/18 at 10:31; Status DC Haloperidol Lactate (Haldol Inj) 5 mg PRN Q6HRS PRN IVP AGITATION Last administered on 09/06/18at 05:53; Start 08/28/18 at 12:00 Fentanyl Citrate (Fentanyl 2ml Vial) 50 mcg PRN Q4HRS PRN IV PAIN Last administered on 08/28/18at 21:44; Start 08/28/18 at 15:30; Stop 09/05/18 at 02:11; Status DC Sodium Chloride 1,000 ml @ 1,000 mls/hr Q1H PRN IV hypotension; Start 08/28/18 at 14:00; Stop 08/28/18 at 19:59; Status DC Albumin Human 200 ml @ 200 mls/hr 1X PRN PRN IV Hypotension Last administered on 08/28/18at 14:50; Start 08/28/18 at 14:00; Stop 09/03/18 at 18:17; Status DC Sodium Chloride 1,000 ml @ 400 mls/hr Q2H30M PRN IV PATENCY; Start 08/28/18 at 14:00; Stop 08/29/18 at 01:59; Status DC Info (PHARMACY MONITORING -- do not chart) 1 each PRN DAILY PRN MC SEE SOFIA NTS; Start 08/28/18 at 15:30; Status UNV Info (PHARMACY MONITORING -- do not chart) 1 each PRN DAILY PRN MC SEE COMMENTS; Start 08/28/18 at 15:30; Status UNV Daptomycin 610 mg/ Sodium Chloride 50 ml @ 100 mls/hr Q48H IV ; Start 08/30/18 at 16:00; Stop 08/30/18 at 16:00; Status DC Famotidine (Pepcid Vial) 20 mg QHS IVP Last administered on 08/31/18at 20:59; Start 08/29/18 at 21:00; Stop 09/01/18 at 11:00; Status DC Acyclovir Sodium 340 mg/Dextrose 106.8 ml @ 106.8 mls/ hr Q12HR IV Last administered on 09/01/18at 11:05; Start 08/30/18 at 09:00; Stop 09/01/18 at 13:37; Status DC Sodium Chloride 1,000 ml @ 1,000 mls/hr Q1H PRN IV hypotension; Start 08/30/18 at 11:02; Stop 08/30/18 at 17:01; Status DC Sodium Chloride 1,000 ml @ 400 mls/hr Q2H30M PRN IV PATENCY; Start 08/30/18 at 11:02; Stop 08/30/18 at 23:01; Status DC Info (PHARMACY MONITORING -- do not chart) 1 each PRN DAILY PRN MC SEE COMMENTS; Start 08/30/18 at 11:15; Status UNV Info (PHARMACY MONITORING -- do not chart) 1 each PRN DAILY PRN MC SEE COMMENTS; Start 08/30/18 at 11:15; Status UNV Info (Tpn Per Pharmacy) 1 each PRN DAILY PRN MC SEE COMMENTS Last administered on 09/03/18at 10:53; Start 08/30/18 at 12:45; Stop 09/04/18 at 12:50; Status DC Sodium Chloride 90 meq/Potassium Chloride 50 meq/ Potassium Phosphate 3 mmol/ Magnesium Sulfate 10 meq/Calcium Gluconate 10 meq/ Multivitamins 10 ml/Chromium/ Copper/Manganese/ Seleni/Zn 1 ml/ Total Parenteral Nutrition/Amino Acids/Dextrose/ Fat Emulsion Intravenous 1,512 ml @ 63 mls/hr TPN CONT IV Last administered on 08/30/18at 21:40; Start 08/30/18 at 22:00; Stop 08/31/18 at 21:59; Status DC Ondansetron HCl (Zofran) 4 mg PRN Q6HRS PRN IV NAUSEA/VOMITING; Start 08/31/18 at 08:00 Haloperidol (Haldol) 2 mg PRN QID PRN PO AGITATION; Start 08/31/18 at 08:00; Stop 08/31/18 at 12:43; Status DC Haloperidol Lactate (HALDOL 2mg ORAL CONC) 2 mg PRN QID PRN PO AGITATION; Start 08/31/18 at 12:43 Sodium Chloride 90 meq/Potassium Chloride 50 meq/ Potassium Phosphate 5 mmol/ Magnesium Sulfate 3 meq/Calcium Gluconate 10 meq/ Multivitamins 10 ml/Chromium/ Copper/Manganese/ Seleni/Zn 1 ml/ Total Parenteral Nutrition/Amino Acids/Dextros e 1,512 ml @ 63 mls/hr TPN CONT IV Last administered on 08/31/18at 20:59; Start 08/31/18 at 22:00; Stop 09/01/18 at 21:59; Status DC Propofol 100 ml @ As Directed STK-MED ONCE IV ; Start 08/31/18 at 22:45; Stop 08/31/18 at 22:46; Status DC Succinylcholine Chloride (Anectine) 200 mg STK-MED ONCE .ROUTE ; Start 08/31/18 at 22:46; Stop 08/31/18 at 22:47; Status DC Atropine Sulfate (ATROPINE 1mg SYRINGE) 1 mg STK-MED ONCE .ROUTE ; Start 08/31/18 at 22:58; Stop 08/31/18 at 22:59; Status DC Fentanyl Citrate 30 ml @ 0 mls/hr CONT PRN IV SEE PROTOCOL Last administered on 09/06/18at 10:39; Start 09/01/18 at 00:00; Stop 09/06/18 at 10:59; Status DC Propofol 100 ml @ 0 mls/hr CONT PRN IV SEE PROTOCOL Last administered on 09/06/18at 08:14; Start 09/01/18 at 00:00; Stop 09/06/18 at 10:59; Status DC Chlorhexidine Gluconate (Peridex) 15 ml BID MM Last administered on 09/07/18at 21:21; Start 09/01/18 at 09:00; Stop 09/08/18 at 08:04; Status DC Midazolam HCl 100 ml @ 0 mls/hr CONT PRN IV SEE PROTOCOL; Start 09/01/18 at 00:00; Stop 09/08/18 at 11:30; Status DC Albuterol/ Ipratropium (Duoneb) 3 ml RTQID NEB Last administered on 09/09/18at 11:51; Start 09/01/18 at 08:00 Albuterol/ Ipratropium (Duoneb) 3 ml 1X ONCE NEB Last administered on 09/01/18at 01:10; Start 09/01/18 at 01:00; Stop 09/01/18 at 01:01; Status DC Succinylcholine Chloride (Anectine) 200 mg 1X ONCE IV Last administered on 08/31/18at 23:04; Start 09/01/18 at 01:15; Stop 09/01/18 at 01:16; Status DC Sodium Chloride 1,000 ml @ 1,000 mls/hr Q1H PRN IV hypotension; Start 09/01/18 at 07:00; Stop 09/01/18 at 12:59; Status DC Sodium Chloride (Normal Saline Flush) 10 ml 1X PRN PRN IV AP catheter pack; Start 09/01/18 at 07:00; Stop 09/02/18 at 06:59; Status DC Sodium Chloride (Normal Saline Flush) 10 ml 1X PRN PRN IV [employer] catheter pack; Start 09/01/18 at 07:00; Stop 09/02/18 at 06:59; Status DC Sodium Chloride 1,000 ml @ 400 mls/hr Q2H30M PRN IV PATENCY; Start 09/01/18 at 07:00; Stop 09/01/18 at 18:59; Status DC Info (PHARMACY MONITORING -- do not chart) 1 each PRN DAILY PRN MC SEE COMMENTS; Start 09/01/18 at 11:00; Status Cancel Info (PHARMACY MONITORING -- do not chart) 1 each PRN DAILY PRN MC SEE COMMENTS; Start 09/01/18 at 11:00; Status Cancel Famotidine (Pepcid Vial) 20 mg Q48H IVP Last administered on 09/07/18at 21:21; Start 09/03/18 at 21:00 Sodium Chloride 90 meq/Potassium Chloride 50 meq/ Potassium Phosphate 10 mmol/ Calcium Gluconate 10 meq/ Multivitamins 10 ml/Chromium/ Copper/Manganese/ Seleni/Zn 1 ml/ Total Parenteral Nutrition/Amino Acids/Dextrose 1,512 ml @ 63 mls/hr TPN CONT IV Last administered on 09/01/18at 22:11; Start 09/01/18 at 22:00; Stop 09/02/18 at 21:59; Status DC Piperacillin Sod/ Tazobactam Sod 2.25 gm/Sodium Chloride 50 ml @ 100 mls/hr Q6HRS IV Last administered on 09/09/18at 06:16; Start 09/01/18 at 14:00 Sodium Chloride 110 meq/Potassium Chloride 50 meq/ Potassium Phosphate 10 mmol/ Calcium Gluconate 10 meq/ Multivitamins 10 ml/Chromium/ Copper/Manganese/ Seleni/Zn 1 ml/ Magnesium Sulfate 3 meq/Total Parenteral Nutrition/Amino Acids/Dextrose 1,512 ml @ 63 mls/hr TPN CONT IV Last administered on 09/02/18at 22:13; Start 09/02/18 at 22:00; Stop 09/03/18 at 21:59; Status DC Darbepoetin Phil (Aranesp) 100 mcg [id number] SQ Last administered on 09/03/18at 22:11; Start 09/03/18 at 21:00 Sodium Chloride 130 meq/Potassium Acetate 20 meq/ Calcium Gluconate 10 meq/ Multivitamins 10 ml/Chromium/ Copper/Manganese/ Seleni/Zn 1 ml/ Magnesium Sulfate 3 meq/Total Parenteral Nutrition/Amino Acids/Dextrose 1,512 ml @ 63 mls/hr TPN CONT IV Last administered on 09/03/18at 22:12; Start 09/03/18 at 22:00; Stop 09/04/18 at 21:59; Status DC Albumin Human 200 ml @ 200 mls/hr 1X PRN PRN IV Hypotension; Start 09/03/18 at 10:00; Stop 09/03/18 at 21:00; Status DC Sodium Chloride (Normal Saline Flush) 10 ml 1X PRN PRN IV AP catheter pack; Start 09/03/18 at 10:00; Stop 09/03/18 at 21:00; Status DC Sodium Chloride (Normal Saline Flush) 10 ml 1X PRN PRN IV [employer] catheter pack; Start 09/03/18 at 10:00; Stop 09/03/18 at 21:00; Status DC Sodium Chloride 1,000 ml @ 400 mls/hr Q2H30M PRN IV PATENCY; Start 09/03/18 at 10:00; Stop 09/03/18 at 21:59; Status DC Info (PHARMACY MONITORING -- do not chart) 1 each PRN DAILY PRN MC SEE COMMENTS; Start 09/03/18 at 18:15; Status UNV Atropine Sulfate (ATROPINE 0.5mg SYRINGE) 0.5 mg STK-MED ONCE .ROUTE ; Start 08/31/18 at 08:06; Stop 09/04/18 at 08:07; Status DC Epinephrine HCl (EPINEPHrine SYRINGE) 3 mg STK-MED ONCE .ROUTE ; Start 08/31/18 at 08:06; Stop 09/04/18 at 08:07; Status DC Sodium Bicarbonate (Sodium Bicarb Adult 8.4% Syr) 100 meq STK-MED ONCE .ROUTE ; Start 08/31/18 at 08:06; Stop 09/04/18 at 08:07; Status DC Levofloxacin/ Dextrose 150 ml @ 100 mls/hr QODAY IV Last administered on 09/06/18at 10:28; Start 09/04/18 at 09:00; Stop 09/07/18 at 07:52; Status DC Sodium Chloride 1,000 ml @ 1,000 mls/hr Q1H PRN IV hypotension; Start 09/04/18 at 08:23; Stop 09/04/18 at 14:24; Status DC Albumin Human 200 ml @ 200 mls/hr 1X PRN PRN IV Hypotension; Start 09/04/18 at 08:30; Stop 09/04/18 at 14:29; Status DC Sodium Chloride 1,000 ml @ 400 mls/hr Q2H30M PRN IV PATENCY; Start 09/04/18 at 08:23; Stop 09/04/18 at 20:22; Status DC Info (PHARMACY MONITORING -- do not chart) 1 each PRN DAILY PRN MC SEE COMMENTS; Start 09/04/18 at 08:30; Stop 09/05/18 at 08:55; Status DC Info (PHARMACY MONITORING -- do not chart) 1 each PRN DAILY PRN MC SEE COMMENTS; Start 09/04/18 at 08:30; Status UNV Linezolid/Dextrose 300 ml @ 300 mls/hr Q12HR IV Last administered on 09/09/18at 09:07; Start 09/05/18 at 09:30 Sodium Chloride 1,000 ml @ 1,000 mls/hr Q1H PRN IV hypotension; Start 09/05/18 at 08:51; Stop 09/05/18 at 14:50; Status DC Sodium Chloride (Normal Saline Flush) 10 ml 1X PRN PRN IV AP catheter pack; Start 09/05/18 at 09:00; Stop 09/06/18 at 08:59; Status DC Sodium Chloride (Normal Saline Flush) 10 ml 1X PRN PRN IV [employer] catheter pack; Start 09/05/18 at 09:00; Stop 09/06/18 at 08:59; Status DC Sodium Chloride 1,000 ml @ 400 mls/hr Q2H30M PRN IV PATENCY; Start 09/05/18 at 08:51; Stop 09/05/18 at 20:50; Status DC Info (PHARMACY MONITORING -- do not chart) 1 each PRN DAILY PRN MC SEE COMMENTS; Start 09/05/18 at 09:00; Stop 09/05/18 at 09:00; Status DC Info (PHARMACY MONITORING -- do not chart) 1 each PRN DAILY PRN MC SEE COMMENTS; Start 09/05/18 at 09:00; Status Cancel Fentanyl Citrate (Fentanyl 2ml Vial) 25 mcg PRN Q2HR PRN IV MODERATE PAIN Last administered on 09/08/18at 04:34; Start 09/06/18 at 11:00 Dexmedetomidine HCl 200 mcg/ Sodium Chloride 50 ml @ 0 mls/hr CONT PRN IV PER PROTOCOL; Start 09/06/18 at 11:00; Stop 09/08/18 at 08:03; Status DC Sodium Chloride 500 ml @ 500 mls/hr 1X PRN PRN IV SEE COMMENTS; Start 09/06/18 at 11:00 Atropine Sulfate (ATROPINE 0.5mg SYRINGE) 0.5 mg PRN Q5MIN PRN IV SEE COMMENTS; Start 09/06/18 at 11:00 Sodium Chloride 1,000 ml @ 1,000 mls/hr Q1H PRN IV hypotension; Start 09/06/18 at 11:52; Stop 09/06/18 at 17:51; Status DC Diphenhydramine HCl (Benadryl) 25 mg 1X PRN PRN IV ITCHING; Start 09/06/18 at 12:00; Stop 09/07/18 at 11:59; Status DC Diphenhydramine HCl (Benadryl) 25 mg 1X PRN PRN IV ITCHING; Start 09/06/18 at 12:00; Stop 09/07/18 at 11:59; Status DC Sodium Chloride 1,000 ml @ 400 mls/hr Q2H30M PRN IV PATENCY; Start 09/06/18 at 11:52; Stop 09/06/18 at 23:51; Status DC Info (PHARMACY MONITORING -- do not chart) 1 each PRN DAILY PRN MC SEE COMMENTS; Start 09/06/18 at 12:00; Stop 09/06/18 at 12:00; Status DC Micafungin Sodium 100 mg/Dextrose 100 ml @ 100 mls/hr Q24H IV Last administered on 09/09/18at 08:56; Start 09/07/18 at 08:30 Sodium Chloride 1,000 ml @ 1,000 mls/hr Q1H PRN IV hypotension; Start 09/07/18 at 16:29; Stop 09/07/18 at 22:28; Status DC Diphenhydramine HCl (Benadryl) 25 mg 1X PRN PRN IV ITCHING; Start 09/07/18 at 16:30; Stop 09/08/18 at 16:29; Status DC Diphenhydramine HCl (Benadryl) 25 mg 1X PRN PRN IV ITCHING; Start 09/07/18 at 16:30; Stop 09/08/18 at 16:29; Status DC Sodium Chloride 1,000 ml @ 400 mls/hr Q2H30M PRN IV PATENCY; Start 09/07/18 at 16:29; Stop 09/08/18 at 04:28; Status DC Info (PHARMACY MONITORING -- do not chart) 1 each PRN DAILY PRN MC SEE JANIYA TS; Start 09/07/18 at 16:30 Active Scripts Active Potassium Chloride 20 Meq Tablet.er 20 Meq PO DAILY Orphenadrine Citrate 100 Mg Tablet.er 100 Mg PO Q12HR Anaprox Ds (Naproxen Sodium) 550 Mg Tablet 550 Mg PO Q12HR Reported Prednisone 20 Mg Tablet 1 Tab PO DAILY Hydrochlorothiazide Tablet (Hydrochlorothiazide) 12.5 Mg Tablet 12.5 Mg PO DAILY Shilpi Allergy (Fexofenadine Hcl) 180 Mg Tablet 1 Tab PO DAILY Vitals/I & O Vital Sign - Last 24 Hours 09/08/18 09/08/18 09/08/18 09/08/18 14:00 15:00 16:00 16:00 Temp 98.3 98.3 Pulse 82 82 80 Resp 24 20 20 B/P (MAP) 123/73 (90) 142/84 (103) 130/74 (92) Pulse Ox 98 99 98 O2 Delivery Nasal Cannula Nasal Cannula Nasal Cannula Nasal Cannula O2 Flow Rate 4.0 4.0 4.0 4.0 09/08/18 09/08/18 09/08/18 09/08/18 16:24 17:00 18:00 19:00 Pulse 80 83 81 Resp 22 20 20 B/P (MAP) 133/3 (46) 142/75 (97) 143/92 (109) Pulse Ox 96 99 98 98 O2 Delivery Nasal Cannula Nasal Cannula Nasal Cannula Nasal Cannula O2 Flow Rate 4.0 4.0 4.0 4.0 09/08/18 09/08/18 09/08/18 09/08/18 20:00 20:00 20:28 21:00 Pulse 81 79 Resp 20 20 B/P (MAP) 148/79 (102) 132/79 (96) Pulse Ox 98 96 98 O2 Delivery Nasal Cannula Mechanical Ventilator Nasal Cannula Nasal Cannula O2 Flow Rate 4.0 4.0 4.0 09/08/18 09/08/18 09/08/18 09/09/18 22:00 23:00 23:59 00:26 Pulse 78 84 80 Resp 20 20 16 B/P (MAP) 140/77 (98) 146/77 (100) 142/77 (98) Pulse Ox 98 99 99 O2 Delivery Nasal Cannula Nasal Cannula Nasal Cannula Mechanical Ventilator O2 Flow Rate 4.0 4.0 4.0 09/09/18 09/09/18 09/09/18 09/09/18 01:00 02:00 03:00 04:00 Pulse 85 85 78 Resp 16 16 16 B/P (MAP) 140/77 (98) 132/77 (95) 133/71 (91) Pulse Ox 97 97 97 O2 Delivery Nasal Cannula Nasal Cannula Nasal Cannula Mechanical Ventilator O2 Flow Rate 4.0 4.0 4.0 09/09/18 09/09/18 09/09/18 09/09/18 04:04 05:00 06:00 07:00 Temp 98.3 98.3 Pulse 86 84 78 78 Resp 16 20 16 16 B/P (MAP) 135/70 (91) 135/75 (95) 132/75 (94) 135/75 (95) Pulse Ox 99 99 99 99 O2 Delivery Nasal Cannula Nasal Cannula Nasal Cannula Nasal Cannula O2 Flow Rate 4.0 4.0 4.0 3.0 09/09/18 09/09/18 09/09/18 09/09/18 08:00 08:10 09:00 10:00 Pulse 78 96 92 Resp 16 16 16 B/P (MAP) 134/75 (94) 136/75 (95) 136/71 (92) Pulse Ox 99 98 99 99 O2 Delivery Nasal Cannula Nasal Cannula Nasal Cannula Nasal Cannula O2 Flow Rate 3.0 4.0 3.0 3.0 09/09/18 09/09/18 09/09/18 11:00 11:51 12:00 Pulse 94 96 Resp 16 16 B/P (MAP) 128/75 (92) 135/69 (91) Pulse Ox 99 96 99 O2 Delivery Nasal Cannula Nasal Cannula Nasal Cannula O2 Flow Rate 3.0 3.0 3.0 Intake and Output 09/08/18 09/08/18 09/09/18 15:00 23:00 07:00 Intake Total 750 ml 1198 ml 300 ml Output Total 20 ml 16 ml 40 ml Balance 730 ml 1182 ml 260 ml JAVON COSME MD Sep 09, 2018 13:07
[2018-09-09] MEDS: FAMOTIDINE 20 MG/2 ML VIAL IVP SCH (21:22)
[2018-09-10] VITALS (15 sets, daily range): BP systolic 139–160; BP diastolic 72–90
[2018-09-10] MEDS: PIPERACILLIN/TAZOBACTAM 2.25 GM in IV NORMAL SALINE 50ML 50 ML IV SCH ×4 (00:05→18:00)
[2018-09-10 06:01] LABS: ALBUMIN 2.1 g/dL (3.4-5.0); ALBUMIN/GLOBULIN RATIO 0.4 (1.0-1.7); CALCIUM 7.1 mg/dL (8.5-10.1); CREATININE 10.6 mg/dL (0.7-1.3); GFR 5.1; POTASSIUM 4.7 mmol/L (3.5-5.1); TOTAL BILIRUBIN 0.9 mg/dL (0.2-1.0); TOTAL PROTEIN 6.9 g/dL (6.4-8.2)
[2018-09-10 06:27] LABS: BASO # 0.1 x10^3/uL (0.0-0.2); BASO % 1 % (0-3); EOS # 0.1 x10^3/uL (0.0-0.7); EOS % 1 % (0-3); LYMPH # 3.1 x10^3/uL (1.0-4.8); LYMPH % 28 % (24-48); MEAN CORPUSCULAR HEMOGLOBIN 29 pg (25-35); MEAN CORPUSCULAR HGB CONC 34 g/dL (31-37); MEAN CORPUSCULAR VOLUME 86 fL (79-100); MONO # 1.3 x10^3/uL (0.0-1.1); MONO % 12 % (0-9); NEUT # 6.4 x10^3uL (1.8-7.7); NEUT % 58 % (31-73); PLATELET COUNT 359 x10^3/uL (140-400); RED BLOOD COUNT 2.37 x10^6/uL (4.30-5.70); RED CELL DISTRIBUTION WIDTH 18.4 % (11.5-14.5); WHITE BLOOD COUNT 11.1 x10^3/uL (4.0-11.0)
[2018-09-10 06:28] LABS: HEMATOCRIT 20.3 % (39.0-53.0)
--- NOTE | 2018-09-10 07:35 | PDOC ---
Infectious Disease Note Subjective Subjective Doing well. Occ cough. No F/C/S/DIAL/SOA/N still loose stool Tube feedings up to 65 ml/hr via NGT ROS ROS o/w neg Vital Sign Vital Signs Vital Signs Date Time Temp Pulse Resp B/P (MAP) Pulse Ox O2 Delivery O2 Flow Rate FiO2 09/10/18 06:08 83 42 150/76 (100) 97 Nasal Cannula 3.0 09/10/18 04:20 99.4 99.4 Physical Exam PHYSICAL EXAM GENERAL: Awake, calm, NAD - looks well HEENT: Pupils equal, NGT, oral cavity dry NECK: Supple. LUNGS: Clear anteriorly HEART: S1 and S2. regular ABDOMEN: + distention but less, soft, nontender, BS active, rectal tube out : Waters in place EXTREMITIES: No gross edema, no cyanosis. SKIN: Warm, rash UEs fading NEUROLOGIC: Awake, and alert Responds appropriately to questions and follows commands PIV Labs Lab Laboratory Tests Test 09/10/18 04:45 White Blood Count 11.1 x10^3/uL (4.0-11.0) Red Blood Count 2.37 x10^6/uL (4.30-5.70) Hemoglobin 7.0 g/dL (13.0-17.5) Hematocrit 20.3 % (39.0-53.0) Mean Corpuscular Volume 86 fL (79-100) Mean Corpuscular Hemoglobin 29 pg (25-35) Mean Corpuscular Hemoglobin Concent 34 g/dL (31-37) Red Cell Distribution Width 18.4 % (11.5-14.5) Platelet Count 359 x10^3/uL (140-400) Neutrophils (%) (Auto) 58 % (31-73) Lymphocytes (%) (Auto) 28 % (24-48) Monocytes (%) (Auto) 12 % (0-9) Eosinophils (%) (Auto) 1 % (0-3) Basophils (%) (Auto) 1 % (0-3) Neutrophils # (Auto) 6.4 x10^3uL (1.8-7.7) Lymphocytes # (Auto) 3.1 x10^3/uL (1.0-4.8) Monocytes # (Auto) 1.3 x10^3/uL (0.0-1.1) Eosinophils # (Auto) 0.1 x10^3/uL (0.0-0.7) Basophils # (Auto) 0.1 x10^3/uL (0.0-0.2) Sodium Level 134 mmol/L (136-145) Potassium Level 4.7 mmol/L (3.5-5.1) Chloride Level 92 mmol/L (98-107) Carbon Dioxide Level 21 mmol/L (21-32) Anion Gap 21 (6-14) Blood Urea Nitrogen 117 mg/dL (8-26) Creatinine 10.6 mg/dL (0.7-1.3) Estimated GFR (Cockcroft-Gault) 5.1 BUN/Creatinine Ratio 11 (6-20) Glucose Level 107 mg/dL (70-99) Calcium Level 7.1 mg/dL (8.5-10.1) Total Bilirubin 0.9 mg/dL (0.2-1.0) Aspartate Amino Transf (AST/SGOT) 39 U/L (15-37) Alanine Aminotransferase (ALT/SGPT) 36 U/L (16-63) Alkaline Phosphatase 113 U/L (46-116) Total Protein 6.9 g/dL (6.4-8.2) Albumin 2.1 g/dL (3.4-5.0) Albumin/Globulin Ratio 0.4 (1.0-1.7) Micro Microbiology 09/08/18 Blood Culture - Preliminary, Resulted NO GROWTH AFTER 2 DAYS 08/29/18 CSF Gram Stain - Final, Complete 08/27/18 Stool Culture - Final, Complete 08/27/18 Stool Culture Result 1 (LOTUS) - Final, Complete 08/27/18 Campylobacter Antigen Assay - Final, Complete 08/27/18 Campylobactor Result 1 - Final, Complete 08/27/18 Shiga Toxin Test - Final, Complete 09/05/18 - Final, Complete 09/05/18 - Final, Complete 09/05/18 - Final, Complete 09/05/18 Gram Stain Evaluation - Final, Complete 09/05/18 Sputum Culture - Final, Complete 09/05/18 Sputum Result 1 - Final, Complete 09/04/18 Urine Culture - Final, Complete 09/04/18 Urine Culture Result 1 (LOTUS) - Final, Complete Objective Assessment Fungemia from 09/04 04/11 bottles. ID/LOTUS pending; repeat BC 09/08 neg so far -Lines have been removed Recurrent fever, 09/04, better Diarrhea, C. diff PCR neg Leukocytosis - ? 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 MRI neg -CSF pleocytosis, cultures and serologies negative - HIV neg -[place] IgG +, IgM neg, old exposure -HSV PCR neg -Arboviral panel not available -Enteroviral pcr not available RADHA (Recent Bactrim/ibuprofen), on HD Anemia Hemochromatosis, followed by [facility] Plan Plan of Care Add Parvo D/c Zyvox (09/05) Cont Zosyn (09/01) and micafungin Await GI f/u Repeat BC 09/08 neg so far Monitor labs/temp Supportive care D/w Dr. Cespedes, temp HD catheter placement today D/w D/w nursing Critically ill LICO GRACE MD Sep 10, 2018 07:35
[2018-09-10] MEDS: IPRATRPIUM/ALBUTEROL 0.5/2.5MG 3 ML NEBU. NEB SCH ×5 (08:01→20:44)
[2018-09-10] MEDS: MICAFUNGIN 100 MG in IV DEXTROSE 5% 100ML 100 ML IV SCH (08:09)
[2018-09-10] MEDS ORDERED: LIDOCAINE WITH 8.4% SOD BICARB 3 ML DISP.SYRIN. INJ ONE (08:45)
[2018-09-10] MEDS ORDERED: HEPARIN for IV BOLUS 10,000 UNIT/10 ML VIAL. ONE ×2 (09:21→09:37)
[2018-09-10] MEDS ORDERED: LIDOCAINE WITH 8.4% SOD BICARB 3 ML DISP.SYRIN. ONE ×2 (09:21→09:37)
--- NOTE | 2018-09-10 09:22 | PDOC ---
PULMONARY PROGRESS NOTES Subjective intubated 08/31, EXTUBATED 09/08 FOLLOW COMMANDS Vitals Vital Signs Date Time Temp Pulse Resp B/P (MAP) Pulse Ox O2 Delivery O2 Flow Rate FiO2 09/10/18 09:00 80 38 151/85 (107) 96 Nasal Cannula 3.0 09/10/18 08:00 97.7 97.7 General: Alert, No acute distress Lungs: Clear Cardiovascular: S1, S2 Abdomen: Soft, Non-tender, Other (no mass) Extremities: Other (1+edema) Skin: Warm Labs Laboratory Tests Test 09/08/18 10:54 09/09/18 04:40 09/10/18 04:45 O2 Saturation 97 % (92-99) Arterial Blood pH 7.44 (7.35-7.45) Arterial Blood pCO2 at Patient Temp 36 mmHg (35-46) Arterial Blood pO2 at Patient Temp 120 mmHg (75-108) Arterial Blood HCO3 24 mmol/L (21-28) Arterial Blood Base Excess 0 mmol/L (-3-3) FiO2 40 White Blood Count 9.4 x10^3/uL (4.0-11.0) 11.1 x10^3/uL (4.0-11.0) Red Blood Count 2.39 x10^6/uL (4.30-5.70) 2.37 x10^6/uL (4.30-5.70) Hemoglobin 7.1 g/dL (13.0-17.5) 7.0 g/dL (13.0-17.5) Hematocrit 20.6 % (39.0-53.0) 20.3 % (39.0-53.0) Mean Corpuscular Volume 86 fL (79-100) 86 fL (79-100) Mean Corpuscular Hemoglobin 30 pg (25-35) 29 pg (25-35) Mean Corpuscular Hemoglobin Concent 35 g/dL (31-37) 34 g/dL (31-37) Red Cell Distribution Width 18.7 % (11.5-14.5) 18.4 % (11.5-14.5) Platelet Count 345 x10^3/uL (140-400) 359 x10^3/uL (140-400) Neutrophils (%) (Auto) 58 % (31-73) 58 % (31-73) Lymphocytes (%) (Auto) 26 % (24-48) 28 % (24-48) Monocytes (%) (Auto) 14 % (0-9) 12 % (0-9) Eosinophils (%) (Auto) 1 % (0-3) 1 % (0-3) Basophils (%) (Auto) 1 % (0-3) 1 % (0-3) Neutrophils # (Auto) 5.5 x10^3uL (1.8-7.7) 6.4 x10^3uL (1.8-7.7) Lymphocytes # (Auto) 2.5 x10^3/uL (1.0-4.8) 3.1 x10^3/uL (1.0-4.8) Monocytes # (Auto) 1.3 x10^3/uL (0.0-1.1) 1.3 x10^3/uL (0.0-1.1) Eosinophils # (Auto) 0.1 x10^3/uL (0.0-0.7) 0.1 x10^3/uL (0.0-0.7) Basophils # (Auto) 0.1 x10^3/uL (0.0-0.2) 0.1 x10^3/uL (0.0-0.2) Sodium Level 136 mmol/L (136-145) 134 mmol/L (136-145) Potassium Level 4.4 mmol/L (3.5-5.1) 4.7 mmol/L (3.5-5.1) Chloride Level 95 mmol/L (98-107) 92 mmol/L (98-107) Carbon Dioxide Level 22 mmol/L (21-32) 21 mmol/L (21-32) Anion Gap 19 (6-14) 21 (6-14) Blood Urea Nitrogen 92 mg/dL (8-26) 117 mg/dL (8-26) Creatinine 8.2 mg/dL (0.7-1.3) 10.6 mg/dL (0.7-1.3) Estimated GFR (Cockcroft-Gault) 6.9 5.1 BUN/Creatinine Ratio 11 (6-20) 11 (6-20) Glucose Level 115 mg/dL (70-99) 107 mg/dL (70-99) Calcium Level 6.8 mg/dL (8.5-10.1) 7.1 mg/dL (8.5-10.1) Total Bilirubin 0.8 mg/dL (0.2-1.0) 0.9 mg/dL (0.2-1.0) Aspartate Amino Transf (AST/SGOT) 40 U/L (15-37) 39 U/L (15-37) Alanine Aminotransferase (ALT/SGPT) 32 U/L (16-63) 36 U/L (16-63) Alkaline Phosphatase 116 U/L (46-116) 113 U/L (46-116) Total Protein 6.4 g/dL (6.4-8.2) 6.9 g/dL (6.4-8.2) Albumin 2.0 g/dL (3.4-5.0) 2.1 g/dL (3.4-5.0) Albumin/Globulin Ratio 0.5 (1.0-1.7) 0.4 (1.0-1.7) Laboratory Tests Test 09/10/18 04:45 White Blood Count 11.1 x10^3/uL (4.0-11.0) Red Blood Count 2.37 x10^6/uL (4.30-5.70) Hemoglobin 7.0 g/dL (13.0-17.5) Hematocrit 20.3 % (39.0-53.0) Mean Corpuscular Volume 86 fL (79-100) Mean Corpuscular Hemoglobin 29 pg (25-35) Mean Corpuscular Hemoglobin Concent 34 g/dL (31-37) Red Cell Distribution Width 18.4 % (11.5-14.5) Platelet Count 359 x10^3/uL (140-400) Neutrophils (%) (Auto) 58 % (31-73) Lymphocytes (%) (Auto) 28 % (24-48) Monocytes (%) (Auto) 12 % (0-9) Eosinophils (%) (Auto) 1 % (0-3) Basophils (%) (Auto) 1 % (0-3) Neutrophils # (Auto) 6.4 x10^3uL (1.8-7.7) Lymphocytes # (Auto) 3.1 x10^3/uL (1.0-4.8) Monocytes # (Auto) 1.3 x10^3/uL (0.0-1.1) Eosinophils # (Auto) 0.1 x10^3/uL (0.0-0.7) Basophils # (Auto) 0.1 x10^3/uL (0.0-0.2) Sodium Level 134 mmol/L (136-145) Potassium Level 4.7 mmol/L (3.5-5.1) Chloride Level 92 mmol/L (98-107) Carbon Dioxide Level 21 mmol/L (21-32) Anion Gap 21 (6-14) Blood Urea Nitrogen 117 mg/dL (8-26) Creatinine 10.6 mg/dL (0.7-1.3) Estimated GFR (Cockcroft-Gault) 5.1 BUN/Creatinine Ratio 11 (6-20) Glucose Level 107 mg/dL (70-99) Calcium Level 7.1 mg/dL (8.5-10.1) Total Bilirubin 0.9 mg/dL (0.2-1.0) Aspartate Amino Transf (AST/SGOT) 39 U/L (15-37) Alanine Aminotransferase (ALT/SGPT) 36 U/L (16-63) Alkaline Phosphatase 113 U/L (46-116) Total Protein 6.9 g/dL (6.4-8.2) Albumin 2.1 g/dL (3.4-5.0) Albumin/Globulin Ratio 0.4 (1.0-1.7) Medications Active Scripts Medications Dose Route/Sig Max Daily Dose Days Date Category Prednisone 20 Mg Tablet 1 Tab PO DAILY 08/26/18 Reported Hydrochlorothiazide Tablet (Hydrochlorothiazide) 12.5 Mg Tablet 12.5 Mg PO DAILY 08/26/18 Reported Shilpi Allergy (Fexofenadine Hcl) 180 Mg Tablet 1 Tab PO DAILY 08/26/18 Reported Potassium Chloride 20 Meq Tablet.er 20 Meq PO DAILY 08/24/18 Rx Orphenadrine Citrate 100 Mg Tablet.er 100 Mg PO Q12HR 02/03/16 Rx Anaprox Ds (Naproxen Sodium) 550 Mg Tablet 550 Mg PO Q12HR 02/03/16 Rx Impression . IMPRESSION: 1. Acute hypoxemic respiratory failure, multifactorial due to encephalopathy from suspected [employer] infection/ acute lung injury from recent infection. EXTUBATED 09/08 2. 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 Fever. RESOLVED 4. Lactic acidosis. 5. Acute renal failure. 6. Acute hepatic injury. 7. Thrombocytopenia, improving. 8. Hemochromatosis. 9. ACUTE TOXIC MET ENCEPH POA 10 DYSPHAGIA 11.ENCEPHALITIS 12. FUNGEMIA 13. ANEMIA Plan . PT OT SPEECH EXTUBATED 09/08 ANTIBX PER ID HD fu sputum cx , yeast, likely contaminant D/W RN, ANIT-FUNGAL PER ID D/W ANISH DENNIS MD Sep 10, 2018 09:22
--- NOTE | 2018-09-10 09:24 | PDOC ---
PROGRESS NOTES Chief Complaint Chief Complaint Sepsis Encephalopathy Encephalitis of undetermined etiology Respiratory failure Probable tick-borne illness, suspected. with h/o tick bite 3 weeks ago at [place] Lactic acidosis. Fever. Bandemia. Acute hepatic injury Acute kidney injury. Thrombocytopenia. Hemochromatosis. LLE dermatitis improving, ? poison shelby,resolving with local treatment History of Present Illness History of Present Illness Mr Kirk is a 52-year-old male with a past medical history of hemochromatosis who is pretty healthy otherwise and very active. About 3 weeks ago, he was at [facility] [place] and found a tick embedded on the back of his right thigh. He pulled it out and thought nothing of it. The next day, he was cleaning up a yard with a few other persons from [employer]. He recalls kneeling down on his left knee pulling wheat. A few days later, he developed an itchy red blistering rash on his left knee that improved with [id number] ivory rest. He then developed a different type of rash that was itchy, splotchy and red on the inner aspect of both arms. He was seen by his doctor and prescribed Bactrim for infection. 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 About a week later, on Friday 08/18, he went to a men's breakfast and a [employer] meeting. Afterwards, he felt unusually tired. Over the following 24 hours, he did not feel well. He developed fever, chills, joint pains and muscle aches. He alternated taking ibuprofen and Tylenol without relief. He was seen at urgent care center and prescribed prednisone for upper respiratory infection. Unfortunately, he felt worse. He lost his appetite and was not drinking much and was urinating less. His said he was sleeping more, moaned, seemed lethargic and confused, prompting the ER visit. On arrival to the ER, he had a temperature of 100.3, respiratory rate 28. Laboratory values returned abnormal with a WBC count 6.2, segs 68%, bands 24%, platelets 17,000. Lactic acid was 5.1. Sed rate 11. He had elevated LFTs and acute kidney injury. Cultures were ordered. He was dosed with vancomycin, ceftriaxone and aztreonam in the ER. ID adjusted his antibiotics to daptomycin, meropenem and doxycycline. He was feeling improved, then on 08/28/2018 continued to worsen, was started on dialysis, required increasing O2 and was placed on BIPAP and ultimately intubated on 08/31/2018. Serology for HIV, HSV, Moccasin spotted fever and Ehrlichia all thus negative. Had LP on 08/29/18 with increased protein. His spouse notes no recent travel, [place] time he was [place] of the [place] was [facility] [place]. 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 He struggled with infidelity over the last year and over the weekend had HIV testing consent per , this was negative as well as syphilis testing. 09/08: Extubated without event, able to get up to chair. Still on tube feeds and confused. Patient seen and examined in the ICU. is bedside today. He is extremely ill. Fungal cultures positive in blood. HD cath and CVC pulled 09/07/18 now with negative cultures will have reinsertion this morning. Plan for dialysis again today after. Hb 7.0 today. Typed and screened, will only transfuse per hematology and nephrology. Now without fevers after broadened coverage with ID including micafungin. Have d/w ID to broaden coverage further. He remains guardedly critically ill. INCLINED RAILWAY OPERATOR to evaluate today Once he has stable access and dialysis would be appropriate for further recovery at [facility], will d/w other subspecialists prior to decision. Vitals Vitals Vital Signs Date Time Temp Pulse Resp B/P (MAP) Pulse Ox O2 Delivery O2 Flow Rate FiO2 09/10/18 09:00 80 38 151/85 (107) 96 Nasal Cannula 3.0 09/10/18 08:00 97.7 97.7 Physical Exam Physical Exam GENERAL: Awake, calm, NAD - looks well HEENT: Pupils equal, NGT, oral cavity dry NECK: Supple. LUNGS: Clear anteriorly HEART: S1 and S2. regular ABDOMEN: + distention but less, soft, nontender, BS active, rectal tube out : Waters in place EXTREMITIES: No gross edema, no cyanosis. SKIN: Warm, rash UEs fading NEUROLOGIC: Awake, and alert Responds appropriately to questions and follows commands PIV General: Alert, No acute distress Heart: Normal S1, Normal S2 Lungs: Clear Abdomen: Soft, Other (TF infusing) Extremities: No clubbing, No cyanosis, No edema Skin: No significant lesion, Other (healing rash and excoriations on Left lower extremity. No obvious petechiae) Labs LABS Laboratory Tests Test 09/10/18 04:45 White Blood Count 11.1 x10^3/uL (4.0-11.0) Red Blood Count 2.37 x10^6/uL (4.30-5.70) Hemoglobin 7.0 g/dL (13.0-17.5) Hematocrit 20.3 % (39.0-53.0) Mean Corpuscular Volume 86 fL (79-100) Mean Corpuscular Hemoglobin 29 pg (25-35) Mean Corpuscular Hemoglobin Concent 34 g/dL (31-37) Red Cell Distribution Width 18.4 % (11.5-14.5) Platelet Count 359 x10^3/uL (140-400) Neutrophils (%) (Auto) 58 % (31-73) Lymphocytes (%) (Auto) 28 % (24-48) Monocytes (%) (Auto) 12 % (0-9) Eosinophils (%) (Auto) 1 % (0-3) Basophils (%) (Auto) 1 % (0-3) Neutrophils # (Auto) 6.4 x10^3uL (1.8-7.7) Lymphocytes # (Auto) 3.1 x10^3/uL (1.0-4.8) Monocytes # (Auto) 1.3 x10^3/uL (0.0-1.1) Eosinophils # (Auto) 0.1 x10^3/uL (0.0-0.7) Basophils # (Auto) 0.1 x10^3/uL (0.0-0.2) Sodium Level 134 mmol/L (136-145) Potassium Level 4.7 mmol/L (3.5-5.1) Chloride Level 92 mmol/L (98-107) Carbon Dioxide Level 21 mmol/L (21-32) Anion Gap 21 (6-14) Blood Urea Nitrogen 117 mg/dL (8-26) Creatinine 10.6 mg/dL (0.7-1.3) Estimated GFR (Cockcroft-Gault) 5.1 BUN/Creatinine Ratio 11 (6-20) Glucose Level 107 mg/dL (70-99) Calcium Level 7.1 mg/dL (8.5-10.1) Total Bilirubin 0.9 mg/dL (0.2-1.0) Aspartate Amino Transf (AST/SGOT) 39 U/L (15-37) Alanine Aminotransferase (ALT/SGPT) 36 U/L (16-63) Alkaline Phosphatase 113 U/L (46-116) Total Protein 6.9 g/dL (6.4-8.2) Albumin 2.1 g/dL (3.4-5.0) Albumin/Globulin Ratio 0.4 (1.0-1.7) Assessment and Plan Assessmemt and Plan Problems Medical Problems: (1) Acute renal failure Status: Acute Comment Review of Relevant I have reviewed the following items gera (where applicable) has been applied. Labs Laboratory Tests Test 09/08/18 10:54 09/09/18 04:40 09/10/18 04:45 O2 Saturation 97 % (92-99) Arterial Blood pH 7.44 (7.35-7.45) Arterial Blood pCO2 at Patient Temp 36 mmHg (35-46) Arterial Blood pO2 at Patient Temp 120 mmHg (75-108) Arterial Blood HCO3 24 mmol/L (21-28) Arterial Blood Base Excess 0 mmol/L (-3-3) FiO2 40 White Blood Count 9.4 x10^3/uL (4.0-11.0) 11.1 x10^3/uL (4.0-11.0) Red Blood Count 2.39 x10^6/uL (4.30-5.70) 2.37 x10^6/uL (4.30-5.70) Hemoglobin 7.1 g/dL (13.0-17.5) 7.0 g/dL (13.0-17.5) Hematocrit 20.6 % (39.0-53.0) 20.3 % (39.0-53.0) Mean Corpuscular Volume 86 fL (79-100) 86 fL (79-100) Mean Corpuscular Hemoglobin 30 pg (25-35) 29 pg (25-35) Mean Corpuscular Hemoglobin Concent 35 g/dL (31-37) 34 g/dL (31-37) Red Cell Distribution Width 18.7 % (11.5-14.5) 18.4 % (11.5-14.5) Platelet Count 345 x10^3/uL (140-400) 359 x10^3/uL (140-400) Neutrophils (%) (Auto) 58 % (31-73) 58 % (31-73) Lymphocytes (%) (Auto) 26 % (24-48) 28 % (24-48) Monocytes (%) (Auto) 14 % (0-9) 12 % (0-9) Eosinophils (%) (Auto) 1 % (0-3) 1 % (0-3) Basophils (%) (Auto) 1 % (0-3) 1 % (0-3) Neutrophils # (Auto) 5.5 x10^3uL (1.8-7.7) 6.4 x10^3uL (1.8-7.7) Lymphocytes # (Auto) 2.5 x10^3/uL (1.0-4.8) 3.1 x10^3/uL (1.0-4.8) Monocytes # (Auto) 1.3 x10^3/uL (0.0-1.1) 1.3 x10^3/uL (0.0-1.1) Eosinophils # (Auto) 0.1 x10^3/uL (0.0-0.7) 0.1 x10^3/uL (0.0-0.7) Basophils # (Auto) 0.1 x10^3/uL (0.0-0.2) 0.1 x10^3/uL (0.0-0.2) Sodium Level 136 mmol/L (136-145) 134 mmol/L (136-145) Potassium Level 4.4 mmol/L (3.5-5.1) 4.7 mmol/L (3.5-5.1) Chloride Level 95 mmol/L (98-107) 92 mmol/L (98-107) Carbon Dioxide Level 22 mmol/L (21-32) 21 mmol/L (21-32) Anion Gap 19 (6-14) 21 (6-14) Blood Urea Nitrogen 92 mg/dL (8-26) 117 mg/dL (8-26) Creatinine 8.2 mg/dL (0.7-1.3) 10.6 mg/dL (0.7-1.3) Estimated GFR (Cockcroft-Gault) 6.9 5.1 BUN/Creatinine Ratio 11 (6-20) 11 (6-20) Glucose Level 115 mg/dL (70-99) 107 mg/dL (70-99) Calcium Level 6.8 mg/dL (8.5-10.1) 7.1 mg/dL (8.5-10.1) Total Bilirubin 0.8 mg/dL (0.2-1.0) 0.9 mg/dL (0.2-1.0) Aspartate Amino Transf (AST/SGOT) 40 U/L (15-37) 39 U/L (15-37) Alanine Aminotransferase (ALT/SGPT) 32 U/L (16-63) 36 U/L (16-63) Alkaline Phosphatase 116 U/L (46-116) 113 U/L (46-116) Total Protein 6.4 g/dL (6.4-8.2) 6.9 g/dL (6.4-8.2) Albumin 2.0 g/dL (3.4-5.0) 2.1 g/dL (3.4-5.0) Albumin/Globulin Ratio 0.5 (1.0-1.7) 0.4 (1.0-1.7) Laboratory Tests Test 09/10/18 04:45 White Blood Count 11.1 x10^3/uL (4.0-11.0) Red Blood Count 2.37 x10^6/uL (4.30-5.70) Hemoglobin 7.0 g/dL (13.0-17.5) Hematocrit 20.3 % (39.0-53.0) Mean Corpuscular Volume 86 fL (79-100) Mean Corpuscular Hemoglobin 29 pg (25-35) Mean Corpuscular Hemoglobin Concent 34 g/dL (31-37) Red Cell Distribution Width 18.4 % (11.5-14.5) Platelet Count 359 x10^3/uL (140-400) Neutrophils (%) (Auto) 58 % (31-73) Lymphocytes (%) (Auto) 28 % (24-48) Monocytes (%) (Auto) 12 % (0-9) Eosinophils (%) (Auto) 1 % (0-3) Basophils (%) (Auto) 1 % (0-3) Neutrophils # (Auto) 6.4 x10^3uL (1.8-7.7) Lymphocytes # (Auto) 3.1 x10^3/uL (1.0-4.8) Monocytes # (Auto) 1.3 x10^3/uL (0.0-1.1) Eosinophils # (Auto) 0.1 x10^3/uL (0.0-0.7) Basophils # (Auto) 0.1 x10^3/uL (0.0-0.2) Sodium Level 134 mmol/L (136-145) Potassium Level 4.7 mmol/L (3.5-5.1) Chloride Level 92 mmol/L (98-107) Carbon Dioxide Level 21 mmol/L (21-32) Anion Gap 21 (6-14) Blood Urea Nitrogen 117 mg/dL (8-26) Creatinine 10.6 mg/dL (0.7-1.3) Estimated GFR (Cockcroft-Gault) 5.1 BUN/Creatinine Ratio 11 (6-20) Glucose Level 107 mg/dL (70-99) Calcium Level 7.1 mg/dL (8.5-10.1) Total Bilirubin 0.9 mg/dL (0.2-1.0) Aspartate Amino Transf (AST/SGOT) 39 U/L (15-37) Alanine Aminotransferase (ALT/SGPT) 36 U/L (16-63) Alkaline Phosphatase 113 U/L (46-116) Total Protein 6.9 g/dL (6.4-8.2) Albumin 2.1 g/dL (3.4-5.0) Albumin/Globulin Ratio 0.4 (1.0-1.7) Microbiology 09/08/18 Blood Culture - Preliminary, Resulted NO GROWTH AFTER 2 DAYS 08/29/18 CSF Gram Stain - Final, Complete 08/27/18 Stool Culture - Final, Complete 08/27/18 Stool Culture Result 1 (LOTUS) - Final, Complete 08/27/18 Campylobacter Antigen Assay - Final, Complete 08/27/18 Campylobactor Result 1 - Final, Complete 08/27/18 Shiga Toxin Test - Final, Complete 09/05/18 - Final, Complete 09/05/18 - Final, Complete 09/05/18 - Final, Complete 09/05/18 Gram Stain Evaluation - Final, Complete 09/05/18 Sputum Culture - Final, Complete 09/05/18 Sputum Result 1 - Final, Complete 09/04/18 Urine Culture - Final, Complete 09/04/18 Urine Culture Result 1 (LOTUS) - Final, Complete Medications Current Medications Sodium Chloride 1,000 ml @ 1,000 mls/hr 1X ONCE IV Last administered on 08/25/18 20:38; Start 08/25/18 at 19:15; Stop 08/25/18 at 20:14; Status DC Ibuprofen (Motrin) 600 mg 1X ONCE PO Last administered on 08/25/18at 20:38; Start 08/25/18 at 19:45; Stop 08/25/18 at 19:49; Status DC Sodium Chloride 1,000 ml @ 1,000 mls/hr 1X ONCE IV Last administered on 08/25/18at 20:30; Start 08/25/18 at 20:30; Stop 08/25/18 at 21:29; Status DC Ceftriaxone Sodium (Rocephin) 1 gm 1X ONCE IVP Last administered on 08/25/18at 20:36; Start 08/25/18 at 20:30; Stop 08/25/18 at 20:31; Status DC Vancomycin HCl 2 gm/Sodium Chloride 500 ml @ 250 mls/hr 1X ONCE IV Last administered on 08/25/18at 23:10; Start 08/25/18 at 21:30; Stop 08/25/18 at 23:29; Status DC Sodium Chloride 1,000 ml @ 1,000 mls/hr 1X ONCE IV Last administered on 08/25/18at 23:51; Start 08/25/18 at 21:00; Stop 08/25/18 at 21:59; Status DC Piperacillin Sod/ Tazobactam Sod 4.5 gm/Sodium Chloride 100 ml @ 200 mls/hr 1X ONCE IV ; Start 08/25/18 at 21:15; Stop 08/25/18 at 21:44; Status DC Aztreonam (Azactam) 2 gm 1X ONCE IVP Last administered on 08/25/18at 21:15; Start 08/25/18 at 21:15; Stop 08/25/18 at 21:16; Status DC Magnesium Sulfate 50 ml @ 25 mls/hr 1X ONCE IV Last administered on 08/25/18at 23:51; Start 08/25/18 at 21:15; Stop 08/25/18 at 23:14; Status DC Ondansetron HCl (Zofran) 4 mg PRN Q8HRS PRN IV NAUSEA/VOMITING; Start 08/25/18 at 21:15; Stop 08/26/18 at 21:14; Status DC Acetaminophen (Tylenol) 650 mg PRN Q4HRS PRN PO FEVER; Start 08/25/18 at 21:15; Stop 08/26/18 at 21:14; Status DC Sodium Chloride 1,000 ml @ 125 mls/hr 1X ONCE IV Last administered on 08/25/18at 23:09; Start 08/25/18 at 21:15; Stop 08/26/18 at 05:14; Status DC Daptomycin 610 mg/ Sodium Chloride 50 ml @ 100 mls/hr QODAY IV Last administered on 08/27/18at 08:59; Start 08/27/18 at 09:00; Stop 08/28/18 at 15:40; Status DC Meropenem 500 mg/ Sodium Chloride 50 ml @ 100 mls/hr 1X ONCE IV Last ad ministered on 08/25/18at 22:12; Start 08/25/18 at 22:00; Stop 08/25/18 at 22:29; Status DC Doxycycline Hyclate 100 mg/ Dextrose 100 ml @ 50 mls/hr Q12HR IV Last administered on 09/03/18at 22:11; Start 08/26/18 at 09:00; Stop 09/04/18 at 08:11; Status DC Meropenem 500 mg/ Sodium Chloride 50 ml @ 100 mls/hr DAILY IV Last administered on 08/29/18at 10:13; Start 08/26/18 at 09:00; Stop 08/30/18 at 08:17; Status DC Sodium Chloride (Normal Saline Flush) 10 ml QSHIFT PRN IV AFTER MEDS AND BLOOD DRAWS; Start 08/26/18 at 09:15 Norepinephrine Bitartrate 250 ml @ 0 mls/hr CONT PRN IV PER PROTOCOL Last administered on 08/27/18at 10:21; Start 08/26/18 at 09:15; Stop 08/30/18 at 17:20; Status DC Famotidine (Pepcid) 20 mg DAILY PO Last administered on 08/27/18at 08:14; Start 08/26/18 at 12:00; Stop 08/27/18 at 14:36; Status DC Sodium Chloride 1,000 ml @ 1,000 mls/hr Q1H PRN IV hypotension; Start 08/26/18 at 11:51; Stop 08/26/18 at 17:50; Status DC Sodium Chloride (Normal Saline Flush) 10 ml 1X PRN PRN IV AP catheter pack; Start 08/26/18 at 12:00; Stop 08/27/18 at 11:59; Status DC Sodium Chloride (Normal Saline Flush) 10 ml 1X PRN PRN IV SERVICE MANAGER catheter pack; Start 08/26/18 at 12:00; Stop 08/27/18 at 11:59; Status DC Sodium Chloride 1,000 ml @ 400 mls/hr Q2H30M PRN IV PATENCY; Start 08/26/18 at 11:51; Stop 08/26/18 at 23:50; Status DC Info (PHARMACY MONITORING -- do not chart) 1 each PRN DAILY PRN MC SEE COMMENTS; Start 08/26/18 at 12:00; Status UNV Info (PHARMACY MONITORING -- do not chart) 1 each PRN DAILY PRN MC SEE COMMENTS; Start 08/26/18 at 12:00; Stop 09/01/18 at 10:59; Status DC Lidocaine/Sodium Bicarbonate (Buffered Lidocaine 1%) 4 ml 1X ONCE INJ Last administered on 08/26/18at 12:45; Start 08/26/18 at 12:45; Stop 08/26/18 at 12:48; Status DC Heparin Sodium (Porcine) (Heparin Sodium) 2,500 unit 1X ONCE INT CAT Last administered on 08/26/18at 12:45; Start 08/26/18 at 12:45; Stop 08/26/18 at 12:48; Status DC Lidocaine/Sodium Bicarbonate (Buffered Lidocaine 1%) 3 ml STK-MED ONCE .ROUTE ; Start 08/26/18 at 12:49; Stop 08/26/18 at 12:50; Status DC Heparin Sodium (Porcine) (Heparin Sodium) 10,000 unit STK-MED ONCE .ROUTE ; Start 08/26/18 at 12:49; Stop 08/26/18 at 12:50; Status DC Lactobacillus Rhamnosus (Culturelle) 1 cap BID PO Last administered on 09/08/18at 09:34; Start 08/26/18 at 21:00; Stop 09/08/18 at 10:55; Status DC Acetaminophen (Tylenol) 325 mg STK-MED ONCE PO ; Start 08/27/18 at 00:43; Stop 08/27/18 at 00:44; Status DC Sodium Chloride 1,000 ml @ 1,000 mls/hr 1X ONCE IV Last administered on at 11:05; Start 08/27/18 at 10:30; Stop 08/27/18 at 11:29; Status DC Sodium Chloride 1,000 ml @ 1,000 mls/hr Q1H PRN IV hypotension; Start 08/27/18 at 11:28; Stop 08/27/18 at 17:27; Status DC Albumin Human 200 ml @ 200 mls/hr 1X PRN PRN IV Hypotension; Start 08/27/18 at 11:30; Stop 08/27/18 at 17:29; Status DC Sodium Chloride (Normal Saline Flush) 10 ml 1X PRN PRN IV AP catheter pack; Start 08/27/18 at 11:30; Stop 08/28/18 at 11:29; Status DC Sodium Chloride (Normal Saline Flush) 10 ml 1X PRN PRN IV SERVICE MANAGER catheter pack; Start 08/27/18 at 11:30; Stop 08/28/18 at 11:29; Status DC Sodium Chloride 1,000 ml @ 400 mls/hr Q2H30M PRN IV PATENCY; Start 08/27/18 at 11:28; Stop 08/27/18 at 23:27; Status DC Info (PHARMACY MONITORING -- do not chart) 1 each PRN DAILY PRN MC SEE COMMENTS; Start 08/27/18 at 11:30; Status UNV Info (PHARMACY MONITORING -- do not chart) 1 each PRN DAILY PRN MC SEE COMMENTS; Start 08/27/18 at 11:30; Status UNV Famotidine (Pepcid) 20 mg Q48H PO ; Start 08/29/18 at 09:00; Stop 08/29/18 at 11:29; Status DC Acetaminophen (Tylenol) 650 mg PRN Q6HRS PRN PO mild pain/fever; Start 08/27/18 at 21:15 Acetaminophen (Tylenol Supp) 650 mg PRN Q6HRS PRN AK MILD PAIN / TEMP Last administered on 09/02/18at 01:18; Start 08/27/18 at 21:15 Fentanyl Citrate (Fentanyl 2ml Vial) 25 mcg 1X ONCE IV Last administered on 08/28/18at 08:54; Start 08/28/18 at 08:45; Stop 08/28/18 at 08:47; Status DC Lidocaine/Sodium Bicarbonate (Buffered Lidocaine 1%) 3 ml STK-MED ONCE .ROUTE ; Start 08/28/18 at 09:55; Stop 08/28/18 at 09:56; Status DC Lidocaine HCl (Glydo (Lidocaine) Jelly) 1 meng 1X STAT MM Last administered on 08/28/18at 10:16; Start 08/28/18 at 10:16; Stop 08/28/18 at 10:19; Status DC Benzocaine (Hurricaine One) 1 spray 1X STAT MM Last administered on 08/28/18at 10:16; Start 08/28/18 at 10:16; Stop 08/28/18 at 10:19; Status DC Lidocaine/Sodium Bicarbonate (Buffered Lidocaine 1%) 3 ml 1X ONCE INJ ; Start 08/28/18 at 10:30; Stop 08/28/18 at 10:31; Status DC Haloperidol Lactate (Haldol Inj) 5 mg PRN Q6HRS PRN IVP AGITATION Last administered on 09/06/18at 05:53; Start 08/28/18 at 12:00 Fentanyl Citrate (Fentanyl 2ml Vial) 50 mcg PRN Q4HRS PRN IV PAIN Last administered on 08/28/18at 21:44; Start 08/28/18 at 15:30; Stop 09/05/18 at 02:11; Status DC Sodium Chloride 1,000 ml @ 1,000 mls/hr Q1H PRN IV hypotension; Start 08/28/18 at 14:00; Stop 08/28/18 at 19:59; Status DC Albumin Human 200 ml @ 200 mls/hr 1X PRN PRN IV Hypotension Last administered on 08/28/18at 14:50; Start 08/28/18 at 14:00; Stop 09/03/18 at 18:17; Status DC Sodium Chloride 1,000 ml @ 400 mls/hr Q2H30M PRN IV PATENCY; Start 08/28/18 at 14:00; Stop 08/29/18 at 01:59; Status DC Info (PHARMACY MONITORING -- do not chart) 1 each PRN DAILY PRN MC SEE COMMENTS; Start 08/28/18 at 15:30; Status UNV Info (PHARMACY MONITORING -- do not chart) 1 each PRN DAILY PRN MC SEE COMMENTS; Start 08/28/18 at 15:30; Status UNV Daptomycin 610 mg/ Sodium Chloride 50 ml @ 100 mls/hr Q48H IV ; Start 08/30/18 at 16:00; Stop 08/30/18 at 16:00; Status DC Famotidine (Pepcid Vial) 20 mg QHS IVP Last administered on 08/31/18at 20:59; Start 08/29/18 at 21:00; Stop 09/01/18 at 11:00; Status DC Acyclovir Sodium 340 mg/Dextrose 106.8 ml @ 106.8 mls/ hr Q12HR IV Last administered on 09/01/18at 11:05; Start 08/30/18 at 09:00; Stop 09/01/18 at 13:37; Status DC Sodium Chloride 1,000 ml @ 1,000 mls/hr Q1H PRN IV hypotension; Start 08/30/18 at 11:02; Stop 08/30/18 at 17:01; Status DC Sodium Chloride 1,000 ml @ 400 mls/hr Q2H30M PRN IV PATENCY; Start 08/30/18 at 11:02; Stop 08/30/18 at 23:01; Status DC Info (PHARMACY MONITORING -- do not chart) 1 each PRN DAILY PRN MC SEE COMMENTS; Start 08/30/18 at 11:15; Status UNV Info (PHARMACY MONITORING -- do not chart) 1 each PRN DAILY PRN MC SEE COMMENTS; Start 08/30/18 at 11:15; Status UNV Info (Tpn Per Pharmacy) 1 each PRN DAILY PRN MC SEE COMMENTS Last administered on 09/03/18at 10:53; Start 08/30/18 at 12:45; Stop 09/04/18 at 12:50; Status DC Sodium Chloride 90 meq/Potassium Chloride 50 meq/ Potassium Phosphate 3 mmol/ Magnesium Sulfate 10 meq/Calcium Gluconate 10 meq/ Multivitamins 10 ml/Chromium/ Copper/Manganese/ Seleni/Zn 1 ml/ Total Parenteral Nutrition/Amino Acids/Dextrose/ Fat Emulsion Intravenous 1,512 ml @ 63 mls/hr TPN CONT IV Last administered on 08/30/18at 21:40; Start 08/30/18 at 22:00; Stop 08/31/18 at 21:59; Status DC Ondansetron HCl (Zofran) 4 mg PRN Q6HRS PRN IV NAUSEA/VOMITING; Start 08/31/18 at 08:00 Haloperidol (Haldol) 2 mg PRN QID PRN PO AGITATION; Start 08/31/18 at 08:00; Stop 08/31/18 at 12:43; Status DC Haloperidol Lactate (HALDOL 2mg ORAL CONC) 2 mg PRN QID PRN PO AGITATION; Start 08/31/18 at 12:43 Sodium Chloride 90 meq/Potassium Chloride 50 meq/ Potassium Phosphate 5 mmol/ Magnesium Sulfate 3 meq/Calcium Gluconate 10 meq/ Multivitamins 10 ml/Chromium/ Copper/Manganese/ Seleni/Zn 1 ml/ Total Parenteral Nutrition/Amino Acids/Dextrose 1,512 ml @ 63 mls/hr TPN CONT IV Last administered on 08/31/18at 20:59; Start 08/31/18 at 22:00; Stop 09/01/18 at 21:59; Status DC Propofol 100 ml @ As Directed STK-MED ONCE IV ; Start 08/31/18 at 22:45; Stop 08/31/18 at 22:46; Status DC Succinylcholine Chloride (Anectine) 200 mg STK-MED ONCE .ROUTE ; Start 08/31/18 at 22:46; Stop 08/31/18 at 22:47; Status DC Atropine Sulfate (ATROPINE 1mg SYRINGE) 1 mg STK-MED ONCE .ROUTE ; Start 08/31/18 at 22:58; Stop 08/31/18 at 22:59; Status DC Fentanyl Citrate 30 ml @ 0 mls/hr CONT PRN IV SEE PROTOCOL Last administered on 09/06/18at 10:39; Start 09/01/18 at 00:00; Stop 09/06/18 at 10:59; Status DC Propofol 100 ml @ 0 mls/hr CONT PRN IV SEE PROTOCOL Last administered on 09/06/18at 08:14; Start 09/01/18 at 00:00; Stop 09/06/18 at 10:59; Status DC Chlorhexidine Gluconate (Peridex) 15 ml BID MM Last administered on 09/07/18at 21:21; Start 09/01/18 at 09:00; Stop 09/08/18 at 08:04; Status DC Midazolam HCl 100 ml @ 0 mls/hr CONT PRN IV SEE PROTOCOL; Start 09/01/18 at 00:00; Stop 09/08/18 at 11:30; Status DC Albuterol/ Ipratropium (Duoneb) 3 ml RTQID NEB Last administered on 09/10/18at 08:01; Start 09/01/18 at 08:00 Albuterol/ Ipratropium (Duoneb) 3 ml 1X ONCE NEB Last administered on 09/01/18at 01:10; Start 09/01/18 at 01:00; Stop 09/01/18 at 01:01; Status DC Succinylcholine Chloride (Anectine) 200 mg 1X ONCE IV Last administered on 08/31/18at 23:04; Start 09/01/18 at 01:15; Stop 09/01/18 at 01:16; Status DC Sodium Chloride 1,000 ml @ 1,000 mls/hr Q1H PRN IV hypotension; Start 09/01/18 at 07:00; Stop 09/01/18 at 12:59; Status DC Sodium Chloride (Normal Saline Flush) 10 ml 1X PRN PRN IV AP catheter pack; Start 09/01/18 at 07:00; Stop 09/02/18 at 06:59; Status DC Sodium Chloride (Normal Saline Flush) 10 ml 1X PRN PRN IV [employer]ICE MA[employer]GER catheter pack; Start 09/01/18 at 07:00; Stop 09/02/18 at 06:59; Status DC Sodium Chloride 1,000 ml @ 400 mls/hr Q2H30M PRN IV PATENCY; Start 09/01/18 at 07:00; Stop 09/01/18 at 18:59; Status DC Info (PHARMACY MONITORING -- do not chart) 1 each PRN DAILY PRN MC SEE COM MENTS; Start 09/01/18 at 11:00; Status Cancel Info (PHARMACY MONITORING -- do not chart) 1 each PRN DAILY PRN MC SEE COMMENTS; Start 09/01/18 at 11:00; Status Cancel Famotidine (Pepcid Vial) 20 mg Q48H IVP Last administered on 09/09/18at 21:22; Start 09/03/18 at 21:00 Sodium Chloride 90 meq/Potassium Chloride 50 meq/ Potassium Phosphate 10 mmol/ Calcium Gluconate 10 meq/ Multivitamins 10 ml/Chromium/ Copper/Manganese/ Seleni/Zn 1 ml/ Total Parenteral Nutrition/Amino Acids/Dextrose 1,512 ml @ 63 mls/hr TPN CONT IV Last administered on 09/01/18at 22:11; Start 09/01/18 at 22:00; Stop 09/02/18 at 21:59; Status DC Piperacillin Sod/ Tazobactam Sod 2.25 gm/Sodium Chloride 50 ml @ 100 mls/hr Q6HRS IV Last administered on 09/10/18at 05:31; Start 09/01/18 at 14:00 Sodium Chloride 110 meq/Potassium Chloride 50 meq/ Potassium Phosphate 10 mmol/ Calcium Gluconate 10 meq/ Multivitamins 10 ml/Chromium/ Copper/Manganese/ Seleni/Zn 1 ml/ Magnesium Sulfate 3 meq/Total Parenteral Nutrition/Amino Acids/Dextrose 1,512 ml @ 63 mls/hr TPN CONT IV Last administered on 09/02/18at 22:13; Start 09/02/18 at 22:00; Stop 09/03/18 at 21:59; Status DC Darbepoetin Phil (Aranesp) 100 mcg [id number] SQ Last administered on 09/03/18at 22:11; Start 09/03/18 at 21:00 Sodium Chloride 130 meq/Potassium Acetate 20 meq/ Calcium Gluconate 10 meq/ Multivitamins 10 ml/Chromium/ Copper/Manganese/ Seleni/Zn 1 ml/ Magnesium [place] lfate 3 meq/Total Parenteral Nutrition/Amino Acids/Dextrose 1,512 ml @ 63 mls/hr TPN CONT IV Last administered on 09/03/18at 22:12; Start 09/03/18 at 22:00; Stop 09/04/18 at 21:59; Status DC Albumin Human 200 ml @ 200 mls/hr 1X PRN PRN IV Hypotension; Start 09/03/18 at 10:00; Stop 09/03/18 at 21:00; Status DC Sodium Chloride (Normal Saline Flush) 10 ml 1X PRN PRN IV AP catheter pack; Start 09/03/18 at 10:00; Stop 09/03/18 at 21:00; Status DC Sodium Chloride (Normal Saline Flush) 10 ml 1X PRN PRN IV SERVICE MANAGER catheter pack; Start 09/03/18 at 10:00; Stop 09/03/18 at 21:00; Status DC Sodium Chloride 1,000 ml @ 400 mls/hr Q2H30M PRN IV PATENCY; Start 09/03/18 at 10:00; Stop 09/03/18 at 21:59; Status DC Info (PHARMACY MONITORING -- do not chart) 1 each PRN DAILY PRN MC SEE COMMENTS; Start 09/03/18 at 18:15; Status UNV Atropine Sulfate (ATROPINE 0.5mg SYRINGE) 0.5 mg STK-MED ONCE .ROUTE ; Start 08/31/18 at 08:06; Stop 09/04/18 at 08:07; Status DC Epinephrine HCl (EPINEPHrine SYRINGE) 3 mg STK-MED ONCE .ROUTE ; Start 08/31/18 at 08:06; Stop 09/04/18 at 08:07; Status DC Sodium Bicarbonate (Sodium Bicarb Adult 8.4% Syr) 100 meq STK-MED ONCE .ROUTE ; Start 08/31/18 at 08:06; Stop 09/04/18 at 08:07; Status DC Levofloxacin/ Dextrose 150 ml @ 100 mls/hr QODAY IV Last administered on 09/06/18at 10:28; Start 09/04/18 at 09:00; Stop 09/07/18 at 07:52; Status DC Sodium Chloride 1,000 ml @ 1,000 mls/hr Q1H PRN IV hypotension; Start 09/04/18 at 08:23; Stop 09/04/18 at 14:24; Status DC Albumin Human 200 ml @ 200 mls/hr 1X PRN PRN IV Hypotension; Start 09/04/18 at 08:30; Stop 09/04/18 at 14:29; Status DC Sodium Chloride 1,000 ml @ 400 mls/hr Q2H30M PRN IV PATENCY; Start 09/04/18 at 08:23; Stop 09/04/18 at 20:22; Status DC Info (PHARMACY MONITORING -- do not chart) 1 each PRN DAILY PRN MC SEE COMMENTS; Start 09/04/18 at 08:30; Stop 09/05/18 at 08:55; Status DC Info (PHARMACY MONITORING -- do not chart) 1 each PRN DAILY PRN MC SEE COMMENTS; Start 09/04/18 at 08:30; Status UNV Linezolid/Dextrose 300 ml @ 300 mls/hr Q12HR IV Last administered on 09/09/18at 21:21; Start 09/05/18 at 09:30; Stop 09/10/18 at 07:34; Status DC Sodium Chloride 1,000 ml @ 1,000 mls/hr Q1H PRN IV hypotension; Start 09/05/18 at 08:51; Stop 09/05/18 at 14:50; Status DC Sodium Chloride (Normal Saline Flush) 10 ml 1X PRN PRN IV AP catheter pack; Start 09/05/18 at 09:00; Stop 09/06/18 at 08:59; Status DC Sodium Chloride (Normal Saline Flush) 10 ml 1X PRN PRN IV SERVICE MANAGER catheter pack; Start 09/05/18 at 09:00; Stop 09/06/18 at 08:59; Status DC Sodium Chloride 1,000 ml @ 400 mls/hr Q2H30M PRN IV PATENCY; Start 09/05/18 at 08:51; Stop 09/05/18 at 20:50; Status DC Info (PHARMACY MONITORING -- do not chart) 1 each PRN DAILY PRN MC SEE COMMENTS; Start 09/05/18 at 09:00; Stop 09/05/18 at 09:00; Status DC Info (PHARMACY MONITORING -- do not chart) 1 each PRN DAILY PRN MC SEE COMMENTS; Start 09/05/18 at 09:00; Status Cancel Fentanyl Citrate (Fentanyl 2ml Vial) 25 mcg PRN Q2HR PRN IV MODERATE PAIN Last administered on 09/08/18at 04:34; Start 09/06/18 at 11:00 Dexmedetomidine HCl 200 mcg/ Sodium Chloride 50 ml @ 0 mls/hr CONT PRN IV PER PROTOCOL; Start 09/06/18 at 11:00; Stop 09/08/18 at 08:03; Status DC Sodium Chloride 500 ml @ 500 mls/hr 1X PRN PRN IV SEE COMMENTS; Start 09/06/18 at 11:00 Atropine Sulfate (ATROPINE 0.5mg SYRINGE) 0.5 mg PRN Q5MIN PRN IV SEE COMMENTS; Start 09/06/18 at 11:00 Sodium Chloride 1,000 ml @ 1,000 mls/hr Q1H PRN IV hypotension; Start 09/06/18 at 11:52; Stop 09/06/18 at 17:51; Status DC Diphenhydramine HCl (Benadryl) 25 mg 1X PRN PRN IV ITCHING; Start 09/06/18 at 12:00; Stop 09/07/18 at 11:59; Status DC Diphenhydramine HCl (Benadryl) 25 mg 1X PRN PRN IV ITCHING; Start 09/06/18 at 12:00; Stop 09/07/18 at 11:59; Status DC Sodium Chloride 1,000 ml @ 400 mls/hr Q2H30M PRN IV PATENCY; Start 09/06/18 at 11:52; Stop 09/06/18 at 23:51; Status DC Info (PHARMACY MONITORING -- do not chart) 1 each PRN DAILY PRN MC SEE COMMENTS; Start 09/06/18 at 12:00; Stop 09/06/18 at 12:00; Status DC Micafungin Sodium 100 mg/Dextrose 100 ml @ 100 mls/hr Q24H IV Last administered on 09/10/18at 08:09; Start 09/07/18 at 08:30 Sodium Chloride 1,000 ml @ 1,000 mls/hr Q1H PRN IV hypotension; Start 09/07/18 at 16:29; Stop 09/07/18 at 22:28; Status DC Diphenhydramine HCl (Benadryl) 25 mg 1X PRN PRN IV ITCHING; Start 09/07/18 at 16:30; Stop 09/08/18 at 16:29; Status DC Diphenhydramine HCl (Benadryl) 25 mg 1X PRN PRN IV ITCHING; Start 09/07/18 at 16:30; Stop 09/08/18 at 16:29; Status DC Sodium Chloride 1,000 ml @ 400 mls/hr Q2H30M PRN IV PATENCY; Start 09/07/18 at 16:29; Stop 09/08/18 at 04:28; Status DC Info (PHARMACY MONITORING -- do not chart) 1 each PRN DAILY PRN MC SEE C OMMENTS; Start 09/07/18 at 16:30 Lidocaine/Sodium Bicarbonate (Buffered Lidocaine 1%) 3 ml 1X ONCE INJ ; Start 09/10/18 at 08:45; Stop 09/10/18 at 08:46; Status DC Heparin Sodium (Porcine) (Heparin Sodium) 2,400 unit 1X ONCE INT CAT ; Start 09/10/18 at 08:45; Stop 09/10/18 at 08:46; Status DC Active Scripts Active Potassium Chloride 20 Meq Tablet.er 20 Meq PO DAILY Orphenadrine Citrate 100 Mg Tablet.er 100 Mg PO Q12HR Anaprox Ds (Naproxen Sodium) 550 Mg Tablet 550 Mg PO Q12HR Reported Prednisone 20 Mg Tablet 1 Tab PO DAILY Hydrochlorothiazide Tablet (Hydrochlorothiazide) 12.5 Mg Tablet 12.5 Mg PO DAILY Shilpi Allergy (Fexofenadine Hcl) 180 Mg Tablet 1 Tab PO DAILY Vitals/I & O Vital Sign - Last 24 Hours 09/09/18 09/09/18 09/09/18 09/09/18 10:00 11:00 11:51 12:00 Temp 98.2 98.2 Pulse 92 94 96 Resp 36 28 34 B/P (MAP) 136/71 (92) 128/75 (92) 135/69 (91) Pulse Ox 99 99 96 99 O2 Delivery Nasal Cannula Nasal Cannula Nasal Cannula Nasal Cannula O2 Flow Rate 3.0 3.0 3.0 3.0 09/09/18 09/09/18 09/09/18 09/09/18 12:00 13:00 14:00 15:00 Pulse 88 88 86 Resp 16 28 32 B/P (MAP) 131/75 (93) 134/72 (92) 133/73 (93) Pulse Ox 99 99 99 O2 Delivery Nasal Cannula Nasal Cannula Nasal Cannula Nasal Cannula O2 Flow Rate 4.0 3.0 3.0 3.0 09/09/18 09/09/18 09/09/18 09/09/18 16:00 16:00 16:00 17:00 Temp 98.7 98.7 Pulse 86 86 Resp 36 32 B/P (MAP) 142/79 (100) 143/75 (97) Pulse Ox 99 95 99 O2 Delivery Nasal Cannula Nasal Cannula Nasal Cannula Nasal Cannula O2 Flow Rate 3.0 4.0 2.0 3.0 09/09/18 09/09/18 09/09/18 09/09/18 18:00 19:00 20:00 20:00 Temp 98.5 98.5 Pulse 86 86 84 Resp 32 39 38 B/P (MAP) 140/78 (98) 133/77 (95) 134/73 (93) Pulse Ox 99 96 94 O2 Delivery Nasal Cannula Nasal Cannula Nasal Cannula Nasal Cannula O2 Flow Rate 3.0 3.0 3.0 3.0 09/09/18 09/09/18 09/09/18 09/10/18 20:03 21:00 22:00 00:00 Pulse 82 85 Resp 32 34 B/P (MAP) 137/74 (95) 142/79 (100) Pulse Ox 97 95 96 O2 Delivery Nasal Cannula Nasal Cannula Nasal Cannula Nasal Cannula O2 Flow Rate 2.0 3.0 3.0 3.0 09/10/18 09/10/18 09/10/18 09/10/18 00:02 01:00 02:00 03:00 Temp 98.5 98.5 Pulse 86 84 85 85 Resp 34 37 43 38 B/P (MAP) 147/74 (98) 139/72 (94) 149/72 (97) 144/75 (98) Pulse Ox 95 95 95 94 O2 Delivery Nasal Cannula Nasal Cannula Nasal Cannula Nasal Cannula O2 Flow Rate 3.0 3.0 3.0 3.0 09/10/18 09/10/18 09/10/18 09/10/18 03:47 04:20 05:00 06:08 Temp 99.4 99.4 Pulse 80 86 83 Resp 37 34 42 B/P (MAP) 153/81 (105) 153/81 (105) 150/76 (100) Pulse Ox 96 94 97 O2 Delivery Nasal Cannula Nasal Cannula Nasal Cannula Nasal Cannula O2 Flow Rate 3.0 3.0 3.0 3.0 09/10/18 09/10/18 09/10/18 09/10/18 07:00 08:00 08:00 08:02 Temp 97.7 97.7 Pulse 85 82 Resp 38 40 B/P (MAP) 151/77 (101) 150/86 (107) Pulse Ox 97 97 97 O2 Delivery Nasal Cannula Nasal Cannula Nasal Cannula Nasal Cannula O2 Flow Rate 3.0 3.0 3.0 3.0 09/10/18 09:00 Pulse 80 Resp 38 B/P (MAP) 151/85 (107) Pulse Ox 96 O2 Delivery Nasal Cannula O2 Flow Rate 3.0 Intake and Output 09/09/18 09/09/18 09/10/18 15:00 23:00 07:00 Intake Total 300 ml 1355 ml 353 ml Output Total 35 ml 15 ml 100 ml Balance 265 ml 1340 ml 253 ml VIJAY BLEVINS MD Sep 10, 2018 09:24
--- NOTE | 2018-09-10 09:38 | PDOC ---
Subjective: Subjective: asks if he can eat if he passes swallow eval. Objective: Objective: Reviewed w/ RN - to have HD cath replaced today, loose stools, tolerating tube feeds, no bleeding. 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 Vital Signs: Vital Signs Date Time Temp Pulse Resp B/P (MAP) Pulse Ox O2 Delivery O2 Flow Rate FiO2 09/10/18 09:00 80 38 151/85 (107) 96 Nasal Cannula 3.0 09/10/18 08:00 97.7 97.7 Labs: Laboratory Tests Test 09/10/18 04:45 White Blood Count 11.1 x10^3/uL Red Blood Count 2.37 x10^6/uL Hemoglobin 7.0 g/dL Hematocrit 20.3 % Mean Corpuscular Volume 86 fL Mean Corpuscular Hemoglobin 29 pg Mean Corpuscular Hemoglobin Concent 34 g/dL Red Cell Distribution Width 18.4 % Platelet Count 359 x10^3/uL Neutrophils (%) (Auto) 58 % Lymphocytes (%) (Auto) 28 % Monocytes (%) (Auto) 12 % Eosinophils (%) (Auto) 1 % Basophils (%) (Auto) 1 % Neutrophils # (Auto) 6.4 x10^3uL Lymphocytes # (Auto) 3.1 x10^3/uL Monocytes # (Auto) 1.3 x10^3/uL Eosinophils # (Auto) 0.1 x10^3/uL Basophils # (Auto) 0.1 x10^3/uL Sodium Level 134 mmol/L Potassium Level 4.7 mmol/L Chloride Level 92 mmol/L Carbon Dioxide Level 21 mmol/L Anion Gap 21 Blood Urea Nitrogen 117 mg/dL Creatinine 10.6 mg/dL Estimated GFR (Cockcroft-Gault) 5.1 BUN/Creatinine Ratio 11 Glucose Level 107 mg/dL Calcium Level 7.1 mg/dL Total Bilirubin 0.9 mg/dL Aspartate Amino Transf (AST/SGOT) 39 U/L Alanine Aminotransferase (ALT/SGPT) 36 U/L Alkaline Phosphatase 113 U/L Total Protein 6.9 g/dL Albumin 2.1 g/dL Albumin/Globulin Ratio 0.4 PE: GEN: NAD LUNGS: NC, some tachypnea HEART: RRR ABD: soft, non-tender NEURO/PSYCH: A & O - waves hello A/P: MOSF, fungemia Anemia - Hgb to 7 Loose stools - C Diff neg -- Plans as above. EVLIA NOE Sep 10, 2018 09:38
--- NOTE | 2018-09-10 09:58 | PDOC ---
PROGRESS NOTES Assessment Problems Medical Problems: (1) Acute renal failure Status: Acute Metabolic encephalopathy, much better. 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 Hold on repeating lumbar puncture, especially since he was mostly lucid before requiring intubation Discussed with Subjective Denies pain Objective Vital Signs Date Time Temp Pulse Resp B/P (MAP) Pulse Ox O2 Delivery O2 Flow Rate FiO2 09/10/18 09:00 80 38 151/85 (107) 96 Nasal Cannula 3.0 09/10/18 08:00 97.7 97.7 Intake and Output 09/10/18 07:00 Intake Total 2008 ml Output Total 150 ml Balance 1858 ml Intake Oral 0 ml Tube Feeding 1558 ml Other 450 ml Output Urine Total 150 ml # Bowel Movements 4 PHYSICAL EXAM Alert, knows name of hospital, not date, speech fluent, follows commands PERRL. EOMI. CN: no focal findings. Muscle tone: normal. Muscle strength: 4/5 DTR: 1+ Plantar reflex: silent Gait: not examined in bed. Sensory exam: no abnormal findings. No cerebellar signs elicited. Review of Relevant I have reviewed the following items gera (where applicable) has been applied. Labs Laboratory Tests Test 09/08/18 10:54 09/09/18 04:40 09/10/18 04:45 O2 Saturation 97 % (92-99) Arterial Blood pH 7.44 (7.35-7.45) Arterial Blood pCO2 at Patient Temp 36 mmHg (35-46) Arterial Blood pO2 at Patient Temp 120 mmHg (75-108) Arterial Blood HCO3 24 mmol/L (21-28) Arterial Blood Base Excess 0 mmol/L (-3-3) FiO2 40 White Blood Count 9.4 x10^3/uL (4.0-11.0) 11.1 x10^3/uL (4.0-11.0) Red Blood Count 2.39 x10^6/uL (4.30-5.70) 2.37 x10^6/uL (4.30-5.70) Hemoglobin 7.1 g/dL (13.0-17.5) 7.0 g/dL (13.0-17.5) Hematocrit 20.6 % (39.0-53.0) 20.3 % (39.0-53.0) Mean Corpuscular Volume 86 fL (79-100) 86 fL (79-100) Mean Corpuscular Hemoglobin 30 pg (25-35) 29 pg (25-35) Mean Corpuscular Hemoglobin Concent 35 g/dL (31-37) 34 g/dL (31-37) Red Cell Distribution Width 18.7 % (11.5-14.5) 18.4 % (11.5-14.5) Platelet Count 345 x10^3/uL (140-400) 359 x10^3/uL (140-400) Neutrophils (%) (Auto) 58 % (31-73) 58 % (31-73) Lymphocytes (%) (Auto) 26 % (24-48) 28 % (24-48) Monocytes (%) (Auto) 14 % (0-9) 12 % (0-9) Eosinophils (%) (Auto) 1 % (0-3) 1 % (0-3) Basophils (%) (Auto) 1 % (0-3) 1 % (0-3) Neutrophils # (Auto) 5.5 x10^3uL (1.8-7.7) 6.4 x10^3uL (1.8-7.7) Lymphocytes # (Auto) 2.5 x10^3/uL (1.0-4.8) 3.1 x10^3/uL (1.0-4.8) Monocytes # (Auto) 1.3 x10^3/uL (0.0-1.1) 1.3 x10^3/uL (0.0-1.1) Eosinophils # (Auto) 0.1 x10^3/uL (0.0-0.7) 0.1 x10^3/uL (0.0-0.7) Basophils # (Auto) 0.1 x10^3/uL (0.0-0.2) 0.1 x10^3/uL (0.0-0.2) Sodium Level 136 mmol/L (136-145) 134 mmol/L (136-145) Potassium Level 4.4 mmol/L (3.5-5.1) 4.7 mmol/L (3.5-5.1) Chloride Level 95 mmol/L (98-107) 92 mmol/L (98-107) Carbon Dioxide Level 22 mmol/L (21-32) 21 mmol/L (21-32) Anion Gap 19 (6-14) 21 (6-14) Blood Urea Nitrogen 92 mg/dL (8-26) 117 mg/dL (8-26) Creatinine 8.2 mg/dL (0.7-1.3) 10.6 mg/dL (0.7-1.3) Estimated GFR (Cockcroft-Gault) 6.9 5.1 BUN/Creatinine Ratio 11 (6-20) 11 (6-20) Glucose Level 115 mg/dL (70-99) 107 mg/dL (70-99) Calcium Level 6.8 mg/dL (8.5-10.1) 7.1 mg/dL (8.5-10.1) Total Bilirubin 0.8 mg/dL (0.2-1.0) 0.9 mg/dL (0.2-1.0) Aspartate Amino Transf (AST/SGOT) 40 U/L (15-37) 39 U/L (15-37) Alanine Aminotransferase (ALT/SGPT) 32 U/L (16-63) 36 U/L (16-63) Alkaline Phosphatase 116 U/L (46-116) 113 U/L (46-116) Total Protein 6.4 g/dL (6.4-8.2) 6.9 g/dL (6.4-8.2) Albumin 2.0 g/dL (3.4-5.0) 2.1 g/dL (3.4-5.0) Albumin/Globulin Ratio 0.5 (1.0-1.7) 0.4 (1.0-1.7) Laboratory Tests Test 09/10/18 04:45 White Blood Count 11.1 x10^3/uL (4.0-11.0) Red Blood Count 2.37 x10^6/uL (4.30-5.70) Hemoglobin 7.0 g/dL (13.0-17.5) Hematocrit 20.3 % (39.0-53.0) Mean Corpuscular Volume 86 fL (79-100) Mean Corpuscular Hemoglobin 29 pg (25-35) Mean Corpuscular Hemoglobin Concent 34 g/dL (31-37) Red Cell Distribution Width 18.4 % (11.5-14.5) Platelet Count 359 x10^3/uL (140-400) Neutrophils (%) (Auto) 58 % (31-73) Lymphocytes (%) (Auto) 28 % (24-48) Monocytes (%) (Auto) 12 % (0-9) Eosinophils (%) (Auto) 1 % (0-3) Basophils (%) (Auto) 1 % (0-3) Neutrophils # (Auto) 6.4 x10^3uL (1.8-7.7) Lymphocytes # (Auto) 3.1 x10^3/uL (1.0-4.8) Monocytes # (Auto) 1.3 x10^3/uL (0.0-1.1) Eosinophils # (Auto) 0.1 x10^3/uL (0.0-0.7) Basophils # (Auto) 0.1 x10^3/uL (0.0-0.2) Sodium Level 134 mmol/L (136-145) Potassium Level 4.7 mmol/L (3.5-5.1) Chloride Level 92 mmol/L (98-107) Carbon Dioxide Level 21 mmol/L (21-32) Anion Gap 21 (6-14) Blood Urea Nitrogen 117 mg/dL (8-26) Creatinine 10.6 mg/dL (0.7-1.3) Estimated GFR (Cockcroft-Gault) 5.1 BUN/Creatinine Ratio 11 (6-20) Glucose Level 107 mg/dL (70-99) Calcium Level 7.1 mg/dL (8.5-10.1) Total Bilirubin 0.9 mg/dL (0.2-1.0) Aspartate Amino Transf (AST/SGOT) 39 U/L (15-37) Alanine Aminotransferase (ALT/SGPT) 36 U/L (16-63) Alkaline Phosphatase 113 U/L (46-116) Total Protein 6.9 g/dL (6.4-8.2) Albumin 2.1 g/dL (3.4-5.0) Albumin/Globulin Ratio 0.4 (1.0-1.7) Microbiology 09/08/18 Blood Culture - Preliminary, Resulted NO GROWTH AFTER 2 DAYS 08/29/18 CSF Gram Stain - Final, Complete 08/27/18 Stool Culture - Final, Complete 08/27/18 Stool Culture Result 1 (LOTUS) - Final, Complete 08/27/18 Campylobacter Antigen Assay - Final, Complete 08/27/18 Campylobactor Result 1 - Final, Complete 08/27/18 Shiga Toxin Test - Final, Complete 09/05/18 - Final, Complete 09/05/18 - Final, Complete 09/05/18 - Final, Complete 09/05/18 Gram Stain Evaluation - Final, Complete 09/05/18 Sputum Culture - Final, Complete 09/05/18 Sputum Result 1 - Final, Complete 09/04/18 Urine Culture - Final, Complete 09/04/18 Urine Culture Result 1 (LOTUS) - Final, Complete Medications Current Medications Sodium Chloride 1,000 ml @ 1,000 mls/hr 1X ONCE IV Last administered on 08/25/18at 20:38; Start 08/25/18 at 19:15; Stop 08/25/18 at 20:14; Status DC Ibuprofen (Motrin) 600 mg 1X ONCE PO Last administered on 08/25/18at 20:38; Start 08/25/18 at 19:45; Stop 08/25/18 at 19:49; Status DC Sodium Chloride 1,000 ml @ 1,000 mls/hr 1X ONCE IV Last administered on 08/25/18at 20:30; Start 08/25/18 at 20:30; Stop 08/25/18 at 21:29; Status DC Ceftriaxone Sodium (Rocephin) 1 gm 1X ONCE IVP Last administered on 08/25/18at 20:36; Start 08/25/18 at 20:30; Stop 08/25/18 at 20:31; Status DC Vancomycin HCl 2 gm/Sodium Chloride 500 ml @ 250 mls/hr 1X ONCE IV Last administered on 08/25/18at 23:10; Start 08/25/18 at 21:30; Stop 08/25/18 at 23:29; Status DC Sodium Chloride 1,000 ml @ 1,000 mls/hr 1X ONCE IV Last administered on 08/25at 23:51; Start 08/25/18 at 21:00; Stop 08/25/18 at 21:59; Status DC Piperacillin Sod/ Tazobactam Sod 4.5 gm/Sodium Chloride 100 ml @ 200 mls/hr 1X ONCE IV ; Start 08/25/18 at 21:15; Stop 08/25/18 at 21:44; Status DC Aztreonam (Azactam) 2 gm 1X ONCE IVP Last administered on 08/25/18at 21:15; Start 08/25/18 at 21:15; Stop 08/25/18 at 21:16; Status DC Magnesium Sulfate 50 ml @ 25 mls/hr 1X ONCE IV Last administered on 08/25/18at 23:51; Start 08/25/18 at 21:15; Stop 08/25/18 at 23:14; Status DC Ondansetron HCl (Zofran) 4 mg PRN Q8HRS PRN IV NAUSEA/VOMITING; Start 08/25/18 at 21:15; Stop 08/26/18 at 21:14; Status DC Acetaminophen (Tylenol) 650 mg PRN Q4HRS PRN PO FEVER; Start 08/25/18 at 21:15; Stop 08/26/18 at 21:14; Status DC Sodium Chloride 1,000 ml @ 125 mls/hr 1X ONCE IV Last administered on 08/25/18at 23:09; Start 08/25/18 at 21:15; Stop 08/26/18 at 05:14; Status DC Daptomycin 610 mg/ Sodium Chloride 50 ml @ 100 mls/hr QODAY IV Last administered on 08/27/18at 08:59; Start 08/27/18 at 09:00; Stop 08/28/18 at 15:40; Status DC Meropenem 500 mg/ Sodium Chloride 50 ml @ 100 mls/hr 1X ONCE IV Last administered on 08/25/18at 22:12; Start 08/25/18 at 22:00; Stop 08/25/18 at 22:29; Status DC Doxycycline Hyclate 100 mg/ Dextrose 100 ml @ 50 mls/hr Q12HR IV Last administered on 09/03/18at 22:11; Start 08/26/18 at 09:00; Stop 09/04/18 at 08:11; Status DC Meropenem 500 mg/ Sodium Chloride 50 ml @ 100 mls/hr DAILY IV Last administered on 08/29/18at 10:13; Start 08/26/18 at 09:00; Stop 08/30/18 at 08:17; Status DC Sodium Chloride (Normal Saline Flush) 10 ml QSHIFT PRN IV AFTER MEDS AND BLOOD DRAWS; Start 08/26/18 at 09:15 Norepinephrine Bitartrate 250 ml @ 0 mls/hr CONT PRN IV PER PROTOCOL Last administered on 08/27/18at 10:21; Start 08/26/18 at 09:15; Stop 08/30/18 at 17:20; Status DC Famotidine (Pepcid) 20 mg DAILY PO Last administered on 08/27/18at 08:14; Start 08/26/18 at 12:00; Stop 08/27/18 at 14:36; Status DC Sodium Chloride 1,000 ml @ 1,000 mls/hr Q1H PRN IV hypotension; Start 08/26/18 at 11:51; Stop 08/26/18 at 17:50; Status DC Sodium Chloride (Normal Saline Flush) 10 ml 1X PRN PRN IV AP catheter pack; Start 08/26/18 at 12:00; Stop 08/27/18 at 11:59; Status DC Sodium Chloride (Normal Saline Flush) 10 ml 1X PRN PRN IV DIRECTOR AMBULATORY catheter pack; Start 08/26/18 at 12:00; Stop 08/27/18 at 11:59; Status DC Sodium Chloride 1,000 ml @ 400 mls/hr Q2H30M PRN IV PATENCY; Start 08/26/18 at 11:51; Stop 08/26/18 at 23:50; Status DC Info (PHARMACY MONITORING -- do not chart) 1 each PRN DAILY PRN MC SEE COMMENTS; Start 08/26/18 at 12:00; Status UNV Info (PHARMACY MONITORING -- do not chart) 1 each PRN DAILY PRN MC SEE COMMENTS; Start 08/26/18 at 12:00; Stop 09/01/18 at 10:59; Status DC Lidocaine/Sodium Bicarbonate (Buffered Lidocaine 1%) 4 ml 1X ONCE INJ Last administered on 08/26/18at 12:45; Start 08/26/18 at 12:45; Stop 08/26/18 at 12:48; Status DC Heparin Sodium (Porcine) (Heparin Sodium) 2,500 unit 1X ONCE INT CAT Last administered on 08/26/18at 12:45; Start 08/26/18 at 12:45; Stop 08/26/18 at 12 :48; Status DC Lidocaine/Sodium Bicarbonate (Buffered Lidocaine 1%) 3 ml STK-MED ONCE .ROUTE ; Start 08/26/18 at 12:49; Stop 08/26/18 at 12:50; Status DC Heparin Sodium (Porcine) (Heparin Sodium) 10,000 unit STK-MED ONCE .ROUTE ; Start 08/26/18 at 12:49; Stop 08/26/18 at 12:50; Status DC Lactobacillus Rhamnosus (Culturelle) 1 cap BID PO Last administered on 09/08/18at 09:34; Start 08/26/18 at 21:00; Stop 09/08/18 at 10:55; Status DC Acetaminophen (Tylenol) 325 mg STK-MED ONCE PO ; Start 08/27/18 at 00:43; Stop 08/27/18 at 00:44; Status DC Sodium Chloride 1,000 ml @ 1,000 mls/hr 1X ONCE IV Last administered on 08/27/18at 11:05; Start 08/27/18 at 10:30; Stop 08/27/18 at 11:29; Status DC Sodium Chloride 1,000 ml @ 1,000 mls/hr Q1H PRN IV hypotension; Start 08/27/18 at 11:28; Stop 08/27/18 at 17:27; Status DC Albumin Human 200 ml @ 200 mls/hr 1X PRN PRN IV Hypotension; Start 08/27/18 at 11:30; Stop 08/27/18 at 17:29; Status DC Sodium Chloride (Normal Saline Flush) 10 ml 1X PRN PRN IV AP catheter pack; Start 08/27/18 at 11:30; Stop 08/28/18 at 11:29; Status DC Sodium Chloride (Normal Saline Flush) 10 ml 1X PRN PRN IV DIRECTOR AMBULATORY catheter pack; Start 08/27/18 at 11:30; Stop 08/28/18 at 11:29; Status DC Sodium Chloride 1,000 ml @ 400 mls/hr Q2H30M PRN IV PATENCY; Start 08/27/18 at 11:28; Stop 08/27/18 at 23:27; Status DC Info (PHARMACY MONITORING -- do not chart) 1 each PRN DAILY PRN MC SEE COMMENTS; Start 08/27/18 at 11:30; Status UNV Info (PHARMACY MONITORING -- do not chart) 1 each PRN DAILY PRN MC SEE C OMMENTS; Start 08/27/18 at 11:30; Status UNV Famotidine (Pepcid) 20 mg Q48H PO ; Start 08/29/18 at 09:00; Stop 08/29/18 at 11:29; Status DC Acetaminophen (Tylenol) 650 mg PRN Q6HRS PRN PO mild pain/fever; Start 08/27/18 at 21:15 Acetaminophen (Tylenol Supp) 650 mg PRN Q6HRS PRN [place] MILD PAIN / TEMP Last administered on 09/02/18at 01:18; Start 08/27/18 at 21:15 Fentanyl Citrate (Fentanyl 2ml Vial) 25 mcg 1X ONCE IV Last administered on 08/28/18at 08:54; Start 08/28/18 at 08:45; Stop 08/28/18 at 08:47; Status DC Lidocaine/Sodium Bicarbonate (Buffered Lidocaine 1%) 3 ml STK-MED ONCE .ROUTE ; Start 08/28/18 at 09:55; Stop 08/28/18 at 09:56; Status DC Lidocaine HCl (Glydo (Lidocaine) Jelly) 1 meng 1X STAT MM Last administered on 08/28/18at 10:16; Start 08/28/18 at 10:16; Stop 08/28/18 at 10:19; Status DC Benzocaine (Hurricaine One) 1 spray 1X STAT MM Last administered on 08/28/18at 10:16; Start 08/28/18 at 10:16; Stop 08/28/18 at 10:19; Status DC Lidocaine/Sodium Bicarbonate (Buffered Lidocaine 1%) 3 ml 1X ONCE INJ ; Start 08/28/18 at 10:30; Stop 08/28/18 at 10:31; Status DC Haloperidol Lactate (Haldol Inj) 5 mg PRN Q6HRS PRN IVP AGITATION Last administered on 09/06/18at 05:53; Start 08/28/18 at 12:00 Fentanyl Citrate (Fentanyl 2ml Vial) 50 mcg PRN Q4HRS PRN IV PAIN Last administered on 08/28/18at 21:44; Start 08/28/18 at 15:30; Stop 09/05/18 at 02:11; Status DC Sodium Chloride 1,000 ml @ 1,000 mls/hr Q1H PRN IV hypotension; Start 08/28/18 at 14:00; Stop 08/28/18 at 19:59; Status DC Albumin Human 200 ml @ 200 mls/hr 1X PRN PRN IV Hypotension Last administered on 08/28/18at 14:50; Start 08/28/18 at 14:00; Stop 09/03/18 at 18:17; Status DC Sodium Chloride 1,000 ml @ 400 mls/hr Q2H30M PRN IV PATENCY; Start 08/28/18 at 14:00; Stop 08/29/18 at 01:59; Status DC Info (PHARMACY MONITORING -- do not chart) 1 each PRN DAILY PRN MC SEE COMMENTS; Start 08/28/18 at 15:30; Status UNV Info (PHARMACY MONITORING -- do not chart) 1 each PRN DAILY PRN MC SEE COMMENTS; Start 08/28/18 at 15:30; Status UNV Daptomycin 610 mg/ Sodium Chloride 50 ml @ 100 mls/hr Q48H IV ; Start 08/30/18 at 16:00; Stop 08/30/18 at 16:00; Status DC Famotidine (Pepcid Vial) 20 mg QHS IVP Last administered on 08/31/18at 20:59; Start 08/29/18 at 21:00; Stop 09/01/18 at 11:00; Status DC Acyclovir Sodium 340 mg/Dextrose 106.8 ml @ 106.8 mls/ hr Q12HR IV Last administered on 09/01/18at 11:05; Start 08/30/18 at 09:00; Stop 09/01/18 at 13:37; Status DC Sodium Chloride 1,000 ml @ 1,000 mls/hr Q1H PRN IV hypotension; Start 08/30/18 at 11:02; Stop 08/30/18 at 17:01; Status DC Sodium Chloride 1,000 ml @ 400 mls/hr Q2H30M PRN IV PATENCY; Start 08/30/18 at 11:02; Stop 08/30/18 at 23:01; Status DC Info (PHARMACY MONITORING -- do not chart) 1 each PRN DAILY PRN MC SEE COMMENTS; Start 08/30/18 at 11:15; Status UNV Info (PHARMACY MONITORING -- do not chart) 1 each PRN DAILY PRN MC SEE COMMENTS; Start 08/30/18 at 11:15; Status UNV Info (Tpn Per Pharmacy) 1 each PRN DAILY PRN MC SEE COMMENTS Last administered on 09/03/18at 10:53; Start 08/30/18 at 12:45; Stop 09/04/18 at 12:50; Status DC Sodium Chloride 90 meq/Potassium Chloride 50 meq/ Potassium Phosphate 3 mmol/ Magnesium Sulfate 10 meq/Calcium Gluconate 10 meq/ Multivitamins 10 ml/Chromium/ Copper/Manganese/ Seleni/Zn 1 ml/ Total Parenteral Nutrition/Amino Acids/Dextrose/ Fat Emulsion Intravenous 1,512 ml @ 63 mls/hr TPN CONT IV Last administered on 08/30/18at 21:40; Start 08/30/18 at 22:00; Stop 08/31/18 at 21:59; Status DC Ondansetron HCl (Zofran) 4 mg PRN Q6HRS PRN IV NAUSEA/VOMITING; Start 08/31/18 at 08:00 Haloperidol (Haldol) 2 mg PRN QID PRN PO AGITATION; Start 08/31/18 at 08:00; Stop 08/31/18 at 12:43; Status DC Haloperidol Lactate (HALDOL 2mg ORAL CONC) 2 mg PRN QID PRN PO AGITATION; Start 08/31/18 at 12:43 Sodium Chloride 90 meq/Potassium Chloride 50 meq/ Potassium Phosphate 5 mmol/ Magnesium Sulfate 3 meq/Calcium Gluconate 10 meq/ Multivitamins 10 ml/Chromium/ Copper/Manganese/ Seleni/Zn 1 ml/ Total Parenteral Nutrition/Amino Acids/Dextrose 1,512 ml @ 63 mls/hr TPN CONT IV Last administered on 08/31/18at 20:59; Start 08/31/18 at 22:00; Stop 09/01/18 at 21:59; Status DC Propofol 100 ml @ As Directed STK-MED ONCE IV ; Start 08/31/18 at 22:45; Stop 08/31/18 at 22:46; Status DC Succinylcholine Chloride (Anectine) 200 mg STK-MED ONCE .ROUTE ; Start 08/31/18 at 22:46; Stop 08/31/18 at 22:47; Status DC Atropine Sulfate (ATROPINE 1mg SYRINGE) 1 mg STK-MED ONCE .ROUTE ; Start 08/31/18 at 22:58; Stop 08/31/18 at 22:59; Status DC Fentanyl Citrate 30 ml @ 0 mls/hr CONT PRN IV SEE PROTOCOL Last administered on 09/06/18at 10:39; Start 09/01/18 at 00:00; Stop 09/06/18 at 10:59; Status DC Propofol 100 ml @ 0 mls/hr CONT PRN IV SEE PROTOCOL Last administered on 09/06/18at 08:14; Start 09/01/18 at 00:00; Stop 09/06/18 at 10:59; Status DC Chlorhexidine Gluconate (Peridex) 15 ml BID MM Last administered on 09/07/18at 21:21; Start 09/01/18 at 09:00; Stop 09/08/18 at 08:04; Status DC Midazolam HCl 100 ml @ 0 mls/hr CONT PRN IV SEE PROTOCOL; Start 09/01/18 at 00:00; Stop 09/08/18 at 11:30; Status DC Albuterol/ Ipratropium (Duoneb) 3 ml RTQID NEB Last administered on 09/10/18at 08:01; Start 09/01/18 at 08:00 Albuterol/ Ipratropium (Duoneb) 3 ml 1X ONCE NEB Last administered on 09/01/18at 01:10; Start 09/01/18 at 01:00; Stop 09/01/18 at 01:01; Status DC Succinylcholine Chloride (Anectine) 200 mg 1X ONCE IV Last administered on 08/31/18at 23:04; Start 09/01/18 at 01:15; Stop 09/01/18 at 01:16; Status DC Sodium Chloride 1,000 ml @ 1,000 mls/hr Q1H PRN IV hypotension; Start 09/01/18 at 07:00; Stop 09/01/18 at 12:59; Status DC Sodium Chloride (Normal Saline Flush) 10 ml 1X PRN PRN IV AP catheter pack; Start 09/01/18 at 07:00; Stop 09/02/18 at 06:59; Status DC Sodium Chloride (Normal Saline Flush) 10 ml 1X PRN PRN IV DIRECTOR AMBULATORY catheter pack; Start 09/01/18 at 07:00; Stop 09/02/18 at 06:59; Status DC Sodium Chloride 1,000 ml @ 400 mls/hr Q2H30M PRN IV PATENCY; Start 09/01/18 at 07:00; Stop 09/01/18 at 18:59; Status DC Info (PHARMACY MONITORING -- do not chart) 1 each PRN DAILY PRN MC SEE COMMENTS; Start 09/01/18 at 11:00; Status Cancel Info (PHARMACY MONITORING -- do not chart) 1 each PRN DAILY PRN MC SEE COMMENTS; Start 09/01/18 at 11:00; Status Cancel Famotidine (Pepcid Vial) 20 mg Q48H IVP Last administered on 09/09/18at 21:22; Start 09/03/18 at 21:00 Sodium Chloride 90 meq/Potassium Chloride 50 meq/ Potassium Phosphate 10 mmol/ Calcium Gluconate 10 meq/ Multivitamins 10 ml/Chromium/ Copper/Manganese/ Seleni/Zn 1 ml/ Total Parenteral Nutrition/Amino Acids/Dextrose 1,512 ml @ 63 mls/hr TPN CONT IV Last administered on 09/01/18at 22:11; Start 09/01/18 at 22:00; Stop 09/02/18 at 21:59; Status DC Piperacillin Sod/ Tazobactam Sod 2.25 gm/Sodium Chloride 50 ml @ 100 mls/hr Q6HRS IV Last administered on 09/10/18at 05:31; Start 09/01/18 at 14:00 Sodium Chloride 110 meq/Potassium Chloride 50 meq/ Potassium Phosphate 10 mmol/ Calcium Gluconate 10 meq/ Multivitamins 10 ml/Chromium/ Copper/Manganese/ Seleni/Zn 1 ml/ Magnesium Sulfate 3 meq/Total Parenteral Nutrition/Amino Acids/Dextrose 1,512 ml @ 63 mls/hr TPN CONT IV Last administered on 09/02/18at 22:13; Start 09/02/18 at 22:00; Stop 09/03/18 at 21:59; Status DC Darbepoetin Phil (Aranesp) 100 mcg [id number] SQ Last administered on 09/03/18at 22:11; Start 09/03/18 at 21:00 Sodium Chloride 130 meq/Potassium Acetate 20 meq/ Calcium Gluconate 10 meq/ Multivitamins 10 ml/Chromium/ Copper/Manganese/ Seleni/Zn 1 ml/ Magnesium Sulfate 3 meq/Total Parenteral Nutrition/Amino Acids/Dextrose 1,512 ml @ 63 mls/hr TPN CONT IV Last administered on 09/03/18at 22:12; Start 09/03/18 at 22:00; Stop 09/04/18 at 21:59; Status DC Albumin Human 200 ml @ 200 mls/hr 1X PRN PRN IV Hypotension; Start 09/03/18 at 10:00; Stop 09/03/18 at 21:00; Status DC Sodium Chloride (Normal Saline Flush) 10 ml 1X PRN PRN IV AP catheter pack; Start 09/03/18 at 10:00; Stop 09/03/18 at 21:00; Status DC Sodium Chloride (Normal Saline Flush) 10 ml 1X PRN PRN IV DIRECTOR AMBULATORY catheter pack; Start 09/03/18 at 10:00; Stop 09/03/18 at 21:00; Status DC Sodium Chloride 1,000 ml @ 400 mls/hr Q2H30M PRN IV PATENCY; Start 09/03/18 at 10:00; Stop 09/03/18 at 21:59; Status DC Info (PHARMACY MONITORING -- do not chart) 1 each PRN DAILY PRN MC SEE COMMENTS; Start 09/03/18 at 18:15; Status UNV Atropine Sulfate (ATROPINE 0.5mg SYRINGE) 0.5 mg STK-MED ONCE .ROUTE ; Start at 08:06; Stop 09/04/18 at 08:07; Status DC Epinephrine HCl (EPINEPHrine SYRINGE) 3 mg STK-MED ONCE .ROUTE ; Start 08/31/18 at 08:06; Stop 09/04/18 at 08:07; Status DC Sodium Bicarbonate (Sodium Bicarb Adult 8.4% Syr) 100 meq STK-MED ONCE .ROUTE ; Start 08/31/18 at 08:06; Stop 09/04/18 at 08:07; Status DC Levofloxacin/ Dextrose 150 ml @ 100 mls/hr QODAY IV Last administered on 09/06/18at 10:28; Start 09/04/18 at 09:00; Stop 09/07/18 at 07:52; Status DC Sodium Chloride 1,000 ml @ 1,000 mls/hr Q1H PRN IV hypotension; Start 09/04/18 at 08:23; Stop 09/04/18 at 14:24; Status DC Albumin Human 200 ml @ 200 mls/hr 1X PRN PRN IV Hypotension; Start 09/04/18 at 08:30; Stop 09/04/18 at 14:29; Status DC Sodium Chloride 1,000 ml @ 400 mls/hr Q2H30M PRN IV PATENCY; Start 09/04/18 at 08:23; Stop 09/04/18 at 20:22; Status DC Info (PHARMACY MONITORING -- do not chart) 1 each PRN DAILY PRN MC SEE COMMENTS; Start 09/04/18 at 08:30; Stop 09/05/18 at 08:55; Status DC Info (PHARMACY MONITORING -- do not chart) 1 each PRN DAILY PRN MC SEE COMMENTS; Start 09/04/18 at 08:30; Status UNV Linezolid/Dextrose 300 ml @ 300 mls/hr Q12HR IV Last administered on 09/09/18at 21:21; Start 09/05/18 at 09:30; Stop 09/10/18 at 07:34; Status DC Sodium Chloride 1,000 ml @ 1,000 mls/hr Q1H PRN IV hypotension; Start 09/05/18 at 08:51; Stop 09/05/18 at 14:50; Status DC Sodium Chloride (Normal Saline Flush) 10 ml 1X PRN PRN IV AP catheter pack; Start 09/05/18 at 09:00; Stop 09/06/18 at 08:59; Status DC Sodium Chloride (Normal Saline Flush) 10 ml 1X PRN PRN IV DIRECTOR AMBULATORY catheter pack; Start 09/05/18 at 09:00; Stop 09/06/18 at 08:59; Status DC Sodium Chloride 1,000 ml @ 400 mls/hr Q2H30M PRN IV PATENCY; Start 09/05/18 at 08:51; Stop 09/05/18 at 20:50; Status DC Info (PHARMACY MONITORING -- do not chart) 1 each PRN DAILY PRN MC SEE COMMENTS; Start 09/05/18 at 09:00; Stop 09/05/18 at 09:00; Status DC Info (PHARMACY MONITORING -- do not chart) 1 each PRN DAILY PRN MC SEE COMMENTS; Start 09/05/18 at 09:00; Status Cancel Fentanyl Citrate (Fentanyl 2ml Vial) 25 mcg PRN Q2HR PRN IV MODERATE PAIN Last administered on 09/08/18at 04:34; Start 09/06/18 at 11:00 Dexmedetomidine HCl 200 mcg/ Sodium Chloride 50 ml @ 0 mls/hr CONT PRN IV PER PROTOCOL; Start 09/06/18 at 11:00; Stop 09/08/18 at 08:03; Status DC Sodium Chloride 500 ml @ 500 mls/hr 1X PRN PRN IV SEE COMMENTS; Start 09/06/18 at 11:00 Atropine Sulfate (ATROPINE 0.5mg SYRINGE) 0.5 mg PRN Q5MIN PRN IV SEE COMMENTS; Start 09/06/18 at 11:00 Sodium Chloride 1,000 ml @ 1,000 mls/hr Q1H PRN IV hypotension; Start 09/06/18 at 11:52; Stop 09/06/18 at 17:51; Status DC Diphenhydramine HCl (Benadryl) 25 mg 1X PRN PRN IV ITCHING; Start 09/06/18 at 12:00; Stop 09/07/18 at 11:59; Status DC Diphenhydramine HCl (Benadryl) 25 mg 1X PRN PRN IV ITCHING; Start 09/06/18 at 12:00; Stop 09/07/18 at 11:59; Status DC Sodium Chloride 1,000 ml @ 400 mls/hr Q2H30M PRN IV PATENCY; Start 09/06/18 at 11:52; Stop 09/06/18 at 23:51; Status DC Info (PHARMACY MONITORING -- do not chart) 1 each PRN DAILY PRN MC SEE CO MMENTS; Start 09/06/18 at 12:00; Stop 09/06/18 at 12:00; Status DC Micafungin Sodium 100 mg/Dextrose 100 ml @ 100 mls/hr Q24H IV Last administered on 09/10/18at 08:09; Start 09/07/18 at 08:30 Sodium Chloride 1,000 ml @ 1,000 mls/hr Q1H PRN IV hypotension; Start 09/07/18 at 16:29; Stop 09/07/18 at 22:28; Status DC Diphenhydramine HCl (Benadryl) 25 mg 1X PRN PRN IV ITCHING; Start 09/07/18 at 16:30; Stop 09/08/18 at 16:29; Status DC Diphenhydramine HCl (Benadryl) 25 mg 1X PRN PRN IV ITCHING; Start 09/07/18 at 16:30; Stop 09/08/18 at 16:29; Status DC Sodium Chloride 1,000 ml @ 400 mls/hr Q2H30M PRN IV PATENCY; Start 09/07/18 at 16:29; Stop 09/08/18 at 04:28; Status DC Info (PHARMACY MONITORING -- do not chart) 1 each PRN DAILY PRN MC SEE COMMENTS; Start 09/07/18 at 16:30 Lidocaine/Sodium Bicarbonate (Buffered Lidocaine 1%) 3 ml 1X ONCE INJ Last administered on 09/10/18at 09:51; Start 09/10/18 at 08:45; Stop 09/10/18 at 08:46; Status DC Heparin Sodium (Porcine) (Heparin Sodium) 2,400 unit 1X ONCE INT CAT Last administered on 09/10/18at 09:51; Start 09/10/18 at 08:45; Stop 09/10/18 at 08:46; Status DC Active Scripts Active Potassium Chloride 20 Meq Tablet.er 20 Meq PO DAILY Orphenadrine Citrate 100 Mg Tablet.er 100 Mg PO Q12HR Anaprox Ds (Naproxen Sodium) 550 Mg Tablet 550 Mg PO Q12HR Reported Prednisone 20 Mg Tablet 1 Tab PO DAILY Hydrochlorothiazide Tablet (Hydrochlorothiazide) 12.5 Mg Tablet 12.5 Mg PO DAILY Shilpi Allergy (Fexofenadine Hcl) 180 Mg Tablet 1 Tab PO DAILY Vitals/I & O Vital Sign - Last 24 Hours 09/09/18 09/09/18 09/09/18 09/09/18 10:00 11:00 11:51 12:00 Temp 98.2 98.2 Pulse 92 94 96 Resp 36 28 34 B/P (MAP) 136/71 (92) 128/75 (92) 135/69 (91) Pulse Ox 99 99 96 99 O2 Delivery Nasal Cannula Nasal Cannula Nasal Cannula Nasal Cannula O2 Flow Rate 3.0 3.0 3.0 3.0 09/09/18 09/09/18 09/09/18 09/09/18 12:00 13:00 14:00 15:00 Pulse 88 88 86 Resp 16 28 32 B/P (MAP) 131/75 (93) 134/72 (92) 133/73 (93) Pulse Ox 99 99 99 O2 Delivery Nasal Cannula Nasal Cannula Nasal Cannula Nasal Cannula O2 Flow Rate 4.0 3.0 3.0 3.0 09/09/18 09/09/18 09/09/18 09/09/18 16:00 16:00 16:00 17:00 Temp 98.7 98.7 Pulse 86 86 Resp 36 32 B/P (MAP) 142/79 (100) 143/75 (97) Pulse Ox 99 95 99 O2 Delivery Nasal Cannula Nasal Cannula Nasal Cannula Nasal Cannula O2 Flow Rate 3.0 4.0 2.0 3.0 09/09/18 09/09/18 09/09/18 09/09/18 18:00 19:00 20:00 20:00 Temp 98.5 98.5 Pulse 86 86 84 Resp 32 39 38 B/P (MAP) 140/78 (98) 133/77 (95) 134/73 (93) Pulse Ox 99 96 94 O2 Delivery Nasal Cannula Nasal Cannula Nasal Cannula Nasal Cannula O2 Flow Rate 3.0 3.0 3.0 3.0 09/09/18 09/09/18 09/09/18 09/10/18 20:03 21:00 22:00 00:00 Pulse 82 85 Resp 32 34 B/P (MAP) 137/74 (95) 142/79 (100) Pulse Ox 97 95 96 O2 Delivery Nasal Cannula Nasal Cannula Nasal Cannula Nasal Cannula O2 Flow Rate 2.0 3.0 3.0 3.0 09/10/18 09/10/18 09/10/18 09/10/18 00:02 01:00 02:00 03:00 Temp 98.5 98.5 Pulse 86 84 85 85 Resp 34 37 43 38 B/P (MAP) 147/74 (98) 139/72 (94) 149/72 (97) 144/75 (98) Pulse Ox 95 95 95 94 O2 Delivery Nasal Cannula Nasal Cannula Nasal Cannula Nasal Cannula O2 Flow Rate 3.0 3.0 3.0 3.0 09/10/18 09/10/18 09/10/18 09/10/18 03:47 04:20 05:00 06:08 Temp 99.4 99.4 Pulse 80 86 83 Resp 37 34 42 B/P (MAP) 153/81 (105) 153/81 (105) 150/76 (100) Pulse Ox 96 94 97 O2 Delivery Nasal Cannula Nasal Cannula Nasal Cannula Nasal Cannula O2 Flow Rate 3.0 3.0 3.0 3.0 09/10/18 09/10/18 09/10/18 09/10/18 07:00 08:00 08:00 08:02 Temp 97.7 97.7 Pulse 85 82 Resp 38 40 B/P (MAP) 151/77 (101) 150/86 (107) Pulse Ox 97 97 97 O2 Delivery Nasal Cannula Nasal Cannula Nasal Cannula Nasal Cannula O2 Flow Rate 3.0 3.0 3.0 3.0 09/10/18 09:00 Pulse 80 Resp 38 B/P (MAP) 151/85 (107) Pulse Ox 96 O2 Delivery Nasal Cannula O2 Flow Rate 3.0 Intake and Output 09/09/18 09/09/18 09/10/18 15:00 23:00 07:00 Intake Total 300 ml 1355 ml 353 ml Output Total 35 ml 15 ml 100 ml Balance 265 ml 1340 ml 253 ml MARBIN GARCIA MD Sep 10, 2018 09:58
--- NOTE | 2018-09-10 10:12 | PDOC ---
SUBJECTIVE ROS Stable , temp Dialysis cath placed this am OBJECTIVE Vital Signs Vital Signs Date Time Temp Pulse Resp B/P (MAP) Pulse Ox O2 Delivery O2 Flow Rate FiO2 09/10/18 09:00 80 38 151/85 (107) 96 Nasal Cannula 3.0 09/10/18 08:00 97.7 97.7 I & 0 Intake and Output 09/10/18 06:59 Intake Total 2008 ml Output Total 140 ml Balance 1868 ml Intake Oral 0 ml Tube Feeding 1558 ml Other 450 ml Output Urine Total 140 ml # Bowel Movements 3 PHYSICAL EXAM Physical Exam GENERAL: Awake, On o2, HEENT: On O2 by NC NECK: Supple. LUNGS: Clear anteriorly HEART: S1 and S2. regular ABDOMEN: soft, Rectal tube in place : Waters in place EXTREMITIES: no edema SKIN: Warm NEUROLOGIC: Awake, DIAGNOSIS/ASSESSMENT Assessment & Plan RADHA/ATN- Requiring HD No renal recovery Dialyis cath was removed on Monday, replaced again this am Seen on HD, tolerating well, continue as ordered,Scot Ching Fungemia from 09/04. ID following Diarrhea, Tick-born illness suspected -w/u negative for ehrlichia -RMSF neg, Encephalopathy waxing and waning etiology unclear MRI neg Anemia Hemochromatosis, followed by [facility] COMMENT/RELEVANT DATA Meds Current Medications Medications (Trade) Dose Ordered Sig/Noemi Start Time Stop Time Status Last Admin Dose Admin Acetaminophen (Tylenol Supp) 650 mg PRN Q6HRS PRN 08/27/18 21:15 09/02/18 01:18 650 MG Acetaminophen (Tylenol) 650 mg PRN Q6HRS PRN 08/27/18 21:15 Acyclovir Sodium 340 mg/Dextrose 106.8 ml @ 106.8 mls/ hr Q12HR 08/30/18 09:00 09/01/18 13:37 DC 09/01/18 11:05 106.8 MLS/HR Albumin Human 200 ml @ 200 mls/hr 1X PRN PRN 09/04/18 08:30 09/04/18 14:29 DC Albuterol/ Ipratropium (Duoneb) 3 ml 1X ONCE 09/01/18 01:00 09/01/18 01:01 DC 09/01/18 01:10 3 ML Atropine Sulfate (ATROPINE 0.5mg SYRINGE) 0.5 mg PRN Q5MIN PRN 09/06/18 11:00 Atropine Sulfate (ATROPINE 1mg SYRINGE) 1 mg STK-MED ONCE 08/31/18 22:58 08/31/18 22:59 DC Aztreonam (Azactam) 2 gm 1X ONCE 08/25/18 21:15 08/25/18 21:16 DC 08/25/18 21:15 2 GM Benzocaine (Hurricaine One) 1 spray 1X STAT 08/28/18 10:16 08/28/18 10:19 DC 08/28/18 10:16 1 SPRAY Ceftriaxone Sodium (Rocephin) 1 gm 1X ONCE 08/25/18 20:30 08/25/18 20:31 DC 08/25/18 20:36 1 GM Chlorhexidine Gluconate (Peridex) 15 ml BID 09/01/18 09:00 09/08/18 08:04 DC 09/07/18 21:21 15 ML Daptomycin 610 mg/ Sodium Chloride 50 ml @ 100 mls/hr Q48H 08/30/18 16:00 08/30/18 16:00 DC Darbepoetin Phil (Aranesp) 100 mcg WEEKLYHS 09/03/18 21:00 09/03/18 22:11 100 MCG Dexmedetomidine HCl 200 mcg/ Sodium Chloride 50 ml @ 0 mls/hr CONT PRN 09/06/18 11:00 09/08/18 08:03 DC Diphenhydramine HCl (Benadryl) 25 mg 1X PRN PRN 09/07/18 16:30 09/08/18 16:29 DC Doxycycline Hyclate 100 mg/ Dextrose 100 ml @ 50 mls/hr Q12HR 08/26/18 09:00 09/04/18 08:11 DC 09/03/18 22:11 50 MLS/HR Epinephrine HCl (EPINEPHrine SYRINGE) 3 mg STK-MED ONCE 08/31/18 08:06 09/04/18 08:07 DC Famotidine (Pepcid Vial) 20 mg Q48H 09/03/18 21:00 09/09/18 21:22 20 MG Famotidine (Pepcid) 20 mg Q48H 08/29/18 09:00 08/29/18 11:29 DC Fentanyl Citrate (Fentanyl 2ml Vial) 25 mcg PRN Q2HR PRN 09/06/18 11:00 09/08/18 04:34 25 MCG Haloperidol (Haldol) 2 mg PRN QID PRN 08/31/18 08:00 08/31/18 12:43 DC Haloperidol Lactate (HALDOL 2mg ORAL CONC) 2 mg PRN QID PRN 08/31/18 12:43 Haloperidol Lactate (Haldol Inj) 5 mg PRN Q6HRS PRN 08/28/18 12:00 09/06/18 05:53 5 MG Heparin Sodium (Porcine) (Heparin Sodium) 2,400 unit 1X ONCE 09/10/18 08:45 09/10/18 08:46 DC 09/10/18 09:51 2,400 UNIT Ibuprofen (Motrin) 600 mg 1X ONCE 08/25/18 19:45 08/25/18 19:49 DC 08/25/18 20:38 600 MG Info (PHARMACY MONITORING -- do not chart) 1 each PRN DAILY PRN 09/07/18 16:30 Info (Tpn Per Pharmacy) 1 each PRN DAILY PRN 08/30/18 12:45 09/04/18 12:50 DC 09/03/18 10:53 1 EACH Lactobacillus Rhamnosus (Culturelle) 1 cap BID 08/26/18 21:00 09/08/18 10:55 DC 09/08/18 09:34 1 CAP Levofloxacin/ Dextrose 150 ml @ 100 mls/hr QODAY 09/04/18 09:00 09/07/18 07:52 DC 09/06/18 10:28 100 MLS/HR Lidocaine HCl (Glydo (Lidocaine) Jelly) 1 meng 1X STAT 08/28/18 10:16 08/28/18 10:19 DC 08/28/18 10:16 1 MENG Lidocaine/Sodium Bicarbonate (Buffered Lidocaine 1%) 3 ml 1X ONCE 09/10/18 08:45 09/10/18 08:46 DC 09/10/18 09:51 3 ML Linezolid/Dextrose 300 ml @ 300 mls/hr Q12HR 09/05/18 09:30 09/10/18 07:34 DC 09/09/18 21:21 300 MLS/HR Magnesium Sulfate 50 ml @ 25 mls/hr 1X ONCE 08/25/18 21:15 08/25/18 23:14 DC 08/25/18 23:51 25 MLS/HR Meropenem 500 mg/ Sodium Chloride 50 ml @ 100 mls/hr DAILY 08/26/18 09:00 08/30/18 08:17 DC 08/29/18 10:13 100 MLS/HR Micafungin Sodium 100 mg/Dextrose 100 ml @ 100 mls/hr Q24H 09/07/18 08:30 09/10/18 08:09 100 MLS/HR Midazolam HCl 100 ml @ 0 mls/hr CONT PRN 09/01/18 00:00 09/08/18 11:30 DC Norepinephrine Bitartrate 250 ml @ 0 mls/hr CONT PRN 08/26/18 09:15 08/30/18 17:20 DC 08/27/18 10:21 1.88 MLS/HR Ondansetron HCl (Zofran) 4 mg PRN Q6HRS PRN 08/31/18 08:00 Piperacillin Sod/ Tazobactam Sod 2.25 gm/Sodium Chloride 50 ml @ 100 mls/hr Q6HRS 09/01/18 14:00 09/10/18 05:31 100 MLS/HR Piperacillin Sod/ Tazobactam Sod 4.5 gm/Sodium Chloride 100 ml @ 200 mls/hr 1X ONCE 08/25/18 21:15 08/25/18 21:44 DC Propofol 100 ml @ 0 mls/hr CONT PRN 09/01/18 00:00 09/06/18 10:59 DC 09/06/18 08:14 6.135 MLS/HR Sodium Bicarbonate (Sodium Bicarb Adult 8.4% Syr) 100 meq STK-MED ONCE 08/31/18 08:06 09/04/18 08:07 DC Sodium Chloride 1,000 ml @ 400 mls/hr Q2H30M PRN 09/07/18 16:29 09/08/18 04:28 DC Sodium Chloride (Normal Saline Flush) 10 ml 1X PRN PRN 09/05/18 09:00 09/06/18 08:59 DC Sodium Chloride 90 meq/Potassium Chloride 50 meq/ Potassium Phosphate 10 mmol/ Calcium Gluconate 10 meq/ Multivitamins 10 ml/Chromium/ Copper/Manganese/ Seleni/Zn 1 ml/ Total Parenteral Nutrition/Amino Acids/Dextrose 1,512 ml @ 63 mls/hr TPN CONT 09/01/18 22:00 09/02/18 21:59 DC 09/01/18 22:11 63 MLS/HR Sodium Chloride 90 meq/Potassium Chloride 50 meq/ Potassium Phosphate 3 mmol/ Magnesium Sulfate 10 meq/Calcium Gluconate 10 meq/ Multivitamins 10 ml/Chromium/ Copper/Manganese/ Seleni/Zn 1 ml/ Total Parenteral Nutrition/Amino Acids/Dextrose/ Fat Emulsion Intravenous 1,512 ml @ 63 mls/hr TPN CONT 08/30/18 22:00 08/31/18 21:59 DC 08/30/18 21:40 63 MLS/HR Sodium Chloride 90 meq/Potassium Chloride 50 meq/ Potassium Phosphate 5 mmol/ Magnesium Sulfate 3 meq/Calcium Gluconate 10 meq/ Multivitamins 10 ml/Chromium/ Copper/Manganese/ Seleni/Zn 1 ml/ Total Parenteral Nutrition/Amino Acids/Dextrose 1,512 ml @ 63 mls/hr TPN CONT 08/31/18 22:00 09/01/18 21:59 DC 08/31/18 20:59 63 MLS/HR Sodium Chloride 110 meq/Potassium Chloride 50 meq/ Potassium Phosphate 10 mmol/ Calcium Gluconate 10 meq/ Multivitamins 10 ml/Chromium/ Copper/Manganese/ Seleni/Zn 1 ml/ Magnesium Sulfate 3 meq/Total Parenteral Nutrition/Amino Acids/Dextrose 1,512 ml @ 63 mls/hr TPN CONT 09/02/18 22:00 09/03/18 21:59 DC 09/02/18 22:13 63 MLS/HR Sodium Chloride 130 meq/Potassium Acetate 20 meq/ Calcium Gluconate 10 meq/ Multivitamins 10 ml/Chromium/ Copper/Manganese/ Seleni/Zn 1 ml/ Magnesium Sulfate 3 meq/Total Parenteral Nutrition/Amino Acids/Dextrose 1,512 ml @ 63 mls/hr TPN CONT 09/03/18 22:00 09/04/18 21:59 DC 09/03/18 22:12 63 MLS/HR Succinylcholine Chloride (Anectine) 200 mg 1X ONCE 09/01/18 01:15 09/01/18 01:16 DC 08/31/18 23:04 200 MG Vancomycin HCl 2 gm/Sodium Chloride 500 ml @ 250 mls/hr 1X ONCE 08/25/18 21:30 08/25/18 23:29 DC 08/25/18 23:10 250 MLS/HR Lab Laboratory Tests Test 09/10/18 04:45 White Blood Count 11.1 x10^3/uL (4.0-11.0) Red Blood Count 2.37 x10^6/uL (4.30-5.70) Hemoglobin 7.0 g/dL (13.0-17.5) Hematocrit 20.3 % (39.0-53.0) Mean Corpuscular Volume 86 fL (79-100) Mean Corpuscular Hemoglobin 29 pg (25-35) Mean Corpuscular Hemoglobin Concent 34 g/dL (31-37) Red Cell Distribution Width 18.4 % (11.5-14.5) Platelet Count 359 x10^3/uL (140-400) Neutrophils (%) (Auto) 58 % (31-73) Lymphocytes (%) (Auto) 28 % (24-48) Monocytes (%) (Auto) 12 % (0-9) Eosinophils (%) (Auto) 1 % (0-3) Basophils (%) (Auto) 1 % (0-3) Neutrophils # (Auto) 6.4 x10^3uL (1.8-7.7) Lymphocytes # (Auto) 3.1 x10^3/uL (1.0-4.8) Monocytes # (Auto) 1.3 x10^3/uL (0.0-1.1) Eosinophils # (Auto) 0.1 x10^3/uL (0.0-0.7) Basophils # (Auto) 0.1 x10^3/uL (0.0-0.2) Sodium Level 134 mmol/L (136-145) Potassium Level 4.7 mmol/L (3.5-5.1) Chloride Level 92 mmol/L (98-107) Carbon Dioxide Level 21 mmol/L (21-32) Anion Gap 21 (6-14) Blood Urea Nitrogen 117 mg/dL (8-26) Creatinine 10.6 mg/dL (0.7-1.3) Estimated GFR (Cockcroft-Gault) 5.1 BUN/Creatinine Ratio 11 (6-20) Glucose Level 107 mg/dL (70-99) Calcium Level 7.1 mg/dL (8.5-10.1) Total Bilirubin 0.9 mg/dL (0.2-1.0) Aspartate Amino Transf (AST/SGOT) 39 U/L (15-37) Alanine Aminotransferase (ALT/SGPT) 36 U/L (16-63) Alkaline Phosphatase 113 U/L (46-116) Total Protein 6.9 g/dL (6.4-8.2) Albumin 2.1 g/dL (3.4-5.0) Albumin/Globulin Ratio 0.4 (1.0-1.7) Results All relevant outside records, renal labs, imaging studies, telemetry/EKG's were reviewed. OG CHAVES MD Sep 10, 2018 10:12
--- NOTE | 2018-09-10 11:01 | RAD ---
Portable chest x-ray compared to similar study dated September 092018 for status post right IJ temporary hemodialysis catheter placement. FINDINGS: There is a new right IJ hemodialysis catheter with the distal tip appropriately positioned. This appears suitable for use. There are worsening perihilar infiltrates with central vascular congestion. Enteric tube is unchanged. Heart size is borderline enlarged but stable. IMPRESSION: 1. Worsening perihilar infiltrates and central vascular congestion. 2. New right IJ temporary hemodialysis catheter suitably positioned for use. Electronically signed by: Javier Dan MD (09/10/2018 10:58 AM) [id number]
--- NOTE | 2018-09-10 12:30 | NUR ---
Bedside Swallow Evaluation completed. Please refer to full report for additional information. Impressions: Mild oropharyngeal dysphagia w/ significant risk of aspiration currently from pt's decreased and variable awareness, transit, manipulation and swallow initiation of boluses which varied greatly from trial to trial. Hyolaryngeal excursion minimally decreased via palp and no overt s/s aspiration were noted during evaluation. Anticipate w/ pt's improved alertness/awareness to boluses pt will be able to start a PO diet. Recommendations: NPO. Oral care. ST f/u for dysphagia and assessment of swallow safety to initiate a diet. D/w pt and MU Singleton
[2018-09-10] MEDS ORDERED: IV NORMAL SALINE 1000ML BAG 1,000 ML IV PRN ×2 (13:19)
[2018-09-10] MEDS ORDERED: DIALYSIS PATIENT. MC PRN (13:30)
[2018-09-10] MEDS ORDERED: diphenhydrAMINE 50 MG/ML VIAL IV PRN ×2 (13:30)
--- NOTE | 2018-09-10 14:20 | NUR ---
Report given to MU Taylor on 6S. Left voicemail with notifying of pt transfer after dialysis.
--- NOTE | 2018-09-10 14:28 | RAD ---
Procedure: Temporary hemodialysis catheter placement at the bedside. Clinical Indication: 52-year-old requiring hemodialysis Sedation: Local anesthesia only Antibiotics: None Fluoro Time: Not applicable Contrast: None Sterility: All elements of maximal sterile barrier technique including the use of a cap, mask, sterile gown, sterile gloves, large sterile sheet, appropriate hand hygiene, and 2% chlorhexidine for cutaneous antisepsis (or acceptable alternative antiseptic per current guidelines) were followed for this procedure. Consent: The procedure was explained in its entirety to the patient or the patients designated operations support representative by a member of the treatment team, including a discussion of the risks, benefits and commonly accepted alternatives to the procedure, as well as the expected consequences of no therapy whatsoever. Discussion of the risks included, but was not limited to, those that are most frequent and those that are rare but possibly severe or life-threatening, as well as the possibility of unforeseen complications. Technique and Findings: Following informed consent, the patient was prepped and draped in the usual sterile fashion. Ultrasound interrogation of the right neck revealed patency and compressibility of the right internal jugular vein. A small nonocclusive thrombus is present. A 21-gauge micropuncture needle was used to gain access to this vein after 1% Lidocaine was used to achieve local anesthesia. A hardcopy ultrasound image was recorded. The needle was exchanged over a wire for serial dilators followed by a 20 cm trialysis temporary hemodialysis catheter which was deployed in the expected location of the mid right atrium. The catheter flow rates were assessed manually and found to be excellent. The catheter was then flushed, packed with Heparin, capped, and sutured to the skin. Chest x-ray was then obtained to assess line position. Complications: No immediate Impression: 1. Ultrasound guided placement of a temporary hemodialysis catheter which exhibits excellent manual flow rates as described.
--- NOTE | 2018-09-10 16:32 | NUR ---
SS following up with discharge planning. SS phoned and faxed updated clinical to [facility], ; fax [phone].
--- NOTE | 2018-09-10 16:47 | PDOC ---
PROGRESS NOTES Subjective Subjective HPI -f/u of Thrombocytopenia and anemia ROS - no fever Objective Objective Vital Signs Date Time Temp Pulse Resp B/P (MAP) Pulse Ox O2 Delivery O2 Flow Rate FiO2 09/10/18 16:16 97.7 81 22 155/85 (108) 93 Nasal Cannula 3.0 97.7 l Intake and Output 09/10/18 06:59 Intake Total 2008 ml Output Total 140 ml Balance 1868 ml Intake Oral 0 ml Tube Feeding 1558 ml Other 450 ml Output Urine Total 140 ml # Bowel Movements 3 Physical Exam Heart: Normal S1, Normal S2 General: Alert, No acute distress Lungs: Clear to auscultation Neuro: Normal speech Psych/Mental Status: Mental status NL Assessment Assessment Problems Medical Problems: (1) Acute renal failure Status: Acute Assessment/Plan 52 yo male presents with week long history of fever and found to have thrombocytopenia, ARF, elevated LFTs 1. Septic shock - Fever - Tick borne illness suspected. Per ID. 2. Dehydration 3. Acute renal failure. Cr 7.1, management per nephro. 4. Elevated LFTs 5. Thrombocytopenia due to sepsis, no clinical evidence of TTP, no evidence of schistocytes, normal retic and haptoglobin and Hb. He should be transfused plts if his plt count <10 or he develops active bleeding. Plt better at 30 on 08/27/18. Plt better at 47 on 08/28/18, Plt better at 58 on 08/29/18 Plt better at 67 on 08/30/18. Plt better at 73 on 08/31/18 Plt better at 139 on 09/04/18, Plt normal at 175, Monitor cbc. Plt normal at 345 on 09/09/18 No bleeding 6. Anemia, Hb 7.0 on 09/10/18 6.Hemochromatosis, he follows with Dr. Iverson at [facility] and has been undergoing phlebotomy. His last phlebotomy was in late June. Comment Review of Relevant I have reviewed the following items gera (where applicable) has been applied. Labs Laboratory Tests Test 09/09/18 04:40 09/10/18 04:45 White Blood Count 9.4 x10^3/uL (4.0-11.0) 11.1 x10^3/uL (4.0-11.0) Red Blood Count 2.39 x10^6/uL (4.30-5.70) 2.37 x10^6/uL (4.30-5.70) Hemoglobin 7.1 g/dL (13.0-17.5) 7.0 g/dL (13.0-17.5) Hematocrit 20.6 % (39.0-53.0) 20.3 % (39.0-53.0) Mean Corpuscular Volume 86 fL (79-100) 86 fL (79-100) Mean Corpuscular Hemoglobin 30 pg (25-35) 29 pg (25-35) Mean Corpuscular Hemoglobin Concent 35 g/dL (31-37) 34 g/dL (31-37) Red Cell Distribution Width 18.7 % (11.5-14.5) 18.4 % (11.5-14.5) Platelet Count 345 x10^3/uL (140-400) 359 x10^3/uL (140-400) Neutrophils (%) (Auto) 58 % (31-73) 58 % (31-73) Lymphocytes (%) (Auto) 26 % (24-48) 28 % (24-48) Monocytes (%) (Auto) 14 % (0-9) 12 % (0-9) Eosinophils (%) (Auto) 1 % (0-3) 1 % (0-3) Basophils (%) (Auto) 1 % (0-3) 1 % (0-3) Neutrophils # (Auto) 5.5 x10^3uL (1.8-7.7) 6.4 x10^3uL (1.8-7.7) Lymphocytes # (Auto) 2.5 x10^3/uL (1.0-4.8) 3.1 x10^3/uL (1.0-4.8) Monocytes # (Auto) 1.3 x10^3/uL (0.0-1.1) 1.3 x10^3/uL (0.0-1.1) Eosinophils # (Auto) 0.1 x10^3/uL (0.0-0.7) 0.1 x10^3/uL (0.0-0.7) Basophils # (Auto) 0.1 x10^3/uL (0.0-0.2) 0.1 x10^3/uL (0.0-0.2) Sodium Level 136 mmol/L (136-145) 134 mmol/L (136-145) Potassium Level 4.4 mmol/L (3.5-5.1) 4.7 mmol/L (3.5-5.1) Chloride Level 95 mmol/L (98-107) 92 mmol/L (98-107) Carbon Dioxide Level 22 mmol/L (21-32) 21 mmol/L (21-32) Anion Gap 19 (6-14) 21 (6-14) Blood Urea Nitrogen 92 mg/dL (8-26) 117 mg/dL (8-26) Creatinine 8.2 mg/dL (0.7-1.3) 10.6 mg/dL (0.7-1.3) Estimated GFR (Cockcroft-Gault) 6.9 5.1 BUN/Creatinine Ratio 11 (6-20) 11 (6-20) Glucose Level 115 mg/dL (70-99) 107 mg/dL (70-99) Calcium Level 6.8 mg/dL (8.5-10.1) 7.1 mg/dL (8.5-10.1) Total Bilirubin 0.8 mg/dL (0.2-1.0) 0.9 mg/dL (0.2-1.0) Aspartate Amino Transf (AST/SGOT) 40 U/L (15-37) 39 U/L (15-37) Alanine Aminotransferase (ALT/SGPT) 32 U/L (16-63) 36 U/L (16-63) Alkaline Phosphatase 116 U/L (46-116) 113 U/L (46-116) Total Protein 6.4 g/dL (6.4-8.2) 6.9 g/dL (6.4-8.2) Albumin 2.0 g/dL (3.4-5.0) 2.1 g/dL (3.4-5.0) Albumin/Globulin Ratio 0.5 (1.0-1.7) 0.4 (1.0-1.7) Laboratory Tests Test 09/10/18 04:45 White Blood Count 11.1 x10^3/uL (4.0-11.0) Red Blood Count 2.37 x10^6/uL (4.30-5.70) Hemoglobin 7.0 g/dL (13.0-17.5) Hematocrit 20.3 % (39.0-53.0) Mean Corpuscular Volume 86 fL (79-100) Mean Corpuscular Hemoglobin 29 pg (25-35) Mean Corpuscular Hemoglobin Concent 34 g/dL (31-37) Red Cell Distribution Width 18.4 % (11.5-14.5) Platelet Count 359 x10^3/uL (140-400) Neutrophils (%) (Auto) 58 % (31-73) Lymphocytes (%) (Auto) 28 % (24-48) Monocytes (%) (Auto) 12 % (0-9) Eosinophils (%) (Auto) 1 % (0-3) Basophils (%) (Auto) 1 % (0-3) Neutrophils # (Auto) 6.4 x10^3uL (1.8-7.7) Lymphocytes # (Auto) 3.1 x10^3/uL (1.0-4.8) Monocytes # (Auto) 1.3 x10^3/uL (0.0-1.1) Eosinophils # (Auto) 0.1 x10^3/uL (0.0-0.7) Basophils # (Auto) 0.1 x10^3/uL (0.0-0.2) Sodium Level 134 mmol/L (136-145) Potassium Level 4.7 mmol/L (3.5-5.1) Chloride Level 92 mmol/L (98-107) Carbon Dioxide Level 21 mmol/L (21-32) Anion Gap 21 (6-14) Blood Urea Nitrogen 117 mg/dL (8-26) Creatinine 10.6 mg/dL (0.7-1.3) Estimated GFR (Cockcroft-Gault) 5.1 BUN/Creatinine Ratio 11 (6-20) Glucose Level 107 mg/dL (70-99) Calcium Level 7.1 mg/dL (8.5-10.1) Total Bilirubin 0.9 mg/dL (0.2-1.0) Aspartate Amino Transf (AST/SGOT) 39 U/L (15-37) Alanine Aminotransferase (ALT/SGPT) 36 U/L (16-63) Alkaline Phosphatase 113 U/L (46-116) Total Protein 6.9 g/dL (6.4-8.2) Albumin 2.1 g/dL (3.4-5.0) Albumin/Globulin Ratio 0.4 (1.0-1.7) Microbiology 09/08/18 Blood Culture - Preliminary, Resulted NO GROWTH AFTER 2 DAYS 08/29/18 CSF Gram Stain - Final, Complete 08/27/18 Stool Culture - Final, Complete 08/27/18 Stool Culture Result 1 (LOTUS) - Final, Complete 08/27/18 Campylobacter Antigen Assay - Final, Complete 08/27/18 Campylobactor Result 1 - Final, Complete 08/27/18 Shiga Toxin Test - Final, Complete 09/05/18 - Final, Complete 09/05/18 - Final, Complete 09/05/18 - Final, Complete 09/05/18 Gram Stain Evaluation - Final, Complete 09/05/18 Sputum Culture - Final, Complete 09/05/18 Sputum Result 1 - Final, Complete 09/04/18 Urine Culture - Final, Complete 09/04/18 Urine Culture Result 1 (LOTUS) - Final, Complete Medications Current Medications Sodium Chloride 1,000 ml @ 1,000 mls/hr 1X ONCE IV Last administered on 08/25/18at 20:38; Start 08/25/18 at 19:15; Stop 08/25/18 at 20:14; Status DC Ibuprofen (Motrin) 600 mg 1X ONCE PO Last administered on 08/25/18at 20:38; Start 08/25/18 at 19:45; Stop 08/25/18 at 19:49; Status DC Sodium Chloride 1,000 ml @ 1,000 mls/hr 1X ONCE IV Last administered on 08/25/18at 20:30; Start 08/25/18 at 20:30; Stop 08/25/18 at 21:29; Status DC Ceftriaxone Sodium (Rocephin) 1 gm 1X ONCE IVP Last administered on 08/25/18at 20:36; Start 08/25/18 at 20:30; Stop 08/25/18 at 20:31; Status DC Vancomycin HCl 2 gm/Sodium Chloride 500 ml @ 250 mls/hr 1X ONCE IV Last administered on 08/25/18at 23:10; Start 08/25/18 at 21:30; Stop 08/25/18 at 23:29; Status DC Sodium Chloride 1,000 ml @ 1,000 mls/hr 1X ONCE IV Last administered on 23:51; Start 08/25/18 at 21:00; Stop 08/25/18 at 21:59; Status DC Piperacillin Sod/ Tazobactam Sod 4.5 gm/Sodium Chloride 100 ml @ 200 mls/hr 1X ONCE IV ; Start 08/25/18 at 21:15; Stop 08/25/18 at 21:44; Status DC Aztreonam (Azactam) 2 gm 1X ONCE IVP Last administered on 08/25/18at 21:15; Start 08/25/18 at 21:15; Stop 08/25/18 at 21:16; Status DC Magnesium Sulfate 50 ml @ 25 mls/hr 1X ONCE IV Last administered on 08/25/18at 23:51; Start 08/25/18 at 21:15; Stop 08/25/18 at 23:14; Status DC Ondansetron HCl (Zofran) 4 mg PRN Q8HRS PRN IV NAUSEA/VOMITING; Start 08/25/18 at 21:15; Stop 08/26/18 at 21:14; Status DC Acetaminophen (Tylenol) 650 mg PRN Q4HRS PRN PO FEVER; Start 08/25/18 at 21:15; Stop 08/26/18 at 21:14; Status DC Sodium Chloride 1,000 ml @ 125 mls/hr 1X ONCE IV Last administered on 08/25/18at 23:09; Start 08/25/18 at 21:15; Stop 08/26/18 at 05:14; Status DC Daptomycin 610 mg/ Sodium Chloride 50 ml @ 100 mls/hr QODAY IV Last administered on 08/27/18at 08:59; Start 08/27/18 at 09:00; Stop 08/28/18 at 15:40; Status DC Meropenem 500 mg/ Sodium Chloride 50 ml @ 100 mls/hr 1X ONCE IV Last administered on 08/25/18at 22:12; Start 08/25/18 at 22:00; Stop 08/25/18 at 22:29; Status DC Doxycycline Hyclate 100 mg/ Dextrose 100 ml @ 50 mls/hr Q12HR IV Last administered on 09/03/18at 22:11; Start 08/26/18 at 09:00; Stop 09/04/18 at 08:11; Status DC Meropenem 500 mg/ Sodium Chloride 50 ml @ 100 mls/hr DAILY IV Last administered on 08/29/18at 10:13; Start 08/26/18 at 09:00; Stop 08/30/18 at 08:17; Status DC Sodium Chloride (Normal Saline Flush) 10 ml QSHIFT PRN IV AFTER MEDS AND BLOOD DRAWS; Start 08/26/18 at 09:15 Norepinephrine Bitartrate 250 ml @ 0 mls/hr CONT PRN IV PER PROTOCOL Last administered on 08/27/18at 10:21; Start 08/26/18 at 09:15; Stop 08/30/18 at 17:20; Status DC Famotidine (Pepcid) 20 mg DAILY PO Last administered on 08/27/18at 08:14; Start 08/26/18 at 12:00; Stop 08/27/18 at 14:36; Status DC Sodium Chloride 1,000 ml @ 1,000 mls/hr Q1H PRN IV hypotension; Start 08/26/18 at 11:51; Stop 08/26/18 at 17:50; Status DC Sodium Chloride (Normal Saline Flush) 10 ml 1X PRN PRN IV AP catheter pack; Start 08/26/18 at 12:00; Stop 08/27/18 at 11:59; Status DC Sodium Chloride (Normal Saline Flush) 10 ml 1X PRN PRN IV [employer] catheter pack; Start 08/26/18 at 12:00; Stop 08/27/18 at 11:59; Status DC Sodium Chloride 1,000 ml @ 400 mls/hr Q2H30M PRN IV PATENCY; Start 08/26/18 at 11:51; Stop 08/26/18 at 23:50; Status DC Info (PHARMACY MONITORING -- do not chart) 1 each PRN DAILY PRN MC SEE COMMENTS; Start 08/26/18 at 12:00; Status UNV Info (PHARMACY MONITORING -- do not chart) 1 each PRN DAILY PRN MC SEE JANIYA CHUA; Start 08/26/18 at 12:00; Stop 09/01/18 at 10:59; Status DC Lidocaine/Sodium Bicarbonate (Buffered Lidocaine 1%) 4 ml 1X ONCE INJ Last administered on 08/26/18at 12:45; Start 08/26/18 at 12:45; Stop 08/26/18 at 12:48; Status DC Heparin Sodium (Porcine) (Heparin Sodium) 2,500 unit 1X ONCE INT CAT Last administered on 08/26/18at 12:45; Start 08/26/18 at 12:45; Stop 08/26/18 at 12:48; Status DC Lidocaine/Sodium Bicarbonate (Buffered Lidocaine 1%) 3 ml STK-MED ONCE .ROUTE ; Start 08/26/18 at 12:49; Stop 08/26/18 at 12:50; Status DC Heparin Sodium (Porcine) (Heparin Sodium) 10,000 unit STK-MED ONCE .ROUTE ; Start 08/26/18 at 12:49; Stop 08/26/18 at 12:50; Status DC Lactobacillus Rhamnosus (Culturelle) 1 cap BID PO Last administered on 09/08/18at 09:34; Start 08/26/18 at 21:00; Stop 09/08/18 at 10:55; Status DC Acetaminophen (Tylenol) 325 mg STK-MED ONCE PO ; Start 08/27/18 at 00:43; Stop 08/27/18 at 00:44; Status DC Sodium Chloride 1,000 ml @ 1,000 mls/hr 1X ONCE IV Last administered on 08/27/18at 11:05; Start 08/27/18 at 10:30; Stop 08/27/18 at 11:29; Status DC Sodium Chloride 1,000 ml @ 1,000 mls/hr Q1H PRN IV hypotension; Start 08/27/18 at 11:28; Stop 08/27/18 at 17:27; Status DC Albumin Human 200 ml @ 200 mls/hr 1X PRN PRN IV Hypotension; Start 08/27/18 at 11:30; Stop 08/27/18 at 17:29; Status DC Sodium Chloride (Normal Saline Flush) 10 ml 1X PRN PRN IV AP catheter pack; Start 08/27/18 at 11:30; Stop 08/28/18 at 11:29; Status DC Sodium Chloride (Normal Saline Flush) 10 ml 1X PRN PRN IV [employer] catheter pack; Start 08/27/18 at 11:30; Stop 08/28/18 at 11:29; Status DC Sodium Chloride 1,000 ml @ 400 mls/hr Q2H30M PRN IV PATENCY; Start 08/27/18 at 11:28; Stop 08/27/18 at 23:27; Status DC Info (PHARMACY MONITORING -- do not chart) 1 each PRN DAILY PRN MC SEE COMMENTS; Start 08/27/18 at 11:30; Status UNV Info (PHARMACY MONITORING -- do not chart) 1 each PRN DAILY PRN MC SEE COMMENTS; Start 08/27/18 at 11:30; Status UNV Famotidine (Pepcid) 20 mg Q48H PO ; Start 08/29/18 at 09:00; Stop 08/29/18 at 1 1:29; Status DC Acetaminophen (Tylenol) 650 mg PRN Q6HRS PRN PO mild pain/fever; Start 08/27/18 at 21:15 Acetaminophen (Tylenol Supp) 650 mg PRN Q6HRS PRN MI MILD PAIN / TEMP Last administered on 09/02/18at 01:18; Start 08/27/18 at 21:15 Fentanyl Citrate (Fentanyl 2ml Vial) 25 mcg 1X ONCE IV Last administered on 08/28/18at 08:54; Start 08/28/18 at 08:45; Stop 08/28/18 at 08:47; Status DC Lidocaine/Sodium Bicarbonate (Buffered Lidocaine 1%) 3 ml STK-MED ONCE .ROUTE ; Start 08/28/18 at 09:55; Stop 08/28/18 at 09:56; Status DC Lidocaine HCl (Glydo (Lidocaine) Jelly) 1 meng 1X STAT MM Last administered on 08/28/18at 10:16; Start 08/28/18 at 10:16; Stop 08/28/18 at 10:19; Status DC Benzocaine (Hurricaine One) 1 spray 1X STAT MM Last administered on 08/28/18at 10:16; Start 08/28/18 at 10:16; Stop 08/28/18 at 10:19; Status DC Lidocaine/Sodium Bicarbonate (Buffered Lidocaine 1%) 3 ml 1X ONCE INJ ; Start 08/28/18 at 10:30; Stop 08/28/18 at 10:31; Status DC Haloperidol Lactate (Haldol Inj) 5 mg PRN Q6HRS PRN IVP AGITATION Last administered on 09/06/18at 05:53; Start 08/28/18 at 12:00 Fentanyl Citrate (Fentanyl 2ml Vial) 50 mcg PRN Q4HRS PRN IV PAIN Last administered on 08/28/18at 21:44; Start 08/28/18 at 15:30; Stop 09/05/18 at 02:11; Status DC Sodium Chloride 1,000 ml @ 1,000 mls/hr Q1H PRN IV hypotension; Start 08/28/18 at 14:00; Stop 08/28/18 at 19:59; Status DC Albumin Human 200 ml @ 200 mls/hr 1X PRN PRN IV Hypotension Last administered on 08/28/18at 14:50; Start 08/28/18 at 14:00; Stop 09/03/18 at 18:17; Status DC Sodium Chloride 1,000 ml @ 400 mls/hr Q2H30M PRN IV PATENCY; Start 08/28/18 at 14:00; Stop 08/29/18 at 01:59; Status DC Info (PHARMACY MONITORING -- do not chart) 1 each PRN DAILY PRN MC SEE COMMENTS; Start 08/28/18 at 15:30; Status UNV Info (PHARMACY MONITORING -- do not chart) 1 each PRN DAILY PRN MC SEE COMMENTS; Start 08/28/18 at 15:30; Status UNV Daptomycin 610 mg/ Sodium Chloride 50 ml @ 100 mls/hr Q48H IV ; Start 08/30/18 at 16:00; Stop 08/30/18 at 16:00; Status DC Famotidine (Pepcid Vial) 20 mg QHS IVP Last administered on 08/31/18at 20:59; Start 08/29/18 at 21:00; Stop 09/01/18 at 11:00; Status DC Acyclovir Sodium 340 mg/Dextrose 106.8 ml @ 106.8 mls/ hr Q12HR IV Last administered on 09/01/18at 11:05; Start 08/30/18 at 09:00; Stop 09/01/18 at 13:37; Status DC Sodium Chloride 1,000 ml @ 1,000 mls/hr Q1H PRN IV hypotension; Start 08/30/18 at 11:02; Stop 08/30/18 at 17:01; Status DC Sodium Chloride 1,000 ml @ 400 mls/hr Q2H30M PRN IV PATENCY; Start 08/30/18 at 11:02; Stop 08/30/18 at 23:01; Status DC Info (PHARMACY MONITORING -- do not chart) 1 each PRN DAILY PRN MC SEE COMMENTS; Start 08/30/18 at 11:15; Status UNV Info (PHARMACY MONITORING -- do not chart) 1 each PRN DAILY PRN MC SEE COMMENTS; Start 08/30/18 at 11:15; Status UNV Info (Tpn Per Pharmacy) 1 each PRN DAILY PRN MC SEE COMMENTS Last administered on 09/03/18at 10:53; Start 08/30/18 at 12:45; Stop 09/04/18 at 12:50; Status DC Sodium Chloride 90 meq/Potassium Chloride 50 meq/ Potassium Phosphate 3 mmol/ Magnesium Sulfate 10 meq/Calcium Gluconate 10 meq/ Multivitamins 10 ml/Chromium/ Copper/Manganese/ Seleni/Zn 1 ml/ Total Parenteral Nutrition/Amino Acids/Dextrose/ Fat Emulsion Intravenous 1,512 ml @ 63 mls/hr TPN CONT IV Last administered on 08/30/18at 21:40; Start 08/30/18 at 22:00; Stop 08/31/18 at 21:59; Status DC Ondansetron HCl (Zofran) 4 mg PRN Q6HRS PRN IV NAUSEA/VOMITING; Start 08/31/18 at 08:00 Haloperidol (Haldol) 2 mg PRN QID PRN PO AGITATION; Start 08/31/18 at 08:00; Stop 08/31/18 at 12:43; Status DC Haloperidol Lactate (HALDOL 2mg ORAL CONC) 2 mg PRN QID PRN PO AGITATION; Start 08/31/18 at 12:43 Sodium Chloride 90 meq/Potassium Chloride 50 meq/ Potassium Phosphate 5 mmol/ Magnesium Sulfate 3 meq/Calcium Gluconate 10 meq/ Multivitamins 10 ml/Chromium/ Copper/Manganese/ Seleni/Zn 1 ml/ Total Parenteral Nutrition/Amino Acids/Dextrose 1,512 ml @ 63 mls/hr TPN CONT IV Last administered on 08/31/18at 20:59; Start 08/31/18 at 22:00; Stop 09/01/18 at 21:59; Status DC Propofol 100 ml @ As Directed STK-MED ONCE IV ; Start 08/31/18 at 22:45; Stop 08/31/18 at 22:46; Status DC Succinylcholine Chloride (Anectine) 200 mg STK-MED ONCE .ROUTE ; Start 08/31/18 at 22:46; Stop 08/31/18 at 22:47; Status DC Atropine Sulfate (ATROPINE 1mg SYRINGE) 1 mg STK-MED ONCE .ROUTE ; Start 08/31/18 at 22:58; Stop 08/31/18 at 22:59; Status DC Fentanyl Citrate 30 ml @ 0 mls/hr CONT PRN IV SEE PROTOCOL Last administered on 09/06/18at 10:39; Start 09/01/18 at 00:00; Stop 09/06/18 at 10:59; Status DC Propofol 100 ml @ 0 mls/hr CONT PRN IV SEE PROTOCOL Last administered on 09/06/18at 08:14; Start 09/01/18 at 00:00; Stop 09/06/18 at 10:59; Status DC Chlorhexidine Gluconate (Peridex) 15 ml BID MM Last administered on 09/07/18at 21:21; Start 09/01/18 at 09:00; Stop 09/08/18 at 08:04; Status DC Midazolam HCl 100 ml @ 0 mls/hr CONT PRN IV SEE PROTOCOL; Start 09/01/18 at 00:00; Stop 09/08/18 at 11:30; Status DC Albuterol/ Ipratropium (Duoneb) 3 ml RTQID NEB Last administered on 09/10/18at 13:02; Start 09/01/18 at 08:00 Albuterol/ Ipratropium (Duoneb) 3 ml 1X ONCE NEB Last administered on 09/01/18at 01:10; Start 09/01/18 at 01:00; Stop 09/01/18 at 01:01; Status DC Succinylcholine Chloride (Anectine) 200 mg 1X ONCE IV Last administered on 08/31/18at 23:04; Start 09/01/18 at 01:15; Stop 09/01/18 at 01:16; Status DC Sodium Chloride 1,000 ml @ 1,000 mls/hr Q1H PRN IV hypotension; Start 09/01/18 at 07:00; Stop 09/01/18 at 12:59; Status DC Sodium Chloride (Normal Saline Flush) 10 ml 1X PRN PRN IV AP catheter pack; Start 09/01/18 at 07:00; Stop 09/02/18 at 06:59; Status DC Sodium Chloride (Normal Saline Flush) 10 ml 1X PRN PRN IV [employer] catheter pack; Start 09/01/18 at 07:00; Stop 09/02/18 at 06:59; Status DC Sodium Chloride 1,000 ml @ 400 mls/hr Q2H30M PRN IV PATENCY; Start 09/01/18 at 07:00; Stop 09/01/18 at 18:59; Status DC Info (PHARMACY MONITORING -- do not chart) 1 each PRN DAILY PRN MC SEE COMMENTS; Start 09/01/18 at 11:00; Status Cancel Info (PHARMACY MONITORING -- do not chart) 1 each PRN DAILY PRN MC SEE COMMENTS; Start 09/01/18 at 11:00; Status Cancel Famotidine (Pepcid Vial) 20 mg Q48H IVP Last administered on 09/09/18at 21:22; Start 09/03/18 at 21:00 Sodium Chloride 90 meq/Potassium Chloride 50 meq/ Potassium Phosphate 10 mmol/ Calcium Gluconate 10 meq/ Multivitamins 10 ml/Chromium/ Copper/Manganese/ Seleni/Zn 1 ml/ Total Parenteral Nutrition/Amino Acids/Dextrose 1,512 ml @ 63 mls/hr TPN CONT IV Last administered on 09/01/18at 22:11; Start 09/01/18 at 22:00; Stop 09/02/18 at 21:59; Status DC Piperacillin Sod/ Tazobactam Sod 2.25 gm/Sodium Chloride 50 ml @ 100 mls/hr Q6HRS IV Last administered on 09/10/18at 05:31; Start 09/01/18 at 14:00 Sodium Chloride 110 meq/Potassium Chloride 50 meq/ Potassium Phosphate 10 mmol/ Calcium Gluconate 10 meq/ Multivitamins 10 ml/Chromium/ Copper/Manganese/ Seleni/Zn 1 ml/ Magnesium Sulfate 3 meq/Total Parenteral Nutrition/Amino Acids/Dextrose 1,512 ml @ 63 mls/hr TPN CONT IV Last administered on 09/02/18at 22:13; Start 09/02/18 at 22:00; Stop 09/03/18 at 21:59; Status DC Darbepoetin Phil (Aranesp) 100 mcg [id number] SQ Last administered on 09/03/18at 22:11; Start 09/03/18 at 21:00 Sodium Chloride 130 meq/Potassium Acetate 20 meq/ Calcium Gluconate 10 meq/ Multivitamins 10 ml/Chromium/ Copper/Manganese/ Seleni/Zn 1 ml/ Magnesium Sulfate 3 meq/Total Parenteral Nutrition/Amino Acids/Dextrose 1,512 ml @ 63 mls/hr TPN CONT IV Last administered on 09/03/18at 22:12; Start 09/03/18 at 22:00; Stop 09/04/18 at 21:59; Status DC Albumin Human 200 ml @ 200 mls/hr 1X PRN PRN IV Hypotension; Start 09/03/18 at 10:00; Stop 09/03/18 at 21:00; Status DC Sodium Chloride (Normal Saline Flush) 10 ml 1X PRN PRN IV AP catheter pack; St art 09/03/18 at 10:00; Stop 09/03/18 at 21:00; Status DC Sodium Chloride (Normal Saline Flush) 10 ml 1X PRN PRN IV [employer] catheter pack; Start 09/03/18 at 10:00; Stop 09/03/18 at 21:00; Status DC Sodium Chloride 1,000 ml @ 400 mls/hr Q2H30M PRN IV PATENCY; Start 09/03/18 at 10:00; Stop 09/03/18 at 21:59; Status DC Info (PHARMACY MONITORING -- do not chart) 1 each PRN DAILY PRN MC SEE COMMENTS; Start 09/03/18 at 18:15; Status UNV Atropine Sulfate (ATROPINE 0.5mg SYRINGE) 0.5 mg STK-MED ONCE .ROUTE ; Start 08/31/18 at 08:06; Stop 09/04/18 at 08:07; Status DC Epinephrine HCl (EPINEPHrine SYRINGE) 3 mg STK-MED ONCE .ROUTE ; Start 08/31/18 at 08:06; Stop 09/04/18 at 08:07; Status DC Sodium Bicarbonate (Sodium Bicarb Adult 8.4% Syr) 100 meq STK-MED ONCE .ROUTE ; Start 08/31/18 at 08:06; Stop 09/04/18 at 08:07; Status DC Levofloxacin/ Dextrose 150 ml @ 100 mls/hr QODAY IV Last administered on 09/06/18at 10:28; Start 09/04/18 at 09:00; Stop 09/07/18 at 07:52; Status DC Sodium Chloride 1,000 ml @ 1,000 mls/hr Q1H PRN IV hypotension; Start 09/04/18 at 08:23; Stop 09/04/18 at 14:24; Status DC Albumin Human 200 ml @ 200 mls/hr 1X PRN PRN IV Hypotension; Start 09/04/18 at 08:30; Stop 09/04/18 at 14:29; Status DC Sodium Chloride 1,000 ml @ 400 mls/hr Q2H30M PRN IV PATENCY; Start 09/04/18 at 08:23; Stop 09/04/18 at 20:22; Status DC Info (PHARMACY MONITORING -- do not chart) 1 each PRN DAILY PRN MC SEE COMMENTS; Start 09/04/18 at 08:30; Stop 09/05/18 at 08:55; Status DC Info (PHARMACY MONITORING -- do not chart) 1 each PRN DAILY PRN MC SEE COMMENTS; Start 09/04/18 at 08:30; Status UNV Linezolid/Dextrose 300 ml @ 300 mls/hr Q12HR IV Last administered on 09/09/18at 21:21; Start 09/05/18 at 09:30; Stop 09/10/18 at 07:34; Status DC Sodium Chloride 1,000 ml @ 1,000 mls/hr Q1H PRN IV hypotension; Start 09/05/18 at 08:51; Stop 09/05/18 at 14:50; Status DC Sodium Chloride (Normal Saline Flush) 10 ml 1X PRN PRN IV AP catheter pack; Start 09/05/18 at 09:00; Stop 09/06/18 at 08:59; Status DC Sodium Chloride (Normal Saline Flush) 10 ml 1X PRN PRN IV [employer] catheter pack; Start 09/05/18 at 09:00; Stop 09/06/18 at 08:59; Status DC Sodium Chloride 1,000 ml @ 400 mls/hr Q2H30M PRN IV PATENCY; Start 09/05/18 at 08:51; Stop 09/05/18 at 20:50; Status DC Info (PHARMACY MONITORING -- do not chart) 1 each PRN DAILY PRN MC SEE COMMENTS; Start 09/05/18 at 09:00; Stop 09/05/18 at 09:00; Status DC Info (PHARMACY MONITORING -- do not chart) 1 each PRN DAILY PRN MC SEE COMMENTS; Start 09/05/18 at 09:00; Status Cancel Fentanyl Citrate (Fentanyl 2ml Vial) 25 mcg PRN Q2HR PRN IV MODERATE PAIN Last administered on 09/08/18at 04:34; Start 09/06/18 at 11:00 Dexmedetomidine HCl 200 mcg/ Sodium Chloride 50 ml @ 0 mls/hr CONT PRN IV PER PROTOCOL; Start 09/06/18 at 11:00; Stop 09/08/18 at 08:03; Status DC Sodium Chloride 500 ml @ 500 mls/hr 1X PRN PRN IV SEE COMMENTS; Start 09/06/18 at 11:00 Atropine Sulfate (ATROPINE 0.5mg SYRINGE) 0.5 mg PRN Q5MIN PRN IV SEE COMMENTS; Start 09/06/18 at 11:00 Sodium Chloride 1,000 ml @ 1,000 mls/hr Q1H PRN IV hypotension; Start 09/06/18 at 11:52; Stop 09/06/18 at 17:51; Status DC Diphenhydramine HCl (Benadryl) 25 mg 1X PRN PRN IV ITCHING; Start 09/06/18 at 12:00; Stop 09/07/18 at 11:59; Status DC Diphenhydramine HCl (Benadryl) 25 mg 1X PRN PRN IV ITCHING; Start 09/06/18 at 12:00; Stop 09/07/18 at 11:59; Status DC Sodium Chloride 1,000 ml @ 400 mls/hr Q2H30M PRN IV PATENCY; Start 09/06/18 at 11:52; Stop 09/06/18 at 23:51; Status DC Info (PHARMACY MONITORING -- do not chart) 1 each PRN DAILY PRN MC SEE COMMENTS; Start 09/06/18 at 12:00; Stop 09/06/18 at 12:00; Status DC Micafungin Sodium 100 mg/Dextrose 100 ml @ 100 mls/hr Q24H IV Last administered on 09/10/18at 08:09; Start 09/07/18 at 08:30 Sodium Chloride 1,000 ml @ 1,000 mls/hr Q1H PRN IV hypotension; Start 09/07/18 at 16:29; Stop 09/07/18 at 22:28; Status DC Diphenhydramine HCl (Benadryl) 25 mg 1X PRN PRN IV ITCHING; Start 09/07/18 at 16:30; Stop 09/08/18 at 16:29; Status DC Diphenhydramine HCl (Benadryl) 25 mg 1X PRN PRN IV ITCHING; Start 09/07/18 at 16:30; Stop 09/08/18 at 16:29; Status DC Sodium Chloride 1,000 ml @ 400 mls/hr Q2H30M PRN IV PATENCY; Start 09/07/18 at 16:29; Stop 09/08/18 at 04:28; Status DC Info (PHARMACY MONITORING -- do not chart) 1 each PRN DAILY PRN MC SEE COMMENTS; Start 09/07/18 at 16:30 Lidocaine/Sodium Bicarbonate (Buffered Lidocaine 1%) 3 ml 1X ONCE INJ Last administered on 09/10/18at 09:51; Start 09/10/18 at 08:45; Stop 09/10/18 at 08:46; Status DC Heparin Sodium (Porcine) (Heparin Sodium) 2,400 unit 1X ONCE INT CAT Last administered on 09/10/18at 09:51; Start 09/10/18 at 08:45; Stop 09/10/18 at 08:46; Status DC Sodium Chloride 1,000 ml @ 1,000 mls/hr Q1H PRN IV hypotension; Start 09/10/18 at 13:19; Stop 09/10/18 at 19:18 Diphenhydramine HCl (Benadryl) 25 mg 1X PRN PRN IV ITCHING; Start 09/10/18 at 13:30; Stop 09/11/18 at 13:29 Diphenhydramine HCl (Benadryl) 25 mg 1X PRN PRN IV ITCHING; Start 09/10/18 at 13:30; Stop 09/11/18 at 13:29 Sodium Chloride 1,000 ml @ 400 mls/hr Q2H30M PRN IV PATENCY; Start 09/10/18 at 13:19; Stop 09/11/18 at 01:18 Info (PHARMACY MONITORING -- do not chart) 1 each PRN DAILY PRN MC SEE COMMENTS; Start 09/10/18 at 13:30 Active Scripts Active Potassium Chloride 20 Meq Tablet.er 20 Meq PO DAILY Orphenadrine Citrate 100 Mg Tablet.er 100 Mg PO Q12HR Anaprox Ds (Naproxen Sodium) 550 Mg Tablet 550 Mg PO Q12HR Reported Prednisone 20 Mg Tablet 1 Tab PO DAILY Hydrochlorothiazide Tablet (Hydrochlorothiazide) 12.5 Mg Tablet 12.5 Mg PO DAILY Shilpi Allergy (Fexofenadine Hcl) 180 Mg Tablet 1 Tab PO DAILY Vitals/I & O Vital Sign - Last 24 Hours 09/09/18 09/09/18 09/09/18 09/09/18 17:00 18:00 19:00 20:00 Temp 98.5 98.5 Pulse 86 86 86 84 Resp 32 32 39 38 B/P (MAP) 143/75 (97) 140/78 (98) 133/77 (95) 134/73 (93) Pulse Ox 99 99 96 94 O2 Delivery Nasal Cannula Nasal Cannula Nasal Cannula Nasal Cannula O2 Flow Rate 3.0 3.0 3.0 3.0 09/09/18 09/09/18 09/09/18 09/09/18 20:00 20:03 21:00 22:00 Pulse 82 85 Resp 32 34 B/P (MAP) 137/74 (95) 142/79 (100) Pulse Ox 97 95 96 O2 Delivery Nasal Cannula Nasal Cannula Nasal Cannula Nasal Cannula O2 Flow Rate 3.0 2.0 3.0 3.0 09/10/18 09/10/18 09/10/18 09/10/18 00:00 00:02 01:00 02:00 Temp 98.5 98.5 Pulse 86 84 85 Resp 34 37 43 B/P (MAP) 147/74 (98) 139/72 (94) 149/72 (97) Pulse Ox 95 95 95 O2 Delivery Nasal Cannula Nasal Cannula Nasal Cannula Nasal Cannula O2 Flow Rate 3.0 3.0 3.0 3.0 09/10/18 09/10/18 09/10/18 09/10/18 03:00 03:47 04:20 05:00 Temp 99.4 99.4 Pulse 85 80 86 Resp 38 37 34 B/P (MAP) 144/75 (98) 153/81 (105) 153/81 (105) Pulse Ox 94 96 94 O2 Delivery Nasal Cannula Nasal Cannula Nasal Cannula Nasal Cannula O2 Flow Rate 3.0 3.0 3.0 3.0 09/10/18 09/10/18 09/10/18 09/10/18 06:08 07:00 08:00 08:00 Temp 97.7 97.7 Pulse 83 85 82 Resp 42 38 40 B/P (MAP) 150/76 (100) 151/77 (101) 150/86 (107) Pulse Ox 97 97 97 O2 Delivery Nasal Cannula Nasal Cannula Nasal Cannula Nasal Cannula O2 Flow Rate 3.0 3.0 3.0 3.0 09/10/18 09/10/18 09/10/18 09/10/18 08:02 09:00 10:00 11:00 Pulse 80 83 80 Resp 38 40 36 B/P (MAP) 151/85 (107) 160/82 (108) 150/84 (106) Pulse Ox 97 96 97 97 O2 Delivery Nasal Cannula Nasal Cannula Nasal Cannula Nasal Cannula O2 Flow Rate 3.0 3.0 3.0 3.0 09/10/18 09/10/18 13:02 16:16 Temp 97.7 97.7 Pulse 81 Resp 22 B/P (MAP) 155/85 (108) Pulse Ox 94 93 O2 Delivery Nasal Cannula Nasal Cannula O2 Flow Rate 3.0 3.0 Intake and Output 09/09/18 09/09/18 09/10/18 14:59 22:59 06:59 Intake Total 300 ml 1355 ml 353 ml Output Total 35 ml 15 ml 90 ml Balance 265 ml 1340 ml 263 ml JAVON COSME MD Sep 10, 2018 16:47
[2018-09-10] MEDS: DARBEPOETIN ALFA 100 MCG/0.5 ML DISP.SYRIN. SQ SCH (21:35)
[2018-09-11] MEDS: PIPERACILLIN/TAZOBACTAM 2.25 GM in IV NORMAL SALINE 50ML 50 ML IV SCH ×2 (01:05→05:19)
[2018-09-11 03:36] VITALS: BP 149/83
[2018-09-11 04:14] LABS: BASO # 0.1 x10^3/uL (0.0-0.2); BASO % 1 % (0-3); EOS # 0.2 x10^3/uL (0.0-0.7); EOS % 2 % (0-3); HEMATOCRIT 22.2 % (39.0-53.0); HEMOGLOBIN 7.6 g/dL (13.0-17.5); LYMPH # 2.7 x10^3/uL (1.0-4.8); LYMPH % 31 % (24-48); MEAN CORPUSCULAR HEMOGLOBIN 30 pg (25-35); MEAN CORPUSCULAR HGB CONC 34 g/dL (31-37); MEAN CORPUSCULAR VOLUME 87 fL (79-100); MONO # 1.4 x10^3/uL (0.0-1.1); MONO % 16 % (0-9); NEUT # 4.4 x10^3uL (1.8-7.7); NEUT % 50 % (31-73); PLATELET COUNT 379 x10^3/uL (140-400); RED BLOOD COUNT 2.56 x10^6/uL (4.30-5.70); RED CELL DISTRIBUTION WIDTH 19.4 % (11.5-14.5); WHITE BLOOD COUNT 8.8 x10^3/uL (4.0-11.0)
[2018-09-11 04:40] LABS: ALBUMIN 2.1 g/dL (3.4-5.0); ALBUMIN/GLOBULIN RATIO 0.4 (1.0-1.7); CREATININE 7.3 mg/dL (0.7-1.3); GFR 7.9; POTASSIUM 4.1 mmol/L (3.5-5.1); TOTAL BILIRUBIN 0.8 mg/dL (0.2-1.0); TOTAL PROTEIN 7.1 g/dL (6.4-8.2)
[2018-09-11 07:10] VITALS: BP 158/87
[2018-09-11] MEDS: IPRATRPIUM/ALBUTEROL 0.5/2.5MG 3 ML NEBU. NEB SCH ×4 (07:58→20:17)
--- NOTE | 2018-09-11 08:43 | PDOC ---
Infectious Disease Note Subjective Subjective Doing well. Occ cough. No F/C/S/DIAL/SOA/N still loose stool Tube feedings up to 65 ml/hr via NGT Tolerated HD cath placement Vital Sign Vital Signs Vital Signs Date Time Temp Pulse Resp B/P (MAP) Pulse Ox O2 Delivery O2 Flow Rate FiO2 09/11/18 08:00 95 Nasal Cannula 2.0 09/11/18 07:10 97.5 81 20 158/87 (110) 97.5 Physical Exam PHYSICAL EXAM GENERAL: Awake, calm, NAD - looks well HEENT: Pupils equal, NGT, oral cavity dry NECK: Supple. LUNGS: Clear anteriorly HEART: S1 and S2. regular ABDOMEN: + distention but less, soft, nontender, BS active, rectal tube out : Waters in place EXTREMITIES: No gross edema, no cyanosis. SKIN: Warm, rash UEs fading NEUROLOGIC: Awake, and alert Responds appropriately to questions and follows commands PIV. R neck HD cath Labs Lab Laboratory Tests Test 09/11/18 03:25 White Blood Count 8.8 x10^3/uL (4.0-11.0) Red Blood Count 2.56 x10^6/uL (4.30-5.70) Hemoglobin 7.6 g/dL (13.0-17.5) Hematocrit 22.2 % (39.0-53.0) Mean Corpuscular Volume 87 fL (79-100) Mean Corpuscular Hemoglobin 30 pg (25-35) Mean Corpuscular Hemoglobin Concent 34 g/dL (31-37) Red Cell Distribution Width 19.4 % (11.5-14.5) Platelet Count 379 x10^3/uL (140-400) Neutrophils (%) (Auto) 50 % (31-73) Lymphocytes (%) (Auto) 31 % (24-48) Monocytes (%) (Auto) 16 % (0-9) Eosinophils (%) (Auto) 2 % (0-3) Basophils (%) (Auto) 1 % (0-3) Neutrophils # (Auto) 4.4 x10^3uL (1.8-7.7) Lymphocytes # (Auto) 2.7 x10^3/uL (1.0-4.8) Monocytes # (Auto) 1.4 x10^3/uL (0.0-1.1) Eosinophils # (Auto) 0.2 x10^3/uL (0.0-0.7) Basophils # (Auto) 0.1 x10^3/uL (0.0-0.2) Sodium Level 137 mmol/L (136-145) Potassium Level 4.1 mmol/L (3.5-5.1) Chloride Level 96 mmol/L (98-107) Carbon Dioxide Level 26 mmol/L (21-32) Anion Gap 15 (6-14) Blood Urea Nitrogen 65 mg/dL (8-26) Creatinine 7.3 mg/dL (0.7-1.3) Estimated GFR (Cockcroft-Gault) 7.9 BUN/Creatinine Ratio 9 (6-20) Glucose Level 113 mg/dL (70-99) Calcium Level 8.0 mg/dL (8.5-10.1) Total Bilirubin 0.8 mg/dL (0.2-1.0) Aspartate Amino Transf (AST/SGOT) 45 U/L (15-37) Alanine Aminotransferase (ALT/SGPT) 43 U/L (16-63) Alkaline Phosphatase 104 U/L (46-116) Total Protein 7.1 g/dL (6.4-8.2) Albumin 2.1 g/dL (3.4-5.0) Albumin/Globulin Ratio 0.4 (1.0-1.7) Micro Microbiology 09/08/18 Blood Culture - Preliminary, Resulted NO GROWTH AFTER 2 DAYS 08/29/18 CSF Gram Stain - Final, Complete 08/27/18 Stool Culture - Final, Complete 08/27/18 Stool Culture Result 1 (LOTUS) - Final, Complete 08/27/18 Campylobacter Antigen Assay - Final, Complete 08/27/18 Campylobactor Result 1 - Final, Complete 08/27/18 Shiga Toxin Test - Final, Complete 09/05/18 - Final, Complete 09/05/18 - Final, Complete 09/05/18 - Final, Complete 09/05/18 Gram Stain Evaluation - Final, Complete 09/05/18 Sputum Culture - Final, Complete 09/05/18 Sputum Result 1 - Final, Complete 09/04/18 Urine Culture - Final, Complete 09/04/18 Urine Culture Result 1 (LOTUS) - Final, Complete Objective Assessment Fungemia from 09/04 1 bottles. ID/LOTUS pending; repeat BC 09/08 neg so far -Lines have been removed Recurrent fever, 09/04, better Diarrhea, C. diff PCR neg Leukocytosis - ? 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 MRI neg -CSF pleocytosis, cultures and serologies negative - HIV neg -[place] IgG +, IgM neg, old exposure -HSV PCR neg -Arboviral panel not available -Enteroviral pcr not available RADHA (Recent Bactrim/ibuprofen), on HD Anemia - s/p PRBCs 09/10 Hemochromatosis, followed by [facility] Plan Plan of Care S/p HD cath 09/10 Added Parvo D/c'd Zyvox (09/05) Discont Zosyn (09/01 - 09/11) Cont micafungin Await GI f/u Repeat BC 09/08 neg so far Monitor labs/temp Supportive care D/w /uncle D/w nursing LICO GRACE MD Sep 11, 2018 08:43
--- NOTE | 2018-09-11 08:45 | PDOC ---
PULMONARY PROGRESS NOTES Subjective intubated 08/31, EXTUBATED 09/08 FOLLOW COMMANDS Vitals Vital Signs Date Time Temp Pulse Resp B/P (MAP) Pulse Ox O2 Delivery O2 Flow Rate FiO2 09/11/18 08:00 95 Nasal Cannula 2.0 09/11/18 07:10 97.5 81 20 158/87 (110) 97.5 General: Alert, No acute distress Lungs: Clear Cardiovascular: S1, S2 Abdomen: Soft, Non-tender, Other (no mass) Extremities: Other (1+edema) Skin: Warm Labs Laboratory Tests Test 09/10/18 04:45 09/11/18 03:25 White Blood Count 11.1 x10^3/uL (4.0-11.0) 8.8 x10^3/uL (4.0-11.0) Red Blood Count 2.37 x10^6/uL (4.30-5.70) 2.56 x10^6/uL (4.30-5.70) Hemoglobin 7.0 g/dL (13.0-17.5) 7.6 g/dL (13.0-17.5) Hematocrit 20.3 % (39.0-53.0) 22.2 % (39.0-53.0) Mean Corpuscular Volume 86 fL (79-100) 87 fL (79-100) Mean Corpuscular Hemoglobin 29 pg (25-35) 30 pg (25-35) Mean Corpuscular Hemoglobin Concent 34 g/dL (31-37) 34 g/dL (31-37) Red Cell Distribution Width 18.4 % (11.5-14.5) 19.4 % (11.5-14.5) Platelet Count 359 x10^3/uL (140-400) 379 x10^3/uL (140-400) Neutrophils (%) (Auto) 58 % (31-73) 50 % (31-73) Lymphocytes (%) (Auto) 28 % (24-48) 31 % (24-48) Monocytes (%) (Auto) 12 % (0-9) 16 % (0-9) Eosinophils (%) (Auto) 1 % (0-3) 2 % (0-3) Basophils (%) (Auto) 1 % (0-3) 1 % (0-3) Neutrophils # (Auto) 6.4 x10^3uL (1.8-7.7) 4.4 x10^3uL (1.8-7.7) Lymphocytes # (Auto) 3.1 x10^3/uL (1.0-4.8) 2.7 x10^3/uL (1.0-4.8) Monocytes # (Auto) 1.3 x10^3/uL (0.0-1.1) 1.4 x10^3/uL (0.0-1.1) Eosinophils # (Auto) 0.1 x10^3/uL (0.0-0.7) 0.2 x10^3/uL (0.0-0.7) Basophils # (Auto) 0.1 x10^3/uL (0.0-0.2) 0.1 x10^3/uL (0.0-0.2) Sodium Level 134 mmol/L (136-145) 137 mmol/L (136-145) Potassium Level 4.7 mmol/L (3.5-5.1) 4.1 mmol/L (3.5-5.1) Chloride Level 92 mmol/L (98-107) 96 mmol/L (98-107) Carbon Dioxide Level 21 mmol/L (21-32) 26 mmol/L (21-32) Anion Gap 21 (6-14) 15 (6-14) Blood Urea Nitrogen 117 mg/dL (8-26) 65 mg/dL (8-26) Creatinine 10.6 mg/dL (0.7-1.3) 7.3 mg/dL (0.7-1.3) Estimated GFR (Cockcroft-Gault) 5.1 7.9 BUN/Creatinine Ratio 11 (6-20) 9 (6-20) Glucose Level 107 mg/dL (70-99) 113 mg/dL (70-99) Calcium Level 7.1 mg/dL (8.5-10.1) 8.0 mg/dL (8.5-10.1) Total Bilirubin 0.9 mg/dL (0.2-1.0) 0.8 mg/dL (0.2-1.0) Aspartate Amino Transf (AST/SGOT) 39 U/L (15-37) 45 U/L (15-37) Alanine Aminotransferase (ALT/SGPT) 36 U/L (16-63) 43 U/L (16-63) Alkaline Phosphatase 113 U/L (46-116) 104 U/L (46-116) Total Protein 6.9 g/dL (6.4-8.2) 7.1 g/dL (6.4-8.2) Albumin 2.1 g/dL (3.4-5.0) 2.1 g/dL (3.4-5.0) Albumin/Globulin Ratio 0.4 (1.0-1.7) 0.4 (1.0-1.7) Laboratory Tests Test 09/11/18 03:25 White Blood Count 8.8 x10^3/uL (4.0-11.0) Red Blood Count 2.56 x10^6/uL (4.30-5.70) Hemoglobin 7.6 g/dL (13.0-17.5) Hematocrit 22.2 % (39.0-53.0) Mean Corpuscular Volume 87 fL (79-100) Mean Corpuscular Hemoglobin 30 pg (25-35) Mean Corpuscular Hemoglobin Concent 34 g/dL (31-37) Red Cell Distribution Width 19.4 % (11.5-14.5) Platelet Count 379 x10^3/uL (140-400) Neutrophils (%) (Auto) 50 % (31-73) Lymphocytes (%) (Auto) 31 % (24-48) Monocytes (%) (Auto) 16 % (0-9) Eosinophils (%) (Auto) 2 % (0-3) Basophils (%) (Auto) 1 % (0-3) Neutrophils # (Auto) 4.4 x10^3uL (1.8-7.7) Lymphocytes # (Auto) 2.7 x10^3/uL (1.0-4.8) Monocytes # (Auto) 1.4 x10^3/uL (0.0-1.1) Eosinophils # (Auto) 0.2 x10^3/uL (0.0-0.7) Basophils # (Auto) 0.1 x10^3/uL (0.0-0.2) Sodium Level 137 mmol/L (136-145) Potassium Level 4.1 mmol/L (3.5-5.1) Chloride Level 96 mmol/L (98-107) Carbon Dioxide Level 26 mmol/L (21-32) Anion Gap 15 (6-14) Blood Urea Nitrogen 65 mg/dL (8-26) Creatinine 7.3 mg/dL (0.7-1.3) Estimated GFR (Cockcroft-Gault) 7.9 BUN/Creatinine Ratio 9 (6-20) Glucose Level 113 mg/dL (70-99) Calcium Level 8.0 mg/dL (8.5-10.1) Total Bilirubin 0.8 mg/dL (0.2-1.0) Aspartate Amino Transf (AST/SGOT) 45 U/L (15-37) Alanine Aminotransferase (ALT/SGPT) 43 U/L (16-63) Alkaline Phosphatase 104 U/L (46-116) Total Protein 7.1 g/dL (6.4-8.2) Albumin 2.1 g/dL (3.4-5.0) Albumin/Globulin Ratio 0.4 (1.0-1.7) Medications Active Scripts Medications Dose Route/Sig Max Daily Dose Days Date Category Prednisone 20 Mg Tablet 1 Tab PO DAILY 08/26/18 Reported Hydrochlorothiazide Tablet (Hydrochlorothiazide) 12.5 Mg Tablet 12.5 Mg PO DAILY 08/26/18 Reported Shilpi Allergy (Fexofenadine Hcl) 180 Mg Tablet 1 Tab PO DAILY 08/26/18 Reported Potassium Chloride 20 Meq Tablet.er 20 Meq PO DAILY 08/24/18 Rx Orphenadrine Citrate 100 Mg Tablet.er 100 Mg PO Q12HR 02/03/16 Rx Anaprox Ds (Naproxen Sodium) 550 Mg Tablet 550 Mg PO Q12HR 02/03/16 Rx Impression . IMPRESSION: 1. Acute hypoxemic respiratory failure, multifactorial due to encephalopathy from suspected [employer] infection/ acute lung injury from recent infection. EXTUBATED 09/08 2. 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 Fever. RESOLVED 4. Lactic acidosis. 5. Acute renal failure. 6. Acute hepatic injury. 7. Thrombocytopenia, improving. 8. Hemochromatosis. 9. ACUTE TOXIC MET ENCEPH POA 10 DYSPHAGIA 11.ENCEPHALITIS 12. FUNGEMIA 13. ANEMIA Plan . PT SEEN WHILE PERFORMING THERAPY IMPROVING EVERY DAY PT OT SPEECH EXTUBATED 09/08 ANTIBX PER ID HD fu sputum cx , yeast, likely contaminant D/W RN, ANIT-FUNGAL PER ID D/W ANISH DENNIS MD Sep 11, 2018 08:45
--- NOTE | 2018-09-11 09:13 | PDOC ---
Subjective: Subjective: wondering why his swallow was checked after he might have been given sedation yesterday. Objective: Objective: 2 stools charted. Vital Signs: Vital Signs Date Time Temp Pulse Resp B/P (MAP) Pulse Ox O2 Delivery O2 Flow Rate FiO2 09/11/18 08:00 95 Nasal Cannula 2.0 09/11/18 07:10 97.5 81 20 158/87 (110) 97.5 Labs: Laboratory Tests Test 09/11/18 03:25 White Blood Count 8.8 x10^3/uL Red Blood Count 2.56 x10^6/uL Hemoglobin 7.6 g/dL Hematocrit 22.2 % Mean Corpuscular Volume 87 fL Mean Corpuscular Hemoglobin 30 pg Mean Corpuscular Hemoglobin Concent 34 g/dL Red Cell Distribution Width 19.4 % Platelet Count 379 x10^3/uL Neutrophils (%) (Auto) 50 % Lymphocytes (%) (Auto) 31 % Monocytes (%) (Auto) 16 % Eosinophils (%) (Auto) 2 % Basophils (%) (Auto) 1 % Neutrophils # (Auto) 4.4 x10^3uL Lymphocytes # (Auto) 2.7 x10^3/uL Monocytes # (Auto) 1.4 x10^3/uL Eosinophils # (Auto) 0.2 x10^3/uL Basophils # (Auto) 0.1 x10^3/uL Sodium Level 137 mmol/L Potassium Level 4.1 mmol/L Chloride Level 96 mmol/L Carbon Dioxide Level 26 mmol/L Anion Gap 15 Blood Urea Nitrogen 65 mg/dL Creatinine 7.3 mg/dL Estimated GFR (Cockcroft-Gault) 7.9 BUN/Creatinine Ratio 9 Glucose Level 113 mg/dL Calcium Level 8.0 mg/dL Total Bilirubin 0.8 mg/dL Aspartate Amino Transf (AST/SGOT) 45 U/L Alanine Aminotransferase (ALT/SGPT) 43 U/L Alkaline Phosphatase 104 U/L Total Protein 7.1 g/dL Albumin 2.1 g/dL Albumin/Globulin Ratio 0.4 Imaging: CXR 09/10 IMPRESSION: 1. Worsening perihilar infiltrates and central vascular congestion. 2. New right IJ temporary hemodialysis catheter suitably positioned for use. Bedside Swallow Evaluation completed. Please refer to full report for additional information. Impressions: Mild oropharyngeal dysphagia w/ significant risk of aspiration currently from pt's decreased and variable awareness, transit, manipulation and swallow initiation of boluses which varied greatly from trial to trial. Hyolaryngeal excursion minimally decreased via palp and no overt s/s aspiration were noted during evaluation. Anticipate w/ pt's improved alertness/awareness to boluses pt will be able to start a PO diet. Recommendations: NPO. Oral care. ST f/u for dysphagia and assessment of swallow safety to initiate a diet. PE: GEN: NAD LUNGS: NC HEART: RRR ABD: soft, quiet BS, maybe some distention, non-tender NEURO/PSYCH: waves hello A/P: MOSF, fungemia Encephalopathy Dysphagia post extubation Anemia - stable -- Continue tube feeds, await [employer] follow-up. ELVIA NOE Sep 11, 2018 09:13
[2018-09-11] MEDS: MICAFUNGIN 100 MG in IV DEXTROSE 5% 100ML 100 ML IV SCH (09:23)
--- NOTE | 2018-09-11 09:48 | PDOC ---
PROGRESS NOTES Assessment Problems Medical Problems: (1) Acute renal failure Status: Acute Metabolic encephalopathy, much better. 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 Hold on repeating lumbar puncture, given improvement Discussed with Subjective He denies pain Objective Vital Signs Date Time Temp Pulse Resp B/P (MAP) Pulse Ox O2 Delivery O2 Flow Rate FiO2 09/11/18 08:00 95 Nasal Cannula 2.0 09/11/18 07:10 97.5 81 20 158/87 (110) 97.5 Intake and Output 09/11/18 06:59 Intake Total 450 ml Output Total 76 ml Balance 374 ml Intake Oral 0 ml Tube Feeding 450 ml Output Urine Total 76 ml # Bowel Movements 2 PHYSICAL EXAM Alert, knows name of hospital, not date, speech fluent, follows commands PERRL. EOMI. CN: no focal findings. Muscle tone: normal. Muscle strength: 4/5 DTR: 1+ Plantar reflex: silent Gait: not examined in bed. Sensory exam: no abnormal findings. No cerebellar signs elicited. Review of Relevant I have reviewed the following items gera (where applicable) has been applied. Labs Laboratory Tests Test 09/10/18 04:45 09/11/18 03:25 White Blood Count 11.1 x10^3/uL (4.0-11.0) 8.8 x10^3/uL (4.0-11.0) Red Blood Count 2.37 x10^6/uL (4.30-5.70) 2.56 x10^6/uL (4.30-5.70) Hemoglobin 7.0 g/dL (13.0-17.5) 7.6 g/dL (13.0-17.5) Hematocrit 20.3 % (39.0-53.0) 22.2 % (39.0-53.0) Mean Corpuscular Volume 86 fL (79-100) 87 fL (79-100) Mean Corpuscular Hemoglobin 29 pg (25-35) 30 pg (25-35) Mean Corpuscular Hemoglobin Concent 34 g/dL (31-37) 34 g/dL (31-37) Red Cell Distribution Width 18.4 % (11.5-14.5) 19.4 % (11.5-14.5) Platelet Count 359 x10^3/uL (140-400) 379 x10^3/uL (140-400) Neutrophils (%) (Auto) 58 % (31-73) 50 % (31-73) Lymphocytes (%) (Auto) 28 % (24-48) 31 % (24-48) Monocytes (%) (Auto) 12 % (0-9) 16 % (0-9) Eosinophils (%) (Auto) 1 % (0-3) 2 % (0-3) Basophils (%) (Auto) 1 % (0-3) 1 % (0-3) Neutrophils # (Auto) 6.4 x10^3uL (1.8-7.7) 4.4 x10^3uL (1.8-7.7) Lymphocytes # (Auto) 3.1 x10^3/uL (1.0-4.8) 2.7 x10^3/uL (1.0-4.8) Monocytes # (Auto) 1.3 x10^3/uL (0.0-1.1) 1.4 x10^3/uL (0.0-1.1) Eosinophils # (Auto) 0.1 x10^3/uL (0.0-0.7) 0.2 x10^3/uL (0.0-0.7) Basophils # (Auto) 0.1 x10^3/uL (0.0-0.2) 0.1 x10^3/uL (0.0-0.2) Sodium Level 134 mmol/L (136-145) 137 mmol/L (136-145) Potassium Level 4.7 mmol/L (3.5-5.1) 4.1 mmol/L (3.5-5.1) Chloride Level 92 mmol/L (98-107) 96 mmol/L (98-107) Carbon Dioxide Level 21 mmol/L (21-32) 26 mmol/L (21-32) Anion Gap 21 (6-14) 15 (6-14) Blood Urea Nitrogen 117 mg/dL (8-26) 65 mg/dL (8-26) Creatinine 10.6 mg/dL (0.7-1.3) 7.3 mg/dL (0.7-1.3) Estimated GFR (Cockcroft-Gault) 5.1 7.9 BUN/Creatinine Ratio 11 (6-20) 9 (6-20) Glucose Level 107 mg/dL (70-99) 113 mg/dL (70-99) Calcium Level 7.1 mg/dL (8.5-10.1) 8.0 mg/dL (8.5-10.1) Total Bilirubin 0.9 mg/dL (0.2-1.0) 0.8 mg/dL (0.2-1.0) Aspartate Amino Transf (AST/SGOT) 39 U/L (15-37) 45 U/L (15-37) Alanine Aminotransferase (ALT/SGPT) 36 U/L (16-63) 43 U/L (16-63) Alkaline Phosphatase 113 U/L (46-116) 104 U/L (46-116) Total Protein 6.9 g/dL (6.4-8.2) 7.1 g/dL (6.4-8.2) Albumin 2.1 g/dL (3.4-5.0) 2.1 g/dL (3.4-5.0) Albumin/Globulin Ratio 0.4 (1.0-1.7) 0.4 (1.0-1.7) Laboratory Tests Test 09/11/18 03:25 White Blood Count 8.8 x10^3/uL (4.0-11.0) Red Blood Count 2.56 x10^6/uL (4.30-5.70) Hemoglobin 7.6 g/dL (13.0-17.5) Hematocrit 22.2 % (39.0-53.0) Mean Corpuscular Volume 87 fL (79-100) Mean Corpuscular Hemoglobin 30 pg (25-35) Mean Corpuscular Hemoglobin Concent 34 g/dL (31-37) Red Cell Distribution Width 19.4 % (11.5-14.5) Platelet Count 379 x10^3/uL (140-400) Neutrophils (%) (Auto) 50 % (31-73) Lymphocytes (%) (Auto) 31 % (24-48) Monocytes (%) (Auto) 16 % (0-9) Eosinophils (%) (Auto) 2 % (0-3) Basophils (%) (Auto) 1 % (0-3) Neutrophils # (Auto) 4.4 x10^3uL (1.8-7.7) Lymphocytes # (Auto) 2.7 x10^3/uL (1.0-4.8) Monocytes # (Auto) 1.4 x10^3/uL (0.0-1.1) Eosinophils # (Auto) 0.2 x10^3/uL (0.0-0.7) Basophils # (Auto) 0.1 x10^3/uL (0.0-0.2) Sodium Level 137 mmol/L (136-145) Potassium Level 4.1 mmol/L (3.5-5.1) Chloride Level 96 mmol/L (98-107) Carbon Dioxide Level 26 mmol/L (21-32) Anion Gap 15 (6-14) Blood Urea Nitrogen 65 mg/dL (8-26) Creatinine 7.3 mg/dL (0.7-1.3) Estimated GFR (Cockcroft-Gault) 7.9 BUN/Creatinine Ratio 9 (6-20) Glucose Level 113 mg/dL (70-99) Calcium Level 8.0 mg/dL (8.5-10.1) Total Bilirubin 0.8 mg/dL (0.2-1.0) Aspartate Amino Transf (AST/SGOT) 45 U/L (15-37) Alanine Aminotransferase (ALT/SGPT) 43 U/L (16-63) Alkaline Phosphatase 104 U/L (46-116) Total Protein 7.1 g/dL (6.4-8.2) Albumin 2.1 g/dL (3.4-5.0) Albumin/Globulin Ratio 0.4 (1.0-1.7) Microbiology 09/08/18 Blood Culture - Preliminary, Resulted NO GROWTH AFTER 3 DAYS 08/29/18 CSF Gram Stain - Final, Complete 08/27/18 Stool Culture - Final, Complete 08/27/18 Stool Culture Result 1 (LOTUS) - Final, Complete 08/27/18 Campylobacter Antigen Assay - Final, Complete 08/27/18 Campylobactor Result 1 - Final, Complete 08/27/18 Shiga Toxin Test - Final, Complete 09/05/18 - Final, Complete 09/05/18 - Final, Complete 09/05/18 - Final, Complete 09/05/18 Gram Stain Evaluation - Final, Complete 09/05/18 Sputum Culture - Final, Complete 09/05/18 Sputum Result 1 - Final, Complete 09/04/18 Urine Culture - Final, Complete 09/04/18 Urine Culture Result 1 (LOTUS) - Final, Complete Medications Current Medications Sodium Chloride 1,000 ml @ 1,000 mls/hr 1X ONCE IV Last administered on 08/25/18at 20:38; Start 08/25/18 at 19:15; Stop 08/25/18 at 20:14; Status DC Ibuprofen (Motrin) 600 mg 1X ONCE PO Last administered on 08/25/18at 20:38; Start 08/25/18 at 19:45; Stop 08/25/18 at 19:49; Status DC Sodium Chloride 1,000 ml @ 1,000 mls/hr 1X ONCE IV Last administered on 08/25/18at 20:30; Start 08/25/18 at 20:30; Stop 08/25/18 at 21:29; Status DC Ceftriaxone Sodium (Rocephin) 1 gm 1X ONCE IVP Last administered on 08/25/18at 20:36; Start 08/25/18 at 20:30; Stop 08/25/18 at 20:31; Status DC Vancomycin HCl 2 gm/Sodium Chloride 500 ml @ 250 mls/hr 1X ONCE IV Last administered on 08/25/18at 23:10; Start 08/25/18 at 21:30; Stop 08/25/18 at 23:29; Status DC Sodium Chloride 1,000 ml @ 1,000 mls/hr 1X ONCE IV Last administered on 08/25/18at 23:51; Start 08/25/18 at 21:00; Stop 08/25/18 at 21:59; Status DC Piperacillin Sod/ Tazobactam Sod 4.5 gm/Sodium Chloride 100 ml @ 200 mls/hr 1X ONCE IV ; Start 08/25/18 at 21:15; Stop 08/25/18 at 21:44; Status DC Aztreonam (Azactam) 2 gm 1X ONCE IVP Last administered on 08/25/18at 21:15; Start 08/25/18 at 21:15; Stop 08/25/18 at 21:16; Status DC Magnesium Sulfate 50 ml @ 25 mls/hr 1X ONCE IV Last administered on 08/25/18at 23:51; Start 08/25/18 at 21:15; Stop 08/25/18 at 23:14; Status DC Ondansetron HCl (Zofran) 4 mg PRN Q8HRS PRN IV NAUSEA/VOMITING; Start 08/25/18 at 21:15; Stop 08/26/18 at 21:14; Status DC Acetaminophen (Tylenol) 650 mg PRN Q4HRS PRN PO FEVER; Start 08/25/18 at 21:15; Stop 08/26/18 at 21:14; Status DC Sodium Chloride 1,000 ml @ 125 mls/hr 1X ONCE IV Last administered on 08/25/18 at 23:09; Start 08/25/18 at 21:15; Stop 08/26/18 at 05:14; Status DC Daptomycin 610 mg/ Sodium Chloride 50 ml @ 100 mls/hr QODAY IV Last administered on 08/27/18at 08:59; Start 08/27/18 at 09:00; Stop 08/28/18 at 15:40; Status DC Meropenem 500 mg/ Sodium Chloride 50 ml @ 100 mls/hr 1X ONCE IV Last administered on 08/25/18at 22:12; Start 08/25/18 at 22:00; Stop 08/25/18 at 22:2 9; Status DC Doxycycline Hyclate 100 mg/ Dextrose 100 ml @ 50 mls/hr Q12HR IV Last administered on 09/03/18at 22:11; Start 08/26/18 at 09:00; Stop 09/04/18 at 08:11; Status DC Meropenem 500 mg/ Sodium Chloride 50 ml @ 100 mls/hr DAILY IV Last administ ered on 08/29/18at 10:13; Start 08/26/18 at 09:00; Stop 08/30/18 at 08:17; Status DC Sodium Chloride (Normal Saline Flush) 10 ml QSHIFT PRN IV AFTER MEDS AND BLOOD DRAWS; Start 08/26/18 at 09:15 Norepinephrine Bitartrate 250 ml @ 0 mls/hr CONT PRN IV PER PROTOCOL Last administered on 08/27/18at 10:21; Start 08/26/18 at 09:15; Stop 08/30/18 at 17:20; Status DC Famotidine (Pepcid) 20 mg DAILY PO Last administered on 08/27/18at 08:14; Start 08/26/18 at 12:00; Stop 08/27/18 at 14:36; Status DC Sodium Chloride 1,000 ml @ 1,000 mls/hr Q1H PRN IV hypotension; Start 08/26/18 at 11:51; Stop 08/26/18 at 17:50; Status DC Sodium Chloride (Normal Saline Flush) 10 ml 1X PRN PRN IV AP catheter pack; Start 08/26/18 at 12:00; Stop 08/27/18 at 11:59; Status DC Sodium Chloride (Normal Saline Flush) 10 ml 1X PRN PRN IV IMPORT EXPORT MANAGER catheter pack; Start 08/26/18 at 12:00; Stop 08/27/18 at 11:59; Status DC Sodium Chloride 1,000 ml @ 400 mls/hr Q2H30M PRN IV PATENCY; Start 08/26/18 at 11:51; Stop 08/26/18 at 23:50; Status DC Info (PHARMACY MONITORING -- do not chart) 1 each PRN DAILY PRN MC SEE COMMENTS; Start 08/26/18 at 12:00; Status UNV Info (PHARMACY MONITORING -- do not chart) 1 each PRN DAILY PRN MC SEE COMMENTS; Start 08/26/18 at 12:00; Stop 09/01/18 at 10:59; Status DC Lidocaine/Sodium Bicarbonate (Buffered Lidocaine 1%) 4 ml 1X ONCE INJ Last administered on 08/26/18at 12:45; Start 08/26/18 at 12:45; Stop 08/26/18 at 12:48; Status DC Heparin Sodium (Porcine) (Heparin Sodium) 2,500 unit 1X ONCE INT CAT Last administered on 08/26/18at 12:45; Start 08/26/18 at 12:45; Stop 08/26/18 at 12:48; Status DC Lidocaine/Sodium Bicarbonate (Buffered Lidocaine 1%) 3 ml STK-MED ONCE .ROUTE ; Start 08/26/18 at 12:49; Stop 08/26/18 at 12:50; Status DC Heparin Sodium (Porcine) (Heparin Sodium) 10,000 unit STK-MED ONCE .ROUTE ; Start 08/26/18 at 12:49; Stop 08/26/18 at 12:50; Status DC Lactobacillus Rhamnosus (Culturelle) 1 cap BID PO Last administered on 09/08/18at 09:34; Start 08/26/18 at 21:00; Stop 09/08/18 at 10:55; Status DC Acetaminophen (Tylenol) 325 mg STK-MED ONCE PO ; Start 08/27/18 at 00:43; Stop 08/27/18 at 00:44; Status DC Sodium Chloride 1,000 ml @ 1,000 mls/hr 1X ONCE IV Last administered on 08/27/18at 11:05; Start 08/27/18 at 10:30; Stop 08/27/18 at 11:29; Status DC Sodium Chloride 1,000 ml @ 1,000 mls/hr Q1H PRN IV hypotension; Start 08/27/18 at 11:28; Stop 08/27/18 at 17:27; Status DC Albumin Human 200 ml @ 200 mls/hr 1X PRN PRN IV Hypotension; Start 08/27/18 at 11:30; Stop 08/27/18 at 17:29; Status DC Sodium Chloride (Normal Saline Flush) 10 ml 1X PRN PRN IV AP catheter pack; Start 08/27/18 at 11:30; Stop 08/28/18 at 11:29; Status DC Sodium Chloride (Normal Saline Flush) 10 ml 1X PRN PRN IV IMPORT EXPORT MANAGER catheter pack; Start 08/27/18 at 11:30; Stop 08/28/18 at 11:29; Status DC Sodium Chloride 1,000 ml @ 400 mls/hr Q2H30M PRN IV PATENCY; Start 08/27/18 at 11:28; Stop 08/27/18 at 23:27; Status DC Info (PHARMACY MONITORING -- do not chart) 1 each PRN DAILY PRN MC SEE COMMENTS; Start 08/27/18 at 11:30; Status UNV Info (PHARMACY MONITORING -- do not chart) 1 each PRN DAILY PRN MC SEE COMMENTS; Start 08/27/18 at 11:30; Status UNV Famotidine (Pepcid) 20 mg Q48H PO ; Start 08/29/18 at 09:00; Stop 08/29/18 at 11:29; Status DC Acetaminophen (Tylenol) 650 mg PRN Q6HRS PRN PO mild pain/fever; Start 08/27/18 at 21:15 Acetaminophen (Tylenol Supp) 650 mg PRN Q6HRS PRN [place] MILD PAIN / TEMP Last administered on 09/02/18at 01:18; Start 08/27/18 at 21:15 Fentanyl Citrate (Fentanyl 2ml Vial) 25 mcg 1X ONCE IV Last administered on at 08:54; Start 08/28/18 at 08:45; Stop 08/28/18 at 08:47; Status DC Lidocaine/Sodium Bicarbonate (Buffered Lidocaine 1%) 3 ml STK-MED ONCE .ROUTE ; Start 08/28/18 at 09:55; Stop 08/28/18 at 09:56; Status DC Lidocaine HCl (Glydo (Lidocaine) Jelly) 1 meng 1X STAT MM Last administered on 08/28/18at 10:16; Start 08/28/18 at 10:16; Stop 08/28/18 at 10:19; Status DC Benzocaine (Hurricaine One) 1 spray 1X STAT MM Last administered on 08/28/18at 10:16; Start 08/28/18 at 10:16; Stop 08/28/18 at 10:19; Status DC Lidocaine/Sodium Bicarbonate (Buffered Lidocaine 1%) 3 ml 1X ONCE INJ ; Start 08/28/18 at 10:30; Stop 08/28/18 at 10:31; Status DC Haloperidol Lactate (Haldol Inj) 5 mg PRN Q6HRS PRN IVP AGITATION Last administered on 09/06/18at 05:53; Start 08/28/18 at 12:00 Fentanyl Citrate (Fentanyl 2ml Vial) 50 mcg PRN Q4HRS PRN IV PAIN Last administered on 08/28/18at 21:44; Start 08/28/18 at 15:30; Stop 09/05/18 at 02:11; Status DC Sodium Chloride 1,000 ml @ 1,000 mls/hr Q1H PRN IV hypotension; Start 08/28/18 at 14:00; Stop 08/28/18 at 19:59; Status DC Albumin Human 200 ml @ 200 mls/hr 1X PRN PRN IV Hypotension Last administered on 08/28/18at 14:50; Start 08/28/18 at 14:00; Stop 09/03/18 at 18:17; Status DC Sodium Chloride 1,000 ml @ 400 mls/hr Q2H30M PRN IV PATENCY; Start 08/28/18 at 14:00; Stop 08/29/18 at 01:59; Status DC Info (PHARMACY MONITORING -- do not chart) 1 each PRN DAILY PRN MC SEE COMMENTS; Start 08/28/18 at 15:30; Status UNV Info (PHARMACY MONITORING -- do not chart) 1 each PRN DAILY PRN MC SEE COMMENTS; Start 08/28/18 at 15:30; Status UNV Daptomycin 610 mg/ Sodium Chloride 50 ml @ 100 mls/hr Q48H IV ; Start 08/30/18 at 16:00; Stop 08/30/18 at 16:00; Status DC Famotidine (Pepcid Vial) 20 mg QHS IVP Last administered on 08/31/18at 20:59; Start 08/29/18 at 21:00; Stop 09/01/18 at 11:00; Status DC Acyclovir Sodium 340 mg/Dextrose 106.8 ml @ 106.8 mls/ hr Q12HR IV Last administered on 09/01/18at 11:05; Start 08/30/18 at 09:00; Stop 09/01/18 at 13:37; Status DC Sodium Chloride 1,000 ml @ 1,000 mls/hr Q1H PRN IV hypotension; Start 08/30/18 at 11:02; Stop 08/30/18 at 17:01; Status DC Sodium Chloride 1,000 ml @ 400 mls/hr Q2H30M PRN IV PATENCY; Start 08/30/18 at 11:02; Stop 08/30/18 at 23:01; Status DC Info (PHARMACY MONITORING -- do not chart) 1 each PRN DAILY PRN MC SEE COMMENTS; Start 08/30/18 at 11:15; Status UNV Info (PHARMACY MONITORING -- do not chart) 1 each PRN DAILY PRN MC SEE COMMENTS; Start 08/30/18 at 11:15; Status UNV Info (Tpn Per Pharmacy) 1 each PRN DAILY PRN MC SEE COMMENTS Last administered on 09/03/18at 10:53; Start 08/30/18 at 12:45; Stop 09/04/18 at 12:50; Status DC Sodium Chloride 90 meq/Potassium Chloride 50 meq/ Potassium Phosphate 3 mmol/ Magnesium Sulfate 10 meq/Calcium Gluconate 10 meq/ Multivitamins 10 ml/Chromium/ Copper/Manganese/ Seleni/Zn 1 ml/ Total Parenteral Nutrition/Amino Acids/Dextrose/ Fat Emulsion Intravenous 1,512 ml @ 63 mls/hr TPN CONT IV Last administered on 08/30/18at 21:40; Start 08/30/18 at 22:00; Stop 08/31/18 at 21:59; Status DC Ondansetron HCl (Zofran) 4 mg PRN Q6HRS PRN IV NAUSEA/VOMITING; Start 08/31/18 at 08:00 Haloperidol (Haldol) 2 mg PRN QID PRN PO AGITATION; Start 08/31/18 at 08:00; Stop 08/31/18 at 12:43; Status DC Haloperidol Lactate (HALDOL 2mg ORAL CONC) 2 mg PRN QID PRN PO AGITATION; Start 08/31/18 at 12:43 Sodium Chloride 90 meq/Potassium Chloride 50 meq/ Potassium Phosphate 5 mmol/ Magnesium Sulfate 3 meq/Calcium Gluconate 10 meq/ Multivitamins 10 ml/Chromium/ Copper/Manganese/ Seleni/Zn 1 ml/ Total Parenteral Nutrition/Amino Acids/Dextrose 1,512 ml @ 63 mls/hr TPN CONT IV Last administered on 08/31/18at 20:59; Start 08/31/18 at 22:00; Stop 09/01/18 at 21:59; Status DC Propofol 100 ml @ As Directed STK-MED ONCE IV ; Start 08/31/18 at 22:45; Stop 08/31/18 at 22:46; Status DC Succinylcholine Chloride (Anectine) 200 mg STK-MED ONCE .ROUTE ; Start 08/31/18 at 22:46; Stop 08/31/18 at 22:47; Status DC Atropine Sulfate (ATROPINE 1mg SYRINGE) 1 mg STK-MED ONCE .ROUTE ; Start 08/31/18 at 22:58; Stop 08/31/18 at 22:59; Status DC Fentanyl Citrate 30 ml @ 0 mls/hr CONT PRN IV SEE PROTOCOL Last administered on 09/06/18at 10:39; Start 09/01/18 at 00:00; Stop 09/06/18 at 10:59; Status DC Propofol 100 ml @ 0 mls/hr CONT PRN IV SEE PROTOCOL Last administered on 09/06/18at 08:14; Start 09/01/18 at 00:00; Stop 09/06/18 at 10:59; Status DC Chlorhexidine Gluconate (Peridex) 15 ml BID MM Last administered on 09/07/18at 21:21; Start 09/01/18 at 09:00; Stop 09/08/18 at 08:04; Status DC Midazolam HCl 100 ml @ 0 mls/hr CONT PRN IV SEE PROTOCOL; Start 09/01/18 at 00:00; Stop 09/08/18 at 11:30; Status DC Albuterol/ Ipratropium (Duoneb) 3 ml RTQID NEB Last administered on 09/11/18at 07:58; Start 09/01/18 at 08:00 Albuterol/ Ipratropium (Duoneb) 3 ml 1X ONCE NEB Last administered on 09/01/18a t 01:10; Start 09/01/18 at 01:00; Stop 09/01/18 at 01:01; Status DC Succinylcholine Chloride (Anectine) 200 mg 1X ONCE IV Last administered on 08/31/18at 23:04; Start 09/01/18 at 01:15; Stop 09/01/18 at 01:16; Status DC Sodium Chloride 1,000 ml @ 1,000 mls/hr Q1H PRN IV hypotension; Start 09/01/18 at 07:00; Stop 09/01/18 at 12:59; Status DC Sodium Chloride (Normal Saline Flush) 10 ml 1X PRN PRN IV AP catheter pack; Start 09/01/18 at 07:00; Stop 09/02/18 at 06:59; Status DC Sodium Chloride (Normal Saline Flush) 10 ml 1X PRN PRN IV IMPORT EXPORT MANAGER catheter pack; Start 09/01/18 at 07:00; Stop 09/02/18 at 06:59; Status DC Sodium Chloride 1,000 ml @ 400 mls/hr Q2H30M PRN IV PATENCY; Start 09/01/18 at 07:00; Stop 09/01/18 at 18:59; Status DC Info (PHARMACY MONITORING -- do not chart) 1 each PRN DAILY PRN MC SEE COMMENTS; Start 09/01/18 at 11:00; Status Cancel Info (PHARMACY MONITORING -- do not chart) 1 each PRN DAILY PRN MC SEE COMMENTS; Start 09/01/18 at 11:00; Status Cancel Famotidine (Pepcid Vial) 20 mg Q48H IVP Last administered on 09/09/18at 21:22; Start 09/03/18 at 21:00 Sodium Chloride 90 meq/Potassium Chloride 50 meq/ Potassium Phosphate 10 mmol/ Calcium Gluconate 10 meq/ Multivitamins 10 ml/Chromium/ Copper/Manganese/ Seleni/Zn 1 ml/ Total Parenteral Nutrition/Amino Acids/Dextrose 1,512 ml @ 63 mls/hr TPN CONT IV Last administered on 09/01/18at 22:11; Start 09/01/18 at 22:00; Stop 09/02/18 at 21:59; Status DC Piperacillin Sod/ Tazobactam Sod 2.25 gm/Sodium Chloride 50 ml @ 100 mls/hr Q6HRS IV Last administered on 09/11/18at 05:19; Start 09/01/18 at 14:00; Stop 09/11/18 at 09:29; Status DC Sodium Chloride 110 meq/Potassium Chloride 50 meq/ Potassium Phosphate 10 mmol/ Calcium Gluconate 10 meq/ Multivitamins 10 ml/Chromium/ Copper/Manganese/ Seleni/Zn 1 ml/ Magnesium Sulfate 3 meq/Total Parenteral Nutrition/Amino Acids/Dextrose 1,512 ml @ 63 mls/hr TPN CONT IV Last administered on 09/02/18at 22:13; Start 09/02/18 at 22:00; Stop 09/03/18 at 21:59; Status DC Darbepoetin Phil (Aranesp) 100 mcg [id number] SQ Last administered on 09/10/18at 21:35; Start 09/03/18 at 21:00 Sodium Chloride 130 meq/Potassium Acetate 20 meq/ Calcium Gluconate 10 meq/ Multivitamins 10 ml/Chromium/ Copper/Manganese/ Seleni/Zn 1 ml/ Magnesium Sulfate 3 meq/Total Parenteral Nutrition/Amino Acids/Dextrose 1,512 ml @ 63 mls/hr TPN CONT IV Last administered on 09/03/18at 22:12; Start 09/03/18 at 22:00; Stop 09/04/18 at 21:59; Status DC Albumin Human 200 ml @ 200 mls/hr 1X PRN PRN IV Hypotension; Start 09/03/18 at 10:00; Stop 09/03/18 at 21:00; Status DC Sodium Chloride (Normal Saline Flush) 10 ml 1X PRN PRN IV AP catheter pack; Start 09/03/18 at 10:00; Stop 09/03/18 at 21:00; Status DC Sodium Chloride (Normal Saline Flush) 10 ml 1X PRN PRN IV IMPORT EXPORT MANAGER catheter pack; Start 09/03/18 at 10:00; Stop 09/03/18 at 21:00; Status DC Sodium Chloride 1,000 ml @ 400 mls/hr Q2H30M PRN IV PATENCY; Start 09/03/18 at 10:00; Stop 09/03/18 at 21:59; Status DC Info (PHARMACY MONITORING -- do not chart) 1 each PRN DAILY PRN MC SEE COMMENTS; Start 09/03/18 at 18:15; Status UNV Atropine Sulfate (ATROPINE 0.5mg SYRINGE) 0.5 mg STK-MED ONCE .ROUTE ; Start 08/31/18 at 08:06; Stop 09/04/18 at 08:07; Status DC Epinephrine HCl (EPINEPHrine SYRINGE) 3 mg STK-MED ONCE .ROUTE ; Start 08/31/18 at 08:06; Stop 09/04/18 at 08:07; Status DC Sodium Bicarbonate (Sodium Bicarb Adult 8.4% Syr) 100 meq STK-MED ONCE .ROUTE ; Start 08/31/18 at 08:06; Stop 09/04/18 at 08:07; Status DC Levofloxacin/ Dextrose 150 ml @ 100 mls/hr QODAY IV Last administered on 09/06/18at 10:28; Start 09/04/18 at 09:00; Stop 09/07/18 at 07:52; Status DC Sodium Chloride 1,000 ml @ 1,000 mls/hr Q1H PRN IV hypotension; Start 09/04/18 at 08:23; Stop 09/04/18 at 14:24; Status DC Albumin Human 200 ml @ 200 mls/hr 1X PRN PRN IV Hypotension; Start 09/04/18 at 08:30; Stop 09/04/18 at 14:29; Status DC Sodium Chloride 1,000 ml @ 400 mls/hr Q2H30M PRN IV PATENCY; Start 09/04/18 at 08:23; Stop 09/04/18 at 20:22; Status DC Info (PHARMACY MONITORING -- do not chart) 1 each PRN DAILY PRN MC SEE COMMENTS; Start 09/04/18 at 08:30; Stop 09/05/18 at 08:55; Status DC Info (PHARMACY MONITORING -- do not chart) 1 each PRN DAILY PRN MC SEE COMMENTS; Start 09/04/18 at 08:30; Status UNV Linezolid/Dextrose 300 ml @ 300 mls/hr Q12HR IV Last administered on 09/09/18at 21:21; Start 09/05/18 at 09:30; Stop 09/10/18 at 07:34; Status DC Sodium Chloride 1,000 ml @ 1,000 mls/hr Q1H PRN IV hypotension; Start 09/05/18 at 08:51; Stop 09/05/18 at 14:50; Status DC Sodium Chloride (Normal Saline Flush) 10 ml 1X PRN PRN IV AP catheter pack; Start 09/05/18 at 09:00; Stop 09/06/18 at 08:59; Status DC Sodium Chloride (Normal Saline Flush) 10 ml 1X PRN PRN IV [employer] catheter pack; Start 09/05/18 at 09:00; Stop 09/06/18 at 08:59; Status DC Sodium Chloride 1,000 ml @ 400 mls/hr Q2H30M PRN IV PATENCY; Start 09/05/18 at 08:51; Stop 09/05/18 at 20:50; Status DC Info (PHARMACY MONITORING -- do not chart) 1 each PRN DAILY PRN MC SEE COMMENTS; Start 09/05/18 at 09:00; Stop 09/05/18 at 09:00; Status DC Info (PHARMACY MONITORING -- do not chart) 1 each PRN DAILY PRN MC SEE COMMENTS; Start 09/05/18 at 09:00; Status Cancel Fentanyl Citrate (Fentanyl 2ml Vial) 25 mcg PRN Q2HR PRN IV MODERATE PAIN Last administered on 09/08/18at 04:34; Start 09/06/18 at 11:00 Dexmedetomidine HCl 200 mcg/ Sodium Chloride 50 ml @ 0 mls/hr CONT PRN IV PER PROTOCOL; Start 09/06/18 at 11:00; Stop 09/08/18 at 08:03; Status DC Sodium Chloride 500 ml @ 500 mls/hr 1X PRN PRN IV SEE COMMENTS; Start 09/06/18 at 11:00 Atropine Sulfate (ATROPINE 0.5mg SYRINGE) 0.5 mg PRN Q5MIN PRN IV SEE COMMENTS; Start 09/06/18 at 11:00 Sodium Chloride 1,000 ml @ 1,000 mls/hr Q1H PRN IV hypotension; Start 09/06/18 at 11:52; Stop 09/06/18 at 17:51; Status DC Diphenhydramine HCl (Benadryl) 25 mg 1X PRN PRN IV ITCHING; Start 09/06/18 at 12:00; Stop 09/07/18 at 11:59; Status DC Diphenhydramine HCl (Benadryl) 25 mg 1X PRN PRN IV ITCHING; Start 09/06/18 at 12:00; Stop 09/07/18 at 11:59; Status DC Sodium Chloride 1,000 ml @ 400 mls/hr Q2H30M PRN IV PATENCY; Start 09/06/18 at 11:52; Stop 09/06/18 at 23:51; Status DC Info (PHARMACY MONITORING -- do not chart) 1 each PRN DAILY PRN MC SEE COMMENTS; Start 09/06/18 at 12:00; Stop 09/06/18 at 12:00; Status DC Micafungin Sodium 100 mg/Dextrose 100 ml @ 100 mls/hr Q24H IV Last administered on 09/11/18at 09:23; Start 09/07/18 at 08:30 Sodium Chloride 1,000 ml @ 1,000 mls/hr Q1H PRN IV hypotension; Start 09/07/18 at 16:29; Stop 09/07/18 at 22:28; Status DC Diphenhydramine HCl (Benadryl) 25 mg 1X PRN PRN IV ITCHING; Start 09/07/18 at 16:30; Stop 09/08/18 at 16:29; Status DC Diphenhydramine HCl (Benadryl) 25 mg 1X PRN PRN IV ITCHING; Start 09/07/18 at 16:30; Stop 09/08/18 at 16:29; Status DC Sodium Chloride 1,000 ml @ 400 mls/hr Q2H30M PRN IV PATENCY; Start 09/07/18 at 16:29; Stop 09/08/18 at 04:28; Status DC Info (PHARMACY MONITORING -- do not chart) 1 each PRN DAILY PRN MC SEE COMMENTS; Start 09/07/18 at 16:30 Lidocaine/Sodium Bicarbonate (Buffered Lidocaine 1%) 3 ml 1X ONCE INJ Last administered on 09/10/18at 09:51; Start 09/10/18 at 08:45; Stop 09/10/18 at 08:46; Status DC Heparin Sodium (Porcine) (Heparin Sodium) 2,400 unit 1X ONCE INT CAT Last administered on 09/10/18at 09:51; Start 09/10/18 at 08:45; Stop 09/10/18 at 08:46; Status DC Sodium Chloride 1,000 ml @ 1,000 mls/hr Q1H PRN IV hypotension; Start 09/10/18 at 13:19; Stop 09/10/18 at 19:18; Status DC Diphenhydramine HCl (Benadryl) 25 mg 1X PRN PRN IV ITCHING; Start 09/10/18 at 13:30; Stop 09/11/18 at 13:29 Diphenhydramine HCl (Benadryl) 25 mg 1X PRN PRN IV ITCHING; Start 09/10/18 at 13:30; Stop 09/11/18 at 13:29 Sodium Chloride 1,000 ml @ 400 mls/hr Q2H30M PRN IV PATENCY; Start 09/10/18 at 13:19; Stop 09/11/18 at 01:18; Status DC Info (PHARMACY MONITORING -- do not chart) 1 each PRN DAILY PRN MC SEE COMMENTS; Start 09/10/18 at 13:30 Active Scripts Active Potassium Chloride 20 Meq Tablet.er 20 Meq PO DAILY Orphenadrine Citrate 100 Mg Tablet.er 100 Mg PO Q12HR Anaprox Ds (Naproxen Sodium) 550 Mg Tablet 550 Mg PO Q12HR Reported Prednisone 20 Mg Tablet 1 Tab PO DAILY Hydrochlorothiazide Tablet (Hydrochlorothiazide) 12.5 Mg Tablet 12.5 Mg PO DAILY Shilpi Allergy (Fexofenadine Hcl) 180 Mg Tablet 1 Tab PO DAILY Vitals/I & O Vital Sign - Last 24 Hours 09/10/18 09/10/18 09/10/18 09/10/18 10:00 11:00 13:02 16:16 Temp 97.7 97.7 Pulse 83 80 81 Resp 40 36 22 B/P (MAP) 160/82 (108) 150/84 (106) 155/85 (108) Pulse Ox 97 97 94 93 O2 Delivery Nasal Cannula Nasal Cannula Nasal Cannula Nasal Cannula O2 Flow Rate 3.0 3.0 3.0 3.0 09/10/18 09/10/18 09/10/18 09/10/18 17:17 19:15 20:00 20:45 Temp 98.8 98.8 Pulse 83 Resp 20 B/P (MAP) 149/79 (102) Pulse Ox 95 93 94 O2 Delivery Nasal Cannula Nasal Cannula Nasal Cannula Nasal Cannula O2 Flow Rate 3.0 3.0 3.0 2.0 09/10/18 09/11/18 09/11/18 09/11/18 23:42 03:36 07:10 08:00 Temp 99.5 99.1 97.5 99.5 99.1 97.5 Pulse 82 79 81 Resp 20 16 20 B/P (MAP) 158/90 (112) 149/83 (105) 158/87 (110) Pulse Ox 93 95 95 95 O2 Delivery Nasal Cannula Nasal Cannula Nasal Cannula Nasal Cannula O2 Flow Rate 3.0 3.0 3.0 2.0 Intake and Output 09/10/18 09/10/18 09/11/18 14:59 22:59 06:59 Intake Total 150 ml 300 ml Output Total 26 ml 0 ml 50 ml Balance -26 ml 150 ml 250 ml MARBIN GARCIA MD Sep 11, 2018 09:48
--- NOTE | 2018-09-11 10:47 | PDOC ---
SUBJECTIVE ROS Stable , temp Dialysis cath placed 09/10 (was removed on 09/07) OBJECTIVE Vital Signs Vital Signs Date Time Temp Pulse Resp B/P (MAP) Pulse Ox O2 Delivery O2 Flow Rate FiO2 09/11/18 08:00 95 Nasal Cannula 2.0 09/11/18 07:10 97.5 81 20 158/87 (110) 97.5 I & 0 Intake and Output 09/11/18 07:00 Intake Total 450 ml Output Total 66 ml Balance 384 ml Intake Oral 0 ml Tube Feeding 450 ml Output Urine Total 66 ml # Bowel Movements 1 PHYSICAL EXAM Physical Exam GENERAL: Awake, On o2, HEENT: On O2 by NC NECK: Supple. LUNGS: Clear anteriorly HEART: S1 and S2. regular ABDOMEN: soft, Rectal tube in place : Waters in place EXTREMITIES: no edema SKIN: Warm NEUROLOGIC: Awake, DIAGNOSIS/ASSESSMENT Assessment & Plan RADHA/ATN- Requiring HD , no renal recovery Dialysis cath was removed on09/07 , replaced on 09/10 with temp catheter Stable , No indication for HD today, continue per MWF schedule If No renal recovery, will need Perm Dialysis cath prior to dc when approved by ID Genevieveemia from 09/04. 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 negative for ehrlichia -RMSF neg, Encephalopathy waxing and waning etiology unclear MRI neg Anemia - Hg stable < 8 On JANINA Hemochromatosis, followed by [facility] COMMENT/RELEVANT DATA Meds Current Medications Medications (Trade) Dose Ordered Sig/Noemi Start Time Stop Time Status Last Admin Dose Admin Acetaminophen (Tylenol Supp) 650 mg PRN Q6HRS PRN 08/27/18 21:15 09/02/18 01:18 650 MG Acetaminophen (Tylenol) 650 mg PRN Q6HRS PRN 08/27/18 21:15 Acyclovir Sodium 340 mg/Dextrose 106.8 ml @ 106.8 mls/ hr Q12HR 08/30/18 09:00 09/01/18 13:37 DC 09/01/18 11:05 106.8 MLS/HR Albumin Human 200 ml @ 200 mls/hr 1X PRN PRN 09/04/18 08:30 09/04/18 14:29 DC Albuterol/ Ipratropium (Duoneb) 3 ml 1X ONCE 09/01/18 01:00 09/01/18 01:01 DC 09/01/18 01:10 3 ML Amlodipine Besylate (Norvasc) 2.5 mg DAILY 09/11/18 11:00 Atropine Sulfate (ATROPINE 0.5mg SYRINGE) 0.5 mg PRN Q5MIN PRN 09/06/18 11:00 Atropine Sulfate (ATROPINE 1mg SYRINGE) 1 mg STK-MED ONCE 08/31/18 22:58 08/31/18 22:59 DC Aztreonam (Azactam) 2 gm 1X ONCE 08/25/18 21:15 08/25/18 21:16 DC 08/25/18 21:15 2 GM Benzocaine (Hurricaine One) 1 spray 1X STAT 08/28/18 10:16 08/28/18 10:19 DC 08/28/18 10:16 1 SPRAY Ceftriaxone Sodium (Rocephin) 1 gm 1X ONCE 08/25/18 20:30 08/25/18 20:31 DC 08/25/18 20:36 1 GM Chlorhexidine Gluconate (Peridex) 15 ml BID 09/01/18 09:00 09/08/18 08:04 DC 09/07/18 21:21 15 ML Daptomycin 610 mg/ Sodium Chloride 50 ml @ 100 mls/hr Q48H 08/30/18 16:00 08/30/18 16:00 DC Darbepoetin Phil (Aranesp) 100 mcg WEEKLYHS 09/03/18 21:00 09/10/18 21:35 100 MCG Dexmedetomidine HCl 200 mcg/ Sodium Chloride 50 ml @ 0 mls/hr CONT PRN 09/06/18 11:00 09/08/18 08:03 DC Diphenhydramine HCl (Benadryl) 25 mg 1X PRN PRN 09/10/18 13:30 09/11/18 13:29 Doxycycline Hyclate 100 mg/ Dextrose 100 ml @ 50 mls/hr Q12HR 08/26/18 09:00 09/04/18 08:11 DC 09/03/18 22:11 50 MLS/HR Epinephrine HCl (EPINEPHrine SYRINGE) 3 mg STK-MED ONCE 08/31/18 08:06 09/04/18 08:07 DC Famotidine (Pepcid Vial) 20 mg Q48H 09/03/18 21:00 09/09/18 21:22 20 MG Famotidine (Pepcid) 20 mg Q48H 08/29/18 09:00 08/29/18 11:29 DC Fentanyl Citrate (Fentanyl 2ml Vial) 25 mcg PRN Q2HR PRN 09/06/18 11:00 09/08/18 04:34 25 MCG Haloperidol (Haldol) 2 mg PRN QID PRN 08/31/18 08:00 08/31/18 12:43 DC Haloperidol Lactate (HALDOL 2mg ORAL CONC) 2 mg PRN QID PRN 08/31/18 12:43 Haloperidol Lactate (Haldol Inj) 5 mg PRN Q6HRS PRN 08/28/18 12:00 09/06/18 05:53 5 MG Heparin Sodium (Porcine) (Heparin Sodium) 2,400 unit 1X ONCE 09/10/18 08:45 09/10/18 08:46 DC 09/10/18 09:51 2,400 UNIT Ibuprofen (Motrin) 600 mg 1X ONCE 08/25/18 19:45 08/25/18 19:49 DC 08/25/18 20:38 600 MG Info (PHARMACY MONITORING -- do not chart) 1 each PRN DAILY PRN 09/10/18 13:30 Info (Tpn Per Pharmacy) 1 each PRN DAILY PRN 08/30/18 12:45 09/04/18 12:50 DC 09/03/18 10:53 1 EACH Lactobacillus Rhamnosus (Culturelle) 1 cap BID 08/26/18 21:00 09/08/18 10:55 DC 09/08/18 09:34 1 CAP Levofloxacin/ Dextrose 150 ml @ 100 mls/hr QODAY 09/04/18 09:00 09/07/18 07:52 DC 09/06/18 10:28 100 MLS/HR Lidocaine HCl (Glydo (Lidocaine) Jelly) 1 meng 1X STAT 08/28/18 10:16 08/28/18 10:19 DC 08/28/18 10:16 1 MENG Lidocaine/Sodium Bicarbonate (Buffered Lidocaine 1%) 3 ml 1X ONCE 09/10/18 08:45 09/10/18 08:46 DC 09/10/18 09:51 3 ML Linezolid/Dextrose 300 ml @ 300 mls/hr Q12HR 09/05/18 09:30 09/10/18 07:34 DC 09/09/18 21:21 300 MLS/HR Magnesium Sulfate 50 ml @ 25 mls/hr 1X ONCE 08/25/18 21:15 08/25/18 23:14 DC 08/25/18 23:51 25 MLS/HR Meropenem 500 mg/ Sodium Chloride 50 ml @ 100 mls/hr DAILY 08/26/18 09:00 08/30/18 08:17 DC 08/29/18 10:13 100 MLS/HR Micafungin Sodium 100 mg/Dextrose 100 ml @ 100 mls/hr Q24H 09/07/18 08:30 09/11/18 09:23 100 MLS/HR Midazolam HCl 100 ml @ 0 mls/hr CONT PRN 09/01/18 00:00 09/08/18 11:30 DC Norepinephrine Bitartrate 250 ml @ 0 mls/hr CONT PRN 08/26/18 09:15 08/30/18 17:20 DC 08/27/18 10:21 1.88 MLS/HR Ondansetron HCl (Zofran) 4 mg PRN Q6HRS PRN 08/31/18 08:00 Piperacillin Sod/ Tazobactam Sod 2.25 gm/Sodium Chloride 50 ml @ 100 mls/hr Q6HRS 09/01/18 14:00 09/11/18 09:29 DC 09/11/18 05:19 100 MLS/HR Piperacillin Sod/ Tazobactam Sod 4.5 gm/Sodium Chloride 100 ml @ 200 mls/hr 1X ONCE 08/25/18 21:15 08/25/18 21:44 DC Propofol 100 ml @ 0 mls/hr CONT PRN 09/01/18 00:00 09/06/18 10:59 DC 09/06/18 08:14 6.135 MLS/HR Sodium Bicarbonate (Sodium Bicarb Adult 8.4% Syr) 100 meq STK-MED ONCE 08/31/18 08:06 09/04/18 08:07 DC Sodium Chloride 1,000 ml @ 400 mls/hr Q2H30M PRN 09/10/18 13:19 09/11/18 01:18 DC Sodium Chloride (Normal Saline Flush) 10 ml 1X PRN PRN 09/05/18 09:00 09/06/18 08:59 DC Sodium Chloride 90 meq/Potassium Chloride 50 meq/ Potassium Phosphate 10 mmol/ Calcium Gluconate 10 meq/ Multivitamins 10 ml/Chromium/ Copper/Manganese/ Seleni/Zn 1 ml/ Total Parenteral Nutrition/Amino Acids/Dextrose 1,512 ml @ 63 mls/hr TPN CONT 09/01/18 22:00 09/02/18 21:59 DC 09/01/18 22:11 63 MLS/HR Sodium Chloride 90 meq/Potassium Chloride 50 meq/ Potassium Phosphate 3 mmol/ Magnesium Sulfate 10 meq/Calcium Gluconate 10 meq/ Multivitamins 10 ml/Chromium/ Copper/Manganese/ Seleni/Zn 1 ml/ Total Parenteral Nutrition/Amino Acids/Dextrose/ Fat Emulsion Intravenous 1,512 ml @ 63 mls/hr TPN CONT 08/30/18 22:00 08/31/18 21:59 DC 08/30/18 21:40 63 MLS/HR Sodium Chloride 90 meq/Potassium Chloride 50 meq/ Potassium Phosphate 5 mmol/ Magnesium Sulfate 3 meq/Calcium Gluconate 10 meq/ Multivitamins 10 ml/Chromium/ Copper/Manganese/ Seleni/Zn 1 ml/ Total Parenteral Nutrition/Amino Acids/Dextrose 1,512 ml @ 63 mls/hr TPN CONT 08/31/18 22:00 09/01/18 21:59 DC 08/31/18 20:59 63 MLS/HR Sodium Chloride 110 meq/Potassium Chloride 50 meq/ Potassium Phosphate 10 mmol/ Calcium Gluconate 10 meq/ Multivitamins 10 ml/Chromium/ Copper/Manganese/ Seleni/Zn 1 ml/ Magnesium Sulfate 3 meq/Total Parenteral Nutrition/Amino Acids/Dextrose 1,512 ml @ 63 mls/hr TPN CONT 09/02/18 22:00 09/03/18 21:59 DC 09/02/18 22:13 63 MLS/HR Sodium Chloride 130 meq/Potassium Acetate 20 meq/ Calcium Gluconate 10 meq/ Multivitamins 10 ml/Chromium/ Copper/Manganese/ Seleni/Zn 1 ml/ Magnesium Sulfate 3 meq/Total Parenteral Nutrition/Amino Acids/Dextrose 1,512 ml @ 63 mls/hr TPN CONT 09/03/18 22:00 09/04/18 21:59 DC 09/03/18 22:12 63 MLS/HR Succinylcholine Chloride (Anectine) 200 mg 1X ONCE 09/01/18 01:15 09/01/18 01:16 DC 08/31/18 23:04 200 MG Vancomycin HCl 2 gm/Sodium Chloride 500 ml @ 250 mls/hr 1X ONCE 08/25/18 21:30 08/25/18 23:29 DC 08/25/18 23:10 250 MLS/HR Lab Laboratory Tests Test 09/11/18 03:25 White Blood Count 8.8 x10^3/uL (4.0-11.0) Red Blood Count 2.56 x10^6/uL (4.30-5.70) Hemoglobin 7.6 g/dL (13.0-17.5) Hematocrit 22.2 % (39.0-53.0) Mean Corpuscular Volume 87 fL (79-100) Mean Corpuscular Hemoglobin 30 pg (25-35) Mean Corpuscular Hemoglobin Concent 34 g/dL (31-37) Red Cell Distribution Width 19.4 % (11.5-14.5) Platelet Count 379 x10^3/uL (140-400) Neutrophils (%) (Auto) 50 % (31-73) Lymphocytes (%) (Auto) 31 % (24-48) Monocytes (%) (Auto) 16 % (0-9) Eosinophils (%) (Auto) 2 % (0-3) Basophils (%) (Auto) 1 % (0-3) Neutrophils # (Auto) 4.4 x10^3uL (1.8-7.7) Lymphocytes # (Auto) 2.7 x10^3/uL (1.0-4.8) Monocytes # (Auto) 1.4 x10^3/uL (0.0-1.1) Eosinophils # (Auto) 0.2 x10^3/uL (0.0-0.7) Basophils # (Auto) 0.1 x10^3/uL (0.0-0.2) Sodium Level 137 mmol/L (136-145) Potassium Level 4.1 mmol/L (3.5-5.1) Chloride Level 96 mmol/L (98-107) Carbon Dioxide Level 26 mmol/L (21-32) Anion Gap 15 (6-14) Blood Urea Nitrogen 65 mg/dL (8-26) Creatinine 7.3 mg/dL (0.7-1.3) Estimated GFR (Cockcroft-Gault) 7.9 BUN/Creatinine Ratio 9 (6-20) Glucose Level 113 mg/dL (70-99) Calcium Level 8.0 mg/dL (8.5-10.1) Total Bilirubin 0.8 mg/dL (0.2-1.0) Aspartate Amino Transf (AST/SGOT) 45 U/L (15-37) Alanine Aminotransferase (ALT/SGPT) 43 U/L (16-63) Alkaline Phosphatase 104 U/L (46-116) Total Protein 7.1 g/dL (6.4-8.2) Albumin 2.1 g/dL (3.4-5.0) Albumin/Globulin Ratio 0.4 (1.0-1.7) Results All relevant outside records, renal labs, imaging studies, telemetry/EKG's were reviewed. OG CHAVES MD Sep 11, 2018 10:47
[2018-09-11 10:59] VITALS: BP 178/94
[2018-09-11] MEDS ORDERED: DAPT350V IV (11:22)
[2018-09-11] MEDS ORDERED: CEFEPIME HCL IVP (11:22)
[2018-09-11] MEDS ORDERED: MICA100V3 IV (11:23)
--- NOTE | 2018-09-11 11:26 | SNU/HH DC ---
DISCHARGE ORDERS DISCHARGE INFORMATION: DISCHARGE DATE: Sep 11, 2018 FINAL DIAGNOSIS Problems Medical Problems: (1) Acute renal failure Status: Acute CONDITION ON DISCHARGE: Stable CODE STATUS: Code Status: Full LTAC: ADMIT TO LTAC: Yes POST DISCHARGE ORDERS: ACTIVITY ORDERS: Other, see below WEIGHT BEARING STATUS: Other, see below (max assist, up OK) DIET AFTER DISCHARGE: NPO (NG tube feeds at 65) FOLLOW-UP: PHYSICIAN FOLLOW-UP: consult Neuro and ID, TREATMENT/EQUIPMENT ORDERS: ADAPTIVE EQUIPMENT NEEDED: Sliding board, Wheelchair Physical Therapy For: Evalulation/Treatment Occupational Therapy For: Evaluation/Treatment Speech Language Pathology For: Evaluation/Treatment DISCHARGE MEDICATIONS: Home Meds Active Scripts Micafungin Sodium (MYCAMINE) 100 Mg Vial, 100 MG IV DAILY for sepsis for 10 Days, #10 EACH Prov:ESTHER AMANDA MD 09/11/18 Daptomycin (Daptomycin) 350 Mg Vial, 640 MG IV DAILY for sepsis for 14 Days, #26 EACH Prov:ESTHER AMANDA MD 09/11/18 [CEFEPIME HCL IV Push] 1 GM VIAL No Conflict Check, 1 GM IVP Q24H for 14 Days, #14 EACH Prov:ESTHER AMANDA MD 09/11/18 Potassium Chloride (POTASSIUM CHLORIDE) 20 Meq Tablet.er, 20 MEQ PO DAILY, #4 TAB.SR Prov:MICKEY MANCUSO DO 08/24/18 Orphenadrine Citrate (ORPHENADRINE CITRATE) 100 Mg Tablet.er, 100 MG PO Q12HR, #14 Prov:JASON CERVANTES 02/03/16 Naproxen Sodium (ANAPROX DS) 550 Mg Tablet, 550 MG PO Q12HR, #20 Prov:JASON CERVANTES 02/03/16 Reported Medications Hydrochlorothiazide (HYDROCHLOROTHIAZIDE TABLET) 12.5 Mg Tablet, 12.5 MG PO DAILY for DIURETIC, TAB 0 Refills 08/26/18 Fexofenadine Hcl (JOSSIE ALLERGY) 180 Mg Tablet, 1 TAB PO DAILY for allergies, #30 TAB 2 Refills 08/26/18 Discontinued Reported Medications Prednisone (PREDNISONE) 20 Mg Tablet, 1 TAB PO DAILY for , #5 TAB 08/26/18 ESTHER AMANDA MD Sep 11, 2018 11:26
--- NOTE | 2018-09-11 11:38 | PDOC ---
PROGRESS NOTES Subjective Subjective HPI - f/u of Thrombocytopenia and anemia ROS - no fever Objective Objective Vital Signs Date Time Temp Pulse Resp B/P (MAP) Pulse Ox O2 Delivery O2 Flow Rate FiO2 09/11/18 10:59 100.3 82 20 178/94 (122) 96 Nasal Cannula 3.0 100.3 Intake and Output 09/11/18 07:00 Intake Total 450 ml Output Total 66 ml Balance 384 ml Intake Oral 0 ml Tube Feeding 450 ml Output Urine Total 66 ml # Bowel Movements 1 Physical Exam Heart: Normal S1, Normal S2 General: Alert, No acute distress Lungs: Clear to auscultation Assessment Assessment Problems Medical Problems: (1) Acute renal failure Status: Acute Assessment/Plan 52 yo male presents with week long history of fever and found to have thrombocytopenia, ARF, elevated LFTs 1. Septic shock - Fever - Tick borne illness suspected. Per ID. 2. Dehydration 3. Acute renal failure. Cr 7.1, management per nephro. 4. Elevated LFTs 5. Thrombocytopenia due to sepsis, no clinical evidence of TTP, no evidence of schistocytes, normal retic and haptoglobin and Hb. He should be transfused plts if his plt count <10 or he develops active bleeding. Plt better at 30 on 08/27/18. Plt better at 47 on 08/28/18, Plt better at 58 on 08/29/18 Plt better at 67 on 08/30/18. Plt better at 73 on 08/31/18 Plt better at 139 on 09/04/18, Plt normal at 175, Monitor cbc. Plt normal at 379 on 09/11/18 No bleeding 6. Anemia, Hb 7.6 on 09/11/18 6.Hemochromatosis, he follows with Dr. Iverson at [facility] and has been undergoing phlebotomy. His last phlebotomy was in late June. Comment Review of Relevant I have reviewed the following items gera (where applicable) has been applied. Labs Laboratory Tests Test 09/10/18 04:45 09/11/18 03:25 White Blood Count 11.1 x10^3/uL (4.0-11.0) 8.8 x10^3/uL (4.0-11.0) Red Blood Count 2.37 x10^6/uL (4.30-5.70) 2.56 x10^6/uL (4.30-5.70) Hemoglobin 7.0 g/dL (13.0-17.5) 7.6 g/dL (13.0-17.5) Hematocrit 20.3 % (39.0-53.0) 22.2 % (39.0-53.0) Mean Corpuscular Volume 86 fL (79-100) 87 fL (79-100) Mean Corpuscular Hemoglobin 29 pg (25-35) 30 pg (25-35) Mean Corpuscular Hemoglobin Concent 34 g/dL (31-37) 34 g/dL (31-37) Red Cell Distribution Width 18.4 % (11.5-14.5) 19.4 % (11.5-14.5) Platelet Count 359 x10^3/uL (140-400) 379 x10^3/uL (140-400) Neutrophils (%) (Auto) 58 % (31-73) 50 % (31-73) Lymphocytes (%) (Auto) 28 % (24-48) 31 % (24-48) Monocytes (%) (Auto) 12 % (0-9) 16 % (0-9) Eosinophils (%) (Auto) 1 % (0-3) 2 % (0-3) Basophils (%) (Auto) 1 % (0-3) 1 % (0-3) Neutrophils # (Auto) 6.4 x10^3uL (1.8-7.7) 4.4 x10^3uL (1.8-7.7) Lymphocytes # (Auto) 3.1 x10^3/uL (1.0-4.8) 2.7 x10^3/uL (1.0-4.8) Monocytes # (Auto) 1.3 x10^3/uL (0.0-1.1) 1.4 x10^3/uL (0.0-1.1) Eosinophils # (Auto) 0.1 x10^3/uL (0.0-0.7) 0.2 x10^3/uL (0.0-0.7) Basophils # (Auto) 0.1 x10^3/uL (0.0-0.2) 0.1 x10^3/uL (0.0-0.2) Sodium Level 134 mmol/L (136-145) 137 mmol/L (136-145) Potassium Level 4.7 mmol/L (3.5-5.1) 4.1 mmol/L (3.5-5.1) Chloride Level 92 mmol/L (98-107) 96 mmol/L (98-107) Carbon Dioxide Level 21 mmol/L (21-32) 26 mmol/L (21-32) Anion Gap 21 (6-14) 15 (6-14) Blood Urea Nitrogen 117 mg/dL (8-26) 65 mg/dL (8-26) Creatinine 10.6 mg/dL (0.7-1.3) 7.3 mg/dL (0.7-1.3) Estimated GFR (Cockcroft-Gault) 5.1 7.9 BUN/Creatinine Ratio 11 (6-20) 9 (6-20) Glucose Level 107 mg/dL (70-99) 113 mg/dL (70-99) Calcium Level 7.1 mg/dL (8.5-10.1) 8.0 mg/dL (8.5-10.1) Total Bilirubin 0.9 mg/dL (0.2-1.0) 0.8 mg/dL (0.2-1.0) Aspartate Amino Transf (AST/SGOT) 39 U/L (15-37) 45 U/L (15-37) Alanine Aminotransferase (ALT/SGPT) 36 U/L (16-63) 43 U/L (16-63) Alkaline Phosphatase 113 U/L (46-116) 104 U/L (46-116) Total Protein 6.9 g/dL (6.4-8.2) 7.1 g/dL (6.4-8.2) Albumin 2.1 g/dL (3.4-5.0) 2.1 g/dL (3.4-5.0) Albumin/Globulin Ratio 0.4 (1.0-1.7) 0.4 (1.0-1.7) Laboratory Tests Test 09/11/18 03:25 White Blood Count 8.8 x10^3/uL (4.0-11.0) Red Blood Count 2.56 x10^6/uL (4.30-5.70) Hemoglobin 7.6 g/dL (13.0-17.5) Hematocrit 22.2 % (39.0-53.0) Mean Corpuscular Volume 87 fL (79-100) Mean Corpuscular Hemoglobin 30 pg (25-35) Mean Corpuscular Hemoglobin Concent 34 g/dL (31-37) Red Cell Distribution Width 19.4 % (11.5-14.5) Platelet Count 379 x10^3/uL (140-400) Neutrophils (%) (Auto) 50 % (31-73) Lymphocytes (%) (Auto) 31 % (24-48) Monocytes (%) (Auto) 16 % (0-9) Eosinophils (%) (Auto) 2 % (0-3) Basophils (%) (Auto) 1 % (0-3) Neutrophils # (Auto) 4.4 x10^3uL (1.8-7.7) Lymphocytes # (Auto) 2.7 x10^3/uL (1.0-4.8) Monocytes # (Auto) 1.4 x10^3/uL (0.0-1.1) Eosinophils # (Auto) 0.2 x10^3/uL (0.0-0.7) Basophils # (Auto) 0.1 x10^3/uL (0.0-0.2) Sodium Level 137 mmol/L (136-145) Potassium Level 4.1 mmol/L (3.5-5.1) Chloride Level 96 mmol/L (98-107) Carbon Dioxide Level 26 mmol/L (21-32) Anion Gap 15 (6-14) Blood Urea Nitrogen 65 mg/dL (8-26) Creatinine 7.3 mg/dL (0.7-1.3) Estimated GFR (Cockcroft-Gault) 7.9 BUN/Creatinine Ratio 9 (6-20) Glucose Level 113 mg/dL (70-99) Calcium Level 8.0 mg/dL (8.5-10.1) Total Bilirubin 0.8 mg/dL (0.2-1.0) Aspartate Amino Transf (AST/SGOT) 45 U/L (15-37) Alanine Aminotransferase (ALT/SGPT) 43 U/L (16-63) Alkaline Phosphatase 104 U/L (46-116) Total Protein 7.1 g/dL (6.4-8.2) Albumin 2.1 g/dL (3.4-5.0) Albumin/Globulin Ratio 0.4 (1.0-1.7) Microbiology 09/08/18 Blood Culture - Preliminary, Resulted NO GROWTH AFTER 3 DAYS 08/29/18 CSF Gram Stain - Final, Complete 08/27/18 Stool Culture - Final, Complete 08/27/18 Stool Culture Result 1 (LOTUS) - Final, Complete 08/27/18 Campylobacter Antigen Assay - Final, Complete 08/27/18 Campylobactor Result 1 - Final, Complete 08/27/18 Shiga Toxin Test - Final, Complete 09/05/18 - Final, Complete 09/05/18 - Final, Complete 09/05/18 - Final, Complete 09/05/18 Gram Stain Evaluation - Final, Complete 09/05/18 Sputum Culture - Final, Complete 09/05/18 Sputum Result 1 - Final, Complete 09/04/18 Urine Culture - Final, Complete 09/04/18 Urine Culture Result 1 (LOTUS) - Final, Complete Medications Current Medications Sodium Chloride 1,000 ml @ 1,000 mls/hr 1X ONCE IV Last administered on 08/25/18at 20:38; Start 08/25/18 at 19:15; Stop 08/25/18 at 20:14; Status DC Ibuprofen (Motrin) 600 mg 1X ONCE PO Last administered on 08/25/18at 20:38; Start 08/25/18 at 19:45; Stop 08/25/18 at 19:49; Status DC Sodium Chloride 1,000 ml @ 1,000 mls/hr 1X ONCE IV Last administered on 08/25/18at 20:30; Start 08/25/18 at 20:30; Stop 08/25/18 at 21:29; Status DC Ceftriaxone Sodium (Rocephin) 1 gm 1X ONCE IVP Last administered on 08/25/18at 20:36; Start 08/25/18 at 20:30; Stop 08/25/18 at 20:31; Status DC Vancomycin HCl 2 gm/Sodium Chloride 500 ml @ 250 mls/hr 1X ONCE IV Last administered on 08/25/18at 23:10; Start 08/25/18 at 21:30; Stop 08/25/18 at 23:29; Status DC Sodium Chloride 1,000 ml @ 1,000 mls/hr 1X ONCE IV Last administered on 08/25/18at 23:51; Start 08/25/18 at 21:00; Stop 08/25/18 at 21:59; Status DC Piperacillin Sod/ Tazobactam Sod 4.5 gm/Sodium Chloride 100 ml @ 200 mls/hr 1X ONCE IV ; Start 08/25/18 at 21:15; Stop 08/25/18 at 21:44; Status DC Aztreonam (Azactam) 2 gm 1X ONCE IVP Last administered on 08/25/18at 21:15; Start 08/25/18 at 21:15; Stop 08/25/18 at 21:16; Status DC Magnesium Sulfate 50 ml @ 25 mls/hr 1X ONCE IV Last administered on 08/25/18at 23:51; Start 08/25/18 at 21:15; Stop 08/25/18 at 23:14; Status DC Ondansetron HCl (Zofran) 4 mg PRN Q8HRS PRN IV NAUSEA/VOMITING; Start 08/25/18 at 21:15; Stop 08/26/18 at 21:14; Status DC Acetaminophen (Tylenol) 650 mg PRN Q4HRS PRN PO FEVER; Start 08/25/18 at 21:15; Stop 08/26/18 at 21:14; Status DC Sodium Chloride 1,000 ml @ 125 mls/hr 1X ONCE IV Last administered on 08/25/18at 23:09; Start 08/25/18 at 21:15; Stop 08/26/18 at 05:14; Status DC Daptomycin 610 mg/ Sodium Chloride 50 ml @ 100 mls/hr QODAY IV Last administered on 08/27/18at 08:59; Start 08/27/18 at 09:00; Stop 08/28/18 at 15:40; Status DC Meropenem 500 mg/ Sodium Chloride 50 ml @ 100 mls/hr 1X ONCE IV Last administered on 08/25/18at 22:12; Start 08/25/18 at 22:00; Stop 08/25/18 at 22:29; Status DC Doxycycline Hyclate 100 mg/ Dextrose 100 ml @ 50 mls/hr Q12HR IV Last administered on 09/03/18at 22:11; Start 08/26/18 at 09:00; Stop 09/04/18 at 08:11; Status DC Meropenem 500 mg/ Sodium Chloride 50 ml @ 100 mls/hr DAILY IV Last administered on 08/29/18at 10:13; Start 08/26/18 at 09:00; Stop 08/30/18 at 08:17; Status DC Sodium Chloride (Normal Saline Flush) 10 ml QSHIFT PRN IV AFTER MEDS AND BLOOD DRAWS; Start 08/26/18 at 09:15 Norepinephrine Bitartrate 250 ml @ 0 mls/hr CONT PRN IV PER PROTOCOL Last administered on 08/27/18at 10:21; Start 08/26/18 at 09:15; Stop 08/30/18 at 17:20; Status DC Famotidine (Pepcid) 20 mg DAILY PO Last administered on 08/27/18at 08:14; Start 08/26/18 at 12:00; Stop 08/27/18 at 14:36; Status DC Sodium Chloride 1,000 ml @ 1,000 mls/hr Q1H PRN IV hypotension; Start 08/26/18 at 11:51; Stop 08/26/18 at 17:50; Status DC Sodium Chloride (Normal Saline Flush) 10 ml 1X PRN PRN IV AP catheter pack; Start 08/26/18 at 12:00; Stop 08/27/18 at 11:59; Status DC Sodium Chloride (Normal Saline Flush) 10 ml 1X PRN PRN IV 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; Start 08/26/18 at 12:00; Stop 08/27/18 at 11:59; Status DC Sodium Chloride 1,000 ml @ 400 mls/hr Q2H30M PRN IV PATENCY; Start 08/26/18 at 11:51; Stop 08/26/18 at 23:50; Status DC Info (PHARMACY MONITORING -- do not chart) 1 each PRN DAILY PRN MC SEE COMMENTS; Start 08/26/18 at 12:00; Status UNV Info (PHARMACY MONITORING -- do not chart) 1 each PRN DAILY PRN MC SEE CO MMENTS; Start 08/26/18 at 12:00; Stop 09/01/18 at 10:59; Status DC Lidocaine/Sodium Bicarbonate (Buffered Lidocaine 1%) 4 ml 1X ONCE INJ Last administered on 08/26/18at 12:45; Start 08/26/18 at 12:45; Stop 08/26/18 at 12:48; Status DC Heparin Sodium (Porcine) (Heparin Sodium) 2,500 unit 1X ONCE INT CAT Last administered on 08/26/18at 12:45; Start 08/26/18 at 12:45; Stop 08/26/18 at 12:48; Status DC Lidocaine/Sodium Bicarbonate (Buffered Lidocaine 1%) 3 ml STK-MED ONCE .ROUTE ; Start 08/26/18 at 12:49; Stop 08/26/18 at 12:50; Status DC Heparin Sodium (Porcine) (Heparin Sodium) 10,000 unit STK-MED ONCE .ROUTE ; Start 08/26/18 at 12:49; Stop 08/26/18 at 12:50; Status DC Lactobacillus Rhamnosus (Culturelle) 1 cap BID PO Last administered on 09/08/18at 09:34; Start 08/26/18 at 21:00; Stop 09/08/18 at 10:55; Status DC Acetaminophen (Tylenol) 325 mg STK-MED ONCE PO ; Start 08/27/18 at 00:43; Stop 08/27/18 at 00:44; Status DC Sodium Chloride 1,000 ml @ 1,000 mls/hr 1X ONCE IV Last administered on 08/27/18at 11:05; Start 08/27/18 at 10:30; Stop 08/27/18 at 11:29; Status DC Sodium Chloride 1,000 ml @ 1,000 mls/hr Q1H PRN IV hypotension; Start 08/27/18 at 11:28; Stop 08/27/18 at 17:27; Status DC Albumin Human 200 ml @ 200 mls/hr 1X PRN PRN IV Hypotension; Start 08/27/18 at 11:30; Stop 08/27/18 at 17:29; Status DC Sodium Chloride (Normal Saline Flush) 10 ml 1X PRN PRN IV AP catheter pack; Start 08/27/18 at 11:30; Stop 08/28/18 at 11:29; Status DC Sodium Chloride (Normal Saline Flush) 10 ml 1X PRN PRN IV 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; Start 08/27/18 at 11:30; Stop 08/28/18 at 11:29; Status DC Sodium Chloride 1,000 ml @ 400 mls/hr Q2H30M PRN IV PATENCY; Start 08/27/18 at 11:28; Stop 08/27/18 at 23:27; Status DC Info (PHARMACY MONITORING -- do not chart) 1 each PRN DAILY PRN MC SEE COMMENTS; Start 08/27/18 at 11:30; Status UNV Info (PHARMACY MONITORING -- do not chart) 1 each PRN DAILY PRN MC SEE COMMENTS; Start 08/27/18 at 11:30; Status UNV Famotidine (Pepcid) 20 mg Q48H PO ; Start 08/29/18 at 09:00; Stop 08/29/18 at 11:29; Status DC Acetaminophen (Tylenol) 650 mg PRN Q6HRS PRN PO mild pain/fever; Start 08/27/18 at 21:15 Acetaminophen (Tylenol Supp) 650 mg PRN Q6HRS PRN SD MILD PAIN / TEMP Last administered on 09/02/18at 01:18; Start 08/27/18 at 21:15 Fentanyl Citrate (Fentanyl 2ml Vial) 25 mcg 1X ONCE IV Last administered on 08/28/18at 08:54; Start 08/28/18 at 08:45; Stop 08/28/18 at 08:47; Status DC Lidocaine/Sodium Bicarbonate (Buffered Lidocaine 1%) 3 ml STK-MED ONCE .ROUTE ; Start 08/28/18 at 09:55; Stop 08/28/18 at 09:56; Status DC Lidocaine HCl (Glydo (Lidocaine) Jelly) 1 meng 1X STAT MM Last administered on 08/28/18at 10:16; Start 08/28/18 at 10:16; Stop 08/28/18 at 10:19; Status DC Benzocaine (Hurricaine One) 1 spray 1X STAT MM Last administered on 08/28/18at 10:16; Start 08/28/18 at 10:16; Stop 08/28/18 at 10:19; Status DC Lidocaine/Sodium Bicarbonate (Buffered Lidocaine 1%) 3 ml 1X ONCE INJ ; Start 08/28/18 at 10:30; Stop 08/28/18 at 10:31; Status DC Haloperidol Lactate (Haldol Inj) 5 mg PRN Q6HRS PRN IVP AGITATION Last administered on 09/06/18at 05:53; Start 08/28/18 at 12:00 Fentanyl Citrate (Fentanyl 2ml Vial) 50 mcg PRN Q4HRS PRN IV PAIN Last administered on 08/28/18at 21:44; Start 08/28/18 at 15:30; Stop 09/05/18 at 02:11; Status DC Sodium Chloride 1,000 ml @ 1,000 mls/hr Q1H PRN IV hypotension; Start 08/28/18 at 14:00; Stop 08/28/18 at 19:59; Status DC Albumin Human 200 ml @ 200 mls/hr 1X PRN PRN IV Hypotension Last administered on 08/28/18at 14:50; Start 08/28/18 at 14:00; Stop 09/03/18 at 18:17; Status DC Sodium Chloride 1,000 ml @ 400 mls/hr Q2H30M PRN IV PATENCY; Start 08/28/18 at 14:00; Stop 08/29/18 at 01:59; Status DC Info (PHARMACY MONITORING -- do not chart) 1 each PRN DAILY PRN MC SEE COMMENTS; Start 08/28/18 at 15:30; Status UNV Info (PHARMACY MONITORING -- do not chart) 1 each PRN DAILY PRN MC SEE COMMENTS; Start 08/28/18 at 15:30; Status UNV Daptomycin 610 mg/ Sodium Chloride 50 ml @ 100 mls/hr Q48H IV ; Start 08/30/18 at 16:00; Stop 08/30/18 at 16:00; Status DC Famotidine (Pepcid Vial) 20 mg QHS IVP Last administered on 08/31/18at 20:59; Start 08/29/18 at 21:00; Stop 09/01/18 at 11:00; Status DC Acyclovir Sodium 340 mg/Dextrose 106.8 ml @ 106.8 mls/ hr Q12HR IV Last administered on 09/01/18at 11:05; Start 08/30/18 at 09:00; Stop 09/01/18 at 13:37; Status DC Sodium Chloride 1,000 ml @ 1,000 mls/hr Q1H PRN IV hypotension; Start 08/30/18 at 11:02; Stop 08/30/18 at 17:01; Status DC Sodium Chloride 1,000 ml @ 400 mls/hr Q2H30M PRN IV PATENCY; Start 08/30/18 at 11:02; Stop 08/30/18 at 23:01; Status DC Info (PHARMACY MONITORING -- do not chart) 1 each PRN DAILY PRN MC SEE COMMENTS; Start 08/30/18 at 11:15; Status UNV Info (PHARMACY MONITORING -- do not chart) 1 each PRN DAILY PRN MC SEE COMMENTS; Start 08/30/18 at 11:15; Status UNV Info (Tpn Per Pharmacy) 1 each PRN DAILY PRN MC SEE COMMENTS Last administered on 09/03/18at 10:53; Start 08/30/18 at 12:45; Stop 09/04/18 at 12:50; Status DC Sodium Chloride 90 meq/Potassium Chloride 50 meq/ Potassium Phosphate 3 mmol/ Magnesium Sulfate 10 meq/Calcium Gluconate 10 meq/ Multivitamins 10 ml/Chromium/ Copper/Manganese/ Seleni/Zn 1 ml/ Total Parenteral Nutrition/Amino Acids/Dextrose/ Fat Emulsion Intravenous 1,512 ml @ 63 mls/hr TPN CONT IV Last administered on 08/30/18at 21:40; Start 08/30/18 at 22:00; Stop 08/31/18 at 21:59; Status DC Ondansetron HCl (Zofran) 4 mg PRN Q6HRS PRN IV NAUSEA/VOMITING; Start 08/31/18 at 08:00 Haloperidol (Haldol) 2 mg PRN QID PRN PO AGITATION; Start 08/31/18 at 08:00; Stop 08/31/18 at 12:43; Status DC Haloperidol Lactate (HALDOL 2mg ORAL CONC) 2 mg PRN QID PRN PO AGITATION; Start 08/31/18 at 12:43 Sodium Chloride 90 meq/Potassium Chloride 50 meq/ Potassium Phosphate 5 mmol/ Magnesium Sulfate 3 meq/Calcium Gluconate 10 meq/ Multivitamins 10 ml/Chromium/ Copper/Manganese/ Seleni/Zn 1 ml/ Total Parenteral Nutrition/Amino Acids/Dextrose 1,512 ml @ 63 mls/hr TPN CONT IV Last administered on 08/31/18at 20:59; Start 08/31/18 at 22:00; Stop 09/01/18 at 21:59; Status DC Propofol 100 ml @ As Directed STK-MED ONCE IV ; Start 08/31/18 at 22:45; Stop 08/31/18 at 22:46; Status DC Succinylcholine Chloride (Anectine) 200 mg STK-MED ONCE .ROUTE ; Start 08/31/18 at 22:46; Stop 08/31/18 at 22:47; Status DC Atropine Sulfate (ATROPINE 1mg SYRINGE) 1 mg STK-MED ONCE .ROUTE ; Start 08/31/18 at 22:58; Stop 08/31/18 at 22:59; Status DC Fentanyl Citrate 30 ml @ 0 mls/hr CONT PRN IV SEE PROTOCOL Last administered on 09/06/18at 10:39; Start 09/01/18 at 00:00; Stop 09/06/18 at 10:59; Status DC Propofol 100 ml @ 0 mls/hr CONT PRN IV SEE PROTOCOL Last administered on 09/06/18at 08:14; Start 09/01/18 at 00:00; Stop 09/06/18 at 10:59; Status DC Chlorhexidine Gluconate (Peridex) 15 ml BID MM Last administered on 09/07/18at 21:21; Start 09/01/18 at 09:00; Stop 09/08/18 at 08:04; Status DC Midazolam HCl 100 ml @ 0 mls/hr CONT PRN IV SEE PROTOCOL; Start 09/01/18 at 00:00; Stop 09/08/18 at 11:30; Status DC Albuterol/ Ipratropium (Duoneb) 3 ml RTQID NEB Last administered on 09/11/18at 07:58; Start 09/01/18 at 08:00 Albuterol/ Ipratropium (Duoneb) 3 ml 1X ONCE NEB Last administered on 09/01/18at 01:10; Start 09/01/18 at 01:00; Stop 09/01/18 at 01:01; Status DC Succinylcholine Chloride (Anectine) 200 mg 1X ONCE IV Last administered on 08/31/18at 23:04; Start 09/01/18 at 01:15; Stop 09/01/18 at 01:16; Status DC Sodium Chloride 1,000 ml @ 1,000 mls/hr Q1H PRN IV hypotension; Start 09/01/18 at 07:00; Stop 09/01/18 at 12:59; Status DC Sodium Chloride (Normal Saline Flush) 10 ml 1X PRN PRN IV AP catheter pack; Start 09/01/18 at 07:00; Stop 09/02/18 at 06:59; Status DC Sodium Chloride (Normal Saline Flush) 10 ml 1X PRN PRN IV 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; Start 09/01/18 at 07:00; Stop 09/02/18 at 06:59; Status DC Sodium Chloride 1,000 ml @ 400 mls/hr Q2H30M PRN IV PATENCY; Start 09/01/18 at 07:00; Stop 09/01/18 at 18:59; Status DC Info (PHARMACY MONITORING -- do not chart) 1 each PRN DAILY PRN MC SEE COMMENTS; Start 09/01/18 at 11:00; Status Cancel Info (PHARMACY MONITORING -- do not chart) 1 each PRN DAILY PRN MC SEE COMMENTS; Start 09/01/18 at 11:00; Status Cancel Famotidine (Pepcid Vial) 20 mg Q48H IVP Last administered on 09/09/18at 21:22; Start 09/03/18 at 21:00 Sodium Chloride 90 meq/Potassium Chloride 50 meq/ Potassium Phosphate 10 mmol/ Calcium Gluconate 10 meq/ Multivitamins 10 ml/Chromium/ Copper/Manganese/ Seleni/Zn 1 ml/ Total Parenteral Nutrition/Amino Acids/Dextrose 1,512 ml @ 63 mls/hr TPN CONT IV Last administered on 09/01/18at 22:11; Start 09/01/18 at 22:00; Stop 09/02/18 at 21:59; Status DC Piperacillin Sod/ Tazobactam Sod 2.25 gm/Sodium Chloride 50 ml @ 100 mls/hr Q6HRS IV Last administered on 09/11/18at 05:19; Start 09/01/18 at 14:00; Stop 09/11/18 at 09:29; Status DC Sodium Chloride 110 meq/Potassium Chloride 50 meq/ Potassium Phosphate 10 mmol/ Calcium Gluconate 10 meq/ Multivitamins 10 ml/Chromium/ Copper/Manganese/ Seleni/Zn 1 ml/ Magnesium Sulfate 3 meq/Total Parenteral Nutrition/Amino A cids/Dextrose 1,512 ml @ 63 mls/hr TPN CONT IV Last administered on 09/02/18at 22:13; Start 09/02/18 at 22:00; Stop 09/03/18 at 21:59; Status DC Darbepoetin Phil (Aranesp) 100 mcg [id number] SQ Last administered on 09/10/18at 21:35; Start 09/03/18 at 21:00 Sodium Chloride 130 meq/Potassium Acetate 20 meq/ Calcium Gluconate 10 meq/ Multivitamins 10 ml/Chromium/ Copper/Manganese/ Seleni/Zn 1 ml/ Magnesium Sulfate 3 meq/Total Parenteral Nutrition/Amino Acids/Dextrose 1,512 ml @ 63 mls/hr TPN CONT IV Last administered on 09/03/18at 22:12; Start 09/03/18 at 22:00; Stop 09/04/18 at 21:59; Status DC Albumin Human 200 ml @ 200 mls/hr 1X PRN PRN IV Hypotension; Start 09/03/18 at 10:00; Stop 09/03/18 at 21:00; Status DC Sodium Chloride (Normal Saline Flush) 10 ml 1X PRN PRN IV AP catheter pack; Start 09/03/18 at 10:00; Stop 09/03/18 at 21:00; Status DC Sodium Chloride (Normal Saline Flush) 10 ml 1X PRN PRN IV 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; Start 09/03/18 at 10:00; Stop 09/03/18 at 21:00; Status DC Sodium Chloride 1,000 ml @ 400 mls/hr Q2H30M PRN IV PATENCY; Start 09/03/18 at 10:00; Stop 09/03/18 at 21:59; Status DC Info (PHARMACY MONITORING -- do not chart) 1 each PRN DAILY PRN MC SEE COMMENTS; Start 09/03/18 at 18:15; Status UNV Atropine Sulfate (ATROPINE 0.5mg SYRINGE) 0.5 mg STK-MED ONCE .ROUTE ; Start 08/31/18 at 08:06; Stop 09/04/18 at 08:07; Status DC Epinephrine HCl (EPINEPHrine SYRINGE) 3 mg STK-MED ONCE .ROUTE ; Start 08/31/18 at 08:06; Stop 09/04/18 at 08:07; Status DC Sodium Bicarbonate (Sodium Bicarb Adult 8.4% Syr) 100 meq STK-MED ONCE .ROUTE ; Start 08/31/18 at 08:06; Stop 09/04/18 at 08:07; Status DC Levofloxacin/ Dextrose 150 ml @ 100 mls/hr QODAY IV Last administered on 09/06/18at 10:28; Start 09/04/18 at 09:00; Stop 09/07/18 at 07:52; Status DC Sodium Chloride 1,000 ml @ 1,000 mls/hr Q1H PRN IV hypotension; Start 09/04/18 at 08:23; Stop 09/04/18 at 14:24; Status DC Albumin Human 200 ml @ 200 mls/hr 1X PRN PRN IV Hypotension; Start 09/04/18 at 08:30; Stop 09/04/18 at 14:29; Status DC Sodium Chloride 1,000 ml @ 400 mls/hr Q2H30M PRN IV PATENCY; Start 09/04/18 at 08:23; Stop 09/04/18 at 20:22; Status DC Info (PHARMACY MONITORING -- do not chart) 1 each PRN DAILY PRN MC SEE COMMENTS; Start 09/04/18 at 08:30; Stop 09/05/18 at 08:55; Status DC Info (PHARMACY MONITORING -- do not chart) 1 each PRN DAILY PRN MC SEE COMMENTS; Start 09/04/18 at 08:30; Status UNV Linezolid/Dextrose 300 ml @ 300 mls/hr Q12HR IV Last administered on 09/09/18at 21:21; Start 09/05/18 at 09:30; Stop 09/10/18 at 07:34; Status DC Sodium Chloride 1,000 ml @ 1,000 mls/hr Q1H PRN IV hypotension; Start 09/05/18 at 08:51; Stop 09/05/18 at 14:50; Status DC Sodium Chloride (Normal Saline Flush) 10 ml 1X PRN PRN IV AP catheter pack; Start 09/05/18 at 09:00; Stop 09/06/18 at 08:59; Status DC Sodium Chloride (Normal Saline Flush) 10 ml 1X PRN PRN IV 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; Start 09/05/18 at 09:00; Stop 09/06/18 at 08:59; Status DC Sodium Chloride 1,000 ml @ 400 mls/hr Q2H30M PRN IV PATENCY; Start 09/05/18 at 08:51; Stop 09/05/18 at 20:50; Status DC Info (PHARMACY MONITORING -- do not chart) 1 each PRN DAILY PRN MC SEE COMMENTS; Start 09/05/18 at 09:00; Stop 09/05/18 at 09:00; Status DC Info (PHARMACY MONITORING -- do not chart) 1 each PRN DAILY PRN MC SEE COMMENTS; Start 09/05/18 at 09:00; Status Cancel Fentanyl Citrate (Fentanyl 2ml Vial) 25 mcg PRN Q2HR PRN IV MODERATE PAIN Last administered on 09/08/18at 04:34; Start 09/06/18 at 11:00 Dexmedetomidine HCl 200 mcg/ Sodium Chloride 50 ml @ 0 mls/hr CONT PRN IV PER PROTOCOL; Start 09/06/18 at 11:00; Stop 09/08/18 at 08:03; Status DC Sodium Chloride 500 ml @ 500 mls/hr 1X PRN PRN IV SEE COMMENTS; Start 09/06/18 at 11:00 Atropine Sulfate (ATROPINE 0.5mg SYRINGE) 0.5 mg PRN Q5MIN PRN IV SEE COMMENTS; Start 09/06/18 at 11:00 Sodium Chloride 1,000 ml @ 1,000 mls/hr Q1H PRN IV hypotension; Start 09/06/18 at 11:52; Stop 09/06/18 at 17:51; Status DC Diphenhydramine HCl (Benadryl) 25 mg 1X PRN PRN IV ITCHING; Start 09/06/18 at 12:00; Stop 09/07/18 at 11:59; Status DC Diphenhydramine HCl (Benadryl) 25 mg 1X PRN PRN IV ITCHING; Start 09/06/18 at 12:00; Stop 09/07/18 at 11:59; Status DC Sodium Chloride 1,000 ml @ 400 mls/hr Q2H30M PRN IV PATENCY; Start 09/06/18 at 11:52; Stop 09/06/18 at 23:51; Status DC Info (PHARMACY MONITORING -- do not chart) 1 each PRN DAILY PRN MC SEE COMMENTS; Start 09/06/18 at 12:00; Stop 09/06/18 at 12:00; Status DC Micafungin Sodium 100 mg/Dextrose 100 ml @ 100 mls/hr Q24H IV Last administered on 09/11/18at 09:23; Start 09/07/18 at 08:30 Sodium Chloride 1,000 ml @ 1,000 mls/hr Q1H PRN IV hypotension; Start 09/07/18 at 16:29; Stop 09/07/18 at 22:28; Status DC Diphenhydramine HCl (Benadryl) 25 mg 1X PRN PRN IV ITCHING; Start 09/07/18 at 16:30; Stop 09/08/18 at 16:29; Status DC Diphenhydramine HCl (Benadryl) 25 mg 1X PRN PRN IV ITCHING; Start 09/07/18 at 16:30; Stop 09/08/18 at 16:29; Status DC Sodium Chloride 1,000 ml @ 400 mls/hr Q2H30M PRN IV PATENCY; Start 09/07/18 at 16:29; Stop 09/08/18 at 04:28; Status DC Info (PHARMACY MONITORING -- do not chart) 1 each PRN DAILY PRN MC SEE COMMENTS; Start 09/07/18 at 16:30; Stop 09/11/18 at 10:21; Status DC Lidocaine/Sodium Bicarbonate (Buffered Lidocaine 1%) 3 ml 1X ONCE INJ Last administered on 09/10/18at 09:51; Start 09/10/18 at 08:45; Stop 09/10/18 at 08:46; Status DC Heparin Sodium (Porcine) (Heparin Sodium) 2,400 unit 1X ONCE INT CAT Last administered on 09/10/18at 09:51; Start 09/10/18 at 08:45; Stop 09/10/18 at 08:46; Status DC Sodium Chloride 1,000 ml @ 1,000 mls/hr Q1H PRN IV hypotension; Start 09/10/18 at 13:19; Stop 09/10/18 at 19:18; Status DC Diphenhydramine HCl (Benadryl) 25 mg 1X PRN PRN IV ITCHING; Start 09/10/18 at 13:30; Stop 09/11/18 at 13:29 Diphenhydramine HCl (Benadryl) 25 mg 1X PRN PRN IV ITCHING; Start 09/10/18 at 13:30; Stop 09/11/18 at 13:29 Sodium Chloride 1,000 ml @ 400 mls/hr Q2H30M PRN IV PATENCY; Start 09/10/18 at 13:19; Stop 09/11/18 at 01:18; Status DC Info (PHARMACY MONITORING -- do not chart) 1 each PRN DAILY PRN MC SEE COMMENTS; Start 09/10/18 at 13:30 Amlodipine Besylate (Norvasc) 2.5 mg DAILY PO ; Start 09/11/18 at 11:00 Daptomycin 640 mg/ Sodium Chloride 50 ml @ 100 mls/hr ONCE ONCE IV ; Start 09/11/18 at 12:00; Stop 09/11/18 at 12:29 Cefepime HCl (Maxipime) 1 gm Q24H IVP ; Start 09/11/18 at 11:00 Active Scripts Active Mycamine (Micafungin Sodium) 100 Mg Vial 100 Mg IV DAILY 10 Days Daptomycin 350 Mg Vial 640 Mg IV DAILY 14 Days [Cefepime Hcl] 1 GM Vial 1 Gm IVP Q24H 14 Days Potassium Chloride 20 Meq Tablet.er 20 Meq PO DAILY Orphenadrine Citrate 100 Mg Tablet.er 100 Mg PO Q12HR Anaprox Ds (Naproxen Sodium) 550 Mg Tablet 550 Mg PO Q12HR Reported Hydrochlorothiazide Tablet (Hydrochlorothiazide) 12.5 Mg Tablet 12.5 Mg PO DAILY Shilpi Allergy (Fexofenadine Hcl) 180 Mg Tablet 1 Tab PO DAILY Vitals/I & O Vital Sign - Last 24 Hours 09/10/18 09/10/18 09/10/18 09/10/18 13:02 16:16 17:17 19:15 Temp 97.7 98.8 97.7 98.8 Pulse 81 83 Resp 22 20 B/P (MAP) 155/85 (108) 149/79 (102) Pulse Ox 94 93 95 93 O2 Delivery Nasal Cannula Nasal Cannula Nasal Cannula Nasal Cannula O2 Flow Rate 3.0 3.0 3.0 3.0 09/10/18 09/10/18 09/10/18 09/11/18 20:00 20:45 23:42 03:36 Temp 99.5 99.1 99.5 99.1 Pulse 82 79 Resp 20 16 B/P (MAP) 158/90 (112) 149/83 (105) Pulse Ox 94 93 95 O2 Delivery Nasal Cannula Nasal Cannula Nasal Cannula Nasal Cannula O2 Flow Rate 3.0 2.0 3.0 3.0 09/11/18 09/11/18 09/11/18 09/11/18 07:10 08:00 08:00 10:59 Temp 97.5 100.3 97.5 100.3 Pulse 81 82 Resp 20 20 B/P (MAP) 158/87 (110) 178/94 (122) Pulse Ox 95 95 96 O2 Delivery Nasal Cannula Nasal Cannula Nasal Cannula Nasal Cannula O2 Flow Rate 3.0 3.0 2.0 3.0 Intake and Output 09/10/18 09/10/18 09/11/18 15:00 23:00 07:00 Intake Total 150 ml 300 ml Output Total 16 ml 0 ml 50 ml Balance -16 ml 150 ml 250 ml JAVON COSME MD Sep 11, 2018 11:38
[2018-09-11] MEDS: CEFEPIME HCL IV Push 1 GM VIAL. IVP SCH (11:53)
[2018-09-11] MEDS: amLODIPine BESYLATE 5 MG TABLET PO SCH (11:55)
[2018-09-11] MEDS ORDERED: DAPTOmycin (GENERIC) IVPB 640 MG in IV NORMAL SALINE 50ML 50 ML IV ONE (12:00)
--- NOTE | 2018-09-11 13:26 | NUR ---
CARISSA following pt. Spoke with Michelle at [facility] regarding dc order and [facility] requested an update. Updated clinicals faxed by [facility] and awaiting to hear back from [facility].
--- NOTE | 2018-09-11 13:35 | PDOC ---
PROGRESS NOTES Chief Complaint Chief Complaint Sepsis Encephalopathy Encephalitis of undetermined etiology Respiratory failure Probable tick-borne illness, suspected. with h/o tick bite 3 weeks ago at [place] Lactic acidosis. Fever. Bandemia. Acute hepatic injury Acute kidney injury. Thrombocytopenia. Hemochromatosis. LLE dermatitis improving, ? poison [place],resolving with local treatment History of Present Illness History of Present Illness 09/11 FEVER today 100.3, discussed with ID, abx changed, maybe new HD line, cx taken plan to move to LTAC soon, PT and OT and Speech, he look sbetter out of ICU today Mr Kirk is a 52-year-old male with a past medical history of hemochromatosis who is pretty healthy otherwise and very active. About 3 weeks ago, he was at [facility] [employer] [place] and found a tick embedded on the back of his right thigh. He pulled it out and thought nothing of it. The next day, he was cleaning up a yard with a few other persons from denominational. He recalls kneeling down on his left knee pulling wheat. A few days later, he developed an itchy red blistering rash on his left knee that improved with [id number] ivory rest. He then developed a different type of rash that was itchy, splotchy and red on the inner aspect of both arms. He was seen by his doctor and prescribed Bactrim for infection. 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 About a week later, on Friday 08/18, he went to a men's breakfast and a [employer] meeting. Afterwards, he felt unusually tired. Over the following 24 hours, he did not feel well. He developed fever, chills, joint pains and muscle aches. He alternated taking ibuprofen and Tylenol without relief. He was seen at urgent care center and prescribed prednisone for upper respiratory infection. Unfortunately, he felt worse. He lost his appetite and was not drinking much and was urinating less. His said he was sleeping more, moaned, seemed lethargic and confused, prompting the ER visit. On arrival to the ER, he had a temperature of 100.3, respiratory rate 28. Laboratory values returned abnormal with a WBC count 6.2, segs 68%, bands 24%, platelets 17,000. Lactic acid was 5.1. Sed rate 11. He had elevated LFTs and acute kidney injury. Cultures were ordered. He was dosed with vancomycin, ceftriaxone and aztreonam in the ER. ID adjusted his antibiotics to daptomycin, meropenem and doxycycline. He was feeling improved, then on 08/28/2018 continued to worsen, was started on dialysis, required increasing O2 and was placed on BIPAP and ultimately in tubated on 08/31/2018. Serology for HIV, HSV, [place] spotted fever and Ehrlichia all thus negative. Had LP on 08/29/18 with increased protein. His spouse notes no recent travel, last time he was out of the country was [place] in 2003. 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 He struggled with infidelity over the last year and over the weekend had HIV testing consent per , this was negative as well as syphilis testing. 09/08: Extubated without event, able to get up to chair. Still on tube feeds and confused. PROFESSOR OF THEATRE to evaluate today Once he has stable access and dialysis would be appropriate for further recovery at [facility], will d/w other subspecialists prior to decision. Vitals Vitals Vital Signs Date Time Temp Pulse Resp B/P (MAP) Pulse Ox O2 Delivery O2 Flow Rate FiO2 09/11/18 11:55 85 153/82 09/11/18 10:59 100.3 20 96 Nasal Cannula 3.0 100.3 Physical Exam Physical Exam GENERAL: Awake, calm, NAD - looks well HEENT: Pupils equal, NGT, oral cavity dry NECK: Supple. LUNGS: Clear anteriorly HEART: S1 and S2. regular ABDOMEN: + distention but less, : Waters in place EXTREMITIES: No gross edema, no cyanosis. NEUROLOGIC: Awake, and alert PIV. R neck HD cath General: Alert, No acute distress Heart: Normal S1, Normal S2 Lungs: Clear Abdomen: Soft, Other ( ) Extremities: No clubbing, No cyanosis, No edema Skin: No significant lesion, Other (healing rash and excoriations on Left lower extremity. No obvious petechiae) Labs LABS Laboratory Tests Test 09/11/18 03:25 White Blood Count 8.8 x10^3/uL (4.0-11.0) Red Blood Count 2.56 x10^6/uL (4.30-5.70) Hemoglobin 7.6 g/dL (13.0-17.5) Hematocrit 22.2 % (39.0-53.0) Mean Corpuscular Volume 87 fL (79-100) Mean Corpuscular Hemoglobin 30 pg (25-35) Mean Corpuscular Hemoglobin Concent 34 g/dL (31-37) Red Cell Distribution Width 19.4 % (11.5-14.5) Platelet Count 379 x10^3/uL (140-400) Neutrophils (%) (Auto) 50 % (31-73) Lymphocytes (%) (Auto) 31 % (24-48) Monocytes (%) (Auto) 16 % (0-9) Eosinophils (%) (Auto) 2 % (0-3) Basophils (%) (Auto) 1 % (0-3) Neutrophils # (Auto) 4.4 x10^3uL (1.8-7.7) Lymphocytes # (Auto) 2.7 x10^3/uL (1.0-4.8) Monocytes # (Auto) 1.4 x10^3/uL (0.0-1.1) Eosinophils # (Auto) 0.2 x10^3/uL (0.0-0.7) Basophils # (Auto) 0.1 x10^3/uL (0.0-0.2) Sodium Level 137 mmol/L (136-145) Potassium Level 4.1 mmol/L (3.5-5.1) Chloride Level 96 mmol/L (98-107) Carbon Dioxide Level 26 mmol/L (21-32) Anion Gap 15 (6-14) Blood Urea Nitrogen 65 mg/dL (8-26) Creatinine 7.3 mg/dL (0.7-1.3) Estimated GFR (Cockcroft-Gault) 7.9 BUN/Creatinine Ratio 9 (6-20) Glucose Level 113 mg/dL (70-99) Calcium Level 8.0 mg/dL (8.5-10.1) Total Bilirubin 0.8 mg/dL (0.2-1.0) Aspartate Amino Transf (AST/SGOT) 45 U/L (15-37) Alanine Aminotransferase (ALT/SGPT) 43 U/L (16-63) Alkaline Phosphatase 104 U/L (46-116) Total Protein 7.1 g/dL (6.4-8.2) Albumin 2.1 g/dL (3.4-5.0) Albumin/Globulin Ratio 0.4 (1.0-1.7) Assessment and Plan Assessmemt and Plan Problems Medical Problems: (1) Acute renal failure Status: Acute Comment Review of Relevant I have reviewed the following items gera (where applicable) has been applied. Labs Laboratory Tests Test 09/10/18 04:45 09/11/18 03:25 White Blood Count 11.1 x10^3/uL (4.0-11.0) 8.8 x10^3/uL (4.0-11.0) Red Blood Count 2.37 x10^6/uL (4.30-5.70) 2.56 x10^6/uL (4.30-5.70) Hemoglobin 7.0 g/dL (13.0-17.5) 7.6 g/dL (13.0-17.5) Hematocrit 20.3 % (39.0-53.0) 22.2 % (39.0-53.0) Mean Corpuscular Volume 86 fL (79-100) 87 fL (79-100) Mean Corpuscular Hemoglobin 29 pg (25-35) 30 pg (25-35) Mean Corpuscular Hemoglobin Concent 34 g/dL (31-37) 34 g/dL (31-37) Red Cell Distribution Width 18.4 % (11.5-14.5) 19.4 % (11.5-14.5) Platelet Count 359 x10^3/uL (140-400) 379 x10^3/uL (140-400) Neutrophils (%) (Auto) 58 % (31-73) 50 % (31-73) Lymphocytes (%) (Auto) 28 % (24-48) 31 % (24-48) Monocytes (%) (Auto) 12 % (0-9) 16 % (0-9) Eosinophils (%) (Auto) 1 % (0-3) 2 % (0-3) Basophils (%) (Auto) 1 % (0-3) 1 % (0-3) Neutrophils # (Auto) 6.4 x10^3uL (1.8-7.7) 4.4 x10^3uL (1.8-7.7) Lymphocytes # (Auto) 3.1 x10^3/uL (1.0-4.8) 2.7 x10^3/uL (1.0-4.8) Monocytes # (Auto) 1.3 x10^3/uL (0.0-1.1) 1.4 x10^3/uL (0.0-1.1) Eosinophils # (Auto) 0.1 x10^3/uL (0.0-0.7) 0.2 x10^3/uL (0.0-0.7) Basophils # (Auto) 0.1 x10^3/uL (0.0-0.2) 0.1 x10^3/uL (0.0-0.2) Sodium Level 134 mmol/L (136-145) 137 mmol/L (136-145) Potassium Level 4.7 mmol/L (3.5-5.1) 4.1 mmol/L (3.5-5.1) Chloride Level 92 mmol/L (98-107) 96 mmol/L (98-107) Carbon Dioxide Level 21 mmol/L (21-32) 26 mmol/L (21-32) Anion Gap 21 (6-14) 15 (6-14) Blood Urea Nitrogen 117 mg/dL (8-26) 65 mg/dL (8-26) Creatinine 10.6 mg/dL (0.7-1.3) 7.3 mg/dL (0.7-1.3) Estimated GFR (Cockcroft-Gault) 5.1 7.9 BUN/Creatinine Ratio 11 (6-20) 9 (6-20) Glucose Level 107 mg/dL (70-99) 113 mg/dL (70-99) Calcium Level 7.1 mg/dL (8.5-10.1) 8.0 mg/dL (8.5-10.1) Total Bilirubin 0.9 mg/dL (0.2-1.0) 0.8 mg/dL (0.2-1.0) Aspartate Amino Transf (AST/SGOT) 39 U/L (15-37) 45 U/L (15-37) Alanine Aminotransferase (ALT/SGPT) 36 U/L (16-63) 43 U/L (16-63) Alkaline Phosphatase 113 U/L (46-116) 104 U/L (46-116) Total Protein 6.9 g/dL (6.4-8.2) 7.1 g/dL (6.4-8.2) Albumin 2.1 g/dL (3.4-5.0) 2.1 g/dL (3.4-5.0) Albumin/Globulin Ratio 0.4 (1.0-1.7) 0.4 (1.0-1.7) Laboratory Tests Test 09/11/18 03:25 White Blood Count 8.8 x10^3/uL (4.0-11.0) Red Blood Count 2.56 x10^6/uL (4.30-5.70) Hemoglobin 7.6 g/dL (13.0-17.5) Hematocrit 22.2 % (39.0-53.0) Mean Corpuscular Volume 87 fL (79-100) Mean Corpuscular Hemoglobin 30 pg (25-35) Mean Corpuscular Hemoglobin Concent 34 g/dL (31-37) Red Cell Distribution Width 19.4 % (11.5-14.5) Platelet Count 379 x10^3/uL (140-400) Neutrophils (%) (Auto) 50 % (31-73) Lymphocytes (%) (Auto) 31 % (24-48) Monocytes (%) (Auto) 16 % (0-9) Eosinophils (%) (Auto) 2 % (0-3) Basophils (%) (Auto) 1 % (0-3) Neutrophils # (Auto) 4.4 x10^3uL (1.8-7.7) Lymphocytes # (Auto) 2.7 x10^3/uL (1.0-4.8) Monocytes # (Auto) 1.4 x10^3/uL (0.0-1.1) Eosinophils # (Auto) 0.2 x10^3/uL (0.0-0.7) Basophils # (Auto) 0.1 x10^3/uL (0.0-0.2) Sodium Level 137 mmol/L (136-145) Potassium Level 4.1 mmol/L (3.5-5.1) Chloride Level 96 mmol/L (98-107) Carbon Dioxide Level 26 mmol/L (21-32) Anion Gap 15 (6-14) Blood Urea Nitrogen 65 mg/dL (8-26) Creatinine 7.3 mg/dL (0.7-1.3) Estimated GFR (Cockcroft-Gault) 7.9 BUN/Creatinine Ratio 9 (6-20) Glucose Level 113 mg/dL (70-99) Calcium Level 8.0 mg/dL (8.5-10.1) Total Bilirubin 0.8 mg/dL (0.2-1.0) Aspartate Amino Transf (AST/SGOT) 45 U/L (15-37) Alanine Aminotransferase (ALT/SGPT) 43 U/L (16-63) Alkaline Phosphatase 104 U/L (46-116) Total Protein 7.1 g/dL (6.4-8.2) Albumin 2.1 g/dL (3.4-5.0) Albumin/Globulin Ratio 0.4 (1.0-1.7) Microbiology 09/08/18 Blood Culture - Preliminary, Resulted NO GROWTH AFTER 3 DAYS 08/29/18 CSF Gram Stain - Final, Complete 08/27/18 Stool Culture - Final, Complete 08/27/18 Stool Culture Result 1 (LOTUS) - Final, Complete 08/27/18 Campylobacter Antigen Assay - Final, Complete 08/27/18 Campylobactor Result 1 - Final, Complete 08/27/18 Shiga Toxin Test - Final, Complete 09/05/18 - Final, Complete 09/05/18 - Final, Complete 09/05/18 - Final, Complete 09/05/18 Gram Stain Evaluation - Final, Complete 09/05/18 Sputum Culture - Final, Complete 09/05/18 Sputum Result 1 - Final, Complete 09/04/18 Urine Culture - Final, Complete 09/04/18 Urine Culture Result 1 (LOTUS) - Final, Complete Medications Current Medications Sodium Chloride 1,000 ml @ 1,000 mls/hr 1X ONCE IV Last administered on 08/25/18at 20:38; Start 08/25/18 at 19:15; Stop 08/25/18 at 20:14; Status DC Ibuprofen (Motrin) 600 mg 1X ONCE PO Last administered on 08/25/18at 20:38; Start 08/25/18 at 19:45; Stop 08/25/18 at 19:49; Status DC Sodium Chloride 1,000 ml @ 1,000 mls/hr 1X ONCE IV Last administered on 08/25/18at 20:30; Start 08/25/18 at 20:30; Stop 08/25/18 at 21:29; Status DC Ceftriaxone Sodium (Rocephin) 1 gm 1X ONCE IVP Last administered on 08/25/18at 20:36; Start 08/25/18 at 20:30; Stop 08/25/18 at 20:31; Status DC Vancomycin HCl 2 gm/Sodium Chloride 500 ml @ 250 mls/hr 1X ONCE IV Last administered on 08/25/18at 23:10; Start 08/25/18 at 21:30; Stop 08/25/18 at 23:29; Status DC Sodium Chloride 1,000 ml @ 1,000 mls/hr 1X ONCE IV Last administered on 08/25/18at 23:51; Start 08/25/18 at 21:00; Stop 08/25/18 at 21:59; Status DC Piperacillin Sod/ Tazobactam Sod 4.5 gm/Sodium Chloride 100 ml @ 200 mls/hr 1X ONCE IV ; Start 08/25/18 at 21:15; Stop 08/25/18 at 21:44; Status DC Aztreonam (Azactam) 2 gm 1X ONCE IVP Last administered on 08/25/18at 21:15; Start 08/25/18 at 21:15; Stop 08/25/18 at 21:16; Status DC Magnesium Sulfate 50 ml @ 25 mls/hr 1X ONCE IV Last administered on 08/25/18at 23:51; Start 08/25/18 at 21:15; Stop 08/25/18 at 23:14; Status DC Ondansetron HCl (Zofran) 4 mg PRN Q8HRS PRN IV NAUSEA/VOMITING; Start 08/25/18 at 21:15; Stop 08/26/18 at 21:14; Status DC Acetaminophen (Tylenol) 650 mg PRN Q4HRS PRN PO FEVER; Start 08/25/18 at 21:15; Stop 08/26/18 at 21:14; Status DC Sodium Chloride 1,000 ml @ 125 mls/hr 1X ONCE IV Last administered on at 23:09; Start 08/25/18 at 21:15; Stop 08/26/18 at 05:14; Status DC Daptomycin 610 mg/ Sodium Chloride 50 ml @ 100 mls/hr QODAY IV Last administered on 08/27/18at 08:59; Start 08/27/18 at 09:00; Stop 08/28/18 at 15:40; Status DC Meropenem 500 mg/ Sodium Chloride 50 ml @ 100 mls/hr 1X ONCE IV Last administered on 08/25/18at 22:12; Start 08/25/18 at 22:00; Stop 08/25/18 at 22:29; Status DC Doxycycline Hyclate 100 mg/ Dextrose 100 ml @ 50 mls/hr Q12HR IV Last administered on 09/03/18at 22:11; Start 08/26/18 at 09:00; Stop 09/04/18 at 08:11; Status DC Meropenem 500 mg/ Sodium Chloride 50 ml @ 100 mls/hr DAILY IV Last ad ministered on 08/29/18at 10:13; Start 08/26/18 at 09:00; Stop 08/30/18 at 08:17; Status DC Sodium Chloride (Normal Saline Flush) 10 ml QSHIFT PRN IV AFTER MEDS AND BLOOD DRAWS; Start 08/26/18 at 09:15 Norepinephrine Bitartrate 250 ml @ 0 mls/hr CONT PRN IV PER PROTOCOL Last administered on 08/27/18at 10:21; Start 08/26/18 at 09:15; Stop 08/30/18 at 17:20; Status DC Famotidine (Pepcid) 20 mg DAILY PO Last administered on 08/27/18at 08:14; Start 08/26/18 at 12:00; Stop 08/27/18 at 14:36; Status DC Sodium Chloride 1,000 ml @ 1,000 mls/hr Q1H PRN IV hypotension; Start 08/26/18 at 11:51; Stop 08/26/18 at 17:50; Status DC Sodium Chloride (Normal Saline Flush) 10 ml 1X PRN PRN IV AP catheter pack; Start 08/26/18 at 12:00; Stop 08/27/18 at 11:59; Status DC Sodium Chloride (Normal Saline Flush) 10 ml 1X PRN PRN IV PIPELINE [employer]ENT [employer] catheter pack; Start 08/26/18 at 12:00; Stop 08/27/18 at 11:59; Status DC Sodium Chloride 1,000 ml @ 400 mls/hr Q2H30M PRN IV PATENCY; Start 08/26/18 at 11:51; Stop 08/26/18 at 23:50; Status DC Info (PHARMACY MONITORING -- do not chart) 1 each PRN DAILY PRN MC SEE COMMENTS; Start 08/26/18 at 12:00; Status UNV Info (PHARMACY MONITORING -- do not chart) 1 each PRN DAILY PRN MC SEE COMMENTS; Start 08/26/18 at 12:00; Stop 09/01/18 at 10:59; Status DC Lidocaine/Sodium Bicarbonate (Buffered Lidocaine 1%) 4 ml 1X ONCE INJ Last administered on 08/26/18at 12:45; Start 08/26/18 at 12:45; Stop 08/26/18 at 12:48; Status DC Heparin Sodium (Porcine) (Heparin Sodium) 2,500 unit 1X ONCE INT CAT Last admi nistered on 08/26/18at 12:45; Start 08/26/18 at 12:45; Stop 08/26/18 at 12:48; Status DC Lidocaine/Sodium Bicarbonate (Buffered Lidocaine 1%) 3 ml STK-MED ONCE .ROUTE ; Start 08/26/18 at 12:49; Stop 08/26/18 at 12:50; Status DC Heparin Sodium (Porcine) (Heparin Sodium) 10,000 unit STK-MED ONCE .ROUTE ; Start 08/26/18 at 12:49; Stop 08/26/18 at 12:50; Status DC Lactobacillus Rhamnosus (Culturelle) 1 cap BID PO Last administered on 09/08/18at 09:34; Start 08/26/18 at 21:00; Stop 09/08/18 at 10:55; Status DC Acetaminophen (Tylenol) 325 mg STK-MED ONCE PO ; Start 08/27/18 at 00:43; Stop 08/27/18 at 00:44; Status DC Sodium Chloride 1,000 ml @ 1,000 mls/hr 1X ONCE IV Last administered on 08/27/18at 11:05; Start 08/27/18 at 10:30; Stop 08/27/18 at 11:29; Status DC Sodium Chloride 1,000 ml @ 1,000 mls/hr Q1H PRN IV hypotension; Start 08/27/18 at 11:28; Stop 08/27/18 at 17:27; Status DC Albumin Human 200 ml @ 200 mls/hr 1X PRN PRN IV Hypotension; Start 08/27/18 at 11:30; Stop 08/27/18 at 17:29; Status DC Sodium Chloride (Normal Saline Flush) 10 ml 1X PRN PRN IV AP catheter pack; Start 08/27/18 at 11:30; Stop 08/28/18 at 11:29; Status DC Sodium Chloride (Normal Saline Flush) 10 ml 1X PRN PRN IV PIP[employer]INE [employer] catheter pack; Start 08/27/18 at 11:30; Stop 08/28/18 at 11:29; Status DC Sodium Chloride 1,000 ml @ 400 mls/hr Q2H30M PRN IV PATENCY; Start 08/27/18 at 11:28; Stop 08/27/18 at 23:27; Status DC Info (PHARMACY MONITORING -- do not chart) 1 each PRN DAILY PRN MC SEE COMMENTS; Start 08/27/18 at 11:30; Status UNV Info (PHARMACY MONITORING -- do not chart) 1 each PRN DAILY PRN MC SEE COMMENTS; Start 08/27/18 at 11:30; Status UNV Famotidine (Pepcid) 20 mg Q48H PO ; Start 08/29/18 at 09:00; Stop 08/29/18 at 11:29; Status DC Acetaminophen (Tylenol) 650 mg PRN Q6HRS PRN PO mild pain/fever; Start 08/27/18 at 21:15 Acetaminophen (Tylenol Supp) 650 mg PRN Q6HRS PRN MA MILD PAIN / TEMP Last adm inistered on 09/02/18at 01:18; Start 08/27/18 at 21:15 Fentanyl Citrate (Fentanyl 2ml Vial) 25 mcg 1X ONCE IV Last administered on 08/28/18at 08:54; Start 08/28/18 at 08:45; Stop 08/28/18 at 08:47; Status DC Lidocaine/Sodium Bicarbonate (Buffered Lidocaine 1%) 3 ml STK-MED ONCE .ROUTE ; Start 08/28/18 at 09:55; Stop 08/28/18 at 09:56; Status DC Lidocaine HCl (Glydo (Lidocaine) Jelly) 1 meng 1X STAT MM Last administered on 08/28/18at 10:16; Start 08/28/18 at 10:16; Stop 08/28/18 at 10:19; Status DC Benzocaine (Hurricaine One) 1 spray 1X STAT MM Last administered on 08/28/18at 10:16; Start 08/28/18 at 10:16; Stop 08/28/18 at 10:19; Status DC Lidocaine/Sodium Bicarbonate (Buffered Lidocaine 1%) 3 ml 1X ONCE INJ ; Start 08/28/18 at 10:30; Stop 08/28/18 at 10:31; Status DC Haloperidol Lactate (Haldol Inj) 5 mg PRN Q6HRS PRN IVP AGITATION Last administered on 09/06/18at 05:53; Start 08/28/18 at 12:00 Fentanyl Citrate (Fentanyl 2ml Vial) 50 mcg PRN Q4HRS PRN IV PAIN Last administered on 08/28/18at 21:44; Start 08/28/18 at 15:30; Stop 09/05/18 at 02:11; Status DC Sodium Chloride 1,000 ml @ 1,000 mls/hr Q1H PRN IV hypotension; Start 08/28/18 at 14:00; Stop 08/28/18 at 19:59; Status DC Albumin Human 200 ml @ 200 mls/hr 1X PRN PRN IV Hypotension Last administered on 08/28/18at 14:50; Start 08/28/18 at 14:00; Stop 09/03/18 at 18:17; Status DC Sodium Chloride 1,000 ml @ 400 mls/hr Q2H30M PRN IV PATENCY; Start 08/28/18 at 14:00; Stop 08/29/18 at 01:59; Status DC Info (PHARMACY MONITORING -- do not chart) 1 each PRN DAILY PRN MC SEE COMMENTS; Start 08/28/18 at 15:30; Status UNV Info (PHARMACY MONITORING -- do not chart) 1 each PRN DAILY PRN MC SEE COMMENTS; Start 08/28/18 at 15:30; Status UNV Daptomycin 610 mg/ Sodium Chloride 50 ml @ 100 mls/hr Q48H IV ; Start 08/30/18 at 16:00; Stop 08/30/18 at 16:00; Status DC Famotidine (Pepcid Vial) 20 mg QHS IVP Last administered on 08/31/18at 20:59; Start 08/29/18 at 21:00; Stop 09/01/18 at 11:00; Status DC Acyclovir Sodium 340 mg/Dextrose 106.8 ml @ 106.8 mls/ hr Q12HR IV Last administered on 09/01/18at 11:05; Start 08/30/18 at 09:00; Stop 09/01/18 at 13:37; Status DC Sodium Chloride 1,000 ml @ 1,000 mls/hr Q1H PRN IV hypotension; Start 08/30/18 at 11:02; Stop 08/30/18 at 17:01; Status DC Sodium Chloride 1,000 ml @ 400 mls/hr Q2H30M PRN IV PATENCY; Start 08/30/18 at 11:02; Stop 08/30/18 at 23:01; Status DC Info (PHARMACY MONITORING -- do not chart) 1 each PRN DAILY PRN MC SEE COMMENTS; Start 08/30/18 at 11:15; Status UNV Info (PHARMACY MONITORING -- do not chart) 1 each PRN DAILY PRN MC SEE COMMENTS; Start 08/30/18 at 11:15; Status UNV Info (Tpn Per Pharmacy) 1 each PRN DAILY PRN MC SEE COMMENTS Last administered on 09/03/18at 10:53; Start 08/30/18 at 12:45; Stop 09/04/18 at 12:50; Status DC Sodium Chloride 90 meq/Potassium Chloride 50 meq/ Potassium Phosphate 3 mmol/ Magnesium Sulfate 10 meq/Calcium Gluconate 10 meq/ Multivitamins 10 ml/Chromium/ Copper/Manganese/ Seleni/Zn 1 ml/ Total Parenteral Nutrition/Amino Acids/Dextrose/ Fat Emulsion Intravenous 1,512 ml @ 63 mls/hr TPN CONT IV Last administered on 08/30/18at 21:40; Start 08/30/18 at 22:00; Stop 08/31/18 at 21:59; Status DC Ondansetron HCl (Zofran) 4 mg PRN Q6HRS PRN IV NAUSEA/VOMITING; Start 08/31/18 at 08:00 Haloperidol (Haldol) 2 mg PRN QID PRN PO AGITATION; Start 08/31/18 at 08:00; Stop 08/31/18 at 12:43; Status DC Haloperidol Lactate (HALDOL 2mg ORAL CONC) 2 mg PRN QID PRN PO AGITATION; Start 08/31/18 at 12:43 Sodium Chloride 90 meq/Potassium Chloride 50 meq/ Potassium Phosphate 5 mmol/ Magnesium Sulfate 3 meq/Calcium Gluconate 10 meq/ Multivitamins 10 ml/Chromium/ Copper/Manganese/ Seleni/Zn 1 ml/ Total Parenteral Nutrition/Amino Acids/Dextrose 1,512 ml @ 63 mls/hr TPN CONT IV Last administered on 08/31/18at 20:59; Start 08/31/18 at 22:00; Stop 09/01/18 at 21:59; Status DC Propofol 100 ml @ As Directed STK-MED ONCE IV ; Start 08/31/18 at 22:45; Stop 08/31/18 at 22:46; Status DC Succinylcholine Chloride (Anectine) 200 mg STK-MED ONCE .ROUTE ; Start 08/31/18 at 22:46; Stop 08/31/18 at 22:47; Status DC Atropine Sulfate (ATROPINE 1mg SYRINGE) 1 mg STK-MED ONCE .ROUTE ; Start 08/31/18 at 22:58; Stop 08/31/18 at 22:59; Status DC Fentanyl Citrate 30 ml @ 0 mls/hr CONT PRN IV SEE PROTOCOL Last administered on 09/06/18at 10:39; Start 09/01/18 at 00:00; Stop 09/06/18 at 10:59; Status DC Propofol 100 ml @ 0 mls/hr CONT PRN IV SEE PROTOCOL Last administered on 09/06/18at 08:14; Start 09/01/18 at 00:00; Stop 09/06/18 at 10:59; Status DC Chlorhexidine Gluconate (Peridex) 15 ml BID MM Last administered on 09/07/18at 21:21; Start 09/01/18 at 09:00; Stop 09/08/18 at 08:04; Status DC Midazolam HCl 100 ml @ 0 mls/hr CONT PRN IV SEE PROTOCOL; Start 09/01/18 at 00:00; Stop 09/08/18 at 11:30; Status DC Albuterol/ Ipratropium (Duoneb) 3 ml RTQID NEB Last administered on 09/11/18at 07:58; Start 09/01/18 at 08:00 Albuterol/ Ipratropium (Duoneb) 3 ml 1X ONCE NEB Last administered on at 01:10; Start 09/01/18 at 01:00; Stop 09/01/18 at 01:01; Status DC Succinylcholine Chloride (Anectine) 200 mg 1X ONCE IV Last administered on 08/31/18at 23:04; Start 09/01/18 at 01:15; Stop 09/01/18 at 01:16; Status DC Sodium Chloride 1,000 ml @ 1,000 mls/hr Q1H PRN IV hypotension; Start 09/01/18 at 07:00; Stop 09/01/18 at 12:59; Status DC Sodium Chloride (Normal Saline Flush) 10 ml 1X PRN PRN IV AP catheter pack; Start 09/01/18 at 07:00; Stop 09/02/18 at 06:59; Status DC Sodium Chloride (Normal Saline Flush) 10 ml 1X PRN PRN IV [employer] catheter pack; Start 09/01/18 at 07:00; Stop 09/02/18 at 06:59; Status DC Sodium Chloride 1,000 ml @ 400 mls/hr Q2H30M PRN IV PATENCY; Start 09/01/18 at 07:00; Stop 09/01/18 at 18:59; Status DC Info (PHARMACY MONITORING -- do not chart) 1 each PRN DAILY PRN MC SEE COMMENTS; Start 09/01/18 at 11:00; Status Cancel Info (PHARMACY MONITORING -- do not chart) 1 each PRN DAILY PRN MC SEE COMMENTS; Start 09/01/18 at 11:00; Status Cancel Famotidine (Pepcid Vial) 20 mg Q48H IVP Last administered on 09/09/18at 21:22; Start 09/03/18 at 21:00 Sodium Chloride 90 meq/Potassium Chloride 50 meq/ Potassium Phosphate 10 mmol/ Calcium Gluconate 10 meq/ Multivitamins 10 ml/Chromium/ Copper/Manganese/ Seleni/Zn 1 ml/ Total Parenteral Nutrition/Amino Acids/Dextrose 1,512 ml @ 63 mls/hr TPN CONT IV Last administered on 09/01/18at 22:11; Start 09/01/18 at 22: 00; Stop 09/02/18 at 21:59; Status DC Piperacillin Sod/ Tazobactam Sod 2.25 gm/Sodium Chloride 50 ml @ 100 mls/hr Q6HRS IV Last administered on 09/11/18at 05:19; Start 09/01/18 at 14:00; Stop 09/11/18 at 09:29; Status DC Sodium Chloride 110 meq/Potassium Chloride 50 meq/ Potassium Phosphate 10 mmol/ Calcium Gluconate 10 meq/ Multivitamins 10 ml/Chromium/ Copper/Manganese/ Seleni/Zn 1 ml/ Magnesium Sulfate 3 meq/Total Parenteral Nutrition/Amino Acids/Dextrose 1,512 ml @ 63 mls/hr TPN CONT IV Last administered on 09/02/18at 22:13; Start 09/02/18 at 22:00; Stop 09/03/18 at 21:59; Status DC Darbepoetin Phil (Aranesp) 100 mcg [id number] SQ Last administered on 09/10/18at 21:35; Start 09/03/18 at 21:00 Sodium Chloride 130 meq/Potassium Acetate 20 meq/ Calcium Gluconate 10 meq/ Multivitamins 10 ml/Chromium/ Copper/Manganese/ Seleni/Zn 1 ml/ Magnesium Sulfate 3 meq/Total Parenteral Nutrition/Amino Acids/Dextrose 1,512 ml @ 63 mls/hr TPN CONT IV Last administered on 09/03/18at 22:12; Start 09/03/18 at 22:00; Stop 09/04/18 at 21:59; Status DC Albumin Human 200 ml @ 200 mls/hr 1X PRN PRN IV Hypotension; Start 09/03/18 at 10:00; Stop 09/03/18 at 21:00; Status DC Sodium Chloride (Normal Saline Flush) 10 ml 1X PRN PRN IV AP catheter pack; Start 09/03/18 at 10:00; Stop 09/03/18 at 21:00; Status DC Sodium Chloride (Normal Saline Flush) 10 ml 1X PRN PRN IV [employer] catheter pack; Start 09/03/18 at 10:00; Stop 09/03/18 at 21:00; Status DC Sodium Chloride 1,000 ml @ 400 mls/hr Q2H30M PRN IV PATENCY; Start 09/03/18 at 10:00; Stop 09/03/18 at 21:59; Status DC Info (PHARMACY MONITORING -- do not chart) 1 each PRN DAILY PRN MC SEE COMMENTS; Start 09/03/18 at 18:15; Status UNV Atropine Sulfate (ATROPINE 0.5mg SYRINGE) 0.5 mg STK-MED ONCE .ROUTE ; Start 08/31/18 at 08:06; Stop 09/04/18 at 08:07; Status DC Epinephrine HCl (EPINEPHrine SYRINGE) 3 mg STK-MED ONCE .ROUTE ; Start 08/31/18 at 08:06; Stop 09/04/18 at 08:07; Status DC Sodium Bicarbonate (Sodium Bicarb Adult 8.4% Syr) 100 meq STK-MED ONCE .ROUTE ; Start 08/31/18 at 08:06; Stop 09/04/18 at 08:07; Status DC Levofloxacin/ Dextrose 150 ml @ 100 mls/hr QODAY IV Last administered on 09/06/18at 10:28; Start 09/04/18 at 09:00; Stop 09/07/18 at 07:52; Status DC Sodium Chloride 1,000 ml @ 1,000 mls/hr Q1H PRN IV hypotension; Start 09/04/18 at 08:23; Stop 09/04/18 at 14:24; Status DC Albumin Human 200 ml @ 200 mls/hr 1X PRN PRN IV Hypotension; Start 09/04/18 at 08:30; Stop 09/04/18 at 14:29; Status DC Sodium Chloride 1,000 ml @ 400 mls/hr Q2H30M PRN IV PATENCY; Start 09/04/18 at 08:23; Stop 09/04/18 at 20:22; Status DC Info (PHARMACY MONITORING -- do not chart) 1 each PRN DAILY PRN MC SEE COMMENT S; Start 09/04/18 at 08:30; Stop 09/05/18 at 08:55; Status DC Info (PHARMACY MONITORING -- do not chart) 1 each PRN DAILY PRN MC SEE COMMENTS; Start 09/04/18 at 08:30; Status UNV Linezolid/Dextrose 300 ml @ 300 mls/hr Q12HR IV Last administered on 09/09/18at 21:21; Start 09/05/18 at 09:30; Stop 09/10/18 at 07:34; Status DC Sodium Chloride 1,000 ml @ 1,000 mls/hr Q1H PRN IV hypotension; Start 09/05/18 at 08:51; Stop 09/05/18 at 14:50; Status DC Sodium Chloride (Normal Saline Flush) 10 ml 1X PRN PRN IV AP catheter pack; Start 09/05/18 at 09:00; Stop 09/06/18 at 08:59; Status DC Sodium Chloride (Normal Saline Flush) 10 ml 1X PRN PRN IV [employer] catheter pack; Start 09/05/18 at 09:00; Stop 09/06/18 at 08:59; Status DC Sodium Chloride 1,000 ml @ 400 mls/hr Q2H30M PRN IV PATENCY; Start 09/05/18 at 08:51; Stop 09/05/18 at 20:50; Status DC Info (PHARMACY MONITORING -- do not chart) 1 each PRN DAILY PRN MC SEE COMMENTS; Start 09/05/18 at 09:00; Stop 09/05/18 at 09:00; Status DC Info (PHARMACY MONITORING -- do not chart) 1 each PRN DAILY PRN MC SEE COMMENTS; Start 09/05/18 at 09:00; Status Cancel Fentanyl Citrate (Fentanyl 2ml Vial) 25 mcg PRN Q2HR PRN IV MODERATE PAIN Last administered on 09/08/18at 04:34; Start 09/06/18 at 11:00 Dexmedetomidine HCl 200 mcg/ Sodium Chloride 50 ml @ 0 mls/hr CONT PRN IV PER PROTOCOL; Start 09/06/18 at 11:00; Stop 09/08/18 at 08:03; Status DC Sodium Chloride 500 ml @ 500 mls/hr 1X PRN PRN IV SEE COMMENTS; Start 09/06/18 at 11:00 Atropine Sulfate (ATROPINE 0.5mg SYRINGE) 0.5 mg PRN Q5MIN PRN IV SEE COMMENTS; Start 09/06/18 at 11:00 Sodium Chloride 1,000 ml @ 1,000 mls/hr Q1H PRN IV hypotension; Start 09/06/18 at 11:52; Stop 09/06/18 at 17:51; Status DC Diphenhydramine HCl (Benadryl) 25 mg 1X PRN PRN IV ITCHING; Start 09/06/18 at 12:00; Stop 09/07/18 at 11:59; Status DC Diphenhydramine HCl (Benadryl) 25 mg 1X PRN PRN IV ITCHING; Start 09/06/18 at 12:00; Stop 09/07/18 at 11:59; Status DC Sodium Chloride 1,000 ml @ 400 mls/hr Q2H30M PRN IV PATENCY; Start 09/06/18 at 11:52; Stop 09/06/18 at 23:51; Status DC Info (PHARMACY MONITORING -- do not chart) 1 each PRN DAILY PRN MC SEE COMMENTS; Start 09/06/18 at 12:00; Stop 09/06/18 at 12:00; Status DC Micafungin Sodium 100 mg/Dextrose 100 ml @ 100 mls/hr Q24H IV Last administered on 09/11/18at 09:23; Start 09/07/18 at 08:30 Sodium Chloride 1,000 ml @ 1,000 mls/hr Q1H PRN IV hypotension; Start 09/07/18 at 16:29; Stop 09/07/18 at 22:28; Status DC Diphenhydramine HCl (Benadryl) 25 mg 1X PRN PRN IV ITCHING; Start 09/07/18 at 16:30; Stop 09/08/18 at 16:29; Status DC Diphenhydramine HCl (Benadryl) 25 mg 1X PRN PRN IV ITCHING; Start 09/07/18 at 16:30; Stop 09/08/18 at 16:29; Status DC Sodium Chloride 1,000 ml @ 400 mls/hr Q2H30M PRN IV PATENCY; Start 09/07/18 at 16:29; Stop 09/08/18 at 04:28; Status DC Info (PHARMACY MONITORING -- do not chart) 1 each PRN DAILY PRN MC SEE COMMENTS; Start 09/07/18 at 16:30; Stop 09/11/18 at 10:21; Status DC Lidocaine/Sodium Bicarbonate (Buffered Lidocaine 1%) 3 ml 1X ONCE INJ Last administered on 09/10/18at 09:51; Start 09/10/18 at 08:45; Stop 09/10/18 at 08:46; Status DC Heparin Sodium (Porcine) (Heparin Sodium) 2,400 unit 1X ONCE INT CAT Last administered on 09/10/18at 09:51; Start 09/10/18 at 08:45; Stop 09/10/18 at 08:46; Status DC Sodium Chloride 1,000 ml @ 1,000 mls/hr Q1H PRN IV hypotension; Start 09/10/18 at 13:19; Stop 09/10/18 at 19:18; Status DC Diphenhydramine HCl (Benadryl) 25 mg 1X PRN PRN IV ITCHING; Start 09/10/18 at 13:30; Stop 09/11/18 at 13:29; Status DC Diphenhydramine HCl (Benadryl) 25 mg 1X PRN PRN IV ITCHING; Start 09/10/18 at 13:30; Stop 09/11/18 at 13:29; Status DC Sodium Chloride 1,000 ml @ 400 mls/hr Q2H30M PRN IV PATENCY; Start 09/10/18 at 13:19; Stop 09/11/18 at 01:18; Status DC Info (PHARMACY MONITORING -- do not chart) 1 each PRN DAILY PRN MC SEE COMMENTS; Start 09/10/18 at 13:30 Amlodipine Besylate (Norvasc) 2.5 mg DAILY PO Last administered on 09/11/18at 11:55; Start 09/11/18 at 11:00 Daptomycin 640 mg/ Sodium Chloride 50 ml @ 100 mls/hr ONCE ONCE IV Last administered on 09/11/18at 12:41; Start 09/11/18 at 12:00; Stop 09/11/18 at 12:29; Status DC Cefepime HCl (Maxipime) 1 gm Q24H IVP Last administered on 09/11/18at 11:53; Start 09/11/18 at 11:00 Active Scripts Active Mycamine (Micafungin Sodium) 100 Mg Vial 100 Mg IV DAILY 10 Days Daptomycin 350 Mg Vial 640 Mg IV DAILY 14 Days [Cefepime Hcl] 1 GM Vial 1 Gm IVP Q24H 14 Days Potassium Chloride 20 Meq Tablet.er 20 Meq PO DAILY Orphenadrine Citrate 100 Mg Tablet.er 100 Mg PO Q12HR Anaprox Ds (Naproxen Sodium) 550 Mg Tablet 550 Mg PO Q12HR Reported Hydrochlorothiazide Tablet (Hydrochlorothiazide) 12.5 Mg Tablet 12.5 Mg PO DAILY Shilpi Allergy (Fexofenadine Hcl) 180 Mg Tablet 1 Tab PO DAILY Vitals/I & O Vital Sign - Last 24 Hours 09/10/18 09/10/18 09/10/18 09/10/18 16:16 17:17 19:15 20:00 Temp 97.7 98.8 97.7 98.8 Pulse 81 83 Resp 22 20 B/P (MAP) 155/85 (108) 149/79 (102) Pulse Ox 93 95 93 O2 Delivery Nasal Cannula Nasal Cannula Nasal Cannula Nasal Cannula O2 Flow Rate 3.0 3.0 3.0 3.0 09/10/18 09/10/18 09/11/18 09/11/18 20:45 23:42 03:36 07:10 Temp 99.5 99.1 97.5 99.5 99.1 97.5 Pulse 82 79 81 Resp 20 16 20 B/P (MAP) 158/90 (112) 149/83 (105) 158/87 (110) Pulse Ox 94 93 95 95 O2 Delivery Nasal Cannula Nasal Cannula Nasal Cannula Nasal Cannula O2 Flow Rate 2.0 3.0 3.0 3.0 09/11/18 09/11/18 09/11/18 09/11/18 08:00 08:00 10:59 11:55 Temp 100.3 100.3 Pulse 82 85 Resp 20 B/P (MAP) 178/94 (122) 153/82 Pulse Ox 95 96 O2 Delivery Nasal Cannula Nasal Cannula Nasal Cannula O2 Flow Rate 3.0 2.0 3.0 Intake and Output 09/10/18 09/10/18 09/11/18 14:59 22:59 06:59 Intake Total 150 ml 300 ml Output Total 26 ml 0 ml 50 ml Balance -26 ml 150 ml 250 ml ESTHER AMANDA MD Sep 11, 2018 13:35
--- NOTE | 2018-09-11 14:03 | NUR ---
CARISSA following pt. Margi reported they do not have a bed today and Michelle is checking with insurance if auth from last week is still good. RN and Physician notified.
--- NOTE | 2018-09-11 14:43 | RAD ---
Portable chest x-ray compared to similar study dated September 102018 for fever. FINDINGS: Extensive perihilar infiltrates/edema is markedly improved. There is persistent opacification of the left medial lung base. No new lung parenchymal abnormalities. Enteric tube and right IJ hemodialysis catheter or unchanged as well. IMPRESSION: 1. Markedly improved perihilar pulmonary edema/infiltrates. 2. Persistent left medial lung base atelectasis or infiltrate. Electronically signed by: Javier Dan MD (09/11/2018 2:40 PM) [id number]
[2018-09-11 15:17] VITALS: BP 166/97
[2018-09-11 19:16] VITALS: BP 131/51
[2018-09-11] MEDS: FAMOTIDINE 20 MG/2 ML VIAL IVP SCH (19:56)
[2018-09-11 23:25] VITALS: BP 161/87
[2018-09-12] MEDS: fentaNYL PF VIAL 100 MCG/2 ML VIAL IV PRN (02:57)
[2018-09-12 03:30] LABS: BASO # 0.2 x10^3/uL (0.0-0.2); BASO % 2 % (0-3); EOS # 0.3 x10^3/uL (0.0-0.7); EOS % 3 % (0-3); HEMATOCRIT 21.5 % (39.0-53.0); HEMOGLOBIN 7.5 g/dL (13.0-17.5); LYMPH % 33 % (24-48); MEAN CORPUSCULAR HEMOGLOBIN 30 pg (25-35); MEAN CORPUSCULAR HGB CONC 35 g/dL (31-37); MEAN CORPUSCULAR VOLUME 87 fL (79-100); MONO # 1.3 x10^3/uL (0.0-1.1); MONO % 14 % (0-9); NEUT # 4.4 x10^3uL (1.8-7.7); NEUT % 48 % (31-73); PLATELET COUNT 347 x10^3/uL (140-400); RED BLOOD COUNT 2.47 x10^6/uL (4.30-5.70); RED CELL DISTRIBUTION WIDTH 19.3 % (11.5-14.5); WHITE BLOOD COUNT 9.2 x10^3/uL (4.0-11.0)
[2018-09-12 03:51] VITALS: BP 146/84
[2018-09-12 03:52] LABS: ALBUMIN/GLOBULIN RATIO 0.4 (1.0-1.7); CREATININE 9.6 mg/dL (0.7-1.3); GFR 5.7; POTASSIUM 4.1 mmol/L (3.5-5.1); TOTAL BILIRUBIN 0.7 mg/dL (0.2-1.0); TOTAL PROTEIN 6.7 g/dL (6.4-8.2)
[2018-09-12 04:38] VITALS: BP 146/89
[2018-09-12 07:00] VITALS: BP 154/91
[2018-09-12] MEDS: IPRATRPIUM/ALBUTEROL 0.5/2.5MG 3 ML NEBU. NEB SCH ×4 (07:31→21:13)
[2018-09-12] MEDS ORDERED: IV NORMAL SALINE 1000ML BAG 1,000 ML IV PRN ×2 (08:00)
--- NOTE | 2018-09-12 08:45 | PDOC ---
PULMONARY PROGRESS NOTES Subjective patient at times confused, pulled out Dobhoff tube, pulled out catheter. not SOA Vitals Vital Signs Date Time Temp Pulse Resp B/P (MAP) Pulse Ox O2 Delivery O2 Flow Rate FiO2 09/12/18 07:32 97 Nasal Cannula 2.0 09/12/18 07:00 98.2 78 17 154/91 (112) 98.2 General: Alert, No acute distress Lungs: Clear Cardiovascular: S1, S2 Abdomen: Soft, Non-tender, Other (no mass) Extremities: Other (1+edema) Skin: Warm Labs Laboratory Tests Test 09/11/18 03:25 09/12/18 03:20 White Blood Count 8.8 x10^3/uL (4.0-11.0) 9.2 x10^3/uL (4.0-11.0) Red Blood Count 2.56 x10^6/uL (4.30-5.70) 2.47 x10^6/uL (4.30-5.70) Hemoglobin 7.6 g/dL (13.0-17.5) 7.5 g/dL (13.0-17.5) Hematocrit 22.2 % (39.0-53.0) 21.5 % (39.0-53.0) Mean Corpuscular Volume 87 fL (79-100) 87 fL (79-100) Mean Corpuscular Hemoglobin 30 pg (25-35) 30 pg (25-35) Mean Corpuscular Hemoglobin Concent 34 g/dL (31-37) 35 g/dL (31-37) Red Cell Distribution Width 19.4 % (11.5-14.5) 19.3 % (11.5-14.5) Platelet Count 379 x10^3/uL (140-400) 347 x10^3/uL (140-400) Neutrophils (%) (Auto) 50 % (31-73) 48 % (31-73) Lymphocytes (%) (Auto) 31 % (24-48) 33 % (24-48) Monocytes (%) (Auto) 16 % (0-9) 14 % (0-9) Eosinophils (%) (Auto) 2 % (0-3) 3 % (0-3) Basophils (%) (Auto) 1 % (0-3) 2 % (0-3) Neutrophils # (Auto) 4.4 x10^3uL (1.8-7.7) 4.4 x10^3uL (1.8-7.7) Lymphocytes # (Auto) 2.7 x10^3/uL (1.0-4.8) 3.0 x10^3/uL (1.0-4.8) Monocytes # (Auto) 1.4 x10^3/uL (0.0-1.1) 1.3 x10^3/uL (0.0-1.1) Eosinophils # (Auto) 0.2 x10^3/uL (0.0-0.7) 0.3 x10^3/uL (0.0-0.7) Basophils # (Auto) 0.1 x10^3/uL (0.0-0.2) 0.2 x10^3/uL (0.0-0.2) Sodium Level 137 mmol/L (136-145) 137 mmol/L (136-145) Potassium Level 4.1 mmol/L (3.5-5.1) 4.1 mmol/L (3.5-5.1) Chloride Level 96 mmol/L (98-107) 96 mmol/L (98-107) Carbon Dioxide Level 26 mmol/L (21-32) 23 mmol/L (21-32) Anion Gap 15 (6-14) 18 (6-14) Blood Urea Nitrogen 65 mg/dL (8-26) 87 mg/dL (8-26) Creatinine 7.3 mg/dL (0.7-1.3) 9.6 mg/dL (0.7-1.3) Estimated GFR (Cockcroft-Gault) 7.9 5.7 BUN/Creatinine Ratio 9 (6-20) 9 (6-20) Glucose Level 113 mg/dL (70-99) 110 mg/dL (70-99) Calcium Level 8.0 mg/dL (8.5-10.1) 8.0 mg/dL (8.5-10.1) Total Bilirubin 0.8 mg/dL (0.2-1.0) 0.7 mg/dL (0.2-1.0) Aspartate Amino Transf (AST/SGOT) 45 U/L (15-37) 41 U/L (15-37) Alanine Aminotransferase (ALT/SGPT) 43 U/L (16-63) 43 U/L (16-63) Alkaline Phosphatase 104 U/L (46-116) 90 U/L (46-116) Total Protein 7.1 g/dL (6.4-8.2) 6.7 g/dL (6.4-8.2) Albumin 2.1 g/dL (3.4-5.0) 2.0 g/dL (3.4-5.0) Albumin/Globulin Ratio 0.4 (1.0-1.7) 0.4 (1.0-1.7) Laboratory Tests Test 09/12/18 03:20 White Blood Count 9.2 x10^3/uL (4.0-11.0) Red Blood Count 2.47 x10^6/uL (4.30-5.70) Hemoglobin 7.5 g/dL (13.0-17.5) Hematocrit 21.5 % (39.0-53.0) Mean Corpuscular Volume 87 fL (79-100) Mean Corpuscular Hemoglobin 30 pg (25-35) Mean Corpuscular Hemoglobin Concent 35 g/dL (31-37) Red Cell Distribution Width 19.3 % (11.5-14.5) Platelet Count 347 x10^3/uL (140-400) Neutrophils (%) (Auto) 48 % (31-73) Lymphocytes (%) (Auto) 33 % (24-48) Monocytes (%) (Auto) 14 % (0-9) Eosinophils (%) (Auto) 3 % (0-3) Basophils (%) (Auto) 2 % (0-3) Neutrophils # (Auto) 4.4 x10^3uL (1.8-7.7) Lymphocytes # (Auto) 3.0 x10^3/uL (1.0-4.8) Monocytes # (Auto) 1.3 x10^3/uL (0.0-1.1) Eosinophils # (Auto) 0.3 x10^3/uL (0.0-0.7) Basophils # (Auto) 0.2 x10^3/uL (0.0-0.2) Sodium Level 137 mmol/L (136-145) Potassium Level 4.1 mmol/L (3.5-5.1) Chloride Level 96 mmol/L (98-107) Carbon Dioxide Level 23 mmol/L (21-32) Anion Gap 18 (6-14) Blood Urea Nitrogen 87 mg/dL (8-26) Creatinine 9.6 mg/dL (0.7-1.3) Estimated GFR (Cockcroft-Gault) 5.7 BUN/Creatinine Ratio 9 (6-20) Glucose Level 110 mg/dL (70-99) Calcium Level 8.0 mg/dL (8.5-10.1) Total Bilirubin 0.7 mg/dL (0.2-1.0) Aspartate Amino Transf (AST/SGOT) 41 U/L (15-37) Alanine Aminotransferase (ALT/SGPT) 43 U/L (16-63) Alkaline Phosphatase 90 U/L (46-116) Total Protein 6.7 g/dL (6.4-8.2) Albumin 2.0 g/dL (3.4-5.0) Albumin/Globulin Ratio 0.4 (1.0-1.7) Medications Active Scripts Medications Dose Route/Sig Max Daily Dose Days Date Category Prednisone 20 Mg Tablet 1 Tab PO DAILY 08/26/18 Reported Hydrochlorothiazide Tablet (Hydrochlorothiazide) 12.5 Mg Tablet 12.5 Mg PO DAILY 08/26/18 Reported Shilpi Allergy (Fexofenadine Hcl) 180 Mg Tablet 1 Tab PO DAILY 08/26/18 Reported Potassium Chloride 20 Meq Tablet.er 20 Meq PO DAILY 08/24/18 Rx Orphenadrine Citrate 100 Mg Tablet.er 100 Mg PO Q12HR 02/03/16 Rx Anaprox Ds (Naproxen Sodium) 550 Mg Tablet 550 Mg PO Q12HR 02/03/16 Rx Impression . IMPRESSION: 1. Acute hypoxemic respiratory failure, multifactorial due to encephalopathy from suspected [employer] infection/ acute lung injury from recent infection. EXTUBATED 09/08 2. 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 Fever. RESOLVED 4. Lactic acidosis. 5. Acute renal failure. 6. Acute hepatic injury. 7. Thrombocytopenia, improving. 8. Hemochromatosis. 9. ACUTE TOXIC MET ENCEPH POA 10 DYSPHAGIA 11.ENCEPHALITIS 12. FUNGEMIA 13. ANEMIA Plan . we placed Dobbhoff hemodialysis catheter in the frolic G follow ID input ANISH DENNIS MD Sep 12, 2018 08:45
[2018-09-12] MEDS: amLODIPine BESYLATE 5 MG TABLET PO SCH (09:00)
--- NOTE | 2018-09-12 09:03 | PDOC ---
Infectious Disease Note Subjective Subjective Doing well. Brian any F/C/S/DIAL/SOA/N denies a lot of stool Tolerated HD cath placement Vital Sign Vital Signs Vital Signs Date Time Temp Pulse Resp B/P (MAP) Pulse Ox O2 Delivery O2 Flow Rate FiO2 09/12/18 07:32 97 Nasal Cannula 2.0 09/12/18 07:00 98.2 78 17 154/91 (112) 98.2 Physical Exam PHYSICAL EXAM GENERAL: Awake, calm, NAD - looks well HEENT: Pupils equal, oral cavity dry NECK: Supple. LUNGS: Clear anteriorly HEART: S1 and S2. regular ABDOMEN: + distention but less, : Waters in place EXTREMITIES: No gross edema, no cyanosis. NEUROLOGIC: Awake, and alert looks really well PIV. R neck HD cath Labs Lab Laboratory Tests Test 09/12/18 03:20 White Blood Count 9.2 x10^3/uL (4.0-11.0) Red Blood Count 2.47 x10^6/uL (4.30-5.70) Hemoglobin 7.5 g/dL (13.0-17.5) Hematocrit 21.5 % (39.0-53.0) Mean Corpuscular Volume 87 fL (79-100) Mean Corpuscular Hemoglobin 30 pg (25-35) Mean Corpuscular Hemoglobin Concent 35 g/dL (31-37) Red Cell Distribution Width 19.3 % (11.5-14.5) Platelet Count 347 x10^3/uL (140-400) Neutrophils (%) (Auto) 48 % (31-73) Lymphocytes (%) (Auto) 33 % (24-48) Monocytes (%) (Auto) 14 % (0-9) Eosinophils (%) (Auto) 3 % (0-3) Basophils (%) (Auto) 2 % (0-3) Neutrophils # (Auto) 4.4 x10^3uL (1.8-7.7) Lymphocytes # (Auto) 3.0 x10^3/uL (1.0-4.8) Monocytes # (Auto) 1.3 x10^3/uL (0.0-1.1) Eosinophils # (Auto) 0.3 x10^3/uL (0.0-0.7) Basophils # (Auto) 0.2 x10^3/uL (0.0-0.2) Sodium Level 137 mmol/L (136-145) Potassium Level 4.1 mmol/L (3.5-5.1) Chloride Level 96 mmol/L (98-107) Carbon Dioxide Level 23 mmol/L (21-32) Anion Gap 18 (6-14) Blood Urea Nitrogen 87 mg/dL (8-26) Creatinine 9.6 mg/dL (0.7-1.3) Estimated GFR (Cockcroft-Gault) 5.7 BUN/Creatinine Ratio 9 (6-20) Glucose Level 110 mg/dL (70-99) Calcium Level 8.0 mg/dL (8.5-10.1) Total Bilirubin 0.7 mg/dL (0.2-1.0) Aspartate Amino Transf (AST/SGOT) 41 U/L (15-37) Alanine Aminotransferase (ALT/SGPT) 43 U/L (16-63) Alkaline Phosphatase 90 U/L (46-116) Total Protein 6.7 g/dL (6.4-8.2) Albumin 2.0 g/dL (3.4-5.0) Albumin/Globulin Ratio 0.4 (1.0-1.7) Micro Microbiology 09/08/18 Blood Culture - Preliminary, Resulted NO GROWTH AFTER 2 DAYS 08/29/18 CSF Gram Stain - Final, Complete 08/27/18 Stool Culture - Final, Complete 08/27/18 Stool Culture Result 1 (LOTUS) - Final, Complete 08/27/18 Campylobacter Antigen Assay - Final, Complete 08/27/18 Campylobactor Result 1 - Final, Complete 08/27/18 Shiga Toxin Test - Final, Complete 09/05/18 - Final, Complete 09/05/18 - Final, Complete 09/05/18 - Final, Complete 09/05/18 Gram Stain Evaluation - Final, Complete 09/05/18 Sputum Culture - Final, Complete 09/05/18 Sputum Result 1 - Final, Complete 09/04/18 Urine Culture - Final, Complete 09/04/18 Urine Culture Result 1 (LOTUS) - Final, Complete Objective Assessment Fever - times one - muchbetter Fungemia from 09/04 1/2 bottles. ID/LOTUS pending; repeat BC 09/08 neg so far -Lines have been removed Recurrent fever, 09/04, better Diarrhea, C. diff PCR neg Leukocytosis - ? 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 MRI neg -CSF pleocytosis, cultures and serologies negative - HIV neg -[place] IgG +, IgM neg, old exposure -HSV PCR neg -Arboviral panel not available -Enteroviral pcr not available RADHA (Recent Bactrim/ibuprofen), on HD Anemia - s/p PRBCs / Hemochromatosis, followed by [facility] Plan Plan of Care Dosed Dapto and Cefepime 09/11 with fever S/p HD cath 09/10 F/u Parvo Cont micafungin await yeast ID Repeat BC 09/08 neg so far Monitor labs/temp Supportive care D/w nursing LICO GRACE MD Sep 12, 2018 09:03
--- NOTE | 2018-09-12 09:47 | PDOC ---
SUBJECTIVE ROS States feeling much better OBJECTIVE Vital Signs Vital Signs Date Time Temp Pulse Resp B/P (MAP) Pulse Ox O2 Delivery O2 Flow Rate FiO2 09/12/18 07:32 97 Nasal Cannula 2.0 09/12/18 07:00 98.2 78 17 154/91 (112) 98.2 I & 0 Intake and Output 09/12/18 06:59 Intake Total 700 ml Output Total 250 ml Balance 450 ml Intake Oral 0 ml Tube Feeding 700 ml Output Urine Total 250 ml # Bowel Movements 1 PHYSICAL EXAM Physical Exam GENERAL: Awake, On o2, HEENT: On O2 by NC NECK: Supple. LUNGS: Clear anteriorly HEART: S1 and S2. regular ABDOMEN: soft, Rectal tube in place : Waters in place EXTREMITIES: no edema SKIN: Warm NEUROLOGIC: Awake, DIAGNOSIS/ASSESSMENT Assessment & Plan RADHA/ATN- Requiring HD , currently on MWF Dialysis cath was removed on09/07 , replaced on 09/10 with temp catheter will need Perm Dialysis cath prior to dc when approved by ID Continue Monitoring for renal recovery Seen on HD, tolerating well, continue as ordered,Scot Ching Fungemia from 09/04. 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 negative for ehrlichia -RMSF neg, Encephalopathy waxing and waning etiology unclear MRI neg Anemia - Hg stable < 8 On JANINA Hemochromatosis, followed by [facility] COM[facility]/RELEVANT DATA Meds Current Medications Medications (Trade) Dose Ordered Sig/Noemi Start Time Stop Time Status Last Admin Dose Admin Acetaminophen (Tylenol Supp) 650 mg PRN Q6HRS PRN 08/27/18 21:15 09/02/18 01:18 650 MG Acetaminophen (Tylenol) 650 mg PRN Q6HRS PRN 08/27/18 21:15 Acyclovir Sodium 340 mg/Dextrose 106.8 ml @ 106.8 mls/ hr Q12HR 08/30/18 09:00 09/01/18 13:37 DC 09/01/18 11:05 106.8 MLS/HR Albumin Human 200 ml @ 200 mls/hr 1X PRN PRN 09/04/18 08:30 09/04/18 14:29 DC Albuterol/ Ipratropium (Duoneb) 3 ml 1X ONCE 09/01/18 01:00 09/01/18 01:01 DC 09/01/18 01:10 3 ML Amlodipine Besylate (Norvasc) 2.5 mg DAILY 09/11/18 11:00 09/11/18 11:55 2.5 MG Atropine Sulfate (ATROPINE 0.5mg SYRINGE) 0.5 mg PRN Q5MIN PRN 09/06/18 11:00 Atropine Sulfate (ATROPINE 1mg SYRINGE) 1 mg STK-MED ONCE 08/31/18 22:58 08/31/18 22:59 DC Aztreonam (Azactam) 2 gm 1X ONCE 08/25/18 21:15 08/25/18 21:16 DC 08/25/18 21:15 2 GM Benzocaine (Hurricaine One) 1 spray 1X STAT 08/28/18 10:16 08/28/18 10:19 DC 08/28/18 10:16 1 SPRAY Cefepime HCl (Maxipime) 1 gm Q24H 09/11/18 11:00 09/11/18 11:53 1 GM Ceftriaxone Sodium (Rocephin) 1 gm 1X ONCE 08/25/18 20:30 08/25/18 20:31 DC 08/25/18 20:36 1 GM Chlorhexidine Gluconate (Peridex) 15 ml BID 09/01/18 09:00 09/08/18 08:04 DC 09/07/18 21:21 15 ML Daptomycin 610 mg/ Sodium Chloride 50 ml @ 100 mls/hr Q48H 08/30/18 16:00 08/30/18 16:00 DC Daptomycin 640 mg/ Sodium Chloride 50 ml @ 100 mls/hr ONCE ONCE 09/11/18 12:00 09/11/18 12:29 DC 09/11/18 12:41 100 MLS/HR Darbepoetin Phil (Aranesp) 100 mcg WEEKLYHS 09/03/18 21:00 09/10/18 21:35 100 MCG Dexmedetomidine HCl 200 mcg/ Sodium Chloride 50 ml @ 0 mls/hr CONT PRN 09/06/18 11:00 09/08/18 08:03 DC Diphenhydramine HCl (Benadryl) 25 mg 1X PRN PRN 09/10/18 13:30 09/11/18 13:29 DC Doxycycline Hyclate 100 mg/ Dextrose 100 ml @ 50 mls/hr Q12HR 08/26/18 09:00 09/04/18 08:11 DC 09/03/18 22:11 50 MLS/HR Epinephrine HCl (EPINEPHrine SYRINGE) 3 mg STK-MED ONCE 08/31/18 08:06 09/04/18 08:07 DC Famotidine (Pepcid Vial) 20 mg Q48H 09/03/18 21:00 09/11/18 19:56 20 MG Famotidine (Pepcid) 20 mg Q48H 08/29/18 09:00 08/29/18 11:29 DC Fentanyl Citrate (Fentanyl 2ml Vial) 25 mcg PRN Q2HR PRN 09/06/18 11:00 09/12/18 02:57 25 MCG Haloperidol (Haldol) 2 mg PRN QID PRN 08/31/18 08:00 08/31/18 12:43 DC Haloperidol Lactate (HALDOL 2mg ORAL CONC) 2 mg PRN QID PRN 08/31/18 12:43 Haloperidol Lactate (Haldol Inj) 5 mg PRN Q6HRS PRN 08/28/18 12:00 09/06/18 05:53 5 MG Heparin Sodium (Porcine) (Heparin Sodium) 10,000 unit STK-MED ONCE 09/10/18 09:37 09/11/18 17:41 DC Ibuprofen (Motrin) 600 mg 1X ONCE 08/25/18 19:45 08/25/18 19:49 DC 08/25/18 20:38 600 MG Info (PHARMACY MONITORING -- do not chart) 1 each PRN DAILY PRN 09/10/18 13:30 Info (Tpn Per Pharmacy) 1 each PRN DAILY PRN 08/30/18 12:45 09/04/18 12:50 DC 09/03/18 10:53 1 EACH Lactobacillus Rhamnosus (Culturelle) 1 cap BID 08/26/18 21:00 09/08/18 10:55 DC 09/08/18 09:34 1 CAP Levofloxacin/ Dextrose 150 ml @ 100 mls/hr QODAY 09/04/18 09:00 09/07/18 07:52 DC 09/06/18 10:28 100 MLS/HR Lidocaine HCl (Glydo (Lidocaine) Jelly) 1 meng 1X STAT 08/28/18 10:16 08/28/18 10:19 DC 08/28/18 10:16 1 MENG Lidocaine/Sodium Bicarbonate (Buffered Lidocaine 1%) 3 ml STK-MED ONCE 09/10/18 09:37 09/11/18 17:41 DC Linezolid/Dextrose 300 ml @ 300 mls/hr Q12HR 09/05/18 09:30 09/10/18 07:34 DC 09/09/18 21:21 300 MLS/HR Magnesium Sulfate 50 ml @ 25 mls/hr 1X ONCE 08/25/18 21:15 08/25/18 23:14 DC 08/25/18 23:51 25 MLS/HR Meropenem 500 mg/ Sodium Chloride 50 ml @ 100 mls/hr DAILY 08/26/18 09:00 08/30/18 08:17 DC 08/29/18 10:13 100 MLS/HR Micafungin Sodium 100 mg/Dextrose 100 ml @ 100 mls/hr Q24H 09/07/18 08:30 09/11/18 09:23 100 MLS/HR Midazolam HCl 100 ml @ 0 mls/hr CONT PRN 09/01/18 00:00 09/08/18 11:30 DC Norepinephrine Bitartrate 250 ml @ 0 mls/hr CONT PRN 08/26/18 09:15 08/30/18 17:20 DC 08/27/18 10:21 1.88 MLS/HR Ondansetron HCl (Zofran) 4 mg PRN Q6HRS PRN 08/31/18 08:00 Piperacillin Sod/ Tazobactam Sod 2.25 gm/Sodium Chloride 50 ml @ 100 mls/hr Q6HRS 09/01/18 14:00 09/11/18 09:29 DC 09/11/18 05:19 100 MLS/HR Piperacillin Sod/ Tazobactam Sod 4.5 gm/Sodium Chloride 100 ml @ 200 mls/hr 1X ONCE 08/25/18 21:15 08/25/18 21:44 DC Propofol 100 ml @ 0 mls/hr CONT PRN 09/01/18 00:00 09/06/18 10:59 DC 09/06/18 08:14 6.135 MLS/HR Sodium Bicarbonate (Sodium Bicarb Adult 8.4% Syr) 100 meq STK-MED ONCE 08/31/18 08:06 09/04/18 08:07 DC Sodium Chloride 1,000 ml @ 400 mls/hr Q2H30M PRN 09/10/18 13:19 09/11/18 01:18 DC Sodium Chloride (Normal Saline Flush) 10 ml 1X PRN PRN 09/05/18 09:00 09/06/18 08:59 DC Sodium Chloride 90 meq/Potassium Chloride 50 meq/ Potassium Phosphate 10 mmol/ Calcium Gluconate 10 meq/ Multivitamins 10 ml/Chromium/ Copper/Manganese/ Seleni/Zn 1 ml/ Total Parenteral Nutrition/Amino Acids/Dextrose 1,512 ml @ 63 mls/hr TPN CONT 09/01/18 22:00 09/02/18 21:59 DC 09/01/18 22:11 63 MLS/HR Sodium Chloride 90 meq/Potassium Chloride 50 meq/ Potassium Phosphate 3 mmol/ Magnesium Sulfate 10 meq/Calcium Gluconate 10 meq/ Multivitamins 10 ml/Chromium/ Copper/Manganese/ Seleni/Zn 1 ml/ Total Parenteral Nutrition/Amino Acids/Dextrose/ Fat Emulsion Intravenous 1,512 ml @ 63 mls/hr TPN CONT 08/30/18 22:00 08/31/18 21:59 DC 08/30/18 21:40 63 MLS/HR Sodium Chloride 90 meq/Potassium Chloride 50 meq/ Potassium Phosphate 5 mmol/ Magnesium Sulfate 3 meq/Calcium Gluconate 10 meq/ Multivitamins 10 ml/Chromium/ Copper/Manganese/ Seleni/Zn 1 ml/ Total Parenteral Nutrition/Amino Acids/Dextrose 1,512 ml @ 63 mls/hr TPN CONT 08/31/18 22:00 09/01/18 21:59 DC 08/31/18 20:59 63 MLS/HR Sodium Chloride 110 meq/Potassium Chloride 50 meq/ Potassium Phosphate 10 mmol/ Calcium Gluconate 10 meq/ Multivitamins 10 ml/Chromium/ Copper/Manganese/ Seleni/Zn 1 ml/ Magnesium Sulfate 3 meq/Total Parenteral Nutrition/Amino Acids/Dextrose 1,512 ml @ 63 mls/hr TPN CONT 09/02/18 22:00 09/03/18 21:59 DC 09/02/18 22:13 63 MLS/HR Sodium Chloride 130 meq/Potassium Acetate 20 meq/ Calcium Gluconate 10 meq/ Multivitamins 10 ml/Chromium/ Copper/Manganese/ Seleni/Zn 1 ml/ Magnesium Sulfate 3 meq/Total Parenteral Nutrition/Amino Acids/Dextrose 1,512 ml @ 63 mls/hr TPN CONT 09/03/18 22:00 09/04/18 21:59 DC 09/03/18 22:12 63 MLS/HR Succinylcholine Chloride (Anectine) 200 mg 1X ONCE 09/01/18 01:15 09/01/18 01:16 DC 08/31/18 23:04 200 MG Vancomycin HCl 2 gm/Sodium Chloride 500 ml @ 250 mls/hr 1X ONCE 08/25/18 21:30 08/25/18 23:29 DC 08/25/18 23:10 250 MLS/HR Lab Laboratory Tests Test 09/12/18 03:20 White Blood Count 9.2 x10^3/uL (4.0-11.0) Red Blood Count 2.47 x10^6/uL (4.30-5.70) Hemoglobin 7.5 g/dL (13.0-17.5) Hematocrit 21.5 % (39.0-53.0) Mean Corpuscular Volume 87 fL (79-100) Mean Corpuscular Hemoglobin 30 pg (25-35) Mean Corpuscular Hemoglobin Concent 35 g/dL (31-37) Red Cell Distribution Width 19.3 % (11.5-14.5) Platelet Count 347 x10^3/uL (140-400) Neutrophils (%) (Auto) 48 % (31-73) Lymphocytes (%) (Auto) 33 % (24-48) Monocytes (%) (Auto) 14 % (0-9) Eosinophils (%) (Auto) 3 % (0-3) Basophils (%) (Auto) 2 % (0-3) Neutrophils # (Auto) 4.4 x10^3uL (1.8-7.7) Lymphocytes # (Auto) 3.0 x10^3/uL (1.0-4.8) Monocytes # (Auto) 1.3 x10^3/uL (0.0-1.1) Eosinophils # (Auto) 0.3 x10^3/uL (0.0-0.7) Basophils # (Auto) 0.2 x10^3/uL (0.0-0.2) Sodium Level 137 mmol/L (136-145) Potassium Level 4.1 mmol/L (3.5-5.1) Chloride Level 96 mmol/L (98-107) Carbon Dioxide Level 23 mmol/L (21-32) Anion Gap 18 (6-14) Blood Urea Nitrogen 87 mg/dL (8-26) Creatinine 9.6 mg/dL (0.7-1.3) Estimated GFR (Cockcroft-Gault) 5.7 BUN/Creatinine Ratio 9 (6-20) Glucose Level 110 mg/dL (70-99) Calcium Level 8.0 mg/dL (8.5-10.1) Total Bilirubin 0.7 mg/dL (0.2-1.0) Aspartate Amino Transf (AST/SGOT) 41 U/L (15-37) Alanine Aminotransferase (ALT/SGPT) 43 U/L (16-63) Alkaline Phosphatase 90 U/L (46-116) Total Protein 6.7 g/dL (6.4-8.2) Albumin 2.0 g/dL (3.4-5.0) Albumin/Globulin Ratio 0.4 (1.0-1.7) Results All relevant outside records, renal labs, imaging studies, telemetry/EKG's were reviewed. OG CHAVES MD Sep 12, 2018 09:47
--- NOTE | 2018-09-12 11:13 | NUR ---
SW following pt. Spoke with Michelle and pt is 3rd on their list for admission today. Will continue to follow.
--- NOTE | 2018-09-12 11:50 | PDOC ---
PROGRESS NOTES Assessment Problems Medical Problems: (1) Acute renal failure Status: Acute Metabolic encephalopathy, much better. 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 Hold on repeating lumbar puncture, given improvement Subjective No complaints Objective Vital Signs Date Time Temp Pulse Resp B/P (MAP) Pulse Ox O2 Delivery O2 Flow Rate FiO2 09/12/18 07:32 97 Nasal Cannula 2.0 09/12/18 07:00 98.2 78 17 154/91 (112) 98.2 Intake and Output 09/12/18 06:59 Intake Total 700 ml Output Total 250 ml Balance 450 ml Intake Oral 0 ml Tube Feeding 700 ml Output Urine Total 250 ml # Bowel Movements 1 PHYSICAL EXAM Alert, knows name of hospital, not date, speech fluent, follows commands PERRL. EOMI. CN: no focal findings. Muscle tone: normal. Muscle strength: 4/5 DTR: 1+ Plantar reflex: silent Gait: not examined in bed. Sensory exam: no abnormal findings. No cerebellar signs elicited. Review of Relevant I have reviewed the following items gera (where applicable) has been applied. Labs Laboratory Tests Test 09/11/18 03:25 09/12/18 03:20 White Blood Count 8.8 x10^3/uL (4.0-11.0) 9.2 x10^3/uL (4.0-11.0) Red Blood Count 2.56 x10^6/uL (4.30-5.70) 2.47 x10^6/uL (4.30-5.70) Hemoglobin 7.6 g/dL (13.0-17.5) 7.5 g/dL (13.0-17.5) Hematocrit 22.2 % (39.0-53.0) 21.5 % (39.0-53.0) Mean Corpuscular Volume 87 fL (79-100) 87 fL (79-100) Mean Corpuscular Hemoglobin 30 pg (25-35) 30 pg (25-35) Mean Corpuscular Hemoglobin Concent 34 g/dL (31-37) 35 g/dL (31-37) Red Cell Distribution Width 19.4 % (11.5-14.5) 19.3 % (11.5-14.5) Platelet Count 379 x10^3/uL (140-400) 347 x10^3/uL (140-400) Neutrophils (%) (Auto) 50 % (31-73) 48 % (31-73) Lymphocytes (%) (Auto) 31 % (24-48) 33 % (24-48) Monocytes (%) (Auto) 16 % (0-9) 14 % (0-9) Eosinophils (%) (Auto) 2 % (0-3) 3 % (0-3) Basophils (%) (Auto) 1 % (0-3) 2 % (0-3) Neutrophils # (Auto) 4.4 x10^3uL (1.8-7.7) 4.4 x10^3uL (1.8-7.7) Lymphocytes # (Auto) 2.7 x10^3/uL (1.0-4.8) 3.0 x10^3/uL (1.0-4.8) Monocytes # (Auto) 1.4 x10^3/uL (0.0-1.1) 1.3 x10^3/uL (0.0-1.1) Eosinophils # (Auto) 0.2 x10^3/uL (0.0-0.7) 0.3 x10^3/uL (0.0-0.7) Basophils # (Auto) 0.1 x10^3/uL (0.0-0.2) 0.2 x10^3/uL (0.0-0.2) Sodium Level 137 mmol/L (136-145) 137 mmol/L (136-145) Potassium Level 4.1 mmol/L (3.5-5.1) 4.1 mmol/L (3.5-5.1) Chloride Level 96 mmol/L (98-107) 96 mmol/L (98-107) Carbon Dioxide Level 26 mmol/L (21-32) 23 mmol/L (21-32) Anion Gap 15 (6-14) 18 (6-14) Blood Urea Nitrogen 65 mg/dL (8-26) 87 mg/dL (8-26) Creatinine 7.3 mg/dL (0.7-1.3) 9.6 mg/dL (0.7-1.3) Estimated GFR (Cockcroft-Gault) 7.9 5.7 BUN/Creatinine Ratio 9 (6-20) 9 (6-20) Glucose Level 113 mg/dL (70-99) 110 mg/dL (70-99) Calcium Level 8.0 mg/dL (8.5-10.1) 8.0 mg/dL (8.5-10.1) Total Bilirubin 0.8 mg/dL (0.2-1.0) 0.7 mg/dL (0.2-1.0) Aspartate Amino Transf (AST/SGOT) 45 U/L (15-37) 41 U/L (15-37) Alanine Aminotransferase (ALT/SGPT) 43 U/L (16-63) 43 U/L (16-63) Alkaline Phosphatase 104 U/L (46-116) 90 U/L (46-116) Total Protein 7.1 g/dL (6.4-8.2) 6.7 g/dL (6.4-8.2) Albumin 2.1 g/dL (3.4-5.0) 2.0 g/dL (3.4-5.0) Albumin/Globulin Ratio 0.4 (1.0-1.7) 0.4 (1.0-1.7) Laboratory Tests Test 09/12/18 03:20 White Blood Count 9.2 x10^3/uL (4.0-11.0) Red Blood Count 2.47 x10^6/uL (4.30-5.70) Hemoglobin 7.5 g/dL (13.0-17.5) Hematocrit 21.5 % (39.0-53.0) Mean Corpuscular Volume 87 fL (79-100) Mean Corpuscular Hemoglobin 30 pg (25-35) Mean Corpuscular Hemoglobin Concent 35 g/dL (31-37) Red Cell Distribution Width 19.3 % (11.5-14.5) Platelet Count 347 x10^3/uL (140-400) Neutrophils (%) (Auto) 48 % (31-73) Lymphocytes (%) (Auto) 33 % (24-48) Monocytes (%) (Auto) 14 % (0-9) Eosinophils (%) (Auto) 3 % (0-3) Basophils (%) (Auto) 2 % (0-3) Neutrophils # (Auto) 4.4 x10^3uL (1.8-7.7) Lymphocytes # (Auto) 3.0 x10^3/uL (1.0-4.8) Monocytes # (Auto) 1.3 x10^3/uL (0.0-1.1) Eosinophils # (Auto) 0.3 x10^3/uL (0.0-0.7) Basophils # (Auto) 0.2 x10^3/uL (0.0-0.2) Sodium Level 137 mmol/L (136-145) Potassium Level 4.1 mmol/L (3.5-5.1) Chloride Level 96 mmol/L (98-107) Carbon Dioxide Level 23 mmol/L (21-32) Anion Gap 18 (6-14) Blood Urea Nitrogen 87 mg/dL (8-26) Creatinine 9.6 mg/dL (0.7-1.3) Estimated GFR (Cockcroft-Gault) 5.7 BUN/Creatinine Ratio 9 (6-20) Glucose Level 110 mg/dL (70-99) Calcium Level 8.0 mg/dL (8.5-10.1) Total Bilirubin 0.7 mg/dL (0.2-1.0) Aspartate Amino Transf (AST/SGOT) 41 U/L (15-37) Alanine Aminotransferase (ALT/SGPT) 43 U/L (16-63) Alkaline Phosphatase 90 U/L (46-116) Total Protein 6.7 g/dL (6.4-8.2) Albumin 2.0 g/dL (3.4-5.0) Albumin/Globulin Ratio 0.4 (1.0-1.7) Microbiology 09/08/18 Blood Culture - Preliminary, Resulted NO GROWTH AFTER 4 DAYS 08/29/18 CSF Gram Stain - Final, Complete 08/27/18 Stool Culture - Final, Complete 08/27/18 Stool Culture Result 1 (LOTUS) - Final, Complete 08/27/18 Campylobacter Antigen Assay - Final, Complete 08/27/18 Campylobactor Result 1 - Final, Complete 08/27/18 Shiga Toxin Test - Final, Complete 09/05/18 - Final, Complete 09/05/18 - Final, Complete 09/05/18 - Final, Complete 09/05/18 Gram Stain Evaluation - Final, Complete 09/05/18 Sputum Culture - Final, Complete 09/05/18 Sputum Result 1 - Final, Complete 09/04/18 Urine Culture - Final, Complete 09/04/18 Urine Culture Result 1 (LOTUS) - Final, Complete Medications Current Medications Sodium Chloride 1,000 ml @ 1,000 mls/hr 1X ONCE IV Last administered on 08/25/18 20:38; Start 08/25/18 at 19:15; Stop 08/25/18 at 20:14; Status DC Ibuprofen (Motrin) 600 mg 1X ONCE PO Last administered on 08/25/18at 20:38; Start 08/25/18 at 19:45; Stop 08/25/18 at 19:49; Status DC Sodium Chloride 1,000 ml @ 1,000 mls/hr 1X ONCE IV Last administered on 08/25/18at 20:30; Start 08/25/18 at 20:30; Stop 08/25/18 at 21:29; Status DC Ceftriaxone Sodium (Rocephin) 1 gm 1X ONCE IVP Last administered on 08/25/18at 20:36; Start 08/25/18 at 20:30; Stop 08/25/18 at 20:31; Status DC Vancomycin HCl 2 gm/Sodium Chloride 500 ml @ 250 mls/hr 1X ONCE IV Last administered on 08/25/18at 23:10; Start 08/25/18 at 21:30; Stop 08/25/18 at 23:29; Status DC Sodium Chloride 1,000 ml @ 1,000 mls/hr 1X ONCE IV Last administered on 08/25/18at 23:51; Start 08/25/18 at 21:00; Stop 08/25/18 at 21:59; Status DC Piperacillin Sod/ Tazobactam Sod 4.5 gm/Sodium Chloride 100 ml @ 200 mls/hr 1X ONCE IV ; Start 08/25/18 at 21:15; Stop 08/25/18 at 21:44; Status DC Aztreonam (Azactam) 2 gm 1X ONCE IVP Last administered on 08/25/18at 21:15; Start 08/25/18 at 21:15; Stop 08/25/18 at 21:16; Status DC Magnesium Sulfate 50 ml @ 25 mls/hr 1X ONCE IV Last administered on 08/25/18at 23:51; Start 08/25/18 at 21:15; Stop 08/25/18 at 23:14; Status DC Ondansetron HCl (Zofran) 4 mg PRN Q8HRS PRN IV NAUSEA/VOMITING; Start 08/25/18 at 21:15; Stop 08/26/18 at 21:14; Status DC Acetaminophen (Tylenol) 650 mg PRN Q4HRS PRN PO FEVER; Start 08/25/18 at 21:15; Stop 08/26/18 at 21:14; Status DC Sodium Chloride 1,000 ml @ 125 mls/hr 1X ONCE IV Last administered on 08/25/18at 23:09; Start 08/25/18 at 21:15; Stop 08/26/18 at 05:14; Status DC Daptomycin 610 mg/ Sodium Chloride 50 ml @ 100 mls/hr QODAY IV Last administ ered on 08/27/18at 08:59; Start 08/27/18 at 09:00; Stop 08/28/18 at 15:40; Status DC Meropenem 500 mg/ Sodium Chloride 50 ml @ 100 mls/hr 1X ONCE IV Last administered on 08/25/18at 22:12; Start 08/25/18 at 22:00; Stop 08/25/18 at 22:29; Status DC Doxycycline Hyclate 100 mg/ Dextrose 100 ml @ 50 mls/hr Q12HR IV Last administered on 09/03/18at 22:11; Start 08/26/18 at 09:00; Stop 09/04/18 at 08:11; Status DC Meropenem 500 mg/ Sodium Chloride 50 ml @ 100 mls/hr DAILY IV Last administered on 08/29/18at 10:13; Start 08/26/18 at 09:00; Stop 08/30/18 at 08:17; Status DC Sodium Chloride (Normal Saline Flush) 10 ml QSHIFT PRN IV AFTER MEDS AND BLOOD DRAWS; Start 08/26/18 at 09:15 Norepinephrine Bitartrate 250 ml @ 0 mls/hr CONT PRN IV PER PROTOCOL Last admin istered on 5/20/19at 10:21; Start 08/26/18 at 09:15; Stop 08/30/18 at 17:20; Status DC Famotidine (Pepcid) 20 mg DAILY PO Last administered on 08/27/18at 08:14; Start 08/26/18 at 12:00; Stop 08/27/18 at 14:36; Status DC Sodium Chloride 1,000 ml @ 1,000 mls/hr Q1H PRN IV hypotension; Start 08/26/18 at 11:51; Stop 08/26/18 at 17:50; Status DC Sodium Chloride (Normal Saline Flush) 10 ml 1X PRN PRN IV AP catheter pack; Start 08/26/18 at 12:00; Stop 08/27/18 at 11:59; Status DC Sodium Chloride (Normal Saline Flush) 10 ml 1X PRN PRN IV 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; Start 08/26/18 at 12:00; Stop 08/27/18 at 11:59; Status DC Sodium Chloride 1,000 ml @ 400 mls/hr Q2H30M PRN IV PATENCY; Start 08/26/18 at 11:51; Stop 08/26/18 at 23:50; Status DC Info (PHARMACY MONITORING -- do not chart) 1 each PRN DAILY PRN MC SEE COMMENTS; Start 08/26/18 at 12:00; Status UNV Info (PHARMACY MONITORING -- do not chart) 1 each PRN DAILY PRN MC SEE COMMENTS; Start 08/26/18 at 12:00; Stop 09/01/18 at 10:59; Status DC Lidocaine/Sodium Bicarbonate (Buffered Lidocaine 1%) 4 ml 1X ONCE INJ Last administered on 08/26/18at 12:45; Start 08/26/18 at 12:45; Stop 08/26/18 at 12:48; Status DC Heparin Sodium (Porcine) (Heparin Sodium) 2,500 unit 1X ONCE INT CAT Last administered on 08/26/18at 12:45; Start 08/26/18 at 12:45; Stop 08/26/18 at 12:48; Status DC Lidocaine/Sodium Bicarbonate (Buffered Lidocaine 1%) 3 ml STK-MED ONCE .ROUTE ; Start 08/26/18 at 12:49; Stop 08/26/18 at 12:50; Status DC Heparin Sodium (Porcine) (Heparin Sodium) 10,000 unit STK-MED ONCE .ROUTE ; Start 08/26/18 at 12:49; Stop 08/26/18 at 12:50; Status DC Lactobacillus Rhamnosus (Culturelle) 1 cap BID PO Last administered on 09/08/18at 09:34; Start 08/26/18 at 21:00; Stop 09/08/18 at 10:55; Status DC Acetaminophen (Tylenol) 325 mg STK-MED ONCE PO ; Start 08/27/18 at 00:43; Stop 08/27/18 at 00:44; Status DC Sodium Chloride 1,000 ml @ 1,000 mls/hr 1X ONCE IV Last administered on 08/27/18at 11:05; Start 08/27/18 at 10:30; Stop 08/27/18 at 11:29; Status DC Sodium Chloride 1,000 ml @ 1,000 mls/hr Q1H PRN IV hypotension; Start 08/27/18 at 11:28; Stop 08/27/18 at 17:27; Status DC Albumin Human 200 ml @ 200 mls/hr 1X PRN PRN IV Hypotension; Start 08/27/18 at 11:30; Stop 08/27/18 at 17:29; Status DC Sodium Chloride (Normal Saline Flush) 10 ml 1X PRN PRN IV AP catheter pack; Start 08/27/18 at 11:30; Stop 08/28/18 at 11:29; Status DC Sodium Chloride (Normal Saline Flush) 10 ml 1X PRN PRN IV 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; Start 08/27/18 at 11:30; Stop 08/28/18 at 11:29; Status DC Sodium Chloride 1,000 ml @ 400 mls/hr Q2H30M PRN IV PATENCY; Start 08/27/18 at 11:28; Stop 08/27/18 at 23:27; Status DC Info (PHARMACY MONITORING -- do not chart) 1 each PRN DAILY PRN MC SEE COMMENTS; Start 08/27/18 at 11:30; Status UNV Info (PHARMACY MONITORING -- do not chart) 1 each PRN DAILY PRN MC SEE COMMENTS; Start 08/27/18 at 11:30; Status UNV Famotidine (Pepcid) 20 mg Q48H PO ; Start 08/29/18 at 09:00; Stop 08/29/18 at 11:29; Status DC Acetaminophen (Tylenol) 650 mg PRN Q6HRS PRN PO mild pain/fever; Start 08/27/18 at 21:15 Acetaminophen (Tylenol Supp) 650 mg PRN Q6HRS PRN AL MILD PAIN / TEMP Last administered on 09/02/18at 01:18; Start 08/27/18 at 21:15 Fentanyl Citrate (Fentanyl 2ml Vial) 25 mcg 1X ONCE IV Last administered on 08/28/18at 08:54; Start 08/28/18 at 08:45; Stop 08/28/18 at 08:47; Status DC Lidocaine/Sodium Bicarbonate (Buffered Lidocaine 1%) 3 ml STK-MED ONCE .ROUTE ; Start 08/28/18 at 09:55; Stop 08/28/18 at 09:56; Status DC Lidocaine HCl (Glydo (Lidocaine) Jelly) 1 meng 1X STAT MM Last administered on 08/28/18at 10:16; Start 08/28/18 at 10:16; Stop 08/28/18 at 10:19; Status DC Benzocaine (Hurricaine One) 1 spray 1X STAT MM Last administered on 08/28/18at 10:16; Start 08/28/18 at 10:16; Stop 08/28/18 at 10:19; Status DC Lidocaine/Sodium Bicarbonate (Buffered Lidocaine 1%) 3 ml 1X ONCE INJ ; Start 08/28/18 at 10:30; Stop 08/28/18 at 10:31; Status DC Haloperidol Lactate (Haldol Inj) 5 mg PRN Q6HRS PRN IVP AGITATION Last administered on 09/06/18at 05:53; Start 08/28/18 at 12:00 Fentanyl Citrate (Fentanyl 2ml Vial) 50 mcg PRN Q4HRS PRN IV PAIN Last administered on 08/28/18at 21:44; Start 08/28/18 at 15:30; Stop 09/05/18 at 02:11; Status DC Sodium Chloride 1,000 ml @ 1,000 mls/hr Q1H PRN IV hypotension; Start 08/28/18 at 14:00; Stop 08/28/18 at 19:59; Status DC Albumin Human 200 ml @ 200 mls/hr 1X PRN PRN IV Hypotension Last administered on 08/28/18at 14:50; Start 08/28/18 at 14:00; Stop 09/03/18 at 18:17; Status DC Sodium Chloride 1,000 ml @ 400 mls/hr Q2H30M PRN IV PATENCY; Start 08/28/18 at 14:00; Stop 08/29/18 at 01:59; Status DC Info (PHARMACY MONITORING -- do not chart) 1 each PRN DAILY PRN MC SEE COM MENTS; Start 08/28/18 at 15:30; Status UNV Info (PHARMACY MONITORING -- do not chart) 1 each PRN DAILY PRN MC SEE COMMENTS; Start 08/28/18 at 15:30; Status UNV Daptomycin 610 mg/ Sodium Chloride 50 ml @ 100 mls/hr Q48H IV ; Start 08/30/18 at 16:00; Stop 08/30/18 at 16:00; Status DC Famotidine (Pepcid Vial) 20 mg QHS IVP Last administered on 08/31/18at 20:59; Start 08/29/18 at 21:00; Stop 09/01/18 at 11:00; Status DC Acyclovir Sodium 340 mg/Dextrose 106.8 ml @ 106.8 mls/ hr Q12HR IV Last administered on 09/01/18at 11:05; Start 08/30/18 at 09:00; Stop 09/01/18 at 13:37; Status DC Sodium Chloride 1,000 ml @ 1,000 mls/hr Q1H PRN IV hypotension; Start 08/30/18 at 11:02; Stop 08/30/18 at 17:01; Status DC Sodium Chloride 1,000 ml @ 400 mls/hr Q2H30M PRN IV PATENCY; Start 08/30/18 at 11:02; Stop 08/30/18 at 23:01; Status DC Info (PHARMACY MONITORING -- do not chart) 1 each PRN DAILY PRN MC SEE COMMENTS; Start 08/30/18 at 11:15; Status UNV Info (PHARMACY MONITORING -- do not chart) 1 each PRN DAILY PRN MC SEE COMMENTS; Start 08/30/18 at 11:15; Status UNV Info (Tpn Per Pharmacy) 1 each PRN DAILY PRN MC SEE COMMENTS Last administered on 09/03/18at 10:53; Start 08/30/18 at 12:45; Stop 09/04/18 at 12:50; Status DC Sodium Chloride 90 meq/Potassium Chloride 50 meq/ Potassium Phosphate 3 mmol/ Magnesium Sulfate 10 meq/Calcium Gluconate 10 meq/ Multivitamins 10 ml/Chromium/ Copper/Manganese/ Seleni/Zn 1 ml/ Total Parenteral Nutrition/Amino Acids/Dextrose/ Fat Emulsion Intravenous 1,512 ml @ 63 mls/hr TPN CONT IV Last administered on 08/30/18at 21:40; Start 08/30/18 at 22:00; Stop 08/31/18 at 21:59; Status DC Ondansetron HCl (Zofran) 4 mg PRN Q6HRS PRN IV NAUSEA/VOMITING; Start 08/31/18 at 08:00 Haloperidol (Haldol) 2 mg PRN QID PRN PO AGITATION; Start 08/31/18 at 08:00; Stop 08/31/18 at 12:43; Status DC Haloperidol Lactate (HALDOL 2mg ORAL CONC) 2 mg PRN QID PRN PO AGITATION; Sta rt 08/31/18 at 12:43 Sodium Chloride 90 meq/Potassium Chloride 50 meq/ Potassium Phosphate 5 mmol/ Magnesium Sulfate 3 meq/Calcium Gluconate 10 meq/ Multivitamins 10 ml/Chromium/ Copper/Manganese/ Seleni/Zn 1 ml/ Total Parenteral Nutrition/Amino Acids/Dextr ose 1,512 ml @ 63 mls/hr TPN CONT IV Last administered on 08/31/18at 20:59; Start 08/31/18 at 22:00; Stop 09/01/18 at 21:59; Status DC Propofol 100 ml @ As Directed STK-MED ONCE IV ; Start 08/31/18 at 22:45; Stop 08/31/18 at 22:46; Status DC Succinylcholine Chloride (Anectine) 200 mg STK-MED ONCE .ROUTE ; Start 08/31/18 at 22:46; Stop 08/31/18 at 22:47; Status DC Atropine Sulfate (ATROPINE 1mg SYRINGE) 1 mg STK-MED ONCE .ROUTE ; Start 08/31/18 at 22:58; Stop 08/31/18 at 22:59; Status DC Fentanyl Citrate 30 ml @ 0 mls/hr CONT PRN IV SEE PROTOCOL Last administered on 09/06/18at 10:39; Start 09/01/18 at 00:00; Stop 09/06/18 at 10:59; Status DC Propofol 100 ml @ 0 mls/hr CONT PRN IV SEE PROTOCOL Last administered on 09/06/18at 08:14; Start 09/01/18 at 00:00; Stop 09/06/18 at 10:59; Status DC Chlorhexidine Gluconate (Peridex) 15 ml BID MM Last administered on 09/07/18at 21:21; Start 09/01/18 at 09:00; Stop 09/08/18 at 08:04; Status DC Midazolam HCl 100 ml @ 0 mls/hr CONT PRN IV SEE PROTOCOL; Start 09/01/18 at 00:00; Stop 09/08/18 at 11:30; Status DC Albuterol/ Ipratropium (Duoneb) 3 ml RTQID NEB Last administered on 09/12/18at 07:31; Start 09/01/18 at 08:00 Albuterol/ Ipratropium (Duoneb) 3 ml 1X ONCE NEB Last administered on 09/01/18at 01:10; Start 09/01/18 at 01:00; Stop 09/01/18 at 01:01; Status DC Succinylcholine Chloride (Anectine) 200 mg 1X ONCE IV Last administered on at 23:04; Start 09/01/18 at 01:15; Stop 09/01/18 at 01:16; Status DC Sodium Chloride 1,000 ml @ 1,000 mls/hr Q1H PRN IV hypotension; Start 09/01/18 at 07:00; Stop 09/01/18 at 12:59; Status DC Sodium Chloride (Normal Saline Flush) 10 ml 1X PRN PRN IV AP catheter pack; Start 09/01/18 at 07:00; Stop 09/02/18 at 06:59; Status DC Sodium Chloride (Normal Saline Flush) 10 ml 1X PRN PRN IV 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; Start 09/01/18 at 07:00; Stop 09/02/18 at 06:59; Status DC Sodium Chloride 1,000 ml @ 400 mls/hr Q2H30M PRN IV PATENCY; Start 09/01/18 at 07:00; Stop 09/01/18 at 18:59; Status DC Info (PHARMACY MONITORING -- do not chart) 1 each PRN DAILY PRN MC SEE COMMENTS; Start 09/01/18 at 11:00; Status Cancel Info (PHARMACY MONITORING -- do not chart) 1 each PRN DAILY PRN MC SEE COMMENTS; Start 09/01/18 at 11:00; Status Cancel Famotidine (Pepcid Vial) 20 mg Q48H IVP Last administered on 09/11/18at 19:56; Start 09/03/18 at 21:00 Sodium Chloride 90 meq/Potassium Chloride 50 meq/ Potassium Phosphate 10 mmol/ Calcium Gluconate 10 meq/ Multivitamins 10 ml/Chromium/ Copper/Manganese/ Seleni/Zn 1 ml/ Total Parenteral Nutrition/Amino Acids/Dextrose 1,512 ml @ 63 mls/hr TPN CONT IV Last administered on 09/01/18at 22:11; Start 09/01/18 at 22:00; Stop 09/02/18 at 21:59; Status DC Piperacillin Sod/ Tazobactam Sod 2.25 gm/Sodium Chloride 50 ml @ 100 mls/hr Q6HRS IV Last administered on 09/11/18at 05:19; Start 09/01/18 at 14:00; Stop 09/11/18 at 09:29; Status DC Sodium Chloride 110 meq/Potassium Chloride 50 meq/ Potassium Phosphate 10 mmol/ Calcium Gluconate 10 meq/ Multivitamins 10 ml/Chromium/ Copper/Manganese/ Seleni/Zn 1 ml/ Magnesium Sulfate 3 meq/Total Parenteral Nutrition/Amino Acids/Dextrose 1,512 ml @ 63 mls/hr TPN CONT IV Last administered on 09/02/18at 22:13; Start 09/02/18 at 22:00; Stop 09/03/18 at 21:59; Status DC Darbepoetin Phil (Aranesp) 100 mcg [id number] SQ Last administered on 09/10/18at 21:35; Start 09/03/18 at 21:00 Sodium Chloride 130 meq/Potassium Acetate 20 meq/ Calcium Gluconate 10 meq/ Multivitamins 10 ml/Chromium/ Copper/Manganese/ Seleni/Zn 1 ml/ Magnesium Sulfate 3 meq/Total Parenteral Nutrition/Amino Acids/Dextrose 1,512 ml @ 63 mls/hr TPN CONT IV Last administered on 09/03/18at 22:12; Start 09/03/18 at 22:00; Stop 09/04/18 at 21:59; Status DC Albumin Human 200 ml @ 200 mls/hr 1X PRN PRN IV Hypotension; Start 09/03/18 at 10:00; Stop 09/03/18 at 21:00; Status DC Sodium Chloride (Normal Saline Flush) 10 ml 1X PRN PRN IV AP catheter pack; Start 09/03/18 at 10:00; Stop 09/03/18 at 21:00; Status DC Sodium Chloride (Normal Saline Flush) 10 ml 1X PRN PRN IV 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; Start 09/03/18 at 10:00; Stop 09/03/18 at 21:00; Status DC Sodium Chloride 1,000 ml @ 400 mls/hr Q2H30M PRN IV PATENCY; Start 09/03/18 at 10:00; Stop 09/03/18 at 21:59; Status DC Info (PHARMACY MONITORING -- do not chart) 1 each PRN DAILY PRN MC SEE COMMENTS; Start 09/03/18 at 18:15; Status UNV Atropine Sulfate (ATROPINE 0.5mg SYRINGE) 0.5 mg STK-MED ONCE .ROUTE ; Start 08/31/18 at 08:06; Stop 09/04/18 at 08:07; Status DC Epinephrine HCl (EPINEPHrine SYRINGE) 3 mg STK-MED ONCE .ROUTE ; Start 08/31/18 at 08:06; Stop 09/04/18 at 08:07; Status DC Sodium Bicarbonate (Sodium Bicarb Adult 8.4% Syr) 100 meq STK-MED ONCE .ROUTE ; Start 08/31/18 at 08:06; Stop 09/04/18 at 08:07; Status DC Levofloxacin/ Dextrose 150 ml @ 100 mls/hr QODAY IV Last administered on 09/06/18at 10:28; Start 09/04/18 at 09:00; Stop 09/07/18 at 07:52; Status DC Sodium Chloride 1,000 ml @ 1,000 mls/hr Q1H PRN IV hypotension; Start 09/04/18 at 08:23; Stop 09/04/18 at 14:24; Status DC Albumin Human 200 ml @ 200 mls/hr 1X PRN PRN IV Hypotension; Start 09/04/18 at 08:30; Stop 09/04/18 at 14:29; Status DC Sodium Chloride 1,000 ml @ 400 mls/hr Q2H30M PRN IV PATENCY; Start 09/04/18 at 08:23; Stop 09/04/18 at 20:22; Status DC Info (PHARMACY MONITORING -- do not chart) 1 each PRN DAILY PRN MC SEE COMMENTS; Start 09/04/18 at 08:30; Stop 09/05/18 at 08:55; Status DC Info (PHARMACY MONITORING -- do not chart) 1 each PRN DAILY PRN MC SEE COMMENTS; Start 09/04/18 at 08:30; Status UNV Linezolid/Dextrose 300 ml @ 300 mls/hr Q12HR IV Last administered on 09/09/18at 21:21; Start 09/05/18 at 09:30; Stop 09/10/18 at 07:34; Status DC Sodium Chloride 1,000 ml @ 1,000 mls/hr Q1H PRN IV hypotension; Start 09/05/18 at 08:51; Stop 09/05/18 at 14:50; Status DC Sodium Chloride (Normal Saline Flush) 10 ml 1X PRN PRN IV AP catheter pack; Start 09/05/18 at 09:00; Stop 09/06/18 at 08:59; Status DC Sodium Chloride (Normal Saline Flush) 10 ml 1X PRN PRN IV 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; Start 09/05/18 at 09:00; Stop 09/06/18 at 08:59; Status DC Sodium Chloride 1,000 ml @ 400 mls/hr Q2H30M PRN IV PATENCY; Start 09/05/18 at 08:51; Stop 09/05/18 at 20:50; Status DC Info (PHARMACY MONITORING -- do not chart) 1 each PRN DAILY PRN MC SEE C OMMENTS; Start 09/05/18 at 09:00; Stop 09/05/18 at 09:00; Status DC Info (PHARMACY MONITORING -- do not chart) 1 each PRN DAILY PRN MC SEE COMMENTS; Start 09/05/18 at 09:00; Status Cancel Fentanyl Citrate (Fentanyl 2ml Vial) 25 mcg PRN Q2HR PRN IV MODERATE PAIN Last administered on 09/12/18at 02:57; Start 09/06/18 at 11:00 Dexmedetomidine HCl 200 mcg/ Sodium Chloride 50 ml @ 0 mls/hr CONT PRN IV PER PROTOCOL; Start 09/06/18 at 11:00; Stop 09/08/18 at 08:03; Status DC Sodium Chloride 500 ml @ 500 mls/hr 1X PRN PRN IV SEE COMMENTS; Start 09/06/18 at 11:00 Atropine Sulfate (ATROPINE 0.5mg SYRINGE) 0.5 mg PRN Q5MIN PRN IV SEE COMMENTS; Start 09/06/18 at 11:00 Sodium Chloride 1,000 ml @ 1,000 mls/hr Q1H PRN IV hypotension; Start 09/06/18 at 11:52; Stop 09/06/18 at 17:51; Status DC Diphenhydramine HCl (Benadryl) 25 mg 1X PRN PRN IV ITCHING; Start 09/06/18 at 12:00; Stop 09/07/18 at 11:59; Status DC Diphenhydramine HCl (Benadryl) 25 mg 1X PRN PRN IV ITCHING; Start 09/06/18 at 12:00; Stop 09/07/18 at 11:59; Status DC Sodium Chloride 1,000 ml @ 400 mls/hr Q2H30M PRN IV PATENCY; Start 09/06/18 at 11:52; Stop 09/06/18 at 23:51; Status DC Info (PHARMACY MONITORING -- do not chart) 1 each PRN DAILY PRN MC SEE COMMENTS; Start 09/06/18 at 12:00; Stop 09/06/18 at 12:00; Status DC Micafungin Sodium 100 mg/Dextrose 100 ml @ 100 mls/hr Q24H IV Last administered on 09/11/18at 09:23; Start 09/07/18 at 08:30 Sodium Chloride 1,000 ml @ 1,000 mls/hr Q1H PRN IV hypotension; Start 09/07/18 at 16:29; Stop 09/07/18 at 22:28; Status DC Diphenhydramine HCl (Benadryl) 25 mg 1X PRN PRN IV ITCHING; Start 09/07/18 at 16:30; Stop 09/08/18 at 16:29; Status DC Diphenhydramine HCl (Benadryl) 25 mg 1X PRN PRN IV ITCHING; Start 09/07/18 at 16:30; Stop 09/08/18 at 16:29; Status DC Sodium Chloride 1,000 ml @ 400 mls/hr Q2H30M PRN IV PATENCY; Start 09/07/18 at 16:29; Stop 09/08/18 at 04:28; Status DC Info (PHARMACY MONITORING -- do not chart) 1 each PRN DAILY PRN MC SEE COMMENTS; Start 09/07/18 at 16:30; Stop 09/11/18 at 10:21; Status DC Lidocaine/Sodium Bicarbonate (Buffered Lidocaine 1%) 3 ml 1X ONCE INJ Last administered on 09/10/18at 09:51; Start 09/10/18 at 08:45; Stop 09/10/18 at 08:46; Status DC Heparin Sodium (Porcine) (Heparin Sodium) 2,400 unit 1X ONCE INT CAT Last administered on 09/10/18at 09:51; Start 09/10/18 at 08:45; Stop 09/10/18 at 08:46; Status DC Sodium Chloride 1,000 ml @ 1,000 mls/hr Q1H PRN IV hypotension; Start 09/10/18 at 13:19; Stop 09/10/18 at 19:18; Status DC Diphenhydramine HCl (Benadryl) 25 mg 1X PRN PRN IV ITCHING; Start 09/10/18 at 13:30; Stop 09/11/18 at 13:29; Status DC Diphenhydramine HCl (Benadryl) 25 mg 1X PRN PRN IV ITCHING; Start 09/10/18 at 13:30; Stop 09/11/18 at 13:29; Status DC Sodium Chloride 1,000 ml @ 400 mls/hr Q2H30M PRN IV PATENCY; Start 09/10/18 at 13:19; Stop 09/11/18 at 01:18; Status DC Info (PHARMACY MONITORING -- do not chart) 1 each PRN DAILY PRN MC SEE COMME NTS; Start 09/10/18 at 13:30 Amlodipine Besylate (Norvasc) 2.5 mg DAILY PO Last administered on 09/11/18at 11:55; Start 09/11/18 at 11:00 Daptomycin 640 mg/ Sodium Chloride 50 ml @ 100 mls/hr ONCE ONCE IV Last administered on 09/11/18at 12:41; Start 09/11/18 at 12:00; Stop 09/11/18 at 12:29; Status DC Cefepime HCl (Maxipime) 1 gm Q24H IVP Last administered on 09/11/18at 11:53; Start 09/11/18 at 11:00 Lidocaine/Sodium Bicarbonate (Buffered Lidocaine 1%) 3 ml STK-MED ONCE .ROUTE ; Start 09/10/18 at 09:21; Stop 09/11/18 at 17:40; Status DC Heparin Sodium (Porcine) (Heparin Sodium) 10,000 unit STK-MED ONCE .ROUTE ; Start 09/10/18 at 09:21; Stop 09/11/18 at 17:40; Status DC Lidocaine/Sodium Bicarbonate (Buffered Lidocaine 1%) 3 ml STK-MED ONCE .ROUTE ; Start 09/10/18 at 09:37; Stop 09/11/18 at 17:41; Status DC Heparin Sodium (Porcine) (Heparin Sodium) 10,000 unit STK-MED ONCE .ROUTE ; Start 09/10/18 at 09:37; Stop 09/11/18 at 17:41; Status DC Active Scripts Active Mycamine (Micafungin Sodium) 100 Mg Vial 100 Mg IV DAILY 10 Days Daptomycin 350 Mg Vial 640 Mg IV DAILY 14 Days [Cefepime Hcl] 1 GM Vial 1 Gm IVP Q24H 14 Days Potassium Chloride 20 Meq Tablet.er 20 Meq PO DAILY Orphenadrine Citrate 100 Mg Tablet.er 100 Mg PO Q12HR Anaprox Ds (Naproxen Sodium) 550 Mg Tablet 550 Mg PO Q12HR Reported Hydrochlorothiazide Tablet (Hydrochlorothiazide) 12.5 Mg Tablet 12.5 Mg PO DAILY Shilpi Allergy (Fexofenadine Hcl) 180 Mg Tablet 1 Tab PO DAILY Vitals/I & O Vital Sign - Last 24 Hours 09/11/18 09/11/18 09/11/18 09/11/18 11:55 15:17 15:55 19:16 Temp 98.2 98.8 98.2 98.8 Pulse 85 83 60 Resp 22 18 B/P (MAP) 153/82 166/97 (120) 131/51 (77) Pulse Ox 95 96 100 O2 Delivery Nasal Cannula Nasal Cannula Nasal Cannula O2 Flow Rate 3.0 2.0 2.0 09/11/18 09/11/18 09/11/18 09/12/18 20:00 20:19 23:25 02:57 Temp 98.1 98.1 Pulse 81 Resp 20 B/P (MAP) 161/87 (111) Pulse Ox 97 96 O2 Delivery Nasal Cannula Nasal Cannula Nasal Cannula Nasal Cannula O2 Flow Rate 3.0 2.0 3.0 2.0 09/12/18 09/12/18 09/12/18 09/12/18 03:27 03:51 06:45 07:00 Temp 98.6 98.2 98.6 98.2 Pulse 88 78 Resp 20 17 B/P (MAP) 146/84 (104) 154/91 (112) Pulse Ox 97 98 O2 Delivery Nasal Cannula Nasal Cannula Nasal Cannula Nasal Cannula O2 Flow Rate 2.0 3.0 2.0 3.0 09/12/18 07:32 Pulse Ox 97 O2 Delivery Nasal Cannula O2 Flow Rate 2.0 Intake and Output0 09/11/18 09/11/18 09/12/18 14:59 22:59 06:59 Intake Total 300 ml 300 ml 100 ml Output Total 250 ml Balance 300 ml 300 ml -150 ml MARBIN GARCIA MD Sep 12, 2018 11:50
--- NOTE | 2018-09-12 11:57 | PDOC ---
Objective: Objective: D/w RN earlier - he pulled his NG out, TAP PULL[facility] to see again today. Vital Signs: Vital Signs Date Time Temp Pulse Resp B/P (MAP) Pulse Ox O2 Delivery O2 Flow Rate FiO2 09/12/18 07:32 97 Nasal Cannula 2.0 09/12/18 07:00 98.2 78 17 154/91 (112) 98.2 Labs: Laboratory Tests Test 09/12/18 03:20 White Blood Count 9.2 x10^3/uL Red Blood Count 2.47 x10^6/uL Hemoglobin 7.5 g/dL Hematocrit 21.5 % Mean Corpuscular Volume 87 fL Mean Corpuscular Hemoglobin 30 pg Mean Corpuscular Hemoglobin Concent 35 g/dL Red Cell Distribution Width 19.3 % Platelet Count 347 x10^3/uL Neutrophils (%) (Auto) 48 % Lymphocytes (%) (Auto) 33 % Monocytes (%) (Auto) 14 % Eosinophils (%) (Auto) 3 % Basophils (%) (Auto) 2 % Neutrophils # (Auto) 4.4 x10^3uL Lymphocytes # (Auto) 3.0 x10^3/uL Monocytes # (Auto) 1.3 x10^3/uL Eosinophils # (Auto) 0.3 x10^3/uL Basophils # (Auto) 0.2 x10^3/uL Sodium Level 137 mmol/L Potassium Level 4.1 mmol/L Chloride Level 96 mmol/L Carbon Dioxide Level 23 mmol/L Anion Gap 18 Blood Urea Nitrogen 87 mg/dL Creatinine 9.6 mg/dL Estimated GFR (Cockcroft-Gault) 5.7 BUN/Creatinine Ratio 9 Glucose Level 110 mg/dL Calcium Level 8.0 mg/dL Total Bilirubin 0.7 mg/dL Aspartate Amino Transf (AST/SGOT) 41 U/L Alanine Aminotransferase (ALT/SGPT) 43 U/L Alkaline Phosphatase 90 U/L Total Protein 6.7 g/dL Albumin 2.0 g/dL Albumin/Globulin Ratio 0.4 PE: GEN: dialyzing NEURO/PSYCH: waved back A/P: MOSF, fungemia, dysphagia -- Await [facility] PULL[facility] follow-up. ELVIA NOE Sep 12, 2018 11:57
--- NOTE | 2018-09-12 12:43 | PDOC ---
[employer] PROGRESS NOTE Chief Complaint Chief Complaint Sepsis Encephalopathy Respiratory failure Probable tick-borne illness, suspected. with h/o tick bite 3 weeks ago at [place] Fungemia Lactic acidosis. Fever. Bandemia. Acute hepatic injury Acute kidney injury. Thrombocytopenia. Hemochromatosis. LLE dermatitis improving, ? poison [place],resolving with local treatment History of Present Illness History of Present Illness Patient seen and examined in the dialysis unit Discussed with his RN's Chart reviewed Labs reviewed Mr Kirk is a 52-year-old male with a past medical history of hemochromatosis who is pretty healthy otherwise and very active. About 3 weeks ago, he was at [facility] [employer] [place] and found a tick embedded on the back of his right thigh. He pulled it out and thought nothing of it. The next day, he was cleaning up a yard with a few other persons from [place]. He recalls kneeling down on his left knee pulling wheat. A few days later, he developed an itchy red blistering rash on his left knee that improved with [id number] ivory rest. He then developed a different type of rash that was itchy, splotchy and red on the inner aspect of both arms. He was seen by his doctor and prescribed Bactrim for infection. 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 About a week later, on Friday 08/18, he went to a men's breakfast and a [employer] meeting. Afterwards, he felt unusually tired. Over the following 24 hours, he did not feel well. He developed fever, chills, joint pains and muscle aches. He alternated taking ibuprofen and Tylenol without relief. He was seen at urgent care center and prescribed prednisone for upper respiratory infection. Unfortunately, he felt worse. He lost his appetite and was not drinking much and was urinating less. His said he was sleeping more, moaned, seemed lethargic and confused, prompting the ER visit. On arrival to the ER, he had a temperature of 100.3, respiratory rate 28. Laboratory values returned abnormal with a WBC count 6.2, segs 68%, bands 24%, platelets 17,000. Lactic acid was 5.1. Sed rate 11. He had elevated LFTs and acute kidney injury. Cultures were ordered. He was dosed with vancomycin, ceftriaxone and aztreonam in the ER. ID adjusted his antibiotics to daptomycin, meropenem and doxycycline. He was feeling improved, then on 08/28/2018 continued to worsen, was started on dialysis, required increasing O2 and was placed on BIPAP and ultimately intubated on 08/31/2018. Serology for HIV, HSV, [place] spotted fever and Ehrlichia all thus negative. Had LP on 08/29/18 with increased protein. His spouse notes no recent travel, last time he was out of the country was [facility] in 2003. 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 He struggled with infidelity over the last year and over the weekend had HIV testing consent per , this was negative as well as syphilis testing. 09/08: Extubated without event, able to get up to chair. Still on tube feeds and confused. DYE WEIGHER HELPER to evaluate today Once he has stable access and dialysis would be appropriate for further recovery at [facility], will d/w other subspecialists prior to decision. Vitals Vitals Vital Signs Date Time Temp Pulse Resp B/P (MAP) Pulse Ox O2 Delivery O2 Flow Rate FiO2 09/12/18 07:32 97 Nasal Cannula 2.0 09/12/18 07:00 98.2 78 17 154/91 (112) 98.2 Physical Exam Physical Exam GENERAL: Awake, calm, NAD - looks well HEENT: Pupils equal, oral cavity dry NECK: Supple. LUNGS: Clear anteriorly HEART: S1 and S2. regular ABDOMEN: + distention but less, : Waters in place EXTREMITIES: No gross edema, no cyanosis. NEUROLOGIC: Awake, and alert looks really well PIV. R neck HD cath General: Alert, No acute distress Heart: Normal S1, Normal S2 Lungs: Clear Abdomen: Soft, Other ( ) Extremities: No clubbing, No cyanosis, No edema Skin: No significant lesion, Other (healing rash and excoriations on Left lower extremity. No obvious petechiae) Labs Labs: Laboratory Tests Test 09/12/18 03:20 White Blood Count 9.2 x10^3/uL (4.0-11.0) Red Blood Count 2.47 x10^6/uL (4.30-5.70) Hemoglobin 7.5 g/dL (13.0-17.5) Hematocrit 21.5 % (39.0-53.0) Mean Corpuscular Volume 87 fL (79-100) Mean Corpuscular Hemoglobin 30 pg (25-35) Mean Corpuscular Hemoglobin Concent 35 g/dL (31-37) Red Cell Distribution Width 19.3 % (11.5-14.5) Platelet Count 347 x10^3/uL (140-400) Neutrophils (%) (Auto) 48 % (31-73) Lymphocytes (%) (Auto) 33 % (24-48) Monocytes (%) (Auto) 14 % (0-9) Eosinophils (%) (Auto) 3 % (0-3) Basophils (%) (Auto) 2 % (0-3) Neutrophils # (Auto) 4.4 x10^3uL (1.8-7.7) Lymphocytes # (Auto) 3.0 x10^3/uL (1.0-4.8) Monocytes # (Auto) 1.3 x10^3/uL (0.0-1.1) Eosinophils # (Auto) 0.3 x10^3/uL (0.0-0.7) Basophils # (Auto) 0.2 x10^3/uL (0.0-0.2) Sodium Level 137 mmol/L (136-145) Potassium Level 4.1 mmol/L (3.5-5.1) Chloride Level 96 mmol/L (98-107) Carbon Dioxide Level 23 mmol/L (21-32) Anion Gap 18 (6-14) Blood Urea Nitrogen 87 mg/dL (8-26) Creatinine 9.6 mg/dL (0.7-1.3) Estimated GFR (Cockcroft-Gault) 5.7 BUN/Creatinine Ratio 9 (6-20) Glucose Level 110 mg/dL (70-99) Calcium Level 8.0 mg/dL (8.5-10.1) Total Bilirubin 0.7 mg/dL (0.2-1.0) Aspartate Amino Transf (AST/SGOT) 41 U/L (15-37) Alanine Aminotransferase (ALT/SGPT) 43 U/L (16-63) Alkaline Phosphatase 90 U/L (46-116) Total Protein 6.7 g/dL (6.4-8.2) Albumin 2.0 g/dL (3.4-5.0) Albumin/Globulin Ratio 0.4 (1.0-1.7) Assessment and Plan Assessmemt and Plan Problems Medical Problems: (1) Acute renal failure Status: Acute Sepsis Encephalopathy Respiratory failure Probable tick-borne illness, suspected. with h/o tick bite 3 weeks ago at [place] Fungemia Lactic acidosis. Fever. Bandemia. Acute hepatic injury Acute kidney injury. Thrombocytopenia. Hemochromatosis. LLE dermatitis improving, ? poison [place],resolving with local treatment Plan IV antibiotics per infectious disease Dialysis Monday Home meds Frequent labs DVT prophylaxis Cardiac monitoring Full code Prognosis guarded but improving a lot over the last week Appreciate subspecialist input Comment Review of Relevant I have reviewed the following items gera (where applicable) has been applied. Labs Laboratory Tests Test 09/11/18 03:25 09/12/18 03:20 White Blood Count 8.8 x10^3/uL (4.0-11.0) 9.2 x10^3/uL (4.0-11.0) Red Blood Count 2.56 x10^6/uL (4.30-5.70) 2.47 x10^6/uL (4.30-5.70) Hemoglobin 7.6 g/dL (13.0-17.5) 7.5 g/dL (13.0-17.5) Hematocrit 22.2 % (39.0-53.0) 21.5 % (39.0-53.0) Mean Corpuscular Volume 87 fL (79-100) 87 fL (79-100) Mean Corpuscular Hemoglobin 30 pg (25-35) 30 pg (25-35) Mean Corpuscular Hemoglobin Concent 34 g/dL (31-37) 35 g/dL (31-37) Red Cell Distribution Width 19.4 % (11.5-14.5) 19.3 % (11.5-14.5) Platelet Count 379 x10^3/uL (140-400) 347 x10^3/uL (140-400) Neutrophils (%) (Auto) 50 % (31-73) 48 % (31-73) Lymphocytes (%) (Auto) 31 % (24-48) 33 % (24-48) Monocytes (%) (Auto) 16 % (0-9) 14 % (0-9) Eosinophils (%) (Auto) 2 % (0-3) 3 % (0-3) Basophils (%) (Auto) 1 % (0-3) 2 % (0-3) Neutrophils # (Auto) 4.4 x10^3uL (1.8-7.7) 4.4 x10^3uL (1.8-7.7) Lymphocytes # (Auto) 2.7 x10^3/uL (1.0-4.8) 3.0 x10^3/uL (1.0-4.8) Monocytes # (Auto) 1.4 x10^3/uL (0.0-1.1) 1.3 x10^3/uL (0.0-1.1) Eosinophils # (Auto) 0.2 x10^3/uL (0.0-0.7) 0.3 x10^3/uL (0.0-0.7) Basophils # (Auto) 0.1 x10^3/uL (0.0-0.2) 0.2 x10^3/uL (0.0-0.2) Sodium Level 137 mmol/L (136-145) 137 mmol/L (136-145) Potassium Level 4.1 mmol/L (3.5-5.1) 4.1 mmol/L (3.5-5.1) Chloride Level 96 mmol/L (98-107) 96 mmol/L (98-107) Carbon Dioxide Level 26 mmol/L (21-32) 23 mmol/L (21-32) Anion Gap 15 (6-14) 18 (6-14) Blood Urea Nitrogen 65 mg/dL (8-26) 87 mg/dL (8-26) Creatinine 7.3 mg/dL (0.7-1.3) 9.6 mg/dL (0.7-1.3) Estimated GFR (Cockcroft-Gault) 7.9 5.7 BUN/Creatinine Ratio 9 (6-20) 9 (6-20) Glucose Level 113 mg/dL (70-99) 110 mg/dL (70-99) Calcium Level 8.0 mg/dL (8.5-10.1) 8.0 mg/dL (8.5-10.1) Total Bilirubin 0.8 mg/dL (0.2-1.0) 0.7 mg/dL (0.2-1.0) Aspartate Amino Transf (AST/SGOT) 45 U/L (15-37) 41 U/L (15-37) Alanine Aminotransferase (ALT/SGPT) 43 U/L (16-63) 43 U/L (16-63) Alkaline Phosphatase 104 U/L (46-116) 90 U/L (46-116) Total Protein 7.1 g/dL (6.4-8.2) 6.7 g/dL (6.4-8.2) Albumin 2.1 g/dL (3.4-5.0) 2.0 g/dL (3.4-5.0) Albumin/Globulin Ratio 0.4 (1.0-1.7) 0.4 (1.0-1.7) Laboratory Tests Test 09/12/18 03:20 White Blood Count 9.2 x10^3/uL (4.0-11.0) Red Blood Count 2.47 x10^6/uL (4.30-5.70) Hemoglobin 7.5 g/dL (13.0-17.5) Hematocrit 21.5 % (39.0-53.0) Mean Corpuscular Volume 87 fL (79-100) Mean Corpuscular Hemoglobin 30 pg (25-35) Mean Corpuscular Hemoglobin Concent 35 g/dL (31-37) Red Cell Distribution Width 19.3 % (11.5-14.5) Platelet Count 347 x10^3/uL (140-400) Neutrophils (%) (Auto) 48 % (31-73) Lymphocytes (%) (Auto) 33 % (24-48) Monocytes (%) (Auto) 14 % (0-9) Eosinophils (%) (Auto) 3 % (0-3) Basophils (%) (Auto) 2 % (0-3) Neutrophils # (Auto) 4.4 x10^3uL (1.8-7.7) Lymphocytes # (Auto) 3.0 x10^3/uL (1.0-4.8) Monocytes # (Auto) 1.3 x10^3/uL (0.0-1.1) Eosinophils # (Auto) 0.3 x10^3/uL (0.0-0.7) Basophils # (Auto) 0.2 x10^3/uL (0.0-0.2) Sodium Level 137 mmol/L (136-145) Potassium Level 4.1 mmol/L (3.5-5.1) Chloride Level 96 mmol/L (98-107) Carbon Dioxide Level 23 mmol/L (21-32) Anion Gap 18 (6-14) Blood Urea Nitrogen 87 mg/dL (8-26) Creatinine 9.6 mg/dL (0.7-1.3) Estimated GFR (Cockcroft-Gault) 5.7 BUN/Creatinine Ratio 9 (6-20) Glucose Level 110 mg/dL (70-99) Calcium Level 8.0 mg/dL (8.5-10.1) Total Bilirubin 0.7 mg/dL (0.2-1.0) Aspartate Amino Transf (AST/SGOT) 41 U/L (15-37) Alanine Aminotransferase (ALT/SGPT) 43 U/L (16-63) Alkaline Phosphatase 90 U/L (46-116) Total Protein 6.7 g/dL (6.4-8.2) Albumin 2.0 g/dL (3.4-5.0) Albumin/Globulin Ratio 0.4 (1.0-1.7) Microbiology 09/11/18 Blood Culture - Preliminary, Resulted NO GROWTH AFTER 1 DAY 08/29/18 CSF Gram Stain - Final, Complete 08/27/18 Stool Culture - Final, Complete 08/27/18 Stool Culture Result 1 (LOTUS) - Final, Complete 08/27/18 Campylobacter Antigen Assay - Final, Complete 08/27/18 Campylobactor Result 1 - Final, Complete 08/27/18 Shiga Toxin Test - Final, Complete 09/05/18 - Final, Complete 09/05/18 - Final, Complete 09/05/18 - Final, Complete 09/05/18 Gram Stain Evaluation - Final, Complete 09/05/18 Sputum Culture - Final, Complete 09/05/18 Sputum Result 1 - Final, Complete 09/04/18 Urine Culture - Final, Complete 09/04/18 Urine Culture Result 1 (LOTUS) - Final, Complete Medications Current Medications Sodium Chloride 1,000 ml @ 1,000 mls/hr 1X ONCE IV Last administered on 08/25/18at 20:38; Start 08/25/18 at 19:15; Stop 08/25/18 at 20:14; Status DC Ibuprofen (Motrin) 600 mg 1X ONCE PO Last administered on 08/25/18at 20:38; Start 08/25/18 at 19:45; Stop 08/25/18 at 19:49; Status DC Sodium Chloride 1,000 ml @ 1,000 mls/hr 1X ONCE IV Last administered on 08/25/18at 20:30; Start 08/25/18 at 20:30; Stop 08/25/18 at 21:29; Status DC Ceftriaxone Sodium (Rocephin) 1 gm 1X ONCE IVP Last administered on 08/25/18at 20:36; Start 08/25/18 at 20:30; Stop 08/25/18 at 20:31; Status DC Vancomycin HCl 2 gm/Sodium Chloride 500 ml @ 250 mls/hr 1X ONCE IV Last administered on 08/25/18at 23:10; Start 08/25/18 at 21:30; Stop 08/25/18 at 23:29; Status DC Sodium Chloride 1,000 ml @ 1,000 mls/hr 1X ONCE IV Last administered on 08/25/18at 23:51; Start 08/25/18 at 21:00; Stop 08/25/18 at 21:59; Status DC Piperacillin Sod/ Tazobactam Sod 4.5 gm/Sodium Chloride 100 ml @ 200 mls/hr 1X ONCE IV ; Start 08/25/18 at 21:15; Stop 08/25/18 at 21:44; Status DC Aztreonam (Azactam) 2 gm 1X ONCE IVP Last administered on 08/25/18at 21:15; Start 08/25/18 at 21:15; Stop 08/25/18 at 21:16; Status DC Magnesium Sulfate 50 ml @ 25 mls/hr 1X ONCE IV Last administered on 08/25/18at 23:51; Start 08/25/18 at 21:15; Stop 08/25/18 at 23:14; Status DC Ondansetron HCl (Zofran) 4 mg PRN Q8HRS PRN IV NAUSEA/VOMITING; Start 08/25/18 at 21:15; Stop 08/26/18 at 21:14; Status DC Acetaminophen (Tylenol) 650 mg PRN Q4HRS PRN PO FEVER; Start 08/25/18 at 21:15; Stop 08/26/18 at 21:14; Status DC Sodium Chloride 1,000 ml @ 125 mls/hr 1X ONCE IV Last administered on 08/25/18at 23:09; Start 08/25/18 at 21:15; Stop 08/26/18 at 05:14; Status DC Daptomycin 610 mg/ Sodium Chloride 50 ml @ 100 mls/hr QODAY IV Last administered on 08/27/18at 08:59; Start 08/27/18 at 09:00; Stop 08/28/18 at 15:40; Status DC Meropenem 500 mg/ Sodium Chloride 50 ml @ 100 mls/hr 1X ONCE IV Last administered on 08/25/18at 22:12; Start 08/25/18 at 22:00; Stop 08/25/18 at 22:29; Status DC Doxycycline Hyclate 100 mg/ Dextrose 100 ml @ 50 mls/hr Q12HR IV Last administered on 09/03/18at 22:11; Start 08/26/18 at 09:00; Stop 09/04/18 at 08:11; Status DC Meropenem 500 mg/ Sodium Chloride 50 ml @ 100 mls/hr DAILY IV Last administered on 08/29/18at 10:13; Start 08/26/18 at 09:00; Stop 08/30/18 at 08:17; Status DC Sodium Chloride (Normal Saline Flush) 10 ml QSHIFT PRN IV AFTER MEDS AND BLOOD DRAWS; Start 08/26/18 at 09:15 Norepinephrine Bitartrate 250 ml @ 0 mls/hr CONT PRN IV PER PROTOCOL Last administered on 08/27/18at 10:21; Start 08/26/18 at 09:15; Stop 08/30/18 at 17:20; Status DC Famotidine (Pepcid) 20 mg DAILY PO Last administered on 08/27/18at 08:14; Start 08/26/18 at 12:00; Stop 08/27/18 at 14:36; Status DC Sodium Chloride 1,000 ml @ 1,000 mls/hr Q1H PRN IV hypotension; Start 08/26/18 at 11:51; Stop 08/26/18 at 17:50; Status DC Sodium Chloride (Normal Saline Flush) 10 ml 1X PRN PRN IV AP catheter pack; Start 08/26/18 at 12:00; Stop 08/27/18 at 11:59; Status DC Sodium Chloride (Normal Saline Flush) 10 ml 1X PRN PRN IV ACTIVITIES VOLUNTEER catheter pack; Start 08/26/18 at 12:00; Stop 08/27/18 at 11:59; Status DC Sodium Chloride 1,000 ml @ 400 mls/hr Q2H30M PRN IV PATENCY; Start 08/26/18 at 11:51; Stop 08/26/18 at 23:50; Status DC Info (PHARMACY MONITORING -- do not chart) 1 each PRN DAILY PRN MC SEE COMMENTS; Start 08/26/18 at 12:00; Status UNV Info (PHARMACY MONITORING -- do not chart) 1 each PRN DAILY PRN MC SEE COMMENTS; Start 08/26/18 at 12:00; Stop 09/01/18 at 10:59; Status DC Lidocaine/Sodium Bicarbonate (Buffered Lidocaine 1%) 4 ml 1X ONCE INJ Last administered on 08/26/18at 12:45; Start 08/26/18 at 12:45; Stop 08/26/18 at 12:48; Status DC Heparin Sodium (Porcine) (Heparin Sodium) 2,500 unit 1X ONCE INT CAT Last administered on 08/26/18at 12:45; Start 08/26/18 at 12:45; Stop 08/26/18 at 12:48; Status DC Lidocaine/Sodium Bicarbonate (Buffered Lidocaine 1%) 3 ml STK-MED ONCE .ROUTE ; Start 08/26/18 at 12:49; Stop 08/26/18 at 12:50; Status DC Heparin Sodium (Porcine) (Heparin Sodium) 10,000 unit STK-MED ONCE .ROUTE ; Start 08/26/18 at 12:49; Stop 08/26/18 at 12:50; Status DC Lactobacillus Rhamnosus (Culturelle) 1 cap BID PO Last administered on 09/08/18at 09:34; Start 08/26/18 at 21:00; Stop 09/08/18 at 10:55; Status DC Acetaminophen (Tylenol) 325 mg STK-MED ONCE PO ; Start 08/27/18 at 00:43; Stop 08/27/18 at 00:44; Status DC Sodium Chloride 1,000 ml @ 1,000 mls/hr 1X ONCE IV Last administered on 08/27/18at 11:05; Start 08/27/18 at 10:30; Stop 08/27/18 at 11:29; Status DC Sodium Chloride 1,000 ml @ 1,000 mls/hr Q1H PRN IV hypotension; Start 08/27/18 at 11:28; Stop 08/27/18 at 17:27; Status DC Albumin Human 200 ml @ 200 mls/hr 1X PRN PRN IV Hypotension; Start 08/27/18 at 11:30; Stop 08/27/18 at 17:29; Status DC Sodium Chloride (Normal Saline Flush) 10 ml 1X PRN PRN IV AP catheter pack; Start 08/27/18 at 11:30; Stop 08/28/18 at 11:29; Status DC Sodium Chloride (Normal Saline Flush) 10 ml 1X PRN PRN IV ACTIVITIES VOLUNTEER catheter pack; Start 08/27/18 at 11:30; Stop 08/28/18 at 11:29; Status DC Sodium Chloride 1,000 ml @ 400 mls/hr Q2H30M PRN IV PATENCY; Start 08/27/18 at 11:28; Stop 08/27/18 at 23:27; Status DC Info (PHARMACY MONITORING -- do not chart) 1 each PRN DAILY PRN MC SEE COMMENTS; Start 08/27/18 at 11:30; Status UNV Info (PHARMACY MONITORING -- do not chart) 1 each PRN DAILY PRN MC SEE COMMENTS; Start 08/27/18 at 11:30; Status UNV Famotidine (Pepcid) 20 mg Q48H PO ; Start 08/29/18 at 09:00; Stop 08/29/18 at 11:29; Status DC Acetaminophen (Tylenol) 650 mg PRN Q6HRS PRN PO mild pain/fever; Start 08/27/18 at 21:15 Acetaminophen (Tylenol Supp) 650 mg PRN Q6HRS PRN NV MILD PAIN / TEMP Last administered on 09/02/18at 01:18; Start 08/27/18 at 21:15 Fentanyl Citrate (Fentanyl 2ml Vial) 25 mcg 1X ONCE IV Last administered on 08/28/18at 08:54; Start 08/28/18 at 08:45; Stop 08/28/18 at 08:47; Status DC Lidocaine/Sodium Bicarbonate (Buffered Lidocaine 1%) 3 ml STK-MED ONCE .ROUTE ; Start 08/28/18 at 09:55; Stop 08/28/18 at 09:56; Status DC Lidocaine HCl (Glydo (Lidocaine) Jelly) 1 meng 1X STAT MM Last administered on 08/28/18at 10:16; Start 08/28/18 at 10:16; Stop 08/28/18 at 10:19; Status DC Benzocaine (Hurricaine One) 1 spray 1X STAT MM Last administered on 08/28/18at 10:16; Start 08/28/18 at 10:16; Stop 08/28/18 at 10:19; Status DC Lidocaine/Sodium Bicarbonate (Buffered Lidocaine 1%) 3 ml 1X ONCE INJ ; Start 08/28/18 at 10:30; Stop 08/28/18 at 10:31; Status DC Haloperidol Lactate (Haldol Inj) 5 mg PRN Q6HRS PRN IVP AGITATION Last administered on 09/06/18at 05:53; Start 08/28/18 at 12:00 Fentanyl Citrate (Fentanyl 2ml Vial) 50 mcg PRN Q4HRS PRN IV PAIN Last administered on 08/28/18at 21:44; Start 08/28/18 at 15:30; Stop 09/05/18 at 02:11; Status DC Sodium Chloride 1,000 ml @ 1,000 mls/hr Q1H PRN IV hypotension; Start 08/28/18 at 14:00; Stop 08/28/18 at 19:59; Status DC Albumin Human 200 ml @ 200 mls/hr 1X PRN PRN IV Hypotension Last administered on 08/28/18at 14:50; Start 08/28/18 at 14:00; Stop 09/03/18 at 18:17; Status DC Sodium Chloride 1,000 ml @ 400 mls/hr Q2H30M PRN IV PATENCY; Start 08/28/18 at 14:00; Stop 08/29/18 at 01:59; Status DC Info (PHARMACY MONITORING -- do not chart) 1 each PRN DAILY PRN MC SEE COMMENTS; Start 08/28/18 at 15:30; Status UNV Info (PHARMACY MONITORING -- do not chart) 1 each PRN DAILY PRN MC SEE COMMENTS; Start 08/28/18 at 15:30; Status UNV Daptomycin 610 mg/ Sodium Chloride 50 ml @ 100 mls/hr Q48H IV ; Start 08/30/18 at 16:00; Stop 08/30/18 at 16:00; Status DC Famotidine (Pepcid Vial) 20 mg QHS IVP Last administered on 08/31/18at 20:59; Start 08/29/18 at 21:00; Stop 09/01/18 at 11:00; Status DC Acyclovir Sodium 340 mg/Dextrose 106.8 ml @ 106.8 mls/ hr Q12HR IV Last administered on 09/01/18at 11:05; Start 08/30/18 at 09:00; Stop 09/01/18 at 13:37; Status DC Sodium Chloride 1,000 ml @ 1,000 mls/hr Q1H PRN IV hypotension; Start 08/30/18 at 11:02; Stop 08/30/18 at 17:01; Status DC Sodium Chloride 1,000 ml @ 400 mls/hr Q2H30M PRN IV PATENCY; Start 08/30/18 at 11:02; Stop 08/30/18 at 23:01; Status DC Info (PHARMACY MONITORING -- do not chart) 1 each PRN DAILY PRN MC SEE COMMENTS; Start 08/30/18 at 11:15; Status UNV Info (PHARMACY MONITORING -- do not chart) 1 each PRN DAILY PRN MC SEE COMMENTS; Start 08/30/18 at 11:15; Status UNV Info (Tpn Per Pharmacy) 1 each PRN DAILY PRN MC SEE COMMENTS Last administered on 09/03/18at 10:53; Start 08/30/18 at 12:45; Stop 09/04/18 at 12:50; Status DC Sodium Chloride 90 meq/Potassium Chloride 50 meq/ Potassium Phosphate 3 mmol/ Ma gnesium Sulfate 10 meq/Calcium Gluconate 10 meq/ Multivitamins 10 ml/Chromium/ Copper/Manganese/ Seleni/Zn 1 ml/ Total Parenteral Nutrition/Amino Acids/Dextrose/ Fat Emulsion Intravenous 1,512 ml @ 63 mls/hr TPN CONT IV Last administered on 08/30/18at 21:40; Start 08/30/18 at 22:00; Stop 08/31/18 at 21:59; Status DC Ondansetron HCl (Zofran) 4 mg PRN Q6HRS PRN IV NAUSEA/VOMITING; Start 08/31/18 at 08:00 Haloperidol (Haldol) 2 mg PRN QID PRN PO AGITATION; Start 08/31/18 at 08:00; Stop 08/31/18 at 12:43; Status DC Haloperidol Lactate (HALDOL 2mg ORAL CONC) 2 mg PRN QID PRN PO AGITATION; Start 08/31/18 at 12:43 Sodium Chloride 90 meq/Potassium Chloride 50 meq/ Potassium Phosphate 5 mmol/ Magnesium Sulfate 3 meq/Calcium Gluconate 10 meq/ Multivitamins 10 ml/Chromium/ Copper/Manganese/ Seleni/Zn 1 ml/ Total Parenteral Nutrition/Amino Acids/Dextrose 1,512 ml @ 63 mls/hr TPN CONT IV Last administered on 08/31/18at 20:59; Start 08/31/18 at 22:00; Stop 09/01/18 at 21:59; Status DC Propofol 100 ml @ As Directed STK-MED ONCE IV ; Start 08/31/18 at 22:45; Stop 08/31/18 at 22:46; Status DC Succinylcholine Chloride (Anectine) 200 mg STK-MED ONCE .ROUTE ; Start 08/31/18 at 22:46; Stop 08/31/18 at 22:47; Status DC Atropine Sulfate (ATROPINE 1mg SYRINGE) 1 mg STK-MED ONCE .ROUTE ; Start 08/31/18 at 22:58; Stop 08/31/18 at 22:59; Status DC Fentanyl Citrate 30 ml @ 0 mls/hr CONT PRN IV SEE PROTOCOL Last administered on 09/06/18at 10:39; Start 09/01/18 at 00:00; Stop 09/06/18 at 10:59; Status DC Propofol 100 ml @ 0 mls/hr CONT PRN IV SEE PROTOCOL Last administered on 09/06/18at 08:14; Start 09/01/18 at 00:00; Stop 09/06/18 at 10:59; Status DC Chlorhexidine Gluconate (Peridex) 15 ml BID MM Last administered on 09/07/18at 21:21; Start 09/01/18 at 09:00; Stop 09/08/18 at 08:04; Status DC Midazolam HCl 100 ml @ 0 mls/hr CONT PRN IV SEE PROTOCOL; Start 09/01/18 at 00:00; Stop 09/08/18 at 11:30; Status DC Albuterol/ Ipratropium (Duoneb) 3 ml RTQID NEB Last administered on 09/12/18at 07:31; Start 09/01/18 at 08:00 Albuterol/ Ipratropium (Duoneb) 3 ml 1X ONCE NEB Last administered on 09/01/18at 01:10; Start 09/01/18 at 01:00; Stop 09/01/18 at 01:01; Status DC Succinylcholine Chloride (Anectine) 200 mg 1X ONCE IV Last administered on 08/31/18at 23:04; Start 09/01/18 at 01:15; Stop 09/01/18 at 01:16; Status DC Sodium Chloride 1,000 ml @ 1,000 mls/hr Q1H PRN IV hypotension; Start 09/01/18 at 07:00; Stop 09/01/18 at 12:59; Status DC Sodium Chloride (Normal Saline Flush) 10 ml 1X PRN PRN IV AP catheter pack; Start 09/01/18 at 07:00; Stop 09/02/18 at 06:59; Status DC Sodium Chloride (Normal Saline Flush) 10 ml 1X PRN PRN IV ACTIVITIES VOLUNTEER catheter pack; Start 09/01/18 at 07:00; Stop 09/02/18 at 06:59; Status DC Sodium Chloride 1,000 ml @ 400 mls/hr Q2H30M PRN IV PATENCY; Start 09/01/18 at 07:00; Stop 09/01/18 at 18:59; Status DC Info (PHARMACY MONITORING -- do not chart) 1 each PRN DAILY PRN MC SEE COMMENTS; Start 09/01/18 at 11:00; Status Cancel Info (PHARMACY MONITORING -- do not chart) 1 each PRN DAILY PRN MC SEE COMMENTS; Start 09/01/18 at 11:00; Status Cancel Famotidine (Pepcid Vial) 20 mg Q48H IVP Last administered on 09/11/18at 19:56; Start 09/03/18 at 21:00 Sodium Chloride 90 meq/Potassium Chloride 50 meq/ Potassium Phosphate 10 mmol/ Calcium Gluconate 10 meq/ Multivitamins 10 ml/Chromium/ Copper/Manganese/ Seleni/Zn 1 ml/ Total Parenteral Nutrition/Amino Acids/Dextrose 1,512 ml @ 63 mls/hr TPN CONT IV Last administered on 09/01/18at 22:11; Start 09/01/18 at 22:00; Stop 09/02/18 at 21:59; Status DC Piperacillin Sod/ Tazobactam Sod 2.25 gm/Sodium Chloride 50 ml @ 100 mls/hr Q6HRS IV Last administered on 09/11/18at 05:19; Start 09/01/18 at 14:00; Stop 09/11/18 at 09:29; Status DC Sodium Chloride 110 meq/Potassium Chloride 50 meq/ Potassium Phosphate 10 mmol/ Calcium Gluconate 10 meq/ Multivitamins 10 ml/Chromium/ Copper/Manganese/ Seleni/Zn 1 ml/ Magnesium Sulfate 3 meq/Total Parenteral Nutrition/Amino Acids/Dextrose 1,512 ml @ 63 mls/hr TPN CONT IV Last administered on 09/02/18at 22:13; Start 09/02/18 at 22:00; Stop 09/03/18 at 21:59; Status DC Darbepoetin Phil (Aranesp) 100 mcg [id number] SQ Last administered on 09/10/18at 21:35; Start 09/03/18 at 21:00 Sodium Chloride 130 meq/Potassium Acetate 20 meq/ Calcium Gluconate 10 meq/ Multivitamins 10 ml/Chromium/ Copper/Manganese/ Seleni/Zn 1 ml/ Magnesium Sulfate 3 meq/Total Parenteral Nutrition/Amino Acids/Dextrose 1,512 ml @ 63 mls/hr TPN CONT IV Last administered on 09/03/18at 22:12; Start 09/03/18 at 22:00; Stop 09/04/18 at 21:59; Status DC Albumin Human 200 ml @ 200 mls/hr 1X PRN PRN IV Hypotension; Start 09/03/18 at 10:00; Stop 09/03/18 at 21:00; Status DC Sodium Chloride (Normal Saline Flush) 10 ml 1X PRN PRN IV AP catheter pack; Start 09/03/18 at 10:00; Stop 09/03/18 at 21:00; Status DC Sodium Chloride (Normal Saline Flush) 10 ml 1X PRN PRN IV ACTIVITIES VOLUNTEER catheter pack; Start 09/03/18 at 10:00; Stop 09/03/18 at 21:00; Status DC Sodium Chloride 1,000 ml @ 400 mls/hr Q2H30M PRN IV PATENCY; Start 09/03/18 at 10:00; Stop 09/03/18 at 21:59; Status DC Info (PHARMACY MONITORING -- do not chart) 1 each PRN DAILY PRN MC SEE COMMENTS; Start 09/03/18 at 18:15; Status UNV Atropine Sulfate (ATROPINE 0.5mg SYRINGE) 0.5 mg STK-MED ONCE .ROUTE ; Start 08/31/18 at 08:06; Stop 09/04/18 at 08:07; Status DC Epinephrine HCl (EPINEPHrine SYRINGE) 3 mg STK-MED ONCE .ROUTE ; Start 08/31/18 at 08:06; Stop 09/04/18 at 08:07; Status DC Sodium Bicarbonate (Sodium Bicarb Adult 8.4% Syr) 100 meq STK-MED ONCE .ROUTE ; Start 08/31/18 at 08:06; Stop 09/04/18 at 08:07; Status DC Levofloxacin/ Dextrose 150 ml @ 100 mls/hr QODAY IV Last administered on 09/06/18at 10:28; Start 09/04/18 at 09:00; Stop 09/07/18 at 07:52; Status DC Sodium Chloride 1,000 ml @ 1,000 mls/hr Q1H PRN IV hypotension; Start 09/04/18 at 08:23; Stop 09/04/18 at 14:24; Status DC Albumin Human 200 ml @ 200 mls/hr 1X PRN PRN IV Hypotension; Start 09/04/18 at 08:30; Stop 09/04/18 at 14:29; Status DC Sodium Chloride 1,000 ml @ 400 mls/hr Q2H30M PRN IV PATENCY; Start 09/04/18 at 08:23; Stop 09/04/18 at 20:22; Status DC Info (PHARMACY MONITORING -- do not chart) 1 each PRN DAILY PRN MC SEE COMMENTS; Start 09/04/18 at 08:30; Stop 09/05/18 at 08:55; Status DC Info (PHARMACY MONITORING -- do not chart) 1 each PRN DAILY PRN MC SEE COMMENTS; Start 09/04/18 at 08:30; Status UNV Linezolid/Dextrose 300 ml @ 300 mls/hr Q12HR IV Last administered on 09/09/18at 21:21; Start 09/05/18 at 09:30; Stop 09/10/18 at 07:34; Status DC Sodium Chloride 1,000 ml @ 1,000 mls/hr Q1H PRN IV hypotension; Start 09/05/18 at 08:51; Stop 09/05/18 at 14:50; Status DC Sodium Chloride (Normal Saline Flush) 10 ml 1X PRN PRN IV AP catheter pack; Start 09/05/18 at 09:00; Stop 09/06/18 at 08:59; Status DC Sodium Chloride (Normal Saline Flush) 10 ml 1X PRN PRN IV ACTIVITIES VOLUNTEER catheter pack; Start 09/05/18 at 09:00; Stop 09/06/18 at 08:59; Status DC Sodium Chloride 1,000 ml @ 400 mls/hr Q2H30M PRN IV PATENCY; Start 09/05/18 at 08:51; Stop 09/05/18 at 20:50; Status DC Info (PHARMACY MONITORING -- do not chart) 1 each PRN DAILY PRN MC SEE COMMENTS; Start 09/05/18 at 09:00; Stop 09/05/18 at 09:00; Status DC Info (PHARMACY MONITORING -- do not chart) 1 each PRN DAILY PRN MC SEE COMMENTS; Start 09/05/18 at 09:00; Status Cancel Fentanyl Citrate (Fentanyl 2ml Vial) 25 mcg PRN Q2HR PRN IV MODERATE PAIN Last administered on 09/12/18at 02:57; Start 09/06/18 at 11:00 Dexmedetomidine HCl 200 mcg/ Sodium Chloride 50 ml @ 0 mls/hr CONT PRN IV PER PROTOCOL; Start 09/06/18 at 11:00; Stop 09/08/18 at 08:03; Status DC Sodium Chloride 500 ml @ 500 mls/hr 1X PRN PRN IV SEE COMMENTS; Start 09/06/18 at 11:00 Atropine Sulfate (ATROPINE 0.5mg SYRINGE) 0.5 mg PRN Q5MIN PRN IV SEE COMMENTS; Start 09/06/18 at 11:00 Sodium Chloride 1,000 ml @ 1,000 mls/hr Q1H PRN IV hypotension; Start 09/06/18 at 11:52; Stop 09/06/18 at 17:51; Status DC Diphenhydramine HCl (Benadryl) 25 mg 1X PRN PRN IV ITCHING; Start 09/06/18 at 12:00; Stop 09/07/18 at 11:59; Status DC Diphenhydramine HCl (Benadryl) 25 mg 1X PRN PRN IV ITCHING; Start 09/06/18 at 12:00; Stop 09/07/18 at 11:59; Status DC Sodium Chloride 1,000 ml @ 400 mls/hr Q2H30M PRN IV PATENCY; Start 09/06/18 at 11:52; Stop 09/06/18 at 23:51; Status DC Info (PHARMACY MONITORING -- do not chart) 1 each PRN DAILY PRN MC SEE COMMENTS; Start 09/06/18 at 12:00; Stop 09/06/18 at 12:00; Status DC Micafungin Sodium 100 mg/Dextrose 100 ml @ 100 mls/hr Q24H IV Last administered on 09/11/18at 09:23; Start 09/07/18 at 08:30 Sodium Chloride 1,000 ml @ 1,000 mls/hr Q1H PRN IV hypotension; Start 09/07/18 at 16:29; Stop 09/07/18 at 22:28; Status DC Diphenhydramine HCl (Benadryl) 25 mg 1X PRN PRN IV ITCHING; Start 09/07/18 at 16:30; Stop 09/08/18 at 16:29; Status DC Diphenhydramine HCl (Benadryl) 25 mg 1X PRN PRN IV ITCHING; Start 09/07/18 at 16:30; Stop 09/08/18 at 16:29; Status DC Sodium Chloride 1,000 ml @ 400 mls/hr Q2H30M PRN IV PATENCY; Start 09/07/18 at 16:29; Stop 09/08/18 at 04:28; Status DC Info (PHARMACY MONITORING -- do not chart) 1 each PRN DAILY PRN MC SEE COMMENTS; Start 09/07/18 at 16:30; Stop 09/11/18 at 10:21; Status DC Lidocaine/Sodium Bicarbonate (Buffered Lidocaine 1%) 3 ml 1X ONCE INJ Last administered on 09/10/18at 09:51; Start 09/10/18 at 08:45; Stop 09/10/18 at 08:46; Status DC Heparin Sodium (Porcine) (Heparin Sodium) 2,400 unit 1X ONCE INT CAT Last administered on 09/10/18at 09:51; Start 09/10/18 at 08:45; Stop 09/10/18 at 08:46; Status DC Sodium Chloride 1,000 ml @ 1,000 mls/hr Q1H PRN IV hypotension; Start 09/10/18 at 13:19; Stop 09/10/18 at 19:18; Status DC Diphenhydramine HCl (Benadryl) 25 mg 1X PRN PRN IV ITCHING; Start 09/10/18 at 13:30; Stop 09/11/18 at 13:29; Status DC Diphenhydramine HCl (Benadryl) 25 mg 1X PRN PRN IV ITCHING; Start 09/10/18 at 13:30; Stop 09/11/18 at 13:29; Status DC Sodium Chloride 1,000 ml @ 400 mls/hr Q2H30M PRN IV PATENCY; Start 09/10/18 at 13:19; Stop 09/11/18 at 01:18; Status DC Info (PHARMACY MONITORING -- do not chart) 1 each PRN DAILY PRN MC SEE COMMENTS; Start 09/10/18 at 13:30 Amlodipine Besylate (Norvasc) 2.5 mg DAILY PO Last administered on 09/11/18at 11:55; Start 09/11/18 at 11:00 Daptomycin 640 mg/ Sodium Chloride 50 ml @ 100 mls/hr ONCE ONCE IV Last administered on 09/11/18at 12:41; Start 09/11/18 at 12:00; Stop 09/11/18 at 12:29; Status DC Cefepime HCl (Maxipime) 1 gm Q24H IVP Last administered on 09/11/18at 11:53; Start 09/11/18 at 11:00 Lidocaine/Sodium Bicarbonate (Buffered Lidocaine 1%) 3 ml STK-MED ONCE .ROUTE ; Start 09/10/18 at 09:21; Stop 09/11/18 at 17:40; Status DC Heparin Sodium (Porcine) (Heparin Sodium) 10,000 unit STK-MED ONCE .ROUTE ; Start 09/10/18 at 09:21; Stop 09/11/18 at 17:40; Status DC Lidocaine/Sodium Bicarbonate (Buffered Lidocaine 1%) 3 ml STK-MED ONCE .ROUTE ; Start 09/10/18 at 09:37; Stop 09/11/18 at 17:41; Status DC Heparin Sodium (Porcine) (Heparin Sodium) 10,000 unit STK-MED ONCE .ROUTE ; Start 09/10/18 at 09:37; Stop 09/11/18 at 17:41; Status DC Sodium Chloride 1,000 ml @ 1,000 mls/hr Q1H PRN IV hypotension; Start 09/12/18 at 08:00; Stop 09/12/18 at 13:59; Status UNV Sodium Chloride 1,000 ml @ 400 mls/hr Q2H30M PRN IV PATENCY; Start 09/12/18 at 08:00; Stop 09/12/18 at 19:59; Status UNV Info (PHARMACY MONITORING -- do not chart) 1 each PRN DAILY PRN MC SEE COMMENTS; Start 09/12/18 at 12:45; Status UNV Info (PHARMACY MONITORING -- do not chart) 1 each PRN DAILY PRN MC SEE COMMENTS; Start 09/12/18 at 12:45; Status UNV Active Scripts Active Mycamine (Micafungin Sodium) 100 Mg Vial 100 Mg IV DAILY 10 Days Daptomycin 350 Mg Vial 640 Mg IV DAILY 14 Days [Cefepime Hcl] 1 GM Vial 1 Gm IVP Q24H 14 Days Potassium Chloride 20 Meq Tablet.er 20 Meq PO DAILY Orphenadrine Citrate 100 Mg Tablet.er 100 Mg PO Q12HR Anaprox Ds (Naproxen Sodium) 550 Mg Tablet 550 Mg PO Q12HR Reported Hydrochlorothiazide Tablet (Hydrochlorothiazide) 12.5 Mg Tablet 12.5 Mg PO DAILY Shilpi Allergy (Fexofenadine Hcl) 180 Mg Tablet 1 Tab PO DAILY Vitals/I & O Vital Sign - Last 24 Hours 09/11/18 09/11/18 09/11/18 09/11/18 15:17 15:55 19:16 20:00 Temp 98.2 98.8 98.2 98.8 Pulse 83 60 Resp 22 18 B/P (MAP) 166/97 (120) 131/51 (77) Pulse Ox 95 96 100 O2 Delivery Nasal Cannula Nasal Cannula Nasal Cannula Nasal Cannula O2 Flow Rate 3.0 2.0 2.0 3.0 09/11/18 09/11/18 09/12/18 09/12/18 20:19 23:25 02:57 03:27 Temp 98.1 98.1 Pulse 81 Resp 20 B/P (MAP) 161/87 (111) Pulse Ox 97 96 O2 Delivery Nasal Cannula Nasal Cannula Nasal Cannula Nasal Cannula O2 Flow Rate 2.0 3.0 2.0 2.0 09/12/18 09/12/18 09/12/18 09/12/18 03:51 06:45 07:00 07:32 Temp 98.6 98.2 98.6 98.2 Pulse 88 78 Resp 20 17 B/P (MAP) 146/84 (104) 154/91 (112) Pulse Ox 97 98 97 O2 Delivery Nasal Cannula Nasal Cannula Nasal Cannula Nasal Cannula O2 Flow Rate 3.0 2.0 3.0 2.0 Intake and Output 09/11/18 09/11/18 09/12/18 15:00 23:00 07:00 Intake Total 300 ml 300 ml 100 ml Output Total 250 ml Balance 300 ml 300 ml -150 ml MARIAM BOGGS III DO Sep 12, 2018 12:43
[2018-09-12] MEDS ORDERED: DIALYSIS PATIENT. MC PRN ×2 (12:45)
[2018-09-12] MEDS: CEFEPIME HCL IV Push 1 GM VIAL. IVP SCH (13:01)
[2018-09-12] MEDS: MICAFUNGIN 100 MG in IV DEXTROSE 5% 100ML 100 ML IV SCH (13:02)
[2018-09-12 14:48] VITALS: BP 160/77
--- NOTE | 2018-09-12 15:56 | NUR ---
CARISSA following pt. CARISSA phoned and faxed orders to [facility]. CARISSA informed by RN pt had pulled out HD cath and NG tube. Pt will need an access for HD before going to [facility]. RN reaching out to Physician to get orders. CARISSA provided RN with [facility] information incase access is placed today. Addendum: 09/12/18 at 1558 by SAM FERRER [facility] able to take pt today.
[2018-09-12 16:12] LABS: PARVO IGG 0.7 index (0.0-0.8); PARVO IGM 0.6 index (0.0-0.8)
--- NOTE | 2018-09-12 17:08 | PDOC ---
PROGRESS NOTES Subjective Subjective HPI - f/u of Anemia ROS - no bleed Objective Objective Vital Signs Date Time Temp Pulse Resp B/P (MAP) Pulse Ox O2 Delivery O2 Flow Rate FiO2 09/12/18 16:53 91 Nasal Cannula 1.0 09/12/18 14:48 98.2 82 16 160/77 (104) 98.2 Intake and Output 09/12/18 06:59 Intake Total 700 ml Output Total 250 ml Balance 450 ml Intake Oral 0 ml Tube Feeding 700 ml Output Urine Total 250 ml # Bowel Movements 1 Physical Exam Heart: Normal S1, Normal S2 General: Alert, Oriented X3 Lungs: Clear to auscultation Assessment Assessment Problems Medical Problems: (1) Acute renal failure Status: Acute Assessment/Plan 52 yo male presents with week long history of fever and found to have thrombocytopenia, ARF, elevated LFTs 1. Septic shock - Fever - Tick borne illness suspected. Per ID. 2. Dehydration 3. Acute renal failure. Cr 7.1, management per nephro. 4. Elevated LFTs 5. Thrombocytopenia due to sepsis, no clinical evidence of TTP, no evidence of schistocytes, normal retic and haptoglobin and Hb. He should be transfused plts if his plt count <10 or he develops active bleeding. Plt better at 30 on 08/27/18. Plt better at 47 on 08/28/18, Plt better at 58 on 08/29/18 Plt better at 67 on 08/30/18. Plt better at 73 on 08/31/18 Plt better at 139 on 09/04/18, Plt normal at 175, Monitor cbc. Plt normal at 347 on 09/12/18 No bleeding 6. Anemia, Hb 7.5 on 09/12/18 6.Hemochromatosis, he follows with Dr. Iverson at [facility] and has been undergoing phlebotomy. His last phlebotomy was in late June. Comment Review of Relevant I have reviewed the following items gera (where applicable) has been applied. Labs Laboratory Tests Test 09/11/18 03:25 09/12/18 03:20 White Blood Count 8.8 x10^3/uL (4.0-11.0) 9.2 x10^3/uL (4.0-11.0) Red Blood Count 2.56 x10^6/uL (4.30-5.70) 2.47 x10^6/uL (4.30-5.70) Hemoglobin 7.6 g/dL (13.0-17.5) 7.5 g/dL (13.0-17.5) Hematocrit 22.2 % (39.0-53.0) 21.5 % (39.0-53.0) Mean Corpuscular Volume 87 fL (79-100) 87 fL (79-100) Mean Corpuscular Hemoglobin 30 pg (25-35) 30 pg (25-35) Mean Corpuscular Hemoglobin Concent 34 g/dL (31-37) 35 g/dL (31-37) Red Cell Distribution Width 19.4 % (11.5-14.5) 19.3 % (11.5-14.5) Platelet Count 379 x10^3/uL (140-400) 347 x10^3/uL (140-400) Neutrophils (%) (Auto) 50 % (31-73) 48 % (31-73) Lymphocytes (%) (Auto) 31 % (24-48) 33 % (24-48) Monocytes (%) (Auto) 16 % (0-9) 14 % (0-9) Eosinophils (%) (Auto) 2 % (0-3) 3 % (0-3) Basophils (%) (Auto) 1 % (0-3) 2 % (0-3) Neutrophils # (Auto) 4.4 x10^3uL (1.8-7.7) 4.4 x10^3uL (1.8-7.7) Lymphocytes # (Auto) 2.7 x10^3/uL (1.0-4.8) 3.0 x10^3/uL (1.0-4.8) Monocytes # (Auto) 1.4 x10^3/uL (0.0-1.1) 1.3 x10^3/uL (0.0-1.1) Eosinophils # (Auto) 0.2 x10^3/uL (0.0-0.7) 0.3 x10^3/uL (0.0-0.7) Basophils # (Auto) 0.1 x10^3/uL (0.0-0.2) 0.2 x10^3/uL (0.0-0.2) Sodium Level 137 mmol/L (136-145) 137 mmol/L (136-145) Potassium Level 4.1 mmol/L (3.5-5.1) 4.1 mmol/L (3.5-5.1) Chloride Level 96 mmol/L (98-107) 96 mmol/L (98-107) Carbon Dioxide Level 26 mmol/L (21-32) 23 mmol/L (21-32) Anion Gap 15 (6-14) 18 (6-14) Blood Urea Nitrogen 65 mg/dL (8-26) 87 mg/dL (8-26) Creatinine 7.3 mg/dL (0.7-1.3) 9.6 mg/dL (0.7-1.3) Estimated GFR (Cockcroft-Gault) 7.9 5.7 BUN/Creatinine Ratio 9 (6-20) 9 (6-20) Glucose Level 113 mg/dL (70-99) 110 mg/dL (70-99) Calcium Level 8.0 mg/dL (8.5-10.1) 8.0 mg/dL (8.5-10.1) Total Bilirubin 0.8 mg/dL (0.2-1.0) 0.7 mg/dL (0.2-1.0) Aspartate Amino Transf (AST/SGOT) 45 U/L (15-37) 41 U/L (15-37) Alanine Aminotransferase (ALT/SGPT) 43 U/L (16-63) 43 U/L (16-63) Alkaline Phosphatase 104 U/L (46-116) 90 U/L (46-116) Total Protein 7.1 g/dL (6.4-8.2) 6.7 g/dL (6.4-8.2) Albumin 2.1 g/dL (3.4-5.0) 2.0 g/dL (3.4-5.0) Albumin/Globulin Ratio 0.4 (1.0-1.7) 0.4 (1.0-1.7) Laboratory Tests Test 09/12/18 03:20 White Blood Count 9.2 x10^3/uL (4.0-11.0) Red Blood Count 2.47 x10^6/uL (4.30-5.70) Hemoglobin 7.5 g/dL (13.0-17.5) Hematocrit 21.5 % (39.0-53.0) Mean Corpuscular Volume 87 fL (79-100) Mean Corpuscular Hemoglobin 30 pg (25-35) Mean Corpuscular Hemoglobin Concent 35 g/dL (31-37) Red Cell Distribution Width 19.3 % (11.5-14.5) Platelet Count 347 x10^3/uL (140-400) Neutrophils (%) (Auto) 48 % (31-73) Lymphocytes (%) (Auto) 33 % (24-48) Monocytes (%) (Auto) 14 % (0-9) Eosinophils (%) (Auto) 3 % (0-3) Basophils (%) (Auto) 2 % (0-3) Neutrophils # (Auto) 4.4 x10^3uL (1.8-7.7) Lymphocytes # (Auto) 3.0 x10^3/uL (1.0-4.8) Monocytes # (Auto) 1.3 x10^3/uL (0.0-1.1) Eosinophils # (Auto) 0.3 x10^3/uL (0.0-0.7) Basophils # (Auto) 0.2 x10^3/uL (0.0-0.2) Sodium Level 137 mmol/L (136-145) Potassium Level 4.1 mmol/L (3.5-5.1) Chloride Level 96 mmol/L (98-107) Carbon Dioxide Level 23 mmol/L (21-32) Anion Gap 18 (6-14) Blood Urea Nitrogen 87 mg/dL (8-26) Creatinine 9.6 mg/dL (0.7-1.3) Estimated GFR (Cockcroft-Gault) 5.7 BUN/Creatinine Ratio 9 (6-20) Glucose Level 110 mg/dL (70-99) Calcium Level 8.0 mg/dL (8.5-10.1) Total Bilirubin 0.7 mg/dL (0.2-1.0) Aspartate Amino Transf (AST/SGOT) 41 U/L (15-37) Alanine Aminotransferase (ALT/SGPT) 43 U/L (16-63) Alkaline Phosphatase 90 U/L (46-116) Total Protein 6.7 g/dL (6.4-8.2) Albumin 2.0 g/dL (3.4-5.0) Albumin/Globulin Ratio 0.4 (1.0-1.7) Microbiology 09/11/18 Blood Culture - Preliminary, Resulted NO GROWTH AFTER 1 DAY 08/29/18 CSF Gram Stain - Final, Complete 08/27/18 Stool Culture - Final, Complete 08/27/18 Stool Culture Result 1 (LOTUS) - Final, Complete 08/27/18 Campylobacter Antigen Assay - Final, Complete 08/27/18 Campylobactor Result 1 - Final, Complete 08/27/18 Shiga Toxin Test - Final, Complete 09/05/18 - Final, Complete 09/05/18 - Final, Complete 09/05/18 - Final, Complete 09/05/18 Gram Stain Evaluation - Final, Complete 09/05/18 Sputum Culture - Final, Complete 09/05/18 Sputum Result 1 - Final, Complete 09/04/18 Urine Culture - Final, Complete 09/04/18 Urine Culture Result 1 (LOTUS) - Final, Complete Medications Current Medications Sodium Chloride 1,000 ml @ 1,000 mls/hr 1X ONCE IV Last administered on 08/25/18at 20:38; Start 08/25/18 at 19:15; Stop 08/25/18 at 20:14; Status DC Ibuprofen (Motrin) 600 mg 1X ONCE PO Last administered on 08/25/18 20:38; Start 08/25/18 at 19:45; Stop 08/25/18 at 19:49; Status DC Sodium Chloride 1,000 ml @ 1,000 mls/hr 1X ONCE IV Last administered on 08/25/18 20:30; Start 08/25/18 at 20:30; Stop 08/25/18 at 21:29; Status DC Ceftriaxone Sodium (Rocephin) 1 gm 1X ONCE IVP Last administered on 08/25/18at 20:36; Start 08/25/18 at 20:30; Stop 08/25/18 at 20:31; Status DC Vancomycin HCl 2 gm/Sodium Chloride 500 ml @ 250 mls/hr 1X ONCE IV Last administered on 08/25/18at 23:10; Start 08/25/18 at 21:30; Stop 08/25/18 at 23:29; Status DC Sodium Chloride 1,000 ml @ 1,000 mls/hr 1X ONCE IV Last administered on 08/25/18at 23:51; Start 08/25/18 at 21:00; Stop 08/25/18 at 21:59; Status DC Piperacillin Sod/ Tazobactam Sod 4.5 gm/Sodium Chloride 100 ml @ 200 mls/hr 1X ONCE IV ; Start 08/25/18 at 21:15; Stop 08/25/18 at 21:44; Status DC Aztreonam (Azactam) 2 gm 1X ONCE IVP Last administered on 08/25/18at 21:15; Start 08/25/18 at 21:15; Stop 08/25/18 at 21:16; Status DC Magnesium Sulfate 50 ml @ 25 mls/hr 1X ONCE IV Last administered on 08/25/18at 23:51; Start 08/25/18 at 21:15; Stop 08/25/18 at 23:14; Status DC Ondansetron HCl (Zofran) 4 mg PRN Q8HRS PRN IV NAUSEA/VOMITING; Start 08/25/18 at 21:15; Stop 08/26/18 at 21:14; Status DC Acetaminophen (Tylenol) 650 mg PRN Q4HRS PRN PO FEVER; Start 08/25/18 at 21:15; Stop 08/26/18 at 21:14; Status DC Sodium Chloride 1,000 ml @ 125 mls/hr 1X ONCE IV Last administered on 08/25/18at 23:09; Start 08/25/18 at 21:15; Stop 08/26/18 at 05:14; Status DC Daptomycin 610 mg/ Sodium Chloride 50 ml @ 100 mls/hr QODAY IV Last administered on 08/27/18at 08:59; Start 08/27/18 at 09:00; Stop 08/28/18 at 15:40; Status DC Meropenem 500 mg/ Sodium Chloride 50 ml @ 100 mls/hr 1X ONCE IV Last administered on 08/25/18at 22:12; Start 08/25/18 at 22:00; Stop 08/25/18 at 22:29; Status DC Doxycycline Hyclate 100 mg/ Dextrose 100 ml @ 50 mls/hr Q12HR IV Last administered on 09/03/18at 22:11; Start 08/26/18 at 09:00; Stop 09/04/18 at 08:11; Status DC Meropenem 500 mg/ Sodium Chloride 50 ml @ 100 mls/hr DAILY IV Last administered on 08/29/18at 10:13; Start 08/26/18 at 09:00; Stop 08/30/18 at 08:1 7; Status DC Sodium Chloride (Normal Saline Flush) 10 ml QSHIFT PRN IV AFTER MEDS AND BLOOD DRAWS; Start 08/26/18 at 09:15 Norepinephrine Bitartrate 250 ml @ 0 mls/hr CONT PRN IV PER PROTOCOL Last administered on 08/27/18at 10:21; Start 08/26/18 at 09:15; Stop 08/30/18 at 17:20; Status DC Famotidine (Pepcid) 20 mg DAILY PO Last administered on 08/27/18at 08:14; Start 08/26/18 at 12:00; Stop 08/27/18 at 14:36; Status DC Sodium Chloride 1,000 ml @ 1,000 mls/hr Q1H PRN IV hypotension; Start 08/26/18 at 11:51; Stop 08/26/18 at 17:50; Status DC Sodium Chloride (Normal Saline Flush) 10 ml 1X PRN PRN IV AP catheter pack; Start 08/26/18 at 12:00; Stop 08/27/18 at 11:59; Status DC Sodium Chloride (Normal Saline Flush) 10 ml 1X PRN PRN IV SALES AND EVENTS COORDINATOR catheter pack; S tart 08/26/18 at 12:00; Stop 08/27/18 at 11:59; Status DC Sodium Chloride 1,000 ml @ 400 mls/hr Q2H30M PRN IV PATENCY; Start 08/26/18 at 11:51; Stop 08/26/18 at 23:50; Status DC Info (PHARMACY MONITORING -- do not chart) 1 each PRN DAILY PRN MC SEE COMM ENTS; Start 08/26/18 at 12:00; Status UNV Info (PHARMACY MONITORING -- do not chart) 1 each PRN DAILY PRN MC SEE COMMENTS; Start 08/26/18 at 12:00; Stop 09/01/18 at 10:59; Status DC Lidocaine/Sodium Bicarbonate (Buffered Lidocaine 1%) 4 ml 1X ONCE INJ Last administered on 08/26/18at 12:45; Start 08/26/18 at 12:45; Stop 08/26/18 at 12:48; Status DC Heparin Sodium (Porcine) (Heparin Sodium) 2,500 unit 1X ONCE INT CAT Last administered on 08/26/18at 12:45; Start 08/26/18 at 12:45; Stop 08/26/18 at 12:48; Status DC Lidocaine/Sodium Bicarbonate (Buffered Lidocaine 1%) 3 ml STK-MED ONCE .ROUTE ; Start 08/26/18 at 12:49; Stop 08/26/18 at 12:50; Status DC Heparin Sodium (Porcine) (Heparin Sodium) 10,000 unit STK-MED ONCE .ROUTE ; Start 08/26/18 at 12:49; Stop 08/26/18 at 12:50; Status DC Lactobacillus Rhamnosus (Culturelle) 1 cap BID PO Last administered on 09/08/18at 09:34; Start 08/26/18 at 21:00; Stop 09/08/18 at 10:55; Status DC Acetaminophen (Tylenol) 325 mg STK-MED ONCE PO ; Start 08/27/18 at 00:43; Stop 08/27/18 at 00:44; Status DC Sodium Chloride 1,000 ml @ 1,000 mls/hr 1X ONCE IV Last administered on 08/27/18at 11:05; Start 08/27/18 at 10:30; Stop 08/27/18 at 11:29; Status DC Sodium Chloride 1,000 ml @ 1,000 mls/hr Q1H PRN IV hypotension; Start 08/27/18 at 11:28; Stop 08/27/18 at 17:27; Status DC Albumin Human 200 ml @ 200 mls/hr 1X PRN PRN IV Hypotension; Start 08/27/18 at 11:30; Stop 08/27/18 at 17:29; Status DC Sodium Chloride (Normal Saline Flush) 10 ml 1X PRN PRN IV AP catheter pack; St art 08/27/18 at 11:30; Stop 08/28/18 at 11:29; Status DC Sodium Chloride (Normal Saline Flush) 10 ml 1X PRN PRN IV SALES AND EVENTS COORDINATOR catheter pack; Start 08/27/18 at 11:30; Stop 08/28/18 at 11:29; Status DC Sodium Chloride 1,000 ml @ 400 mls/hr Q2H30M PRN IV PATENCY; Start 08/27/18 at 11:28; Stop 08/27/18 at 23:27; Status DC Info (PHARMACY MONITORING -- do not chart) 1 each PRN DAILY PRN MC SEE COMMENTS; Start 08/27/18 at 11:30; Status UNV Info (PHARMACY MONITORING -- do not chart) 1 each PRN DAILY PRN MC SEE COMME NTS; Start 08/27/18 at 11:30; Status UNV Famotidine (Pepcid) 20 mg Q48H PO ; Start 08/29/18 at 09:00; Stop 08/29/18 at 11:29; Status DC Acetaminophen (Tylenol) 650 mg PRN Q6HRS PRN PO mild pain/fever; Start 08/27/18 at 21:15 Acetaminophen (Tylenol Supp) 650 mg PRN Q6HRS PRN IA MILD PAIN / TEMP Last administered on 09/02/18at 01:18; Start 08/27/18 at 21:15 Fentanyl Citrate (Fentanyl 2ml Vial) 25 mcg 1X ONCE IV Last administered on 08/28/18at 08:54; Start 08/28/18 at 08:45; Stop 08/28/18 at 08:47; Status DC Lidocaine/Sodium Bicarbonate (Buffered Lidocaine 1%) 3 ml STK-MED ONCE .ROUTE ; Start 08/28/18 at 09:55; Stop 08/28/18 at 09:56; Status DC Lidocaine HCl (Glydo (Lidocaine) Jelly) 1 meng 1X STAT MM Last administered on 08/28/18at 10:16; Start 08/28/18 at 10:16; Stop 08/28/18 at 10:19; Status DC Benzocaine (Hurricaine One) 1 spray 1X STAT MM Last administered on 08/28/18at 10:16; Start 08/28/18 at 10:16; Stop 08/28/18 at 10:19; Status DC Lidocaine/Sodium Bicarbonate (Buffered Lidocaine 1%) 3 ml 1X ONCE INJ ; Start 08/28/18 at 10:30; Stop 08/28/18 at 10:31; Status DC Haloperidol Lactate (Haldol Inj) 5 mg PRN Q6HRS PRN IVP AGITATION Last administered on 09/06/18at 05:53; Start 08/28/18 at 12:00 Fentanyl Citrate (Fentanyl 2ml Vial) 50 mcg PRN Q4HRS PRN IV PAIN Last administered on 08/28/18at 21:44; Start 08/28/18 at 15:30; Stop 09/05/18 at 02:11; Status DC Sodium Chloride 1,000 ml @ 1,000 mls/hr Q1H PRN IV hypotension; Start 08/28/18 at 14:00; Stop 08/28/18 at 19:59; Status DC Albumin Human 200 ml @ 200 mls/hr 1X PRN PRN IV Hypotension Last administered on 08/28/18at 14:50; Start 08/28/18 at 14:00; Stop 09/03/18 at 18:17; Status DC Sodium Chloride 1,000 ml @ 400 mls/hr Q2H30M PRN IV PATENCY; Start 08/28/18 at 14:00; Stop 08/29/18 at 01:59; Status DC Info (PHARMACY MONITORING -- do not chart) 1 each PRN DAILY PRN MC SEE COMMENTS; Start 08/28/18 at 15:30; Status UNV Info (PHARMACY MONITORING -- do not chart) 1 each PRN DAILY PRN MC SEE COMMENTS; Start 08/28/18 at 15:30; Status UNV Daptomycin 610 mg/ Sodium Chloride 50 ml @ 100 mls/hr Q48H IV ; Start 08/30/18 at 16:00; Stop 08/30/18 at 16:00; Status DC Famotidine (Pepcid Vial) 20 mg QHS IVP Last administered on 08/31/18at 20:59; Start 08/29/18 at 21:00; Stop 09/01/18 at 11:00; Status DC Acyclovir Sodium 340 mg/Dextrose 106.8 ml @ 106.8 mls/ hr Q12HR IV Last administered on 09/01/18at 11:05; Start 08/30/18 at 09:00; Stop 09/01/18 at 13:37; Status DC Sodium Chloride 1,000 ml @ 1,000 mls/hr Q1H PRN IV hypotension; Start 08/30/18 at 11:02; Stop 08/30/18 at 17:01; Status DC Sodium Chloride 1,000 ml @ 400 mls/hr Q2H30M PRN IV PATENCY; Start 08/30/18 at 11:02; Stop 08/30/18 at 23:01; Status DC Info (PHARMACY MONITORING -- do not chart) 1 each PRN DAILY PRN MC SEE COMMENTS; Start 08/30/18 at 11:15; Status UNV Info (PHARMACY MONITORING -- do not chart) 1 each PRN DAILY PRN MC SEE COMMENTS; Start 08/30/18 at 11:15; Status UNV Info (Tpn Per Pharmacy) 1 each PRN DAILY PRN MC SEE COMMENTS Last administered on 09/03/18at 10:53; Start 08/30/18 at 12:45; Stop 09/04/18 at 12:50; Status DC Sodium Chloride 90 meq/Potassium Chloride 50 meq/ Potassium Phosphate 3 mmol/ Magnesium Sulfate 10 meq/Calcium Gluconate 10 meq/ Multivitamins 10 ml/Chromium/ Copper/Manganese/ Seleni/Zn 1 ml/ Total Parenteral Nutrition/Amino Acids/Dextrose/ Fat Emulsion Intravenous 1,512 ml @ 63 mls/hr TPN CONT IV Last administered on 08/30/18at 21:40; Start 08/30/18 at 22:00; Stop 08/31/18 at 21:59; Status DC Ondansetron HCl (Zofran) 4 mg PRN Q6HRS PRN IV NAUSEA/VOMITING; Start 08/31/18 at 08:00 Haloperidol (Haldol) 2 mg PRN QID PRN PO AGITATION; Start 08/31/18 at 08:00; Stop 08/31/18 at 12:43; Status DC Haloperidol Lactate (HALDOL 2mg ORAL CONC) 2 mg PRN QID PRN PO AGITATION; Start 08/31/18 at 12:43 Sodium Chloride 90 meq/Potassium Chloride 50 meq/ Potassium Phosphate 5 mmol/ Magnesium Sulfate 3 meq/Calcium Gluconate 10 meq/ Multivitamins 10 ml/Chromium/ Copper/Manganese/ Seleni/Zn 1 ml/ Total Parenteral Nutrition/Amino Acids/Dextrose 1,512 ml @ 63 mls/hr TPN CONT IV Last administered on 08/31/18at 20:59; Start 08/31/18 at 22:00; Stop 09/01/18 at 21:59; Status DC Propofol 100 ml @ As Directed STK-MED ONCE IV ; Start 08/31/18 at 22:45; Stop 08/31/18 at 22:46; Status DC Succinylcholine Chloride (Anectine) 200 mg STK-MED ONCE .ROUTE ; Start 08/31/18 at 22:46; Stop 08/31/18 at 22:47; Status DC Atropine Sulfate (ATROPINE 1mg SYRINGE) 1 mg STK-MED ONCE .ROUTE ; Start 08/31/18 at 22:58; Stop 08/31/18 at 22:59; Status DC Fentanyl Citrate 30 ml @ 0 mls/hr CONT PRN IV SEE PROTOCOL Last administered on 09/06/18at 10:39; Start 09/01/18 at 00:00; Stop 09/06/18 at 10:59; Status DC Propofol 100 ml @ 0 mls/hr CONT PRN IV SEE PROTOCOL Last administered on 09/06/18at 08:14; Start 09/01/18 at 00:00; Stop 09/06/18 at 10:59; Status DC Chlorhexidine Gluconate (Peridex) 15 ml BID MM Last administered on 09/07/18at 21:21; Start 09/01/18 at 09:00; Stop 09/08/18 at 08:04; Status DC Midazolam HCl 100 ml @ 0 mls/hr CONT PRN IV SEE PROTOCOL; Start 09/01/18 at 00:00; Stop 09/08/18 at 11:30; Status DC Albuterol/ Ipratropium (Duoneb) 3 ml RTQID NEB Last administered on 09/12/18at 16:53; Start 09/01/18 at 08:00 Albuterol/ Ipratropium (Duoneb) 3 ml 1X ONCE NEB Last administered on 09/01/18at 01:10; Start 09/01/18 at 01:00; Stop 09/01/18 at 01:01; Status DC Succinylcholine Chloride (Anectine) 200 mg 1X ONCE IV Last administered on 08/31/18at 23:04; Start 09/01/18 at 01:15; Stop 09/01/18 at 01:16; Status DC Sodium Chloride 1,000 ml @ 1,000 mls/hr Q1H PRN IV hypotension; Start 09/01/18 at 07:00; Stop 09/01/18 at 12:59; Status DC Sodium Chloride (Normal Saline Flush) 10 ml 1X PRN PRN IV AP catheter pack; Start 09/01/18 at 07:00; Stop 09/02/18 at 06:59; Status DC Sodium Chloride (Normal Saline Flush) 10 ml 1X PRN PRN IV SALES AND EVENTS COORDINATOR catheter pack; Start 09/01/18 at 07:00; Stop 09/02/18 at 06:59; Status DC Sodium Chloride 1,000 ml @ 400 mls/hr Q2H30M PRN IV PATENCY; Start 09/01/18 at 07:00; Stop 09/01/18 at 18:59; Status DC Info (PHARMACY MONITORING -- do not chart) 1 each PRN DAILY PRN MC SEE COMMENTS; Start 09/01/18 at 11:00; Status Cancel Info (PHARMACY MONITORING -- do not chart) 1 each PRN DAILY PRN MC SEE COMMENTS; Start 09/01/18 at 11:00; Status Cancel Famotidine (Pepcid Vial) 20 mg Q48H IVP Last administered on 09/11/18at 19:56; Start 09/03/18 at 21:00 Sodium Chloride 90 meq/Potassium Chloride 50 meq/ Potassium Phosphate 10 mmol/ Calcium Gluconate 10 meq/ Multivitamins 10 ml/Chromium/ Copper/Manganese/ Seleni/Zn 1 ml/ Total Parenteral Nutrition/Amino Acids/Dextrose 1,512 ml @ 63 mls/hr TPN CONT IV Last administered on 09/01/18at 22:11; Start 09/01/18 at 22:00; Stop 09/02/18 at 21:59; Status DC Piperacillin Sod/ Tazobactam Sod 2.25 gm/Sodium Chloride 50 ml @ 100 mls/hr Q6HRS IV Last administered on 09/11/18at 05:19; Start 09/01/18 at 14:00; Stop 09/11/18 at 09:29; Status DC Sodium Chloride 110 meq/Potassium Chloride 50 meq/ Potassium Phosphate 10 mmol/ Calcium Gluconate 10 meq/ Multivitamins 10 ml/Chromium/ Copper/Manganese/ Seleni/Zn 1 ml/ Magnesium Sulfate 3 meq/Total Parenteral Nutrition/Amino Acids/Dextrose 1,512 ml @ 63 mls/hr TPN CONT IV Last administered on 09/02/18at 22:13; Start 09/02/18 at 22:00; Stop 09/03/18 at 21:59; Status DC Darbepoetin Phil (Aranesp) 100 mcg [id number] SQ Last administered on 09/10/18at 21:35; Start 09/03/18 at 21:00 Sodium Chloride 130 meq/Potassium Acetate 20 meq/ Calcium Gluconate 10 meq/ Multivitamins 10 ml/Chromium/ Copper/Manganese/ Seleni/Zn 1 ml/ Magnesium Sulfate 3 meq/Total Parenteral Nutrition/Amino Acids/Dextrose 1,512 ml @ 63 mls/hr TPN CONT IV Last administered on 09/03/18at 22:12; Start 09/03/18 at 22:00; Stop 09/04/18 at 21:59; Status DC Albumin Human 200 ml @ 200 mls/hr 1X PRN PRN IV Hypotension; Start 09/03/18 at 10:00; Stop 09/03/18 at 21:00; Status DC Sodium Chloride (Normal Saline Flush) 10 ml 1X PRN PRN IV AP catheter pack; Start 09/03/18 at 10:00; Stop 09/03/18 at 21:00; Status DC Sodium Chloride (Normal Saline Flush) 10 ml 1X PRN PRN IV SALES AND EVENTS COORDINATOR catheter pack; Start 09/03/18 at 10:00; Stop 09/03/18 at 21:00; Status DC Sodium Chloride 1,000 ml @ 400 mls/hr Q2H30M PRN IV PATENCY; Start 09/03/18 at 10:00; Stop 09/03/18 at 21:59; Status DC Info (PHARMACY MONITORING -- do not chart) 1 each PRN DAILY PRN MC SEE COMMENTS; Start 09/03/18 at 18:15; Status UNV Atropine Sulfate (ATROPINE 0.5mg SYRINGE) 0.5 mg STK-MED ONCE .ROUTE ; Start 08/31/18 at 08:06; Stop 09/04/18 at 08:07; Status DC Epinephrine HCl (EPINEPHrine SYRINGE) 3 mg STK-MED ONCE .ROUTE ; Start 08/31/18 at 08:06; Stop 09/04/18 at 08:07; Status DC Sodium Bicarbonate (Sodium Bicarb Adult 8.4% Syr) 100 meq STK-MED ONCE .ROUTE ; Start 08/31/18 at 08:06; Stop 09/04/18 at 08:07; Status DC Levofloxacin/ Dextrose 150 ml @ 100 mls/hr QODAY IV Last administered on 09/06/18at 10:28; Start 09/04/18 at 09:00; Stop 09/07/18 at 07:52; Status DC Sodium Chloride 1,000 ml @ 1,000 mls/hr Q1H PRN IV hypotension; Start 09/04/18 at 08:23; Stop 09/04/18 at 14:24; Status DC Albumin Human 200 ml @ 200 mls/hr 1X PRN PRN IV Hypotension; Start 09/04/18 at 08:30; Stop 09/04/18 at 14:29; Status DC Sodium Chloride 1,000 ml @ 400 mls/hr Q2H30M PRN IV PATENCY; Start 09/04/18 at 08:23; Stop 09/04/18 at 20:22; Status DC Info (PHARMACY MONITORING -- do not chart) 1 each PRN DAILY PRN MC SEE COMMENTS; Start 09/04/18 at 08:30; Stop 09/05/18 at 08:55; Status DC Info (PHARMACY MONITORING -- do not chart) 1 each PRN DAILY PRN MC SEE COMMENTS; Start 09/04/18 at 08:30; Status UNV Linezolid/Dextrose 300 ml @ 300 mls/hr Q12HR IV Last administered on 09/09/18at 21:21; Start 09/05/18 at 09:30; Stop 09/10/18 at 07:34; Status DC Sodium Chloride 1,000 ml @ 1,000 mls/hr Q1H PRN IV hypotension; Start 09/05/18 at 08:51; Stop 09/05/18 at 14:50; Status DC Sodium Chloride (Normal Saline Flush) 10 ml 1X PRN PRN IV AP catheter pack; Start 09/05/18 at 09:00; Stop 09/06/18 at 08:59; Status DC Sodium Chloride (Normal Saline Flush) 10 ml 1X PRN PRN IV [employer] catheter pack; Start 09/05/18 at 09:00; Stop 09/06/18 at 08:59; Status DC Sodium Chloride 1,000 ml @ 400 mls/hr Q2H30M PRN IV PATENCY; Start 09/05/18 at 08:51; Stop 09/05/18 at 20:50; Status DC Info (PHARMACY MONITORING -- do not chart) 1 each PRN DAILY PRN MC SEE COMMENTS; Start 09/05/18 at 09:00; Stop 09/05/18 at 09:00; Status DC Info (PHARMACY MONITORING -- do not chart) 1 each PRN DAILY PRN MC SEE COMMENTS; Start 09/05/18 at 09:00; Status Cancel Fentanyl Citrate (Fentanyl 2ml Vial) 25 mcg PRN Q2HR PRN IV MODERATE PAIN Last administered on 09/12/18at 02:57; Start 09/06/18 at 11:00 Dexmedetomidine HCl 200 mcg/ Sodium Chloride 50 ml @ 0 mls/hr CONT PRN IV PER PROTOCOL; Start 09/06/18 at 11:00; Stop 09/08/18 at 08:03; Status DC Sodium Chloride 500 ml @ 500 mls/hr 1X PRN PRN IV SEE COMMENTS; Start 09/06/18 at 11:00 Atropine Sulfate (ATROPINE 0.5mg SYRINGE) 0.5 mg PRN Q5MIN PRN IV SEE COMMENTS; Start 09/06/18 at 11:00 Sodium Chloride 1,000 ml @ 1,000 mls/hr Q1H PRN IV hypotension; Start 09/06/18 at 11:52; Stop 09/06/18 at 17:51; Status DC Diphenhydramine HCl (Benadryl) 25 mg 1X PRN PRN IV ITCHING; Start 09/06/18 at 12:00; Stop 09/07/18 at 11:59; Status DC Diphenhydramine HCl (Benadryl) 25 mg 1X PRN PRN IV ITCHING; Start 09/06/18 at 12:00; Stop 09/07/18 at 11:59; Status DC Sodium Chloride 1,000 ml @ 400 mls/hr Q2H30M PRN IV PATENCY; Start 09/06/18 at 11:52; Stop 09/06/18 at 23:51; Status DC Info (PHARMACY MONITORING -- do not chart) 1 each PRN DAILY PRN MC SEE COMMENTS; Start 09/06/18 at 12:00; Stop 09/06/18 at 12:00; Status DC Micafungin Sodium 100 mg/Dextrose 100 ml @ 100 mls/hr Q24H IV Last administered on 09/12/18at 13:02; Start 09/07/18 at 08:30 Sodium Chloride 1,000 ml @ 1,000 mls/hr Q1H PRN IV hypotension; Start 09/07/18 at 16:29; Stop 09/07/18 at 22:28; Status DC Diphenhydramine HCl (Benadryl) 25 mg 1X PRN PRN IV ITCHING; Start 09/07/18 at 16:30; Stop 09/08/18 at 16:29; Status DC Diphenhydramine HCl (Benadryl) 25 mg 1X PRN PRN IV ITCHING; Start 09/07/18 at 16:30; Stop 09/08/18 at 16:29; Status DC Sodium Chloride 1,000 ml @ 400 mls/hr Q2H30M PRN IV PATENCY; Start 09/07/18 at 16:29; Stop 09/08/18 at 04:28; Status DC Info (PHARMACY MONITORING -- do not chart) 1 each PRN DAILY PRN MC SEE COMMENTS; Start 09/07/18 at 16:30; Stop 09/11/18 at 10:21; Status DC Lidocaine/Sodium Bicarbonate (Buffered Lidocaine 1%) 3 ml 1X ONCE INJ Last administered on 09/10/18at 09:51; Start 09/10/18 at 08:45; Stop 09/10/18 at 08:46; Status DC Heparin Sodium (Porcine) (Heparin Sodium) 2,400 unit 1X ONCE INT CAT Last administered on 09/10/18at 09:51; Start 09/10/18 at 08:45; Stop 09/10/18 at 08:46; Status DC Sodium Chloride 1,000 ml @ 1,000 mls/hr Q1H PRN IV hypotension; Start 09/10/18 at 13:19; Stop 09/10/18 at 19:18; Status DC Diphenhydramine HCl (Benadryl) 25 mg 1X PRN PRN IV ITCHING; Start 09/10/18 at 13:30; Stop 09/11/18 at 13:29; Status DC Diphenhydramine HCl (Benadryl) 25 mg 1X PRN PRN IV ITCHING; Start 09/10/18 at 13:30; Stop 09/11/18 at 13:29; Status DC Sodium Chloride 1,000 ml @ 400 mls/hr Q2H30M PRN IV PATENCY; Start 09/10/18 at 13:19; Stop 09/11/18 at 01:18; Status DC Info (PHARMACY MONITORING -- do not chart) 1 each PRN DAILY PRN MC SEE COMMENTS; Start 09/10/18 at 13:30 Amlodipine Besylate (Norvasc) 2.5 mg DAILY PO Last administered on 09/11/18at 11:55; Start 09/11/18 at 11:00 Daptomycin 640 mg/ Sodium Chloride 50 ml @ 100 mls/hr ONCE ONCE IV Last administered on 09/11/18at 12:41; Start 09/11/18 at 12:00; Stop 09/11/18 at 12:29; Status DC Cefepime HCl (Maxipime) 1 gm Q24H IVP Last administered on 09/12/18at 13:01; Start 09/11/18 at 11:00 Lidocaine/Sodium Bicarbonate (Buffered Lidocaine 1%) 3 ml STK-MED ONCE .ROUTE ; Start 09/10/18 at 09:21; Stop 09/11/18 at 17:40; Status DC Heparin Sodium (Porcine) (Heparin Sodium) 10,000 unit STK-MED ONCE .ROUTE ; Start 09/10/18 at 09:21; Stop 09/11/18 at 17:40; Status DC Lidocaine/Sodium Bicarbonate (Buffered Lidocaine 1%) 3 ml STK-MED ONCE .ROUTE ; Start 09/10/18 at 09:37; Stop 09/11/18 at 17:41; Status DC Heparin Sodium (Porcine) (Heparin Sodium) 10,000 unit STK-MED ONCE .ROUTE ; Start 09/10/18 at 09:37; Stop 09/11/18 at 17:41; Status DC Sodium Chloride 1,000 ml @ 1,000 mls/hr Q1H PRN IV hypotension; Start 09/12/18 at 08:00; Stop 09/12/18 at 13:59; Status DC Sodium Chloride 1,000 ml @ 400 mls/hr Q2H30M PRN IV PATENCY; Start 09/12/18 at 08:00; Stop 09/12/18 at 19:59 Info (PHARMACY MONITORING -- do not chart) 1 each PRN DAILY PRN MC SEE COMMENTS; Start 09/12/18 at 12:45; Status UNV Info (PHARMACY MONITORING -- do not chart) 1 each PRN DAILY PRN MC SEE COMMENTS; Start 09/12/18 at 12:45; Status UNV Active Scripts Active Mycamine (Micafungin Sodium) 100 Mg Vial 100 Mg IV DAILY 10 Days Daptomycin 350 Mg Vial 640 Mg IV DAILY 14 Days [Cefepime Hcl] 1 GM Vial 1 Gm IVP Q24H 14 Days Potassium Chloride 20 Meq Tablet.er 20 Meq PO DAILY Orphenadrine Citrate 100 Mg Tablet.er 100 Mg PO Q12HR Anaprox Ds (Naproxen Sodium) 550 Mg Tablet 550 Mg PO Q12HR Reported Hydrochlorothiazide Tablet (Hydrochlorothiazide) 12.5 Mg Tablet 12.5 Mg PO DAILY Shilpi Allergy (Fexofenadine Hcl) 180 Mg Tablet 1 Tab PO DAILY Vitals/I & O Vital Sign - Last 24 Hours 09/11/18 09/11/18 09/11/18 09/11/18 19:16 20:00 20:19 23:25 Temp 98.8 98.1 98.8 98.1 Pulse 60 81 Resp 18 20 B/P (MAP) 131/51 (77) 161/87 (111) Pulse Ox 100 97 96 O2 Delivery Nasal Cannula Nasal Cannula Nasal Cannula Nasal Cannula O2 Flow Rate 2.0 3.0 2.0 3.0 09/12/18 09/12/18 09/12/18 09/12/18 02:57 03:27 03:51 06:45 Temp 98.6 98.6 Pulse 88 Resp 20 B/P (MAP) 146/84 (104) Pulse Ox 97 O2 Delivery Nasal Cannula Nasal Cannula Nasal Cannula Nasal Cannula O2 Flow Rate 2.0 2.0 3.0 2.0 09/12/18 09/12/18 09/12/18 09/12/18 07:00 07:32 14:48 16:53 Temp 98.2 98.2 98.2 98.2 Pulse 78 82 Resp 17 16 B/P (MAP) 154/91 (112) 160/77 (104) Pulse Ox 98 97 93 91 O2 Delivery Nasal Cannula Nasal Cannula Nasal Cannula Nasal Cannula O2 Flow Rate 3.0 2.0 3.0 1.0 Intake and Output 09/11/18 09/11/18 09/12/18 14:59 22:59 06:59 Intake Total 300 ml 300 ml 100 ml Output Total 250 ml Balance 300 ml 300 ml -150 ml JAVON COSME MD Sep 12, 2018 17:08
--- NOTE | 2018-09-12 18:11 | NUR ---
Patient removed NG tube around approximately 0830, tube not replaced in anticipation of speech evaluation. Patient also removed trialysis catheter at approximately 1530. Nephrology and primary doctors notified. Dr Cespedes stated that the dialysis catheter can be replaced or Monday since patient already received dialysis. Dr Gonzales stated the NG tube can be replaced tomorrow. SW and family updated.
[2018-09-12 19:40] VITALS: BP 157/95
[2018-09-12 23:34] VITALS: BP 151/78
[2018-09-13 03:31] VITALS: BP 163/87
[2018-09-13 07:00] VITALS: BP 159/93
--- NOTE | 2018-09-13 08:31 | NUR ---
CARISSA following pt. CARISSA spoke with Dr. Cespedes regarding HD Cath placement. Dr. Cespedes would like to discuss with ID to see if they will need to put in temp cath or permanent cath before [facility]. CARISSA updated Michelle at [facility]
--- NOTE | 2018-09-13 08:37 | RAD ---
EXAM: Abdomen one view. HISTORY: Nasogastric tube placement. COMPARISON: None. FINDINGS: A frontal view of the abdomen is obtained. The nasogastric tube has its tip within the distal stomach. There are no distended small bowel loops. There is gas distally. There is mild atelectasis in the lung bases. IMPRESSION: 1. Nasogastric tube tip in the distal stomach. Electronically signed by: Jeanine Salinas MD (09/13/2018 8:34 AM) [facility]
[2018-09-13] MEDS: IPRATRPIUM/ALBUTEROL 0.5/2.5MG 3 ML NEBU. NEB SCH ×4 (08:38→19:51)
--- NOTE | 2018-09-13 09:10 | PDOC ---
PULMONARY PROGRESS NOTES Subjective PT NOT MORE SOA NG TUBE IN PLACE Vitals Vital Signs Date Time Temp Pulse Resp B/P (MAP) Pulse Ox O2 Delivery O2 Flow Rate FiO2 09/13/18 08:41 94 Nasal Cannula 2.0 09/13/18 07:00 98.3 77 20 159/93 (115) 98.3 General: Alert, No acute distress Lungs: Clear Cardiovascular: S1, S2 Abdomen: Soft, Non-tender, Other (no mass) Extremities: Other (1+edema) Skin: Warm Labs Laboratory Tests Test 09/12/18 03:20 White Blood Count 9.2 x10^3/uL (4.0-11.0) Red Blood Count 2.47 x10^6/uL (4.30-5.70) Hemoglobin 7.5 g/dL (13.0-17.5) Hematocrit 21.5 % (39.0-53.0) Mean Corpuscular Volume 87 fL (79-100) Mean Corpuscular Hemoglobin 30 pg (25-35) Mean Corpuscular Hemoglobin Concent 35 g/dL (31-37) Red Cell Distribution Width 19.3 % (11.5-14.5) Platelet Count 347 x10^3/uL (140-400) Neutrophils (%) (Auto) 48 % (31-73) Lymphocytes (%) (Auto) 33 % (24-48) Monocytes (%) (Auto) 14 % (0-9) Eosinophils (%) (Auto) 3 % (0-3) Basophils (%) (Auto) 2 % (0-3) Neutrophils # (Auto) 4.4 x10^3uL (1.8-7.7) Lymphocytes # (Auto) 3.0 x10^3/uL (1.0-4.8) Monocytes # (Auto) 1.3 x10^3/uL (0.0-1.1) Eosinophils # (Auto) 0.3 x10^3/uL (0.0-0.7) Basophils # (Auto) 0.2 x10^3/uL (0.0-0.2) Sodium Level 137 mmol/L (136-145) Potassium Level 4.1 mmol/L (3.5-5.1) Chloride Level 96 mmol/L (98-107) Carbon Dioxide Level 23 mmol/L (21-32) Anion Gap 18 (6-14) Blood Urea Nitrogen 87 mg/dL (8-26) Creatinine 9.6 mg/dL (0.7-1.3) Estimated GFR (Cockcroft-Gault) 5.7 BUN/Creatinine Ratio 9 (6-20) Glucose Level 110 mg/dL (70-99) Calcium Level 8.0 mg/dL (8.5-10.1) Total Bilirubin 0.7 mg/dL (0.2-1.0) Aspartate Amino Transf (AST/SGOT) 41 U/L (15-37) Alanine Aminotransferase (ALT/SGPT) 43 U/L (16-63) Alkaline Phosphatase 90 U/L (46-116) Total Protein 6.7 g/dL (6.4-8.2) Albumin 2.0 g/dL (3.4-5.0) Albumin/Globulin Ratio 0.4 (1.0-1.7) Medications Active Scripts Medications Dose Route/Sig Max Daily Dose Days Date Category Prednisone 20 Mg Tablet 1 Tab PO DAILY 08/26/18 Reported Hydrochlorothiazide Tablet (Hydrochlorothiazide) 12.5 Mg Tablet 12.5 Mg PO DAILY 08/26/18 Reported Shilpi Allergy (Fexofenadine Hcl) 180 Mg Tablet 1 Tab PO DAILY 08/26/18 Reported Potassium Chloride 20 Meq Tablet.er 20 Meq PO DAILY 08/24/18 Rx Orphenadrine Citrate 100 Mg Tablet.er 100 Mg PO Q12HR 02/03/16 Rx Anaprox Ds (Naproxen Sodium) 550 Mg Tablet 550 Mg PO Q12HR 02/03/16 Rx Impression . IMPRESSION: 1. 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 EXTUBATED 09/08 2. 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 Fever. RESOLVED 4. Lactic acidosis. 5. Acute renal failure. 6. Acute hepatic injury. 7. Thrombocytopenia, improving. 8. Hemochromatosis. 9. ACUTE TOXIC MET ENCEPH POA 10 DYSPHAGIA 11.ENCEPHALITIS 12. FUNGEMIA 13. ANEMIA Plan . TUBE FEEDING REPLACE HD CATH PER NEPRO ANTI BX PER ANISH BOYER MD Sep 13, 2018 09:10
[2018-09-13] MEDS: MICAFUNGIN 100 MG in IV DEXTROSE 5% 100ML 100 ML IV SCH (09:38)
[2018-09-13 10:07] LABS: BASO # 0.1 x10^3/uL (0.0-0.2); BASO % 2 % (0-3); EOS # 0.3 x10^3/uL (0.0-0.7); EOS % 4 % (0-3); HEMATOCRIT 24.3 % (39.0-53.0); HEMOGLOBIN 8.3 g/dL (13.0-17.5); LYMPH # 2.5 x10^3/uL (1.0-4.8); LYMPH % 33 % (24-48); MEAN CORPUSCULAR HEMOGLOBIN 30 pg (25-35); MEAN CORPUSCULAR HGB CONC 34 g/dL (31-37); MEAN CORPUSCULAR VOLUME 89 fL (79-100); MONO % 13 % (0-9); NEUT # 3.8 x10^3uL (1.8-7.7); NEUT % 49 % (31-73); PLATELET COUNT 356 x10^3/uL (140-400); RED BLOOD COUNT 2.74 x10^6/uL (4.30-5.70); RED CELL DISTRIBUTION WIDTH 20.4 % (11.5-14.5); WHITE BLOOD COUNT 7.8 x10^3/uL (4.0-11.0)
--- NOTE | 2018-09-13 10:08 | PDOC ---
Infectious Disease Note Subjective Subjective States he is doing well. Brian any F/C/S/DIAL/SOA/N Denies pulling HD cath or NGT Vital Sign Vital Signs Vital Signs Date Time Temp Pulse Resp B/P (MAP) Pulse Ox O2 Delivery O2 Flow Rate FiO2 09/13/18 08:41 94 Nasal Cannula 2.0 09/13/18 07:00 98.3 77 20 159/93 (115) 98.3 Physical Exam PHYSICAL EXAM GENERAL: Awake, calm, NAD - looks well -coop HEENT: Pupils equal, oral cavity dry - NGT NECK: Supple. LUNGS: Clear anteriorly HEART: S1 and S2. regular ABDOMEN: + distention but less, : Waters in place EXTREMITIES: No gross edema, no cyanosis. NEUROLOGIC: Awake, and alert looks really well PIV. clean Labs Micro Microbiology 09/08/18 Blood Culture - Preliminary, Resulted NO GROWTH AFTER 2 DAYS 08/29/18 CSF Gram Stain - Final, Complete 08/27/18 Stool Culture - Final, Complete 08/27/18 Stool Culture Result 1 (LOTUS) - Final, Complete 08/27/18 Campylobacter Antigen Assay - Final, Complete 08/27/18 Campylobactor Result 1 - Final, Complete 08/27/18 Shiga Toxin Test - Final, Complete 09/05/18 - Final, Complete 09/05/18 - Final, Complete 09/05/18 - Final, Complete 09/05/18 Gram Stain Evaluation - Final, Complete 09/05/18 Sputum Culture - Final, Complete 09/05/18 Sputum Result 1 - Final, Complete 09/04/18 Urine Culture - Final, Complete 09/04/18 Urine Culture Result 1 (LOTUS) - Final, Complete Objective Assessment Fever - times one 09/11 - much better Fungemia from 09/04 04/11 bottles. ID/LOTUS pending; repeat BC 09/08 neg so far -Lines have been removed Diarrhea, C. diff PCR neg Leukocytosis - ? 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 MRI neg - Pulled out NGT and HD cath 09/12 -CSF pleocytosis, cultures and serologies negative - HIV neg -[place] IgG +, IgM neg, old exposure -HSV PCR neg -Arboviral panel not available -Enteroviral pcr not available RADHA (Recent Bactrim/ibuprofen), on HD Anemia - s/p PRBCs 09/10 - Parvo - neg Hemochromatosis, followed by [facility] Plan Plan of Care Dosed Dapto and Cefepime 09/11 with fever - redose Dapto today 09/13 S/p HD cath 09/10 - pulled out 09/12 - NGT replaced. HD cath to be replaced 09/14 Cont micafungin await yeast ID from 09/04 - d/w [facility] today no ID yet Repeat BC 09/08 and 09/11 neg so far Monitor labs/temp Supportive care D/w nursing do not transfer to [facility] D/w Dr. Cespedes. D/w LICO GRACE MD Sep 13, 2018 10:08
[2018-09-13] MEDS ORDERED: DAPTOmycin (GENERIC) IVPB 640 MG in IV NORMAL SALINE 50ML 50 ML IV ONE (10:15)
[2018-09-13 10:20] LABS: CREATININE 7.2 mg/dL (0.7-1.3); POTASSIUM 4.9 mmol/L (3.5-5.1)
[2018-09-13] MEDS: CEFEPIME HCL IV Push 1 GM VIAL. IVP SCH (10:57)
--- NOTE | 2018-09-13 10:58 | PDOC ---
Subjective: Subjective: Denies pain. Objective: Objective: Reviewed w/ RN - NG back in place, plans to restart feeds. Pulled out dialysis cath yesterday. 2 stools charted. Vital Signs: Vital Signs Date Time Temp Pulse Resp B/P (MAP) Pulse Ox O2 Delivery O2 Flow Rate FiO2 09/13/18 08:41 94 Nasal Cannula 2.0 09/13/18 07:00 98.3 77 20 159/93 (115) 98.3 Labs: Laboratory Tests Test 09/13/18 10:00 White Blood Count 7.8 x10^3/uL Red Blood Count 2.74 x10^6/uL Hemoglobin 8.3 g/dL Hematocrit 24.3 % Mean Corpuscular Volume 89 fL Mean Corpuscular Hemoglobin 30 pg Mean Corpuscular Hemoglobin Concent 34 g/dL Red Cell Distribution Width 20.4 % Platelet Count 356 x10^3/uL Neutrophils (%) (Auto) 49 % Lymphocytes (%) (Auto) 33 % Monocytes (%) (Auto) 13 % Eosinophils (%) (Auto) 4 % Basophils (%) (Auto) 2 % Neutrophils # (Auto) 3.8 x10^3uL Lymphocytes # (Auto) 2.5 x10^3/uL Monocytes # (Auto) 1.0 x10^3/uL Eosinophils # (Auto) 0.3 x10^3/uL Basophils # (Auto) 0.1 x10^3/uL Sodium Level 138 mmol/L Potassium Level 4.9 mmol/L Chloride Level 97 mmol/L Carbon Dioxide Level 27 mmol/L Anion Gap 14 Blood Urea Nitrogen 52 mg/dL Creatinine 7.2 mg/dL Estimated GFR (Cockcroft-Gault) 8.0 Glucose Level 92 mg/dL Calcium Level 9.0 mg/dL Ammonia < 10 mcmol/L BLOOD CULTURE Final NO GROWTH AFTER 5 DAYS Imaging: [facility] 09/13 IMPRESSION: 1. Nasogastric tube tip in the distal stomach. PE: GEN: NAD LUNGS: NC HEART: RRR ABD: stable distention, non-tender NEURO/PSYCH: waves hello A/P: MOSF, fungemia, dysphagia -- Continue same per GI - note plans to restart tube feeds. ELVIA NOE Sep 13, 2018 10:58
[2018-09-13] MEDS: amLODIPine BESYLATE 5 MG TABLET PO SCH (11:07)
[2018-09-13 11:10] VITALS: BP 151/86
--- NOTE | 2018-09-13 11:38 | PDOC ---
SUBJECTIVE ROS States feeling good, doesn't remember pulling out the dialysis catheter OBJECTIVE Vital Signs Vital Signs Date Time Temp Pulse Resp B/P (MAP) Pulse Ox O2 Delivery O2 Flow Rate FiO2 09/13/18 11:10 98.3 80 18 151/86 (107) 97 Nasal Cannula 3.0 98.3 I & 0 Intake and Output 09/13/18 07:00 Intake Total 100 ml Output Total 30 ml Balance 70 ml Intake Oral 0 ml IV Total 100 ml Output Urine Total 30 ml # Bowel Movements 2 PHYSICAL EXAM Physical Exam GENERAL: Awake, On o2, HEENT: On O2 by NC NECK: Supple. LUNGS: Clear anteriorly HEART: S1 and S2. 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 negative for ehrlichia -RMSF neg, Encephalopathy waxing and waning etiology unclear MRI neg Anemia - Hg stable On JANINA s/p PRBCs 09/10 - Parvo - neg Hemochromatosis, followed by [facility] COMMENT/RELEVANT DATA Meds Current Medications Medications (Trade) Dose Ordered Sig/Noemi Start Time Stop Time Status Last Admin Dose Admin Acetaminophen (Tylenol Supp) 650 mg PRN Q6HRS PRN 08/27/18 21:15 09/02/18 01:18 650 MG Acetaminophen (Tylenol) 650 mg PRN Q6HRS PRN 08/27/18 21:15 Acyclovir Sodium 340 mg/Dextrose 106.8 ml @ 106.8 mls/ hr Q12HR 08/30/18 09:00 09/01/18 13:37 DC 09/01/18 11:05 106.8 MLS/HR Albumin Human 200 ml @ 200 mls/hr 1X PRN PRN 09/04/18 08:30 09/04/18 14:29 DC Albuterol/ Ipratropium (Duoneb) 3 ml 1X ONCE 09/01/18 01:00 09/01/18 01:01 DC 09/01/18 01:10 3 ML Amlodipine Besylate (Norvasc) 2.5 mg DAILY 09/11/18 11:00 09/13/18 11:07 2.5 MG Atropine Sulfate (ATROPINE 0.5mg SYRINGE) 0.5 mg PRN Q5MIN PRN 09/06/18 11:00 Atropine Sulfate (ATROPINE 1mg SYRINGE) 1 mg STK-MED ONCE 08/31/18 22:58 08/31/18 22:59 DC Aztreonam (Azactam) 2 gm 1X ONCE 08/25/18 21:15 08/25/18 21:16 DC 08/25/18 21:15 2 GM Benzocaine (Hurricaine One) 1 spray 1X STAT 08/28/18 10:16 08/28/18 10:19 DC 08/28/18 10:16 1 SPRAY Cefepime HCl (Maxipime) 1 gm Q24H 09/11/18 11:00 09/13/18 10:57 1 GM Ceftriaxone Sodium (Rocephin) 1 gm 1X ONCE 08/25/18 20:30 08/25/18 20:31 DC 08/25/18 20:36 1 GM Chlorhexidine Gluconate (Peridex) 15 ml BID 09/01/18 09:00 09/08/18 08:04 DC 09/07/18 21:21 15 ML Daptomycin 610 mg/ Sodium Chloride 50 ml @ 100 mls/hr Q48H 08/30/18 16:00 08/30/18 16:00 DC Daptomycin 640 mg/ Sodium Chloride 50 ml @ 100 mls/hr ONCE ONCE 09/13/18 10:15 09/13/18 10:45 DC 09/13/18 11:03 100 MLS/HR Darbepoetin Phil (Aranesp) 100 mcg WEEKLYHS 09/03/18 21:00 09/10/18 21:35 100 MCG Dexmedetomidine HCl 200 mcg/ Sodium Chloride 50 ml @ 0 mls/hr CONT PRN 09/06/18 11:00 09/08/18 08:03 DC Diphenhydramine HCl (Benadryl) 25 mg 1X PRN PRN 09/10/18 13:30 09/11/18 13:29 DC Doxycycline Hyclate 100 mg/ Dextrose 100 ml @ 50 mls/hr Q12HR 08/26/18 09:00 09/04/18 08:11 DC 09/03/18 22:11 50 MLS/HR Epinephrine HCl (EPINEPHrine SYRINGE) 3 mg STK-MED ONCE 08/31/18 08:06 09/04/18 08:07 DC Famotidine (Pepcid Vial) 20 mg Q48H 09/03/18 21:00 09/11/18 19:56 20 MG Famotidine (Pepcid) 20 mg Q48H 08/29/18 09:00 08/29/18 11:29 DC Fentanyl Citrate (Fentanyl 2ml Vial) 25 mcg PRN Q2HR PRN 09/06/18 11:00 09/12/18 02:57 25 MCG Haloperidol (Haldol) 2 mg PRN QID PRN 08/31/18 08:00 08/31/18 12:43 DC Haloperidol Lactate (HALDOL 2mg ORAL CONC) 2 mg PRN QID PRN 08/31/18 12:43 Haloperidol Lactate (Haldol Inj) 5 mg PRN Q6HRS PRN 08/28/18 12:00 09/06/18 05:53 5 MG Heparin Sodium (Porcine) (Heparin Sodium) 10,000 unit STK-MED ONCE 09/10/18 09:37 09/11/18 17:41 DC Ibuprofen (Motrin) 600 mg 1X ONCE 08/25/18 19:45 08/25/18 19:49 DC 08/25/18 20:38 600 MG Info (PHARMACY MONITORING -- do not chart) 1 each PRN DAILY PRN 09/12/18 12:45 UNV Info (Tpn Per Pharmacy) 1 each PRN DAILY PRN 08/30/18 12:45 09/04/18 12:50 DC 09/03/18 10:53 1 EACH Lactobacillus Rhamnosus (Culturelle) 1 cap BID 08/26/18 21:00 09/08/18 10:55 DC 09/08/18 09:34 1 CAP Levofloxacin/ Dextrose 150 ml @ 100 mls/hr QODAY 09/04/18 09:00 09/07/18 07:52 DC 09/06/18 10:28 100 MLS/HR Lidocaine HCl (Glydo (Lidocaine) Jelly) 1 meng 1X STAT 08/28/18 10:16 08/28/18 10:19 DC 08/28/18 10:16 1 MENG Lidocaine/Sodium Bicarbonate (Buffered Lidocaine 1%) 3 ml STK-MED ONCE 09/10/18 09:37 09/11/18 17:41 DC Linezolid/Dextrose 300 ml @ 300 mls/hr Q12HR 09/05/18 09:30 09/10/18 07:34 DC 09/09/18 21:21 300 MLS/HR Magnesium Sulfate 50 ml @ 25 mls/hr 1X ONCE 08/25/18 21:15 08/25/18 23:14 DC 08/25/18 23:51 25 MLS/HR Meropenem 500 mg/ Sodium Chloride 50 ml @ 100 mls/hr DAILY 08/26/18 09:00 08/30/18 08:17 DC 08/29/18 10:13 100 MLS/HR Micafungin Sodium 100 mg/Dextrose 100 ml @ 100 mls/hr Q24H 09/07/18 08:30 09/13/18 09:38 100 MLS/HR Midazolam HCl 100 ml @ 0 mls/hr CONT PRN 09/01/18 00:00 09/08/18 11:30 DC Norepinephrine Bitartrate 250 ml @ 0 mls/hr CONT PRN 08/26/18 09:15 08/30/18 17:20 DC 08/27/18 10:21 1.88 MLS/HR Ondansetron HCl (Zofran) 4 mg PRN Q6HRS PRN 08/31/18 08:00 Piperacillin Sod/ Tazobactam Sod 2.25 gm/Sodium Chloride 50 ml @ 100 mls/hr Q6HRS 09/01/18 14:00 09/11/18 09:29 DC 09/11/18 05:19 100 MLS/HR Piperacillin Sod/ Tazobactam Sod 4.5 gm/Sodium Chloride 100 ml @ 200 mls/hr 1X ONCE 08/25/18 21:15 08/25/18 21:44 DC Propofol 100 ml @ 0 mls/hr CONT PRN 09/01/18 00:00 09/06/18 10:59 DC 09/06/18 08:14 6.135 MLS/HR Sodium Bicarbonate (Sodium Bicarb Adult 8.4% Syr) 100 meq STK-MED ONCE 08/31/18 08:06 09/04/18 08:07 DC Sodium Chloride 1,000 ml @ 400 mls/hr Q2H30M PRN 09/12/18 08:00 09/12/18 19:59 DC Sodium Chloride (Normal Saline Flush) 10 ml 1X PRN PRN 09/05/18 09:00 09/06/18 08:59 DC Sodium Chloride 90 meq/Potassium Chloride 50 meq/ Potassium Phosphate 10 mmol/ Calcium Gluconate 10 meq/ Multivitamins 10 ml/Chromium/ Copper/Manganese/ Seleni/Zn 1 ml/ Total Parenteral Nutrition/Amino Acids/Dextrose 1,512 ml @ 63 mls/hr TPN CONT 09/01/18 22:00 09/02/18 21:59 DC 09/01/18 22:11 63 MLS/HR Sodium Chloride 90 meq/Potassium Chloride 50 meq/ Potassium Phosphate 3 mmol/ Magnesium Sulfate 10 meq/Calcium Gluconate 10 meq/ Multivitamins 10 ml/Chromium/ Copper/Manganese/ Seleni/Zn 1 ml/ Total Parenteral Nutrition/Amino Acids/Dextrose/ Fat Emulsion Intravenous 1,512 ml @ 63 mls/hr TPN CONT 08/30/18 22:00 08/31/18 21:59 DC 08/30/18 21:40 63 MLS/HR Sodium Chloride 90 meq/Potassium Chloride 50 meq/ Potassium Phosphate 5 mmol/ Magnesium Sulfate 3 meq/Calcium Gluconate 10 meq/ Multivitamins 10 ml/Chromium/ Copper/Manganese/ Seleni/Zn 1 ml/ Total Parenteral Nutrition/Amino Acids/Dextrose 1,512 ml @ 63 mls/hr TPN CONT 08/31/18 22:00 09/01/18 21:59 DC 08/31/18 20:59 63 MLS/HR Sodium Chloride 110 meq/Potassium Chloride 50 meq/ Potassium Phosphate 10 mmol/ Calcium Gluconate 10 meq/ Multivitamins 10 ml/Chromium/ Copper/Manganese/ Seleni/Zn 1 ml/ Magnesium Sulfate 3 meq/Total Parenteral Nutrition/Amino Acids/Dextrose 1,512 ml @ 63 mls/hr TPN CONT 09/02/18 22:00 09/03/18 21:59 DC 09/02/18 22:13 63 MLS/HR Sodium Chloride 130 meq/Potassium Acetate 20 meq/ Calcium Gluconate 10 meq/ Multivitamins 10 ml/Chromium/ Copper/Manganese/ Seleni/Zn 1 ml/ Magnesium Sulfate 3 meq/Total Parenteral Nutrition/Amino Acids/Dextrose 1,512 ml @ 63 mls/hr TPN CONT 09/03/18 22:00 09/04/18 21:59 DC 09/03/18 22:12 63 MLS/HR Succinylcholine Chloride (Anectine) 200 mg 1X ONCE 09/01/18 01:15 09/01/18 01:16 DC 08/31/18 23:04 200 MG Vancomycin HCl 2 gm/Sodium Chloride 500 ml @ 250 mls/hr 1X ONCE 08/25/18 21:30 08/25/18 23:29 DC 08/25/18 23:10 250 MLS/HR Lab Laboratory Tests Test 09/13/18 10:00 White Blood Count 7.8 x10^3/uL (4.0-11.0) Red Blood Count 2.74 x10^6/uL (4.30-5.70) Hemoglobin 8.3 g/dL (13.0-17.5) Hematocrit 24.3 % (39.0-53.0) Mean Corpuscular Volume 89 fL (79-100) Mean Corpuscular Hemoglobin 30 pg (25-35) Mean Corpuscular Hemoglobin Concent 34 g/dL (31-37) Red Cell Distribution Width 20.4 % (11.5-14.5) Platelet Count 356 x10^3/uL (140-400) Neutrophils (%) (Auto) 49 % (31-73) Lymphocytes (%) (Auto) 33 % (24-48) Monocytes (%) (Auto) 13 % (0-9) Eosinophils (%) (Auto) 4 % (0-3) Basophils (%) (Auto) 2 % (0-3) Neutrophils # (Auto) 3.8 x10^3uL (1.8-7.7) Lymphocytes # (Auto) 2.5 x10^3/uL (1.0-4.8) Monocytes # (Auto) 1.0 x10^3/uL (0.0-1.1) Eosinophils # (Auto) 0.3 x10^3/uL (0.0-0.7) Basophils # (Auto) 0.1 x10^3/uL (0.0-0.2) Sodium Level 138 mmol/L (136-145) Potassium Level 4.9 mmol/L (3.5-5.1) Chloride Level 97 mmol/L (98-107) Carbon Dioxide Level 27 mmol/L (21-32) Anion Gap 14 (6-14) Blood Urea Nitrogen 52 mg/dL (8-26) Creatinine 7.2 mg/dL (0.7-1.3) Estimated GFR (Cockcroft-Gault) 8.0 Glucose Level 92 mg/dL (70-99) Calcium Level 9.0 mg/dL (8.5-10.1) Ammonia < 10 mcmol/L (11-34) Results All relevant outside records, renal labs, imaging studies, telemetry/EKG's were reviewed. OG CHAVES MD Sep 13, 2018 11:38
--- NOTE | 2018-09-13 12:04 | NUR ---
Dr. Gonzales rounding this AM shortly after [facility] results posted. Discussed results, ok to resume tube feeds. Discussed possible transfer to [facility], told him I was told it would be up to nephro/ID, regarding line/need of line and if it were able to be placed today. Nephro rounded later, per her discussion with ID, would like to keep one more day, as ID is not sure why patient would pull line out, and if it was confusion r/t to infection, he would like to monitor him here one more day. To place new temporary dialysis catheter tomorrow 09/14.
--- NOTE | 2018-09-13 12:13 | NUR ---
Discussed rose being placed in ICU during intubation, with Dr. Gonzales. He would like Rose to be continued and maintained for now.
--- NOTE | 2018-09-13 13:14 | NUR ---
Tube feeds resumed this morning at 1030. Ok per Dr. Gonzales, and etcher machine.
--- NOTE | 2018-09-13 14:11 | NUR ---
SW following pt. Spoke with RN and ID wants to keep pt today, do cath placement tomorrow. Discussed with Michelle at [facility]. Addendum: 09/13/18 at 1524 by SAM FERRER Discussed with Pt and in room. They are agreeable with dc plans.
--- NOTE | 2018-09-13 14:58 | PDOC ---
PROGRESS NOTES Subjective Subjective HPI - f/u of Anemia ROS - no fever Objective Objective Vital Signs Date Time Temp Pulse Resp B/P (MAP) Pulse Ox O2 Delivery O2 Flow Rate FiO2 09/13/18 11:37 Nasal Cannula 2.0 09/13/18 11:10 98.3 80 18 151/86 (107) 97 98.3 Intake and Output 09/13/18 07:00 Intake Total 100 ml Output Total 30 ml Balance 70 ml Intake Oral 0 ml IV Total 100 ml Output Urine Total 30 ml # Bowel Movements 2 Physical Exam Heart: Normal S1, Normal S2 General: Alert, No acute distress Lungs: Clear to auscultation Assessment Assessment Problems Medical Problems: (1) Acute renal failure Status: Acute Assessment/Plan 52 yo male presents with week long history of fever and found to have thrombocytopenia, ARF, elevated LFTs 1. Septic shock - Fever - Tick borne illness suspected. Per ID. 2. Dehydration 3. Acute renal failure. Cr 7.1, management per nephro. 4. Elevated LFTs 5. Thrombocytopenia due to sepsis, no clinical evidence of TTP, no evidence of schistocytes, normal retic and haptoglobin and Hb. He should be transfused plts if his plt count <10 or he develops active bleeding. Plt better at 30 on 08/27/18. Plt better at 47 on 08/28/18, Plt better at 58 on 08/29/18 Plt better at 67 on 08/30/18. Plt better at 73 on 08/31/18 Plt better at 139 on 09/04/18, Plt normal at 175, Monitor cbc. Plt normal at 356 on 09/13/18 No bleeding 6. Anemia, Hb 8.3 on 09/13/18. 7.Hemochromatosis, he follows with Dr. Iverson at [facility] and has been undergoing phlebotomy. His last phlebotomy was in late June. No further recommendations, please call with any questions. Comment Review of Relevant I have reviewed the following items gera (where applicable) has been applied. Labs Laboratory Tests Test 09/12/18 03:20 09/13/18 10:00 White Blood Count 9.2 x10^3/uL (4.0-11.0) 7.8 x10^3/uL (4.0-11.0) Red Blood Count 2.47 x10^6/uL (4.30-5.70) 2.74 x10^6/uL (4.30-5.70) Hemoglobin 7.5 g/dL (13.0-17.5) 8.3 g/dL (13.0-17.5) Hematocrit 21.5 % (39.0-53.0) 24.3 % (39.0-53.0) Mean Corpuscular Volume 87 fL (79-100) 89 fL (79-100) Mean Corpuscular Hemoglobin 30 pg (25-35) 30 pg (25-35) Mean Corpuscular Hemoglobin Concent 35 g/dL (31-37) 34 g/dL (31-37) Red Cell Distribution Width 19.3 % (11.5-14.5) 20.4 % (11.5-14.5) Platelet Count 347 x10^3/uL (140-400) 356 x10^3/uL (140-400) Neutrophils (%) (Auto) 48 % (31-73) 49 % (31-73) Lymphocytes (%) (Auto) 33 % (24-48) 33 % (24-48) Monocytes (%) (Auto) 14 % (0-9) 13 % (0-9) Eosinophils (%) (Auto) 3 % (0-3) 4 % (0-3) Basophils (%) (Auto) 2 % (0-3) 2 % (0-3) Neutrophils # (Auto) 4.4 x10^3uL (1.8-7.7) 3.8 x10^3uL (1.8-7.7) Lymphocytes # (Auto) 3.0 x10^3/uL (1.0-4.8) 2.5 x10^3/uL (1.0-4.8) Monocytes # (Auto) 1.3 x10^3/uL (0.0-1.1) 1.0 x10^3/uL (0.0-1.1) Eosinophils # (Auto) 0.3 x10^3/uL (0.0-0.7) 0.3 x10^3/uL (0.0-0.7) Basophils # (Auto) 0.2 x10^3/uL (0.0-0.2) 0.1 x10^3/uL (0.0-0.2) Sodium Level 137 mmol/L (136-145) 138 mmol/L (136-145) Potassium Level 4.1 mmol/L (3.5-5.1) 4.9 mmol/L (3.5-5.1) Chloride Level 96 mmol/L (98-107) 97 mmol/L (98-107) Carbon Dioxide Level 23 mmol/L (21-32) 27 mmol/L (21-32) Anion Gap 18 (6-14) 14 (6-14) Blood Urea Nitrogen 87 mg/dL (8-26) 52 mg/dL (8-26) Creatinine 9.6 mg/dL (0.7-1.3) 7.2 mg/dL (0.7-1.3) Estimated GFR (Cockcroft-Gault) 5.7 8.0 BUN/Creatinine Ratio 9 (6-20) Glucose Level 110 mg/dL (70-99) 92 mg/dL (70-99) Calcium Level 8.0 mg/dL (8.5-10.1) 9.0 mg/dL (8.5-10.1) Total Bilirubin 0.7 mg/dL (0.2-1.0) Aspartate Amino Transf (AST/SGOT) 41 U/L (15-37) Alanine Aminotransferase (ALT/SGPT) 43 U/L (16-63) Alkaline Phosphatase 90 U/L (46-116) Total Protein 6.7 g/dL (6.4-8.2) Albumin 2.0 g/dL (3.4-5.0) Albumin/Globulin Ratio 0.4 (1.0-1.7) Ammonia < 10 mcmol/L (11-34) Laboratory Tests Test 09/13/18 10:00 White Blood Count 7.8 x10^3/uL (4.0-11.0) Red Blood Count 2.74 x10^6/uL (4.30-5.70) Hemoglobin 8.3 g/dL (13.0-17.5) Hematocrit 24.3 % (39.0-53.0) Mean Corpuscular Volume 89 fL (79-100) Mean Corpuscular Hemoglobin 30 pg (25-35) Mean Corpuscular Hemoglobin Concent 34 g/dL (31-37) Red Cell Distribution Width 20.4 % (11.5-14.5) Platelet Count 356 x10^3/uL (140-400) Neutrophils (%) (Auto) 49 % (31-73) Lymphocytes (%) (Auto) 33 % (24-48) Monocytes (%) (Auto) 13 % (0-9) Eosinophils (%) (Auto) 4 % (0-3) Basophils (%) (Auto) 2 % (0-3) Neutrophils # (Auto) 3.8 x10^3uL (1.8-7.7) Lymphocytes # (Auto) 2.5 x10^3/uL (1.0-4.8) Monocytes # (Auto) 1.0 x10^3/uL (0.0-1.1) Eosinophils # (Auto) 0.3 x10^3/uL (0.0-0.7) Basophils # (Auto) 0.1 x10^3/uL (0.0-0.2) Sodium Level 138 mmol/L (136-145) Potassium Level 4.9 mmol/L (3.5-5.1) Chloride Level 97 mmol/L (98-107) Carbon Dioxide Level 27 mmol/L (21-32) Anion Gap 14 (6-14) Blood Urea Nitrogen 52 mg/dL (8-26) Creatinine 7.2 mg/dL (0.7-1.3) Estimated GFR (Cockcroft-Gault) 8.0 Glucose Level 92 mg/dL (70-99) Calcium Level 9.0 mg/dL (8.5-10.1) Ammonia < 10 mcmol/L (11-34) Microbiology 09/11/18 Blood Culture - Preliminary, Resulted NO GROWTH AFTER 2 DAYS 08/29/18 CSF Gram Stain - Final, Complete 08/27/18 Stool Culture - Final, Complete 08/27/18 Stool Culture Result 1 (LOTUS) - Final, Complete 08/27/18 Campylobacter Antigen Assay - Final, Complete 08/27/18 Campylobactor Result 1 - Final, Complete 08/27/18 Shiga Toxin Test - Final, Complete 09/05/18 - Final, Complete 09/05/18 - Final, Complete 09/05/18 - Final, Complete 09/05/18 Gram Stain Evaluation - Final, Complete 09/05/18 Sputum Culture - Final, Complete 09/05/18 Sputum Result 1 - Final, Complete 09/04/18 Urine Culture - Final, Complete 09/04/18 Urine Culture Result 1 (LOTUS) - Final, Complete Medications Current Medications Sodium Chloride 1,000 ml @ 1,000 mls/hr 1X ONCE IV Last administered on 08/25/18 20:38; Start 08/25/18 at 19:15; Stop 08/25/18 at 20:14; Status DC Ibuprofen (Motrin) 600 mg 1X ONCE PO Last administered on 08/25/18at 20:38; Start 08/25/18 at 19:45; Stop 08/25/18 at 19:49; Status DC Sodium Chloride 1,000 ml @ 1,000 mls/hr 1X ONCE IV Last administered on 08/25/18at 20:30; Start 08/25/18 at 20:30; Stop 08/25/18 at 21:29; Status DC Ceftriaxone Sodium (Rocephin) 1 gm 1X ONCE IVP Last administered on 08/25/18at 20:36; Start 08/25/18 at 20:30; Stop 08/25/18 at 20:31; Status DC Vancomycin HCl 2 gm/Sodium Chloride 500 ml @ 250 mls/hr 1X ONCE IV Last administered on 08/25/18at 23:10; Start 08/25/18 at 21:30; Stop 08/25/18 at 23:29; Status DC Sodium Chloride 1,000 ml @ 1,000 mls/hr 1X ONCE IV Last administered on 08/25/18at 23:51; Start 08/25/18 at 21:00; Stop 08/25/18 at 21:59; Status DC Piperacillin Sod/ Tazobactam Sod 4.5 gm/Sodium Chloride 100 ml @ 200 mls/hr 1X ONCE IV ; Start 08/25/18 at 21:15; Stop 08/25/18 at 21:44; Status DC Aztreonam (Azactam) 2 gm 1X ONCE IVP Last administered on 08/25/18at 21:15; Start 08/25/18 at 21:15; Stop 08/25/18 at 21:16; Status DC Magnesium Sulfate 50 ml @ 25 mls/hr 1X ONCE IV Last administered on 08/25/18at 23:51; Start 08/25/18 at 21:15; Stop 08/25/18 at 23:14; Status DC Ondansetron HCl (Zofran) 4 mg PRN Q8HRS PRN IV NAUSEA/VOMITING; Start 08/25/18 at 21:15; Stop 08/26/18 at 21:14; Status DC Acetaminophen (Tylenol) 650 mg PRN Q4HRS PRN PO FEVER; Start 08/25/18 at 21:15; Stop 08/26/18 at 21:14; Status DC Sodium Chloride 1,000 ml @ 125 mls/hr 1X ONCE IV Last administered on 08/25/18at 23:09; Start 08/25/18 at 21:15; Stop 08/26/18 at 05:14; Status DC Daptomycin 610 mg/ Sodium Chloride 50 ml @ 100 mls/hr QODAY IV Last administered on 08/27/18at 08:59; Start 08/27/18 at 09:00; Stop 08/28/18 at 15:40; Status DC Meropenem 500 mg/ Sodium Chloride 50 ml @ 100 mls/hr 1X ONCE IV Last administered on 08/25/18at 22:12; Start 08/25/18 at 22:00; Stop 08/25/18 at 22:29; Status DC Doxycycline Hyclate 100 mg/ Dextrose 100 ml @ 50 mls/hr Q12HR IV Last administered on 09/03/18at 22:11; Start 08/26/18 at 09:00; Stop 09/04/18 at 08:11; Status DC Meropenem 500 mg/ Sodium Chloride 50 ml @ 100 mls/hr DAILY IV Last administered on 08/29/18at 10:13; Start 08/26/18 at 09:00; Stop 08/30/18 at 08:17; Status DC Sodium Chloride (Normal Saline Flush) 10 ml QSHIFT PRN IV AFTER MEDS AND BLOOD DRAWS; Start 08/26/18 at 09:15 Norepinephrine Bitartrate 250 ml @ 0 mls/hr CONT PRN IV PER PROTOCOL Last administered on 08/27/18at 10:21; Start 08/26/18 at 09:15; Stop 08/30/18 at 17:20; Status DC Famotidine (Pepcid) 20 mg DAILY PO Last administered on 08/27/18at 08:14; Start 08/26/18 at 12:00; Stop 08/27/18 at 14:36; Status DC Sodium Chloride 1,000 ml @ 1,000 mls/hr Q1H PRN IV hypotension; Start 08/26/18 at 11:51; Stop 08/26/18 at 17:50; Status DC Sodium Chloride (Normal Saline Flush) 10 ml 1X PRN PRN IV AP catheter pack; Start 08/26/18 at 12:00; Stop 08/27/18 at 11:59; Status DC Sodium Chloride (Normal Saline Flush) 10 ml 1X PRN PRN IV DIE FITTER catheter pack; Start 08/26/18 at 12:00; Stop 08/27/18 at 11:59; Status DC Sodium Chloride 1,000 ml @ 400 mls/hr Q2H30M PRN IV PATENCY; Start 08/26/18 at 11:51; Stop 08/26/18 at 23:50; Status DC Info (PHARMACY MONITORING -- do not chart) 1 each PRN DAILY PRN MC SEE COMMENTS; Start 08/26/18 at 12:00; Status UNV Info (PHARMACY MONITORING -- do not chart) 1 each PRN DAILY PRN MC SEE COMMENTS; Start 08/26/18 at 12:00; Stop 09/01/18 at 10:59; Status DC Lidocaine/Sodium Bicarbonate (Buffered Lidocaine 1%) 4 ml 1X ONCE INJ Last administered on 08/26/18at 12:45; Start 08/26/18 at 12:45; Stop 08/26/18 at 12:48; Status DC Heparin Sodium (Porcine) (Heparin Sodium) 2,500 unit 1X ONCE INT CAT Last administered on 08/26/18at 12:45; Start 08/26/18 at 12:45; Stop 08/26/18 at 12:48; Status DC Lidocaine/Sodium Bicarbonate (Buffered Lidocaine 1%) 3 ml STK-MED ONCE .ROUTE ; Start 08/26/18 at 12:49; Stop 08/26/18 at 12:50; Status DC Heparin Sodium (Porcine) (Heparin Sodium) 10,000 unit STK-MED ONCE .ROUTE ; Start 08/26/18 at 12:49; Stop 08/26/18 at 12:50; Status DC Lactobacillus Rhamnosus (Culturelle) 1 cap BID PO Last administered on 09/08/18at 09:34; Start 08/26/18 at 21:00; Stop 09/08/18 at 10:55; Status DC Acetaminophen (Tylenol) 325 mg STK-MED ONCE PO ; Start 08/27/18 at 00:43; Stop 08/27/18 at 00:44; Status DC Sodium Chloride 1,000 ml @ 1,000 mls/hr 1X ONCE IV Last administered on 08/27/18at 11:05; Start 08/27/18 at 10:30; Stop 08/27/18 at 11:29; Status DC Sodium Chloride 1,000 ml @ 1,000 mls/hr Q1H PRN IV hypotension; Start 08/27/18 at 11:28; Stop 08/27/18 at 17:27; Status DC Albumin Human 200 ml @ 200 mls/hr 1X PRN PRN IV Hypotension; Start 08/27/18 at 11:30; Stop 08/27/18 at 17:29; Status DC Sodium Chloride (Normal Saline Flush) 10 ml 1X PRN PRN IV AP catheter pack; Start 08/27/18 at 11:30; Stop 08/28/18 at 11:29; Status DC Sodium Chloride (Normal Saline Flush) 10 ml 1X PRN PRN IV DIE FITTER catheter pack; Start 08/27/18 at 11:30; Stop 08/28/18 at 11:29; Status DC Sodium Chloride 1,000 ml @ 400 mls/hr Q2H30M PRN IV PATENCY; Start 08/27/18 at 11:28; Stop 08/27/18 at 23:27; Status DC Info (PHARMACY MONITORING -- do not chart) 1 each PRN DAILY PRN MC SEE COMMENTS; Start 08/27/18 at 11:30; Status UNV Info (PHARMACY MONITORING -- do not chart) 1 each PRN DAILY PRN MC SEE COMMENTS; Start 08/27/18 at 11:30; Status UNV Famotidine (Pepcid) 20 mg Q48H PO ; Start 08/29/18 at 09:00; Stop 08/29/18 at 11:29; Status DC Acetaminophen (Tylenol) 650 mg PRN Q6HRS PRN PO mild pain/fever; Start 08/27/18 at 21:15 Acetaminophen (Tylenol Supp) 650 mg PRN Q6HRS PRN GA MILD PAIN / TEMP Last administered on 09/02/18at 01:18; Start 08/27/18 at 21:15 Fentanyl Citrate (Fentanyl 2ml Vial) 25 mcg 1X ONCE IV Last administered on 08/28/18at 08:54; Start 08/28/18 at 08:45; Stop 08/28/18 at 08:47; Status DC Lidocaine/Sodium Bicarbonate (Buffered Lidocaine 1%) 3 ml STK-MED ONCE .ROUTE ; Start 08/28/18 at 09:55; Stop 08/28/18 at 09:56; Status DC Lidocaine HCl (Glydo (Lidocaine) Jelly) 1 emng 1X STAT MM Last administered on 08/28/18at 10:16; Start 08/28/18 at 10:16; Stop 08/28/18 at 10:19; Status DC Benzocaine (Hurricaine One) 1 spray 1X STAT MM Last administered on 08/28/18at 10:16; Start 08/28/18 at 10:16; Stop 08/28/18 at 10:19; Status DC Lidocaine/Sodium Bicarbonate (Buffered Lidocaine 1%) 3 ml 1X ONCE INJ ; Start 08/28/18 at 10:30; Stop 08/28/18 at 10:31; Status DC Haloperidol Lactate (Haldol Inj) 5 mg PRN Q6HRS PRN IVP AGITATION Last administered on 09/06/18at 05:53; Start 08/28/18 at 12:00 Fentanyl Citrate (Fentanyl 2ml Vial) 50 mcg PRN Q4HRS PRN IV PAIN Last administered on 08/28/18at 21:44; Start 08/28/18 at 15:30; Stop 09/05/18 at 02:11; Status DC Sodium Chloride 1,000 ml @ 1,000 mls/hr Q1H PRN IV hypotension; Start 08/28/18 at 14:00; Stop 08/28/18 at 19:59; Status DC Albumin Human 200 ml @ 200 mls/hr 1X PRN PRN IV Hypotension Last administered on 08/28/18at 14:50; Start 08/28/18 at 14:00; Stop 09/03/18 at 18:17; Status DC Sodium Chloride 1,000 ml @ 400 mls/hr Q2H30M PRN IV PATENCY; Start 08/28/18 at 14:00; Stop 08/29/18 at 01:59; Status DC Info (PHARMACY MONITORING -- do not chart) 1 each PRN DAILY PRN MC SEE COMMENTS; Start 08/28/18 at 15:30; Status UNV Info (PHARMACY MONITORING -- do not chart) 1 each PRN DAILY PRN MC SEE COMMENTS; Start 08/28/18 at 15:30; Status UNV Daptomycin 610 mg/ Sodium Chloride 50 ml @ 100 mls/hr Q48H IV ; Start 08/30/18 at 16:00; Stop 08/30/18 at 16:00; Status DC Famotidine (Pepcid Vial) 20 mg QHS IVP Last administered on 08/31/18at 20:59; Start 08/29/18 at 21:00; Stop 09/01/18 at 11:00; Status DC Acyclovir Sodium 340 mg/Dextrose 106.8 ml @ 106.8 mls/ hr Q12HR IV Last administered on 09/01/18at 11:05; Start 08/30/18 at 09:00; Stop 09/01/18 at 13:37; Status DC Sodium Chloride 1,000 ml @ 1,000 mls/hr Q1H PRN IV hypotension; Start 08/30/18 at 11:02; Stop 08/30/18 at 17:01; Status DC Sodium Chloride 1,000 ml @ 400 mls/hr Q2H30M PRN IV PATENCY; Start 08/30/18 at 11:02; Stop 08/30/18 at 23:01; Status DC Info (PHARMACY MONITORING -- do not chart) 1 each PRN DAILY PRN MC SEE COMMENTS; Start 08/30/18 at 11:15; Status UNV Info (PHARMACY MONITORING -- do not chart) 1 each PRN DAILY PRN MC SEE COMMENTS; Start 08/30/18 at 11:15; Status UNV Info (Tpn Per Pharmacy) 1 each PRN DAILY PRN MC SEE COMMENTS Last administered on 09/03/18at 10:53; Start 08/30/18 at 12:45; Stop 09/04/18 at 12:50; Status DC Sodium Chloride 90 meq/Potassium Chloride 50 meq/ Potassium Phosphate 3 mmol/ Magnesium Sulfate 10 meq/Calcium Gluconate 10 meq/ Multivitamins 10 ml/Chromium/ Copper/Manganese/ Seleni/Zn 1 ml/ Total Parenteral Nutrition/Amino Acids/Dextrose/ Fat Emulsion Intravenous 1,512 ml @ 63 mls/hr TPN CONT IV Last administered on 08/30/18at 21:40; Start 08/30/18 at 22:00; Stop 08/31/18 at 21:59; Status DC Ondansetron HCl (Zofran) 4 mg PRN Q6HRS PRN IV NAUSEA/VOMITING; Start 08/31/18 at 08:00 Haloperidol (Haldol) 2 mg PRN QID PRN PO AGITATION; Start 08/31/18 at 08:00; Stop 08/31/18 at 12:43; Status DC Haloperidol Lactate (HALDOL 2mg ORAL CONC) 2 mg PRN QID PRN PO AGITATION; Start 08/31/18 at 12:43 Sodium Chloride 90 meq/Potassium Chloride 50 meq/ Potassium Phosphate 5 mmol/ Magnesium Sulfate 3 meq/Calcium Gluconate 10 meq/ Multivitamins 10 ml/Chromium/ Copper/Manganese/ Seleni/Zn 1 ml/ Total Parenteral Nutrition/Amino Acids/Dextrose 1,512 ml @ 63 mls/hr TPN CONT IV Last administered on 08/31/18at 20:59; Start 08/31/18 at 22:00; Stop 09/01/18 at 21:59; Status DC Propofol 100 ml @ As Directed STK-MED ONCE IV ; Start 08/31/18 at 22:45; Stop 08/31/18 at 22:46; Status DC Succinylcholine Chloride (Anectine) 200 mg STK-MED ONCE .ROUTE ; Start 08/31/18 at 22:46; Stop 08/31/18 at 22:47; Status DC Atropine Sulfate (ATROPINE 1mg SYRINGE) 1 mg STK-MED ONCE .ROUTE ; Start 08/31/18 at 22:58; Stop 08/31/18 at 22:59; Status DC Fentanyl Citrate 30 ml @ 0 mls/hr CONT PRN IV SEE PROTOCOL Last administered on 09/06/18at 10:39; Start 09/01/18 at 00:00; Stop 09/06/18 at 10:59; Status DC Propofol 100 ml @ 0 mls/hr CONT PRN IV SEE PROTOCOL Last administered on 09/06/18at 08:14; Start 09/01/18 at 00:00; Stop 09/06/18 at 10:59; Status DC Chlorhexidine Gluconate (Peridex) 15 ml BID MM Last administered on 09/07/18at 21:21; Start 09/01/18 at 09:00; Stop 09/08/18 at 08:04; Status DC Midazolam HCl 100 ml @ 0 mls/hr CONT PRN IV SEE PROTOCOL; Start 09/01/18 at 00:00; Stop 09/08/18 at 11:30; Status DC Albuterol/ Ipratropium (Duoneb) 3 ml RTQID NEB Last administered on 09/13/18at 11:35; Start 09/01/18 at 08:00 Albuterol/ Ipratropium (Duoneb) 3 ml 1X ONCE NEB Last administered on 09/01/18at 01:10; Start 09/01/18 at 01:00; Stop 09/01/18 at 01:01; Status DC Succinylcholine Chloride (Anectine) 200 mg 1X ONCE IV Last administered on 08/31/18at 23:04; Start 09/01/18 at 01:15; Stop 09/01/18 at 01:16; Status DC Sodium Chloride 1,000 ml @ 1,000 mls/hr Q1H PRN IV hypotension; Start 09/01/18 at 07:00; Stop 09/01/18 at 12:59; Status DC Sodium Chloride (Normal Saline Flush) 10 ml 1X PRN PRN IV AP catheter pack; Start 09/01/18 at 07:00; Stop 09/02/18 at 06:59; Status DC Sodium Chloride (Normal Saline Flush) 10 ml 1X PRN PRN IV DIE FITTER catheter pack; Start 09/01/18 at 07:00; Stop 09/02/18 at 06:59; Status DC Sodium Chloride 1,000 ml @ 400 mls/hr Q2H30M PRN IV PATENCY; Start 09/01/18 at 07:00; Stop 09/01/18 at 18:59; Status DC Info (PHARMACY MONITORING -- do not chart) 1 each PRN DAILY PRN MC SEE COMMENTS; Start 09/01/18 at 11:00; Status Cancel Info (PHARMACY MONITORING -- do not chart) 1 each PRN DAILY PRN MC SEE COMMENTS; Start 09/01/18 at 11:00; Status Cancel Famotidine (Pepcid Vial) 20 mg Q48H IVP Last administered on 09/11/18at 19:56; Start 09/03/18 at 21:00 Sodium Chloride 90 meq/Potassium Chloride 50 meq/ Potassium Phosphate 10 mmol/ Calcium Gluconate 10 meq/ Multivitamins 10 ml/Chromium/ Copper/Manganese/ Seleni/Zn 1 ml/ Total Parenteral Nutrition/Amino Acids/Dextrose 1,512 ml @ 63 mls/hr TPN CONT IV Last administered on 09/01/18at 22:11; Start 09/01/18 at 22:00; Stop 09/02/18 at 21:59; Status DC Piperacillin Sod/ Tazobactam Sod 2.25 gm/Sodium Chloride 50 ml @ 100 mls/hr Q6HRS IV Last administered on 09/11/18at 05:19; Start 09/01/18 at 14:00; Stop 09/11/18 at 09:29; Status DC Sodium Chloride 110 meq/Potassium Chloride 50 meq/ Potassium Phosphate 10 mmol/ Calcium Gluconate 10 meq/ Multivitamins 10 ml/Chromium/ Copper/Manganese/ Seleni/Zn 1 ml/ Magnesium Sulfate 3 meq/Total Parenteral Nutrition/Amino Acids/Dextrose 1,512 ml @ 63 mls/hr TPN CONT IV Last administered on 08/09 09/26at 22:13; Start 09/02/18 at 22:00; Stop 09/03/18 at 21:59; Status DC Darbepoetin Phil (Aranesp) 100 mcg [id number] SQ Last administered on 09/10/18at 21:35; Start 09/03/18 at 21:00; Stop 09/13/18 at 13:16; Status DC Sodium Chloride 130 meq/Potassium Acetate 20 meq/ Calcium Gluconate 10 meq/ Multivitamins 10 ml/Chromium/ Copper/Manganese/ Seleni/Zn 1 ml/ Magnesium Sulfate 3 meq/Total Parenteral Nutrition/Amino Acids/Dextrose 1,512 ml @ 63 mls/hr TPN CONT IV Last administered on 09/03/18at 22:12; Start 09/03/18 at 22:00; Stop 09/04/18 at 21:59; Status DC Albumin Human 200 ml @ 200 mls/hr 1X PRN PRN IV Hypotension; Start 09/03/18 at 10:00; Stop 09/03/18 at 21:00; Status DC Sodium Chloride (Normal Saline Flush) 10 ml 1X PRN PRN IV AP catheter pack; Start 09/03/18 at 10:00; Stop 09/03/18 at 21:00; Status DC Sodium Chloride (Normal Saline Flush) 10 ml 1X PRN PRN IV DIE FITTER catheter pack; Start 09/03/18 at 10:00; Stop 09/03/18 at 21:00; Status DC Sodium Chloride 1,000 ml @ 400 mls/hr Q2H30M PRN IV PATENCY; Start 09/03/18 at 10:00; Stop 09/03/18 at 21:59; Status DC Info (PHARMACY MONITORING -- do not chart) 1 each PRN DAILY PRN MC SEE COMMENTS; Start 09/03/18 at 18:15; Status UNV Atropine Sulfate (ATROPINE 0.5mg SYRINGE) 0.5 mg STK-MED ONCE .ROUTE ; Start 08/31/18 at 08:06; Stop 09/04/18 at 08:07; Status DC Epinephrine HCl (EPINEPHrine SYRINGE) 3 mg STK-MED ONCE .ROUTE ; Start 08/31/18 at 08:06; Stop 09/04/18 at 08:07; Status DC Sodium Bicarbonate (Sodium Bicarb Adult 8.4% Syr) 100 meq STK-MED ONCE .ROUTE ; Start 08/31/18 at 08:06; Stop 09/04/18 at 08:07; Status DC Levofloxacin/ Dextrose 150 ml @ 100 mls/hr QODAY IV Last administered on 09/06/18at 10:28; Start 09/04/18 at 09:00; Stop 09/07/18 at 07:52; Status DC Sodium Chloride 1,000 ml @ 1,000 mls/hr Q1H PRN IV hypotension; Start 09/04/18 at 08:23; Stop 09/04/18 at 14:24; Status DC Albumin Human 200 ml @ 200 mls/hr 1X PRN PRN IV Hypotension; Start 09/04/18 at 08:30; Stop 09/04/18 at 14:29; Status DC Sodium Chloride 1,000 ml @ 400 mls/hr Q2H30M PRN IV PATENCY; Start 09/04/18 at 08:23; Stop 09/04/18 at 20:22; Status DC Info (PHARMACY MONITORING -- do not chart) 1 each PRN DAILY PRN MC SEE COMMENTS; Start 09/04/18 at 08:30; Stop 09/05/18 at 08:55; Status DC Info (PHARMACY MONITORING -- do not chart) 1 each PRN DAILY PRN MC SEE COMMENTS; Start 09/04/18 at 08:30; Status UNV Linezolid/Dextrose 300 ml @ 300 mls/hr Q12HR IV Last administered on 09/09/18at 21:21; Start 09/05/18 at 09:30; Stop 09/10/18 at 07:34; Status DC Sodium Chloride 1,000 ml @ 1,000 mls/hr Q1H PRN IV hypotension; Start 09/05/18 at 08:51; Stop 09/05/18 at 14:50; Status DC Sodium Chloride (Normal Saline Flush) 10 ml 1X PRN PRN IV AP catheter pack; Start 09/05/18 at 09:00; Stop 09/06/18 at 08:59; Status DC Sodium Chloride (Normal Saline Flush) 10 ml 1X PRN PRN IV DIE FITTER catheter pack; Start 09/05/18 at 09:00; Stop 09/06/18 at 08:59; Status DC Sodium Chloride 1,000 ml @ 400 mls/hr Q2H30M PRN IV PATENCY; Start 09/05/18 at 08:51; Stop 09/05/18 at 20:50; Status DC Info (PHARMACY MONITORING -- do not chart) 1 each PRN DAILY PRN MC SEE COMMENTS; Start 09/05/18 at 09:00; Stop 09/05/18 at 09:00; Status DC Info (PHARMACY MONITORING -- do not chart) 1 each PRN DAILY PRN MC SEE COMMENTS; Start 09/05/18 at 09:00; Status Cancel Fentanyl Citrate (Fentanyl 2ml Vial) 25 mcg PRN Q2HR PRN IV MODERATE PAIN Last administered on 09/12/18at 02:57; Start 09/06/18 at 11:00 Dexmedetomidine HCl 200 mcg/ Sodium Chloride 50 ml @ 0 mls/hr CONT PRN IV PER PROTOCOL; Start 09/06/18 at 11:00; Stop 09/08/18 at 08:03; Status DC Sodium Chloride 500 ml @ 500 mls/hr 1X PRN PRN IV SEE COMMENTS; Start 09/06/18 at 11:00 Atropine Sulfate (ATROPINE 0.5mg SYRINGE) 0.5 mg PRN Q5MIN PRN IV SEE COMMENTS; Start 09/06/18 at 11:00 Sodium Chloride 1,000 ml @ 1,000 mls/hr Q1H PRN IV hypotension; Start 09/06/18 at 11:52; Stop 09/06/18 at 17:51; Status DC Diphenhydramine HCl (Benadryl) 25 mg 1X PRN PRN IV ITCHING; Start 09/06/18 at 12:00; Stop 09/07/18 at 11:59; Status DC Diphenhydramine HCl (Benadryl) 25 mg 1X PRN PRN IV ITCHING; Start 09/06/18 at 12:00; Stop 09/07/18 at 11:59; Status DC Sodium Chloride 1,000 ml @ 400 mls/hr Q2H30M PRN IV PATENCY; Start 09/06/18 at 11:52; Stop 09/06/18 at 23:51; Status DC Info (PHARMACY MONITORING -- do not chart) 1 each PRN DAILY PRN MC SEE COMMENTS; Start 09/06/18 at 12:00; Stop 09/06/18 at 12:00; Status DC Micafungin Sodium 100 mg/Dextrose 100 ml @ 100 mls/hr Q24H IV Last administered on 09/13/18at 09:38; Start 09/07/18 at 08:30 Sodium Chloride 1,000 ml @ 1,000 mls/hr Q1H PRN IV hypotension; Start 09/07/18 at 16:29; Stop 09/07/18 at 22:28; Status DC Diphenhydramine HCl (Benadryl) 25 mg 1X PRN PRN IV ITCHING; Start 09/07/18 at 16:30; Stop 09/08/18 at 16:29; Status DC Diphenhydramine HCl (Benadryl) 25 mg 1X PRN PRN IV ITCHING; Start 09/07/18 at 16:30; Stop 09/08/18 at 16:29; Status DC Sodium Chloride 1,000 ml @ 400 mls/hr Q2H30M PRN IV PATENCY; Start 09/07/18 at 16:29; Stop 09/08/18 at 04:28; Status DC Info (PHARMACY MONITORING -- do not chart) 1 each PRN DAILY PRN MC SEE COMMENTS; Start 09/07/18 at 16:30; Stop 09/11/18 at 10:21; Status DC Lidocaine/Sodium Bicarbonate (Buffered Lidocaine 1%) 3 ml 1X ONCE INJ Last administered on 09/10/18at 09:51; Start 09/10/18 at 08:45; Stop 09/10/18 at 08:46; Status DC Heparin Sodium (Porcine) (Heparin Sodium) 2,400 unit 1X ONCE INT CAT Last administered on 09/10/18at 09:51; Start 09/10/18 at 08:45; Stop 09/10/18 at 08:46; Status DC Sodium Chloride 1,000 ml @ 1,000 mls/hr Q1H PRN IV hypotension; Start 09/10/18 at 13:19; Stop 09/10/18 at 19:18; Status DC Diphenhydramine HCl (Benadryl) 25 mg 1X PRN PRN IV ITCHING; Start 09/10/18 at 13:30; Stop 09/11/18 at 13:29; Status DC Diphenhydramine HCl (Benadryl) 25 mg 1X PRN PRN IV ITCHING; Start 09/10/18 at 13:30; Stop 09/11/18 at 13:29; Status DC Sodium Chloride 1,000 ml @ 400 mls/hr Q2H30M PRN IV PATENCY; Start 09/10/18 at 13:19; Stop 09/11/18 at 01:18; Status DC Info (PHARMACY MONITORING -- do not chart) 1 each PRN DAILY PRN MC SEE COMMENTS; Start 09/10/18 at 13:30 Amlodipine Besylate (Norvasc) 2.5 mg DAILY PO Last administered on 09/13/18at 11:07; Start 09/11/18 at 11:00 Daptomycin 640 mg/ Sodium Chloride 50 ml @ 100 mls/hr ONCE ONCE IV Last administered on 09/11/18at 12:41; Start 09/11/18 at 12:00; Stop 09/11/18 at 12:29; Status DC Cefepime HCl (Maxipime) 1 gm Q24H IVP Last administered on 09/13/18at 10:57; Start 09/11/18 at 11:00 Lidocaine/Sodium Bicarbonate (Buffered Lidocaine 1%) 3 ml STK-MED ONCE .ROUTE ; Start 09/10/18 at 09:21; Stop 09/11/18 at 17:40; Status DC Heparin Sodium (Porcine) (Heparin Sodium) 10,000 unit STK-MED ONCE .ROUTE ; Start 09/10/18 at 09:21; Stop 09/11/18 at 17:40; Status DC Lidocaine/Sodium Bicarbonate (Buffered Lidocaine 1%) 3 ml STK-MED ONCE .ROUTE ; Start 09/10/18 at 09:37; Stop 09/11/18 at 17:41; Status DC Heparin Sodium (Porcine) (Heparin Sodium) 10,000 unit STK-MED ONCE .ROUTE ; Start 09/10/18 at 09:37; Stop 09/11/18 at 17:41; Status DC Sodium Chloride 1,000 ml @ 1,000 mls/hr Q1H PRN IV hypotension; Start 09/12/18 at 08:00; Stop 09/12/18 at 13:59; Status DC Sodium Chloride 1,000 ml @ 400 mls/hr Q2H30M PRN IV PATENCY; Start 09/12/18 at 08:00; Stop 09/12/18 at 19:59; Status DC Info (PHARMACY MONITORING -- do not chart) 1 each PRN DAILY PRN MC SEE COMMENTS; Start 09/12/18 at 12:45; Status UNV Info (PHARMACY MONITORING -- do not chart) 1 each PRN DAILY PRN MC SEE COMMENTS; Start 09/12/18 at 12:45; Status UNV Daptomycin 640 mg/ Sodium Chloride 50 ml @ 100 mls/hr ONCE ONCE IV Last administered on 09/13/18at 11:03; Start 09/13/18 at 10:15; Stop 09/13/18 at 10:45; Status DC Darbepoetin Phil (ARANESP for DIALYSIS PTS) 100 mcg WEEKLYHS SQ ; Start 09/17/18 at 21:00 Active Scripts Active Mycamine (Micafungin Sodium) 100 Mg Vial 100 Mg IV DAILY 10 Days Daptomycin 350 Mg Vial 640 Mg IV DAILY 14 Days [Cefepime Hcl] 1 GM Vial 1 Gm IVP Q24H 14 Days Potassium Chloride 20 Meq Tablet.er 20 Meq PO DAILY Orphenadrine Citrate 100 Mg Tablet.er 100 Mg PO Q12HR Anaprox Ds (Naproxen Sodium) 550 Mg Tablet 550 Mg PO Q12HR Reported Hydrochlorothiazide Tablet (Hydrochlorothiazide) 12.5 Mg Tablet 12.5 Mg PO DAILY Shilpi Allergy (Fexofenadine Hcl) 180 Mg Tablet 1 Tab PO DAILY Vitals/I & O Vital Sign - Last 24 Hours 09/12/18 09/12/18 09/12/18 09/12/18 16:53 19:40 20:00 21:14 Temp 98.4 98.4 Pulse 87 Resp 22 B/P (MAP) 157/95 (115) Pulse Ox 91 94 O2 Delivery Nasal Cannula Nasal Cannula Nasal Cannula Nasal Cannula O2 Flow Rate 1.0 3.0 2.0 1.0 09/12/18 09/13/18 09/13/18 09/13/18 23:34 03:31 07:00 08:30 Temp 98.1 98.2 98.3 98.1 98.2 98.3 Pulse 80 81 77 Resp 20 20 20 B/P (MAP) 151/78 (102) 163/87 (112) 159/93 (115) Pulse Ox 95 92 96 O2 Delivery Nasal Cannula Room Air Nasal Cannula Nasal Cannula O2 Flow Rate 3.0 3.0 2.0 09/13/18 09/13/18 09/13/18 09/13/18 08:41 11:07 11:10 11:37 Temp 98.3 98.3 Pulse 77 80 Resp 18 B/P (MAP) 159/93 151/86 (107) Pulse Ox 94 97 O2 Delivery Nasal Cannula Nasal Cannula Nasal Cannula O2 Flow Rate 2.0 3.0 2.0 Intake and Output 09/12/18 09/12/18 09/13/18 15:00 23:00 07:00 Intake Total 100 ml 0 ml 0 ml Output Total 30 ml Balance 100 ml 0 ml -30 ml JAVON COSME MD Sep 13, 2018 14:58
[2018-09-13 15:00] VITALS: BP 144/90
[2018-09-13 19:25] VITALS: BP 155/93
[2018-09-13] MEDS: FAMOTIDINE 20 MG/2 ML VIAL IVP SCH (21:04)
[2018-09-13] MEDS: HALOPERIDOL LACTATE 5 MG/ML VIAL. IVP PRN (22:13)
[2018-09-13] MEDS: fentaNYL PF VIAL 100 MCG/2 ML VIAL IV PRN (22:14)
[2018-09-13 23:16] VITALS: BP 165/90
[2018-09-14 03:27] VITALS: BP 149/95
--- NOTE | 2018-09-14 04:18 | PN ---
DATE: 09/13/2018 INCOMPLETE DICTATION CHIEF COMPLAINT: Tick-borne illness; sepsis; fungemia; severe metabolic encephalopathy; acute renal failure, now on dialysis and resolving respiratory failure, he was on the ventilator. SUBJECTIVE: The patient is without complaints today. He is quiet. He has his NG replaced. His is present. OBJECTIVE: I saw and examined the patient. His heart tones were relatively normal. His lungs were mostly clear. He had pulled . DICTATION ENDS HERE MARIAM BOGGS DO DR: BECKIE/haleigh JOB#: [id number] / [id number]
[2018-09-14 04:39] LABS: BASO # 0.1 x10^3/uL (0.0-0.2); BASO % 1 % (0-3); EOS # 0.4 x10^3/uL (0.0-0.7); EOS % 5 % (0-3); HEMATOCRIT 24.8 % (39.0-53.0); HEMOGLOBIN 8.5 g/dL (13.0-17.5); LYMPH # 2.2 x10^3/uL (1.0-4.8); LYMPH % 24 % (24-48); MEAN CORPUSCULAR HEMOGLOBIN 30 pg (25-35); MEAN CORPUSCULAR HGB CONC 34 g/dL (31-37); MEAN CORPUSCULAR VOLUME 89 fL (79-100); MONO % 11 % (0-9); NEUT # 5.4 x10^3uL (1.8-7.7); NEUT % 59 % (31-73); PLATELET COUNT 359 x10^3/uL (140-400); RED BLOOD COUNT 2.79 x10^6/uL (4.30-5.70); RED CELL DISTRIBUTION WIDTH 20.6 % (11.5-14.5); WHITE BLOOD COUNT 9.1 x10^3/uL (4.0-11.0)
[2018-09-14] MEDS: IPRATRPIUM/ALBUTEROL 0.5/2.5MG 3 ML NEBU. NEB SCH ×3 (06:22→15:45)
[2018-09-14 07:05] VITALS: BP 160/91
[2018-09-14] MEDS: MICAFUNGIN 100 MG in IV DEXTROSE 5% 100ML 100 ML IV SCH (08:30)
[2018-09-14] MEDS ORDERED: LIDOCAINE WITH 8.4% SOD BICARB 3 ML DISP.SYRIN. ONE (08:42)
[2018-09-14] MEDS ORDERED: HEPARIN for IV BOLUS 10,000 UNIT/10 ML VIAL. ONE (08:42)
[2018-09-14] MEDS: amLODIPine BESYLATE 5 MG TABLET PO SCH (09:00)
--- NOTE | 2018-09-14 09:00 | PDOC ---
PROGRESS NOTES Assessment Problems Medical Problems: (1) Acute renal failure Status: Acute Metabolic encephalopathy, much better. 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 He pulled out NG and dialysis catheter, clenches his fists. Frustrated from prolonged hospital stay Plan Treat medical diseases. Hold on repeating lumbar puncture, given improvement Subjective no pain currently, calm Objective Vital Signs Date Time Temp Pulse Resp B/P (MAP) Pulse Ox O2 Delivery O2 Flow Rate FiO2 09/14/18 07:05 98.7 82 20 160/91 (114) 97 Nasal Cannula 3.0 98.7 Intake and Output 09/14/18 06:59 Intake Total 100 ml Output Total 175 ml Balance -75 ml Intake Oral 0 ml Tube Feeding 100 ml Output Urine Total 175 ml # Bowel Movements 2 PHYSICAL EXAM Alert, knows name of hospital, not date, speech fluent, follows commands PERRL. EOMI. CN: no focal findings. Muscle tone: normal. Muscle strength: 4/5 DTR: 1+ Plantar reflex: silent Gait: not examined in bed. Sensory exam: no abnormal findings. No cerebellar signs elicited. Review of Relevant I have reviewed the following items gera (where applicable) has been applied. Labs Laboratory Tests Test 09/13/18 10:00 09/14/18 04:00 White Blood Count 7.8 x10^3/uL (4.0-11.0) 9.1 x10^3/uL (4.0-11.0) Red Blood Count 2.74 x10^6/uL (4.30-5.70) 2.79 x10^6/uL (4.30-5.70) Hemoglobin 8.3 g/dL (13.0-17.5) 8.5 g/dL (13.0-17.5) Hematocrit 24.3 % (39.0-53.0) 24.8 % (39.0-53.0) Mean Corpuscular Volume 89 fL (79-100) 89 fL (79-100) Mean Corpuscular Hemoglobin 30 pg (25-35) 30 pg (25-35) Mean Corpuscular Hemoglobin Concent 34 g/dL (31-37) 34 g/dL (31-37) Red Cell Distribution Width 20.4 % (11.5-14.5) 20.6 % (11.5-14.5) Platelet Count 356 x10^3/uL (140-400) 359 x10^3/uL (140-400) Neutrophils (%) (Auto) 49 % (31-73) 59 % (31-73) Lymphocytes (%) (Auto) 33 % (24-48) 24 % (24-48) Monocytes (%) (Auto) 13 % (0-9) 11 % (0-9) Eosinophils (%) (Auto) 4 % (0-3) 5 % (0-3) Basophils (%) (Auto) 2 % (0-3) 1 % (0-3) Neutrophils # (Auto) 3.8 x10^3uL (1.8-7.7) 5.4 x10^3uL (1.8-7.7) Lymphocytes # (Auto) 2.5 x10^3/uL (1.0-4.8) 2.2 x10^3/uL (1.0-4.8) Monocytes # (Auto) 1.0 x10^3/uL (0.0-1.1) 1.0 x10^3/uL (0.0-1.1) Eosinophils # (Auto) 0.3 x10^3/uL (0.0-0.7) 0.4 x10^3/uL (0.0-0.7) Basophils # (Auto) 0.1 x10^3/uL (0.0-0.2) 0.1 x10^3/uL (0.0-0.2) Sodium Level 138 mmol/L (136-145) Potassium Level 4.9 mmol/L (3.5-5.1) Chloride Level 97 mmol/L (98-107) Carbon Dioxide Level 27 mmol/L (21-32) Anion Gap 14 (6-14) Blood Urea Nitrogen 52 mg/dL (8-26) Creatinine 7.2 mg/dL (0.7-1.3) Estimated GFR (Cockcroft-Gault) 8.0 Glucose Level 92 mg/dL (70-99) Calcium Level 9.0 mg/dL (8.5-10.1) Ammonia < 10 mcmol/L (11-34) Laboratory Tests Test 09/13/18 10:00 09/14/18 04:00 White Blood Count 7.8 x10^3/uL (4.0-11.0) 9.1 x10^3/uL (4.0-11.0) Red Blood Count 2.74 x10^6/uL (4.30-5.70) 2.79 x10^6/uL (4.30-5.70) Hemoglobin 8.3 g/dL (13.0-17.5) 8.5 g/dL (13.0-17.5) Hematocrit 24.3 % (39.0-53.0) 24.8 % (39.0-53.0) Mean Corpuscular Volume 89 fL (79-100) 89 fL (79-100) Mean Corpuscular Hemoglobin 30 pg (25-35) 30 pg (25-35) Mean Corpuscular Hemoglobin Concent 34 g/dL (31-37) 34 g/dL (31-37) Red Cell Distribution Width 20.4 % (11.5-14.5) 20.6 % (11.5-14.5) Platelet Count 356 x10^3/uL (140-400) 359 x10^3/uL (140-400) Neutrophils (%) (Auto) 49 % (31-73) 59 % (31-73) Lymphocytes (%) (Auto) 33 % (24-48) 24 % (24-48) Monocytes (%) (Auto) 13 % (0-9) 11 % (0-9) Eosinophils (%) (Auto) 4 % (0-3) 5 % (0-3) Basophils (%) (Auto) 2 % (0-3) 1 % (0-3) Neutrophils # (Auto) 3.8 x10^3uL (1.8-7.7) 5.4 x10^3uL (1.8-7.7) Lymphocytes # (Auto) 2.5 x10^3/uL (1.0-4.8) 2.2 x10^3/uL (1.0-4.8) Monocytes # (Auto) 1.0 x10^3/uL (0.0-1.1) 1.0 x10^3/uL (0.0-1.1) Eosinophils # (Auto) 0.3 x10^3/uL (0.0-0.7) 0.4 x10^3/uL (0.0-0.7) Basophils # (Auto) 0.1 x10^3/uL (0.0-0.2) 0.1 x10^3/uL (0.0-0.2) Sodium Level 138 mmol/L (136-145) Potassium Level 4.9 mmol/L (3.5-5.1) Chloride Level 97 mmol/L (98-107) Carbon Dioxide Level 27 mmol/L (21-32) Anion Gap 14 (6-14) Blood Urea Nitrogen 52 mg/dL (8-26) Creatinine 7.2 mg/dL (0.7-1.3) Estimated GFR (Cockcroft-Gault) 8.0 Glucose Level 92 mg/dL (70-99) Calcium Level 9.0 mg/dL (8.5-10.1) Ammonia < 10 mcmol/L (11-34) Microbiology 09/11/18 Blood Culture - Preliminary, Resulted NO GROWTH AFTER 2 DAYS 08/29/18 CSF Gram Stain - Final, Complete 08/27/18 Stool Culture - Final, Complete 08/27/18 Stool Culture Result 1 (LOTUS) - Final, Complete 08/27/18 Campylobacter Antigen Assay - Final, Complete 08/27/18 Campylobactor Result 1 - Final, Complete 08/27/18 Shiga Toxin Test - Final, Complete 09/05/18 - Final, Complete 09/05/18 - Final, Complete 09/05/18 - Final, Complete 09/05/18 Gram Stain Evaluation - Final, Complete 09/05/18 Sputum Culture - Final, Complete 09/05/18 Sputum Result 1 - Final, Complete 09/04/18 Urine Culture - Final, Complete 09/04/18 Urine Culture Result 1 (LOTUS) - Final, Complete Medications Current Medications Sodium Chloride 1,000 ml @ 1,000 mls/hr 1X ONCE IV Last administered on 08/25/18at 20:38; Start 08/25/18 at 19:15; Stop 08/25/18 at 20:14; Status DC Ibuprofen (Motrin) 600 mg 1X ONCE PO Last administered on 08/25/18at 20:38; Start 08/25/18 at 19:45; Stop 08/25/18 at 19:49; Status DC Sodium Chloride 1,000 ml @ 1,000 mls/hr 1X ONCE IV Last administered on 08/25/18at 20:30; Start 08/25/18 at 20:30; Stop 08/25/18 at 21:29; Status DC Ceftriaxone Sodium (Rocephin) 1 gm 1X ONCE IVP Last administered on 08/25/18at 20:36; Start 08/25/18 at 20:30; Stop 08/25/18 at 20:31; Status DC Vancomycin HCl 2 gm/Sodium Chloride 500 ml @ 250 mls/hr 1X ONCE IV Last administered on 08/25/18at 23:10; Start 08/25/18 at 21:30; Stop 08/25/18 at 23:29; Status DC Sodium Chloride 1,000 ml @ 1,000 mls/hr 1X ONCE IV Last administered on 08/25/18at 23:51; Start 08/25/18 at 21:00; Stop 08/25/18 at 21:59; Status DC Piperacillin Sod/ Tazobactam Sod 4.5 gm/Sodium Chloride 100 ml @ 200 mls/hr 1X ONCE IV ; Start 08/25/18 at 21:15; Stop 08/25/18 at 21:44; Status DC Aztreonam (Azactam) 2 gm 1X ONCE IVP Last administered on 08/25/18at 21:15; Start 08/25/18 at 21:15; Stop 08/25/18 at 21:16; Status DC Magnesium Sulfate 50 ml @ 25 mls/hr 1X ONCE IV Last administered on 08/25/18at 23:51; Start 08/25/18 at 21:15; Stop 08/25/18 at 23:14; Status DC Ondansetron HCl (Zofran) 4 mg PRN Q8HRS PRN IV NAUSEA/VOMITING; Start 08/25/18 at 21:15; Stop 08/26/18 at 21:14; Status DC Acetaminophen (Tylenol) 650 mg PRN Q4HRS PRN PO FEVER; Start 08/25/18 at 21:15; Stop 08/26/18 at 21:14; Status DC Sodium Chloride 1,000 ml @ 125 mls/hr 1X ONCE IV Last administered on 08/25/18at 23:09; Start 08/25/18 at 21:15; Stop 08/26/18 at 05:14; Status DC Daptomycin 610 mg/ Sodium Chloride 50 ml @ 100 mls/hr QODAY IV Last administered on 08/27/18at 08:59; Start 08/27/18 at 09:00; Stop 08/28/18 at 15:40; Status DC Meropenem 500 mg/ Sodium Chloride 50 ml @ 100 mls/hr 1X ONCE IV Last administered on 08/25/18at 22:12; Start 08/25/18 at 22:00; Stop 08/25/18 at 22:29; Status DC Doxycycline Hyclate 100 mg/ Dextrose 100 ml @ 50 mls/hr Q12HR IV Last administered on 09/03/18at 22:11; Start 08/26/18 at 09:00; Stop 09/04/18 at 08:11; Status DC Meropenem 500 mg/ Sodium Chloride 50 ml @ 100 mls/hr DAILY IV Last administered on 08/29/18at 10:13; Start 08/26/18 at 09:00; Stop 08/30/18 at 08:17; Status DC Sodium Chloride (Normal Saline Flush) 10 ml QSHIFT PRN IV AFTER MEDS AND BLOOD DRAWS; Start 08/26/18 at 09:15 Norepinephrine Bitartrate 250 ml @ 0 mls/hr CONT PRN IV PER PROTOCOL Last administered on 08/27/18at 10:21; Start 08/26/18 at 09:15; Stop 08/30/18 at 17:20; Status DC Famotidine (Pepcid) 20 mg DAILY PO Last administered on 08/27/18at 08:14; Start 08/26/18 at 12:00; Stop 08/27/18 at 14:36; Status DC Sodium Chloride 1,000 ml @ 1,000 mls/hr Q1H PRN IV hypotension; Start 08/26/18 at 11:51; Stop 08/26/18 at 17:50; Status DC Sodium Chloride (Normal Saline Flush) 10 ml 1X PRN PRN IV AP catheter pack; Start 08/26/18 at 12:00; Stop 08/27/18 at 11:59; Status DC Sodium Chloride (Normal Saline Flush) 10 ml 1X PRN PRN IV CARGO TRIMMER catheter pack; Start 08/26/18 at 12:00; Stop 08/27/18 at 11:59; Status DC Sodium Chloride 1,000 ml @ 400 mls/hr Q2H30M PRN IV PATENCY; Start 08/26/18 at 11:51; Stop 08/26/18 at 23:50; Status DC Info (PHARMACY MONITORING -- do not chart) 1 each PRN DAILY PRN MC SEE COMMENTS; Start 08/26/18 at 12:00; Status UNV Info (PHARMACY MONITORING -- do not chart) 1 each PRN DAILY PRN MC SEE COMMENTS; Start 08/26/18 at 12:00; Stop 09/01/18 at 10:59; Status DC Lidocaine/Sodium Bicarbonate (Buffered Lidocaine 1%) 4 ml 1X ONCE INJ Last administered on 08/26/18at 12:45; Start 08/26/18 at 12:45; Stop 08/26/18 at 12:48; Status DC Heparin Sodium (Porcine) (Heparin Sodium) 2,500 unit 1X ONCE INT CAT Last administered on 08/26/18at 12:45; Start 08/26/18 at 12:45; Stop 08/26/18 at 12:48; Status DC Lidocaine/Sodium Bicarbonate (Buffered Lidocaine 1%) 3 ml STK-MED ONCE .ROUTE ; Start 08/26/18 at 12:49; Stop 08/26/18 at 12:50; Status DC Heparin Sodium (Porcine) (Heparin Sodium) 10,000 unit STK-MED ONCE .ROUTE ; Start 08/26/18 at 12:49; Stop 08/26/18 at 12:50; Status DC Lactobacillus Rhamnosus (Culturelle) 1 cap BID PO Last administered on 09/08/18at 09:34; Start 08/26/18 at 21:00; Stop 09/08/18 at 10:55; Status DC Acetaminophen (Tylenol) 325 mg STK-MED ONCE PO ; Start 08/27/18 at 00:43; Stop 08/27/18 at 00:44; Status DC Sodium Chloride 1,000 ml @ 1,000 mls/hr 1X ONCE IV Last administered on 08/27/18at 11:05; Start 08/27/18 at 10:30; Stop 08/27/18 at 11:29; Status DC Sodium Chloride 1,000 ml @ 1,000 mls/hr Q1H PRN IV hypotension; Start 08/27/18 at 11:28; Stop 08/27/18 at 17:27; Status DC Albumin Human 200 ml @ 200 mls/hr 1X PRN PRN IV Hypotension; Start 08/27/18 at 11:30; Stop 08/27/18 at 17:29; Status DC Sodium Chloride (Normal Saline Flush) 10 ml 1X PRN PRN IV AP catheter pack; Start 08/27/18 at 11:30; Stop 08/28/18 at 11:29; Status DC Sodium Chloride (Normal Saline Flush) 10 ml 1X PRN PRN IV CARGO TRIMMER catheter pack; Start 08/27/18 at 11:30; Stop 08/28/18 at 11:29; Status DC Sodium Chloride 1,000 ml @ 400 mls/hr Q2H30M PRN IV PATENCY; Start 08/27/18 at 11:28; Stop 08/27/18 at 23:27; Status DC Info (PHARMACY MONITORING -- do not chart) 1 each PRN DAILY PRN MC SEE COMMENTS; Start 08/27/18 at 11:30; Status UNV Info (PHARMACY MONITORING -- do not chart) 1 each PRN DAILY PRN MC SEE COMMENTS; Start 08/27/18 at 11:30; Status UNV Famotidine (Pepcid) 20 mg Q48H PO ; Start 08/29/18 at 09:00; Stop 08/29/18 at 11:29; Status DC Acetaminophen (Tylenol) 650 mg PRN Q6HRS PRN PO mild pain/fever; Start 08/27/18 at 21:15 Acetaminophen (Tylenol Supp) 650 mg PRN Q6HRS PRN MT MILD PAIN / TEMP Last administered on 09/02/18at 01:18; Start 08/27/18 at 21:15 Fentanyl Citrate (Fentanyl 2ml Vial) 25 mcg 1X ONCE IV Last administered on 08/28/18at 08:54; Start 08/28/18 at 08:45; Stop 08/28/18 at 08:47; Status DC Lidocaine/Sodium Bicarbonate (Buffered Lidocaine 1%) 3 ml STK-MED ONCE .ROUTE ; Start 08/28/18 at 09:55; Stop 08/28/18 at 09:56; Status DC Lidocaine HCl (Glydo (Lidocaine) Jelly) 1 meng 1X STAT MM Last administered on 08/28/18at 10:16; Start 08/28/18 at 10:16; Stop 08/28/18 at 10:19; Status DC Benzocaine (Hurricaine One) 1 spray 1X STAT MM Last administered on 08/28/18at 10:16; Start 08/28/18 at 10:16; Stop 08/28/18 at 10:19; Status DC Lidocaine/Sodium Bicarbonate (Buffered Lidocaine 1%) 3 ml 1X ONCE INJ ; Start 08/28/18 at 10:30; Stop 08/28/18 at 10:31; Status DC Haloperidol Lactate (Haldol Inj) 5 mg PRN Q6HRS PRN IVP AGITATION Last administered on 09/13/18at 22:13; Start 08/28/18 at 12:00 Fentanyl Citrate (Fentanyl 2ml Vial) 50 mcg PRN Q4HRS PRN IV PAIN Last administered on 08/28/18at 21:44; Start 08/28/18 at 15:30; Stop 09/05/18 at 02:11; Status DC Sodium Chloride 1,000 ml @ 1,000 mls/hr Q1H PRN IV hypotension; Start 08/28/18 at 14:00; Stop 08/28/18 at 19:59; Status DC Albumin Human 200 ml @ 200 mls/hr 1X PRN PRN IV Hypotension Last administered on 08/28/18at 14:50; Start 08/28/18 at 14:00; Stop 09/03/18 at 18:17; Status DC Sodium Chloride 1,000 ml @ 400 mls/hr Q2H30M PRN IV PATENCY; Start 08/28/18 at 14:00; Stop 08/29/18 at 01:59; Status DC Info (PHARMACY MONITORING -- do not chart) 1 each PRN DAILY PRN MC SEE COMMENTS; Start 08/28/18 at 15:30; Status UNV Info (PHARMACY MONITORING -- do not chart) 1 each PRN DAILY PRN MC SEE COMMENTS; Start 08/28/18 at 15:30; Status UNV Daptomycin 610 mg/ Sodium Chloride 50 ml @ 100 mls/hr Q48H IV ; Start 08/30/18 at 16:00; Stop 08/30/18 at 16:00; Status DC Famotidine (Pepcid Vial) 20 mg QHS IVP Last administered on 08/31/18at 20:59; Start 08/29/18 at 21:00; Stop 09/01/18 at 11:00; Status DC Acyclovir Sodium 340 mg/Dextrose 106.8 ml @ 106.8 mls/ hr Q12HR IV Last administered on 09/01/18at 11:05; Start 08/30/18 at 09:00; Stop 09/01/18 at 13:37; Status DC Sodium Chloride 1,000 ml @ 1,000 mls/hr Q1H PRN IV hypotension; Start 08/30/18 at 11:02; Stop 08/30/18 at 17:01; Status DC Sodium Chloride 1,000 ml @ 400 mls/hr Q2H30M PRN IV PATENCY; Start 08/30/18 at 11:02; Stop 08/30/18 at 23:01; Status DC Info (PHARMACY MONITORING -- do not chart) 1 each PRN DAILY PRN MC SEE COMMENTS; Start 08/30/18 at 11:15; Status UNV Info (PHARMACY MONITORING -- do not chart) 1 each PRN DAILY PRN MC SEE COMMENTS; Start 08/30/18 at 11:15; Status UNV Info (Tpn Per Pharmacy) 1 each PRN DAILY PRN MC SEE COMMENTS Last administered on 09/03/18at 10:53; Start 08/30/18 at 12:45; Stop 09/04/18 at 12:50; Status DC Sodium Chloride 90 meq/Potassium Chloride 50 meq/ Potassium Phosphate 3 mmol/ Magnesium Sulfate 10 meq/Calcium Gluconate 10 meq/ Multivitamins 10 ml/Chromium/ Copper/Manganese/ Seleni/Zn 1 ml/ Total Parenteral Nutrition/Amino Acids/Dextrose/ Fat Emulsion Intravenous 1,512 ml @ 63 mls/hr TPN CONT IV Last administered on 08/30/18at 21:40; Start 08/30/18 at 22:00; Stop 08/31/18 at 21:59; Status DC Ondansetron HCl (Zofran) 4 mg PRN Q6HRS PRN IV NAUSEA/VOMITING; Start 08/31/18 at 08:00 Haloperidol (Haldol) 2 mg PRN QID PRN PO AGITATION; Start 08/31/18 at 08:00; Stop 08/31/18 at 12:43; Status DC Haloperidol Lactate (HALDOL 2mg ORAL CONC) 2 mg PRN QID PRN PO AGITATION; Start 08/31/18 at 12:43 Sodium Chloride 90 meq/Potassium Chloride 50 meq/ Potassium Phosphate 5 mmol/ Magnesium Sulfate 3 meq/Calcium Gluconate 10 meq/ Multivitamins 10 ml/Chromium/ Copper/Manganese/ Seleni/Zn 1 ml/ Total Parenteral Nutrition/Amino Acids/Dextrose 1,512 ml @ 63 mls/hr TPN CONT IV Last administered on 08/31/18at 20:59; Start 08/31/18 at 22:00; Stop 09/01/18 at 21:59; Status DC Propofol 100 ml @ As Directed STK-MED ONCE IV ; Start 08/31/18 at 22:45; Stop 08/31/18 at 22:46; Status DC Succinylcholine Chloride (Anectine) 200 mg STK-MED ONCE .ROUTE ; Start 08/31/18 at 22:46; Stop 08/31/18 at 22:47; Status DC Atropine Sulfate (ATROPINE 1mg SYRINGE) 1 mg STK-MED ONCE .ROUTE ; Start 08/31/18 at 22:58; Stop 08/31/18 at 22:59; Status DC Fentanyl Citrate 30 ml @ 0 mls/hr CONT PRN IV SEE PROTOCOL Last administered on 09/06/18at 10:39; Start 09/01/18 at 00:00; Stop 09/06/18 at 10:59; Status DC Propofol 100 ml @ 0 mls/hr CONT PRN IV SEE PROTOCOL Last administered on 09/06/18at 08:14; Start 09/01/18 at 00:00; Stop 09/06/18 at 10:59; Status DC Chlorhexidine Gluconate (Peridex) 15 ml BID MM Last administered on 09/07/18at 21:21; Start 09/01/18 at 09:00; Stop 09/08/18 at 08:04; Status DC Midazolam HCl 100 ml @ 0 mls/hr CONT PRN IV SEE PROTOCOL; Start 09/01/18 at 00:00; Stop 09/08/18 at 11:30; Status DC Albuterol/ Ipratropium (Duoneb) 3 ml RTQID NEB Last administered on 09/14/18at 06:22; Start 09/01/18 at 08:00 Albuterol/ Ipratropium (Duoneb) 3 ml 1X ONCE NEB Last administered on 09/01/18at 01:10; Start 09/01/18 at 01:00; Stop 09/01/18 at 01:01; Status DC Succinylcholine Chloride (Anectine) 200 mg 1X ONCE IV Last administered on 08/31/18at 23:04; Start 09/01/18 at 01:15; Stop 09/01/18 at 01:16; Status DC Sodium Chloride 1,000 ml @ 1,000 mls/hr Q1H PRN IV hypotension; Start 09/01/18 at 07:00; Stop 09/01/18 at 12:59; Status DC Sodium Chloride (Normal Saline Flush) 10 ml 1X PRN PRN IV AP catheter pack; Start 09/01/18 at 07:00; Stop 09/02/18 at 06:59; Status DC Sodium Chloride (Normal Saline Flush) 10 ml 1X PRN PRN IV CARGO TRIMMER catheter pack; Start 09/01/18 at 07:00; Stop 09/02/18 at 06:59; Status DC Sodium Chloride 1,000 ml @ 400 mls/hr Q2H30M PRN IV PATENCY; Start 09/01/18 at 07:00; Stop 09/01/18 at 18:59; Status DC Info (PHARMACY MONITORING -- do not chart) 1 each PRN DAILY PRN MC SEE COMMENTS; Start 09/01/18 at 11:00; Status Cancel Info (PHARMACY MONITORING -- do not chart) 1 each PRN DAILY PRN MC SEE COMMENTS; Start 09/01/18 at 11:00; Status Cancel Famotidine (Pepcid Vial) 20 mg Q48H IVP Last administered on 09/13/18at 21:04; Start 09/03/18 at 21:00 Sodium Chloride 90 meq/Potassium Chloride 50 meq/ Potassium Phosphate 10 mmol/ Calcium Gluconate 10 meq/ Multivitamins 10 ml/Chromium/ Copper/Manganese/ Seleni/Zn 1 ml/ Total Parenteral Nutrition/Amino Acids/Dextrose 1,512 ml @ 63 mls/hr TPN CONT IV Last administered on 09/01/18at 22:11; Start 09/01/18 at 22:00; Stop 09/02/18 at 21:59; Status DC Piperacillin Sod/ Tazobactam Sod 2.25 gm/Sodium Chloride 50 ml @ 100 mls/hr Q6HRS IV Last administered on 09/11/18at 05:19; Start 09/01/18 at 14:00; Stop 09/11/18 at 09:29; Status DC Sodium Chloride 110 meq/Potassium Chloride 50 meq/ Potassium Phosphate 10 mmol/ Calcium Gluconate 10 meq/ Multivitamins 10 ml/Chromium/ Copper/Manganese/ Seleni/Zn 1 ml/ Magnesium Sulfate 3 meq/Total Parenteral Nutrition/Amino Acids/Dextrose 1,512 ml @ 63 mls/hr TPN CONT IV Last administered on 09/02/18at 22:13; Start 09/02/18 at 22:00; Stop 09/03/18 at 21:59; Status DC Darbepoetin Phil (Aranesp) 100 mcg [id number] SQ Last administered on 09/10/18at 21:35; Start 09/03/18 at 21:00; Stop 09/13/18 at 13:16; Status DC Sodium Chloride 130 meq/Potassium Acetate 20 meq/ Calcium Gluconate 10 meq/ Multivitamins 10 ml/Chromium/ Copper/Manganese/ Seleni/Zn 1 ml/ Magnesium Sulfate 3 meq/Total Parenteral Nutrition/Amino Acids/Dextrose 1,512 ml @ 63 mls/hr TPN CONT IV Last administered on 09/03/18at 22:12; Start 09/03/18 at 22:00; Stop 09/04/18 at 21:59; Status DC Albumin Human 200 ml @ 200 mls/hr 1X PRN PRN IV Hypotension; Start 09/03/18 at 10:00; Stop 09/03/18 at 21:00; Status DC Sodium Chloride (Normal Saline Flush) 10 ml 1X PRN PRN IV AP catheter pack; Start 09/03/18 at 10:00; Stop 09/03/18 at 21:00; Status DC Sodium Chloride (Normal Saline Flush) 10 ml 1X PRN PRN IV CARGO TRIMMER catheter pack; Start 09/03/18 at 10:00; Stop 09/03/18 at 21:00; Status DC Sodium Chloride 1,000 ml @ 400 mls/hr Q2H30M PRN IV PATENCY; Start 09/03/18 at 10:00; Stop 09/03/18 at 21:59; Status DC Info (PHARMACY MONITORING -- do not chart) 1 each PRN DAILY PRN MC SEE COMMENTS; Start 09/03/18 at 18:15; Status UNV Atropine Sulfate (ATROPINE 0.5mg SYRINGE) 0.5 mg STK-MED ONCE .ROUTE ; Start 08/31/18 at 08:06; Stop 09/04/18 at 08:07; Status DC Epinephrine HCl (EPINEPHrine SYRINGE) 3 mg STK-MED ONCE .ROUTE ; Start 08/31/18 at 08:06; Stop 09/04/18 at 08:07; Status DC Sodium Bicarbonate (Sodium Bicarb Adult 8.4% Syr) 100 meq STK-MED ONCE .ROUTE ; Start 08/31/18 at 08:06; Stop 09/04/18 at 08:07; Status DC Levofloxacin/ Dextrose 150 ml @ 100 mls/hr QODAY IV Last administered on 09/06/18at 10:28; Start 09/04/18 at 09:00; Stop 09/07/18 at 07:52; Status DC Sodium Chloride 1,000 ml @ 1,000 mls/hr Q1H PRN IV hypotension; Start 09/04/18 at 08:23; Stop 09/04/18 at 14:24; Status DC Albumin Human 200 ml @ 200 mls/hr 1X PRN PRN IV Hypotension; Start 09/04/18 at 08:30; Stop 09/04/18 at 14:29; Status DC Sodium Chloride 1,000 ml @ 400 mls/hr Q2H30M PRN IV PATENCY; Start 09/04/18 at 08:23; Stop 09/04/18 at 20:22; Status DC Info (PHARMACY MONITORING -- do not chart) 1 each PRN DAILY PRN MC SEE COMMENTS; Start 09/04/18 at 08:30; Stop 09/05/18 at 08:55; Status DC Info (PHARMACY MONITORING -- do not chart) 1 each PRN DAILY PRN MC SEE COMMENTS; Start 09/04/18 at 08:30; Status UNV Linezolid/Dextrose 300 ml @ 300 mls/hr Q12HR IV Last administered on 09/09/18at 21:21; Start 09/05/18 at 09:30; Stop 09/10/18 at 07:34; Status DC Sodium Chloride 1,000 ml @ 1,000 mls/hr Q1H PRN IV hypotension; Start 09/05/18 at 08:51; Stop 09/05/18 at 14:50; Status DC Sodium Chloride (Normal Saline Flush) 10 ml 1X PRN PRN IV AP catheter pack; Start 09/05/18 at 09:00; Stop 09/06/18 at 08:59; Status DC Sodium Chloride (Normal Saline Flush) 10 ml 1X PRN PRN IV CARGO TRIMMER catheter pack; Start 09/05/18 at 09:00; Stop 09/06/18 at 08:59; Status DC Sodium Chloride 1,000 ml @ 400 mls/hr Q2H30M PRN IV PATENCY; Start 09/05/18 at 08:51; Stop 09/05/18 at 20:50; Status DC Info (PHARMACY MONITORING -- do not chart) 1 each PRN DAILY PRN MC SEE COMMENTS; Start 09/05/18 at 09:00; Stop 09/05/18 at 09:00; Status DC Info (PHARMACY MONITORING -- do not chart) 1 each PRN DAILY PRN MC SEE COMMENTS; Start 09/05/18 at 09:00; Status Cancel Fentanyl Citrate (Fentanyl 2ml Vial) 25 mcg PRN Q2HR PRN IV MODERATE PAIN Last administered on 09/13/18at 22:14; Start 09/06/18 at 11:00 Dexmedetomidine HCl 200 mcg/ Sodium Chloride 50 ml @ 0 mls/hr CONT PRN IV PER PROTOCOL; Start 09/06/18 at 11:00; Stop 09/08/18 at 08:03; Status DC Sodium Chloride 500 ml @ 500 mls/hr 1X PRN PRN IV SEE COMMENTS; Start 09/06/18 at 11:00 Atropine Sulfate (ATROPINE 0.5mg SYRINGE) 0.5 mg PRN Q5MIN PRN IV SEE COMMENTS; Start 09/06/18 at 11:00 Sodium Chloride 1,000 ml @ 1,000 mls/hr Q1H PRN IV hypotension; Start 09/06/18 at 11:52; Stop 09/06/18 at 17:51; Status DC Diphenhydramine HCl (Benadryl) 25 mg 1X PRN PRN IV ITCHING; Start 09/06/18 at 12:00; Stop 09/07/18 at 11:59; Status DC Diphenhydramine HCl (Benadryl) 25 mg 1X PRN PRN IV ITCHING; Start 09/06/18 at 12:00; Stop 09/07/18 at 11:59; Status DC Sodium Chloride 1,000 ml @ 400 mls/hr Q2H30M PRN IV PATENCY; Start 09/06/18 at 11:52; Stop 09/06/18 at 23:51; Status DC Info (PHARMACY MONITORING -- do not chart) 1 each PRN DAILY PRN MC SEE COMMENTS; Start 09/06/18 at 12:00; Stop 09/06/18 at 12:00; Status DC Micafungin Sodium 100 mg/Dextrose 100 ml @ 100 mls/hr Q24H IV Last administered on 09/13/18at 09:38; Start 09/07/18 at 08:30 Sodium Chloride 1,000 ml @ 1,000 mls/hr Q1H PRN IV hypotension; Start 09/07/18 at 16:29; Stop 09/07/18 at 22:28; Status DC Diphenhydramine HCl (Benadryl) 25 mg 1X PRN PRN IV ITCHING; Start 09/07/18 at 16:30; Stop 09/08/18 at 16:29; Status DC Diphenhydramine HCl (Benadryl) 25 mg 1X PRN PRN IV ITCHING; Start 09/07/18 at 16:30; Stop 09/08/18 at 16:29; Status DC Sodium Chloride 1,000 ml @ 400 mls/hr Q2H30M PRN IV PATENCY; Start 09/07/18 at 16:29; Stop 09/08/18 at 04:28; Status DC Info (PHARMACY MONITORING -- do not chart) 1 each PRN DAILY PRN MC SEE COMMENTS; Start 09/07/18 at 16:30; Stop 09/11/18 at 10:21; Status DC Lidocaine/Sodium Bicarbonate (Buffered Lidocaine 1%) 3 ml 1X ONCE INJ Last administered on 09/10/18at 09:51; Start 09/10/18 at 08:45; Stop 09/10/18 at 08:46; Status DC Heparin Sodium (Porcine) (Heparin Sodium) 2,400 unit 1X ONCE INT CAT Last administered on 09/10/18at 09:51; Start 09/10/18 at 08:45; Stop 09/10/18 at 08:46; Status DC Sodium Chloride 1,000 ml @ 1,000 mls/hr Q1H PRN IV hypotension; Start 09/10/18 at 13:19; Stop 09/10/18 at 19:18; Status DC Diphenhydramine HCl (Benadryl) 25 mg 1X PRN PRN IV ITCHING; Start 09/10/18 at 13:30; Stop 09/11/18 at 13:29; Status DC Diphenhydramine HCl (Benadryl) 25 mg 1X PRN PRN IV ITCHING; Start 09/10/18 at 13:30; Stop 09/11/18 at 13:29; Status DC Sodium Chloride 1,000 ml @ 400 mls/hr Q2H30M PRN IV PATENCY; Start 09/10/18 at 13:19; Stop 09/11/18 at 01:18; Status DC Info (PHARMACY MONITORING -- do not chart) 1 each PRN DAILY PRN MC SEE COMMENTS; Start 09/10/18 at 13:30 Amlodipine Besylate (Norvasc) 2.5 mg DAILY PO Last administered on 09/13/18at 11:07; Start 09/11/18 at 11:00 Daptomycin 640 mg/ Sodium Chloride 50 ml @ 100 mls/hr ONCE ONCE IV Last administered on 09/11/18at 12:41; Start 09/11/18 at 12:00; Stop 09/11/18 at 12:29; Status DC Cefepime HCl (Maxipime) 1 gm Q24H IVP Last administered on 09/13/18at 10:57; Start 09/11/18 at 11:00 Lidocaine/Sodium Bicarbonate (Buffered Lidocaine 1%) 3 ml STK-MED ONCE .ROUTE ; Start 09/10/18 at 09:21; Stop 09/11/18 at 17:40; Status DC Heparin Sodium (Porcine) (Heparin Sodium) 10,000 unit STK-MED ONCE .ROUTE ; Start 09/10/18 at 09:21; Stop 09/11/18 at 17:40; Status DC Lidocaine/Sodium Bicarbonate (Buffered Lidocaine 1%) 3 ml STK-MED ONCE .ROUTE ; Start 09/10/18 at 09:37; Stop 09/11/18 at 17:41; Status DC Heparin Sodium (Porcine) (Heparin Sodium) 10,000 unit STK-MED ONCE .ROUTE ; Start 09/10/18 at 09:37; Stop 09/11/18 at 17:41; Status DC Sodium Chloride 1,000 ml @ 1,000 mls/hr Q1H PRN IV hypotension; Start 09/12/18 at 08:00; Stop 09/12/18 at 13:59; Status DC Sodium Chloride 1,000 ml @ 400 mls/hr Q2H30M PRN IV PATENCY; Start 09/12/18 at 08:00; Stop 09/12/18 at 19:59; Status DC Info (PHARMACY MONITORING -- do not chart) 1 each PRN DAILY PRN MC SEE COMMENTS; Start 09/12/18 at 12:45; Status UNV Info (PHARMACY MONITORING -- do not chart) 1 each PRN DAILY PRN MC SEE COMMENTS; Start 09/12/18 at 12:45; Status UNV Daptomycin 640 mg/ Sodium Chloride 50 ml @ 100 mls/hr ONCE ONCE IV Last administered on 09/13/18at 11:03; Start 09/13/18 at 10:15; Stop 09/13/18 at 10:45; Status DC Darbepoetin Phil (ARANESP for DIALYSIS PTS) 100 mcg WEEKLYHS SQ ; Start 09/17/18 at 21:00 Lidocaine/Sodium Bicarbonate (Buffered Lidocaine 1%) 3 ml STK-MED ONCE .ROUTE ; Start 09/14/18 at 08:42; Stop 09/14/18 at 08:43; Status DC Heparin Sodium (Porcine) (Heparin Sodium) 10,000 unit STK-MED ONCE .ROUTE ; Start 09/14/18 at 08:42; Stop 09/14/18 at 08:43; Status DC Active Scripts Active Mycamine (Micafungin Sodium) 100 Mg Vial 100 Mg IV DAILY 10 Days Daptomycin 350 Mg Vial 640 Mg IV DAILY 14 Days [Cefepime Hcl] 1 GM Vial 1 Gm IVP Q24H 14 Days Potassium Chloride 20 Meq Tablet.er 20 Meq PO DAILY Orphenadrine Citrate 100 Mg Tablet.er 100 Mg PO Q12HR Anaprox Ds (Naproxen Sodium) 550 Mg Tablet 550 Mg PO Q12HR Reported Hydrochlorothiazide Tablet (Hydrochlorothiazide) 12.5 Mg Tablet 12.5 Mg PO DAILY Shilpi Allergy (Fexofenadine Hcl) 180 Mg Tablet 1 Tab PO DAILY Vitals/I & O Vital Sign - Last 24 Hours 09/13/18 09/13/18 09/13/18 09/13/18 11:07 11:10 11:37 15:00 Temp 98.3 98.0 98.3 98.0 Pulse 77 80 87 Resp 18 16 B/P (MAP) 159/93 151/86 (107) 144/90 (108) Pulse Ox 97 93 O2 Delivery Nasal Cannula Nasal Cannula Nasal Cannula O2 Flow Rate 3.0 2.0 3.0 09/13/18 09/13/18 09/13/18 09/13/18 15:17 19:25 19:51 20:00 Temp 98.2 98.2 Pulse 87 Resp 18 B/P (MAP) 155/93 (113) Pulse Ox 96 96 O2 Delivery Nasal Cannula Nasal Cannula Nasal Cannula Nasal Cannula O2 Flow Rate 2.0 3.0 2.0 2.0 09/13/18 09/13/18 09/14/18 09/14/18 22:14 23:16 03:27 06:24 Temp 99.0 98.4 99.0 98.4 Pulse 81 83 Resp 20 18 20 B/P (MAP) 165/90 (115) 149/95 (113) Pulse Ox 96 94 96 O2 Delivery Nasal Cannula Nasal Cannula Nasal Cannula Nasal Cannula O2 Flow Rate 2.0 3.0 3.0 2.0 09/14/18 07:05 Temp 98.7 98.7 Pulse 82 Resp 20 B/P (MAP) 160/91 (114) Pulse Ox 97 O2 Delivery Nasal Cannula O2 Flow Rate 3.0 Intake and Output 09/13/18 09/13/18 09/14/18 14:59 22:59 06:59 Intake Total 0 ml 100 ml 0 ml Output Total 75 ml 50 ml 50 ml Balance -75 ml 50 ml -50 ml MARBIN GARCIA MD Sep 14, 2018 09:00
[2018-09-14] MEDS ORDERED: LIDOCAINE WITH 8.4% SOD BICARB 3 ML DISP.SYRIN. INJ ONE (09:15)
--- NOTE | 2018-09-14 09:35 | PN ---
DATE: 09/13/2018 CHIEF COMPLAINT: Tick-borne illness; sepsis; fungemia; severe metabolic encephalopathy; acute renal failure, now on dialysis and resolving respiratory failure, he was on the ventilator. SUBJECTIVE: The patient is without complaints today. He is quiet. He has his NG replaced. His is present. OBJECTIVE: I saw and examined the patient. His heart tones were relatively normal. His lungs were mostly clear. He had pulled . SUBJECTIVE: The patient is without complaints today. He is lying comfortably in his bed. His is present. OBJECTIVE: HEART: Tones were normal. LUNGS: Clear, but somewhat diminished. HEENT: He has got an NG in place. EXTREMITIES: Trace edema. PSYCHIATRIC: He seems depressed. ASSESSMENT: Tick-borne illness with sepsis and fungemia and acute renal failure, he is on dialysis. PLAN: We will continue dialysis. Continue antibiotics per Infectious Disease. Recheck his labs. DVT prophylaxis. Home meds. Full code. TOTAL TIME: 33 minutes. MARIAM BOGGS DO DR: BECKIE/haleigh JOB#: [id number] / [id number]
--- NOTE | 2018-09-14 10:03 | PDOC ---
Subjective: Subjective: Mouth is dry. Objective: Objective: Reviewed w/ RN - dialysis cath to be placed today, then plans to transfer to [facility]. Vital Signs: Vital Signs Date Time Temp Pulse Resp B/P (MAP) Pulse Ox O2 Delivery O2 Flow Rate FiO2 09/14/18 07:05 98.7 82 20 160/91 (114) 97 Nasal Cannula 3.0 98.7 Labs: Laboratory Tests Test 09/14/18 04:00 White Blood Count 9.1 x10^3/uL Red Blood Count 2.79 x10^6/uL Hemoglobin 8.5 g/dL Hematocrit 24.8 % Mean Corpuscular Volume 89 fL Mean Corpuscular Hemoglobin 30 pg Mean Corpuscular Hemoglobin Concent 34 g/dL Red Cell Distribution Width 20.6 % Platelet Count 359 x10^3/uL Neutrophils (%) (Auto) 59 % Lymphocytes (%) (Auto) 24 % Monocytes (%) (Auto) 11 % Eosinophils (%) (Auto) 5 % Basophils (%) (Auto) 1 % Neutrophils # (Auto) 5.4 x10^3uL Lymphocytes # (Auto) 2.2 x10^3/uL Monocytes # (Auto) 1.0 x10^3/uL Eosinophils # (Auto) 0.4 x10^3/uL Basophils # (Auto) 0.1 x10^3/uL PE: GEN: NAD HEENT: NGT LUNGS: NC ABD: S/NT, some distention (stable) NEURO/PSYCH: awake and alert, flat, doesn't offer much A/P: MOSF, dysphagia -- DC per primary, continue [employer]LL[employer] follow-up. ELVIA NOE Sep 14, 2018 10:03
[2018-09-14] MEDS ORDERED: IV NORMAL SALINE 1000ML BAG 1,000 ML IV PRN ×2 (10:06)
[2018-09-14] MEDS ORDERED: DIALYSIS PATIENT. MC PRN ×2 (10:15)
[2018-09-14] MEDS ORDERED: ALBUMIN HUMAN 25% 200 ML IV PRN (10:15)
--- NOTE | 2018-09-14 10:41 | NUR ---
Pt received dialysis catheter this morning and now has gone to dialysis per bed.
--- NOTE | 2018-09-14 10:56 | NUR ---
CARISSA following pt. SW faxed updates to [facility] but [facility] currently does not have a bed. Pt has temp cath placed today and currently in HD. EMS form already faxed to [facility] and CARISSA will arrange transport once a bed opens at [facility]. Discussed with MU.
--- NOTE | 2018-09-14 11:07 | PDOC ---
PULMONARY PROGRESS NOTES Subjective PT NOT MORE SOA NG TUBE IN PLACE Vitals Vital Signs Date Time Temp Pulse Resp B/P (MAP) Pulse Ox O2 Delivery O2 Flow Rate FiO2 09/14/18 07:05 98.7 82 20 160/91 (114) 97 Nasal Cannula 3.0 98.7 General: Alert, No acute distress Lungs: Clear Cardiovascular: S1, S2 Abdomen: Soft, Non-tender, Other (no mass) Extremities: Other (1+edema) Skin: Warm Labs Laboratory Tests Test 09/13/18 10:00 09/14/18 04:00 White Blood Count 7.8 x10^3/uL (4.0-11.0) 9.1 x10^3/uL (4.0-11.0) Red Blood Count 2.74 x10^6/uL (4.30-5.70) 2.79 x10^6/uL (4.30-5.70) Hemoglobin 8.3 g/dL (13.0-17.5) 8.5 g/dL (13.0-17.5) Hematocrit 24.3 % (39.0-53.0) 24.8 % (39.0-53.0) Mean Corpuscular Volume 89 fL (79-100) 89 fL (79-100) Mean Corpuscular Hemoglobin 30 pg (25-35) 30 pg (25-35) Mean Corpuscular Hemoglobin Concent 34 g/dL (31-37) 34 g/dL (31-37) Red Cell Distribution Width 20.4 % (11.5-14.5) 20.6 % (11.5-14.5) Platelet Count 356 x10^3/uL (140-400) 359 x10^3/uL (140-400) Neutrophils (%) (Auto) 49 % (31-73) 59 % (31-73) Lymphocytes (%) (Auto) 33 % (24-48) 24 % (24-48) Monocytes (%) (Auto) 13 % (0-9) 11 % (0-9) Eosinophils (%) (Auto) 4 % (0-3) 5 % (0-3) Basophils (%) (Auto) 2 % (0-3) 1 % (0-3) Neutrophils # (Auto) 3.8 x10^3uL (1.8-7.7) 5.4 x10^3uL (1.8-7.7) Lymphocytes # (Auto) 2.5 x10^3/uL (1.0-4.8) 2.2 x10^3/uL (1.0-4.8) Monocytes # (Auto) 1.0 x10^3/uL (0.0-1.1) 1.0 x10^3/uL (0.0-1.1) Eosinophils # (Auto) 0.3 x10^3/uL (0.0-0.7) 0.4 x10^3/uL (0.0-0.7) Basophils # (Auto) 0.1 x10^3/uL (0.0-0.2) 0.1 x10^3/uL (0.0-0.2) Sodium Level 138 mmol/L (136-145) Potassium Level 4.9 mmol/L (3.5-5.1) Chloride Level 97 mmol/L (98-107) Carbon Dioxide Level 27 mmol/L (21-32) Anion Gap 14 (6-14) Blood Urea Nitrogen 52 mg/dL (8-26) Creatinine 7.2 mg/dL (0.7-1.3) Estimated GFR (Cockcroft-Gault) 8.0 Glucose Level 92 mg/dL (70-99) Calcium Level 9.0 mg/dL (8.5-10.1) Ammonia < 10 mcmol/L (11-34) Laboratory Tests Test 09/14/18 04:00 White Blood Count 9.1 x10^3/uL (4.0-11.0) Red Blood Count 2.79 x10^6/uL (4.30-5.70) Hemoglobin 8.5 g/dL (13.0-17.5) Hematocrit 24.8 % (39.0-53.0) Mean Corpuscular Volume 89 fL (79-100) Mean Corpuscular Hemoglobin 30 pg (25-35) Mean Corpuscular Hemoglobin Concent 34 g/dL (31-37) Red Cell Distribution Width 20.6 % (11.5-14.5) Platelet Count 359 x10^3/uL (140-400) Neutrophils (%) (Auto) 59 % (31-73) Lymphocytes (%) (Auto) 24 % (24-48) Monocytes (%) (Auto) 11 % (0-9) Eosinophils (%) (Auto) 5 % (0-3) Basophils (%) (Auto) 1 % (0-3) Neutrophils # (Auto) 5.4 x10^3uL (1.8-7.7) Lymphocytes # (Auto) 2.2 x10^3/uL (1.0-4.8) Monocytes # (Auto) 1.0 x10^3/uL (0.0-1.1) Eosinophils # (Auto) 0.4 x10^3/uL (0.0-0.7) Basophils # (Auto) 0.1 x10^3/uL (0.0-0.2) Medications Active Scripts Medications Dose Route/Sig Max Daily Dose Days Date Category Prednisone 20 Mg Tablet 1 Tab PO DAILY 08/26/18 Reported Hydrochlorothiazide Tablet (Hydrochlorothiazide) 12.5 Mg Tablet 12.5 Mg PO DAILY 08/26/18 Reported Shilpi Allergy (Fexofenadine Hcl) 180 Mg Tablet 1 Tab PO DAILY 08/26/18 Reported Potassium Chloride 20 Meq Tablet.er 20 Meq PO DAILY 08/24/18 Rx Orphenadrine Citrate 100 Mg Tablet.er 100 Mg PO Q12HR 02/03/16 Rx Anaprox Ds (Naproxen Sodium) 550 Mg Tablet 550 Mg PO Q12HR 02/03/16 Rx Impression . IMPRESSION: 1. Acute hypoxemic respiratory failure, multifactorial due to encephalopathy from suspected DIRECTOR OF BILLING infection/ acute lung injury from recent infection. EXTUBATED 09/08 2. 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 Fever. RESOLVED 4. Lactic acidosis. 5. Acute renal failure. 6. Acute hepatic injury. 7. Thrombocytopenia, improving. 8. Hemochromatosis. 9. ACUTE TOXIC MET ENCEPH POA 10 DYSPHAGIA 11.ENCEPHALITIS 12. FUNGEMIA 13. ANEMIA Plan . OK OT D/C TO [facility] FOLLOW SPEECH INPUT ANISH DENNIS MD Sep 14, 2018 11:07
--- NOTE | 2018-09-14 12:05 | PDOC ---
Infectious Disease Note Subjective Subjective States he is doing well but admits to being confused at times. Brian any F/C/S/DIAL/SOA/N Feels ok Vital Sign Vital Signs Vital Signs Date Time Temp Pulse Resp B/P (MAP) Pulse Ox O2 Delivery O2 Flow Rate FiO2 09/14/18 08:00 Nasal Cannula 3.0 09/14/18 07:05 98.7 82 20 160/91 (114) 97 98.7 Physical Exam PHYSICAL EXAM GENERAL: Awake, calm, NAD - looks well -coop. in HD HEENT: Pupils equal, oral cavity dry - NGT NECK: Supple. LUNGS: Clear anteriorly HEART: S1 and S2. regular ABDOMEN: + distention but less, : Waters in place EXTREMITIES: No gross edema, no cyanosis. NEUROLOGIC: Awake, and alert looks really well PIV. clean/HD cath clean Labs Lab Laboratory Tests Test 09/14/18 04:00 White Blood Count 9.1 x10^3/uL (4.0-11.0) Red Blood Count 2.79 x10^6/uL (4.30-5.70) Hemoglobin 8.5 g/dL (13.0-17.5) Hematocrit 24.8 % (39.0-53.0) Mean Corpuscular Volume 89 fL (79-100) Mean Corpuscular Hemoglobin 30 pg (25-35) Mean Corpuscular Hemoglobin Concent 34 g/dL (31-37) Red Cell Distribution Width 20.6 % (11.5-14.5) Platelet Count 359 x10^3/uL (140-400) Neutrophils (%) (Auto) 59 % (31-73) Lymphocytes (%) (Auto) 24 % (24-48) Monocytes (%) (Auto) 11 % (0-9) Eosinophils (%) (Auto) 5 % (0-3) Basophils (%) (Auto) 1 % (0-3) Neutrophils # (Auto) 5.4 x10^3uL (1.8-7.7) Lymphocytes # (Auto) 2.2 x10^3/uL (1.0-4.8) Monocytes # (Auto) 1.0 x10^3/uL (0.0-1.1) Eosinophils # (Auto) 0.4 x10^3/uL (0.0-0.7) Basophils # (Auto) 0.1 x10^3/uL (0.0-0.2) Micro Microbiology 09/08/18 Blood Culture - Preliminary, Resulted NO GROWTH AFTER 2 DAYS 08/29/18 CSF Gram Stain - Final, Complete 08/27/18 Stool Culture - Final, Complete 08/27/18 Stool Culture Result 1 (LOTUS) - Final, Complete 08/27/18 Campylobacter Antigen Assay - Final, Complete 08/27/18 Campylobactor Result 1 - Final, Complete 08/27/18 Shiga Toxin Test - Final, Complete 09/05/18 - Final, Complete 09/05/18 - Final, Complete 09/05/18 - Final, Complete 09/05/18 Gram Stain Evaluation - Final, Complete 09/05/18 Sputum Culture - Final, Complete 09/05/18 Sputum Result 1 - Final, Complete 09/04/18 Urine Culture - Final, Complete 09/04/18 Urine Culture Result 1 (LOTUS) - Final, Complete Objective Assessment Fever - times one 09/11 - much better Fungemia from 09/04 04/11 bottles. ID/LOTUS pending; repeat BC 09/08 neg so far still no ID -Lines have been removed Diarrhea, C. diff PCR neg Leukocytosis - ? 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 MRI neg - Pulled out NGT and HD cath 09/12 -CSF pleocytosis, cultures and serologies negative - HIV neg -[place] IgG +, IgM neg, old exposure -HSV PCR neg -Arboviral panel not available -Enteroviral pcr not available RADHA (Recent Bactrim/ibuprofen), on HD Anemia - s/p PRBCs 09/10 - Parvo - neg Hemochromatosis, followed by [facility] Plan Plan of Care Dosed Dapto and Cefepime 09/11 with fever - redosed Dapto 09/13 will hold further dosing S/p HD cath 09/10 - pulled out 09/12 - NGT replaced. HD cath replaced Cont micafungin await yeast ID from 09/04 - no ID yet Repeat BC 09/08 and 09/11 neg so far Monitor labs/temp Supportive care To [facility] D/w Dr. Cespedes. LICO GRACE MD Sep 14, 2018 12:05
--- NOTE | 2018-09-14 12:48 | PDOC ---
SUBJECTIVE ROS Intermittently confused OBJECTIVE Vital Signs Vital Signs Date Time Temp Pulse Resp B/P (MAP) Pulse Ox O2 Delivery O2 Flow Rate FiO2 09/14/18 08:00 Nasal Cannula 3.0 09/14/18 07:05 98.7 82 20 160/91 (114) 97 98.7 I & 0 Intake and Output 09/14/18 07:00 Intake Total 100 ml Output Total 175 ml Balance -75 ml Intake Oral 0 ml Tube Feeding 100 ml Output Urine Total 175 ml # Bowel Movements 2 PHYSICAL EXAM Physical Exam GENERAL: Awake, On o2, HEENT: On O2 by NC NECK: Supple. LUNGS: Clear anteriorly HEART: S1 and S2. regular ABDOMEN: soft, : Waters in place EXTREMITIES: no edema SKIN: Warm NEUROLOGIC: Confused DIAGNOSIS/ASSESSMENT Assessment & Plan RADHA/ATN- Requiring HD , currently on MWF Temp Dialysis cath was replaced on 09/10 , Pt pulled it out yesterday New Temp cath replaced today (09/14 ) will need Perm Dialysis cath prior to dc when approved by ID Monitoring for renal recovery Fungemia from 09/04.] repeat BC 09/08 neg so far 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 negative for ehrlichia -RMSF neg, Encephalopathy waxing and waning etiology unclear MRI neg Anemia - Hg stable On JANINA s/p PRBCs 09/10 - Parvo - neg Hemochromatosis, followed by [facility] COMMENT/RELEVANT DATA Meds Current Medications Medications (Trade) Dose Ordered Sig/Noemi Start Time Stop Time Status Last Admin Dose Admin Acetaminophen (Tylenol Supp) 650 mg PRN Q6HRS PRN 08/27/18 21:15 09/02/18 01:18 650 MG Acetaminophen (Tylenol) 650 mg PRN Q6HRS PRN 08/27/18 21:15 Acyclovir Sodium 340 mg/Dextrose 106.8 ml @ 106.8 mls/ hr Q12HR 08/30/18 09:00 09/01/18 13:37 DC 09/01/18 11:05 106.8 MLS/HR Albumin Human 200 ml @ 200 mls/hr 1X PRN PRN 09/14/18 10:15 09/14/18 16:14 Albuterol/ Ipratropium (Duoneb) 3 ml 1X ONCE 09/01/18 01:00 09/01/18 01:01 DC 09/01/18 01:10 3 ML Amlodipine Besylate (Norvasc) 2.5 mg DAILY 09/11/18 11:00 09/13/18 11:07 2.5 MG Atropine Sulfate (ATROPINE 0.5mg SYRINGE) 0.5 mg PRN Q5MIN PRN 09/06/18 11:00 Atropine Sulfate (ATROPINE 1mg SYRINGE) 1 mg STK-MED ONCE 08/31/18 22:58 08/31/18 22:59 DC Aztreonam (Azactam) 2 gm 1X ONCE 08/25/18 21:15 08/25/18 21:16 DC 08/25/18 21:15 2 GM Benzocaine (Hurricaine One) 1 spray 1X STAT 08/28/18 10:16 08/28/18 10:19 DC 08/28/18 10:16 1 SPRAY Cefepime HCl (Maxipime) 1 gm Q24H 09/11/18 11:00 09/13/18 10:57 1 GM Ceftriaxone Sodium (Rocephin) 1 gm 1X ONCE 08/25/18 20:30 08/25/18 20:31 DC 08/25/18 20:36 1 GM Chlorhexidine Gluconate (Peridex) 15 ml BID 09/01/18 09:00 09/08/18 08:04 DC 09/07/18 21:21 15 ML Daptomycin 610 mg/ Sodium Chloride 50 ml @ 100 mls/hr Q48H 08/30/18 16:00 08/30/18 16:00 DC Daptomycin 640 mg/ Sodium Chloride 50 ml @ 100 mls/hr ONCE ONCE 09/13/18 10:15 09/13/18 10:45 DC 09/13/18 11:03 100 MLS/HR Darbepoetin Phil (ARANESP for DIALYSIS PTS) 100 mcg WEEKLYHS 09/17/18 21:00 Darbepoetin Phil (Aranesp) 100 mcg WEEKLYHS 09/03/18 21:00 09/13/18 13:16 DC 09/10/18 21:35 100 MCG Dexmedetomidine HCl 200 mcg/ Sodium Chloride 50 ml @ 0 mls/hr CONT PRN 09/06/18 11:00 09/08/18 08:03 DC Diphenhydramine HCl (Benadryl) 25 mg 1X PRN PRN 09/10/18 13:30 09/11/18 13:29 DC Doxycycline Hyclate 100 mg/ Dextrose 100 ml @ 50 mls/hr Q12HR 08/26/18 09:00 09/04/18 08:11 DC 09/03/18 22:11 50 MLS/HR Epinephrine HCl (EPINEPHrine SYRINGE) 3 mg STK-MED ONCE 08/31/18 08:06 09/04/18 08:07 DC Famotidine (Pepcid Vial) 20 mg Q48H 09/03/18 21:00 09/13/18 21:04 20 MG Famotidine (Pepcid) 20 mg Q48H 08/29/18 09:00 08/29/18 11:29 DC Fentanyl Citrate (Fentanyl 2ml Vial) 25 mcg PRN Q2HR PRN 09/06/18 11:00 09/13/18 22:14 25 MCG Haloperidol (Haldol) 2 mg PRN QID PRN 08/31/18 08:00 08/31/18 12:43 DC Haloperidol Lactate (HALDOL 2mg ORAL CONC) 2 mg PRN QID PRN 08/31/18 12:43 Haloperidol Lactate (Haldol Inj) 5 mg PRN Q6HRS PRN 08/28/18 12:00 09/13/18 22:13 5 MG Heparin Sodium (Porcine) (Heparin Sodium) 2,500 unit 1X ONCE 09/14/18 09:15 09/14/18 09:16 DC 09/14/18 09:35 2,800 UNIT Ibuprofen (Motrin) 600 mg 1X ONCE 08/25/18 19:45 08/25/18 19:49 DC 08/25/18 20:38 600 MG Info (PHARMACY MONITORING -- do not chart) 1 each PRN DAILY PRN 09/14/18 10:15 Info (Tpn Per Pharmacy) 1 each PRN DAILY PRN 08/30/18 12:45 09/04/18 12:50 DC 09/03/18 10:53 1 EACH Lactobacillus Rhamnosus (Culturelle) 1 cap BID 08/26/18 21:00 09/08/18 10:55 DC 09/08/18 09:34 1 CAP Levofloxacin/ Dextrose 150 ml @ 100 mls/hr QODAY 09/04/18 09:00 09/07/18 07:52 DC 09/06/18 10:28 100 MLS/HR Lidocaine HCl (Glydo (Lidocaine) Jelly) 1 meng 1X STAT 08/28/18 10:16 08/28/18 10:19 DC 08/28/18 10:16 1 MENG Lidocaine/Sodium Bicarbonate (Buffered Lidocaine 1%) 3 ml 1X ONCE 09/14/18 09:15 09/14/18 09:16 DC 09/14/18 09:34 6 ML Linezolid/Dextrose 300 ml @ 300 mls/hr Q12HR 09/05/18 09:30 09/10/18 07:34 DC 09/09/18 21:21 300 MLS/HR Magnesium Sulfate 50 ml @ 25 mls/hr 1X ONCE 08/25/18 21:15 08/25/18 23:14 DC 08/25/18 23:51 25 MLS/HR Meropenem 500 mg/ Sodium Chloride 50 ml @ 100 mls/hr DAILY 08/26/18 09:00 08/30/18 08:17 DC 08/29/18 10:13 100 MLS/HR Micafungin Sodium 100 mg/Dextrose 100 ml @ 100 mls/hr Q24H 09/07/18 08:30 09/13/18 09:38 100 MLS/HR Midazolam HCl 100 ml @ 0 mls/hr CONT PRN 09/01/18 00:00 09/08/18 11:30 DC Norepinephrine Bitartrate 250 ml @ 0 mls/hr CONT PRN 08/26/18 09:15 08/30/18 17:20 DC 08/27/18 10:21 1.88 MLS/HR Ondansetron HCl (Zofran) 4 mg PRN Q6HRS PRN 08/31/18 08:00 Piperacillin Sod/ Tazobactam Sod 2.25 gm/Sodium Chloride 50 ml @ 100 mls/hr Q6HRS 09/01/18 14:00 09/11/18 09:29 DC 09/11/18 05:19 100 MLS/HR Piperacillin Sod/ Tazobactam Sod 4.5 gm/Sodium Chloride 100 ml @ 200 mls/hr 1X ONCE 08/25/18 21:15 08/25/18 21:44 DC Propofol 100 ml @ 0 mls/hr CONT PRN 09/01/18 00:00 09/06/18 10:59 DC 09/06/18 08:14 6.135 MLS/HR Sodium Bicarbonate (Sodium Bicarb Adult 8.4% Syr) 100 meq STK-MED ONCE 08/31/18 08:06 09/04/18 08:07 DC Sodium Chloride 1,000 ml @ 400 mls/hr Q2H30M PRN 09/14/18 10:06 09/14/18 22:05 Sodium Chloride (Normal Saline Flush) 10 ml 1X PRN PRN 09/05/18 09:00 09/06/18 08:59 DC Sodium Chloride 90 meq/Potassium Chloride 50 meq/ Potassium Phosphate 10 mmol/ Calcium Gluconate 10 meq/ Multivitamins 10 ml/Chromium/ Copper/Manganese/ Seleni/Zn 1 ml/ Total Parenteral Nutrition/Amino Acids/Dextrose 1,512 ml @ 63 mls/hr TPN CONT 09/01/18 22:00 09/02/18 21:59 DC 09/01/18 22:11 63 MLS/HR Sodium Chloride 90 meq/Potassium Chloride 50 meq/ Potassium Phosphate 3 mmol/ Magnesium Sulfate 10 meq/Calcium Gluconate 10 meq/ Multivitamins 10 ml/Chromium/ Copper/Manganese/ Seleni/Zn 1 ml/ Total Parenteral Nutrition/Amino Acids/Dextrose/ Fat Emulsion Intravenous 1,512 ml @ 63 mls/hr TPN CONT 08/30/18 22:00 08/31/18 21:59 DC 08/30/18 21:40 63 MLS/HR Sodium Chloride 90 meq/Potassium Chloride 50 meq/ Potassium Phosphate 5 mmol/ Magnesium Sulfate 3 meq/Calcium Gluconate 10 meq/ Multivitamins 10 ml/Chromium/ Copper/Manganese/ Seleni/Zn 1 ml/ Total Parenteral Nutrition/Amino Acids/Dextrose 1,512 ml @ 63 mls/hr TPN CONT 08/31/18 22:00 09/01/18 21:59 DC 08/31/18 20:59 63 MLS/HR Sodium Chloride 110 meq/Potassium Chloride 50 meq/ Potassium Phosphate 10 mmol/ Calcium Gluconate 10 meq/ Multivitamins 10 ml/Chromium/ Copper/Manganese/ Seleni/Zn 1 ml/ Magnesium Sulfate 3 meq/Total Parenteral Nutrition/Amino Acids/Dextrose 1,512 ml @ 63 mls/hr TPN CONT 09/02/18 22:00 09/03/18 21:59 DC 09/02/18 22:13 63 MLS/HR Sodium Chloride 130 meq/Potassium Acetate 20 meq/ Calcium Gluconate 10 meq/ Multivitamins 10 ml/Chromium/ Copper/Manganese/ Seleni/Zn 1 ml/ Magnesium Sulfate 3 meq/Total Parenteral Nutrition/Amino Acids/Dextrose 1,512 ml @ 63 mls/hr TPN CONT 09/03/18 22:00 09/04/18 21:59 DC 09/03/18 22:12 63 MLS/HR Succinylcholine Chloride (Anectine) 200 mg 1X ONCE 09/01/18 01:15 09/01/18 01:16 DC 08/31/18 23:04 200 MG Vancomycin HCl 2 gm/Sodium Chloride 500 ml @ 250 mls/hr 1X ONCE 08/25/18 21:30 08/25/18 23:29 DC 08/25/18 23:10 250 MLS/HR Lab Laboratory Tests Test 09/14/18 04:00 White Blood Count 9.1 x10^3/uL (4.0-11.0) Red Blood Count 2.79 x10^6/uL (4.30-5.70) Hemoglobin 8.5 g/dL (13.0-17.5) Hematocrit 24.8 % (39.0-53.0) Mean Corpuscular Volume 89 fL (79-100) Mean Corpuscular Hemoglobin 30 pg (25-35) Mean Corpuscular Hemoglobin Concent 34 g/dL (31-37) Red Cell Distribution Width 20.6 % (11.5-14.5) Platelet Count 359 x10^3/uL (140-400) Neutrophils (%) (Auto) 59 % (31-73) Lymphocytes (%) (Auto) 24 % (24-48) Monocytes (%) (Auto) 11 % (0-9) Eosinophils (%) (Auto) 5 % (0-3) Basophils (%) (Auto) 1 % (0-3) Neutrophils # (Auto) 5.4 x10^3uL (1.8-7.7) Lymphocytes # (Auto) 2.2 x10^3/uL (1.0-4.8) Monocytes # (Auto) 1.0 x10^3/uL (0.0-1.1) Eosinophils # (Auto) 0.4 x10^3/uL (0.0-0.7) Basophils # (Auto) 0.1 x10^3/uL (0.0-0.2) Results All relevant outside records, renal labs, imaging studies, telemetry/EKG's were reviewed. OG CHAVES MD Sep 14, 2018 12:48
--- NOTE | 2018-09-14 14:00 | PDOC3 ---
Discharge Summary Visit Information Date of Admission: August 26, 2018 Date of Discharge: Sep 14, 2018 Admitting Diagnosis Comment: 1. Acute hypoxemic respiratory failure, multifactorial due to encephalopathy from suspected [employer] infection/ acute lung injury from recent infection. EXTUBATED 09/08 2. 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 Fever. RESOLVED 4. Lactic acidosis. 5. Acute renal failure. 6. Acute hepatic injury. 7. Thrombocytopenia, improving. 8. Hemochromatosis. 9. ACUTE TOXIC MET ENCEPH POA 10 DYSPHAGIA 11.ENCEPHALITIS 12. FUNGEMIA 13. ANEMIA Final Diagnosis Problems Medical Problems: (1) Acute renal failure Status: Acute Brief Hospital Course Allergies Allergies Coded Allergies Type Severity Reaction Last Updated Verified aspirin Allergy Intermediate 02/03/16 Yes pentazocine Allergy Intermediate 02/03/16 Yes Vital Signs Vital Signs Date Time Temp Pulse Resp B/P (MAP) Pulse Ox O2 Delivery O2 Flow Rate FiO2 09/14/18 08:00 Nasal Cannula 3.0 09/14/18 07:05 98.7 82 20 160/91 (114) 97 98.7 Lab Results Laboratory Tests Test 09/13/18 10:00 09/14/18 04:00 White Blood Count 7.8 x10^3/uL (4.0-11.0) 9.1 x10^3/uL (4.0-11.0) Red Blood Count 2.74 x10^6/uL (4.30-5.70) 2.79 x10^6/uL (4.30-5.70) Hemoglobin 8.3 g/dL (13.0-17.5) 8.5 g/dL (13.0-17.5) Hematocrit 24.3 % (39.0-53.0) 24.8 % (39.0-53.0) Mean Corpuscular Volume 89 fL (79-100) 89 fL (79-100) Mean Corpuscular Hemoglobin 30 pg (25-35) 30 pg (25-35) Mean Corpuscular Hemoglobin Concent 34 g/dL (31-37) 34 g/dL (31-37) Red Cell Distribution Width 20.4 % (11.5-14.5) 20.6 % (11.5-14.5) Platelet Count 356 x10^3/uL (140-400) 359 x10^3/uL (140-400) Neutrophils (%) (Auto) 49 % (31-73) 59 % (31-73) Lymphocytes (%) (Auto) 33 % (24-48) 24 % (24-48) Monocytes (%) (Auto) 13 % (0-9) 11 % (0-9) Eosinophils (%) (Auto) 4 % (0-3) 5 % (0-3) Basophils (%) (Auto) 2 % (0-3) 1 % (0-3) Neutrophils # (Auto) 3.8 x10^3uL (1.8-7.7) 5.4 x10^3uL (1.8-7.7) Lymphocytes # (Auto) 2.5 x10^3/uL (1.0-4.8) 2.2 x10^3/uL (1.0-4.8) Monocytes # (Auto) 1.0 x10^3/uL (0.0-1.1) 1.0 x10^3/uL (0.0-1.1) Eosinophils # (Auto) 0.3 x10^3/uL (0.0-0.7) 0.4 x10^3/uL (0.0-0.7) Basophils # (Auto) 0.1 x10^3/uL (0.0-0.2) 0.1 x10^3/uL (0.0-0.2) Sodium Level 138 mmol/L (136-145) Potassium Level 4.9 mmol/L (3.5-5.1) Chloride Level 97 mmol/L (98-107) Carbon Dioxide Level 27 mmol/L (21-32) Anion Gap 14 (6-14) Blood Urea Nitrogen 52 mg/dL (8-26) Creatinine 7.2 mg/dL (0.7-1.3) Estimated GFR (Cockcroft-Gault) 8.0 Glucose Level 92 mg/dL (70-99) Calcium Level 9.0 mg/dL (8.5-10.1) Ammonia < 10 mcmol/L (11-34) Laboratory Tests Test 09/14/18 04:00 White Blood Count 9.1 x10^3/uL (4.0-11.0) Red Blood Count 2.79 x10^6/uL (4.30-5.70) Hemoglobin 8.5 g/dL (13.0-17.5) Hematocrit 24.8 % (39.0-53.0) Mean Corpuscular Volume 89 fL (79-100) Mean Corpuscular Hemoglobin 30 pg (25-35) Mean Corpuscular Hemoglobin Concent 34 g/dL (31-37) Red Cell Distribution Width 20.6 % (11.5-14.5) Platelet Count 359 x10^3/uL (140-400) Neutrophils (%) (Auto) 59 % (31-73) Lymphocytes (%) (Auto) 24 % (24-48) Monocytes (%) (Auto) 11 % (0-9) Eosinophils (%) (Auto) 5 % (0-3) Basophils (%) (Auto) 1 % (0-3) Neutrophils # (Auto) 5.4 x10^3uL (1.8-7.7) Lymphocytes # (Auto) 2.2 x10^3/uL (1.0-4.8) Monocytes # (Auto) 1.0 x10^3/uL (0.0-1.1) Eosinophils # (Auto) 0.4 x10^3/uL (0.0-0.7) Basophils # (Auto) 0.1 x10^3/uL (0.0-0.2) Brief Hospital Course I am taking care of the patient today- day 1 - on day of discharge to LTAC after 20 day stay here. New dialysis, has a temporary dialysis catheter and is seen during dialysis. HAs an NGT He was admitted at [facility] on August [facility], 2018 for septic shock, thrombocytopenia, elevated LFTs ,ICU stay, needed multiple subspecialties. Please refer to my above final diagnosis as this will give an idea of how his course was. He was extubated 2018. At least O nothing by mouth and his NG tube via tube feeds. He will need PT OT STAVE JOINTER, and now new dialysis. Med list has been reconciled, full code. Duration 20 days Discharge disposition LTAC Discharge Information Condition at Discharge: Improved, Stable Disposition/Orders: Other (LTAC) Scheduled Daptomycin (Daptomycin) 350 Mg Vial, 640 MG IV DAILY for sepsis for 14 Days, #26 Prescribed by: ESTHER AMANDA on 09/11/18 1122 Fexofenadine Hcl (Shilpi Allergy) 180 Mg Tablet, 1 TAB PO DAILY for allergies, #30 Ref 2 (Reported) Entered as Reported by: HYACINTH ZAPIEN on 08/26/18318 Last Taken: Unknown Dose on Unknown Date & Time Last Action: New Order on 08/26/18318 by HYACINTH ZAPIEN Hydrochlorothiazide (Hydrochlorothiazide Tablet) 12.5 Mg Tablet, 12.5 MG PO DAILY for DIURETIC, Ref 0 (Reported) Entered as Reported by: HYACINTH ZAPIEN on 08/26/18318 Last Taken: Unknown Dose on Unknown Date & Time Last Action: New Order on 08/26/18318 by HYACINTH ZAPIEN Micafungin Sodium (Mycamine) 100 Mg Vial, 100 MG IV DAILY for sepsis for 10 Days, #10 Prescribed by: ESTHER AMANDA on 09/11/18 1123 Naproxen Sodium (Anaprox Ds) 550 Mg Tablet, 550 MG PO Q12HR, #20 Prescribed by: JASON CERVANTES on 02/03/16 1219 Orphenadrine Citrate (Orphenadrine Citrate) 100 Mg Tablet.er, 100 MG PO Q12HR, #14 Prescribed by: JASON CERVANTES on 02/03/16 1219 Potassium Chloride (Potassium Chloride) 20 Meq Tablet.er, 20 MEQ PO DAILY, #4 Prescribed by: MICKEY MANCUSO on 08/24/18 0607 [Cefepime Hcl] 1 GM VIAL, 1 GM IVP Q24H for 14 Days, #14 Prescribed by: ESTHER AMANDA on 09/11/18 1122 Discontinued Medications Prednisone (Prednisone) 20 Mg Tablet, 1 TAB PO DAILY for , #5 (Reported) Entered as Reported by: HYACINTH ZAPIEN on 08/26/18318 Last Taken: Unknown Dose on Unknown Date & Time Last Action: New Order on 08/26/18318 by ERA MEJIA MD Sep 14, 2018 14:00
--- NOTE | 2018-09-14 14:00 | NUR ---
SW following pt. SW arranged transportation via [facility] at 1930. Pt aware of plans and SW left a voice mail to pt's regarding dc plan. Discussed with RN and Packets on chart.
[2018-09-14 15:00] VITALS: BP 166/95
--- NOTE | 2018-09-14 16:47 | RAD ---
Procedure: Temporary hemodialysis catheter placement under fluoroscopy Clinical Indication: 52-year-old requiring hemodialysis. Sedation: Local anesthesia only. Antibiotics: None Fluoro Time: 0.4 minutes. Images: 1 Contrast: None Sterility: All elements of maximal sterile barrier technique including the use of a cap, mask, sterile gown, sterile gloves, large sterile sheet, appropriate hand hygiene, and 2% chlorhexidine for cutaneous antisepsis (or acceptable alternative antiseptic per current guidelines) were followed for this procedure. Consent: The procedure was explained in its entirety to the patient or the patients designated sales donor recruitment representative by a member of the treatment team, including a discussion of the risks, benefits and commonly accepted alternatives to the procedure, as well as the expected consequences of no therapy whatsoever. Discussion of the risks included, but was not limited to, those that are most frequent and those that are rare but possibly severe or life-threatening, as well as the possibility of unforeseen complications. Technique and Findings: Following informed consent, the patient was prepped and draped in the usual sterile fashion. Ultrasound interrogation of the left neck revealed patency and compressibility of the left internal jugular vein. A 21-gauge micropuncture needle was used to gain access to this vein after 1% Lidocaine was used to achieve local anesthesia. A hardcopy ultrasound image was recorded. The needle was exchanged over a wire for serial dilators followed by a 24 cm Schon temporary hemodialysis catheter which was deployed under fluoroscopic guidance such that the distal tip resided in the mid right atrium. The catheter flow rates were assessed manually and found to be excellent. The catheter was then flushed, packed with Heparin, capped, and sutured to the skin. Complications: No immediate Impression: 1. Ultrasound and fluoroscopic guided placement of a temporary hemodialysis catheter which exhibits excellent manual flow rates as described.
--- NOTE | 2018-09-14 17:58 | NUR ---
Pt scheduled to transfer to [facility] at 1930. Report called to Caryn at facility.
[2018-09-14 19:57] VITALS: BP 159/98
[2018-09-17] MEDS ORDERED: DARBEPOETIN ALFA 100 MCG/0.5 ML DISP.SYRIN. SQ SCH (21:00)
== END 2018-09-14 20:30 | DRG 870 ==
LOC: ER 18:42 → 1 WEST ICU 21:00 → 6 SOUTH 08-30 17:17 → 1 WEST ICU 08-31 22:35 → 6 SOUTH 09-10 14:37
PROVIDERS: ADMIT Family Medicine; ATTEND Family Medicine
PROC: 5A1D70Z Performance of Urinary Filtration, Intermittent, Less than 6 Hours Per Day (ICD-10-PCS; 2018-08-26)
PROC: 05HY33Z Insertion of Infusion Device into Upper Vein, Percutaneous Approach (ICD-10-PCS; 2018-08-26)
PROC: B54MZZA Ultrasonography of Right Upper Extremity Veins, Guidance (ICD-10-PCS; 2018-08-26)
PROC: 5A1D70Z Performance of Urinary Filtration, Intermittent, Less than 6 Hours Per Day (ICD-10-PCS; 2018-08-27)
PROC: 5A09357 Assistance with Respiratory Ventilation, Less than 24 Consecutive Hours, Continuous Positive Airway Pressure (ICD-10-PCS; 2018-08-27)
PROC: 02HV33Z Insertion of Infusion Device into Superior Vena Cava, Percutaneous Approach (ICD-10-PCS; 2018-08-27)
PROC: B548ZZA Ultrasonography of Superior Vena Cava, Guidance (ICD-10-PCS; 2018-08-27)
PROC: 5A1D70Z Performance of Urinary Filtration, Intermittent, Less than 6 Hours Per Day (ICD-10-PCS; 2018-08-28)
PROC: 5A09357 Assistance with Respiratory Ventilation, Less than 24 Consecutive Hours, Continuous Positive Airway Pressure (ICD-10-PCS; 2018-08-28)
PROC: 009U3ZX Drainage of Spinal Canal, Percutaneous Approach, Diagnostic (ICD-10-PCS; 2018-08-29)
PROC: B01B1ZZ Fluoroscopy of Spinal Cord using Low Osmolar Contrast (ICD-10-PCS; 2018-08-29)
PROC: 5A1D70Z Performance of Urinary Filtration, Intermittent, Less than 6 Hours Per Day (ICD-10-PCS; 2018-08-30)
PROC: 5A1D70Z Performance of Urinary Filtration, Intermittent, Less than 6 Hours Per Day (ICD-10-PCS; 2018-09-01)
PROC: 5A1D70Z Performance of Urinary Filtration, Intermittent, Less than 6 Hours Per Day (ICD-10-PCS; 2018-09-03)
PROC: 5A1D70Z Performance of Urinary Filtration, Intermittent, Less than 6 Hours Per Day (ICD-10-PCS; 2018-09-06)
PROC: 5A1D70Z Performance of Urinary Filtration, Intermittent, Less than 6 Hours Per Day (ICD-10-PCS; 2018-09-07)
PROC: 5A1955Z Respiratory Ventilation, Greater than 96 Consecutive Hours (ICD-10-PCS; 2018-09-10)
PROC: 5A09357 Assistance with Respiratory Ventilation, Less than 24 Consecutive Hours, Continuous Positive Airway Pressure (ICD-10-PCS; 2018-09-10)
PROC: 02H633Z Insertion of Infusion Device into Right Atrium, Percutaneous Approach (ICD-10-PCS; 2018-09-10)
PROC: B244ZZZ Ultrasonography of Right Heart (ICD-10-PCS; 2018-09-10)
PROC: 5A1D70Z Performance of Urinary Filtration, Intermittent, Less than 6 Hours Per Day (ICD-10-PCS; 2018-09-10)
PROC: 0BH17EZ Insertion of Endotracheal Airway into Trachea, Via Natural or Artificial Opening (ICD-10-PCS; 2018-09-12)
PROC: 5A1D70Z Performance of Urinary Filtration, Intermittent, Less than 6 Hours Per Day (ICD-10-PCS; 2018-09-12)
PROC: 5A1D70Z Performance of Urinary Filtration, Intermittent, Less than 6 Hours Per Day (ICD-10-PCS; principal; 2018-09-14)
PROC: 5A1D70Z Performance of Urinary Filtration, Intermittent, Less than 6 Hours Per Day (ICD-10-PCS; 2018-09-14)
PROC: 02H633Z Insertion of Infusion Device into Right Atrium, Percutaneous Approach (ICD-10-PCS; 2018-09-14)
PROC: B2141ZZ Fluoroscopy of Right Heart using Low Osmolar Contrast (ICD-10-PCS; 2018-09-14)
PROC: B244ZZZ Ultrasonography of Right Heart (ICD-10-PCS; 2018-09-14)
DX: A41.9 Sepsis, unspecified organism (principal); J96.01 Acute respiratory failure with hypoxia; N17.0 Acute kidney failure with tubular necrosis; R65.21 Severe sepsis with septic shock; G04.90 Encephalitis and encephalomyelitis, unspecified; G92 Toxic encephalopathy; A93.8 Other specified arthropod-borne viral fevers; B49 Unspecified mycosis; E87.1 Hypo-osmolality and hyponatremia; J98.11 Atelectasis; L03.116 Cellulitis of left lower limb; D64.9 Anemia, unspecified; D69.59 Other secondary thrombocytopenia; E66.01 Morbid (severe) obesity due to excess calories; E83.119 Hemochromatosis, unspecified; E83.42 Hypomagnesemia; E86.0 Dehydration; E87.5 Hyperkalemia; G47.33 Obstructive sleep apnea (adult) (pediatric); I10 Essential (primary) hypertension; K76.0 Fatty (change of) liver, not elsewhere classified; L23.7 Allergic contact dermatitis due to plants, except food; R13.12 Dysphagia, oropharyngeal phase; W57.XXXA Bitten or stung by nonvenomous insect and other nonvenomous arthropods, initial encounter; Z68.34 Body mass index [BMI] 34.0-34.9, adult; Z80.8 Family history of malignant neoplasm of other organs or systems; Z82.49 Family history of ischemic heart disease and other diseases of the circulatory system; Z99.2 Dependence on renal dialysis; Z88.8 Allergy status to other drugs, medicaments and biological substances
CPT/HCPCS: 36415; 36556; 36569; 36600; 51798; 62270; 70450; 70551; 71045; 71046; 71250; 74018; 74176; 76700; 76937; 77001; 80048; 80053; 80069; 80076; 80307; 81001; 82140; 82248; 82274; 82310; 82550; 82553; 82805; 82945; 82962; 83010; 83605; 83615; 83690; 83735; 84100; 84145; 84157; 84443; 84478; 84484; 85007; 85025; 85027; 85045; 85049; 85379; 85384; 85610; 85651; 85730; 86000; 86140; 86308; 86592; 86617; 86618; 86666; 86703; 86705; 86706; 86709; 86747; 86757; 86788; 86789; 86803; 86850; 86880; 86900; 86901; 87040; 87045; 87070; 87086; 87106; 87177; 87205; 87340; 87493; 87529; 87641; 87804; 87880; 89051; 93005; 93306; 94002; 94003; 94640; 94660; 94760; 95816; 96365; 96375; 97168; A4215; C1769; C1892; G0480; J0133; J0171; J0330; J0461; J0610; J0692; J0696; J0878; J0881; J1630; J1956; J2020; J2185; J2248; J2543; J2704; J3010; J3370; J3475; J3480; J3490; J7030; J7040; J7620; P9046; 92526; 92610; 97110; 97116; 97530; 97535; 99291-25